=== PATIENT | male | born 1930 | race Asian ===

== ENCOUNTER 2020-08-02 21:22 | Inpatient (IN) | payer MEDICARE, OTHER ==
[~2020-08-02] VITALS: Ht 162.6 cm; Wt 66.7 kg
--- NOTE | 2020-08-02 00:56 | NUR ---
NURSE NOTES: received pt from Halima ARGUELLES., pt is awake and drowsy at this time. AOx1. provided new gown, new blanket. bus driver/monitor is on, pt shows SR at this time. pt is on 6L of non-breather mask O2sat is at 100%.AC 18G right wrist 20G, left AC 22G intact, clean, and patent. ABD soft, round, and non-tender. springer cath is draining well with gravity, no active bleeding noted. call light within reach. will continue to monitor pt with plan of care. bed at the lowest position, alarmed, and locked. Addendum: 08/03/20 at 0752 by SVETLANA LEAL RN wrong time
--- NOTE | 2020-08-02 21:30 | NUR ---
ED Nurse Note: Patient brought in by ambulance RA 26 from [facility] with c/o desaturation at 89%. Pt placed on NRB at 10L upon coming in satting 98% and was warm to touch. Patient has IV access left hand g22 inserted by EMS. Patient is AAOX0, with FCTUB, pt reponds to pain. Pt has no polst, no covid test done recently. Patient placed on iso/monitor bed.
--- NOTE | 2020-08-02 21:37 | Emergency Room Report ---
History of Present Illness General Chief Complaint: Dyspnea/Respdistress Source: EMS (Tai Piña MD) Present Illness HPI Disclaimer: Please note that this report is being documented using [employer] technology. This can lead to erroneous entry secondary to incorrect inter pretation by the dictating instrument. HPI: 89-year-old male presents from [facility] for evaluation of hypoxia. History of BPH, hypertension, Parkinson's, anemia, chronic urinary retention. Patient found hypoxic saturating in the 80s with increased work of breathing. Per PMD, tested negative for COVID-19 on 07/23. Cannot obtain any information from patient at this time. He was placed on nonrebreather 15 L by EMS improved saturations. Noted fever at nursing facility 101 degrees. He is warm to the touch. No vomiting reported. PMH: Parkinson's, BPH, hypertension, anemia PSH: Unable to obtain from patient Allergies: Unable to obtain from patient Social Hx: Unable to obtain from patient (Tai Piña MD) Allergies: Coded Allergies: No Known Allergies (Unverified , 08/02/20) COVID-19 Screening Contact w/high risk pt: Yes Experienced COVID-19 symptoms?: Yes COVID-19 Testing performed PRESS OPERATOR MEAT: No - unk COVID-19 Screening: PUI COVID-19 COVID-19 Testing Source: unk (Tai Piña MD) Review of Systems All Other Systems: negative except mentioned in HPI (Tai Piña MD) Physical Exam Vital Signs Date Time Temp Pulse Resp B/P (MAP) Pulse Ox O2 Delivery O2 Flow Rate FiO2 08/02/20 21:26 100.0 98 22 105/62 (76) 89 Room Air General: Awake, lethargic, nonverbal, arrives on nonrebreather HEENT: NC/AT. EOMI. Cardiovascular: Tachycardic Resp: Tachypnea mild increased work of breathing. Saturating 1% on 15 L nonrebreather. Abdomen: Abdomen is soft, nondistended. : Presents with Overton catheter Skin: Intact. No abrasions, laceration or rash over the exposed skin MSK: Frail appearing. Decreased bulk diffusely Neuro: Awake, somnolent and lethargic (Tai Piña MD) Medical Decision Making Diagnostic Impression: Primary Impression: Hypoxia Additional Impressions: Pneumonia UTI (urinary tract infection) Sepsis AMS (altered mental status) ER Course Is an 89-year-old male presenting for evaluation of hypoxia. Differential includes was not limited to pneumonia, bronchitis, pneumothorax, sepsis, COVID-1 9 infection, influenza, UTI, pyelonephritis, obstruction, among others. Broad labs, cultures ordered. IV fluids, rapid COVID-19 and influenza swabs as well as chest imaging. Patient will require admission. Called nursing facility, they have no POLST form for the patient and therefore is considered a full code. EKG on arrival is nonischemic. Chest x-ray concerning for right lower lobe pneumonia. Broad spectrum antibiotics given. Patient will be admitted to SDU by this PMD, Dr. Herman. (Tai Piña MD) ER Course Total critical care time: Approximately 45 minutes Due to a high probability of clinically significant, life threatening deterioration, the patient required the highest level of preparedness to intervene emergently and I personally spent this critical care time directly and personally managing the patient. This critical care time included obtaining a history, examining the patient, pulse oximetry, ordering and reviewing studies, ordering treatments, evaluating response to treatment and updating management plan as needed, frequent reassessment and discussion with other providers as well as arranging for ultimate disposition. This critical to care time was performed to assess and manage the high probability of life-threatening deterioration that could result in multiorgan failure. This critical care time is separate from the separately billable procedures and treating other patients. 89-year-old male here with hypoxia and low blood pressure. Patient was signed o ut to me by previous physician Dr. Piña. Patient initially had a low blood pressure with map of around 55. 30 cc/kg fluid bolus was initiated. Patient soon had resolution of his hypotension and tachycardia. He was found to have a right lower lobe pneumonia. He was also found to have urinary tract infection. Vancomycin and Zosyn were started soon after arrival to the emergency department. Blood cultures obtained and currently pending. Urine cultures pending. Patient was found of a leukocytosis. He had a normal oxygen saturation on 10 L nonrebreather. Throughout his stay in the emergency department he gradually had improvement of his mental status. Patient admitted to stepdown unit. Laboratory Tests Test 08/02/20 21:30 08/02/20 21:45 08/02/20 22:15 Arterial Blood pH 7.397 (7.350-7.450) Arterial Blood Partial Pressure CO2 43.7 mmHg (35.0-45.0) Arterial Blood Partial Pressure O2 283.3 mmHg (75.0-100.0) H Arterial Blood HCO3 26.3 mmol/L (22.0-26.0) H Arterial Blood Oxygen Saturation 99.3 % (95-100) Arterial Blood Base Excess 1.2 (-2-2) Emile Test Positive Urine Color Yellow Urine Appearance Very cloudy Urine pH 6 (4.5-8.0) Urine Specific [place] 1.015 (1.005-1.035) Urine Protein 3+ (NEGATIVE) H Urine Glucose (UA) Negative (NEGATIVE) Urine Ketones 1+ (NEGATIVE) H Urine Blood 5+ (NEGATIVE) H Urine Nitrite Negative (NEGATIVE) Urine Bilirubin 1+ (NEGATIVE) H Urine Ictotest Negative (NEGATIVE) Urine Urobilinogen 8 MG/DL (0.0-1.0) H Urine Leukocyte Esterase 3+ (NEGATIVE) H Urine RBC Tntc /HPF (0 - 0) H Urine WBC 10-15 /HPF (0 - 0) H Urine Squamous Epithelial Cells Occasional /LPF Urine Bacteria Moderate /HPF (NONE) H Sodium Level 127 MMOL/L (136-145) L Potassium Level 4.4 MMOL/L (3.5-5.1) Chloride Level 95 MMOL/L (98-107) L Carbon Dioxide Level 28 MMOL/L (21-32) Anion Gap 4 mmol/L (5-15) L Blood Urea Nitrogen 30 mg/dL (7-18) H Creatinine 1.0 MG/DL (0.55-1.30) Estimated Glomerular Filtration Rate > 60 mL/min (>60) Glucose Level 165 MG/DL (74-106) H Lactic Acid Level 1.90 mmol/L (0.4-2.0) Calcium Level 8.3 MG/DL (8.5-10.1) L Phosphorus Level 3.2 MG/DL (2.5-4.9) Magnesium Level 2.0 MG/DL (1.8-2.4) Ferritin 382 NG/ML (8-388) Total Bilirubin 0.6 MG/DL (0.2-1.0) Aspartate Amino Transferase (AST) 18 U/L (15-37) Alanine Aminotransferase (ALT) 9 U/L (12-78) L Alkaline Phosphatase 70 U/L (46-116) Lactate Dehydrogenase 195 U/L (81-234) Total Creatine Kinase 49 U/L (26-308) Creatine Kinase MB 0.5 NG/ML (0.0-3.6) Creatine Kinase MB Relative Index 1.0 Troponin I 0.049 ng/mL (0.000-0.056) C-Reactive Protein, Quantitative 6.7 mg/dL (0.00-0.90) H Pro-B-Type Natriuretic Peptide 199 pg/mL (0-125) H Total Protein 7.1 G/DL (6.4-8.2) Albumin 2.8 G/DL (3.4-5.0) L Globulin 4.3 g/dL Albumin/Globulin Ratio 0.7 (1.0-2.7) L Lipase 91 U/L (73-393) White Blood Count 16.1 K/UL (4.8-10.8) H Red Blood Count 3.90 M/UL (4.70-6.10) L Hemoglobin 12.1 G/DL (14.2-18.0) L Hematocrit 36.3 % (42.0-52.0) L Mean Corpuscular Volume 93 FL (80-99) Mean Corpuscular Hemoglobin 31.0 PG (27.0-31.0) Mean Corpuscular Hemoglobin Concent 33.3 G/DL (32.0-36.0) Red Cell Distribution Width 12.1 % (11.6-14.8) Platelet Count 278 K/UL (150-450) Mean Platelet Volume 7.6 FL (6.5-10.1) Neutrophils (%) (Auto) % (45.0-75.0) Lymphocytes (%) (Auto) % (20.0-45.0) Monocytes (%) (Auto) % (1.0-10.0) Eosinophils (%) (Auto) % (0.0-3.0) Basophils (%) (Auto) % (0.0-2.0) Neutrophils % (Manual) Pending Lymphocytes % (Manual) Pending Platelet Estimate Pending Platelet Morphology Pending Prothrombin Time 12.0 SEC (9.30-11.50) H Prothrombin Time INR 1.1 (0.9-1.1) Activated Partial Thromboplast Time 27 SEC (23-33) D-Dimer 1.89 mg/L FEU (0.00-0.49) H Microbiology Date/Time Source Procedure Growth Status 08/02/20 21:44 Nasopharynx SARS-CoV-2 RdRp Gene Assay - Final Complete (Kayden Galicia M.D.) EKG Diagnostic Results Troponin ordered: Yes When was troponin ordered?: Aug 02, 2020 EKG Time: 21:28 Rate: tachycardiac Rhythm: NSR ST Segments: no acute changes Other Impression Sinus tachycardia, normal axis, normal intervals, QTC 439 ms. Nonspecific T wave flattening. No ST elevation (Tai Piña MD) Rhythm Strip Diag. Results Rhythm Strip Time: 21:28 EP Interpretation: yes Rate: 98 Rhythm: NSR, no PVC's, no ectopy (Tai Piña MD) Chest X-Ray Diagnostic Results Chest X-Ray Diagnostic Results : Chest X-Ray Ordered: Yes # of Views/Limited/Complete: 1 View Indication: Shortness of Breath EP Interpretation: Yes Interpretation: no effusion, no pneumothorax, other - Right lower lobe infiltrate consistent with pneumonia. No effusion or pneumothorax Impression: Other - Right lower lobe pneumonia Electronically Signed by: Electronically signed by Dr. Tai Piña MD (Tai Piña MD) Last Vital Signs Date Time Temp Pulse Resp B/P (MAP) Pulse Ox O2 Delivery O2 Flow Rate FiO2 08/02/20 21:26 100.0 98 22 105/62 (76) 89 Room Air (Tai Piña MD) Disposition: ADMITTED INPATIENT Condition: Serious Tai Piña MD Aug 02, 2020 21:37 Kayden Galicia M.D. Aug 02, 2020 23:11
--- NOTE | 2020-08-02 21:43 | NUR ---
Spoke with BLANE Burton at [facility]; Josephine has no polst for pt, does not have covid resut. Per Josephine, covid and flu was collected 08/02, pending results. Josephine will fax over NOV.
[2020-08-02] MEDS ORDERED: Acetaminophen 650 MG SUPP RECTAL ONE (21:45)
[2020-08-02] MEDS ORDERED: Piperacillin/Tazobactam 3.375 GM in NS 110 ML IVPB ONE (21:45)
[2020-08-02 22:00] VITALS: BP 102/62
[2020-08-02] MEDS ORDERED: Vancomycin 1 GM in NS 275 ML IVPB ONE (22:00)
--- NOTE | 2020-08-02 22:00 | NUR ---
ED Nurse Note: Blood, culture and swab sent to lab
[2020-08-02] MEDS ORDERED: MULTIVITAMINS1 EAC2 ORAL (22:02)
[2020-08-02] MEDS ORDERED: NAMENDA10 MG ORAL (22:03)
[2020-08-02] MEDS ORDERED: PROSCAR5 MG ORAL (22:03)
[2020-08-02] MEDS ORDERED: SINGULAIR10 MG ORAL (22:04)
[2020-08-02] MEDS ORDERED: vit d2 (22:06)
[2020-08-02] MEDS ORDERED: FLOMAX0.4 MG ORAL (22:07)
[2020-08-02] MEDS ORDERED: SPIRONOLACTONE50 MG ORAL (22:07)
[2020-08-02 22:08] LABS: ANION GAP 4 mmol/L (5-15); BLOOD UREA NITROGEN 30 mg/dL (7-18); CALCIUM 8.3 MG/DL (8.5-10.1); CARBON DIOXIDE 28 MMOL/L (21-32); CHLORIDE 95 MMOL/L (98-107); POTASSIUM 4.4 MMOL/L (3.5-5.1); SODIUM 127 MMOL/L (136-145)
[2020-08-02] MEDS ORDERED: VITAMIN C250 MG ORAL (22:08)
--- NOTE | 2020-08-02 22:08 | Diagnostic Imaging Report ---
EXAM: XR Chest, 1 View CLINICAL HISTORY: SOB TECHNIQUE: Frontal view of the chest. COMPARISON: No relevant prior studies available. FINDINGS: Lungs: Right lower lobe consolidation consistent with pneumonia. Calcified granulomas at the left mid and upper lung measuring up to 5 mm. Pleural space: Unremarkable. No pneumothorax. Heart: Unremarkable. No cardiomegaly. Mediastinum: Unremarkable. Bones/joints: Degenerative changes in the thoracic spine. IMPRESSION: Right lower lobe pneumonia.
[2020-08-02] MEDS ORDERED: ACETAMINOPHEN500 M5 ORAL (22:10)
[2020-08-02] MEDS ORDERED: SENOKOT8.6 MG PO (22:12)
[2020-08-02] MEDS ORDERED: DOCUSATE SODIU100 MG ORAL (22:12)
[2020-08-02 22:13] LABS: APPEARANCE,URINE VERY CLOUDY; BILIRUBIN, URINE 1+ (NEGATIVE); GLUCOSE, URINE (UA) NEGATIVE (NEGATIVE); KETONES,URINE 1+ (NEGATIVE); LEUKOCYTE ESTERASE ,URINE 3+ (NEGATIVE); NITRITE,URINE NEGATIVE (NEGATIVE); PH,URINE 6 (4.5-8.0); PROTEIN,URINE 3+ (NEGATIVE); UROBILINOGEN,URINE 8 MG/DL (0.0-1.0)
--- NOTE | 2020-08-02 22:15 | NUR ---
ED Nurse Note: Xray done
[2020-08-02 22:19] LABS: COLOR,URINE YELLOW
[2020-08-02 22:20] LABS: ALANINE AMINOTRANSFERASE 9 U/L (12-78); ALBUMIN 2.8 G/DL (3.4-5.0); ALBUMIN/GLOBULIN RATIO 0.7 (1.0-2.7); ALKALINE PHOSPHATASE 70 U/L (46-116); ASPARTATE AMINO TRANSFERASE 18 U/L (15-37); BILIRUBIN,TOTAL 0.6 MG/DL (0.2-1.0); CKMB 0.5 NG/ML (0.0-3.6); CREATINE KINASE 49 U/L (26-308); FERRITIN 382 NG/ML (8-388); LACTATE DEHYDROGENASE 195 U/L (81-234); PHOSPHORUS 3.2 MG/DL (2.5-4.9)
[2020-08-02 22:33] LABS: HEMATOCRIT 36.3 % (42.0-52.0); HEMOGLOBIN 12.1 G/DL (14.2-18.0); MEAN CORPUSCULAR VOLUME 93 FL (80-99); PLATELET COUNT 278 K/UL (150-450); RED CELL DISTRIBUTION WIDTH 12.1 % (11.6-14.8); WHITE BLOOD COUNT 16.1 K/UL (4.8-10.8)
--- NOTE | 2020-08-02 22:45 | NUR ---
ED Nurse Note: Levophed on hold by MICHELLE. Bp at 102/62
[2020-08-02 22:54] LABS: INR 1.1 (0.9-1.1)
--- NOTE | 2020-08-02 23:07 | NUR ---
Report given to BLANE Feliciano for continuity of care.
--- NOTE | 2020-08-02 23:08 | NUR ---
ED Nurse Note: Spoke to pts grand daughter LORNEA and gave an update
--- NOTE | 2020-08-02 23:56 | NUR ---
NURSE NOTES: received pt from Halima ARGUELLES., pt is awake and drowsy at this time. AOx1. provided new gown, new blanket. planer chain offbearer is on, pt shows SR at this time. pt is on 6L of non-breather mask O2sat is at 100%.AC 18G right wrist 20G, left AC 22G intact, clean, and patent. ABD soft, round, and non-tender. springer cath is draining well with gravity, no active bleeding noted. call light within reach. will continue to monitor pt with plan of care. bed at the lowest position, alarmed, and locked.
[2020-08-03] VITALS: BP 99/48
[2020-08-03] MEDS ORDERED: ADVAIR HFA 230-12 GM INH (00:30)
[2020-08-03] MEDS ORDERED: BISACODYL5 MG RECTAL (00:30)
[2020-08-03] MEDS ORDERED: SINEMET 25-1001 EAC1 ORAL (00:30)
--- NOTE | 2020-08-03 00:30 | NUR ---
NURSE NOTES: left voice mail to Dr. Herman regarding admission order. will wait for call back.
--- NOTE | 2020-08-03 00:42 | NUR ---
NURSE NOTES: spoke with Chapin ARGUELLES., from [facility], and cleared PNA and flu shot.
[2020-08-03] MEDS: Albuterol/Ipratropium 3ml neb HHN SCH ×4 (01:15→19:52)
[2020-08-03] MEDS ORDERED: Acetaminophen 650 MG SUPP RECTAL PRN (01:15)
--- NOTE | 2020-08-03 03:00 | Consultation ---
DATE OF CONSULTATION: 08/02/2020 CARDIOLOGY CONSULTATION CONSULTING PHYSICIAN: Sarkis Herman MD REQUESTING PHYSICIAN: Chavez Gilmore MD REASON FOR CONSULTATION: Shock. HISTORY OF PRESENT ILLNESS: This 89-year-old male, who resides at a halfway facility was noted to be short of breath and transported to the emergency room for evaluation by 911. The patient was hypoxic and apparently had been well until this evening. Under routine COVID-19 testing, the patient was found negative approximately 1 week ago. In the emergency room, the patient was noted to be febrile and hypotensive. He was placed on high-flow oxygen mask, pancultured, started on antimicrobials and volume resuscitated with pressor support on standby. I have been asked to assist with further cardiovascular care. PAST MEDICAL HISTORY: Includes cerebrovascular disease, dementia, Parkinson disease, chronic anemia, hypertension, prostatic hypertrophy, history of urinary retention, osteoarthritis. ALLERGIES: None. MEDICATIONS: Reviewed and reconciled. FAMILY HISTORY: Not known. SOCIAL HISTORY: No prior record of smoking, alcohol, or substance abuse. Presently, resides at a halfway facility. No advanced directives available. REVIEW OF SYSTEMS: Cannot be reliably obtained from the patient. Pertinent data from halfway home charts are reviewed and outlined above. The case was also reviewed with staff at the halfway facility. PHYSICAL EXAMINATION: VITAL SIGNS: Temperature 100 rectally, blood pressure 105/62, heart rate 98, respiratory 22, oxygen saturation on room air was 89%. HEENT: Conjunctiva pink. Sclerae are anicteric. Oropharynx clear. Mucous membranes dry. NECK: Supple. Accessory muscle use noted. LUNGS: With bilateral rhonchi. No wheezing. Scattered rales at the right. CARDIAC: Regular rhythm. Rapid rate. Normal S1, S2. There is no appreciable murmur, but exam is limited due to respiratory sounds. ABDOMEN: Soft, nontender. EXTREMITIES: No clubbing, cyanosis. No edema. Overton catheter intact. SKIN: Without rash or decubitus. NEUROLOGIC: Reveals him to be alert, withdrawn, lethargic with increased tone and rigidity. LABORATORY DATA: ABG 7.40, 44, 283 on a high-flow mask. Urinalysis with too numerous to count red cells, 10 to 15 white cells, and 3+ leukocyte esterase. Sodium 127, potassium 4.4, chloride 95, bicarb 28, BUN 30, creatinine 1, glucose 165. Lactic acid normal at 1.9. Magnesium 2.0. Troponin 0.049. White count is 16.1 and hemoglobin 12.1 with platelet count of 278,000. Chest x-ray, right lower lobe infiltrate and EKG with sinus tachycardia, nonspecific T-wave changes. COVID-19 swab is negative. IMPRESSION: 1. Acute respiratory failure with hypoxia. 2. Healthcare-associated pneumonia. 3. Complicated urinary tract infection with chronic indwelling Overton catheter. 4. Sepsis with shock. 5. Hyponatremia. 6. Hypovolemia. 7. Underlying cerebrovascular disease with aspiration risk. 8. Acute myocardial ischemia. 9. Sinus tachycardia. 10. Hypoxia. 11. History of Parkinson disease. 12. Prostatic hypertrophy with chronic urinary retention. Condition, critical. Prognosis is guarded. PLAN: 1. Additional volume resuscitation with isotonic saline. If blood pressure parameters failed to respond adequately, pressors can be considered. 2. Panculture. 3. Respiratory hygiene. 4. Broad-spectrum antimicrobials. 5. DVT prophylaxis. 6. Oxygenation with high-flow mask and taper as able. 7. Hold diuretics. 8. We will follow serial troponin levels have been ordered as well. Sarkis Herman M.D. DR: KENZIE JOB#: [id number] CC:
[2020-08-03 04:00] VITALS: BP 148/88
[2020-08-03] MEDS: Piperacillin/Tazobactam 3.375 GM in NS 110 ML IVPB SCH ×3 (05:35→21:15)
[2020-08-03 05:55] LABS: HEMATOCRIT 37.4 % (42.0-52.0); MEAN CORPUSCULAR VOLUME 99 FL (80-99); PLATELET COUNT 257 K/UL (150-450); RED CELL DISTRIBUTION WIDTH 12.4 % (11.6-14.8); WHITE BLOOD COUNT 20.3 K/UL (4.8-10.8)
--- NOTE | 2020-08-03 06:12 | NUR ---
NURSE NOTES: left voice mail to DR. Herman regarding bilateral soft wrist restrain order. pt is pulling out all the IVs, and venturi mask at this time. call light within reach. will continue to monitor pt.
[2020-08-03 06:47] LABS: ALANINE AMINOTRANSFERASE 16 U/L (12-78); ALBUMIN 2.4 G/DL (3.4-5.0); ALBUMIN/GLOBULIN RATIO 0.6 (1.0-2.7); ALKALINE PHOSPHATASE 64 U/L (46-116); ANION GAP 7 mmol/L (5-15); ASPARTATE AMINO TRANSFERASE 23 U/L (15-37); BILIRUBIN,TOTAL 0.5 MG/DL (0.2-1.0); BLOOD UREA NITROGEN 24 mg/dL (7-18); CARBON DIOXIDE 26 MMOL/L (21-32); CHLORIDE 101 MMOL/L (98-107); SODIUM 134 MMOL/L (136-145)
--- NOTE | 2020-08-03 07:00 | NUR ---
NURSE NOTES: left voice mail to Dr. Barton regarding elevated WBC 10.3 sodium 134 calcium 8.0 and pt output was only 200ml per shift superintendent caustic cresylate. made Dr. Barton aware bladder scan done and shows 170ml. also will wait for restrain order. call light within reach.,
--- NOTE | 2020-08-03 07:32 | NUR ---
NURSE HAND-OFF REPORT: Important Events on Shift:[elevated WBC, pt's disruptive action, low urine output, ST eval today] Patient Status: [stable] Diet: [per doc order] Pending Orders: [stable] Pending Results/Labs:[n/a] Pending MD notification:[n/a] Latest Vital Signs: Temperature 97.8 , Pulse 101 , B/P 148 /88 , Respiratory Rate 18 , O2 SAT 100 , Non-Rebreather, O2 Flow Rate 8.0 . Vital Sign Comment: [stable] EKG Rhythm: Sinus Tachycardia Rhythm change?: N MD Notified?: -Dr.Kattan KURTZ Response: Latest José Fall Score: 75 Fall Risk: High Risk Safety Measures: Call light Within Reach, Bed Alarm Zone 3, Side Rails Side Rails x3, Bed position Low and Locked. Fall Precautions: Yellow Socks Yellow Gown Door Sign Patient Fall Education Report given to [Mitchell ARGUELLES].
--- NOTE | 2020-08-03 07:33 | NUR ---
NURSE NOTES: Received report from Germaine Gutierres RN. Patient in bed resting, no active s/s cardiac, respiratory distress noticed at this time. Patient AOx0, restlessness, confused. Patient SR with HR 86. Patient on venturi mask 8L fio2 40%. Pending ST evaluation at this time. Patient on Overton Catheter, patient is pulling Overton Cath. IV on right AC 18G, asymptomatic, patent, intact. Endorsed need of sputum collection. Bed in lowest position, side rails upx3, call light within reach, bed alarm on, Will continue to monitor.
--- NOTE | 2020-08-03 07:41 | NUR ---
NURSE NOTES: Patient pulled out IVs, oxygen, pulling Overton. Per Dr. Gilmore, bilateral soft wrist restraints on. Order noted, entered, carried out. Cap refill <3 sec, able to move, patient restlessness, unable to follow command.
--- NOTE | 2020-08-03 07:56 | NUR ---
NURSE NOTES: Dr. Gilmore made aware of elevation of troponin today 0.049 to 0.057. No new order received at this time. Will continue to monitor.
[2020-08-03 08:00] VITALS: BP 118/68
[2020-08-03] MEDS: Levodopa/Carbidopa 25/100 tab ORAL SCH ×3 (08:21→17:01)
[2020-08-03] MEDS: Heparin 5000 units/ml inj SUBQ SCH ×2 (08:21→20:16)
--- NOTE | 2020-08-03 08:49 | NUR ---
RD ASSESSMENT & RECOMMENDATIONS SEE CARE ACTIVITY FOR COMPLETE ASSESSMENT DAILY ESTIMATED NEEDS: Needs based on Underweight, pulmonary/ 45kg 30-35 kcals/kg 1447-4957 total kcals 1-1.5 g protein/kg 45-68 g total protein 25-30 mL/kg 0092-0765 total fluid mLs NUTRITION DIAGNOSIS: Increased kcal/prot needs R/T underweight status, pulmonary status as evidenced by pt @ 73% IBW, w/ BMI of 16.5, low BMI per guidelines, h/o COPD, on venturi mask. CURRENT DIET:KATIE, pureed moist PO DIET RECOMMENDATIONS: Liberalized regular w/ poor PO (texture per TAX MAP TECHNICIAN) ADDITIONAL RECOMMENDATIONS: * Wt @ SNF on 07/2948=[id number], vs current EMR wt of 99lbs suspected recent wt loss? -> rec daily calibrated bedscale wt, monitor wt trend * Ensure Enlive TID w/ meals * MVI x 1 * Monitor PO intake and tolerance, consider appetite stimulant
--- NOTE | 2020-08-03 10:50 | NUR ---
NURSE NOTES: COVID 2nd swab done, sent to lab per Dr. Gilmore.
[2020-08-03 12:00] VITALS: BP 131/59
--- NOTE | 2020-08-03 13:15 | NUR ---
NURSE NOTES: Patient restlessness, unable to follow command, high risk of aspiration, PO med not given.
--- NOTE | 2020-08-03 15:04 | NUR ---
NURSE NOTES: Paged Dr. Herman regarding 23 beats of NSVT, awaiting for callback. BP 109/52 HR 96, no s/s cardiac, respiratory distress noticed at this time, Will continue to monitor.
--- NOTE | 2020-08-03 15:10 | NUR ---
NURSE NOTES: Patient c/o full bladder, Overton Catheter removed and replaced per Dr. Gilmore.
[2020-08-03 16:00] VITALS: BP 109/52
--- NOTE | 2020-08-03 16:38 | NUR ---
Speech Pathology Note (Bedside Dysphagia Evaluation) Recent History: 07/23/2020~07/28/2020: (Hospitalization at [facility]) 1. Progressive decline in function with aspiration signs with thin liquid and failure to thrive Video swallow and Video esophagram: " premature spillage to pyriform sinuses and penetration to the level of true vocal folds noted 2. 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 3. UTI 07/28/2020~08/02/2020: ([facility]): PO diet mechanical soft chopped and thin liquid diet Brief Note: Mr. Zarate is an 89 year old male presents with dyspnea at [facility] and subsequently taken to ED [facility] on 08/02/2020. He was found to be concerning for aspiration pneumonia with hypoxemia 89% ORA, leukocytosis 16k, CXR RLL infiltrate with dysphagia as described in videoesophagram report from [facility]. This hospital course, the leukocytosis elevated to 20k, with higher O2 support required. Findings: Mr. Zarate is alert and presents with disorientation. He follows simple commands. Given him PO with pureed, nectar thick, he had delay cough. On thin liquid, he coughed immediately. He is high risk of aspiration. 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 This could be one of source of progressive dysphagia with aspiration as well as PD. Addendum: 08/03/20 at 1658 by MJ OLIVA MILL TENDER WARM UP 1. moderate to severe oropharyngeal dysphagia - High aspiration risk Plan: NPO for now until he recovers from aspiration pneumonia with concerning septic shock Mj Oliva
--- NOTE | 2020-08-03 17:01 | NUR ---
NURSE NOTES: Per ST Gabriel, unsafe to administer PO med, PO med on hold.
--- NOTE | 2020-08-03 18:00 | History and Physical Report ---
DATE OF ADMISSION: 08/02/2020 CHIEF COMPLAINT: Shortness of breath. HISTORY OF PRESENT ILLNESS: The patient is an 89-year-old male with a history of hypertension, dementia, recurrent urinary tract infections, and falls. The [facility] with complaints of shortness of breath. The patient is currently confused and is unable to provide any history. He was apparently hospitalized at an outside hospital a week ago after a fall and urinary tract infection. He had been [facility]cing at a [facility] for several days, but developed worsening shortness of breath and was transferred to the emergency room. On evaluation there, he required a Venturi mask for hypoxemia. His x-ray showed right lower lobe pneumonia. His rapid COVID test was negative. He is now admitted for further evaluation and care. PAST MEDICAL HISTORY: As above. PAST SURGICAL HISTORY: Unknown. CURRENT MEDICATIONS: Reconciled and reviewed. ALLERGIES: None. FAMILY HISTORY: Unknown. SOCIAL HISTORY: There is no known history of tobacco, ethanol, or drugs. REVIEW OF SYSTEMS: From the patient is unobtainable as he is confused. PHYSICAL EXAMINATION: VITAL SIGNS: Temperature 98, pulse 73, respirations 20, and blood pressure 118/68. The patient is saturating 100% on 8 liters of Venturi mask. GENERAL: The patient is thin, elderly, in no apparent distress. HEENT: Head is normocephalic and atraumatic. Sclerae are anicteric. Oropharynx is clear. Mucous membranes are dry. NECK: Supple. HEART: Regular rate and rhythm. LUNGS: Significant for scattered rhonchi. ABDOMEN: Soft, nontender, nondistended. EXTREMITIES: Without clubbing, cyanosis, or edema. NEUROLOGIC: The patient is unable to comply with neurologic exam. LABORATORY DATA: UA showed 10 to 15 wbc's. White count was 16,000. Sodium was 127, potassium 4.4. Troponin was 0.057. UA showed 15 wbc's. ASSESSMENT: This is an 89-year-old male with a history of dementia, hypertension, recurrent falls, and urinary tract infection, admitted with complaints of hypoxemia, suspect secondary to aspiration. PLAN: 1. Supplemental oxygen. 2. Broad spectrum IV antibiotics. 3. Monitor chest x-ray. 4. Repeat COVID PCR. 5. Cardiology, Pulmonary, and Infectious Disease consultations to be obtained. 6. Continue outpatient cardiac regimen. 7. Continue DVT and stress prophylaxes. 8. Plan of care was discussed with the patient's family. Chavez Gilmore M.D. DR: RAZIA JOB#: [id number] CC:
--- NOTE | 2020-08-03 19:11 | NUR ---
NURSE HAND-OFF REPORT: Important Events on Shift: Overton inserted, Patient pulled out IV x3, Soft wrist restraints, 23 beats of NSVT, Made aware Patient Status: stable Diet: Low Sodium diet, per ST NPO recommended Pending Orders: na Pending Results/Labs:na Pending notification:na Latest Vital Signs: Temperature 98.6 , Pulse 99 , B/P 109 /52 , Respiratory Rate 17 , O2 SAT 100 , Venturi Mask, O2 Flow Rate 8.0 . Vital Sign Comment: stable EKG Rhythm: Sinus Rhythm Rhythm change?: N MD Notified?: -Dr.Kattan KURTZ Response: Latest José Fall Score: 75 Fall Risk: High Risk Safety Measures: Call light Within Reach, Bed Alarm Zone 2, Side Rails Side Rails x3, Bed position Low and Locked. Fall Precautions: Yellow Socks Yellow Gown Door Sign Patient Fall Education Report given to BLANE Caban.
--- NOTE | 2020-08-03 19:52 | NUR ---
NURSE NOTES: unable to swallow medication- Flomax not administered- per endorsement- speech therapist recommends pt. to be NPO.
[2020-08-03 20:00] VITALS: BP 116/59
[2020-08-03] MEDS: Tamsulosin 0.4mg cap ORAL SCH (20:15)
[2020-08-03] MEDS: Vancomycin 1gm/D5W 275ml IVPB SCH ×2 (21:15)
--- NOTE | 2020-08-03 21:34 | NUR ---
NURSE NOTES: Received report from Milagros Elias, pt. in bed awake, with eyes open- appears to be confused, no signs or symptoms of acute cardiac or respiratory distress noted, bed alarm on, side rails up x's3 and safety brakes engaged, call light within easy reach, pt. appears to be sating well on current Venturi mask settings 8L fio2 at 40%- no distress noted, Overton intact and draining to gravity, pt. appears clean and dry, bilateral soft restraints removed- pulses palpable and skin intact- restraints reapplied, Rt. hand 22G IV intact and patent, safety measures continued, will continue with plan of care. Addendum: 08/04/20 at 1935 by CYNTHIA SERNA RN RN received report at 1917.
--- NOTE | 2020-08-03 23:30 | NUR ---
NURSE NOTES: bed bath given and linen changed, oral care provided, pt. appears to be sating well on current venturi mask settings-no distress noted, repositioned and turned pt., will continue to monitor pt. and with plan of care.
--- NOTE | 2020-08-03 23:56 | Cardiology Progress Note ---
Subjective DATE OF SERVICE: Aug 03, 2020 Still congested with SOB. Very confused. Labs noted. Monitor: sinus with non-sustained atrial ectopy. Objective Last 24 Hour Vital Signs Date Time Temp Pulse Resp B/P (MAP) Pulse Ox O2 Delivery O2 Flow Rate FiO2 08/03/20 20:34 101 08/03/20 20:00 98.1 88 18 116/59 (78) 100 08/03/20 20:00 8.0 40 08/03/20 20:00 Venturi Mask 8.0 08/03/20 19:52 98 Venturi Mask 8.0 40 08/03/20 19:52 101 18 100 Venturi Mask 8.0 40 99 18 98 08/03/20 16:00 98.6 63 17 109/52 (71) 100 08/03/20 16:00 99 08/03/20 16:00 8.0 40 08/03/20 16:00 Venturi Mask 8.0 08/03/20 13:10 104 20 100 Venturi Mask 8.0 40 102 20 99 08/03/20 12:00 Venturi Mask 8.0 08/03/20 12:00 97.1 103 19 131/59 (83) 99 08/03/20 12:00 97 08/03/20 12:00 8.0 40 08/03/20 09:09 87 20 100 Venturi Mask 8.0 40 84 20 99 08/03/20 08:00 100 08/03/20 08:00 8.0 40 08/03/20 08:00 98.0 73 20 118/68 (85) 100 08/03/20 08:00 Venturi Mask 8.0 08/03/20 07:02 99 Venturi Mask 8.0 40 08/03/20 04:00 8.0 40 08/03/20 04:00 Venturi Mask 8.0 08/03/20 04:00 97.8 101 18 148/88 (108) 100 08/03/20 01:31 98 Venturi Mask 8.0 40 08/03/20 00:32 77 08/03/20 00:00 Non-Rebreather 6.0 08/03/20 00:00 97.7 78 18 99/48 (65) 100 ROS: unchanged from my evaluation of 08/02/20 HEENT: normal ENT inspection RHYTHM: NSR, PACs LUNGS: bilateral rhonchi CARDIAC: normal rate, regular rhythm, normal S1 and S2, systolic murmur - 1/6 s ystolic murmurat apex ABDOMEN: normal bowel sounds, non tender, soft, no organomegaly EXTREMITIES: normal range of motion, trace edema Laboratory Tests Test 08/03/20 03:39 White Blood Count 20.3 K/UL (4.8-10.8) H Red Blood Count 3.80 M/UL (4.70-6.10) L Hemoglobin 12.0 G/DL (14.2-18.0) L Hematocrit 37.4 % (42.0-52.0) L Mean Corpuscular Volume 99 FL (80-99) Mean Corpuscular Hemoglobin 31.7 PG (27.0-31.0) H Mean Corpuscular Hemoglobin Concent 32.2 G/DL (32.0-36.0) Red Cell Distribution Width 12.4 % (11.6-14.8) Platelet Count 257 K/UL (150-450) Mean Platelet Volume 7.1 FL (6.5-10.1) Neutrophils (%) (Auto) % (45.0-75.0) Lymphocytes (%) (Auto) % (20.0-45.0) Monocytes (%) (Auto) % (1.0-10.0) Eosinophils (%) (Auto) % (0.0-3.0) Basophils (%) (Auto) % (0.0-2.0) Differential Total Cells Counted 100 Neutrophils % (Manual) 79 % (45-75) H Lymphocytes % (Manual) 2 % (20-45) L Monocytes % (Manual) 2 % (1-10) Eosinophils % (Manual) 0 % (0-3) Basophils % (Manual) 0 % (0-2) Band Neutrophils 17 % (0-8) H Platelet Estimate Adequate Platelet Morphology Normal Red Blood Cell Morphology Normal Sodium Level 134 MMOL/L (136-145) L Potassium Level 5.0 MMOL/L (3.5-5.1) Chloride Level 101 MMOL/L (98-107) Carbon Dioxide Level 26 MMOL/L (21-32) Anion Gap 7 mmol/L (5-15) Blood Urea Nitrogen 24 mg/dL (7-18) H Creatinine 1.0 MG/DL (0.55-1.30) Estimat Glomerular Filtration Rate > 60 mL/min (>60) Glucose Level 117 MG/DL (74-106) H Calcium Level 8.0 MG/DL (8.5-10.1) L Total Bilirubin 0.5 MG/DL (0.2-1.0) Aspartate Amino Transf (AST/SGOT) 23 U/L (15-37) Alanine Aminotransferase (ALT/SGPT) 16 U/L (12-78) Alkaline Phosphatase 64 U/L (46-116) Troponin I 0.057 ng/mL (0.000-0.056) Total Protein 6.5 G/DL (6.4-8.2) Albumin 2.4 G/DL (3.4-5.0) L Globulin 4.1 g/dL Albumin/Globulin Ratio 0.6 (1.0-2.7) L Thyroid Stimulating Hormone (TSH) 1.016 uiU/mL (0.358-3.740) Microbiology Date/Time Source Procedure Growth Status 08/02/20 23:15 Rectum Received 08/02/20 22:45 Nasal Nares - Final Complete 08/02/20 22:45 Nasal Nares - Final Complete 08/02/20 21:44 Nasopharynx SARS-CoV-2 RdRp Gene Assay - Final Complete Assessment/Plan Assessment/Plan Sepsis Healthcare acquired PNA Complicated UTI with indwelling catheter Hyponatremia Severe protein calorie malnutrition Acute myocardial ischemia Respiratory failure with hypoxia Hypovolemia Leukocytosis Sinus tachycardia CRITICAL & GUARDED Empiric antibiotics Serial troponins IVF DVT prophylaxis Saline hydration Titrate anti-anginal regimen; beta katya to be titrated once rehydrated. Sarkis Herman MD Aug 03, 2020 23:56
[2020-08-04] VITALS (8 sets, daily range): BP systolic 100–148; BP diastolic 54–75
[2020-08-04] MEDS: Albuterol/Ipratropium 3ml neb HHN SCH ×4 (01:15→19:32)
--- NOTE | 2020-08-04 02:00 | NUR ---
NURSE NOTES: oral care provided, pt. appears to be sating well on current BIPAP settings-sating at 100%, will continue to monitor pt. and with plan of care.
--- NOTE | 2020-08-04 03:45 | NUR ---
NURSE NOTES: per ophthalmic tech Araiza- rhythm strip showing SVT- heart rate 168- assessed pt.- monitor in room shows patients heart rate at 89- will do EKG- pt. is asymptomatic- no signs or symptoms of distress noted- EKG showing Sinus Tachycardia w/ short ND w/ premature supraventricular complexes- will notify MD in am- pt. remains stable- will continue to monitor pt. and with plan of care.
[2020-08-04] MEDS: Piperacillin/Tazobactam 3.375 GM in NS 110 ML IVPB SCH ×3 (05:01→21:17)
[2020-08-04 06:28] LABS: HEMOGLOBIN 11.1 G/DL (14.2-18.0); MEAN CORPUSCULAR VOLUME 96 FL (80-99); PLATELET COUNT 251 K/UL (150-450); RED BLOOD COUNT 3.53 M/UL (4.70-6.10)
[2020-08-04 07:22] LABS: ALANINE AMINOTRANSFERASE 20 U/L (12-78); ALBUMIN 2.2 G/DL (3.4-5.0); ALBUMIN/GLOBULIN RATIO 0.6 (1.0-2.7); ALKALINE PHOSPHATASE 61 U/L (46-116); ANION GAP 8 mmol/L (5-15); ASPARTATE AMINO TRANSFERASE 52 U/L (15-37); BILIRUBIN,TOTAL 0.5 MG/DL (0.2-1.0); BLOOD UREA NITROGEN 18 mg/dL (7-18); CALCIUM 7.8 MG/DL (8.5-10.1); CARBON DIOXIDE 23 MMOL/L (21-32); CHLORIDE 102 MMOL/L (98-107); CREATININE 0.7 MG/DL (0.55-1.30); POTASSIUM 3.3 MMOL/L (3.5-5.1); SODIUM 133 MMOL/L (136-145)
--- NOTE | 2020-08-04 07:26 | NUR ---
NURSE NOTES: Received report from Arsh ARGUELLES.
--- NOTE | 2020-08-04 07:31 | NUR ---
NURSE HAND-OFF REPORT: Important Events on Shift:pos SVT- EKG done - see chart ST Patient Status: fair Diet: NPO Pending Orders: Pending Results/Labs: Pending MD notification: Latest Vital Signs: Temperature 97.9 , Pulse 65 , B/P 115 /65 , Respiratory Rate 20 , O2 SAT 96 , Venturi Mask, O2 Flow Rate 8.0 . Vital Sign Comment: EKG Rhythm: Sinus Rhythm Rhythm change?: Y MD Notified?: N - MD Response: Latest José Fall Score: 75 Fall Risk: High Risk Safety Measures: Call light Within Reach, Bed Alarm Zone 2, Side Rails Side Rails x3, Bed position Low and Locked. Fall Precautions: Yellow Socks Yellow Gown Door Sign Patient Fall Education Report given to Rachael ARGUELLES, aware to f/u on any abnormal am labs- and regarding poss SVT- and EKG done but showing Sinus Tachycardia - pt. remains stable.
[2020-08-04] MEDS: Levodopa/Carbidopa 25/100 tab ORAL SCH ×3 (09:00→17:48)
[2020-08-04] MEDS: Heparin 5000 units/ml inj SUBQ SCH ×2 (09:31→20:47)
--- NOTE | 2020-08-04 09:33 | General Progress Note ---
Subjective ROS Limited/Unobtainable: Yes Constitutional: Reports: malaise, weakness HEENT: Reports: no symptoms Cardiovascular: Reports: no symptoms Respiratory: Reports: cough, shortness of breath Gastrointestinal/Abdominal: Reports: no symptoms Genitourinary: Reports: no symptoms Neurologic/Psychiatric: Reports: no symptoms Endocrine: Reports: no symptoms Hematologic/Lymphatic: Reports: no symptoms Allergies: Coded Allergies: No Known Allergies (Unverified , 08/02/20) All Systems: reviewed and negative except above Subjective no events. stable on venti mask. 2nd covid pending. labs noted. on iv abx. withdrawn/weak. Objective Last 24 Hour Vital Signs Date Time Temp Pulse Resp B/P (MAP) Pulse Ox O2 Delivery O2 Flow Rate FiO2 08/04/20 04:22 65 20 115/65 (82) 96 08/04/20 04:00 Venturi Mask 8.0 08/04/20 04:00 8.0 40 08/04/20 04:00 97.9 108 18 111/54 (73) 99 08/04/20 03:45 168 08/04/20 03:41 105 08/04/20 01:17 95 18 100 Venturi Mask 8.0 40 93 18 100 08/04/20 00:00 98.0 97 18 108/54 (72) 100 08/04/20 00:00 8.0 40 08/04/20 00:00 Venturi Mask 8.0 08/03/20 23:32 99 08/03/20 20:34 101 08/03/20 20:00 98.1 88 18 116/59 (78) 100 08/03/20 20:00 8.0 40 08/03/20 20:00 Venturi Mask 8.0 08/03/20 19:52 98 Venturi Mask 8.0 40 08/03/20 19:52 101 18 100 Venturi Mask 8.0 40 99 18 98 08/03/20 16:00 98.6 63 17 109/52 (71) 100 08/03/20 16:00 99 08/03/20 16:00 8.0 40 08/03/20 16:00 Venturi Mask 8.0 08/03/20 13:10 104 20 100 Venturi Mask 8.0 40 102 20 99 08/03/20 12:00 Venturi Mask 8.0 08/03/20 12:00 97.1 103 19 131/59 (83) 99 08/03/20 12:00 97 08/03/20 12:00 8.0 40 Intake and Output 08/03/20 08/04/20 19:00 07:00 Intake Total 1237.5 ml 1678.916 ml Output Total 800 ml 345 ml Balance 437.5 ml 1333.916 ml Intake IV Total 1237.5 ml 1678.916 ml Output Urine Total 800 ml 345 ml # Bowel Movements 2 1 Laboratory Tests 08/04/20 05:40: White Blood Count 20.0H, Red Blood Count 3.53L, Hemoglobin 11.1L, Hematocrit 34.0L, Mean Corpuscular Volume 96, Mean Corpuscular Hemoglobin 31.6H, Mean Corpuscular Hemoglobin Concent 32.7, Red Cell Distribution Width 12.0, Platelet Count 251, Mean Platelet Volume 7.6, Neutrophils (%) (Auto) , Lymphocytes (%) (Auto) , Monocytes (%) (Auto) , Eosinophils (%) (Auto) , Basophils (%) (Auto) , Differential Total Cells Counted 100, Neutrophils % (Manual) 96H, Lymphocytes % (Manual) 2L, Monocytes % (Manual) 2, Eosinophils % (Manual) 0, Basophils % (Manual) 0, Band Neutrophils 0, Platelet Estimate Adequate, Platelet Morphology Normal, Macrocytosis 1+, Sodium Level 133L, Potassium Level 3.3L, Chloride Level 102, Carbon Dioxide Level 23, Anion Gap 8, Blood Urea Nitrogen 18, Creatinine 0.7, Estimat Glomerular Filtration Rate > 60, Glucose Level 111H, Lactic Acid Level 1.30, Calcium Level 7.8L, Total Bilirubin 0.5, Aspartate Amino Transf (AST/SGOT) 52H, Alanine Aminotransferase (ALT/SGPT) 20, Alkaline Phosphatase 61, Troponin I 0.076H, Total Protein 6.1L, Albumin 2.2L, Globulin 3.9, Albumin/Globulin Ratio 0.6L Height (Feet): 5 Height (Inches): 5.00 Weight (Pounds): 99 General Appearance: WD/WN, confused, thin EENT: normal ENT inspection Neck: non-tender, normal alignment, supple Cardiovascular: normal rate, regular rhythm Respiratory/Chest: chest wall non-tender, lungs clear, normal breath sounds, no respiratory distress, no accessory muscle use Abdomen: normal bowel sounds, non tender, soft, no organomegaly Edema: no edema noted Arm (L), no edema noted Arm (R) Assessment/Plan Problem List: (1) Pneumonia ICD Codes: J18.9 - Pneumonia, unspecified organism SNOMED: 608091068 (2) Hypoxia ICD Codes: R09.02 - Hypoxemia SNOMED: 851318913 (3) AMS (altered mental status) ICD Codes: R41.82 - Altered mental status, unspecified SNOMED: 954303870 (4) UTI (urinary tract infection) ICD Codes: N39.0 - Urinary tract infection, site not specified SNOMED: 22512613 (5) Sepsis ICD Codes: A41.9 - Sepsis, unspecified organism SNOMED: 33288082 Status: stable, not improved Assessment/Plan: cont supplemental o2 titrate as needed iv abx per monitor cxr await repeat covid dvt/stress ulcer prophylaxis d/w family poc replace Chavez Mora MD Aug 04, 2020 09:33
[2020-08-04] MEDS ORDERED: NS 275ml ONE (14:26)
[2020-08-04] MEDS ORDERED: Tubing IV Secondary IV ONE (14:26)
--- NOTE | 2020-08-04 14:38 | NUR ---
NURSE NOTES: Called and spoke with Dr. Herman regarding A.fib with RVR x 1 episode non sustained with new orders to give Cardizem 20mg. IVP X 1 and bmp, mg today. Orders noted and carried out.
[2020-08-04] MEDS ORDERED: dilTIAZem HCl 25mg/5ml Inj IVP SCH ×2 (14:45→20:30)
[2020-08-04 15:55] LABS: ANION GAP 13 mmol/L (5-15); BLOOD UREA NITROGEN 18 mg/dL (7-18); CALCIUM 8.2 MG/DL (8.5-10.1); CARBON DIOXIDE 21 MMOL/L (21-32); CHLORIDE 102 MMOL/L (98-107); CREATININE 0.7 MG/DL (0.55-1.30); POTASSIUM 3.7 MMOL/L (3.5-5.1); SODIUM 136 MMOL/L (136-145)
--- NOTE | 2020-08-04 16:43 | NUR ---
NURSE NOTES: Called Dr. Gilmore and left message regarding x2 negative Covid19 result. Awaiting for response.
--- NOTE | 2020-08-04 16:46 | NUR ---
NURSE NOTES: Received a call back and ordered d/c isolation. Addendum: 08/04/20 at 1647 by LUTHER ANGUIANO RN, RN Droplet isolation.
--- NOTE | 2020-08-04 19:08 | NUR ---
NURSE HAND-OFF REPORT: Important Events on Shift: Episode of A.fib with RVR. Patient Status: remain stable. Diet: Pureed scot. Pending Orders: Pending Results/Labs: Pending MD notification: Latest Vital Signs: Temperature 98.1 , Pulse 77 , B/P 141 /72 , Respiratory Rate 19 , O2 SAT 97 , Venturi Mask, O2 Flow Rate 8.0 . Vital Sign Comment: EKG Rhythm: Sinus Rhythm Rhythm change?: N MD Notified?: Aly -Dr. Virgil KURTZ Response: Order Received& Read Back Latest José Fall Score: 75 Fall Risk: High Risk Safety Measures: Call light Within Reach, Bed Alarm Zone 2, Side Rails Side Rails x3, Bed position Low and Locked. Fall Precautions: Yellow Socks Yellow Gown Door Sign Patient Fall Education Report given to Arsh ARGUELLES.
--- NOTE | 2020-08-04 19:15 | NUR ---
NURSE NOTES: Received report from Milagros Cano, pt. in bed awake, with eyes open- appears to be confused, no signs or symptoms of acute cardiac or respiratory distress noted, bed alarm on, side rails up x's3 and safety brakes engaged, call light within easy reach, pt. appears to be sating well on current Venturi mask settings 8L fio2 at 40%- no distress noted, Overton intact and draining to gravity, pt. appears clean and dry, bilateral soft restraints removed- pulses palpable and skin intact- restraints reapplied, HOB elevated- aspiration precautions observed, Rt. hand 22G IV intact and patent running NS at 100cc/hr, safety measures continued, will continue with plan of care.
--- NOTE | 2020-08-04 19:50 | NUR ---
NURSE NOTES: unable to swallow medication- Flomax not administered- per endorsement- speech therapist recommends pt. to be NPO. Pt. at risk for aspiration.
--- NOTE | 2020-08-04 19:57 | NUR ---
NURSE NOTES: noted patients heart rate on monitor in 170's- assessed pt. - pt. appears to be asymptomatic- VS taken entered in chart. will do EKG/ f/u with
--- NOTE | 2020-08-04 19:58 | NUR ---
NURSE NOTES: EKG done- showing A fib w/RVR- will leave message for MD- will continue to monitor pt.
--- NOTE | 2020-08-04 19:59 | NUR ---
NURSE NOTES: Left detailed message for Dr. kay- also another message left by charge nurse BLANE Mendoza. Awaiting for call back from doctor.
[2020-08-04] MEDS: Tamsulosin 0.4mg cap ORAL SCH (20:00)
--- NOTE | 2020-08-04 20:21 | NUR ---
NURSE NOTES: orders received by charge nurse Kelly from doctor to do one time order of Cardizem IVP- will carry out orders.
--- NOTE | 2020-08-04 20:40 | NUR ---
NURSE NOTES: two IVs inserted for pt. as rt. hand 22G appears to be puffy-D/C IV- and inserted RT. AC 20G and RFA 20G- will continue to monitor pt. and with plan of care.
--- NOTE | 2020-08-04 20:45 | NUR ---
NURSE NOTES: Reassessed patients heart rate now 106- pt. appears to be resting comfortably- no signs or symptoms of acute distress noted. Will continue to monitor pt. and with plan of care.
[2020-08-04] MEDS: Vancomycin 1gm/D5W 275ml IVPB SCH ×2 (21:17)
--- NOTE | 2020-08-04 22:50 | NUR ---
NURSE NOTES: DR. kay calling to check pt. status- made him aware after Cardizem IVP - rhythm strip was done and pt. is A fib- asymptomatic- heart rate 122- but now on monitor is 88- per To notify him if occurs again but for now no new orders and he may put in some orders.
--- NOTE | 2020-08-04 23:30 | NUR ---
NURSE NOTES: bed bath given, linens changed, oral care provided, pt. appears to be sating well on current Venturi mask settings- sating at 96%- VS taken- pt. remains SR on monitor. Will continue to monitor pt. and with plan of care.
[2020-08-05] VITALS (7 sets, daily range): BP systolic 95–144; BP diastolic 53–85
--- NOTE | 2020-08-05 00:11 | Cardiology Progress Note ---
Subjective DATE OF SERVICE: Aug 04, 2020 Still congested with SOB. Very confused, but less agitated NPO due to aspiration risk Monitor: sinus with paroxysmal AFib with RVR Objective Last 24 Hour Vital Signs Date Time Temp Pulse Resp B/P (MAP) Pulse Ox O2 Delivery O2 Flow Rate FiO2 08/04/20 21:00 93 20 100/61 (74) 97 08/04/20 20:34 147 112/65 08/04/20 20:21 146 08/04/20 20:00 8.0 40 08/04/20 20:00 Venturi Mask 8.0 08/04/20 20:00 97.9 88 20 107/55 (72) 98 08/04/20 19:32 95 Venturi Mask 8.0 40 08/04/20 19:32 74 18 99 Venturi Mask 8.0 40 77 18 95 08/04/20 19:02 98.1 08/04/20 16:00 98.1 77 19 141/72 (95) 97 08/04/20 16:00 Venturi Mask 8.0 08/04/20 16:00 8.0 40 08/04/20 15:27 94 08/04/20 14:51 96 148/75 08/04/20 14:18 181 08/04/20 13:20 96 18 100 Venturi Mask 8.0 40 98 16 98 08/04/20 12:00 97.1 94 24 148/75 (99) 97 08/04/20 12:00 8.0 40 08/04/20 12:00 Venturi Mask 8.0 08/04/20 11:39 95 08/04/20 08:00 Venturi Mask 8.0 08/04/20 08:00 8.0 40 08/04/20 08:00 98.0 85 16 116/70 (85) 98 08/04/20 07:40 85 08/04/20 07:00 97 Venturi Mask 8.0 40 08/04/20 04:22 65 20 115/65 (82) 96 08/04/20 04:00 Venturi Mask 8.0 08/04/20 04:00 8.0 40 08/04/20 04:00 97.9 108 18 111/54 (73) 99 08/04/20 03:45 168 08/04/20 03:41 105 08/04/20 01:17 95 18 100 Venturi Mask 8.0 40 93 18 100 ROS: unchanged from my evaluation of 08/02/20 HEENT: normal ENT inspection RHYTHM: NSR, PACs LUNGS: bilateral rhonchi CARDIAC: normal S1 and S2, irregularly irregular, systolic murmur - 1/6 systolic murmurat apex, rapid rate ABDOMEN: normal bowel sounds, non tender, soft, no organomegaly EXTREMITIES: normal range of motion, trace edema Laboratory Tests Test 08/04/20 05:40 08/04/20 15:30 White Blood Count 20.0 K/UL (4.8-10.8) H Red Blood Count 3.53 M/UL (4.70-6.10) L Hemoglobin 11.1 G/DL (14.2-18.0) L Hematocrit 34.0 % (42.0-52.0) L Mean Corpuscular Volume 96 FL (80-99) Mean Corpuscular Hemoglobin 31.6 PG (27.0-31.0) H Mean Corpuscular Hemoglobin Concent 32.7 G/DL (32.0-36.0) Red Cell Distribution Width 12.0 % (11.6-14.8) Platelet Count 251 K/UL (150-450) Mean Platelet Volume 7.6 FL (6.5-10.1) Neutrophils (%) (Auto) % (45.0-75.0) Lymphocytes (%) (Auto) % (20.0-45.0) Monocytes (%) (Auto) % (1.0-10.0) Eosinophils (%) (Auto) % (0.0-3.0) Basophils (%) (Auto) % (0.0-2.0) Differential Total Cells Counted 100 Neutrophils % (Manual) 96 % (45-75) H Lymphocytes % (Manual) 2 % (20-45) L Monocytes % (Manual) 2 % (1-10) Eosinophils % (Manual) 0 % (0-3) Basophils % (Manual) 0 % (0-2) Band Neutrophils 0 % (0-8) Platelet Estimate Adequate Platelet Morphology Normal Macrocytosis 1+ Sodium Level 133 MMOL/L (136-145) L 136 MMOL/L (136-145) Potassium Level 3.3 MMOL/L (3.5-5.1) L 3.7 MMOL/L (3.5-5.1) Chloride Level 102 MMOL/L (98-107) 102 MMOL/L (98-107) Carbon Dioxide Level 23 MMOL/L (21-32) 21 MMOL/L (21-32) Anion Gap 8 mmol/L (5-15) 13 mmol/L (5-15) Blood Urea Nitrogen 18 mg/dL (7-18) 18 mg/dL (7-18) Creatinine 0.7 MG/DL (0.55-1.30) 0.7 MG/DL (0.55-1.30) Estimat Glomerular Filtration Rate > 60 mL/min (>60) > 60 mL/min (>60) Glucose Level 111 MG/DL (74-106) H 91 MG/DL (74-106) Lactic Acid Level 1.30 mmol/L (0.4-2.0) Calcium Level 7.8 MG/DL (8.5-10.1) L 8.2 MG/DL (8.5-10.1) L Total Bilirubin 0.5 MG/DL (0.2-1.0) Aspartate Amino Transf (AST/SGOT) 52 U/L (15-37) H Alanine Aminotransferase (ALT/SGPT) 20 U/L (12-78) Alkaline Phosphatase 61 U/L (46-116) Troponin I 0.076 ng/mL (0.000-0.056) Total Protein 6.1 G/DL (6.4-8.2) L Albumin 2.2 G/DL (3.4-5.0) L Globulin 3.9 g/dL Albumin/Globulin Ratio 0.6 (1.0-2.7) L Magnesium Level 2.1 MG/DL (1.8-2.4) Microbiology Date/Time Source Procedure Growth Status 08/02/20 23:15 Rectum Received 08/02/20 22:45 Nasal Nares - Final Complete 08/02/20 22:45 Nasal Nares - Final Complete 08/02/20 21:44 Nasopharynx SARS-CoV-2 RdRp Gene Assay - Final Complete Assessment/Plan Assessment/Plan Paroxysmal atrial fibrillation with RVR Aspiration risk Hypokalemia Sepsis Healthcare acquired PNA Complicated UTI with indwelling catheter Hyponatremia Severe protein calorie malnutrition Acute myocardial ischemia Respiratory failure with hypoxia Hypovolemia Leukocytosis Sinus tachycardia CRITICAL & GUARDED Empiric antibiotics Serial troponins IVF DVT prophylaxis Saline hydration Potassium replacement IV beta katya while NPO Sarkis Herman MD Aug 05, 2020 00:11
--- NOTE | 2020-08-05 01:20 | NUR ---
NURSE NOTES: Vitals taken and verified with charge nurse Milagros- Kelly- before starting Metoprolol IVPB.
[2020-08-05] MEDS: Metoprolol Tartrate 10 MG in D5W 55 ML IVPB SCH ×3 (01:27→15:31)
[2020-08-05] MEDS: Albuterol/Ipratropium 3ml neb HHN SCH ×4 (01:46→19:33)
[2020-08-05 03:38] LABS: BILIRUBIN, URINE 1+ (NEGATIVE); GLUCOSE, URINE (UA) NEGATIVE (NEGATIVE); KETONES,URINE 4+ (NEGATIVE); LEUKOCYTE ESTERASE ,URINE 2+ (NEGATIVE); NITRITE,URINE POSITIVE (NEGATIVE); PH,URINE 5 (4.5-8.0); PROTEIN,URINE 3+ (NEGATIVE); UROBILINOGEN,URINE 4 MG/DL (0.0-1.0)
[2020-08-05 03:59] LABS: APPEARANCE,URINE CLOUDY; COLOR,URINE AMBER
[2020-08-05] MEDS: Piperacillin/Tazobactam 3.375 GM in NS 110 ML IVPB SCH ×3 (05:01→21:40)
[2020-08-05 05:52] LABS: HEMATOCRIT 33.9 % (42.0-52.0); HEMOGLOBIN 10.9 G/DL (14.2-18.0); MEAN CORPUSCULAR VOLUME 97 FL (80-99); PLATELET COUNT 262 K/UL (150-450); RED BLOOD COUNT 3.49 M/UL (4.70-6.10); RED CELL DISTRIBUTION WIDTH 12.2 % (11.6-14.8); WHITE BLOOD COUNT 20.4 K/UL (4.8-10.8)
[2020-08-05 06:15] LABS: ALANINE AMINOTRANSFERASE 36 U/L (12-78); ALBUMIN/GLOBULIN RATIO 0.5 (1.0-2.7); ALKALINE PHOSPHATASE 60 U/L (46-116); ANION GAP 10 mmol/L (5-15); ASPARTATE AMINO TRANSFERASE 67 U/L (15-37); BILIRUBIN,TOTAL 0.5 MG/DL (0.2-1.0); BLOOD UREA NITROGEN 25 mg/dL (7-18); CALCIUM 7.7 MG/DL (8.5-10.1); CARBON DIOXIDE 22 MMOL/L (21-32); CHLORIDE 104 MMOL/L (98-107); CREATININE 0.8 MG/DL (0.55-1.30); POTASSIUM 3.4 MMOL/L (3.5-5.1); SODIUM 135 MMOL/L (136-145)
--- NOTE | 2020-08-05 06:45 | NUR ---
NURSE NOTES: EKG done to Troponin trending up - shows SR w/ short CO w/ Premature supraventricular complexes- will endorse to am nurse to f/u with MD regarding troponin trending up. Addendum: 08/05/20 at 0655 by CYNTHIA SERNA RN RN pt. remains stable- will continue to monitor pt.
--- NOTE | 2020-08-05 07:30 | NUR ---
NURSE HAND-OFF REPORT: Important Events on Shift:A fib w/ RVR Patient Status: stable Diet: NPO Pending Orders: Pending Results/Labs: Pending MD notification: Latest Vital Signs: Temperature 97.8 , Pulse 94 , B/P 118 /75 , Respiratory Rate 18 , O2 SAT 98 , Venturi Mask, O2 Flow Rate 8.0 . Vital Sign Comment: EKG Rhythm: A fib- SR now Rhythm change?: y Notified?: Dr. Virgil KURTZ Response: Order Received & Read Back by Charge nurse Kelly Latest José Fall Score: 75 Fall Risk: High Risk Safety Measures: Call light Within Reach, Bed Alarm Zone 2, Side Rails Side Rails x3, Bed position Low and Locked. Fall Precautions: Yellow Socks Yellow Gown Door Sign Patient Fall Education Report given to BLANE Godinez, aware to f/u on any abnormal am labs and f/u with MD regarding Troponin trending up and MRSA nares (+).
--- NOTE | 2020-08-05 07:30 | NUR ---
NURSE NOTES: Received report from BLANE Caban. Patient is lying on bed sleeping. Rhythm is SR. Patient is on Venturi mask 40% 8L tolerating well. Patient is NPO until evaluated by ST. IV site is R AC 20 g and R FA 20 g running NS at 100 mL/hr. Bed is on the lowest position, locked, and side rails are up. Patient will continue to be monitored.
--- NOTE | 2020-08-05 07:33 | General Progress Note ---
Subjective ROS Limited/Unobtainable: No Constitutional: Reports: malaise, weakness HEENT: Reports: no symptoms Cardiovascular: Reports: no symptoms Respiratory: Reports: cough, shortness of breath Gastrointestinal/Abdominal: Reports: difficulty swallowing Genitourinary: Reports: no symptoms Neurologic/Psychiatric: Reports: no symptoms, pre-existing deficit Endocrine: Reports: no symptoms Hematologic/Lymphatic: Reports: no symptoms Allergies: Coded Allergies: No Known Allergies (Unverified , 08/02/20) All Systems: reviewed and negative except above Subjective no events. stable on venti mask. 2nd covid negative. labs noted. on iv abx. withdrawn/weak. failed swallow eval Objective Last 24 Hour Vital Signs Date Time Temp Pulse Resp B/P (MAP) Pulse Ox O2 Delivery O2 Flow Rate FiO2 08/05/20 06:33 94 118/75 08/05/20 04:00 97.8 100 18 117/72 (87) 98 08/05/20 04:00 Venturi Mask 8.0 08/05/20 04:00 8.0 40 08/05/20 03:49 77 08/05/20 03:00 75 20 106/62 (77) 99 08/05/20 01:46 80 18 99 Venturi Mask 8.0 40 77 18 95 08/05/20 01:27 95 127/61 08/05/20 00:00 98.1 98 20 95/53 (67) 98 08/05/20 00:00 8.0 40 08/05/20 00:00 Venturi Mask 8.0 08/04/20 23:37 91 08/04/20 21:00 93 20 100/61 (74) 97 08/04/20 20:45 122 08/04/20 20:34 147 112/65 08/04/20 20:21 146 08/04/20 20:00 8.0 40 08/04/20 20:00 Venturi Mask 8.0 08/04/20 20:00 97.9 88 20 107/55 (72) 98 08/04/20 19:32 95 Venturi Mask 8.0 40 08/04/20 19:32 74 18 99 Venturi Mask 8.0 40 77 18 95 08/04/20 19:02 98.1 08/04/20 16:00 98.1 77 19 141/72 (95) 97 08/04/20 16:00 Venturi Mask 8.0 08/04/20 16:00 8.0 40 08/04/20 15:27 94 08/04/20 14:51 96 148/75 08/04/20 14:18 181 08/04/20 13:20 96 18 100 Venturi Mask 8.0 40 98 16 98 08/04/20 12:00 97.1 94 24 148/75 (99) 97 08/04/20 12:00 8.0 40 08/04/20 12:00 Venturi Mask 8.0 08/04/20 11:39 95 08/04/20 08:00 Venturi Mask 8.0 08/04/20 08:00 8.0 40 08/04/20 08:00 98.0 85 16 116/70 (85) 98 08/04/20 07:40 85 Intake and Output 08/04/20 08/05/20 19:00 07:00 Intake Total 907.5 ml 1780.916 ml Output Total 1200 ml 475 ml Balance -292.5 ml 1305.916 ml Intake IV Total 907.5 ml 1780.916 ml Output Urine Total 1200 ml 475 ml # Bowel Movements 1 Laboratory Tests 08/04/20 15:30: Sodium Level 136, Potassium Level 3.7, Chloride Level 102, Carbon Dioxide Level 21, Anion Gap 13, Blood Urea Nitrogen 18, Creatinine 0.7, Estimat Glomerular Filtration Rate > 60, Glucose Level 91, Calcium Level 8.2L, Magnesium Level 2.1 08/05/20 01:30: Urine Color Kassidy, Urine Appearance Cloudy, Urine pH 5, Urine Specific [place] 1.020, Urine Protein 3+H, Urine Glucose (UA) Negative, Urine Ketones 4+H, Urine Blood 5+H, Urine Nitrite PositiveH, Urine Bilirubin 1+H, Urine Ictotest Neg ative, Urine Urobilinogen 4H, Urine Leukocyte Esterase 2+H, Urine RBC TntcH, Urine WBC 20-30H, Urine Squamous Epithelial Cells None, Urine Bacteria ManyH 08/05/20 04:50: Sodium Level 135L, Potassium Level 3.4L, Chloride Level 104, Carbon Dioxide Level 22, Anion Gap 10, Blood Urea Nitrogen 25H, Creatinine 0.8, Estimat Glomerular Filtration Rate > 60, Glucose Level 120H, Calcium Level 7.7L, Magnesium Level 1.8, White Blood Count 20.4H, Red Blood Count 3.49L, Hemoglobin 10.9L, Hematocrit 33.9L, Mean Corpuscular Volume 97, Mean Corpuscular Hemoglobin 31.3H, Mean Corpuscular Hemoglobin Concent 32.2, Red Cell Distribution Width 12.2, Platelet Count 262, Mean Platelet Volume 8.1, Neutrophils (%) (Auto) , Lymphocytes (%) (Auto) , Monocytes (%) (Auto) , Eosinophils (%) (Auto) , Basophils (%) (Auto) , Neutrophils % (Manual) [Pending], Lymphocytes % (Manual) [Pending], Platelet Estimate [Pending], Platelet Morphology [Pending], Total Bilirubin 0.5, Aspartate Amino Transf (AST/SGOT) 67H, Alanine Aminotransferase (ALT/SGPT) 36, Alkaline Phosphatase 60, Troponin I 0.220H, Pro-B-Type Natriuretic Peptide 2087H, Total Protein 5.7L, Albumin 2.0L, Globulin 3.7, Albumin/Globulin Ratio 0.5L Height (Feet): 5 Height (Inches): 5.00 Weight (Pounds): 99 Objective General Appearance: WD/WN, confused, thin EENT: normal ENT inspection Neck: non-tender, normal alignment, supple Cardiovascular: normal rate, regular rhythm Respiratory/Chest: chest wall non-tender, lungs clear, normal breath sounds, no respiratory distress, no accessory muscle use Abdomen: normal bowel sounds, non tender, soft, no organomegaly Edema: no edema noted Arm (L), no edema noted Arm (R) Assessment/Plan Problem List: (1) Pneumonia ICD Codes: J18.9 - Pneumonia, unspecified organism SNOMED: 804747805 (2) Hypoxia ICD Codes: R09.02 - Hypoxemia SNOMED: 916711014 (3) AMS (altered mental status) ICD Codes: R41.82 - Altered mental status, unspecified SNOMED: 063107354 (4) UTI (urinary tract infection) ICD Codes: N39.0 - Urinary tract infection, site not specified SNOMED: 48427276 (5) Sepsis ICD Codes: A41.9 - Sepsis, unspecified organism SNOMED: 78356469 Status: stable, not improved Assessment/Plan: cont supplemental o2 titrate as needed iv abx per follow up cxr speech rx/follow up dvt/stress ulcer prophylaxis d/w family poc replace Chavez Mora MD Aug 05, 2020 07:33
--- NOTE | 2020-08-05 07:38 | NUR ---
NURSE NOTES: per DR. Gilmore to put in order for speech eval and video swallow today- orders carried out- made doctor aware of troponin trending up and pt. (+) MRSA nares.
--- NOTE | 2020-08-05 07:40 | NUR ---
NURSE NOTES: Report received from Didi ARGUELLES.Pt resting in bed asleep noted no resp distress on Venturi Mask 40% at 8l,no signs of pain or discomfort ,SR on the monitor, Overton cath draining yellow urine,SR up x2 HOB elevated bed lock in lowest position,will continue with plans of care.
[2020-08-05] MEDS ORDERED: Varibar Honey 250ml MC PRN (08:00)
[2020-08-05] MEDS ORDERED: Varibar Pudding 230ml MC PRN (08:00)
[2020-08-05] MEDS ORDERED: Varibar Thin Liquid powder 148gm MC PRN (08:00)
[2020-08-05] MEDS ORDERED: Varibar Nectar 240ml MC PRN (08:00)
[2020-08-05] MEDS: Levodopa/Carbidopa 25/100 tab ORAL SCH ×3 (08:46→18:00)
[2020-08-05] MEDS: Heparin 5000 units/ml inj SUBQ SCH ×2 (08:56→21:41)
--- NOTE | 2020-08-05 09:00 | NUR ---
NURSE NOTES: Speech therapist at bedside,Swallow eval done,pt appears to follow command tolerating the apple sauce, due PO medic given with the speech therapist .
--- NOTE | 2020-08-05 09:31 | NUR ---
Speech Pathology Note (Dysphagia RX) WBC 20.k stable I discussed with attending physician Dr. Gilmore at nursing station for specific plans of care about dysphagia, aspiration and aspiration pneumonia. I discussed with RN and RT at patient's bedside. decreased O2 support t0 2 .5liter via NC. I provided oral care with ice chip and suction. The tanned concretion was suctioned with PO ice chips. Pt was able to bring up some dried secretion from pharynx. Penetration and aspiration signs were noted with ice chips. After I finish this, I gave him apple sauce with crushed meds. He tolerated without s.s of aspiration. Interpretation: 1. Oropharyngeal Dysphagia with recurrent aspiration pneumonia, probable weight loss 2. Improved pulmonary status, leukocytosis Plan: 1. Video swallow today between 13:00~15:00 1. NPO except meds. elizabeth Oliva
--- NOTE | 2020-08-05 09:48 | NUR ---
RADIOLOGY: PCXR COMPLETED 0930HRS. NF
--- NOTE | 2020-08-05 12:50 | NUR ---
NURSE NOTES: Patient is brought down to the radiology for swallow test.
--- NOTE | 2020-08-05 13:15 | NUR ---
NURSE NOTES: Patient came back from radiology department after ST. patient is on bed, sleeping. On NC 2L. O2 saturation is 99%.
--- NOTE | 2020-08-05 13:20 | NUR ---
Speech Pathology Note (Videofluoroscopic Swallow Study) Fluoroscopic Time: 23sec View: Lateral Contrast: ~10cc [place] thick barium Position: upright in bed Aggravate factors: Confusion Packaging Designer View: It revealed that there are multi-level of cervical vertebrae osteophytes anteriorly from C3-C4, C4-C5, C5-C6 and C6-C7. The C5-C6 appeared to be bulky and bulge against hypo-pharyngeal wall adjacent to upper esophageal inlet. Findings: The P.O. contrast was poorly control in oropharynx resulted in premature spillage all the way down to pyriform sinus. The micro amount of contrast reached the level of true vocal folds posteriorly. The delay pharyngeal swallow was triggered immediately after the contrast penetrated to the level of true vocal folds. Majority of contrast did not pass the pharynx into esophagus. It was pooling in both pyriform sinuses and valleculae. He voluntarily swallowed the pooled contrast however he was unable to clear. Subsequently he aspirated the small amount of contrast. I conclude the video fluoroscopic swallow evaluation at this time with adequate information to provide further recommendation to patient, patient's family members, staff and MD'S. Interpretation/Impression: 1. Oropharyngeal Dysphagia with aspiration due to multifactorial 2. Recurrent aspiration pneumonia with high risk of respiratory failure with PO Plan: 1. NPO for now and GI consult for PEG 2. If Pt and Pt's family wish to not have alternative fpc feeding tube -Pureed and Honey thick liquid -Crush medication with apple sauce -Will likely need comfort approach Based on reports review from [facility] 07/27/2020 radiologist's report of video esophagram and video swallow study, findings appeared to be the same. There was no actual video imaging available at this time for comparison. Mj Oliva
--- NOTE | 2020-08-05 13:30 | NUR ---
NURSE NOTES: Dr. Gilmore ordered insertion of NGT and CXR. Addendum: 08/05/20 at 1607 by Chelsea Banks RN NURSE NOTES: Correction on the time. Dr. Gilmore came by around 1530.
--- NOTE | 2020-08-05 13:40 | NUR ---
NURSE NOTES: Pt back from radiology,video swallow failed,pt did not passed.
[2020-08-05] MEDS: Amiodarone 200mg tab ORAL SCH ×2 (15:35→21:41)
--- NOTE | 2020-08-05 17:00 | NUR ---
NURSE NOTES: Dr Gilmore called with orders to insert NGT and do chest Xray for today.
[2020-08-05] MEDS ORDERED: AIRDUO DIGIHAL1 EAC2 IH (17:22)
[2020-08-05] MEDS ORDERED: BISACODYL10 M1 RC (17:22)
[2020-08-05] MEDS ORDERED: VITAMIN D250 MCG PO (17:22)
[2020-08-05] MEDS ORDERED: ACETAMINOPHEN325 M1 ORAL (17:22)
[2020-08-05] MEDS ORDERED: NS 275ml ONE (18:33)
[2020-08-05] MEDS ORDERED: Tubing IV Secondary IV ONE (18:33)
--- NOTE | 2020-08-05 19:20 | NUR ---
NURSE HAND-OFF REPORT: Important Events on Shift:video swallow done,pt failed,NGT ordered Patient Status: Stable Diet: Pureed cardiac Pending Orders: N/A Pending Results/Labs:N/A Pending MD notification:N/A Latest Vital Signs: Temperature 97.7 , Pulse 112 , B/P 144 /85 , Respiratory Rate 19 , O2 SAT 95 , Nasal Cannula, O2 Flow Rate 31.0 . Vital Sign Comment: stable EKG Rhythm: Sinus Tachycardia Rhythm change?: N MD Notified?: N -Dr. Virgil KURTZ Response: Order Received& Read Back Latest José Fall Score: 75 Fall Risk: High Risk Safety Measures: Call light Within Reach, Bed Alarm Zone 2, Side Rails Side Rails x3, Bed position Low and Locked. Fall Precautions: Yellow Socks Yellow Gown Door Sign Patient Fall Education Report given to Wilton ARGUELLES.
--- NOTE | 2020-08-05 19:26 | NUR ---
NURSE NOTES: Received report from Gretchen Rn, pt. in bed awake, with eyes open- appears to be confused, no signs or symptoms of acute cardiac or respiratory distress noted, bed alarm on, side rails up x's3 and safety brakes engaged, call light within easy reach, pt. appears to be sating well on current Simple mask settings at 4L- no distress noted, Overton intact and draining to gravity, pt. appears clean and dry, bilateral soft restraints removed- bilateral pulses palpable and skin intact- restraints reapplied, HOB elevated- aspiration precautions observed, Right AC 20G IV intact and patent running NS at 100cc/hr, safety measures continued, will continue with plan of care.
--- NOTE | 2020-08-05 20:10 | NUR ---
NURSE NOTES: NGT entered to left Nare at 75cm by previous am nurse- GRECIA ordered stat for placement- Chin aware in radiology. pt. remains stable.- Another IV inserted to Left hand 22G- Intact and patent.
--- NOTE | 2020-08-05 20:30 | NUR ---
NURSE NOTES: restraints removed- bilateral pulses palpable and skin intact- pt. not observed removing devices- pt. appears to be in bed asleep- will continue to monitor pt. and with plan of care.
--- NOTE | 2020-08-05 21:11 | NUR ---
NURSE NOTES: Awaiting for KUB results- prior to administering medications- Chin at radiology aware to notify me when results are ready.
--- NOTE | 2020-08-05 21:13 | Diagnostic Imaging Report ---
EXAM: XR Abdomen, frontal view CLINICAL HISTORY: NGT TECHNIQUE: Frontal view of the abdomen COMPARISON: Chest radiograph from 08/02/20 FINDINGS: Lower thorax: Moderate amount of diffuse airspace opacities in the visualized lungs. Suspect small bilateral pleural effusions. Gastrointestinal tract: Large amount of inspissated stool in the colon. Bones/joints: No acute findings. Tubes, lines and devices: Tip of an enteric tube is in the body the stomach or third/fourth portion of duodenum. IMPRESSION: 1. Tip of an enteric tube is in the body the stomach or third/fourth portion of duodenum. 2. Large amount of inspissated stool in the colon. 3. Moderate amount of diffuse airspace opacities in the visualized lungs. 4. Suspect small bilateral pleural effusions.
--- NOTE | 2020-08-05 21:15 | NUR ---
NURSE NOTES: per Chin at radiology NGT in correct place- will await for report before administering medications.
[2020-08-05] MEDS: Tamsulosin 0.4mg cap ORAL SCH (21:40)
--- NOTE | 2020-08-05 22:08 | Cardiology Progress Note ---
Subjective DATE OF SERVICE: Aug 05, 2020 Less congested with SOB. Very confused, but less agitated NPO due to aspiration risk Monitor: sinus with paroxysmal AFib mostly rate controlled. Objective Last 24 Hour Vital Signs Date Time Temp Pulse Resp B/P (MAP) Pulse Ox O2 Delivery O2 Flow Rate FiO2 08/05/20 20:00 97.2 99 18 132/61 (84) 98 08/05/20 20:00 Venturi Mask 8.0 08/05/20 20:00 4.0 08/05/20 19:36 95 Venturi Mask 31.0 28 08/05/20 19:30 89 18 98 Venturi Mask 6.0 31 88 20 95 08/05/20 19:14 85 08/05/20 16:00 97.7 98 19 144/85 (104) 100 08/05/20 16:00 112 08/05/20 16:00 2.0 08/05/20 16:00 Nasal Cannula 2.0 08/05/20 15:31 89 117/76 08/05/20 14:06 89 18 100 Nasal Cannula 2.0 28 88 18 98 08/05/20 12:00 2.0 08/05/20 12:00 97.5 84 20 117/76 (90) 99 08/05/20 12:00 Nasal Cannula 2.0 08/05/20 11:53 94 08/05/20 09:25 97 Nasal Cannula 2.0 28 08/05/20 08:02 60 18 99 Venturi Mask 8.0 40 55 18 97 08/05/20 08:02 97 Venturi Mask 8.0 40 08/05/20 08:00 Venturi Mask 8.0 08/05/20 08:00 75 08/05/20 08:00 8.0 40 08/05/20 08:00 97.5 112 20 126/76 (93) 95 08/05/20 06:33 94 118/75 08/05/20 04:00 97.8 100 18 117/72 (87) 98 08/05/20 04:00 Venturi Mask 8.0 08/05/20 04:00 8.0 40 08/05/20 03:49 77 08/05/20 03:00 75 20 106/62 (77) 99 08/05/20 01:46 80 18 99 Venturi Mask 8.0 40 77 18 95 08/05/20 01:27 95 127/61 08/05/20 00:00 98.1 98 20 95/53 (67) 98 08/05/20 00:00 8.0 40 08/05/20 00:00 Venturi Mask 8.0 08/04/20 23:37 91 ROS: unchanged from my evaluation of 08/02/20 HEENT: normal ENT inspection RHYTHM: NSR, PACs LUNGS: bilateral rhonchi CARDIAC: normal S1 and S2, irregularly irregular, systolic murmur - 1/6 systolic murmurat apex, rapid rate ABDOMEN: normal bowel sounds, non tender, soft, no organomegaly EXTREMITIES: normal range of motion, trace edema Laboratory Tests Test 08/05/20 01:30 08/05/20 04:50 08/05/20 21:10 Urine Color Kassidy Urine Appearance Cloudy Urine pH 5 (4.5-8.0) Urine Specific [place] 1.020 (1.005-1.035) Urine Protein 3+ (NEGATIVE) H Urine Glucose (UA) Negative (NEGATIVE) Urine Ketones 4+ (NEGATIVE) H Urine Blood 5+ (NEGATIVE) H Urine Nitrite Positive (NEGATIVE) H Urine Bilirubin 1+ (NEGATIVE) H Urine Ictotest Negative (NEGATIVE) Urine Urobilinogen 4 MG/DL (0.0-1.0) H Urine Leukocyte Esterase 2+ (NEGATIVE) H Urine RBC Tntc /HPF (0 - 0) H Urine WBC 20-30 /HPF (0 - 0) H Urine Squamous Epithelial Cells None /LPF (NONE/OCC) Urine Bacteria Many /HPF (NONE) H White Blood Count 20.4 K/UL (4.8-10.8) H Red Blood Count 3.49 M/UL (4.70-6.10) L Hemoglobin 10.9 G/DL (14.2-18.0) L Hematocrit 33.9 % (42.0-52.0) L Mean Corpuscular Volume 97 FL (80-99) Mean Corpuscular Hemoglobin 31.3 PG (27.0-31.0) H Mean Corpuscular Hemoglobin Concent 32.2 G/DL (32.0-36.0) Red Cell Distribution Width 12.2 % (11.6-14.8) Platelet Count 262 K/UL (150-450) Mean Platelet Volume 8.1 FL (6.5-10.1) Neutrophils (%) (Auto) % (45.0-75.0) Lymphocytes (%) (Auto) % (20.0-45.0) Monocytes (%) (Auto) % (1.0-10.0) Eosinophils (%) (Auto) % (0.0-3.0) Basophils (%) (Auto) % (0.0-2.0) Differential Total Cells Counted 100 Neutrophils % (Manual) 95 % (45-75) H Lymphocytes % (Manual) 3 % (20-45) L Monocytes % (Manual) 2 % (1-10) Eosinophils % (Manual) 0 % (0-3) Basophils % (Manual) 0 % (0-2) Band Neutrophils 0 % (0-8) Platelet Estimate Adequate Platelet Morphology Normal Red Blood Cell Morphology Hypochromasia 1+ Sodium Level 135 MMOL/L (136-145) L Potassium Level 3.4 MMOL/L (3.5-5.1) L Chloride Level 104 MMOL/L (98-107) Carbon Dioxide Level 22 MMOL/L (21-32) Anion Gap 10 mmol/L (5-15) Blood Urea Nitrogen 25 mg/dL (7-18) H Creatinine 0.8 MG/DL (0.55-1.30) Estimat Glomerular Filtration Rate > 60 mL/min (>60) Glucose Level 120 MG/DL (74-106) H Calcium Level 7.7 MG/DL (8.5-10.1) L Magnesium Level 1.8 MG/DL (1.8-2.4) Total Bilirubin 0.5 MG/DL (0.2-1.0) Aspartate Amino Transf (AST/SGOT) 67 U/L (15-37) H Alanine Aminotransferase (ALT/SGPT) 36 U/L (12-78) Alkaline Phosphatase 60 U/L (46-116) Troponin I 0.220 ng/mL (0.000-0.056) Pro-B-Type Natriuretic Peptide 2087 pg/mL (0-125) H Total Protein 5.7 G/DL (6.4-8.2) L Albumin 2.0 G/DL (3.4-5.0) L Globulin 3.7 g/dL Albumin/Globulin Ratio 0.5 (1.0-2.7) L Vancomycin Level Trough Pending Microbiology Date/Time Source Procedure Growth Status 08/03/20 10:43 Nasopharynx Coronavirus COVID-19 PCR (JULIO) - Final Complete 08/02/20 23:15 Rectum - Final NO CARBAPENEM-RESISTANT ENTEROBACTERI... Complete 08/02/20 23:15 Rectum VRE Culture - Final NO VANCOMYCIN RESISTANT ENTEROCOCCUS ... Complete 08/02/20 23:15 Nasal Nares MRSA Culture - Final Staphylococcus Aureus - Mrsa Complete 08/02/20 22:45 Nasal Nares - Final Complete 08/02/20 22:45 Nasal Nares - Final Complete 08/02/20 22:30 Blood Blood Culture - Preliminary NO GROWTH AFTER 24 HOURS Resulted Assessment/Plan Assessment/Plan Paroxysmal atrial fibrillation with RVR Aspiration risk Hypokalemia Sepsis Healthcare acquired PNA Complicated UTI with indwelling catheter Hyponatremia Severe protein calorie malnutrition Acute myocardial ischemia Respiratory failure with hypoxia Hypovolemia Leukocytosis persisting Sinus tachycardia CRITICAL & GUARDED Empiric antibiotics Serial troponins IVF DVT prophylaxis DC IVF Potassium replacement Start amiodarone Titrate beta katya. ID Sarkis Ambrose MD Aug 05, 2020 22:07
[2020-08-05] MEDS: Vancomycin 750mg/D5W 275ml IVPB SCH ×2 (22:33)
--- NOTE | 2020-08-05 23:00 | NUR ---
NURSE NOTES: pt. desaturating to mid 80's- mask changed to Venturi 50% at 10L- pt. now sating at 97%- will continue to monitor pt. and with plan of care.
--- NOTE | 2020-08-05 23:20 | NUR ---
NURSE NOTES: bed bath given - linens changed, repositioned and turned pt., Aspiration precautions observed- HOB elevated- pt. remains stable- will continue to monitor pt. and with plan of care.
[2020-08-06] VITALS: BP 136/83
[2020-08-06] MEDS: Albuterol/Ipratropium 3ml neb HHN SCH ×4 (01:13→19:44)
--- NOTE | 2020-08-06 01:17 | NUR ---
NURSE NOTES: per RT. pt. sating at 98%- venturi mask settings changed 8L and 40%- pt. remains stable- will continue to monitor pt. and with plan of care.
--- NOTE | 2020-08-06 01:57 | NUR ---
NURSE NOTES: during rounds noted- pt. trying to pull on NGT- and IV line- bilateral soft restraints applied- skin intact and bilateral pulses palpable- restraints applied- will continue to monitor pt. and with plan of care.
[2020-08-06 04:00] VITALS: BP 137/69
--- NOTE | 2020-08-06 04:30 | NUR ---
NURSE NOTES: pt. appears to be sating well- on venturi mask settings- no distress noted- oral care provided- will continue to monitor pt. and with plan of care.
[2020-08-06] MEDS: Piperacillin/Tazobactam 3.375 GM in NS 110 ML IVPB SCH ×3 (05:07→22:18)
[2020-08-06 06:03] LABS: HEMATOCRIT 36.5 % (42.0-52.0); HEMOGLOBIN 11.6 G/DL (14.2-18.0); MEAN CORPUSCULAR VOLUME 98 FL (80-99); PLATELET COUNT 266 K/UL (150-450); RED BLOOD COUNT 3.72 M/UL (4.70-6.10); RED CELL DISTRIBUTION WIDTH 12.5 % (11.6-14.8); WHITE BLOOD COUNT 17.7 K/UL (4.8-10.8)
[2020-08-06 06:34] LABS: ALANINE AMINOTRANSFERASE 16 U/L (12-78); ALBUMIN 1.8 G/DL (3.4-5.0); ALBUMIN/GLOBULIN RATIO 0.5 (1.0-2.7); ALKALINE PHOSPHATASE 57 U/L (46-116); ANION GAP 8 mmol/L (5-15); ASPARTATE AMINO TRANSFERASE 46 U/L (15-37); BILIRUBIN,TOTAL 0.4 MG/DL (0.2-1.0); BLOOD UREA NITROGEN 21 mg/dL (7-18); CALCIUM 7.3 MG/DL (8.5-10.1); CARBON DIOXIDE 23 MMOL/L (21-32); CHLORIDE 107 MMOL/L (98-107); CREATININE 0.6 MG/DL (0.55-1.30); POTASSIUM 3.1 MMOL/L (3.5-5.1); SODIUM 138 MMOL/L (136-145)
--- NOTE | 2020-08-06 07:20 | NUR ---
NURSE HAND-OFF REPORT: Important Events on Shift:none Patient Status: none Diet: NPO Pending Orders: Pending Results/Labs: Pending MD notification: Latest Vital Signs: Temperature 97.6 , Pulse 94 , B/P 137 /69 , Respiratory Rate 18 , O2 SAT 98 , Venturi Mask, O2 Flow Rate 8.0 . Vital Sign Comment: EKG Rhythm: Sinus Rhythm Rhythm change?: N MD Notified?: MD Response: Latest José Fall Score: 75 Fall Risk: High Risk Safety Measures: Call light Within Reach, Bed Alarm Zone 2, Side Rails Side Rails x3, Bed position Low and Locked. Fall Precautions: Yellow Socks Yellow Gown Door Sign Patient Fall Education Report given to Godinez RN- aware to f/u on any abnormal am labs.
--- NOTE | 2020-08-06 07:40 | NUR ---
NURSE NOTES: Received report from BLANE Caban. Pt is awake. Wolof speaking only, speaking is garbled. A+Ox4 currently. No signs of distrss. environmental monitoring technician shows A-fib, will give scheduled amiodarone. Pt is on venturi mask, 8L/40% FiO2, oxygen saturation at 95%. BW on, skin underneath intact and pulses present bilaterally. Overton is present, asymptomatic, and draining well to gravity. NGT has 5ml of residual and flushes well. HOB elevated, side rails upx3, call light within reach, bed locked and in lowest position. Will continuy Addendum: 08/06/20 at 0750 by Josephine Ngo RN Will continue to monitor.
[2020-08-06 08:00] VITALS: BP 161/90
--- NOTE | 2020-08-06 08:01 | NUR ---
RD ASSESSMENT & RECOMMENDATIONS SEE CARE ACTIVITY FOR COMPLETE ASSESSMENT DAILY ESTIMATED NEEDS: Needs based on Underweight, pulmonary/ 45kg 30-35 kcals/kg 1877-4283 total kcals 1-1.5 g protein/kg 45-68 g total protein 25-30 mL/kg 2042-1109 total fluid mLs NUTRITION DIAGNOSIS: * Increased kcal/prot needs R/T underweight status, pulmonary status as evidenced by pt @ 73% IBW, w/ BMI of 16.5, low BMI per guidelines, h/o COPD, on venturi mask. * Swallowing difficulty R/T dysphagia as evidenced by s/p failed video swallow study, w/ rec for NPO, s/p NGT insertion. CURRENT DIET:KATIE, pureed moist ordered but maintained NPO ENTERAL NUTRITION RECOMMENDATIONS: Jevity 1.2 @ 50ml/hr x 24 hrs to provide 1200ml, 1440kcal, 67g prot, 968ml free water * Initiate Jevity 1.2 @ 10ml/hr x 6hrs * Advance 10ml q 4-6 hrs as tolerated to goal * HOB over 30 degrees * Without IVF, h20 flush of 100ml q 6hrs ADDITIONAL RECOMMENDATIONS: * Wt@ SNF on [id number] vs EMR wt of 49.8kg (109.5lbs) vs initial EMR wt of 99lbs -> Rec daily calibrated bedscale wt * Monitor lytes daily w/ TF, replete as needed- high risk for refeeding * Monitor BGs w/ TF, need for carb controlled TF and/or NISS . .
[2020-08-06] MEDS: Amiodarone 200mg tab ORAL SCH ×2 (08:09→20:07)
[2020-08-06] MEDS: Levodopa/Carbidopa 25/100 tab ORAL SCH ×3 (08:10→18:03)
[2020-08-06] MEDS: Heparin 5000 units/ml inj SUBQ SCH ×2 (08:16→20:06)
--- NOTE | 2020-08-06 09:08 | General Progress Note ---
Subjective ROS Limited/Unobtainable: No Constitutional: Reports: malaise, weakness HEENT: Reports: no symptoms Cardiovascular: Reports: no symptoms Respiratory: Reports: shortness of breath Gastrointestinal/Abdominal: Reports: difficulty swallowing Genitourinary: Reports: no symptoms Neurologic/Psychiatric: Reports: pre-existing deficit Endocrine: Reports: no symptoms Hematologic/Lymphatic: Reports: no symptoms Allergies: Coded Allergies: No Known Allergies (Unverified , 08/02/20) All Systems: reviewed and negative except above Subjective no events. ngt in place. remains on venti mask. no fevers or chills. wbc remains elevated. Objective Last 24 Hour Vital Signs Date Time Temp Pulse Resp B/P (MAP) Pulse Ox O2 Delivery O2 Flow Rate FiO2 08/06/20 08:00 96.3 90 18 161/90 (113) 95 08/06/20 07:19 98 Venturi Mask 8.0 40 08/06/20 07:18 88 18 98 Venturi Mask 8.0 40 85 18 96 08/06/20 04:00 8.0 40 08/06/20 04:00 Venturi Mask 8.0 08/06/20 04:00 97.6 94 18 137/69 (91) 97 08/06/20 03:31 100 08/06/20 01:15 8.0 40 08/06/20 01:13 84 20 98 Venturi Mask 8.0 40 89 22 97 08/06/20 00:00 Venturi Mask 8.0 08/06/20 00:00 10.0 50 08/06/20 00:00 97.0 89 18 136/83 (100) 98 08/05/20 23:02 96 08/05/20 23:00 10.0 50 08/05/20 20:00 97.2 99 18 132/61 (84) 98 08/05/20 20:00 Venturi Mask 8.0 08/05/20 20:00 4.0 08/05/20 19:36 95 Venturi Mask 31.0 28 08/05/20 19:30 89 18 98 Venturi Mask 6.0 31 88 20 95 08/05/20 19:14 85 08/05/20 16:00 97.7 98 19 144/85 (104) 100 08/05/20 16:00 112 08/05/20 16:00 2.0 08/05/20 16:00 Nasal Cannula 2.0 08/05/20 15:31 89 117/76 08/05/20 14:06 89 18 100 Nasal Cannula 2.0 28 88 18 98 08/05/20 12:00 2.0 08/05/20 12:00 97.5 84 20 117/76 (90) 99 08/05/20 12:00 Nasal Cannula 2.0 08/05/20 11:53 94 08/05/20 09:25 97 Nasal Cannula 2.0 28 Intake and Output 08/05/20 08/06/20 19:00 07:00 Intake Total 1437.5 ml 1452.0 ml Output Total 250 ml 425 ml Balance 1187.5 ml 1027.0 ml Intake Oral 180 ml IV Total 1257.5 ml 1452.0 ml Output Urine Total 250 ml 425 ml Laboratory Tests 08/05/20 21:10: Vancomycin Level Trough 5.9 08/06/20 05:15: White Blood Count 17.7H, Red Blood Count 3.72L, Hemoglobin 11.6L, Hematocrit 36.5L, Mean Corpuscular Volume 98, Mean Corpuscular Hemoglobin 31.2H, Mean Corpuscular Hemoglobin Concent 31.8L, Red Cell Distribution Width 12.5, Platelet Count 266, Mean Platelet Volume 7.8, Neutrophils (%) (Auto) , Lymphocytes (%) (Auto) , Monocytes (%) (Auto) , Eosinophils (%) (Auto) , Basophils (%) (Auto) , Neutrophils % (Manual) [Pending], Lymphocytes % (Manual) [Pending], Platelet Estimate [Pending], Platelet Morphology [Pending], Sodium Level 138, Potassium Level 3.1L, Chloride Level 107, Carbon Dioxide Level 23, Anion Gap 8, Blood Urea Nitrogen 21H, Creatinine 0.6, Estimat Glomerular Filtration Rate > 60, Glucose Level 113H, Calcium Level 7.3L, Magnesium Level 1.8, Total Bilirubin 0.4, Aspartate Amino Transf (AST/SGOT) 46H, Alanine Aminotransferase (ALT/SGPT) 16, Alkaline Phosphatase 57, Pro-B-Type Natriuretic Peptide 2252H, Total Protein 5.6L, Albumin 1.8L, Globulin 3.8, Albumin/Globulin Ratio 0.5L Height (Feet): 5 Height (Inches): 5.00 Weight (Pounds): 99 Objective General Appearance: WD/WN, confused, thin EENT: normal ENT inspection Neck: non-tender, normal alignment, supple Cardiovascular: normal rate, regular rhythm Respiratory/Chest: chest wall non-tender, lungs clear, normal breath sounds, no respiratory distress, no accessory muscle use Abdomen: normal bowel sounds, non tender, soft, no organomegaly Edema: no edema noted Arm (L), no edema noted Arm (R) Assessment/Plan Problem List: (1) Pneumonia ICD Codes: J18.9 - Pneumonia, unspecified organism SNOMED: 694911031 (2) Hypoxia ICD Codes: R09.02 - Hypoxemia SNOMED: 965270384 (3) AMS (altered mental status) ICD Codes: R41.82 - Altered mental status, unspecified SNOMED: 374826065 (4) UTI (urinary tract infection) ICD Codes: N39.0 - Urinary tract infection, site not specified SNOMED: 81756375 (5) Sepsis ICD Codes: A41.9 - Sepsis, unspecified organism SNOMED: 36796356 Status: stable, not improved Assessment/Plan: cont supplemental o2 titrate as needed iv abx per follow up cxr speech rx/follow up dvt/stress ulcer prophylaxis d/w family poc ngt feeds ID eval pending d/w family x 10 mins Chavez Gilmore MD Aug 06, 2020 09:08
--- NOTE | 2020-08-06 10:00 | NUR ---
NURSE NOTES: Family member at bedside ,pt's daughter updated re pt's status.
--- NOTE | 2020-08-06 10:26 | NUR ---
NURSE NOTES: Osmolite 1.5 started at 10cc/hr. Will check residuals and increase rate to 20cc/hr per MD orders.
--- NOTE | 2020-08-06 10:45 | NUR ---
NURSE NOTES: Dr Herman at bedside,updated re pt's status.
--- NOTE | 2020-08-06 10:45 | NUR ---
NURSE NOTES: Daughter, Tania, at bedside. Updated her on the pt's status, including WBCs trending downwards, pt's orientation, and possible transfer to telemetry.
[2020-08-06] MEDS: Vancomycin 750mg/D5W 275ml IVPB SCH ×4 (11:00→21:26)
[2020-08-06 12:00] VITALS: BP 147/82
--- NOTE | 2020-08-06 12:30 | NUR ---
NURSE NOTES: Residuals checked for tube feeding at 10cc/hr. None noted. Rate increased to 20cc/hr. Will continue to monitor.
--- NOTE | 2020-08-06 14:00 | NUR ---
NURSE NOTES: No residuals noted for Osmolite 1.5 at 20cc/hr through NGT. Will continue to monitor.
[2020-08-06] MEDS ORDERED: NS 275ml ONE (14:52)
[2020-08-06] MEDS ORDERED: Tubing IV Secondary IV ONE (14:52)
--- NOTE | 2020-08-06 15:21 | General Progress Note ---
Subjective ROS Limited/Unobtainable: No Constitutional: Reports: malaise, weakness HEENT: Reports: no symptoms Cardiovascular: Reports: no symptoms Respiratory: Reports: shortness of breath Gastrointestinal/Abdominal: Reports: difficulty swallowing Genitourinary: Reports: no symptoms Neurologic/Psychiatric: Reports: no symptoms Endocrine: Reports: no symptoms Hematologic/Lymphatic: Reports: no symptoms Allergies: Coded Allergies: No Known Allergies (Unverified , 08/02/20) All Systems: reviewed and negative except above Subjective no events. ngt in place. remains on venti mask. no fevers or chills. wbc remains elevated. Objective Last 24 Hour Vital Signs Date Time Temp Pulse Resp B/P (MAP) Pulse Ox O2 Delivery O2 Flow Rate FiO2 08/06/20 14:00 4.0 40 08/06/20 13:53 95 Nasal Cannula 4.0 36 08/06/20 13:34 80 18 97 Venturi Mask 8.0 40 73 18 94 08/06/20 12:00 15.0 40 08/06/20 12:00 109 08/06/20 12:00 97.7 92 18 147/82 (103) 93 08/06/20 12:00 Simple Mask 4.0 08/06/20 08:00 96.3 90 18 161/90 (113) 95 08/06/20 08:00 8.0 40 08/06/20 08:00 Venturi Mask 8.0 08/06/20 07:35 118 08/06/20 07:19 98 Venturi Mask 8.0 40 08/06/20 07:18 88 18 98 Venturi Mask 8.0 40 85 18 96 08/06/20 04:00 8.0 40 08/06/20 04:00 Venturi Mask 8.0 08/06/20 04:00 97.6 94 18 137/69 (91) 97 08/06/20 03:31 100 08/06/20 01:15 8.0 40 08/06/20 01:13 84 20 98 Venturi Mask 8.0 40 89 22 97 08/06/20 00:00 Venturi Mask 8.0 08/06/20 00:00 10.0 50 08/06/20 00:00 97.0 89 18 136/83 (100) 98 08/05/20 23:02 96 11/18/20 23:00 10.0 50 08/05/20 20:00 97.2 99 18 132/61 (84) 98 08/05/20 20:00 Venturi Mask 8.0 08/05/20 20:00 4.0 08/05/20 19:36 95 Venturi Mask 31.0 28 08/05/20 19:30 89 18 98 Venturi Mask 6.0 31 88 20 95 08/05/20 19:14 85 08/05/20 16:00 97.7 98 19 144/85 (104) 100 08/05/20 16:00 112 08/05/20 16:00 2.0 08/05/20 16:00 Nasal Cannula 2.0 08/05/20 15:31 89 117/76 Intake and Output 08/05/20 08/06/20 19:00 07:00 Intake Total 1437.5 ml 1452.0 ml Output Total 250 ml 425 ml Balance 1187.5 ml 1027.0 ml Intake Oral 180 ml IV Total 1257.5 ml 1452.0 ml Output Urine Total 250 ml 425 ml Laboratory Tests 08/05/20 21:10: Vancomycin Level Trough 5.9 08/06/20 05:15: White Blood Count 17.7H, Red Blood Count 3.72L, Hemoglobin 11.6L, Hematocrit 36.5L, Mean Corpuscular Volume 98, Mean Corpuscular Hemoglobin 31.2H, Mean Corpuscular Hemoglobin Concent 31.8L, Red Cell Distribution Width 12.5, Platelet Count 266, Mean Platelet Volume 7.8, Neutrophils (%) (Auto) , Lymphocytes (%) (Auto) , Monocytes (%) (Auto) , Eosinophils (%) (Auto) , Basophils (%) (Auto) , Differential Total Cells Counted 100, Neutrophils % (Manual) 92H, Lymphocytes % (Manual) 4L, Monocytes % (Manual) 4, Eosinophils % (Manual) 0, Basophils % (Ma nual) 0, Band Neutrophils 0, Platelet Estimate Adequate, Platelet Morphology Normal, Macrocytosis 1+, Sodium Level 138, Potassium Level 3.1L, Chloride Level 107, Carbon Dioxide Level 23, Anion Gap 8, Blood Urea Nitrogen 21H, Creatinine 0.6, Estimat Glomerular Filtration Rate > 60, Glucose Level 113H, Calcium Level 7.3L, Magnesium Level 1.8, Total Bilirubin 0.4, Aspartate Amino Transf (AST/SGOT) 46H, Alanine Aminotransferase (ALT/SGPT) 16, Alkaline Phosphatase 57, Pro-B-Type Natriuretic Peptide 2252H, Total Protein 5.6L, Albumin 1.8L, Globulin 3.8, Albumin/Globulin Ratio 0.5L Height (Feet): 5 Height (Inches): 5.00 Weight (Pounds): 99 Objective General Appearance: WD/WN, confused, thin EENT: normal ENT inspection Neck: non-tender, normal alignment, supple Cardiovascular: normal rate, regular rhythm Respiratory/Chest: chest wall non-tender, lungs clear, normal breath sounds, no respiratory distress, no accessory muscle use Abdomen: normal bowel sounds, non tender, soft, no organomegaly Edema: no edema noted Arm (L), no edema noted Arm (R) Assessment/Plan Problem List: (1) Pneumonia ICD Codes: J18.9 - Pneumonia, unspecified organism SNOMED: 708750097 (2) Hypoxia ICD Codes: R09.02 - Hypoxemia SNOMED: 655908976 (3) AMS (altered mental status) ICD Codes: R41.82 - Altered mental status, unspecified SNOMED: 712743907 (4) UTI (urinary tract infection) ICD Codes: N39.0 - Urinary tract infection, site not specified SNOMED: 94065184 (5) Sepsis ICD Codes: A41.9 - Sepsis, unspecified organism SNOMED: 99022980 Status: stable, not improved Assessment/Plan: cont supplemental o2 titrate as needed iv abx per follow up cxr speech rx/follow up dvt/stress ulcer prophylaxis d/w family poc ngt feeds d/w family x 10 mins Chavez Gilmore MD Aug 06, 2020 15:21
--- NOTE | 2020-08-06 15:51 | NUR ---
NURSE NOTES: Daughter, Tania, called to get updates on her father's status. Informed her that he is improving and he is tolerating his tube feeding well.
--- NOTE | 2020-08-06 15:58 | NUR ---
RESPIRATORY NOTE: Called by RNJosephine @[id number] due to desaturation HR 75 SpO2 88%. Pt placed on venti mask 50% HR 77 SpO2 90%. Placed on 100% NRB and HR 77 SpO2 97. Patient stable at this time.
[2020-08-06 16:00] VITALS: BP 166/70
--- NOTE | 2020-08-06 16:34 | NUR ---
SPEECH PATHOLOGY NOTE/DISCHARGE SUMMARY: PATIENT SEEN FOR FOLLOW UP DYSPHAGIA TX. FINDINGS OF VIDEO SWALLOW STUDY DONE ON 08/05/2020 INDICATED ANATOMICAL WELL PHYSIOLOGICAL DEFICITS WHICH CONTRIBUTE TO PATIENTS INABILITY TO TOLERATE P.O. SAFELY. PER THOSE RESULTS, AN NG TUBE WAS PLACED YESTERDAY. PATIENT UNFORTUNATELY HIGH RISK FOR RECURRING PNEUMONIA GOAL OF SAFE/SUFFICIENT P.O. INTAKE TO SUPPORT NUTRITION/HYDRATION NEEDS WAS NOT MET. NURSING STAFF MET GOAL RE: ORAL CARE RECOMMENDATIONS: 1. NO FURTHER SKILLED ST INTERVENTION IS INDICATED 2. CONTINUE STRICT NPO STATUS 3. CONSIDER PEG FOR REGIONAL OPERATIONS DIRECTOR NUTRITION/HYDRATION SUPPORT 4. ORAL CARE TID TO PREVENT POTENTIAL DEVELOPMENT OF NOSOCOMIAL PNEUMONIA
--- NOTE | 2020-08-06 19:28 | NUR ---
NURSE HAND-OFF REPORT: Important Events on Shift:[Titrating O2] Patient Status: [Stable] Diet: [Osmolite 1.5 20cc/hr] Pending Orders: [NA] Pending Results/Labs:[NA] Pending MD notification:[NA] Latest Vital Signs: Temperature 96.8 , Pulse 78 , B/P 166 /70 , Respiratory Rate 18 , O2 SAT 95 , Simple Mask, O2 Flow Rate 4.0 . Vital Sign Comment: [Stable] EKG Rhythm: SR with PACs Rhythm change?: N MD Notified?: N -Dr. Virgil KURTZ Response: Order Received& Read Back Latest José Fall Score: 75 Fall Risk: High Risk Safety Measures: Call light Within Reach, Bed Alarm Zone 2, Side Rails Side Rails x3, Bed position Low and Locked. Fall Precautions: Yellow Socks Yellow Gown Door Sign Patient Fall Education Report given to [BLANE Ramirez].
--- NOTE | 2020-08-06 19:43 | NUR ---
NURSE NOTES: Report received from BLANE Burton. Observed pt lying in the bed, confused. ST with PACs, HR of 110 noted. Noted pt saturating at 88% on venturi 10L, changed to Non-rebreather 15L, saturating now at 93%. NGT intact, running Osmolite 20cc/hr. F/C intact. IV on R AC 20G, intact. L H 22G, intact, running NS at 100cc/hr. No distress on pino wrists noted. Bed in the lowest position. Side rails up x3. will continue to monitor.
[2020-08-06 20:00] VITALS: BP 150/100
[2020-08-06] MEDS: Tamsulosin 0.4mg cap ORAL SCH (20:06)
[2020-08-07] VITALS (7 sets, daily range): BP systolic 132–170; BP diastolic 62–101
--- NOTE | 2020-08-07 00:12 | Cardiology Progress Note ---
Subjective DATE OF SERVICE: Aug 06, 2020 Still congested and SOB. Very confused, but less agitated NPO due to aspiration risk; NGTube placed. Labile BP readings Monitor: sinus with paroxysmal AFib mostly rate controlled. Objective Last 24 Hour Vital Signs Date Time Temp Pulse Resp B/P (MAP) Pulse Ox O2 Delivery O2 Flow Rate FiO2 08/07/20 00:00 Non-Rebreather 15.0 08/06/20 20:00 Non-Rebreather 4.0 08/06/20 20:00 113 08/06/20 20:00 15.0 08/06/20 20:00 97.7 71 22 150/100 (117) 94 08/06/20 19:54 112 20 96 Non-Rebreather 15.0 100 08/06/20 19:44 94 Non-Rebreather 15.0 100 08/06/20 19:44 110 20 94 Non-Rebreather 15.0 100 08/06/20 16:00 Simple Mask 4.0 08/06/20 16:00 96.8 78 18 166/70 (102) 95 08/06/20 15:27 100 08/06/20 14:00 4.0 40 08/06/20 13:53 95 Nasal Cannula 4.0 36 08/06/20 13:34 80 18 97 Venturi Mask 8.0 40 73 18 94 08/06/20 12:00 15.0 40 08/06/20 12:00 109 08/06/20 12:00 97.7 92 18 147/82 (103) 93 08/06/20 12:00 Simple Mask 4.0 08/06/20 08:00 96.3 90 18 161/90 (113) 95 08/06/20 08:00 8.0 40 08/06/20 08:00 Venturi Mask 8.0 08/06/20 07:35 118 08/06/20 07:19 98 Venturi Mask 8.0 40 08/06/20 07:18 88 18 98 Venturi Mask 8.0 40 85 18 96 08/06/20 04:00 8.0 40 08/06/20 04:00 Venturi Mask 8.0 08/06/20 04:00 97.6 94 18 137/69 (91) 97 08/06/20 03:31 100 08/06/20 01:15 8.0 40 08/06/20 01:13 84 20 98 Venturi Mask 8.0 40 89 22 97 ROS: unchanged from my evaluation of 08/02/20 HEENT: normal ENT inspection RHYTHM: NSR, PACs, Afib LUNGS: bilateral rhonchi CARDIAC: normal S1 and S2, irregularly irregular, systolic murmur - 1/6 systolic murmurat apex, rapid rate ABDOMEN: normal bowel sounds, non tender, soft, no organomegaly EXTREMITIES: normal range of motion, trace edema Laboratory Tests Test 08/06/20 05:15 White Blood Count 17.7 K/UL (4.8-10.8) H Red Blood Count 3.72 M/UL (4.70-6.10) L Hemoglobin 11.6 G/DL (14.2-18.0) L Hematocrit 36.5 % (42.0-52.0) L Mean Corpuscular Volume 98 FL (80-99) Mean Corpuscular Hemoglobin 31.2 PG (27.0-31.0) H Mean Corpuscular Hemoglobin Concent 31.8 G/DL (32.0-36.0) L Red Cell Distribution Width 12.5 % (11.6-14.8) Platelet Count 266 K/UL (150-450) Mean Platelet Volume 7.8 FL (6.5-10.1) Neutrophils (%) (Auto) % (45.0-75.0) Lymphocytes (%) (Auto) % (20.0-45.0) Monocytes (%) (Auto) % (1.0-10.0) Eosinophils (%) (Auto) % (0.0-3.0) Basophils (%) (Auto) % (0.0-2.0) Differential Total Cells Counted 100 Neutrophils % (Manual) 92 % (45-75) H Lymphocytes % (Manual) 4 % (20-45) L Monocytes % (Manual) 4 % (1-10) Eosinophils % (Manual) 0 % (0-3) Basophils % (Manual) 0 % (0-2) Band Neutrophils 0 % (0-8) Platelet Estimate Adequate Platelet Morphology Normal Macrocytosis 1+ Sodium Level 138 MMOL/L (136-145) Potassium Level 3.1 MMOL/L (3.5-5.1) L Chloride Level 107 MMOL/L (98-107) Carbon Dioxide Level 23 MMOL/L (21-32) Anion Gap 8 mmol/L (5-15) Blood Urea Nitrogen 21 mg/dL (7-18) H Creatinine 0.6 MG/DL (0.55-1.30) Estimat Glomerular Filtration Rate > 60 mL/min (>60) Glucose Level 113 MG/DL (74-106) H Calcium Level 7.3 MG/DL (8.5-10.1) L Magnesium Level 1.8 MG/DL (1.8-2.4) Total Bilirubin 0.4 MG/DL (0.2-1.0) Aspartate Amino Transf (AST/SGOT) 46 U/L (15-37) H Alanine Aminotransferase (ALT/SGPT) 16 U/L (12-78) Alkaline Phosphatase 57 U/L (46-116) Pro-B-Type Natriuretic Peptide 2252 pg/mL (0-125) H Total Protein 5.6 G/DL (6.4-8.2) L Albumin 1.8 G/DL (3.4-5.0) L Globulin 3.8 g/dL Albumin/Globulin Ratio 0.5 (1.0-2.7) L Microbiology Date/Time Source Procedure Growth Status 08/05/20 21:00 Sputum Induced Gram Stain - Final Resulted 08/05/20 21:00 Sputum Induced Sputum Culture Pending Resulted Assessment/Plan Assessment/Plan Paroxysmal atrial fibrillation with RVR Aspiration risk Hypokalemia Sepsis Healthcare acquired PNA Complicated UTI with indwelling catheter Hyponatremia Severe protein calorie malnutrition Acute myocardial ischemia Respiratory failure with hypoxia Hypovolemia Hypokalemia Leukocytosis persisting Sinus tachycardia CRITICAL & GUARDED Empiric antibiotics Serial troponins NGTube feedings DVT prophylaxis DC IVF Potassium replacement Continue amiodarone Titrate beta katya and anti-HTN regimen. Sarkis Herman MD Aug 07, 2020 00:12
[2020-08-07] MEDS ORDERED: HydrALAZINE 25mg tab ORAL PRN (00:30)
--- NOTE | 2020-08-07 00:48 | NUR ---
RESPIRATORY NOTE: Pt placed on BiPAP per MD order post ABG draw(see lab for results). Pt placed on BiPAP 15/4, backup rate 10, 100%. Pt is on a Facial mask, skin intact, no redness/breakdowns noted. Foam tape applied on pt's nosebridge/cheeks/chin to prevent mask irritations. Pt alert/awake, agitated at this time. B/S pino. diminished, nonproductive cough. BiPAP plugged into red outlet, alarms on & audible. RN at bedside. Will continue to monitor pt.
[2020-08-07] MEDS: Levalbuterol Inh UD 1.25mg/0.5ml HHN SCH ×4 (00:52→19:00)
[2020-08-07] MEDS ORDERED: Sodium Chloride for KCL Premix x 2hrs IV SCH (01:00)
--- NOTE | 2020-08-07 01:00 | NUR ---
NURSE NOTES: Noted pt BP of 180/100, HR of 170, and desaturating at 86% on Non-rebreather mask. notified and new order received, and carried out. Pt now on bipap 15/, 100%, saturating at 96% at this time. BP noted to be 136/86, HR 180 noted. Lasix and 20meq KCL given per order. Will continue to monitor. Addendum: 08/07/20 at 0138 by Sofi Watts RN ABG done and non-rebreather mask changed to bipap per order.
--- NOTE | 2020-08-07 01:20 | NUR ---
NURSE NOTES: Noted pt HR still on 180s. EKG done, noted SVT with HR of 182. Will continue to monitor.
[2020-08-07] MEDS ORDERED: dilTIAZem HCl 25mg/5ml Inj IVP SCH (02:30)
--- NOTE | 2020-08-07 02:35 | NUR ---
NURSE NOTES: Notified regarding sustained HR of 180s, new order received; cardizem 15mg IVP, and carried out. Noted HR of 100-120 noted. Will continue to monitor.
--- NOTE | 2020-08-07 04:00 | NUR ---
NURSE NOTES: Noted pt HR of 120s, ST and PAC, PVC, and Afib noted. BP 135/80 noted. Tolerating bipap, saturating at 99% at this time. Pt arousable, mildly agitated. Will continue to monitor.
[2020-08-07] MEDS: Piperacillin/Tazobactam 3.375 GM in NS 110 ML IVPB SCH ×3 (05:55→22:18)
--- NOTE | 2020-08-07 06:20 | NUR ---
NURSE NOTES: Dr. Gilmore at the bedside, pt condition updated. Will continue to monitor.
--- NOTE | 2020-08-07 06:34 | General Progress Note ---
Subjective ROS Limited/Unobtainable: No Constitutional: Reports: malaise, weakness HEENT: Reports: no symptoms Cardiovascular: Reports: no symptoms Respiratory: Reports: shortness of breath Gastrointestinal/Abdominal: Reports: difficulty swallowing Genitourinary: Reports: no symptoms Neurologic/Psychiatric: Reports: pre-existing deficit Endocrine: Reports: no symptoms Hematologic/Lymphatic: Reports: no symptoms Allergies: Coded Allergies: No Known Allergies (Unverified , 08/02/20) All Systems: reviewed and negative except above Subjective worsening hypoxemia and sob. now on bipap. poorly responsive. d/w night RN Objective Last 24 Hour Vital Signs Date Time Temp Pulse Resp B/P (MAP) Pulse Ox O2 Delivery O2 Flow Rate FiO2 08/07/20 05:06 128 36 99 100 08/07/20 04:00 99.1 120 24 141/62 (88) 100 08/07/20 04:00 114 08/07/20 04:00 Bi-pap 15.0 08/07/20 04:00 100 08/07/20 03:10 153 37 96 100 08/07/20 02:28 180 140/96 08/07/20 02:00 180 08/07/20 01:00 98.5 170 30 136/86 (103) 96 08/07/20 00:44 183 38 94 100 08/07/20 00:00 133 08/07/20 00:00 98.5 170 30 170/101 (124) 96 08/07/20 00:00 Bi-pap 15.0 08/06/20 20:00 Non-Rebreather 4.0 08/06/20 20:00 113 08/06/20 20:00 15.0 08/06/20 20:00 97.7 71 22 150/100 (117) 94 08/06/20 19:54 112 20 96 Non-Rebreather 15.0 100 08/06/20 19:44 94 Non-Rebreather 15.0 100 08/06/20 19:44 110 20 94 Non-Rebreather 15.0 100 08/06/20 16:00 Simple Mask 4.0 08/06/20 16:00 96.8 78 18 166/70 (102) 95 08/06/20 15:27 100 08/06/20 14:00 4.0 40 08/06/20 13:53 95 Nasal Cannula 4.0 36 08/06/20 13:34 80 18 97 Venturi Mask 8.0 40 73 18 94 08/06/20 12:00 15.0 40 08/06/20 12:00 109 08/06/20 12:00 97.7 92 18 147/82 (103) 93 08/06/20 12:00 Simple Mask 4.0 08/06/20 08:00 96.3 90 18 161/90 (113) 95 08/06/20 08:00 8.0 40 08/06/20 08:00 Venturi Mask 8.0 08/06/20 07:35 118 08/06/20 07:19 98 Venturi Mask 8.0 40 08/06/20 07:18 88 18 98 Venturi Mask 8.0 40 85 18 96 Intake and Output0 08/06/20 08/07/20 19:00 07:00 Intake Total 1550 ml 340 ml Output Total 750 ml Balance 800 ml 340 ml Free Water 240 ml 60 ml IV Total 1050 ml 200 ml Tube Feeding 170 ml 80 ml Other 90 ml Output Urine Total 750 ml Laboratory Tests 08/07/20 00:13: Arterial Blood pH 7.394, Arterial Blood Partial Pressure CO2 38.0, Arterial Blood Partial Pressure O2 49.3*L, Arterial Blood HCO3 22.7, Arterial Blood Oxygen Saturation 86.1*L, Arterial Blood Base Excess -1.8, Emile Test Positive Height (Feet): 5 Height (Inches): 5.00 Weight (Pounds): 99 Objective General Appearance: WD/WN, confused, thin. on bipap EENT: normal ENT inspection Neck: non-tender, normal alignment, supple Cardiovascular: normal rate, regular rhythm Respiratory/Chest: chest wall non-tender, lungs clear, normal breath sounds, no respiratory distress, no accessory muscle use Abdomen: normal bowel sounds, non tender, soft, no organomegaly Edema: no edema noted Arm (L), no edema noted Arm (R) Assessment/Plan Problem List: (1) Pneumonia ICD Codes: J18.9 - Pneumonia, unspecified organism SNOMED: 154381960 (2) Hypoxia ICD Codes: R09.02 - Hypoxemia SNOMED: 836303134 (3) AMS (altered mental status) ICD Codes: R41.82 - Altered mental status, unspecified SNOMED: 953087627 (4) UTI (urinary tract infection) ICD Codes: N39.0 - Urinary tract infection, site not specified SNOMED: 92865215 (5) Sepsis ICD Codes: A41.9 - Sepsis, unspecified organism SNOMED: 89489979 Status: stable, not improved Assessment/Plan: bipap as needed check abg iv abx per follow up cxr speech rx/follow up dvt/stress ulcer prophylaxis d/w family poc ngt feeds d/w family x 10 mins Chavez Gilmore MD Aug 07, 2020 06:34
--- NOTE | 2020-08-07 07:24 | NUR ---
NURSE HAND-OFF REPORT: Important Events on Shift: SVT, AFIB. Cardizem 15mg IVP given, HR at 120s now. BP stable. Desat on NBM, changed to BIPAP. Patient Status: On bipap 15/, 100%. Diet: NGT feeding on hold per BIPAP use. Pending Orders: [] Pending Results/Labs:[] Pending MD notification:[] Latest Vital Signs: Temperature 99.1 , Pulse 128 , B/P 141 /62 , Respiratory Rate 36 , O2 SAT 99 , Bi-pap, O2 Flow Rate 15.0 . Vital Sign Comment: [] EKG Rhythm: ST and Afib Rhythm change?: N MD Notified?: N -Dr.Kattan KURTZ Response: Order Received& Read Back Latest José Fall Score: 75 Fall Risk: High Risk Safety Measures: Call light Within Reach, Bed Alarm Zone 2, Side Rails Side Rails x3, Bed position Low and Locked. Fall Precautions: Yellow Socks Yellow Gown Door Sign Patient Fall Education Report given to BLANE Harrison.
--- NOTE | 2020-08-07 08:00 | NUR ---
nurse notes: pt in bed on bipap. pt on monitor technician no signs of cardiac distress, tachy. Bed in lowest position and locked, call light within reach. pt on [place] is stopped pt on bipap. pt has restrains and has springer that is patent. L IV patent . will continue to monitor pt.
[2020-08-07 10:03] LABS: HEMATOCRIT 37.8 % (42.0-52.0); HEMOGLOBIN 12.7 G/DL (14.2-18.0); MEAN CORPUSCULAR VOLUME 96 FL (80-99); PLATELET COUNT 267 K/UL (150-450); RED BLOOD COUNT 3.95 M/UL (4.70-6.10); RED CELL DISTRIBUTION WIDTH 12.1 % (11.6-14.8); WHITE BLOOD COUNT 21.9 K/UL (4.8-10.8)
[2020-08-07] MEDS: Levodopa/Carbidopa 25/100 tab ORAL SCH ×3 (10:18→19:10)
[2020-08-07] MEDS: Amiodarone 200mg tab ORAL SCH ×2 (10:18→20:17)
[2020-08-07] MEDS: Vancomycin 750mg/D5W 275ml IVPB SCH ×2 (10:20)
[2020-08-07] MEDS: Heparin 5000 units/ml inj SUBQ SCH ×2 (10:22→20:19)
--- NOTE | 2020-08-07 10:25 | NUR ---
RADIOLOGY DEPT., CHEST X-RAY DONE.-P.DYE
[2020-08-07 10:36] LABS: ALANINE AMINOTRANSFERASE 19 U/L (12-78); ALBUMIN 1.7 G/DL (3.4-5.0); ALBUMIN/GLOBULIN RATIO 0.4 (1.0-2.7); ALKALINE PHOSPHATASE 64 U/L (46-116); ANION GAP 4 mmol/L (5-15); ASPARTATE AMINO TRANSFERASE 31 U/L (15-37); BILIRUBIN,TOTAL 0.6 MG/DL (0.2-1.0); BLOOD UREA NITROGEN 19 mg/dL (7-18); CALCIUM 7.9 MG/DL (8.5-10.1); CARBON DIOXIDE 29 MMOL/L (21-32); CHLORIDE 102 MMOL/L (98-107); CREATININE 0.8 MG/DL (0.55-1.30); POTASSIUM 3.3 MMOL/L (3.5-5.1); SODIUM 135 MMOL/L (136-145)
[2020-08-07 11:48] LABS: HEMATOCRIT 40.5 % (42.0-52.0); HEMOGLOBIN 13.2 G/DL (14.2-18.0); MEAN CORPUSCULAR VOLUME 97 FL (80-99); PLATELET COUNT 263 K/UL (150-450); RED BLOOD COUNT 4.17 M/UL (4.70-6.10); RED CELL DISTRIBUTION WIDTH 12.6 % (11.6-14.8); WHITE BLOOD COUNT 19.9 K/UL (4.8-10.8)
[2020-08-07 12:07] LABS: ALBUMIN 1.7 G/DL (3.4-5.0); ALBUMIN/GLOBULIN RATIO 0.4 (1.0-2.7); ALKALINE PHOSPHATASE 58 U/L (46-116); ANION GAP 4 mmol/L (5-15); ASPARTATE AMINO TRANSFERASE 26 U/L (15-37); BILIRUBIN,TOTAL 0.7 MG/DL (0.2-1.0); BLOOD UREA NITROGEN 19 mg/dL (7-18); CALCIUM 7.6 MG/DL (8.5-10.1); CARBON DIOXIDE 32 MMOL/L (21-32); CHLORIDE 101 MMOL/L (98-107); CREATININE 0.8 MG/DL (0.55-1.30); POTASSIUM 3.2 MMOL/L (3.5-5.1); SODIUM 137 MMOL/L (136-145)
--- NOTE | 2020-08-07 12:43 | Pulmonology Progress Note ---
Subjective ROS Limited/Unobtainable: No Allergies: Coded Allergies: No Known Allergies (Unverified , 08/02/20) All Systems: reviewed and negative except above Objective Last 24 Hour Vital Signs Date Time Temp Pulse Resp B/P (MAP) Pulse Ox O2 Delivery O2 Flow Rate FiO2 08/07/20 10:56 68 30 100 100 08/07/20 09:08 97 40 100 100 08/07/20 08:00 Bi-pap 15.0 08/07/20 08:00 118 08/07/20 08:00 100 08/07/20 07:05 86 36 100 100 08/07/20 05:06 128 36 99 100 08/07/20 04:00 99.1 120 24 141/62 (88) 100 08/07/20 04:00 114 08/07/20 04:00 Bi-pap 15.0 08/07/20 04:00 100 08/07/20 03:10 153 37 96 100 08/07/20 02:28 180 140/96 08/07/20 02:00 180 08/07/20 01:00 98.5 170 30 136/86 (103) 96 08/07/20 00:44 183 38 94 100 08/07/20 00:00 133 08/07/20 00:00 98.5 170 30 170/101 (124) 96 08/07/20 00:00 Bi-pap 15.0 08/06/20 20:00 Non-Rebreather 4.0 08/06/20 20:00 113 08/06/20 20:00 15.0 08/06/20 20:00 97.7 71 22 150/100 (117) 94 08/06/20 19:54 112 20 96 Non-Rebreather 15.0 100 08/06/20 19:44 94 Non-Rebreather 15.0 100 08/06/20 19:44 110 20 94 Non-Rebreather 15.0 100 08/06/20 16:00 Simple Mask 4.0 08/06/20 16:00 96.8 78 18 166/70 (102) 95 08/06/20 15:27 100 08/06/20 14:00 4.0 40 08/06/20 13:53 95 Nasal Cannula 4.0 36 08/06/20 13:34 80 18 97 Venturi Mask 8.0 40 73 18 94 Intake and Output 08/06/20 08/07/20 19:00 07:00 Intake Total 1550 ml 340 ml Output Total 750 ml 1500 ml Balance 800 ml -1160 ml Free Water 240 ml 60 ml IV Total 1050 ml 200 ml Tube Feeding 170 ml 80 ml Other 90 ml Output Urine Total 750 ml 1500 ml Microbiology Date/Time Source Procedure Growth Status 08/05/20 21:00 Sputum Induced Gram Stain - Final Resulted 08/05/20 21:00 Sputum Induced Sputum Culture Pending Resulted Laboratory Tests 08/07/20 00:13: Arterial Blood pH 7.394, Arterial Blood Partial Pressure CO2 38.0, Arterial Blood Partial Pressure O2 49.3*L, Arterial Blood HCO3 22.7, Arterial Blood Oxygen Saturation 86.1*L, Arterial Blood Base Excess -1.8, Emile Test Positive 08/07/20 07:24: Arterial Blood pH 7.468H, Arterial Blood Partial Pressure CO2 37.9, Arterial Blood Partial Pressure O2 65.3L, Arterial Blood HCO3 26.8H, Arterial Blood Oxygen Saturation 94.0L, Arterial Blood Base Excess 3.1H, Emile Test Positive 08/07/20 09:15: White Blood Count 21.9H, Red Blood Count 3.95L, Hemoglobin 12.7L, Hematocrit 37.8L, Mean Corpuscular Volume 96, Mean Corpuscular Hemoglobin 32.2H, Mean Corpuscular Hemoglobin Concent 33.7, Red Cell Distribution Width 12.1, Platelet Count 267, Mean Platelet Volume 7.9, Neutrophils (%) (Auto) , Lymphocytes (%) (Auto) , Monocytes (%) (Auto) , Eosinophils (%) (Auto) , Basophils (%) (Auto) , Differential Total Cells Counted 100, Neutrophils % (Manual) 96H, Lymphocytes % (Manual) 2L, Monocytes % (Manual) 2, Eosinophils % (Manual) 0, Basophils % (Manual) 0, Band Neutrophils 0, Platelet Estimate Adequate, Platelet Morphology Normal, Anisocytosis 1+, Sodium Level 135L, Potassium Level 3.3L, Chloride Level 102, Carbon Dioxide Level 29, Anion Gap 4L, Blood Urea Nitrogen 19H, Creatinine 0.8, Estimat Glomerular Filtration Rate > 60, Glucose Level 145H, Calcium Level 7.9L, Magnesium Level 1.6L, Total Bilirubin 0.6, Aspartate Amino Transf (AST/SGOT) 31, Alanine Aminotransferase (ALT/SGPT) 19, Alkaline Phosphatase 64, Pro-B-Type Natriuretic Peptide 3242H, Total Protein 5.8L, Albumin 1.7L, Globulin 4.1, Albumin/Globulin Ratio 0.4L, Vancomycin Level Trough 12.5H 08/07/20 11:40: White Blood Count 19.9H, Red Blood Count 4.17L, Hemoglobin 13.2L, Hematocrit 40.5L, Mean Corpuscular Volume 97, Mean Corpuscular Hemoglobin 31.6H, Mean Corpuscular Hemoglobin Concent 32.5, Red Cell Distribution Width 12.6, Platelet Count 263, Mean Platelet Volume 8.7, Neutrophils (%) (Auto) , Lymphocytes (%) (Auto) , Monocytes (%) (Auto) , Eosinophils (%) (Auto) , Basophils (%) (Auto) , Differential Total Cells Counted 100, Neutrophils % (Manual) 92H, Lymphocytes % (Manual) 1L, Monocytes % (Manual) 4, Eosinophils % (Manual) 0, Basophils % (Manual) 0, Band Neutrophils 3, Platelet Estimate Adequate, Platelet Morphology Normal, Anisocytosis 1+, Sodium Level 137, Potassium Level 3.2L, Chloride Level 101, Carbon Dioxide Level 32, Anion Gap 4L, Blood Urea Nitrogen 19H, Creatinine 0.8, Estimat Glomerular Filtration Rate > 60, Glucose Level 163H, Calcium Level 7.6L, Total Bilirubin 0.7, Aspartate Amino Transf (AST/SGOT) 26, Alanine Aminotransferase (ALT/SGPT) [Pending], Alkaline Phosphatase 58, Total Protein 5.7L, Albumin 1.7L, Globulin 4.0, Albumin/Globulin Ratio 0.4L, Troponin I 0.160H Current Medications Medications (Trade) Dose Ordered Sig/Javon Route PRN Reason Start Time Stop Time Status Last Admin Dose Admin Acetaminophen (Tylenol) 650 mg Q4H PRN ORAL Mild Pain (Pain Scale 1-3) 08/03/20 01:15 09/02/20 01:14 08/07/20 10:28 Acetaminophen (Tylenol) 650 mg Q4H PRN RECTAL Mild Pain (Pain Scale 1-3) 08/03/20 01:15 09/02/20 01:14 08/04/20 18:32 Amiodarone HCl (Cordarone) 200 mg EVERY 12 HOURS ORAL 08/05/20 13:15 11/03/20 13:14 08/07/20 10:18 Barium Sulfate (Varibar Honey) 250 ml NOW PRN Radiology Procedure 08/05/20 08:00 08/08/20 07:59 Barium Sulfate (Varibar [place]) 230 ml NOW PRN Radiology Procedure 08/05/20 08:00 08/08/20 07:59 Barium Sulfate (Varibar Pudding) 230 ml NOW PRN Radiology Procedure 08/05/20 08:00 08/08/20 07:59 Barium Sulfate (Varibar Thin Liquid powder) 148 gm NOW PRN Radiology Procedure 08/05/20 08:00 08/08/20 07:59 Carbidopa/Levodopa (Sinemet 25/100) 1 tab THREE TIMES A DAY ORAL 08/03/20 09:00 09/02/20 08:59 08/07/20 10:18 Heparin Sodium (Porcine) (Heparin 5000 units/ml) 5,000 units EVERY 12 HOURS SUBQ 08/03/20 09:00 09/17/20 08:59 08/07/20 10:22 Hydralazine HCl (Apresoline) 25 mg Q6H PRN ORAL SBP above 160 08/07/20 00:30 11/05/20 00:29 Levalbuterol HCl (Xopenex) 1.25 mg Q6HRT HHN 08/07/20 01:00 08/12/20 00:59 08/07/20 07:32 Piperacillin Sod/ Tazobactam Sod 3.375 gm/Sodium Chloride 110 ml @ 27.5 mls/hr EVERY 8 HOURS IVPB 08/03/20 06:00 08/08/20 05:59 08/07/20 05:55 Tamsulosin HCl (Flomax) 0.4 mg BEDTIME ORAL 08/03/20 21:00 09/02/20 20:59 08/06/20 20:06 Vancomycin HCl (Vanco pharmacy to dose) 1 ea DAILY PRN MISC Per rx protocol 08/03/20 01:00 09/02/20 00:59 Vancomycin HCl 1 gm/Dextrose 275 ml @ 183.708 mls/hr Q12H IVPB 08/07/20 22:00 08/12/20 21:59 Eriberto Valencia MD Aug 07, 2020 12:43
--- NOTE | 2020-08-07 12:43 | Consultation ---
Consult Note Consult Note 89-year-old male transferred from a longterm facility with complaints of shortness of breath. The patient is currently confused and is unable to provide any history. Patient with recent urinary tract infection. + worsening shortness of breath and was transferred to the emergency room with noted hypoxemia and pneumonia. On evaluation there, he required a Venturi mask for hypoxemia. COVID test was negative. Patient admitted and I was asked to assist with his pulmonary status PAST MEDICAL HISTORY: hypertension, dementia, recurrent urinary tract infections, falls PAST SURGICAL HISTORY: Unknown. CURRENT MEDICATIONS: reviewed. ALLERGIES: None. FAMILY HISTORY: Unknown. SOCIAL HISTORY: There is no known history of tobacco, ethanol, or drugs. SNF patient REVIEW OF SYSTEMS: unobtainable PHYSICAL EXAMINATION: NAD GENERAL: The patient is thin, elderly, in no apparent distress. HEENT: Head is normocephalic and atraumatic. Sclerae are anicteric. Oropharynx is clear. Mucous membranes are dry. NECK: Supple. HEART: Regular rate and rhythm. LUNGS: scattered rhonchi. reduced air entry ABDOMEN: Soft, nontender, nondistended. no HSM EXTREMITIES: Without clubbing, cyanosis, or edema. NEUROLOGIC: confused; nonfocal LABORATORY DATA: Labs Test 08/04/20 15:30 08/05/20 01:30 08/05/20 04:50 08/05/20 21:10 Sodium Level 136 MMOL/L (136-145) 135 MMOL/L (136-145) Potassium Level 3.7 MMOL/L (3.5-5.1) 3.4 MMOL/L (3.5-5.1) Chloride Level 102 MMOL/L (98-107) 104 MMOL/L (98-107) Carbon Dioxide Level 21 MMOL/L (21-32) 22 MMOL/L (21-32) Anion Gap 13 mmol/L (5-15) 10 mmol/L (5-15) Blood Urea Nitrogen 18 mg/dL (7-18) 25 mg/dL (7-18) Creatinine 0.7 MG/DL (0.55-1.30) 0.8 MG/DL (0.55-1.30) Estimat Glomerular Filtration Rate > 60 mL/min (>60) > 60 mL/min (>60) Glucose Level 91 MG/DL (74-106) 120 MG/DL (74-106) Calcium Level 8.2 MG/DL (8.5-10.1) 7.7 MG/DL (8.5-10.1) Magnesium Level 2.1 MG/DL (1.8-2.4) 1.8 MG/DL (1.8-2.4) Urine Color [place] Urine Appearance Cloudy Urine pH 5 (4.5-8.0) Urine Specific [place] 1.020 (1.005-1.035) Urine Protein 3+ (NEGATIVE) Urine Glucose (UA) Negative (NEGATIVE) Urine Ketones 4+ (NEGATIVE) Urine Blood 5+ (NEGATIVE) Urine Nitrite Positive (NEGATIVE) Urine Bilirubin 1+ (NEGATIVE) Urine Ictotest Negative (NEGATIVE) Urine Urobilinogen 4 MG/DL (0.0-1.0) Urine Leukocyte Esterase 2+ (NEGATIVE) Urine RBC Tntc /HPF (0 - 0) Urine WBC 20-30 /HPF (0 - 0) Urine Squamous Epithelial Cells None /LPF (NONE/OCC) Urine Bacteria Many /HPF (NONE) White Blood Count 20.4 K/UL (4.8-10.8) Red Blood Count 3.49 M/UL (4.70-6.10) Hemoglobin 10.9 G/DL (14.2-18.0) Hematocrit 33.9 % (42.0-52.0) Mean Corpuscular Volume 97 FL (80-99) Mean Corpuscular Hemoglobin 31.3 PG (27.0-31.0) Mean Corpuscular Hemoglobin Concent 32.2 G/DL (32.0-36.0) Red Cell Distribution Width 12.2 % (11.6-14.8) Platelet Count 262 K/UL (150-450) Mean Platelet Volume 8.1 FL (6.5-10.1) Neutrophils (%) (Auto) % (45.0-75.0) Lymphocytes (%) (Auto) % (20.0-45.0) Monocytes (%) (Auto) % (1.0-10.0) Eosinophils (%) (Auto) % (0.0-3.0) Basophils (%) (Auto) % (0.0-2.0) Differential Total Cells Counted 100 Neutrophils % (Manual) 95 % (45-75) Lymphocytes % (Manual) 3 % (20-45) Monocytes % (Manual) 2 % (1-10) Eosinophils % (Manual) 0 % (0-3) Basophils % (Manual) 0 % (0-2) Band Neutrophils 0 % (0-8) Platelet Estimate Adequate Platelet Morphology Normal Red Blood Cell Morphology Hypochromasia 1+ Total Bilirubin 0.5 MG/DL (0.2-1.0) Aspartate Amino Transf (AST/SGOT) 67 U/L (15-37) Alanine Aminotransferase (ALT/SGPT) 36 U/L (12-78) Alkaline Phosphatase 60 U/L (46-116) Troponin I 0.220 ng/mL (0.000-0.056) Pro-B-Type Natriuretic Peptide 2087 pg/mL (0-125) Total Protein 5.7 G/DL (6.4-8.2) Albumin 2.0 G/DL (3.4-5.0) Globulin 3.7 g/dL Albumin/Globulin Ratio 0.5 (1.0-2.7) Vancomycin Level Trough 5.9 ug/mL (5.0-12.0) Test 08/06/20 05:15 08/07/20 00:13 08/07/20 07:24 08/07/20 09:15 White Blood Count 17.7 K/UL (4.8-10.8) 21.9 K/UL (4.8-10.8) Red Blood Count 3.72 M/UL (4.70-6.10) 3.95 M/UL (4.70-6.10) Hemoglobin 11.6 G/DL (14.2-18.0) 12.7 G/DL (14.2-18.0) Hematocrit 36.5 % (42.0-52.0) 37.8 % (42.0-52.0) Mean Corpuscular Volume 98 FL (80-99) 96 FL (80-99) Mean Corpuscular Hemoglobin 31.2 PG (27.0-31.0) 32.2 PG (27.0-31.0) Mean Corpuscular Hemoglobin Concent 31.8 G/DL (32.0-36.0) 33.7 G/DL (32.0-36.0) Red Cell Distribution Width 12.5 % (11.6-14.8) 12.1 % (11.6-14.8) Platelet Count 266 K/UL (150-450) 267 K/UL (150-450) Mean Platelet Volume 7.8 FL (6.5-10.1) 7.9 FL (6.5-10.1) Neutrophils (%) (Auto) % (45.0-75.0) % (45.0-75.0) Lymphocytes (%) (Auto) % (20.0-45.0) % (20.0-45.0) Monocytes (%) (Auto) % (1.0-10.0) % (1.0-10.0) Eosinophils (%) (Auto) % (0.0-3.0) % (0.0-3.0) Basophils (%) (Auto) % (0.0-2.0) % (0.0-2.0) Differential Total Cells Counted 100 100 Neutrophils % (Manual) 92 % (45-75) 96 % (45-75) Lymphocytes % (Manual) 4 % (20-45) 2 % (20-45) Monocytes % (Manual) 4 % (1-10) 2 % (1-10) Eosinophils % (Manual) 0 % (0-3) 0 % (0-3) Basophils % (Manual) 0 % (0-2) 0 % (0-2) Band Neutrophils 0 % (0-8) 0 % (0-8) Platelet Estimate Adequate Adequate Platelet Morphology Normal Normal Macrocytosis 1+ Sodium Level 138 MMOL/L (136-145) 135 MMOL/L (136-145) Potassium Level 3.1 MMOL/L (3.5-5.1) 3.3 MMOL/L (3.5-5.1) Chloride Level 107 MMOL/L (98-107) 102 MMOL/L (98-107) Carbon Dioxide Level 23 MMOL/L (21-32) 29 MMOL/L (21-32) Anion Gap 8 mmol/L (5-15) 4 mmol/L (5-15) Blood Urea Nitrogen 21 mg/dL (7-18) 19 mg/dL (7-18) Creatinine 0.6 MG/DL (0.55-1.30) 0.8 MG/DL (0.55-1.30) Estimat Glomerular Filtration Rate > 60 mL/min (>60) > 60 mL/min (>60) Glucose Level 113 MG/DL (74-106) 145 MG/DL (74-106) Calcium Level 7.3 MG/DL (8.5-10.1) 7.9 MG/DL (8.5-10.1) Magnesium Level 1.8 MG/DL (1.8-2.4) 1.6 MG/DL (1.8-2.4) Total Bilirubin 0.4 MG/DL (0.2-1.0) 0.6 MG/DL (0.2-1.0) Aspartate Amino Transf (AST/SGOT) 46 U/L (15-37) 31 U/L (15-37) Alanine Aminotransferase (ALT/SGPT) 16 U/L (12-78) 19 U/L (12-78) Alkaline Phosphatase 57 U/L (46-116) 64 U/L (46-116) Pro-B-Type Natriuretic Peptide 2252 pg/mL (0-125) 3242 pg/mL (0-125) Total Protein 5.6 G/DL (6.4-8.2) 5.8 G/DL (6.4-8.2) Albumin 1.8 G/DL (3.4-5.0) 1.7 G/DL (3.4-5.0) Globulin 3.8 g/dL 4.1 g/dL Albumin/Globulin Ratio 0.5 (1.0-2.7) 0.4 (1.0-2.7) Arterial Blood pH 7.394 (7.350-7.450) 7.468 (7.350-7.450) Arterial Blood Partial Pressure CO2 38.0 mmHg (35.0-45.0) 37.9 mmHg (35.0-45.0) Arterial Blood Partial Pressure O2 49.3 mmHg (75.0-100.0) 65.3 mmHg (75.0-100.0) Arterial Blood HCO3 22.7 mmol/L (22.0-26.0) 26.8 mmol/L (22.0-26.0) Arterial Blood Oxygen Saturation 86.1 % (95-100) 94.0 % (95-100) Arterial Blood Base Excess -1.8 (-2-2) 3.1 (-2-2) Emile Test Positive Positive Anisocytosis 1+ Vancomycin Level Trough 12.5 ug/mL (5.0-12.0) Test 08/07/20 11:40 White Blood Count 19.9 K/UL (4.8-10.8) Red Blood Count 4.17 M/UL (4.70-6.10) Hemoglobin 13.2 G/DL (14.2-18.0) Hematocrit 40.5 % (42.0-52.0) Mean Corpuscular Volume 97 FL (80-99) Mean Corpuscular Hemoglobin 31.6 PG (27.0-31.0) Mean Corpuscular Hemoglobin Concent 32.5 G/DL (32.0-36.0) Red Cell Distribution Width 12.6 % (11.6-14.8) Platelet Count 263 K/UL (150-450) Mean Platelet Volume 8.7 FL (6.5-10.1) Neutrophils (%) (Auto) % (45.0-75.0) Lymphocytes (%) (Auto) % (20.0-45.0) Monocytes (%) (Auto) % (1.0-10.0) Eosinophils (%) (Auto) % (0.0-3.0) Basophils (%) (Auto) % (0.0-2.0) Differential Total Cells Counted 100 Neutrophils % (Manual) 92 % (45-75) Lymphocytes % (Manual) 1 % (20-45) Monocytes % (Manual) 4 % (1-10) Eosinophils % (Manual) 0 % (0-3) Basophils % (Manual) 0 % (0-2) Band Neutrophils 3 % (0-8) Platelet Estimate Adequate Platelet Morphology Normal Anisocytosis 1+ Sodium Level 137 MMOL/L (136-145) Potassium Level 3.2 MMOL/L (3.5-5.1) Chloride Level 101 MMOL/L (98-107) Carbon Dioxide Level 32 MMOL/L (21-32) Anion Gap 4 mmol/L (5-15) Blood Urea Nitrogen 19 mg/dL (7-18) Creatinine 0.8 MG/DL (0.55-1.30) Estimat Glomerular Filtration Rate > 60 mL/min (>60) Glucose Level 163 MG/DL (74-106) Calcium Level 7.6 MG/DL (8.5-10.1) Total Bilirubin 0.7 MG/DL (0.2-1.0) Aspartate Amino Transf (AST/SGOT) 26 U/L (15-37) Alkaline Phosphatase 58 U/L (46-116) Troponin I 0.160 ng/mL (0.000-0.056) Total Protein 5.7 G/DL (6.4-8.2) Albumin 1.7 G/DL (3.4-5.0) Globulin 4.0 g/dL Albumin/Globulin Ratio 0.4 (1.0-2.7) ASSESSMENT: chronic encephalopathy, dementia, hypertension, recurrent falls, and urinary tract infection, hypoxemia, probable aspiration pneumonia. PLAN care noted respiratory care oxygen follow up cultures monitor imaging DVT prophylaxis monitor oxygen needs impression, plan, and exam edited and reviewed in detail care discussed with Eriberto Gilliland MD Aug 07, 2020 12:43
[2020-08-07 12:52] LABS: ALANINE AMINOTRANSFERASE 7 U/L (12-78)
--- NOTE | 2020-08-07 13:15 | Consultation ---
DATE OF CONSULTATION: 08/07/2020 INFECTIOUS DISEASES CONSULTATION CONSULTING PHYSICIAN: Wagner Christensen MD REFERRING PHYSICIAN: Chavez Gilmore MD REASON FOR CONSULTATION: Pneumonia. HISTORY OF PRESENTING ILLNESS: This is an 89-year-old gentleman with history of hypertension, dementia, urinary tract infection, who comes in with shortness of breath. He was found to have urinary tract infection recently. Now he has been placed on BiPAP. He was found to have pneumonia and an Infectious Diseases consultation has been obtained for antibiotics. PAST MEDICAL HISTORY: 1. History of hypertension. 2. Dementia. 3. Urinary tract infection. SOCIAL HISTORY: No history of smoking, alcohol, or drug use. FAMILY HISTORY: Unknown. REVIEW OF SYSTEMS: Unable to obtain currently. MEDICATIONS: As an inpatient, he is on levalbuterol, hydralazine, IV vancomycin, amiodarone, Flomax, carbidopa/levodopa, subcu heparin, Zosyn, and Tylenol. ALLERGIES: No known drug allergies. PHYSICAL EXAMINATION: VITAL SIGNS: Temperature of 99.1, T-max of 99.1, pulse of 118, respiratory rate 36, blood pressure 141/62, O2 saturation of 99%. HEENT: Pupils equally reactive to light and accommodation. Mouth appears clean without thrush. NECK: Supple. No adenopathy. No JVD. CARDIOVASCULAR: Regular rate and rhythm. No murmurs. LUNGS: Clear to auscultation bilaterally. No crackles. No wheezes. ABDOMEN: Soft, nontender. No organomegaly. EXTREMITIES: No cyanosis. No clubbing. No edema. LABORATORY DATA: White count 21.9, hemoglobin 12.7, hematocrit 37.8, MCV 96, platelet count of 267,000. Sodium 138, potassium 3.1, chloride 107, bicarb 23, BUN 21, creatinine 0.6, glucose 113, calcium 7.3, magnesium 1.8. Total bilirubin 0.4, AST 46, ALT 16, and alkaline phosphatase 57. Beta-natriuretic peptide 2252. Total protein 5.6, albumin 1.8. UA is showing 20-30 white cells. Sputum cultures are pending. COVID-19 test is negative. Rectal swab was negative for VRE. Nasal swab was positive for MRSA. Urine culture is growing coagulase-negative Staph. 08/02/2020 blood cultures are negative. 08/02/2020 COVID-19 test is negative. Chest x-ray is showing right lower lobe pneumonia. Abdominal x-ray is showing opacities in the lungs, large amount of stool in the colon, and small pleural effusion. ASSESSMENT: This an 89-year-old gentleman with history of hypertension, dementia, who comes in and is found to have: 1. Right-sided pneumonia. 2. COVID-19 test is negative. 3. Urinary tract infection. 4. Hypertension. 5. Dementia. 6. Respiratory failure. PLAN: 1. Continue IV vancomycin and Zosyn. 2. We will follow up cultures and adjust antibiotics accordingly. I would like to thank Dr. Gilmore for this consultation. Wagner Christensen M.D. DR: Yessenia JOB#: [id number] CC: Chavez Gilmore M.D.
--- NOTE | 2020-08-07 15:21 | Diagnostic Imaging Report ---
Indication: Shortness of breath Technique: XRAY Chest 1v Comparison: 08/05/2020 Findings: The symptoms of interstitial and confluent alveolar opacities are again seen bilaterally. Not significantly changed compared to prior exam. There is no pneumothorax or significant layering pleural effusion. There is an NG tube which courses below the level of the diaphragms. Heart size grossly stable but heart borders are obscured. Osseous structures stable. Impression: No significant interval change in extensive interstitial and bilateral alveolar infiltrates. NG tube courses below the level of diaphragms, tip beyond the inferior margin of the study.
--- NOTE | 2020-08-07 15:23 | Diagnostic Imaging Report ---
Indication: Cough Technique: XRAY Chest 1v Comparison: 08/05/2020 Findings: Extensive interstitial and bilateral alveolar infiltrates are again seen, slightly worsened in the left lung compared to one day prior. Small left pleural effusion not excluded. No evidence of pneumothorax. There is a new NG tube which courses below the level of the diaphragms, tip beyond the inferior margin of the study. Osseous structures are stable. IMPRESSION: Interval placement of NG/enteric tube which courses below the level of the diaphragms, tip beyond the inferior margin of the film. Slight interval worsening of extensive bilateral interstitial and alveolar infiltrates.
--- NOTE | 2020-08-07 15:25 | Diagnostic Imaging Report ---
Indication: Shortness of breath Technique: XRAY Chest 1v Comparison: 08/02/2020 Findings: Compared to the prior exam there is significant interval worsening of aeration with development of interstitial opacification/edema and bilateral alveolar infiltrates, right greater than left. Small left pleural effusion is suggested. No evidence of pneumothorax. Heart size is stable. No acute osseous abnormality. Impression: Significant interval worsening aeration compared to exam of 08/02/2020. I may be related to significant interval worsening of pneumonia or potentially related to CHF/fluid overload. Clinical correlation and follow-up recommended.
--- NOTE | 2020-08-07 16:07 | Diagnostic Imaging Report ---
Indication: Dysphasia Procedure and findings: Real-time fluoroscopic imaging performed in a lateral projection in conjunction with the speech pathologist evaluation. Variable consistencies of barium given per mouth. Total fluoroscopy time 23.2 seconds. Total fluoroscopy dose 0.49 mGy/. Total number of fluoroscopic images/runs obtained: 2. Findings: Significant abnormalities of both oral and pharyngeal phases of swallowing are demonstrated. Aspiration was noted. IMPRESSION: Abnormal video swallow. Please refer to speech pathology evaluation for more information.
--- NOTE | 2020-08-07 16:58 | Cardiology Report ---
APPROVED REPORT EKG Measurement Heart [id number] <Conclusion> Sinus rhythm with premature atrial complexes Nonspecific T wave abnormality Abnormal ECG
--- NOTE | 2020-08-07 20:00 | NUR ---
NURSE NOTES: Report received from BLANE Harrison. Observed pt lying in the bed. Pt sleeping in the bed, arousable. SR noted on threat monitoring analyst with HR of 82. On continuous bipap 31/12, 100%. NGT intact L Nares, NPO at this time. IV on L H 22G, asymptomatic. No distress on pino wrists. Bed in the lowest position. Side rails up x3. Will continue to monitor.
[2020-08-07] MEDS: Tamsulosin 0.4mg cap ORAL SCH (20:17)
--- NOTE | 2020-08-07 20:40 | NUR ---
NURSE HAND-OFF REPORT: Important Events on Shift: pt on bipap, and complains of chest pain EKG was done. reported to doctor Melia latest labs and that pt is reporting chest pain that goes away after taking tylenol. pt on restrains Patient Status: full Diet: NPO hold [place] tube feed. Pending Orders: Pending Results/Labs: Pending MD notification: Latest Vital Signs: Temperature 98.2 , Pulse 88 , B/P 140 /76 , Respiratory Rate 31 , O2 SAT 100 , Bi-pap, O2 Flow Rate 15.0 . Vital Sign Comment: EKG Rhythm: ST and Afib Rhythm change?: N Notified?: N -Dr.Kattan KURTZ Response: Order Received& Read Back Latest José Fall Score: 75 Fall Risk: High Risk Safety Measures: Call light Within Reach, Bed Alarm Zone 2, Side Rails Side Rails x3, Bed position Low and Locked. Fall Precautions: y Yellow Socks Yellow Gown Door Sign Patient Fall Education Report given to . Addendum: 08/07/20 at 2042 by Christy Wilson RN NURSE HAND-OFF REPORT: Important Events on Shift: pt on bipap, and complains of chest pain EKG was done. reported to doctor Melia latest labs and that pt is reporting chest pain that goes away after taking tylenol. pt on restrains Patient Status: full Diet: NPO hold [place] tube feed. Pending Orders: Pending Results/Labs: Pending notification: Latest Vital Signs: Temperature 98.2 , Pulse 88 , B/P 140 /76 , Respiratory Rate 31 , O2 SAT 100 , Bi-pap, O2 Flow Rate 15.0 . Vital Sign Comment: EKG Rhythm: ST and Afib Rhythm change?: N Notified?: N -Dr.Kattan KURTZ Response: Order Received& Read Back Latest José Fall Score: 75 Fall Risk: High Risk Safety Measures: Call light Within Reach, Bed Alarm Zone 2, Side Rails Side Rails x3, Bed position Low and Locked. Fall Precautions: y Yellow Socks y Yellow Gown y Door Sign Patient Fall Education Report given to Shamika/RN
[2020-08-07] MEDS: Vancomycin 1gm/D5W 275ml IVPB SCH ×2 (22:19)
--- NOTE | 2020-08-07 23:11 | Cardiology Progress Note ---
Subjective DATE OF SERVICE: Aug 07, 2020 Still congested and SOB; on bipap support. Very confused, but less agitated. C /o chest pain that responded to Tylenol. NPO due to aspiration risk; NGTube placed. Labile BP readings Monitor: sinus with paroxysmal AFib. Episode of RVR controlled with IV Cardizem. Objective Last 24 Hour Vital Signs Date Time Temp Pulse Resp B/P (MAP) Pulse Ox O2 Delivery O2 Flow Rate FiO2 08/07/20 19:06 88 31 100 Bi-Pap 100 88 31 100 100 08/07/20 17:12 97 31 98 100 08/07/20 16:00 102 08/07/20 16:00 Bi-pap 15.0 08/07/20 16:00 100 08/07/20 16:00 98.2 91 26 140/76 (97) 100 08/07/20 15:28 89 44 98 100 08/07/20 12:53 58 27 100 100 08/07/20 12:00 Bi-pap 15.0 08/07/20 12:00 100 08/07/20 12:00 97.9 113 26 140/85 (103) 100 08/07/20 12:00 113 08/07/20 10:56 68 30 100 100 08/07/20 09:08 97 40 100 100 08/07/20 08:00 Bi-pap 15.0 08/07/20 08:00 118 08/07/20 08:00 100 08/07/20 08:00 98.9 105 24 132/88 (103) 100 08/07/20 07:05 86 36 100 100 08/07/20 05:06 128 36 99 100 08/07/20 04:00 99.1 120 24 141/62 (88) 100 08/07/20 04:00 114 08/07/20 04:00 Bi-pap 15.0 08/07/20 04:00 100 08/07/20 03:10 153 37 96 100 08/07/20 02:28 180 140/96 08/07/20 02:00 180 08/07/20 01:00 98.5 170 30 136/86 (103) 96 08/07/20 00:44 183 38 94 100 08/07/20 00:00 133 08/07/20 00:00 98.5 170 30 170/101 (124) 96 08/07/20 00:00 Bi-pap 15.0 ROS: unchanged from my evaluation of 08/02/20 HEENT: normal ENT inspection RHYTHM: NSR, PACs, Afib LUNGS: bilateral rhonchi CARDIAC: normal S1 and S2, irregularly irregular, systolic murmur - 1/6 systolic murmurat apex, rapid rate ABDOMEN: normal bowel sounds, non tender, soft, no organomegaly EXTREMITIES: normal range of motion, trace edema Laboratory Tests Test 08/07/20 00:13 08/07/20 07:24 08/07/20 09:15 08/07/20 11:40 Arterial Blood pH 7.394 (7.350-7.450) 7.468 (7.350-7.450) Arterial Blood Partial Pressure CO2 38.0 mmHg (35.0-45.0) 37.9 mmHg (35.0-45.0) Arterial Blood Partial Pressure O2 49.3 mmHg (75.0-100.0) 65.3 mmHg (75.0-100.0) L Arterial Blood HCO3 22.7 mmol/L (22.0-26.0) 26.8 mmol/L (22.0-26.0) H Arterial Blood Oxygen Saturation 86.1 % (95-100) *L 94.0 % (95-100) L Arterial Blood Base Excess -1.8 (-2-2) 3.1 (-2-2) H Emile Test Positive Positive White Blood Count 21.9 K/UL (4.8-10.8) H 19.9 K/UL (4.8-10.8) H Red Blood Count 3.95 M/UL (4.70-6.10) L 4.17 M/UL (4.70-6.10) L Hemoglobin 12.7 G/DL (14.2-18.0) L 13.2 G/DL (14.2-18.0) L Hematocrit 37.8 % (42.0-52.0) L 40.5 % (42.0-52.0) L Mean Corpuscular Volume 96 FL (80-99) 97 FL (80-99) Mean Corpuscular Hemoglobin 32.2 PG (27.0-31.0) H 31.6 PG (27.0-31.0) H Mean Corpuscular Hemoglobin Concent 33.7 G/DL (32.0-36.0) 32.5 G/DL (32.0-36.0) Red Cell Distribution Width 12.1 % (11.6-14.8) 12.6 % (11.6-14.8) Platelet Count 267 K/UL (150-450) 263 K/UL (150-450) Mean Platelet Volume 7.9 FL (6.5-10.1) 8.7 FL (6.5-10.1) Neutrophils (%) (Auto) % (45.0-75.0) % (45.0-75.0) Lymphocytes (%) (Auto) % (20.0-45.0) % (20.0-45.0) Monocytes (%) (Auto) % (1.0-10.0) % (1.0-10.0) Eosinophils (%) (Auto) % (0.0-3.0) % (0.0-3.0) Basophils (%) (Auto) % (0.0-2.0) % (0.0-2.0) Differential Total Cells Counted 100 100 Neutrophils % (Manual) 96 % (45-75) H 92 % (45-75) H Lymphocytes % (Manual) 2 % (20-45) L 1 % (20-45) L Monocytes % (Manual) 2 % (1-10) 4 % (1-10) Eosinophils % (Manual) 0 % (0-3) 0 % (0-3) Basophils % (Manual) 0 % (0-2) 0 % (0-2) Band Neutrophils 0 % (0-8) 3 % (0-8) Platelet Estimate Adequate Adequate Platelet Morphology Normal Normal Anisocytosis 1+ 1+ Sodium Level 135 MMOL/L (136-145) L 137 MMOL/L (136-145) Potassium Level 3.3 MMOL/L (3.5-5.1) L 3.2 MMOL/L (3.5-5.1) L Chloride Level 102 MMOL/L (98-107) 101 MMOL/L (98-107) Carbon Dioxide Level 29 MMOL/L (21-32) 32 MMOL/L (21-32) Anion Gap 4 mmol/L (5-15) L 4 mmol/L (5-15) L Blood Urea Nitrogen 19 mg/dL (7-18) H 19 mg/dL (7-18) H Creatinine 0.8 MG/DL (0.55-1.30) 0.8 MG/DL (0.55-1.30) Estimat Glomerular Filtration Rate > 60 mL/min (>60) > 60 mL/min (>60) Glucose Level 145 MG/DL (74-106) H 163 MG/DL (74-106) H Calcium Level 7.9 MG/DL (8.5-10.1) L 7.6 MG/DL (8.5-10.1) L Magnesium Level 1.6 MG/DL (1.8-2.4) L Total Bilirubin 0.6 MG/DL (0.2-1.0) 0.7 MG/DL (0.2-1.0) Aspartate Amino Transf (AST/SGOT) 31 U/L (15-37) 26 U/L (15-37) Alanine Aminotransferase (ALT/SGPT) 19 U/L (12-78) 7 U/L (12-78) L Alkaline Phosphatase 64 U/L (46-116) 58 U/L (46-116) Pro-B-Type Natriuretic Peptide 3242 pg/mL (0-125) H Total Protein 5.8 G/DL (6.4-8.2) L 5.7 G/DL (6.4-8.2) L Albumin 1.7 G/DL (3.4-5.0) L 1.7 G/DL (3.4-5.0) L Globulin 4.1 g/dL 4.0 g/dL Albumin/Globulin Ratio 0.4 (1.0-2.7) L 0.4 (1.0-2.7) L Vancomycin Level Trough 12.5 ug/mL (5.0-12.0) H Troponin I 0.160 ng/mL (0.000-0.056) Microbiology Date/Time Source Procedure Growth Status 08/05/20 21:00 Sputum Induced Gram Stain - Final Resulted 08/05/20 21:00 Sputum Induced Sputum Culture Pending Resulted Assessment/Plan Assessment/Plan Paroxysmal atrial fibrillation with RVR Acute myocardial ischemia with elevated troponin Aspiration risk Hypokalemia Sepsis Healthcare acquired PNA Complicated UTI with indwelling catheter Hyponatremia Severe protein calorie malnutrition Acute myocardial ischemia Respiratory failure with hypoxia Hypovolemia Hypokalemia Leukocytosis persisting Sinus tachycardia CRITICAL & GUARDED Empiric antibiotics Bipap support NGTube feedings DVT prophylaxis Periodic diuresis based on clinical parameters. Potassium replacement as needed. Continue amiodarone Titrate beta katya and anti-HTN regimen. Sarkis Herman MD Aug 07, 2020 23:11
[2020-08-08] VITALS: BP 147/83
--- NOTE | 2020-08-08 00:19 | NUR ---
NURSE NOTES: Pt sleeping in the bed. No acute change noted at this time. ST on bus monitor. On bipap, 31/12, 100%. Reposition done. Will continue to monitor.
[2020-08-08] MEDS: Levalbuterol Inh UD 1.25mg/0.5ml HHN SCH ×4 (01:30→19:35)
[2020-08-08 04:00] VITALS: BP 141/79
--- NOTE | 2020-08-08 04:32 | NUR ---
NURSE NOTES: Pt sleeping, calmly, arousable. No acute distress noted at this time. SR on shelter monitor. On bipap, tolerating, saturating at 99%. Bed bath given. Reposition done. Oral care given. will continue to monitor.
[2020-08-08 04:56] LABS: HEMATOCRIT 38.4 % (42.0-52.0); HEMOGLOBIN 12.3 G/DL (14.2-18.0); MEAN CORPUSCULAR VOLUME 97 FL (80-99); PLATELET COUNT 262 K/UL (150-450); RED BLOOD COUNT 3.98 M/UL (4.70-6.10); RED CELL DISTRIBUTION WIDTH 11.9 % (11.6-14.8); WHITE BLOOD COUNT 16.4 K/UL (4.8-10.8)
[2020-08-08 05:35] LABS: ALANINE AMINOTRANSFERASE 13 U/L (12-78); ALBUMIN 1.7 G/DL (3.4-5.0); ALBUMIN/GLOBULIN RATIO 0.4 (1.0-2.7); ALKALINE PHOSPHATASE 58 U/L (46-116); ANION GAP 4 mmol/L (5-15); ASPARTATE AMINO TRANSFERASE 28 U/L (15-37); BILIRUBIN,TOTAL 0.6 MG/DL (0.2-1.0); BLOOD UREA NITROGEN 22 mg/dL (7-18); CALCIUM 7.9 MG/DL (8.5-10.1); CARBON DIOXIDE 30 MMOL/L (21-32); CHLORIDE 101 MMOL/L (98-107); POTASSIUM 3.3 MMOL/L (3.5-5.1); SODIUM 135 MMOL/L (136-145)
[2020-08-08 05:41] LABS: CREATININE 0.7 MG/DL (0.55-1.30)
[2020-08-08] MEDS ORDERED: dilTIAZem HCl 25mg/5ml Inj IVP SCH ×2 (07:03→19:00)
--- NOTE | 2020-08-08 07:03 | NUR ---
NURSE NOTES: noted pt having Afib rvr with HR of 160. Notified , new order received and will be carried out. Pt awake, arousable. Will continue to monitor.
--- NOTE | 2020-08-08 07:57 | NUR ---
NURSE HAND-OFF REPORT: Important Events on Shift: Afib RVR around 0700, cardizem 10mg IVP given, converted to Sinus at this time. Patient Status: On bipap 15/4, 100% Diet: on hold for bipap use Pending Orders: [] Pending Results/Labs:[] Pending MD notification:[] Latest Vital Signs: Temperature 98.5 , Pulse 102 , B/P 125 /76 , Respiratory Rate 35 , O2 SAT 94 , Bi-pap, O2 Flow Rate 15.0 . Vital Sign Comment: [] EKG Rhythm: Sinus Rhythm Rhythm change?: N MD Notified?: N -Dr.Kattan KURTZ Response: Order Received& Read Back Latest José Fall Score: 75 Fall Risk: High Risk Safety Measures: Call light Within Reach, Bed Alarm Zone 2, Side Rails Side Rails x3, Bed position Low and Locked. Fall Precautions: Yellow Socks Yellow Gown Door Sign Patient Fall Education Report given to BLANE Jasmine.
[2020-08-08 08:00] VITALS: BP 130/64
--- NOTE | 2020-08-08 08:01 | NUR ---
NURSE NOTES: Received report from BLANE Faarh. Pt opens eyes to name and returns back to sleep. Appears to be in no respiratory distress, O2 saturation at 98% on BiPAP 100%. forestry aid shows conversion to SR from Afib with RVR. L AC 22g flushing well and asymptomatic. Overton draining well to gravity. Pt currently NPO, NGT shows no residual and flushes well. Discontinued BW restraints. Pulses present bilaterally and skin intact. HOB elevated, side rails up x3, call light within reach, bed locked and in lowest position. WIll continue plan of care.
[2020-08-08] MEDS: Levodopa/Carbidopa 25/100 tab ORAL SCH ×3 (08:45→17:52)
[2020-08-08] MEDS: Amiodarone 200mg tab ORAL SCH ×2 (08:45→20:55)
[2020-08-08] MEDS: Heparin 5000 units/ml inj SUBQ SCH ×2 (08:55→20:58)
[2020-08-08] MEDS: Vancomycin 1gm/D5W 275ml IVPB SCH ×2 (09:04)
--- NOTE | 2020-08-08 09:19 | Pulmonology Progress Note ---
Subjective ROS Limited/Unobtainable: No Allergies: Coded Allergies: No Known Allergies (Unverified , 08/02/20) All Systems: reviewed and negative except above Subjective care noted on oxygen Objective Last 24 Hour Vital Signs Date Time Temp Pulse Resp B/P (MAP) Pulse Ox O2 Delivery O2 Flow Rate FiO2 08/08/20 08:00 Bi-pap 15.0 08/08/20 08:00 100 08/08/20 08:00 97.2 95 38 130/64 (86) 95 08/08/20 07:21 102 35 94 100 08/08/20 07:09 160 125/76 08/08/20 04:00 91 08/08/20 04:00 100 08/08/20 04:00 98.5 95 26 141/79 (99) 100 08/08/20 04:00 Bi-pap 15.0 08/08/20 02:40 86 33 100 100 08/08/20 01:31 94 28 100 Bi-Pap 100 93 30 100 100 08/08/20 00:00 97.8 95 26 147/83 (104) 100 08/08/20 00:00 92 08/08/20 00:00 Bi-pap 15.0 08/07/20 22:45 90 32 100 100 08/07/20 20:00 100 08/07/20 20:00 82 08/07/20 20:00 97.2 110 26 134/74 (94) 100 08/07/20 20:00 Bi-pap 15.0 08/07/20 19:06 88 31 100 Bi-Pap 100 88 31 100 100 08/07/20 17:12 97 31 98 100 08/07/20 16:00 102 08/07/20 16:00 Bi-pap 15.0 08/07/20 16:00 100 08/07/20 16:00 98.2 91 26 140/76 (97) 100 08/07/20 15:28 89 44 98 Bi-Pap 100 90 40 100 08/07/20 12:53 58 27 100 100 08/07/20 12:00 Bi-pap 15.0 08/07/20 12:00 100 08/07/20 12:00 97.9 113 26 140/85 (103) 100 08/07/20 12:00 113 08/07/20 10:56 68 30 100 100 Intake and Output 08/07/20 08/08/20 19:00 07:00 Intake Total 0 ml 0 ml Output Total 700 ml 300 ml Balance -700 ml -300 ml Tube Feeding 0 ml 0 ml Output Urine Total 700 ml 300 ml Objective WDWN NAD reduced breath sounds bilaterally with noted [id number] NABS nontender no CCE nonfocal Microbiology Date/Time Source Procedure Growth Status 08/05/20 21:00 Sputum Induced Gram Stain - Final Complete 08/05/20 21:00 Sputum Culture - Final Michelle Albicans Usual Respiratory Penny Complete Laboratory Tests 08/07/20 11:40: White Blood Count 19.9H, Red Blood Count 4.17L, Hemoglobin 13.2L, Hematocrit 40.5L, Mean Corpuscular Volume 97, Mean Corpuscular Hemoglobin 31.6H, Mean Corpuscular Hemoglobin Concent 32.5, Red Cell Distribution Width 12.6, Platelet Count 263, Mean Platelet Volume 8.7, Neutrophils (%) (Auto) , Lymphocytes (%) (Auto) , Monocytes (%) (Auto) , Eosinophils (%) (Auto) , Basophils (%) (Auto) , Differential Total Cells Counted 100, Neutrophils % (Manual) 92H, Lymphocytes % (Manual) 1L, Monocytes % (Manual) 4, Eosinophils % (Manual) 0, Basophils % (Manual) 0, Band Neutrophils 3, Platelet Estimate Adequate, Platelet Morphology Normal, Anisocytosis 1+, Sodium Level 137, Potassium Level 3.2L, Chloride Level 101, Carbon Dioxide Level 32, Anion Gap 4L, Blood Urea Nitrogen 19H, Creatinine 0.8, Estimat Glomerular Filtration Rate > 60, Glucose Level 163H, Calcium Level 7.6L, Total Bilirubin 0.7, Aspartate Amino Transf (AST/SGOT) 26, Alanine Aminotransferase (ALT/SGPT) 7L, Alkaline Phosphatase 58, Troponin I 0.160H, Total Protein 5.7L, Albumin 1.7L, Globulin 4.0, Albumin/Globulin Ratio 0.4L 08/08/20 03:40: White Blood Count 16.4H, Red Blood Count 3.98L, Hemoglobin 12.3L, Hematocrit 38.4L, Mean Corpuscular Volume 97, Mean Corpuscular Hemoglobin 31.0, Mean Corpuscular Hemoglobin Concent 32.1, Red Cell Distribution Width 11.9, Platelet Count 262, Mean Platelet Volume 7.3, Neutrophils (%) (Auto) , Lymphocytes (%) (Auto) , Monocytes (%) (Auto) , Eosinophils (%) (Auto) , Basophils (%) (Auto) , Neutrophils % (Manual) [Pending], Lymphocytes % (Manual) [Pending], Platelet Estimate [Pending], Platelet Morphology [Pending], Sodium Level 135L, Potassium Level 3.3L, Chloride Level 101, Carbon Dioxide Level 30, Anion Gap 4L, Blood Urea Nitrogen 22H, Creatinine 0.7, Estimat Glomerular Filtration Rate > 60, Glucose Level 132H, Calcium Level 7.9L, Total Bilirubin 0.6, Aspartate Amino Transf (AST/SGOT) 28, Alanine Aminotransferase (ALT/SGPT) 13, Alkaline Phosphatase 58, Total Protein 5.8L, Albumin 1.7L, Globulin 4.1, Albumin/Globulin Ratio 0.4L, Magnesium Level 2.4, Pro-B-Type Natriuretic Peptide 1174H Current Medications Medications (Trade) Dose Ordered Sig/Javon Route PRN Reason Start Time Stop Time Status Last Admin Dose Admin Acetaminophen (Tylenol) 650 mg Q4H PRN ORAL Mild Pain (Pain Scale 1-3) 08/03/20 01:15 09/02/20 01:14 08/07/20 17:41 Acetaminophen (Tylenol) 650 mg Q4H PRN RECTAL Mild Pain (Pain Scale 1-3) 08/03/20 01:15 09/02/20 01:14 08/04/20 18:32 Amiodarone HCl (Cordarone) 200 mg EVERY 12 HOURS ORAL 08/05/20 13:15 11/03/20 13:14 08/08/20 08:45 Carbidopa/Levodopa (Sinemet 25/100) 1 tab THREE TIMES A DAY ORAL 08/03/20 09:00 09/02/20 08:59 08/08/20 08:45 Heparin Sodium (Porcine) (Heparin 5000 units/ml) 5,000 units EVERY 12 HOURS SUBQ 08/03/20 09:00 09/17/20 08:59 08/08/20 08:55 Hydralazine HCl (Apresoline) 25 mg Q6H PRN ORAL SBP above 160 08/07/20 00:30 11/05/20 00:29 Levalbuterol HCl (Xopenex) 1.25 mg Q6HRT HHN 08/07/20 01:00 08/12/20 00:59 08/08/20 01:30 Tamsulosin HCl (Flomax) 0.4 mg BEDTIME ORAL 08/03/20 21:00 09/02/20 20:59 08/07/20 20:17 Vancomycin HCl (Vanco pharmacy to dose) 1 ea DAILY PRN MISC Per rx protocol 08/03/20 01:00 09/02/20 00:59 Vancomycin HCl 1 gm/Dextrose 275 ml @ 183.708 mls/hr Q12H IVPB 08/07/20 22:00 08/12/20 21:59 08/08/20 09:04 Assessment/Plan Assessment/Plan ASSESSMENT: chronic encephalopathy, dementia, hypertension, recurrent falls, and urinary tract infection, hypoxemia, probable aspiration pneumonia. PLAN care noted respiratory care oxygen follow up cultures monitor imaging DVT prophylaxis monitor oxygen needs impression, plan, and exam edited and reviewed in detail care discussed with Eriberto Gilliland MD Aug 08, 2020 09:19
--- NOTE | 2020-08-08 09:22 | General Progress Note ---
Subjective ROS Limited/Unobtainable: Yes Constitutional: Reports: malaise, weakness HEENT: Reports: no symptoms Cardiovascular: Reports: no symptoms Respiratory: Reports: shortness of breath Gastrointestinal/Abdominal: Reports: difficulty swallowing Genitourinary: Reports: no symptoms Neurologic/Psychiatric: Reports: pre-existing deficit Endocrine: Reports: no symptoms Hematologic/Lymphatic: Reports: anemia Allergies: Coded Allergies: No Known Allergies (Unverified , 08/02/20) All Systems: reviewed and negative except above Subjective Doing poorly. Remains on BiPAP. No congestion noted. On NG tube feeds. Having intermittent episodes of A. fib with RVR. Chest x-ray from yesterday unchanged. Remains on IV antibiotics. Objective Last 24 Hour Vital Signs Date Time Temp Pulse Resp B/P (MAP) Pulse Ox O2 Delivery O2 Flow Rate FiO2 08/08/20 08:00 Bi-pap 15.0 08/08/20 08:00 100 08/08/20 08:00 97.2 95 38 130/64 (86) 95 08/08/20 07:21 102 35 94 100 08/08/20 07:09 160 125/76 08/08/20 04:00 91 08/08/20 04:00 100 08/08/20 04:00 98.5 95 26 141/79 (99) 100 08/08/20 04:00 Bi-pap 15.0 08/08/20 02:40 86 33 100 100 08/08/20 01:31 94 28 100 Bi-Pap 100 93 30 100 100 08/08/20 00:00 97.8 95 26 147/83 (104) 100 08/08/20 00:00 92 08/08/20 00:00 Bi-pap 15.0 08/07/20 22:45 90 32 100 100 08/07/20 20:00 100 08/07/20 20:00 82 08/07/20 20:00 97.2 110 26 134/74 (94) 100 08/07/20 20:00 Bi-pap 15.0 08/07/20 19:06 88 31 100 Bi-Pap 100 88 31 100 100 08/07/20 17:12 97 31 98 100 08/07/20 16:00 102 08/07/20 16:00 Bi-pap 15.0 08/07/20 16:00 100 08/07/20 16:00 98.2 91 26 140/76 (97) 100 08/07/20 15:28 89 44 98 Bi-Pap 100 90 40 100 08/07/20 12:53 58 27 100 100 08/07/20 12:00 Bi-pap 15.0 08/07/20 12:00 100 08/07/20 12:00 97.9 113 26 140/85 (103) 100 08/07/20 12:00 113 08/07/20 10:56 68 30 100 100 Intake and Output 08/07/20 08/08/20 19:00 07:00 Intake Total 0 ml 0 ml Output Total 700 ml 300 ml Balance -700 ml -300 ml Tube Feeding 0 ml 0 ml Output Urine Total 700 ml 300 ml Laboratory Tests 08/07/20 11:40: White Blood Count 19.9H, Red Blood Count 4.17L, Hemoglobin 13.2L, Hematocrit 40.5L, Mean Corpuscular Volume 97, Mean Corpuscular Hemoglobin 31.6H, Mean Corpuscular Hemoglobin Concent 32.5, Red Cell Distribution Width 12.6, Platelet Count 263, Mean Platelet Volume 8.7, Neutrophils (%) (Auto) , Lymphocytes (%) (Auto) , Monocytes (%) (Auto) , Eosinophils (%) (Auto) , Basophils (%) (Auto) , Differential Total Cells Counted 100, Neutrophils % (Manual) 92H, Lymphocytes % (Manual) 1L, Monocytes % (Manual) 4, Eosinophils % (Manual) 0, Basophils % (Manual) 0, Band Neutrophils 3, Platelet Estimate Adequate, Platelet Morphology Normal, Anisocytosis 1+, Sodium Level 137, Potassium Level 3.2L, Chloride Level 101, Carbon Dioxide Level 32, Anion Gap 4L, Blood Urea Nitrogen 19H, Creatinine 0.8, Estimat Glomerular Filtration Rate > 60, Glucose Level 163H, Calcium Level 7.6L, Total Bilirubin 0.7, Aspartate Amino Transf (AST/SGOT) 26, Alanine Aminotransferase (ALT/SGPT) 7L, Alkaline Phosphatase 58, Troponin I 0.160H, Total Protein 5.7L, Albumin 1.7L, Globulin 4.0, Albumin/Globulin Ratio 0.4L 08/08/20 03:40: White Blood Count 16.4H, Red Blood Count 3.98L, Hemoglobin 12.3L, Hematocrit 38.4L, Mean Corpuscular Volume 97, Mean Corpuscular Hemoglobin 31.0, Mean Corpuscular Hemoglobin Concent 32.1, Red Cell Distribution Width 11.9, Platelet Count 262, Mean Platelet Volume 7.3, Neutrophils (%) (Auto) , Lymphocytes (%) (Auto) , Monocytes (%) (Auto) , Eosinophils (%) (Auto) , Basophils (%) (Auto) , Neutrophils % (Manual) [Pending], Lymphocytes % (Manual) [Pending], Platelet Estimate [Pending], Platelet Morphology [Pending], Sodium Level 135L, Potassium Level 3.3L, Chloride Level 101, Carbon Dioxide Level 30, Anion Gap 4L, Blood Urea Nitrogen 22H, Creatinine 0.7, Estimat Glomerular Filtration Rate > 60, Glucose Level 132H, Calcium Level 7.9L, Total Bilirubin 0.6, Aspartate Amino Transf (AST/SGOT) 28, Alanine Aminotransferase (ALT/SGPT) 13, Alkaline Phosphatase 58, Total Protein 5.8L, Albumin 1.7L, Globulin 4.1, Albumin/Globulin Ratio 0.4L, Magnesium Level 2.4, Pro-B-Type Natriuretic Peptide 1174H Height (Feet): 5 Height (Inches): 5.00 Weight (Pounds): 99 Objective General Appearance: WD/WN, confused, thin. on bipap EENT: normal ENT inspection Neck: non-tender, normal alignment, supple Cardiovascular: normal rate, regular rhythm Respiratory/Chest: chest wall non-tender, lungs clear, normal breath sounds, no respiratory distress, no accessory muscle use Abdomen: normal bowel sounds, non tender, soft, no organomegaly Edema: no edema noted Arm (L), no edema noted Arm (R) Assessment/Plan Problem List: (1) Pneumonia ICD Codes: J18.9 - Pneumonia, unspecified organism SNOMED: 844317687 (2) Hypoxia ICD Codes: R09.02 - Hypoxemia SNOMED: 693385942 (3) AMS (altered mental status) ICD Codes: R41.82 - Altered mental status, unspecified SNOMED: 961948243 (4) UTI (urinary tract infection) ICD Codes: N39.0 - Urinary tract infection, site not specified SNOMED: 74262699 (5) Sepsis ICD Codes: A41.9 - Sepsis, unspecified organism SNOMED: 42312389 Status: stable, not improved Assessment/Plan: bipap as needed iv cardizem x 1 monitor abg and cxr iv abx per speech rx/follow up dvt/stress ulcer prophylaxis monitor lytes replace k ngt feeds d/w family x 10 mins still deciding on code status remains full code for now Chavez Gilmore MD Aug 08, 2020 09:22
--- NOTE | 2020-08-08 10:35 | NUR ---
NURSE NOTES: Daughter, Tania, brought POLST for DNR/DNI. Called Dr. Gilmore and got orders to change from full code to DNR/DNI.
--- NOTE | 2020-08-08 11:10 | NUR ---
RESPIRATORY NOTE: PT RECEIVED STABLE ON BIPAP WITH CURRENT SETTINGS: 15/4, RR 10. 100%. ALARMS ARE ON AND AUDIBLE. NO S/S OF RESPIRATORY DISTRESS NOTED AT THIS TIME. WILL CONTINUE TO MONITOR.
--- NOTE | 2020-08-08 11:53 | Infectious Diseases Prog Note ---
Assessment/Plan Assessment/Plan A: 1. Right-sided pneumonia. 2. COVID-19 test is negative. 3. Urinary tract infection. 4. Hypertension. 5. Dementia. 6. Respiratory failure on BIPAP PLAN: 1. Discontinue IV vancomycin 2. Continue Zosyn. 3. We will follow up cultures and adjust antibiotics accordingly. Subjective ROS Limited/Unobtainable: Yes Constitutional: Denies: fever Allergies: Coded Allergies: No Known Allergies (Unverified , 08/02/20) Objective Last 24 Hour Vital Signs Date Time Temp Pulse Resp B/P (MAP) Pulse Ox O2 Delivery O2 Flow Rate FiO2 08/08/20 08:00 Bi-pap 15.0 08/08/20 08:00 100 08/08/20 08:00 97.2 95 38 130/64 (86) 95 08/08/20 07:56 91 08/08/20 07:21 102 35 94 100 08/08/20 07:09 160 125/76 08/08/20 04:00 91 08/08/20 04:00 100 08/08/20 04:00 98.5 95 26 141/79 (99) 100 08/08/20 04:00 Bi-pap 15.0 08/08/20 02:40 86 33 100 100 08/08/20 01:31 94 28 100 Bi-Pap 100 93 30 100 100 08/08/20 00:00 97.8 95 26 147/83 (104) 100 08/08/20 00:00 92 08/08/20 00:00 Bi-pap 15.0 08/07/20 22:45 90 32 100 100 08/07/20 20:00 100 08/07/20 20:00 82 08/07/20 20:00 97.2 110 26 134/74 (94) 100 08/07/20 20:00 Bi-pap 15.0 08/07/20 19:06 88 31 100 Bi-Pap 100 88 31 100 100 08/07/20 17:12 97 31 98 100 08/07/20 16:00 102 08/07/20 16:00 Bi-pap 15.0 08/07/20 16:00 100 08/07/20 16:00 98.2 91 26 140/76 (97) 100 08/07/20 15:28 89 44 98 Bi-Pap 100 90 40 100 08/07/20 12:53 58 27 100 100 08/07/20 12:00 Bi-pap 15.0 08/07/20 12:00 100 08/07/20 12:00 97.9 113 26 140/85 (103) 100 08/07/20 12:00 113 Height (Feet): 5 Height (Inches): 5.00 Weight (Pounds): 99 HEENT: mucous membranes moist Respiratory/Chest: decreased breath sounds, other - on BIPAP Cardiovascular: normal rate Abdomen: soft, non tender, other - NG tube Extremities: no edema Neurologic/Psychiatric: alert, other - open eyes Microbiology Date/Time Source Procedure Growth Status 08/05/20 21:00 Sputum Induced Gram Stain - Final Complete 08/05/20 21:00 Sputum Culture - Final Michelle Albicans Usual Respiratory Penny Complete Laboratory Tests Test 08/08/20 03:40 White Blood Count 16.4 K/UL (4.8-10.8) H Red Blood Count 3.98 M/UL (4.70-6.10) L Hemoglobin 12.3 G/DL (14.2-18.0) L Hematocrit 38.4 % (42.0-52.0) L Mean Corpuscular Volume 97 FL (80-99) Mean Corpuscular Hemoglobin 31.0 PG (27.0-31.0) Mean Corpuscular Hemoglobin Concent 32.1 G/DL (32.0-36.0) Red Cell Distribution Width 11.9 % (11.6-14.8) Platelet Count 262 K/UL (150-450) Mean Platelet Volume 7.3 FL (6.5-10.1) Neutrophils (%) (Auto) % (45.0-75.0) Lymphocytes (%) (Auto) % (20.0-45.0) Monocytes (%) (Auto) % (1.0-10.0) Eosinophils (%) (Auto) % (0.0-3.0) Basophils (%) (Auto) % (0.0-2.0) Differential Total Cells Counted 100 Neutrophils % (Manual) 89 % (45-75) H Lymphocytes % (Manual) 5 % (20-45) L Monocytes % (Manual) 6 % (1-10) Eosinophils % (Manual) 0 % (0-3) Basophils % (Manual) 0 % (0-2) Band Neutrophils 0 % (0-8) Platelet Estimate Adequate Platelet Morphology Normal Red Blood Cell Morphology Normal Sodium Level 135 MMOL/L (136-145) L Potassium Level 3.3 MMOL/L (3.5-5.1) L Chloride Level 101 MMOL/L (98-107) Carbon Dioxide Level 30 MMOL/L (21-32) Anion Gap 4 mmol/L (5-15) L Blood Urea Nitrogen 22 mg/dL (7-18) H Creatinine 0.7 MG/DL (0.55-1.30) Estimat Glomerular Filtration Rate > 60 mL/min (>60) Glucose Level 132 MG/DL (74-106) H Calcium Level 7.9 MG/DL (8.5-10.1) L Magnesium Level 2.4 MG/DL (1.8-2.4) Total Bilirubin 0.6 MG/DL (0.2-1.0) Aspartate Amino Transf (AST/SGOT) 28 U/L (15-37) Alanine Aminotransferase (ALT/SGPT) 13 U/L (12-78) Alkaline Phosphatase 58 U/L (46-116) Pro-B-Type Natriuretic Peptide 1174 pg/mL (0-125) H Total Protein 5.8 G/DL (6.4-8.2) L Albumin 1.7 G/DL (3.4-5.0) L Globulin 4.1 g/dL Albumin/Globulin Ratio 0.4 (1.0-2.7) L Current Medications Medications (Trade) Dose Ordered Sig/Javon Route PRN Reason Start Time Stop Time Status Last Admin Dose Admin Acetaminophen (Tylenol) 650 mg Q4H PRN ORAL Mild Pain (Pain Scale 1-3) 08/03/20 01:15 09/02/20 01:14 08/07/20 17:41 Acetaminophen (Tylenol) 650 mg Q4H PRN RECTAL Mild Pain (Pain Scale 1-3) 08/03/20 01:15 09/02/20 01:14 08/04/20 18:32 Amiodarone HCl (Cordarone) 200 mg EVERY 12 HOURS ORAL 08/05/20 13:15 11/03/20 13:14 08/08/20 08:45 Carbidopa/Levodopa (Sinemet 25/100) 1 tab THREE TIMES A DAY ORAL 08/03/20 09:00 09/02/20 08:59 08/08/20 08:45 Heparin Sodium (Porcine) (Heparin 5000 units/ml) 5,000 units EVERY 12 HOURS SUBQ 08/03/20 09:00 09/17/20 08:59 08/08/20 08:55 Hydralazine HCl (Apresoline) 25 mg Q6H PRN ORAL SBP above 160 08/07/20 00:30 11/05/20 00:29 Levalbuterol HCl (Xopenex) 1.25 mg Q6HRT HHN 08/07/20 01:00 08/12/20 00:59 08/08/20 01:30 Piperacillin Sod/ Tazobactam Sod 3.375 gm/Sodium Chloride 110 ml @ 27.5 mls/hr EVERY 8 HOURS IVPB 08/08/20 14:00 08/13/20 13:59 Potassium Chloride 100 ml @ 100 mls/hr Q1H IVPB 08/08/20 10:00 08/08/20 11:59 08/08/20 11:37 Tamsulosin HCl (Flomax) 0.4 mg BEDTIME ORAL 08/03/20 21:00 09/02/20 20:59 08/07/20 20:17 Vancomycin HCl (Vanco pharmacy to dose) 1 ea DAILY PRN MISC Per rx protocol 08/03/20 01:00 09/02/20 00:59 Vancomycin HCl 1 gm/Dextrose 275 ml @ 183.708 mls/hr Q12H IVPB 08/07/20 22:00 08/12/20 21:59 08/08/20 09:04 Baldev Luo MD Aug 08, 2020 11:53
[2020-08-08 12:00] VITALS: BP 130/64
[2020-08-08] MEDS: Piperacillin/Tazobactam 3.375 GM in NS 110 ML IVPB SCH ×2 (14:42→22:16)
[2020-08-08 16:00] VITALS: BP 135/73
--- NOTE | 2020-08-08 18:38 | Cardiology Progress Note ---
Subjective DATE OF SERVICE: Aug 08, 2020 Increasingly congested and SOB; on bipap support. Very confused, but less agitated. NPO due to aspiration risk; NGTube placed. Labile BP readings Monitor: sinus with paroxysmal AFib. Episodes of RVR controlled with IV Cardizem. Objective Last 24 Hour Vital Signs Date Time Temp Pulse Resp B/P (MAP) Pulse Ox O2 Delivery O2 Flow Rate FiO2 08/08/20 17:33 98.1 08/08/20 16:00 98.1 100 30 135/73 (93) 100 08/08/20 16:00 Bi-pap 15.0 08/08/20 16:00 100 08/08/20 15:24 114 08/08/20 15:10 97 33 97 100 08/08/20 13:08 91 32 96 Bi-Pap 100 99 33 98 08/08/20 12:00 98.1 95 38 130/64 (86) 95 08/08/20 12:00 100 08/08/20 12:00 Bi-pap 15.0 08/08/20 11:46 103 08/08/20 11:10 101 30 96 100 08/08/20 08:00 Bi-pap 15.0 08/08/20 08:00 100 08/08/20 08:00 97.2 95 38 130/64 (86) 95 08/08/20 07:56 91 08/08/20 07:21 102 35 94 100 08/08/20 07:09 160 125/76 08/08/20 04:00 91 08/08/20 04:00 100 08/08/20 04:00 98.5 95 26 141/79 (99) 100 08/08/20 04:00 Bi-pap 15.0 08/08/20 02:40 86 33 100 100 08/08/20 01:31 94 28 100 Bi-Pap 100 93 30 100 100 08/08/20 00:00 97.8 95 26 147/83 (104) 100 08/08/20 00:00 92 08/08/20 00:00 Bi-pap 15.0 08/07/20 22:45 90 32 100 100 08/07/20 20:00 100 08/07/20 20:00 82 08/07/20 20:00 97.2 110 26 134/74 (94) 100 08/07/20 20:00 Bi-pap 15.0 08/07/20 19:06 88 31 100 Bi-Pap 100 88 31 100 100 ROS: unchanged from my evaluation of 08/02/20 HEENT: normal ENT inspection RHYTHM: NSR, PACs, Afib LUNGS: bilateral rhonchi CARDIAC: normal S1 and S2, irregularly irregular, systolic murmur - 1/6 systolic murmurat apex, rapid rate ABDOMEN: normal bowel sounds, non tender, soft, no organomegaly EXTREMITIES: normal range of motion, trace edema Laboratory Tests Test 08/08/20 03:40 White Blood Count 16.4 K/UL (4.8-10.8) H Red Blood Count 3.98 M/UL (4.70-6.10) L Hemoglobin 12.3 G/DL (14.2-18.0) L Hematocrit 38.4 % (42.0-52.0) L Mean Corpuscular Volume 97 FL (80-99) Mean Corpuscular Hemoglobin 31.0 PG (27.0-31.0) Mean Corpuscular Hemoglobin Concent 32.1 G/DL (32.0-36.0) Red Cell Distribution Width 11.9 % (11.6-14.8) Platelet Count 262 K/UL (150-450) Mean Platelet Volume 7.3 FL (6.5-10.1) Neutrophils (%) (Auto) % (45.0-75.0) Lymphocytes (%) (Auto) % (20.0-45.0) Monocytes (%) (Auto) % (1.0-10.0) Eosinophils (%) (Auto) % (0.0-3.0) Basophils (%) (Auto) % (0.0-2.0) Differential Total Cells Counted 100 Neutrophils % (Manual) 89 % (45-75) H Lymphocytes % (Manual) 5 % (20-45) L Monocytes % (Manual) 6 % (1-10) Eosinophils % (Manual) 0 % (0-3) Basophils % (Manual) 0 % (0-2) Band Neutrophils 0 % (0-8) Platelet Estimate Adequate Platelet Morphology Normal Red Blood Cell Morphology Normal Sodium Level 135 MMOL/L (136-145) L Potassium Level 3.3 MMOL/L (3.5-5.1) L Chloride Level 101 MMOL/L (98-107) Carbon Dioxide Level 30 MMOL/L (21-32) Anion Gap 4 mmol/L (5-15) L Blood Urea Nitrogen 22 mg/dL (7-18) H Creatinine 0.7 MG/DL (0.55-1.30) Estimat Glomerular Filtration Rate > 60 mL/min (>60) Glucose Level 132 MG/DL (74-106) H Calcium Level 7.9 MG/DL (8.5-10.1) L Magnesium Level 2.4 MG/DL (1.8-2.4) Total Bilirubin 0.6 MG/DL (0.2-1.0) Aspartate Amino Transf (AST/SGOT) 28 U/L (15-37) Alanine Aminotransferase (ALT/SGPT) 13 U/L (12-78) Alkaline Phosphatase 58 U/L (46-116) Pro-B-Type Natriuretic Peptide 1174 pg/mL (0-125) H Total Protein 5.8 G/DL (6.4-8.2) L Albumin 1.7 G/DL (3.4-5.0) L Globulin 4.1 g/dL Albumin/Globulin Ratio 0.4 (1.0-2.7) L Microbiology Date/Time Source Procedure Growth Status 08/05/20 21:00 Sputum Induced Gram Stain - Final Complete 08/05/20 21:00 Sputum Culture - Final Michelle Albicans Usual Respiratory Penny Complete Assessment/Plan Assessment/Plan Paroxysmal atrial fibrillation with RVR Aspiration risk Hypokalemia Sepsis Healthcare acquired PNA Complicated UTI with indwelling catheter Hyponatremia Severe protein calorie malnutrition Acute myocardial ischemia Respiratory failure with hypoxia Hypovolemia Hypokalemia Leukocytosis persisting Sinus tachycardia Acute diastolic CHF improved post diuresis CRITICAL & GUARDED Empiric antibiotics Bipap support NGTube feedings DVT prophylaxis Periodic diuresis based on clinical parameters, will continue. Potassium replacement as needed. Continue amiodarone Titrate beta katya and anti-HTN regimen. Sarkis Herman MD Aug 08, 2020 18:38
--- NOTE | 2020-08-08 18:42 | NUR ---
NURSE NOTES: Pt A-fib with RVR. Spoke with Dr. Herman. Orders given for IV potassium, NGT potassium, and restart Osmolite 1.5 at 10cc/hr.
--- NOTE | 2020-08-08 19:19 | NUR ---
NURSE HAND-OFF REPORT: Important Events on Shift:afib rvr @1800 HR 187 Patient Status: dnr/dni Diet: npo Pending Orders: [] Pending Results/Labs:[] Pending MD notification:[] Latest Vital Signs: Temperature 98.1 , Pulse 187 , B/P 135 /73 , Respiratory Rate 30 , O2 SAT 100 , Bi-pap, O2 Flow Rate 15.0 . Vital Sign Comment: stable EKG Rhythm: Sinus Rhythm Rhythm change?: N Notified?: N -Dr.Kattan KURTZ Response: Order Received& Read Back Latest José Fall Score: 75 Fall Risk: High Risk Safety Measures: Call light Within Reach, Bed Alarm Zone 2, Side Rails Side Rails x3, Bed position Low and Locked. Fall Precautions: Yellow Socks Yellow Gown Door Sign Patient Fall Education Report given to richard faust.
--- NOTE | 2020-08-08 19:29 | NUR ---
NURSE HAND-OFF REPORT: Important Events on Shift:[Pt admitted to SDU, BIBA from [facility] for chest pain, hypoxia, troponin negative 0.007] Patient Status: [Stable] Diet: [Glucerna 1.2 55cc/hr] Pending Orders: [NA] Pending Results/Labs:[Urine] Pending MD notification:[NA] Latest Vital Signs: Temperature 98.1 , Pulse 187 , B/P 135 /73 , Respiratory Rate 30 , O2 SAT 100 , Bi-pap, O2 Flow Rate 15.0 . Vital Sign Comment: [Stable] EKG Rhythm: Sinus Rhythm Rhythm change?: N Notified?: N -Dr.Kattan KURTZ Response: Order Received& Read Back Latest José Fall Score: 75 Fall Risk: High Risk Safety Measures: Call light Within Reach, Bed Alarm Zone 2, Side Rails Side Rails x3, Bed position Low and Locked. Fall Precautions: Yellow Socks Yellow Gown Door Sign Patient Fall Education Report given to [Julio, RN].
--- NOTE | 2020-08-08 19:47 | NUR ---
NURSE NOTES: Received pt from BLANE Jasmine. Pt asleep and on Bipap. Bed in lowest position. Call light within reach. Will continue to monitor.
[2020-08-08 20:00] VITALS: BP 127/67
[2020-08-08] MEDS: Tamsulosin 0.4mg cap ORAL SCH (20:55)
[2020-08-09] VITALS (7 sets, daily range): BP systolic 105–141; BP diastolic 57–85
[2020-08-09] MEDS: Levalbuterol Inh UD 1.25mg/0.5ml HHN SCH ×4 (01:34→19:00)
--- NOTE | 2020-08-09 03:05 | NUR ---
NURSE NOTES: Called and left a message with Dr. Herman regarding pts heart rate, currently sustaining in the 160's with no PRN meds. Awaiting call back.
--- NOTE | 2020-08-09 03:29 | NUR ---
NURSE NOTES: Called and left a second message with Dr. Herman regarding pts heart rate. EKG showed A. flutter with incomplete right bundle branch block. Awaiting call back.
[2020-08-09] MEDS ORDERED: dilTIAZem HCl 25mg/5ml Inj IVP SCH ×3 (03:45→07:00)
--- NOTE | 2020-08-09 04:48 | NUR ---
NURSE NOTES: cALLED AND LEFT A MESSAGE WITH dR. Linn INFORMING HIM ABOUT PTS ELEVATED hr AFTER CARDIZEM GIVEN. aWAITING CALL BACK.
[2020-08-09 05:14] LABS: HEMATOCRIT 41.2 % (42.0-52.0); HEMOGLOBIN 13.3 G/DL (14.2-18.0); MEAN CORPUSCULAR VOLUME 98 FL (80-99); PLATELET COUNT 290 K/UL (150-450); RED BLOOD COUNT 4.22 M/UL (4.70-6.10); RED CELL DISTRIBUTION WIDTH 12.5 % (11.6-14.8)
[2020-08-09] MEDS: Piperacillin/Tazobactam 3.375 GM in NS 110 ML IVPB SCH ×3 (05:15→21:24)
--- NOTE | 2020-08-09 05:34 | NUR ---
NURSE NOTES: Called and left a message with Dr. Herman regarding pts elevated heart rate after the second dose of cardizem 20 mg iv push. Awaiting call back.
[2020-08-09 05:37] LABS: ALANINE AMINOTRANSFERASE 10 U/L (12-78); ALBUMIN 1.9 G/DL (3.4-5.0); ALBUMIN/GLOBULIN RATIO 0.4 (1.0-2.7); ALKALINE PHOSPHATASE 70 U/L (46-116); ANION GAP 9 mmol/L (5-15); ASPARTATE AMINO TRANSFERASE 27 U/L (15-37); BILIRUBIN,TOTAL 0.7 MG/DL (0.2-1.0); BLOOD UREA NITROGEN 29 mg/dL (7-18); CALCIUM 8.5 MG/DL (8.5-10.1); CARBON DIOXIDE 29 MMOL/L (21-32); CHLORIDE 99 MMOL/L (98-107); CREATININE 1.1 MG/DL (0.55-1.30); POTASSIUM 3.8 MMOL/L (3.5-5.1); SODIUM 137 MMOL/L (136-145)
--- NOTE | 2020-08-09 07:29 | NUR ---
NURSE HAND-OFF REPORT: Important Events on Shift:elevated heart rate and change in rhythm Patient Status: unstable Diet: tube feeding Pending Orders: abg Pending Results/Labs:n Pending notification:n Latest Vital Signs: Temperature 98.3 , Pulse 166 , B/P 129 /85 , Respiratory Rate 35 , O2 SAT 100 , Bi-pap, O2 Flow Rate 15.0 . Vital Sign Comment: [] EKG Rhythm: A.fib/A.Flutter with RVR Rhythm change?: Aly KURTZ Notified?: Aly Montoya MD Response: Message left await call Latest José Fall Score: 75 Fall Risk: High Risk Safety Measures: Call light Within Reach, Bed Alarm Zone 2, Side Rails Side Rails x3, Bed position Low and Locked. Fall Precautions: Yellow Socks Yellow Gown Door Sign Patient Fall Education Report given to BLANE Jasmine
[2020-08-09] MEDS: Amiodarone 200mg tab ORAL SCH (08:16)
[2020-08-09] MEDS: Levodopa/Carbidopa 25/100 tab ORAL SCH ×2 (08:16→13:19)
[2020-08-09] MEDS: Heparin 5000 units/ml inj SUBQ SCH ×2 (08:16→20:41)
--- NOTE | 2020-08-09 08:51 | NUR ---
RD ASSESSMENT & RECOMMENDATIONS SEE CARE ACTIVITY FOR COMPLETE ASSESSMENT DAILY ESTIMATED NEEDS: Needs based on Underweight, pulmonary/ 45kg 30-35 kcals/kg 6124-6025 total kcals 1-1.5 g protein/kg 45-68 g total protein 25-30 mL/kg 6799-5474 total fluid mLs NUTRITION DIAGNOSIS: * Increased kcal/prot needs R/T underweight status, pulmonary status as evidenced by pt @ 73% IBW, w/ BMI of 16.5, low BMI per guidelines, h/o COPD, on venturi mask. * Swallowing difficulty R/T dysphagia as evidenced by s/p failed video swallow study, w/ rec for NPO, s/p NGT insertion. CURRENT TF: Osmolite 1.5 @20-> NOW HELD FOR BIPAP ENTERAL NUTRITION RECOMMENDATIONS: Jevity 1.2 @ 50ml/hr x 24 hrs to provide 1200ml, 1440kcal, 67g prot, 968ml free water * Initiate Jevity 1.2 @ 10ml/hr x 6hrs * Advance 10ml q 4-6 hrs as tolerated to goal * HOB over 30 degrees * Without IVF, h20 flush of 100ml q 6hrs ADDITIONAL RECOMMENDATIONS: * Wt@ SNF on [id number] vs EMR wt of 49.8kg (109.5lbs) vs initial EMR wt of 99lbs -> Rec daily calibrated bedscale wt * Monitor lytes daily w/ TF, replete as needed- high risk for refeeding * Monitor BGs w/ TF, need for carb controlled TF and/or NISS * NOW ON BIPAP, TF HELD FROm 08/06 Consider D5; Monitor ability to feeds.
[2020-08-09] MEDS ORDERED: NS 500ML ONE (09:03)
[2020-08-09] MEDS ORDERED: NS 275ml ONE (09:03)
[2020-08-09] MEDS ORDERED: Tubing IV Secondary IV ONE (09:03)
--- NOTE | 2020-08-09 09:27 | General Progress Note ---
Subjective ROS Limited/Unobtainable: Yes Constitutional: Reports: weakness HEENT: Reports: no symptoms Cardiovascular: Reports: no symptoms Respiratory: Reports: shortness of breath Gastrointestinal/Abdominal: Reports: difficulty swallowing Genitourinary: Reports: no symptoms Neurologic/Psychiatric: Reports: pre-existing deficit Endocrine: Reports: no symptoms Hematologic/Lymphatic: Reports: anemia Allergies: Coded Allergies: No Known Allergies (Unverified , 08/02/20) All Systems: reviewed and negative except above Subjective Doing poorly. Remains on BiPAP. No congestion noted. HR remains uncontrolled. abg slightly better. d/w staff Objective Last 24 Hour Vital Signs Date Time Temp Pulse Resp B/P (MAP) Pulse Ox O2 Delivery O2 Flow Rate FiO2 08/09/20 08:52 163 08/09/20 08:00 100 08/09/20 08:00 98.2 105 33 136/57 (83) 98 08/09/20 07:45 166 129/85 08/09/20 07:11 110 28 98 100 08/09/20 05:15 166 129/85 08/09/20 04:00 163 08/09/20 04:00 100 08/09/20 04:00 Bi-pap 15.0 08/09/20 03:41 166 129/85 08/09/20 03:20 93 35 100 100 08/09/20 03:13 98.3 166 35 129/85 (100) 95 08/09/20 00:00 Bi-pap 15.0 08/09/20 00:00 100 08/09/20 00:00 98.2 105 24 141/78 (99) 97 08/08/20 23:20 94 20 100 100 08/08/20 20:00 100 08/08/20 20:00 109 08/08/20 20:00 Bi-pap 15.0 08/08/20 20:00 98.4 113 26 127/67 (87) 98 08/08/20 19:20 82 32 97 Bi-Pap 100 85 33 98 100 08/08/20 19:10 187 135/73 08/08/20 17:33 98.1 08/08/20 16:00 98.1 100 30 135/73 (93) 100 08/08/20 16:00 Bi-pap 15.0 08/08/20 16:00 100 08/08/20 15:24 114 08/08/20 15:10 97 33 97 100 08/08/20 13:08 91 32 96 Bi-Pap 100 99 33 98 08/08/20 12:00 98.1 95 38 130/64 (86) 95 08/08/20 12:00 100 08/08/20 12:00 Bi-pap 15.0 08/08/20 11:46 103 08/08/20 11:10 101 30 96 100 Intake and Output 08/08/20 08/09/20 19:00 07:00 Intake Total 27.5 ml Output Total 300 ml 1200 ml Balance -272.5 ml -1200 ml IV Total 27.5 ml Tube Feeding 0 ml Output Urine Total 300 ml 1200 ml Laboratory Tests 08/09/20 03:47: White Blood Count 15.0H, Red Blood Count 4.22L, Hemoglobin 13.3L, Hematocrit 41.2L, Mean Corpuscular Volume 98, Mean Corpuscular Hemoglobin 31.5H, Mean Corpuscular Hemoglobin Concent 32.2, Red Cell Distribution Width 12.5, Platelet Count 290, Mean Platelet Volume 7.6, Neutrophils (%) (Auto) , Lymphocytes (%) (Auto) , Monocytes (%) (Auto) , Eosinophils (%) (Auto) , Basophils (%) (Auto) , Differential Total Cells Counted 100, Neutrophils % (Manual) 97H, Lymphocytes % (Manual) 2L, Monocytes % (Manual) 1, Eosinophils % (Manual) 0, Basophils % (Manual) 0, Band Neutrophils 0, Platelet Estimate Adequate, Platelet Morphology Normal, Red Blood Cell Morphology Normal, Sodium Level 137, Potassium Level 3.8, Chloride Level 99, Carbon Dioxide Level 29, Anion Gap 9, Blood Urea Nitrogen 29H , Creatinine 1.1#, Estimat Glomerular Filtration Rate > 60, Glucose Level 142H, Calcium Level 8.5, Total Bilirubin 0.7, Aspartate Amino Transf (AST/SGOT) 27, Alanine Aminotransferase (ALT/SGPT) 10L, Alkaline Phosphatase 70, Total Protein 6.4, Albumin 1.9L, Globulin 4.5, Albumin/Globulin Ratio 0.4L 08/09/20 07:04: Arterial Blood pH 7.429, Arterial Blood Partial Pressure CO2 41.0, Arterial Blood Partial Pressure O2 85.5, Arterial Blood HCO3 26.5H, Arterial Blood Oxygen Saturation 96.1, Arterial Blood Base Excess 2.0, Emile Test Positive Height (Feet): 5 Height (Inches): 5.00 Weight (Pounds): 99 Objective General Appearance: WD/WN, confused, thin. on bipap EENT: normal ENT inspection Neck: non-tender, normal alignment, supple Cardiovascular: normal rate, regular rhythm Respiratory/Chest: chest wall non-tender, lungs clear, normal breath sounds, no respiratory distress, no accessory muscle use Abdomen: normal bowel sounds, non tender, soft, no organomegaly Edema: no edema noted Arm (L), no edema noted Arm (R) Assessment/Plan Problem List: (1) Pneumonia ICD Codes: J18.9 - Pneumonia, unspecified organism SNOMED: 931908399 (2) Hypoxia ICD Codes: R09.02 - Hypoxemia SNOMED: 107183075 (3) AMS (altered mental status) ICD Codes: R41.82 - Altered mental status, unspecified SNOMED: 703767535 (4) UTI (urinary tract infection) ICD Codes: N39.0 - Urinary tract infection, site not specified SNOMED: 08354148 (5) Sepsis ICD Codes: A41.9 - Sepsis, unspecified organism SNOMED: 93965525 Status: stable, not improved Assessment/Plan: bipap as needed added ivpb metoprolol monitor abg and cxr iv abx per speech rx/follow up dvt/stress ulcer prophylaxis monitor lytes replace k ngt feeds has advanced directive for dnr Chavez Gilmore MD Aug 09, 2020 09:27
[2020-08-09] MEDS: Metoprolol Tartrate 10 MG in D5W 55 ML IVPB SCH ×3 (09:30→17:50)
--- NOTE | 2020-08-09 10:09 | Pulmonology Progress Note ---
Subjective ROS Limited/Unobtainable: Yes Constitutional: Denies: fever Allergies: Coded Allergies: No Known Allergies (Unverified , 08/02/20) All Systems: reviewed and negative except above Subjective care noted on oxygen and BIPAP diffuse infiltrates Objective Last 24 Hour Vital Signs Date Time Temp Pulse Resp B/P (MAP) Pulse Ox O2 Delivery O2 Flow Rate FiO2 08/09/20 09:30 93 136/57 08/09/20 08:52 163 08/09/20 08:00 Bi-pap 15.0 08/09/20 08:00 100 08/09/20 08:00 98.2 105 33 136/57 (83) 98 08/09/20 07:45 166 129/85 08/09/20 07:11 110 28 98 100 08/09/20 05:15 166 129/85 08/09/20 04:00 163 08/09/20 04:00 100 08/09/20 04:00 Bi-pap 15.0 08/09/20 03:41 166 129/85 08/09/20 03:20 93 35 100 100 08/09/20 03:13 98.3 166 35 129/85 (100) 95 08/09/20 00:00 Bi-pap 15.0 08/09/20 00:00 100 08/09/20 00:00 98.2 105 24 141/78 (99) 97 08/08/20 23:20 94 20 100 100 08/08/20 20:00 100 08/08/20 20:00 109 08/08/20 20:00 Bi-pap 15.0 08/08/20 20:00 98.4 113 26 127/67 (87) 98 08/08/20 19:20 82 32 97 Bi-Pap 100 85 33 98 100 08/08/20 19:10 187 135/73 08/08/20 17:33 98.1 08/08/20 16:00 98.1 100 30 135/73 (93) 100 08/08/20 16:00 Bi-pap 15.0 08/08/20 16:00 100 08/08/20 15:24 114 08/08/20 15:10 97 33 97 100 08/08/20 13:08 91 32 96 Bi-Pap 100 99 33 98 08/08/20 12:00 98.1 95 38 130/64 (86) 95 08/08/20 12:00 100 08/08/20 12:00 Bi-pap 15.0 08/08/20 11:46 103 08/08/20 11:10 101 30 96 100 Intake and Output 08/08/20 08/09/20 19:00 07:00 Intake Total 27.5 ml Output Total 300 ml 1200 ml Balance -272.5 ml -1200 ml IV Total 27.5 ml Tube Feeding 0 ml Output Urine Total 300 ml 1200 ml Objective WDWN NAD reduced breath sounds bilaterally with noted rhonchi [id number] NABS nontender no CCE nonfocal on BIPAP Laboratory Tests 08/09/20 03:47: White Blood Count 15.0H, Red Blood Count 4.22L, Hemoglobin 13.3L, Hematocrit 41.2L, Mean Corpuscular Volume 98, Mean Corpuscular Hemoglobin 31.5H, Mean Corpuscular Hemoglobin Concent 32.2, Red Cell Distribution Width 12.5, Platelet Count 290, Mean Platelet Volume 7.6, Neutrophils (%) (Auto) , Lymphocytes (%) (Auto) , Monocytes (%) (Auto) , Eosinophils (%) (Auto) , Basophils (%) (Auto) , Differential Total Cells Counted 100, Neutrophils % (Manual) 97H, Lymphocytes % (Manual) 2L, Monocytes % (Manual) 1, Eosinophils % (Manual) 0, Basophils % (Manual) 0, Band Neutrophils 0, Platelet Estimate Adequate, Platelet Morphology Normal, Red Blood Cell Morphology Normal, Sodium Level 137, Potassium Level 3.8, Chloride Level 99, Carbon Dioxide Level 29, Anion Gap 9, Blood Urea Nitrogen 29H , Creatinine 1.1#, Estimat Glomerular Filtration Rate > 60, Glucose Level 142H, Calcium Level 8.5, Total Bilirubin 0.7, Aspartate Amino Transf (AST/SGOT) 27, Alanine Aminotransferase (ALT/SGPT) 10L, Alkaline Phosphatase 70, Total Protein 6.4, Albumin 1.9L, Globulin 4.5, Albumin/Globulin Ratio 0.4L 08/09/20 07:04: Arterial Blood pH 7.429, Arterial Blood Partial Pressure CO2 41.0, Arterial Blood Partial Pressure O2 85.5, Arterial Blood HCO3 26.5H, Arterial Blood Oxygen Saturation 96.1, Arterial Blood Base Excess 2.0, Emile Test Positive Current Medications Medications (Trade) Dose Ordered Sig/Javon Route PRN Reason Start Time Stop Time Status Last Admin Dose Admin Acetaminophen (Tylenol) 650 mg Q4H PRN ORAL Mild Pain (Pain Scale 1-3) 08/03/20 01:15 09/02/20 01:14 08/09/20 08:36 Acetaminophen (Tylenol) 650 mg Q4H PRN RECTAL Mild Pain (Pain Scale 1-3) 08/03/20 01:15 09/02/20 01:14 08/04/20 18:32 Amiodarone HCl (Cordarone) 200 mg EVERY 12 HOURS ORAL 08/05/20 13:15 11/03/20 13:14 08/09/20 08:16 Carbidopa/Levodopa (Sinemet 25/100) 1 tab THREE TIMES A DAY ORAL 08/03/20 09:00 09/02/20 08:59 08/09/20 08:16 Heparin Sodium (Porcine) (Heparin 5000 units/ml) 5,000 units EVERY 12 HOURS SUBQ 08/03/20 09:00 09/17/20 08:59 08/09/20 08:16 Hydralazine HCl (Apresoline) 25 mg Q6H PRN ORAL SBP above 160 08/07/20 00:30 11/05/20 00:29 Levalbuterol HCl (Xopenex) 1.25 mg Q6HRT HHN 08/07/20 01:00 08/12/20 00:59 08/09/20 01:34 Metoprolol Tartrate 10 mg/ Dextrose 65 ml @ 130 mls/hr Q6HR IVPB 08/09/20 09:30 09/08/20 09:29 Piperacillin Sod/ Tazobactam Sod 3.375 gm/Sodium Chloride 110 ml @ 27.5 mls/hr EVERY 8 HOURS IVPB 08/08/20 14:00 08/13/20 13:59 08/09/20 05:15 Tamsulosin HCl (Flomax) 0.4 mg BEDTIME ORAL 08/03/20 21:00 09/02/20 20:59 08/08/20 20:55 Assessment/Plan Assessment/Plan ASSESSMENT: chronic encephalopathy, dementia, diffuse infiltrates, elevated BNP hypertension, recurrent falls, and urinary tract infection, hypoxemia, probable aspiration pneumonia. PLAN care noted respiratory care oxygen lasix x1 BIPAP/oxygen repeat CXR and ABG follow up cultures monitor imaging DVT prophylaxis monitor oxygen needs impression, plan, and exam edited and reviewed in detail care discussed with Eriberto Gilliland MD Aug 09, 2020 10:09
--- NOTE | 2020-08-09 11:30 | Infectious Diseases Prog Note ---
Assessment/Plan Assessment/Plan antibiotics : zosyn A 1. Right-sided pneumonia. 2. COVID-19 test is negative. 3. Urinary tract infection. 4. Hypertension. 5. Dementia. 6. Respiratory failure. P 1. continue zosyn 2. will follow up cultures Subjective ROS Limited/Unobtainable: Yes Allergies: Coded Allergies: No Known Allergies (Unverified , 08/02/20) Objective Last 24 Hour Vital Signs Date Time Temp Pulse Resp B/P (MAP) Pulse Ox O2 Delivery O2 Flow Rate FiO2 08/09/20 11:21 93 136/57 08/09/20 09:30 93 136/57 08/09/20 08:52 163 08/09/20 08:00 Bi-pap 15.0 08/09/20 08:00 100 08/09/20 08:00 98.2 105 33 136/57 (83) 98 08/09/20 07:45 166 129/85 08/09/20 07:11 110 28 98 100 08/09/20 05:15 166 129/85 08/09/20 04:00 163 08/09/20 04:00 100 08/09/20 04:00 Bi-pap 15.0 08/09/20 03:41 166 129/85 08/09/20 03:20 93 35 100 100 08/09/20 03:13 98.3 166 35 129/85 (100) 95 08/09/20 00:00 Bi-pap 15.0 08/09/20 00:00 100 08/09/20 00:00 98.2 105 24 141/78 (99) 97 08/08/20 23:20 94 20 100 100 08/08/20 20:00 100 08/08/20 20:00 109 08/08/20 20:00 Bi-pap 15.0 08/08/20 20:00 98.4 113 26 127/67 (87) 98 08/08/20 19:20 82 32 97 Bi-Pap 100 85 33 98 100 08/08/20 19:10 187 135/73 08/08/20 17:33 98.1 08/08/20 16:00 98.1 100 30 135/73 (93) 100 08/08/20 16:00 Bi-pap 15.0 08/08/20 16:00 100 11/21/20 15:24 114 08/08/20 15:10 97 33 97 100 08/08/20 13:08 91 32 96 Bi-Pap 100 99 33 98 08/08/20 12:00 98.1 95 38 130/64 (86) 95 08/08/20 12:00 100 08/08/20 12:00 Bi-pap 15.0 08/08/20 11:46 103 Height (Feet): 5 Height (Inches): 5.00 Weight (Pounds): 99 HEENT: other - on bipap Respiratory/Chest: lungs clear Cardiovascular: normal rate, regular rhythm, no gallop/murmur Abdomen: soft, non tender Extremities: no edema Laboratory Tests Test 08/09/20 03:47 08/09/20 07:04 White Blood Count 15.0 K/UL (4.8-10.8) H Red Blood Count 4.22 M/UL (4.70-6.10) L Hemoglobin 13.3 G/DL (14.2-18.0) L Hematocrit 41.2 % (42.0-52.0) L Mean Corpuscular Volume 98 FL (80-99) Mean Corpuscular Hemoglobin 31.5 PG (27.0-31.0) H Mean Corpuscular Hemoglobin Concent 32.2 G/DL (32.0-36.0) Red Cell Distribution Width 12.5 % (11.6-14.8) Platelet Count 290 K/UL (150-450) Mean Platelet Volume 7.6 FL (6.5-10.1) Neutrophils (%) (Auto) % (45.0-75.0) Lymphocytes (%) (Auto) % (20.0-45.0) Monocytes (%) (Auto) % (1.0-10.0) Eosinophils (%) (Auto) % (0.0-3.0) Basophils (%) (Auto) % (0.0-2.0) Differential Total Cells Counted 100 Neutrophils % (Manual) 97 % (45-75) H Lymphocytes % (Manual) 2 % (20-45) L Monocytes % (Manual) 1 % (1-10) Eosinophils % (Manual) 0 % (0-3) Basophils % (Manual) 0 % (0-2) Band Neutrophils 0 % (0-8) Platelet Estimate Adequate Platelet Morphology Normal Red Blood Cell Morphology Normal Sodium Level 137 MMOL/L (136-145) Potassium Level 3.8 MMOL/L (3.5-5.1) Chloride Level 99 MMOL/L (98-107) Carbon Dioxide Level 29 MMOL/L (21-32) Anion Gap 9 mmol/L (5-15) Blood Urea Nitrogen 29 mg/dL (7-18) H Creatinine 1.1 MG/DL (0.55-1.30) # Estimat Glomerular Filtration Rate > 60 mL/min (>60) Glucose Level 142 MG/DL (74-106) H Calcium Level 8.5 MG/DL (8.5-10.1) Total Bilirubin 0.7 MG/DL (0.2-1.0) Aspartate Amino Transf (AST/SGOT) 27 U/L (15-37) Alanine Aminotransferase (ALT/SGPT) 10 U/L (12-78) L Alkaline Phosphatase 70 U/L (46-116) Total Protein 6.4 G/DL (6.4-8.2) Albumin 1.9 G/DL (3.4-5.0) L Globulin 4.5 g/dL Albumin/Globulin Ratio 0.4 (1.0-2.7) L Arterial Blood pH 7.429 (7.350-7.450) Arterial Blood Partial Pressure CO2 41.0 mmHg (35.0-45.0) Arterial Blood Partial Pressure O2 85.5 mmHg (75.0-100.0) Arterial Blood HCO3 26.5 mmol/L (22.0-26.0) H Arterial Blood Oxygen Saturation 96.1 % (95-100) Arterial Blood Base Excess 2.0 (-2-2) Emile Test Positive Current Medications Medications (Trade) Dose Ordered Sig/Javon Route PRN Reason Start Time Stop Time Status Last Admin Dose Admin Acetaminophen (Tylenol) 650 mg Q4H PRN ORAL Mild Pain (Pain Scale 1-3) 08/03/20 01:15 09/02/20 01:14 08/09/20 08:36 Acetaminophen (Tylenol) 650 mg Q4H PRN RECTAL Mild Pain (Pain Scale 1-3) 08/03/20 01:15 09/02/20 01:14 08/04/20 18:32 Amiodarone HCl (Cordarone) 200 mg EVERY 12 HOURS ORAL 08/05/20 13:15 11/03/20 13:14 08/09/20 08:16 Carbidopa/Levodopa (Sinemet 25/100) 1 tab THREE TIMES A DAY ORAL 08/03/20 09:00 09/02/20 08:59 08/09/20 08:16 Heparin Sodium (Porcine) (Heparin 5000 units/ml) 5,000 units EVERY 12 HOURS SUBQ 08/03/20 09:00 09/17/20 08:59 08/09/20 08:16 Hydralazine HCl (Apresoline) 25 mg Q6H PRN ORAL SBP above 160 08/07/20 00:30 11/05/20 00:29 Levalbuterol HCl (Xopenex) 1.25 mg Q6HRT HHN 08/07/20 01:00 08/12/20 00:59 08/09/20 01:34 Metoprolol Tartrate 10 mg/ Dextrose 65 ml @ 130 mls/hr Q6HR IVPB 08/09/20 09:30 09/08/20 09:29 Piperacillin Sod/ Tazobactam Sod 3.375 gm/Sodium Chloride 110 ml @ 27.5 mls/hr EVERY 8 HOURS IVPB 08/08/20 14:00 08/13/20 13:59 08/09/20 05:15 Tamsulosin HCl (Flomax) 0.4 mg BEDTIME ORAL 08/03/20 21:00 09/02/20 20:59 08/08/20 20:55 Wagner Christensen MD Aug 09, 2020 11:30
[2020-08-09] MEDS: Levodopa/Carbidopa 25/100 tab NG SCH (17:57)
--- NOTE | 2020-08-09 17:58 | Diagnostic Imaging Report ---
EXAM: XR Abdomen, 2 Views CLINICAL HISTORY: NGT TECHNIQUE: Frontal view of the abdomen/pelvis with upright view of the abdomen. COMPARISON: Chest radiograph one view 08/02/2020 FINDINGS: Lower thorax: Diffuse multifocal opacities throughout both lungs which have worsened compared to the previous exam on 08/02/2020. Intraperitoneal space: No free air. Gastrointestinal tract: Oral contrast is visualized throughout the colon. No dilation. Bones/joints: Unremarkable. Tubes, lines and devices: An enteric tube courses below the level of the diaphragm and terminates in the expected region of the stomach. The side port is distal to the esophageal junction. IMPRESSION: An enteric tube terminates in the expected region of the stomach with the side port distal to the gastroesophageal junction. Diffuse multifocal opacities throughout both lungs, which have worsened since the previous exam.
[2020-08-09] MEDS ORDERED: Morphine Sulfate 2mg/ml Inj(IV/IM USE ONLY) IVP PRN (18:30)
--- NOTE | 2020-08-09 19:08 | NUR ---
NURSE HAND-OFF REPORT: Important Events on Shift:stabe Patient Status: dnr/dni Diet: tube feeds Pending Orders: [] Pending Results/Labs:[] Pending MD notification:[] Latest Vital Signs: Temperature 97.7 , Pulse 87 , B/P 128 /71 , Respiratory Rate 15 , O2 SAT 100 , Bi-pap, O2 Flow Rate 15.0 . Vital Sign Comment: stable EKG Rhythm: Sinus Rhythm Rhythm change?: N Notified?: William Montoya MD Response: Message left await call Latest José Fall Score: 75 Fall Risk: High Risk Safety Measures: Call light Within Reach, Bed Alarm Zone 2, Side Rails Side Rails x3, Bed position Low and Locked. Fall Precautions: Yellow Socks Yellow Gown Door Sign Patient Fall Education Report given to preston faust.
--- NOTE | 2020-08-09 19:09 | NUR ---
NURSE NOTES: Received report from BLANE Jasmine. Pt observed to be asleep in bed, responsive to tactile stimuli. Non responsive to verbal stimuli. On BiPAP per Dr. Gilmore request saturating 100% on settings of 15/4 and 100% fiO2. 5-lead EKG showed A-fib/A-flutter. Dr Herman at nursing station and made aware. Left NGT running osmolite 1.5 at 20 mL. Auscultated for placement and confirmed during prior shift via xray. Overton draining well to gravity. Bed kept in lowest and locked position. Bed alarm on. Will monitor.
[2020-08-09] MEDS: Tamsulosin 0.4mg cap ORAL SCH (20:41)
[2020-08-09] MEDS: Amiodarone 200mg tab NG SCH (20:42)
--- NOTE | 2020-08-10 00:10 | NUR ---
NURSE NOTES: Held metoprolol for BP of 105/53 and 93/51 15 minutes later. Pt observed with low grade temp of 99.0 axil. Cooling measures initiated. Daughter called for updates. Will monitor.
--- NOTE | 2020-08-10 00:12 | Cardiology Progress Note ---
Subjective DATE OF SERVICE: Aug 09, 2020 Still increasingly congested and SOB; on bipap support. NPO due to aspiration risk; NGTube placed. Labile BP readings ABG (08/09): 7.42/41/85 Monitor: sinus with paroxysmal AFib. Episodes of RVR still requiring IV Cardizem boluses. Objective Last 24 Hour Vital Signs Date Time Temp Pulse Resp B/P (MAP) Pulse Ox O2 Delivery O2 Flow Rate FiO2 08/09/20 23:44 98.9 68 15 105/63 (77) 100 08/09/20 23:15 77 17 100 100 08/09/20 20:00 97.5 73 20 114/60 (78) 100 08/09/20 20:00 88 08/09/20 20:00 Bi-pap 15.0 08/09/20 20:00 Bi-pap 15.0 08/09/20 20:00 100 08/09/20 19:30 75 23 100 Bi-Pap 100 75 25 100 100 08/09/20 17:50 87 128/71 08/09/20 16:00 87 08/09/20 16:00 Bi-pap 15.0 08/09/20 16:00 100 08/09/20 16:00 97.7 74 15 128/71 (90) 100 08/09/20 15:37 98 18 100 100 08/09/20 12:33 100 08/09/20 12:00 100 08/09/20 12:00 Bi-pap 15.0 08/09/20 12:00 97.7 95 28 116/69 (85) 96 08/09/20 11:52 92 29 100 Bi-Pap 100 78 16 98 100 08/09/20 11:21 93 136/57 08/09/20 09:30 93 136/57 08/09/20 08:52 163 08/09/20 08:00 Bi-pap 15.0 08/09/20 08:00 100 08/09/20 08:00 98.2 105 33 136/57 (83) 98 08/09/20 07:45 166 129/85 08/09/20 07:11 110 28 98 100 08/09/20 05:15 166 129/85 08/09/20 04:00 163 08/09/20 04:00 100 08/09/20 04:00 Bi-pap 15.0 08/09/20 03:41 166 129/85 08/09/20 03:20 93 35 100 100 08/09/20 03:13 98.3 166 35 129/85 (100) 95 ROS: unchanged from my evaluation of 08/02/20 HEENT: normal ENT inspection RHYTHM: NSR, PACs, Afib LUNGS: bilateral rhonchi CARDIAC: normal S1 and S2, irregularly irregular, systolic murmur - 1/6 systolic murmurat apex, rapid rate ABDOMEN: normal bowel sounds, non tender, soft, no organomegaly EXTREMITIES: normal range of motion, trace edema Laboratory Tests Test 08/09/20 03:47 08/09/20 07:04 White Blood Count 15.0 K/UL (4.8-10.8) H Red Blood Count 4.22 M/UL (4.70-6.10) L Hemoglobin 13.3 G/DL (14.2-18.0) L Hematocrit 41.2 % (42.0-52.0) L Mean Corpuscular Volume 98 FL (80-99) Mean Corpuscular Hemoglobin 31.5 PG (27.0-31.0) H Mean Corpuscular Hemoglobin Concent 32.2 G/DL (32.0-36.0) Red Cell Distribution Width 12.5 % (11.6-14.8) Platelet Count 290 K/UL (150-450) Mean Platelet Volume 7.6 FL (6.5-10.1) Neutrophils (%) (Auto) % (45.0-75.0) Lymphocytes (%) (Auto) % (20.0-45.0) Monocytes (%) (Auto) % (1.0-10.0) Eosinophils (%) (Auto) % (0.0-3.0) Basophils (%) (Auto) % (0.0-2.0) Differential Total Cells Counted 100 Neutrophils % (Manual) 97 % (45-75) H Lymphocytes % (Manual) 2 % (20-45) L Monocytes % (Manual) 1 % (1-10) Eosinophils % (Manual) 0 % (0-3) Basophils % (Manual) 0 % (0-2) Band Neutrophils 0 % (0-8) Platelet Estimate Adequate Platelet Morphology Normal Red Blood Cell Morphology Normal Sodium Level 137 MMOL/L (136-145) Potassium Level 3.8 MMOL/L (3.5-5.1) Chloride Level 99 MMOL/L (98-107) Carbon Dioxide Level 29 MMOL/L (21-32) Anion Gap 9 mmol/L (5-15) Blood Urea Nitrogen 29 mg/dL (7-18) H Creatinine 1.1 MG/DL (0.55-1.30) # Estimat Glomerular Filtration Rate > 60 mL/min (>60) Glucose Level 142 MG/DL (74-106) H Calcium Level 8.5 MG/DL (8.5-10.1) Total Bilirubin 0.7 MG/DL (0.2-1.0) Aspartate Amino Transf (AST/SGOT) 27 U/L (15-37) Alanine Aminotransferase (ALT/SGPT) 10 U/L (12-78) L Alkaline Phosphatase 70 U/L (46-116) Total Protein 6.4 G/DL (6.4-8.2) Albumin 1.9 G/DL (3.4-5.0) L Globulin 4.5 g/dL Albumin/Globulin Ratio 0.4 (1.0-2.7) L Arterial Blood pH 7.429 (7.350-7.450) Arterial Blood Partial Pressure CO2 41.0 mmHg (35.0-45.0) Arterial Blood Partial Pressure O2 85.5 mmHg (75.0-100.0) Arterial Blood HCO3 26.5 mmol/L (22.0-26.0) H Arterial Blood Oxygen Saturation 96.1 % (95-100) Arterial Blood Base Excess 2.0 (-2-2) Emile Test Positive Assessment/Plan Assessment/Plan Paroxysmal atrial fibrillation with RVR Aspiration risk Hypokalemia Sepsis Healthcare acquired PNA Complicated UTI with indwelling catheter Hyponatremia Severe protein calorie malnutrition Acute myocardial ischemia Respiratory failure with hypoxia Hypovolemia Hypokalemia Leukocytosis persisting Sinus tachycardia Acute diastolic CHF improved post diuresis Acute myocardial ischemia CRITICAL & GUARDED Empiric antibiotics Bipap support NGTube feedings DVT prophylaxis Periodic diuresis based on clinical parameters. Potassium replacement as needed. Continue amiodarone Titrate beta katya and anti-HTN regimen. Sarkis Herman MD Aug 10, 2020 00:12
[2020-08-10] MEDS: Levalbuterol Inh UD 1.25mg/0.5ml HHN SCH ×4 (01:12→19:31)
--- NOTE | 2020-08-10 02:15 | NUR ---
NURSE NOTES: Pt BP and temperature improved: 114/55, 98.2 axil. Provided complete bed bath; No BM or distress noted. Will continue to monitor.
[2020-08-10 04:00] VITALS: BP 120/62
[2020-08-10] MEDS: Piperacillin/Tazobactam 3.375 GM in NS 110 ML IVPB SCH ×3 (05:18→22:00)
[2020-08-10] MEDS: Metoprolol Tartrate 10 MG in D5W 55 ML IVPB SCH ×5 (05:20→17:58)
[2020-08-10 06:21] LABS: HEMOGLOBIN 13.1 G/DL (14.2-18.0); MEAN CORPUSCULAR VOLUME 98 FL (80-99); PLATELET COUNT 231 K/UL (150-450); RED BLOOD COUNT 4.27 M/UL (4.70-6.10); RED CELL DISTRIBUTION WIDTH 12.7 % (11.6-14.8); WHITE BLOOD COUNT 14.5 K/UL (4.8-10.8)
[2020-08-10 06:39] LABS: ANION GAP 5 mmol/L (5-15); BLOOD UREA NITROGEN 33 mg/dL (7-18); CALCIUM 8.2 MG/DL (8.5-10.1); CARBON DIOXIDE 33 MMOL/L (21-32); CHLORIDE 101 MMOL/L (98-107); SODIUM 139 MMOL/L (136-145)
--- NOTE | 2020-08-10 06:45 | NUR ---
NURSE HAND-OFF REPORT: Important Events on Shift: No changes Patient Status: Stable Diet: Osmo 1.5 Pending Orders: Pending Results/Labs: Pending MD notification: Latest Vital Signs: Temperature 97.5 , Pulse 68 , B/P 110 /56 , Respiratory Rate 16 , O2 SAT 100 , Bi-pap, O2 Flow Rate 15.0 . Vital Sign Comment: WNL EKG Rhythm: Sinus Rhythm Rhythm change?: N MD Notified?: Aly Montoya MD Response: Message left await call Latest José Fall Score: 75 Fall Risk: High Risk Safety Measures: Call light Within Reach, Bed Alarm Zone 2, Side Rails Side Rails x3, Bed position Low and Locked. Fall Precautions: Yellow Socks Yellow Gown Door Sign Patient Fall Education Report given to BLANE Lundberg.
--- NOTE | 2020-08-10 07:10 | NUR ---
NURSE NOTES: Patient received in bed. Sleeping, no signs of distress. On continuous BiPap. Bed in lowest position, bed alarm on. On continuous NGTF on L nare. Contact isolation observed. Will continue plan of care.
--- NOTE | 2020-08-10 07:37 | NUR ---
NURSE NOTES: Dr. Nazario at nurses station. Signed POLST. Made aware of lackthereof BM and will order PRN.
[2020-08-10 08:00] VITALS: BP 148/55
[2020-08-10] MEDS: Levodopa/Carbidopa 25/100 tab NG SCH ×3 (09:13→17:56)
[2020-08-10] MEDS: Amiodarone 200mg tab NG SCH ×2 (09:13→20:06)
[2020-08-10] MEDS: Heparin 5000 units/ml inj SUBQ SCH ×2 (09:15→20:08)
--- NOTE | 2020-08-10 10:10 | NUR ---
NURSE NOTES: Patient's daughter and grand daughter at bedside. Updated plan of care.
--- NOTE | 2020-08-10 10:52 | Cardiology Report ---
APPROVED REPORT EXAM: Two-dimensional and M-mode echocardiogram with Doppler and color Doppler. INDICATION Congestive Heart Failure M-Mode DIMENSIONS IVSd0.7 (0.7-1.1cm)Left Atrium (MM)2.7 (1.6-4.0cm) LVDd3.8 (3.5-5.6cm)Aortic Root2.3 (2.0-3.7cm) PWd1.1 (0.7-1.1cm)Aortic Cusp Exc.1.5 (1.5-2.0cm) IVSs1.2 cmEPSS0.4 (>1.0cm) LVDs2.6 (2.5-4.0cm) PWs1.3 cm <Conclusion> Normal left ventricular chamber size, systolic function and wall motion. Left ventricular ejection fraction estimated to be 60-65 %. No left ventricular hypertrophy. No evidence of pericardial effusion. All other cardiac chamber sizes are within normal limits. Focal aortic valve sclerosis with adequate cusp excursion. Thickened mitral valve leaflets with normal excursion. Mitral annulus and aortic root calcification. Pulmonic valve not well visualized. Normal tricuspid valve structure. IVC at normal size with physiologic collapse. A color flow and spectral Doppler study was performed and revealed: No aortic regurgitation. Trace mitral regurgitation. Mitral diastolic velocities suggest reduced left ventricular relaxation c/w mild LV diastolic dysfunction (Grade I ). Moderate tricuspid regurgitation. Tricuspid systolic velocities suggests peak right ventricular systolic pressure of 50 mmHg, consistent with moderate pulmonary hypertension. No pulmonic regurgitation present.
[2020-08-10 12:00] VITALS: BP 98/55
--- NOTE | 2020-08-10 12:03 | NUR ---
RADIOLOGY DEPT., CHEST X-RAY DONE.-P.DYE
--- NOTE | 2020-08-10 12:03 | Pulmonology Progress Note ---
Subjective ROS Limited/Unobtainable: Yes Constitutional: Denies: fever Allergies: Coded Allergies: No Known Allergies (Unverified , 08/02/20) All Systems: reviewed and negative except above Subjective care noted on oxygen and BIPAP diffuse infiltrates Objective Last 24 Hour Vital Signs Date Time Temp Pulse Resp B/P (MAP) Pulse Ox O2 Delivery O2 Flow Rate FiO2 08/10/20 11:00 56 18 100 80 08/10/20 09:01 67 25 100 80 08/10/20 08:55 80 08/10/20 08:00 96.7 66 16 148/55 (86) 100 08/10/20 08:00 100 08/10/20 08:00 Bi-pap 08/10/20 07:39 80 08/10/20 07:10 64 15 100 Bi-Pap 100 68 20 100 100 08/10/20 05:20 68 110/56 08/10/20 04:00 Bi-pap 15.0 08/10/20 04:00 97.5 85 16 120/62 (81) 100 08/10/20 03:56 100 08/10/20 03:28 83 08/10/20 03:19 64 26 100 100 08/10/20 01:12 74 26 100 Bi-Pap 100 76 24 100 100 08/10/20 00:10 83 08/10/20 00:00 100 08/10/20 00:00 80 105/53 08/10/20 00:00 Bi-pap 15.0 08/09/20 23:44 98.9 68 15 105/63 (77) 100 08/09/20 23:15 77 17 100 100 08/09/20 20:00 97.5 73 20 114/60 (78) 100 08/09/20 20:00 88 08/09/20 20:00 Bi-pap 15.0 08/09/20 20:00 88 08/09/20 20:00 Bi-pap 15.0 08/09/20 20:00 100 08/09/20 19:30 75 23 100 Bi-Pap 100 75 25 100 100 08/09/20 17:50 87 128/71 08/09/20 16:00 87 08/09/20 16:00 Bi-pap 15.0 08/09/20 16:00 100 08/09/20 16:00 97.7 74 15 128/71 (90) 100 08/09/20 15:37 98 18 100 100 08/09/20 12:33 100 Intake and Output 08/09/20 08/10/20 19:00 07:00 Intake Total 417.5 ml 405.75 ml Output Total 1050 ml Balance -632.5 ml 405.75 ml Free Water 100 ml 40 ml IV Total 137.5 ml 145.75 ml Tube Feeding 180 ml 220 ml Output Urine Total 1050 ml Objective WDWN NAD reduced breath sounds bilaterally with noted rhonchi [id number] NABS nontender no CCE nonfocal on BIPAP Laboratory Tests 08/10/20 06:04: White Blood Count 14.5H, Red Blood Count 4.27L, Hemoglobin 13.1L, Hematocrit 42.0, Mean Corpuscular Volume 98, Mean Corpuscular Hemoglobin 30.7, Mean Corpuscular Hemoglobin Concent 31.3L, Red Cell Distribution Width 12.7, Platelet Count 231, Mean Platelet Volume 7.9, Neutrophils (%) (Auto) , Lymphocytes (%) (Auto) , Monocytes (%) (Auto) , Eosinophils (%) (Auto) , Basophils (%) (Auto) , Differential Total Cells Counted 100, Neutrophils % (Manual) 92H, Lymphocytes % (Manual) 6L, Monocytes % (Manual) 1, Eosinophils % (Manual) 1, Basophils % (Man ual) 0, Band Neutrophils 0, Platelet Estimate Adequate, Platelet Morphology Normal, Red Blood Cell Morphology Normal, Sodium Level 139, Potassium Level 3.0L , Chloride Level 101, Carbon Dioxide Level 33H, Anion Gap 5, Blood Urea Nitrogen 33H, Creatinine 1.0, Estimat Glomerular Filtration Rate > 60, Glucose Level 170H , Calcium Level 8.2L, Magnesium Level 2.1, Pro-B-Type Natriuretic Peptide 1055H 08/10/20 08:42: Arterial Blood pH 7.401, Arterial Blood Partial Pressure CO2 56.4*H, Arterial Blood Partial Pressure O2 158.2H, Arterial Blood HCO3 34.2H, Arterial Blood Oxygen Saturation 98.8, Arterial Blood Base Excess 7.9H, Emile Test Positive Current Medications Medications (Trade) Dose Ordered Sig/Javon Route PRN Reason Start Time Stop Time Status Last Admin Dose Admin Acetaminophen (Tylenol) 650 mg Q4H PRN ORAL Mild Pain (Pain Scale 1-3) 08/03/20 01:15 09/02/20 01:14 08/09/20 08:36 Acetaminophen (Tylenol) 650 mg Q4H PRN RECTAL Mild Pain (Pain Scale 1-3) 08/03/20 01:15 09/02/20 01:14 08/04/20 18:32 Amiodarone HCl (Cordarone) 200 mg EVERY 12 HOURS NG 08/09/20 21:00 11/03/20 13:14 08/10/20 09:13 Carbidopa/Levodopa (Sinemet 25/100) 1 tab THREE TIMES A DAY NG 08/09/20 18:00 09/02/20 08:59 08/10/20 09:13 Heparin Sodium (Porcine) (Heparin 5000 units/ml) 5,000 units EVERY 12 HOURS SUBQ 08/03/20 09:00 09/17/20 08:59 08/10/20 09:15 Hydralazine HCl (Apresoline) 25 mg Q6H PRN ORAL SBP above 160 08/07/20 00:30 11/05/20 00:29 Levalbuterol HCl (Xopenex) 1.25 mg Q6HRT HHN 08/07/20 01:00 08/12/20 00:59 08/10/20 07:40 Metoprolol Tartrate 10 mg/ Dextrose 65 ml @ 130 mls/hr Q6HR IVPB 08/09/20 09:30 09/08/20 09:29 Morphine Sulfate (Morphine Sulfate) 1 mg Q4H PRN IVP Moderate Pain (Pain Scale 4-6) 08/09/20 18:30 08/16/20 18:29 Piperacillin Sod/ Tazobactam Sod 3.375 gm/Sodium Chloride 110 ml @ 27.5 mls/hr EVERY 8 HOURS IVPB 08/08/20 14:00 08/13/20 13:59 08/10/20 05:18 Tamsulosin HCl (Flomax) 0.4 mg BEDTIME ORAL 08/03/20 21:00 09/02/20 20:59 08/09/20 20:41 Assessment/Plan Assessment/Plan ASSESSMENT: chronic encephalopathy, dementia, diffuse infiltrates, elevated BNP hypertension, recurrent falls, and urinary tract infection, hypoxemia, probable aspiration pneumonia. PLAN care noted respiratory care as is oxygen d/w family as to poor prognosis and consider terminal care BIPAP/oxygen repeat CXR and ABG for change follow up cultures monitor imaging DVT prophylaxis monitor oxygen needs impression, plan, and exam edited and reviewed in detail care discussed with Eriberto Gilliland MD Aug 10, 2020 12:03
--- NOTE | 2020-08-10 12:19 | Infectious Diseases Prog Note ---
Assessment/Plan Assessment/Plan antibiotics : zosyn A 1. Right-sided pneumonia. 2. COVID-19 test is negative. 3. Urinary tract infection. 4. Hypertension. 5. Dementia. 6. Respiratory failure. P 1. continue zosyn 2. will follow up cultures Subjective ROS Limited/Unobtainable: Yes Allergies: Coded Allergies: No Known Allergies (Unverified , 08/02/20) Objective Last 24 Hour Vital Signs Date Time Temp Pulse Resp B/P (MAP) Pulse Ox O2 Delivery O2 Flow Rate FiO2 08/10/20 12:00 Bi-pap 08/10/20 11:00 56 18 100 80 08/10/20 09:01 67 25 100 80 08/10/20 08:55 80 08/10/20 08:00 96.7 66 16 148/55 (86) 100 08/10/20 08:00 100 08/10/20 08:00 Bi-pap 08/10/20 07:39 80 08/10/20 07:10 64 15 100 Bi-Pap 100 68 20 100 100 08/10/20 05:20 68 110/56 08/10/20 04:00 Bi-pap 15.0 08/10/20 04:00 97.5 85 16 120/62 (81) 100 08/10/20 03:56 100 08/10/20 03:28 83 08/10/20 03:19 64 26 100 100 08/10/20 01:12 74 26 100 Bi-Pap 100 76 24 100 100 08/10/20 00:10 83 08/10/20 00:00 100 08/10/20 00:00 80 105/53 08/10/20 00:00 Bi-pap 15.0 08/09/20 23:44 98.9 68 15 105/63 (77) 100 08/09/20 23:15 77 17 100 100 08/09/20 20:00 97.5 73 20 114/60 (78) 100 08/09/20 20:00 88 08/09/20 20:00 Bi-pap 15.0 08/09/20 20:00 88 08/09/20 20:00 Bi-pap 15.0 08/09/20 20:00 100 08/09/20 19:30 75 23 100 Bi-Pap 100 75 25 100 100 08/09/20 17:50 87 128/71 08/09/20 16:00 87 08/09/20 16:00 Bi-pap 15.0 08/09/20 16:00 100 08/09/20 16:00 97.7 74 15 128/71 (90) 100 08/09/20 15:37 98 18 100 100 08/09/20 12:33 100 Height (Feet): 5 Height (Inches): 5.00 Weight (Pounds): 99 HEENT: other - on bipap Respiratory/Chest: lungs clear Cardiovascular: normal rate, regular rhythm, no gallop/murmur Abdomen: soft, non tender Extremities: no edema Laboratory Tests Test 08/10/20 06:04 08/10/20 08:42 White Blood Count 14.5 K/UL (4.8-10.8) H Red Blood Count 4.27 M/UL (4.70-6.10) L Hemoglobin 13.1 G/DL (14.2-18.0) L Hematocrit 42.0 % (42.0-52.0) Mean Corpuscular Volume 98 FL (80-99) Mean Corpuscular Hemoglobin 30.7 PG (27.0-31.0) Mean Corpuscular Hemoglobin Concent 31.3 G/DL (32.0-36.0) L Red Cell Distribution Width 12.7 % (11.6-14.8) Platelet Count 231 K/UL (150-450) Mean Platelet Volume 7.9 FL (6.5-10.1) Neutrophils (%) (Auto) % (45.0-75.0) Lymphocytes (%) (Auto) % (20.0-45.0) Monocytes (%) (Auto) % (1.0-10.0) Eosinophils (%) (Auto) % (0.0-3.0) Basophils (%) (Auto) % (0.0-2.0) Differential Total Cells Counted 100 Neutrophils % (Manual) 92 % (45-75) H Lymphocytes % (Manual) 6 % (20-45) L Monocytes % (Manual) 1 % (1-10) Eosinophils % (Manual) 1 % (0-3) Basophils % (Manual) 0 % (0-2) Band Neutrophils 0 % (0-8) Platelet Estimate Adequate Platelet Morphology Normal Red Blood Cell Morphology Normal Sodium Level 139 MMOL/L (136-145) Potassium Level 3.0 MMOL/L (3.5-5.1) L Chloride Level 101 MMOL/L (98-107) Carbon Dioxide Level 33 MMOL/L (21-32) H Anion Gap 5 mmol/L (5-15) Blood Urea Nitrogen 33 mg/dL (7-18) H Creatinine 1.0 MG/DL (0.55-1.30) Estimat Glomerular Filtration Rate > 60 mL/min (>60) Glucose Level 170 MG/DL (74-106) H Calcium Level 8.2 MG/DL (8.5-10.1) L Magnesium Level 2.1 MG/DL (1.8-2.4) Pro-B-Type Natriuretic Peptide 1055 pg/mL (0-125) H Arterial Blood pH 7.401 (7.350-7.450) Arterial Blood Partial Pressure CO2 56.4 mmHg (35.0-45.0) *H Arterial Blood Partial Pressure O2 158.2 mmHg (75.0-100.0) H Arterial Blood HCO3 34.2 mmol/L (22.0-26.0) H Arterial Blood Oxygen Saturation 98.8 % (95-100) Arterial Blood Base Excess 7.9 (-2-2) H Emile Test Positive Current Medications Medications (Trade) Dose Ordered Sig/Javon Route PRN Reason Start Time Stop Time Status Last Admin Dose Admin Acetaminophen (Tylenol) 650 mg Q4H PRN ORAL Mild Pain (Pain Scale 1-3) 08/03/20 01:15 09/02/20 01:14 08/09/20 08:36 Acetaminophen (Tylenol) 650 mg Q4H PRN RECTAL Mild Pain (Pain Scale 1-3) 08/03/20 01:15 09/02/20 01:14 08/04/20 18:32 Amiodarone HCl (Cordarone) 200 mg EVERY 12 HOURS NG 08/09/20 21:00 11/03/20 13:14 08/10/20 09:13 Carbidopa/Levodopa (Sinemet 25/100) 1 tab THREE TIMES A DAY NG 08/09/20 18:00 09/02/20 08:59 08/10/20 09:13 Heparin Sodium (Porcine) (Heparin 5000 units/ml) 5,000 units EVERY 12 HOURS SUBQ 08/03/20 09:00 09/17/20 08:59 08/10/20 09:15 Hydralazine HCl (Apresoline) 25 mg Q6H PRN ORAL SBP above 160 08/07/20 00:30 11/05/20 00:29 Levalbuterol HCl (Xopenex) 1.25 mg Q6HRT HHN 08/07/20 01:00 08/12/20 00:59 08/10/20 07:40 Metoprolol Tartrate 10 mg/ Dextrose 65 ml @ 130 mls/hr Q6HR IVPB 08/09/20 09:30 09/08/20 09:29 Morphine Sulfate (Morphine Sulfate) 1 mg Q4H PRN IVP Moderate Pain (Pain Scale 4-6) 08/09/20 18:30 08/16/20 18:29 Piperacillin Sod/ Tazobactam Sod 3.375 gm/Sodium Chloride 110 ml @ 27.5 mls/hr EVERY 8 HOURS IVPB 08/08/20 14:00 08/13/20 13:59 08/10/20 05:18 Tamsulosin HCl (Flomax) 0.4 mg BEDTIME ORAL 08/03/20 21:00 09/02/20 20:59 08/09/20 20:41 Wagner Christensen MD Aug 10, 2020 12:19
--- NOTE | 2020-08-10 13:12 | Diagnostic Imaging Report ---
Indication: Shortness of breath Technique: One view of the chest Comparison: 08/07/2020 Findings: Bilateral diffuse and extensive consolidation appears slightly improved, particularly on the right. Left pleural effusion is unchanged. The heart size is normal. Stable satisfactory position of orogastric tube Impression: Extensive and diffuse interstitial and airspace consolidation persists, may be slightly improved on the right over 3 days
[2020-08-10 16:00] VITALS: BP 108/61
--- NOTE | 2020-08-10 16:06 | NUR ---
CASE MANAGEMENT:REVIEW 08/10/20 SI: PNA. UTI. AFIB RVR 98.8 60 19 98/55 100% ON BIPAP W/80% FIO2 WBC+14.5 K-3.0 PCO2+56.4 IS: IV ZOSYN Q8HRS IV METOPROLOL Q6HRS HHN Q6HRS RTC HEPARIN SQ Q12 : SDU DCP: FROM [facility]: HAS NG TUBE
--- NOTE | 2020-08-10 16:19 | General Progress Note ---
Subjective ROS Limited/Unobtainable: No Constitutional: Reports: malaise, weakness HEENT: Reports: no symptoms Cardiovascular: Reports: no symptoms Respiratory: Reports: cough, shortness of breath Gastrointestinal/Abdominal: Reports: difficulty swallowing Genitourinary: Reports: no symptoms Neurologic/Psychiatric: Reports: pre-existing deficit Endocrine: Reports: no symptoms Hematologic/Lymphatic: Reports: anemia Allergies: Coded Allergies: No Known Allergies (Unverified , 08/02/20) All Systems: reviewed and negative except above Subjective Doing poorly. Remains on BiPAP. No congestion noted. HR better controlled. slightly decreased o2 requirements. cxr with slightl improvement Objective Last 24 Hour Vital Signs Date Time Temp Pulse Resp B/P (MAP) Pulse Ox O2 Delivery O2 Flow Rate FiO2 08/10/20 12:55 63 14 100 Bi-Pap 80 65 14 100 80 08/10/20 12:00 80 08/10/20 12:00 60 98/55 08/10/20 12:00 98.8 60 19 98/55 (69) 100 08/10/20 12:00 Bi-pap 08/10/20 11:53 68 08/10/20 11:00 56 18 100 80 08/10/20 09:01 67 25 100 80 08/10/20 08:55 80 08/10/20 08:00 96.7 66 16 148/55 (86) 100 08/10/20 08:00 100 08/10/20 08:00 Bi-pap 08/10/20 07:39 80 08/10/20 07:10 64 15 100 Bi-Pap 100 68 20 100 100 08/10/20 05:20 68 110/56 08/10/20 04:00 Bi-pap 15.0 08/10/20 04:00 97.5 85 16 120/62 (81) 100 08/10/20 03:56 100 08/10/20 03:28 83 08/10/20 03:19 64 26 100 100 08/10/20 01:12 74 26 100 Bi-Pap 100 76 24 100 100 08/10/20 00:10 83 08/10/20 00:00 100 08/10/20 00:00 80 105/53 08/10/20 00:00 Bi-pap 15.0 08/09/20 23:44 98.9 68 15 105/63 (77) 100 08/09/20 23:15 77 17 100 100 08/09/20 20:00 97.5 73 20 114/60 (78) 100 08/09/20 20:00 88 08/09/20 20:00 Bi-pap 15.0 08/09/20 20:00 88 08/09/20 20:00 Bi-pap 15.0 08/09/20 20:00 100 08/09/20 19:30 75 23 100 Bi-Pap 100 75 25 100 100 08/09/20 17:50 87 128/71 Intake and Output 08/09/20 08/10/20 19:00 07:00 Intake Total 417.5 ml 405.75 ml Output Total 1050 ml Balance -632.5 ml 405.75 ml Free Water 100 ml 40 ml IV Total 137.5 ml 145.75 ml Tube Feeding 180 ml 220 ml Output Urine Total 1050 ml Laboratory Tests 08/10/20 06:04: White Blood Count 14.5H, Red Blood Count 4.27L, Hemoglobin 13.1L, Hematocrit 4 2.0, Mean Corpuscular Volume 98, Mean Corpuscular Hemoglobin 30.7, Mean Corpuscular Hemoglobin Concent 31.3L, Red Cell Distribution Width 12.7, Platelet Count 231, Mean Platelet Volume 7.9, Neutrophils (%) (Auto) , Lymphocytes (%) (Auto) , Monocytes (%) (Auto) , Eosinophils (%) (Auto) , Basophils (%) (Auto) , Differential Total Cells Counted 100, Neutrophils % (Manual) 92H, Lymphocytes % (Manual) 6L, Monocytes % (Manual) 1, Eosinophils % (Manual) 1, Basophils % (Manual) 0, Band Neutrophils 0, Platelet Estimate Adequate, Platelet Morphology Normal, Red Blood Cell Morphology Normal, Sodium Level 139, Potassium Level 3.0L , Chloride Level 101, Carbon Dioxide Level 33H, Anion Gap 5, Blood Urea Nitrogen 33H, Creatinine 1.0, Estimat Glomerular Filtration Rate > 60, Glucose Level 170H , Calcium Level 8.2L, Magnesium Level 2.1, Pro-B-Type Natriuretic Peptide 1055H 08/10/20 08:42: Arterial Blood pH 7.401, Arterial Blood Partial Pressure CO2 56.4*H, Arterial Blood Partial Pressure O2 158.2H, Arterial Blood HCO3 34.2H, Arterial Blood Oxygen Saturation 98.8, Arterial Blood Base Excess 7.9H, Emile Test Positive Height (Feet): 5 Height (Inches): 5.00 Weight (Pounds): 99 Objective General Appearance: WD/WN, confused, thin. on bipap EENT: normal ENT inspection Neck: non-tender, normal alignment, supple Cardiovascular: normal rate, regular rhythm Respiratory/Chest: chest wall non-tender, lungs clear, normal breath sounds, no respiratory distress, no accessory muscle use Abdomen: normal bowel sounds, non tender, soft, no organomegaly Edema: no edema noted Arm (L), no edema noted Arm (R) Assessment/Plan Problem List: (1) Pneumonia ICD Codes: J18.9 - Pneumonia, unspecified organism SNOMED: 792866574 (2) Hypoxia ICD Codes: R09.02 - Hypoxemia SNOMED: 124932047 (3) AMS (altered mental status) ICD Codes: R41.82 - Altered mental status, unspecified SNOMED: 999280463 (4) UTI (urinary tract infection) ICD Codes: N39.0 - Urinary tract infection, site not specified SNOMED: 66485922 (5) Sepsis ICD Codes: A41.9 - Sepsis, unspecified organism SNOMED: 51481071 Status: stable, not improved Assessment/Plan: bipap as needed rate control monitor abg and cxr iv abx per speech rx tube feeds dvt/stress ulcer prophylaxis monitor lytes replace k ngt feeds has advanced directive for dnr Chavez Gilmore MD Aug 10, 2020 16:19
[2020-08-10] MEDS ORDERED: Sodium Chloride for KCL Premix X 3hrs IV SCH (18:00)
--- NOTE | 2020-08-10 18:30 | NUR ---
NURSE NOTES: Dr. Herman in the unit. Informed him that metoprolol drip order was never been administered due to low blood pressure and patient is been Sinus Rhythm. Dr. Herman said that he will change the order.
--- NOTE | 2020-08-10 19:35 | NUR ---
NURSE HAND-OFF REPORT: Important Events on Shift: Patient Status: DNR/DNI Diet: NGT FEEDING Pending Orders: Pending Results/Labs: Pending MD notification: Latest Vital Signs: Temperature 96.6 , Pulse 66 , B/P 99 /55 , Respiratory Rate 27 , O2 SAT 95 , Bi-pap, O2 Flow Rate 15.0 . Vital Sign Comment: REMAINS ON BIPAP, FIO2 OF 80% EKG Rhythm: Sinus Rhythm Rhythm change?: N Latest José Fall Score: 75 Fall Risk: High Risk Safety Measures: Call light Within Reach, Bed Alarm Zone 2, Side Rails Side Rails x3, Bed position Low and Locked. Fall Precautions: Yellow Socks Yellow Gown Door Sign Patient Fall Education Report given to Mishel BAR RN.
--- NOTE | 2020-08-10 19:36 | NUR ---
NURSE NOTES: Received report from Tamika with update. Pt observed to be awake, confused, non-responsive to verbal stimuli. Attempting to remove BiPAP. On BiPAP saturating 100% on settings of 15/4 and 80% fiO2. 5-lead EKG shows SR at 74 bpm. Left NGT running Osmolite 1.5 at 20 mL. Auscultated for placement. Left peripheral IV running 10 meq KCl Overton draining well to gravity. Bed kept in lowest and locked position. Bed alarm on. Will continue monitoring.
[2020-08-10 20:00] VITALS: BP 105/56
[2020-08-10] MEDS: Tamsulosin 0.4mg cap ORAL SCH (20:06)
[2020-08-10] MEDS: Metoprolol Tartrate 12.5mg TAB ORAL SCH (20:06)
[2020-08-11] VITALS: BP 106/53
--- NOTE | 2020-08-11 01:00 | Cardiology Progress Note ---
Subjective DATE OF SERVICE: Aug 10, 2020 Less congested and SOB; still on bipap support. NPO due to aspiration risk; NGTube placed. Labile BP readings ABG (08/09): 7.42/41/85 Monitor: sinus with rare paroxysmal AFib today. Objective Last 24 Hour Vital Signs Date Time Temp Pulse Resp B/P (MAP) Pulse Ox O2 Delivery O2 Flow Rate FiO2 08/10/20 23:25 77 17 100 Bi-Pap 80 70 22 100 80 08/10/20 20:06 66 99/55 08/10/20 20:00 97.0 71 22 105/56 (72) 100 08/10/20 20:00 80 08/10/20 20:00 82 08/10/20 20:00 Bi-pap 08/10/20 20:00 Bi-pap 08/10/20 19:41 69 27 95 Bi-Pap 80 70 22 100 80 08/10/20 17:58 76 108/61 08/10/20 16:00 96.6 76 20 108/61 (77) 100 08/10/20 16:00 80 08/10/20 16:00 Bi-pap 08/10/20 15:20 71 16 100 80 08/10/20 15:13 77 08/10/20 12:55 63 14 100 Bi-Pap 80 65 14 100 80 08/10/20 12:00 80 08/10/20 12:00 60 98/55 08/10/20 12:00 98.8 60 19 98/55 (69) 100 08/10/20 12:00 Bi-pap 08/10/20 11:53 68 08/10/20 11:00 56 18 100 80 08/10/20 09:01 67 25 100 80 08/10/20 08:55 80 08/10/20 08:00 96.7 66 16 148/55 (86) 100 08/10/20 08:00 100 08/10/20 08:00 Bi-pap 08/10/20 07:39 80 08/10/20 07:10 64 15 100 Bi-Pap 100 68 20 100 100 08/10/20 05:20 68 110/56 08/10/20 04:00 Bi-pap 15.0 08/10/20 04:00 97.5 85 16 120/62 (81) 100 08/10/20 03:56 100 08/10/20 03:28 83 08/10/20 03:19 64 26 100 100 08/10/20 01:12 74 26 100 Bi-Pap 100 76 24 100 100 ROS: unchanged from my evaluation of 08/02/20 HEENT: normal ENT inspection RHYTHM: NSR, PACs LUNGS: bilateral rhonchi CARDIAC: normal S1 and S2, irregularly irregular, systolic murmur - 1/6 systolic murmurat apex, rapid rate ABDOMEN: normal bowel sounds, non tender, soft, no organomegaly EXTREMITIES: normal range of motion, trace edema Laboratory Tests Test 08/10/20 06:04 08/10/20 08:42 White Blood Count 14.5 K/UL (4.8-10.8) H Red Blood Count 4.27 M/UL (4.70-6.10) L Hemoglobin 13.1 G/DL (14.2-18.0) L Hematocrit 42.0 % (42.0-52.0) Mean Corpuscular Volume 98 FL (80-99) Mean Corpuscular Hemoglobin 30.7 PG (27.0-31.0) Mean Corpuscular Hemoglobin Concent 31.3 G/DL (32.0-36.0) L Red Cell Distribution Width 12.7 % (11.6-14.8) Platelet Count 231 K/UL (150-450) Mean Platelet Volume 7.9 FL (6.5-10.1) Neutrophils (%) (Auto) % (45.0-75.0) Lymphocytes (%) (Auto) % (20.0-45.0) Monocytes (%) (Auto) % (1.0-10.0) Eosinophils (%) (Auto) % (0.0-3.0) Basophils (%) (Auto) % (0.0-2.0) Differential Total Cells Counted 100 Neutrophils % (Manual) 92 % (45-75) H Lymphocytes % (Manual) 6 % (20-45) L Monocytes % (Manual) 1 % (1-10) Eosinophils % (Manual) 1 % (0-3) Basophils % (Manual) 0 % (0-2) Band Neutrophils 0 % (0-8) Platelet Estimate Adequate Platelet Morphology Normal Red Blood Cell Morphology Normal Sodium Level 139 MMOL/L (136-145) Potassium Level 3.0 MMOL/L (3.5-5.1) L Chloride Level 101 MMOL/L (98-107) Carbon Dioxide Level 33 MMOL/L (21-32) H Anion Gap 5 mmol/L (5-15) Blood Urea Nitrogen 33 mg/dL (7-18) H Creatinine 1.0 MG/DL (0.55-1.30) Estimat Glomerular Filtration Rate > 60 mL/min (>60) Glucose Level 170 MG/DL (74-106) H Calcium Level 8.2 MG/DL (8.5-10.1) L Magnesium Level 2.1 MG/DL (1.8-2.4) Pro-B-Type Natriuretic Peptide 1055 pg/mL (0-125) H Arterial Blood pH 7.401 (7.350-7.450) Arterial Blood Partial Pressure CO2 56.4 mmHg (35.0-45.0) *H Arterial Blood Partial Pressure O2 158.2 mmHg (75.0-100.0) H Arterial Blood HCO3 34.2 mmol/L (22.0-26.0) H Arterial Blood Oxygen Saturation 98.8 % (95-100) Arterial Blood Base Excess 7.9 (-2-2) H Emile Test Positive Assessment/Plan Assessment/Plan Paroxysmal atrial fibrillation with RVR Acute myocardial ischemia with elevated troponin Aspiration risk Hypokalemia Sepsis Healthcare acquired PNA Complicated UTI with indwelling catheter Hyponatremia Severe protein calorie malnutrition Acute myocardial ischemia Respiratory failure with hypoxia Hypovolemia Hypokalemia Leukocytosis persisting Sinus tachycardia CRITICAL & GUARDED Empiric antibiotics Bipap support NGTube feedings DVT prophylaxis Periodic diuresis based on clinical parameters. Potassium replacement as needed. Continue amiodarone Titrate beta katya (oral dose now) and anti-HTN regimen. Sarkis Herman MD Aug 11, 2020 01:00
--- NOTE | 2020-08-11 01:25 | NUR ---
NURSE NOTES: Pt attempting to pull medical devices and remove BiPAP despite all needs met. In stable condition.
--- NOTE | 2020-08-11 01:52 | NUR ---
RESPIRATORY NOTE: PT RECEIVED STABLE ON BIPAP WITH CURRENT SETTINGS. 15/2, RR:12 @ 80% FIO2. ALARMS ARE ON AND AUDIBLE. NO S/S OF RESPIRATORY DISTRESS NOTED AT THIS TIME. WILL CONTINUE TO MONITOR.
[2020-08-11] MEDS: Levalbuterol Inh UD 1.25mg/0.5ml HHN SCH ×4 (01:54→19:37)
[2020-08-11 04:00] VITALS: BP 126/58
--- NOTE | 2020-08-11 05:04 | NUR ---
RESPIRATORY NOTE: PT STABLE ON BIPAP WITH CURRENT SETTINGS. NO S/S OF RESPIRATORY DISTRESS NOTED AT THIS TIME.
[2020-08-11] MEDS: Piperacillin/Tazobactam 3.375 GM in NS 110 ML IVPB SCH ×3 (05:42→22:01)
[2020-08-11 05:49] LABS: HEMATOCRIT 35.5 % (42.0-52.0); HEMOGLOBIN 11.1 G/DL (14.2-18.0); MEAN CORPUSCULAR VOLUME 100 FL (80-99); PLATELET COUNT 222 K/UL (150-450); RED BLOOD COUNT 3.56 M/UL (4.70-6.10); WHITE BLOOD COUNT 15.3 K/UL (4.8-10.8)
--- NOTE | 2020-08-11 06:00 | NUR ---
RESPIRATORY NOTE: Received pt stable on BIPAP 15/4, backup rate 12, 80% Fio2. Spo2 100% on current settings. Pt is awake and disoriented. Pt is in no apparent distress at this time. BIPAP tape is in place. Alarms are on and audible. BIPAP is plugged into the red outlet. Ambu bag is at bedside. Will continue to monitor and follow plan of care.
[2020-08-11 06:23] LABS: ALANINE AMINOTRANSFERASE 14 U/L (12-78); ALBUMIN 1.3 G/DL (3.4-5.0); ALBUMIN/GLOBULIN RATIO 0.3 (1.0-2.7); ALKALINE PHOSPHATASE 70 U/L (46-116); ANION GAP -2 mmol/L (5-15); ASPARTATE AMINO TRANSFERASE 30 U/L (15-37); BILIRUBIN,TOTAL 0.3 MG/DL (0.2-1.0); BLOOD UREA NITROGEN 40 mg/dL (7-18); CALCIUM 8.4 MG/DL (8.5-10.1); CARBON DIOXIDE 38 MMOL/L (21-32); CHLORIDE 105 MMOL/L (98-107); CREATININE 0.8 MG/DL (0.55-1.30); POTASSIUM 3.7 MMOL/L (3.5-5.1); SODIUM 141 MMOL/L (136-145)
--- NOTE | 2020-08-11 07:30 | NUR ---
NURSE NOTES: Received pt from RN Sharee, pt is awake and confused, pt in on non rebreath mask 15lit now, no stress noted. pt has intact iv access LH 22g SL. Pt has Overton cath in place is working well. pt has ng tube in place is working well. all needs attended, bed is locked and is in the lowest position, call light within easy reach. will continue to monitor.
--- NOTE | 2020-08-11 07:30 | NUR ---
NURSE HAND-OFF REPORT: Important Events on Shift: no changes ; pt continues to pull off BiPAP Patient Status: Stable Diet: Nepro Pending Orders: Pending Results/Labs: Pending MD notification: Latest Vital Signs: Temperature 98.6 , Pulse 76 , B/P 126 /58 , Respiratory Rate 27 , O2 SAT 98 , Bi-pap, O2 Flow Rate 15.0 . Vital Sign Comment: EKG Rhythm: Sinus Rhythm Rhythm change?: N Notified?: Aly Montoya MD Response: Message left await call Latest José Fall Score: 75 Fall Risk: High Risk Safety Measures: Call light Within Reach, Bed Alarm Zone 1, Side Rails Side Rails x3, Bed position Low and Locked. Fall Precautions: Yellow Socks Yellow Gown Door Sign Patient Fall Education Report given to BLANE Hahn.
--- NOTE | 2020-08-11 07:38 | NUR ---
RESPIRATORY NOTE: Placed pt on 100% non rebreather mask per MD order for comfort measures only. Spo2 98% on NRB. Halima RN and Jovani RN bedside. ABG to be drawn at 1200. Pt is in no apparent distress at this time. Will continue to monitor and follow plan of care.
[2020-08-11 08:00] VITALS: BP 114/57
--- NOTE | 2020-08-11 08:32 | General Progress Note ---
Subjective ROS Limited/Unobtainable: No Constitutional: Reports: malaise, weakness HEENT: Reports: no symptoms Cardiovascular: Reports: no symptoms Respiratory: Reports: cough, shortness of breath, SOB at rest Gastrointestinal/Abdominal: Reports: difficulty swallowing Genitourinary: Reports: no symptoms Neurologic/Psychiatric: Reports: pre-existing deficit Endocrine: Reports: no symptoms Hematologic/Lymphatic: Reports: anemia Allergies: Coded Allergies: No Known Allergies (Unverified , 08/02/20) All Systems: reviewed and negative except above Subjective on bipap. per staff labile sats/resp status. no fevers or chills. alert. follows simple commands. cxr with minimal improvement. Objective Last 24 Hour Vital Signs Date Time Temp Pulse Resp B/P (MAP) Pulse Ox O2 Delivery O2 Flow Rate FiO2 08/11/20 07:38 98 Non-Rebreather 15.0 100 08/11/20 07:33 76 27 100 Bi-Pap 80 80 29 10 80 08/11/20 04:07 75 08/11/20 04:00 Bi-pap 08/11/20 04:00 80 08/11/20 04:00 98.6 70 25 126/58 (80) 100 08/11/20 03:20 77 21 100 80 08/11/20 01:52 77 28 100 Bi-Pap 80 70 13 100 08/11/20 00:00 72 08/11/20 00:00 Bi-pap 08/11/20 00:00 98.1 75 18 106/53 (70) 100 08/10/20 23:25 77 17 100 Bi-Pap 80 70 22 100 80 08/10/20 20:06 66 99/55 08/10/20 20:00 97.0 71 22 105/56 (72) 100 08/10/20 20:00 80 08/10/20 20:00 82 08/10/20 20:00 Bi-pap 08/10/20 20:00 Bi-pap 08/10/20 19:41 69 27 95 Bi-Pap 80 70 22 100 80 08/10/20 17:58 76 108/61 08/10/20 16:00 96.6 76 20 108/61 (77) 100 08/10/20 16:00 80 08/10/20 16:00 Bi-pap 08/10/20 15:20 71 16 100 80 08/10/20 15:13 77 08/10/20 12:55 63 14 100 Bi-Pap 80 65 14 100 80 08/10/20 12:00 80 08/10/20 12:00 60 98/55 08/10/20 12:00 98.8 60 19 98/55 (69) 100 08/10/20 12:00 Bi-pap 08/10/20 11:53 68 08/10/20 11:00 56 18 100 80 08/10/20 09:01 67 25 100 80 08/10/20 08:55 80 Intake and Output 08/10/20 08/11/20 19:00 07:00 Intake Total 690.0 ml 438.25 ml Output Total 100 ml 450 ml Balance 590.0 ml -11.75 ml IV Total 310.0 ml 218.25 ml Tube Feeding 260 ml 220 ml Other 120 ml Output Urine Total 100 ml 450 ml Laboratory Tests 08/10/20 08:42: Arterial Blood pH 7.401, Arterial Blood Partial Pressure CO2 56.4*H, Arterial Blood Partial Pressure O2 158.2H, Arterial Blood HCO3 34.2H, Arterial Blood Oxygen Saturation 98.8, Arterial Blood Base Excess 7.9H, Emile Test Positive 08/11/20 04:05: White Blood Count 15.3H, Red Blood Count 3.56L, Hemoglobin 11.1L, Hematocrit 35.5L, Mean Corpuscular Volume 100H, Mean Corpuscular Hemoglobin 31.1H, Mean Corpuscular Hemoglobin Concent 31.2L, Red Cell Distribution Width 13.0, Platelet Count 222, Mean Platelet Volume 7.6, Neutrophils (%) (Auto) , Lymphocytes (%) (Auto) , Monocytes (%) (Auto) , Eosinophils (%) (Auto) , Basophils (%) (Auto) , Neutrophils % (Manual) [Pending], Lymphocytes % (Manual) [Pending], Platelet Estimate [Pending], Platelet Morphology [Pending], Sodium Level 141, Potassium Level 3.7, Chloride Level 105, Carbon Dioxide Level 38H, Anion Gap -2L, Blood Urea Nitrogen 40H, Creatinine 0.8, Estimat Glomerular Filtration Rate > 60, Glucose Level 139H, Calcium Level 8.4L, Total Bilirubin 0.3, Aspartate Amino Transf (AST/SGOT) 30, Alanine Aminotransferase (ALT/SGPT) 14, Alkaline Phosphatase 70, Pro-B-Type Natriuretic Peptide 628H, Total Protein 5.4L, Albumin 1.3L, Globulin 4.1, Albumin/Globulin Ratio 0.3L Height (Feet): 5 Height (Inches): 5.00 Weight (Pounds): 99 Objective General Appearance: WD/WN, confused, thin. on bipap EENT: normal ENT inspection Neck: non-tender, normal alignment, supple Cardiovascular: normal rate, regular rhythm Respiratory/Chest: chest wall non-tender, lungs clear, normal breath sounds, no respiratory distress, no accessory muscle use Abdomen: normal bowel sounds, non tender, soft, no organomegaly Edema: no edema noted Arm (L), no edema noted Arm (R) Assessment/Plan Problem List: (1) Pneumonia ICD Codes: J18.9 - Pneumonia, unspecified organism SNOMED: 156718856 (2) Hypoxia ICD Codes: R09.02 - Hypoxemia SNOMED: 405138877 (3) AMS (altered mental status) ICD Codes: R41.82 - Altered mental status, unspecified SNOMED: 732873810 (4) UTI (urinary tract infection) ICD Codes: N39.0 - Urinary tract infection, site not specified SNOMED: 82141527 (5) Sepsis ICD Codes: A41.9 - Sepsis, unspecified organism SNOMED: 73063820 Status: stable, not improved Assessment/Plan: bipap as needed try to wean to NRB rate control monitor abg and cxr iv abx per speech rx tube feeds dvt/stress ulcer prophylaxis monitor lytes ngt feeds has advanced directive for dnr Chavez Gilmore MD Aug 11, 2020 08:32
[2020-08-11] MEDS: Amiodarone 200mg tab NG SCH ×2 (09:08→20:23)
[2020-08-11] MEDS: Metoprolol Tartrate 12.5mg TAB ORAL SCH ×2 (09:09→20:23)
[2020-08-11] MEDS: Levodopa/Carbidopa 25/100 tab NG SCH ×3 (09:09→18:05)
[2020-08-11] MEDS: Heparin 5000 units/ml inj SUBQ SCH ×2 (09:10→20:24)
--- NOTE | 2020-08-11 09:11 | Pulmonology Progress Note ---
Subjective ROS Limited/Unobtainable: No Constitutional: Denies: fever Allergies: Coded Allergies: No Known Allergies (Unverified , 08/02/20) All Systems: reviewed and negative except above Subjective care noted on oxygen NRB diffuse infiltrates Objective Last 24 Hour Vital Signs Date Time Temp Pulse Resp B/P (MAP) Pulse Ox O2 Delivery O2 Flow Rate FiO2 08/11/20 08:00 15.0 95 08/11/20 08:00 Bi-pap 08/11/20 08:00 98.1 86 25 114/57 (76) 95 08/11/20 07:38 98 Non-Rebreather 15.0 100 08/11/20 07:33 76 27 100 Bi-Pap 80 80 29 10 80 08/11/20 04:07 75 08/11/20 04:00 Bi-pap 08/11/20 04:00 80 08/11/20 04:00 98.6 70 25 126/58 (80) 100 08/11/20 03:20 77 21 100 80 08/11/20 01:52 77 28 100 Bi-Pap 80 70 13 100 08/11/20 00:00 72 08/11/20 00:00 Bi-pap 08/11/20 00:00 98.1 75 18 106/53 (70) 100 08/10/20 23:25 77 17 100 Bi-Pap 80 70 22 100 80 08/10/20 20:06 66 99/55 08/10/20 20:00 97.0 71 22 105/56 (72) 100 08/10/20 20:00 80 08/10/20 20:00 82 08/10/20 20:00 Bi-pap 08/10/20 20:00 Bi-pap 08/10/20 19:41 69 27 95 Bi-Pap 80 70 22 100 80 08/10/20 17:58 76 108/61 08/10/20 16:00 96.6 76 20 108/61 (77) 100 08/10/20 16:00 80 08/10/20 16:00 Bi-pap 08/10/20 15:20 71 16 100 80 08/10/20 15:13 77 08/10/20 12:55 63 14 100 Bi-Pap 80 65 14 100 80 08/10/20 12:00 80 08/10/20 12:00 60 98/55 08/10/20 12:00 98.8 60 19 98/55 (69) 100 08/10/20 12:00 Bi-pap 08/10/20 11:53 68 08/10/20 11:00 56 18 100 80 Intake and Output 08/10/20 08/11/20 19:00 07:00 Intake Total 690.0 ml 438.25 ml Output Total 100 ml 450 ml Balance 590.0 ml -11.75 ml IV Total 310.0 ml 218.25 ml Tube Feeding 260 ml 220 ml Other 120 ml Output Urine Total 100 ml 450 ml Objective WDWN NAD reduced breath sounds bilaterally with noted rhonchi [id number] NABS nontender no CCE nonfocal on BIPAP Laboratory Tests 08/11/20 04:05: White Blood Count 15.3H, Red Blood Count 3.56L, Hemoglobin 11.1L, Hematocrit 35.5L, Mean Corpuscular Volume 100H, Mean Corpuscular Hemoglobin 31.1H, Mean Corpuscular Hemoglobin Concent 31.2L, Red Cell Distribution Width 13.0, Platelet Count 222, Mean Platelet Volume 7.6, Neutrophils (%) (Auto) , Lymphocytes (%) (Auto) , Monocytes (%) (Auto) , Eosinophils (%) (Auto) , Basophils (%) (Auto) , Neutrophils % (Manual) [Pending], Lymphocytes % (Manual) [Pending], Platelet Estimate [Pending], Platelet Morphology [Pending], Sodium Level 141, Potassium Level 3.7, Chloride Level 105, Carbon Dioxide Level 38H, Anion Gap -2L, Blood Urea Nitrogen 40H, Creatinine 0.8, Estimat Glomerular Filtration Rate > 60, Glucose Level 139H, Calcium Level 8.4L, Total Bilirubin 0.3, Aspartate Amino Transf (AST/SGOT) 30, Alanine Aminotransferase (ALT/SGPT) 14, Alkaline Phosphatase 70, Pro-B-Type Natriuretic Peptide 628H, Total Protein 5.4L, Albumin 1.3L, Globulin 4.1, Albumin/Globulin Ratio 0.3L Current Medications Medications (Trade) Dose Ordered Sig/Javon Route PRN Reason Start Time Stop Time Status Last Admin Dose Admin Acetaminophen (Tylenol) 650 mg Q4H PRN ORAL Mild Pain (Pain Scale 1-3) 08/03/20 01:15 09/02/20 01:14 08/09/20 08:36 Acetaminophen (Tylenol) 650 mg Q4H PRN RECTAL Mild Pain (Pain Scale 1-3) 08/03/20 01:15 09/02/20 01:14 08/04/20 18:32 Amiodarone HCl (Cordarone) 200 mg EVERY 12 HOURS NG 08/09/20 21:00 11/03/20 13:14 08/10/20 20:06 Carbidopa/Levodopa (Sinemet 25/100) 1 tab THREE TIMES A DAY NG 08/09/20 18:00 09/02/20 08:59 08/10/20 17:56 Heparin Sodium (Porcine) (Heparin 5000 units/ml) 5,000 units EVERY 12 HOURS SUBQ 08/03/20 09:00 09/17/20 08:59 08/10/20 20:08 Hydralazine HCl (Apresoline) 25 mg Q6H PRN ORAL SBP above 160 08/07/20 00:30 11/05/20 00:29 Levalbuterol HCl (Xopenex) 1.25 mg Q6HRT HHN 08/07/20 01:00 08/12/20 00:59 08/11/20 07:23 Metoprolol Tartrate (Lopressor) 12.5 mg Q12HR ORAL 08/10/20 21:00 11/08/20 20:59 Morphine Sulfate (Morphine Sulfate) 1 mg Q4H PRN IVP Moderate Pain (Pain Scale 4-6) 08/09/20 18:30 08/16/20 18:29 Piperacillin Sod/ Tazobactam Sod 3.375 gm/Sodium Chloride 110 ml @ 27.5 mls/hr EVERY 8 HOURS IVPB 08/08/20 14:00 08/13/20 13:59 08/11/20 05:42 Tamsulosin HCl (Flomax) 0.4 mg BEDTIME ORAL 08/03/20 21:00 09/02/20 20:59 08/10/20 20:06 Assessment/Plan Assessment/Plan ASSESSMENT: chronic encephalopathy, dementia, diffuse infiltrates, elevated BNP hypertension, recurrent falls, and urinary tract infection, hypoxemia, probable aspiration pneumonia. PLAN care noted respiratory care as is oxygen d/w family as to poor prognosis and consider terminal care ON NRB oxygen repeat CXR and ABG noted palliative care recommended impression, plan, and exam edited and reviewed in detail care discussed with Eriberto Gilliland MD Aug 11, 2020 09:11
--- NOTE | 2020-08-11 11:27 | Infectious Diseases Prog Note ---
Assessment/Plan Assessment/Plan antibiotics : zosyn A 1. Right-sided pneumonia. 2. COVID-19 test is negative. 3. Urinary tract infection. 4. Hypertension. 5. Dementia. 6. Respiratory failure. P 1. continue zosyn 2. will follow up cultures 3. poor prognosis Subjective ROS Limited/Unobtainable: Yes Allergies: Coded Allergies: No Known Allergies (Unverified , 08/02/20) Objective Last 24 Hour Vital Signs Date Time Temp Pulse Resp B/P (MAP) Pulse Ox O2 Delivery O2 Flow Rate FiO2 08/11/20 09:09 86 114/57 08/11/20 08:00 15.0 95 08/11/20 08:00 Bi-pap 08/11/20 08:00 98.1 86 25 114/57 (76) 95 08/11/20 07:38 98 Non-Rebreather 15.0 100 08/11/20 07:33 76 27 100 Bi-Pap 80 80 29 10 80 08/11/20 04:07 75 08/11/20 04:00 Bi-pap 08/11/20 04:00 80 08/11/20 04:00 98.6 70 25 126/58 (80) 100 08/11/20 03:20 77 21 100 80 08/11/20 01:52 77 28 100 Bi-Pap 80 70 13 100 08/11/20 00:00 72 08/11/20 00:00 Bi-pap 08/11/20 00:00 98.1 75 18 106/53 (70) 100 08/10/20 23:25 77 17 100 Bi-Pap 80 70 22 100 80 08/10/20 20:06 66 99/55 08/10/20 20:00 97.0 71 22 105/56 (72) 100 08/10/20 20:00 80 08/10/20 20:00 82 08/10/20 20:00 Bi-pap 08/10/20 20:00 Bi-pap 08/10/20 19:41 69 27 95 Bi-Pap 80 70 22 100 80 08/10/20 17:58 76 108/61 08/10/20 16:00 96.6 76 20 108/61 (77) 100 08/10/20 16:00 80 08/10/20 16:00 Bi-pap 08/10/20 15:20 71 16 100 80 08/10/20 15:13 77 08/10/20 12:55 63 14 100 Bi-Pap 80 65 14 100 80 08/10/20 12:00 80 08/10/20 12:00 60 98/55 08/10/20 12:00 98.8 60 19 98/55 (69) 100 08/10/20 12:00 Bi-pap 08/10/20 11:53 68 Height (Feet): 5 Height (Inches): 5.00 Weight (Pounds): 99 Respiratory/Chest: lungs clear Cardiovascular: normal rate, regular rhythm, no gallop/murmur Abdomen: soft, non tender Extremities: no edema Laboratory Tests Test 08/11/20 04:05 White Blood Count 15.3 K/UL (4.8-10.8) H Red Blood Count 3.56 M/UL (4.70-6.10) L Hemoglobin 11.1 G/DL (14.2-18.0) L Hematocrit 35.5 % (42.0-52.0) L Mean Corpuscular Volume 100 FL (80-99) H Mean Corpuscular Hemoglobin 31.1 PG (27.0-31.0) H Mean Corpuscular Hemoglobin Concent 31.2 G/DL (32.0-36.0) L Red Cell Distribution Width 13.0 % (11.6-14.8) Platelet Count 222 K/UL (150-450) Mean Platelet Volume 7.6 FL (6.5-10.1) Neutrophils (%) (Auto) % (45.0-75.0) Lymphocytes (%) (Auto) % (20.0-45.0) Monocytes (%) (Auto) % (1.0-10.0) Eosinophils (%) (Auto) % (0.0-3.0) Basophils (%) (Auto) % (0.0-2.0) Differential Total Cells Counted 100 Neutrophils % (Manual) 95 % (45-75) H Lymphocytes % (Manual) 3 % (20-45) L Monocytes % (Manual) 2 % (1-10) Eosinophils % (Manual) 0 % (0-3) Basophils % (Manual) 0 % (0-2) Band Neutrophils 0 % (0-8) Platelet Estimate Adequate Platelet Morphology Normal Hypochromasia 1+ Sodium Level 141 MMOL/L (136-145) Potassium Level 3.7 MMOL/L (3.5-5.1) Chloride Level 105 MMOL/L (98-107) Carbon Dioxide Level 38 MMOL/L (21-32) H Anion Gap -2 mmol/L (5-15) L Blood Urea Nitrogen 40 mg/dL (7-18) H Creatinine 0.8 MG/DL (0.55-1.30) Estimat Glomerular Filtration Rate > 60 mL/min (>60) Glucose Level 139 MG/DL (74-106) H Calcium Level 8.4 MG/DL (8.5-10.1) L Total Bilirubin 0.3 MG/DL (0.2-1.0) Aspartate Amino Transf (AST/SGOT) 30 U/L (15-37) Alanine Aminotransferase (ALT/SGPT) 14 U/L (12-78) Alkaline Phosphatase 70 U/L (46-116) Pro-B-Type Natriuretic Peptide 628 pg/mL (0-125) H Total Protein 5.4 G/DL (6.4-8.2) L Albumin 1.3 G/DL (3.4-5.0) L Globulin 4.1 g/dL Albumin/Globulin Ratio 0.3 (1.0-2.7) L Current Medications Medications (Trade) Dose Ordered Sig/Javon Route PRN Reason Start Time Stop Time Status Last Admin Dose Admin Acetaminophen (Tylenol) 650 mg Q4H PRN ORAL Mild Pain (Pain Scale 1-3) 08/03/20 01:15 09/02/20 01:14 08/09/20 08:36 Acetaminophen (Tylenol) 650 mg Q4H PRN RECTAL Mild Pain (Pain Scale 1-3) 08/03/20 01:15 09/02/20 01:14 08/04/20 18:32 Amiodarone HCl (Cordarone) 200 mg EVERY 12 HOURS NG 08/09/20 21:00 11/03/20 13:14 08/11/20 09:08 Carbidopa/Levodopa (Sinemet 25/100) 1 tab THREE TIMES A DAY NG 08/09/20 18:00 09/02/20 08:59 08/11/20 09:09 Heparin Sodium (Porcine) (Heparin 5000 units/ml) 5,000 units EVERY 12 HOURS SUBQ 08/03/20 09:00 09/17/20 08:59 08/11/20 09:10 Hydralazine HCl (Apresoline) 25 mg Q6H PRN ORAL SBP above 160 08/07/20 00:30 11/05/20 00:29 Levalbuterol HCl (Xopenex) 1.25 mg Q6HRT HHN 08/07/20 01:00 08/12/20 00:59 08/11/20 07:23 Metoprolol Tartrate (Lopressor) 12.5 mg Q12HR ORAL 08/10/20 21:00 11/08/20 20:59 08/11/20 09:09 Morphine Sulfate (Morphine Sulfate) 1 mg Q4H PRN IVP Moderate Pain (Pain Scale 4-6) 08/09/20 18:30 08/16/20 18:29 Piperacillin Sod/ Tazobactam Sod 3.375 gm/Sodium Chloride 110 ml @ 27.5 mls/hr EVERY 8 HOURS IVPB 08/08/20 14:00 08/13/20 13:59 08/11/20 05:42 Tamsulosin HCl (Flomax) 0.4 mg BEDTIME ORAL 08/03/20 21:00 09/02/20 20:59 08/10/20 20:06 Wagner Christensen MD Aug 11, 2020 11:27
[2020-08-11 12:00] VITALS: BP 138/67
--- NOTE | 2020-08-11 15:25 | NUR ---
NURSE NOTES: Dr Valencia notified PCO2 61.4 with non rebreathe mask, waiting to call back. will continue to monitor.
[2020-08-11 16:00] VITALS: BP 134/72
--- NOTE | 2020-08-11 16:41 | NUR ---
NURSE NOTES: Dr Valencia called back and stated continue with non rebreathe mask due to comfort care, noted and carried out. will continue to close monitoring.
--- NOTE | 2020-08-11 17:06 | NUR ---
NURSE NOTES: Dr Gilmore called and is aware about pco2 61.4 ordered to keep pt on non rebreathe mask till pt isn't tachycardia or tachepnea and do ABG on 2100, noted and carried out. RT Fitzpatrick is aware. will continue close monitoring.
--- NOTE | 2020-08-11 17:31 | NUR ---
RESPIRATORY NOTE: Received pt stable on BIPAP 15/4, backup rate 12, 80% Fio2. Spo2 100% on current settings. Pt is awake and disoriented. Pt is in no apparent distress at this time. BIPAP tape is in place. Alarms are on and audible. BIPAP is plugged into the red outlet. Ambu bag is at bedside. Will continue to monitor and follow plan of care. Addendum: 08/11/20 at 1739 by Nanette Bauer RT Time stamp correction received pt at 0600.
--- NOTE | 2020-08-11 19:05 | NUR ---
NURSE NOTES: Per morning nurse, Dr. Brandt pt has no bowel movement since 08/04. Will inform MD again.
--- NOTE | 2020-08-11 19:15 | NUR ---
NURSE NOTES: Received report from BLANE Burgos. Pt is seen lying in bed in semi- carlos's position. pt is on Non rebreather mask o2 sat- 100%. Pt has no signs of respiratory distress. No signs of pain noted. Pt is alert x 1-2. Pt open spontaneously and garbled when ask. Pt on restraints. Pt has no skin breakdowns under the restraints, per morning shift pt is removing the non rebreather. Pt has RFA g22 patent and intact. Pt has Gtube intact and patent, no residual noted. Pt has SR in surveillance monitor. Bed in lowest position. Call light within reach. Continue to plan of care.
--- NOTE | 2020-08-11 19:31 | NUR ---
NURSE HAND-OFF REPORT: Important Events on Shift: Patient Status: Diet: Pending Orders: Pending Results/Labs: Pending notification: Latest Vital Signs: Temperature 96.3 , Pulse 94 , B/P 134 /72 , Respiratory Rate 25 , O2 SAT 99 , Bi-pap, O2 Flow Rate 15.0 . Vital Sign Comment: EKG Rhythm: Sinus Rhythm Rhythm change?: N Notified?: Aly Montoya MD Response: Message left await call Latest Ojsé Fall Score: 75 Fall Risk: High Risk Safety Measures: Call light Within Reach, Bed Alarm Zone 1, Side Rails Side Rails x3, Bed position Low and Locked. Fall Precautions: Yellow Socks Yellow Gown Door Sign Patient Fall Education Report given to . pt is stable, no stress noted. Endorsed plan of care, endorsed to change non rebreathe mask to bipap if pt has tachypnea or tachycardia as Dr Gilmore order and F/U for ABG at 2100. SPO2 98% HR 95.
[2020-08-11 20:00] VITALS: BP 133/83
[2020-08-11] MEDS: Tamsulosin 0.4mg cap ORAL SCH (20:23)
--- NOTE | 2020-08-11 21:08 | NUR ---
NURSE NOTES: ABG resulted from pco2- 61.4 at 2100- pco2- 56.6. Dr kay radiation control technician of Dr. lei made aware awaiting for response.
--- NOTE | 2020-08-11 21:09 | NUR ---
NURSE NOTES: Pt on Non rebreather at 15L- o2 sat- 97%. Continue to plan of care.
[2020-08-11] MEDS ORDERED: HydrALAZINE 25mg tab NG PRN (22:30)
--- NOTE | 2020-08-11 22:51 | Cardiology Progress Note ---
Subjective DATE OF SERVICE: Aug 11, 2020 Less congested and SOB; still on bipap support. NPO due to aspiration risk; NGTube placed. Labile BP readings ABG (08/11): 7.42/56/57 on VM Monitor: sinus with rare paroxysmal AFib today. Objective Last 24 Hour Vital Signs Date Time Temp Pulse Resp B/P (MAP) Pulse Ox O2 Delivery O2 Flow Rate FiO2 08/11/20 20:23 91 133/83 08/11/20 20:00 96 08/11/20 20:00 15.0 08/11/20 20:00 Bi-pap 08/11/20 20:00 97.3 91 22 133/83 (100) 98 08/11/20 19:37 99 24 98 Non-Rebreather 15.0 100 96 20 97 08/11/20 17:08 94 08/11/20 16:00 Bi-pap 08/11/20 16:00 15.0 95 08/11/20 16:00 96.3 94 25 134/72 (92) 99 08/11/20 14:03 98 26 88 Non-Rebreather 15.0 100 94 26 96 08/11/20 12:00 Bi-pap 08/11/20 12:00 15.0 95 08/11/20 12:00 98.0 78 26 138/67 (90) 95 08/11/20 11:42 89 08/11/20 09:09 86 114/57 08/11/20 08:00 15.0 95 08/11/20 08:00 Bi-pap 08/11/20 08:00 98.1 86 25 114/57 (76) 95 08/11/20 07:45 71 08/11/20 07:38 98 Non-Rebreather 15.0 100 08/11/20 07:33 76 27 100 Bi-Pap 80 80 29 10 80 08/11/20 04:07 75 08/11/20 04:00 Bi-pap 08/11/20 04:00 80 08/11/20 04:00 98.6 70 25 126/58 (80) 100 08/11/20 03:20 77 21 100 80 08/11/20 01:52 77 28 100 Bi-Pap 80 70 13 100 08/11/20 00:00 72 08/11/20 00:00 Bi-pap 08/11/20 00:00 98.1 75 18 106/53 (70) 100 08/10/20 23:25 77 17 100 Bi-Pap 80 70 22 100 80 ROS: unchanged from my evaluation of 08/02/20 HEENT: normal ENT inspection RHYTHM: NSR, PACs LUNGS: bilateral rhonchi CARDIAC: normal S1 and S2, irregularly irregular, systolic murmur - 1/6 systolic murmurat apex, rapid rate ABDOMEN: normal bowel sounds, non tender, soft, no organomegaly EXTREMITIES: normal range of motion, trace edema Laboratory Tests Test 08/11/20 04:05 08/11/20 12:15 08/11/20 21:00 White Blood Count 15.3 K/UL (4.8-10.8) H Red Blood Count 3.56 M/UL (4.70-6.10) L Hemoglobin 11.1 G/DL (14.2-18.0) L Hematocrit 35.5 % (42.0-52.0) L Mean Corpuscular Volume 100 FL (80-99) H Mean Corpuscular Hemoglobin 31.1 PG (27.0-31.0) H Mean Corpuscular Hemoglobin Concent 31.2 G/DL (32.0-36.0) L Red Cell Distribution Width 13.0 % (11.6-14.8) Platelet Count 222 K/UL (150-450) Mean Platelet Volume 7.6 FL (6.5-10.1) Neutrophils (%) (Auto) % (45.0-75.0) Lymphocytes (%) (Auto) % (20.0-45.0) Monocytes (%) (Auto) % (1.0-10.0) Eosinophils (%) (Auto) % (0.0-3.0) Basophils (%) (Auto) % (0.0-2.0) Differential Total Cells Counted 100 Neutrophils % (Manual) 95 % (45-75) H Lymphocytes % (Manual) 3 % (20-45) L Monocytes % (Manual) 2 % (1-10) Eosinophils % (Manual) 0 % (0-3) Basophils % (Manual) 0 % (0-2) Band Neutrophils 0 % (0-8) Platelet Estimate Adequate Platelet Morphology Normal Hypochromasia 1+ Sodium Level 141 MMOL/L (136-145) Potassium Level 3.7 MMOL/L (3.5-5.1) Chloride Level 105 MMOL/L (98-107) Carbon Dioxide Level 38 MMOL/L (21-32) H Anion Gap -2 mmol/L (5-15) L Blood Urea Nitrogen 40 mg/dL (7-18) H Creatinine 0.8 MG/DL (0.55-1.30) Estimat Glomerular Filtration Rate > 60 mL/min (>60) Glucose Level 139 MG/DL (74-106) H Calcium Level 8.4 MG/DL (8.5-10.1) L Total Bilirubin 0.3 MG/DL (0.2-1.0) Aspartate Amino Transf (AST/SGOT) 30 U/L (15-37) Alanine Aminotransferase (ALT/SGPT) 14 U/L (12-78) Alkaline Phosphatase 70 U/L (46-116) Pro-B-Type Natriuretic Peptide 628 pg/mL (0-125) H Total Protein 5.4 G/DL (6.4-8.2) L Albumin 1.3 G/DL (3.4-5.0) L Globulin 4.1 g/dL Albumin/Globulin Ratio 0.3 (1.0-2.7) L Arterial Blood pH 7.421 (7.350-7.450) 7.442 (7.350-7.450) Arterial Blood Partial Pressure CO2 61.4 mmHg (35.0-45.0) *H 56.6 mmHg (35.0-45.0) *H Arterial Blood Partial Pressure O2 60.1 mmHg (75.0-100.0) L 57.0 mmHg (75.0-100.0) L Arterial Blood HCO3 39.0 mmol/L (22.0-26.0) H 37.8 mmol/L (22.0-26.0) H Arterial Blood Oxygen Saturation 91.6 % (95-100) L 90.2 % (95-100) L Arterial Blood Base Excess 12.2 (-2-2) *H 11.6 (-2-2) *H Emile Test Positive Positive Assessment/Plan Assessment/Plan Paroxysmal atrial fibrillation with RVR Acute myocardial ischemia with elevated troponin Aspiration risk Sepsis Healthcare acquired PNA Complicated UTI with indwelling catheter Hyponatremia Severe protein calorie malnutrition Acute myocardial ischemia Respiratory failure with hypoxia persisting Hypokalemia Leukocytosis improving Ac/chronic diastolic CHF CRITICAL & GUARDED Empiric antibiotics Bipap support resumed NGTube feedings DVT prophylaxis Periodic diuresis based on clinical parameters. Potassium replacement as needed. Continue amiodarone Titrate beta katya (oral dose now) and anti-HTN regimen. Sarkis Herman MD Aug 11, 2020 22:51
[2020-08-12] VITALS: BP 141/76
--- NOTE | 2020-08-12 00:10 | NUR ---
NURSE NOTES: Seen pt in semi- carlos's position. Not in respiratory distress, no signs of pain noted. Pt is still anxious and wants to pull medical devices. Sponge bath given, still no bowel movement noted, will notify MD. No abdominal distention noted. Continue to plan of care.
--- NOTE | 2020-08-12 03:42 | NUR ---
NURSE NOTES: Seen pt in bed in semi-carlos's position. Pt on non rebreather mask, tolerating well o2 sat-98%. Pt is sleeping comfortably in bed with no signs of apparent distress. Bed in lowest position.Call light within reach. Continue to plan of care.
[2020-08-12 04:00] VITALS: BP 146/77
[2020-08-12 04:45] LABS: HEMATOCRIT 40.3 % (42.0-52.0); HEMOGLOBIN 12.6 G/DL (14.2-18.0); MEAN CORPUSCULAR VOLUME 100 FL (80-99); PLATELET COUNT 211 K/UL (150-450); RED BLOOD COUNT 4.04 M/UL (4.70-6.10); RED CELL DISTRIBUTION WIDTH 12.7 % (11.6-14.8); WHITE BLOOD COUNT 17.3 K/UL (4.8-10.8)
[2020-08-12] MEDS: Piperacillin/Tazobactam 3.375 GM in NS 110 ML IVPB SCH ×3 (05:05→21:37)
[2020-08-12 05:23] LABS: ALANINE AMINOTRANSFERASE 9 U/L (12-78); ALBUMIN 1.5 G/DL (3.4-5.0); ALBUMIN/GLOBULIN RATIO 0.3 (1.0-2.7); ALKALINE PHOSPHATASE 89 U/L (46-116); ANION GAP -2 mmol/L (5-15); ASPARTATE AMINO TRANSFERASE 25 U/L (15-37); BILIRUBIN,TOTAL 0.4 MG/DL (0.2-1.0); BLOOD UREA NITROGEN 41 mg/dL (7-18); CALCIUM 8.6 MG/DL (8.5-10.1); CARBON DIOXIDE 40 MMOL/L (21-32); CHLORIDE 105 MMOL/L (98-107); CREATININE 0.9 MG/DL (0.55-1.30); POTASSIUM 3.5 MMOL/L (3.5-5.1); SODIUM 144 MMOL/L (136-145)
--- NOTE | 2020-08-12 07:33 | NUR ---
NURSE HAND-OFF REPORT: Important Events on Shift: ABG done- Pc02- 56.5- Dr. Herman aware and Dr. Gilmore aware Patient Status: Stable Diet: GTF Pending Orders: None Pending Results/Labs:NONe Pending MD notification: None Latest Vital Signs: Temperature 98.0 , Pulse 73 , B/P 146 /77 , Respiratory Rate 22 , O2 SAT 99 , Bi-pap, O2 Flow Rate 15.0 . Vital Sign Comment: WNL EKG Rhythm: Sinus Rhythm Rhythm change?: Aly KURTZ Notified?: William Montoya MD Response: Message left await call Latest José Fall Score: 95 Fall Risk: High Risk Safety Measures: Call light Within Reach, Bed Alarm Zone 1, Side Rails Side Rails x3, Bed position Low and Locked. Fall Precautions: Yellow Socks Yellow Gown Door Sign Patient Fall Education Report given to [BLANE Elias].
--- NOTE | 2020-08-12 07:35 | NUR ---
NURSE NOTES: Seen by Dr. Gilmore aware of the Pc02 56.6 and no bowel movement, per . He will check the labs and will order for stool softener. No downgrade for tele for now, per Dr. Gilmore.
--- NOTE | 2020-08-12 07:51 | NUR ---
NURSE NOTES: Received report from BLANE Vega. Patient in bed resting, no active s/s cardiac, respiratory distress noticed at this time. Patient SR with HR 73, on Non-rebreather 15L, O2 sat 98%. Overton Catheter draining well to gravity, Patient open eyes spontaneously, confused. IV on left hand 24G, right FA 22G, asymptomatic, patent, intact. Patient on NGT left nares, Osmolite 1.5 @ 20ml/h, asymptomatic, patent. Patient on bilateral soft wrist restraints, able to move, cap refill <3 sec. Bed in lowest position, side rails upx3, call light within reach, bed alarm on, Will continue to monitor.
[2020-08-12 08:00] VITALS: BP 164/78
[2020-08-12] MEDS: Amiodarone 200mg tab NG SCH ×2 (08:19→20:20)
[2020-08-12] MEDS: Levodopa/Carbidopa 25/100 tab NG SCH ×3 (08:19→17:47)
[2020-08-12] MEDS: Metoprolol Tartrate 12.5mg TAB NG SCH ×2 (08:20→20:20)
[2020-08-12] MEDS: Heparin 5000 units/ml inj SUBQ SCH ×2 (08:21→20:21)
--- NOTE | 2020-08-12 08:58 | General Progress Note ---
Subjective ROS Limited/Unobtainable: Yes Constitutional: Reports: malaise, weakness HEENT: Reports: no symptoms Cardiovascular: Reports: no symptoms Respiratory: Reports: cough, shortness of breath, sputum Gastrointestinal/Abdominal: Reports: difficulty swallowing Genitourinary: Reports: no symptoms Neurologic/Psychiatric: Reports: no symptoms Endocrine: Reports: no symptoms Hematologic/Lymphatic: Reports: no symptoms Allergies: Coded Allergies: No Known Allergies (Unverified , 08/02/20) All Systems: reviewed and negative except above Subjective on nrbm. stats ok/stable. no fevers or chills. alert. follows simple commands. cxr with minimal improvement. +constipation Objective Last 24 Hour Vital Signs Date Time Temp Pulse Resp B/P (MAP) Pulse Ox O2 Delivery O2 Flow Rate FiO2 08/12/20 08:20 98 164/78 08/12/20 08:00 97.6 98 24 164/78 (106) 98 08/12/20 04:00 98.0 98 22 146/77 (100) 99 08/12/20 04:00 73 08/12/20 04:00 Bi-pap 08/12/20 04:00 15.0 08/12/20 03:20 15.0 100 08/12/20 00:00 90 08/12/20 00:00 Bi-pap 08/12/20 00:00 97.7 89 21 141/76 (97) 97 08/11/20 20:23 91 133/83 08/11/20 20:00 96 08/11/20 20:00 15.0 08/11/20 20:00 Bi-pap 08/11/20 20:00 97.3 91 22 133/83 (100) 98 08/11/20 20:00 99 Non-Rebreather 15.0 100 08/11/20 19:37 99 24 98 Non-Rebreather 15.0 100 96 20 97 08/11/20 17:08 94 08/11/20 16:00 Bi-pap 08/11/20 16:00 15.0 95 08/11/20 16:00 96.3 94 25 134/72 (92) 99 08/11/20 14:03 98 26 88 Non-Rebreather 15.0 100 94 26 96 08/11/20 12:00 Bi-pap 08/11/20 12:00 15.0 95 08/11/20 12:00 98.0 78 26 138/67 (90) 95 08/11/20 11:42 89 08/11/20 09:09 86 114/57 Intake and Output 08/11/20 08/12/20 19:00 07:00 Intake Total 470.0 ml 430.0 ml Output Total 500 ml 350 ml Balance -30.0 ml 80.0 ml Free Water 120 ml 50 ml IV Total 110.0 ml 110.0 ml Tube Feeding 240 ml 220 ml Blood Product 50 ml Output Urine Total 500 ml 350 ml # Bowel Movements 1 Laboratory Tests 08/11/20 12:15: Arterial Blood pH 7.421, Arterial Blood Partial Pressure CO2 61.4*H, Arterial Blood Partial Pressure O2 60.1L, Arterial Blood HCO3 39.0H, Arterial Blood Oxygen Saturation 91.6L, Arterial Blood Base Excess 12.2*H, Emile Test Positive 08/11/20 21:00: Arterial Blood pH 7.442, Arterial Blood Partial Pressure CO2 56.6*H, Arterial Blood Partial Pressure O2 57.0L, Arterial Blood HCO3 37.8H, Arterial Blood Oxygen Saturation 90.2L, Arterial Blood Base Excess 11.6*H, Emile Test Positive 08/12/20 03:20: White Blood Count 17.3H, Red Blood Count 4.04L, Hemoglobin 12.6L, Hematocrit 40.3L, Mean Corpuscular Volume 100H, Mean Corpuscular Hemoglobin 31.3H, Mean Corpuscular Hemoglobin Concent 31.4L, Red Cell Distribution Width 12.7, Platelet Count 211, Mean Platelet Volume 7.9, Neutrophils (%) (Auto) , Lymphocytes (%) (Auto) , Monocytes (%) (Auto) , Eosinophils (%) (Auto) , Basophils (%) (Auto) , Neutrophils % (Manual) [Pending], Lymphocytes % (Manual) [Pending], Platelet Estimate [Pending], Platelet Morphology [Pending], Sodium Level 144, Potassium Level 3.5, Chloride Level 105, Carbon Dioxide Level 40H, Anion Gap -2L, Blood Urea Nitrogen 41H, Creatinine 0.9, Estimat Glomerular Filtration Rate > 60, Glucose Level 153H, Calcium Level 8.6, Total Bilirubin 0.4, Aspartate Amino T ransf (AST/SGOT) 25, Alanine Aminotransferase (ALT/SGPT) 9L, Alkaline Phosphatase 89, Total Protein 6.0L, Albumin 1.5L, Globulin 4.5, Albumin/Globulin Ratio 0.3L Height (Feet): 5 Height (Inches): 5.00 Weight (Pounds): 99 Objective General Appearance: WD/WN, confused, thin. on bipap EENT: normal ENT inspection Neck: non-tender, normal alignment, supple Cardiovascular: normal rate, regular rhythm Respiratory/Chest: chest wall non-tender, lungs clear, normal breath sounds, no respiratory distress, no accessory muscle use Abdomen: normal bowel sounds, non tender, soft, no organomegaly Edema: no edema noted Arm (L), no edema noted Arm (R) Assessment/Plan Problem List: (1) Pneumonia ICD Codes: J18.9 - Pneumonia, unspecified organism SNOMED: 525530284 (2) Hypoxia ICD Codes: R09.02 - Hypoxemia SNOMED: 641172482 (3) AMS (altered mental status) ICD Codes: R41.82 - Altered mental status, unspecified SNOMED: 587304851 (4) UTI (urinary tract infection) ICD Codes: N39.0 - Urinary tract infection, site not specified SNOMED: 82586538 (5) Sepsis ICD Codes: A41.9 - Sepsis, unspecified organism SNOMED: 12668729 Status: stable, not improved Assessment/Plan: wena fio2 rate control monitor abg and cxr iv abx per speech rx tube feeds dvt/stress ulcer prophylaxis monitor lytes ngt feeds bowel regime has advanced directive for dnr Chavez Gilmore MD Aug 12, 2020 08:58
[2020-08-12] MEDS ORDERED: Milk of Magnesia 30ml Ud GT PRN (09:00)
[2020-08-12] MEDS: Docusate 100mg/10ml Liq GT SCH ×2 (09:52→17:47)
--- NOTE | 2020-08-12 11:30 | Infectious Diseases Prog Note ---
Assessment/Plan Assessment/Plan antibiotics : zosyn A 1. Right-sided pneumonia. 2. COVID-19 test is negative. 3. Urinary tract infection. 4. Hypertension. 5. Dementia. 6. Respiratory failure. 7. leucocytosis increased P 1. continue zosyn 2. start iv vancomycin 3. will follow up cultures 4. poor prognosis Subjective ROS Limited/Unobtainable: Yes Allergies: Coded Allergies: No Known Allergies (Unverified , 08/02/20) Objective Last 24 Hour Vital Signs Date Time Temp Pulse Resp B/P (MAP) Pulse Ox O2 Delivery O2 Flow Rate FiO2 08/12/20 08:20 98 164/78 08/12/20 08:00 97.6 98 24 164/78 (106) 98 08/12/20 08:00 Non-Rebreather 15.0 08/12/20 08:00 15.0 08/12/20 08:00 100 08/12/20 04:00 98.0 98 22 146/77 (100) 99 08/12/20 04:00 73 08/12/20 04:00 Bi-pap 08/12/20 04:00 15.0 08/12/20 03:20 15.0 100 08/12/20 00:00 90 08/12/20 00:00 Bi-pap 08/12/20 00:00 97.7 89 21 141/76 (97) 97 08/11/20 20:23 91 133/83 08/11/20 20:00 96 08/11/20 20:00 15.0 08/11/20 20:00 Bi-pap 08/11/20 20:00 97.3 91 22 133/83 (100) 98 08/11/20 20:00 99 Non-Rebreather 15.0 100 08/11/20 19:37 99 24 98 Non-Rebreather 15.0 100 96 20 97 08/11/20 17:08 94 08/11/20 16:00 Bi-pap 08/11/20 16:00 15.0 95 08/11/20 16:00 96.3 94 25 134/72 (92) 99 08/11/20 14:03 98 26 88 Non-Rebreather 15.0 100 94 26 96 08/11/20 12:00 Bi-pap 08/11/20 12:00 15.0 95 08/11/20 12:00 98.0 78 26 138/67 (90) 95 08/11/20 11:42 89 Height (Feet): 5 Height (Inches): 5.00 Weight (Pounds): 99 Respiratory/Chest: lungs clear Cardiovascular: normal rate, regular rhythm, no gallop/murmur Abdomen: soft, non tender Extremities: no edema Laboratory Tests Test 08/11/20 12:15 08/11/20 21:00 08/12/20 03:20 Arterial Blood pH 7.421 (7.350-7.450) 7.442 (7.350-7.450) Arterial Blood Partial Pressure CO2 61.4 mmHg (35.0-45.0) *H 56.6 mmHg (35.0-45.0) *H Arterial Blood Partial Pressure O2 60.1 mmHg (75.0-100.0) L 57.0 mmHg (75.0-100.0) L Arterial Blood HCO3 39.0 mmol/L (22.0-26.0) H 37.8 mmol/L (22.0-26.0) H Arterial Blood Oxygen Saturation 91.6 % (95-100) L 90.2 % (95-100) L Arterial Blood Base Excess 12.2 (-2-2) *H 11.6 (-2-2) *H Emile Test Positive Positive White Blood Count 17.3 K/UL (4.8-10.8) H Red Blood Count 4.04 M/UL (4.70-6.10) L Hemoglobin 12.6 G/DL (14.2-18.0) L Hematocrit 40.3 % (42.0-52.0) L Mean Corpuscular Volume 100 FL (80-99) H Mean Corpuscular Hemoglobin 31.3 PG (27.0-31.0) H Mean Corpuscular Hemoglobin Concent 31.4 G/DL (32.0-36.0) L Red Cell Distribution Width 12.7 % (11.6-14.8) Platelet Count 211 K/UL (150-450) Mean Platelet Volume 7.9 FL (6.5-10.1) Neutrophils (%) (Auto) % (45.0-75.0) Lymphocytes (%) (Auto) % (20.0-45.0) Monocytes (%) (Auto) % (1.0-10.0) Eosinophils (%) (Auto) % (0.0-3.0) Basophils (%) (Auto) % (0.0-2.0) Differential Total Cells Counted 100 Neutrophils % (Manual) 96 % (45-75) H Lymphocytes % (Manual) 1 % (20-45) L Monocytes % (Manual) 3 % (1-10) Eosinophils % (Manual) 0 % (0-3) Basophils % (Manual) 0 % (0-2) Band Neutrophils 0 % (0-8) Platelet Estimate Adequate Platelet Morphology Normal Sodium Level 144 MMOL/L (136-145) Potassium Level 3.5 MMOL/L (3.5-5.1) Chloride Level 105 MMOL/L (98-107) Carbon Dioxide Level 40 MMOL/L (21-32) H Anion Gap -2 mmol/L (5-15) L Blood Urea Nitrogen 41 mg/dL (7-18) H Creatinine 0.9 MG/DL (0.55-1.30) Estimat Glomerular Filtration Rate > 60 mL/min (>60) Glucose Level 153 MG/DL (74-106) H Calcium Level 8.6 MG/DL (8.5-10.1) Total Bilirubin 0.4 MG/DL (0.2-1.0) Aspartate Amino Transf (AST/SGOT) 25 U/L (15-37) Alanine Aminotransferase (ALT/SGPT) 9 U/L (12-78) L Alkaline Phosphatase 89 U/L (46-116) Total Protein 6.0 G/DL (6.4-8.2) L Albumin 1.5 G/DL (3.4-5.0) L Globulin 4.5 g/dL Albumin/Globulin Ratio 0.3 (1.0-2.7) L Current Medications Medications (Trade) Dose Ordered Sig/Javon Route PRN Reason Start Time Stop Time Status Last Admin Dose Admin Acetaminophen (Tylenol) 650 mg Q4H PRN ORAL Mild Pain (Pain Scale 1-3) 08/03/20 01:15 09/02/20 01:14 08/09/20 08:36 Acetaminophen (Tylenol) 650 mg Q4H PRN RECTAL Mild Pain (Pain Scale 1-3) 08/03/20 01:15 09/02/20 01:14 08/04/20 18:32 Amiodarone HCl (Cordarone) 200 mg EVERY 12 HOURS NG 08/09/20 21:00 11/03/20 13:14 08/12/20 08:19 Carbidopa/Levodopa (Sinemet 25/100) 1 tab THREE TIMES A DAY NG 08/09/20 18:00 09/02/20 08:59 08/12/20 08:19 Docusate Sodium (Colace) 100 mg TWICE A DAY GT 08/12/20 09:00 09/11/20 08:59 08/12/20 09:52 Heparin Sodium (Porcine) (Heparin 5000 units/ml) 5,000 units EVERY 12 HOURS SUBQ 08/03/20 09:00 09/17/20 08:59 08/12/20 08:21 Hydralazine HCl (Apresoline) 25 mg Q6H PRN NG SBP above 160 08/11/20 22:30 11/05/20 00:29 Magnesium Hydroxide (Mom) 30 ml DAILYPRN PRN GT Constipation 08/12/20 09:00 09/11/20 08:59 Metoprolol Tartrate (Lopressor) 12.5 mg Q12HR NG 08/12/20 09:00 11/08/20 20:59 08/12/20 08:20 Morphine Sulfate (Morphine Sulfate) 1 mg Q4H PRN IVP Moderate Pain (Pain Scale 4-6) 08/09/20 18:30 08/16/20 18:29 Piperacillin Sod/ Tazobactam Sod 3.375 gm/Sodium Chloride 110 ml @ 27.5 mls/hr EVERY 8 HOURS IVPB 08/08/20 14:00 08/17/20 13:59 08/12/20 05:05 Tamsulosin HCl (Flomax) 0.4 mg BEDTIME ORAL 08/03/20 21:00 09/02/20 20:59 08/11/20 20:23 Wagner Christensen MD Aug 12, 2020 11:30
[2020-08-12 12:00] VITALS: BP 164/72
--- NOTE | 2020-08-12 12:10 | NUR ---
RD ASSESSMENT & RECOMMENDATIONS SEE CARE ACTIVITY FOR COMPLETE ASSESSMENT DAILY ESTIMATED NEEDS: Needs based on Underweight, pulmonary/ 45kg 30-35 kcals/kg 8692-7729 total kcals 1-1.5 g protein/kg 45-68 g total protein 25-30 mL/kg 4351-3619 total fluid mLs NUTRITION DIAGNOSIS: * Increased kcal/prot needs R/T underweight status, pulmonary status as evidenced by pt @ 73% IBW, w/ BMI of 16.5, low BMI per guidelines, h/o COPD, on venturi mask. * Swallowing difficulty R/T dysphagia as evidenced by s/p failed video swallow study, w/ rec for NPO, s/p NGT insertion. (CURRENT TF: Osmolite 1.5 @20) ENTERAL NUTRITION RECOMMENDATIONS: Glucerna 1.2 @ 50ml/hr x 24 hrs to provide 1200ml, 1440kcal, 72g prot, 933ml free water * Initiate Glucerna 1.2 (carb control) @ 10ml/hr x 6hrs * Advance 10ml q 4-6 hrs as tolerated to goal * HOB over 30 degrees * Without IVF, h20 flush of 100ml q 6hrs ADDITIONAL RECOMMENDATIONS: * Wt@ SNF on 07/2904=526kha vs EMR wt of 49.8kg (109.5lbs) vs initial EMR wt of 99lbs -> Rec daily calibrated bedscale wt * Monitor lytes daily w/ TF, replete as needed- high risk for refeeding * Monitor BGs w/ TF, need for carb controlled TF and/or NISS * NOW ON BIPAP, TF HELD FROm 08/06 -> TF restarted on NRB mask, rec TF change for carb control formula
[2020-08-12] MEDS: Vancomycin 1gm/D5W 275ml IVPB SCH ×2 (13:40)
--- NOTE | 2020-08-12 14:06 | Pulmonology Progress Note ---
Subjective ROS Limited/Unobtainable: Yes Constitutional: Denies: fever Allergies: Coded Allergies: No Known Allergies (Unverified , 08/02/20) All Systems: reviewed and negative except above Subjective care noted on oxygen NRB diffuse infiltrates Objective Last 24 Hour Vital Signs Date Time Temp Pulse Resp B/P (MAP) Pulse Ox O2 Delivery O2 Flow Rate FiO2 08/12/20 12:00 Non-Rebreather 15.0 08/12/20 12:00 97 08/12/20 12:00 15.0 08/12/20 12:00 97.7 93 23 164/72 (102) 97 08/12/20 08:20 98 164/78 08/12/20 08:00 97.6 98 24 164/78 (106) 98 08/12/20 08:00 Non-Rebreather 15.0 08/12/20 08:00 15.0 08/12/20 08:00 100 08/12/20 04:00 98.0 98 22 146/77 (100) 99 08/12/20 04:00 73 08/12/20 04:00 Bi-pap 08/12/20 04:00 15.0 08/12/20 03:20 15.0 100 08/12/20 00:00 90 08/12/20 00:00 Bi-pap 08/12/20 00:00 97.7 89 21 141/76 (97) 97 08/11/20 20:23 91 133/83 08/11/20 20:00 96 08/11/20 20:00 15.0 08/11/20 20:00 Bi-pap 08/11/20 20:00 97.3 91 22 133/83 (100) 98 08/11/20 20:00 99 Non-Rebreather 15.0 100 08/11/20 19:37 99 24 98 Non-Rebreather 15.0 100 96 20 97 08/11/20 17:08 94 08/11/20 16:00 Bi-pap 08/11/20 16:00 15.0 95 08/11/20 16:00 96.3 94 25 134/72 (92) 99 Intake and Output 08/11/20 08/12/20 19:00 07:00 Intake Total 470.0 ml 430.0 ml Output Total 500 ml 350 ml Balance -30.0 ml 80.0 ml Free Water 120 ml 50 ml IV Total 110.0 ml 110.0 ml Tube Feeding 240 ml 220 ml Blood Product 50 ml Output Urine Total 500 ml 350 ml # Bowel Movements 1 Objective WDWN NAD reduced breath sounds bilaterally with noted rhonchi [id number] NABS nontender no CCE nonfocal on BIPAP Laboratory Tests 08/11/20 21:00: Arterial Blood pH 7.442, Arterial Blood Partial Pressure CO2 56.6*H, Arterial Blood Partial Pressure O2 57.0L, Arterial Blood HCO3 37.8H, Arterial Blood Oxygen Saturation 90.2L, Arterial Blood Base Excess 11.6*H, Emile Test Positive 08/12/20 03:20: White Blood Count 17.3H, Red Blood Count 4.04L, Hemoglobin 12.6L, Hematocrit 40.3L, Mean Corpuscular Volume 100H, Mean Corpuscular Hemoglobin 31.3H, Mean Corpuscular Hemoglobin Concent 31.4L, Red Cell Distribution Width 12.7, Platelet Count 211, Mean Platelet Volume 7.9, Neutrophils (%) (Auto) , Lymphocytes (%) (Auto) , Monocytes (%) (Auto) , Eosinophils (%) (Auto) , Basophils (%) (Auto) , Differential Total Cells Counted 100, Neutrophils % (Manual) 96H, Lymphocytes % (Manual) 1L, Monocytes % (Manual) 3, Eosinophils % (Manual) 0, Basophils % (Manual) 0, Band Neutrophils 0, Platelet Estimate Adequate, Platelet Morphology Normal, Sodium Level 144, Potassium Level 3.5, Chloride Level 105, Carbon Dioxide Level 40H, Anion Gap -2L, Blood Urea Nitrogen 41H, Creatinine 0.9, Estimat Glomerular Filtration Rate > 60, Glucose Level 153H, Calcium Level 8.6, Total Bilirubin 0.4, Aspartate Amino Transf (AST/SGOT) 25, Alanine Aminotransferase (ALT/SGPT) 9L, Alkaline Phosphatase 89, Total Protein 6.0L, Albumin 1.5L, Globulin 4.5, Albumin/Globulin Ratio 0.3L Current Medications Medications (Trade) Dose Ordered Sig/Javon Route PRN Reason Start Time Stop Time Status Last Admin Dose Admin Acetaminophen (Tylenol) 650 mg Q4H PRN ORAL Mild Pain (Pain Scale 1-3) 08/03/20 01:15 09/02/20 01:14 08/09/20 08:36 Acetaminophen (Tylenol) 650 mg Q4H PRN RECTAL Mild Pain (Pain Scale 1-3) 08/03/20 01:15 09/02/20 01:14 08/04/20 18:32 Amiodarone HCl (Cordarone) 200 mg EVERY 12 HOURS NG 08/09/20 21:00 11/03/20 13:14 08/12/20 08:19 Carbidopa/Levodopa (Sinemet 25/100) 1 tab THREE TIMES A DAY NG 08/09/20 18:00 09/02/20 08:59 08/12/20 13:40 Docusate Sodium (Colace) 100 mg TWICE A DAY GT 08/12/20 09:00 09/11/20 08:59 08/12/20 09:52 Heparin Sodium (Porcine) (Heparin 5000 units/ml) 5,000 units EVERY 12 HOURS SUBQ 08/03/20 09:00 09/17/20 08:59 08/12/20 08:21 Hydralazine HCl (Apresoline) 25 mg Q6H PRN NG SBP above 160 08/11/20 22:30 11/05/20 00:29 Magnesium Hydroxide (Mom) 30 ml DAILYPRN PRN GT Constipation 08/12/20 09:00 09/11/20 08:59 Metoprolol Tartrate (Lopressor) 12.5 mg Q12HR NG 08/12/20 09:00 11/08/20 20:59 08/12/20 08:20 Morphine Sulfate (Morphine Sulfate) 1 mg Q4H PRN IVP Moderate Pain (Pain Scale 4-6) 08/09/20 18:30 08/16/20 18:29 Piperacillin Sod/ Tazobactam Sod 3.375 gm/Sodium Chloride 110 ml @ 27.5 mls/hr EVERY 8 HOURS IVPB 08/08/20 14:00 08/17/20 13:59 08/12/20 05:05 Tamsulosin HCl (Flomax) 0.4 mg BEDTIME ORAL 08/03/20 21:00 09/02/20 20:59 08/11/20 20:23 Vancomycin HCl (Vanco pharmacy to dose) 1 ea DAILY PRN MISC Per rx protocol 08/12/20 11:30 09/11/20 11:29 Vancomycin HCl 1 gm/Dextrose 275 ml @ 183.708 mls/hr Q24H IVPB 08/12/20 13:00 08/17/20 12:59 08/12/20 13:40 Assessment/Plan Assessment/Plan ASSESSMENT: chronic encephalopathy, dementia, diffuse infiltrates, elevated BNP hypertension, recurrent falls, and urinary tract infection, hypoxemia, probable aspiration pneumonia. PLAN care noted respiratory care as is oxygen d/w family as to poor prognosis and consider terminal care ON NRB oxygen repeat CXR and ABG noted palliative care recommended impression, plan, and exam edited and reviewed in detail care discussed with Eriberto Gilliland MD Aug 12, 2020 14:06
--- NOTE | 2020-08-12 15:53 | NUR ---
CASE MANAGEMENT:REVIEW 08/12/20 SI: PNA. UTI. AFIB RVR 97.7 93 23 164/72 97% ON NON REBREATHER 15L 100% FIO2 WBC+17.3 BUN+40 IS: IV VANCOMYCIN Q24 IV ZOSYN Q8HRS METOPROLOL NG Q6HRS HHN Q6HRS RTC HEPARIN SQ Q12 : SDU DCP: FROM [facility]: HAS NG TUBE
[2020-08-12 16:00] VITALS: BP 116/68
--- NOTE | 2020-08-12 18:53 | NUR ---
NURSE NOTES: Received report from Curt RN/ TaniaRN. Pt is sleeping in bed comfortably in semi-carlos's position. Pt responds when call by name. Pt open eyes spontaneously. On Non rebreather mask at 15L o2 sat - 95%, No signs of apparent distress. No facial grimacing noted. Pt has episode of AFIB RVR Dr. Herman is aware highest 170bpm. With Gtube intact, flushing and patent running osmolite 1.5 @20ml/hr, Pt is still on restaints for pulling of medical devices no skin breakdown noted, paplpable pulse noted. . Bed in lowest position. Call light within reach. Continue to plan of care.
--- NOTE | 2020-08-12 19:05 | NUR ---
NURSE HAND-OFF REPORT: Important Events on Shift: Sundeep KURTZ aware Patient Status: stable/guarded Diet: NGT Osmolite 1.5 @20ml/h Pending Orders: na Pending Results/Labs:na Pending MD notification:na Latest Vital Signs: Temperature 98.1 , Pulse 95 , B/P 116 /68 , Respiratory Rate 23 , O2 SAT 96 , Non-Rebreather, O2 Flow Rate 15.0 . Vital Sign Comment: stable EKG Rhythm: Sinus Rhythm Rhythm change?: William KURTZ Notified?: William Montoya MD Response: Message left await call Latest José Fall Score: 95 Fall Risk: High Risk Safety Measures: Call light Within Reach, Bed Alarm Zone 1, Side Rails Side Rails x3, Bed position Low and Locked. Fall Precautions: Yellow Socks Yellow Gown Door Sign Patient Fall Education Report given to BLANE Vega.
[2020-08-12 20:00] VITALS: BP 151/79
[2020-08-12] MEDS: Tamsulosin 0.4mg cap ORAL SCH (20:20)
--- NOTE | 2020-08-12 22:18 | NUR ---
NURSE NOTES: Spoke to Ruth- grand daughter regarding morphine not to give it. Will inform MD about family concerns.
--- NOTE | 2020-08-12 23:17 | Cardiology Progress Note ---
Subjective DATE OF SERVICE: Aug 12, 2020 Remains congested and SOB; still on bipap support. NPO due to aspiration risk; NGTube placed. Labile BP readings. ABG (08/11): 7.42/56/57 on VM Monitor: sinus/sinus tachy with rare paroxysmal AFib Granddtr wants to discuss possible palliative care; will try to reach her back. Objective Last 24 Hour Vital Signs Date Time Temp Pulse Resp B/P (MAP) Pulse Ox O2 Delivery O2 Flow Rate FiO2 08/12/20 20:20 101 151/79 08/12/20 20:00 100 08/12/20 20:00 Non-Rebreather 15.0 08/12/20 20:00 15.0 08/12/20 20:00 97.5 100 23 151/79 (103) 95 08/12/20 19:00 96 Non-Rebreather 15.0 100 08/12/20 16:00 98.1 92 23 116/68 (84) 96 08/12/20 16:00 Non-Rebreather 15.0 08/12/20 16:00 15.0 08/12/20 16:00 95 08/12/20 15:09 164/72 08/12/20 12:00 Non-Rebreather 15.0 08/12/20 12:00 97 08/12/20 12:00 15.0 08/12/20 12:00 97.7 93 23 164/72 (102) 97 08/12/20 08:41 98 Non-Rebreather 15.0 100 08/12/20 08:20 98 164/78 08/12/20 08:00 97.6 98 24 164/78 (106) 98 08/12/20 08:00 Non-Rebreather 15.0 08/12/20 08:00 15.0 08/12/20 08:00 100 08/12/20 04:00 98.0 98 22 146/77 (100) 99 08/12/20 04:00 73 08/12/20 04:00 Bi-pap 08/12/20 04:00 15.0 08/12/20 03:20 15.0 100 08/12/20 00:00 90 08/12/20 00:00 Bi-pap 08/12/20 00:00 97.7 89 21 141/76 (97) 97 ROS: unchanged from my evaluation of 08/02/20 HEENT: normal ENT inspection RHYTHM: NSR, PACs LUNGS: bilateral rhonchi CARDIAC: normal S1 and S2, irregularly irregular, systolic murmur - 1/6 systolic murmurat apex, rapid rate ABDOMEN: normal bowel sounds, non tender, soft, no organomegaly EXTREMITIES: normal range of motion, trace edema Laboratory Tests Test 08/12/20 03:20 White Blood Count 17.3 K/UL (4.8-10.8) H Red Blood Count 4.04 M/UL (4.70-6.10) L Hemoglobin 12.6 G/DL (14.2-18.0) L Hematocrit 40.3 % (42.0-52.0) L Mean Corpuscular Volume 100 FL (80-99) H Mean Corpuscular Hemoglobin 31.3 PG (27.0-31.0) H Mean Corpuscular Hemoglobin Concent 31.4 G/DL (32.0-36.0) L Red Cell Distribution Width 12.7 % (11.6-14.8) Platelet Count 211 K/UL (150-450) Mean Platelet Volume 7.9 FL (6.5-10.1) Neutrophils (%) (Auto) % (45.0-75.0) Lymphocytes (%) (Auto) % (20.0-45.0) Monocytes (%) (Auto) % (1.0-10.0) Eosinophils (%) (Auto) % (0.0-3.0) Basophils (%) (Auto) % (0.0-2.0) Differential Total Cells Counted 100 Neutrophils % (Manual) 96 % (45-75) H Lymphocytes % (Manual) 1 % (20-45) L Monocytes % (Manual) 3 % (1-10) Eosinophils % (Manual) 0 % (0-3) Basophils % (Manual) 0 % (0-2) Band Neutrophils 0 % (0-8) Platelet Estimate Adequate Platelet Morphology Normal Sodium Level 144 MMOL/L (136-145) Potassium Level 3.5 MMOL/L (3.5-5.1) Chloride Level 105 MMOL/L (98-107) Carbon Dioxide Level 40 MMOL/L (21-32) H Anion Gap -2 mmol/L (5-15) L Blood Urea Nitrogen 41 mg/dL (7-18) H Creatinine 0.9 MG/DL (0.55-1.30) Estimat Glomerular Filtration Rate > 60 mL/min (>60) Glucose Level 153 MG/DL (74-106) H Calcium Level 8.6 MG/DL (8.5-10.1) Total Bilirubin 0.4 MG/DL (0.2-1.0) Aspartate Amino Transf (AST/SGOT) 25 U/L (15-37) Alanine Aminotransferase (ALT/SGPT) 9 U/L (12-78) L Alkaline Phosphatase 89 U/L (46-116) Total Protein 6.0 G/DL (6.4-8.2) L Albumin 1.5 G/DL (3.4-5.0) L Globulin 4.5 g/dL Albumin/Globulin Ratio 0.3 (1.0-2.7) L Assessment/Plan Assessment/Plan Paroxysmal atrial fibrillation with RVR Acute myocardial ischemia with elevated troponin Aspiration risk Sepsis Healthcare acquired PNA Complicated UTI with indwelling catheter Hyponatremia Severe protein calorie malnutrition Acute myocardial ischemia Respiratory failure with hypoxia persisting Hypokalemia Leukocytosis improving Ac/chronic diastolic CHF CRITICAL & GUARDED Empiric antibiotics Bipap support resumed NGTube feedings DVT prophylaxis Periodic diuresis based on clinical parameters. Potassium replacement as needed. Continue amiodarone Advance beta katya (oral dose now) and titrate anti-HTN regimen. Sarkis Herman MD Aug 12, 2020 23:17
[2020-08-13] VITALS: BP 117/68
--- NOTE | 2020-08-13 | NUR ---
NURSE NOTES: Pt is seen in bed, no signs of respiratory distress noted.Sponge bath given, Noted 1x BM in moderate amount. Continue to plan of care.
--- NOTE | 2020-08-13 02:49 | NUR ---
NURSE NOTES: Noted pt upon rounds to be tachypneic and tachycardic,o2 sat- 88-89%. Accesory muscles used for breathing. Called RT to put pt on BIPAP 31/12 as ordered. O2 sat now at 97% after BIPAP application. Will continue to monitor pt closely.
[2020-08-13 04:00] VITALS: BP 119/59
--- NOTE | 2020-08-13 04:24 | NUR ---
NURSE NOTES: Seen pt in high carlos's position. Pt is on BIPAP o2 sat-97%. Continue to plan of care.
[2020-08-13] MEDS: Piperacillin/Tazobactam 3.375 GM in NS 110 ML IVPB SCH ×3 (05:09→21:52)
--- NOTE | 2020-08-13 07:02 | NUR ---
NURSE HAND-OFF REPORT: Important Events on Shift: Pt put in BIPAP desat 88-89%. Now o2 sat- 97%. Pt has PRN Bipap Patient Status: Guarding Diet: HELD GTF Pending Orders: NOne Pending Results/Labs: none Pending notification: None Latest Vital Signs: Temperature 96.8 , Pulse 91 , B/P 119 /59 , Respiratory Rate 20 , O2 SAT 100 , Non-Rebreather, O2 Flow Rate 15.0 . Vital Sign Comment: STAC highest 108 EKG Rhythm: Sinus Tachycardia Rhythm change?: N Notified?: William Montoya MD Response: Message left await call Latest José Fall Score: 95 Fall Risk: High Risk Safety Measures: Call light Within Reach, Bed Alarm Zone 1, Side Rails Side Rails x3, Bed position Low and Locked. Fall Precautions: Yellow Socks Yellow Gown Door Sign Patient Fall Education Report given to [BLANE Medrano].
--- NOTE | 2020-08-13 07:11 | NUR ---
NURSE NOTES: Received report from BLANE Vega. Patient in bed resting, no active s/s cardiac distress noticed at this time. Patient SOB, on BIPAP Fio2 100%, fatigued. Soft wrist restraints are released, Endorsed around 0300 desat. back to BIPAP. NPO at this time due to BIPAP, NGT on left nares, Osmolite 1.5 @ 20 on hold. Bed in lowest position, side rails upx3, call light within reach, bed alarm on, Will continue to monitor.
--- NOTE | 2020-08-13 07:23 | NUR ---
NURSE NOTES: Paged Dr. Gilmore regarding patient lethargic, low BP 101/55 HR 85 on BIPAP, no new order received at this time, Will continue to monitor. BS checked 99.
--- NOTE | 2020-08-13 07:25 | NUR ---
NURSE NOTES: Per Dr. Gilmore, G lab, order noted, entered.
[2020-08-13 08:00] VITALS: BP 101/51
[2020-08-13] MEDS: Levodopa/Carbidopa 25/100 tab NG SCH ×3 (08:07→17:13)
[2020-08-13] MEDS: Docusate 100mg/10ml Liq GT SCH ×2 (08:07→17:13)
[2020-08-13] MEDS: Amiodarone 200mg tab NG SCH ×2 (08:07→20:08)
[2020-08-13] MEDS: Heparin 5000 units/ml inj SUBQ SCH ×2 (08:08→20:11)
--- NOTE | 2020-08-13 08:16 | General Progress Note ---
Subjective ROS Limited/Unobtainable: No Constitutional: Reports: malaise, weakness HEENT: Reports: no symptoms Cardiovascular: Reports: no symptoms Respiratory: Reports: shortness of breath Gastrointestinal/Abdominal: Reports: no symptoms Genitourinary: Reports: no symptoms Neurologic/Psychiatric: Reports: pre-existing deficit Endocrine: Reports: no symptoms Hematologic/Lymphatic: Reports: no symptoms Allergies: Coded Allergies: No Known Allergies (Unverified , 08/02/20) All Systems: reviewed and negative except above Subjective was noted to be more lethargic and sleepy. placed back on bipap. tolerating feeds. no fevers. opens eyes Objective Last 24 Hour Vital Signs Date Time Temp Pulse Resp B/P (MAP) Pulse Ox O2 Delivery O2 Flow Rate FiO2 08/13/20 08:07 96 100/51 08/13/20 08:00 98.6 96 24 101/51 (68) 100 08/13/20 07:49 95 44 99 100 08/13/20 07:49 99 Bi-Pap 100 08/13/20 04:00 Non-Rebreather 15.0 08/13/20 04:00 106 08/13/20 04:00 100 08/13/20 04:00 96.8 91 20 119/59 (79) 100 08/13/20 02:31 106 45 98 100 08/13/20 00:00 Non-Rebreather 15.0 08/13/20 00:00 97.0 104 22 117/68 (84) 94 08/13/20 00:00 107 08/12/20 20:20 101 151/79 08/12/20 20:00 100 08/12/20 20:00 Non-Rebreather 15.0 08/12/20 20:00 15.0 08/12/20 20:00 97.5 100 23 151/79 (103) 95 08/12/20 19:00 96 Non-Rebreather 15.0 100 08/12/20 16:00 98.1 92 23 116/68 (84) 96 08/12/20 16:00 Non-Rebreather 15.0 08/12/20 16:00 15.0 08/12/20 16:00 95 08/12/20 15:09 164/72 08/12/20 12:00 Non-Rebreather 15.0 08/12/20 12:00 97 08/12/20 12:00 15.0 08/12/20 12:00 97.7 93 23 164/72 (102) 97 08/12/20 08:41 98 Non-Rebreather 15.0 100 08/12/20 08:20 98 164/78 Intake and Output 08/12/20 08/13/20 19:00 07:00 Intake Total 715.562 ml 377.5 ml Output Total 300 ml 360 ml Balance 415.562 ml 17.5 ml Free Water 90 ml 100 ml IV Total 385.562 ml 137.5 ml Tube Feeding 240 ml 140 ml Output Urine Total 300 ml 360 ml # Bowel Movements 3 Laboratory Tests 08/13/20 07:19: POC Whole Blood Glucose 99 08/13/20 07:33: Arterial Blood pH 7.444, Arterial Blood Partial Pressure CO2 55.2*H, Arterial Blood Partial Pressure O2 105.7H, Arterial Blood HCO3 37.0H, Arterial Blood Oxygen Saturation 97.6, Arterial Blood Base Excess 11.1*H, Emile Test Positive Height (Feet): 5 Height (Inches): 5.00 Weight (Pounds): 99 Objective General Appearance: WD/WN, confused, thin. on bipap EENT: normal ENT inspection Neck: non-tender, normal alignment, supple Cardiovascular: normal rate, regular rhythm Respiratory/Chest: chest wall non-tender, lungs clear, normal breath sounds, no respiratory distress, no accessory muscle use Abdomen: normal bowel sounds, non tender, soft, no organomegaly Edema: no edema noted Arm (L), no edema noted Arm (R) Assessment/Plan Problem List: (1) Pneumonia ICD Codes: J18.9 - Pneumonia, unspecified organism SNOMED: 444821301 (2) Hypoxia ICD Codes: R09.02 - Hypoxemia SNOMED: 973709091 (3) AMS (altered mental status) ICD Codes: R41.82 - Altered mental status, unspecified SNOMED: 883659422 (4) UTI (urinary tract infection) ICD Codes: N39.0 - Urinary tract infection, site not specified SNOMED: 95756134 (5) Sepsis ICD Codes: A41.9 - Sepsis, unspecified organism SNOMED: 98806263 Status: stable, not improved Assessment/Plan: bipap as needed rate control per cards monitor abg and cxr iv abx per speech rx tube feeds dvt/stress ulcer prophylaxis monitor lytes ngt feeds bowel regime has advanced directive for dnr Chavez Gilmore MD Aug 13, 2020 08:16
--- NOTE | 2020-08-13 08:54 | Pulmonology Progress Note ---
Subjective ROS Limited/Unobtainable: Yes Constitutional: Denies: fever Allergies: Coded Allergies: No Known Allergies (Unverified , 08/02/20) All Systems: reviewed and negative except above Subjective care noted on oxygen NRB--> back on BIPAP diffuse infiltrates Objective Last 24 Hour Vital Signs Date Time Temp Pulse Resp B/P (MAP) Pulse Ox O2 Delivery O2 Flow Rate FiO2 08/13/20 08:07 96 100/51 08/13/20 08:00 80 08/13/20 08:00 Bi-pap 08/13/20 08:00 98.6 96 24 101/51 (68) 100 08/13/20 07:49 95 44 99 100 08/13/20 07:49 99 Bi-Pap 100 08/13/20 04:00 Non-Rebreather 15.0 08/13/20 04:00 106 08/13/20 04:00 100 08/13/20 04:00 96.8 91 20 119/59 (79) 100 08/13/20 02:31 106 45 98 100 08/13/20 00:00 Non-Rebreather 15.0 08/13/20 00:00 97.0 104 22 117/68 (84) 94 08/13/20 00:00 107 08/12/20 20:20 101 151/79 08/12/20 20:00 100 08/12/20 20:00 Non-Rebreather 15.0 08/12/20 20:00 15.0 08/12/20 20:00 97.5 100 23 151/79 (103) 95 08/12/20 19:00 96 Non-Rebreather 15.0 100 08/12/20 16:00 98.1 92 23 116/68 (84) 96 08/12/20 16:00 Non-Rebreather 15.0 08/12/20 16:00 15.0 08/12/20 16:00 95 08/12/20 15:09 164/72 08/12/20 12:00 Non-Rebreather 15.0 08/12/20 12:00 97 08/12/20 12:00 15.0 08/12/20 12:00 97.7 93 23 164/72 (102) 97 Intake and Output 08/12/20 08/13/20 19:00 07:00 Intake Total 715.562 ml 377.5 ml Output Total 300 ml 360 ml Balance 415.562 ml 17.5 ml Free Water 90 ml 100 ml IV Total 385.562 ml 137.5 ml Tube Feeding 240 ml 140 ml Output Urine Total 300 ml 360 ml # Bowel Movements 3 Objective WDWN NAD reduced breath sounds bilaterally with scattered rhonchi [id number] NABS nontender no CCE nonfocal on BIPAP poorly responsive Laboratory Tests 08/13/20 07:19: POC Whole Blood Glucose 99 08/13/20 07:33: Arterial Blood pH 7.444, Arterial Blood Partial Pressure CO2 55.2*H, Arterial Blood Partial Pressure O2 105.7H, Arterial Blood HCO3 37.0H, Arterial Blood Oxygen Saturation 97.6, Arterial Blood Base Excess 11.1*H, Emile Test Positive Current Medications Medications (Trade) Dose Ordered Sig/Javon Route PRN Reason Start Time Stop Time Status Last Admin Dose Admin Acetaminophen (Tylenol) 650 mg Q4H PRN ORAL Mild Pain (Pain Scale 1-3) 08/03/20 01:15 09/02/20 01:14 08/12/20 21:42 Acetaminophen (Tylenol) 650 mg Q4H PRN RECTAL Mild Pain (Pain Scale 1-3) 08/03/20 01:15 09/02/20 01:14 08/04/20 18:32 Amiodarone HCl (Cordarone) 200 mg EVERY 12 HOURS NG 08/09/20 21:00 11/03/20 13:14 08/13/20 08:07 Carbidopa/Levodopa (Sinemet 25/100) 1 tab THREE TIMES A DAY NG 08/09/20 18:00 09/02/20 08:59 08/13/20 08:07 Docusate Sodium (Colace) 100 mg TWICE A DAY GT 08/12/20 09:00 09/11/20 08:59 08/12/20 17:47 Heparin Sodium (Porcine) (Heparin 5000 units/ml) 5,000 units EVERY 12 HOURS SUBQ 08/03/20 09:00 09/17/20 08:59 08/13/20 08:08 Hydralazine HCl (Apresoline) 25 mg Q6H PRN NG SBP above 160 08/11/20 22:30 11/05/20 00:29 08/12/20 15:09 Magnesium Hydroxide (Mom) 30 ml DAILYPRN PRN GT Constipation 08/12/20 09:00 09/11/20 08:59 Metoprolol Tartrate (Lopressor) 25 mg Q12HR NG 08/13/20 09:00 11/11/20 08:59 Morphine Sulfate (Morphine Sulfate) 1 mg Q4H PRN IVP Moderate Pain (Pain Scale 4-6) 08/09/20 18:30 08/16/20 18:29 Piperacillin Sod/ Tazobactam Sod 3.375 gm/Sodium Chloride 110 ml @ 27.5 mls/hr EVERY 8 HOURS IVPB 08/08/20 14:00 08/17/20 13:59 08/13/20 05:09 Tamsulosin HCl (Flomax) 0.4 mg BEDTIME ORAL 08/03/20 21:00 09/02/20 20:59 08/12/20 20:20 Vancomycin HCl (Vanco pharmacy to dose) 1 ea DAILY PRN MISC Per rx protocol 08/12/20 11:30 09/11/20 11:29 Vancomycin HCl 1 gm/Dextrose 275 ml @ 183.708 mls/hr Q24H IVPB 08/12/20 13:00 08/17/20 12:59 08/12/20 13:40 Assessment/Plan Assessment/Plan ASSESSMENT: chronic encephalopathy, dementia, diffuse infiltrates, elevated BNP hypertension, recurrent falls, and urinary tract infection, hypoxemia, probable aspiration pneumonia. PLAN care noted respiratory care as is oxygen and BIPAP d/w family as to poor prognosis and consider terminal care on high oxygen needs repeat CXR and ABG noted palliative care recommended doubt any chance of recovery impression, plan, and exam edited and reviewed in detail care discussed with Eriberto Gilliland MD Aug 13, 2020 08:54
[2020-08-13 09:13] LABS: HEMATOCRIT 35.3 % (42.0-52.0); HEMOGLOBIN 11.5 G/DL (14.2-18.0); MEAN CORPUSCULAR VOLUME 95 FL (80-99); PLATELET COUNT 188 K/UL (150-450); RED CELL DISTRIBUTION WIDTH 12.8 % (11.6-14.8); WHITE BLOOD COUNT 20.7 K/UL (4.8-10.8)
[2020-08-13 09:28] LABS: ANION GAP -1 mmol/L (5-15); BLOOD UREA NITROGEN 41 mg/dL (7-18); CALCIUM 8.1 MG/DL (8.5-10.1); CARBON DIOXIDE 38 MMOL/L (21-32); CHLORIDE 106 MMOL/L (98-107); POTASSIUM 3.8 MMOL/L (3.5-5.1); SODIUM 143 MMOL/L (136-145)
[2020-08-13 12:00] VITALS: BP 146/76
--- NOTE | 2020-08-13 12:49 | Infectious Diseases Prog Note ---
Assessment/Plan Assessment/Plan A: 1. Right-sided pneumonia. 2. COVID-19 test is negative. 3. Urinary tract infection. 4. Hypertension. 5. Dementia. 6. Respiratory failure on BIPAP PLAN: 1. continue IV vancomycin & Zosyn. 2. Repeat CXR 3. DNR status Subjective ROS Limited/Unobtainable: Yes Neurologic: Reports: confusion, other - on restraint Allergies: Coded Allergies: No Known Allergies (Unverified , 08/02/20) Objective Last 24 Hour Vital Signs Date Time Temp Pulse Resp B/P (MAP) Pulse Ox O2 Delivery O2 Flow Rate FiO2 08/13/20 12:00 Bi-pap 08/13/20 12:00 98.2 108 22 146/76 (99) 96 08/13/20 12:00 80 08/13/20 08:07 96 100/51 08/13/20 08:00 80 08/13/20 08:00 94 08/13/20 08:00 Bi-pap 08/13/20 08:00 98.6 96 24 101/51 (68) 100 08/13/20 07:49 95 44 99 100 08/13/20 07:49 99 Bi-Pap 100 08/13/20 04:00 Non-Rebreather 15.0 08/13/20 04:00 106 08/13/20 04:00 100 08/13/20 04:00 96.8 91 20 119/59 (79) 100 08/13/20 02:31 106 45 98 100 08/13/20 00:00 Non-Rebreather 15.0 08/13/20 00:00 97.0 104 22 117/68 (84) 94 08/13/20 00:00 107 08/12/20 20:20 101 151/79 08/12/20 20:00 100 08/12/20 20:00 Non-Rebreather 15.0 08/12/20 20:00 15.0 08/12/20 20:00 97.5 100 23 151/79 (103) 95 08/12/20 19:00 96 Non-Rebreather 15.0 100 08/12/20 16:00 98.1 92 23 116/68 (84) 96 08/12/20 16:00 Non-Rebreather 15.0 08/12/20 16:00 15.0 08/12/20 16:00 95 08/12/20 15:09 164/72 Height (Feet): 5 Height (Inches): 5.00 Weight (Pounds): 99 General Appearance: cachetic HEENT: mucous membranes moist, other Respiratory/Chest: decreased breath sounds, other - on BIPAP Cardiovascular: tachycardia Abdomen: soft, non tender, other - NG tube Extremities: no edema Neurologic/Psychiatric: unresponsiveness, other - lethargic Musculoskeletal: atrophy Laboratory Tests Test 08/13/20 07:19 08/13/20 07:33 08/13/20 09:00 POC Whole Blood Glucose 99 MG/DL (74-106) Arterial Blood pH 7.444 (7.350-7.450) Arterial Blood Partial Pressure CO2 55.2 mmHg (35.0-45.0) *H Arterial Blood Partial Pressure O2 105.7 mmHg (75.0-100.0) H Arterial Blood HCO3 37.0 mmol/L (22.0-26.0) H Arterial Blood Oxygen Saturation 97.6 % (95-100) Arterial Blood Base Excess 11.1 (-2-2) *H Emile Test Positive White Blood Count 20.7 K/UL (4.8-10.8) H Red Blood Count 3.70 M/UL (4.70-6.10) L Hemoglobin 11.5 G/DL (14.2-18.0) L Hematocrit 35.3 % (42.0-52.0) L Mean Corpuscular Volume 95 FL (80-99) Mean Corpuscular Hemoglobin 31.0 PG (27.0-31.0) Mean Corpuscular Hemoglobin Concent 32.5 G/DL (32.0-36.0) Red Cell Distribution Width 12.8 % (11.6-14.8) Platelet Count 188 K/UL (150-450) Mean Platelet Volume 8.4 FL (6.5-10.1) Neutrophils (%) (Auto) % (45.0-75.0) Lymphocytes (%) (Auto) % (20.0-45.0) Monocytes (%) (Auto) % (1.0-10.0) Eosinophils (%) (Auto) % (0.0-3.0) Basophils (%) (Auto) % (0.0-2.0) Differential Total Cells Counted 100 Neutrophils % (Manual) 95 % (45-75) H Lymphocytes % (Manual) 2 % (20-45) L Monocytes % (Manual) 2 % (1-10) Eosinophils % (Manual) 1 % (0-3) Basophils % (Manual) 0 % (0-2) Band Neutrophils 0 % (0-8) Platelet Estimate Adequate Platelet Morphology Normal Hypochromasia 1+ Sodium Level 143 MMOL/L (136-145) Potassium Level 3.8 MMOL/L (3.5-5.1) Chloride Level 106 MMOL/L (98-107) Carbon Dioxide Level 38 MMOL/L (21-32) H Anion Gap -1 mmol/L (5-15) L Blood Urea Nitrogen 41 mg/dL (7-18) H Creatinine 1.0 MG/DL (0.55-1.30) Estimat Glomerular Filtration Rate > 60 mL/min (>60) Glucose Level 133 MG/DL (74-106) H Calcium Level 8.1 MG/DL (8.5-10.1) L Current Medications Medications (Trade) Dose Ordered Sig/Javon Route PRN Reason Start Time Stop Time Status Last Admin Dose Admin Acetaminophen (Tylenol) 650 mg Q4H PRN ORAL Mild Pain (Pain Scale 1-3) 08/03/20 01:15 09/02/20 01:14 08/12/20 21:42 Acetaminophen (Tylenol) 650 mg Q4H PRN RECTAL Mild Pain (Pain Scale 1-3) 08/03/20 01:15 09/02/20 01:14 08/04/20 18:32 Amiodarone HCl (Cordarone) 200 mg EVERY 12 HOURS NG 08/09/20 21:00 11/03/20 13:14 08/13/20 08:07 Carbidopa/Levodopa (Sinemet 25/100) 1 tab THREE TIMES A DAY NG 08/09/20 18:00 09/02/20 08:59 08/13/20 08:07 Docusate Sodium (Colace) 100 mg TWICE A DAY GT 08/12/20 09:00 09/11/20 08:59 08/12/20 17:47 Heparin Sodium (Porcine) (Heparin 5000 units/ml) 5,000 units EVERY 12 HOURS SUBQ 08/03/20 09:00 09/17/20 08:59 08/13/20 08:08 Hydralazine HCl (Apresoline) 25 mg Q6H PRN NG SBP above 160 08/11/20 22:30 11/05/20 00:29 08/12/20 15:09 Magnesium Hydroxide (Mom) 30 ml DAILYPRN PRN GT Constipation 08/12/20 09:00 09/11/20 08:59 Metoprolol Tartrate (Lopressor) 25 mg Q12HR NG 08/13/20 09:00 11/11/20 08:59 Morphine Sulfate (Morphine Sulfate) 1 mg Q4H PRN IVP Moderate Pain (Pain Scale 4-6) 08/09/20 18:30 08/16/20 18:29 Piperacillin Sod/ Tazobactam Sod 3.375 gm/Sodium Chloride 110 ml @ 27.5 mls/hr EVERY 8 HOURS IVPB 08/08/20 14:00 08/17/20 13:59 08/13/20 05:09 Tamsulosin HCl (Flomax) 0.4 mg BEDTIME ORAL 08/03/20 21:00 09/02/20 20:59 08/12/20 20:20 Vancomycin HCl (Vanco pharmacy to dose) 1 ea DAILY PRN MISC Per rx protocol 08/12/20 11:30 09/11/20 11:29 Vancomycin HCl 1 gm/Dextrose 275 ml @ 183.708 mls/hr Q24H IVPB 08/12/20 13:00 08/17/20 12:59 08/12/20 13:40 Baldev Luo MD Aug 13, 2020 12:49
--- NOTE | 2020-08-13 13:19 | Diagnostic Imaging Report ---
EXAM: XR Chest, 1 View CLINICAL HISTORY: SOB TECHNIQUE: Frontal view of the chest. COMPARISON: 08/10/2020. FINDINGS: Lungs: Redemonstrated are bilateral diffuse airspace opacity consistent with pneumonia. Pleural space: Mild bilateral pleural effusions, larger on the left compared to right. No pneumothorax. Heart: Unremarkable. No cardiomegaly. Mediastinum: Unremarkable. Bones/joints: Osteopenia along with degenerative disease of the shoulders. Tubes, lines and devices: Nasogastric tube has the tip at the level of the gastric body. IMPRESSION: 1. Nasogastric tube as described. 2. Bilateral diffuse pneumonia along with pleural effusions.
[2020-08-13] MEDS: Vancomycin 1gm/D5W 275ml IVPB SCH ×2 (13:33)
[2020-08-13 16:00] VITALS: BP 126/67
--- NOTE | 2020-08-13 16:29 | NUR ---
NURSE NOTES: Per Dr. Gilmore, IVF D5NS @ 60ml/h. Order noted, entered, carried out.
--- NOTE | 2020-08-13 16:30 | NUR ---
NURSE NOTES: Dr. Gilmore made aware patient desat on Fio2 80%, back on BIPAP Fio2 100%, per MD, another chest x-ray. Order noted, entered, carried out. Patient now o2 sat 100%.
--- NOTE | 2020-08-13 17:09 | Diagnostic Imaging Report ---
EXAM: XR Chest, 1 View CLINICAL HISTORY: SOB TECHNIQUE: Frontal view of the chest. COMPARISON: 08/13/2020. FINDINGS: Lungs: Bilateral diffuse pneumonia, stable. Pleural space: Left-sided pleural effusion. No pneumothorax. Heart: Unremarkable. No cardiomegaly. Mediastinum: Unremarkable. Bones/joints: Diffuse osteopenia with degenerative disease of the shoulders and spine. Tubes, lines and devices: Nasogastric tube with the tip below the diaphragm but not included in the [id number]. IMPRESSION: 1. Nasogastric tube as described. 2. Bilateral diffuse pneumonia, stable study in the interval.
[2020-08-13] MEDS: D5NS 1,000 ML IV SCH (17:13)
--- NOTE | 2020-08-13 17:28 | NUR ---
NURSE NOTES: Dr. Gilmore made aware of result of chest x-ray, no new order received at this time. Will continue to monitor.
--- NOTE | 2020-08-13 19:20 | NUR ---
NURSE NOTES Received report from BLANE Elias. Pt asleep in bed, responds to deep tactile stimulation, noticeable use of accessory muscles of respiration, tachypneic at 25 bpm, afebrile. On Bipap 15/4 fiO2 100% saturating at 100%. With left NGT intact, flushed without any sediments. Feeding on hold because pt's on bipap. MD aware. With left hand 24g and right FA 22g IV lines intact, patent and asymptomatic on D51/2 NS at 60cc/hr. With FC to urine bag patent, draining well with ana lilia yellow urine. Needs were attended. Call light within reach. Bed rails are up and wheels are locked. Continue plan of care
--- NOTE | 2020-08-13 19:33 | NUR ---
NURSE HAND-OFF REPORT: Important Events on Shift: Desat. on Fio2 80%, now on Fio2 100%. Patient Status: guarded Diet: on hold due to BIPAP Pending Orders: na Pending Results/Labs:na Pending notification:na Latest Vital Signs: Temperature 97.9 , Pulse 95 , B/P 126 /67 , Respiratory Rate 20 , O2 SAT 97 , Bi-pap, O2 Flow Rate 15.0 . Vital Sign Comment: stable EKG Rhythm: Sinus Rhythm Rhythm change?: N Notified?: William Montoya MD Response: Message left await call Latest José Fall Score: 95 Fall Risk: High Risk Safety Measures: Call light Within Reach, Bed Alarm Zone 1, Side Rails Side Rails x3, Bed position Low and Locked. Fall Precautions: Yellow Socks Yellow Gown Door Sign Patient Fall Education Report given to BLANE BERTRAND.
[2020-08-13 20:00] VITALS: BP 111/59
[2020-08-13] MEDS: Tamsulosin 0.4mg cap ORAL SCH (20:08)
[2020-08-13] MEDS ORDERED: NS 275ml ONE (21:09)
[2020-08-13] MEDS ORDERED: NS 500ML ONE (21:25)
[2020-08-13] MEDS ORDERED: Tubing IV Secondary IV ONE (21:25)
--- NOTE | 2020-08-13 22:41 | Cardiology Progress Note ---
Subjective DATE OF SERVICE: Aug 13, 2020 Remains congested and SOB. Was lethargic until placed back on bipap support. NPO due to aspiration risk; NGTube in place. BP readings now stable. ABG (08/13): 7.44/55/105 on Monitor: sinus/sinus tachy with rare paroxysmal AFib dtr wants to discuss possible palliative care; will try to reach her back. Objective Last 24 Hour Vital Signs Date Time Temp Pulse Resp B/P (MAP) Pulse Ox O2 Delivery O2 Flow Rate FiO2 08/13/20 20:08 84 111/59 08/13/20 20:00 Bi-pap 08/13/20 20:00 100 08/13/20 20:00 98.1 90 25 111/59 (76) 97 08/13/20 20:00 91 08/13/20 19:34 88 30 100 100 08/13/20 19:33 100 Bi-Pap 100 08/13/20 16:00 97.9 84 20 126/67 (86) 97 08/13/20 16:00 100 08/13/20 16:00 95 08/13/20 16:00 Bi-pap 08/13/20 15:11 101 19 98 100 08/13/20 12:00 Bi-pap 08/13/20 12:00 98.2 108 22 146/76 (99) 96 08/13/20 12:00 116 08/13/20 12:00 80 08/13/20 11:17 115 33 97 100 08/13/20 08:07 96 100/51 08/13/20 08:00 80 08/13/20 08:00 94 08/13/20 08:00 Bi-pap 08/13/20 08:00 98.6 96 24 101/51 (68) 100 08/13/20 07:49 95 44 99 100 08/13/20 07:49 99 Bi-Pap 100 08/13/20 04:00 Non-Rebreather 15.0 08/13/20 04:00 106 08/13/20 04:00 100 08/13/20 04:00 96.8 91 20 119/59 (79) 100 08/13/20 02:31 106 45 98 100 08/13/20 00:00 Non-Rebreather 15.0 08/13/20 00:00 97.0 104 22 117/68 (84) 94 08/13/20 00:00 107 ROS: unchanged from my evaluation of 08/02/20 HEENT: normal ENT inspection RHYTHM: NSR, PACs LUNGS: bilateral rhonchi CARDIAC: normal S1 and S2, irregularly irregular, systolic murmur - 1/6 systolic murmurat apex, rapid rate ABDOMEN: normal bowel sounds, non tender, soft, no organomegaly EXTREMITIES: normal range of motion, trace edema Laboratory Tests Test 08/13/20 07:19 08/13/20 07:33 08/13/20 09:00 POC Whole Blood Glucose 99 MG/DL (74-106) Arterial Blood pH 7.444 (7.350-7.450) Arterial Blood Partial Pressure CO2 55.2 mmHg (35.0-45.0) *H Arterial Blood Partial Pressure O2 105.7 mmHg (75.0-100.0) H Arterial Blood HCO3 37.0 mmol/L (22.0-26.0) H Arterial Blood Oxygen Saturation 97.6 % (95-100) Arterial Blood Base Excess 11.1 (-2-2) *H Emile Test Positive White Blood Count 20.7 K/UL (4.8-10.8) H Red Blood Count 3.70 M/UL (4.70-6.10) L Hemoglobin 11.5 G/DL (14.2-18.0) L Hematocrit 35.3 % (42.0-52.0) L Mean Corpuscular Volume 95 FL (80-99) Mean Corpuscular Hemoglobin 31.0 PG (27.0-31.0) Mean Corpuscular Hemoglobin Concent 32.5 G/DL (32.0-36.0) Red Cell Distribution Width 12.8 % (11.6-14.8) Platelet Count 188 K/UL (150-450) Mean Platelet Volume 8.4 FL (6.5-10.1) Neutrophils (%) (Auto) % (45.0-75.0) Lymphocytes (%) (Auto) % (20.0-45.0) Monocytes (%) (Auto) % (1.0-10.0) Eosinophils (%) (Auto) % (0.0-3.0) Basophils (%) (Auto) % (0.0-2.0) Differential Total Cells Counted 100 Neutrophils % (Manual) 95 % (45-75) H Lymphocytes % (Manual) 2 % (20-45) L Monocytes % (Manual) 2 % (1-10) Eosinophils % (Manual) 1 % (0-3) Basophils % (Manual) 0 % (0-2) Band Neutrophils 0 % (0-8) Platelet Estimate Adequate Platelet Morphology Normal Hypochromasia 1+ Sodium Level 143 MMOL/L (136-145) Potassium Level 3.8 MMOL/L (3.5-5.1) Chloride Level 106 MMOL/L (98-107) Carbon Dioxide Level 38 MMOL/L (21-32) H Anion Gap -1 mmol/L (5-15) L Blood Urea Nitrogen 41 mg/dL (7-18) H Creatinine 1.0 MG/DL (0.55-1.30) Estimat Glomerular Filtration Rate > 60 mL/min (>60) Glucose Level 133 MG/DL (74-106) H Calcium Level 8.1 MG/DL (8.5-10.1) L Assessment/Plan Assessment/Plan Paroxysmal atrial fibrillation with RVR Acute myocardial ischemia with elevated troponin Aspiration risk Sepsis Healthcare acquired PNA Complicated UTI with indwelling catheter Hyponatremia Severe protein calorie malnutrition Acute myocardial ischemia Respiratory failure with hypoxia Hypokalemia Leukocytosis improving Ac/chronic diastolic CHF CRITICAL & GUARDED Empiric antibiotics Bipap support resumed NGTube feedings DVT prophylaxis Periodic diuresis based on clinical parameters. Potassium replacement as needed. Continue amiodarone Titrate anti-HTN regimen, including beta katya. Sarkis Herman MD Aug 13, 2020 22:41
[2020-08-14] VITALS (11 sets, daily range): BP systolic 92–135; BP diastolic 44–75
[2020-08-14 05:08] LABS: HEMATOCRIT 36.1 % (42.0-52.0); HEMOGLOBIN 11.8 G/DL (14.2-18.0); MEAN CORPUSCULAR VOLUME 96 FL (80-99); PLATELET COUNT 173 K/UL (150-450); RED BLOOD COUNT 3.77 M/UL (4.70-6.10); RED CELL DISTRIBUTION WIDTH 13.7 % (11.6-14.8); WHITE BLOOD COUNT 18.2 K/UL (4.8-10.8)
[2020-08-14 05:36] LABS: ALANINE AMINOTRANSFERASE < 6 U/L (12-78); ALBUMIN 1.1 G/DL (3.4-5.0); ALBUMIN/GLOBULIN RATIO 0.3 (1.0-2.7); ALKALINE PHOSPHATASE 60 U/L (46-116); ANION GAP -1 mmol/L (5-15); ASPARTATE AMINO TRANSFERASE 17 U/L (15-37); BILIRUBIN,TOTAL 0.3 MG/DL (0.2-1.0); BLOOD UREA NITROGEN 41 mg/dL (7-18); CARBON DIOXIDE 39 MMOL/L (21-32); CHLORIDE 106 MMOL/L (98-107); CREATININE 0.9 MG/DL (0.55-1.30); POTASSIUM 3.8 MMOL/L (3.5-5.1); SODIUM 144 MMOL/L (136-145)
[2020-08-14] MEDS: Piperacillin/Tazobactam 3.375 GM in NS 110 ML IVPB SCH ×3 (06:40→21:19)
--- NOTE | 2020-08-14 06:42 | NUR ---
NURSE NOTES: Pt was able to remove bipap, remove IV line and NGT. Pt's o2 saturation went back up to 95% after applying bipap and stabilize it. iv site was covered with dry dressing. scant bleeding noted but stopped. No nasal or oral bleeding noted after ngt was removed. Initiate both soft wrist restraints. Skin is intact. pulses are palpable. No paresthesia noted. Will endorse to AM shift gift pt time to rest before applying new NGT. Md will be made aware. Continue to monitor the patient
--- NOTE | 2020-08-14 07:05 | NUR ---
NURSE HAND-OFF REPORT: Important Events on Shift: pulled out ngt, iv line at 630a Patient Status: stable saturating 100% Diet: osmolite Pending Orders: n Pending Results/Labs:n Pending notification:n Latest Vital Signs: Temperature 97.2 , Pulse 100 , B/P 100 /53 , Respiratory Rate 25 , O2 SAT 97 , Bi-pap, O2 Flow Rate 15.0 . Vital Sign Comment: n EKG Rhythm: Atrial Fibrillation Rhythm change?: N Notified?: William Montoya MD Response: Message left await call Latest José Fall Score: 95 Fall Risk: High Risk Safety Measures: Call light Within Reach, Bed Alarm Zone 1, Side Rails Side Rails x3, Bed position Low and Locked. Fall Precautions: Yellow Socks Yellow Gown Door Sign Patient Fall Education Report given to Josephine RN/ Jose Rafael RN. Endrosed to ff up with Dr Herman or Deirdre regardibng NGT reinsertion and feeding
--- NOTE | 2020-08-14 07:20 | NUR ---
NURSE NOTES: Received report from BLANE BERTRAND. Pt is awake, grunts in acknowledgement upon introduction. Indonesian speaking. No signs of cardiac/respiratory distress. Showing SR on patient monitor. Pt on BiPAP 15/4, 100%, SpO2 100%. NGT of L nares removed during fitness coordinator, no feedings running. Skin issues noted. BW on, pulses and skin intact bilaterally. Overton draining well to gravity. L hand 20g patent, intact, and flushing well, running D5NS 60cc/hr. Vital signs are within normal range. HOB elevated, Side rails up x3, call light within reach, bed locked and in lowest position. Will continue plan of care. Will continue to monitor.
[2020-08-14] MEDS: Docusate 100mg/10ml Liq GT SCH ×2 (08:10→18:00)
[2020-08-14] MEDS: Amiodarone 200mg tab NG SCH ×2 (08:10→20:01)
[2020-08-14] MEDS: Heparin 5000 units/ml inj SUBQ SCH ×2 (08:10→21:20)
[2020-08-14] MEDS: Levodopa/Carbidopa 25/100 tab NG SCH ×3 (08:10→18:00)
--- NOTE | 2020-08-14 08:45 | NUR ---
NURSE NOTES: Called Dr. Gilmore and left message regarding pt's status, awaiting further instructions about re-insertion of NGT. Will continue plan of care.
[2020-08-14] MEDS: D5NS 1,000 ML IV SCH (08:50)
--- NOTE | 2020-08-14 09:14 | Pulmonology Progress Note ---
Subjective ROS Limited/Unobtainable: Yes Constitutional: Denies: fever Allergies: Coded Allergies: No Known Allergies (Unverified , 08/02/20) All Systems: reviewed and negative except above Subjective care noted on oxygen NRB--> still on BIPAP diffuse infiltrates Objective Last 24 Hour Vital Signs Date Time Temp Pulse Resp B/P (MAP) Pulse Ox O2 Delivery O2 Flow Rate FiO2 08/14/20 08:00 100 08/14/20 08:00 97.0 95 25 135/62 (86) 100 08/14/20 08:00 Bi-pap 08/14/20 07:38 102 08/14/20 04:00 Bi-pap 08/14/20 04:00 100 08/14/20 04:00 97.2 100 25 100/53 (69) 97 08/14/20 03:37 114 08/14/20 03:25 86 29 100 90 08/14/20 00:00 Bi-pap 08/14/20 00:00 100 08/14/20 00:00 98.1 88 25 116/59 (78) 97 08/13/20 23:30 91 08/13/20 23:13 88 32 100 100 08/13/20 20:08 84 111/59 08/13/20 20:00 Bi-pap 08/13/20 20:00 100 08/13/20 20:00 98.1 90 25 111/59 (76) 97 08/13/20 20:00 91 08/13/20 19:34 88 30 100 100 08/13/20 19:33 100 Bi-Pap 100 08/13/20 16:00 97.9 84 20 126/67 (86) 97 08/13/20 16:00 100 08/13/20 16:00 95 08/13/20 16:00 Bi-pap 08/13/20 15:11 101 19 98 100 08/13/20 12:00 Bi-pap 08/13/20 12:00 98.2 108 22 146/76 (99) 96 08/13/20 12:00 116 08/13/20 12:00 80 08/13/20 11:17 115 33 97 100 Intake and Output 08/13/20 08/14/20 19:00 07:00 Intake Total 533.062 ml 839.0 ml Output Total 300 ml 450 ml Balance 233.062 ml 389.0 ml IV Total 533.062 ml 839.0 ml Output Urine Total 300 ml 450 ml # Bowel Movements 2 Objective WDWN NAD reduced breath sounds bilaterally with scattered rhonchi [id number] NABS nontender no CCE nonfocal on BIPAP poorly responsive Laboratory Tests 08/14/20 04:03: White Blood Count 18.2H, Red Blood Count 3.77L, Hemoglobin 11.8L, Hematocrit 36.1L, Mean Corpuscular Volume 96, Mean Corpuscular Hemoglobin 31.2H, Mean Corpuscular Hemoglobin Concent 32.6, Red Cell Distribution Width 13.7, Platelet Count 173, Mean Platelet Volume 9.4, Neutrophils (%) (Auto) , Lymphocytes (%) (Auto) , Monocytes (%) (Auto) , Eosinophils (%) (Auto) , Basophils (%) (Auto) , Neutrophils % (Manual) [Pending], Lymphocytes % (Manual) [Pending], Platelet Estimate [Pending], Platelet Morphology [Pending], Sodium Level 144, Potassium Level 3.8, Chloride Level 106, Carbon Dioxide Level 39H, Anion Gap -1L, Blood Urea Nitrogen 41H, Creatinine 0.9, Estimat Glomerular Filtration Rate > 60, Glucose Level 144H, Calcium Level 8.0L, Total Bilirubin 0.3, Aspartate Amino Transf (AST/SGOT) 17, Alanine Aminotransferase (ALT/SGPT) < 6L, Alkaline Phosphatase 60, Total Protein 5.3L, Albumin 1.1L, Globulin 4.2, Albumin/Globulin Ratio 0.3L Current Medications Medications (Trade) Dose Ordered Sig/Javon Route PRN Reason Start Time Stop Time Status Last Admin Dose Admin Acetaminophen (Tylenol) 650 mg Q4H PRN ORAL Mild Pain (Pain Scale 1-3) 08/03/20 01:15 09/02/20 01:14 08/12/20 21:42 Acetaminophen (Tylenol) 650 mg Q4H PRN RECTAL Mild Pain (Pain Scale 1-3) 08/03/20 01:15 09/02/20 01:14 08/04/20 18:32 Amiodarone HCl (Cordarone) 200 mg EVERY 12 HOURS NG 08/09/20 21:00 11/03/20 13:14 08/13/20 20:08 Carbidopa/Levodopa (Sinemet 25/100) 1 tab THREE TIMES A DAY NG 08/09/20 18:00 09/02/20 08:59 08/13/20 17:13 Dextrose/Sodium Chloride 1,000 ml @ 60 mls/hr [id number] IV 08/13/20 17:00 09/12/20 16:59 08/14/20 08:50 Docusate Sodium (Colace) 100 mg TWICE A DAY GT 08/12/20 09:00 09/11/20 08:59 08/12/20 17:47 Heparin Sodium (Porcine) (Heparin 5000 units/ml) 5,000 units EVERY 12 HOURS SUBQ 08/03/20 09:00 09/17/20 08:59 08/13/20 20:11 Hydralazine HCl (Apresoline) 25 mg Q6H PRN NG SBP above 160 08/11/20 22:30 11/05/20 00:29 08/12/20 15:09 Magnesium Hydroxide (Mom) 30 ml DAILYPRN PRN GT Constipation 08/12/20 09:00 09/11/20 08:59 Metoprolol Tartrate (Lopressor) 25 mg Q12HR NG 08/13/20 09:00 11/11/20 08:59 08/13/20 20:08 Morphine Sulfate (Morphine Sulfate) 1 mg Q4H PRN IVP Moderate Pain (Pain Scale 4-6) 08/09/20 18:30 08/16/20 18:29 Piperacillin Sod/ Tazobactam Sod 3.375 gm/Sodium Chloride 110 ml @ 27.5 mls/hr EVERY 8 HOURS IVPB 08/08/20 14:00 08/17/20 13:59 08/14/20 06:40 Tamsulosin HCl (Flomax) 0.4 mg BEDTIME ORAL 08/03/20 21:00 09/02/20 20:59 08/13/20 20:08 Vancomycin HCl (Vanco pharmacy to dose) 1 ea DAILY PRN MISC Per rx protocol 08/12/20 11:30 09/11/20 11:29 Vancomycin HCl 1 gm/Dextrose 275 ml @ 183.708 mls/hr Q24H IVPB 08/12/20 13:00 08/17/20 12:59 08/13/20 13:33 Assessment/Plan Assessment/Plan ASSESSMENT: chronic encephalopathy, dementia, diffuse infiltrates, elevated BNP hypertension, recurrent falls, and urinary tract infection, hypoxemia, probable aspiration pneumonia. PLAN care noted respiratory care as is oxygen and BIPAP followup CXR and ABG for change palliative care recommended doubt any chance of recovery DNAR impression, plan, and exam edited and reviewed in detail care discussed with Eriberto Gilliland MD Aug 14, 2020 09:13
--- NOTE | 2020-08-14 09:36 | NUR ---
NURSE NOTES: Called Dr. Gilmore and Dr. Herman's office and left message regarding F/U for NGT. Awaiting orders.
--- NOTE | 2020-08-14 10:00 | NUR ---
NURSE NOTES: Patient pulled out NGT this morning, and continues to pull off bipap. Patient noted desaturating to 50 % off bipap. Placed patient on bilateral soft wrist restraints for safety. Contacted and informed Dr. Gilmore of situation. Dr. Gilmore acknowledged and ordered to reinsert NGT, Dr. Gilmore agreed with placing patient on bilateral soft wrist restraints. Orders entered, noted, and carried out. Will continue to monitor patient.
--- NOTE | 2020-08-14 11:00 | NUR ---
NURSE NOTES: Prior to inserting NGT as ordered by Dr. Gilmore, this nurse assessed patient off BIPAP with settings of 15/4 FiO2 90%, patient noted desaturating to 75% in less than 15 seconds. Contacted and informed Dr. Gilmore of assessments. Per Dr. Gilmore acknowledged and stated to try later. Noted. Will continue to monitor patient.
--- NOTE | 2020-08-14 11:35 | Infectious Diseases Prog Note ---
Assessment/Plan Assessment/Plan antibiotics : vancomycin iv zosyn A 1. Right-sided pneumonia. 2. COVID-19 test is negative. 3. Urinary tract infection. 4. Hypertension. 5. Dementia. 6. Respiratory failure. 7. leucocytosis increased P 1. continue iv vancomycin, zosyn 2. will follow up cultures 3. poor prognosis Subjective ROS Limited/Unobtainable: Yes Allergies: Coded Allergies: No Known Allergies (Unverified , 08/02/20) Objective Last 24 Hour Vital Signs Date Time Temp Pulse Resp B/P (MAP) Pulse Ox O2 Delivery O2 Flow Rate FiO2 08/14/20 08:00 100 08/14/20 08:00 97.0 95 25 135/62 (86) 100 08/14/20 08:00 Bi-pap 08/14/20 07:38 102 08/14/20 07:31 100 Bi-Pap 90 08/14/20 07:30 89 30 100 90 08/14/20 04:00 Bi-pap 08/14/20 04:00 100 08/14/20 04:00 97.2 100 25 100/53 (69) 97 08/14/20 03:37 114 08/14/20 03:25 86 29 100 90 08/14/20 00:00 Bi-pap 08/14/20 00:00 100 08/14/20 00:00 98.1 88 25 116/59 (78) 97 08/13/20 23:30 91 08/13/20 23:13 88 32 100 100 08/13/20 20:08 84 111/59 08/13/20 20:00 Bi-pap 08/13/20 20:00 100 08/13/20 20:00 98.1 90 25 111/59 (76) 97 08/13/20 20:00 91 08/13/20 19:34 88 30 100 100 08/13/20 19:33 100 Bi-Pap 100 08/13/20 16:00 97.9 84 20 126/67 (86) 97 08/13/20 16:00 100 08/13/20 16:00 95 08/13/20 16:00 Bi-pap 08/13/20 15:11 101 19 98 100 08/13/20 12:00 Bi-pap 08/13/20 12:00 98.2 108 22 146/76 (99) 96 08/13/20 12:00 116 08/13/20 12:00 80 Height (Feet): 5 Height (Inches): 5.00 Weight (Pounds): 99 HEENT: other - on bipap Respiratory/Chest: lungs clear Cardiovascular: normal rate, regular rhythm, no gallop/murmur Abdomen: soft, non tender Extremities: no edema Laboratory Tests Test 08/14/20 04:03 White Blood Count 18.2 K/UL (4.8-10.8) H Red Blood Count 3.77 M/UL (4.70-6.10) L Hemoglobin 11.8 G/DL (14.2-18.0) L Hematocrit 36.1 % (42.0-52.0) L Mean Corpuscular Volume 96 FL (80-99) Mean Corpuscular Hemoglobin 31.2 PG (27.0-31.0) H Mean Corpuscular Hemoglobin Concent 32.6 G/DL (32.0-36.0) Red Cell Distribution Width 13.7 % (11.6-14.8) Platelet Count 173 K/UL (150-450) Mean Platelet Volume 9.4 FL (6.5-10.1) Neutrophils (%) (Auto) % (45.0-75.0) Lymphocytes (%) (Auto) % (20.0-45.0) Monocytes (%) (Auto) % (1.0-10.0) Eosinophils (%) (Auto) % (0.0-3.0) Basophils (%) (Auto) % (0.0-2.0) Differential Total Cells Counted 100 Neutrophils % (Manual) 94 % (45-75) H Lymphocytes % (Manual) 3 % (20-45) L Monocytes % (Manual) 2 % (1-10) Eosinophils % (Manual) 1 % (0-3) Basophils % (Manual) 0 % (0-2) Band Neutrophils 0 % (0-8) Platelet Estimate Adequate Platelet Morphology Normal Hypochromasia 1+ Sodium Level 144 MMOL/L (136-145) Potassium Level 3.8 MMOL/L (3.5-5.1) Chloride Level 106 MMOL/L (98-107) Carbon Dioxide Level 39 MMOL/L (21-32) H Anion Gap -1 mmol/L (5-15) L Blood Urea Nitrogen 41 mg/dL (7-18) H Creatinine 0.9 MG/DL (0.55-1.30) Estimat Glomerular Filtration Rate > 60 mL/min (>60) Glucose Level 144 MG/DL (74-106) H Calcium Level 8.0 MG/DL (8.5-10.1) L Total Bilirubin 0.3 MG/DL (0.2-1.0) Aspartate Amino Transf (AST/SGOT) 17 U/L (15-37) Alanine Aminotransferase (ALT/SGPT) < 6 U/L (12-78) L Alkaline Phosphatase 60 U/L (46-116) Total Protein 5.3 G/DL (6.4-8.2) L Albumin 1.1 G/DL (3.4-5.0) L Globulin 4.2 g/dL Albumin/Globulin Ratio 0.3 (1.0-2.7) L Current Medications Medications (Trade) Dose Ordered Sig/Javon Route PRN Reason Start Time Stop Time Status Last Admin Dose Admin Acetaminophen (Tylenol) 650 mg Q4H PRN ORAL Mild Pain (Pain Scale 1-3) 08/03/20 01:15 09/02/20 01:14 08/12/20 21:42 Acetaminophen (Tylenol) 650 mg Q4H PRN RECTAL Mild Pain (Pain Scale 1-3) 08/03/20 01:15 09/02/20 01:14 08/04/20 18:32 Amiodarone HCl (Cordarone) 200 mg EVERY 12 HOURS NG 08/09/20 21:00 11/03/20 13:14 08/13/20 20:08 Carbidopa/Levodopa (Sinemet 25/100) 1 tab THREE TIMES A DAY NG 08/09/20 18:00 09/02/20 08:59 08/13/20 17:13 Dextrose/Sodium Chloride 1,000 ml @ 60 mls/hr [id number] IV 08/13/20 17:00 09/12/20 16:59 08/14/20 08:50 Docusate Sodium (Colace) 100 mg TWICE A DAY GT 08/12/20 09:00 09/11/20 08:59 08/12/20 17:47 Heparin Sodium (Porcine) (Heparin 5000 units/ml) 5,000 units EVERY 12 HOURS SUBQ 08/03/20 09:00 09/17/20 08:59 08/13/20 20:11 Hydralazine HCl (Apresoline) 25 mg Q6H PRN NG SBP above 160 08/11/20 22:30 11/05/20 00:29 08/12/20 15:09 Magnesium Hydroxide (Mom) 30 ml DAILYPRN PRN GT Constipation 08/12/20 09:00 09/11/20 08:59 Metoprolol Tartrate (Lopressor) 25 mg Q12HR NG 08/13/20 09:00 11/11/20 08:59 08/13/20 20:08 Morphine Sulfate (Morphine Sulfate) 1 mg Q4H PRN IVP Moderate Pain (Pain Scale 4-6) 08/09/20 18:30 08/16/20 18:29 Piperacillin Sod/ Tazobactam Sod 3.375 gm/Sodium Chloride 110 ml @ 27.5 mls/hr EVERY 8 HOURS IVPB 08/08/20 14:00 08/17/20 13:59 08/14/20 06:40 Tamsulosin HCl (Flomax) 0.4 mg BEDTIME ORAL 08/03/20 21:00 09/02/20 20:59 08/13/20 20:08 Vancomycin HCl (Vanco pharmacy to dose) 1 ea DAILY PRN MISC Per rx protocol 08/12/20 11:30 09/11/20 11:29 Vancomycin HCl 1 gm/Dextrose 275 ml @ 183.708 mls/hr Q24H IVPB 08/12/20 13:00 08/17/20 12:59 08/13/20 13:33 Wagner Christensen MD Aug 14, 2020 11:35
--- NOTE | 2020-08-14 11:50 | NUR ---
CASE MANAGEMENT:REVIEW 08/14/20 SI: PNA. UTI. AFIB RVR 97.0 107 25 135/62 100% BIPAP W/100% FIO2 WBC+17.3 BUN+40 IS: IV VANCOMYCIN Q24 IV ZOSYN Q8HRS IVF@60/HR HEPARIN SQ Q12 : SDU DCP: FROM [facility] REHAB PLAN: NG TUBE REMAINS IN PLACE ~ NPO
--- NOTE | 2020-08-14 11:53 | NUR ---
NURSE NOTES: Pt showed ST on radiation monitor at 145-150 BPM. Assessed vitals, BP 89/55, 145 HR, 97%, 96.8F. Pt is DNR/DNI per code status order. Called Dr. Gilmore, left urgent message. Rechecked vital signs, BP 69/54, SpO2 70% on BiPAP 15/4, 100% FiO2. Dr. Gilmore called back and gave orders for 250 NS bolus and STAT ABG. Will continue plan of care. Will continue to monitor.
--- NOTE | 2020-08-14 12:55 | NUR ---
NURSE NOTES: Patient's blood pressure noted at 98/54 HR 94, Temp 97.4 after 250 NS IV x 1 bolus. ABG results while on bipap 15/4 FiO2 100 %: pH 7.199, pC)2 94.7, pO2 111.6, HCO3 36.1. Dr. Gilmore acknowledged and ordered to change Bipap to 16/6 and wean oxygen as tolerated. Order entered, noted, and carried out. RT made aware. Will continue to monitor patient. Addendum: 08/14/20 at 1931 by DEEPIKA ROWLAND RN NURSE NOTES: Addendum, inquired if Dr. Gilmore would like ABG after, no new order given at this time. Noted.
[2020-08-14] MEDS: Vancomycin 1gm/D5W 275ml IVPB SCH ×2 (13:02)
--- NOTE | 2020-08-14 13:15 | NUR ---
RESPIRATORY NOTE: Increased BIPAP settings to 16/6 per MD order post ABG. Jose Rafael RN aware. Titrated Fio2 to to 80%. Spo2 100% on current settings. Pt in no apparent distress at this time. BIPAP plugged into red outlet. Alarms are on and audible. Ambu bag at bedside. Will continue to monitor and follow plan of care.
--- NOTE | 2020-08-14 13:34 | NUR ---
NURSE NOTES: Administered afternoon medications, tolerated well. Pt appears to be in no respiratory/cardiac distress. Vitals are as follows: BP 102/51, HR 97, SpO2 100% on BiPAP 16/6, 80% FiO2. Will continue plan of care. Will continue to monitor.
--- NOTE | 2020-08-14 14:42 | Cardiology Progress Note ---
Subjective DATE OF SERVICE: Aug 14, 2020 Remains congested and SOB. Was lethargic until placed back on bipap support. NPO due to aspiration risk; NGTube in place. BP readings now stable. ABG (08/14): 7.20/95/111 on VM Monitor: sinus/sinus tachy with rare paroxysmal AFib Spoke to Ruth frank ([phone]) Granddtr states patient wanted to live a long life, but not on machines. For now, they want to continue current level of care, but will reassess if condition deteriorates further. Objective Last 24 Hour Vital Signs Date Time Temp Pulse Resp B/P (MAP) Pulse Ox O2 Delivery O2 Flow Rate FiO2 08/14/20 13:33 97.3 97 20 102/51 (68) 100 08/14/20 13:15 95 18 100 80 08/14/20 12:45 97.3 94 20 98/54 (69) 100 08/14/20 12:15 100 08/14/20 12:10 96.8 96 25 92/48 (63) 8 08/14/20 12:00 Bi-pap 08/14/20 11:55 96.9 99 28 100/44 (62) 97 08/14/20 11:33 107 25 98 100 08/14/20 11:22 144 08/14/20 08:00 100 08/14/20 08:00 97.0 95 25 135/62 (86) 100 08/14/20 08:00 Bi-pap 08/14/20 07:38 102 08/14/20 07:31 100 Bi-Pap 90 08/14/20 07:30 89 30 100 90 08/14/20 04:00 Bi-pap 08/14/20 04:00 100 08/14/20 04:00 97.2 100 25 100/53 (69) 97 08/14/20 03:37 114 08/14/20 03:25 86 29 100 90 08/14/20 00:00 Bi-pap 08/14/20 00:00 100 08/14/20 00:00 98.1 88 25 116/59 (78) 97 08/13/20 23:30 91 08/13/20 23:13 88 32 100 100 08/13/20 20:08 84 111/59 08/13/20 20:00 Bi-pap 08/13/20 20:00 100 08/13/20 20:00 98.1 90 25 111/59 (76) 97 08/13/20 20:00 91 08/13/20 19:34 88 30 100 100 08/13/20 19:33 100 Bi-Pap 100 08/13/20 16:00 97.9 84 20 126/67 (86) 97 08/13/20 16:00 100 08/13/20 16:00 95 08/13/20 16:00 Bi-pap 08/13/20 15:11 101 19 98 100 ROS: unchanged from my evaluation of 08/02/20 HEENT: normal ENT inspection RHYTHM: NSR, PACs LUNGS: bilateral rhonchi CARDIAC: normal S1 and S2, irregularly irregular, systolic murmur - 1/6 systolic murmurat apex, rapid rate ABDOMEN: normal bowel sounds, non tender, soft, no organomegaly EXTREMITIES: normal range of motion, trace edema Laboratory Tests Test 08/14/20 04:03 08/14/20 11:55 08/14/20 11:59 White Blood Count 18.2 K/UL (4.8-10.8) H Red Blood Count 3.77 M/UL (4.70-6.10) L Hemoglobin 11.8 G/DL (14.2-18.0) L Hematocrit 36.1 % (42.0-52.0) L Mean Corpuscular Volume 96 FL (80-99) Mean Corpuscular Hemoglobin 31.2 PG (27.0-31.0) H Mean Corpuscular Hemoglobin Concent 32.6 G/DL (32.0-36.0) Red Cell Distribution Width 13.7 % (11.6-14.8) Platelet Count 173 K/UL (150-450) Mean Platelet Volume 9.4 FL (6.5-10.1) Neutrophils (%) (Auto) % (45.0-75.0) Lymphocytes (%) (Auto) % (20.0-45.0) Monocytes (%) (Auto) % (1.0-10.0) Eosinophils (%) (Auto) % (0.0-3.0) Basophils (%) (Auto) % (0.0-2.0) Differential Total Cells Counted 100 Neutrophils % (Manual) 94 % (45-75) H Lymphocytes % (Manual) 3 % (20-45) L Monocytes % (Manual) 2 % (1-10) Eosinophils % (Manual) 1 % (0-3) Basophils % (Manual) 0 % (0-2) Band Neutrophils 0 % (0-8) Platelet Estimate Adequate Platelet Morphology Normal Hypochromasia 1+ Sodium Level 144 MMOL/L (136-145) Potassium Level 3.8 MMOL/L (3.5-5.1) Chloride Level 106 MMOL/L (98-107) Carbon Dioxide Level 39 MMOL/L (21-32) H Anion Gap -1 mmol/L (5-15) L Blood Urea Nitrogen 41 mg/dL (7-18) H Creatinine 0.9 MG/DL (0.55-1.30) Estimat Glomerular Filtration Rate > 60 mL/min (>60) Glucose Level 144 MG/DL (74-106) H Calcium Level 8.0 MG/DL (8.5-10.1) L Total Bilirubin 0.3 MG/DL (0.2-1.0) Aspartate Amino Transf (AST/SGOT) 17 U/L (15-37) Alanine Aminotransferase (ALT/SGPT) < 6 U/L (12-78) L Alkaline Phosphatase 60 U/L (46-116) Total Protein 5.3 G/DL (6.4-8.2) L Albumin 1.1 G/DL (3.4-5.0) L Globulin 4.2 g/dL Albumin/Globulin Ratio 0.3 (1.0-2.7) L Vancomycin Level Trough 8.2 ug/mL (5.0-12.0) Arterial Blood pH 7.199 (7.350-7.450) Arterial Blood Partial Pressure CO2 94.7 mmHg (35.0-45.0) *H Arterial Blood Partial Pressure O2 111.6 mmHg (75.0-100.0) H Arterial Blood HCO3 36.1 mmol/L (22.0-26.0) H Arterial Blood Oxygen Saturation 97.3 % (95-100) Arterial Blood Base Excess 5.2 (-2-2) H Emile Test Positive Assessment/Plan Assessment/Plan Paroxysmal atrial fibrillation with RVR Acute myocardial ischemia with elevated troponin Aspiration risk Sepsis Healthcare acquired PNA Complicated UTI with indwelling catheter Hyponatremia Severe protein calorie malnutrition Acute myocardial ischemia Respiratory failure with hypoxia and hypercarbia Hypokalemia Leukocytosis improving Ac/chronic diastolic CHF CRITICAL & GUARDED Empiric antibiotics Bipap support resumed NGTube feedings DVT prophylaxis Periodic diuresis based on clinical parameters. Potassium replacement as needed. Continue amiodarone Titrate anti-HTN regimen, including beta katya. Sarkis Herman MD Aug 14, 2020 14:42
--- NOTE | 2020-08-14 15:00 | NUR ---
RESPIRATORY NOTE: Placed pt on non rebreather 100% fio2. Jose Rafael ARGUELLES bedside. Pt in no apparent distress and tolerating well at this time. Spo2 100%. Will continue to monitor and follow plan of care.
--- NOTE | 2020-08-14 15:39 | General Progress Note ---
Subjective ROS Limited/Unobtainable: Yes Constitutional: Reports: malaise, weakness HEENT: Reports: no symptoms Cardiovascular: Reports: no symptoms Respiratory: Reports: cough, shortness of breath, sputum Gastrointestinal/Abdominal: Reports: difficulty swallowing Genitourinary: Reports: no symptoms Neurologic/Psychiatric: Reports: pre-existing deficit Endocrine: Reports: no symptoms Hematologic/Lymphatic: Reports: anemia Allergies: Coded Allergies: No Known Allergies (Unverified , 08/02/20) All Systems: reviewed and negative except above Subjective remains in bipap. NGT dislodged. Rn unable to replace due to hypoxemia and resp distress of bipap. lethargic and difficult to arouse. on iv abx. Objective Last 24 Hour Vital Signs Date Time Temp Pulse Resp B/P (MAP) Pulse Ox O2 Delivery O2 Flow Rate FiO2 08/14/20 13:33 97.3 97 20 102/51 (68) 100 08/14/20 13:15 95 18 100 80 08/14/20 12:45 97.3 94 20 98/54 (69) 100 08/14/20 12:15 100 08/14/20 12:10 96.8 96 25 92/48 (63) 8 08/14/20 12:00 Bi-pap 08/14/20 11:55 96.9 99 28 100/44 (62) 97 08/14/20 11:33 107 25 98 100 08/14/20 11:22 144 08/14/20 08:00 100 08/14/20 08:00 97.0 95 25 135/62 (86) 100 08/14/20 08:00 Bi-pap 08/14/20 07:38 102 08/14/20 07:31 100 Bi-Pap 90 08/14/20 07:30 89 30 100 90 08/14/20 04:00 Bi-pap 08/14/20 04:00 100 08/14/20 04:00 97.2 100 25 100/53 (69) 97 08/14/20 03:37 114 08/14/20 03:25 86 29 100 90 08/14/20 00:00 Bi-pap 08/14/20 00:00 100 08/14/20 00:00 98.1 88 25 116/59 (78) 97 08/13/20 23:30 91 08/13/20 23:13 88 32 100 100 08/13/20 20:08 84 111/59 08/13/20 20:00 Bi-pap 08/13/20 20:00 100 08/13/20 20:00 98.1 90 25 111/59 (76) 97 08/13/20 20:00 91 08/13/20 19:34 88 30 100 100 08/13/20 19:33 100 Bi-Pap 100 08/13/20 16:00 97.9 84 20 126/67 (86) 97 08/13/20 16:00 100 08/13/20 16:00 95 08/13/20 16:00 Bi-pap Intake and Output 08/13/20 08/14/20 19:00 07:00 Intake Total 533.062 ml 839.0 ml Output Total 300 ml 450 ml Balance 233.062 ml 389.0 ml IV Total 533.062 ml 839.0 ml Output Urine Total 300 ml 450 ml # Bowel Movements 2 Laboratory Tests 08/14/20 04:03: White Blood Count 18.2H, Red Blood Count 3.77L, Hemoglobin 11.8L, Hematocrit 36.1L, Mean Corpuscular Volume 96, Mean Corpuscular Hemoglobin 31.2H, Mean Corpuscular Hemoglobin Concent 32.6, Red Cell Distribution Width 13.7, Platelet Count 173, Mean Platelet Volume 9.4, Neutrophils (%) (Auto) , Lymphocytes (%) (Auto) , Monocytes (%) (Auto) , Eosinophils (%) (Auto) , Basophils (%) (Auto) , Differential Total Cells Counted 100, Neutrophils % (Manual) 94H, Lymphocytes % (Manual) 3L, Monocytes % (Manual) 2, Eosinophils % (Manual) 1, Basophils % (Manual) 0, Band Neutrophils 0, Platelet Estimate Adequate, Platelet Morphology Normal, Hypochromasia 1+, Sodium Level 144, Potassium Level 3.8, Chloride Level 106, Carbon Dioxide Level 39H, Anion Gap -1L, Blood Urea Nitrogen 41H, Creatinine 0.9, Estimat Glomerular Filtration Rate > 60, Glucose Level 144H, Calcium Level 8.0L, Total Bilirubin 0.3, Aspartate Amino Transf (AST/SGOT) 17, Alanine Aminotransferase (ALT/SGPT) < 6L, Alkaline Phosphatase 60, Total Protein 5.3L, Albumin 1.1L, Globulin 4.2, Albumin/Globulin Ratio 0.3L 08/14/20 11:55: Vancomycin Level Trough 8.2 08/14/20 11:59: Arterial Blood pH 7.199*L, Arterial Blood Partial Pressure CO2 94.7*H, Arterial Blood Partial Pressure O2 111.6H, Arterial Blood HCO3 36.1H, Arterial Blood Oxygen Saturation 97.3, Arterial Blood Base Excess 5.2H, Emile Test Positive Height (Feet): 5 Height (Inches): 5.00 Weight (Pounds): 99 Objective General Appearance: WD/WN, confused, thin. on bipap EENT: normal ENT inspection Neck: non-tender, normal alignment, supple Cardiovascular: normal rate, regular rhythm Respiratory/Chest: chest wall non-tender, lungs clear, normal breath sounds, no respiratory distress, no accessory muscle use Abdomen: normal bowel sounds, non tender, soft, no organomegaly Edema: no edema noted Arm (L), no edema noted Arm (R) Assessment/Plan Problem List: (1) Pneumonia ICD Codes: J18.9 - Pneumonia, unspecified organism SNOMED: 486021767 (2) Hypoxia ICD Codes: R09.02 - Hypoxemia SNOMED: 861565657 (3) AMS (altered mental status) ICD Codes: R41.82 - Altered mental status, unspecified SNOMED: 465920178 (4) UTI (urinary tract infection) ICD Codes: N39.0 - Urinary tract infection, site not specified SNOMED: 68819110 (5) Sepsis ICD Codes: A41.9 - Sepsis, unspecified organism SNOMED: 24919968 Status: stable, not improved Assessment/Plan: bipap as needed rate control per cards monitor abg and cxr iv abx per speech rx tube feeds dvt/stress ulcer prophylaxis monitor lytes ngt feeds bowel regime has advanced directive for dnr grand dtr updated. aware of poor prognosis Chavez Gilmore MD Aug 14, 2020 15:39
--- NOTE | 2020-08-14 16:20 | NUR ---
RESPIRATORY NOTE: Placed pt back on Bipap 16/6 due to desaturation to 80% spo2. Increased BIPAP Fio2 to 100%. Spo2 94% on current settings. Will continue to monitor and follow plan of care to titrate fio2.
--- NOTE | 2020-08-14 17:45 | NUR ---
NURSE NOTES: Dr. Herman at nurse station, made aware that patient was unable to tolerate being off BIPAP to go for ordered Head CT with no contrast. Dr. Herman acknowledged and informed this nurse okay to postpone Head CT with no contrast until patient can tolerate off BIPAP. Will endorse accordingly. Noted.
--- NOTE | 2020-08-14 17:54 | Diagnostic Imaging Report ---
EXAM: XR Abdomen, 2 Views CLINICAL HISTORY: NGT TECHNIQUE: Frontal view of the abdomen/pelvis with upright view of the abdomen. COMPARISON: Prior 08/09/2020 FINDINGS: Lower thorax: Incompletely imaged lung bases demonstrate extensive bibasilar consolidations. Retrocardiac atelectasis with or without consolidation. Intraperitoneal space: No free air. Gastrointestinal tract: Colonic contrast from prior oral contrast demonstration not significantly changed since prior study, representing extremely slow distal transit. No dilation. Bones/joints: Osteopenia and degenerative spine findings. Tubes, lines and devices: Enteric tube with tip and proximal sideport below the gastroesophageal junction. Paucity of small bowel gas could be due to NG tube suction versus fluid-filled bowel loops. IMPRESSION: 1. Enteric tube with tip and proximal sideport below the gastroesophageal junction. 2. Colonic contrast from prior oral contrast demonstration not significantly changed since prior study, representing extremely slow distal transit. 3. Incompletely imaged lung bases demonstrate extensive bibasilar consolidations. 4. Retrocardiac atelectasis with or without consolidation. 5. Paucity of small bowel gas could be due to NG tube suction versus fluid-filled bowel loops.
--- NOTE | 2020-08-14 19:14 | NUR ---
NURSE HAND-OFF REPORT: Important Events on Shift:[Hypotensive episode of SBP 69, desaturation of 70%, and HR of 150s. Unable to tolerate non-rebreather for CT head] Patient Status: [Stable] Diet: [Osmolite 1.5 20cc/hr on hold due to BiPAP] Pending Orders: [CT head W/O contrast] Pending Results/Labs:[NA] Pending MD notification:[NA] Latest Vital Signs: Temperature 97.2 , Pulse 92 , B/P 110 /54 , Respiratory Rate 25 , O2 SAT 97 , Bi-pap, O2 Flow Rate 15.0 . Vital Sign Comment: [NA] EKG Rhythm: Sinus Rhythm Rhythm change?: N Notified?: William Montoya MD Response: Message left await call Latest José Fall Score: 75 Fall Risk: High Risk Safety Measures: Call light Within Reach, Bed Alarm Zone 1, Side Rails Side Rails x3, Bed position Low and Locked. Fall Precautions: Yellow Socks Yellow Gown Door Sign Patient Fall Education Report given to [BLANE Mendes].
--- NOTE | 2020-08-14 19:15 | NUR ---
NURSE NOTES: Per STAT KUB to assess NGT placement, impressions read "Enteric tube with tip and proximal sideport below the gastroesophageal junction." Contacted and informed Dr. Gilmore of KUB results and if okay to use NGT to administer medications while patient is on BIPAP. Dr. Gilmore acknowledged and okay to use NGT for medication administration. Noted. Will continue to monitor patient.
--- NOTE | 2020-08-14 19:30 | NUR ---
NURSE NOTES: SBAR from Josephine Ngo RN. Patient assessed and is noted to be lethargic and unresponsive to stimulus. Patient is on BIPAP 16/6 with FiO2 of 80%. There is an NGT in place, and peripheral IV lines noted that are patent and intact. Patients current Vitals are HR 83 NSR, RR 16, SpO2 98%, BP 102/54 and temp of 97.8F (ax). Safety measures in place, will continue to monitor.
--- NOTE | 2020-08-14 20:00 | NUR ---
NURSE NOTES: Patient not very responsive to stimulation and to verbal command. Patient is currently on 16/6 and 80% Fio2. Last ABG done at noon.
[2020-08-14] MEDS: Tamsulosin 0.4mg cap ORAL SCH (20:02)
--- NOTE | 2020-08-14 20:05 | NUR ---
NURSE NOTES: Patients CO2 earlier at noon noted to be elevated. BIPAP settings changed to 20/5. Will monitor for any changes.
--- NOTE | 2020-08-14 21:58 | NUR ---
NURSE NOTES: Patient seems to be slightly responsive during when oral care was given. Patient was able to lift up left arm but not keep it up for very long. It is noted during oral care that patient tends to desaturates quickly when BIPAP is removed. Respirations noted to be shallow and tachypneic around the 30s. Blood pressure taken noted to be 103/55.
--- NOTE | 2020-08-14 23:12 | NUR ---
NURSE NOTES: Patient assessment performed; patient was given oral care. Patient noted to have hypoactive gag reflexes. Patient slightly opens eyes to oral stimulations. Does not respond actively to sternal rubs. Blood pressure is noted to be 98/51 and HR is 94 NSR. Patient saturating at 100% at 70% FiO2. Respirations are shallow and tachypneic in the 30s, BIPAP shows tidal volumes > 350.
[2020-08-15] VITALS: BP 128/67
[2020-08-15] MEDS: D5NS 1,000 ML IV SCH ×2 (03:00→17:12)
[2020-08-15 04:00] VITALS: BP 113/66
--- NOTE | 2020-08-15 04:00 | NUR ---
NURSE NOTES: Patient given sponge bath. Patient is more responsive to stimulation compared to start of shift however patient still lethargic and requires painful stimulation to get any activity response. Patient does clench down when trying to perform oral care. BP has remains stable. FiO2 now at 60% with Saturations at 98%. Patient does remains slightly tachypneic with shallow breathing, Tidal volumes on BIPAP shows > 350
[2020-08-15] MEDS: Piperacillin/Tazobactam 3.375 GM in NS 110 ML IVPB SCH ×3 (05:58→20:59)
--- NOTE | 2020-08-15 07:04 | NUR ---
HAND-OFF: Report given to Emiliano ARGUELLES.
--- NOTE | 2020-08-15 07:30 | NUR ---
NURSE NOTES: Report received from BLANE Mendes. Pt is lethargic but arousable to voice, Telugu speaking. Pt is not in respiratory/cardiac distress. radiation monitor is showing SR. Pt is on BiPAP 20/5, 60% FiO2, SpO2 96%. NGT feeding is on hold due to BiPAP. No residuals noted. Skin is intact. R FA 22g and L hand 24g is patent, flushes well, and asymptomatic, running D5NS at 60cc/hr. HOB is elevated, call light within reach, bed locked and in lowest position. Fall and aspiration precaution noted and reinforced. DNR/DNI status noted. Vitals currently stable. Will continue plan of care. Will continue to monitor.
[2020-08-15 08:00] VITALS: BP 131/64
[2020-08-15 08:06] LABS: ANION GAP 1 mmol/L (5-15); BLOOD UREA NITROGEN 42 mg/dL (7-18); CALCIUM 8.3 MG/DL (8.5-10.1); CARBON DIOXIDE 37 MMOL/L (21-32); CHLORIDE 110 MMOL/L (98-107); POTASSIUM 4.1 MMOL/L (3.5-5.1); SODIUM 148 MMOL/L (136-145)
[2020-08-15] MEDS: Docusate 100mg/10ml Liq GT SCH ×2 (08:13→17:09)
[2020-08-15] MEDS: Amiodarone 200mg tab NG SCH ×2 (08:13→20:14)
[2020-08-15] MEDS: Levodopa/Carbidopa 25/100 tab NG SCH ×3 (08:13→17:09)
--- NOTE | 2020-08-15 08:15 | NUR ---
NURSE NOTES: Dr. Gilmore at bedside doing assessment. Inquired about family's decision about palliative care. Dr. Gilmore stated that he has talked with family has been awaiting response. No new orders noted.
[2020-08-15] MEDS: Heparin 5000 units/ml inj SUBQ SCH ×2 (08:19→20:16)
--- NOTE | 2020-08-15 09:30 | NUR ---
NURSE NOTES: Received call from zora Miranda. Updated her on pt's status, including his ABGs, BiPAP settings, neuro status, and general appearance. Asked granddaughter about plans for palliative care. She said that she will make the decision in about 2 days and call us after deliberation with her family members and further updates from Dr. Herman.
[2020-08-15 09:54] LABS: HEMOGLOBIN 11.5 G/DL (14.2-18.0); MEAN CORPUSCULAR VOLUME 97 FL (80-99); PLATELET COUNT 172 K/UL (150-450); RED CELL DISTRIBUTION WIDTH 13.3 % (11.6-14.8); WHITE BLOOD COUNT 18.2 K/UL (4.8-10.8)
[2020-08-15 12:00] VITALS: BP 102/41
--- NOTE | 2020-08-15 12:14 | Pulmonology Progress Note ---
Subjective ROS Limited/Unobtainable: Yes Constitutional: Denies: fever Allergies: Coded Allergies: No Known Allergies (Unverified , 08/02/20) All Systems: reviewed and negative except above Objective Last 24 Hour Vital Signs Date Time Temp Pulse Resp B/P (MAP) Pulse Ox O2 Delivery O2 Flow Rate FiO2 08/15/20 11:30 67 32 95 60 08/15/20 08:13 84 131/64 08/15/20 08:00 96.8 84 18 131/64 (86) 97 08/15/20 08:00 60 08/15/20 07:30 99 Bi-Pap 60 08/15/20 07:30 83 16 99 60 08/15/20 07:22 77 08/15/20 04:00 91 08/15/20 04:00 Bi-pap 08/15/20 04:00 60 08/15/20 04:00 97.2 82 22 113/66 (82) 100 08/15/20 02:55 96 34 99 60 08/15/20 00:18 70 08/15/20 00:00 92 08/15/20 00:00 97.4 89 30 128/67 (87) 96 08/15/20 00:00 Bi-pap 08/14/20 22:51 91 31 99 70 08/14/20 20:02 88 102/54 08/14/20 20:00 94 08/14/20 20:00 Bi-pap 08/14/20 20:00 80 08/14/20 20:00 97.8 89 20 102/54 (70) 100 08/14/20 19:05 92 25 97 80 08/14/20 19:04 97 Bi-Pap 80 08/14/20 17:51 80 08/14/20 16:20 142 30 100 100 08/14/20 16:00 80 08/14/20 16:00 Bi-pap 08/14/20 16:00 97.2 97 23 110/54 (72) 100 08/14/20 15:37 99 08/14/20 15:00 100 Non-Rebreather 100 08/14/20 14:55 93 17 100 80 08/14/20 13:33 97.3 97 20 102/51 (68) 100 08/14/20 13:15 95 18 100 80 08/14/20 12:45 97.3 94 20 98/54 (69) 100 08/14/20 12:15 100 Intake and Output 08/14/20 08/15/20 19:00 07:00 Intake Total 660 ml 590.0 ml Output Total 300 ml Balance 360 ml 590.0 ml IV Total 660 ml 590.0 ml Output Urine Total 300 ml Laboratory Tests 08/15/20 06:00: Sodium Level 148H, Potassium Level 4.1, Chloride Level 110H, Carbon Dioxide Level 37H, Anion Gap 1L, Blood Urea Nitrogen 42H, Creatinine 1.0, Estimat Glomerular Filtration Rate > 60, Glucose Level 137H, Calcium Level 8.3L 08/15/20 09:40: White Blood Count 18.2H, Red Blood Count 3.80L, Hemoglobin 11.5L, Hematocrit 37.0L, Mean Corpuscular Volume 97, Mean Corpuscular Hemoglobin 30.3, Mean Co rpuscular Hemoglobin Concent 31.2L, Red Cell Distribution Width 13.3, Platelet Count 172, Mean Platelet Volume 10.0, Neutrophils (%) (Auto) , Lymphocytes (%) (Auto) , Monocytes (%) (Auto) , Eosinophils (%) (Auto) , Basophils (%) (Auto) , Differential Total Cells Counted 100, Neutrophils % (Manual) 97H, Lymphocytes % (Manual) 3L, Monocytes % (Manual) 0L, Eosinophils % (Manual) 0, Basophils % (Manual) 0, Band Neutrophils 0, Platelet Estimate Adequate, Platelet Morphology Normal, Red Blood Cell Morphology Normal Current Medications Medications (Trade) Dose Ordered Sig/Javon Route PRN Reason Start Time Stop Time Status Last Admin Dose Admin Acetaminophen (Tylenol) 650 mg Q4H PRN ORAL Mild Pain (Pain Scale 1-3) 08/03/20 01:15 09/02/20 01:14 08/12/20 21:42 Acetaminophen (Tylenol) 650 mg Q4H PRN RECTAL Mild Pain (Pain Scale 1-3) 08/03/20 01:15 09/02/20 01:14 08/04/20 18:32 Amiodarone HCl (Cordarone) 200 mg EVERY 12 HOURS NG 08/09/20 21:00 11/03/20 13:14 08/15/20 08:13 Carbidopa/Levodopa (Sinemet 25/100) 1 tab THREE TIMES A DAY NG 08/09/20 18:00 09/02/20 08:59 08/15/20 08:13 Dextrose/Sodium Chloride 1,000 ml @ 60 mls/hr [id number] IV 08/13/20 17:00 09/12/20 16:59 08/15/20 03:00 Docusate Sodium (Colace) 100 mg TWICE A DAY GT 08/12/20 09:00 09/11/20 08:59 08/15/20 08:13 Heparin Sodium (Porcine) (Heparin 5000 units/ml) 5,000 units EVERY 12 HOURS SUBQ 08/03/20 09:00 09/17/20 08:59 08/15/20 08:19 Hydralazine HCl (Apresoline) 25 mg Q6H PRN NG SBP above 160 08/11/20 22:30 11/05/20 00:29 08/12/20 15:09 Magnesium Hydroxide (Mom) 30 ml DAILYPRN PRN GT Constipation 08/12/20 09:00 09/11/20 08:59 Metoprolol Tartrate (Lopressor) 25 mg Q12HR NG 08/13/20 09:00 11/11/20 08:59 08/15/20 08:13 Morphine Sulfate (Morphine Sulfate) 1 mg Q4H PRN IVP Moderate Pain (Pain Scale 4-6) 08/09/20 18:30 08/16/20 18:29 Piperacillin Sod/ Tazobactam Sod 3.375 gm/Sodium Chloride 110 ml @ 27.5 mls/hr EVERY 8 HOURS IVPB 08/08/20 14:00 08/17/20 13:59 08/15/20 05:58 Tamsulosin HCl (Flomax) 0.4 mg BEDTIME ORAL 08/03/20 21:00 09/02/20 20:59 08/13/20 20:08 Vancomycin HCl (Vanco pharmacy to dose) 1 ea DAILY PRN MISC Per rx protocol 08/12/20 11:30 09/11/20 11:29 Vancomycin HCl 1 gm/Dextrose 275 ml @ 183.708 mls/hr Q24H IVPB 08/12/20 13:00 08/17/20 12:59 08/14/20 13:02 Assessment/Plan Assessment/Plan Pulmonary Progress Note Subjective ROS Limited/Unobtainable: Yes Constitutional: Denies: fever Allergies: Coded Allergies: No Known Allergies (Unverified , 08/02/20) All Systems: reviewed and negative except above Subjective care noted on BIPAP, elevatedCO2 diffuse infiltrates Objective Vital Signs noted Objective WDWN NAD reduced breath sounds bilaterally with scattered rhonchi [id number] NABS nontender no CCE nonfocal on BIPAP poorly responsive Laboratory Tests noted 08/13/20 07:19: POC Whole Blood Glucose 99 08/13/20 07:33: Arterial Blood pH 7.444, Arterial Blood Partial Pressure CO2 55.2*H, Arterial Blood Partial Pressure O2 105.7H, Arterial Blood HCO3 37.0H, Arterial Blood Oxygen Saturation 97.6, Arterial Blood Base Excess 11.1*H, Emile Test Positive Current Medications Medications (Trade) Dose Ordered Sig/Javon Route PRN Reason Start Time Stop Time Status Last Admin Dose Admin Acetaminophen (Tylenol) 650 mg Q4H PRN ORAL Mild Pain (Pain Scale 1-3) 08/03/20 01:15 09/02/20 01:14 08/12/20 21:42 Acetaminophen (Tylenol) 650 mg Q4H PRN RECTAL Mild Pain (Pain Scale 1-3) 08/03/20 01:15 09/02/20 01:14 08/04/20 18:32 Amiodarone HCl (Cordarone) 200 mg EVERY 12 HOURS NG 08/09/20 21:00 11/03/20 13:14 08/13/20 08:07 Carbidopa/Levodopa (Sinemet 25/100) 1 tab THREE TIMES A DAY NG 08/09/20 18:00 09/02/20 08:59 08/13/20 08:07 Docusate Sodium (Colace) 100 mg TWICE A DAY GT 08/12/20 09:00 09/11/20 08:59 08/12/20 17:47 Heparin Sodium (Porcine) (Heparin 5000 units/ml) 5,000 units EVERY 12 HOURS SUBQ 08/03/20 09:00 09/17/20 08:59 08/13/20 08:08 Hydralazine HCl (Apresoline) 25 mg Q6H PRN NG SBP above 160 08/11/20 22:30 11/05/20 00:29 08/12/20 15:09 Magnesium Hydroxide (Mom) 30 ml DAILYPRN PRN GT Constipation 08/12/20 09:00 09/11/20 08:59 Metoprolol Tartrate (Lopressor) 25 mg Q12HR NG 08/13/20 09:00 11/11/20 08:59 Morphine Sulfate (Morphine Sulfate) 1 mg Q4H PRN IVP Moderate Pain (Pain Scale 4-6) 08/09/20 18:30 08/16/20 18:29 Piperacillin Sod/ Tazobactam Sod 3.375 gm/Sodium Chloride 110 ml @ 27.5 mls/hr EVERY 8 HOURS IVPB 08/08/20 14:00 08/17/20 13:59 08/13/20 05:09 Tamsulosin HCl (Flomax) 0.4 mg BEDTIME ORAL 08/03/20 21:00 09/02/20 20:59 08/12/20 20:20 Vancomycin HCl (Vanco pharmacy to dose) 1 ea DAILY PRN MISC Per rx protocol 08/12/20 11:30 09/11/20 11:29 Vancomycin HCl 1 gm/Dextrose 275 ml @ 183.708 mls/hr Q24H IVPB 08/12/20 13:00 08/17/20 12:59 08/12/20 13:40 Assessment/Plan Assessment/Plan ASSESSMENT: chronic encephalopathy, dementia, diffuse infiltrates, elevated BNP hypertension, recurrent falls, and urinary tract infection, hypoxemia, probable aspiration pneumonia. PLAN care noted respiratory care as is oxygen and BIPAP d/w family as to poor prognosis and consider terminal care on high oxygen needs repeat CXR and ABG noted palliative care recommended doubt any chance of recovery impression, plan, and exam edited and reviewed in detail care discussed with Sarkis Samano MD Aug 15, 2020 12:14
--- NOTE | 2020-08-15 12:15 | NUR ---
NURSE NOTES: Pt took off BiPAP. O2 saturation decreased from 90s to 70s. BiPAP was reapplied and SpO2 currently at 96%. Will continue to monitor.
[2020-08-15] MEDS: Vancomycin 1gm/D5W 275ml IVPB SCH ×2 (12:47)
--- NOTE | 2020-08-15 12:50 | General Progress Note ---
Subjective ROS Limited/Unobtainable: No Constitutional: Reports: malaise, weakness HEENT: Reports: no symptoms Cardiovascular: Reports: no symptoms Respiratory: Reports: SOB at rest Gastrointestinal/Abdominal: Reports: difficulty swallowing Genitourinary: Reports: no symptoms Neurologic/Psychiatric: Reports: pre-existing deficit Endocrine: Reports: no symptoms Hematologic/Lymphatic: Reports: no symptoms Allergies: Coded Allergies: No Known Allergies (Unverified , 08/02/20) All Systems: reviewed and negative except above Subjective stable on bipap. no fevers. KUB noted- ?gastroparesis. poorly responsive. Objective Last 24 Hour Vital Signs Date Time Temp Pulse Resp B/P (MAP) Pulse Ox O2 Delivery O2 Flow Rate FiO2 08/15/20 11:30 67 32 95 60 08/15/20 08:13 84 131/64 08/15/20 08:00 Bi-pap 08/15/20 08:00 96.8 84 18 131/64 (86) 97 08/15/20 08:00 60 08/15/20 07:30 99 Bi-Pap 60 08/15/20 07:30 83 16 99 60 08/15/20 07:22 77 08/15/20 04:00 91 08/15/20 04:00 Bi-pap 08/15/20 04:00 60 08/15/20 04:00 97.2 82 22 113/66 (82) 100 08/15/20 02:55 96 34 99 60 08/15/20 00:18 70 08/15/20 00:00 92 08/15/20 00:00 97.4 89 30 128/67 (87) 96 08/15/20 00:00 Bi-pap 08/14/20 22:51 91 31 99 70 08/14/20 20:02 88 102/54 08/14/20 20:00 94 08/14/20 20:00 Bi-pap 08/14/20 20:00 80 08/14/20 20:00 97.8 89 20 102/54 (70) 100 08/14/20 19:05 92 25 97 80 08/14/20 19:04 97 Bi-Pap 80 08/14/20 17:51 80 08/14/20 16:20 142 30 100 100 08/14/20 16:00 80 08/14/20 16:00 Bi-pap 08/14/20 16:00 97.2 97 23 110/54 (72) 100 08/14/20 15:37 99 08/14/20 15:00 100 Non-Rebreather 100 08/14/20 14:55 93 17 100 80 08/14/20 13:33 97.3 97 20 102/51 (68) 100 08/14/20 13:15 95 18 100 80 Intake and Output 08/14/20 08/15/20 19:00 07:00 Intake Total 660 ml 590.0 ml Output Total 300 ml Balance 360 ml 590.0 ml IV Total 660 ml 590.0 ml Output Urine Total 300 ml Laboratory Tests 08/15/20 06:00: Sodium Level 148H, Potassium Level 4.1, Chloride Level 110H, Carbon Dioxide Level 37H, Anion Gap 1L, Blood Urea Nitrogen 42H, Creatinine 1.0, Estimat Glomerular Filtration Rate > 60, Glucose Level 137H, Calcium Level 8.3L 08/15/20 09:40: White Blood Count 18.2H, Red Blood Count 3.80L, Hemoglobin 11.5L, Hematocrit 37.0L, Mean Corpuscular Volume 97, Mean Corpuscular Hemoglobin 30.3, Mean Corpuscular Hemoglobin Concent 31.2L, Red Cell Distribution Width 13.3, Platelet Count 172, Mean Platelet Volume 10.0, Neutrophils (%) (Auto) , Lymphocytes (%) (Auto) , Monocytes (%) (Auto) , Eosinophils (%) (Auto) , Basophils (%) (Auto) , Differential Total Cells Counted 100, Neutrophils % (Manual) 97H, Lymphocytes % (Manual) 3L, Monocytes % (Manual) 0L, Eosinophils % (Manual) 0, Basophils % (Manual) 0, Band Neutrophils 0, Platelet Estimate Adequate, Platelet Morphology Normal, Red Blood Cell Morphology Normal Height (Feet): 5 Height (Inches): 5.00 Weight (Pounds): 99 Objective General Appearance: WD/WN, confused, thin. on bipap EENT: normal ENT inspection Neck: non-tender, normal alignment, supple Cardiovascular: normal rate, regular rhythm Respiratory/Chest: chest wall non-tender, lungs clear, normal breath sounds, no respiratory distress, no accessory muscle use Abdomen: normal bowel sounds, non tender, soft, no organomegaly Edema: no edema noted Arm (L), no edema noted Arm (R) Assessment/Plan Problem List: (1) Pneumonia ICD Codes: J18.9 - Pneumonia, unspecified organism SNOMED: 490389588 (2) Hypoxia ICD Codes: R09.02 - Hypoxemia SNOMED: 566162063 (3) AMS (altered mental status) ICD Codes: R41.82 - Altered mental status, unspecified SNOMED: 015518324 (4) UTI (urinary tract infection) ICD Codes: N39.0 - Urinary tract infection, site not specified SNOMED: 33859385 (5) Sepsis ICD Codes: A41.9 - Sepsis, unspecified organism SNOMED: 05700079 Status: stable, not improved Assessment/Plan: bipap as needed rate control per cards monitor abg and cxr iv abx per speech rx tube feeds add reglan dvt/stress ulcer prophylaxis monitor lytes ngt feeds bowel regime has advanced directive for dnr grand dtr updated. aware of poor prognosis Chavez Gilmore MD Aug 15, 2020 12:50
[2020-08-15] MEDS ORDERED: Metoclopramide 10mg/2ml Inj IVP PRN (13:00)
[2020-08-15] MEDS ORDERED: D5NS 1000ml IV ONE (13:23)
[2020-08-15] MEDS ORDERED: NS 275ml ONE ×3 (13:23→21:25)
[2020-08-15] MEDS ORDERED: NS 500ML ONE (13:30)
[2020-08-15] MEDS ORDERED: Tubing IV Secondary IV ONE ×2 (13:30→21:25)
[2020-08-15 16:00] VITALS: BP 126/83
--- NOTE | 2020-08-15 16:43 | Infectious Diseases Prog Note ---
Assessment/Plan Assessment/Plan A: 1. Bilateral pneumonia. 2. COVID-19 test is negative. 3. Urinary tract infection. 4. Hypertension. 5. Dementia. 6. Respiratory failure on BIPAP PLAN: 1. continue IV vancomycin & Zosyn. 2. DNR status Subjective ROS Limited/Unobtainable: Yes Constitutional: Denies: fever Neurologic: Reports: confusion, other - on restraint Allergies: Coded Allergies: No Known Allergies (Unverified , 08/02/20) Objective Last 24 Hour Vital Signs Date Time Temp Pulse Resp B/P (MAP) Pulse Ox O2 Delivery O2 Flow Rate FiO2 08/15/20 16:00 Bi-pap 08/15/20 16:00 60 08/15/20 16:00 97.5 78 20 126/83 (97) 94 08/15/20 15:28 74 08/15/20 12:28 73 08/15/20 12:00 Bi-pap 08/15/20 12:00 60 08/15/20 12:00 97.5 84 22 102/41 (61) 97 08/15/20 11:30 67 32 95 60 08/15/20 08:13 84 131/64 08/15/20 08:00 Bi-pap 08/15/20 08:00 96.8 84 18 131/64 (86) 97 08/15/20 08:00 60 08/15/20 07:30 99 Bi-Pap 60 08/15/20 07:30 83 16 99 60 08/15/20 07:22 77 08/15/20 04:00 91 08/15/20 04:00 Bi-pap 08/15/20 04:00 60 08/15/20 04:00 97.2 82 22 113/66 (82) 100 08/15/20 02:55 96 34 99 60 08/15/20 00:18 70 08/15/20 00:00 92 08/15/20 00:00 97.4 89 30 128/67 (87) 96 08/15/20 00:00 Bi-pap 08/14/20 22:51 91 31 99 70 08/14/20 20:02 88 102/54 08/14/20 20:00 94 08/14/20 20:00 Bi-pap 08/14/20 20:00 80 08/14/20 20:00 97.8 89 20 102/54 (70) 100 08/14/20 19:05 92 25 97 80 08/14/20 19:04 97 Bi-Pap 80 08/14/20 17:51 80 Height (Feet): 5 Height (Inches): 5.00 Weight (Pounds): 99 HEENT: mucous membranes moist Respiratory/Chest: decreased breath sounds, other - on BIPAP Cardiovascular: normal rate Abdomen: soft, non tender, other - NG tube Extremities: no edema Neurologic/Psychiatric: other - opens eyes Laboratory Tests Test 08/15/20 06:00 08/15/20 09:40 08/15/20 13:39 Sodium Level 148 MMOL/L (136-145) H Potassium Level 4.1 MMOL/L (3.5-5.1) Chloride Level 110 MMOL/L (98-107) H Carbon Dioxide Level 37 MMOL/L (21-32) H Anion Gap 1 mmol/L (5-15) L Blood Urea Nitrogen 42 mg/dL (7-18) H Creatinine 1.0 MG/DL (0.55-1.30) Estimat Glomerular Filtration Rate > 60 mL/min (>60) Glucose Level 137 MG/DL (74-106) H Calcium Level 8.3 MG/DL (8.5-10.1) L White Blood Count 18.2 K/UL (4.8-10.8) H Red Blood Count 3.80 M/UL (4.70-6.10) L Hemoglobin 11.5 G/DL (14.2-18.0) L Hematocrit 37.0 % (42.0-52.0) L Mean Corpuscular Volume 97 FL (80-99) Mean Corpuscular Hemoglobin 30.3 PG (27.0-31.0) Mean Corpuscular Hemoglobin Concent 31.2 G/DL (32.0-36.0) L Red Cell Distribution Width 13.3 % (11.6-14.8) Platelet Count 172 K/UL (150-450) Mean Platelet Volume 10.0 FL (6.5-10.1) Neutrophils (%) (Auto) % (45.0-75.0) Lymphocytes (%) (Auto) % (20.0-45.0) Monocytes (%) (Auto) % (1.0-10.0) Eosinophils (%) (Auto) % (0.0-3.0) Basophils (%) (Auto) % (0.0-2.0) Differential Total Cells Counted 100 Neutrophils % (Manual) 97 % (45-75) H Lymphocytes % (Manual) 3 % (20-45) L Monocytes % (Manual) 0 % (1-10) L Eosinophils % (Manual) 0 % (0-3) Basophils % (Manual) 0 % (0-2) Band Neutrophils 0 % (0-8) Platelet Estimate Adequate Platelet Morphology Normal Red Blood Cell Morphology Normal Arterial Blood pH 7.389 (7.350-7.450) Arterial Blood Partial Pressure CO2 64.5 mmHg (35.0-45.0) *H Arterial Blood Partial Pressure O2 61.5 mmHg (75.0-100.0) L Arterial Blood HCO3 38.1 mmol/L (22.0-26.0) H Arterial Blood Oxygen Saturation 92.2 % (95-100) L Arterial Blood Base Excess 10.9 (-2-2) *H Emile Test Positive Current Medications Medications (Trade) Dose Ordered Sig/Javon Route PRN Reason Start Time Stop Time Status Last Admin Dose Admin Acetaminophen (Tylenol) 650 mg Q4H PRN ORAL Mild Pain (Pain Scale 1-3) 08/03/20 01:15 09/02/20 01:14 08/12/20 21:42 Acetaminophen (Tylenol) 650 mg Q4H PRN RECTAL Mild Pain (Pain Scale 1-3) 08/03/20 01:15 09/02/20 01:14 08/04/20 18:32 Amiodarone HCl (Cordarone) 200 mg EVERY 12 HOURS NG 08/09/20 21:00 11/03/20 13:14 08/15/20 08:13 Carbidopa/Levodopa (Sinemet 25/100) 1 tab THREE TIMES A DAY NG 08/09/20 18:00 09/02/20 08:59 08/15/20 12:45 Dextrose/Sodium Chloride 1,000 ml @ 60 mls/hr [id number] IV 08/13/20 17:00 09/12/20 16:59 08/15/20 03:00 Docusate Sodium (Colace) 100 mg TWICE A DAY GT 08/12/20 09:00 09/11/20 08:59 08/15/20 08:13 Heparin Sodium (Porcine) (Heparin 5000 units/ml) 5,000 units EVERY 12 HOURS SUBQ 08/03/20 09:00 09/17/20 08:59 08/15/20 08:19 Hydralazine HCl (Apresoline) 25 mg Q6H PRN NG SBP above 160 08/11/20 22:30 11/05/20 00:29 08/12/20 15:09 Magnesium Hydroxide (Mom) 30 ml DAILYPRN PRN GT Constipation 08/12/20 09:00 09/11/20 08:59 Metoclopramide HCl (Reglan) 5 mg Q8H PRN IVP Nausea & Vomiting 08/15/20 13:00 09/14/20 12:59 Metoprolol Tartrate (Lopressor) 25 mg Q12HR NG 08/13/20 09:00 11/11/20 08:59 08/15/20 08:13 Morphine Sulfate (Morphine Sulfate) 1 mg Q4H PRN IVP Moderate Pain (Pain Scale 4-6) 08/09/20 18:30 08/16/20 18:29 Piperacillin Sod/ Tazobactam Sod 3.375 gm/Sodium Chloride 110 ml @ 27.5 mls/hr EVERY 8 HOURS IVPB 08/08/20 14:00 08/17/20 13:59 08/15/20 14:11 Tamsulosin HCl (Flomax) 0.4 mg BEDTIME ORAL 08/03/20 21:00 09/02/20 20:59 08/13/20 20:08 Vancomycin HCl (Vanco pharmacy to dose) 1 ea DAILY PRN MISC Per rx protocol 08/12/20 11:30 09/11/20 11:29 Vancomycin HCl 1 gm/Dextrose 275 ml @ 183.708 mls/hr Q24H IVPB 08/12/20 13:00 08/17/20 12:59 08/15/20 12:47 Baldev Luo MD Aug 15, 2020 16:43
--- NOTE | 2020-08-15 17:10 | NUR ---
NURSE NOTES: Administered meds. Tolerated well. No signs of distress. SpO2 at 96% on BiPAP 20/5 FiO2 60%. threat monitoring analyst showing SR. Will continue plan of care.
[2020-08-15] MEDS ORDERED: Morphine Sulfate 2mg/ml Inj(IV/IM USE ONLY) IVP PRN (18:30)
--- NOTE | 2020-08-15 19:03 | NUR ---
NURSE HAND-OFF REPORT: Important Events on Shift:restarted tube feeds, tolerating, afebrile Patient Status: dnr/dni Diet: osmolite 1.5 @10 Pending Orders: Pending Results/Labs:[] Pending MD notification:[] Latest Vital Signs: Temperature 97.5 , Pulse 78 , B/P 126 /83 , Respiratory Rate 20 , O2 SAT 94 , Bi-pap, O2 Flow Rate 15.0 . Vital Sign Comment: stable EKG Rhythm: Sinus Rhythm Rhythm change?: N Notified?: William Montoya MD Response: Message left await call Latest José Fall Score: 75 Fall Risk: High Risk Safety Measures: Call light Within Reach, Bed Alarm Zone 1, Side Rails Side Rails x3, Bed position Low and Locked. Fall Precautions: Yellow Socks Yellow Gown Door Sign Patient Fall Education Report given to sadiq faust.
--- NOTE | 2020-08-15 19:06 | NUR ---
NURSE NOTES: Received report from Josephine RN and Mitali Rn, pt. in bed awake, with eyes open- appears to be confused, no signs or symptoms of acute cardiac or respiratory distress noted, bed alarm on, side rails up x's3 and safety brakes engaged, call light within easy reach, pt. appears to be sating well on current BIPAP settings 20/5 fio2 at 60%- no distress noted, Overton intact and draining to gravity, pt. appears clean and dry, HOB elevated- aspiration precautions observed, Skin precautions observed, pt. has Rt. Nare NGT running Osmolite 1.5 at 10cc/hr- no residual noted- per endorsement okay for MD Gilmore- to run feeding with BIPAP, left hand 24G IV intact and patent running D5NS at 60cc/hr, Left hand 24G IV intact and patent, safety measures continued, will continue with plan of care.
[2020-08-15 20:00] VITALS: BP 139/70
[2020-08-15] MEDS: Tamsulosin 0.4mg cap ORAL SCH (20:14)
[2020-08-16] VITALS: BP 137/73
--- NOTE | 2020-08-16 01:00 | NUR ---
NURSE NOTES: bed bath given, linens changed, oral care provided, repositioned and turned pt.- pt. appears to be sating well on 2L NC at 97%- no distress noted, aspiration and skin precautions observed, will continue to monitor pt. and with plan of care. Addendum: 08/16/20 at 0201 by CYNTHIA SERNA RN RN correction to message above pt. appears to be sating well on current BIPAP settings- sating at 95%- no distress noted.
--- NOTE | 2020-08-16 01:55 | Cardiology Progress Note ---
Subjective DATE OF SERVICE: Aug 15, 2020 Remains congested and SOB. Was lethargic until placed back on bipap support. NPO due to aspiration risk; NGTube in place. BP readings now stable. ABG (08/15): 7.38/64/61 on VM Monitor: sinus/sinus tachy with rare paroxysmal AFib Spoke to Ruth frank ([phone]) on 08/14/20. Granddtr states patient wanted to live a long life, but not on machines. For now, they want to continue current level of care, but will reassess if condition deteriorates further. Objective Last 24 Hour Vital Signs Date Time Temp Pulse Resp B/P (MAP) Pulse Ox O2 Delivery O2 Flow Rate FiO2 08/16/20 00:00 83 08/16/20 00:00 60 08/16/20 00:00 97.5 83 18 137/73 (94) 95 08/16/20 00:00 Bi-pap 08/15/20 23:30 83 34 93 60 08/15/20 20:56 88 140/80 08/15/20 20:29 89 36 95 60 08/15/20 20:00 98 Bi-Pap 60 08/15/20 20:00 60 08/15/20 20:00 97.8 88 20 139/70 (93) 95 08/15/20 20:00 Bi-pap 08/15/20 20:00 80 08/15/20 16:00 Bi-pap 08/15/20 16:00 60 08/15/20 16:00 97.5 78 20 126/83 (97) 94 08/15/20 15:45 74 40 97 60 08/15/20 15:28 74 08/15/20 12:28 73 08/15/20 12:00 Bi-pap 08/15/20 12:00 60 08/15/20 12:00 97.5 84 22 102/41 (61) 97 08/15/20 11:30 67 32 95 60 08/15/20 08:13 84 131/64 08/15/20 08:00 Bi-pap 08/15/20 08:00 96.8 84 18 131/64 (86) 97 08/15/20 08:00 60 08/15/20 07:30 99 Bi-Pap 60 08/15/20 07:30 83 16 99 60 08/15/20 07:22 77 08/15/20 04:00 91 08/15/20 04:00 Bi-pap 08/15/20 04:00 60 08/15/20 04:00 97.2 82 22 113/66 (82) 100 08/15/20 02:55 96 34 99 60 ROS: unchanged from my evaluation of 08/02/20 HEENT: normal ENT inspection RHYTHM: NSR, PACs LUNGS: bilateral rhonchi CARDIAC: normal S1 and S2, irregularly irregular, systolic murmur - 1/6 systolic murmurat apex, rapid rate ABDOMEN: normal bowel sounds, non tender, soft, no organomegaly EXTREMITIES: normal range of motion, trace edema Laboratory Tests Test 08/15/20 06:00 08/15/20 09:40 08/15/20 13:39 Sodium Level 148 MMOL/L (136-145) H Potassium Level 4.1 MMOL/L (3.5-5.1) Chloride Level 110 MMOL/L (98-107) H Carbon Dioxide Level 37 MMOL/L (21-32) H Anion Gap 1 mmol/L (5-15) L Blood Urea Nitrogen 42 mg/dL (7-18) H Creatinine 1.0 MG/DL (0.55-1.30) Estimat Glomerular Filtration Rate > 60 mL/min (>60) Glucose Level 137 MG/DL (74-106) H Calcium Level 8.3 MG/DL (8.5-10.1) L White Blood Count 18.2 K/UL (4.8-10.8) H Red Blood Count 3.80 M/UL (4.70-6.10) L Hemoglobin 11.5 G/DL (14.2-18.0) L Hematocrit 37.0 % (42.0-52.0) L Mean Corpuscular Volume 97 FL (80-99) Mean Corpuscular Hemoglobin 30.3 PG (27.0-31.0) Mean Corpuscular Hemoglobin Concent 31.2 G/DL (32.0-36.0) L Red Cell Distribution Width 13.3 % (11.6-14.8) Platelet Count 172 K/UL (150-450) Mean Platelet Volume 10.0 FL (6.5-10.1) Neutrophils (%) (Auto) % (45.0-75.0) Lymphocytes (%) (Auto) % (20.0-45.0) Monocytes (%) (Auto) % (1.0-10.0) Eosinophils (%) (Auto) % (0.0-3.0) Basophils (%) (Auto) % (0.0-2.0) Differential Total Cells Counted 100 Neutrophils % (Manual) 97 % (45-75) H Lymphocytes % (Manual) 3 % (20-45) L Monocytes % (Manual) 0 % (1-10) L Eosinophils % (Manual) 0 % (0-3) Basophils % (Manual) 0 % (0-2) Band Neutrophils 0 % (0-8) Platelet Estimate Adequate Platelet Morphology Normal Red Blood Cell Morphology Normal Arterial Blood pH 7.389 (7.350-7.450) Arterial Blood Partial Pressure CO2 64.5 mmHg (35.0-45.0) *H Arterial Blood Partial Pressure O2 61.5 mmHg (75.0-100.0) L Arterial Blood HCO3 38.1 mmol/L (22.0-26.0) H Arterial Blood Oxygen Saturation 92.2 % (95-100) L Arterial Blood Base Excess 10.9 (-2-2) *H Emile Test Positive Assessment/Plan Assessment/Plan Paroxysmal atrial fibrillation with RVR Acute myocardial ischemia with elevated troponin Aspiration risk Sepsis Healthcare acquired PNA Complicated UTI with indwelling catheter Hyponatremia Severe protein calorie malnutrition Acute myocardial ischemia Respiratory failure with hypoxia and hypercarbia - improved today with bipap. Hypokalemia Leukocytosis improving Ac/chronic diastolic CHF Dehydration/hypernatremia CRITICAL & GUARDED Empiric antibiotics Bipap support resumed NGTube feedings DVT prophylaxis Free water replacement; no diuresis at this time. Potassium replacement as needed. Continue amiodarone Titrate anti-HTN regimen, including beta katya. Sarkis Herman MD Aug 16, 2020 01:55
[2020-08-16] MEDS: D5 1/2NS w/KCL 10meq 1,000 ML IV SCH ×2 (02:40→17:11)
[2020-08-16 03:55] VITALS: BP 140/72
[2020-08-16] MEDS: Piperacillin/Tazobactam 3.375 GM in NS 110 ML IVPB SCH ×3 (05:05→21:41)
--- NOTE | 2020-08-16 06:54 | NUR ---
NURSE NOTES: pt. remains stable - repositioned and turned pt. - pt. tolerating current BIPAP settings- sating at 98%- will continue to monitor pt. and plan of care.
[2020-08-16 07:50] LABS: HEMATOCRIT 34.3 % (42.0-52.0); HEMOGLOBIN 11.3 G/DL (14.2-18.0); MEAN CORPUSCULAR VOLUME 94 FL (80-99); PLATELET COUNT 168 K/UL (150-450); RED BLOOD COUNT 3.67 M/UL (4.70-6.10); RED CELL DISTRIBUTION WIDTH 13.9 % (11.6-14.8)
[2020-08-16 08:00] VITALS: BP 140/77
[2020-08-16 08:05] LABS: ALANINE AMINOTRANSFERASE 11 U/L (12-78); ALBUMIN 1.2 G/DL (3.4-5.0); ALBUMIN/GLOBULIN RATIO 0.3 (1.0-2.7); ALKALINE PHOSPHATASE 74 U/L (46-116); ASPARTATE AMINO TRANSFERASE 30 U/L (15-37); BILIRUBIN,TOTAL 0.5 MG/DL (0.2-1.0); BLOOD UREA NITROGEN 41 mg/dL (7-18); CALCIUM 8.1 MG/DL (8.5-10.1); CARBON DIOXIDE 39 MMOL/L (21-32); CHLORIDE 113 MMOL/L (98-107); CREATININE 1.1 MG/DL (0.55-1.30); POTASSIUM 3.2 MMOL/L (3.5-5.1); SODIUM 150 MMOL/L (136-145)
[2020-08-16 08:06] LABS: ANION GAP 0 mmol/L (5-15)
--- NOTE | 2020-08-16 08:21 | NUR ---
NURSE NOTES: DR. Gilmore aware potassium trending down- he will put in orders.
[2020-08-16] MEDS: Amiodarone 200mg tab NG SCH ×2 (08:38→21:38)
[2020-08-16] MEDS: Docusate 100mg/10ml Liq GT SCH ×2 (08:38→17:46)
[2020-08-16] MEDS: Levodopa/Carbidopa 25/100 tab NG SCH ×3 (08:38→17:46)
[2020-08-16] MEDS: Heparin 5000 units/ml inj SUBQ SCH ×2 (08:39→21:40)
--- NOTE | 2020-08-16 08:50 | NUR ---
RD ASSESSMENT & RECOMMENDATIONS SEE CARE ACTIVITY FOR COMPLETE ASSESSMENT DAILY ESTIMATED NEEDS: Needs based on Underweight, pulmonary/ 45kg 30-35 kcals/kg 3977-4462 total kcals 1-1.5 g protein/kg 45-68 g total protein 25-30 mL/kg 5987-3882 total fluid mLs NUTRITION DIAGNOSIS: * Increased kcal/prot needs R/T underweight status, pulmonary status as evidenced by pt @ 73% IBW, w/ BMI of 16.5, low BMI per guidelines, h/o COPD, on venturi mask. * Swallowing difficulty R/T dysphagia as evidenced by s/p failed video swallow study, w/ rec for NPO, s/p NGT insertion. CURRENT TF: Osmolite 1.5 @10 ENTERAL NUTRITION RECOMMENDATIONS: Glucerna 1.2 @ 50ml/hr x 24 hrs to provide 1200ml, 1440kcal, 72g prot, 933ml free water * Initiate Glucerna 1.2 (carb control) @ 10ml/hr x 6hrs * Advance 10ml q 4-6 hrs as tolerated to goal * HOB over 30 degrees * Without IVF, h20 flush of 100ml q 6hrs ADDITIONAL RECOMMENDATIONS: * Wt@ SNF on 07/2900=422chg vs EMR wt of 49.8kg (109.5lbs) vs initial EMR wt of 99lbs -> Rec daily calibrated bedscale wt * Monitor lytes daily w/ TF, replete as needed- high risk for refeeding * Monitor BGs w/ TF, need for carb controlled TF and/or NISS * NOW ON BIPAP, TF AT LOW RATE -Monitor ability to feed at goal.
--- NOTE | 2020-08-16 09:48 | NUR ---
RADIOLOGY NOTE: PORTABLE CHEST X-RAY COMPLTEDT AT 0826 HRS. FA
--- NOTE | 2020-08-16 10:22 | Diagnostic Imaging Report ---
EXAM: XR Chest, 1 View CLINICAL HISTORY: SOB TECHNIQUE: Frontal view of the chest. COMPARISON: Chest x-ray 08/13/20 FINDINGS: Lungs: Diffuse bilateral airspace opacities, slightly more consolidated in the right midlung and left lower lobe. Pleural space: Small left pleural effusion. No pneumothorax. Heart: Unremarkable. No cardiomegaly. Mediastinum: Unremarkable. Bones/joints: Unremarkable. Tubes, lines and devices: Nasogastric tube traverses diaphragm into the stomach. IMPRESSION: 1. Diffuse bilateral airspace opacities, slightly more consolidated in the right midlung and left lower lobe. 2. Small left pleural effusion.
--- NOTE | 2020-08-16 10:36 | NUR ---
NURSE HAND-OFF REPORT: Important Events on Shift:NONE Patient Status: fair Diet: Osmolite 1.5 Pending Orders: Pending Results/Labs: Pending MD notification: Latest Vital Signs: Temperature 97.5 , Pulse 109 , B/P 148 /79 , Respiratory Rate 20 , O2 SAT 100 , Bi-pap, O2 Flow Rate 15.0 . Vital Sign Comment: EKG Rhythm: Sinus Rhythm Rhythm change?: N MD Notified?: MD Response: Latest José Fall Score: 75 Fall Risk: High Risk Safety Measures: Call light Within Reach, Bed Alarm Zone 1, Side Rails Side Rails x3, Bed position Low and Locked. Fall Precautions: Yellow Socks Yellow Gown Door Sign Patient Fall Education Report given to BLANE Sorto, Nurse aware to f/u on any abnormal am labs. pt. remains stable- bedside rounding done.
--- NOTE | 2020-08-16 10:36 | NUR ---
NURSE NOTES: Received report from BLANE Caban. Pt is lying in bed, asleep, on bipap tolerating setting of 20/5, 60& FiO2 with O2 sat of 94%. Vital signs are stable. NG tube on R Nares is intact and patent. Overton catheter is intact and patent. Peripheral line in L hand and R forearm is intact and patent. Bed is locked and in lowest position, bed alarm on, call light is within reached. Will continue to monitor pt. Will continue with the plan of care.
--- NOTE | 2020-08-16 11:07 | NUR ---
NURSE NOTES: Informed Dr. Gilmore of latest labs: Potassium 3.2, Sodium 150. Awaiting reply. will continue to monitor pt.
--- NOTE | 2020-08-16 11:43 | General Progress Note ---
Subjective ROS Limited/Unobtainable: No Constitutional: Reports: malaise, weakness HEENT: Reports: no symptoms Cardiovascular: Reports: no symptoms Respiratory: Reports: cough, shortness of breath Gastrointestinal/Abdominal: Reports: no symptoms Genitourinary: Reports: no symptoms Neurologic/Psychiatric: Reports: pre-existing deficit Endocrine: Reports: no symptoms Hematologic/Lymphatic: Reports: no symptoms Allergies: Coded Allergies: No Known Allergies (Unverified , 08/02/20) All Systems: reviewed and negative except above Subjective stable on bipap. no fevers.tolerating feeds. no fever or chills. no sob. decreased fio2 requirements. sodium trending up Objective Last 24 Hour Vital Signs Date Time Temp Pulse Resp B/P (MAP) Pulse Ox O2 Delivery O2 Flow Rate FiO2 08/16/20 09:27 109 148/79 08/16/20 08:00 60 08/16/20 08:00 97.5 98 20 140/77 (98) 100 08/16/20 08:00 Bi-pap 08/16/20 07:38 96 08/16/20 07:12 97 Bi-Pap 60 08/16/20 07:12 95 33 97 60 08/16/20 04:00 93 08/16/20 04:00 60 08/16/20 04:00 Bi-pap 08/16/20 03:55 97.9 86 22 140/72 (94) 100 08/16/20 03:26 88 36 99 60 08/16/20 00:00 83 08/16/20 00:00 60 08/16/20 00:00 97.5 83 18 137/73 (94) 95 08/16/20 00:00 Bi-pap 08/15/20 23:30 83 34 93 60 08/15/20 20:56 88 140/80 08/15/20 20:29 89 36 95 60 08/15/20 20:00 98 Bi-Pap 60 08/15/20 20:00 60 08/15/20 20:00 97.8 88 20 139/70 (93) 95 08/15/20 20:00 Bi-pap 08/15/20 20:00 80 08/15/20 16:00 Bi-pap 08/15/20 16:00 60 08/15/20 16:00 97.5 78 20 126/83 (97) 94 08/15/20 15:45 74 40 97 60 08/15/20 15:28 74 08/15/20 12:28 73 08/15/20 12:00 Bi-pap 08/15/20 12:00 60 08/15/20 12:00 97.5 84 22 102/41 (61) 97 Intake and Output 08/15/20 08/16/20 19:00 07:00 Intake Total 1172.416 ml 1027.5 ml Output Total 625 ml 375 ml Balance 547.416 ml 652.5 ml Free Water 20 ml 25 ml IV Total 1082.416 ml 882.5 ml Tube Feeding 70 ml 120 ml Output Urine Total 625 ml 375 ml Laboratory Tests 08/15/20 13:39: Arterial Blood pH 7.389, Arterial Blood Partial Pressure CO2 64.5*H, Arterial Blood Partial Pressure O2 61.5L, Arterial Blood HCO3 38.1H, Arterial Blood Oxygen Saturation 92.2L, Arterial Blood Base Excess 10.9*H, Emile Test Positive 08/16/20 07:00: White Blood Count 15.0H, Red Blood Count 3.67L, Hemoglobin 11.3L, Hematocrit 34.3L, Mean Corpuscular Volume 94, Mean Corpuscular Hemoglobin 30.8, Mean Corpuscular Hemoglobin Concent 32.9, Red Cell Distribution Width 13.9, Platelet Count 168, Mean Platelet Volume 8.5, Neutrophils (%) (Auto) , Lymphocytes (%) (Auto) , Monocytes (%) (Auto) , Eosinophils (%) (Auto) , Basophils (%) (Auto) , Differential Total Cells Counted 100, Neutrophils % (Manual) 95H, Lymphocytes % (Manual) 4L, Monocytes % (Manual) 1, Eosinophils % (Manual) 0, Basophils % (Manual) 0, Band Neutrophils 0, Platelet Estimate Adequate, Platelet Morphology Normal, Red Blood Cell Morphology Normal, Sodium Level 150H, Potassium Level 3 .2L, Chloride Level 113H, Carbon Dioxide Level 39H, Anion Gap 0L, Blood Urea Nitrogen 41H, Creatinine 1.1, Estimat Glomerular Filtration Rate > 60, Glucose Level 157H, Calcium Level 8.1L, Total Bilirubin 0.5, Aspartate Amino Transf (AST/SGOT) 30, Alanine Aminotransferase (ALT/SGPT) 11L, Alkaline Phosphatase 74, Total Protein 5.3L, Albumin 1.2L, Globulin 4.1, Albumin/Globulin Ratio 0.3L Height (Feet): 5 Height (Inches): 5.00 Weight (Pounds): 99 Objective General Appearance: WD/WN, confused, thin. on bipap EENT: normal ENT inspection Neck: non-tender, normal alignment, supple Cardiovascular: normal rate, regular rhythm Respiratory/Chest: chest wall non-tender, lungs clear, normal breath sounds, no respiratory distress, no accessory muscle use Abdomen: normal bowel sounds, non tender, soft, no organomegaly Edema: no edema noted Arm (L), no edema noted Arm (R) Assessment/Plan Problem List: (1) Pneumonia ICD Codes: J18.9 - Pneumonia, unspecified organism SNOMED: 983803912 (2) Hypoxia ICD Codes: R09.02 - Hypoxemia SNOMED: 011155003 (3) AMS (altered mental status) ICD Codes: R41.82 - Altered mental status, unspecified SNOMED: 462011259 (4) UTI (urinary tract infection) ICD Codes: N39.0 - Urinary tract infection, site not specified SNOMED: 11352043 (5) Sepsis ICD Codes: A41.9 - Sepsis, unspecified organism SNOMED: 96023797 Status: stable, not improved Assessment/Plan: bipap as needed wean as able rate control monitor abg and cxr iv abx per speech rx tube feeds reglan dvt/stress ulcer prophylaxis monitor lytes ngt feeds bowel regime hypotonic ivf added Chavez Gilmore MD Aug 16, 2020 11:43
[2020-08-16 12:00] VITALS: BP 139/78
[2020-08-16] MEDS: Vancomycin 1gm/D5W 275ml IVPB SCH ×2 (13:11)
--- NOTE | 2020-08-16 14:42 | NUR ---
NURSE NOTES: Called and left a message with Dr. Herman because the pt's O2 saturation decrease to 72% a second after Bipap is remove. Awaiting Dr. Herman's call back. Medication Sinemet was not given. NGT feeding is stopped because placement cannot be confirmed. Will continue to monitor pt.
--- NOTE | 2020-08-16 15:39 | Pulmonology Progress Note ---
Subjective ROS Limited/Unobtainable: No Constitutional: Denies: fever Allergies: Coded Allergies: No Known Allergies (Unverified , 08/02/20) All Systems: reviewed and negative except above Objective Last 24 Hour Vital Signs Date Time Temp Pulse Resp B/P (MAP) Pulse Ox O2 Delivery O2 Flow Rate FiO2 08/16/20 12:00 Bi-pap 08/16/20 12:00 95 08/16/20 12:00 60 08/16/20 12:00 98.0 94 20 139/78 (98) 96 08/16/20 11:02 91 25 96 60 08/16/20 09:27 109 148/79 08/16/20 08:00 60 08/16/20 08:00 97.5 98 20 140/77 (98) 100 08/16/20 08:00 Bi-pap 08/16/20 07:38 96 08/16/20 07:12 97 Bi-Pap 60 08/16/20 07:12 95 33 97 60 08/16/20 04:00 93 08/16/20 04:00 60 08/16/20 04:00 Bi-pap 08/16/20 03:55 97.9 86 22 140/72 (94) 100 08/16/20 03:26 88 36 99 60 08/16/20 00:00 83 08/16/20 00:00 60 08/16/20 00:00 97.5 83 18 137/73 (94) 95 08/16/20 00:00 Bi-pap 08/15/20 23:30 83 34 93 60 08/15/20 20:56 88 140/80 08/15/20 20:29 89 36 95 60 08/15/20 20:00 98 Bi-Pap 60 08/15/20 20:00 60 08/15/20 20:00 97.8 88 20 139/70 (93) 95 08/15/20 20:00 Bi-pap 08/15/20 20:00 80 08/15/20 16:00 Bi-pap 08/15/20 16:00 60 08/15/20 16:00 97.5 78 20 126/83 (97) 94 08/15/20 15:45 74 40 97 60 Intake and Output 08/15/20 08/16/20 19:00 07:00 Intake Total 1172.416 ml 1027.5 ml Output Total 625 ml 375 ml Balance 547.416 ml 652.5 ml Free Water 20 ml 25 ml IV Total 1082.416 ml 882.5 ml Tube Feeding 70 ml 120 ml Output Urine Total 625 ml 375 ml Laboratory Tests 08/16/20 07:00: White Blood Count 15.0H, Red Blood Count 3.67L, Hemoglobin 11.3L, Hematocrit 34.3L, Mean Corpuscular Volume 94, Mean Corpuscular Hemoglobin 30.8, Mean Corpuscular Hemoglobin Concent 32.9, Red Cell Distribution Width 13.9, Platelet Count 168, Mean Platelet Volume 8.5, Neutrophils (%) (Auto) , Lymphocytes (%) (Auto) , Monocytes (%) (Auto) , Eosinophils (%) (Auto) , Basophils (%) (Auto) , Differential Total Cells Counted 100, Neutrophils % (Manual) 95H, Lymphocytes % (Manual) 4L, Monocytes % (Manual) 1, Eosinophils % (Manual) 0, Basophils % (Manual) 0, Band Neutrophils 0, Platelet Estimate Adequate, Platelet Morphology Normal, Red Blood Cell Morphology Normal, Sodium Level 150H, Potassium Level 3.2L, Chloride Level 113H, Carbon Dioxide Level 39H, Anion Gap 0L, Blood Urea Nitrogen 41H, Creatinine 1.1, Estimat Glomerular Filtration Rate > 60, Glucose Level 157H, Calcium Level 8.1L, Total Bilirubin 0.5, Aspartate Amino Transf (AST/SGOT) 30, Alanine Aminotransferase (ALT/SGPT) 11L, Alkaline Phosphatase 74, Total Protein 5.3L, Albumin 1.2L, Globulin 4.1, Albumin/Globulin Ratio 0.3L Current Medications Medications (Trade) Dose Ordered Sig/Javon Route PRN Reason Start Time Stop Time Status Last Admin Dose Admin Acetaminophen (Tylenol) 650 mg Q4H PRN ORAL Mild Pain (Pain Scale 1-3) 08/03/20 01:15 09/02/20 01:14 08/12/20 21:42 Acetaminophen (Tylenol) 650 mg Q4H PRN RECTAL Mild Pain (Pain Scale 1-3) 08/03/20 01:15 09/02/20 01:14 08/04/20 18:32 Amiodarone HCl (Cordarone) 200 mg EVERY 12 HOURS NG 08/09/20 21:00 11/03/20 13:14 08/16/20 08:38 Carbidopa/Levodopa (Sinemet 25/100) 1 tab THREE TIMES A DAY NG 08/09/20 18:00 09/02/20 08:59 08/16/20 13:12 Dextrose 1,000 ml @ 75 mls/hr [id number] IV 08/16/20 12:00 09/15/20 11:59 08/16/20 13:10 Dextrose/ Electrolytes 1,000 ml @ 75 mls/hr [id number] IV 08/16/20 02:30 09/15/20 02:29 08/16/20 02:40 Docusate Sodium (Colace) 100 mg TWICE A DAY GT 08/12/20 09:00 09/11/20 08:59 08/16/20 08:38 Heparin Sodium (Porcine) (Heparin 5000 units/ml) 5,000 units EVERY 12 HOURS SUBQ 08/03/20 09:00 09/17/20 08:59 08/16/20 08:39 Hydralazine HCl (Apresoline) 25 mg Q6H PRN NG SBP above 160 08/11/20 22:30 11/05/20 00:29 08/12/20 15:09 Magnesium Hydroxide (Mom) 30 ml DAILYPRN PRN GT Constipation 08/12/20 09:00 09/11/20 08:59 Metoclopramide HCl (Reglan) 5 mg Q8H PRN IVP Nausea & Vomiting 08/15/20 13:00 09/14/20 12:59 Metoprolol Tartrate (Lopressor) 25 mg Q12HR NG 08/13/20 09:00 11/11/20 08:59 08/16/20 09:27 Morphine Sulfate (Morphine Sulfate) 1 mg Q4H PRN IVP Moderate Pain (Pain Scale 4-6) 08/15/20 18:30 08/22/20 18:29 Piperacillin Sod/ Tazobactam Sod 3.375 gm/Sodium Chloride 110 ml @ 27.5 mls/hr EVERY 8 HOURS IVPB 08/08/20 14:00 08/17/20 13:59 08/16/20 14:27 Tamsulosin HCl (Flomax) 0.4 mg BEDTIME ORAL 08/03/20 21:00 09/02/20 20:59 08/15/20 20:14 Vancomycin HCl (Vanco pharmacy to dose) 1 ea DAILY PRN MISC Per rx protocol 08/12/20 11:30 09/11/20 11:29 Vancomycin HCl 1 gm/Dextrose 275 ml @ 183.708 mls/hr Q24H IVPB 08/12/20 13:00 08/17/20 12:59 08/16/20 13:11 Assessment/Plan Assessment/Plan Pulmonary Progress Note Subjective ROS Limited/Unobtainable: Yes Constitutional: Denies: fever Allergies: Coded Allergies: No Known Allergies (Unverified , 08/02/20) All Systems: reviewed and negative except above Subjective care noted on BIPAP PRN, elevatedCO2 diffuse infiltrates on CXR Objective Vital Signs noted Objective WDWN NAD reduced breath sounds bilaterally [id number] NABS nontender no CCE nonfocal on BIPAP poorly responsive Laboratory Tests noted Medications noted Assessment/Plan Assessment/Plan ASSESSMENT: chronic encephalopathy, dementia, diffuse infiltrates, elevated BNP hypertension, recurrent falls, and urinary tract infection, hypoxemia, probable aspiration pneumonia. PLAN care noted respiratory care as is oxygen and BIPAP on high oxygen needs repeat CXR and ABG noted palliative care recommended doubt any chance of recovery impression, plan, and exam edited and reviewed in detail care discussed with Sarkis Samano MD Aug 16, 2020 15:39
[2020-08-16 16:00] VITALS: BP 153/81
--- NOTE | 2020-08-16 19:48 | NUR ---
NURSE HAND-OFF REPORT: Important Events on Shift: None Patient Status: DNR, DNI Diet: Osmolite 1.5 @ 10cc/hr Pending Orders: N Pending Results/Labs:N Pending MD notification:N Latest Vital Signs: Temperature 99.3 , Pulse 87 , B/P 153 /81 , Respiratory Rate 27 , O2 SAT 94 , Bi-pap, O2 Flow Rate 15.0 . Vital Sign Comment: stable, O2 dec to 88% EKG Rhythm: Sinus Rhythm Rhythm change?: N Notified?: William Montoya MD Response: Message left await call Latest José Fall Score: 75 Fall Risk: High Risk Safety Measures: Call light Within Reach, Bed Alarm Zone 1, Side Rails Side Rails x3, Bed position Low and Locked. Fall Precautions: Yellow Socks Yellow Gown Door Sign Patient Fall Education Report given to BLANE Mendoza.
--- NOTE | 2020-08-16 19:50 | NUR ---
NURSE NOTES: Received patient from AVELINO ARGUELLES. Patient assessed and is noted to be lethargic and unresponsive to stimulus. Patient is on BIPAP 20/5 with FiO2 of 100%. There is an NGT in place,running with Osmolite 1.5 at 10cc/hr without residual .Keep HOB elevated. peripheral IV lines noted that are patent and intact. Patients current Vitals are HR 105 ST, RR 16, SpO2 98%, BP 137/67 and temp of 97.9F. Safety measures in place, will continue to monitor.
[2020-08-16 20:00] VITALS: BP 137/67
[2020-08-16] MEDS: Tamsulosin 0.4mg cap ORAL SCH (21:39)
[2020-08-17] VITALS: BP 123/59
--- NOTE | 2020-08-17 00:22 | Cardiology Progress Note ---
Subjective DATE OF SERVICE: Aug 16, 2020 Remains congested and SOB. Was lethargic until placed back on bipap support; desats immediately off bipap. NPO due to aspiration risk; NGTube in place. BP readings now stable. ABG (08/15): 7.38/64/61 on VM Monitor: sinus/sinus tachy with rare paroxysmal AFib CXR: (08/16) bilateral consolidation slightly worse. Spoke to Ruth frank ([phone]) on 08/14/20. Granddtr states patient wanted to live a long life, but not on machines. For now, they want to continue current level of care, but will reassess if condition deteriorates further. Objective Last 24 Hour Vital Signs Date Time Temp Pulse Resp B/P (MAP) Pulse Ox O2 Delivery O2 Flow Rate FiO2 08/17/20 00:00 100 08/17/20 00:00 97.9 85 16 123/59 (80) 100 08/17/20 00:00 Bi-pap 08/16/20 22:51 88 17 99 100 08/16/20 21:39 91 137/67 08/16/20 20:00 100 08/16/20 20:00 99.0 105 20 137/67 (90) 97 08/16/20 20:00 Bi-pap 08/16/20 20:00 104 08/16/20 18:41 87 27 94 60 08/16/20 18:41 94 Bi-Pap 60 08/16/20 16:00 96 08/16/20 16:00 Bi-pap 08/16/20 16:00 60 08/16/20 16:00 99.3 94 20 153/81 (105) 92 08/16/20 15:28 109 20 93 60 08/16/20 12:00 Bi-pap 08/16/20 12:00 95 08/16/20 12:00 60 08/16/20 12:00 98.0 94 20 139/78 (98) 96 08/16/20 11:02 91 25 96 60 08/16/20 09:27 109 148/79 08/16/20 08:00 60 08/16/20 08:00 97.5 98 20 140/77 (98) 100 08/16/20 08:00 Bi-pap 08/16/20 07:38 96 08/16/20 07:12 97 Bi-Pap 60 08/16/20 07:12 95 33 97 60 08/16/20 04:00 93 08/16/20 04:00 60 08/16/20 04:00 Bi-pap 08/16/20 03:55 97.9 86 22 140/72 (94) 100 08/16/20 03:26 88 36 99 60 ROS: unchanged from my evaluation of 08/02/20 HEENT: normal ENT inspection RHYTHM: NSR, PACs LUNGS: bilateral rhonchi CARDIAC: normal S1 and S2, irregularly irregular, systolic murmur - 1/6 systolic murmurat apex, rapid rate ABDOMEN: normal bowel sounds, non tender, soft, no organomegaly EXTREMITIES: normal range of motion, trace edema Laboratory Tests Test 08/16/20 07:00 White Blood Count 15.0 K/UL (4.8-10.8) H Red Blood Count 3.67 M/UL (4.70-6.10) L Hemoglobin 11.3 G/DL (14.2-18.0) L Hematocrit 34.3 % (42.0-52.0) L Mean Corpuscular Volume 94 FL (80-99) Mean Corpuscular Hemoglobin 30.8 PG (27.0-31.0) Mean Corpuscular Hemoglobin Concent 32.9 G/DL (32.0-36.0) Red Cell Distribution Width 13.9 % (11.6-14.8) Platelet Count 168 K/UL (150-450) Mean Platelet Volume 8.5 FL (6.5-10.1) Neutrophils (%) (Auto) % (45.0-75.0) Lymphocytes (%) (Auto) % (20.0-45.0) Monocytes (%) (Auto) % (1.0-10.0) Eosinophils (%) (Auto) % (0.0-3.0) Basophils (%) (Auto) % (0.0-2.0) Differential Total Cells Counted 100 Neutrophils % (Manual) 95 % (45-75) H Lymphocytes % (Manual) 4 % (20-45) L Monocytes % (Manual) 1 % (1-10) Eosinophils % (Manual) 0 % (0-3) Basophils % (Manual) 0 % (0-2) Band Neutrophils 0 % (0-8) Platelet Estimate Adequate Platelet Morphology Normal Red Blood Cell Morphology Normal Sodium Level 150 MMOL/L (136-145) H Potassium Level 3.2 MMOL/L (3.5-5.1) L Chloride Level 113 MMOL/L (98-107) H Carbon Dioxide Level 39 MMOL/L (21-32) H Anion Gap 0 mmol/L (5-15) L Blood Urea Nitrogen 41 mg/dL (7-18) H Creatinine 1.1 MG/DL (0.55-1.30) Estimat Glomerular Filtration Rate > 60 mL/min (>60) Glucose Level 157 MG/DL (74-106) H Calcium Level 8.1 MG/DL (8.5-10.1) L Total Bilirubin 0.5 MG/DL (0.2-1.0) Aspartate Amino Transf (AST/SGOT) 30 U/L (15-37) Alanine Aminotransferase (ALT/SGPT) 11 U/L (12-78) L Alkaline Phosphatase 74 U/L (46-116) Total Protein 5.3 G/DL (6.4-8.2) L Albumin 1.2 G/DL (3.4-5.0) L Globulin 4.1 g/dL Albumin/Globulin Ratio 0.3 (1.0-2.7) L Assessment/Plan Assessment/Plan Paroxysmal atrial fibrillation with RVR Acute myocardial ischemia with elevated troponin Aspiration risk Sepsis Healthcare acquired PNA Complicated UTI with indwelling catheter Hyponatremia Severe protein calorie malnutrition Acute myocardial ischemia Respiratory failure with hypoxia and hypercarbia - improved today with bipap. Hypokalemia Leukocytosis improving Ac/chronic diastolic CHF Dehydration/hypernatremia CRITICAL & GUARDED Empiric antibiotics Bipap support resumed NGTube feedings DVT prophylaxis Free water replacement; no diuresis at this time. Potassium replacement as needed. Continue amiodarone - dose adjusted Titrate anti-HTN regimen as needed. Will discuss with family again re: supportive care option Sarkis Herman MD Aug 17, 2020 00:22
--- NOTE | 2020-08-17 00:30 | NUR ---
NURSE NOTES: on BIPAP 20/5 100% with no acute distress noted. o2 sat 97-100%. noted slightly chest congestion. Keep HOB elevated. NSR on the athletic monitor with HR of 80s-90s. Afebrile. vss.
--- NOTE | 2020-08-17 03:30 | NUR ---
NURSE NOTES: Performed sponge bath . Patient had small BM. no acute distress noted.
[2020-08-17 04:00] VITALS: BP 151/74
[2020-08-17] MEDS: Piperacillin/Tazobactam 3.375 GM in NS 110 ML IVPB SCH ×3 (05:43→22:44)
[2020-08-17] MEDS: D5 1/2NS w/KCL 10meq 1,000 ML IV SCH (05:43)
[2020-08-17 06:01] LABS: ANION GAP -2 mmol/L (5-15); BLOOD UREA NITROGEN 33 mg/dL (7-18); CALCIUM 7.9 MG/DL (8.5-10.1); CARBON DIOXIDE 39 MMOL/L (21-32); CHLORIDE 112 MMOL/L (98-107); POTASSIUM 3.3 MMOL/L (3.5-5.1); SODIUM 149 MMOL/L (136-145)
--- NOTE | 2020-08-17 07:20 | NUR ---
NURSE NOTES: Received report from BLANE Mendoza. Pt is asleep, arousable to light pain. Appears to be in no cardiac/respiratory distress. radiation monitor shows NSR. Pt is on BiPAP 20/5 FiO2 100%, SpO2 100%, RR 19. NGT is patent and flushes well. No residuals noted. Pt is receiving Osmolite 1.5 10cc/hr through R nares. Overton is draining well to gravity. Low urine output noted. R FA 22g and L hand 24g is asymptomatic and flushes well, running D5W at 75cc/hr. Skin is intact and pulses are present on B UE and B LE. Fall and aspiration risk noted and reinforced. Code status noted and reinforced. HOB is elevated, Side rails x3, call light within reach, bed alarm on, bed locked and in lowest position. Will continue plan of care. Will continue to monitor.
--- NOTE | 2020-08-17 07:40 | NUR ---
NURSE NOTES: Dr. Gilmore at bedside. said he will talk to family about pt's plan for palliative care. Requested potassium for potassium level of 3.3. Will await the order.
--- NOTE | 2020-08-17 07:40 | NUR ---
NURSE HAND-OFF REPORT: Important Events on Shift:N Patient Status: Lethargic on BIPAP Diet:NGT feeding with Osmolite 1.5 at 10cc/hr without residual Pending Orders: n Pending Results/Labs:n Pending MD notification:n Latest Vital Signs: Temperature 97.7 , Pulse 96 , B/P 151 /74 , Respiratory Rate 24 , O2 SAT 98 , Bi-pap, O2 Flow Rate 15.0 . Vital Sign Comment: stable EKG Rhythm: Sinus Rhythm Rhythm change?: N Notified?: William Montoya MD Response: Message left await call Latest José Fall Score: 75 Fall Risk: High Risk Safety Measures: Call light Within Reach, Bed Alarm Zone 1, Side Rails Side Rails x3, Bed position Low and Locked. Fall Precautions: Yellow Socks Yellow Gown Door Sign Patient Fall Education Report given to WALLY GRUBER RN.
[2020-08-17 08:00] VITALS: BP 125/62
[2020-08-17] MEDS: Levodopa/Carbidopa 25/100 tab NG SCH ×3 (08:33→18:17)
[2020-08-17] MEDS: Amiodarone 200mg tab NG SCH (08:33)
[2020-08-17] MEDS: Heparin 5000 units/ml inj SUBQ SCH ×2 (08:36→22:46)
--- NOTE | 2020-08-17 08:45 | NUR ---
NURSE NOTES: Morning meds given. Tolerated well. Pt is asleep and appears to be in no distress. Vital signs are within normal range. Will continue to monitor.
--- NOTE | 2020-08-17 08:59 | Pulmonology Progress Note ---
Subjective ROS Limited/Unobtainable: Yes Constitutional: Reports: fever Allergies: Coded Allergies: No Known Allergies (Unverified , 08/02/20) All Systems: reviewed and negative except above Subjective care noted on BIPAP diffuse infiltrates on CXR poor LOC Objective Last 24 Hour Vital Signs Date Time Temp Pulse Resp B/P (MAP) Pulse Ox O2 Delivery O2 Flow Rate FiO2 08/17/20 08:33 86 125/62 08/17/20 08:00 100 08/17/20 08:00 Bi-pap 08/17/20 08:00 97.7 86 19 125/62 (83) 98 08/17/20 04:00 100 08/17/20 04:00 Bi-pap 08/17/20 04:00 97.7 89 24 151/74 (99) 98 08/17/20 04:00 96 08/17/20 03:30 100 30 93 100 08/17/20 00:00 91 08/17/20 00:00 100 08/17/20 00:00 97.9 85 16 123/59 (80) 100 08/17/20 00:00 Bi-pap 08/16/20 22:51 88 17 99 100 08/16/20 21:39 91 137/67 08/16/20 20:00 100 08/16/20 20:00 99.0 105 20 137/67 (90) 97 08/16/20 20:00 Bi-pap 08/16/20 20:00 104 08/16/20 18:41 87 27 94 60 08/16/20 18:41 94 Bi-Pap 60 08/16/20 16:00 96 08/16/20 16:00 Bi-pap 08/16/20 16:00 60 08/16/20 16:00 99.3 94 20 153/81 (105) 92 08/16/20 15:28 109 20 93 60 08/16/20 12:00 Bi-pap 08/16/20 12:00 95 08/16/20 12:00 60 08/16/20 12:00 98.0 94 20 139/78 (98) 96 08/16/20 11:02 91 25 96 60 08/16/20 09:27 109 148/79 Intake and Output 08/16/20 08/17/20 19:00 07:00 Intake Total 1276.368 ml 1001.0 ml Output Total 550 ml 300 ml Balance 726.368 ml 701.0 ml Free Water 100 ml IV Total 1176.368 ml 821.0 ml Tube Feeding 100 ml 80 ml Output Urine Total 550 ml 300 ml # Bowel Movements 2 Objective WDWN NAD reduced breath sounds bilaterally with scattered rhonchi (not improved) [id number] NABS nontender no CCE nonfocal on BIPAP poorly responsive Laboratory Tests 08/17/20 04:50: Sodium Level 149H, Potassium Level 3.3L, Chloride Level 112H, Carbon Dioxide Level 39H, Anion Gap -2L, Blood Urea Nitrogen 33H, Creatinine 1.0, Estimat Glomerular Filtration Rate > 60, Glucose Level 145H, Calcium Level 7.9L Current Medications Medications (Trade) Dose Ordered Sig/Javon Route PRN Reason Start Time Stop Time Status Last Admin Dose Admin Acetaminophen (Tylenol) 650 mg Q4H PRN ORAL Mild Pain (Pain Scale 1-3) 08/03/20 01:15 09/02/20 01:14 08/12/20 21:42 Acetaminophen (Tylenol) 650 mg Q4H PRN RECTAL Mild Pain (Pain Scale 1-3) 08/03/20 01:15 09/02/20 01:14 08/04/20 18:32 Amiodarone HCl (Cordarone) 200 mg DAILY NG 08/17/20 09:00 11/15/20 08:59 08/17/20 08:33 Carbidopa/Levodopa (Sinemet 25/100) 1 tab THREE TIMES A DAY NG 08/09/20 18:00 09/02/20 08:59 08/17/20 08:33 Dextrose 1,000 ml @ 100 mls/hr Q10H IV 08/16/20 12:00 09/15/20 11:59 08/16/20 13:10 Dextrose/ Electrolytes 1,000 ml @ 75 mls/hr [id number] IV 08/16/20 02:30 09/15/20 02:29 08/17/20 05:43 Heparin Sodium (Porcine) (Heparin 5000 units/ml) 5,000 units EVERY 12 HOURS SUBQ 08/03/20 09:00 09/17/20 08:59 08/17/20 08:36 Hydralazine HCl (Apresoline) 25 mg Q6H PRN NG SBP above 160 08/11/20 22:30 11/05/20 00:29 08/12/20 15:09 Magnesium Hydroxide (Mom) 30 ml DAILYPRN PRN GT Constipation 08/12/20 09:00 09/11/20 08:59 Metoclopramide HCl (Reglan) 5 mg Q8H PRN IVP Nausea & Vomiting 08/15/20 13:00 09/14/20 12:59 Metoprolol Tartrate (Lopressor) 25 mg Q12HR NG 08/13/20 09:00 11/11/20 08:59 08/17/20 08:33 Morphine Sulfate (Morphine Sulfate) 1 mg Q4H PRN IVP Moderate Pain (Pain Scale 4-6) 08/15/20 18:30 08/22/20 18:29 Piperacillin Sod/ Tazobactam Sod 3.375 gm/Sodium Chloride 110 ml @ 27.5 mls/hr EVERY 8 HOURS IVPB 08/08/20 14:00 08/17/20 13:59 08/17/20 05:43 Vancomycin HCl (Vanco pharmacy to dose) 1 ea DAILY PRN MISC Per rx protocol 08/12/20 11:30 09/11/20 11:29 Vancomycin HCl 1 gm/Dextrose 275 ml @ 183.708 mls/hr Q24H IVPB 08/12/20 13:00 08/17/20 12:59 08/16/20 13:11 Assessment/Plan Assessment/Plan ASSESSMENT: chronic encephalopathy, dementia, diffuse infiltrates, elevated BNP hypertension, recurrent falls, and urinary tract infection, hypoxemia, probable aspiration pneumonia. PLAN care noted respiratory care as is oxygen and BIPAP followup CXR and ABG for change palliative care recommended doubt any chance of recovery DNAR impression, plan, and exam edited and reviewed in detail care discussed with Eriberto Gilliland MD Aug 17, 2020 08:59
--- NOTE | 2020-08-17 10:55 | NUR ---
NURSE NOTES: Spoke with granddaughter, Ruth, with updates. Told her of pt's neuro, WBC, ABG, and respiratory status. Family wants to continue current level of care.
--- NOTE | 2020-08-17 11:27 | Infectious Diseases Prog Note ---
Assessment/Plan Assessment/Plan antibiotics : vancomycin iv zosyn A 1. Right-sided pneumonia. 2. COVID-19 test is negative. 3. Urinary tract infection. 4. Hypertension. 5. Dementia. 6. Respiratory failure. 7. leucocytosis increased P 1. continue iv vancomycin, zosyn 2. will follow up cultures 3. poor prognosis Subjective ROS Limited/Unobtainable: Yes Allergies: Coded Allergies: No Known Allergies (Unverified , 08/02/20) Objective Last 24 Hour Vital Signs Date Time Temp Pulse Resp B/P (MAP) Pulse Ox O2 Delivery O2 Flow Rate FiO2 08/17/20 08:33 86 125/62 08/17/20 08:00 100 08/17/20 08:00 Bi-pap 08/17/20 08:00 97.7 86 19 125/62 (83) 98 08/17/20 07:52 85 08/17/20 06:58 87 23 98 100 08/17/20 06:58 98 Bi-Pap 100 08/17/20 04:00 100 08/17/20 04:00 Bi-pap 08/17/20 04:00 97.7 89 24 151/74 (99) 98 08/17/20 04:00 96 08/17/20 03:30 100 30 93 100 08/17/20 00:00 91 08/17/20 00:00 100 08/17/20 00:00 97.9 85 16 123/59 (80) 100 08/17/20 00:00 Bi-pap 08/16/20 22:51 88 17 99 100 08/16/20 21:39 91 137/67 08/16/20 20:00 100 08/16/20 20:00 99.0 105 20 137/67 (90) 97 08/16/20 20:00 Bi-pap 08/16/20 20:00 104 08/16/20 18:41 87 27 94 60 08/16/20 18:41 94 Bi-Pap 60 08/16/20 16:00 96 08/16/20 16:00 Bi-pap 08/16/20 16:00 60 08/16/20 16:00 99.3 94 20 153/81 (105) 92 08/16/20 15:28 109 20 93 60 08/16/20 12:00 Bi-pap 11/29/20 12:00 95 08/16/20 12:00 60 08/16/20 12:00 98.0 94 20 139/78 (98) 96 Height (Feet): 5 Height (Inches): 5.00 Weight (Pounds): 99 HEENT: other - on bipap Respiratory/Chest: lungs clear Cardiovascular: normal rate, regular rhythm, no gallop/murmur Abdomen: soft, non tender Extremities: no edema Laboratory Tests Test 08/17/20 04:50 Sodium Level 149 MMOL/L (136-145) H Potassium Level 3.3 MMOL/L (3.5-5.1) L Chloride Level 112 MMOL/L (98-107) H Carbon Dioxide Level 39 MMOL/L (21-32) H Anion Gap -2 mmol/L (5-15) L Blood Urea Nitrogen 33 mg/dL (7-18) H Creatinine 1.0 MG/DL (0.55-1.30) Estimat Glomerular Filtration Rate > 60 mL/min (>60) Glucose Level 145 MG/DL (74-106) H Calcium Level 7.9 MG/DL (8.5-10.1) L Current Medications Medications (Trade) Dose Ordered Sig/Javon Route PRN Reason Start Time Stop Time Status Last Admin Dose Admin Acetaminophen (Tylenol) 650 mg Q4H PRN ORAL Mild Pain (Pain Scale 1-3) 08/03/20 01:15 09/02/20 01:14 08/12/20 21:42 Acetaminophen (Tylenol) 650 mg Q4H PRN RECTAL Mild Pain (Pain Scale 1-3) 08/03/20 01:15 09/02/20 01:14 08/04/20 18:32 Amiodarone HCl (Cordarone) 200 mg DAILY NG 08/17/20 09:00 11/15/20 08:59 08/17/20 08:33 Carbidopa/Levodopa (Sinemet 25/100) 1 tab THREE TIMES A DAY NG 08/09/20 18:00 09/02/20 08:59 08/17/20 08:33 Dextrose 1,000 ml @ 100 mls/hr Q10H IV 08/16/20 12:00 09/15/20 11:59 08/17/20 10:50 Dextrose/ Electrolytes 1,000 ml @ 75 mls/hr [id number] IV 08/16/20 02:30 09/15/20 02:29 08/17/20 05:43 Heparin Sodium (Porcine) (Heparin 5000 units/ml) 5,000 units EVERY 12 HOURS SUBQ 08/03/20 09:00 09/17/20 08:59 08/17/20 08:36 Hydralazine HCl (Apresoline) 25 mg Q6H PRN NG SBP above 160 08/11/20 22:30 11/05/20 00:29 08/12/20 15:09 Magnesium Hydroxide (Mom) 30 ml DAILYPRN PRN GT Constipation 08/12/20 09:00 09/11/20 08:59 Metoclopramide HCl (Reglan) 5 mg Q8H PRN IVP Nausea & Vomiting 08/15/20 13:00 09/14/20 12:59 Metoprolol Tartrate (Lopressor) 25 mg Q12HR NG 08/13/20 09:00 11/11/20 08:59 08/17/20 08:33 Morphine Sulfate (Morphine Sulfate) 1 mg Q4H PRN IVP Moderate Pain (Pain Scale 4-6) 08/15/20 18:30 08/22/20 18:29 Piperacillin Sod/ Tazobactam Sod 3.375 gm/Sodium Chloride 110 ml @ 27.5 mls/hr EVERY 8 HOURS IVPB 08/08/20 14:00 08/22/20 13:59 08/17/20 05:43 Potassium Chloride 100 ml @ 100 mls/hr Q1HR ONCE IVPB 08/17/20 12:00 08/17/20 12:59 08/17/20 11:05 Vancomycin HCl (Vanco pharmacy to dose) 1 ea DAILY PRN MISC Per rx protocol 08/12/20 11:30 09/11/20 11:29 Vancomycin HCl 1 gm/Dextrose 275 ml @ 183.708 mls/hr Q24H IVPB 08/12/20 13:00 08/22/20 12:59 08/16/20 13:11 Wagner Christensen MD Aug 17, 2020 11:27
--- NOTE | 2020-08-17 11:30 | NUR ---
NURSE NOTES: Pt noted to have removed his BiPAP for 30 seconds. SpO2 went down to 70%. Reapplied BiPAP and SpO2 remains at 98%. Pt is close to the nursing station. Will continue to monitor.
[2020-08-17 11:43] VITALS: BP 149/65
[2020-08-17] MEDS: Vancomycin 1gm/D5W 275ml IVPB SCH ×2 (12:03)
--- NOTE | 2020-08-17 12:19 | NUR ---
NURSE NOTES: KCl 10mEq/100ml x4 IVPB not populating in eMar after hanging 1st dose. Spoke with Stephan in pharmacy, instructed to put in order for KCl 10mEq x3 for the remaining doses.
--- NOTE | 2020-08-17 14:15 | NUR ---
Social Work This SW followed up with granddaughter, Ruth ([phone]) regarding prognosis being poor, per Dr. Herman. Patient has been showing some improvements since last Monday, according to nursing and family reports and Ruth declined Hospice at this time, while requesting to visit here, just in case (patient almost didn't survive last Monday). Nursing informed. Granddaughter explains patient was very active at home, still exercising and stating "I want to live to be 89," prior to going to SNF (was there for five days). Family stating they would like to make all efforts to treat patient, stating they had discussed this with Dr. Herman last Monday.
--- NOTE | 2020-08-17 14:33 | NUR ---
NURSE NOTES: Spoke with Riana, social work coordinator, regarding pt's family visiting due to poor prognosis per Dr. Herman. Spoke with battery charger on duty, confirmed that family can visit to say goodbye in case the pt passes. Awaiting phone call from family to determine the time of visit.
--- NOTE | 2020-08-17 14:56 | NUR ---
NURSE NOTES: Spoke with daughter, Tania. Updated her on her father's status and touched base with visiting time. Family will visit between 1600 and 1730 for 5 minutes to say nenita. Addendum: 08/17/20 at 1507 by Josephine Ngo RN Tania states that she wants her father in BW restraints for his own safety due to history of pulling out medical devices. Also requesting not to administer morphine. Noted and will endorse.
--- NOTE | 2020-08-17 15:00 | NUR ---
RESPIRATORY NOTE: PT RECEIVED STABLE ON BIPAP WITH CURRENT SETTINGS: 20/5, RR: 16, 100%. ALARMS ARE ON AND AUDIBLE. MASK WAS RE-ADJUSTED AND FACE INSPECTED,SKIN BREAKDOWN FOUND ON RIGHT SIDE OF FACE. RN PLACED DRESSING ON WOUND. FACE RE-TAPED. TRIED TO TITRATE FIO2 BUT PT DID NOT TOLERATE. PT STABLE ON 100% NO S/S OF RESPIRATORY DISTRESS NOTED. WILL CONTINUE TO MONITOR.
--- NOTE | 2020-08-17 15:50 | NUR ---
NURSE NOTES: Called RT and attempted to wean FiO2 from 100% to 80%. Pt desaturated from 99% to 89% in less than 20 seconds. BiPAP settings remains at 20/5 100% FiO2. Right cheeks noted to be red with signs of slight skin breakdown. Foam tape changed and reinforced with Optifoam. Will continue to monitor.
[2020-08-17 16:00] VITALS: BP 127/87
--- NOTE | 2020-08-17 16:36 | General Progress Note ---
Subjective ROS Limited/Unobtainable: Yes Constitutional: Reports: malaise, weakness HEENT: Reports: no symptoms Cardiovascular: Reports: no symptoms Respiratory: Reports: cough, shortness of breath, sputum Gastrointestinal/Abdominal: Reports: difficulty swallowing Genitourinary: Reports: no symptoms Neurologic/Psychiatric: Reports: pre-existing deficit Endocrine: Reports: no symptoms Hematologic/Lymphatic: Reports: anemia Allergies: Coded Allergies: No Known Allergies (Unverified , 08/02/20) All Systems: reviewed and negative except above Subjective no change. remains bipap dependent. on iv abx. on hypotonic ivf. Na trending down. poorly responsive. no distress. Objective Last 24 Hour Vital Signs Date Time Temp Pulse Resp B/P (MAP) Pulse Ox O2 Delivery O2 Flow Rate FiO2 08/17/20 16:00 96.7 87 19 127/87 (100) 98 08/17/20 16:00 Bi-pap 08/17/20 16:00 100 08/17/20 12:00 100 08/17/20 12:00 Bi-pap 08/17/20 11:43 75 08/17/20 11:43 97.3 74 20 149/65 (93) 98 08/17/20 08:33 86 125/62 08/17/20 08:00 100 08/17/20 08:00 Bi-pap 08/17/20 08:00 97.7 86 19 125/62 (83) 98 08/17/20 07:52 85 08/17/20 06:58 87 23 98 100 08/17/20 06:58 98 Bi-Pap 100 08/17/20 04:00 100 08/17/20 04:00 Bi-pap 08/17/20 04:00 97.7 89 24 151/74 (99) 98 08/17/20 04:00 96 08/17/20 03:30 100 30 93 100 08/17/20 00:00 91 08/17/20 00:00 100 08/17/20 00:00 97.9 85 16 123/59 (80) 100 08/17/20 00:00 Bi-pap 08/16/20 22:51 88 17 99 100 08/16/20 21:39 91 137/67 08/16/20 20:00 100 08/16/20 20:00 99.0 105 20 137/67 (90) 97 08/16/20 20:00 Bi-pap 08/16/20 20:00 104 08/16/20 18:41 87 27 94 60 08/16/20 18:41 94 Bi-Pap 60 Intake and Output 08/16/20 08/17/20 18:59 06:59 Intake Total 1361.368 ml 813.5 ml Output Total 550 ml Balance 811.368 ml 813.5 ml Free Water 100 ml IV Total 1251.368 ml 643.5 ml Tube Feeding 110 ml 70 ml Output Urine Total 550 ml # Bowel Movements 1 Laboratory Tests 08/17/20 04:50: Sodium Level 149H, Potassium Level 3.3L, Chloride Level 112H, Carbon Dioxide Level 39H, Anion Gap -2L, Blood Urea Nitrogen 33H, Creatinine 1.0, Estimat Glomerular Filtration Rate > 60, Glucose Level 145H, Calcium Level 7.9L 08/17/20 12:10: Vancomycin Level Trough 9.2 Height (Feet): 5 Height (Inches): 5.00 Weight (Pounds): 99 Objective General Appearance: WD/WN, confused, thin. on bipap EENT: normal ENT inspection Neck: non-tender, normal alignment, supple Cardiovascular: normal rate, regular rhythm Respiratory/Chest: chest wall non-tender, lungs clear, normal breath sounds, no respiratory distress, no accessory muscle use Abdomen: normal bowel sounds, non tender, soft, no organomegaly Edema: no edema noted Arm (L), no edema noted Arm (R) Assessment/Plan Problem List: (1) Pneumonia ICD Codes: J18.9 - Pneumonia, unspecified organism SNOMED: 402786632 (2) Hypoxia ICD Codes: R09.02 - Hypoxemia SNOMED: 655809648 (3) AMS (altered mental status) ICD Codes: R41.82 - Altered mental status, unspecified SNOMED: 331506760 (4) UTI (urinary tract infection) ICD Codes: N39.0 - Urinary tract infection, site not specified SNOMED: 11819112 (5) Sepsis ICD Codes: A41.9 - Sepsis, unspecified organism SNOMED: 81000473 Status: stable, not improved Assessment/Plan: bipap as needed wean as able monitor abg and cxr iv abx per ID tube feeds reglan monitor residuals skin care turn q2 repeat sputum cultures very poor prognosis d/w grand dtr multiple times conservative rx Chavez Gilmore MD Aug 17, 2020 16:36
--- NOTE | 2020-08-17 17:30 | NUR ---
NURSE NOTES: Daughter, Tania, and granddaughter, Ruth, at bedside to say goodbye to pt in case of passing. Gave them updates and explained disease process. They said they wish to keep his care at this current level.
--- NOTE | 2020-08-17 19:21 | NUR ---
NURSE HAND-OFF REPORT: Important Events on Shift:[Unable to tolerate BiPAP FiO2 80%] Patient Status: [Stable] Diet: [Osmolite 1.5 10cc/hr] Pending Orders: [CT w/o contrast, head] Pending Results/Labs:[NA] Pending MD notification:[Wound consult needed] Latest Vital Signs: Temperature 96.7 , Pulse 87 , B/P 127 /87 , Respiratory Rate 19 , O2 SAT 98 , Bi-pap, O2 Flow Rate 15.0 . Vital Sign Comment: [Stable] EKG Rhythm: Sinus Rhythm Rhythm change?: N Notified?: William Montoya MD Response: Message left await call Latest José Fall Score: 75 Fall Risk: High Risk Safety Measures: Call light Within Reach, Bed Alarm Zone 1, Side Rails Side Rails x3, Bed position Low and Locked. Fall Precautions: Yellow Socks Yellow Gown Door Sign Patient Fall Education Report given to [Jose Rafael RN].
--- NOTE | 2020-08-17 19:30 | NUR ---
NURSE NOTES: Received report from Josephine Comer RN. Pt asleep in bed, Non responsive to verbal stimuli. On Bipap saturating 100% on settings of 15/5 and 100% fiO2. SR on alarm security or surveillance monitor. Left NGT running osmolite 1.5 at 10 mL. Overton draining well to gravity. Bed kept in lowest and locked position. Bed alarm on. Will continue POC
--- NOTE | 2020-08-17 19:30 | NUR ---
NURSE NOTES: Received report from Josephine Comer RN. Pt asleep in bed. Obtunded. Non responsive to verbal stimuli. On BiPAP saturating 100% with settings of 15/5 with 100% fiO2. SR on nuclear monitoring technician. Left NGT running osmolite 1.5 at 10 mL. Auscultated for placement and confirmed. Overton draining well to gravity. Bed kept in lowest and locked position. Bed alarm on. Will continue POC.
[2020-08-17 20:00] VITALS: BP 129/59
--- NOTE | 2020-08-17 22:57 | Cardiology Progress Note ---
Subjective DATE OF SERVICE: Aug 17, 2020 Remains congested and SOB. Was lethargic until placed back on bipap support; desats immediately off bipap. NPO due to aspiration risk; NGTube in place. BP readings now stable. ABG (08/15): 7.38/64/61 on VM Monitor: sinus/sinus tachy with rare paroxysmal AFib CXR: (08/16) bilateral consolidation slightly worse. Spoke to Ruth frank ([phone]) on 08/14/20. Granddtr states patient wanted to live a long life, but not on machines. For now, they want to continue current level of care, but not ready to transition to palliative care. Objective Last 24 Hour Vital Signs Date Time Temp Pulse Resp B/P (MAP) Pulse Ox O2 Delivery O2 Flow Rate FiO2 08/17/20 21:02 80 08/17/20 20:02 Bi-pap 08/17/20 20:00 100 08/17/20 20:00 96.4 80 16 129/59 (82) 98 08/17/20 19:39 98 Bi-Pap 100 08/17/20 19:38 78 18 98 100 08/17/20 16:00 96.7 87 19 127/87 (100) 98 08/17/20 16:00 Bi-pap 08/17/20 16:00 100 08/17/20 15:23 78 08/17/20 15:00 79 28 94 100 08/17/20 12:00 100 08/17/20 12:00 Bi-pap 08/17/20 11:43 75 08/17/20 11:43 97.3 74 20 149/65 (93) 98 08/17/20 10:32 82 27 94 100 08/17/20 08:33 86 125/62 08/17/20 08:00 100 08/17/20 08:00 Bi-pap 08/17/20 08:00 97.7 86 19 125/62 (83) 98 08/17/20 07:52 85 08/17/20 06:58 87 23 98 100 08/17/20 06:58 98 Bi-Pap 100 08/17/20 04:00 100 08/17/20 04:00 Bi-pap 08/17/20 04:00 97.7 89 24 151/74 (99) 98 08/17/20 04:00 96 08/17/20 03:30 100 30 93 100 08/17/20 00:00 91 08/17/20 00:00 100 08/17/20 00:00 97.9 85 16 123/59 (80) 100 08/17/20 00:00 Bi-pap ROS: unchanged from my evaluation of 08/02/20 HEENT: normal ENT inspection RHYTHM: NSR, PACs LUNGS: bilateral rhonchi CARDIAC: normal S1 and S2, irregularly irregular, systolic murmur - 1/6 systolic murmurat apex, rapid rate ABDOMEN: normal bowel sounds, non tender, soft, no organomegaly EXTREMITIES: normal range of motion, trace edema Laboratory Tests Test 08/17/20 04:50 08/17/20 12:10 Sodium Level 149 MMOL/L (136-145) H Potassium Level 3.3 MMOL/L (3.5-5.1) L Chloride Level 112 MMOL/L (98-107) H Carbon Dioxide Level 39 MMOL/L (21-32) H Anion Gap -2 mmol/L (5-15) L Blood Urea Nitrogen 33 mg/dL (7-18) H Creatinine 1.0 MG/DL (0.55-1.30) Estimat Glomerular Filtration Rate > 60 mL/min (>60) Glucose Level 145 MG/DL (74-106) H Calcium Level 7.9 MG/DL (8.5-10.1) L Vancomycin Level Trough 9.2 ug/mL (5.0-12.0) Assessment/Plan Assessment/Plan Paroxysmal atrial fibrillation with RVR Acute myocardial ischemia with elevated troponin Aspiration risk Sepsis Healthcare acquired PNA Complicated UTI with indwelling catheter Hyponatremia Severe protein calorie malnutrition Acute myocardial ischemia Respiratory failure with hypoxia and hypercarbia - improved today with bipap. Hypokalemia Leukocytosis improving Ac/chronic diastolic CHF Dehydration/hypernatremia CRITICAL & GUARDED Empiric antibiotics Bipap support resumed NGTube feedings DVT prophylaxis Free water replacement; no diuresis at this time. Potassium replacement as needed. Continue amiodarone - dose adjusted Titrate anti-HTN regimen as needed. Will discuss with family again re: supportive care option Sarkis Herman MD Aug 17, 2020 22:57
[2020-08-18] VITALS (7 sets, daily range): BP systolic 101–146; BP diastolic 53–74
--- NOTE | 2020-08-18 | NUR ---
NURSE NOTES: Condition unchanged, VSS afebrile. Remain at 100% saturation 0n 100% bipap. SR on monitoring engineer. In no apparent distress. Will continue POC
[2020-08-18] MEDS: Vancomycin 750 MG in NS 275 ML IVPB SCH ×3 (01:24→23:00)
--- NOTE | 2020-08-18 04:00 | NUR ---
NURSE NOTES: Condition unchanged, VSS afebrile. Remain at 100% saturation 0n Fi02 0f 100% bipap. SR on population health manager. In no apparent distress. Will continue POC
[2020-08-18 05:05] LABS: ANION GAP -1 mmol/L (5-15); BLOOD UREA NITROGEN 32 mg/dL (7-18); CALCIUM 8.1 MG/DL (8.5-10.1); CARBON DIOXIDE 37 MMOL/L (21-32); CHLORIDE 108 MMOL/L (98-107); CREATININE 0.9 MG/DL (0.55-1.30); SODIUM 144 MMOL/L (136-145)
[2020-08-18] MEDS: Piperacillin/Tazobactam 3.375 GM in NS 110 ML IVPB SCH ×3 (05:24→21:00)
--- NOTE | 2020-08-18 06:00 | NUR ---
NURSE NOTES: IV pulled out by pt. PICC ordered per Dr. Gilmore
--- NOTE | 2020-08-18 07:15 | NUR ---
NURSE NOTES: Received patient from BLANE Mantilla. patient is asleep in bed without any respiratory distress. Patient is on BiPap 19/5 satting 100%, tolerating well. NGT is in the right nare, patent and flushing, and tube feeding running at prescribed rate, tolerating well. springer is in place draining well to gravity. Will continue plan of care.
--- NOTE | 2020-08-18 07:15 | NUR ---
HAND-OFF: Report given to Mitali Cummings RN
--- NOTE | 2020-08-18 07:30 | Pulmonology Progress Note ---
Subjective ROS Limited/Unobtainable: Yes Constitutional: Reports: fever Allergies: Coded Allergies: No Known Allergies (Unverified , 08/02/20) All Systems: reviewed and negative except above Subjective care noted on BIPAP diffuse infiltrates on CXR poor LOC Objective Last 24 Hour Vital Signs Date Time Temp Pulse Resp B/P (MAP) Pulse Ox O2 Delivery O2 Flow Rate FiO2 08/18/20 02:56 77 18 100 100 08/18/20 00:00 96.8 75 21 106/57 (73) 96 08/18/20 00:00 Bi-pap 08/18/20 00:00 75 08/17/20 23:39 100 08/17/20 23:10 77 27 94 100 08/17/20 22:44 80 129/59 08/17/20 21:02 80 08/17/20 20:02 Bi-pap 08/17/20 20:00 100 08/17/20 20:00 96.4 80 16 129/59 (82) 98 08/17/20 19:39 98 Bi-Pap 100 08/17/20 19:38 78 18 98 100 08/17/20 16:00 96.7 87 19 127/87 (100) 98 08/17/20 16:00 Bi-pap 08/17/20 16:00 100 08/17/20 15:23 78 08/17/20 15:00 79 28 94 100 08/17/20 12:00 100 08/17/20 12:00 Bi-pap 08/17/20 11:43 75 08/17/20 11:43 97.3 74 20 149/65 (93) 98 08/17/20 10:32 82 27 94 100 08/17/20 08:33 86 125/62 08/17/20 08:00 100 08/17/20 08:00 Bi-pap 08/17/20 08:00 97.7 86 19 125/62 (83) 98 08/17/20 07:52 85 Intake and Output 08/17/20 08/18/20 19:00 07:00 Intake Total 1165 ml 930.0 ml Output Total 400 ml Balance 765 ml 930.0 ml Free Water 20 ml 50 ml IV Total 1025 ml 810.0 ml Tube Feeding 120 ml 70 ml Output Urine Total 400 ml # Bowel Movements 3 2 Objective WDWN NAD reduced breath sounds bilaterally with scattered rhonchi (not improved) [id number] NABS nontender no CCE nonfocal on BIPAP poorly responsive Laboratory Tests 08/17/20 12:10: Vancomycin Level Trough 9.2 08/18/20 02:45: Sodium Level 144, Potassium Level 4.0, Chloride Level 108H, Carbon Dioxide Level 37H, Anion Gap -1L, Blood Urea Nitrogen 32H, Creatinine 0.9, Estimat Glomerular Filtration Rate > 60, Glucose Level 169H, Calcium Level 8.1L Current Medications Medications (Trade) Dose Ordered Sig/Javon Route PRN Reason Start Time Stop Time Status Last Admin Dose Admin Acetaminophen (Tylenol) 650 mg Q4H PRN ORAL Mild Pain (Pain Scale 1-3) 08/03/20 01:15 09/02/20 01:14 08/17/20 15:55 Acetaminophen (Tylenol) 650 mg Q4H PRN RECTAL Mild Pain (Pain Scale 1-3) 08/03/20 01:15 09/02/20 01:14 08/04/20 18:32 Amiodarone HCl (Cordarone) 200 mg DAILY NG 08/17/20 09:00 11/15/20 08:59 08/17/20 08:33 Carbidopa/Levodopa (Sinemet 25/100) 1 tab THREE TIMES A DAY NG 08/09/20 18:00 09/02/20 08:59 08/17/20 18:17 Dextrose 1,000 ml @ 100 mls/hr Q10H IV 08/16/20 12:00 09/15/20 11:59 08/18/20 05:23 Heparin Sodium (Porcine) (Heparin 5000 units/ml) 5,000 units EVERY 12 HOURS SUBQ 08/03/20 09:00 09/17/20 08:59 08/17/20 22:46 Hydralazine HCl (Apresoline) 25 mg Q6H PRN NG SBP above 160 08/11/20 22:30 11/05/20 00:29 08/12/20 15:09 Magnesium Hydroxide (Mom) 30 ml DAILYPRN PRN GT Constipation 08/12/20 09:00 09/11/20 08:59 Metoclopramide HCl (Reglan) 5 mg Q8H PRN IVP Nausea & Vomiting 08/15/20 13:00 09/14/20 12:59 Metoprolol Tartrate (Lopressor) 25 mg Q12HR NG 08/13/20 09:00 11/11/20 08:59 08/17/20 22:44 Morphine Sulfate (Morphine Sulfate) 1 mg Q4H PRN IVP Moderate Pain (Pain Scale 4-6) 08/15/20 18:30 08/22/20 18:29 Piperacillin Sod/ Tazobactam Sod 3.375 gm/Sodium Chloride 110 ml @ 27.5 mls/hr EVERY 8 HOURS IVPB 08/08/20 14:00 08/22/20 13:59 08/18/20 05:24 Vancomycin HCl (Vanco pharmacy to dose) 1 ea DAILY PRN MISC Per rx protocol 08/12/20 11:30 09/11/20 11:29 Vancomycin HCl 750 mg/Sodium Chloride 275 ml @ 183.333 mls/hr Q12HR@0000,1200 IVPB 08/18/20 00:00 08/23/20 00:00 08/18/20 01:24 Assessment/Plan Assessment/Plan ASSESSMENT: chronic encephalopathy, dementia, diffuse infiltrates, elevated BNP hypertension, recurrent falls, and urinary tract infection, hypoxemia, probable aspiration pneumonia. PLAN care noted respiratory care as is oxygen and BIPAP followup CXR and ABG for change palliative care recommended doubt any chance of recovery DNAR impression, plan, and exam edited and reviewed in detail care discussed with Eriberto Gilliland MD Aug 18, 2020 07:30
[2020-08-18] MEDS: Levodopa/Carbidopa 25/100 tab NG SCH ×3 (08:12→16:57)
[2020-08-18] MEDS: Amiodarone 200mg tab NG SCH (08:13)
[2020-08-18] MEDS: Heparin 5000 units/ml inj SUBQ SCH ×2 (08:13→20:24)
--- NOTE | 2020-08-18 08:34 | NUR ---
CASE MANAGEMENT:REVIEW 08/19/20 SI: SEPSIS. PNA. UTI. AMS 97.7 78 21 137/61 100% BIPAP W/100% FIO2 BUN+32 IS: IV VANCOMYCIN Q12 IV ZOSYN Q8HR AMIODARONE NG QD LOPRESSOR NG Q12 IVF@100/HR HEPARIN SQ Q12 : SDU DCP: FROM [facility] REHAB PLAN: FAMILY NOT IN AGREEMENT WITH HOSPICE OR PALLIATIVE CARE
--- NOTE | 2020-08-18 09:15 | General Progress Note ---
Subjective ROS Limited/Unobtainable: Yes Constitutional: Reports: malaise, weakness HEENT: Reports: no symptoms Cardiovascular: Reports: no symptoms Respiratory: Reports: cough, shortness of breath, sputum Gastrointestinal/Abdominal: Reports: difficulty swallowing Genitourinary: Reports: no symptoms Neurologic/Psychiatric: Reports: pre-existing deficit Endocrine: Reports: no symptoms Hematologic/Lymphatic: Reports: anemia Allergies: Coded Allergies: No Known Allergies (Unverified , 08/02/20) All Systems: reviewed and negative except above Subjective no change. remains bipap dependent. on iv abx. on hypotonic ivf. Na improved. poorly responsive. no distress. Objective Last 24 Hour Vital Signs Date Time Temp Pulse Resp B/P (MAP) Pulse Ox O2 Delivery O2 Flow Rate FiO2 08/18/20 08:54 71 08/18/20 08:12 78 137/61 08/18/20 08:00 97.7 78 21 137/61 (86) 100 08/18/20 08:00 100 08/18/20 08:00 Bi-pap 08/18/20 04:00 Bi-pap 08/18/20 04:00 100 08/18/20 04:00 96.8 80 25 119/68 (85) 99 08/18/20 04:00 78 08/18/20 02:56 77 18 100 100 08/18/20 00:00 96.8 75 21 106/57 (73) 96 08/18/20 00:00 Bi-pap 08/18/20 00:00 75 08/17/20 23:39 100 08/17/20 23:10 77 27 94 100 08/17/20 22:44 80 129/59 08/17/20 21:02 80 08/17/20 20:02 Bi-pap 08/17/20 20:00 100 08/17/20 20:00 96.4 80 16 129/59 (82) 98 08/17/20 19:39 98 Bi-Pap 100 08/17/20 19:38 78 18 98 100 08/17/20 16:00 96.7 87 19 127/87 (100) 98 08/17/20 16:00 Bi-pap 08/17/20 16:00 100 08/17/20 15:23 78 08/17/20 15:00 79 28 94 100 08/17/20 12:00 100 08/17/20 12:00 Bi-pap 08/17/20 11:43 75 08/17/20 11:43 97.3 74 20 149/65 (93) 98 08/17/20 10:32 82 27 94 100 Intake and Output 08/17/20 08/18/20 19:00 07:00 Intake Total 1165 ml 1197.5 ml Output Total 400 ml 250 ml Balance 765 ml 947.5 ml Free Water 20 ml 50 ml IV Total 1025 ml 1037.5 ml Tube Feeding 120 ml 110 ml Output Urine Total 400 ml 250 ml # Bowel Movements 3 3 Laboratory Tests 08/17/20 12:10: Vancomycin Level Trough 9.2 08/18/20 02:45: Sodium Level 144, Potassium Level 4.0, Chloride Level 108H, Carbon Dioxide Level 37H, Anion Gap -1L, Blood Urea Nitrogen 32H, Creatinine 0.9, Estimat Glomerular Filtration Rate > 60, Glucose Level 169H, Calcium Level 8.1L Height (Feet): 5 Height (Inches): 5.00 Weight (Pounds): 99 Objective General Appearance: WD/WN, confused, thin. on bipap EENT: normal ENT inspection Neck: non-tender, normal alignment, supple Cardiovascular: normal rate, regular rhythm Respiratory/Chest: chest wall non-tender, lungs clear, normal breath sounds, no respiratory distress, no accessory muscle use Abdomen: normal bowel sounds, non tender, soft, no organomegaly Edema: no edema noted Arm (L), no edema noted Arm (R) Assessment/Plan Problem List: (1) Pneumonia ICD Codes: J18.9 - Pneumonia, unspecified organism SNOMED: 374736883 (2) Hypoxia ICD Codes: R09.02 - Hypoxemia SNOMED: 250485805 (3) AMS (altered mental status) ICD Codes: R41.82 - Altered mental status, unspecified SNOMED: 975572724 (4) UTI (urinary tract infection) ICD Codes: N39.0 - Urinary tract infection, site not specified SNOMED: 84249521 (5) Sepsis ICD Codes: A41.9 - Sepsis, unspecified organism SNOMED: 11100117 Status: stable, not improved Assessment/Plan: bipap as needed wean as able monitor abg and cxr iv abx per ID tube feeds reglan monitor residuals ivf fluids as needed monitor Na skin care turn q2 repeat sputum cultures very poor prognosis d/w grand dtr multiple times conservative rx Chavez Gilmoer MD Aug 18, 2020 09:15
--- NOTE | 2020-08-18 09:40 | NUR ---
RD ASSESSMENT & RECOMMENDATIONS SEE CARE ACTIVITY FOR COMPLETE ASSESSMENT DAILY ESTIMATED NEEDS: Needs based on Underweight, pulmonary/ 45kg 30-35 kcals/kg 1310-0316 total kcals 1-1.5 g protein/kg 45-68 g total protein 25-30 mL/kg 6902-2158 total fluid mLs NUTRITION DIAGNOSIS: * Increased kcal/prot needs R/T underweight status, pulmonary status as evidenced by pt @ 73% IBW, w/ BMI of 16.5, low BMI per guidelines, h/o COPD, on venturi mask. * Swallowing difficulty R/T dysphagia as evidenced by s/p failed video swallow study, w/ rec for NPO, s/p NGT insertion, on NGT feed. CURRENT TF: Osmolite 1.5 @10 ENTERAL NUTRITION RECOMMENDATIONS: Glucerna 1.5 @ 40ml/hr x 24 hrs to provide 960ml, 1440kcal, 79g prot, 729ml free water * Rec TF change to carb controlled TF of Glucerna 1.5 for BG control and for less CO2 output * While on BIPAP- TF rate per MD * Once off BIPAP, rec to increase TF to goal rate ot 40ml/hr x 24 hrs * HOB over 30 degrees/ water flush per MD ADDITIONAL RECOMMENDATIONS: * Wt@ SNF on 07/[id number]=[id number] fluctuating daily wts, rec recalibrated bedscale wt * Monitor lytes daily, replete as needed * PT ON BIPAP, TF AT LOW RATE -Monitor ability to feed at goal. .
--- NOTE | 2020-08-18 11:36 | Infectious Diseases Prog Note ---
Assessment/Plan Assessment/Plan antibiotics : vancomycin iv zosyn A 1. Right-sided pneumonia. 2. COVID-19 test is negative. 3. Urinary tract infection. 4. Hypertension. 5. Dementia. 6. Respiratory failure. 7. leucocytosis improving P 1. continue iv vancomycin, zosyn 2. will follow up cultures 3. poor prognosis Subjective ROS Limited/Unobtainable: Yes Allergies: Coded Allergies: No Known Allergies (Unverified , 08/02/20) Objective Last 24 Hour Vital Signs Date Time Temp Pulse Resp B/P (MAP) Pulse Ox O2 Delivery O2 Flow Rate FiO2 08/18/20 08:54 71 08/18/20 08:12 78 137/61 08/18/20 08:00 97.7 78 21 137/61 (86) 100 08/18/20 08:00 100 08/18/20 08:00 Bi-pap 08/18/20 07:20 75 20 99 100 08/18/20 07:20 99 Bi-Pap 100 08/18/20 04:00 Bi-pap 08/18/20 04:00 100 08/18/20 04:00 96.8 80 25 119/68 (85) 99 08/18/20 04:00 78 08/18/20 02:56 77 18 100 100 08/18/20 00:00 96.8 75 21 106/57 (73) 96 08/18/20 00:00 Bi-pap 08/18/20 00:00 75 08/17/20 23:39 100 08/17/20 23:10 77 27 94 100 08/17/20 22:44 80 129/59 08/17/20 21:02 80 08/17/20 20:02 Bi-pap 08/17/20 20:00 100 08/17/20 20:00 96.4 80 16 129/59 (82) 98 08/17/20 19:39 98 Bi-Pap 100 08/17/20 19:38 78 18 98 100 08/17/20 16:00 96.7 87 19 127/87 (100) 98 08/17/20 16:00 Bi-pap 08/17/20 16:00 100 08/17/20 15:23 78 08/17/20 15:00 79 28 94 100 08/17/20 12:00 100 08/17/20 12:00 Bi-pap 08/17/20 11:43 75 08/17/20 11:43 97.3 74 20 149/65 (93) 98 Height (Feet): 5 Height (Inches): 5.00 Weight (Pounds): 99 HEENT: other - on bipap Respiratory/Chest: lungs clear Cardiovascular: normal rate, regular rhythm, no gallop/murmur Abdomen: soft, non tender Extremities: no edema Laboratory Tests Test 08/17/20 12:10 08/18/20 02:45 Vancomycin Level Trough 9.2 ug/mL (5.0-12.0) Sodium Level 144 MMOL/L (136-145) Potassium Level 4.0 MMOL/L (3.5-5.1) Chloride Level 108 MMOL/L (98-107) H Carbon Dioxide Level 37 MMOL/L (21-32) H Anion Gap -1 mmol/L (5-15) L Blood Urea Nitrogen 32 mg/dL (7-18) H Creatinine 0.9 MG/DL (0.55-1.30) Estimat Glomerular Filtration Rate > 60 mL/min (>60) Glucose Level 169 MG/DL (74-106) H Calcium Level 8.1 MG/DL (8.5-10.1) L Current Medications Medications (Trade) Dose Ordered Sig/Javon Route PRN Reason Start Time Stop Time Status Last Admin Dose Admin Acetaminophen (Tylenol) 650 mg Q4H PRN ORAL Mild Pain (Pain Scale 1-3) 08/03/20 01:15 09/02/20 01:14 08/17/20 15:55 Acetaminophen (Tylenol) 650 mg Q4H PRN RECTAL Mild Pain (Pain Scale 1-3) 08/03/20 01:15 09/02/20 01:14 08/04/20 18:32 Amiodarone HCl (Cordarone) 200 mg DAILY NG 08/17/20 09:00 11/15/20 08:59 08/18/20 08:13 Carbidopa/Levodopa (Sinemet 25/100) 1 tab THREE TIMES A DAY NG 08/09/20 18:00 09/02/20 08:59 08/18/20 08:12 Dextrose 1,000 ml @ 100 mls/hr Q10H IV 08/16/20 12:00 09/15/20 11:59 08/18/20 05:23 Heparin Sodium (Porcine) (Heparin 5000 units/ml) 5,000 units EVERY 12 HOURS SUBQ 08/03/20 09:00 09/17/20 08:59 08/18/20 08:13 Hydralazine HCl (Apresoline) 25 mg Q6H PRN NG SBP above 160 08/11/20 22:30 11/05/20 00:29 08/12/20 15:09 Magnesium Hydroxide (Mom) 30 ml DAILYPRN PRN GT Constipation 08/12/20 09:00 09/11/20 08:59 Metoclopramide HCl (Reglan) 5 mg Q8H PRN IVP Nausea & Vomiting 08/15/20 13:00 09/14/20 12:59 Metoprolol Tartrate (Lopressor) 25 mg Q12HR NG 08/13/20 09:00 11/11/20 08:59 08/18/20 08:12 Morphine Sulfate (Morphine Sulfate) 1 mg Q4H PRN IVP Moderate Pain (Pain Scale 4-6) 08/15/20 18:30 08/22/20 18:29 Piperacillin Sod/ Tazobactam Sod 3.375 gm/Sodium Chloride 110 ml @ 27.5 mls/hr EVERY 8 HOURS IVPB 08/08/20 14:00 08/22/20 13:59 08/18/20 05:24 Vancomycin HCl (Vanco pharmacy to dose) 1 ea DAILY PRN MISC Per rx protocol 08/12/20 11:30 09/11/20 11:29 Vancomycin HCl 750 mg/Sodium Chloride 275 ml @ 183.333 mls/hr Q12HR@0000,1200 IVPB 08/18/20 00:00 08/23/20 00:00 08/18/20 01:24 Wagner Christensen MD Aug 18, 2020 11:36
--- NOTE | 2020-08-18 19:07 | NUR ---
NURSE HAND-OFF REPORT: Important Events on Shift:stable Patient Status:dnr/dni Diet: osmolite 1.5 @10 ml/hr Pending Orders: [] Pending Results/Labs:[] Pending MD notification:[] Latest Vital Signs: Temperature 97.3 , Pulse 90 , B/P 139 /73 , Respiratory Rate 24 , O2 SAT 100 , Bi-pap, O2 Flow Rate 15.0 . Vital Sign Comment: stable EKG Rhythm: Sinus Rhythm Rhythm change?: N Notified?: William Montoya MD Response: Message left await call Latest José Fall Score: 95 Fall Risk: High Risk Safety Measures: Call light Within Reach, Bed Alarm Zone 1, Side Rails Side Rails x3, Bed position Low and Locked. Fall Precautions: Yellow Socks Yellow Gown Door Sign Patient Fall Education Report given to sadiq faust
--- NOTE | 2020-08-18 19:29 | NUR ---
NURSE NOTES: Received report from Lawrence RN and Mitali Rn, pt. in bed awake, with eyes open- appears to be confused, no signs or symptoms of acute cardiac or respiratory distress noted, bed alarm on, side rails up x's3 and safety brakes engaged, call light within easy reach, pt. appears to be sating well on current BIPAP settings 19/5 fio2 at 100%- no distress noted, [place] intact and draining to gravity, pt. appears clean and dry, HOB elevated- aspiration precautions observed, Skin precautions observed, pt. has Rt. Nare NGT running Osmolite 1.5 at 10cc/hr- no residual noted- per endorsement okay for MD Gilmore- to run feeding with BIPAP, pt. appears to be resting comfortably, INÉS 20G IV intact and patent running D5W at 100cc/hr, safety measures continued, will continue with plan of care.
[2020-08-19] VITALS (14 sets, daily range): BP systolic 90–141; BP diastolic 37–95
--- NOTE | 2020-08-19 | NUR ---
NURSE NOTES: bed bath given, linens changed, oral care provided, repositioned and turned pt.- pt. appears to be sating well on current BIPAP settings at 99%- no distress noted, aspiration and skin precautions observed, will continue to monitor pt. and with plan of care.
--- NOTE | 2020-08-19 00:03 | NUR ---
NURSE NOTES: during rounds pt. noted pulling on devices- on trach and IV line- restraints reapplied- bilateral pulses palpable and skin intact- will continue to monitor pt. and with plan of care. Addendum: 08/19/20 at 0007 by CYNTHIA SERNA RN RN correction to message above- entered restraints documentation in wrong pts. chart- pt. is not on restraints- meant for pt. in room 245-2.
--- NOTE | 2020-08-19 00:31 | Cardiology Progress Note ---
Subjective DATE OF SERVICE: Aug 18, 2020 Remains congested and SOB. Still dependent on bipap NPO due to aspiration risk; NGTube in place. BP readings now stable. ABG (08/15): 7.38/64/61 on VM Monitor: sinus/sinus tachy with rare paroxysmal AFib CXR: (08/16) bilateral consolidation slightly worse. No change in care plan noted from family Objective Last 24 Hour Vital Signs Date Time Temp Pulse Resp B/P (MAP) Pulse Ox O2 Delivery O2 Flow Rate FiO2 08/19/20 00:00 100 08/19/20 00:00 Bi-pap 08/18/20 23:52 96.8 87 22 125/72 (89) 100 08/18/20 22:34 89 28 98 80 08/18/20 20:24 79 101/53 08/18/20 20:00 97.9 79 20 101/53 (69) 100 08/18/20 20:00 100 08/18/20 20:00 Bi-pap 08/18/20 19:50 80 08/18/20 19:25 82 21 100 90 08/18/20 19:24 100 Bi-Pap 90 08/18/20 16:00 97.3 90 24 139/73 (95) 100 08/18/20 16:00 90 08/18/20 16:00 100 08/18/20 16:00 Bi-pap 08/18/20 15:20 71 20 99 100 08/18/20 12:00 96.3 87 23 146/74 (98) 100 08/18/20 12:00 Bi-pap 08/18/20 12:00 100 08/18/20 12:00 85 08/18/20 11:20 77 18 99 100 08/18/20 08:54 71 08/18/20 08:12 78 137/61 08/18/20 08:00 97.7 78 21 137/61 (86) 100 08/18/20 08:00 100 08/18/20 08:00 Bi-pap 08/18/20 07:20 75 20 99 100 08/18/20 07:20 99 Bi-Pap 100 08/18/20 04:00 Bi-pap 08/18/20 04:00 100 08/18/20 04:00 96.8 80 25 119/68 (85) 99 08/18/20 04:00 78 12/1/20 02:56 77 18 100 100 ROS: unchanged from my evaluation of 08/02/20 HEENT: normal ENT inspection RHYTHM: NSR, PACs LUNGS: bilateral rhonchi CARDIAC: normal S1 and S2, irregularly irregular, systolic murmur - 1/6 systolic murmurat apex, rapid rate ABDOMEN: normal bowel sounds, non tender, soft, no organomegaly EXTREMITIES: normal range of motion, trace edema Laboratory Tests Test 08/18/20 02:45 Sodium Level 144 MMOL/L (136-145) Potassium Level 4.0 MMOL/L (3.5-5.1) Chloride Level 108 MMOL/L (98-107) H Carbon Dioxide Level 37 MMOL/L (21-32) H Anion Gap -1 mmol/L (5-15) L Blood Urea Nitrogen 32 mg/dL (7-18) H Creatinine 0.9 MG/DL (0.55-1.30) Estimat Glomerular Filtration Rate > 60 mL/min (>60) Glucose Level 169 MG/DL (74-106) H Calcium Level 8.1 MG/DL (8.5-10.1) L Assessment/Plan Assessment/Plan Paroxysmal atrial fibrillation with RVR now controlled on amiodarone Acute myocardial ischemia with elevated troponin Aspiration risk Sepsis Healthcare acquired PNA Complicated UTI with indwelling catheter Hyponatremia Severe protein calorie malnutrition Acute myocardial ischemia Respiratory failure with hypoxia and hypercarbia - improved today with bipap. Hypokalemia Leukocytosis improving Ac/chronic diastolic CHF Dehydration/hypernatremia corrected SERIOUS & GUARDED Empiric antibiotics Bipap support NGTube feedings DVT prophylaxis Free water replacement; no diuresis at this time. Potassium replacement as needed. Continue amiodarone - dose adjusted Titrate anti-HTN regimen as needed. Will continue contact with family re: supportive care option Sarkis Herman MD Aug 19, 2020 00:31
[2020-08-19] MEDS: Piperacillin/Tazobactam 3.375 GM in NS 110 ML IVPB SCH ×3 (05:28→22:11)
--- NOTE | 2020-08-19 06:58 | NUR ---
NURSE HAND-OFF REPORT: Important Events on Shift:none Patient Status: fair Diet: Osmolite 1.5 Pending Orders: Pending Results/Labs: Pending MD notification: Latest Vital Signs: Temperature 96.6 , Pulse 74 , B/P 129 /87 , Respiratory Rate 22 , O2 SAT 98 , Bi-pap, O2 Flow Rate 15.0 . Vital Sign Comment: EKG Rhythm: Sinus Rhythm Rhythm change?: N MD Notified?: MD Response: Latest José Fall Score: 95 Fall Risk: High Risk Safety Measures: Call light Within Reach, Bed Alarm Zone 1, Side Rails Side Rails x3, Bed position Low and Locked. Fall Precautions: Yellow Socks Yellow Gown Door Sign Patient Fall Education Report given to BLANE Mejia- aware to f/u on any abnormal am labs. Addendum: 08/19/20 at 0703 by CYNTHIA SERNA RN RN correction to message above-report given to BLANE Ramírez - assignment changed.
--- NOTE | 2020-08-19 08:45 | General Progress Note ---
Subjective ROS Limited/Unobtainable: No Constitutional: Reports: malaise, weakness HEENT: Reports: no symptoms Cardiovascular: Reports: no symptoms Respiratory: Reports: cough, shortness of breath, sputum Gastrointestinal/Abdominal: Reports: difficulty swallowing Genitourinary: Reports: no symptoms Neurologic/Psychiatric: Reports: pre-existing deficit Endocrine: Reports: no symptoms Hematologic/Lymphatic: Reports: anemia Allergies: Coded Allergies: No Known Allergies (Unverified , 08/02/20) All Systems: reviewed and negative except above Subjective no real change. no fever or chills. no sob. tolerating feeds via ngt. on iv abx. most recent cxr worse. Objective Last 24 Hour Vital Signs Date Time Temp Pulse Resp B/P (MAP) Pulse Ox O2 Delivery O2 Flow Rate FiO2 08/19/20 07:38 96.5 69 25 135/95 (108) 95 08/19/20 04:02 74 08/19/20 04:00 96.6 69 22 129/87 (101) 98 08/19/20 04:00 100 08/19/20 04:00 Bi-pap 08/19/20 03:39 81 33 98 80 08/19/20 00:07 82 08/19/20 00:00 100 08/19/20 00:00 Bi-pap 08/18/20 23:52 96.8 87 22 125/72 (89) 100 08/18/20 22:34 89 28 98 80 08/18/20 20:24 79 101/53 08/18/20 20:00 97.9 79 20 101/53 (69) 100 08/18/20 20:00 100 08/18/20 20:00 Bi-pap 08/18/20 19:50 80 08/18/20 19:25 82 21 100 90 08/18/20 19:24 100 Bi-Pap 90 08/18/20 16:00 97.3 90 24 139/73 (95) 100 08/18/20 16:00 90 08/18/20 16:00 100 08/18/20 16:00 Bi-pap 08/18/20 15:20 71 20 99 100 08/18/20 12:00 96.3 87 23 146/74 (98) 100 08/18/20 12:00 Bi-pap 08/18/20 12:00 100 08/18/20 12:00 85 12/1/20 11:20 77 18 99 100 08/18/20 08:54 71 Intake and Output 08/18/20 08/19/20 19:00 07:00 Intake Total 280 ml 1832.166 ml Output Total 600 ml 300 ml Balance -320 ml 1532.166 ml Free Water 60 ml 30 ml IV Total 100 ml 1682.166 ml Tube Feeding 120 ml 120 ml Output Urine Total 600 ml 300 ml # Bowel Movements 4 3 Height (Feet): 5 Height (Inches): 5.00 Weight (Pounds): 99 Objective General Appearance: WD/WN, confused, thin. on bipap EENT: normal ENT inspection Neck: non-tender, normal alignment, supple Cardiovascular: normal rate, regular rhythm Respiratory/Chest: chest wall non-tender, lungs clear, normal breath sounds, no respiratory distress, no accessory muscle use Abdomen: normal bowel sounds, non tender, soft, no organomegaly Edema: no edema noted Arm (L), no edema noted Arm (R) Assessment/Plan Problem List: (1) Pneumonia ICD Codes: J18.9 - Pneumonia, unspecified organism SNOMED: 677618212 (2) Hypoxia ICD Codes: R09.02 - Hypoxemia SNOMED: 891580837 (3) AMS (altered mental status) ICD Codes: R41.82 - Altered mental status, unspecified SNOMED: 134019518 (4) UTI (urinary tract infection) ICD Codes: N39.0 - Urinary tract infection, site not specified SNOMED: 66894020 (5) Sepsis ICD Codes: A41.9 - Sepsis, unspecified organism SNOMED: 64799275 Status: stable, not improved Assessment/Plan: long d/w family family now reconsidering goals of care states they spoke with pt and he possibly wants everything done including intubation they will meet and discuss again continued current rx ngt feeds monitor cxr abx resp care as needed Chavez Gilmore MD Aug 19, 2020 08:45
[2020-08-19] MEDS: Levodopa/Carbidopa 25/100 tab NG SCH ×3 (08:51→18:21)
[2020-08-19] MEDS: Amiodarone 200mg tab NG SCH (08:52)
[2020-08-19] MEDS: Heparin 5000 units/ml inj SUBQ SCH ×2 (08:53→21:01)
--- NOTE | 2020-08-19 09:40 | Pulmonology Progress Note ---
Subjective ROS Limited/Unobtainable: Yes Constitutional: Reports: fever Allergies: Coded Allergies: No Known Allergies (Unverified , 08/02/20) All Systems: reviewed and negative except above Subjective care noted on BIPAP diffuse infiltrates on CXR poor LOC remains congested Objective Last 24 Hour Vital Signs Date Time Temp Pulse Resp B/P (MAP) Pulse Ox O2 Delivery O2 Flow Rate FiO2 08/19/20 08:52 85 135/95 08/19/20 08:00 Bi-pap 08/19/20 08:00 100 08/19/20 07:38 96.5 69 25 135/95 (108) 95 08/19/20 07:28 93 08/19/20 07:05 96 Bi-Pap 80 08/19/20 07:05 83 35 96 80 08/19/20 04:02 74 08/19/20 04:00 96.6 69 22 129/87 (101) 98 08/19/20 04:00 100 08/19/20 04:00 Bi-pap 08/19/20 03:39 81 33 98 80 08/19/20 00:07 82 08/19/20 00:00 100 08/19/20 00:00 Bi-pap 08/18/20 23:52 96.8 87 22 125/72 (89) 100 08/18/20 22:34 89 28 98 80 08/18/20 20:24 79 101/53 08/18/20 20:00 97.9 79 20 101/53 (69) 100 08/18/20 20:00 100 08/18/20 20:00 Bi-pap 08/18/20 19:50 80 08/18/20 19:25 82 21 100 90 08/18/20 19:24 100 Bi-Pap 90 08/18/20 16:00 97.3 90 24 139/73 (95) 100 08/18/20 16:00 90 08/18/20 16:00 100 08/18/20 16:00 Bi-pap 08/18/20 15:20 71 20 99 100 08/18/20 12:00 96.3 87 23 146/74 (98) 100 08/18/20 12:00 Bi-pap 08/18/20 12:00 100 08/18/20 12:00 85 08/18/20 11:20 77 18 99 100 Intake and Output 08/18/20 08/19/20 19:00 07:00 Intake Total 280 ml 1832.166 ml Output Total 600 ml 300 ml Balance -320 ml 1532.166 ml Free Water 60 ml 30 ml IV Total 100 ml 1682.166 ml Tube Feeding 120 ml 120 ml Output Urine Total 600 ml 300 ml # Bowel Movements 4 3 Objective WDWN NAD reduced breath sounds bilaterally with scattered rhonchi (not improved) [id number] NABS nontender no CCE nonfocal on BIPAP poorly responsive Microbiology Date/Time Source Procedure Growth Status 08/18/20 16:30 Sputum Gram Stain - Final Resulted 08/18/20 16:30 Sputum Sputum Culture Pending Resulted Current Medications Medications (Trade) Dose Ordered Sig/Javon Route PRN Reason Start Time Stop Time Status Last Admin Dose Admin Acetaminophen (Tylenol) 650 mg Q4H PRN ORAL Mild Pain (Pain Scale 1-3) 08/03/20 01:15 09/02/20 01:14 08/17/20 15:55 Acetaminophen (Tylenol) 650 mg Q4H PRN RECTAL Mild Pain (Pain Scale 1-3) 08/03/20 01:15 09/02/20 01:14 08/04/20 18:32 Amiodarone HCl (Cordarone) 200 mg DAILY NG 08/17/20 09:00 11/15/20 08:59 08/19/20 08:52 Carbidopa/Levodopa (Sinemet 25/100) 1 tab THREE TIMES A DAY NG 08/09/20 18:00 09/02/20 08:59 08/19/20 08:51 Dextrose 1,000 ml @ 100 mls/hr Q10H IV 08/16/20 12:00 09/15/20 11:59 08/19/20 01:22 Heparin Sodium (Porcine) (Heparin 5000 units/ml) 5,000 units EVERY 12 HOURS SUBQ 08/03/20 09:00 09/17/20 08:59 08/19/20 08:53 Hydralazine HCl (Apresoline) 25 mg Q6H PRN NG SBP above 160 08/11/20 22:30 11/05/20 00:29 08/12/20 15:09 Magnesium Hydroxide (Mom) 30 ml DAILYPRN PRN GT Constipation 08/12/20 09:00 09/11/20 08:59 Metoclopramide HCl (Reglan) 5 mg Q8H PRN IVP Nausea & Vomiting 08/15/20 13:00 09/14/20 12:59 Metoprolol Tartrate (Lopressor) 25 mg Q12HR NG 08/13/20 09:00 11/11/20 08:59 08/19/20 08:52 Morphine Sulfate (Morphine Sulfate) 1 mg Q4H PRN IVP Moderate Pain (Pain Scale 4-6) 08/15/20 18:30 08/22/20 18:29 08/18/20 16:54 Piperacillin Sod/ Tazobactam Sod 3.375 gm/Sodium Chloride 110 ml @ 27.5 mls/hr EVERY 8 HOURS IVPB 08/08/20 14:00 08/22/20 13:59 08/19/20 05:28 Vancomycin HCl (Vanco pharmacy to dose) 1 ea DAILY PRN MISC Per rx protocol 08/12/20 11:30 09/11/20 11:29 Vancomycin HCl 750 mg/Sodium Chloride 275 ml @ 183.333 mls/hr Q12HR@0000,1200 IVPB 08/18/20 00:00 08/23/20 00:00 08/18/20 23:00 Assessment/Plan Assessment/Plan ASSESSMENT: chronic encephalopathy, dementia, diffuse infiltrates, elevated BNP hypertension, recurrent falls, and urinary tract infection, hypoxemia, probable aspiration pneumonia. PLAN care noted and d/w Dr. Gilmore respiratory care as is oxygen and BIPAP followup CXR and ABG for change palliative care recommended if aggressive therapy wanted, would need trach DNAR impression, plan, and exam edited and reviewed in detail care discussed with Eriberto Gilliland MD Aug 19, 2020 09:40
--- NOTE | 2020-08-19 11:08 | NUR ---
NURSE NOTES: Contacted Dr. Gilmore regarding clarification of code status for the patient. Notified Dr. Gilmore regarding increase in FiO2 to 100%, patient is saturating 91-93%. Awaiting call back.
--- NOTE | 2020-08-19 11:47 | NUR ---
NURSE NOTES: Notified Dr. Gilmore regarding critical ABG results, awaiting call back.
--- NOTE | 2020-08-19 12:03 | Infectious Diseases Prog Note ---
Assessment/Plan Assessment/Plan antibiotics : vancomycin iv zosyn A 1. Right-sided pneumonia. 2. COVID-19 test is negative. 3. Urinary tract infection. 4. Hypertension. 5. Dementia. 6. Respiratory failure. 7. leucocytosis improving P 1. continue iv vancomycin, zosyn 2. will follow up cultures 3. poor prognosis Subjective ROS Limited/Unobtainable: Yes Allergies: Coded Allergies: No Known Allergies (Unverified , 08/02/20) Objective Last 24 Hour Vital Signs Date Time Temp Pulse Resp B/P (MAP) Pulse Ox O2 Delivery O2 Flow Rate FiO2 08/19/20 08:52 85 135/95 08/19/20 08:00 Bi-pap 08/19/20 08:00 100 08/19/20 07:38 96.5 69 25 135/95 (108) 95 08/19/20 07:28 93 08/19/20 07:05 96 Bi-Pap 80 08/19/20 07:05 83 35 96 80 08/19/20 04:02 74 08/19/20 04:00 96.6 69 22 129/87 (101) 98 08/19/20 04:00 100 08/19/20 04:00 Bi-pap 08/19/20 03:39 81 33 98 80 08/19/20 00:07 82 08/19/20 00:00 100 08/19/20 00:00 Bi-pap 08/18/20 23:52 96.8 87 22 125/72 (89) 100 08/18/20 22:34 89 28 98 80 08/18/20 20:24 79 101/53 08/18/20 20:00 97.9 79 20 101/53 (69) 100 08/18/20 20:00 100 08/18/20 20:00 Bi-pap 08/18/20 19:50 80 08/18/20 19:25 82 21 100 90 08/18/20 19:24 100 Bi-Pap 90 08/18/20 16:00 97.3 90 24 139/73 (95) 100 08/18/20 16:00 90 08/18/20 16:00 100 08/18/20 16:00 Bi-pap 08/18/20 15:20 71 20 99 100 Height (Feet): 5 Height (Inches): 5.00 Weight (Pounds): 99 HEENT: other - on bipap Microbiology Date/Time Source Procedure Growth Status 08/18/20 16:30 Sputum Gram Stain - Final Resulted 08/18/20 16:30 Sputum Sputum Culture Pending Resulted Laboratory Tests Test 08/19/20 11:20 08/19/20 11:28 Vancomycin Level Trough Pending Arterial Blood pH 7.259 (7.350-7.450) Arterial Blood Partial Pressure CO2 84.0 mmHg (35.0-45.0) *H Arterial Blood Partial Pressure O2 57.7 mmHg (75.0-100.0) L Arterial Blood HCO3 36.8 mmol/L (22.0-26.0) H Arterial Blood Oxygen Saturation 87.9 % (95-100) *L Arterial Blood Base Excess 6.9 (-2-2) H Emile Test Positive Current Medications Medications (Trade) Dose Ordered Sig/Javon Route PRN Reason Start Time Stop Time Status Last Admin Dose Admin Acetaminophen (Tylenol) 650 mg Q4H PRN ORAL Mild Pain (Pain Scale 1-3) 08/03/20 01:15 09/02/20 01:14 08/17/20 15:55 Acetaminophen (Tylenol) 650 mg Q4H PRN RECTAL Mild Pain (Pain Scale 1-3) 08/03/20 01:15 09/02/20 01:14 08/04/20 18:32 Amiodarone HCl (Cordarone) 200 mg DAILY NG 08/17/20 09:00 11/15/20 08:59 08/19/20 08:52 Carbidopa/Levodopa (Sinemet 25/100) 1 tab THREE TIMES A DAY NG 08/09/20 18:00 09/02/20 08:59 08/19/20 08:51 Dextrose 1,000 ml @ 100 mls/hr Q10H IV 08/16/20 12:00 09/15/20 11:59 08/19/20 01:22 Heparin Sodium (Porcine) (Heparin 5000 units/ml) 5,000 units EVERY 12 HOURS SUBQ 08/03/20 09:00 09/17/20 08:59 08/19/20 08:53 Hydralazine HCl (Apresoline) 25 mg Q6H PRN NG SBP above 160 08/11/20 22:30 11/05/20 00:29 08/12/20 15:09 Magnesium Hydroxide (Mom) 30 ml DAILYPRN PRN GT Constipation 08/12/20 09:00 09/11/20 08:59 Metoclopramide HCl (Reglan) 5 mg Q8H PRN IVP Nausea & Vomiting 08/15/20 13:00 09/14/20 12:59 Metoprolol Tartrate (Lopressor) 25 mg Q12HR NG 08/13/20 09:00 11/11/20 08:59 08/19/20 08:52 Morphine Sulfate (Morphine Sulfate) 1 mg Q4H PRN IVP Moderate Pain (Pain Scale 4-6) 08/15/20 18:30 08/22/20 18:29 08/18/20 16:54 Piperacillin Sod/ Tazobactam Sod 3.375 gm/Sodium Chloride 110 ml @ 27.5 mls/hr EVERY 8 HOURS IVPB 08/08/20 14:00 08/22/20 13:59 08/19/20 05:28 Vancomycin HCl (Vanco pharmacy to dose) 1 ea DAILY PRN MISC Per rx protocol 08/12/20 11:30 09/11/20 11:29 Vancomycin HCl 750 mg/Sodium Chloride 275 ml @ 183.333 mls/hr Q12HR@0000,1200 IVPB 08/18/20 00:00 08/23/20 00:00 08/18/20 23:00 Wagner Christensen MD Aug 19, 2020 12:02
[2020-08-19] MEDS: Vancomycin 750 MG in NS 275 ML IVPB SCH ×2 (12:09→23:51)
--- NOTE | 2020-08-19 12:26 | NUR ---
NURSE NOTES: Spoke with Dr. Gilmore regarding code status for the patient, per MD, the family is still deciding for possible intubation. MD will come back when family have decided. Will continue to monitor.
--- NOTE | 2020-08-19 12:29 | NUR ---
NURSE NOTES: Notified Dr. Valencia regarding possible intubation for patient, awaiting for family's decision.
--- NOTE | 2020-08-19 12:37 | NUR ---
NURSE NOTES: Spoke with patient's granddaughter Ruth Green, regarding code status, per granddaughter "I spoke with my family members and we decided to go ahead with the intubation and do everything we can for my grandfather." Patient's granddaughter also wishes resuscitation for the patient. Notified Dr. Gilmore regarding change of code status. Will carry out order.
--- NOTE | 2020-08-19 13:40 | NUR ---
TRANSFER TO FLOOR: Patient transferred to ICU 246-I. Report given to Suzanne WATKINS. Patient is accompanied by RN and RT. Vital signs are as follows: BP: 136/85, HR: 80, O2: 85% on bipap. Patient will be intubated at ICU bed. Endorsed plan of care.
--- NOTE | 2020-08-19 14:10 | Emergency Room Report ---
Physical Exam Vital Signs Date Time Temp Pulse Resp B/P (MAP) Pulse Ox O2 Delivery O2 Flow Rate FiO2 08/15/20 07:22 77 08/15/20 07:30 16 99 60 08/15/20 07:30 Bi-Pap 08/15/20 08:00 96.8 131/64 (86) Medical Decision Making Diagnostic Impression: Primary Impression: Hypoxia Additional Impressions: AMS (altered mental status) Sepsis UTI (urinary tract infection) Pneumonia ER Course Called to ICU for emergency intubation. Patient recently changed to full CODE STATUS. Had been on BiPAP. Hypoxic 85% with labored breathing on my arrival. Intubated on first attempt under glide scope visualization without complications. Positive misting in the tube, positive color change, equal breath sounds bilaterally. Chest X-Ray Diagnostic Results Chest X-Ray Diagnostic Results : Chest X-Ray Ordered: Yes Indication: Other - Intubation EP Interpretation: Yes Interpretation: no pneumothorax, other - Bilateral infiltrates, endotracheal tube above the juany and below clavicles in satisfactory position Impression: Other - Satisfactory intubation, bilateral pneumonia Last Vital Signs Date Time Temp Pulse Resp B/P (MAP) Pulse Ox O2 Delivery O2 Flow Rate FiO2 08/19/20 12:02 100 08/19/20 12:01 Bi-pap 08/19/20 12:00 97.9 79 25 131/64 (86) 90 Disposition: ADMITTED INPATIENT Condition: Serious Referrals: NON PHYSICIAN (PCP) Procedures Intubation Intubation : Consent: Emergent Intubation Method: orotracheal Tube Size (cm): 7.5 Medications: Etomidate, Rocuronium Breath Sounds after Intubation: equal Intubation Complications: no complications Post Intubation Xray: Yes Progress/Xray Impression: Satisfactory intubation. Bilateral pneumonia. Attempts: One Patient Tolerated: Well Complications: None Tai Piña MD Aug 19, 2020 14:10
--- NOTE | 2020-08-19 14:28 | NUR ---
received pt, fr,sdu on bipap sat 60% on 100% @1415 [address]ub[address] by [address] M[address] STAT PCXR DONE ABG.S WILL FOLLOW UNRESPONSIVE TO VERVAL/
--- NOTE | 2020-08-19 14:46 | NUR ---
CASE MANAGEMENT:REVIEW 08/19/20 SI; RESPIRATORY FAILURE 97.9 79 25 131/64 90% ON BIPAP W/100% FIO2 PCO2+84.0 IS: INTUBATED IV VANCOMYCIN Q12 IV ZOSYN Q8HRS : TRANSFERRED FROM SDU TO ICU
--- NOTE | 2020-08-19 15:50 | NUR ---
SANITATION SUPERINTENDENT NOTE PT is transferred to ICU. SW spoke w/ pt's granddaughter, Ruth Green [phone] confirmed that she is the primary tooth cutter contact wheel as she is bilingual [place]ian and [place]. Pt is from [facility]. Prior to admission at [facility], pt was using a cane to ambulate. Both and daughter have been the decision makers for pt. PT does not have AD/POA. Per Ruth, pt does have mental illness/substance abuse issue. Ruth shared w/ this SW that she spoke w/ Dr. Herman and Dr. Gilmore and discussed prognosis. The family met w/ pt at his bedside on 08/17/20. The family wants to respect pt's wish and continues to express full code for pt. Emergency contact: Ruth Green (granddaughter-primary contact) [phone] Roselyn Last ( - monolingual Estonian) [phone] Dominga Green (daughter -primarily Estonian) [phone]
--- NOTE | 2020-08-19 17:26 | NUR ---
1700 abg result notifeid con,same vent settings
--- NOTE | 2020-08-19 18:10 | Diagnostic Imaging Report ---
Indication: Post intubation Technique: One view of the chest Comparison: 08/16/2020 Findings: Interim endotracheal intubation, endotracheal tube tip projecting approximately 3 cm above the juany in good position. Again demonstrated are bilateral extensive diffuse infiltrates, probably unchanged allowing for differences in technique. Stable satisfactory position of nasogastric tube Impression: Satisfactory endotracheal intubation Probably unchanged bilateral diffuse and extensive infiltrates
--- NOTE | 2020-08-19 19:30 | NUR ---
NURSE NOTES: Received pt in bed, obtunded, on vent via ETT not in any kind of distress at present settings. INÉS G20 intact and patent with D5W infusing at 100cc/hr. FC in place draining yellow turbid urine. NGT on right nostril intact. VSS and pt is SR on the monitor.
--- NOTE | 2020-08-19 22:00 | NUR ---
NURSE NOTES: Pt remains stable with stable VS. Bilateral soft wrist restraints applied after obtaining order from Dr. Herman as pt is trying to pull on his ETT. Will continnue to monitor pt.
[2020-08-20] VITALS (25 sets, daily range): BP systolic 85–154; BP diastolic 36–105
--- NOTE | 2020-08-20 | NUR ---
NURSE NOTES: PT remains stable. VSS. Pt turned from side to side
--- NOTE | 2020-08-20 02:00 | Cardiology Progress Note ---
Subjective DATE OF SERVICE: Aug 19, 2020 Increasing respiratory distress with worsening respiratory acidosis despite bipap - req'd intubation and now mechanical ventilation. BP readings now stable. ABG (08/19): 7.44/45/78 on ventilator Monitor: sinus/sinus tachy with rare paroxysmal AFib CXR: (08/19) bilateral consolidation No change in care plan noted from family - they now reaffirm FULL code status Objective Last 24 Hour Vital Signs Date Time Temp Pulse Resp B/P (MAP) Pulse Ox O2 Delivery O2 Flow Rate FiO2 08/20/20 00:24 96 32 100 08/20/20 00:00 91 29 138/44 (75) 98 08/20/20 00:00 Mechanical Ventilator Mechanical Ventilator 08/20/20 00:00 100 08/19/20 23:00 90 32 141/51 (81) 97 08/19/20 22:00 78 23 111/45 (67) 99 08/19/20 21:00 71 95/35 08/19/20 21:00 71 22 106/37 (60) 99 08/19/20 20:00 100 08/19/20 20:00 98.5 81 23 104/39 (60) 97 08/19/20 20:00 Mechanical Ventilator Mechanical Ventilator 08/19/20 19:58 81 23 100 08/19/20 19:00 80 23 134/47 (76) 96 08/19/20 18:00 68 20 107/38 (61) 96 08/19/20 17:30 77 19 104/46 (65) 95 08/19/20 17:00 67 16 90/39 (56) 100 08/19/20 16:00 Bi-pap 08/19/20 16:00 71 08/19/20 16:00 97.4 71 24 97/82 (87) 100 08/19/20 15:00 73 25 98/51 (67) 100 08/19/20 14:00 97.0 77 20 93/43 (60) 100 08/19/20 14:00 100 08/19/20 14:00 82 20 100 08/19/20 12:02 100 08/19/20 12:01 Bi-pap 08/19/20 12:00 97.9 79 25 131/64 (86) 90 08/19/20 11:43 77 08/19/20 08:52 85 135/95 08/19/20 08:00 Bi-pap 08/19/20 08:00 100 08/19/20 07:38 96.5 69 25 135/95 (108) 95 08/19/20 07:28 93 08/19/20 07:05 96 Bi-Pap 80 08/19/20 07:05 83 35 96 80 08/19/20 04:02 74 08/19/20 04:00 96.6 69 22 129/87 (101) 98 08/19/20 04:00 100 08/19/20 04:00 Bi-pap 08/19/20 03:39 81 33 98 80 ROS: unchanged from my evaluation of 08/02/20 HEENT: Orally intubated, Mechanically Ventilated, Thick Secretions ET Tube RHYTHM: NSR, PACs LUNGS: bilateral rhonchi CARDIAC: normal S1 and S2, irregularly irregular, systolic murmur - 1/6 systolic murmurat apex, rapid rate ABDOMEN: normal bowel sounds, non tender, soft, no organomegaly, other - NGTube EXTREMITIES: normal range of motion, trace edema Laboratory Tests Test 08/19/20 11:20 08/19/20 11:28 08/19/20 15:25 Vancomycin Level Trough 18.1 ug/mL (5.0-12.0) H Arterial Blood pH 7.259 (7.350-7.450) 7.445 (7.350-7.450) Arterial Blood Partial Pressure CO2 84.0 mmHg (35.0-45.0) *H 45.5 mmHg (35.0-45.0) H Arterial Blood Partial Pressure O2 57.7 mmHg (75.0-100.0) L 77.7 mmHg (75.0-100.0) Arterial Blood HCO3 36.8 mmol/L (22.0-26.0) H 30.6 mmol/L (22.0-26.0) H Arterial Blood Oxygen Saturation 87.9 % (95-100) *L 96.5 % (95-100) Arterial Blood Base Excess 6.9 (-2-2) H 5.8 (-2-2) H Emile Test Positive Positive Microbiology Date/Time Source Procedure Growth Status 08/18/20 16:30 Sputum Gram Stain - Final Resulted 08/18/20 16:30 Sputum Sputum Culture Pending Resulted Assessment/Plan Assessment/Plan Paroxysmal atrial fibrillation with RVR now controlled on amiodarone Acute myocardial ischemia with elevated troponin Aspiration risk Sepsis Healthcare acquired PNA Complicated UTI with indwelling catheter Hyponatremia Severe protein calorie malnutrition Acute myocardial ischemia Respiratory failure with hypoxia and hypercarbia - now on mech ventilation Hypokalemia Leukocytosis improving Ac/chronic diastolic CHF Dehydration/hypernatremia corrected CRITICAL & GUARDED Empiric antibiotics Vent support NGTube feedings DVT prophylaxis Free water replacement; no diuresis at this time. Potassium replacement as needed. Continue amiodarone - dose adjusted Titrate anti-HTN regimen as needed. Sarkis Herman MD Aug 20, 2020 02:00
--- NOTE | 2020-08-20 04:41 | NUR ---
NURSE NOTES: Received pt in bed, obtunded, on vent via ETT not in any kind of distress at present settings. INÉS G20 intact and patent with D5W infusing at 100cc/hr. FC in place draining yellow turbid urine. NGT on right nostril intact. VSS and pt is SR on the monitor. Addendum: 08/20/20 at 0448 by KATHERIN KATZ RN RN Pt remains stable. VSS remain stable. Pt remains NSR on the monitor. Addendum: 08/20/20 at 0450 by KATHERIN KATZ RN RN previous note was put in error.
[2020-08-20 05:44] LABS: ALANINE AMINOTRANSFERASE 16 U/L (12-78); ALBUMIN 0.8 G/DL (3.4-5.0); ALBUMIN/GLOBULIN RATIO 0.2 (1.0-2.7); ALKALINE PHOSPHATASE 59 U/L (46-116); ANION GAP 1 mmol/L (5-15); ASPARTATE AMINO TRANSFERASE 28 U/L (15-37); BILIRUBIN,TOTAL 0.5 MG/DL (0.2-1.0); BLOOD UREA NITROGEN 32 mg/dL (7-18); CALCIUM 7.4 MG/DL (8.5-10.1); CARBON DIOXIDE 32 MMOL/L (21-32); CHLORIDE 100 MMOL/L (98-107); POTASSIUM 3.8 MMOL/L (3.5-5.1); SODIUM 133 MMOL/L (136-145)
--- NOTE | 2020-08-20 06:00 | NUR ---
NURSE NOTES: Pt remains stable with stable VS. Pt repositioned after bed bath was give, Tube feeding started as ordered via NGT.
[2020-08-20 06:03] LABS: HEMOGLOBIN 9.1 G/DL (14.2-18.0); MEAN CORPUSCULAR VOLUME 89 FL (80-99); PLATELET COUNT 156 K/UL (150-450); RED BLOOD COUNT 3.02 M/UL (4.70-6.10); RED CELL DISTRIBUTION WIDTH 13.2 % (11.6-14.8); WHITE BLOOD COUNT 14.2 K/UL (4.8-10.8)
[2020-08-20] MEDS: Piperacillin/Tazobactam 3.375 GM in NS 110 ML IVPB SCH ×3 (06:12→20:07)
--- NOTE | 2020-08-20 07:15 | NUR ---
NURSE NOTES:RECEIVED REPORT FROM SHON ARGUELLES FROM REGISTRY . RECEIVED PT WITH HOB ELEVATED 45 DEGREE ,OBTUNDED ORALLY INTUBATED ,ET SIZE 7.5 ON MID LIP 25CM WELL SECURED AND CONNECTED TO VENTILATOR.PT TOLERATED WELL CURRENTS VENT SETTINGS TV 500, AC 20,PEEP 5, FIO2 100%. RENDERED ORAL CARE AND SUCTIONED MOD AMT OF YELLOWISH SECRETIONS NOTED.NGT INSERTED ON RT NARES PATENT , NO RESIDUAL NOTED AT THIS TIME. PT RECEIVING OSMOLITE @ 10CC/HRS TOLERATING WELL. F/C DRAINING WELL YELLOW URINE COLOR. H.L ON LT UA G#20 PATENT RECEIVING D5 WATER @ 100CC/HRS. PT WITH BILAT SOFT WRIST RESTRAINTS IN PLACE TO PREVENT THE PT TO PULL MEDICAL DEVICES. PT WITH LOW GRADE FEVER 99.[address] OGLESBY AT BED SIDE MADE AWARE AND NOTIFIED. PT REPOSITIONED IN BED AND PROVIDE ROM TO ALL EXT,S. FULL BODY ASSESSMENT DONE. WILL CONT TO MONITOR.
--- NOTE | 2020-08-20 07:39 | NUR ---
HAND-OFF: Report given to BLANE Purvis.
--- NOTE | 2020-08-20 08:48 | Infectious Diseases Prog Note ---
Assessment/Plan Assessment/Plan A: 1. Bilateral pneumonia. 2. COVID-19 test is negative. 3. Urinary tract infection. 4. Hypertension. 5. Dementia. 6. Respiratory failure intubated 7. Parkinson's disease PLAN: 1. continue IV vancomycin & Zosyn. 2. Poor prognosis Subjective ROS Limited/Unobtainable: Yes Constitutional: Denies: fever Allergies: Coded Allergies: No Known Allergies (Unverified , 08/02/20) Objective Last 24 Hour Vital Signs Date Time Temp Pulse Resp B/P (MAP) Pulse Ox O2 Delivery O2 Flow Rate FiO2 08/20/20 07:05 94 26 100 08/20/20 06:51 80 27 126/42 (70) 99 08/20/20 06:00 79 22 86/38 (54) 100 08/20/20 05:00 78 25 108/42 (64) 97 08/20/20 04:00 Mechanical Ventilator Mechanical Ventilator 08/20/20 04:00 99.5 102/38 (59) 08/20/20 04:00 80 08/20/20 04:00 100 08/20/20 03:06 78 25 100 08/20/20 03:00 80 22 103/40 (61) 100 08/20/20 02:00 81 26 120/39 (66) 96 08/20/20 01:00 78 24 95/38 (57) 100 08/20/20 00:24 96 32 100 08/20/20 00:00 98.7 91 29 138/44 (75) 98 08/20/20 00:00 Mechanical Ventilator Mechanical Ventilator 08/20/20 00:00 100 08/20/20 00:00 89 08/19/20 23:00 90 32 141/51 (81) 97 08/19/20 22:00 78 23 111/45 (67) 99 08/19/20 21:00 71 95/35 08/19/20 21:00 71 22 106/37 (60) 99 08/19/20 20:00 100 08/19/20 20:00 80 08/19/20 20:00 98.5 81 23 104/39 (60) 97 08/19/20 20:00 Mechanical Ventilator Mechanical Ventilator 08/19/20 19:58 81 23 100 08/19/20 19:00 80 23 134/47 (76) 96 08/19/20 18:00 68 20 107/38 (61) 96 08/19/20 17:30 77 19 104/46 (65) 95 08/19/20 17:00 67 16 90/39 (56) 100 08/19/20 16:00 Bi-pap 08/19/20 16:00 71 08/19/20 16:00 97.4 71 24 97/82 (87) 100 08/19/20 15:00 73 25 98/51 (67) 100 08/19/20 14:00 97.0 77 20 93/43 (60) 100 08/19/20 14:00 100 08/19/20 14:00 82 20 100 08/19/20 12:02 100 08/19/20 12:01 Bi-pap 08/19/20 12:00 97.9 79 25 131/64 (86) 90 08/19/20 11:43 77 08/19/20 08:52 85 135/95 Height (Feet): 5 Height (Inches): 5.00 Weight (Pounds): 99 HEENT: other - orally intubated Respiratory/Chest: lungs clear, other - on ventilator, CPB=707% Cardiovascular: normal rate, other - Left arm PICC line Abdomen: soft, non tender Extremities: other - hands edema Neurologic/Psychiatric: unresponsiveness Microbiology Date/Time Source Procedure Growth Status 08/18/20 16:30 Sputum Gram Stain - Final Resulted 08/18/20 16:30 Sputum Sputum Culture Pending Resulted Laboratory Tests Test 08/19/20 11:20 08/19/20 11:28 08/19/20 15:25 08/20/20 04:25 Vancomycin Level Trough 18.1 ug/mL (5.0-12.0) H Arterial Blood pH 7.259 (7.350-7.450) 7.445 (7.350-7.450) Arterial Blood Partial Pressure CO2 84.0 mmHg (35.0-45.0) *H 45.5 mmHg (35.0-45.0) H Arterial Blood Partial Pressure O2 57.7 mmHg (75.0-100.0) L 77.7 mmHg (75.0-100.0) Arterial Blood HCO3 36.8 mmol/L (22.0-26.0) H 30.6 mmol/L (22.0-26.0) H Arterial Blood Oxygen Saturation 87.9 % (95-100) *L 96.5 % (95-100) Arterial Blood Base Excess 6.9 (-2-2) H 5.8 (-2-2) H Emile Test Positive Positive White Blood Count 14.2 K/UL (4.8-10.8) H Red Blood Count 3.02 M/UL (4.70-6.10) L Hemoglobin 9.1 G/DL (14.2-18.0) L Hematocrit 27.0 % (42.0-52.0) L Mean Corpuscular Volume 89 FL (80-99) Mean Corpuscular Hemoglobin 30.2 PG (27.0-31.0) Mean Corpuscular Hemoglobin Concent 33.8 G/DL (32.0-36.0) Red Cell Distribution Width 13.2 % (11.6-14.8) Platelet Count 156 K/UL (150-450) Mean Platelet Volume 10.5 FL (6.5-10.1) H Neutrophils (%) (Auto) % (45.0-75.0) Lymphocytes (%) (Auto) % (20.0-45.0) Monocytes (%) (Auto) % (1.0-10.0) Eosinophils (%) (Auto) % (0.0-3.0) Basophils (%) (Auto) % (0.0-2.0) Neutrophils % (Manual) Pending Lymphocytes % (Manual) Pending Platelet Estimate Pending Platelet Morphology Pending Sodium Level 133 MMOL/L (136-145) L Potassium Level 3.8 MMOL/L (3.5-5.1) Chloride Level 100 MMOL/L (98-107) Carbon Dioxide Level 32 MMOL/L (21-32) Anion Gap 1 mmol/L (5-15) L Blood Urea Nitrogen 32 mg/dL (7-18) H Creatinine 1.0 MG/DL (0.55-1.30) Estimat Glomerular Filtration Rate > 60 mL/min (>60) Glucose Level 91 MG/DL (74-106) Calcium Level 7.4 MG/DL (8.5-10.1) L Total Bilirubin 0.5 MG/DL (0.2-1.0) Aspartate Amino Transf (AST/SGOT) 28 U/L (15-37) Alanine Aminotransferase (ALT/SGPT) 16 U/L (12-78) Alkaline Phosphatase 59 U/L (46-116) Total Protein 4.3 G/DL (6.4-8.2) L Albumin 0.8 G/DL (3.4-5.0) L Globulin 3.5 g/dL Albumin/Globulin Ratio 0.2 (1.0-2.7) L Current Medications Medications (Trade) Dose Ordered Sig/Javon Route PRN Reason Start Time Stop Time Status Last Admin Dose Admin Acetaminophen (Tylenol) 650 mg Q4H PRN ORAL Mild Pain (Pain Scale 1-3) 08/03/20 01:15 09/02/20 01:14 08/17/20 15:55 Acetaminophen (Tylenol) 650 mg Q4H PRN RECTAL Mild Pain (Pain Scale 1-3) 08/03/20 01:15 09/02/20 01:14 08/04/20 18:32 Amiodarone HCl (Cordarone) 200 mg DAILY NG 08/17/20 09:00 11/15/20 08:59 08/19/20 08:52 Carbidopa/Levodopa (Sinemet 25/100) 1 tab THREE TIMES A DAY NG 08/09/20 18:00 09/02/20 08:59 08/19/20 18:21 Dextrose 1,000 ml @ 100 mls/hr Q10H IV 08/16/20 12:00 09/15/20 11:59 08/19/20 22:11 Heparin Sodium (Porcine) (Heparin 5000 units/ml) 5,000 units EVERY 12 HOURS SUBQ 08/03/20 09:00 09/17/20 08:59 08/19/20 21:01 Hydralazine HCl (Apresoline) 25 mg Q6H PRN NG SBP above 160 08/11/20 22:30 11/05/20 00:29 08/12/20 15:09 Magnesium Hydroxide (Mom) 30 ml DAILYPRN PRN GT Constipation 08/12/20 09:00 09/11/20 08:59 Metoclopramide HCl (Reglan) 5 mg Q8H PRN IVP Nausea & Vomiting 08/15/20 13:00 09/14/20 12:59 Metoprolol Tartrate (Lopressor) 25 mg Q12HR NG 08/13/20 09:00 11/11/20 08:59 08/19/20 08:52 Morphine Sulfate (Morphine Sulfate) 1 mg Q4H PRN IVP Moderate Pain (Pain Scale 4-6) 08/15/20 18:30 08/22/20 18:29 08/18/20 16:54 Piperacillin Sod/ Tazobactam Sod 3.375 gm/Sodium Chloride 110 ml @ 27.5 mls/hr EVERY 8 HOURS IVPB 08/08/20 14:00 08/22/20 13:59 08/20/20 06:12 Vancomycin HCl (Vanco pharmacy to dose) 1 ea DAILY PRN MISC Per rx protocol 08/12/20 11:30 09/11/20 11:29 Vancomycin HCl 750 mg/Sodium Chloride 275 ml @ 183.333 mls/hr Q12HR@0000,1200 IVPB 08/18/20 00:00 08/23/20 00:00 08/19/20 23:51 Baldev Luo MD Aug 20, 2020 08:48
[2020-08-20] MEDS: Heparin 5000 units/ml inj SUBQ SCH ×2 (09:35→20:09)
[2020-08-20] MEDS: Levodopa/Carbidopa 25/100 tab NG SCH ×3 (09:36→17:58)
[2020-08-20] MEDS: Amiodarone 200mg tab NG SCH (09:36)
[2020-08-20] MEDS: Vancomycin 750 MG in NS 275 ML IVPB SCH ×2 (12:22→23:34)
--- NOTE | 2020-08-20 12:43 | Pulmonology Progress Note ---
Subjective ROS Limited/Unobtainable: Yes Constitutional: Denies: fever Allergies: Coded Allergies: No Known Allergies (Unverified , 08/02/20) All Systems: reviewed and negative except above Subjective care noted now intubated diffuse infiltrates on CXR poor LOC sedated Objective Last 24 Hour Vital Signs Date Time Temp Pulse Resp B/P (MAP) Pulse Ox O2 Delivery O2 Flow Rate FiO2 08/20/20 11:52 78 08/20/20 11:10 89 28 100 08/20/20 11:00 98 28 110/65 (80) 98 08/20/20 10:00 97 25 109/47 (67) 100 08/20/20 09:00 91 27 124/49 (74) 100 08/20/20 09:00 73 98/41 08/20/20 08:00 79 08/20/20 08:00 Mechanical Ventilator Mechanical Ventilator 08/20/20 08:00 101.8 73 22 98/41 (60) 100 08/20/20 08:00 100 08/20/20 07:05 94 26 100 08/20/20 07:00 75 22 85/36 (52) 100 08/20/20 06:51 80 27 126/42 (70) 99 08/20/20 06:00 79 22 86/38 (54) 100 08/20/20 05:00 78 25 108/42 (64) 97 08/20/20 04:00 Mechanical Ventilator Mechanical Ventilator 08/20/20 04:00 99.5 102/38 (59) 08/20/20 04:00 80 08/20/20 04:00 100 08/20/20 03:06 78 25 100 08/20/20 03:00 80 22 103/40 (61) 100 08/20/20 02:00 81 26 120/39 (66) 96 08/20/20 01:00 78 24 95/38 (57) 100 08/20/20 00:24 96 32 100 08/20/20 00:00 98.7 91 29 138/44 (75) 98 08/20/20 00:00 Mechanical Ventilator Mechanical Ventilator 08/20/20 00:00 100 08/20/20 00:00 89 08/19/20 23:00 90 32 141/51 (81) 97 08/19/20 22:00 78 23 111/45 (67) 99 08/19/20 21:00 71 95/35 08/19/20 21:00 71 22 106/37 (60) 99 08/19/20 20:00 100 08/19/20 20:00 80 08/19/20 20:00 98.5 81 23 104/39 (60) 97 08/19/20 20:00 Mechanical Ventilator Mechanical Ventilator 08/19/20 19:58 81 23 100 08/19/20 19:00 80 23 134/47 (76) 96 08/19/20 18:00 68 20 107/38 (61) 96 08/19/20 17:30 77 19 104/46 (65) 95 08/19/20 17:00 67 16 90/39 (56) 100 08/19/20 16:00 Bi-pap 08/19/20 16:00 71 08/19/20 16:00 97.4 71 24 97/82 (87) 100 08/19/20 15:00 73 25 98/51 (67) 100 08/19/20 14:00 97.0 77 20 93/43 (60) 100 08/19/20 14:00 100 08/19/20 14:00 82 20 100 Intake and Output 08/19/20 08/20/20 19:00 07:00 Intake Total 1513.333 ml 1247.5 ml Output Total 480 ml 1160 ml Balance 1033.333 ml 87.5 ml Free Water 20 ml IV Total 1493.333 ml 1227.5 ml Tube Feeding 0 ml 20 ml Output Urine Total 480 ml 360 ml Stool Total 800 ml # Bowel Movements 3 4 Objective WDWN NAD reduced breath sounds bilaterally with scattered rhonchi (not improved) [id number] NABS nontender no CCE nonfocal on BIPAP poorly responsive Microbiology Date/Time Source Procedure Growth Status 08/18/20 16:30 Sputum Gram Stain - Final Complete 08/18/20 16:30 Sputum Culture - Final Michelle Albicans Usual Respiratory Penny Complete Laboratory Tests 08/19/20 15:25: Arterial Blood pH 7.445, Arterial Blood Partial Pressure CO2 45.5H, Arterial Blood Partial Pressure O2 77.7, Arterial Blood HCO3 30.6H, Arterial Blood Oxygen Saturation 96.5, Arterial Blood Base Excess 5.8H, Emile Test Positive 08/20/20 04:25: White Blood Count 14.2H, Red Blood Count 3.02L, Hemoglobin 9.1L, Hematocrit 27.0L, Mean Corpuscular Volume 89, Mean Corpuscular Hemoglobin 30.2, Mean Corpuscular Hemoglobin Concent 33.8, Red Cell Distribution Width 13.2, Platelet Count 156, Mean Platelet Volume 10.5H, Neutrophils (%) (Auto) , Lymphocytes (%) (Auto) , Monocytes (%) (Auto) , Eosinophils (%) (Auto) , Basophils (%) (Auto) , Differential Total Cells Counted 100, Neutrophils % (Manual) 95H, Lymphocytes % (Manual) 3L, Monocytes % (Manual) 1, Eosinophils % (Manual) 1, Basophils % (Manual) 0, Band Neutrophils 0, Platelet Estimate Adequate, Platelet Morphology Normal, Hypochromasia 1+, Sodium Level 133L, Potassium Level 3.8, Chloride Level 100, Carbon Dioxide Level 32, Anion Gap 1L, Blood Urea Nitrogen 32H, Creatinine 1.0, Estimat Glomerular Filtration Rate > 60, Glucose Level 91, Calcium Level 7.4L, Total Bilirubin 0.5, Aspartate Amino Transf (AST/SGOT) 28, Alanine Aminotransferase (ALT/SGPT) 16, Alkaline Phosphatase 59, Total Protein 4.3L, Albumin 0.8L, Globulin 3.5, Albumin/Globulin Ratio 0.2L 08/20/20 09:16: Arterial Blood pH 7.503H, Arterial Blood Partial Pressure CO2 39.4, Arterial Blood Partial Pressure O2 72.8L, Arterial Blood HCO3 30.2H, Arterial Blood Oxygen Saturation 95.6, Arterial Blood Base Excess 6.6H, Emile Test Positive Current Medications Medications (Trade) Dose Ordered Sig/Javon Route PRN Reason Start Time Stop Time Status Last Admin Dose Admin Acetaminophen (Tylenol) 650 mg Q4H PRN ORAL Mild Pain (Pain Scale 1-3) 08/03/20 01:15 09/02/20 01:14 08/20/20 09:37 Acetaminophen (Tylenol) 650 mg Q4H PRN RECTAL Mild Pain (Pain Scale 1-3) 08/03/20 01:15 09/02/20 01:14 08/04/20 18:32 Amiodarone HCl (Cordarone) 200 mg DAILY NG 08/17/20 09:00 11/15/20 08:59 08/20/20 09:36 Carbidopa/Levodopa (Sinemet 25/100) 1 tab THREE TIMES A DAY NG 08/09/20 18:00 09/02/20 08:59 08/20/20 12:22 Dextrose 1,000 ml @ 100 mls/hr Q10H IV 08/16/20 12:00 09/15/20 11:59 08/20/20 09:41 Heparin Sodium (Porcine) (Heparin 5000 units/ml) 5,000 units EVERY 12 HOURS SUBQ 08/03/20 09:00 09/17/20 08:59 08/20/20 09:35 Hydralazine HCl (Apresoline) 25 mg Q6H PRN NG SBP above 160 08/11/20 22:30 11/05/20 00:29 08/12/20 15:09 Magnesium Hydroxide (Mom) 30 ml DAILYPRN PRN GT Constipation 08/12/20 09:00 09/11/20 08:59 Metoclopramide HCl (Reglan) 5 mg Q8H PRN IVP Nausea & Vomiting 08/15/20 13:00 09/14/20 12:59 Metoprolol Tartrate (Lopressor) 25 mg Q12HR NG 08/13/20 09:00 11/11/20 08:59 08/19/20 08:52 Morphine Sulfate (Morphine Sulfate) 1 mg Q4H PRN IVP Moderate Pain (Pain Scale 4-6) 08/15/20 18:30 08/22/20 18:29 08/18/20 16:54 Piperacillin Sod/ Tazobactam Sod 3.375 gm/Sodium Chloride 110 ml @ 27.5 mls/hr EVERY 8 HOURS IVPB 08/08/20 14:00 08/22/20 13:59 08/20/20 06:12 Vancomycin HCl (Vanco pharmacy to dose) 1 ea DAILY PRN MISC Per rx protocol 08/12/20 11:30 09/11/20 11:29 Vancomycin HCl 750 mg/Sodium Chloride 275 ml @ 183.333 mls/hr Q12HR@0000,1200 IVPB 08/18/20 00:00 08/23/20 00:00 08/20/20 12:22 Assessment/Plan Assessment/Plan ASSESSMENT: chronic encephalopathy, dementia, diffuse infiltrates, elevated BNP hypertension, recurrent falls, and urinary tract infection, hypoxemia, probable aspiration pneumonia. acute respiratory failure hypoxemic PLAN care noted and d/w Dr. Gilmore respiratory care as is vent support followup CXR and ABG palliative care recommended if aggressive therapy wanted, would need trach Full code medications/laboratory data/nursing notes/ICU care reviewed in detail note reviewed and edited care discussed with RN and RT ICU time spent >40 minutes Eriberto Valencia MD Aug 20, 2020 12:43
--- NOTE | 2020-08-20 14:41 | Diagnostic Imaging Report ---
Indication: Shortness of breath Technique: One view of the chest Comparison: 08/19/2020 Findings: Stable satisfactory positions of endotracheal and orogastric tubes. Extensive bilateral infiltrates are unchanged. Impression: Unchanged, over one day, findings as above.
[2020-08-20] MEDS ORDERED: Tubing IV Secondary IV ONE ×2 (15:01→15:03)
[2020-08-20] MEDS ORDERED: NS 275ml ONE (15:01)
[2020-08-20] MEDS ORDERED: D5W 275ml ONE (15:03)
--- NOTE | 2020-08-20 16:00 | NUR ---
NURSE NOTES:PLACED A TELEPHONE CALL TO Gilmer GALVAN AND MADE AWARE AND NOTIFIED REGARDING PT HAD FEVER TODAY AND 101.8 AX AND MEDICATED WITH TYLENOL 650MG VIA NGT AND PROVIDE COOLING MEASURES . TEMP AT THIS TIME 99.A AX. NO NEW ORDERS FROM Michelle NOTED AT THIS TIME. WILL CONT TO MONITOR.
--- NOTE | 2020-08-20 17:24 | General Progress Note ---
Subjective Allergies: Coded Allergies: No Known Allergies (Unverified , 08/02/20) Subjective oral intubated. resting. still on 100% fio2. no fevers or chills. on ngt feeds. extensive infiltrates on cxr Objective Last 24 Hour Vital Signs Date Time Temp Pulse Resp B/P (MAP) Pulse Ox O2 Delivery O2 Flow Rate FiO2 08/20/20 16:00 100 08/20/20 16:00 92 08/20/20 16:00 98 26 124/105 (111) 99 08/20/20 16:00 Mechanical Ventilator Mechanical Ventilator 08/20/20 15:10 88 28 100 08/20/20 15:00 88 26 127/59 (81) 100 08/20/20 14:00 95 28 129/52 (77) 99 08/20/20 13:00 100.0 78 22 110/46 (67) 100 08/20/20 12:00 Mechanical Ventilator Mechanical Ventilator 08/20/20 12:00 97 26 110/65 (80) 99 08/20/20 12:00 85 08/20/20 12:00 100 08/20/20 11:52 78 08/20/20 11:10 89 28 100 08/20/20 11:00 98 28 110/65 (80) 98 08/20/20 10:00 97 25 109/47 (67) 100 08/20/20 09:00 91 27 124/49 (74) 100 08/20/20 09:00 73 98/41 08/20/20 08:00 79 08/20/20 08:00 Mechanical Ventilator Mechanical Ventilator 08/20/20 08:00 101.8 73 22 98/41 (60) 100 08/20/20 08:00 100 08/20/20 07:05 94 26 100 08/20/20 07:00 75 22 85/36 (52) 100 08/20/20 06:51 80 27 126/42 (70) 99 08/20/20 06:00 79 22 86/38 (54) 100 08/20/20 05:00 78 25 108/42 (64) 97 08/20/20 04:00 Mechanical Ventilator Mechanical Ventilator 08/20/20 04:00 99.5 102/38 (59) 08/20/20 04:00 80 08/20/20 04:00 100 12/3/20 03:06 78 25 100 08/20/20 03:00 80 22 103/40 (61) 100 08/20/20 02:00 81 26 120/39 (66) 96 08/20/20 01:00 78 24 95/38 (57) 100 08/20/20 00:24 96 32 100 08/20/20 00:00 98.7 91 29 138/44 (75) 98 08/20/20 00:00 Mechanical Ventilator Mechanical Ventilator 08/20/20 00:00 100 08/20/20 00:00 89 08/19/20 23:00 90 32 141/51 (81) 97 08/19/20 22:00 78 23 111/45 (67) 99 08/19/20 21:00 71 95/35 08/19/20 21:00 71 22 106/37 (60) 99 08/19/20 20:00 100 08/19/20 20:00 80 08/19/20 20:00 98.5 81 23 104/39 (60) 97 08/19/20 20:00 Mechanical Ventilator Mechanical Ventilator 08/19/20 19:58 81 23 100 08/19/20 19:00 80 23 134/47 (76) 96 08/19/20 18:00 68 20 107/38 (61) 96 08/19/20 17:30 77 19 104/46 (65) 95 Intake and Output 0 08/19/20 08/20/20 19:00 07:00 Intake Total 1513.333 ml 1247.5 ml Output Total 480 ml 1160 ml Balance 1033.333 ml 87.5 ml Free Water 20 ml IV Total 1493.333 ml 1227.5 ml Tube Feeding 0 ml 20 ml Output Urine Total 480 ml 360 ml Stool Total 800 ml # Bowel Movements 3 4 Laboratory Tests 08/20/20 04:25: White Blood Count 14.2H, Red Blood Count 3.02L, Hemoglobin 9.1L, Hematocrit 27.0L, Mean Corpuscular Volume 89, Mean Corpuscular Hemoglobin 30.2, Mean Corpuscular Hemoglobin Concent 33.8, Red Cell Distribution Width 13.2, Platelet Count 156, Mean Platelet Volume 10.5H, Neutrophils (%) (Auto) , Lymphocytes (%) (Auto) , Monocytes (%) (Auto) , Eosinophils (%) (Auto) , Basophils (%) (Auto) , Differential Total Cells Counted 100, Neutrophils % (Manual) 95H, Lymphocytes % (Manual) 3L, Monocytes % (Manual) 1, Eosinophils % (Manual) 1, Basophils % (Manual) 0, Band Neutrophils 0, Platelet Estimate Adequate, Platelet Morphology Normal, Hypochromasia 1+, Sodium Level 133L, Potassium Level 3.8, Chloride Level 100, Carbon Dioxide Level 32, Anion Gap 1L, Blood Urea Nitrogen 32H, Creatinine 1.0, Estimat Glomerular Filtration Rate > 60, Glucose Level 91, Calcium Level 7.4L, Total Bilirubin 0.5, Aspartate Amino Transf (AST/SGOT) 28, Alanine Aminotransferase (ALT/SGPT) 16, Alkaline Phosphatase 59, Total Protein 4.3L, Albumin 0.8L, Globulin 3.5, Albumin/Globulin Ratio 0.2L 08/20/20 09:16: Arterial Blood pH 7.503H, Arterial Blood Partial Pressure CO2 39.4, Arterial Blood Partial Pressure O2 72.8L, Arterial Blood HCO3 30.2H, Arterial Blood Oxy gen Saturation 95.6, Arterial Blood Base Excess 6.6H, Emile Test Positive Height (Feet): 5 Height (Inches): 5.00 Weight (Pounds): 99 Objective General Appearance: WD/WN, confused, thin. on bipap EENT: normal ENT inspection Neck: non-tender, normal alignment, supple Cardiovascular: normal rate, regular rhythm Respiratory/Chest: chest wall non-tender, lungs clear, normal breath sounds, no respiratory distress, no accessory muscle use Abdomen: normal bowel sounds, non tender, soft, no organomegaly Edema: no edema noted Arm (L), no edema noted Arm (R) Assessment/Plan Problem List: (1) Pneumonia ICD Codes: J18.9 - Pneumonia, unspecified organism SNOMED: 731827945 (2) Hypoxia ICD Codes: R09.02 - Hypoxemia SNOMED: 701894608 (3) AMS (altered mental status) ICD Codes: R41.82 - Altered mental status, unspecified SNOMED: 315365885 (4) UTI (urinary tract infection) ICD Codes: N39.0 - Urinary tract infection, site not specified SNOMED: 56424916 (5) Sepsis ICD Codes: A41.9 - Sepsis, unspecified organism SNOMED: 72001891 Status: stable, not improved Assessment/Plan: vent support wean as able sputum cultures repeat covid pcr ngt feeds suctioning monitor labs/lytes replace as needed dvt/stress ulcer prophylaxis very poor prognosis Chavez Gilmore MD Aug 20, 2020 17:24
--- NOTE | 2020-08-20 19:00 | NUR ---
HAND-OFF: Report given to .KAI ARGUELLES.
--- NOTE | 2020-08-20 19:19 | NUR ---
NURSE NOTES: Received patient from BLANE Purvis. Will continue plan of care.
--- NOTE | 2020-08-20 19:34 | NUR ---
HAND-OFF: Report given to BLANE Payne.
--- NOTE | 2020-08-20 19:40 | NUR ---
NURSE NOTES: Received report audrey Kuhn RN. Covid negative. Pt is obtunded and orally intubated. ETT 7.5/25cm from lipline. Vent setting: TV 500, AC 20, FIO2 100%, PEEP 5. Suctioned moderate amount of yellowish secretions noted. NGT on RT nares OSMOLITE @10mL/hr tolerating well. [place] yellow urine noted and draining well. IV MARY 20G D5W @100mL/hr is running. Bilaterally soft wrist restrains in place to prevent from pulling lines. Low grade fever noted by AMRN. Notified to Dr. Gilmore. Safety measures observed and no acute distress noted. Will continue to monitor.
--- NOTE | 2020-08-20 19:45 | NUR ---
NURSE NOTES: Covid negative/PUI PCR test in the morning per report.
--- NOTE | 2020-08-20 21:00 | NUR ---
NURSE NOTES: PM meds given. Oral care provided. Turned and repositioned.
--- NOTE | 2020-08-20 21:57 | Cardiology Progress Note ---
Subjective DATE OF SERVICE: Aug 20, 2020 Increasing respiratory distress with worsening respiratory acidosis despite bipap - req'd intubation yesterday with mechanical ventilation. BP readings now stable. ABG (08/19): 7.44/45/78 on ventilator Monitor: sinus/sinus tachy with rare paroxysmal AFib CXR: (08/19) bilateral consolidation No change in care plan noted from family - they now reaffirm FULL code status I spoke to gr dtr today; she states that family want to honor his wishes, which were to live as long as possible. I explained to her that if no evidence of successful wean off vent over next few days. At that point we would consider a trach. Objective Last 24 Hour Vital Signs Date Time Temp Pulse Resp B/P (MAP) Pulse Ox O2 Delivery O2 Flow Rate FiO2 08/20/20 21:00 69 29 124/56 (78) 95 08/20/20 20:07 83 126/68 08/20/20 20:00 92 08/20/20 20:00 83 30 126/68 (87) 99 08/20/20 20:00 Mechanical Ventilator Mechanical Ventilator 08/20/20 20:00 100 08/20/20 19:36 69 20 100 08/20/20 19:00 85 28 132/60 (84) 99 08/20/20 18:01 93 28 101/53 (69) 99 08/20/20 17:00 93 20 122/63 (82) 99 08/20/20 16:00 100 08/20/20 16:00 92 08/20/20 16:00 98 26 124/105 (111) 99 08/20/20 16:00 Mechanical Ventilator Mechanical Ventilator 08/20/20 15:10 88 28 100 08/20/20 15:00 88 26 127/59 (81) 100 08/20/20 14:00 95 28 129/52 (77) 99 08/20/20 13:00 100.0 78 22 110/46 (67) 100 08/20/20 12:00 Mechanical Ventilator Mechanical Ventilator 08/20/20 12:00 97 26 110/65 (80) 99 08/20/20 12:00 85 08/20/20 12:00 100 08/20/20 11:52 78 08/20/20 11:10 89 28 100 08/20/20 11:00 98 28 110/65 (80) 98 08/20/20 10:00 97 25 109/47 (67) 100 08/20/20 09:00 91 27 124/49 (74) 100 08/20/20 09:00 73 98/41 08/20/20 08:00 79 08/20/20 08:00 Mechanical Ventilator Mechanical Ventilator 08/20/20 08:00 101.8 73 22 98/41 (60) 100 08/20/20 08:00 100 08/20/20 07:05 94 26 100 08/20/20 07:00 75 22 85/36 (52) 100 08/20/20 06:51 80 27 126/42 (70) 99 08/20/20 06:00 79 22 86/38 (54) 100 08/20/20 05:00 78 25 108/42 (64) 97 08/20/20 04:00 Mechanical Ventilator Mechanical Ventilator 08/20/20 04:00 99.5 102/38 (59) 08/20/20 04:00 80 08/20/20 04:00 100 08/20/20 03:06 78 25 100 08/20/20 03:00 80 22 103/40 (61) 100 08/20/20 02:00 81 26 120/39 (66) 96 08/20/20 01:00 78 24 95/38 (57) 100 08/20/20 00:24 96 32 100 08/20/20 00:00 98.7 91 29 138/44 (75) 98 08/20/20 00:00 Mechanical Ventilator Mechanical Ventilator 08/20/20 00:00 100 08/20/20 00:00 89 08/19/20 23:00 90 32 141/51 (81) 97 08/19/20 22:00 78 23 111/45 (67) 99 ROS: unchanged from my evaluation of 08/02/20 HEENT: Orally intubated, Mechanically Ventilated, Thick Secretions ET Tube RHYTHM: NSR, PACs LUNGS: bilateral rhonchi CARDIAC: normal S1 and S2, irregularly irregular, systolic murmur - 1/6 systolic murmurat apex, rapid rate ABDOMEN: normal bowel sounds, non tender, soft, no organomegaly, other - NGTube EXTREMITIES: normal range of motion, trace edema Laboratory Tests Test 08/20/20 04:25 08/20/20 09:16 White Blood Count 14.2 K/UL (4.8-10.8) H Red Blood Count 3.02 M/UL (4.70-6.10) L Hemoglobin 9.1 G/DL (14.2-18.0) L Hematocrit 27.0 % (42.0-52.0) L Mean Corpuscular Volume 89 FL (80-99) Mean Corpuscular Hemoglobin 30.2 PG (27.0-31.0) Mean Corpuscular Hemoglobin Concent 33.8 G/DL (32.0-36.0) Red Cell Distribution Width 13.2 % (11.6-14.8) Platelet Count 156 K/UL (150-450) Mean Platelet Volume 10.5 FL (6.5-10.1) H Neutrophils (%) (Auto) % (45.0-75.0) Lymphocytes (%) (Auto) % (20.0-45.0) Monocytes (%) (Auto) % (1.0-10.0) Eosinophils (%) (Auto) % (0.0-3.0) Basophils (%) (Auto) % (0.0-2.0) Differential Total Cells Counted 100 Neutrophils % (Manual) 95 % (45-75) H Lymphocytes % (Manual) 3 % (20-45) L Monocytes % (Manual) 1 % (1-10) Eosinophils % (Manual) 1 % (0-3) Basophils % (Manual) 0 % (0-2) Band Neutrophils 0 % (0-8) Platelet Estimate Adequate Platelet Morphology Normal Hypochromasia 1+ Sodium Level 133 MMOL/L (136-145) L Potassium Level 3.8 MMOL/L (3.5-5.1) Chloride Level 100 MMOL/L (98-107) Carbon Dioxide Level 32 MMOL/L (21-32) Anion Gap 1 mmol/L (5-15) L Blood Urea Nitrogen 32 mg/dL (7-18) H Creatinine 1.0 MG/DL (0.55-1.30) Estimat Glomerular Filtration Rate > 60 mL/min (>60) Glucose Level 91 MG/DL (74-106) Calcium Level 7.4 MG/DL (8.5-10.1) L Total Bilirubin 0.5 MG/DL (0.2-1.0) Aspartate Amino Transf (AST/SGOT) 28 U/L (15-37) Alanine Aminotransferase (ALT/SGPT) 16 U/L (12-78) Alkaline Phosphatase 59 U/L (46-116) Total Protein 4.3 G/DL (6.4-8.2) L Albumin 0.8 G/DL (3.4-5.0) L Globulin 3.5 g/dL Albumin/Globulin Ratio 0.2 (1.0-2.7) L Arterial Blood pH 7.503 (7.350-7.450) Arterial Blood Partial Pressure CO2 39.4 mmHg (35.0-45.0) Arterial Blood Partial Pressure O2 72.8 mmHg (75.0-100.0) L Arterial Blood HCO3 30.2 mmol/L (22.0-26.0) H Arterial Blood Oxygen Saturation 95.6 % (95-100) Arterial Blood Base Excess 6.6 (-2-2) H Emile Test Positive Microbiology Date/Time Source Procedure Growth Status 08/18/20 16:30 Sputum Gram Stain - Final Complete 08/18/20 16:30 Sputum Culture - Final Michelle Albicans Usual Respiratory Penny Complete Assessment/Plan Assessment/Plan Paroxysmal atrial fibrillation with RVR now controlled on amiodarone Acute myocardial ischemia with elevated troponin Aspiration risk Sepsis Healthcare acquired PNA Complicated UTI with indwelling catheter Hyponatremia Severe protein calorie malnutrition Acute myocardial ischemia Respiratory failure with hypoxia and hypercarbia - now on mech ventilation Hypokalemia Leukocytosis improving Ac/chronic diastolic CHF Dehydration/hypernatremia corrected CRITICAL & GUARDED Empiric antibiotics Vent support NGTube feedings DVT prophylaxis Free water replacement; no diuresis at this time. Potassium replacement as needed. Continue amiodarone - dose adjusted Titrate anti-HTN regimen as needed. Sarkis Herman MD Aug 20, 2020 21:57
--- NOTE | 2020-08-20 23:00 | NUR ---
NURSE NOTES: Oral care provided. Turned and repositioned.
[2020-08-21] VITALS (24 sets, daily range): BP systolic 92–155; BP diastolic 43–84
--- NOTE | 2020-08-21 03:00 | NUR ---
NURSE NOTES: Am care provided. Pt is Covid negative/PUI and PCR test done and sent to the lab. Pt remains obtunded and orally intubated. ETT 7.5/25cm from lipline. Vent setting: TV 500, AC 20, FIO2 100%, PEEP 5. NGT on RT nares OSMOLITE @10mL/hr tolerating well. [place] yellow urine noted and draining well. IV MARY 20G D5W @100mL/hr is kept running. Bilaterally soft wrist restrains remains to prevent from pulling lines. Safety measures observed and no acute distress noted. Will continue to monitor.
[2020-08-21 05:22] LABS: HEMATOCRIT 25.5 % (42.0-52.0); HEMOGLOBIN 8.7 G/DL (14.2-18.0); MEAN CORPUSCULAR VOLUME 89 FL (80-99); PLATELET COUNT 165 K/UL (150-450); RED BLOOD COUNT 2.88 M/UL (4.70-6.10); RED CELL DISTRIBUTION WIDTH 13.4 % (11.6-14.8); WHITE BLOOD COUNT 15.7 K/UL (4.8-10.8)
[2020-08-21 05:50] LABS: ALANINE AMINOTRANSFERASE 8 U/L (12-78); ALBUMIN 0.8 G/DL (3.4-5.0); ALBUMIN/GLOBULIN RATIO 0.2 (1.0-2.7); ALKALINE PHOSPHATASE 64 U/L (46-116); ANION GAP 3 mmol/L (5-15); ASPARTATE AMINO TRANSFERASE 32 U/L (15-37); BILIRUBIN,TOTAL 0.4 MG/DL (0.2-1.0); BLOOD UREA NITROGEN 26 mg/dL (7-18); CALCIUM 7.3 MG/DL (8.5-10.1); CARBON DIOXIDE 31 MMOL/L (21-32); CHLORIDE 96 MMOL/L (98-107); CREATININE 1.1 MG/DL (0.55-1.30); POTASSIUM 3.6 MMOL/L (3.5-5.1); SODIUM 130 MMOL/L (136-145)
[2020-08-21] MEDS: Piperacillin/Tazobactam 3.375 GM in NS 110 ML IVPB SCH ×3 (06:00→22:12)
--- NOTE | 2020-08-21 07:18 | General Progress Note ---
Subjective ROS Limited/Unobtainable: Yes Constitutional: Reports: malaise, weakness HEENT: Reports: no symptoms Cardiovascular: Reports: no symptoms Respiratory: Reports: shortness of breath Gastrointestinal/Abdominal: Reports: difficulty swallowing Genitourinary: Reports: no symptoms Neurologic/Psychiatric: Reports: pre-existing deficit Endocrine: Reports: no symptoms Hematologic/Lymphatic: Reports: anemia Allergies: Coded Allergies: No Known Allergies (Unverified , 08/02/20) All Systems: reviewed and negative except above Subjective no change, on the vent. still on 100% fio2. awake. no distress. no secretion. tolerating ngt feeds Objective Last 24 Hour Vital Signs Date Time Temp Pulse Resp B/P (MAP) Pulse Ox O2 Delivery O2 Flow Rate FiO2 08/21/20 05:00 80 28 141/55 (83) 98 08/21/20 04:00 100 08/21/20 04:00 67 08/21/20 04:00 67 21 112/47 (68) 99 08/21/20 04:00 Mechanical Ventilator Mechanical Ventilator 08/21/20 03:23 86 28 100 08/21/20 03:00 82 27 127/64 (85) 100 08/21/20 02:00 83 28 124/43 (70) 99 08/21/20 01:00 82 28 136/59 (84) 99 08/21/20 00:00 99.1 79 31 130/58 (82) 98 08/21/20 00:00 79 08/21/20 00:00 100 08/21/20 00:00 Mechanical Ventilator Mechanical Ventilator 08/20/20 23:18 83 30 100 08/20/20 23:00 85 28 154/64 (94) 99 08/20/20 22:00 74 30 133/57 (82) 98 08/20/20 21:00 69 29 124/56 (78) 95 08/20/20 20:07 83 126/68 08/20/20 20:00 83 08/20/20 20:00 99.0 83 30 126/68 (87) 99 08/20/20 20:00 Mechanical Ventilator Mechanical Ventilator 08/20/20 20:00 100 08/20/20 19:36 69 20 100 08/20/20 19:00 85 28 132/60 (84) 99 08/20/20 18:01 93 28 101/53 (69) 99 08/20/20 17:00 93 20 122/63 (82) 99 08/20/20 16:00 100 08/20/20 16:00 92 08/20/20 16:00 98 26 124/105 (111) 99 08/20/20 16:00 Mechanical Ventilator Mechanical Ventilator 08/20/20 15:10 88 28 100 08/20/20 15:00 88 26 127/59 (81) 100 08/20/20 14:00 95 28 129/52 (77) 99 08/20/20 13:00 100.0 78 22 110/46 (67) 100 08/20/20 12:00 Mechanical Ventilator Mechanical Ventilator 08/20/20 12:00 97 26 110/65 (80) 99 08/20/20 12:00 85 08/20/20 12:00 100 08/20/20 11:52 78 08/20/20 11:10 89 28 100 08/20/20 11:00 98 28 110/65 (80) 98 08/20/20 10:00 97 25 109/47 (67) 100 08/20/20 09:00 91 27 124/49 (74) 100 08/20/20 09:00 73 98/41 08/20/20 08:00 79 08/20/20 08:00 Mechanical Ventilator Mechanical Ventilator 08/20/20 08:00 101.8 73 22 98/41 (60) 100 08/20/20 08:00 100 Intake and Output 08/20/20 08/21/20 19:00 07:00 Intake Total 1646.666 ml 700 ml Output Total 320 ml 300 ml Balance 1326.666 ml 400 ml Free Water 250 ml IV Total 1276.666 ml 600 ml Tube Feeding 120 ml 100 ml Output Urine Total 320 ml 300 ml # Bowel Movements 5 3 Laboratory Tests 08/20/20 09:16: Arterial Blood pH 7.503H, Arterial Blood Partial Pressure CO2 39.4, Arterial Blood Partial Pressure O2 72.8L, Arterial Blood HCO3 30.2H, Arterial Blood Oxygen Saturation 95.6, Arterial Blood Base Excess 6.6H, Emile Test Positive 08/21/20 04:35: White Blood Count 15.7H, Red Blood Count 2.88L, Hemoglobin 8.7L, Hematocrit 25.5L, Mean Corpuscular Volume 89, Mean Corpuscular Hemoglobin 30.4, Mean Corpuscular Hemoglobin Concent 34.3, Red Cell Distribution Width 13.4, Platelet Count 165, Mean Platelet Volume 10.5H, Neutrophils (%) (Auto) , Lymphocytes (%) (Auto) , Monocytes (%) (Auto) , Eosinophils (%) (Auto) , Basophils (%) (Auto) , Neutrophils % (Manual) [Pending], Lymphocytes % (Manual) [Pending], Platelet Estimate [Pending], Platelet Morphology [Pending], Sodium Level 130L, Potassium Level 3.6, Chloride Level 96L, Carbon Dioxide Level 31, Anion Gap 3L, Blood Urea Nitrogen 26H, Creatinine 1.1, Estimat Glomerular Filtration Rate > 60, Glucose Level 131H, Calcium Level 7.3L, Total Bilirubin 0.4, Aspartate Amino Transf (AST/SGOT) 32, Alanine Aminotransferase (ALT/SGPT) 8L, Alkaline Phosphatase 64, Total Protein 4.3L, Albumin 0.8L, Globulin 3.5, Albumin/Globulin Ratio 0.2L Height (Feet): 5 Height (Inches): 5.00 Weight (Pounds): 99 Objective General Appearance: WD/WN, confused, thin. on bipap EENT: normal ENT inspection Neck: non-tender, normal alignment, supple Cardiovascular: normal rate, regular rhythm Respiratory/Chest: chest wall non-tender, lungs clear, normal breath sounds, no respiratory distress, no accessory muscle use Abdomen: normal bowel sounds, non tender, soft, no organomegaly Edema: no edema noted Arm (L), no edema noted Arm (R) Assessment/Plan Problem List: (1) Pneumonia ICD Codes: J18.9 - Pneumonia, unspecified organism SNOMED: 973566383 (2) Hypoxia ICD Codes: R09.02 - Hypoxemia SNOMED: 769562561 (3) AMS (altered mental status) ICD Codes: R41.82 - Altered mental status, unspecified SNOMED: 699455238 (4) UTI (urinary tract infection) ICD Codes: N39.0 - Urinary tract infection, site not specified SNOMED: 80237614 (5) Sepsis ICD Codes: A41.9 - Sepsis, unspecified organism SNOMED: 27620893 Status: stable, not improved Assessment/Plan: vent support wean as able sputum cultures repeat covid pcr ngt feeds suctioning monitor labs/lytes replace as needed dvt/stress ulcer prophylaxis very poor prognosis dw/ family- if needed they want to proceed with trach and peg Chavez Gilmore MD Aug 21, 2020 07:18
--- NOTE | 2020-08-21 07:51 | NUR ---
HAND-OFF: Report given to BLANE Foy. Endorsed POC.
[2020-08-21] MEDS: Heparin 5000 units/ml inj SUBQ SCH ×2 (09:00→21:00)
[2020-08-21] MEDS: Amiodarone 200mg tab NG SCH (09:00)
[2020-08-21] MEDS: Levodopa/Carbidopa 25/100 tab NG SCH ×3 (09:00→18:00)
--- NOTE | 2020-08-21 11:40 | Infectious Diseases Prog Note ---
Assessment/Plan Assessment/Plan antibiotics : vancomycin iv zosyn A 1. Right-sided pneumonia. 2. COVID-19 test is negative. 3. Urinary tract infection. 4. Hypertension. 5. Dementia. 6. Respiratory failure. 7. leucocytosis P 1. continue iv zosyn 2. d/c iv vancomycin 3. will follow up cultures 4. poor prognosis Subjective ROS Limited/Unobtainable: Yes Allergies: Coded Allergies: No Known Allergies (Unverified , 08/02/20) Objective Last 24 Hour Vital Signs Date Time Temp Pulse Resp B/P (MAP) Pulse Ox O2 Delivery O2 Flow Rate FiO2 08/21/20 09:00 82 28 142/76 (98) 100 08/21/20 08:00 83 08/21/20 08:00 Mechanical Ventilator Mechanical Ventilator 08/21/20 08:00 99.0 91 30 143/60 (87) 100 08/21/20 08:00 100 08/21/20 07:10 94 31 100 08/21/20 07:00 90 29 139/74 (95) 100 08/21/20 06:00 85 30 155/82 (106) 97 08/21/20 05:00 80 28 141/55 (83) 98 08/21/20 04:00 100 08/21/20 04:00 67 08/21/20 04:00 67 21 112/47 (68) 99 08/21/20 04:00 Mechanical Ventilator Mechanical Ventilator 08/21/20 03:23 86 28 100 08/21/20 03:00 82 27 127/64 (85) 100 08/21/20 02:00 83 28 124/43 (70) 99 08/21/20 01:00 82 28 136/59 (84) 99 08/21/20 00:00 99.1 79 31 130/58 (82) 98 08/21/20 00:00 79 08/21/20 00:00 100 08/21/20 00:00 Mechanical Ventilator Mechanical Ventilator 08/20/20 23:18 83 30 100 08/20/20 23:00 85 28 154/64 (94) 99 08/20/20 22:00 74 30 133/57 (82) 98 08/20/20 21:00 69 29 124/56 (78) 95 08/20/20 20:07 83 126/68 12/3/20 20:00 83 08/20/20 20:00 99.0 83 30 126/68 (87) 99 08/20/20 20:00 Mechanical Ventilator Mechanical Ventilator 08/20/20 20:00 100 08/20/20 19:36 69 20 100 08/20/20 19:00 85 28 132/60 (84) 99 08/20/20 18:01 93 28 101/53 (69) 99 08/20/20 17:00 93 20 122/63 (82) 99 08/20/20 16:00 100 08/20/20 16:00 92 08/20/20 16:00 98 26 124/105 (111) 99 08/20/20 16:00 Mechanical Ventilator Mechanical Ventilator 08/20/20 15:10 88 28 100 08/20/20 15:00 88 26 127/59 (81) 100 08/20/20 14:00 95 28 129/52 (77) 99 08/20/20 13:00 100.0 78 22 110/46 (67) 100 08/20/20 12:00 Mechanical Ventilator Mechanical Ventilator 08/20/20 12:00 97 26 110/65 (80) 99 08/20/20 12:00 85 08/20/20 12:00 100 08/20/20 11:52 78 Height (Feet): 5 Height (Inches): 5.00 Weight (Pounds): 99 HEENT: other - intubated Respiratory/Chest: lungs clear Cardiovascular: normal rate, regular rhythm, no gallop/murmur Abdomen: soft, non tender Extremities: other - + edema Microbiology Date/Time Source Procedure Growth Status 08/18/20 16:30 Sputum Gram Stain - Final Complete 08/18/20 16:30 Sputum Culture - Final Michelle Albicans Usual Respiratory Penny Complete Laboratory Tests Test 08/21/20 04:35 White Blood Count 15.7 K/UL (4.8-10.8) H Red Blood Count 2.88 M/UL (4.70-6.10) L Hemoglobin 8.7 G/DL (14.2-18.0) L Hematocrit 25.5 % (42.0-52.0) L Mean Corpuscular Volume 89 FL (80-99) Mean Corpuscular Hemoglobin 30.4 PG (27.0-31.0) Mean Corpuscular Hemoglobin Concent 34.3 G/DL (32.0-36.0) Red Cell Distribution Width 13.4 % (11.6-14.8) Platelet Count 165 K/UL (150-450) Mean Platelet Volume 10.5 FL (6.5-10.1) H Neutrophils (%) (Auto) % (45.0-75.0) Lymphocytes (%) (Auto) % (20.0-45.0) Monocytes (%) (Auto) % (1.0-10.0) Eosinophils (%) (Auto) % (0.0-3.0) Basophils (%) (Auto) % (0.0-2.0) Differential Total Cells Counted 100 Neutrophils % (Manual) 95 % (45-75) H Lymphocytes % (Manual) 3 % (20-45) L Monocytes % (Manual) 2 % (1-10) Eosinophils % (Manual) 0 % (0-3) Basophils % (Manual) 0 % (0-2) Band Neutrophils 0 % (0-8) Platelet Estimate Adequate Platelet Morphology Normal Hypochromasia 1+ Sodium Level 130 MMOL/L (136-145) L Potassium Level 3.6 MMOL/L (3.5-5.1) Chloride Level 96 MMOL/L (98-107) L Carbon Dioxide Level 31 MMOL/L (21-32) Anion Gap 3 mmol/L (5-15) L Blood Urea Nitrogen 26 mg/dL (7-18) H Creatinine 1.1 MG/DL (0.55-1.30) Estimat Glomerular Filtration Rate > 60 mL/min (>60) Glucose Level 131 MG/DL (74-106) H Calcium Level 7.3 MG/DL (8.5-10.1) L Total Bilirubin 0.4 MG/DL (0.2-1.0) Aspartate Amino Transf (AST/SGOT) 32 U/L (15-37) Alanine Aminotransferase (ALT/SGPT) 8 U/L (12-78) L Alkaline Phosphatase 64 U/L (46-116) Total Protein 4.3 G/DL (6.4-8.2) L Albumin 0.8 G/DL (3.4-5.0) L Globulin 3.5 g/dL Albumin/Globulin Ratio 0.2 (1.0-2.7) L Current Medications Medications (Trade) Dose Ordered Sig/Javon Route PRN Reason Start Time Stop Time Status Last Admin Dose Admin Acetaminophen (Tylenol) 650 mg Q4H PRN ORAL Mild Pain (Pain Scale 1-3) 08/03/20 01:15 09/02/20 01:14 08/20/20 09:37 Acetaminophen (Tylenol) 650 mg Q4H PRN RECTAL Mild Pain (Pain Scale 1-3) 08/03/20 01:15 09/02/20 01:14 08/04/20 18:32 Amiodarone HCl (Cordarone) 200 mg DAILY NG 08/17/20 09:00 11/15/20 08:59 08/20/20 09:36 Carbidopa/Levodopa (Sinemet 25/100) 1 tab THREE TIMES A DAY NG 08/09/20 18:00 09/02/20 08:59 08/20/20 17:58 Heparin Sodium (Porcine) (Heparin 5000 units/ml) 5,000 units EVERY 12 HOURS SUBQ 08/03/20 09:00 09/17/20 08:59 08/20/20 20:09 Hydralazine HCl (Apresoline) 25 mg Q6H PRN NG SBP above 160 08/11/20 22:30 11/05/20 00:29 08/12/20 15:09 Magnesium Hydroxide (Mom) 30 ml DAILYPRN PRN GT Constipation 08/12/20 09:00 09/11/20 08:59 Metoclopramide HCl (Reglan) 5 mg Q8H PRN IVP Nausea & Vomiting 08/15/20 13:00 09/14/20 12:59 Metoprolol Tartrate (Lopressor) 25 mg Q12HR NG 08/13/20 09:00 11/11/20 08:59 08/20/20 20:07 Morphine Sulfate (Morphine Sulfate) 1 mg Q4H PRN IVP Moderate Pain (Pain Scale 4-6) 08/15/20 18:30 08/22/20 18:29 08/18/20 16:54 Piperacillin Sod/ Tazobactam Sod 3.375 gm/Sodium Chloride 110 ml @ 27.5 mls/hr EVERY 8 HOURS IVPB 08/08/20 14:00 08/22/20 13:59 08/21/20 06:00 Sodium Chloride 1,000 ml @ 50 mls/hr Q20H IV 08/21/20 07:30 09/20/20 07:29 08/21/20 07:30 Vancomycin HCl (Vanco pharmacy to dose) 1 ea DAILY PRN MISC Per rx protocol 08/12/20 11:30 09/11/20 11:29 Vancomycin HCl 750 mg/Sodium Chloride 275 ml @ 183.333 mls/hr Q12HR@0000,1200 IVPB 08/18/20 00:00 08/23/20 00:00 08/20/20 23:34 Wagner Christensen MD Aug 21, 2020 11:40
--- NOTE | 2020-08-21 11:50 | Cardiology Progress Note ---
Subjective DATE OF SERVICE: Aug 21, 2020 Remains orally intubated with mechanical ventilation. BP readings less tenuous. ABG (08/19): 7.44/45/78 on ventilator Monitor: sinus/sinus tachy with rare paroxysmal AFib CXR: (08/20) bilateral consolidations unchanged No change in care plan noted from family - they now reaffirm FULL code status I spoke to gr dtr today; she states that family want to honor his wishes, which were to live as long as possible. I explained to her that if no evidence of successful wean off vent over next few days. At that point we would consider a trach. Objective Last 24 Hour Vital Signs Date Time Temp Pulse Resp B/P (MAP) Pulse Ox O2 Delivery O2 Flow Rate FiO2 08/21/20 09:00 82 28 142/76 (98) 100 08/21/20 08:00 83 08/21/20 08:00 Mechanical Ventilator Mechanical Ventilator 08/21/20 08:00 99.0 91 30 143/60 (87) 100 08/21/20 08:00 100 08/21/20 07:10 94 31 100 08/21/20 07:00 90 29 139/74 (95) 100 08/21/20 06:00 85 30 155/82 (106) 97 08/21/20 05:00 80 28 141/55 (83) 98 08/21/20 04:00 100 08/21/20 04:00 67 08/21/20 04:00 67 21 112/47 (68) 99 08/21/20 04:00 Mechanical Ventilator Mechanical Ventilator 08/21/20 03:23 86 28 100 08/21/20 03:00 82 27 127/64 (85) 100 08/21/20 02:00 83 28 124/43 (70) 99 08/21/20 01:00 82 28 136/59 (84) 99 08/21/20 00:00 99.1 79 31 130/58 (82) 98 08/21/20 00:00 79 08/21/20 00:00 100 08/21/20 00:00 Mechanical Ventilator Mechanical Ventilator 08/20/20 23:18 83 30 100 08/20/20 23:00 85 28 154/64 (94) 99 08/20/20 22:00 74 30 133/57 (82) 98 08/20/20 21:00 69 29 124/56 (78) 95 08/20/20 20:07 83 126/68 08/20/20 20:00 83 08/20/20 20:00 99.0 83 30 126/68 (87) 99 08/20/20 20:00 Mechanical Ventilator Mechanical Ventilator 08/20/20 20:00 100 08/20/20 19:36 69 20 100 08/20/20 19:00 85 28 132/60 (84) 99 08/20/20 18:01 93 28 101/53 (69) 99 08/20/20 17:00 93 20 122/63 (82) 99 08/20/20 16:00 100 08/20/20 16:00 92 08/20/20 16:00 98 26 124/105 (111) 99 08/20/20 16:00 Mechanical Ventilator Mechanical Ventilator 08/20/20 15:10 88 28 100 08/20/20 15:00 88 26 127/59 (81) 100 08/20/20 14:00 95 28 129/52 (77) 99 08/20/20 13:00 100.0 78 22 110/46 (67) 100 08/20/20 12:00 Mechanical Ventilator Mechanical Ventilator 08/20/20 12:00 97 26 110/65 (80) 99 08/20/20 12:00 85 08/20/20 12:00 100 08/20/20 11:52 78 ROS: unchanged from my evaluation of 08/02/20 HEENT: Orally intubated, Mechanically Ventilated, Thick Secretions ET Tube RHYTHM: NSR, PACs LUNGS: bilateral rhonchi CARDIAC: normal S1 and S2, irregularly irregular, systolic murmur - 1/6 systolic murmurat apex, rapid rate ABDOMEN: normal bowel sounds, non tender, soft, no organomegaly, other - NGTube EXTREMITIES: normal range of motion, trace edema Laboratory Tests Test 08/21/20 04:35 White Blood Count 15.7 K/UL (4.8-10.8) H Red Blood Count 2.88 M/UL (4.70-6.10) L Hemoglobin 8.7 G/DL (14.2-18.0) L Hematocrit 25.5 % (42.0-52.0) L Mean Corpuscular Volume 89 FL (80-99) Mean Corpuscular Hemoglobin 30.4 PG (27.0-31.0) Mean Corpuscular Hemoglobin Concent 34.3 G/DL (32.0-36.0) Red Cell Distribution Width 13.4 % (11.6-14.8) Platelet Count 165 K/UL (150-450) Mean Platelet Volume 10.5 FL (6.5-10.1) H Neutrophils (%) (Auto) % (45.0-75.0) Lymphocytes (%) (Auto) % (20.0-45.0) Monocytes (%) (Auto) % (1.0-10.0) Eosinophils (%) (Auto) % (0.0-3.0) Basophils (%) (Auto) % (0.0-2.0) Differential Total Cells Counted 100 Neutrophils % (Manual) 95 % (45-75) H Lymphocytes % (Manual) 3 % (20-45) L Monocytes % (Manual) 2 % (1-10) Eosinophils % (Manual) 0 % (0-3) Basophils % (Manual) 0 % (0-2) Band Neutrophils 0 % (0-8) Platelet Estimate Adequate Platelet Morphology Normal Hypochromasia 1+ Sodium Level 130 MMOL/L (136-145) L Potassium Level 3.6 MMOL/L (3.5-5.1) Chloride Level 96 MMOL/L (98-107) L Carbon Dioxide Level 31 MMOL/L (21-32) Anion Gap 3 mmol/L (5-15) L Blood Urea Nitrogen 26 mg/dL (7-18) H Creatinine 1.1 MG/DL (0.55-1.30) Estimat Glomerular Filtration Rate > 60 mL/min (>60) Glucose Level 131 MG/DL (74-106) H Calcium Level 7.3 MG/DL (8.5-10.1) L Total Bilirubin 0.4 MG/DL (0.2-1.0) Aspartate Amino Transf (AST/SGOT) 32 U/L (15-37) Alanine Aminotransferase (ALT/SGPT) 8 U/L (12-78) L Alkaline Phosphatase 64 U/L (46-116) Total Protein 4.3 G/DL (6.4-8.2) L Albumin 0.8 G/DL (3.4-5.0) L Globulin 3.5 g/dL Albumin/Globulin Ratio 0.2 (1.0-2.7) L Microbiology Date/Time Source Procedure Growth Status 08/18/20 16:30 Sputum Gram Stain - Final Complete 08/18/20 16:30 Sputum Culture - Final Michelle Albicans Usual Respiratory Penny Complete Assessment/Plan Assessment/Plan Paroxysmal atrial fibrillation with RVR now controlled on amiodarone Acute myocardial ischemia with elevated troponin Aspiration risk Sepsis Healthcare acquired PNA Complicated UTI with indwelling catheter Hyponatremia Severe protein calorie malnutrition Acute myocardial ischemia Respiratory failure with hypoxia and hypercarbia - now on mech ventilation Hypokalemia Leukocytosis improving Ac/chronic diastolic CHF Dehydration/hypernatremia corrected CRITICAL & GUARDED Empiric antibiotics Vent support NGTube feedings DVT prophylaxis Maint IVF as needed Potassium replacement as needed. Continue amiodarone - dose adjusted Titrate anti-HTN regimen as needed. Sarkis Herman MD Aug 21, 2020 11:50
--- NOTE | 2020-08-21 12:33 | Pulmonology Progress Note ---
Subjective ROS Limited/Unobtainable: Yes Constitutional: Denies: fever Allergies: Coded Allergies: No Known Allergies (Unverified , 08/02/20) All Systems: reviewed and negative except above Subjective care noted intubated diffuse infiltrates on CXR poor LOC sedated Objective Last 24 Hour Vital Signs Date Time Temp Pulse Resp B/P (MAP) Pulse Ox O2 Delivery O2 Flow Rate FiO2 08/21/20 09:00 82 28 142/76 (98) 100 08/21/20 08:00 83 08/21/20 08:00 Mechanical Ventilator Mechanical Ventilator 08/21/20 08:00 99.0 91 30 143/60 (87) 100 08/21/20 08:00 100 08/21/20 07:10 94 31 100 08/21/20 07:00 90 29 139/74 (95) 100 08/21/20 06:00 85 30 155/82 (106) 97 08/21/20 05:00 80 28 141/55 (83) 98 08/21/20 04:00 100 08/21/20 04:00 67 08/21/20 04:00 67 21 112/47 (68) 99 08/21/20 04:00 Mechanical Ventilator Mechanical Ventilator 08/21/20 03:23 86 28 100 08/21/20 03:00 82 27 127/64 (85) 100 08/21/20 02:00 83 28 124/43 (70) 99 08/21/20 01:00 82 28 136/59 (84) 99 08/21/20 00:00 99.1 79 31 130/58 (82) 98 08/21/20 00:00 79 08/21/20 00:00 100 08/21/20 00:00 Mechanical Ventilator Mechanical Ventilator 08/20/20 23:18 83 30 100 08/20/20 23:00 85 28 154/64 (94) 99 08/20/20 22:00 74 30 133/57 (82) 98 08/20/20 21:00 69 29 124/56 (78) 95 08/20/20 20:07 83 126/68 08/20/20 20:00 83 08/20/20 20:00 99.0 83 30 126/68 (87) 99 08/20/20 20:00 Mechanical Ventilator Mechanical Ventilator 08/20/20 20:00 100 08/20/20 19:36 69 20 100 08/20/20 19:00 85 28 132/60 (84) 99 08/20/20 18:01 93 28 101/53 (69) 99 08/20/20 17:00 93 20 122/63 (82) 99 08/20/20 16:00 100 08/20/20 16:00 92 08/20/20 16:00 98 26 124/105 (111) 99 08/20/20 16:00 Mechanical Ventilator Mechanical Ventilator 08/20/20 15:10 88 28 100 08/20/20 15:00 88 26 127/59 (81) 100 08/20/20 14:00 95 28 129/52 (77) 99 08/20/20 13:00 100.0 78 22 110/46 (67) 100 Intake and Output 08/20/20 08/21/20 19:00 07:00 Intake Total 1646.666 ml 747.5 ml Output Total 320 ml 360 ml Balance 1326.666 ml 387.5 ml Free Water 250 ml IV Total 1276.666 ml 627.5 ml Tube Feeding 120 ml 120 ml Output Urine Total 320 ml 360 ml # Bowel Movements 5 3 Objective WDWN NAD reduced breath sounds bilaterally with scattered rhonchi (not improved) [id number] NABS nontender no CCE nonfocal on BIPAP poorly responsive Microbiology Date/Time Source Procedure Growth Status 08/18/20 16:30 Sputum Gram Stain - Final Complete 08/18/20 16:30 Sputum Culture - Final Michelle Albicans Usual Respiratory Penny Complete Laboratory Tests 08/21/20 04:35: White Blood Count 15.7H, Red Blood Count 2.88L, Hemoglobin 8.7L, Hematocrit 25.5L, Mean Corpuscular Volume 89, Mean Corpuscular Hemoglobin 30.4, Mean Corpuscular Hemoglobin Concent 34.3, Red Cell Distribution Width 13.4, Platelet Count 165, Mean Platelet Volume 10.5H, Neutrophils (%) (Auto) , Lymphocytes (%) (Auto) , Monocytes (%) (Auto) , Eosinophils (%) (Auto) , Basophils (%) (Auto) , Differential Total Cells Counted 100, Neutrophils % (Manual) 95H, Lymphocytes % (Manual) 3L, Monocytes % (Manual) 2, Eosinophils % (Manual) 0, Basophils % (Manual) 0, Band Neutrophils 0, Platelet Estimate Adequate, Platelet Morphology Normal, Hypochromasia 1+, Sodium Level 130L, Potassium Level 3.6, Chloride Level 96L, Carbon Dioxide Level 31, Anion Gap 3L, Blood Urea Nitrogen 26H, Creatinine 1.1, Estimat Glomerular Filtration Rate > 60, Glucose Level 131H, Calcium Level 7.3L, Total Bilirubin 0.4, Aspartate Amino Transf (AST/SGOT) 32, Alanine Aminotransferase (ALT/SGPT) 8L, Alkaline Phosphatase 64, Total Protein 4.3L, Albumin 0.8L, Globulin 3.5, Albumin/Globulin Ratio 0.2L Current Medications Medications (Trade) Dose Ordered Sig/Javon Route PRN Reason Start Time Stop Time Status Last Admin Dose Admin Acetaminophen (Tylenol) 650 mg Q4H PRN ORAL Mild Pain (Pain Scale 1-3) 08/03/20 01:15 09/02/20 01:14 08/20/20 09:37 Acetaminophen (Tylenol) 650 mg Q4H PRN RECTAL Mild Pain (Pain Scale 1-3) 08/03/20 01:15 09/02/20 01:14 08/04/20 18:32 Amiodarone HCl (Cordarone) 200 mg DAILY NG 08/17/20 09:00 11/15/20 08:59 08/20/20 09:36 Carbidopa/Levodopa (Sinemet 25/100) 1 tab THREE TIMES A DAY NG 08/09/20 18:00 09/02/20 08:59 08/20/20 17:58 Heparin Sodium (Porcine) (Heparin 5000 units/ml) 5,000 units EVERY 12 HOURS SUBQ 08/03/20 09:00 09/17/20 08:59 08/20/20 20:09 Hydralazine HCl (Apresoline) 25 mg Q6H PRN NG SBP above 160 08/11/20 22:30 11/05/20 00:29 08/12/20 15:09 Magnesium Hydroxide (Mom) 30 ml DAILYPRN PRN GT Constipation 08/12/20 09:00 09/11/20 08:59 Metoclopramide HCl (Reglan) 5 mg Q8H PRN IVP Nausea & Vomiting 08/15/20 13:00 09/14/20 12:59 Metoprolol Tartrate (Lopressor) 25 mg Q12HR NG 08/13/20 09:00 11/11/20 08:59 08/20/20 20:07 Morphine Sulfate (Morphine Sulfate) 1 mg Q4H PRN IVP Moderate Pain (Pain Scale 4-6) 08/15/20 18:30 08/22/20 18:29 08/18/20 16:54 Piperacillin Sod/ Tazobactam Sod 3.375 gm/Sodium Chloride 110 ml @ 27.5 mls/hr EVERY 8 HOURS IVPB 08/21/20 14:00 08/28/20 13:59 Sodium Chloride 1,000 ml @ 50 mls/hr Q20H IV 08/21/20 07:30 09/20/20 07:29 08/21/20 07:30 Assessment/Plan Assessment/Plan ASSESSMENT: chronic encephalopathy, dementia, diffuse infiltrates, elevated BNP hypertension, recurrent falls, and urinary tract infection, hypoxemia, probable aspiration pneumonia. acute respiratory failure hypoxemic PLAN care noted and d/w Dr. Gilmore respiratory care as is vent support followup CXR and ABG proceed with trach Full code medications/laboratory data/nursing notes/ICU care reviewed in detail note reviewed and edited care discussed with RN and RT ICU time spent >40 minutes Eriberto Valencia MD Aug 21, 2020 12:33
--- NOTE | 2020-08-21 14:55 | NUR ---
CASE MANAGEMENT:REVIEW 08/21/20 SI: ACUTE RESPIRATORY FAILURE INTUBATED ON VENT SUPPORT 99.0 83 30 143/60 100% VENT SUPPORT WBC+15.7 H/H-8.7/25.5 NA-130 BUN+26 VENT: FIO2 100% AC 20 TV 500 PEEP 5.0 IS: IV ZOSYN Q8HRS IVF@50/HR AMIODARONE NG QD LOPRESSOR NG Q12 HEPARIN SQ Q12 : ICU STATUS
--- NOTE | 2020-08-21 18:22 | NUR ---
NURSE NOTES: LEVODOPA held at this time pending CXR for NGT placement confirmation.
--- NOTE | 2020-08-21 18:23 | NUR ---
HAND-OFF: Report given to BLANE Hartman.
--- NOTE | 2020-08-21 18:24 | NUR ---
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 Pt is obtunded, opens eyes spontaneously, unable to follow commands, pupils equal and round 3mm w/ sluggish rxn to light ; gag reflex intact. 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 3+ pitting edema noted to hands and 1+ pitting edema to feet. Pt is afebrile w/ ice packs noted axilla. cap refill less than 2 sec. Pt is orally intubated with a 7.5 ETT noted 25cm at the lip with the following: AC 20 TV 500 FiO2 70% Peep 5 - All lung castanon noted diminished upon auscultation. NGT currently inserted in right naris at approximately 70 cm (STAT KUB ordered for placement confirmation). Abdomen is round, soft, and non-tender. 1 BM noted and pt cleaned. F/C noted draining yellow/pink urine. Skin alterations noted. Pt has a INÉS 20g IV running NS at 50 cc/hr. 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 Skin to both wrists intact without redness. radial pulses palpable. Bed in lowest position, alarm on, side rails up x 2, call light within reach. Will continue to monitor.
--- NOTE | 2020-08-21 19:05 | NUR ---
NURSE HAND-OFF REPORT: Latest Vital Signs: Temperature 98.7 , Pulse 107 , B/P 121 /59 , Respiratory Rate 28 , O2 SAT 99 , Mechanical Ventilator, FiO2 down to 70%. Vital Sign Comment: stable EKG Rhythm: Sinus Tachycardia Rhythm change?: N MD Notified?: n/a MD Response: n/a Latest José Fall Score: 75 Fall Risk: High Risk Safety Measures: Call light Within Reach, Bed Alarm Zone 1, Side Rails Side Rails x3, Bed position Low and Locked. Fall Precautions: Yellow Socks Yellow Gown Door Sign Patient Fall Education Endorsed to continue titrating down FiO2 and f/u w/ KUB results to resume tube feeding. Report given to Kerry Burton RN. Addendum: 08/21/20 at 1909 by Minnie Jackson RN Amendment: FiO2 down to 60% at this time.
--- NOTE | 2020-08-21 19:05 | Diagnostic Imaging Report ---
EXAM: XR Abdomen, 1 View CLINICAL HISTORY: TUBE PLCMT TECHNIQUE: Frontal supine view of the abdomen/pelvis. COMPARISON: No relevant prior studies available. FINDINGS: Lower thorax: Bilateral pulmonary opacities. Gastrointestinal tract: Paucity of bowel gas. Residual contrast in the colon. Bones/joints: No acute fracture. Tubes, lines and devices: Enteric tube in the stomach. Other findings: 08/21/20 at 1843. IMPRESSION: Enteric tube in the stomach.
--- NOTE | 2020-08-21 19:10 | NUR ---
NURSE NOTES: Tube feeding resumed at 10 cc/hr (KUB results confirmed satisfactory NGT placement in stomach).
--- NOTE | 2020-08-21 19:20 | NUR ---
NURSE NOTES: Received report from BLANE Hartman. Covid negative/PUI. Pt is obtunded and orally intubated. ETT 7.5/25cm from lipline. Vent setting: TV 500, AC 20, FIO2 60%%, PEEP 5. Suctioned moderate amount of yellowish secretions noted. Re-inserted NGT on RT nares, KUB done. Re-started OSMOLITE @10mL/hr. Overton yellow urine noted and draining well. IV MARY 20G NS @50mL/hr is running. Bilaterally soft wrist restrains in place to prevent from pulling lines. Temp 98.9 Afebrile and VSS. Safety measures observed and no acute distress noted. Will continue to monitor.
--- NOTE | 2020-08-21 21:00 | NUR ---
NURSE NOTES: PM meds given. Turned and repositioned. Oral cafe provided.
[2020-08-22] VITALS (24 sets, daily range): BP systolic 87–156; BP diastolic 39–70
--- NOTE | 2020-08-22 | NUR ---
NURSE NOTES: Pt remains obtunded and orally intubated. ETT 7.5/25cm from lipline. Vent setting: TV 500, AC 20, FIO2 60%%, PEEP 5. Suctioned moderate amount of yellowish secretions noted. NGT on RT nares, CDI. OSMOLITE @10mL/hr is running. Overton yellow urine noted and draining well. IV MARY 20G NS @50mL/hr is running. Bilaterally soft wrist restrains in place to prevent from pulling lines. Safety measures observed and no acute distress noted. Will continue to monitor.
--- NOTE | 2020-08-22 03:00 | NUR ---
NURSE NOTES: AM care provided. Changed soiled gowns, linens, and sliders. Turned and repositioned. Oral care provided. Optiform changed.
[2020-08-22 05:57] LABS: HEMATOCRIT 26.3 % (42.0-52.0); HEMOGLOBIN 9.1 G/DL (14.2-18.0); MEAN CORPUSCULAR VOLUME 87 FL (80-99); PLATELET COUNT 200 K/UL (150-450); RED CELL DISTRIBUTION WIDTH 13.9 % (11.6-14.8); WHITE BLOOD COUNT 16.6 K/UL (4.8-10.8)
[2020-08-22] MEDS: Piperacillin/Tazobactam 3.375 GM in NS 110 ML IVPB SCH ×3 (05:58→21:00)
[2020-08-22 06:28] LABS: ALANINE AMINOTRANSFERASE 23 U/L (12-78); ALBUMIN 0.7 G/DL (3.4-5.0); ALBUMIN/GLOBULIN RATIO 0.2 (1.0-2.7); ALKALINE PHOSPHATASE 86 U/L (46-116); ANION GAP 5 mmol/L (5-15); ASPARTATE AMINO TRANSFERASE 36 U/L (15-37); BILIRUBIN,TOTAL 0.5 MG/DL (0.2-1.0); BLOOD UREA NITROGEN 30 mg/dL (7-18); CALCIUM 7.4 MG/DL (8.5-10.1); CARBON DIOXIDE 30 MMOL/L (21-32); CHLORIDE 101 MMOL/L (98-107); CREATININE 1.1 MG/DL (0.55-1.30); POTASSIUM 3.1 MMOL/L (3.5-5.1); SODIUM 136 MMOL/L (136-145)
--- NOTE | 2020-08-22 07:30 | NUR ---
HAND-OFF: Report given to BLANE Cano. Endorsed POC.
--- NOTE | 2020-08-22 07:30 | NUR ---
NURSE NOTES: Received report from Kerry ARGUELLES.
[2020-08-22] MEDS: Levodopa/Carbidopa 25/100 tab NG SCH ×3 (08:04→18:21)
[2020-08-22] MEDS: Amiodarone 200mg tab NG SCH (08:04)
[2020-08-22] MEDS: Heparin 5000 units/ml inj SUBQ SCH ×2 (08:05→21:02)
--- NOTE | 2020-08-22 09:05 | NUR ---
NURSE NOTES: Pt. in bed, open eyes when call his name. No sign of distress. EET in placed with vent setting AC20/VT500/Fi O2 at 60%/P5. No grimacing noted. NGT in placed patent/intact running Osmolite at 10cc/hr. IV site at right upper arm #20g. in placed patent/intact running NS at 50cc/hr. F/C in placed patent/intact draining yellow colored urine. Bed in low position, locked. Call light within reach. Will cont. to monitor.
--- NOTE | 2020-08-22 09:34 | Pulmonology Progress Note ---
Subjective ROS Limited/Unobtainable: Yes Constitutional: Denies: fever Allergies: Coded Allergies: No Known Allergies (Unverified , 08/02/20) All Systems: reviewed and negative except above Subjective care noted remains intubated diffuse infiltrates on CXR/ oxygenation better poor LOC sedated Objective Last 24 Hour Vital Signs Date Time Temp Pulse Resp B/P (MAP) Pulse Ox O2 Delivery O2 Flow Rate FiO2 08/22/20 09:00 72 22 115/51 (72) 98 08/22/20 08:04 95 125/65 08/22/20 08:00 70 08/22/20 08:00 Mechanical Ventilator 08/22/20 08:00 60 08/22/20 08:00 89 23 125/65 (85) 99 08/22/20 07:00 88 26 141/61 (87) 99 08/22/20 06:00 98.9 90 28 156/68 (97) 98 08/22/20 05:00 79 20 103/60 (74) 98 08/22/20 04:00 94 08/22/20 04:00 Mechanical Ventilator 08/22/20 04:00 97 22 146/66 (92) 95 08/22/20 04:00 70 08/22/20 03:40 104 26 80 08/22/20 03:00 88 23 138/67 (90) 94 08/22/20 02:00 81 27 136/59 (84) 96 08/22/20 01:00 65 20 97/44 (61) 99 08/22/20 00:00 Mechanical Ventilator 08/22/20 00:00 70 08/22/20 00:00 98.7 67 20 97/43 (61) 100 08/21/20 23:00 78 20 80 08/21/20 23:00 90 25 120/53 (75) 98 08/21/20 22:00 77 20 101/51 (68) 99 08/21/20 21:00 92 27 140/58 (85) 98 08/21/20 21:00 91 101/51 08/21/20 20:00 90 08/21/20 20:00 Mechanical Ventilator 08/21/20 20:00 98.9 99 27 140/84 (102) 96 08/21/20 19:11 87 20 80 08/21/20 19:09 70 08/21/20 19:00 85 18 103/44 (63) 100 08/21/20 19:00 60 08/21/20 18:00 98.7 107 28 121/59 (79) 99 08/21/20 18:00 70 08/21/20 17:00 89 28 92/51 (65) 98 08/21/20 17:00 80 08/21/20 16:00 Mechanical Ventilator 08/21/20 16:00 90 08/21/20 16:00 99.0 96 30 127/50 (75) 98 08/21/20 16:00 88 08/21/20 15:00 99 25 117/50 (72) 100 08/21/20 14:50 101 27 80 08/21/20 14:00 95 26 130/56 (80) 100 08/21/20 13:00 96 25 150/70 (96) 100 08/21/20 12:00 Mechanical Ventilator Mechanical Ventilator 08/21/20 12:00 97.6 92 25 96/61 (73) 100 08/21/20 12:00 66 08/21/20 12:00 100 08/21/20 11:47 88 22 100 08/21/20 11:00 92 24 120/54 (76) 100 08/21/20 10:00 84 27 121/54 (76) 100 Intake and Output 08/21/20 08/22/20 19:00 07:00 Intake Total 907.5 ml 700 ml Output Total 1275 ml 300 ml Balance -367.5 ml 400 ml Free Water 80 ml 30 ml IV Total 767.5 ml 550 ml Tube Feeding 60 ml 120 ml Output Urine Total 1275 ml 300 ml # Bowel Movements 3 Objective WDWN NAD reduced breath sounds bilaterally with scattered rhonchi (not improved) [id number] NABS nontender no CCE nonfocal on BIPAP poorly responsive Laboratory Tests 08/22/20 04:45: White Blood Count 16.6H, Red Blood Count 3.00L, Hemoglobin 9.1L, Hematocrit 26.3L, Mean Corpuscular Volume 87, Mean Corpuscular Hemoglobin 30.4, Mean Corpuscular Hemoglobin Concent 34.8, Red Cell Distribution Width 13.9, Platelet Count 200, Mean Platelet Volume 10.4H, Neutrophils (%) (Auto) , Lymphocytes (%) (Auto) , Monocytes (%) (Auto) , Eosinophils (%) (Auto) , Basophils (%) (Auto) , Neutrophils % (Manual) [Pending], Lymphocytes % (Manual) [Pending], Platelet Estimate [Pending], Platelet Morphology [Pending], Sodium Level 136, Potassium Level 3.1L, Chloride Level 101, Carbon Dioxide Level 30, Anion Gap 5, Blood Urea Nitrogen 30H, Creatinine 1.1, Estimat Glomerular Filtration Rate > 60, Glucose Level 87, Calcium Level 7.4L, Total Bilirubin 0.5, Aspartate Amino Transf (AST/S GOT) 36, Alanine Aminotransferase (ALT/SGPT) 23, Alkaline Phosphatase 86, Total Protein 4.6L, Albumin 0.7L, Globulin 3.9, Albumin/Globulin Ratio 0.2L Current Medications Medications (Trade) Dose Ordered Sig/Javon Route PRN Reason Start Time Stop Time Status Last Admin Dose Admin Acetaminophen (Tylenol) 650 mg Q4H PRN ORAL Mild Pain (Pain Scale 1-3) 08/03/20 01:15 09/02/20 01:14 08/20/20 09:37 Acetaminophen (Tylenol) 650 mg Q4H PRN RECTAL Mild Pain (Pain Scale 1-3) 08/03/20 01:15 09/02/20 01:14 08/04/20 18:32 Amiodarone HCl (Cordarone) 200 mg DAILY NG 08/17/20 09:00 11/15/20 08:59 08/22/20 08:04 Carbidopa/Levodopa (Sinemet 25/100) 1 tab THREE TIMES A DAY NG 08/09/20 18:00 09/02/20 08:59 08/22/20 08:04 Heparin Sodium (Porcine) (Heparin 5000 units/ml) 5,000 units EVERY 12 HOURS SUBQ 08/03/20 09:00 09/17/20 08:59 08/22/20 08:05 Hydralazine HCl (Apresoline) 25 mg Q6H PRN NG SBP above 160 08/11/20 22:30 11/05/20 00:29 08/12/20 15:09 Magnesium Hydroxide (Mom) 30 ml DAILYPRN PRN GT Constipation 08/12/20 09:00 09/11/20 08:59 Metoclopramide HCl (Reglan) 5 mg Q8H PRN IVP Nausea & Vomiting 08/15/20 13:00 09/14/20 12:59 Metoprolol Tartrate (Lopressor) 25 mg Q12HR NG 08/13/20 09:00 11/11/20 08:59 08/22/20 08:04 Morphine Sulfate (Morphine Sulfate) 1 mg Q4H PRN IVP Moderate Pain (Pain Scale 4-6) 08/15/20 18:30 08/22/20 18:29 08/18/20 16:54 Piperacillin Sod/ Tazobactam Sod 3.375 gm/Sodium Chloride 110 ml @ 27.5 mls/hr EVERY 8 HOURS IVPB 08/21/20 14:00 08/28/20 13:59 08/22/20 05:58 Sodium Chloride 1,000 ml @ 50 mls/hr Q20H IV 08/21/20 07:30 09/20/20 07:29 08/22/20 03:00 Assessment/Plan Assessment/Plan ASSESSMENT: chronic encephalopathy, dementia, diffuse infiltrates, elevated BNP hypertension, recurrent falls, and urinary tract infection, hypoxemia, probable aspiration pneumonia. acute respiratory failure hypoxemic PLAN care noted and d/w Dr. Gilmore taper fio2 respiratory care as is vent support followup CXR and ABG for change; ordered suction off load proceed with trach and GT Full code for now per family medications/laboratory data/nursing notes/ICU care reviewed in detail note reviewed and edited care discussed with RN and RT ICU time spent >40 minutes Eriberto Valencia MD Aug 22, 2020 09:34
--- NOTE | 2020-08-22 11:30 | NUR ---
NURSE NOTES: Updated family (grand dtr) regarding pt. labs. She appreciated the update.
--- NOTE | 2020-08-22 11:34 | Infectious Diseases Prog Note ---
Assessment/Plan Assessment/Plan antibiotics : zosyn A 1. Right-sided pneumonia. 2. COVID-19 test is negative. 3. Urinary tract infection. 4. Hypertension. 5. Dementia. 6. Respiratory failure. 7. leucocytosis P 1. continue iv zosyn 2. will follow up cultures 3. poor prognosis Subjective ROS Limited/Unobtainable: Yes Allergies: Coded Allergies: No Known Allergies (Unverified , 08/02/20) Objective Last 24 Hour Vital Signs Date Time Temp Pulse Resp B/P (MAP) Pulse Ox O2 Delivery O2 Flow Rate FiO2 08/22/20 11:00 98.1 74 22 120/59 (79) 98 08/22/20 10:00 71 25 110/47 (68) 99 08/22/20 09:00 72 22 115/51 (72) 98 08/22/20 08:04 95 125/65 08/22/20 08:00 70 08/22/20 08:00 Mechanical Ventilator 08/22/20 08:00 60 08/22/20 08:00 89 23 125/65 (85) 99 08/22/20 07:11 63 20 80 08/22/20 07:00 88 26 141/61 (87) 99 08/22/20 06:00 98.9 90 28 156/68 (97) 98 08/22/20 05:00 79 20 103/60 (74) 98 08/22/20 04:00 94 08/22/20 04:00 Mechanical Ventilator 08/22/20 04:00 97 22 146/66 (92) 95 08/22/20 04:00 70 08/22/20 03:40 104 26 80 08/22/20 03:00 88 23 138/67 (90) 94 08/22/20 02:00 81 27 136/59 (84) 96 08/22/20 01:00 65 20 97/44 (61) 99 08/22/20 00:00 Mechanical Ventilator 08/22/20 00:00 70 08/22/20 00:00 98.7 67 20 97/43 (61) 100 08/21/20 23:00 78 20 80 08/21/20 23:00 90 25 120/53 (75) 98 08/21/20 22:00 77 20 101/51 (68) 99 08/21/20 21:00 92 27 140/58 (85) 98 08/21/20 21:00 91 101/51 08/21/20 20:00 90 08/21/20 20:00 Mechanical Ventilator 08/21/20 20:00 98.9 99 27 140/84 (102) 96 08/21/20 19:11 87 20 80 08/21/20 19:09 70 08/21/20 19:00 85 18 103/44 (63) 100 08/21/20 19:00 60 08/21/20 18:00 98.7 107 28 121/59 (79) 99 08/21/20 18:00 70 08/21/20 17:00 89 28 92/51 (65) 98 08/21/20 17:00 80 08/21/20 16:00 Mechanical Ventilator 08/21/20 16:00 90 08/21/20 16:00 99.0 96 30 127/50 (75) 98 08/21/20 16:00 88 08/21/20 15:00 99 25 117/50 (72) 100 08/21/20 14:50 101 27 80 08/21/20 14:00 95 26 130/56 (80) 100 08/21/20 13:00 96 25 150/70 (96) 100 08/21/20 12:00 Mechanical Ventilator Mechanical Ventilator 08/21/20 12:00 97.6 92 25 96/61 (73) 100 08/21/20 12:00 66 08/21/20 12:00 100 08/21/20 11:47 88 22 100 Height (Feet): 5 Height (Inches): 5.00 Weight (Pounds): 99 Respiratory/Chest: lungs clear Cardiovascular: normal rate, regular rhythm, no gallop/murmur Abdomen: soft, non tender Extremities: no edema Laboratory Tests Test 08/22/20 04:45 White Blood Count 16.6 K/UL (4.8-10.8) H Red Blood Count 3.00 M/UL (4.70-6.10) L Hemoglobin 9.1 G/DL (14.2-18.0) L Hematocrit 26.3 % (42.0-52.0) L Mean Corpuscular Volume 87 FL (80-99) Mean Corpuscular Hemoglobin 30.4 PG (27.0-31.0) Mean Corpuscular Hemoglobin Concent 34.8 G/DL (32.0-36.0) Red Cell Distribution Width 13.9 % (11.6-14.8) Platelet Count 200 K/UL (150-450) Mean Platelet Volume 10.4 FL (6.5-10.1) H Neutrophils (%) (Auto) % (45.0-75.0) Lymphocytes (%) (Auto) % (20.0-45.0) Monocytes (%) (Auto) % (1.0-10.0) Eosinophils (%) (Auto) % (0.0-3.0) Basophils (%) (Auto) % (0.0-2.0) Differential Total Cells Counted 100 Neutrophils % (Manual) 97 % (45-75) H Lymphocytes % (Manual) 1 % (20-45) L Monocytes % (Manual) 1 % (1-10) Eosinophils % (Manual) 1 % (0-3) Basophils % (Manual) 0 % (0-2) Band Neutrophils 0 % (0-8) Platelet Estimate Adequate Platelet Morphology Normal Hypochromasia 1+ Sodium Level 136 MMOL/L (136-145) Potassium Level 3.1 MMOL/L (3.5-5.1) L Chloride Level 101 MMOL/L (98-107) Carbon Dioxide Level 30 MMOL/L (21-32) Anion Gap 5 mmol/L (5-15) Blood Urea Nitrogen 30 mg/dL (7-18) H Creatinine 1.1 MG/DL (0.55-1.30) Estimat Glomerular Filtration Rate > 60 mL/min (>60) Glucose Level 87 MG/DL (74-106) Calcium Level 7.4 MG/DL (8.5-10.1) L Total Bilirubin 0.5 MG/DL (0.2-1.0) Aspartate Amino Transf (AST/SGOT) 36 U/L (15-37) Alanine Aminotransferase (ALT/SGPT) 23 U/L (12-78) Alkaline Phosphatase 86 U/L (46-116) Total Protein 4.6 G/DL (6.4-8.2) L Albumin 0.7 G/DL (3.4-5.0) L Globulin 3.9 g/dL Albumin/Globulin Ratio 0.2 (1.0-2.7) L Current Medications Medications (Trade) Dose Ordered Sig/Javon Route PRN Reason Start Time Stop Time Status Last Admin Dose Admin Acetaminophen (Tylenol) 650 mg Q4H PRN ORAL Mild Pain (Pain Scale 1-3) 08/03/20 01:15 09/02/20 01:14 08/20/20 09:37 Acetaminophen (Tylenol) 650 mg Q4H PRN RECTAL Mild Pain (Pain Scale 1-3) 08/03/20 01:15 09/02/20 01:14 08/04/20 18:32 Amiodarone HCl (Cordarone) 200 mg DAILY NG 08/17/20 09:00 11/15/20 08:59 08/22/20 08:04 Carbidopa/Levodopa (Sinemet 25/100) 1 tab THREE TIMES A DAY NG 08/09/20 18:00 09/02/20 08:59 08/22/20 08:04 Heparin Sodium (Porcine) (Heparin 5000 units/ml) 5,000 units EVERY 12 HOURS SUBQ 08/03/20 09:00 09/17/20 08:59 08/22/20 08:05 Hydralazine HCl (Apresoline) 25 mg Q6H PRN NG SBP above 160 08/11/20 22:30 11/05/20 00:29 08/12/20 15:09 Magnesium Hydroxide (Mom) 30 ml DAILYPRN PRN GT Constipation 08/12/20 09:00 09/11/20 08:59 Metoclopramide HCl (Reglan) 5 mg Q8H PRN IVP Nausea & Vomiting 08/15/20 13:00 09/14/20 12:59 Metoprolol Tartrate (Lopressor) 25 mg Q12HR NG 08/13/20 09:00 11/11/20 08:59 08/22/20 08:04 Morphine Sulfate (Morphine Sulfate) 1 mg Q4H PRN IVP Moderate Pain (Pain Scale 4-6) 08/15/20 18:30 08/22/20 18:29 08/18/20 16:54 Piperacillin Sod/ Tazobactam Sod 3.375 gm/Sodium Chloride 110 ml @ 27.5 mls/hr EVERY 8 HOURS IVPB 08/21/20 14:00 08/28/20 13:59 08/22/20 05:58 Sodium Chloride 1,000 ml @ 50 mls/hr Q20H IV 08/21/20 07:30 09/20/20 07:29 08/22/20 03:00 Wagner Christensen MD Aug 22, 2020 11:34
[2020-08-22] MEDS ORDERED: Tubing IV Secondary IV ONE (11:55)
[2020-08-22] MEDS ORDERED: NS 275ml ONE (11:55)
[2020-08-22] MEDS ORDERED: NS 500ML ONE (11:55)
--- NOTE | 2020-08-22 12:30 | NUR ---
NURSE NOTES: Turned and reposition Q2. No s/sx of distress. Pt. remain stable.
--- NOTE | 2020-08-22 12:40 | General Progress Note ---
Subjective Constitutional: Reports: malaise, weakness HEENT: Reports: no symptoms Cardiovascular: Reports: no symptoms Respiratory: Reports: shortness of breath, SOB at rest Gastrointestinal/Abdominal: Reports: difficulty swallowing Genitourinary: Reports: no symptoms Neurologic/Psychiatric: Reports: pre-existing deficit Endocrine: Reports: no symptoms Hematologic/Lymphatic: Reports: anemia Allergies: Coded Allergies: No Known Allergies (Unverified , 08/02/20) All Systems: reviewed and negative except above Subjective No significant overnight events. Remained stable on the ventilator. Decreased O2 requirements. Now on 60 to 80%. Minimal secretions. Labs reviewed. Poorly responsive. Tolerating feedings. Objective Last 24 Hour Vital Signs Date Time Temp Pulse Resp B/P (MAP) Pulse Ox O2 Delivery O2 Flow Rate FiO2 08/22/20 11:16 78 27 80 08/22/20 11:00 98.1 74 22 120/59 (79) 98 08/22/20 10:00 71 25 110/47 (68) 99 08/22/20 09:00 72 22 115/51 (72) 98 08/22/20 08:04 95 125/65 08/22/20 08:00 70 08/22/20 08:00 Mechanical Ventilator 08/22/20 08:00 60 08/22/20 08:00 89 23 125/65 (85) 99 08/22/20 07:55 90 08/22/20 07:11 63 20 80 08/22/20 07:00 88 26 141/61 (87) 99 08/22/20 06:00 98.9 90 28 156/68 (97) 98 08/22/20 05:00 79 20 103/60 (74) 98 08/22/20 04:00 94 08/22/20 04:00 Mechanical Ventilator 08/22/20 04:00 97 22 146/66 (92) 95 08/22/20 04:00 70 08/22/20 03:40 104 26 80 08/22/20 03:00 88 23 138/67 (90) 94 08/22/20 02:00 81 27 136/59 (84) 96 08/22/20 01:00 65 20 97/44 (61) 99 08/22/20 00:00 Mechanical Ventilator 08/22/20 00:00 70 08/22/20 00:00 98.7 67 20 97/43 (61) 100 08/21/20 23:00 78 20 80 08/21/20 23:00 90 25 120/53 (75) 98 08/21/20 22:00 77 20 101/51 (68) 99 08/21/20 21:00 92 27 140/58 (85) 98 08/21/20 21:00 91 101/51 08/21/20 20:00 90 08/21/20 20:00 Mechanical Ventilator 08/21/20 20:00 98.9 99 27 140/84 (102) 96 08/21/20 19:11 87 20 80 08/21/20 19:09 70 08/21/20 19:00 85 18 103/44 (63) 100 08/21/20 19:00 60 08/21/20 18:00 98.7 107 28 121/59 (79) 99 08/21/20 18:00 70 08/21/20 17:00 89 28 92/51 (65) 98 08/21/20 17:00 80 08/21/20 16:00 Mechanical Ventilator 08/21/20 16:00 90 08/21/20 16:00 99.0 96 30 127/50 (75) 98 08/21/20 16:00 88 08/21/20 15:00 99 25 117/50 (72) 100 08/21/20 14:50 101 27 80 08/21/20 14:00 95 26 130/56 (80) 100 08/21/20 13:00 96 25 150/70 (96) 100 Intake and Output 08/21/20 08/22/20 19:00 07:00 Intake Total 907.5 ml 700 ml Output Total 1275 ml 300 ml Balance -367.5 ml 400 ml Free Water 80 ml 30 ml IV Total 767.5 ml 550 ml Tube Feeding 60 ml 120 ml Output Urine Total 1275 ml 300 ml # Bowel Movements 3 Laboratory Tests 08/22/20 04:45: White Blood Count 16.6H, Red Blood Count 3.00L, Hemoglobin 9.1L, Hematocrit 26.3L, Mean Corpuscular Volume 87, Mean Corpuscular Hemoglobin 30.4, Mean Corpuscular Hemoglobin Concent 34.8, Red Cell Distribution Width 13.9, Platelet Count 200, Mean Platelet Volume 10.4H, Neutrophils (%) (Auto) , Lymphocytes (%) (Auto) , Monocytes (%) (Auto) , Eosinophils (%) (Auto) , Basophils (%) (Auto) , Differential Total Cells Counted 100, Neutrophils % (Manual) 97H, Lymphocytes % (Manual) 1L, Monocytes % (Manual) 1, Eosinophils % (Manual) 1, Basophils % (Manual) 0, Band Neutrophils 0, Platelet Estimate Adequate, Platelet Morphology Normal, Hypochromasia 1+, Sodium Level 136, Potassium Level 3.1L, Chloride Level 101, Carbon Dioxide Level 30, Anion Gap 5, Blood Urea Nitrogen 30H, Creatinine 1.1, Estimat Glomerular Filtration Rate > 60, Glucose Level 87, Calcium Level 7.4L, Total Bilirubin 0.5, Aspartate Amino Transf (AST/SGOT) 36, Alanine Aminotransferase (ALT/SGPT) 23, Alkaline Phosphatase 86, Total Protein 4.6L, Albumin 0.7L, Globulin 3.9, Albumin/Globulin Ratio 0.2L Height (Feet): 5 Height (Inches): 5.00 Weight (Pounds): 99 Objective General Appearance: WD/WN, confused, thin. on bipap EENT: normal ENT inspection Neck: non-tender, normal alignment, supple Cardiovascular: normal rate, regular rhythm Respiratory/Chest: chest wall non-tender, lungs clear, normal breath sounds, no respiratory distress, no accessory muscle use Abdomen: normal bowel sounds, non tender, soft, no organomegaly Edema: no edema noted Arm (L), no edema noted Arm (R) Assessment/Plan Problem List: (1) Pneumonia ICD Codes: J18.9 - Pneumonia, unspecified organism SNOMED: 415748077 (2) Hypoxia ICD Codes: R09.02 - Hypoxemia SNOMED: 947017973 (3) AMS (altered mental status) ICD Codes: R41.82 - Altered mental status, unspecified SNOMED: 605456800 (4) UTI (urinary tract infection) ICD Codes: N39.0 - Urinary tract infection, site not specified SNOMED: 08428677 (5) Sepsis ICD Codes: A41.9 - Sepsis, unspecified organism SNOMED: 48428512 Status: stable, not improved Assessment/Plan: vent support wean as able- doubt sputum cultures repeat covid pcr ngt feeds suctioning monitor labs/lytes- replace k replace as needed dvt/stress ulcer prophylaxis very poor prognosis dw/ family- if needed they want to proceed with trach and peg Chavez Gilmore MD Aug 22, 2020 12:40
--- NOTE | 2020-08-22 13:35 | NUR ---
NURSE NOTES: Pt. opens eyes at times. Bilateral soft wrist restrains in placed. + CMS. Pt. remain stable.
--- NOTE | 2020-08-22 14:30 | NUR ---
NURSE NOTES: Pt. off the unit for CT of the head. Accompanied by RN, RT and medical delivery technician. Pt. in stable condition.
--- NOTE | 2020-08-22 15:10 | NUR ---
NURSE NOTES: Pt. back on the unit on stable condition.
--- NOTE | 2020-08-22 16:39 | Diagnostic Imaging Report ---
EXAM: CT Head Without Intravenous Contrast CLINICAL HISTORY: AMS TECHNIQUE: Axial computed tomography images of the head/brain without intravenous contrast. CTDI is 53.4 mGy and DLP is 1072.5 mGy-cm. One or more of the following dose reduction techniques were used: automated exposure control, adjustment of the mA and/or kV according to patient size, use of iterative reconstruction technique. COMPARISON: No relevant prior studies available. FINDINGS: Brain: Generalized parenchymal volume loss, likely age-related. Periventricular white matter hypodensities. No evidence of acute intracranial hemorrhage. No mass effect or midline shift. Ventricles: Mild distention of the lateral and third ventricles, likely compensatory to the cerebral atrophy. Bones/joints: Unremarkable. No acute fracture. Soft tissues: Unremarkable. Sinuses: Partial opacification of the ethmoid air cells. The frontal and maxillary sinuses are excluded from view and cannot be evaluated. Mastoid air cells: Opacification of bilateral mastoid air cells. Vascular: Atherosclerotic calcifications within the cavernous portions of bilateral ICAs. IMPRESSION: 1. No acute intracranial hemorrhage. No mass effect or midline shift. 2. Bilateral mastoid effusions. 3. Mucosal thickening throughout the ethmoid air cells, which may suggest sinus disease. Remaining paranasal sinuses are excluded from view and cannot be evaluated. 4. Periventricular white matter hypodensities, likely related to chronic small vessel disease changes. 5. Generalized cerebral parenchymal volume loss, likely age-related.
--- NOTE | 2020-08-22 18:50 | NUR ---
NURSE NOTES: Pt. kept clean and dry. Turned and repositioned. Remain stable.
--- NOTE | 2020-08-22 19:15 | NUR ---
NURSE HAND-OFF REPORT: Latest Vital Signs: Temperature 98.1 , Pulse 65 , B/P 87 /44 , Respiratory Rate 20 , O2 SAT 100 , Mechanical Ventilator, O2 Flow Rate 15.0 . Vital Sign Comment: [] EKG Rhythm: Sinus Rhythm Rhythm change?: William KURTZ Notified?: William Montoya MD Response: Message left await call Latest José Fall Score: 75 Fall Risk: High Risk Safety Measures: Call light Within Reach, Bed Alarm Zone 1, Side Rails Side Rails x3, Bed position Low and Locked. Fall Precautions: Yellow Socks Yellow Gown Door Sign Patient Fall Education Report given to Kerry Alarcon RN.
--- NOTE | 2020-08-22 19:20 | NUR ---
NURSE NOTES: Received report from BLANE Cano. Covid negative/PUI. Per AMRN, head CT done and K was replete. Pt is obtunded and orally intubated. ETT 7.5/25cm from lipline. Vent setting: TV 500, AC 20, FIO2 60%%, PEEP 5. Suctioned moderate amount of yellowish secretions noted. NGT on RT nares; however, feedig tube was clogged. using cranberry juice and sodas with lost and found clerk, successfully clog was fixed. Re-started OSMOLITE @10mL/hr. Overton yellow urine noted and draining well. IV MARY 20G NS @50mL/hr is running. Bilaterally soft wrist restrains in place to prevent from pulling lines. Afebrile and VSS. Safety measures observed and no acute distress noted. Will continue to monitor.
--- NOTE | 2020-08-22 21:00 | NUR ---
NURSE NOTES: Turned and repositioned. Oral care provided.
[2020-08-23] VITALS (24 sets, daily range): BP systolic 92–172; BP diastolic 41–100
--- NOTE | 2020-08-23 | NUR ---
NURSE NOTES: Pt is obtunded and orally intubated. ETT remains 7.5/25cm from lipline. Vent setting: TV 500, AC 20, FIO2 down to 50%, PEEP 5. Suctioned moderate amount of yellowish secretions noted. NGT on RT nares; OSMOLITE @10mL/hr, CDI. Overton yellow urine noted and draining well. IV LFA 20G NS @50mL/hr is running. Bilaterally soft wrist restrains in place to prevent from pulling lines. Afebrile and VSS. Safety measures observed and no acute distress noted. Will continue to monitor.
--- NOTE | 2020-08-23 03:00 | NUR ---
NURSE NOTES: Turned and repositioned. Oral care provided.
--- NOTE | 2020-08-23 05:00 | NUR ---
NURSE NOTES: Turned and repositioned. Oral care provided. IV LFA dislodged, sp inserted 2 new IVs. IV LFA 20G NS @50mL/hr is running. and RFA TKO/Zosyn are running and CDI.
[2020-08-23 05:58] LABS: HEMOGLOBIN 9.9 G/DL (14.2-18.0); MEAN CORPUSCULAR VOLUME 92 FL (80-99); PLATELET COUNT 219 K/UL (150-450); RED BLOOD COUNT 3.26 M/UL (4.70-6.10); RED CELL DISTRIBUTION WIDTH 13.3 % (11.6-14.8); WHITE BLOOD COUNT 15.6 K/UL (4.8-10.8)
[2020-08-23] MEDS: Piperacillin/Tazobactam 3.375 GM in NS 110 ML IVPB SCH ×3 (06:02→22:06)
[2020-08-23 06:47] LABS: ALBUMIN 0.9 G/DL (3.4-5.0); ALBUMIN/GLOBULIN RATIO 0.2 (1.0-2.7); BILIRUBIN,TOTAL 0.4 MG/DL (0.2-1.0); CALCIUM 8.2 MG/DL (8.5-10.1); CREATININE 1.2 MG/DL (0.55-1.30); POTASSIUM 3.7 MMOL/L (3.5-5.1)
--- NOTE | 2020-08-23 07:16 | NUR ---
NURSE NOTES: Received updated hand over report from Kerry ARGUELLES.
--- NOTE | 2020-08-23 07:21 | NUR ---
HAND-OFF: Report given to BLANE Cano. Endorsed POC.
--- NOTE | 2020-08-23 07:29 | General Progress Note ---
Subjective ROS Limited/Unobtainable: Yes Constitutional: Reports: malaise, weakness HEENT: Reports: no symptoms Respiratory: Reports: cough, shortness of breath Gastrointestinal/Abdominal: Reports: no symptoms Genitourinary: Reports: no symptoms Neurologic/Psychiatric: Reports: pre-existing deficit Endocrine: Reports: no symptoms Hematologic/Lymphatic: Reports: anemia Allergies: Coded Allergies: No Known Allergies (Unverified , 08/02/20) All Systems: reviewed and negative except above Subjective no events. tachy recently. elevated BP. remains orally intubated. fio2 80%. no fevers. labs reviewed. head CT negative. no improvement Objective Last 24 Hour Vital Signs Date Time Temp Pulse Resp B/P (MAP) Pulse Ox O2 Delivery O2 Flow Rate FiO2 08/23/20 07:00 114 33 172/85 (114) 100 08/23/20 06:00 98.0 117 31 133/70 (91) 100 08/23/20 05:00 90 31 143/69 (93) 98 08/23/20 04:00 75 23 150/65 (93) 100 08/23/20 04:00 Mechanical Ventilator 08/23/20 04:00 73 08/23/20 04:00 50 08/23/20 03:15 86 28 100 08/23/20 03:00 79 25 118/54 (75) 100 08/23/20 02:00 83 24 131/60 (83) 100 08/23/20 01:00 81 28 125/63 (83) 100 08/23/20 00:00 73 08/23/20 00:00 97.9 73 22 104/61 (75) 100 08/23/20 00:00 50 08/23/20 00:00 Mechanical Ventilator 08/22/20 23:00 75 22 119/49 (72) 100 08/22/20 23:00 78 25 100 08/22/20 22:00 62 20 88/39 (55) 100 08/22/20 21:00 98.0 90 29 145/65 (91) 100 08/22/20 20:35 65 87/44 08/22/20 20:00 Mechanical Ventilator 08/22/20 20:00 66 08/22/20 20:00 78 23 117/57 (77) 100 08/22/20 20:00 50 08/22/20 19:43 78 20 100 08/22/20 19:00 65 20 87/44 (58) 100 08/22/20 18:00 71 20 103/55 (71) 100 08/22/20 17:00 98.1 81 23 128/57 (80) 100 08/22/20 16:36 84 23 139/63 (88) 100 08/22/20 16:00 60 08/22/20 16:00 Mechanical Ventilator 08/22/20 15:56 83 08/22/20 15:07 94 25 128/63 (84) 100 08/22/20 14:51 78 25 80 08/22/20 14:00 86 26 115/54 (74) 95 08/22/20 13:00 93 29 152/70 (97) 96 08/22/20 12:38 95 08/22/20 12:00 77 23 126/57 (80) 94 08/22/20 12:00 60 08/22/20 12:00 Mechanical Ventilator 08/22/20 11:16 78 27 80 08/22/20 11:00 98.1 74 22 120/59 (79) 98 08/22/20 10:00 71 25 110/47 (68) 99 08/22/20 09:00 72 22 115/51 (72) 98 08/22/20 08:04 95 125/65 08/22/20 08:00 70 08/22/20 08:00 Mechanical Ventilator 08/22/20 08:00 60 08/22/20 08:00 89 23 125/65 (85) 99 08/22/20 07:55 90 Intake and Output 08/22/20 08/23/20 19:00 07:00 Intake Total 770 ml 670 ml Output Total 355 ml 130 ml Balance 415 ml 540 ml Free Water 100 ml IV Total 550 ml 550 ml Tube Feeding 120 ml 120 ml Output Urine Total 355 ml 130 ml # Bowel Movements 2 3 Laboratory Tests 08/23/20 05:19: White Blood Count 15.6H, Red Blood Count 3.26L, Hemoglobin 9.9L, Hematocrit 30.0L, Mean Corpuscular Volume 92, Mean Corpuscular Hemoglobin 30.5, Mean Corpuscular Hemoglobin Concent 33.1, Red Cell Distribution Width 13.3, Platelet Count 219, Mean Platelet Volume 10.0, Neutrophils (%) (Auto) , Lymphocytes (%) (Auto) , Monocytes (%) (Auto) , Eosinophils (%) (Auto) , Basophils (%) (Auto) , Neutrophils % (Manual) [Pending], Lymphocytes % (Manual) [Pending], Platelet Estimate [Pending], Platelet Morphology [Pending], Sodium Level 140, Potassium Level 3.7, Chloride Level 105, Carbon Dioxide Level 30, Anion Gap 5, Blood Urea Nitrogen 28H, Creatinine 1.2, Estimat Glomerular Filtration Rate 57.1, Glucose Level 117H, Calcium Level 8.2L, Magnesium Level 1.8, Total Bilirubin 0.4, Aspartate Amino Transf (AST/SGOT) 43H, Alanine Aminotransferase (ALT/SGPT) 26, Alkaline Phosphatase 125H, Pro-B-Type Natriuretic Peptide 1954H, Total Protein 5.3L, Albumin 0.9L, Globulin 4.4, Albumin/Globulin Ratio 0.2L Height (Feet): 5 Height (Inches): 5.00 Weight (Pounds): 99 Objective General Appearance: WD/WN, confused, thin. orally intubated EENT: normal ENT inspection Neck: non-tender, normal alignment, supple Cardiovascular: normal rate, regular rhythm Respiratory/Chest: chest wall non-tender, lungs clear, normal breath sounds, no respiratory distress, no accessory muscle use Abdomen: normal bowel sounds, non tender, soft, no organomegaly Edema: no edema noted Arm (L), no edema noted Arm (R) Assessment/Plan Problem List: (1) Pneumonia ICD Codes: J18.9 - Pneumonia, unspecified organism SNOMED: 247452679 (2) Hypoxia ICD Codes: R09.02 - Hypoxemia SNOMED: 334405333 (3) AMS (altered mental status) ICD Codes: R41.82 - Altered mental status, unspecified SNOMED: 404966553 (4) UTI (urinary tract infection) ICD Codes: N39.0 - Urinary tract infection, site not specified SNOMED: 41299558 (5) Sepsis ICD Codes: A41.9 - Sepsis, unspecified organism SNOMED: 26866716 Status: stable, not improved Assessment/Plan: vent support wean as able repeat covid negative ngt feeds suctioning monitor labs/lytes replace as needed iv metoprolol x 1 tele dvt/stress ulcer prophylaxis very poor prognosis dw/ family- if needed they want to proceed with trach and peg Chavez Gilmore MD Aug 23, 2020 07:29
--- NOTE | 2020-08-23 07:45 | NUR ---
NURSE NOTES: Pt. in bed, eyes opens. No sign of distress. Pt. with EET in placed with setting of AC20/VT500/Fi O2 at 60%/P5. No grimacing noted. HOB elevated at all times. NGT in placed at right nares patent/intact running Osmolite at 10cc/hr. Tolerating well. No n/v noted. F/C in placed patent/intact draining light ana lilia urine. IV at right FA#20g. and left FA#20g. in placed patent/intact. Bed in low position, locked. Call light within reach. Will cont. to monitor.
--- NOTE | 2020-08-23 08:10 | NUR ---
NURSE NOTES: Seen by Dr. Gilmore with [facility] at present.
[2020-08-23] MEDS: Amiodarone 200mg tab NG SCH (08:19)
[2020-08-23] MEDS: Heparin 5000 units/ml inj SUBQ SCH ×2 (08:19→21:11)
[2020-08-23] MEDS: Levodopa/Carbidopa 25/100 tab NG SCH ×3 (08:20→18:11)
[2020-08-23] MEDS ORDERED: Metoprolol Tartrate 10 MG in D5W 55 ML IVPB SCH (09:00)
--- NOTE | 2020-08-23 09:30 | NUR ---
NURSE NOTES: Seen by Dr. Valencia with [facility] at present.
--- NOTE | 2020-08-23 11:36 | NUR ---
NURSE NOTES: Pt. remain stable. No s/sx of distress. Turn and repositioned.
--- NOTE | 2020-08-23 11:59 | Pulmonology Progress Note ---
Subjective ROS Limited/Unobtainable: Yes Constitutional: Denies: fever Allergies: Coded Allergies: No Known Allergies (Unverified , 08/02/20) All Systems: reviewed and negative except above Subjective care noted remains intubated diffuse infiltrates on CXR/ oxygenation better poor LOC sedated Objective Last 24 Hour Vital Signs Date Time Temp Pulse Resp B/P (MAP) Pulse Ox O2 Delivery O2 Flow Rate FiO2 08/23/20 11:16 79 32 70 08/23/20 11:00 83 27 117/64 (81) 96 08/23/20 10:00 82 31 110/48 (68) 100 08/23/20 09:00 99.4 86 26 92/41 (58) 100 08/23/20 08:51 99.4 08/23/20 08:20 122 145/99 08/23/20 08:00 50 08/23/20 08:00 Mechanical Ventilator 08/23/20 08:00 100.6 122 33 145/99 (114) 99 08/23/20 07:36 124 34 70 08/23/20 07:31 130 08/23/20 07:00 114 33 172/85 (114) 100 08/23/20 06:00 98.0 117 31 133/70 (91) 100 08/23/20 05:00 90 31 143/69 (93) 98 08/23/20 04:00 75 23 150/65 (93) 100 08/23/20 04:00 Mechanical Ventilator 08/23/20 04:00 73 08/23/20 04:00 50 08/23/20 03:15 86 28 100 08/23/20 03:00 79 25 118/54 (75) 100 08/23/20 02:00 83 24 131/60 (83) 100 08/23/20 01:00 81 28 125/63 (83) 100 08/23/20 00:00 73 08/23/20 00:00 97.9 73 22 104/61 (75) 100 08/23/20 00:00 50 08/23/20 00:00 Mechanical Ventilator 08/22/20 23:00 75 22 119/49 (72) 100 08/22/20 23:00 78 25 100 08/22/20 22:00 62 20 88/39 (55) 100 08/22/20 21:00 98.0 90 29 145/65 (91) 100 08/22/20 20:35 65 87/44 08/22/20 20:00 Mechanical Ventilator 08/22/20 20:00 66 08/22/20 20:00 78 23 117/57 (77) 100 08/22/20 20:00 50 08/22/20 19:43 78 20 100 08/22/20 19:00 65 20 87/44 (58) 100 08/22/20 18:00 71 20 103/55 (71) 100 08/22/20 17:00 98.1 81 23 128/57 (80) 100 08/22/20 16:36 84 23 139/63 (88) 100 08/22/20 16:00 60 08/22/20 16:00 Mechanical Ventilator 08/22/20 15:56 83 08/22/20 15:07 94 25 128/63 (84) 100 08/22/20 14:51 78 25 80 08/22/20 14:00 86 26 115/54 (74) 95 08/22/20 13:00 93 29 152/70 (97) 96 08/22/20 12:38 95 08/22/20 12:00 77 23 126/57 (80) 94 08/22/20 12:00 60 08/22/20 12:00 Mechanical Ventilator Intake and Output 08/22/20 08/23/20 19:00 07:00 Intake Total 770 ml 670 ml Output Total 355 ml 130 ml Balance 415 ml 540 ml Free Water 100 ml IV Total 550 ml 550 ml Tube Feeding 120 ml 120 ml Output Urine Total 355 ml 130 ml # Bowel Movements 2 3 Objective WDWN NAD reduced breath sounds bilaterally with scattered rhonchi (not improved) [id number] NABS nontender no CCE nonfocal on BIPAP poorly responsive Microbiology Date/Time Source Procedure Growth Status 08/21/20 02:45 Nasopharynx Coronavirus COVID-19 PCR ([facility]UL[facility]) - Final Complete Laboratory Tests 08/23/20 05:19: White Blood Count 15.6H, Red Blood Count 3.26L, Hemoglobin 9.9L, Hematocrit 30.0L, Mean Corpuscular Volume 92, Mean Corpuscular Hemoglobin 30.5, Mean Corpuscular Hemoglobin Concent 33.1, Red Cell Distribution Width 13.3, Platelet Count 219, Mean Platelet Volume 10.0, Neutrophils (%) (Auto) , Lymphocytes (%) (Auto) , Monocytes (%) (Auto) , Eosinophils (%) (Auto) , Basophils (%) (Auto) , Differential Total Cells Counted 100, Neutrophils % (Manual) 93H, Lymphocytes % (Manual) 3L, Monocytes % (Manual) 2, Eosinophils % (Manual) 2, Basophils % (Manual) 0, Band Neutrophils 0, Platelet Estimate Adequate, Platelet Morphology Normal, Hypochromasia 1+, Sodium Level 140, Potassium Level 3.7, Chloride Level 105, Carbon Dioxide Level 30, Anion Gap 5, Blood Urea Nitrogen 28H, Creatinine 1.2, Estimat Glomerular Filtration Rate 57.1, Glucose Level 117H, Calcium Level 8.2L, Magnesium Level 1.8, Total Bilirubin 0.4, Aspartate Amino Transf (AST/SGOT) 43H, Alanine Aminotransferase (ALT/SGPT) 26, Alkaline Phosphatase 125H, Pro-B-Type Natriuretic Peptide 1954H, Total Protein 5.3L, Albumin 0.9L, Globulin 4.4, Albumin/Globulin Ratio 0.2L 08/23/20 07:34: Arterial Blood pH 7.399, Arterial Blood Partial Pressure CO2 45.4H, Arterial Blood Partial Pressure O2 71.9L, Arterial Blood HCO3 27.4H, Arterial Blood Oxygen Saturation 93.3L, Arterial Blood Base Excess 2.2H, Emile Test Positive Current Medications Medications (Trade) Dose Ordered Sig/Javon Route PRN Reason Start Time Stop Time Status Last Admin Dose Admin Acetaminophen (Tylenol) 650 mg Q4H PRN ORAL Mild Pain (Pain Scale 1-3) 08/03/20 01:15 09/02/20 01:14 08/23/20 08:21 Acetaminophen (Tylenol) 650 mg Q4H PRN RECTAL Mild Pain (Pain Scale 1-3) 08/03/20 01:15 09/02/20 01:14 08/04/20 18:32 Amiodarone HCl (Cordarone) 200 mg DAILY NG 08/17/20 09:00 11/15/20 08:59 08/23/20 08:19 Carbidopa/Levodopa (Sinemet 25/100) 1 tab THREE TIMES A DAY NG 08/09/20 18:00 09/02/20 08:59 08/23/20 08:20 Heparin Sodium (Porcine) (Heparin 5000 units/ml) 5,000 units EVERY 12 HOURS SUBQ 08/03/20 09:00 09/17/20 08:59 08/23/20 08:19 Hydralazine HCl (Apresoline) 25 mg Q6H PRN NG SBP above 160 08/11/20 22:30 11/05/20 00:29 08/12/20 15:09 Magnesium Hydroxide (Mom) 30 ml DAILYPRN PRN GT Constipation 08/12/20 09:00 09/11/20 08:59 Metoclopramide HCl (Reglan) 5 mg Q8H PRN IVP Nausea & Vomiting 08/15/20 13:00 09/14/20 12:59 Metoprolol Tartrate (Lopressor) 25 mg Q12HR NG 08/13/20 09:00 11/11/20 08:59 08/23/20 08:20 Pantoprazole (Protonix) 40 mg DAILY ORAL 08/23/20 09:00 09/22/20 08:59 08/23/20 09:21 Piperacillin Sod/ Tazobactam Sod 3.375 gm/Sodium Chloride 110 ml @ 27.5 mls/hr EVERY 8 HOURS IVPB 08/21/20 14:00 08/28/20 13:59 08/23/20 06:02 Potassium Chloride (K-Dur) 60 meq ONCE ORAL 08/22/20 12:45 11/20/20 14:00 08/22/20 12:56 Sodium Chloride 1,000 ml @ 50 mls/hr Q20H IV 08/21/20 07:30 09/20/20 07:29 08/23/20 02:00 Assessment/Plan Assessment/Plan ASSESSMENT: chronic encephalopathy, dementia, diffuse infiltrates, elevated BNP hypertension, recurrent falls, and urinary tract infection, hypoxemia, probable aspiration pneumonia. acute respiratory failure hypoxemic PLAN care noted and d/w Dr. Gilmore taper fio2- currently still high respiratory care as is- monitor acid base vent support followup CXR and ABG for change; reviewed suction off load proceed with trach and GT Full code for now per family nutrition DVT prophylaxis skin care position change medications/laboratory data/nursing notes/ICU care reviewed in detail note reviewed and edited care discussed with RN and RT ICU time spent >40 minutes Eriberto Valencia MD Aug 23, 2020 11:59
--- NOTE | 2020-08-23 12:15 | Diagnostic Imaging Report ---
EXAM: XR Chest, 1 View CLINICAL HISTORY: SOB TECHNIQUE: Frontal view of the chest. COMPARISON: 08/20/20. FINDINGS: Redemonstrated endotracheal tube , appropriately positioned, projecting between the clavicular heads. Enteric tube is no longer identified. Extensive bilateral airspace consolidation appears similar to prior exam. No pneumothorax. Mild thoracic dextrocurvature. IMPRESSION: Extensive bilateral airspace consolidation appears similar to prior exam.
--- NOTE | 2020-08-23 12:27 | Infectious Diseases Prog Note ---
Assessment/Plan Assessment/Plan A: 1. Bilateral pneumonia. 2. COVID-19 test is negative. 3. Urinary tract infection. 4. Hypertension. 5. Dementia. 6. Respiratory failure intubated 7. Parkinson's disease PLAN: 1. continue IV Zosyn. 2. Poor prognosis Subjective ROS Limited/Unobtainable: Yes Constitutional: Reports: fever, other - Me=920.6 Allergies: Coded Allergies: No Known Allergies (Unverified , 08/02/20) Objective Last 24 Hour Vital Signs Date Time Temp Pulse Resp B/P (MAP) Pulse Ox O2 Delivery O2 Flow Rate FiO2 08/23/20 12:00 50 08/23/20 12:00 82 28 96/65 (75) 98 08/23/20 12:00 Mechanical Ventilator 08/23/20 11:16 79 32 70 08/23/20 11:00 83 27 117/64 (81) 96 08/23/20 10:00 82 31 110/48 (68) 100 08/23/20 09:00 99.4 86 26 92/41 (58) 100 08/23/20 08:51 99.4 08/23/20 08:20 122 145/99 08/23/20 08:00 50 08/23/20 08:00 Mechanical Ventilator 08/23/20 08:00 100.6 122 33 145/99 (114) 99 08/23/20 07:36 124 34 70 08/23/20 07:31 130 08/23/20 07:00 114 33 172/85 (114) 100 08/23/20 06:00 98.0 117 31 133/70 (91) 100 08/23/20 05:00 90 31 143/69 (93) 98 08/23/20 04:00 75 23 150/65 (93) 100 08/23/20 04:00 Mechanical Ventilator 08/23/20 04:00 73 08/23/20 04:00 50 08/23/20 03:15 86 28 100 08/23/20 03:00 79 25 118/54 (75) 100 08/23/20 02:00 83 24 131/60 (83) 100 08/23/20 01:00 81 28 125/63 (83) 100 08/23/20 00:00 73 08/23/20 00:00 97.9 73 22 104/61 (75) 100 08/23/20 00:00 50 08/23/20 00:00 Mechanical Ventilator 08/22/20 23:00 75 22 119/49 (72) 100 08/22/20 23:00 78 25 100 08/22/20 22:00 62 20 88/39 (55) 100 08/22/20 21:00 98.0 90 29 145/65 (91) 100 08/22/20 20:35 65 87/44 08/22/20 20:00 Mechanical Ventilator 08/22/20 20:00 66 08/22/20 20:00 78 23 117/57 (77) 100 08/22/20 20:00 50 08/22/20 19:43 78 20 100 08/22/20 19:00 65 20 87/44 (58) 100 08/22/20 18:00 71 20 103/55 (71) 100 08/22/20 17:00 98.1 81 23 128/57 (80) 100 08/22/20 16:36 84 23 139/63 (88) 100 08/22/20 16:00 60 08/22/20 16:00 Mechanical Ventilator 08/22/20 15:56 83 08/22/20 15:07 94 25 128/63 (84) 100 08/22/20 14:51 78 25 80 08/22/20 14:00 86 26 115/54 (74) 95 08/22/20 13:00 93 29 152/70 (97) 96 08/22/20 12:38 95 Height (Feet): 5 Height (Inches): 5.00 Weight (Pounds): 99 HEENT: other - orally intubated Respiratory/Chest: other - on ventilator Abdomen: soft, non tender Genitourinary: other - scrotal edema Neurologic/Psychiatric: unresponsiveness Microbiology Date/Time Source Procedure Growth Status 08/21/20 02:45 Nasopharynx Coronavirus COVID-19 PCR ([facility]ULIO) - Final Complete Laboratory Tests Test 08/23/20 05:19 08/23/20 07:34 White Blood Count 15.6 K/UL (4.8-10.8) H Red Blood Count 3.26 M/UL (4.70-6.10) L Hemoglobin 9.9 G/DL (14.2-18.0) L Hematocrit 30.0 % (42.0-52.0) L Mean Corpuscular Volume 92 FL (80-99) Mean Corpuscular Hemoglobin 30.5 PG (27.0-31.0) Mean Corpuscular Hemoglobin Concent 33.1 G/DL (32.0-36.0) Red Cell Distribution Width 13.3 % (11.6-14.8) Platelet Count 219 K/UL (150-450) Mean Platelet Volume 10.0 FL (6.5-10.1) Neutrophils (%) (Auto) % (45.0-75.0) Lymphocytes (%) (Auto) % (20.0-45.0) Monocytes (%) (Auto) % (1.0-10.0) Eosinophils (%) (Auto) % (0.0-3.0) Basophils (%) (Auto) % (0.0-2.0) Differential Total Cells Counted 100 Neutrophils % (Manual) 93 % (45-75) H Lymphocytes % (Manual) 3 % (20-45) L Monocytes % (Manual) 2 % (1-10) Eosinophils % (Manual) 2 % (0-3) Basophils % (Manual) 0 % (0-2) Band Neutrophils 0 % (0-8) Platelet Estimate Adequate Platelet Morphology Normal Hypochromasia 1+ Sodium Level 140 MMOL/L (136-145) Potassium Level 3.7 MMOL/L (3.5-5.1) Chloride Level 105 MMOL/L (98-107) Carbon Dioxide Level 30 MMOL/L (21-32) Anion Gap 5 mmol/L (5-15) Blood Urea Nitrogen 28 mg/dL (7-18) H Creatinine 1.2 MG/DL (0.55-1.30) Estimat Glomerular Filtration Rate 57.1 mL/min (>60) Glucose Level 117 MG/DL (74-106) H Calcium Level 8.2 MG/DL (8.5-10.1) L Magnesium Level 1.8 MG/DL (1.8-2.4) Total Bilirubin 0.4 MG/DL (0.2-1.0) Aspartate Amino Transf (AST/SGOT) 43 U/L (15-37) H Alanine Aminotransferase (ALT/SGPT) 26 U/L (12-78) Alkaline Phosphatase 125 U/L (46-116) H Pro-B-Type Natriuretic Peptide 1953 pg/mL (0-125) H Total Protein 5.3 G/DL (6.4-8.2) L Albumin 0.9 G/DL (3.4-5.0) L Globulin 4.4 g/dL Albumin/Globulin Ratio 0.2 (1.0-2.7) L Arterial Blood pH 7.399 (7.350-7.450) Arterial Blood Partial Pressure CO2 45.4 mmHg (35.0-45.0) H Arterial Blood Partial Pressure O2 71.9 mmHg (75.0-100.0) L Arterial Blood HCO3 27.4 mmol/L (22.0-26.0) H Arterial Blood Oxygen Saturation 93.3 % (95-100) L Arterial Blood Base Excess 2.2 (-2-2) H Emile Test Positive Current Medications Medications (Trade) Dose Ordered Sig/Javon Route PRN Reason Start Time Stop Time Status Last Admin Dose Admin Acetaminophen (Tylenol) 650 mg Q4H PRN ORAL Mild Pain (Pain Scale 1-3) 08/03/20 01:15 09/02/20 01:14 08/23/20 08:21 Acetaminophen (Tylenol) 650 mg Q4H PRN RECTAL Mild Pain (Pain Scale 1-3) 08/03/20 01:15 09/02/20 01:14 08/04/20 18:32 Amiodarone HCl (Cordarone) 200 mg DAILY NG 08/17/20 09:00 11/15/20 08:59 08/23/20 08:19 Carbidopa/Levodopa (Sinemet 25/100) 1 tab THREE TIMES A DAY NG 08/09/20 18:00 09/02/20 08:59 08/23/20 08:20 Heparin Sodium (Porcine) (Heparin 5000 units/ml) 5,000 units EVERY 12 HOURS SUBQ 08/03/20 09:00 09/17/20 08:59 08/23/20 08:19 Hydralazine HCl (Apresoline) 25 mg Q6H PRN NG SBP above 160 08/11/20 22:30 11/05/20 00:29 08/12/20 15:09 Magnesium Hydroxide (Mom) 30 ml DAILYPRN PRN GT Constipation 08/12/20 09:00 09/11/20 08:59 Metoclopramide HCl (Reglan) 5 mg Q8H PRN IVP Nausea & Vomiting 08/15/20 13:00 09/14/20 12:59 Metoprolol Tartrate (Lopressor) 25 mg Q12HR NG 08/13/20 09:00 11/11/20 08:59 08/23/20 08:20 Pantoprazole (Protonix) 40 mg DAILY ORAL 08/23/20 09:00 09/22/20 08:59 08/23/20 09:21 Piperacillin Sod/ Tazobactam Sod 3.375 gm/Sodium Chloride 110 ml @ 27.5 mls/hr EVERY 8 HOURS IVPB 08/21/20 14:00 08/28/20 13:59 08/23/20 06:02 Potassium Chloride (K-Dur) 60 meq ONCE ORAL 08/22/20 12:45 11/20/20 14:00 08/22/20 12:56 Sodium Chloride 1,000 ml @ 50 mls/hr Q20H IV 08/21/20 07:30 09/20/20 07:29 08/23/20 02:00 Baldev Luo MD Aug 23, 2020 12:27
--- NOTE | 2020-08-23 15:00 | NUR ---
NURSE NOTES: Called grand dtr Ruth via Face time. Family appreciated the update.
--- NOTE | 2020-08-23 16:30 | NUR ---
NURSE NOTES: Kept clean and dry. Turned and repositioned. HOB elevated at all times. No s/sx of distress. No grimacing noted.
[2020-08-23] MEDS ORDERED: NS 275ml ONE (18:02)
--- NOTE | 2020-08-23 19:22 | NUR ---
NURSE HAND-OFF REPORT: Latest Vital Signs: Temperature 99.4 , Pulse 89 , B/P 148 /55 , Respiratory Rate 30 , O2 SAT 99 , Mechanical Ventilator, O2 Flow Rate 15.0 . Vital Sign Comment: stable EKG Rhythm: Sinus Rhythm Rhythm change?: William KURTZ Notified?: William Montoya MD Response: Message left await call Latest José Fall Score: 75 Fall Risk: High Risk Safety Measures: Call light Within Reach, Bed Alarm Zone 1, Side Rails Side Rails x3, Bed position Low and Locked. Fall Precautions: Yellow Socks Yellow Gown Door Sign Patient Fall Education Report given to Jodie ARGUELLES.
--- NOTE | 2020-08-23 20:00 | NUR ---
NURSE NOTES: received in no acute distress, lunchroom monitor shows nsr, bp 152/59, remainr on the vent with ac 2o tv 500 fio2 60% with peep 5, maintaining o2 sat 99-100%, suctioned via ett with thick fuentes colored secretion, ngt intact and patent with tube feeding osmolite at 10ml/hr, no residual, soft restraints on to both wrists, with good pulses to right and left radial, both arms swollen not related to soft restraints, attempted to reached for ett when restraints released for turning, springer cath intact and patent with scanty urine output
--- NOTE | 2020-08-23 22:00 | NUR ---
NURSE NOTES: repositioned, oral care done, o2 sat remains on 100%
--- NOTE | 2020-08-23 23:00 | NUR ---
HAND-OFF: Report given to hannah durbin rn.
--- NOTE | 2020-08-23 23:01 | NUR ---
NURSE NOTES: received pt from Rolanda ARGUELLES., pt is awake and AOx 1 at this time. pt has ET tube, size 7.6 lip 25cm, AC 20 TV 500 Fio2 60% p5. O2sat is at 100% no SOB noted at this time. general edema noted. skin alternation noted as well. dressing sites are intact, clean, and patent. left and right FA 20G 0.9 NS is running at 50ml/hr. no active bleeding noted. NGT right nares, Osmolite 1.5 is running 10cc/hr. no residual noted from NGT. ABD round and soft. call light within reach. bed at the lowest position, alarmed, and locked. will continue to monitor pt with plan of care.
[2020-08-24] VITALS (24 sets, daily range): BP systolic 93–159; BP diastolic 40–80
--- NOTE | 2020-08-24 01:00 | NUR ---
NURSE NOTES: cleaned pt. provided new gown, new blankets. changed the bed. large BM noted, no bleeding noted. no respiratory distress noted at this time. call light within reach. will continue to monitor pt.
--- NOTE | 2020-08-24 01:50 | Cardiology Progress Note ---
Subjective DATE OF SERVICE: Aug 22, 2020 Remains orally intubated with mechanical ventilation. BP readings less tenuous. Monitor: sinus rhythm with occ atrial ectopy No change in care plan noted from family - they now reaffirm FULL code status I spoke to gr dtr 08/21; she states that family want to honor his wishes, which were to live as long as possible. I explained to her that if no evidence of successful wean off vent over next few days. At that point we would consider a trach. Objective Afebrile 110/47 71 reg 22-27 on vent ROS: unchanged from my evaluation of 08/02/20 HEENT: Orally intubated, Mechanically Ventilated, Thick Secretions ET Tube RHYTHM: NSR, PACs LUNGS: bilateral rhonchi CARDIAC: normal S1 and S2, irregularly irregular, systolic murmur - 1/6 systolic murmurat apex, rapid rate ABDOMEN: normal bowel sounds, non tender, soft, no organomegaly, other - NGTube EXTREMITIES: normal range of motion, trace edema Laboratory Tests reviewed Microbiology Date/Time Source Procedure Growth Status 08/21/20 02:45 Nasopharynx Coronavirus COVID-19 PCR ([facility]) - Final Complete EKG INTERPRETATION: reviewed CHEST XRAY: reviewed Assessment/Plan Assessment/Plan Paroxysmal atrial fibrillation with RVR, now controlled on amiodarone Acute myocardial ischemia with elevated troponin Aspiration risk Sepsis Healthcare acquired PNA Complicated UTI with indwelling catheter Hyponatremia Severe protein calorie malnutrition Acute myocardial ischemia Respiratory failure with hypoxia and hypercarbia - now on mech ventilation Hypokalemia Leukocytosis improving Ac/chronic diastolic CHF Dehydration/hypernatremia corrected CRITICAL & GUARDED Empiric antibiotics Vent support NGTube feedings DVT prophylaxis Maint IVF as needed Potassium replacement as needed. Continue amiodarone - dose adjustments prn Titrate anti-HTN regimen as needed. Sarkis Herman MD Aug 24, 2020 01:50
--- NOTE | 2020-08-24 01:51 | Cardiology Progress Note ---
Subjective DATE OF SERVICE: Aug 23, 2020 Remains orally intubated with mechanical ventilation. O2 requirements have decreased slightly. BP readings improved Monitor: sinus rhythm with occ atrial ectopy No change in care plan noted from family - they now reaffirm FULL code status I spoke to gr dtr 08/21; she states that family want to honor his wishes, which were to live as long as possible. I explained to her that if no evidence of successful wean off vent over next few days. At that point we would consider a trach. Objective Last 24 Hour Vital Signs Date Time Temp Pulse Resp B/P (MAP) Pulse Ox O2 Delivery O2 Flow Rate FiO2 08/24/20 00:15 86 33 98 08/24/20 00:00 Mechanical Ventilator 60.0 08/24/20 00:00 60 08/24/20 00:00 98.2 82 29 134/57 (82) 99 08/23/20 23:51 66 08/23/20 23:15 71 26 60 08/23/20 23:00 73 25 139/54 (82) 100 08/23/20 22:00 76 28 139/54 (82) 99 08/23/20 21:08 87 152/59 08/23/20 21:00 80 30 118/47 (70) 99 08/23/20 20:00 Mechanical Ventilator 60.0 08/23/20 20:00 60 08/23/20 20:00 85 08/23/20 20:00 98.1 85 25 152/59 (90) 99 08/23/20 19:00 89 30 148/55 (86) 99 08/23/20 19:00 90 30 60 08/23/20 18:15 91 98 08/23/20 18:00 83 30 141/60 (87) 98 08/23/20 17:00 88 33 137/100 (112) 99 08/23/20 16:00 88 30 131/53 (79) 98 08/23/20 16:00 Mechanical Ventilator 08/23/20 16:00 60 08/23/20 15:20 78 08/23/20 15:14 83 27 60 08/23/20 15:00 93 32 125/65 (85) 97 08/23/20 14:00 96 32 147/56 (86) 96 08/23/20 13:00 84 28 113/50 (71) 97 08/23/20 12:00 50 08/23/20 12:00 82 28 96/65 (75) 98 08/23/20 12:00 Mechanical Ventilator 08/23/20 11:18 90 08/23/20 11:16 79 32 60 08/23/20 11:00 83 27 117/64 (81) 96 08/23/20 10:35 60 08/23/20 10:00 82 31 110/48 (68) 100 08/23/20 09:00 99.4 86 26 92/41 (58) 100 08/23/20 08:51 99.4 08/23/20 08:20 122 145/99 08/23/20 08:00 50 08/23/20 08:00 Mechanical Ventilator 08/23/20 08:00 100.6 122 33 145/99 (114) 99 08/23/20 07:36 124 34 70 08/23/20 07:31 130 08/23/20 07:00 114 33 172/85 (114) 100 08/23/20 06:00 98.0 117 31 133/70 (91) 100 08/23/20 05:00 90 31 143/69 (93) 98 08/23/20 04:00 75 23 150/65 (93) 100 08/23/20 04:00 Mechanical Ventilator 08/23/20 04:00 73 08/23/20 04:00 50 08/23/20 03:15 86 28 100 08/23/20 03:00 79 25 118/54 (75) 100 08/23/20 02:00 83 24 131/60 (83) 100 ROS: unchanged from my evaluation of 08/02/20 HEENT: Orally intubated, Mechanically Ventilated, Thick Secretions ET Tube RHYTHM: NSR, PACs LUNGS: bilateral rhonchi CARDIAC: normal S1 and S2, irregularly irregular, systolic murmur - 1/6 systolic murmurat apex, rapid rate ABDOMEN: normal bowel sounds, non tender, soft, no organomegaly, other - NGTube EXTREMITIES: normal range of motion, trace edema Laboratory Tests Test 08/23/20 05:19 08/23/20 07:34 White Blood Count 15.6 K/UL (4.8-10.8) H Red Blood Count 3.26 M/UL (4.70-6.10) L Hemoglobin 9.9 G/DL (14.2-18.0) L Hematocrit 30.0 % (42.0-52.0) L Mean Corpuscular Volume 92 FL (80-99) Mean Corpuscular Hemoglobin 30.5 PG (27.0-31.0) Mean Corpuscular Hemoglobin Concent 33.1 G/DL (32.0-36.0) Red Cell Distribution Width 13.3 % (11.6-14.8) Platelet Count 219 K/UL (150-450) Mean Platelet Volume 10.0 FL (6.5-10.1) Neutrophils (%) (Auto) % (45.0-75.0) Lymphocytes (%) (Auto) % (20.0-45.0) Monocytes (%) (Auto) % (1.0-10.0) Eosinophils (%) (Auto) % (0.0-3.0) Basophils (%) (Auto) % (0.0-2.0) Differential Total Cells Counted 100 Neutrophils % (Manual) 93 % (45-75) H Lymphocytes % (Manual) 3 % (20-45) L Monocytes % (Manual) 2 % (1-10) Eosinophils % (Manual) 2 % (0-3) Basophils % (Manual) 0 % (0-2) Band Neutrophils 0 % (0-8) Platelet Estimate Adequate Platelet Morphology Normal Hypochromasia 1+ Sodium Level 140 MMOL/L (136-145) Potassium Level 3.7 MMOL/L (3.5-5.1) Chloride Level 105 MMOL/L (98-107) Carbon Dioxide Level 30 MMOL/L (21-32) Anion Gap 5 mmol/L (5-15) Blood Urea Nitrogen 28 mg/dL (7-18) H Creatinine 1.2 MG/DL (0.55-1.30) Estimat Glomerular Filtration Rate 57.1 mL/min (>60) Glucose Level 117 MG/DL (74-106) H Calcium Level 8.2 MG/DL (8.5-10.1) L Magnesium Level 1.8 MG/DL (1.8-2.4) Total Bilirubin 0.4 MG/DL (0.2-1.0) Aspartate Amino Transf (AST/SGOT) 43 U/L (15-37) H Alanine Aminotransferase (ALT/SGPT) 26 U/L (12-78) Alkaline Phosphatase 125 U/L (46-116) H Pro-B-Type Natriuretic Peptide 1954 pg/mL (0-125) H Total Protein 5.3 G/DL (6.4-8.2) L Albumin 0.9 G/DL (3.4-5.0) L Globulin 4.4 g/dL Albumin/Globulin Ratio 0.2 (1.0-2.7) L Arterial Blood pH 7.399 (7.350-7.450) Arterial Blood Partial Pressure CO2 45.4 mmHg (35.0-45.0) H Arterial Blood Partial Pressure O2 71.9 mmHg (75.0-100.0) L Arterial Blood HCO3 27.4 mmol/L (22.0-26.0) H Arterial Blood Oxygen Saturation 93.3 % (95-100) L Arterial Blood Base Excess 2.2 (-2-2) H Emile Test Positive Microbiology Date/Time Source Procedure Growth Status 08/21/20 02:45 Nasopharynx Coronavirus COVID-19 PCR ([facility]) - Final Complete CHEST XRAY: reviewed Assessment/Plan Assessment/Plan Paroxysmal atrial fibrillation with RVR, now controlled on amiodarone Acute myocardial ischemia with elevated troponin Aspiration risk Sepsis Healthcare acquired PNA Complicated UTI with indwelling catheter Hyponatremia Severe protein calorie malnutrition Acute myocardial ischemia Respiratory failure with hypoxia and hypercarbia - now on mech ventilation Hypokalemia Leukocytosis improving Ac/chronic diastolic CHF Dehydration/hypernatremia corrected CRITICAL & GUARDED Empiric antibiotics Vent support with wean as able NGTube feedings DVT prophylaxis Maint IVF as needed Potassium replacement as needed. Continue amiodarone - dose adjustments prn Titrate anti-HTN regimen as needed. Sarkis Herman MD Aug 24, 2020 01:51
--- NOTE | 2020-08-24 02:22 | NUR ---
NURSE NOTES: repositioned pt Q 2hrs. pt is resting comfortably at this time. call light within reach.
--- NOTE | 2020-08-24 04:00 | NUR ---
NURSE NOTES: oral suctioned, RT at the bedside. O2sat 100%. call light within reach. will continue to monitor pt.
[2020-08-24] MEDS: Piperacillin/Tazobactam 3.375 GM in NS 110 ML IVPB SCH ×3 (05:44→22:16)
--- NOTE | 2020-08-24 06:00 | NUR ---
NURSE NOTES: repositioned pt Q 2hrs. bilateral soft wrist restrain adjusted. springer draining well. will continue to monitor
--- NOTE | 2020-08-24 06:47 | NUR ---
NURSE NOTES: Dr. Gilmore is at the bedside.
--- NOTE | 2020-08-24 07:07 | General Progress Note ---
Subjective ROS Limited/Unobtainable: Yes Constitutional: Reports: malaise, weakness HEENT: Reports: no symptoms Cardiovascular: Reports: no symptoms Respiratory: Reports: shortness of breath, sputum Gastrointestinal/Abdominal: Reports: difficulty swallowing Genitourinary: Reports: no symptoms Neurologic/Psychiatric: Reports: pre-existing deficit Endocrine: Reports: no symptoms Hematologic/Lymphatic: Reports: no symptoms Allergies: Coded Allergies: No Known Allergies (Unverified , 08/02/20) All Systems: reviewed and negative except above Subjective no change. slightly better o2 satrs. now on 60%. no fevers. tolerating ngt feeds. cxr without improvement. AM labs still pending. on iv abx. Objective Last 24 Hour Vital Signs Date Time Temp Pulse Resp B/P (MAP) Pulse Ox O2 Delivery O2 Flow Rate FiO2 08/24/20 06:00 143/52 (82) 08/24/20 05:00 93 33 159/53 (88) 99 08/24/20 04:00 60 08/24/20 04:00 Mechanical Ventilator 60.0 08/24/20 04:00 98.6 78 25 93/69 (77) 100 08/24/20 03:30 87 25 60 08/24/20 03:16 90 08/24/20 03:00 88 29 129/63 (85) 98 08/24/20 02:00 70 25 118/56 (76) 100 08/24/20 01:00 84 29 139/46 (77) 98 08/24/20 00:15 86 33 98 08/24/20 00:00 Mechanical Ventilator 60.0 08/24/20 00:00 60 08/24/20 00:00 98.2 82 29 134/57 (82) 99 08/23/20 23:51 66 08/23/20 23:15 71 26 60 08/23/20 23:00 73 25 139/54 (82) 100 08/23/20 22:00 76 28 139/54 (82) 99 08/23/20 21:08 87 152/59 08/23/20 21:00 80 30 118/47 (70) 99 08/23/20 20:00 Mechanical Ventilator 60.0 08/23/20 20:00 60 08/23/20 20:00 85 08/23/20 20:00 98.1 85 25 152/59 (90) 99 08/23/20 19:00 89 30 148/55 (86) 99 08/23/20 19:00 90 30 60 08/23/20 18:15 91 98 08/23/20 18:00 83 30 141/60 (87) 98 08/23/20 17:00 88 33 137/100 (112) 99 08/23/20 16:00 88 30 131/53 (79) 98 08/23/20 16:00 Mechanical Ventilator 08/23/20 16:00 60 08/23/20 15:20 78 08/23/20 15:14 83 27 60 08/23/20 15:00 93 32 125/65 (85) 97 08/23/20 14:00 96 32 147/56 (86) 96 08/23/20 13:00 84 28 113/50 (71) 97 08/23/20 12:00 50 08/23/20 12:00 82 28 96/65 (75) 98 08/23/20 12:00 Mechanical Ventilator 08/23/20 11:18 90 08/23/20 11:16 79 32 60 08/23/20 11:00 83 27 117/64 (81) 96 08/23/20 10:35 60 08/23/20 10:00 82 31 110/48 (68) 100 08/23/20 09:00 99.4 86 26 92/41 (58) 100 08/23/20 08:51 99.4 08/23/20 08:20 122 145/99 08/23/20 08:00 50 08/23/20 08:00 Mechanical Ventilator 08/23/20 08:00 100.6 122 33 145/99 (114) 99 08/23/20 07:36 124 34 70 08/23/20 07:31 130 Intake and Output 08/23/20 08/24/20 19:00 07:00 Intake Total 370 ml 866.77543 ml Output Total 220 ml 107 ml Balance 150 ml 759.29371 ml Free Water 200 ml 90 ml IV Total 50 ml 666.01261 ml Tube Feeding 120 ml 110 ml Output Urine Total 220 ml 107 ml # Bowel Movements 2 Laboratory Tests 08/23/20 07:34: Arterial Blood pH 7.399, Arterial Blood Partial Pressure CO2 45.4H, Arterial Blood Partial Pressure O2 71.9L, Arterial Blood HCO3 27.4H, Arterial Blood Oxygen Saturation 93.3L, Arterial Blood Base Excess 2.2H, Emile Test Positive 08/24/20 05:29: Sodium Level [Pending], Potassium Level [Pending], Chloride Level [Pending], Carbon Dioxide Level [Pending], Blood Urea Nitrogen [Pending], Creatinine [Pending], Estimat Glomerular Filtration Rate [Pending], Glucose Level [Pending], Calcium Level [Pending], Total Bilirubin [Pending], Aspartate Amino Transf (AST/SGOT) [Pending], Alanine Aminotransferase (ALT/SGPT) [Pending], Alkaline Phosphatase [Pending], Total Protein [Pending], Albumin [Pending], Globulin [Pending] Height (Feet): 5 Height (Inches): 5.00 Weight (Pounds): 99 Objective General Appearance: WD/WN, confused, thin. orally intubated EENT: normal ENT inspection Neck: non-tender, normal alignment, supple Cardiovascular: normal rate, regular rhythm Respiratory/Chest: chest wall non-tender, lungs clear, normal breath sounds, no respiratory distress, no accessory muscle use Abdomen: normal bowel sounds, non tender, soft, no organomegaly Edema: no edema noted Arm (L), no edema noted Arm (R) Assessment/Plan Problem List: (1) Pneumonia ICD Codes: J18.9 - Pneumonia, unspecified organism SNOMED: 591069323 (2) Hypoxia ICD Codes: R09.02 - Hypoxemia SNOMED: 970870649 (3) AMS (altered mental status) ICD Codes: R41.82 - Altered mental status, unspecified SNOMED: 600409255 (4) UTI (urinary tract infection) ICD Codes: N39.0 - Urinary tract infection, site not specified SNOMED: 18555192 (5) Sepsis ICD Codes: A41.9 - Sepsis, unspecified organism SNOMED: 22531913 Status: stable, not improved Assessment/Plan: vent support wean as able repeat covid negative ngt feeds suctioning monitor labs/lytes replace as needed tele dvt/stress ulcer prophylaxis very poor prognosis family updated. try to wean will call surgery in anticipation of trach Chavez Gilmore MD Aug 24, 2020 07:07
--- NOTE | 2020-08-24 07:08 | NUR ---
NURSE NOTES: made Dr. Gilmore aware regarding low urine output (10cc/hr) and whipping on left upper body. new order received. will continue to monitor pt.
--- NOTE | 2020-08-24 07:17 | NUR ---
NURSE HAND-OFF REPORT: Need to follow up:today's AM lab Latest Vital Signs: Temperature 98.2 , Pulse 74 , B/P 116 /42 , Respiratory Rate 15 , O2 SAT 96 , Mechanical Ventilator, O2 Flow Rate . Vital Sign Comment: [stable] EKG Rhythm: Sinus Rhythm Rhythm change?: N MD Notified?: - MD Response: Latest José Fall Score: 50 Fall Risk: High Risk Safety Measures: Call light Within Reach, Bed Alarm Zone 2, Side Rails Side Rails x3, Bed position Low and Locked. Fall Precautions: Door Sign Report given to [Ines ARGUELLES].
[2020-08-24 07:31] LABS: ALBUMIN 0.9 G/DL (3.4-5.0); ALBUMIN/GLOBULIN RATIO 0.2 (1.0-2.7); BILIRUBIN,TOTAL 0.4 MG/DL (0.2-1.0); CALCIUM 8.1 MG/DL (8.5-10.1); CREATININE 1.2 MG/DL (0.55-1.30); POTASSIUM 3.2 MMOL/L (3.5-5.1)
--- NOTE | 2020-08-24 08:00 | NUR ---
NURSE NOTES: Pt was assessed after receiving change of shift report from So Ri RN. Opens eyes to voice/touch, however does not follow commands. Orally intubated, ETT 7.5 at 25cm/lipline with vent settings AC20, VT500, Peep 5, FIO2 60% with O2Sat at 98%. Bilateral rhonchi with diminished lung sounds on auscultation. Temp 98.2F axillary. NSR on vehicle monitor technician. HR70. Right nare NGT with Osmolyte 1.5 infusing at 10ml/hour, with zero residual. Overton catheter present, pt is olyguric, draining small amount of dark yellow/mildly cloudy urine. Bilateral upper extremity edema noted, with left upper extremity weeping. Skin alteration noted on nasal bridge. Peripheral IV access present on bilateral FA, both #20G. NS is infusing at 50ml/hour. Bilateral soft wrist restraints are present, to prevent self-extubation, since pt is impulsive and noted to reach for ET tube. Skin and vascular integrity at restraint site remains within normal limits. HOB at 30degrees, bed locked, three side rails up. Will continue with plan of care.
--- NOTE | 2020-08-24 08:13 | Pulmonology Progress Note ---
Subjective ROS Limited/Unobtainable: Yes Constitutional: Reports: fever, other - Bc=118.6 Allergies: Coded Allergies: No Known Allergies (Unverified , 08/02/20) All Systems: reviewed and negative except above Subjective care noted remains intubated diffuse infiltrates on CXR/ oxygenation better poor LOC sedated Objective Last 24 Hour Vital Signs Date Time Temp Pulse Resp B/P (MAP) Pulse Ox O2 Delivery O2 Flow Rate FiO2 08/24/20 07:00 95 31 153/40 (77) 95 08/24/20 06:00 143/52 (82) 08/24/20 05:00 93 33 159/53 (88) 99 08/24/20 04:00 60 08/24/20 04:00 Mechanical Ventilator 60.0 08/24/20 04:00 98.6 78 25 93/69 (77) 100 08/24/20 03:30 87 25 60 08/24/20 03:16 90 08/24/20 03:00 88 29 129/63 (85) 98 08/24/20 02:00 70 25 118/56 (76) 100 08/24/20 01:00 84 29 139/46 (77) 98 08/24/20 00:15 86 33 98 08/24/20 00:00 Mechanical Ventilator 60.0 08/24/20 00:00 60 08/24/20 00:00 98.2 82 29 134/57 (82) 99 08/23/20 23:51 66 08/23/20 23:15 71 26 60 08/23/20 23:00 73 25 139/54 (82) 100 08/23/20 22:00 76 28 139/54 (82) 99 08/23/20 21:08 87 152/59 08/23/20 21:00 80 30 118/47 (70) 99 08/23/20 20:00 Mechanical Ventilator 60.0 08/23/20 20:00 60 08/23/20 20:00 85 08/23/20 20:00 98.1 85 25 152/59 (90) 99 08/23/20 19:00 89 30 148/55 (86) 99 08/23/20 19:00 90 30 60 08/23/20 18:15 91 98 08/23/20 18:00 83 30 141/60 (87) 98 08/23/20 17:00 88 33 137/100 (112) 99 08/23/20 16:00 88 30 131/53 (79) 98 08/23/20 16:00 Mechanical Ventilator 08/23/20 16:00 60 08/23/20 15:20 78 08/23/20 15:14 83 27 60 08/23/20 15:00 93 32 125/65 (85) 97 08/23/20 14:00 96 32 147/56 (86) 96 08/23/20 13:00 84 28 113/50 (71) 97 08/23/20 12:00 50 08/23/20 12:00 82 28 96/65 (75) 98 08/23/20 12:00 Mechanical Ventilator 08/23/20 11:18 90 08/23/20 11:16 79 32 60 08/23/20 11:00 83 27 117/64 (81) 96 08/23/20 10:35 60 08/23/20 10:00 82 31 110/48 (68) 100 08/23/20 09:00 99.4 86 26 92/41 (58) 100 08/23/20 08:51 99.4 08/23/20 08:20 122 145/99 Intake and Output 08/23/20 08/24/20 18:59 06:59 Intake Total 370 ml 926.63939 ml Output Total 220 ml 117 ml Balance 150 ml 809.23849 ml Free Water 200 ml 90 ml IV Total 50 ml 716.38859 ml Tube Feeding 120 ml 120 ml Output Urine Total 220 ml 117 ml # Bowel Movements 2 Objective WDWN NAD reduced breath sounds bilaterally with scattered rhonchi (not improved) [id number] NABS nontender no CCE nonfocal on BIPAP poorly responsive Laboratory Tests 08/24/20 05:29: Sodium Level 141, Potassium Level 3.2L, Chloride Level 106, Carbon Dioxide Level 28, Anion Gap 7, Blood Urea Nitrogen 32H, Creatinine 1.2, Estimat Glomerular Filtration Rate 57.1, Glucose Level 102, Calcium Level 8.1L, Total Bilirubin 0.4, Aspartate Amino Transf (AST/SGOT) 35, Alanine Aminotransferase (ALT/SGPT) 27, Alkaline Phosphatase 117H, Total Protein 5.0L, Albumin 0.9L, Globulin 4.1, Albumin/Globulin Ratio 0.2L Current Medications Medications (Trade) Dose Ordered Sig/Javon Route PRN Reason Start Time Stop Time Status Last Admin Dose Admin Acetaminophen (Tylenol) 650 mg Q4H PRN ORAL Mild Pain (Pain Scale 1-3) 08/03/20 01:15 09/02/20 01:14 08/23/20 08:21 Acetaminophen (Tylenol) 650 mg Q4H PRN RECTAL Mild Pain (Pain Scale 1-3) 08/03/20 01:15 09/02/20 01:14 08/04/20 18:32 Amiodarone HCl (Cordarone) 200 mg DAILY NG 08/17/20 09:00 11/15/20 08:59 08/23/20 08:19 Carbidopa/Levodopa (Sinemet 25/100) 1 tab THREE TIMES A DAY NG 08/09/20 18:00 09/02/20 08:59 08/23/20 18:11 Heparin Sodium (Porcine) (Heparin 5000 units/ml) 5,000 units EVERY 12 HOURS SUBQ 08/03/20 09:00 09/17/20 08:59 08/23/20 21:11 Hydralazine HCl (Apresoline) 25 mg Q6H PRN NG SBP above 160 08/11/20 22:30 11/05/20 00:29 08/12/20 15:09 Magnesium Hydroxide (Mom) 30 ml DAILYPRN PRN GT Constipation 08/12/20 09:00 09/11/20 08:59 Metoclopramide HCl (Reglan) 5 mg Q8H PRN IVP Nausea & Vomiting 08/15/20 13:00 09/14/20 12:59 Metoprolol Tartrate (Lopressor) 25 mg Q12HR NG 08/13/20 09:00 11/11/20 08:59 08/23/20 21:08 Pantoprazole (Protonix) 40 mg DAILY ORAL 08/23/20 09:00 09/22/20 08:59 08/23/20 09:21 Piperacillin Sod/ Tazobactam Sod 3.375 gm/Sodium Chloride 110 ml @ 27.5 mls/hr EVERY 8 HOURS IVPB 08/21/20 14:00 08/28/20 13:59 08/24/20 05:44 Sodium Chloride 1,000 ml @ 50 mls/hr Q20H IV 08/21/20 07:30 09/20/20 07:29 08/23/20 02:00 Assessment/Plan Assessment/Plan ASSESSMENT: chronic encephalopathy, dementia, diffuse infiltrates, elevated BNP hypertension, recurrent falls, and urinary tract infection, hypoxemia, probable aspiration pneumonia. acute respiratory failure hypoxemic PLAN care noted taper fio2- as able respiratory care as is- monitor acid base vent support as is full for now monitor imaging suction off load proceed with trach and GT- too ill to wean at present Full code for now per family nutrition DVT prophylaxis skin care position change remains critical with poor prognosis medications/laboratory data/nursing notes/ICU care reviewed in detail note reviewed and edited care discussed with RN and RT ICU time spent >40 minutes Eriberto Valencia MD Aug 24, 2020 08:13
[2020-08-24] MEDS: Amiodarone 200mg tab NG SCH (08:49)
[2020-08-24] MEDS: Levodopa/Carbidopa 25/100 tab NG SCH ×3 (08:49→17:17)
[2020-08-24] MEDS: Heparin 5000 units/ml inj SUBQ SCH ×2 (08:52→21:10)
[2020-08-24] MEDS ORDERED: Rocuronium Bromide 50mg/5ml Inj IV ONE (09:14)
[2020-08-24] MEDS ORDERED: Etomidate 40mg/20ml Inj IV ONE (09:14)
--- NOTE | 2020-08-24 10:00 | NUR ---
NURSE NOTES: AM meds were administered. VS remain stable. Oral care was done. Pt was repositioned for comfort. No signs/symptoms of distress noted at this time.
--- NOTE | 2020-08-24 10:15 | NUR ---
RD ASSESSMENT & RECOMMENDATIONS SEE CARE ACTIVITY FOR COMPLETE ASSESSMENT DAILY ESTIMATED NEEDS: Needs based on Underweight, crirtical care/ 45kg 30-35 kcals/kg 6842-2279 total kcals 1.2-2 g protein/kg 54-90 g total protein 25-30 mL/kg 5462-0620 total fluid mLs NUTRITION DIAGNOSIS: * Increased kcal/prot needs R/T underweight status, pulmonary status as evidenced by pt @ 73% IBW, w/ BMI of 16.5, low BMI per guidelines, h/o COPD. * Swallowing difficulty R/T dysphagia, respiratory status as evidenced by s/p failed video swallow study, w/ rec for NPO, s/p NGT insertion for NGT feeds, now s/p oral intubation (08/19), remains on NGT feeds. CURRENT TF: Osmolite 1.5 @10ml/hr x 24 hrs -> INADEQUATE ENTERAL NUTRITION RECOMMENDATIONS: Osmolite 1.5 @ 40ml/hr x 24 hrs to provide 960ml, 1440kcal, 60g prot, 732ml free water * Increase goal rate to 40ml/hr x 24 hrs- meets 100% est kcal/prot needs * HOB over 30 degrees/ water flush per MD ------ W/ consistently elev BGs, rec carb controlled TF of Glucerna 1.5 @ 40ml/hr x 24 hrs -> 960ml, 1440kcal, 79g prot, 728ml free water ADDITIONAL RECOMMENDATIONS: * Wt@ SNF on 07/2932=834ybi fluctuating daily wts, rec recalibrated bedscale wt (wts now 59kg) * Monitor lytes daily, replete as needed * PT ON BIPAP, TF AT LOW RATE-> Now intubated -> increase TF goal rate as above * Monitor BGs, need for NISS and carb controlled TF
--- NOTE | 2020-08-24 10:54 | NUR ---
CASE MANAGEMENT:REVIEW 08/24/20 SI: ACUTE RESPIRATORY FAILURE INTUBATED ON VENT SUPPORT 98.6 78 25 93/69 100% on vent support WBC+15.6 H/H-8.7/25.5 VENT: FIO2 60% AC 20 TV 500 PEEP 5.0 IS: IV ZOSYN Q8HRS IVF@50/HR AMIODARONE NG QD LOPRESSOR NG Q12 HEPARIN SQ Q12 : ICU STATUS
--- NOTE | 2020-08-24 11:22 | Infectious Diseases Prog Note ---
Assessment/Plan Assessment/Plan antibiotics : zosyn A 1. Right-sided pneumonia. 2. COVID-19 test is negative. 3. Urinary tract infection. 4. Hypertension. 5. Dementia. 6. Respiratory failure. 7. leucocytosis P 1. continue iv zosyn 2. will follow up cultures 3. poor prognosis Subjective ROS Limited/Unobtainable: Yes Allergies: Coded Allergies: No Known Allergies (Unverified , 08/02/20) Objective Last 24 Hour Vital Signs Date Time Temp Pulse Resp B/P (MAP) Pulse Ox O2 Delivery O2 Flow Rate FiO2 08/24/20 09:00 67 98/70 08/24/20 07:25 91 32 60 08/24/20 07:00 95 31 153/40 (77) 95 08/24/20 06:00 143/52 (82) 08/24/20 05:00 93 33 159/53 (88) 99 08/24/20 04:00 60 08/24/20 04:00 Mechanical Ventilator 60.0 08/24/20 04:00 98.6 78 25 93/69 (77) 100 08/24/20 03:30 87 25 60 08/24/20 03:16 90 08/24/20 03:00 88 29 129/63 (85) 98 08/24/20 02:00 70 25 118/56 (76) 100 08/24/20 01:00 84 29 139/46 (77) 98 08/24/20 00:15 86 33 98 08/24/20 00:00 Mechanical Ventilator 60.0 08/24/20 00:00 60 08/24/20 00:00 98.2 82 29 134/57 (82) 99 08/23/20 23:51 66 08/23/20 23:15 71 26 60 08/23/20 23:00 73 25 139/54 (82) 100 08/23/20 22:00 76 28 139/54 (82) 99 08/23/20 21:08 87 152/59 08/23/20 21:00 80 30 118/47 (70) 99 08/23/20 20:00 Mechanical Ventilator 60.0 08/23/20 20:00 60 08/23/20 20:00 85 08/23/20 20:00 98.1 85 25 152/59 (90) 99 12/6/20 19:00 89 30 148/55 (86) 99 08/23/20 19:00 90 30 60 08/23/20 18:15 91 98 08/23/20 18:00 83 30 141/60 (87) 98 08/23/20 17:00 88 33 137/100 (112) 99 08/23/20 16:00 88 30 131/53 (79) 98 08/23/20 16:00 Mechanical Ventilator 08/23/20 16:00 60 08/23/20 15:20 78 08/23/20 15:14 83 27 60 08/23/20 15:00 93 32 125/65 (85) 97 08/23/20 14:00 96 32 147/56 (86) 96 08/23/20 13:00 84 28 113/50 (71) 97 08/23/20 12:00 50 08/23/20 12:00 82 28 96/65 (75) 98 08/23/20 12:00 Mechanical Ventilator Height (Feet): 5 Height (Inches): 5.00 Weight (Pounds): 99 HEENT: other - intubated Respiratory/Chest: lungs clear Cardiovascular: normal rate, regular rhythm, no gallop/murmur Abdomen: soft, non tender Extremities: other - + edema Laboratory Tests Test 08/24/20 05:29 Sodium Level 141 MMOL/L (136-145) Potassium Level 3.2 MMOL/L (3.5-5.1) L Chloride Level 106 MMOL/L (98-107) Carbon Dioxide Level 28 MMOL/L (21-32) Anion Gap 7 mmol/L (5-15) Blood Urea Nitrogen 32 mg/dL (7-18) H Creatinine 1.2 MG/DL (0.55-1.30) Estimat Glomerular Filtration Rate 57.1 mL/min (>60) Glucose Level 102 MG/DL (74-106) Calcium Level 8.1 MG/DL (8.5-10.1) L Total Bilirubin 0.4 MG/DL (0.2-1.0) Aspartate Amino Transf (AST/SGOT) 35 U/L (15-37) Alanine Aminotransferase (ALT/SGPT) 27 U/L (12-78) Alkaline Phosphatase 117 U/L (46-116) H Total Protein 5.0 G/DL (6.4-8.2) L Albumin 0.9 G/DL (3.4-5.0) L Globulin 4.1 g/dL Albumin/Globulin Ratio 0.2 (1.0-2.7) L Current Medications Medications (Trade) Dose Ordered Sig/Javon Route PRN Reason Start Time Stop Time Status Last Admin Dose Admin Acetaminophen (Tylenol) 650 mg Q4H PRN ORAL Mild Pain (Pain Scale 1-3) 08/03/20 01:15 09/02/20 01:14 08/23/20 08:21 Acetaminophen (Tylenol) 650 mg Q4H PRN RECTAL Mild Pain (Pain Scale 1-3) 08/03/20 01:15 09/02/20 01:14 08/04/20 18:32 Amiodarone HCl (Cordarone) 200 mg DAILY NG 08/17/20 09:00 11/15/20 08:59 08/24/20 08:49 Carbidopa/Levodopa (Sinemet 25/100) 1 tab THREE TIMES A DAY NG 08/09/20 18:00 09/02/20 08:59 08/24/20 08:49 Heparin Sodium (Porcine) (Heparin 5000 units/ml) 5,000 units EVERY 12 HOURS SUBQ 08/03/20 09:00 09/17/20 08:59 08/24/20 08:52 Hydralazine HCl (Apresoline) 25 mg Q6H PRN NG SBP above 160 08/11/20 22:30 11/05/20 00:29 08/12/20 15:09 Magnesium Hydroxide (Mom) 30 ml DAILYPRN PRN GT Constipation 08/12/20 09:00 09/11/20 08:59 Metoclopramide HCl (Reglan) 5 mg Q8H PRN IVP Nausea & Vomiting 08/15/20 13:00 09/14/20 12:59 Metoprolol Tartrate (Lopressor) 25 mg Q12HR NG 08/13/20 09:00 11/11/20 08:59 08/23/20 21:08 Pantoprazole (Protonix) 40 mg DAILY ORAL 08/23/20 09:00 09/22/20 08:59 08/24/20 08:49 Piperacillin Sod/ Tazobactam Sod 3.375 gm/Sodium Chloride 110 ml @ 27.5 mls/hr EVERY 8 HOURS IVPB 08/21/20 14:00 08/28/20 13:59 08/24/20 05:44 Sodium Chloride 1,000 ml @ 50 mls/hr Q20H IV 08/21/20 07:30 09/20/20 07:29 08/23/20 02:00 Wagner Christensen MD Aug 24, 2020 11:22
--- NOTE | 2020-08-24 12:00 | NUR ---
NURSE NOTES: VS remain stable. Pt is afebrile. Oral care was done. Pt had BM x1, large/brown/very soft/lava consistency. Bed bath was given. Gown/bed linens were changed. Pt was repositioned for comfort.
--- NOTE | 2020-08-24 14:00 | NUR ---
NURSE NOTES: Dr Loaiza at nurse's station and mentioned plan for possible trach placement later this week, poss on . Pt's daughter contacted the nurse's station, was updated on pt's status and per daughter, aware regarding plan of trach placement.
--- NOTE | 2020-08-24 15:00 | NUR ---
NURSE NOTES: Dr Gilmore was notified regarding lab result, K level=3.2. No new orders at this time. Awaiting for response.
--- NOTE | 2020-08-24 17:17 | Consultation ---
History of Present Illness General Date patient seen: Aug 24, 2020 Chief Complaint: Dyspnea/Respdistress Present Illness HPI 89 year old male currently in icu at [facility] [place] failed weaning on multiple attempts. surgery called to evaluate for trach. patient seen, chart reviewed, patient examined. unable to obtain history given condition. Allergies: Coded Allergies: No Known Allergies (Unverified , 08/02/20) Medication History Scheduled Ascorbic Acid* (Vitamin C*), 250 MG ORAL TWICE A DAY, (Reported) Bisacodyl (Bisacodyl), 10 MG RC DAILY, (Reported) Carbidopa/Levodopa 25-100 Mg* (Sinemet 25-100 Mg Tablet*), 1 TAB ORAL THREE TIMES A DAY, (Reported) Ergocalciferol (Vitamin D2) (Vitamin D2), 1.25 MG PO EVERY MONDAY, (Reported) Finasteride* (Proscar*), 5 MG ORAL QHS, (Reported) Fluticasone Propion/Salmeterol (Airduo Digihaler 232-14 Mcg), 1 EACH IH BID, (Reported) Memantine Hcl* (Namenda*), 10 MG ORAL QHS, (Reported) Montelukast Sodium* (Singulair*), 10 MG ORAL QHS, (Reported) Multivitamins* (Multivitamins*), 1 TAB ORAL DAILY, (Reported) Spironolactone* (Aldactone*), 50 MG ORAL BID, (Reported) Tamsulosin HCl (Flomax), 0.4 MG ORAL BID, (Reported) Scheduled PRN Acetaminophen* (Acetaminophen 325MG Tablet*), 325 MG ORAL Q4H PRN for TEMP>100 F AND MILD PAIN, (Reported) Patient History Limited by: medical condition History Provided By: Medical Record, PMD Healthcare decision maker Resuscitation status Advanced Directive on File Past Medical/Surgical History Past Medical/Surgical History: (1) Pneumonia (2) Hypoxia (3) Sepsis (4) UTI (urinary tract infection) (5) Pneumonia (6) AMS (altered mental status) Review of Systems All Other Systems: negative except mentioned in HPI ROS Narrative limited given patients medical condition Physical Exam General Appearance: confused, mild distress Lines, tubes and drains: PICC HEENT: normocephalic, atraumatic, anicteric, mucous membranes moist Neck: non-tender, normal alignment, supple, other Respiratory/Chest: decreased breath sounds, on vent Cardiovascular/Chest: normal rate Abdomen: soft, no organomegaly, no mass, other Genitourinary/Rectal: normal rectal exam Extremities: non-tender, normal inspection Skin Exam: warm/dry Neurologic: other Last 24 Hour Vital Signs Date Time Temp Pulse Resp B/P (MAP) Pulse Ox O2 Delivery O2 Flow Rate FiO2 08/24/20 17:00 94 25 134/58 (83) 98 08/24/20 16:00 81 08/24/20 16:00 93 28 104/56 (72) 98 08/24/20 15:00 97 26 128/70 (89) 96 08/24/20 14:00 96 26 113/75 (88) 96 08/24/20 13:00 79 20 110/58 (75) 99 08/24/20 12:00 78 20 150/72 (98) 100 08/24/20 12:00 79 08/24/20 11:00 80 29 150/72 (98) 99 08/24/20 10:50 75 27 60 08/24/20 10:00 84 28 129/78 (95) 99 08/24/20 09:00 67 98/70 08/24/20 09:00 64 20 98/77 (84) 99 08/24/20 08:00 60 08/24/20 08:00 Mechanical Ventilator 60.0 08/24/20 08:00 90 08/24/20 08:00 98.0 92 32 138/61 (86) 98 08/24/20 07:25 91 32 60 08/24/20 07:00 95 31 153/40 (77) 95 08/24/20 06:00 143/52 (82) 08/24/20 05:00 93 33 159/53 (88) 99 08/24/20 04:00 60 08/24/20 04:00 Mechanical Ventilator 60.0 08/24/20 04:00 98.6 78 25 93/69 (77) 100 08/24/20 03:30 87 25 60 08/24/20 03:16 90 08/24/20 03:00 88 29 129/63 (85) 98 08/24/20 02:00 70 25 118/56 (76) 100 08/24/20 01:00 84 29 139/46 (77) 98 08/24/20 00:15 86 33 98 08/24/20 00:00 Mechanical Ventilator 60.0 08/24/20 00:00 60 08/24/20 00:00 98.2 82 29 134/57 (82) 99 08/23/20 23:51 66 08/23/20 23:15 71 26 60 08/23/20 23:00 73 25 139/54 (82) 100 08/23/20 22:00 76 28 139/54 (82) 99 08/23/20 21:08 87 152/59 08/23/20 21:00 80 30 118/47 (70) 99 08/23/20 20:00 Mechanical Ventilator 60.0 08/23/20 20:00 60 08/23/20 20:00 85 08/23/20 20:00 98.1 85 25 152/59 (90) 99 08/23/20 19:00 89 30 148/55 (86) 99 08/23/20 19:00 90 30 60 08/23/20 18:15 91 98 08/23/20 18:00 83 30 141/60 (87) 98 Intake and Output 08/23/20 08/24/20 19:00 07:00 Intake Total 370 ml 954.14602 ml Output Total 220 ml 117 ml Balance 150 ml 837.00571 ml Free Water 200 ml 90 ml IV Total 50 ml 744.31786 ml Tube Feeding 120 ml 120 ml Output Urine Total 220 ml 117 ml # Bowel Movements 2 Laboratory Tests Test 08/24/20 05:29 Sodium Level 141 MMOL/L (136-145) Potassium Level 3.2 MMOL/L (3.5-5.1) L Chloride Level 106 MMOL/L (98-107) Carbon Dioxide Level 28 MMOL/L (21-32) Anion Gap 7 mmol/L (5-15) Blood Urea Nitrogen 32 mg/dL (7-18) H Creatinine 1.2 MG/DL (0.55-1.30) Estimat Glomerular Filtration Rate 57.1 mL/min (>60) Glucose Level 102 MG/DL (74-106) Calcium Level 8.1 MG/DL (8.5-10.1) L Total Bilirubin 0.4 MG/DL (0.2-1.0) Aspartate Amino Transf (AST/SGOT) 35 U/L (15-37) Alanine Aminotransferase (ALT/SGPT) 27 U/L (12-78) Alkaline Phosphatase 117 U/L (46-116) H Total Protein 5.0 G/DL (6.4-8.2) L Albumin 0.9 G/DL (3.4-5.0) L Globulin 4.1 g/dL Albumin/Globulin Ratio 0.2 (1.0-2.7) L Height (Feet): 5 Height (Inches): 5.00 Weight (Pounds): 99 Medications Current Medications Medications (Trade) Dose Ordered Sig/Javon Route PRN Reason Start Time Stop Time Status Last Admin Dose Admin Acetaminophen (Tylenol) 650 mg Q4H PRN ORAL Mild Pain (Pain Scale 1-3) 08/03/20 01:15 09/02/20 01:14 08/23/20 08:21 Acetaminophen (Tylenol) 650 mg Q4H PRN RECTAL Mild Pain (Pain Scale 1-3) 08/03/20 01:15 09/02/20 01:14 08/04/20 18:32 Amiodarone HCl (Cordarone) 200 mg DAILY NG 08/17/20 09:00 11/15/20 08:59 08/24/20 08:49 Carbidopa/Levodopa (Sinemet 25/100) 1 tab THREE TIMES A DAY NG 08/09/20 18:00 09/02/20 08:59 08/24/20 14:02 Heparin Sodium (Porcine) (Heparin 5000 units/ml) 5,000 units EVERY 12 HOURS SUBQ 08/03/20 09:00 09/17/20 08:59 08/24/20 08:52 Hydralazine HCl (Apresoline) 25 mg Q6H PRN NG SBP above 160 08/11/20 22:30 11/05/20 00:29 08/12/20 15:09 Magnesium Hydroxide (Mom) 30 ml DAILYPRN PRN GT Constipation 08/12/20 09:00 09/11/20 08:59 Metoclopramide HCl (Reglan) 5 mg Q8H PRN IVP Nausea & Vomiting 08/15/20 13:00 09/14/20 12:59 Metoprolol Tartrate (Lopressor) 25 mg Q12HR NG 08/13/20 09:00 11/11/20 08:59 08/23/20 21:08 Pantoprazole (Protonix) 40 mg DAILY ORAL 08/23/20 09:00 09/22/20 08:59 08/24/20 08:49 Piperacillin Sod/ Tazobactam Sod 3.375 gm/Sodium Chloride 110 ml @ 27.5 mls/hr EVERY 8 HOURS IVPB 08/21/20 14:00 08/28/20 13:59 08/24/20 09:05 Sodium Chloride 1,000 ml @ 50 mls/hr Q20H IV 08/21/20 07:30 09/20/20 07:29 08/24/20 14:56 Assessment/Plan Problem List: (1) Pneumonia ICD Codes: J18.9 - Pneumonia, unspecified organism SNOMED: 305555469 (2) Hypoxia ICD Codes: R09.02 - Hypoxemia SNOMED: 936082055 (3) Sepsis Assessment & Plan: respiratory insufficiency prolonged ventilatory support failed weaning trials weaning vent as much as possible anticipate prolong vent support trach indicated and recommended will obtain consent plan for trach as able to wean thank you cont weaning will follow with recs ICD Codes: A41.9 - Sepsis, unspecified organism SNOMED: 73936071 (4) UTI (urinary tract infection) ICD Codes: N39.0 - Urinary tract infection, site not specified SNOMED: 14972256 (5) Pneumonia ICD Codes: J18.9 - Pneumonia, unspecified organism SNOMED: 932035649 (6) AMS (altered mental status) ICD Codes: R41.82 - Altered mental status, unspecified SNOMED: 141909304 Isaias Loaiza Aug 24, 2020 17:17
--- NOTE | 2020-08-24 17:30 | NUR ---
NURSE NOTES: Pt had BM, large/brown/very soft/lava consistency. Pt was cleaned, bed/bath given. Pt was repositioned for comfort. VS remain stable.
--- NOTE | 2020-08-24 19:10 | NUR ---
NURSE HAND-OFF REPORT: Latest Vital Signs: Temperature 98.2 , Pulse 95 , B/P 140 /80 , Respiratory Rate 26 , O2 SAT 98 , Mechanical Ventilator, AC20, VT500, Peep 5, FIO2 60^. Vital Sign Comment: Remains with stable VS and afebrile. EKG Rhythm: Sinus Rhythm Rhythm change?: William KURTZ Notified?: William Montoya MD Response: Message left await call Latest José Fall Score: 75 Fall Risk: High Risk Safety Measures: Call light Within Reach, Bed Alarm Zone 1, Side Rails Side Rails x3, Bed position Low and Locked. Fall Precautions: Yellow Socks Yellow Gown Door Sign Patient Fall Education Report given to Rolanda ARGUELLES. Endorsed plan of care.
--- NOTE | 2020-08-24 19:19 | NUR ---
RESPIRATORY NOTE: Received pt on AC VC+ 20, 500VT, 60%, PEEP +5. Pt intubated w/ an ETT 7.5 @ 25cm lipline, secured by anchorfast. Pt awake/disoriented. B/S pino. rales/rhonchi, sxn moderate to large amounts of thick, fuentes-yellow to bloody secretions. Bite block in place as pt tends to bite down ETT. Vent plugged into red outlet, ambubag at bedside. Pt in no apparent distress at this time. Will continue to monitor pt.
--- NOTE | 2020-08-24 20:00 | NUR ---
NURSE NOTES: awake, open eyes on verbal and tactile stimulation but does not follow simple commands, keeps eyes closed thou when tried to check pupils, in no acute distress, aircraft instrument mechanic shows nsr bp 112/53, orally vented with ac 20 tv 500, fio2 60% peep 5, o2 sat 98-100% ngt to right nares intact and patent with osmolite 1.5 feeding at 10ml going, no residual, iv sites good to left and right forearm, both arms swollen more to left arm and weeping serous fluid, soft restraints on to both wrists inplace to prevent self extubation, noted that he tries to grab for ett when restraints are released, springer cath intact and draining scanty urine output,repositioned, withblack scab at the bridge of the nose, optifoam dressing dry and intact to sacral area
--- NOTE | 2020-08-24 22:00 | NUR ---
NURSE NOTES: tolerating present vent settings, in no distress , incontinent of small amount of loose, dark brown stool, cleanse and skin care done
[2020-08-25] VITALS (24 sets, daily range): BP systolic 92–157; BP diastolic 44–75
--- NOTE | 2020-08-25 | NUR ---
NURSE NOTES: urine output 0-10ml/hr, continue to tolerate ngt feeding, no residual, remains afebrile
--- NOTE | 2020-08-25 02:00 | NUR ---
NURSE NOTES: oral care done, bite block on, put by rt, bites on the ett, a7d oint applied to scabs at the bridge of the nose and also on right and left nares
--- NOTE | 2020-08-25 03:00 | Cardiology Progress Note ---
Subjective DATE OF SERVICE: Aug 24, 2020 Remains orally intubated with mechanical ventilation. O2 requirements have decreased to 60%. BP readings improved Monitor: sinus rhythm with occ atrial ectopy No change in care plan noted from family - they now reaffirm FULL code status I spoke to gr dtr 08/21; she states that family want to honor his wishes, which were to live as long as possible. I explained to her that if no evidence of successful wean off vent over next few days. At that point we would consider a trach. Objective Last 24 Hour Vital Signs Date Time Temp Pulse Resp B/P (MAP) Pulse Ox O2 Delivery O2 Flow Rate FiO2 08/25/20 02:00 65 25 92/51 (65) 99 08/25/20 01:00 73 23 129/68 (88) 99 08/25/20 00:00 Mechanical Ventilator 60.0 08/25/20 00:00 70 08/25/20 00:00 98.3 70 24 115/65 (82) 99 08/24/20 23:16 63 20 60 08/24/20 23:00 65 20 110/54 (72) 100 08/24/20 22:00 66 20 99/59 (72) 100 08/24/20 21:08 85 128/69 08/24/20 21:00 85 25 128/69 (88) 98 08/24/20 20:00 60 08/24/20 20:00 98.1 96 28 112/53 (72) 100 08/24/20 20:00 96 08/24/20 20:00 Mechanical Ventilator 60.0 08/24/20 19:15 95 26 60 08/24/20 19:00 96 29 140/80 (100) 98 08/24/20 18:00 98.2 77 21 123/80 (94) 100 08/24/20 17:00 94 25 134/58 (83) 98 08/24/20 16:00 Mechanical Ventilator 60.0 08/24/20 16:00 60 08/24/20 16:00 81 08/24/20 16:00 93 28 104/56 (72) 98 08/24/20 15:20 90 27 60 08/24/20 15:00 97 26 128/70 (89) 96 08/24/20 14:00 96 26 113/75 (88) 96 08/24/20 13:00 79 20 110/58 (75) 99 08/24/20 12:00 Mechanical Ventilator 60.0 08/24/20 12:00 78 20 150/72 (98) 100 08/24/20 12:00 79 08/24/20 12:00 60 08/24/20 11:00 80 29 150/72 (98) 99 08/24/20 10:50 75 27 60 08/24/20 10:00 84 28 129/78 (95) 99 08/24/20 09:00 67 98/70 08/24/20 09:00 64 20 98/77 (84) 99 08/24/20 08:00 60 08/24/20 08:00 Mechanical Ventilator 60.0 08/24/20 08:00 90 08/24/20 08:00 98.0 92 32 138/61 (86) 98 08/24/20 07:25 91 32 60 08/24/20 07:00 95 31 153/40 (77) 95 08/24/20 06:00 143/52 (82) 08/24/20 05:00 93 33 159/53 (88) 99 08/24/20 04:00 60 08/24/20 04:00 Mechanical Ventilator 60.0 08/24/20 04:00 98.6 78 25 93/69 (77) 100 08/24/20 03:30 87 25 60 08/24/20 03:16 90 08/24/20 03:00 88 29 129/63 (85) 98 ROS: unchanged from my evaluation of 08/02/20 HEENT: Orally intubated, Mechanically Ventilated, Thick Secretions ET Tube RHYTHM: NSR, PACs LUNGS: bilateral rhonchi CARDIAC: normal S1 and S2, irregularly irregular, systolic murmur - 1/6 systolic murmurat apex, rapid rate ABDOMEN: normal bowel sounds, non tender, soft, no organomegaly, other - NGTube EXTREMITIES: normal range of motion, trace edema Laboratory Tests Test 08/24/20 05:29 Sodium Level 141 MMOL/L (136-145) Potassium Level 3.2 MMOL/L (3.5-5.1) L Chloride Level 106 MMOL/L (98-107) Carbon Dioxide Level 28 MMOL/L (21-32) Anion Gap 7 mmol/L (5-15) Blood Urea Nitrogen 32 mg/dL (7-18) H Creatinine 1.2 MG/DL (0.55-1.30) Estimat Glomerular Filtration Rate 57.1 mL/min (>60) Glucose Level 102 MG/DL (74-106) Calcium Level 8.1 MG/DL (8.5-10.1) L Total Bilirubin 0.4 MG/DL (0.2-1.0) Aspartate Amino Transf (AST/SGOT) 35 U/L (15-37) Alanine Aminotransferase (ALT/SGPT) 27 U/L (12-78) Alkaline Phosphatase 117 U/L (46-116) H Total Protein 5.0 G/DL (6.4-8.2) L Albumin 0.9 G/DL (3.4-5.0) L Globulin 4.1 g/dL Albumin/Globulin Ratio 0.2 (1.0-2.7) L Assessment/Plan Assessment/Plan Paroxysmal atrial fibrillation with RVR, now controlled on amiodarone Acute myocardial ischemia with elevated troponin Aspiration risk Sepsis Healthcare acquired PNA Complicated UTI with indwelling catheter Hyponatremia Severe protein calorie malnutrition Acute myocardial ischemia Respiratory failure with hypoxia and hypercarbia - now on mech ventilation Hypokalemia Leukocytosis improving Ac/chronic diastolic CHF Dehydration/hypernatremia corrected CRITICAL & GUARDED Empiric antibiotics Vent support with wean as able NGTube feedings DVT prophylaxis Potassium replacement as needed. Continue amiodarone - dose adjustments prn Titrate anti-HTN regimen as needed. Diuresis ordered based on clinical parameters. Sarkis Herman MD Aug 25, 2020 03:00
--- NOTE | 2020-08-25 03:15 | NUR ---
NURSE NOTES: dr kay ordered to dc ivf of ns and also to give kdur 4omeq via ngt,done
--- NOTE | 2020-08-25 04:00 | NUR ---
NURSE NOTES: did not titrate fio2, o2 sat goes down to low 90's at times lisa when care provided
[2020-08-25] MEDS: Piperacillin/Tazobactam 3.375 GM in NS 110 ML IVPB SCH (05:23)
--- NOTE | 2020-08-25 05:59 | General Progress Note ---
Subjective ROS Limited/Unobtainable: Yes Constitutional: Reports: malaise, weakness HEENT: Reports: no symptoms Cardiovascular: Reports: no symptoms Respiratory: Reports: shortness of breath, sputum Gastrointestinal/Abdominal: Reports: difficulty swallowing Genitourinary: Reports: no symptoms Neurologic/Psychiatric: Reports: pre-existing deficit Endocrine: Reports: no symptoms Hematologic/Lymphatic: Reports: anemia Allergies: Coded Allergies: No Known Allergies (Unverified , 08/02/20) All Systems: reviewed and negative except above Subjective no real change. remains on 60% fio2. intermittent desaturation due to bitting ETT. no fevers. Am labs pending. tolerating feeds. Objective Last 24 Hour Vital Signs Date Time Temp Pulse Resp B/P (MAP) Pulse Ox O2 Delivery O2 Flow Rate FiO2 08/25/20 05:08 90 30 136/59 (84) 98 08/25/20 04:16 Mechanical Ventilator 60.0 08/25/20 04:15 75 08/25/20 04:00 98.0 75 30 104/56 (72) 92 08/25/20 04:00 60 08/25/20 03:13 81 28 60 08/25/20 03:00 65 25 118/67 (84) 99 08/25/20 02:00 65 25 92/51 (65) 99 08/25/20 01:00 73 23 129/68 (88) 99 08/25/20 00:00 Mechanical Ventilator 60.0 08/25/20 00:00 70 08/25/20 00:00 98.3 70 24 115/65 (82) 99 08/25/20 00:00 60 08/24/20 23:16 63 20 60 08/24/20 23:00 65 20 110/54 (72) 100 08/24/20 22:00 66 20 99/59 (72) 100 08/24/20 21:08 85 128/69 08/24/20 21:00 85 25 128/69 (88) 98 08/24/20 20:00 60 08/24/20 20:00 98.1 96 28 112/53 (72) 100 08/24/20 20:00 96 08/24/20 20:00 Mechanical Ventilator 60.0 08/24/20 19:15 95 26 60 08/24/20 19:00 96 29 140/80 (100) 98 08/24/20 18:00 98.2 77 21 123/80 (94) 100 08/24/20 17:00 94 25 134/58 (83) 98 08/24/20 16:00 Mechanical Ventilator 60.0 08/24/20 16:00 60 08/24/20 16:00 81 08/24/20 16:00 93 28 104/56 (72) 98 08/24/20 15:20 90 27 60 08/24/20 15:00 97 26 128/70 (89) 96 08/24/20 14:00 96 26 113/75 (88) 96 08/24/20 13:00 79 20 110/58 (75) 99 08/24/20 12:00 Mechanical Ventilator 60.0 08/24/20 12:00 78 20 150/72 (98) 100 08/24/20 12:00 79 08/24/20 12:00 60 08/24/20 11:00 80 29 150/72 (98) 99 08/24/20 10:50 75 27 60 08/24/20 10:00 84 28 129/78 (95) 99 08/24/20 09:00 67 98/70 08/24/20 09:00 64 20 98/77 (84) 99 08/24/20 08:00 60 08/24/20 08:00 Mechanical Ventilator 60.0 08/24/20 08:00 90 08/24/20 08:00 98.0 92 32 138/61 (86) 98 08/24/20 07:25 91 32 60 08/24/20 07:00 95 31 153/40 (77) 95 08/24/20 06:00 143/52 (82) Intake and Output 08/24/20 08/25/20 19:00 07:00 Intake Total 755.0 ml 590 ml Output Total 48 ml 65 ml Balance 707.0 ml 525 ml Free Water 30 ml 90 ml IV Total 605.0 ml 400 ml Tube Feeding 120 ml 100 ml Output Urine Total 48 ml 65 ml # Bowel Movements 3 1 Height (Feet): 5 Height (Inches): 5.00 Weight (Pounds): 99 Objective General Appearance: WD/WN, confused, thin. orally intubated EENT: normal ENT inspection Neck: non-tender, normal alignment, supple Cardiovascular: normal rate, regular rhythm Respiratory/Chest: chest wall non-tender, lungs clear, normal breath sounds, no respiratory distress, no accessory muscle use Abdomen: normal bowel sounds, non tender, soft, no organomegaly Edema: no edema noted Arm (L), no edema noted Arm (R) Assessment/Plan Problem List: (1) Pneumonia ICD Codes: J18.9 - Pneumonia, unspecified organism SNOMED: 467345546 (2) Hypoxia ICD Codes: R09.02 - Hypoxemia SNOMED: 642602015 (3) AMS (altered mental status) ICD Codes: R41.82 - Altered mental status, unspecified SNOMED: 118530930 (4) UTI (urinary tract infection) ICD Codes: N39.0 - Urinary tract infection, site not specified SNOMED: 19763953 (5) Sepsis ICD Codes: A41.9 - Sepsis, unspecified organism SNOMED: 59837054 Status: stable, not improved Assessment/Plan: vent support wean as able ngt feeds suctioning monitor labs/lytes replace as needed amiodarone per cards dvt/stress ulcer prophylaxis turn q2 ativan for agitation very poor prognosis family updated. Chavez Gilmore MD Aug 25, 2020 05:59
--- NOTE | 2020-08-25 06:00 | NUR ---
NURSE NOTES: am care done, no bowel mocement at this time, property assessment monitor shows nsr, bp 134/75, slightly tachypneic but in no acute distress
--- NOTE | 2020-08-25 06:10 | NUR ---
NURSE NOTES: dr lei here, updated with patient's condition
--- NOTE | 2020-08-25 07:08 | NUR ---
RESPIRATORY NOTE: Received pt on AC VC+ 20, 500, 60% fio2, PEEP +5. Pt intubated w/ an ETT 7.5 @ 25cm lipline, secured by anchorfast. Pt awake/disoriented. B/S pino. rales/rhonchi, sxn moderate to large amounts of thick, fuentes-yellow to bloody secretions. Bite block in place as pt tends to bite down ETT. Vent plugged into red outlet, ambubag at bedside. Pt in no apparent distress at this time. Will continue to monitor pt.
--- NOTE | 2020-08-25 07:12 | NUR ---
NURSE HAND-OFF REPORT: Latest Vital Signs: Temperature 98.0 , Pulse 88 , B/P 127 /61 , Respiratory Rate 27 , O2 SAT 100 , Mechanical Ventilator, O2 Flow Rate 60.0 . Vital Sign Comment: stable EKG Rhythm: Sinus Rhythm Rhythm change?: N Notified?: N Response: Latest José Fall Score: 75 Fall Risk: High Risk Safety Measures: Call light Within Reach, Bed Alarm Zone 1, Side Rails Side Rails x3, Bed position Low and Locked. Fall Precautions: yellow socks Yellow Gown Door Sign Patient Fall Education Report given to .ethel harden rn
--- NOTE | 2020-08-25 07:13 | NUR ---
NURSE NOTES: Received patient in bed. Opens eyes to voice/touch, however does not follow commands. Orally intubated, ETT 7.5 at 25cm/lipline with vent settings AC20, VT500, Peep 5, FIO2 60% with O2Sat at 99%. Bilateral rhonchi with diminished lung sounds on auscultation. 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 HR 87. Right nare NGT with Osmolyte 1.5 running at 10ml/hour, with zero residual. Overton catheter present, pt is olyguric, draining small amount of dark yellow/mildly cloudy urine. Bilateral upper extremity edema noted, with left upper extremity weeping. Skin alteration noted on nasal bridge. Peripheral IV access present on bilateral FA, both #20G. Bilateral soft wrist restraints are present, to prevent self-extubation, since pt is impulsive and noted to reach for ET tube. Skin and vascular integrity at restraint site remains within normal limits. HOB at 30degrees, bed locked, three side rails up. Contact isolation observed. Will continue with plan of care
[2020-08-25 07:15] LABS: CALCIUM 7.9 MG/DL (8.5-10.1); CREATININE 2.1 MG/DL (0.55-1.30); POTASSIUM 3.4 MMOL/L (3.5-5.1)
[2020-08-25 07:20] LABS: HEMATOCRIT 27.2 % (42.0-52.0); HEMOGLOBIN 9.3 G/DL (14.2-18.0); MEAN CORPUSCULAR VOLUME 89 FL (80-99); PLATELET COUNT 183 K/UL (150-450); RED BLOOD COUNT 3.06 M/UL (4.70-6.10); RED CELL DISTRIBUTION WIDTH 13.1 % (11.6-14.8)
--- NOTE | 2020-08-25 08:18 | Pulmonology Progress Note ---
Subjective ROS Limited/Unobtainable: Yes Constitutional: Reports: fever, other - Bz=611.6 Allergies: Coded Allergies: No Known Allergies (Unverified , 08/02/20) All Systems: reviewed and negative except above Subjective care noted remains intubated diffuse infiltrates on CXR/ oxygenation better poor LOC sedated Objective Last 24 Hour Vital Signs Date Time Temp Pulse Resp B/P (MAP) Pulse Ox O2 Delivery O2 Flow Rate FiO2 08/25/20 08:00 60 08/25/20 08:00 98.1 92 30 145/63 (90) 98 08/25/20 08:00 Mechanical Ventilator 60.0 08/25/20 07:33 95 08/25/20 07:24 82 21 60 08/25/20 07:11 88 27 127/61 (83) 100 08/25/20 06:07 95 28 134/75 (94) 96 08/25/20 05:08 90 30 136/59 (84) 98 08/25/20 04:16 Mechanical Ventilator 60.0 08/25/20 04:15 75 08/25/20 04:00 98.0 75 30 104/56 (72) 92 08/25/20 04:00 60 08/25/20 03:13 81 28 60 08/25/20 03:00 65 25 118/67 (84) 99 08/25/20 02:00 65 25 92/51 (65) 99 08/25/20 01:00 73 23 129/68 (88) 99 08/25/20 00:00 Mechanical Ventilator 60.0 08/25/20 00:00 70 08/25/20 00:00 98.3 70 24 115/65 (82) 99 08/25/20 00:00 60 08/24/20 23:16 63 20 60 08/24/20 23:00 65 20 110/54 (72) 100 08/24/20 22:00 66 20 99/59 (72) 100 08/24/20 21:08 85 128/69 08/24/20 21:00 85 25 128/69 (88) 98 08/24/20 20:00 60 08/24/20 20:00 98.1 96 28 112/53 (72) 100 08/24/20 20:00 96 08/24/20 20:00 Mechanical Ventilator 60.0 08/24/20 19:15 95 26 60 12/7/20 19:00 96 29 140/80 (100) 98 08/24/20 18:00 98.2 77 21 123/80 (94) 100 08/24/20 17:00 94 25 134/58 (83) 98 08/24/20 16:00 Mechanical Ventilator 60.0 08/24/20 16:00 60 08/24/20 16:00 81 08/24/20 16:00 93 28 104/56 (72) 98 08/24/20 15:20 90 27 60 08/24/20 15:00 97 26 128/70 (89) 96 08/24/20 14:00 96 26 113/75 (88) 96 08/24/20 13:00 79 20 110/58 (75) 99 08/24/20 12:00 Mechanical Ventilator 60.0 08/24/20 12:00 78 20 150/72 (98) 100 08/24/20 12:00 79 08/24/20 12:00 60 08/24/20 11:00 80 29 150/72 (98) 99 08/24/20 10:50 75 27 60 08/24/20 10:00 84 28 129/78 (95) 99 08/24/20 09:00 67 98/70 08/24/20 09:00 64 20 98/77 (84) 99 Intake and Output 08/24/20 08/25/20 19:00 07:00 Intake Total 755.0 ml 600 ml Output Total 48 ml 65 ml Balance 707.0 ml 535 ml Free Water 30 ml 90 ml IV Total 605.0 ml 400 ml Tube Feeding 120 ml 110 ml Output Urine Total 48 ml 65 ml # Bowel Movements 3 1 Objective WDWN NAD reduced breath sounds bilaterally with scattered rhonchi (not improved) [id number] NABS nontender no CCE nonfocal on BIPAP poorly responsive Laboratory Tests 08/25/20 06:35: White Blood Count 12.0H, Red Blood Count 3.06L, Hemoglobin 9.3L, Hematocrit 27.2L, Mean Corpuscular Volume 89, Mean Corpuscular Hemoglobin 30.4, Mean Corpuscular Hemoglobin Concent 34.3, Red Cell Distribution Width 13.1, Platelet Count 183, Mean Platelet Volume 9.2, Neutrophils (%) (Auto) , Lymphocytes (%) (Auto) , Monocytes (%) (Auto) , Eosinophils (%) (Auto) , Basophils (%) (Auto) , Neutrophils % (Manual) [Pending], Lymphocytes % (Manual) [Pending], Platelet Estimate [Pending], Platelet Morphology [Pending], Sodium Level 142, Potassium Level 3.4L, Chloride Level 108H, Carbon Dioxide Level 28, Anion Gap 6, Blood Urea Nitrogen 42H, Creatinine 2.1#H, Estimat Glomerular Filtration Rate 30.0, Glucose Level 138H, Calcium Level 7.9L, Magnesium Level 2.0, Pro-B-Type Natriuretic Peptide 3559H Current Medications Medications (Trade) Dose Ordered Sig/Javon Route PRN Reason Start Time Stop Time Status Last Admin Dose Admin Acetaminophen (Tylenol) 650 mg Q4H PRN ORAL Mild Pain (Pain Scale 1-3) 08/03/20 01:15 09/02/20 01:14 08/23/20 08:21 Acetaminophen (Tylenol) 650 mg Q4H PRN RECTAL Mild Pain (Pain Scale 1-3) 08/03/20 01:15 09/02/20 01:14 08/04/20 18:32 Amiodarone HCl (Cordarone) 200 mg DAILY NG 08/17/20 09:00 11/15/20 08:59 08/24/20 08:49 Carbidopa/Levodopa (Sinemet 25/100) 1 tab THREE TIMES A DAY NG 08/09/20 18:00 09/02/20 08:59 08/24/20 17:17 Heparin Sodium (Porcine) (Heparin 5000 units/ml) 5,000 units EVERY 12 HOURS SUBQ 08/03/20 09:00 09/17/20 08:59 08/24/20 21:10 Hydralazine HCl (Apresoline) 25 mg Q6H PRN NG SBP above 160 08/11/20 22:30 11/05/20 00:29 08/12/20 15:09 Lorazepam (Ativan 2mg/ml 1ml) 1 mg Q4H PRN IV For Anxiety 08/25/20 06:00 09/01/20 05:59 Magnesium Hydroxide (Mom) 30 ml DAILYPRN PRN GT Constipation 08/12/20 09:00 09/11/20 08:59 Metoclopramide HCl (Reglan) 5 mg Q8H PRN IVP Nausea & Vomiting 08/15/20 13:00 09/14/20 12:59 Metoprolol Tartrate (Lopressor) 25 mg Q12HR NG 08/13/20 09:00 11/11/20 08:59 08/24/20 21:08 Pantoprazole (Protonix) 40 mg DAILY IVP 08/25/20 09:00 09/24/20 08:59 UNV Piperacillin Sod/ Tazobactam Sod 3.375 gm/Sodium Chloride 110 ml @ 27.5 mls/hr EVERY 8 HOURS IVPB 08/21/20 14:00 08/28/20 13:59 08/25/20 05:23 Assessment/Plan Assessment/Plan ASSESSMENT: chronic encephalopathy, dementia, diffuse infiltrates, elevated BNP hypertension, recurrent falls, and urinary tract infection, hypoxemia, probable aspiration pneumonia. acute respiratory failure hypoxemic PLAN care noted taper fio2- as able respiratory care as is- monitor acid base vent support as is full for now monitor imaging suction off load proceed with trach and GT- too ill to wean at present Full code for now per family nutrition DVT prophylaxis skin care position change remains critical with poor prognosis medications/laboratory data/nursing notes/ICU care reviewed in detail note reviewed and edited care discussed with RN and RT ICU time spent >40 minutes Eriberto Valencia MD Aug 25, 2020 08:18
[2020-08-25] MEDS: Levodopa/Carbidopa 25/100 tab NG SCH ×3 (08:19→17:06)
[2020-08-25] MEDS: Amiodarone 200mg tab NG SCH (08:19)
[2020-08-25] MEDS: Pantoprazole Inj IVP SCH (08:29)
[2020-08-25] MEDS: Heparin 5000 units/ml inj SUBQ SCH ×2 (08:30→20:29)
--- NOTE | 2020-08-25 10:30 | NUR ---
NURSE NOTES: Dr. oLaiza spoke with patient's granddaughter via telephone. Discussed the plan for tracheostomy, no consent obtained at this time. Will wait for family's decision.
--- NOTE | 2020-08-25 11:08 | Infectious Diseases Prog Note ---
Assessment/Plan Assessment/Plan antibiotics : zosyn A 1. Right-sided pneumonia. 2. COVID-19 test is negative. 3. Urinary tract infection. 4. Hypertension. 5. Dementia. 6. Respiratory failure. 7. leucocytosis 8. renal failure P 1. continue iv zosyn 2. will follow up cultures 3. poor prognosis Subjective ROS Limited/Unobtainable: Yes Allergies: Coded Allergies: No Known Allergies (Unverified , 08/02/20) Objective Last 24 Hour Vital Signs Date Time Temp Pulse Resp B/P (MAP) Pulse Ox O2 Delivery O2 Flow Rate FiO2 08/25/20 10:00 81 20 100/44 (62) 100 08/25/20 09:00 81 26 112/60 (77) 99 08/25/20 08:19 92 145/63 08/25/20 08:00 60 08/25/20 08:00 98.1 92 30 145/63 (90) 98 08/25/20 08:00 Mechanical Ventilator 60.0 08/25/20 07:33 95 08/25/20 07:24 82 21 60 08/25/20 07:11 88 27 127/61 (83) 100 08/25/20 06:07 95 28 134/75 (94) 96 08/25/20 05:08 90 30 136/59 (84) 98 08/25/20 04:16 Mechanical Ventilator 60.0 08/25/20 04:15 75 08/25/20 04:00 98.0 75 30 104/56 (72) 92 08/25/20 04:00 60 08/25/20 03:13 81 28 60 08/25/20 03:00 65 25 118/67 (84) 99 08/25/20 02:00 65 25 92/51 (65) 99 08/25/20 01:00 73 23 129/68 (88) 99 08/25/20 00:00 Mechanical Ventilator 60.0 08/25/20 00:00 70 08/25/20 00:00 98.3 70 24 115/65 (82) 99 08/25/20 00:00 60 08/24/20 23:16 63 20 60 08/24/20 23:00 65 20 110/54 (72) 100 08/24/20 22:00 66 20 99/59 (72) 100 08/24/20 21:08 85 128/69 12/7/20 21:00 85 25 128/69 (88) 98 08/24/20 20:00 60 08/24/20 20:00 98.1 96 28 112/53 (72) 100 08/24/20 20:00 96 08/24/20 20:00 Mechanical Ventilator 60.0 08/24/20 19:15 95 26 60 08/24/20 19:00 96 29 140/80 (100) 98 08/24/20 18:00 98.2 77 21 123/80 (94) 100 08/24/20 17:00 94 25 134/58 (83) 98 08/24/20 16:00 Mechanical Ventilator 60.0 08/24/20 16:00 60 08/24/20 16:00 81 08/24/20 16:00 93 28 104/56 (72) 98 08/24/20 15:20 90 27 60 08/24/20 15:00 97 26 128/70 (89) 96 08/24/20 14:00 96 26 113/75 (88) 96 08/24/20 13:00 79 20 110/58 (75) 99 08/24/20 12:00 Mechanical Ventilator 60.0 08/24/20 12:00 78 20 150/72 (98) 100 08/24/20 12:00 79 08/24/20 12:00 60 Height (Feet): 5 Height (Inches): 5.00 Weight (Pounds): 99 HEENT: other - intubated Respiratory/Chest: lungs clear Cardiovascular: normal rate, regular rhythm, no gallop/murmur Abdomen: soft, non tender Extremities: other - + edema Laboratory Tests Test 08/25/20 06:35 White Blood Count 12.0 K/UL (4.8-10.8) H Red Blood Count 3.06 M/UL (4.70-6.10) L Hemoglobin 9.3 G/DL (14.2-18.0) L Hematocrit 27.2 % (42.0-52.0) L Mean Corpuscular Volume 89 FL (80-99) Mean Corpuscular Hemoglobin 30.4 PG (27.0-31.0) Mean Corpuscular Hemoglobin Concent 34.3 G/DL (32.0-36.0) Red Cell Distribution Width 13.1 % (11.6-14.8) Platelet Count 183 K/UL (150-450) Mean Platelet Volume 9.2 FL (6.5-10.1) Neutrophils (%) (Auto) % (45.0-75.0) Lymphocytes (%) (Auto) % (20.0-45.0) Monocytes (%) (Auto) % (1.0-10.0) Eosinophils (%) (Auto) % (0.0-3.0) Basophils (%) (Auto) % (0.0-2.0) Differential Total Cells Counted 100 Neutrophils % (Manual) 95 % (45-75) H Lymphocytes % (Manual) 2 % (20-45) L Monocytes % (Manual) 3 % (1-10) Eosinophils % (Manual) 0 % (0-3) Basophils % (Manual) 0 % (0-2) Band Neutrophils 0 % (0-8) Platelet Estimate Adequate Platelet Morphology Normal Anisocytosis 1+ Sodium Level 142 MMOL/L (136-145) Potassium Level 3.4 MMOL/L (3.5-5.1) L Chloride Level 108 MMOL/L (98-107) H Carbon Dioxide Level 28 MMOL/L (21-32) Anion Gap 6 mmol/L (5-15) Blood Urea Nitrogen 42 mg/dL (7-18) H Creatinine 2.1 MG/DL (0.55-1.30) #H Estimat Glomerular Filtration Rate 30.0 mL/min (>60) Glucose Level 138 MG/DL (74-106) H Calcium Level 7.9 MG/DL (8.5-10.1) L Magnesium Level 2.0 MG/DL (1.8-2.4) Pro-B-Type Natriuretic Peptide 3559 pg/mL (0-125) H Current Medications Medications (Trade) Dose Ordered Sig/Javon Route PRN Reason Start Time Stop Time Status Last Admin Dose Admin Acetaminophen (Tylenol) 650 mg Q4H PRN ORAL Mild Pain (Pain Scale 1-3) 08/03/20 01:15 09/02/20 01:14 08/23/20 08:21 Acetaminophen (Tylenol) 650 mg Q4H PRN RECTAL Mild Pain (Pain Scale 1-3) 08/03/20 01:15 09/02/20 01:14 08/04/20 18:32 Amiodarone HCl (Cordarone) 200 mg DAILY NG 08/17/20 09:00 11/15/20 08:59 08/25/20 08:19 Carbidopa/Levodopa (Sinemet 25/100) 1 tab THREE TIMES A DAY NG 08/09/20 18:00 09/02/20 08:59 08/25/20 08:19 Heparin Sodium (Porcine) (Heparin 5000 units/ml) 5,000 units EVERY 12 HOURS SUBQ 08/03/20 09:00 09/17/20 08:59 08/25/20 08:30 Hydralazine HCl (Apresoline) 25 mg Q6H PRN NG SBP above 160 08/11/20 22:30 11/05/20 00:29 08/12/20 15:09 Lorazepam (Ativan 2mg/ml 1ml) 1 mg Q4H PRN IV For Anxiety 08/25/20 06:00 09/01/20 05:59 Magnesium Hydroxide (Mom) 30 ml DAILYPRN PRN GT Constipation 08/12/20 09:00 09/11/20 08:59 Metoclopramide HCl (Reglan) 5 mg Q8H PRN IVP Nausea & Vomiting 08/15/20 13:00 09/14/20 12:59 Metoprolol Tartrate (Lopressor) 25 mg Q12HR NG 08/13/20 09:00 11/11/20 08:59 08/25/20 08:19 Pantoprazole (Protonix) 40 mg DAILY IVP 08/25/20 09:00 09/24/20 08:59 08/25/20 08:29 Piperacillin Sod/ Tazobactam Sod 3.375 gm/Sodium Chloride 110 ml @ 27.5 mls/hr EVERY 8 HOURS IVPB 08/21/20 14:00 08/28/20 13:59 08/25/20 05:23 Wagner Christensen MD Aug 25, 2020 11:08
[2020-08-25] MEDS: LORazepam Inj 2mg/ml 1ml IV PRN (11:32)
--- NOTE | 2020-08-25 11:47 | NUR ---
NURSE NOTES: Informed Dr. Gilmore via telephone that the latest potassium level is 3.4, 40 meq Kdur via NGT x1 was given before the blood draw this morning. No additional order obtained at this time, will continue to monitor.
--- NOTE | 2020-08-25 15:04 | Surgery Progress Note ---
Surgery Progress Note Subjective Additional Comments weaning vent spoke with granddaughter on phone discussed care plan all questions answered. will consider trach as she discussed with family Objective Last 24 Hour Vital Signs Date Time Temp Pulse Resp B/P (MAP) Pulse Ox O2 Delivery O2 Flow Rate FiO2 08/25/20 14:00 67 22 124/54 (77) 99 08/25/20 13:00 66 20 100/52 (68) 100 08/25/20 12:02 69 20 109/53 98 08/25/20 12:00 97.7 70 20 109/53 (71) 98 08/25/20 12:00 60 08/25/20 12:00 Mechanical Ventilator 08/25/20 11:43 91 08/25/20 11:32 93 33 156/60 99 08/25/20 11:15 90 31 60 08/25/20 11:00 94 34 156/60 (92) 98 08/25/20 10:00 81 20 100/44 (62) 100 08/25/20 09:00 81 26 112/60 (77) 99 08/25/20 08:19 92 145/63 08/25/20 08:00 60 08/25/20 08:00 98.1 92 30 145/63 (90) 98 08/25/20 08:00 Mechanical Ventilator 60.0 08/25/20 07:33 95 08/25/20 07:24 82 21 60 08/25/20 07:11 88 27 127/61 (83) 100 08/25/20 06:07 95 28 134/75 (94) 96 08/25/20 05:08 90 30 136/59 (84) 98 08/25/20 04:16 Mechanical Ventilator 60.0 08/25/20 04:15 75 08/25/20 04:00 98.0 75 30 104/56 (72) 92 08/25/20 04:00 60 08/25/20 03:13 81 28 60 08/25/20 03:00 65 25 118/67 (84) 99 08/25/20 02:00 65 25 92/51 (65) 99 08/25/20 01:00 73 23 129/68 (88) 99 08/25/20 00:00 Mechanical Ventilator 60.0 08/25/20 00:00 70 08/25/20 00:00 98.3 70 24 115/65 (82) 99 08/25/20 00:00 60 08/24/20 23:16 63 20 60 08/24/20 23:00 65 20 110/54 (72) 100 08/24/20 22:00 66 20 99/59 (72) 100 08/24/20 21:08 85 128/69 08/24/20 21:00 85 25 128/69 (88) 98 08/24/20 20:00 60 08/24/20 20:00 98.1 96 28 112/53 (72) 100 08/24/20 20:00 96 08/24/20 20:00 Mechanical Ventilator 60.0 08/24/20 19:15 95 26 60 08/24/20 19:00 96 29 140/80 (100) 98 08/24/20 18:00 98.2 77 21 123/80 (94) 100 08/24/20 17:00 94 25 134/58 (83) 98 08/24/20 16:00 Mechanical Ventilator 60.0 08/24/20 16:00 60 08/24/20 16:00 81 08/24/20 16:00 93 28 104/56 (72) 98 08/24/20 15:20 90 27 60 I&O Intake and Output 08/24/20 08/25/20 19:00 07:00 Intake Total 755.0 ml 627.5 ml Output Total 48 ml 65 ml Balance 707.0 ml 562.5 ml Free Water 30 ml 90 ml IV Total 605.0 ml 427.5 ml Tube Feeding 120 ml 110 ml Output Urine Total 48 ml 65 ml # Bowel Movements 3 1 Dressing: saturated Cardiovascular: RSR Respiratory: decreased breath sounds Abdomen: non-tender, present bowel sounds Extremities: no tenderness, no cyanosis, other Laboratory Tests Test 08/25/20 06:35 White Blood Count 12.0 K/UL (4.8-10.8) H Red Blood Count 3.06 M/UL (4.70-6.10) L Hemoglobin 9.3 G/DL (14.2-18.0) L Hematocrit 27.2 % (42.0-52.0) L Mean Corpuscular Volume 89 FL (80-99) Mean Corpuscular Hemoglobin 30.4 PG (27.0-31.0) Mean Corpuscular Hemoglobin Concent 34.3 G/DL (32.0-36.0) Red Cell Distribution Width 13.1 % (11.6-14.8) Platelet Count 183 K/UL (150-450) Mean Platelet Volume 9.2 FL (6.5-10.1) Neutrophils (%) (Auto) % (45.0-75.0) Lymphocytes (%) (Auto) % (20.0-45.0) Monocytes (%) (Auto) % (1.0-10.0) Eosinophils (%) (Auto) % (0.0-3.0) Basophils (%) (Auto) % (0.0-2.0) Differential Total Cells Counted 100 Neutrophils % (Manual) 95 % (45-75) H Lymphocytes % (Manual) 2 % (20-45) L Monocytes % (Manual) 3 % (1-10) Eosinophils % (Manual) 0 % (0-3) Basophils % (Manual) 0 % (0-2) Band Neutrophils 0 % (0-8) Platelet Estimate Adequate Platelet Morphology Normal Anisocytosis 1+ Sodium Level 142 MMOL/L (136-145) Potassium Level 3.4 MMOL/L (3.5-5.1) L Chloride Level 108 MMOL/L (98-107) H Carbon Dioxide Level 28 MMOL/L (21-32) Anion Gap 6 mmol/L (5-15) Blood Urea Nitrogen 42 mg/dL (7-18) H Creatinine 2.1 MG/DL (0.55-1.30) #H Estimat Glomerular Filtration Rate 30.0 mL/min (>60) Glucose Level 138 MG/DL (74-106) H Calcium Level 7.9 MG/DL (8.5-10.1) L Magnesium Level 2.0 MG/DL (1.8-2.4) Pro-B-Type Natriuretic Peptide 3559 pg/mL (0-125) H Plan Problems: (1) Pneumonia (2) Hypoxia (3) Sepsis Assessment & Plan: respiratory insufficiency prolonged ventilatory support failed weaning trials weaning vent as much as possible anticipate prolong vent support trach indicated and recommended will obtain consent plan for trach as able to wean thank you cont weaning will follow with recs (4) UTI (urinary tract infection) (5) Pneumonia (6) AMS (altered mental status) Isaias Loaiza Aug 25, 2020 15:04
--- NOTE | 2020-08-25 15:05 | Pre-Procedure Note/Attestation ---
Pre-Procedure Note/Attestation Complete Prior to Procedure Procedure Narrative: tracheostomy Indications for Procedure Pre-Operative Diagnosis: ventilatory insufficiency requiring prolonged ventilatory support Attestation I attest that I discussed the nature of the procedure; its benefits; risks and complications; and alternatives (and the risks and benefits of such alternatives), prior to the procedure, with the patient (or the patient's legal inbound call center representative). I attest that, if there was a reasonable possibility of needing a blood tr ansfusion, the patient (or the patient's legal inbound call center representative) was given the [facility] standardized written summary, pursuant to the James Kidder Blood Safety Act ([place] Health and Safety Code # 1645, as amended). I attest that I re-evaluated the patient just prior to the surgery and that there has been no change in the patient's H&P, except as documented below: Isaias Loaiza Aug 25, 2020 15:05
--- NOTE | 2020-08-25 17:00 | NUR ---
NURSE NOTES: Bed bath provided by 2 staff. 1 medium soft bowel movement noted. Kept patient clean and dry.
[2020-08-25] MEDS: Zosyn 3.375gm q12h **Extended infusion IVPB SCH ×2 (17:06)
--- NOTE | 2020-08-25 18:35 | NUR ---
NURSE NOTES: Dr. Herman at bedside. No new order at this time.
--- NOTE | 2020-08-25 19:00 | NUR ---
NURSE NOTES: Received patient from BLANE Lundberg. Patient open eyes no tracking. Sinus rhythm on the monitor. intubated ET 7.5, 25cm at the lip, vent AC 20 TV 500 Fio2 60% PEEP 5, tolerating well. R nare NGT and tube feeding running osmolite 1.5 @10ml/hr. Overton catheter is in place, no output at this time. Bilateral soft restraints on wrists. Bilateral upper and lowest extremities edematous and noted left arm is weeping. Bed to lowest position and locked, call light within easy reach. Will continue plan of care.
--- NOTE | 2020-08-25 19:15 | NUR ---
NURSE HAND-OFF REPORT: Latest Vital Signs: Temperature 97.7 , Pulse 69 , B/P 125 /52 , Respiratory Rate 23 , O2 SAT 97 , Mechanical Ventilator, O2 Flow Rate 60.0 . Vital Sign Comment: EKG Rhythm: Sinus Rhythm Rhythm change?: N Latest José Fall Score: 75 Fall Risk: High Risk Safety Measures: Call light Within Reach, Bed Alarm Zone 1, Side Rails Side Rails x3, Bed position Low and Locked. Fall Precautions: Yellow Socks Yellow Gown Door Sign Patient Fall Education Report given to Sofi Zepeda RN.
--- NOTE | 2020-08-25 22:15 | NUR ---
NURSE NOTES: Patient is in bed without any acute distress. HR 88. no bowel movement, no urine output. started NS 1L @ 75ml/hr
[2020-08-26] VITALS (24 sets, daily range): BP systolic 109–176; BP diastolic 45–83
--- NOTE | 2020-08-26 00:36 | NUR ---
NURSE NOTES: patient is comfortable in bed without any distress. no bowel movement.
--- NOTE | 2020-08-26 01:26 | Cardiology Progress Note ---
Subjective DATE OF SERVICE: Aug 25, 2020 Remains orally intubated with mechanical ventilation. O2 requirements remain at 60%. BP readings stabilizing. Monitor: sinus rhythm with occ atrial ectopy Family aware of need for trach, in anticipation of prolonged vent support and wean. Objective Last 24 Hour Vital Signs Date Time Temp Pulse Resp B/P (MAP) Pulse Ox O2 Delivery O2 Flow Rate FiO2 08/26/20 01:00 66 20 120/52 (74) 99 08/26/20 00:00 Mechanical Ventilator 08/26/20 00:00 98.1 08/26/20 00:00 98.1 78 26 140/53 (82) 97 08/25/20 23:00 75 27 131/58 (82) 90 08/25/20 22:39 74 22 60 08/25/20 22:00 72 22 124/53 (76) 99 08/25/20 21:00 60 08/25/20 21:00 61 20 109/52 (71) 99 08/25/20 20:00 97.9 63 21 113/51 (71) 99 08/25/20 20:00 60 08/25/20 20:00 68 08/25/20 20:00 Mechanical Ventilator 08/25/20 19:00 69 23 125/52 (76) 97 08/25/20 18:55 70 21 60 08/25/20 18:00 67 24 117/54 (75) 98 08/25/20 17:00 82 24 106/54 (71) 93 08/25/20 16:14 63 08/25/20 16:00 Mechanical Ventilator 08/25/20 16:00 60 08/25/20 16:00 97.7 76 26 146/62 (90) 95 08/25/20 16:00 Mechanical Ventilator 08/25/20 15:10 67 27 60 08/25/20 15:00 75 30 157/64 (95) 99 08/25/20 14:00 67 22 124/54 (77) 99 08/25/20 13:00 66 20 100/52 (68) 100 08/25/20 12:02 69 20 109/53 98 08/25/20 12:00 97.7 70 20 109/53 (71) 98 08/25/20 12:00 60 08/25/20 12:00 Mechanical Ventilator 08/25/20 11:43 91 08/25/20 11:32 93 33 156/60 99 08/25/20 11:15 90 31 60 08/25/20 11:00 94 34 156/60 (92) 98 08/25/20 10:00 81 20 100/44 (62) 100 08/25/20 09:00 81 26 112/60 (77) 99 08/25/20 08:19 92 145/63 08/25/20 08:00 60 08/25/20 08:00 98.1 92 30 145/63 (90) 98 08/25/20 08:00 Mechanical Ventilator 60.0 08/25/20 07:33 95 08/25/20 07:24 82 21 60 08/25/20 07:11 88 27 127/61 (83) 100 08/25/20 06:07 95 28 134/75 (94) 96 08/25/20 05:08 90 30 136/59 (84) 98 08/25/20 04:16 Mechanical Ventilator 60.0 08/25/20 04:15 75 08/25/20 04:00 98.0 75 30 104/56 (72) 92 08/25/20 04:00 60 08/25/20 03:13 81 28 60 08/25/20 03:00 65 25 118/67 (84) 99 08/25/20 02:00 65 25 92/51 (65) 99 ROS: unchanged from my evaluation of 08/02/20 HEENT: Orally intubated, Mechanically Ventilated, Thick Secretions ET Tube RHYTHM: NSR, PACs LUNGS: bilateral rhonchi CARDIAC: normal S1 and S2, irregularly irregular, systolic murmur - 1/6 systolic murmurat apex, rapid rate ABDOMEN: normal bowel sounds, non tender, soft, no organomegaly, other - NGTube EXTREMITIES: normal range of motion, trace edema Laboratory Tests Test 08/25/20 06:35 White Blood Count 12.0 K/UL (4.8-10.8) H Red Blood Count 3.06 M/UL (4.70-6.10) L Hemoglobin 9.3 G/DL (14.2-18.0) L Hematocrit 27.2 % (42.0-52.0) L Mean Corpuscular Volume 89 FL (80-99) Mean Corpuscular Hemoglobin 30.4 PG (27.0-31.0) Mean Corpuscular Hemoglobin Concent 34.3 G/DL (32.0-36.0) Red Cell Distribution Width 13.1 % (11.6-14.8) Platelet Count 183 K/UL (150-450) Mean Platelet Volume 9.2 FL (6.5-10.1) Neutrophils (%) (Auto) % (45.0-75.0) Lymphocytes (%) (Auto) % (20.0-45.0) Monocytes (%) (Auto) % (1.0-10.0) Eosinophils (%) (Auto) % (0.0-3.0) Basophils (%) (Auto) % (0.0-2.0) Differential Total Cells Counted 100 Neutrophils % (Manual) 95 % (45-75) H Lymphocytes % (Manual) 2 % (20-45) L Monocytes % (Manual) 3 % (1-10) Eosinophils % (Manual) 0 % (0-3) Basophils % (Manual) 0 % (0-2) Band Neutrophils 0 % (0-8) Platelet Estimate Adequate Platelet Morphology Normal Anisocytosis 1+ Sodium Level 142 MMOL/L (136-145) Potassium Level 3.4 MMOL/L (3.5-5.1) L Chloride Level 108 MMOL/L (98-107) H Carbon Dioxide Level 28 MMOL/L (21-32) Anion Gap 6 mmol/L (5-15) Blood Urea Nitrogen 42 mg/dL (7-18) H Creatinine 2.1 MG/DL (0.55-1.30) #H Estimat Glomerular Filtration Rate 30.0 mL/min (>60) Glucose Level 138 MG/DL (74-106) H Calcium Level 7.9 MG/DL (8.5-10.1) L Magnesium Level 2.0 MG/DL (1.8-2.4) Pro-B-Type Natriuretic Peptide 3559 pg/mL (0-125) H Assessment/Plan Assessment/Plan Paroxysmal atrial fibrillation with RVR, now controlled on amiodarone Acute myocardial ischemia with elevated troponin Aspiration risk Sepsis Healthcare acquired PNA Complicated UTI with indwelling catheter Hyponatremia Severe protein calorie malnutrition Acute myocardial ischemia Respiratory failure with hypoxia and hypercarbia - now on mech ventilation Hypokalemia Leukocytosis improving Ac/chronic diastolic CHF Dehydration/hypernatremia corrected Acute renal failure CRITICAL & GUARDED Empiric antibiotics Vent support with wean as able NGTube feedings DVT prophylaxis Continue amiodarone - dose adjustments prn Titrate anti-HTN regimen as needed. IVF hydration; follow up renal fxn Trach planned. Sarkis Herman MD Aug 26, 2020 01:26
--- NOTE | 2020-08-26 03:30 | NUR ---
NURSE NOTES: provided bed bath, tolerated well.
[2020-08-26] MEDS: Zosyn 3.375gm q12h **Extended infusion IVPB SCH ×4 (05:01→17:08)
[2020-08-26 06:00] LABS: HEMATOCRIT 27.8 % (42.0-52.0); HEMOGLOBIN 9.3 G/DL (14.2-18.0); MEAN CORPUSCULAR VOLUME 90 FL (80-99); PLATELET COUNT 162 K/UL (150-450); RED BLOOD COUNT 3.09 M/UL (4.70-6.10); RED CELL DISTRIBUTION WIDTH 13.2 % (11.6-14.8); WHITE BLOOD COUNT 11.3 K/UL (4.8-10.8)
--- NOTE | 2020-08-26 06:19 | NUR ---
NURSE NOTES: patient is resting in bed without any acute distress. HR 70s-80s. racheal 1.3L total output this shift Addendum: 08/26/20 at 0621 by Lawrence Han Acha, RN Wrong patient
--- NOTE | 2020-08-26 06:20 | NUR ---
NURSE NOTES: patient is resting in bed without any acute distress. suction performed.
[2020-08-26 06:27] LABS: ALBUMIN 0.8 G/DL (3.4-5.0); ALBUMIN/GLOBULIN RATIO 0.2 (1.0-2.7); BILIRUBIN,TOTAL 0.3 MG/DL (0.2-1.0); CALCIUM 7.8 MG/DL (8.5-10.1); CREATININE 2.3 MG/DL (0.55-1.30); POTASSIUM 3.4 MMOL/L (3.5-5.1)
--- NOTE | 2020-08-26 06:55 | NUR ---
NURSE NOTES: at the bedside, making round, updated pt status, and no new order at this time. Will continue to monitor.
--- NOTE | 2020-08-26 07:00 | NUR ---
NURSE HAND-OFF REPORT: Latest Vital Signs: Temperature 98.2 , Pulse 94 , B/P 156 /59 , Respiratory Rate 30 , O2 SAT 97 , Mechanical Ventilator, O2 Flow Rate 60.0 . Vital Sign Comment: stable EKG Rhythm: Sinus Rhythm Rhythm change?: William KURTZ Notified?: William Montoya MD Response: Message left await call Latest José Fall Score: 75 Fall Risk: High Risk Safety Measures: Call light Within Reach, Bed Alarm Zone 1, Side Rails Side Rails x3, Bed position Low and Locked. Fall Precautions: Yellow Socks Yellow Gown Door Sign Patient Fall Education Report given to BLANE Lundberg.
--- NOTE | 2020-08-26 07:01 | NUR ---
NURSE NOTES: Received patient in bed. Opens eyes to voice/touch, however does not follow commands. Orally intubated, ETT 7.5 at 25cm/lipline with vent settings AC20, VT500, Peep 5, FIO2 60% with O2Sat at 99%. Bilateral rhonchi with diminished lung sounds on auscultation. 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 HR 87. Right nare NGT with Osmolyte 1.5 running at 10ml/hour, with zero residual. Overton catheter present, pt is olyguric, draining small amount of dark yellow/mildly cloudy urine. Bilateral upper extremity edema noted, with left upper extremity weeping. Skin alteration noted on nasal bridge. Peripheral IV access present on bilateral FA, both #20G. IVF of NS running at 75ml/hour. Bilateral soft wrist restraints are present, to prevent self-extubation, since pt is impulsive and noted to reach for ET tube. Skin and vascular integrity at restraint site remains within normal limits. HOB at 30degrees, bed locked, three side rails up. Contact isolation observed. Will continue with plan of care
[2020-08-26] MEDS: Heparin 5000 units/ml inj SUBQ SCH ×2 (09:00→20:26)
--- NOTE | 2020-08-26 09:00 | NUR ---
NURSE NOTES: Oral care provided
[2020-08-26] MEDS: Pantoprazole Inj IVP SCH (09:10)
[2020-08-26] MEDS: Levodopa/Carbidopa 25/100 tab NG SCH ×3 (09:10→17:08)
[2020-08-26] MEDS: Amiodarone 200mg tab NG SCH (09:10)
--- NOTE | 2020-08-26 10:48 | NUR ---
NURSE NOTES: New springer cath inserted F 18. Informed Dr. Gilmore that renal ultrasound shows that springer is not inplace. Old springer cath removed and replaced with a new one. 700 ml of urine noted in drainage bag after insertion of new springer cath.
--- NOTE | 2020-08-26 11:00 | NUR ---
NURSE NOTES: Dr. Christensen at bedside.
[2020-08-26 11:03] LABS: INR 1.1 (0.9-1.1)
--- NOTE | 2020-08-26 11:35 | Anethesia Preoperative Eval ---
Anesthesia Pre-op PMH/ROS General Date of Evaluation: Aug 26, 2020 Time of Evaluation: 11:34 Anesthesiologist: Will ASA Score: ASA 4 Mallampati Score Class I : Soft palate, uvula, fauces, pillars visible Class II: Soft palate, uvula, fauces visible Class III: Soft palate, base of uvula visible Class IV: Only hard plate visible Mallampati Classification: Class II Surgeon: Josse Diagnosis: Resp Failure Surgical Procedure: Tracheostomy Anesthesia History: none Allergies: Coded Allergies: No Known Allergies (Unverified , 08/02/20) Medications: see eMAR Patient NPO?: Yes NPO Date: Aug 26, 2020 NPO Time: 00:01 Past Medical History Cardiovascular: Reports: HTN, CAD, CO, arrhythmia - AFIB RVR on Amiodarone; Stable now Pulmonary: Reports: other - Resp Failure, Mech ventilated, failure to wean; Pneumonia; Denies: asthma, COPD, DENZEL Gastrointestinal/Genitourinary: Reports: other - Malnutrition; Denies: GERD, CRI, ESRD Neurologic/Psychiatric: Reports: dementia; Denies: CVA, depression/anxiety, TIA, other Endocrine: Denies: DM, hypothyroidism, steroids, other HEENT: Denies: cataract (L), cataract (R), glaucoma, [place] (L), [place] (R), other Hematology/Immune: Reports: anemia Musculoskeletal/Integumentary: Reports: other - Sepsis, UTI, ; Denies: OA, RA, DJD, DDD, edema PMH Narrative: Paroxysmal atrial fibrillation with RVR, now controlled on amiodarone Acute myocardial ischemia with elevated troponin Aspiration risk Sepsis Healthcare acquired PNA Complicated UTI with indwelling catheter Hyponatremia Severe protein calorie malnutrition Acute myocardial ischemia Respiratory failure with hypoxia and hypercarbia - now on mech ventilation Hypokalemia Leukocytosis improving Ac/chronic diastolic CHF Dehydration/hypernatremia corrected Acute renal failure Anesthesia Pre-op Phys. Exam Physician Exam Last Vital Signs Date Time Temp Pulse Resp B/P (MAP) Pulse Ox O2 Delivery O2 Flow Rate FiO2 08/26/20 11:00 70 25 125/57 (79) 100 08/26/20 10:47 Mechanical Ventilator 08/26/20 08:00 98.0 08/26/20 08:00 60 08/25/20 08:00 60.0 Constitutional: other - weakness, Neurologic: other Cardiovascular: RRR, other - hx AFIB Respiratory: CTA, other Gastrointestinal: other Airway Exam Mallampati Classification 2 Mallampati Score: Class III MO: limited ROM: limited Dentures: no upper, no lower Anesthesia Pre-op A/P Labs Hematology Test 08/26/20 04:40 White Blood Count 11.3 K/UL (4.8-10.8) H Red Blood Count 3.09 M/UL (4.70-6.10) L Hemoglobin 9.3 G/DL (14.2-18.0) L Hematocrit 27.8 % (42.0-52.0) L Mean Corpuscular Volume 90 FL (80-99) Mean Corpuscular Hemoglobin 30.1 PG (27.0-31.0) Mean Corpuscular Hemoglobin Concent 33.5 G/DL (32.0-36.0) Red Cell Distribution Width 13.2 % (11.6-14.8) Platelet Count 162 K/UL (150-450) Mean Platelet Volume 9.5 FL (6.5-10.1) Neutrophils (%) (Auto) % (45.0-75.0) Lymphocytes (%) (Auto) % (20.0-45.0) Monocytes (%) (Auto) % (1.0-10.0) Eosinophils (%) (Auto) % (0.0-3.0) Basophils (%) (Auto) % (0.0-2.0) Differential Total Cells Counted 100 Neutrophils % (Manual) 92 % (45-75) H Lymphocytes % (Manual) 4 % (20-45) L Monocytes % (Manual) 4 % (1-10) Eosinophils % (Manual) 0 % (0-3) Basophils % (Manual) 0 % (0-2) Band Neutrophils 0 % (0-8) Platelet Estimate Adequate Platelet Morphology Normal Hypochromasia 1+ Coagulation Test 08/26/20 10:35 Prothrombin Time 11.7 SEC (9.30-11.50) H Prothromb Time International Ratio 1.1 (0.9-1.1) Activated Partial Thromboplast Time 27 SEC (23-33) Chemistry Test 08/26/20 04:40 Sodium Level 145 MMOL/L (136-145) Potassium Level 3.4 MMOL/L (3.5-5.1) L Chloride Level 111 MMOL/L (98-107) H Carbon Dioxide Level 25 MMOL/L (21-32) Anion Gap 9 mmol/L (5-15) Blood Urea Nitrogen 46 mg/dL (7-18) H Creatinine 2.3 MG/DL (0.55-1.30) H Estimat Glomerular Filtration Rate 27.0 mL/min (>60) Glucose Level 134 MG/DL (74-106) H Calcium Level 7.8 MG/DL (8.5-10.1) L Magnesium Level 2.0 MG/DL (1.8-2.4) Total Bilirubin 0.3 MG/DL (0.2-1.0) Aspartate Amino Transf (AST/SGOT) 28 U/L (15-37) Alanine Aminotransferase (ALT/SGPT) 13 U/L (12-78) Alkaline Phosphatase 115 U/L (46-116) Total Protein 4.5 G/DL (6.4-8.2) L Albumin 0.8 G/DL (3.4-5.0) L Globulin 3.7 g/dL Albumin/Globulin Ratio 0.2 (1.0-2.7) L Studies Pre-op Studies: EKG - hx afib; SR Risk Assessment & Plan Assessment: Covid neg; Orally intubated, Mechanically vent; reassess in am Plan: Kimmie Weldon CRNA Aug 26, 2020 11:35
--- NOTE | 2020-08-26 11:56 | Infectious Diseases Prog Note ---
Assessment/Plan Assessment/Plan antibiotics : zosyn A 1. Right-sided pneumonia. 2. COVID-19 test is negative. 3. Urinary tract infection. 4. Hypertension. 5. Dementia. 6. Respiratory failure. 7. leucocytosis 8. renal failure P 1. continue iv zosyn 2. will follow up cultures 3. tracheostomy planned Subjective ROS Limited/Unobtainable: Yes Allergies: Coded Allergies: No Known Allergies (Unverified , 08/02/20) Objective Last 24 Hour Vital Signs Date Time Temp Pulse Resp B/P (MAP) Pulse Ox O2 Delivery O2 Flow Rate FiO2 08/26/20 11:00 70 25 125/57 (79) 100 08/26/20 10:47 Mechanical Ventilator 08/26/20 10:00 75 29 149/54 (85) 98 08/26/20 09:10 102 176/83 08/26/20 09:00 102 35 176/83 (114) 98 08/26/20 08:00 98.0 96 31 168/69 (102) 93 08/26/20 08:00 60 08/26/20 08:00 Mechanical Ventilator 08/26/20 07:57 89 08/26/20 07:13 89 29 60 08/26/20 07:00 94 30 156/59 (91) 97 08/26/20 06:00 69 20 122/55 (77) 99 08/26/20 05:00 88 29 147/67 (93) 99 08/26/20 04:00 Mechanical Ventilator 08/26/20 04:00 98.2 79 26 123/54 (77) 98 08/26/20 04:00 72 08/26/20 04:00 60 08/26/20 03:00 76 24 122/62 (82) 98 08/26/20 02:52 74 22 60 08/26/20 02:00 76 25 131/53 (79) 99 08/26/20 01:00 66 20 120/52 (74) 99 08/26/20 00:00 Mechanical Ventilator 08/26/20 00:00 82 08/26/20 00:00 98.1 78 26 140/53 (82) 97 08/25/20 23:00 75 27 131/58 (82) 90 08/25/20 22:39 74 22 60 08/25/20 22:00 72 22 124/53 (76) 99 08/25/20 21:00 60 08/25/20 21:00 61 20 109/52 (71) 99 08/25/20 20:00 97.9 63 21 113/51 (71) 99 08/25/20 20:00 60 08/25/20 20:00 68 08/25/20 20:00 Mechanical Ventilator 08/25/20 19:00 69 23 125/52 (76) 97 08/25/20 18:55 70 21 60 08/25/20 18:00 67 24 117/54 (75) 98 08/25/20 17:00 82 24 106/54 (71) 93 08/25/20 16:14 63 08/25/20 16:00 Mechanical Ventilator 08/25/20 16:00 60 08/25/20 16:00 97.7 76 26 146/62 (90) 95 08/25/20 16:00 Mechanical Ventilator 08/25/20 15:10 67 27 60 08/25/20 15:00 75 30 157/64 (95) 99 08/25/20 14:00 67 22 124/54 (77) 99 08/25/20 13:00 66 20 100/52 (68) 100 08/25/20 12:02 69 20 109/53 98 08/25/20 12:00 97.7 70 20 109/53 (71) 98 08/25/20 12:00 60 08/25/20 12:00 Mechanical Ventilator Height (Feet): 5 Height (Inches): 5.00 Weight (Pounds): 99 HEENT: other - intubated Respiratory/Chest: lungs clear Cardiovascular: normal rate, regular rhythm, no gallop/murmur Abdomen: soft, non tender Extremities: other - + edema Laboratory Tests Test 08/26/20 04:40 08/26/20 08:17 08/26/20 10:35 White Blood Count 11.3 K/UL (4.8-10.8) H Red Blood Count 3.09 M/UL (4.70-6.10) L Hemoglobin 9.3 G/DL (14.2-18.0) L Hematocrit 27.8 % (42.0-52.0) L Mean Corpuscular Volume 90 FL (80-99) Mean Corpuscular Hemoglobin 30.1 PG (27.0-31.0) Mean Corpuscular Hemoglobin Concent 33.5 G/DL (32.0-36.0) Red Cell Distribution Width 13.2 % (11.6-14.8) Platelet Count 162 K/UL (150-450) Mean Platelet Volume 9.5 FL (6.5-10.1) Neutrophils (%) (Auto) % (45.0-75.0) Lymphocytes (%) (Auto) % (20.0-45.0) Monocytes (%) (Auto) % (1.0-10.0) Eosinophils (%) (Auto) % (0.0-3.0) Basophils (%) (Auto) % (0.0-2.0) Differential Total Cells Counted 100 Neutrophils % (Manual) 92 % (45-75) H Lymphocytes % (Manual) 4 % (20-45) L Monocytes % (Manual) 4 % (1-10) Eosinophils % (Manual) 0 % (0-3) Basophils % (Manual) 0 % (0-2) Band Neutrophils 0 % (0-8) Platelet Estimate Adequate Platelet Morphology Normal Hypochromasia 1+ Sodium Level 145 MMOL/L (136-145) Potassium Level 3.4 MMOL/L (3.5-5.1) L Chloride Level 111 MMOL/L (98-107) H Carbon Dioxide Level 25 MMOL/L (21-32) Anion Gap 9 mmol/L (5-15) Blood Urea Nitrogen 46 mg/dL (7-18) H Creatinine 2.3 MG/DL (0.55-1.30) H Estimat Glomerular Filtration Rate 27.0 mL/min (>60) Glucose Level 134 MG/DL (74-106) H Calcium Level 7.8 MG/DL (8.5-10.1) L Magnesium Level 2.0 MG/DL (1.8-2.4) Total Bilirubin 0.3 MG/DL (0.2-1.0) Aspartate Amino Transf (AST/SGOT) 28 U/L (15-37) Alanine Aminotransferase (ALT/SGPT) 13 U/L (12-78) Alkaline Phosphatase 115 U/L (46-116) Total Protein 4.5 G/DL (6.4-8.2) L Albumin 0.8 G/DL (3.4-5.0) L Globulin 3.7 g/dL Albumin/Globulin Ratio 0.2 (1.0-2.7) L Arterial Blood pH 7.365 (7.350-7.450) Arterial Blood Partial Pressure CO2 44.1 mmHg (35.0-45.0) Arterial Blood Partial Pressure O2 67.1 mmHg (75.0-100.0) L Arterial Blood HCO3 24.6 mmol/L (22.0-26.0) Arterial Blood Oxygen Saturation 92.5 % (95-100) L Arterial Blood Base Excess -0.8 (-2-2) Emile Test Positive Prothrombin Time 11.7 SEC (9.30-11.50) H Prothromb Time International Ratio 1.1 (0.9-1.1) Activated Partial Thromboplast Time 27 SEC (23-33) Current Medications Medications (Trade) Dose Ordered Sig/Javon Route PRN Reason Start Time Stop Time Status Last Admin Dose Admin Acetaminophen (Tylenol) 650 mg Q4H PRN ORAL Mild Pain (Pain Scale 1-3) 08/03/20 01:15 09/02/20 01:14 08/23/20 08:21 Acetaminophen (Tylenol) 650 mg Q4H PRN RECTAL Mild Pain (Pain Scale 1-3) 08/03/20 01:15 09/02/20 01:14 08/04/20 18:32 Amiodarone HCl (Cordarone) 200 mg DAILY NG 08/17/20 09:00 11/15/20 08:59 08/26/20 09:10 Carbidopa/Levodopa (Sinemet 25/100) 1 tab THREE TIMES A DAY NG 08/09/20 18:00 09/02/20 08:59 08/26/20 09:10 Heparin Sodium (Porcine) (Heparin 5000 units/ml) 5,000 units EVERY 12 HOURS SUBQ 08/03/20 09:00 09/17/20 08:59 08/25/20 20:29 Hydralazine HCl (Apresoline) 25 mg Q6H PRN NG SBP above 160 08/11/20 22:30 11/05/20 00:29 08/12/20 15:09 Lorazepam (Ativan 2mg/ml 1ml) 1 mg Q4H PRN IV For Anxiety 08/25/20 06:00 09/01/20 05:59 08/25/20 11:32 Magnesium Hydroxide (Mom) 30 ml DAILYPRN PRN GT Constipation 08/12/20 09:00 09/11/20 08:59 Metoclopramide HCl (Reglan) 5 mg Q8H PRN IVP Nausea & Vomiting 08/15/20 13:00 09/14/20 12:59 Metoprolol Tartrate (Lopressor) 25 mg Q12HR NG 08/13/20 09:00 11/11/20 08:59 08/26/20 09:10 Pantoprazole (Protonix) 40 mg DAILY IVP 08/25/20 09:00 09/24/20 08:59 08/26/20 09:10 Piperacillin Sod/ Tazobactam Sod 3.375 gm/Sodium Chloride 110 ml @ 27.5 mls/hr Q12HR@0600,1800 IVPB 08/25/20 18:00 09/01/20 17:59 08/26/20 05:01 Sodium Chloride 1,000 ml @ 75 mls/hr [id number] IV 08/25/20 21:15 09/24/20 21:14 08/26/20 09:11 Wagner Christensen MD Aug 26, 2020 11:56
--- NOTE | 2020-08-26 12:54 | Pulmonology Progress Note ---
Subjective ROS Limited/Unobtainable: Yes Constitutional: Reports: fever, other - Tw=307.6 Allergies: Coded Allergies: No Known Allergies (Unverified , 08/02/20) All Systems: reviewed and negative except above Subjective care noted remains intubated diffuse infiltrates on CXR/ oxygenation noted poor LOC sedated Objective Last 24 Hour Vital Signs Date Time Temp Pulse Resp B/P (MAP) Pulse Ox O2 Delivery O2 Flow Rate FiO2 08/26/20 11:00 70 25 125/57 (79) 100 08/26/20 10:47 Mechanical Ventilator 08/26/20 10:00 75 29 149/54 (85) 98 08/26/20 09:10 102 176/83 08/26/20 09:00 102 35 176/83 (114) 98 08/26/20 08:00 98.0 96 31 168/69 (102) 93 08/26/20 08:00 60 08/26/20 08:00 Mechanical Ventilator 08/26/20 07:57 89 08/26/20 07:13 89 29 60 08/26/20 07:00 94 30 156/59 (91) 97 08/26/20 06:00 69 20 122/55 (77) 99 08/26/20 05:00 88 29 147/67 (93) 99 08/26/20 04:00 Mechanical Ventilator 08/26/20 04:00 98.2 79 26 123/54 (77) 98 08/26/20 04:00 72 08/26/20 04:00 60 08/26/20 03:00 76 24 122/62 (82) 98 08/26/20 02:52 74 22 60 08/26/20 02:00 76 25 131/53 (79) 99 08/26/20 01:00 66 20 120/52 (74) 99 08/26/20 00:00 Mechanical Ventilator 08/26/20 00:00 82 08/26/20 00:00 98.1 78 26 140/53 (82) 97 08/25/20 23:00 75 27 131/58 (82) 90 08/25/20 22:39 74 22 60 08/25/20 22:00 72 22 124/53 (76) 99 08/25/20 21:00 60 08/25/20 21:00 61 20 109/52 (71) 99 08/25/20 20:00 97.9 63 21 113/51 (71) 99 08/25/20 20:00 60 08/25/20 20:00 68 08/25/20 20:00 Mechanical Ventilator 08/25/20 19:00 69 23 125/52 (76) 97 08/25/20 18:55 70 21 60 08/25/20 18:00 67 24 117/54 (75) 98 08/25/20 17:00 82 24 106/54 (71) 93 08/25/20 16:14 63 08/25/20 16:00 Mechanical Ventilator 08/25/20 16:00 60 08/25/20 16:00 97.7 76 26 146/62 (90) 95 08/25/20 16:00 Mechanical Ventilator 08/25/20 15:10 67 27 60 08/25/20 15:00 75 30 157/64 (95) 99 08/25/20 14:00 67 22 124/54 (77) 99 08/25/20 13:00 66 20 100/52 (68) 100 Intake and Output 08/25/20 08/26/20 19:00 07:00 Intake Total 240.0 ml 952.5 ml Output Total 75 ml 360 ml Balance 165.0 ml 592.5 ml IV Total 110.0 ml 832.5 ml Tube Feeding 130 ml 120 ml Output Urine Total 75 ml 360 ml # Bowel Movements 1 1 Objective WDWN NAD reduced breath sounds bilaterally with scattered rhonchi (not improved) [id number] NABS nontender no CCE nonfocal on BIPAP poorly responsive Laboratory Tests 08/26/20 04:40: White Blood Count 11.3H, Red Blood Count 3.09L, Hemoglobin 9.3L, Hematocrit 27.8L, Mean Corpuscular Volume 90, Mean Corpuscular Hemoglobin 30.1, Mean Corpuscular Hemoglobin Concent 33.5, Red Cell Distribution Width 13.2, Platelet Count 162, Mean Platelet Volume 9.5, Neutrophils (%) (Auto) , Lymphocytes (%) (Auto) , Monocytes (%) (Auto) , Eosinophils (%) (Auto) , Basophils (%) (Auto) , Differential Total Cells Counted 100, Neutrophils % (Manual) 92H, Lymphocytes % (Manual) 4L, Monocytes % (Manual) 4, Eosinophils % (Manual) 0, Basophils % (Manual) 0, Band Neutrophils 0, Platelet Estimate Adequate, Platelet Morphology Normal, Hypochromasia 1+, Sodium Level 145, Potassium Level 3.4L, Chloride Level 111H, Carbon Dioxide Level 25, Anion Gap 9, Blood Urea Nitrogen 46H, Creatinine 2.3H, Estimat Glomerular Filtration Rate 27.0, Glucose Level 134H, Calcium Level 7.8L, Magnesium Level 2.0, Total Bilirubin 0.3, Aspartate Amino Transf (AST/SGOT) 28, Alanine Aminotransferase (ALT/SGPT) 13, Alkaline Phosphatase 115, Total Protein 4.5L, Albumin 0.8L, Globulin 3.7, Albumin/Globulin Ratio 0.2L 08/26/20 08:17: Arterial Blood pH 7.365, Arterial Blood Partial Pressure CO2 44.1, Arterial Blood Partial Pressure O2 67.1L, Arterial Blood HCO3 24.6, Arterial Blood Oxygen Saturation 92.5L, Arterial Blood Base Excess -0.8, Emile Test Positive 08/26/20 10:35: Prothrombin Time 11.7H, Prothromb Time International Ratio 1.1, Activated Partial Thromboplast Time 27 Current Medications Medications (Trade) Dose Ordered Sig/Javon Route PRN Reason Start Time Stop Time Status Last Admin Dose Admin Acetaminophen (Tylenol) 650 mg Q4H PRN ORAL Mild Pain (Pain Scale 1-3) 08/03/20 01:15 09/02/20 01:14 08/23/20 08:21 Acetaminophen (Tylenol) 650 mg Q4H PRN RECTAL Mild Pain (Pain Scale 1-3) 08/03/20 01:15 09/02/20 01:14 08/04/20 18:32 Amiodarone HCl (Cordarone) 200 mg DAILY NG 08/17/20 09:00 11/15/20 08:59 08/26/20 09:10 Carbidopa/Levodopa (Sinemet 25/100) 1 tab THREE TIMES A DAY NG 08/09/20 18:00 09/02/20 08:59 08/26/20 09:10 Heparin Sodium (Porcine) (Heparin 5000 units/ml) 5,000 units EVERY 12 HOURS SUBQ 08/03/20 09:00 09/17/20 08:59 08/25/20 20:29 Hydralazine HCl (Apresoline) 25 mg Q6H PRN NG SBP above 160 08/11/20 22:30 11/05/20 00:29 08/12/20 15:09 Lorazepam (Ativan 2mg/ml 1ml) 1 mg Q4H PRN IV For Anxiety 08/25/20 06:00 09/01/20 05:59 08/25/20 11:32 Magnesium Hydroxide (Mom) 30 ml DAILYPRN PRN GT Constipation 08/12/20 09:00 09/11/20 08:59 Metoclopramide HCl (Reglan) 5 mg Q8H PRN IVP Nausea & Vomiting 08/15/20 13:00 09/14/20 12:59 Metoprolol Tartrate (Lopressor) 25 mg Q12HR NG 08/13/20 09:00 11/11/20 08:59 08/26/20 09:10 Pantoprazole (Protonix) 40 mg DAILY IVP 08/25/20 09:00 09/24/20 08:59 08/26/20 09:10 Piperacillin Sod/ Tazobactam Sod 3.375 gm/Sodium Chloride 110 ml @ 27.5 mls/hr Q12HR@0600,1800 IVPB 08/25/20 18:00 09/01/20 17:59 08/26/20 05:01 Sodium Chloride 1,000 ml @ 75 mls/hr [id number] IV 08/25/20 21:15 09/24/20 21:14 08/26/20 09:11 Assessment/Plan Assessment/Plan ASSESSMENT: chronic encephalopathy, dementia, diffuse infiltrates, elevated BNP hypertension, recurrent falls, and urinary tract infection, hypoxemia, probable aspiration pneumonia. acute respiratory failure hypoxemic PLAN care noted taper fio2- as able respiratory care as is- monitor acid base vent support as is full for now monitor imaging for change suction off load proceed with trach and GT- planned Full code for now per family nutrition DVT prophylaxis skin care position change remains critical with poor prognosis medications/laboratory data/nursing notes/ICU care reviewed in detail note reviewed and edited care discussed with RN and RT ICU time spent >40 minutes Eriberto Valencia MD Aug 26, 2020 12:54
--- NOTE | 2020-08-26 13:57 | NUR ---
NURSE NOTES: Patient's grand daughter gave the telephone consent for tracheostomy via telephone. Dr. Loaiza notified.
--- NOTE | 2020-08-26 16:00 | NUR ---
CASE MANAGEMENT:REVIEW 08/26/20 SI: ACUTE RESPIRATORY FAILURE INTUBATED ~ SCHEDULED FOR TRACH 08/27/20 98.1 71 25 134/58 97% ON VENT SUPPORT W/80% FIO2 IS: IV ZOSYN Q8HRS IVF@75/HR AMIODARONE NG QD LOPRESSOR NG Q12 HEPARIN SQ Q12 : ICU STATUS PLAN: SCHEDULED FOR TRACH PEG???
--- NOTE | 2020-08-26 16:27 | Diagnostic Imaging Report ---
RENAL ULTRASOUND - COMPLETE INDICATION: Renal failure. TECHNIQUE: Multiplanar ultrasound examination of the abdomen with greyscale and doppler imaging. COMPARISON: None FINDINGS: Right kidney: Right kidney is normal in size and echogenicity. There is mild to moderate hydroureteronephrosis. Left kidney: Left kidney is normal in size and echogenicity. There is mild to moderate hydroureteronephrosis. Bladder: Urinary bladder is markedly distended with internal echoes and layering echogenic material. Overton catheter is not visualized. Prostate: Prostate is markedly enlarged, measuring 5.8 x 5.1 x 5.1 cm. Incidental note is made of bilateral pleural effusion and small volume ascites. Hepatic echotexture is coarsened. IMPRESSION: 1. Mild to moderate bilateral hydroureteronephrosis. 2. Markedly distended urinary bladder containing layering echogenic material which could represent debris or blood products. 3. Severe prostatomegaly, likely leading to chronic lateral obstruction. 4. Overton catheter is not visualized and may have been displaced. 5. Bilateral pleural effusions and small volume ascites. Treating nurse Iris informed of displaced Overton catheter at 948 on 08/26/2020
--- NOTE | 2020-08-26 16:59 | General Progress Note ---
Subjective ROS Limited/Unobtainable: Yes Constitutional: Reports: malaise, weakness HEENT: Reports: no symptoms Cardiovascular: Reports: no symptoms Respiratory: Reports: shortness of breath, sputum Gastrointestinal/Abdominal: Reports: difficulty swallowing Genitourinary: Reports: no symptoms Neurologic/Psychiatric: Reports: no symptoms Endocrine: Reports: no symptoms Hematologic/Lymphatic: Reports: no symptoms Allergies: Coded Allergies: No Known Allergies (Unverified , 08/02/20) All Systems: reviewed and negative except above Subjective no real change. remains on 60-80% fio2. intermittent desaturation due to bitting ETT. no fevers. Am labs pending. tolerating feeds. d/w grand dtr. family ok with proceeding with gt Objective Last 24 Hour Vital Signs Date Time Temp Pulse Resp B/P (MAP) Pulse Ox O2 Delivery O2 Flow Rate FiO2 08/26/20 16:00 98.0 82 26 131/49 (76) 100 08/26/20 16:00 Mechanical Ventilator 08/26/20 15:50 80 08/26/20 15:00 82 25 134/58 (83) 97 08/26/20 14:50 80 08/26/20 14:00 86 30 138/65 (89) 95 08/26/20 13:00 74 25 132/63 (86) 100 08/26/20 12:00 98.1 71 25 128/63 (84) 95 08/26/20 12:00 Mechanical Ventilator 08/26/20 12:00 60 08/26/20 11:49 75 08/26/20 11:00 70 25 125/57 (79) 100 08/26/20 10:47 Mechanical Ventilator 08/26/20 10:00 75 29 149/54 (85) 98 08/26/20 09:10 102 176/83 08/26/20 09:00 102 35 176/83 (114) 98 08/26/20 08:00 98.0 96 31 168/69 (102) 93 08/26/20 08:00 60 08/26/20 08:00 Mechanical Ventilator 08/26/20 07:57 89 08/26/20 07:13 89 29 60 08/26/20 07:00 94 30 156/59 (91) 97 08/26/20 06:00 69 20 122/55 (77) 99 08/26/20 05:00 88 29 147/67 (93) 99 08/26/20 04:00 Mechanical Ventilator 08/26/20 04:00 98.2 79 26 123/54 (77) 98 08/26/20 04:00 72 08/26/20 04:00 60 08/26/20 03:00 76 24 122/62 (82) 98 08/26/20 02:52 74 22 60 08/26/20 02:00 76 25 131/53 (79) 99 08/26/20 01:00 66 20 120/52 (74) 99 08/26/20 00:00 Mechanical Ventilator 08/26/20 00:00 82 08/26/20 00:00 98.1 78 26 140/53 (82) 97 08/25/20 23:00 75 27 131/58 (82) 90 08/25/20 22:39 74 22 60 08/25/20 22:00 72 22 124/53 (76) 99 08/25/20 21:00 60 08/25/20 21:00 61 20 109/52 (71) 99 08/25/20 20:00 97.9 63 21 113/51 (71) 99 08/25/20 20:00 60 08/25/20 20:00 68 08/25/20 20:00 Mechanical Ventilator 08/25/20 19:00 69 23 125/52 (76) 97 08/25/20 18:55 70 21 60 08/25/20 18:00 67 24 117/54 (75) 98 08/25/20 17:00 82 24 106/54 (71) 93 Intake and Output 08/25/20 08/26/20 18:59 06:59 Intake Total 257.5 ml 850.0 ml Output Total 75 ml 360 ml Balance 182.5 ml 490.0 ml IV Total 137.5 ml 730.0 ml Tube Feeding 120 ml 120 ml Output Urine Total 75 ml 360 ml # Bowel Movements 1 1 Laboratory Tests 08/26/20 04:40: White Blood Count 11.3H, Red Blood Count 3.09L, Hemoglobin 9.3L, Hematocrit 27.8L, Mean Corpuscular Volume 90, Mean Corpuscular Hemoglobin 30.1, Mean Corpuscular Hemoglobin Concent 33.5, Red Cell Distribution Width 13.2, Platelet Count 162, Mean Platelet Volume 9.5, Neutrophils (%) (Auto) , Lymphocytes (%) (Auto) , Monocytes (%) (Auto) , Eosinophils (%) (Auto) , Basophils (%) (Auto) , Differential Total Cells Counted 100, Neutrophils % (Manual) 92H, Lymphocytes % (Manual) 4L, Monocytes % (Manual) 4, Eosinophils % (Manual) 0, Basophils % (Manual) 0, Band Neutrophils 0, Platelet Estimate Adequate, Platelet Morphology Normal, Hypochromasia 1+, Sodium Level 145, Potassium Level 3.4L, Chloride Level 111H, Carbon Dioxide Level 25, Anion Gap 9, Blood Urea Nitrogen 46H, Creatinine 2.3H, Estimat Glomerular Filtration Rate 27.0, Glucose Level 134H, Calcium Level 7.8L, Magnesium Level 2.0, Total Bilirubin 0.3, Aspartate Amino Transf (AST/SGOT) 28, Alanine Aminotransferase (ALT/SGPT) 13, Alkaline Phosphatase 115, Total Protein 4.5L, Albumin 0.8L, Globulin 3.7, Albumin/Globulin Ratio 0.2L 08/26/20 08:17: Arterial Blood pH 7.365, Arterial Blood Partial Pressure CO2 44.1, Arterial Blood Partial Pressure O2 67.1L, Arterial Blood HCO3 24.6, Arterial Blood Oxygen Saturation 92.5L, Arterial Blood Base Excess -0.8, Emile Test Positive 08/26/20 10:35: Prothrombin Time 11.7H, Prothromb Time International Ratio 1.1, Activated Partial Thromboplast Time 27 Height (Feet): 5 Height (Inches): 5.00 Weight (Pounds): 99 Objective General Appearance: WD/WN, confused, thin. orally intubated EENT: normal ENT inspection Neck: non-tender, normal alignment, supple Cardiovascular: normal rate, regular rhythm Respiratory/Chest: chest wall non-tender, lungs clear, normal breath sounds, no respiratory distress, no accessory muscle use Abdomen: normal bowel sounds, non tender, soft, no organomegaly Edema: no edema noted Arm (L), no edema noted Arm (R) Assessment/Plan Problem List: (1) Pneumonia ICD Codes: J18.9 - Pneumonia, unspecified organism SNOMED: 744150444 (2) Hypoxia ICD Codes: R09.02 - Hypoxemia SNOMED: 273054548 (3) AMS (altered mental status) ICD Codes: R41.82 - Altered mental status, unspecified SNOMED: 445630432 (4) UTI (urinary tract infection) ICD Codes: N39.0 - Urinary tract infection, site not specified SNOMED: 45526497 (5) Sepsis ICD Codes: A41.9 - Sepsis, unspecified organism SNOMED: 02138132 Status: stable, not improved Assessment/Plan: vent support wean as able ngt feeds suctioning monitor labs/lytes replace as needed amiodarone per cards dvt/stress ulcer prophylaxis turn q2 ativan for agitation very poor prognosis family updated. proceed with trach and gt Chavez Gilmore MD Aug 26, 2020 16:59
--- NOTE | 2020-08-26 18:07 | Surgery Progress Note ---
Surgery Progress Note Subjective Additional Comments spoke with granddaughter who spoke with rest of the family consent obtained for trach plan tomorrow Objective Last 24 Hour Vital Signs Date Time Temp Pulse Resp B/P (MAP) Pulse Ox O2 Delivery O2 Flow Rate FiO2 08/26/20 17:00 77 25 119/69 (86) 100 08/26/20 16:00 98.0 82 26 131/49 (76) 100 08/26/20 16:00 Mechanical Ventilator 08/26/20 15:50 80 08/26/20 15:17 77 30 60 08/26/20 15:00 82 25 134/58 (83) 97 08/26/20 14:50 80 08/26/20 14:00 86 30 138/65 (89) 95 08/26/20 13:00 74 25 132/63 (86) 100 08/26/20 12:00 98.1 71 25 128/63 (84) 95 08/26/20 12:00 Mechanical Ventilator 08/26/20 12:00 60 08/26/20 11:49 75 08/26/20 11:28 73 26 60 08/26/20 11:00 70 25 125/57 (79) 100 08/26/20 10:47 Mechanical Ventilator 08/26/20 10:00 75 29 149/54 (85) 98 08/26/20 09:10 102 176/83 08/26/20 09:00 102 35 176/83 (114) 98 08/26/20 08:00 98.0 96 31 168/69 (102) 93 08/26/20 08:00 60 08/26/20 08:00 Mechanical Ventilator 08/26/20 07:57 89 08/26/20 07:13 89 29 60 08/26/20 07:00 94 30 156/59 (91) 97 08/26/20 06:00 69 20 122/55 (77) 99 08/26/20 05:00 88 29 147/67 (93) 99 08/26/20 04:00 Mechanical Ventilator 08/26/20 04:00 98.2 79 26 123/54 (77) 98 08/26/20 04:00 72 08/26/20 04:00 60 08/26/20 03:00 76 24 122/62 (82) 98 08/26/20 02:52 74 22 60 08/26/20 02:00 76 25 131/53 (79) 99 08/26/20 01:00 66 20 120/52 (74) 99 08/26/20 00:00 Mechanical Ventilator 08/26/20 00:00 82 08/26/20 00:00 98.1 78 26 140/53 (82) 97 08/25/20 23:00 75 27 131/58 (82) 90 08/25/20 22:39 74 22 60 08/25/20 22:00 72 22 124/53 (76) 99 08/25/20 21:00 60 08/25/20 21:00 61 20 109/52 (71) 99 08/25/20 20:00 97.9 63 21 113/51 (71) 99 08/25/20 20:00 60 08/25/20 20:00 68 08/25/20 20:00 Mechanical Ventilator 08/25/20 19:00 69 23 125/52 (76) 97 08/25/20 18:55 70 21 60 I&O Intake and Output 08/25/20 08/26/20 19:00 07:00 Intake Total 240.0 ml 952.5 ml Output Total 75 ml 360 ml Balance 165.0 ml 592.5 ml IV Total 110.0 ml 832.5 ml Tube Feeding 130 ml 120 ml Output Urine Total 75 ml 360 ml # Bowel Movements 1 1 Cardiovascular: RSR Respiratory: decreased breath sounds Abdomen: non-tender, present bowel sounds Extremities: no edema, no tenderness, no cyanosis Laboratory Tests Test 08/26/20 04:40 08/26/20 08:17 08/26/20 10:35 White Blood Count 11.3 K/UL (4.8-10.8) H Red Blood Count 3.09 M/UL (4.70-6.10) L Hemoglobin 9.3 G/DL (14.2-18.0) L Hematocrit 27.8 % (42.0-52.0) L Mean Corpuscular Volume 90 FL (80-99) Mean Corpuscular Hemoglobin 30.1 PG (27.0-31.0) Mean Corpuscular Hemoglobin Concent 33.5 G/DL (32.0-36.0) Red Cell Distribution Width 13.2 % (11.6-14.8) Platelet Count 162 K/UL (150-450) Mean Platelet Volume 9.5 FL (6.5-10.1) Neutrophils (%) (Auto) % (45.0-75.0) Lymphocytes (%) (Auto) % (20.0-45.0) Monocytes (%) (Auto) % (1.0-10.0) Eosinophils (%) (Auto) % (0.0-3.0) Basophils (%) (Auto) % (0.0-2.0) Differential Total Cells Counted 100 Neutrophils % (Manual) 92 % (45-75) H Lymphocytes % (Manual) 4 % (20-45) L Monocytes % (Manual) 4 % (1-10) Eosinophils % (Manual) 0 % (0-3) Basophils % (Manual) 0 % (0-2) Band Neutrophils 0 % (0-8) Platelet Estimate Adequate Platelet Morphology Normal Hypochromasia 1+ Sodium Level 145 MMOL/L (136-145) Potassium Level 3.4 MMOL/L (3.5-5.1) L Chloride Level 111 MMOL/L (98-107) H Carbon Dioxide Level 25 MMOL/L (21-32) Anion Gap 9 mmol/L (5-15) Blood Urea Nitrogen 46 mg/dL (7-18) H Creatinine 2.3 MG/DL (0.55-1.30) H Estimat Glomerular Filtration Rate 27.0 mL/min (>60) Glucose Level 134 MG/DL (74-106) H Calcium Level 7.8 MG/DL (8.5-10.1) L Magnesium Level 2.0 MG/DL (1.8-2.4) Total Bilirubin 0.3 MG/DL (0.2-1.0) Aspartate Amino Transf (AST/SGOT) 28 U/L (15-37) Alanine Aminotransferase (ALT/SGPT) 13 U/L (12-78) Alkaline Phosphatase 115 U/L (46-116) Total Protein 4.5 G/DL (6.4-8.2) L Albumin 0.8 G/DL (3.4-5.0) L Globulin 3.7 g/dL Albumin/Globulin Ratio 0.2 (1.0-2.7) L Arterial Blood pH 7.365 (7.350-7.450) Arterial Blood Partial Pressure CO2 44.1 mmHg (35.0-45.0) Arterial Blood Partial Pressure O2 67.1 mmHg (75.0-100.0) L Arterial Blood HCO3 24.6 mmol/L (22.0-26.0) Arterial Blood Oxygen Saturation 92.5 % (95-100) L Arterial Blood Base Excess -0.8 (-2-2) Emile Test Positive Prothrombin Time 11.7 SEC (9.30-11.50) H Prothromb Time International Ratio 1.1 (0.9-1.1) Activated Partial Thromboplast Time 27 SEC (23-33) Plan Problems: (1) Pneumonia (2) Hypoxia (3) Sepsis Assessment & Plan: respiratory insufficiency prolonged ventilatory support failed weaning trials weaning vent as much as possible anticipate prolong vent support trach indicated and recommended will obtain consent plan for trach as able to wean thank you cont weaning will follow with recs (4) UTI (urinary tract infection) (5) Pneumonia (6) AMS (altered mental status) Isaias Loaiza Aug 26, 2020 18:07
--- NOTE | 2020-08-26 19:00 | NUR ---
NURSE NOTES: Received patient from BLANE Lundberg. patient opens eyes but no tracking. Sinus rhythm on the monitor. intubated ET 7.5, 25cm at the lip. Vent AC 20 TV 500 FiO2 60% PEEP 5, tolerating well saturation 100%. R nare NGT and tube feeding running osmolite 1.5 @ 10ml/hr, tolerating well. bilateratal soft restraints on wrists. bed to lowest position and locked, call light within easy reach. Will continue plan of care.
--- NOTE | 2020-08-26 19:10 | NUR ---
NURSE HAND-OFF REPORT: Latest Vital Signs: Temperature 98.0 , Pulse 75 , B/P 121 /50 , Respiratory Rate 25 , O2 SAT 99 , Mechanical Ventilator, O2 Flow Rate 60.0 . Vital Sign Comment: EKG Rhythm: Sinus Rhythm Rhythm change?: N Latest José Fall Score: 75 Fall Risk: High Risk Safety Measures: Call light Within Reach, Bed Alarm Zone 1, Side Rails Side Rails x3, Bed position Low and Locked. Fall Precautions: Yellow Socks Yellow Gown Door Sign Patient Fall Education Report given to Sofi Zepeda RN.
--- NOTE | 2020-08-26 21:11 | Cardiology Progress Note ---
Subjective DATE OF SERVICE: Aug 26, 2020 Remains orally intubated with mechanical ventilation. O2 requirements remain at 60%. BP readings stabilizing. Monitor: sinus rhythm with occ atrial ectopy Family aware of need for trach and PEG, in anticipation of prolonged vent support for wean. Objective Last 24 Hour Vital Signs Date Time Temp Pulse Resp B/P (MAP) Pulse Ox O2 Delivery O2 Flow Rate FiO2 08/26/20 20:00 97.5 70 24 115/45 (68) 99 08/26/20 20:00 65 08/26/20 20:00 Mechanical Ventilator 08/26/20 20:00 80 08/26/20 19:00 75 25 121/50 (73) 99 08/26/20 18:40 80 27 80 08/26/20 18:00 78 25 121/55 (77) 100 08/26/20 17:00 77 25 119/69 (86) 100 08/26/20 16:00 98.0 82 26 131/49 (76) 100 08/26/20 16:00 Mechanical Ventilator 08/26/20 15:50 80 08/26/20 15:17 77 30 60 08/26/20 15:00 82 25 134/58 (83) 97 08/26/20 14:50 80 08/26/20 14:00 86 30 138/65 (89) 95 08/26/20 13:00 74 25 132/63 (86) 100 08/26/20 12:00 98.1 71 25 128/63 (84) 95 08/26/20 12:00 Mechanical Ventilator 08/26/20 12:00 60 08/26/20 11:49 75 08/26/20 11:28 73 26 60 08/26/20 11:00 70 25 125/57 (79) 100 08/26/20 10:47 Mechanical Ventilator 08/26/20 10:00 75 29 149/54 (85) 98 08/26/20 09:10 102 176/83 08/26/20 09:00 102 35 176/83 (114) 98 08/26/20 08:00 98.0 96 31 168/69 (102) 93 08/26/20 08:00 60 08/26/20 08:00 Mechanical Ventilator 08/26/20 07:57 89 08/26/20 07:13 89 29 60 08/26/20 07:00 94 30 156/59 (91) 97 08/26/20 06:00 69 20 122/55 (77) 99 08/26/20 05:00 88 29 147/67 (93) 99 08/26/20 04:00 Mechanical Ventilator 08/26/20 04:00 98.2 79 26 123/54 (77) 98 08/26/20 04:00 72 08/26/20 04:00 60 08/26/20 03:00 76 24 122/62 (82) 98 08/26/20 02:52 74 22 60 08/26/20 02:00 76 25 131/53 (79) 99 08/26/20 01:00 66 20 120/52 (74) 99 08/26/20 00:00 Mechanical Ventilator 08/26/20 00:00 82 08/26/20 00:00 98.1 78 26 140/53 (82) 97 08/25/20 23:00 75 27 131/58 (82) 90 08/25/20 22:39 74 22 60 08/25/20 22:00 72 22 124/53 (76) 99 08/25/20 21:00 60 08/25/20 21:00 61 20 109/52 (71) 99 ROS: unchanged from my evaluation of 08/02/20 HEENT: Orally intubated, Mechanically Ventilated, Thick Secretions ET Tube RHYTHM: NSR, PACs LUNGS: bilateral rhonchi CARDIAC: normal S1 and S2, irregularly irregular, systolic murmur - 1/6 systolic murmurat apex, rapid rate ABDOMEN: normal bowel sounds, non tender, soft, no organomegaly, other - NGTube EXTREMITIES: normal range of motion, trace edema Laboratory Tests Test 08/26/20 04:40 08/26/20 08:17 08/26/20 10:35 White Blood Count 11.3 K/UL (4.8-10.8) H Red Blood Count 3.09 M/UL (4.70-6.10) L Hemoglobin 9.3 G/DL (14.2-18.0) L Hematocrit 27.8 % (42.0-52.0) L Mean Corpuscular Volume 90 FL (80-99) Mean Corpuscular Hemoglobin 30.1 PG (27.0-31.0) Mean Corpuscular Hemoglobin Concent 33.5 G/DL (32.0-36.0) Red Cell Distribution Width 13.2 % (11.6-14.8) Platelet Count 162 K/UL (150-450) Mean Platelet Volume 9.5 FL (6.5-10.1) Neutrophils (%) (Auto) % (45.0-75.0) Lymphocytes (%) (Auto) % (20.0-45.0) Monocytes (%) (Auto) % (1.0-10.0) Eosinophils (%) (Auto) % (0.0-3.0) Basophils (%) (Auto) % (0.0-2.0) Differential Total Cells Counted 100 Neutrophils % (Manual) 92 % (45-75) H Lymphocytes % (Manual) 4 % (20-45) L Monocytes % (Manual) 4 % (1-10) Eosinophils % (Manual) 0 % (0-3) Basophils % (Manual) 0 % (0-2) Band Neutrophils 0 % (0-8) Platelet Estimate Adequate Platelet Morphology Normal Hypochromasia 1+ Sodium Level 145 MMOL/L (136-145) Potassium Level 3.4 MMOL/L (3.5-5.1) L Chloride Level 111 MMOL/L (98-107) H Carbon Dioxide Level 25 MMOL/L (21-32) Anion Gap 9 mmol/L (5-15) Blood Urea Nitrogen 46 mg/dL (7-18) H Creatinine 2.3 MG/DL (0.55-1.30) H Estimat Glomerular Filtration Rate 27.0 mL/min (>60) Glucose Level 134 MG/DL (74-106) H Calcium Level 7.8 MG/DL (8.5-10.1) L Magnesium Level 2.0 MG/DL (1.8-2.4) Total Bilirubin 0.3 MG/DL (0.2-1.0) Aspartate Amino Transf (AST/SGOT) 28 U/L (15-37) Alanine Aminotransferase (ALT/SGPT) 13 U/L (12-78) Alkaline Phosphatase 115 U/L (46-116) Total Protein 4.5 G/DL (6.4-8.2) L Albumin 0.8 G/DL (3.4-5.0) L Globulin 3.7 g/dL Albumin/Globulin Ratio 0.2 (1.0-2.7) L Arterial Blood pH 7.365 (7.350-7.450) Arterial Blood Partial Pressure CO2 44.1 mmHg (35.0-45.0) Arterial Blood Partial Pressure O2 67.1 mmHg (75.0-100.0) L Arterial Blood HCO3 24.6 mmol/L (22.0-26.0) Arterial Blood Oxygen Saturation 92.5 % (95-100) L Arterial Blood Base Excess -0.8 (-2-2) Emile Test Positive Prothrombin Time 11.7 SEC (9.30-11.50) H Prothromb Time International Ratio 1.1 (0.9-1.1) Activated Partial Thromboplast Time 27 SEC (23-33) Assessment/Plan Assessment/Plan Stable for trach and PEG from cardiovascular standpoint. Paroxysmal atrial fibrillation with RVR, now controlled on amiodarone Acute myocardial ischemia with elevated troponin Aspiration risk Sepsis Healthcare acquired PNA Complicated UTI with indwelling catheter Hyponatremia Severe protein calorie malnutrition Acute myocardial ischemia Respiratory failure with hypoxia and hypercarbia - now on mech ventilation Hypokalemia Leukocytosis improving Ac/chronic diastolic CHF Dehydration/hypernatremia corrected Acute renal failure CRITICAL & GUARDED Trach planned Empiric antibiotics Vent support NGTube feedings - with PEG planned DVT prophylaxis Continue amiodarone at current dose - dose adjustments prn Titrate anti-HTN regimen as needed. IVF hydration; monitor renal fxn Sarkis Herman MD Aug 26, 2020 21:11
--- NOTE | 2020-08-26 22:03 | NUR ---
NURSE NOTES: repositioned patient. vital signs stable. no acute distress noted
[2020-08-27] VITALS (24 sets, daily range): BP systolic 98–150; BP diastolic 35–74
--- NOTE | 2020-08-27 00:02 | NUR ---
NURSE NOTES: repositioned patient. vital signs stable. tube feeding off. patient is now NPO for procedure tomorrow
--- NOTE | 2020-08-27 02:37 | NUR ---
NURSE NOTES: suctioned patient. vital signs stable
--- NOTE | 2020-08-27 04:07 | NUR ---
NURSE NOTES: bed bath and oral care performed. vital signs stable
[2020-08-27] MEDS: Zosyn 3.375gm q12h **Extended infusion IVPB SCH ×4 (05:01→18:17)
[2020-08-27 05:51] LABS: HEMATOCRIT 27.3 % (42.0-52.0); HEMOGLOBIN 8.9 G/DL (14.2-18.0); MEAN CORPUSCULAR VOLUME 91 FL (80-99); PLATELET COUNT 130 K/UL (150-450); RED BLOOD COUNT 2.99 M/UL (4.70-6.10); RED CELL DISTRIBUTION WIDTH 13.5 % (11.6-14.8); WHITE BLOOD COUNT 10.7 K/UL (4.8-10.8)
--- NOTE | 2020-08-27 06:05 | NUR ---
NURSE NOTES: repositioned patient. vital signs stable.
--- NOTE | 2020-08-27 07:06 | NUR ---
NURSE HAND-OFF REPORT: Latest Vital Signs: Temperature 98.1 , Pulse 83 , B/P 143 /74 , Respiratory Rate 28 , O2 SAT 100 , Mechanical Ventilator, O2 Flow Rate 60.0 . Vital Sign Comment: stable EKG Rhythm: Sinus Rhythm Rhythm change?: William KURTZ Notified?: William Montoya MD Response: Message left await call Latest José Fall Score: 75 Fall Risk: High Risk Safety Measures: Call light Within Reach, Bed Alarm Zone 1, Side Rails Side Rails x3, Bed position Low and Locked. Fall Precautions: Yellow Socks Yellow Gown Door Sign Patient Fall Education Report given to Lyn Collado RN.
--- NOTE | 2020-08-27 07:07 | NUR ---
NURSE NOTES: Report received from BLANE Dorman. Patient is awake in bed. Afebrile. Opens eyes spontaneously. Unable to make eye contats. Oriented to name. Malay speaking. Mostly confused in bed. Continued bilateral soft wrist restraints. SR on potline monitor. ETT 7.5/25cm at lip line. AC 20, TV 500, FiO2 80%, P 5. O2 sat 95-97%. Right NGT in place and kept NPO due to tracheostomy scheduled later today. Overton in place draining light ana lilia urine to gravity. Bilateral upper and lower extremities pitting edema +2. IV to right FA G20 and left FA G20 patent and asymptomatic. NS is running at 75cc/hr. Bed in lowest position. Side rails up x3. Will resume of care.
[2020-08-27 07:20] LABS: ALBUMIN 0.8 G/DL (3.4-5.0); ALBUMIN/GLOBULIN RATIO 0.2 (1.0-2.7); BILIRUBIN,TOTAL 0.4 MG/DL (0.2-1.0); CALCIUM 7.6 MG/DL (8.5-10.1); POTASSIUM 3.1 MMOL/L (3.5-5.1)
[2020-08-27] MEDS ORDERED: Lidocaine 1%/ 10mg/ml/EPI 0.01mg/ml 20ml INJ ONE (07:34)
[2020-08-27] MEDS: Pantoprazole Inj IVP SCH (08:28)
[2020-08-27] MEDS: Levodopa/Carbidopa 25/100 tab NG SCH ×3 (08:30→18:17)
[2020-08-27] MEDS: Heparin 5000 units/ml inj SUBQ SCH ×2 (08:31→21:00)
[2020-08-27] MEDS: Amiodarone 200mg tab NG SCH (08:32)
--- NOTE | 2020-08-27 08:32 | Pulmonology Progress Note ---
Subjective ROS Limited/Unobtainable: Yes Constitutional: Reports: fever, other - Ic=960.6 Allergies: Coded Allergies: No Known Allergies (Unverified , 08/02/20) All Systems: reviewed and negative except above Subjective care noted remains intubated diffuse infiltrates on CXR/ oxygenation noted and higher needs reviewed poor LOC sedated Objective Last 24 Hour Vital Signs Date Time Temp Pulse Resp B/P (MAP) Pulse Ox O2 Delivery O2 Flow Rate FiO2 08/27/20 07:00 78 26 137/60 (85) 100 08/27/20 06:00 83 28 143/74 (97) 100 08/27/20 05:00 82 26 138/48 (78) 100 08/27/20 04:00 Mechanical Ventilator 08/27/20 04:00 98.1 85 29 150/59 (89) 99 08/27/20 04:00 80 08/27/20 04:00 78 08/27/20 03:00 86 25 80 08/27/20 03:00 87 28 146/50 (82) 99 08/27/20 02:00 82 24 124/47 (72) 99 08/27/20 01:00 76 26 139/59 (85) 100 08/27/20 00:00 80 08/27/20 00:00 98.0 78 27 139/52 (81) 99 08/27/20 00:00 74 08/27/20 00:00 Mechanical Ventilator 08/26/20 23:00 73 27 124/51 (75) 99 08/26/20 22:52 74 24 80 08/26/20 22:00 73 27 131/57 (81) 99 08/26/20 21:00 61 100/58 08/26/20 21:00 68 23 109/51 (70) 100 08/26/20 20:00 97.5 70 24 115/45 (68) 99 08/26/20 20:00 65 08/26/20 20:00 Mechanical Ventilator 08/26/20 20:00 80 08/26/20 19:00 75 25 121/50 (73) 99 08/26/20 18:40 80 27 80 08/26/20 18:00 78 25 121/55 (77) 100 08/26/20 17:00 77 25 119/69 (86) 100 08/26/20 16:00 98.0 82 26 131/49 (76) 100 08/26/20 16:00 Mechanical Ventilator 08/26/20 15:50 80 08/26/20 15:17 77 30 60 08/26/20 15:00 82 25 134/58 (83) 97 08/26/20 14:50 80 08/26/20 14:00 86 30 138/65 (89) 95 08/26/20 13:00 74 25 132/63 (86) 100 08/26/20 12:00 98.1 71 25 128/63 (84) 95 08/26/20 12:00 Mechanical Ventilator 08/26/20 12:00 60 08/26/20 11:49 75 08/26/20 11:28 73 26 60 08/26/20 11:00 70 25 125/57 (79) 100 08/26/20 10:47 Mechanical Ventilator 08/26/20 10:00 75 29 149/54 (85) 98 08/26/20 09:10 102 176/83 08/26/20 09:00 102 35 176/83 (114) 98 Intake and Output 08/26/20 08/27/20 19:00 07:00 Intake Total 1088.75 ml 1022.5 ml Output Total 920 ml 435 ml Balance 168.75 ml 587.5 ml IV Total 968.75 ml 982.5 ml Tube Feeding 120 ml 40 ml Output Urine Total 920 ml 435 ml Objective WDWN NAD reduced breath sounds bilaterally with scattered rhonchi (not improved) [id number] NABS nontender no CCE nonfocal on BIPAP poorly responsive Laboratory Tests 08/26/20 10:35: Prothrombin Time 11.7H, Prothromb Time International Ratio 1.1, Activated Partial Thromboplast Time 27 08/27/20 04:15: Prothrombin Time 11.5, Prothromb Time International Ratio 1.0, Activated Partial Thromboplast Time 27, White Blood Count 10.7, Red Blood Count 2.99L, Hemoglobin 8.9L, Hematocrit 27.3L, Mean Corpuscular Volume 91, Mean Corpuscular Hemoglobin 29.7, Mean Corpuscular Hemoglobin Concent 32.5, Red Cell Distribution Width 13.5, Platelet Count 130L, Mean Platelet Volume 10.3H, Neutrophils (%) (Auto) , Lymphocytes (%) (Auto) , Monocytes (%) (Auto) , Eosinophils (%) (Auto) , Basophils (%) (Auto) , Neutrophils % (Manual) [Pending], Lymphocytes % (Manual) [Pending], Platelet Estimate [Pending], Platelet Morphology [Pending], Sodium Level 146H, Potassium Level 3.1L, Chloride Level 113H, Carbon Dioxide Level 25, Anion Gap 8, Blood Urea Nitrogen 46H, Creatinine 2.0H, Estimat Glomerular Filtration Rate 31.7, Glucose Level 96, Calcium Level 7.6L, Magnesium Level 2.0, Total Bilirubin 0.4, Aspartate Amino Transf (AST/SGOT) 30, Alanine Am inotransferase (ALT/SGPT) 12, Alkaline Phosphatase 100, Total Protein 4.5L, Albumin 0.8L, Globulin 3.7, Albumin/Globulin Ratio 0.2L Current Medications Medications (Trade) Dose Ordered Sig/Javon Route PRN Reason Start Time Stop Time Status Last Admin Dose Admin Acetaminophen (Tylenol) 650 mg Q4H PRN ORAL Mild Pain (Pain Scale 1-3) 08/03/20 01:15 09/02/20 01:14 08/23/20 08:21 Acetaminophen (Tylenol) 650 mg Q4H PRN RECTAL Mild Pain (Pain Scale 1-3) 08/03/20 01:15 09/02/20 01:14 08/04/20 18:32 Amiodarone HCl (Cordarone) 200 mg DAILY NG 08/17/20 09:00 11/15/20 08:59 08/26/20 09:10 Carbidopa/Levodopa (Sinemet 25/100) 1 tab THREE TIMES A DAY NG 08/09/20 18:00 09/02/20 08:59 08/26/20 17:08 Heparin Sodium (Porcine) (Heparin 5000 units/ml) 5,000 units EVERY 12 HOURS SUBQ 08/03/20 09:00 09/17/20 08:59 08/25/20 20:29 Hydralazine HCl (Apresoline) 25 mg Q6H PRN NG SBP above 160 08/11/20 22:30 11/05/20 00:29 08/12/20 15:09 Lorazepam (Ativan 2mg/ml 1ml) 1 mg Q4H PRN IV For Anxiety 08/25/20 06:00 09/01/20 05:59 08/25/20 11:32 Magnesium Hydroxide (Mom) 30 ml DAILYPRN PRN GT Constipation 08/12/20 09:00 09/11/20 08:59 Metoclopramide HCl (Reglan) 5 mg Q8H PRN IVP Nausea & Vomiting 08/15/20 13:00 09/14/20 12:59 Metoprolol Tartrate (Lopressor) 25 mg Q12HR NG 08/13/20 09:00 11/11/20 08:59 08/26/20 09:10 Pantoprazole (Protonix) 40 mg DAILY IVP 08/25/20 09:00 09/24/20 08:59 08/26/20 09:10 Piperacillin Sod/ Tazobactam Sod 3.375 gm/Sodium Chloride 110 ml @ 27.5 mls/hr Q12HR@0600,1800 IVPB 08/25/20 18:00 09/01/20 17:59 08/27/20 05:01 Sodium Chloride 1,000 ml @ 75 mls/hr [id number] IV 08/25/20 21:15 09/24/20 21:14 08/26/20 22:58 Assessment/Plan Assessment/Plan ASSESSMENT: chronic encephalopathy, dementia, diffuse infiltrates, elevated BNP hypertension, recurrent falls, and urinary tract infection, hypoxemia, probable aspiration pneumonia. acute respiratory failure hypoxemic PLAN care noted taper fio2- as able respiratory care as is- monitor acid base vent support as is full for now monitor imaging for change suction off load proceed with trach and GT- planned for today Full code for now per family nutrition DVT prophylaxis skin care position change remains critical with poor prognosis medications/laboratory data/nursing notes/ICU care reviewed in detail note reviewed and edited care discussed with RN and RT ICU time spent >40 minutes Eriberto Valencia MD Aug 27, 2020 08:32
--- NOTE | 2020-08-27 08:44 | Infectious Diseases Prog Note ---
Assessment/Plan Assessment/Plan A: 1. Bilateral pneumonia. 2. COVID-19 test is negative. 3. Urinary tract infection. 4. Hypertension. 5. Dementia. 6. Respiratory failure intubated 7. Parkinson's disease PLAN: 1. continue IV Zosyn. Subjective ROS Limited/Unobtainable: Yes Respiratory: Reports: other - will have tracheostomy today Neurologic: Reports: confusion, other - on restraint Allergies: Coded Allergies: No Known Allergies (Unverified , 08/02/20) Objective Last 24 Hour Vital Signs Date Time Temp Pulse Resp B/P (MAP) Pulse Ox O2 Delivery O2 Flow Rate FiO2 08/27/20 08:30 87 126/44 08/27/20 07:00 78 26 137/60 (85) 100 08/27/20 06:00 83 28 143/74 (97) 100 08/27/20 05:00 82 26 138/48 (78) 100 08/27/20 04:00 Mechanical Ventilator 08/27/20 04:00 98.1 85 29 150/59 (89) 99 08/27/20 04:00 80 08/27/20 04:00 78 08/27/20 03:00 86 25 80 08/27/20 03:00 87 28 146/50 (82) 99 08/27/20 02:00 82 24 124/47 (72) 99 08/27/20 01:00 76 26 139/59 (85) 100 08/27/20 00:00 80 08/27/20 00:00 98.0 78 27 139/52 (81) 99 08/27/20 00:00 74 08/27/20 00:00 Mechanical Ventilator 08/26/20 23:00 73 27 124/51 (75) 99 08/26/20 22:52 74 24 80 08/26/20 22:00 73 27 131/57 (81) 99 08/26/20 21:00 61 100/58 08/26/20 21:00 68 23 109/51 (70) 100 08/26/20 20:00 97.5 70 24 115/45 (68) 99 08/26/20 20:00 65 08/26/20 20:00 Mechanical Ventilator 08/26/20 20:00 80 08/26/20 19:00 75 25 121/50 (73) 99 12/9/20 18:40 80 27 80 08/26/20 18:00 78 25 121/55 (77) 100 08/26/20 17:00 77 25 119/69 (86) 100 08/26/20 16:00 98.0 82 26 131/49 (76) 100 08/26/20 16:00 Mechanical Ventilator 08/26/20 15:50 80 08/26/20 15:17 77 30 60 08/26/20 15:00 82 25 134/58 (83) 97 08/26/20 14:50 80 08/26/20 14:00 86 30 138/65 (89) 95 08/26/20 13:00 74 25 132/63 (86) 100 08/26/20 12:00 98.1 71 25 128/63 (84) 95 08/26/20 12:00 Mechanical Ventilator 08/26/20 12:00 60 08/26/20 11:49 75 08/26/20 11:28 73 26 60 08/26/20 11:00 70 25 125/57 (79) 100 08/26/20 10:47 Mechanical Ventilator 08/26/20 10:00 75 29 149/54 (85) 98 08/26/20 09:10 102 176/83 08/26/20 09:00 102 35 176/83 (114) 98 Height (Feet): 5 Height (Inches): 5.00 Weight (Pounds): 136 HEENT: other - orally intubated Respiratory/Chest: decreased breath sounds, other - on ventilator Cardiovascular: normal rate Abdomen: soft, non tender, other - NG tube Extremities: other - edema Neurologic/Psychiatric: aphasia Laboratory Tests Test 08/26/20 10:35 08/27/20 04:15 Prothrombin Time 11.7 SEC (9.30-11.50) H 11.5 SEC (9.30-11.50) Prothromb Time International Ratio 1.1 (0.9-1.1) 1.0 (0.9-1.1) Activated Partial Thromboplast Time 27 SEC (23-33) 27 SEC (23-33) White Blood Count 10.7 K/UL (4.8-10.8) Red Blood Count 2.99 M/UL (4.70-6.10) L Hemoglobin 8.9 G/DL (14.2-18.0) L Hematocrit 27.3 % (42.0-52.0) L Mean Corpuscular Volume 91 FL (80-99) Mean Corpuscular Hemoglobin 29.7 PG (27.0-31.0) Mean Corpuscular Hemoglobin Concent 32.5 G/DL (32.0-36.0) Red Cell Distribution Width 13.5 % (11.6-14.8) Platelet Count 130 K/UL (150-450) L Mean Platelet Volume 10.3 FL (6.5-10.1) H Neutrophils (%) (Auto) % (45.0-75.0) Lymphocytes (%) (Auto) % (20.0-45.0) Monocytes (%) (Auto) % (1.0-10.0) Eosinophils (%) (Auto) % (0.0-3.0) Basophils (%) (Auto) % (0.0-2.0) Neutrophils % (Manual) Pending Lymphocytes % (Manual) Pending Platelet Estimate Pending Platelet Morphology Pending Sodium Level 146 MMOL/L (136-145) H Potassium Level 3.1 MMOL/L (3.5-5.1) L Chloride Level 113 MMOL/L (98-107) H Carbon Dioxide Level 25 MMOL/L (21-32) Anion Gap 8 mmol/L (5-15) Blood Urea Nitrogen 46 mg/dL (7-18) H Creatinine 2.0 MG/DL (0.55-1.30) H Estimat Glomerular Filtration Rate 31.7 mL/min (>60) Glucose Level 96 MG/DL (74-106) Calcium Level 7.6 MG/DL (8.5-10.1) L Magnesium Level 2.0 MG/DL (1.8-2.4) Total Bilirubin 0.4 MG/DL (0.2-1.0) Aspartate Amino Transf (AST/SGOT) 30 U/L (15-37) Alanine Aminotransferase (ALT/SGPT) 12 U/L (12-78) Alkaline Phosphatase 100 U/L (46-116) Total Protein 4.5 G/DL (6.4-8.2) L Albumin 0.8 G/DL (3.4-5.0) L Globulin 3.7 g/dL Albumin/Globulin Ratio 0.2 (1.0-2.7) L Current Medications Medications (Trade) Dose Ordered Sig/Javon Route PRN Reason Start Time Stop Time Status Last Admin Dose Admin Acetaminophen (Tylenol) 650 mg Q4H PRN ORAL Mild Pain (Pain Scale 1-3) 08/03/20 01:15 09/02/20 01:14 08/23/20 08:21 Acetaminophen (Tylenol) 650 mg Q4H PRN RECTAL Mild Pain (Pain Scale 1-3) 08/03/20 01:15 09/02/20 01:14 08/04/20 18:32 Amiodarone HCl (Cordarone) 200 mg DAILY NG 08/17/20 09:00 11/15/20 08:59 08/27/20 08:32 Carbidopa/Levodopa (Sinemet 25/100) 1 tab THREE TIMES A DAY NG 08/09/20 18:00 09/02/20 08:59 08/27/20 08:30 Heparin Sodium (Porcine) (Heparin 5000 units/ml) 5,000 units EVERY 12 HOURS SUBQ 08/03/20 09:00 09/17/20 08:59 08/25/20 20:29 Hydralazine HCl (Apresoline) 25 mg Q6H PRN NG SBP above 160 08/11/20 22:30 11/05/20 00:29 08/12/20 15:09 Lorazepam (Ativan 2mg/ml 1ml) 1 mg Q4H PRN IV For Anxiety 08/25/20 06:00 09/01/20 05:59 08/25/20 11:32 Magnesium Hydroxide (Mom) 30 ml DAILYPRN PRN GT Constipation 08/12/20 09:00 09/11/20 08:59 Metoclopramide HCl (Reglan) 5 mg Q8H PRN IVP Nausea & Vomiting 08/15/20 13:00 09/14/20 12:59 Metoprolol Tartrate (Lopressor) 25 mg Q12HR NG 08/13/20 09:00 11/11/20 08:59 08/27/20 08:30 Pantoprazole (Protonix) 40 mg DAILY IVP 08/25/20 09:00 09/24/20 08:59 08/27/20 08:28 Piperacillin Sod/ Tazobactam Sod 3.375 gm/Sodium Chloride 110 ml @ 27.5 mls/hr Q12HR@0600,1800 IVPB 08/25/20 18:00 09/01/20 17:59 08/27/20 05:01 Sodium Chloride 1,000 ml @ 75 mls/hr [id number] IV 08/25/20 21:15 09/24/20 21:14 08/26/20 22:58 Baldev Luo MD Aug 27, 2020 08:44
--- NOTE | 2020-08-27 08:54 | NUR ---
NURSE NOTES: Dr Jane here to see the patient. Updated him with patient's current condition. Order for K placement received, noted, and carried out.
--- NOTE | 2020-08-27 11:17 | NUR ---
RD ASSESSMENT & RECOMMENDATIONS SEE CARE ACTIVITY FOR COMPLETE ASSESSMENT DAILY ESTIMATED NEEDS: Needs based on Underweight, crirtical care/ 45kg 30-35 kcals/kg 1193-8807 total kcals 1.2-2 g protein/kg 54-90 g total protein 25-30 mL/kg 8397-5673 total fluid mLs NUTRITION DIAGNOSIS: * Increased kcal/prot needs R/T underweight status, pulmonary status as evidenced by pt @ 73% IBW, w/ BMI of 16.5, low BMI per guidelines, h/o COPD. * Swallowing difficulty R/T dysphagia, respiratory status as evidenced by s/p failed video swallow study, w/ rec for NPO, s/p NGT insertion for NGT feeds, s/p oral intubation (08/19), now NPO, pending trach placement. CURRENT TF:NPO for trach placement ENTERAL NUTRITION RECOMMENDATIONS: Jevity 1.2 @ 50ml/hr x 24 hrs to provide 1200ml, 1440kcal, 67g prot, 968ml free water * As medically appropriate (NPO for trach placement at this time) initiate Jevity 1.2 @ 20ml/hr x 6hrs * Advance 10ml q 4-6 hrs as tolerated to goal rate. * HOB over 30 degrees/ water flush per MD ADDITIONAL RECOMMENDATIONS: * Wt@ SNF on [id number] (48kg) fluctuating daily wts, rec recalibrated bedscale wt (wts now 60's kg) * Monitor lytes daily, replete as needed * PT ON BIPAP, TF AT LOW RATE-> Now intubated-> pending Trach * Monitor BGs, need for NISS and carb controlled TF .
[2020-08-27] MEDS ORDERED: Rocuronium Bromide 50mg/5ml Inj IV ONE (11:56)
--- NOTE | 2020-08-27 11:58 | NUR ---
NURSE NOTES: Transferred patient to OR for tracheostomy placement.
[2020-08-27] MEDS ORDERED: NS Irrig 1000ml ONE (12:00)
[2020-08-27] MEDS ORDERED: Sterile Water Irrig 1000ml IRRIG ONE (12:00)
--- NOTE | 2020-08-27 12:17 | Immediate Post-Op Evaluation ---
Immediate Post-Op Evalulation Immediate Post-Op Evalulation Procedure: Trachostomy Date of Evaluation: Aug 27, 2020 Time of Evaluation: 12:46 IV Fluids: 10 NS Blood Products: 0 Estimated Blood Loss: 10 Urinary Output: 0 Blood Pressure Systolic: 154 Blood Pressure Diastolic: 54 Pulse Rate: 74 Respiratory Rate: 20 - Mech Vent O2 Sat by Pulse Oximetry: 98 Temperature (Fahrenheit): 98.3 Pain Score (1-10): 0 Nausea: No Vomiting: No Complications 0 Patient Status: no response, patent, ventilated, none Hydration Status: adequate Drug: on Alex Goldstein MD Aug 27, 2020 12:17
--- NOTE | 2020-08-27 12:18 | 48 Hour Post Anesthesia Eval ---
Post Anesthesia Evaluation Procedure: Trachostomy Date of Evaluation: Aug 27, 2020 Time of Evaluation: 14:52 Blood Pressure Systolic: 165 0: 56 Pulse Rate: 78 Respiratory Rate: 20 - MechVent Temperature (Fahrenheit): 98.4 O2 Sat by Pulse Oximetry: 100 Airway: patent Nausea: No Vomiting: No Pain Intensity: 0 Hydration Status: adequate Cardiopulmonary Status: Stable Mental Status/LOC: patient returned to baseline Follow-up Care/Observations: 0 Post-Anesthesia Complications: 0 Follow-up care needed: N/A Alex Goldstein MD Aug 27, 2020 12:18
--- NOTE | 2020-08-27 12:40 | NUR ---
NURSE NOTES: Patient came back from OR. Trach size Citlaly 8.0 with same vent setting. No bleeding noted from trach site. Patient is still sedated from the procedure. VSS.
--- NOTE | 2020-08-27 13:36 | Surgery Progress Note ---
Surgery Progress Note Subjective Additional Comments trach today Objective Last 24 Hour Vital Signs Date Time Temp Pulse Resp B/P (MAP) Pulse Ox O2 Delivery O2 Flow Rate FiO2 08/27/20 12:40 60 08/27/20 12:40 Mechanical Ventilator 08/27/20 12:30 78 20 100 08/27/20 12:29 74 20 98 08/27/20 12:28 97.7 77 16 110/35 (60) 95 08/27/20 12:00 Mechanical Ventilator 08/27/20 11:00 73 26 123/48 (73) 94 08/27/20 10:00 60 08/27/20 10:00 68 26 117/63 (81) 100 08/27/20 09:00 66 20 117/46 (69) 100 08/27/20 08:30 87 126/44 08/27/20 08:00 80 08/27/20 08:00 97.9 78 25 126/44 (71) 99 08/27/20 08:00 Mechanical Ventilator 08/27/20 07:00 78 26 137/60 (85) 100 08/27/20 06:00 83 28 143/74 (97) 100 08/27/20 05:00 82 26 138/48 (78) 100 08/27/20 04:00 Mechanical Ventilator 08/27/20 04:00 98.1 85 29 150/59 (89) 99 08/27/20 04:00 80 08/27/20 04:00 78 08/27/20 03:00 86 25 80 08/27/20 03:00 87 28 146/50 (82) 99 08/27/20 02:00 82 24 124/47 (72) 99 08/27/20 01:00 76 26 139/59 (85) 100 08/27/20 00:00 80 08/27/20 00:00 98.0 78 27 139/52 (81) 99 08/27/20 00:00 74 08/27/20 00:00 Mechanical Ventilator 08/26/20 23:00 73 27 124/51 (75) 99 08/26/20 22:52 74 24 80 08/26/20 22:00 73 27 131/57 (81) 99 08/26/20 21:00 61 100/58 08/26/20 21:00 68 23 109/51 (70) 100 08/26/20 20:00 97.5 70 24 115/45 (68) 99 08/26/20 20:00 65 08/26/20 20:00 Mechanical Ventilator 08/26/20 20:00 80 08/26/20 19:00 75 25 121/50 (73) 99 08/26/20 18:40 80 27 80 08/26/20 18:00 78 25 121/55 (77) 100 08/26/20 17:00 77 25 119/69 (86) 100 08/26/20 16:00 98.0 82 26 131/49 (76) 100 08/26/20 16:00 Mechanical Ventilator 08/26/20 15:50 80 08/26/20 15:17 77 30 60 08/26/20 15:00 82 25 134/58 (83) 97 08/26/20 14:50 80 08/26/20 14:00 86 30 138/65 (89) 95 I&O Intake and Output 08/26/20 08/27/20 19:00 07:00 Intake Total 1088.75 ml 1022.5 ml Output Total 920 ml 435 ml Balance 168.75 ml 587.5 ml IV Total 968.75 ml 982.5 ml Tube Feeding 120 ml 40 ml Output Urine Total 920 ml 435 ml Dressing: other Wound: other Cardiovascular: RSR Respiratory: decreased breath sounds Abdomen: soft, non-tender, present bowel sounds Extremities: no tenderness, no cyanosis Laboratory Tests Test 08/27/20 04:15 08/27/20 07:21 White Blood Count 10.7 K/UL (4.8-10.8) Red Blood Count 2.99 M/UL (4.70-6.10) L Hemoglobin 8.9 G/DL (14.2-18.0) L Hematocrit 27.3 % (42.0-52.0) L Mean Corpuscular Volume 91 FL (80-99) Mean Corpuscular Hemoglobin 29.7 PG (27.0-31.0) Mean Corpuscular Hemoglobin Concent 32.5 G/DL (32.0-36.0) Red Cell Distribution Width 13.5 % (11.6-14.8) Platelet Count 130 K/UL (150-450) L Mean Platelet Volume 10.3 FL (6.5-10.1) H Neutrophils (%) (Auto) % (45.0-75.0) Lymphocytes (%) (Auto) % (20.0-45.0) Monocytes (%) (Auto) % (1.0-10.0) Eosinophils (%) (Auto) % (0.0-3.0) Basophils (%) (Auto) % (0.0-2.0) Differential Total Cells Counted 100 Neutrophils % (Manual) 94 % (45-75) H Lymphocytes % (Manual) 3 % (20-45) L Monocytes % (Manual) 3 % (1-10) Eosinophils % (Manual) 0 % (0-3) Basophils % (Manual) 0 % (0-2) Band Neutrophils 0 % (0-8) Platelet Estimate Decreased L Platelet Morphology Normal Hypochromasia 1+ Anisocytosis 1+ Prothrombin Time 11.5 SEC (9.30-11.50) Prothromb Time International Ratio 1.0 (0.9-1.1) Activated Partial Thromboplast Time 27 SEC (23-33) Sodium Level 146 MMOL/L (136-145) H Potassium Level 3.1 MMOL/L (3.5-5.1) L Chloride Level 113 MMOL/L (98-107) H Carbon Dioxide Level 25 MMOL/L (21-32) Anion Gap 8 mmol/L (5-15) Blood Urea Nitrogen 46 mg/dL (7-18) H Creatinine 2.0 MG/DL (0.55-1.30) H Estimat Glomerular Filtration Rate 31.7 mL/min (>60) Glucose Level 96 MG/DL (74-106) Calcium Level 7.6 MG/DL (8.5-10.1) L Magnesium Level 2.0 MG/DL (1.8-2.4) Total Bilirubin 0.4 MG/DL (0.2-1.0) Aspartate Amino Transf (AST/SGOT) 30 U/L (15-37) Alanine Aminotransferase (ALT/SGPT) 12 U/L (12-78) Alkaline Phosphatase 100 U/L (46-116) Total Protein 4.5 G/DL (6.4-8.2) L Albumin 0.8 G/DL (3.4-5.0) L Globulin 3.7 g/dL Albumin/Globulin Ratio 0.2 (1.0-2.7) L Arterial Blood pH 7.308 (7.350-7.450) Arterial Blood Partial Pressure CO2 49.9 mmHg (35.0-45.0) H Arterial Blood Partial Pressure O2 98.3 mmHg (75.0-100.0) Arterial Blood HCO3 24.4 mmol/L (22.0-26.0) Arterial Blood Oxygen Saturation 98.3 % (95-100) Arterial Blood Base Excess -2.0 (-2-2) Emile Test Positive Plan Problems: (1) Pneumonia (2) Hypoxia (3) Sepsis Assessment & Plan: respiratory insufficiency prolonged ventilatory support failed weaning trials weaning vent as much as possible anticipate prolong vent support trach indicated and recommended will obtain consent plan for trach as able to wean thank you cont weaning will follow with recs s/p trach (4) UTI (urinary tract infection) (5) Pneumonia (6) AMS (altered mental status) Isaias Loaiza Aug 27, 2020 13:36
--- NOTE | 2020-08-27 13:36 | Brief Operative Note ---
Immediate Post Operative Note Operative Note Pre-op Diagnosis: ventilatory insufficiency requiring prolonged ventilatory support Procedure: trach Post-op Diagnosis: same as pre-op Surgeon: pravin Anesthesiologist: ismael Anesthesia: general, local Specimen: none Complications: none Condition: stable Fluids: see Estimated Blood Loss: minimal Drains: none Implant(s) used?: No Isaias Loaiza Aug 27, 2020 13:36
--- NOTE | 2020-08-27 14:30 | NUR ---
NURSE NOTES: Small amount of thick bloody secretion from mouth noted. Oral care done and suctioned as needed. No blood from trach site. Patient is sleeping in bed. Will continue to monitor.
--- NOTE | 2020-08-27 15:30 | Operative Note - Dictated ---
DATE OF OPERATION: 08/27/2020 PREOPERATIVE DIAGNOSIS: Respiratory insufficiency requiring prolonged ventilatory support. POSTOPERATIVE DIAGNOSIS: Respiratory insufficiency requiring prolonged ventilatory support. OPERATION PERFORMED: Tracheostomy. ATTENDING SURGEON: Isaias Loaiza MD. AERODYNAMICIST: None. ANESTHESIOLOGIST: Alex Goldstein MD. ANESTHESIA: General VACCINE MANAGER plus local. ESTIMATED BLOOD LOSS: Minimal. IV FLUIDS: Please see anesthesia records. COMPLICATIONS: None. DRAINS: None. COUNTS: Sponge and needle count correct x2. WOUND CLASSIFICATION: Class 3. IMPLANTS: An 8-Slovenian Shiley tracheostomy. INDICATIONS FOR PROCEDURE: This is an 89-year-old male currently intensive care unit of the [facility], intubated for a prolonged period time, requiring ventilatory support, difficult weaning and is unsafe for extubation. I had a long discussion with the patient's family and guided through the patient's granddaughter who expressed only recently a few weeks ago he was out at the park walking with them and feeling well. He has since become sick, now he is intubated, hypoxic with possibility of potential for recovery. Given this, consent was given for tracheostomy placement, which was indicated and recommended and medically necessary. Risks, benefits, and alternatives were discussed, consent obtained. The patient is scheduled for 08/27/2020. OPERATIVE NOTE: The patient was taken to the operating room and placed on the operating room table in supine position with bilateral arms down. All bony prominences were well padded. SCDs placed. Shoulder roll placed. General anesthesia induced and the patient intubated. Preoperative time-out was taken identifying the patient, procedure, operative site, and surgical staff. Neck was prepped and draped in standard surgical fashion. Anatomical landmarks identified. Small incision was made 2 cm above the sternal notch. Incision carried down to the subcutaneous tissue, platysma down the median raphe. Median raphe was divided and mobilized laterally. First, second, and third tracheal rings identified and clearly dissected out. A window was made between first and second tracheal rings and ET tube identified. ET tube was slowly withdrawn by the anesthesiologist and an 8-Slovenian Shiley tracheostomy inserted without complication. Balloon inflated and the patient ventilated with good end-tidal CO2. Trach sutured in place. Dressings applied. Trach tie applied. The patient tolerated the procedure well and was taken directly to the intensive care unit in stable condition. Isaias Loaiza M.D. DR: ALDO JOB#: [id number] CC:
--- NOTE | 2020-08-27 15:43 | General Progress Note ---
Subjective ROS Limited/Unobtainable: No Constitutional: Reports: malaise, weakness HEENT: Reports: no symptoms Cardiovascular: Reports: no symptoms Respiratory: Reports: no symptoms Gastrointestinal/Abdominal: Reports: no symptoms Genitourinary: Reports: no symptoms Neurologic/Psychiatric: Reports: pre-existing deficit Endocrine: Reports: no symptoms Hematologic/Lymphatic: Reports: no symptoms Allergies: Coded Allergies: No Known Allergies (Unverified , 08/02/20) All Systems: reviewed and negative except above Subjective no real change. remains on 80% fio2. opens eyes. no fevers. Am labs pending. tolerating feeds. d/w grand dtr. family ok with proceeding with gt Objective Last 24 Hour Vital Signs Date Time Temp Pulse Resp B/P (MAP) Pulse Ox O2 Delivery O2 Flow Rate FiO2 08/27/20 15:00 81 20 127/52 (77) 95 08/27/20 14:00 80 20 131/52 (78) 93 08/27/20 13:00 71 20 114/41 (65) 93 08/27/20 12:40 60 08/27/20 12:40 Mechanical Ventilator 08/27/20 12:30 78 20 100 08/27/20 12:29 74 20 98 08/27/20 12:28 97.7 77 16 110/35 (60) 95 08/27/20 12:00 Mechanical Ventilator 08/27/20 11:14 74 08/27/20 11:00 73 26 123/48 (73) 94 08/27/20 10:00 60 08/27/20 10:00 68 26 117/63 (81) 100 08/27/20 09:00 66 20 117/46 (69) 100 08/27/20 08:30 87 126/44 08/27/20 08:00 80 08/27/20 08:00 97.9 78 25 126/44 (71) 99 08/27/20 08:00 Mechanical Ventilator 08/27/20 07:35 84 08/27/20 07:00 78 26 137/60 (85) 100 08/27/20 06:00 83 28 143/74 (97) 100 08/27/20 05:00 82 26 138/48 (78) 100 08/27/20 04:00 Mechanical Ventilator 08/27/20 04:00 98.1 85 29 150/59 (89) 99 08/27/20 04:00 80 08/27/20 04:00 78 08/27/20 03:00 86 25 80 08/27/20 03:00 87 28 146/50 (82) 99 08/27/20 02:00 82 24 124/47 (72) 99 08/27/20 01:00 76 26 139/59 (85) 100 08/27/20 00:00 80 08/27/20 00:00 98.0 78 27 139/52 (81) 99 08/27/20 00:00 74 08/27/20 00:00 Mechanical Ventilator 08/26/20 23:00 73 27 124/51 (75) 99 08/26/20 22:52 74 24 80 08/26/20 22:00 73 27 131/57 (81) 99 08/26/20 21:00 61 100/58 08/26/20 21:00 68 23 109/51 (70) 100 08/26/20 20:00 97.5 70 24 115/45 (68) 99 08/26/20 20:00 65 08/26/20 20:00 Mechanical Ventilator 08/26/20 20:00 80 08/26/20 19:00 75 25 121/50 (73) 99 08/26/20 18:40 80 27 80 08/26/20 18:00 78 25 121/55 (77) 100 08/26/20 17:00 77 25 119/69 (86) 100 08/26/20 16:00 98.0 82 26 131/49 (76) 100 08/26/20 16:00 Mechanical Ventilator 08/26/20 15:50 80 Intake and Output 08/26/20 08/27/20 19:00 07:00 Intake Total 1088.75 ml 1022.5 ml Output Total 920 ml 435 ml Balance 168.75 ml 587.5 ml IV Total 968.75 ml 982.5 ml Tube Feeding 120 ml 40 ml Output Urine Total 920 ml 435 ml Laboratory Tests 08/27/20 04:15: White Blood Count 10.7, Red Blood Count 2.99L, Hemoglobin 8.9L, Hematocrit 27.3L , Mean Corpuscular Volume 91, Mean Corpuscular Hemoglobin 29.7, Mean Corpuscular Hemoglobin Concent 32.5, Red Cell Distribution Width 13.5, Platelet Count 130L, Mean Platelet Volume 10.3H, Neutrophils (%) (Auto) , Lymphocytes (%) (Auto) , Monocytes (%) (Auto) , Eosinophils (%) (Auto) , Basophils (%) (Auto) , Differential Total Cells Counted 100, Neutrophils % (Manual) 94H, Lymphocytes % (Manual) 3L, Monocytes % (Manual) 3, Eosinophils % (Manual) 0, Basophils % (Manual) 0, Band Neutrophils 0, Platelet Estimate DecreasedL, Platelet Morphology Normal, Hypochromasia 1+, Anisocytosis 1+, Prothrombin Time 11.5, Prothromb Time International Ratio 1.0, Activated Partial Thromboplast Time 27, Sodium Level 146H, Potassium Level 3.1L, Chloride Level 113H, Carbon Dioxide Level 25, Anion Gap 8, Blood Urea Nitrogen 46H, Creatinine 2.0H, Estimat Glomerular Filtration Rate 31.7, Glucose Level 96, Calcium Level 7.6L, Magnesium Level 2.0, Total Bilirubin 0.4, Aspartate Amino Transf (AST/SGOT) 30, Alanine Aminotransferase (ALT/SGPT) 12, Alkaline Phosphatase 100, Total Protein 4.5L, Albumin 0.8L, Globulin 3.7, Albumin/Globulin Ratio 0.2L 08/27/20 07:21: Arterial Blood pH 7.308L, Arterial Blood Partial Pressure CO2 49.9H, Arterial Blood Partial Pressure O2 98.3, Arterial Blood HCO3 24.4, Arterial Blood Oxygen Saturation 98.3, Arterial Blood Base Excess -2.0, Emile Test Positive Height (Feet): 5 Height (Inches): 5.00 Weight (Pounds): 136 Objective General Appearance: WD/WN, confused, thin. orally intubated EENT: normal ENT inspection Neck: non-tender, normal alignment, supple Cardiovascular: normal rate, regular rhythm Respiratory/Chest: chest wall non-tender, lungs clear, normal breath sounds, no respiratory distress, no accessory muscle use Abdomen: normal bowel sounds, non tender, soft, no organomegaly Edema: no edema noted Arm (L), no edema noted Arm (R) Assessment/Plan Problem List: (1) Pneumonia ICD Codes: J18.9 - Pneumonia, unspecified organism SNOMED: 406385866 (2) Hypoxia ICD Codes: R09.02 - Hypoxemia SNOMED: 074025768 (3) AMS (altered mental status) ICD Codes: R41.82 - Altered mental status, unspecified SNOMED: 515324392 (4) UTI (urinary tract infection) ICD Codes: N39.0 - Urinary tract infection, site not specified SNOMED: 74059509 (5) Sepsis ICD Codes: A41.9 - Sepsis, unspecified organism SNOMED: 80519433 Status: stable, not improved Assessment/Plan: vent support trach later today ngt feeds suctioning monitor labs/lytes replace as needed amiodarone per cards dvt/stress ulcer prophylaxis turn q2 ativan for agitation very poor prognosis- d/w family. they are aware proceed with rissa and gt Chavez Gilmore MD Aug 27, 2020 15:43
--- NOTE | 2020-08-27 17:00 | NUR ---
NURSE NOTES: Cleaned patient for 1 small amount of greenish brown soft BM. Turned and repositioned patient. VSS. Will continue to monitor.
--- NOTE | 2020-08-27 19:18 | NUR ---
NURSE HAND-OFF REPORT: Latest Vital Signs: Temperature 97.8 , Pulse 84 , B/P 139 /60 , Respiratory Rate 21 , O2 SAT 98 , Mechanical Ventilator, O2 Flow Rate 60.0 . Vital Sign Comment: EKG Rhythm: Sinus Rhythm Rhythm change?: N MD Notified?: MD Response: Latest José Fall Score: 85 Fall Risk: High Risk Safety Measures: Call light Within Reach, Bed Alarm Zone 1, Side Rails Side Rails x3, Bed position Low and Locked. Fall Precautions: Yellow Socks Yellow Gown Door Sign Patient Fall Education Report given to Neel Feliciano RN.
--- NOTE | 2020-08-27 19:19 | NUR ---
NURSE NOTES: received pt from Lyn Collado RN., pt is sleeping and resting on the bed, abusable, and opens eyes without tracking. library monitor shows SR at this time. pt has trach S8, AC20 TV 500 TV 60% P5 and O2 sat is at 97% without SOB. NGT right nares osmolite 1.5 is running at 10cc/hr. foely cath is noted draining well with gravity, straw color noted. skin alternatio noted. general edema noted. dressing sites are intact, clean, and patent. no active bleeding noted at this time. call light within reach. bed at the lowest position, alarmed, and locked. will continue to monitor pt with plan of care.
--- NOTE | 2020-08-27 19:20 | NUR ---
NURSE NOTES: Bilateral Soft wrist restrain noted, bilateral pulse noted, skin intact, and no ecchymosis.
--- NOTE | 2020-08-27 19:43 | NUR ---
NURSE NOTES: inserted new left FA 20G and right FA 20G IV. pt tolerated well without difficulties. IV sites are intact, clean, and patent.
--- NOTE | 2020-08-27 21:43 | NUR ---
NURSE NOTES: pt is resting on the bed, oral care given. no SOB noted. call light within reach.
--- NOTE | 2020-08-27 22:38 | Cardiology Progress Note ---
Subjective DATE OF SERVICE: Aug 27, 2020 Remains with mechanical ventilation; now s/p trach. O2 requirements remain high. BP readings stabilizing. Monitor: sinus rhythm with occ atrial ectopy Objective Last 24 Hour Vital Signs Date Time Temp Pulse Resp B/P (MAP) Pulse Ox O2 Delivery O2 Flow Rate FiO2 08/27/20 22:00 68 20 124/65 (84) 98 08/27/20 21:00 65 20 131/61 (84) 97 08/27/20 20:28 85 142/70 08/27/20 20:00 Mechanical Ventilator 08/27/20 20:00 60 08/27/20 20:00 97.9 85 20 142/70 (94) 97 08/27/20 19:58 87 20 60 08/27/20 19:23 83 08/27/20 19:00 84 21 139/60 (86) 98 08/27/20 18:00 75 20 134/54 (80) 99 08/27/20 17:00 97.8 67 20 98/47 (64) 95 08/27/20 16:00 70 20 120/52 (74) 94 08/27/20 16:00 Mechanical Ventilator 08/27/20 16:00 60 08/27/20 15:08 79 26 80 08/27/20 15:06 81 08/27/20 15:00 81 20 127/52 (77) 95 08/27/20 14:00 80 20 131/52 (78) 93 08/27/20 13:00 71 20 114/41 (65) 93 08/27/20 12:40 60 08/27/20 12:40 Mechanical Ventilator 08/27/20 12:30 78 20 100 08/27/20 12:29 74 20 98 08/27/20 12:28 97.7 77 16 110/35 (60) 95 08/27/20 12:00 Mechanical Ventilator 08/27/20 11:14 74 08/27/20 11:06 72 27 80 08/27/20 11:00 73 26 123/48 (73) 94 08/27/20 10:00 60 08/27/20 10:00 68 26 117/63 (81) 100 08/27/20 09:00 66 20 117/46 (69) 100 08/27/20 08:30 87 126/44 08/27/20 08:00 80 08/27/20 08:00 97.9 78 25 126/44 (71) 99 08/27/20 08:00 Mechanical Ventilator 08/27/20 07:35 84 08/27/20 07:00 78 26 137/60 (85) 100 08/27/20 06:55 76 20 80 08/27/20 06:00 83 28 143/74 (97) 100 08/27/20 05:00 82 26 138/48 (78) 100 08/27/20 04:00 Mechanical Ventilator 08/27/20 04:00 98.1 85 29 150/59 (89) 99 08/27/20 04:00 80 08/27/20 04:00 78 08/27/20 03:00 86 25 80 08/27/20 03:00 87 28 146/50 (82) 99 08/27/20 02:00 82 24 124/47 (72) 99 08/27/20 01:00 76 26 139/59 (85) 100 08/27/20 00:00 80 08/27/20 00:00 98.0 78 27 139/52 (81) 99 08/27/20 00:00 74 08/27/20 00:00 Mechanical Ventilator 08/26/20 23:00 73 27 124/51 (75) 99 08/26/20 22:52 74 24 80 ROS: unchanged from my evaluation of 08/02/20 HEENT: Mechanically Ventilated, Thin Trach secretions RHYTHM: NSR, PACs LUNGS: bilateral rhonchi CARDIAC: normal S1 and S2, irregularly irregular, systolic murmur - 1/6 systolic murmurat apex, rapid rate ABDOMEN: normal bowel sounds, non tender, soft, no organomegaly, other - NGTube EXTREMITIES: normal range of motion, trace edema Laboratory Tests Test 08/27/20 04:15 08/27/20 07:21 White Blood Count 10.7 K/UL (4.8-10.8) Red Blood Count 2.99 M/UL (4.70-6.10) L Hemoglobin 8.9 G/DL (14.2-18.0) L Hematocrit 27.3 % (42.0-52.0) L Mean Corpuscular Volume 91 FL (80-99) Mean Corpuscular Hemoglobin 29.7 PG (27.0-31.0) Mean Corpuscular Hemoglobin Concent 32.5 G/DL (32.0-36.0) Red Cell Distribution Width 13.5 % (11.6-14.8) Platelet Count 130 K/UL (150-450) L Mean Platelet Volume 10.3 FL (6.5-10.1) H Neutrophils (%) (Auto) % (45.0-75.0) Lymphocytes (%) (Auto) % (20.0-45.0) Monocytes (%) (Auto) % (1.0-10.0) Eosinophils (%) (Auto) % (0.0-3.0) Basophils (%) (Auto) % (0.0-2.0) Differential Total Cells Counted 100 Neutrophils % (Manual) 94 % (45-75) H Lymphocytes % (Manual) 3 % (20-45) L Monocytes % (Manual) 3 % (1-10) Eosinophils % (Manual) 0 % (0-3) Basophils % (Manual) 0 % (0-2) Band Neutrophils 0 % (0-8) Platelet Estimate Decreased L Platelet Morphology Normal Hypochromasia 1+ Anisocytosis 1+ Prothrombin Time 11.5 SEC (9.30-11.50) Prothromb Time International Ratio 1.0 (0.9-1.1) Activated Partial Thromboplast Time 27 SEC (23-33) Sodium Level 146 MMOL/L (136-145) H Potassium Level 3.1 MMOL/L (3.5-5.1) L Chloride Level 113 MMOL/L (98-107) H Carbon Dioxide Level 25 MMOL/L (21-32) Anion Gap 8 mmol/L (5-15) Blood Urea Nitrogen 46 mg/dL (7-18) H Creatinine 2.0 MG/DL (0.55-1.30) H Estimat Glomerular Filtration Rate 31.7 mL/min (>60) Glucose Level 96 MG/DL (74-106) Calcium Level 7.6 MG/DL (8.5-10.1) L Magnesium Level 2.0 MG/DL (1.8-2.4) Total Bilirubin 0.4 MG/DL (0.2-1.0) Aspartate Amino Transf (AST/SGOT) 30 U/L (15-37) Alanine Aminotransferase (ALT/SGPT) 12 U/L (12-78) Alkaline Phosphatase 100 U/L (46-116) Total Protein 4.5 G/DL (6.4-8.2) L Albumin 0.8 G/DL (3.4-5.0) L Globulin 3.7 g/dL Albumin/Globulin Ratio 0.2 (1.0-2.7) L Arterial Blood pH 7.308 (7.350-7.450) Arterial Blood Partial Pressure CO2 49.9 mmHg (35.0-45.0) H Arterial Blood Partial Pressure O2 98.3 mmHg (75.0-100.0) Arterial Blood HCO3 24.4 mmol/L (22.0-26.0) Arterial Blood Oxygen Saturation 98.3 % (95-100) Arterial Blood Base Excess -2.0 (-2-2) Emile Test Positive Assessment/Plan Assessment/Plan Status post uncomplicated trach. Paroxysmal atrial fibrillation with RVR, now controlled on amiodarone Acute myocardial ischemia with elevated troponin Aspiration risk Sepsis Healthcare acquired PNA Complicated UTI with indwelling catheter Hyponatremia Severe protein calorie malnutrition Acute myocardial ischemia Respiratory failure with hypoxia and hypercarbia - now on mech ventilation Hypokalemia Leukocytosis improving Ac/chronic diastolic CHF Dehydration/hypernatremia Hypokalemia Acute renal failure CRITICAL & GUARDED Trach care Antimicrobials per ID Vent support NGTube feedings - with PEG planned DVT prophylaxis Continue amiodarone at current dose - dose adjustments prn Titrate anti-HTN regimen as needed. Hypotonic IVF hydration; replace potassium and check magnesium Sarkis Herman MD Aug 27, 2020 22:38
--- NOTE | 2020-08-27 22:47 | NUR ---
NURSE NOTES: no residual feeding noted. pt is sleeping and resting on the bed at this time. removed restrain because pt is calm at this time. call light within reach. no SOB noted. will continue to monitor pt.
[2020-08-28] VITALS (24 sets, daily range): BP systolic 94–152; BP diastolic 44–76
--- NOTE | 2020-08-28 00:30 | NUR ---
NURSE NOTES: repositioned pt Q 2hrs. no residual on NGT noted. oral suctioned. Cleaned pt, changed pillow, cover sheet, gown, chucks. call light within reach. brown BM noted. will continue to monitor pt.
--- NOTE | 2020-08-28 02:30 | NUR ---
NURSE NOTES: pt is awake, opens eyes, resting on the bed. repositioned Q 2hrs. call light within reach.
--- NOTE | 2020-08-28 02:48 | NUR ---
NURSE NOTES: pt is agitated, cannot be assure by talk and touch. call light within reach.
--- NOTE | 2020-08-28 04:40 | NUR ---
NURSE NOTES: repositioned pt Q 2hrs. no SOB noted. call light within reach. will continue to monitor pt.
--- NOTE | 2020-08-28 05:56 | NUR ---
NURSE NOTES: no residual noted from G-Tbube site. bilateral soft wrist restrain intact, pulse noted. repositioned Q 2hr.s
[2020-08-28] MEDS: Zosyn 3.375gm q12h **Extended infusion IVPB SCH ×2 (06:05)
--- NOTE | 2020-08-28 06:40 | NUR ---
NURSE NOTES: Dr. Gilmore at the bedside. And made aware of pt left arm is whipping. lab is still pending.
--- NOTE | 2020-08-28 06:47 | General Progress Note ---
Subjective ROS Limited/Unobtainable: No Constitutional: Reports: malaise, weakness HEENT: Reports: no symptoms Cardiovascular: Reports: no symptoms Respiratory: Reports: cough, shortness of breath, sputum Gastrointestinal/Abdominal: Reports: difficulty swallowing Genitourinary: Reports: no symptoms Neurologic/Psychiatric: Reports: no symptoms Endocrine: Reports: no symptoms Hematologic/Lymphatic: Reports: anemia Allergies: Coded Allergies: VANCOMYCIN (Verified Allergy, Severe, hive, 08/27/20) All Systems: reviewed and negative except above Subjective s/p uncomplicated trach. awake. does not tack or follow commands. weeping from left arm. am labs pending. Objective Last 24 Hour Vital Signs Date Time Temp Pulse Resp B/P (MAP) Pulse Ox O2 Delivery O2 Flow Rate FiO2 08/28/20 06:00 84 22 133/67 (89) 99 08/28/20 05:00 87 22 149/57 (87) 98 08/28/20 04:00 60 08/28/20 04:00 98.0 86 21 145/62 (89) 97 08/28/20 04:00 Mechanical Ventilator 08/28/20 03:33 83 21 60 08/28/20 03:01 87 08/28/20 03:00 90 24 147/65 (92) 97 08/28/20 02:00 82 20 144/59 (87) 98 08/28/20 01:00 74 20 119/44 (69) 96 08/28/20 00:00 98.2 83 22 152/60 (90) 97 08/28/20 00:00 Mechanical Ventilator 08/27/20 23:11 73 20 60 08/27/20 23:00 76 20 134/60 (84) 98 08/27/20 22:59 76 08/27/20 22:00 68 20 124/65 (84) 98 08/27/20 21:00 65 20 131/61 (84) 97 08/27/20 20:28 85 142/70 08/27/20 20:00 Mechanical Ventilator 08/27/20 20:00 60 08/27/20 20:00 97.9 85 20 142/70 (94) 97 08/27/20 19:58 87 20 60 08/27/20 19:23 83 08/27/20 19:00 84 21 139/60 (86) 98 08/27/20 18:00 75 20 134/54 (80) 99 08/27/20 17:00 97.8 67 20 98/47 (64) 95 08/27/20 16:00 70 20 120/52 (74) 94 08/27/20 16:00 Mechanical Ventilator 08/27/20 16:00 60 08/27/20 15:08 79 26 80 08/27/20 15:06 81 08/27/20 15:00 81 20 127/52 (77) 95 08/27/20 14:00 80 20 131/52 (78) 93 08/27/20 13:00 71 20 114/41 (65) 93 08/27/20 12:40 60 08/27/20 12:40 Mechanical Ventilator 08/27/20 12:30 78 20 100 08/27/20 12:29 74 20 98 08/27/20 12:28 97.7 77 16 110/35 (60) 95 08/27/20 12:00 Mechanical Ventilator 08/27/20 11:14 74 08/27/20 11:06 72 27 80 08/27/20 11:00 73 26 123/48 (73) 94 08/27/20 10:00 60 08/27/20 10:00 68 26 117/63 (81) 100 08/27/20 09:00 66 20 117/46 (69) 100 08/27/20 08:30 87 126/44 08/27/20 08:00 80 08/27/20 08:00 97.9 78 25 126/44 (71) 99 08/27/20 08:00 Mechanical Ventilator 08/27/20 07:35 84 08/27/20 07:00 78 26 137/60 (85) 100 08/27/20 06:55 76 20 80 Intake and Output 08/27/20 08/28/20 19:00 07:00 Intake Total 840.0 ml 270.0 ml Output Total 330 ml 330 ml Balance 510.0 ml -60.0 ml Free Water 50 ml IV Total 730.0 ml 110.0 ml Tube Feeding 10 ml 110 ml Other 100 ml Output Urine Total 330 ml 330 ml # Bowel Movements 2 1 Laboratory Tests 08/27/20 07:21: Arterial Blood pH 7.308L, Arterial Blood Partial Pressure CO2 49.9H, Arterial Blood Partial Pressure O2 98.3, Arterial Blood HCO3 24.4, Arterial Blood Oxygen Saturation 98.3, Arterial Blood Base Excess -2.0, Emile Test Positive 08/28/20 05:30: White Blood Count [Pending], Red Blood Count [Pending], Hemoglobin [Pending], Hematocrit [Pending], Mean Corpuscular Volume [Pending], Mean Corpuscular Hemoglobin [Pending], Mean Corpuscular Hemoglobin Concent [Pending], Red Cell D istribution Width [Pending], Platelet Count [Pending], Mean Platelet Volume [Pending], Neutrophils (%) (Auto) [Pending], Lymphocytes (%) (Auto) [Pending], Monocytes (%) (Auto) [Pending], Eosinophils (%) (Auto) [Pending], Basophils (%) (Auto) [Pending], Sodium Level [Pending], Potassium Level [Pending], Chloride Level [Pending], Carbon Dioxide Level [Pending], Blood Urea Nitrogen [Pending], Creatinine [Pending], Estimat Glomerular Filtration Rate [Pending], Glucose Level [Pending], Calcium Level [Pending], Magnesium Level [Pending], Pro-B-Type Natriuretic Peptide [Pending] Height (Feet): 5 Height (Inches): 5.00 Weight (Pounds): 136 Objective General Appearance: WD/WN, confused, thin. orally intubated EENT: normal ENT inspection Neck: non-tender, normal alignment, supple Cardiovascular: normal rate, regular rhythm Respiratory/Chest: chest wall non-tender, lungs clear, normal breath sounds, no respiratory distress, no accessory muscle use Abdomen: normal bowel sounds, non tender, soft, no organomegaly Edema: no edema noted Arm (L), no edema noted Arm (R) Assessment/Plan Problem List: (1) Pneumonia ICD Codes: J18.9 - Pneumonia, unspecified organism SNOMED: 621437723 (2) Hypoxia ICD Codes: R09.02 - Hypoxemia SNOMED: 455594668 (3) AMS (altered mental status) ICD Codes: R41.82 - Altered mental status, unspecified SNOMED: 192130806 (4) UTI (urinary tract infection) ICD Codes: N39.0 - Urinary tract infection, site not specified SNOMED: 15138841 (5) Sepsis ICD Codes: A41.9 - Sepsis, unspecified organism SNOMED: 23157368 Status: stable, not improved Assessment/Plan: vent support trach care US left UE ngt feeds suctioning monitor labs/lytes replace as needed amiodarone per cards dvt/stress ulcer prophylaxis turn q2 ativan for agitation very poor prognosis- d/w family. they are aware Chavez Gilmore MD Aug 28, 2020 06:47
[2020-08-28 06:50] LABS: HEMATOCRIT 27.5 % (42.0-52.0); HEMOGLOBIN 9.5 G/DL (14.2-18.0); MEAN CORPUSCULAR VOLUME 87 FL (80-99); PLATELET COUNT 137 K/UL (150-450); RED BLOOD COUNT 3.17 M/UL (4.70-6.10); RED CELL DISTRIBUTION WIDTH 14.6 % (11.6-14.8); WHITE BLOOD COUNT 13.4 K/UL (4.8-10.8)
--- NOTE | 2020-08-28 07:06 | NUR ---
NURSE HAND-OFF REPORT: Latest Vital Signs: Temperature 98.0 , Pulse 84 , B/P 133 /67 , Respiratory Rate 22 , O2 SAT 99 , Mechanical Ventilator, O2 Flow Rate 60.0 . Vital Sign Comment: [stable] EKG Rhythm: Sinus Rhythm Rhythm change?: N Notified?: N Response: Latest José Fall Score: 85 Fall Risk: High Risk Safety Measures: Call light Within Reach, Bed Alarm Zone 1, Side Rails Side Rails x3, Bed position Low and Locked. Fall Precautions: Yellow Socks Yellow Gown Door Sign Patient Fall Education Report given to [Lyn Collado RN].
--- NOTE | 2020-08-28 07:07 | NUR ---
NURSE NOTES: Report received from Jodie Shaikh RN. Patient is sleeping in bed. Afebrile. Opens eyes spontaneously. Unable to make eye contact. Tam[place]ight speaking. Confused in bed, trying to reach tracheostomy. Continued bilateral soft wrist restraints. SR on radiation monitor. Trach to vent. No bleeding from trach site. S 8.0. AC 20, TV 500, FiO2 80%, P 5. O2 sat 100%. Right NGT in place, receiving Osmolite 1.5 at 10cc/hr. Overton in place draining to gravity. Bilateral upper and lower extremities pitting edema +2. IV to right FA G20 and left FA G20 patent and asymptomatic. Bed in lowest position. Side rails up x3. Will resume of care.
[2020-08-28 07:12] LABS: CALCIUM 7.9 MG/DL (8.5-10.1); POTASSIUM 3.5 MMOL/L (3.5-5.1)
--- NOTE | 2020-08-28 08:36 | NUR ---
NURSE NOTES: Order to transfer patient to [facility] from Dr Gilmore received, noted, and notified charge nurse.
[2020-08-28] MEDS: Heparin 5000 units/ml inj SUBQ SCH ×2 (09:00→20:41)
[2020-08-28] MEDS: Amiodarone 200mg tab NG SCH (09:00)
[2020-08-28] MEDS: Pantoprazole Inj IVP SCH (09:00)
[2020-08-28] MEDS: Levodopa/Carbidopa 25/100 tab NG SCH ×3 (09:00→17:43)
--- NOTE | 2020-08-28 09:13 | NUR ---
RD ASSESSMENT & RECOMMENDATIONS SEE CARE ACTIVITY FOR COMPLETE ASSESSMENT DAILY ESTIMATED NEEDS: Needs based on Underweight, crirtical care/ 45kg 30-35 kcals/kg 9145-6449 total kcals 1.2-2 g protein/kg 54-90 g total protein 25-30 mL/kg 4776-2880 total fluid mLs NUTRITION DIAGNOSIS: * Increased kcal/prot needs R/T underweight status, pulmonary status as evidenced by pt @ 73% IBW, w/ BMI of 16.5, low BMI per guidelines, h/o COPD. * Swallowing difficulty R/T dysphagia, respiratory status as evidenced by s/p failed video swallow study, w/ rec for NPO, s/p NGT insertion for NGT feeds, s/p oral intubation (08/19), now s/p trach placement (08/27), remains on NGT feeds. CURRENT TF:Osmolite 1.5 @ 10ml/hr x 24 hrs ENTERAL NUTRITION RECOMMENDATIONS: Osmolite 1.5 @ 40ml/hr x 24 hrs to provide 960ml, 1440kcal, 60g prot, 732ml free water * Increase goal rate to 40ml/hr x 24 hrs to meet 100% est kcal/prot needs * Advance 10ml q 4-6 hrs as tolerated to goal rate. * HOB over 30 degrees/ water flush 100ml q 6hrs ADDITIONAL RECOMMENDATIONS: * Wt@ SN[facility] on 07/2972=411nsh (48kg) fluctuating daily wts, rec recalibrated bedscale wt (wts now 60's kg) * Monitor lytes daily, replete as needed * Monitor BGs, need for NISS and carb controlled TF . .
--- NOTE | 2020-08-28 10:30 | NUR ---
NURSE NOTES: Turned and repositioned patient. Afebrile. Elevated bilateral arms due to swelling and weeping from left arm. Will continue to monitor.
--- NOTE | 2020-08-28 10:40 | NUR ---
CASE MANAGEMENT:REVIEW 08/28/20 SI: RESPIRATORY FAILURE POD #1 S/P TRACHEOSTOMY PLACEMENT 98.0 86 21 145/62 97% ON VENT SUPPORT W/60% FIO2 WBC+13.4 H/H-9.5/27.5 PLT-137 BUN+49 CR+20 IS: IV ZOSYN Q12 IV PROTONIX QD AMIODARONE NG QD LOPRESSOR NG Q12 : ICU STATUS DCP: WILL NEED [facility]
--- NOTE | 2020-08-28 10:43 | NUR ---
DISCHARGE PLANNING CLINICALS HAVE BEEN FAXED TO [facility]
--- NOTE | 2020-08-28 11:46 | Infectious Diseases Prog Note ---
Assessment/Plan Assessment/Plan antibiotics : zosyn A 1. Right-sided pneumonia. 2. COVID-19 test is negative. 3. Urinary tract infection. 4. Hypertension. 5. Dementia. 6. Respiratory failure s/p tracheostomy 7. leucocytosis 8. renal failure P 1. d/c iv zosyn 2. observe off antibiotics Subjective ROS Limited/Unobtainable: Yes Allergies: Coded Allergies: VANCOMYCIN (Verified Allergy, Severe, hive, 08/27/20) Objective Last 24 Hour Vital Signs Date Time Temp Pulse Resp B/P (MAP) Pulse Ox O2 Delivery O2 Flow Rate FiO2 08/28/20 11:00 76 22 134/57 (82) 98 08/28/20 10:00 68 20 110/45 (66) 98 08/28/20 09:00 96 24 131/67 (88) 98 08/28/20 09:00 96 123/100 08/28/20 08:00 60 08/28/20 08:00 Mechanical Ventilator 08/28/20 08:00 98.0 92 24 149/61 (90) 98 08/28/20 07:38 91 24 60 08/28/20 07:00 92 25 135/64 (87) 98 08/28/20 06:00 84 22 133/67 (89) 99 08/28/20 05:00 87 22 149/57 (87) 98 08/28/20 04:00 60 08/28/20 04:00 98.0 86 21 145/62 (89) 97 08/28/20 04:00 Mechanical Ventilator 08/28/20 03:33 83 21 60 08/28/20 03:01 87 08/28/20 03:00 90 24 147/65 (92) 97 08/28/20 02:00 82 20 144/59 (87) 98 08/28/20 01:00 74 20 119/44 (69) 96 08/28/20 00:00 98.2 83 22 152/60 (90) 97 08/28/20 00:00 Mechanical Ventilator 08/27/20 23:11 73 20 60 08/27/20 23:00 76 20 134/60 (84) 98 08/27/20 22:59 76 08/27/20 22:00 68 20 124/65 (84) 98 08/27/20 21:00 65 20 131/61 (84) 97 08/27/20 20:28 85 142/70 08/27/20 20:00 Mechanical Ventilator 08/27/20 20:00 60 08/27/20 20:00 97.9 85 20 142/70 (94) 97 08/27/20 19:58 87 20 60 08/27/20 19:23 83 08/27/20 19:00 84 21 139/60 (86) 98 08/27/20 18:00 75 20 134/54 (80) 99 08/27/20 17:00 97.8 67 20 98/47 (64) 95 08/27/20 16:00 70 20 120/52 (74) 94 08/27/20 16:00 Mechanical Ventilator 08/27/20 16:00 60 08/27/20 15:08 79 26 80 08/27/20 15:06 81 08/27/20 15:00 81 20 127/52 (77) 95 08/27/20 14:00 80 20 131/52 (78) 93 08/27/20 13:00 71 20 114/41 (65) 93 08/27/20 12:40 60 08/27/20 12:40 Mechanical Ventilator 08/27/20 12:30 78 20 100 08/27/20 12:29 74 20 98 08/27/20 12:28 97.7 77 16 110/35 (60) 95 08/27/20 12:00 Mechanical Ventilator Height (Feet): 5 Height (Inches): 5.00 Weight (Pounds): 136 HEENT: status post trach Respiratory/Chest: lungs clear Cardiovascular: normal rate, regular rhythm, no gallop/murmur Abdomen: soft, non tender Extremities: other - + edema Laboratory Tests Test 08/28/20 05:30 White Blood Count 13.4 K/UL (4.8-10.8) H Red Blood Count 3.17 M/UL (4.70-6.10) L Hemoglobin 9.5 G/DL (14.2-18.0) L Hematocrit 27.5 % (42.0-52.0) L Mean Corpuscular Volume 87 FL (80-99) Mean Corpuscular Hemoglobin 30.1 PG (27.0-31.0) Mean Corpuscular Hemoglobin Concent 34.7 G/DL (32.0-36.0) Red Cell Distribution Width 14.6 % (11.6-14.8) Platelet Count 137 K/UL (150-450) L Mean Platelet Volume 10.2 FL (6.5-10.1) H Neutrophils (%) (Auto) % (45.0-75.0) Lymphocytes (%) (Auto) % (20.0-45.0) Monocytes (%) (Auto) % (1.0-10.0) Eosinophils (%) (Auto) % (0.0-3.0) Basophils (%) (Auto) % (0.0-2.0) Differential Total Cells Counted 100 Neutrophils % (Manual) 94 % (45-75) H Lymphocytes % (Manual) 2 % (20-45) L Monocytes % (Manual) 3 % (1-10) Eosinophils % (Manual) 1 % (0-3) Basophils % (Manual) 0 % (0-2) Band Neutrophils 0 % (0-8) Platelet Estimate Decreased L Platelet Morphology Normal Hypochromasia 1+ Anisocytosis 1+ Sodium Level 146 MMOL/L (136-145) H Potassium Level 3.5 MMOL/L (3.5-5.1) Chloride Level 114 MMOL/L (98-107) H Carbon Dioxide Level 23 MMOL/L (21-32) Anion Gap 9 mmol/L (5-15) Blood Urea Nitrogen 49 mg/dL (7-18) H Creatinine 2.0 MG/DL (0.55-1.30) H Estimat Glomerular Filtration Rate 31.7 mL/min (>60) Glucose Level 120 MG/DL (74-106) H Calcium Level 7.9 MG/DL (8.5-10.1) L Magnesium Level 2.1 MG/DL (1.8-2.4) Pro-B-Type Natriuretic Peptide 2767 pg/mL (0-125) H Current Medications Medications (Trade) Dose Ordered Sig/Javon Route PRN Reason Start Time Stop Time Status Last Admin Dose Admin Acetaminophen (Tylenol) 650 mg Q4H PRN ORAL Mild Pain (Pain Scale 1-3) 08/03/20 01:15 09/02/20 01:14 08/23/20 08:21 Acetaminophen (Tylenol) 650 mg Q4H PRN RECTAL Mild Pain (Pain Scale 1-3) 08/03/20 01:15 09/02/20 01:14 08/04/20 18:32 Amiodarone HCl (Cordarone) 200 mg DAILY NG 08/17/20 09:00 11/15/20 08:59 08/28/20 09:00 Carbidopa/Levodopa (Sinemet 25/100) 1 tab THREE TIMES A DAY NG 08/09/20 18:00 09/02/20 08:59 08/28/20 09:00 Heparin Sodium (Porcine) (Heparin 5000 units/ml) 5,000 units EVERY 12 HOURS SUBQ 08/03/20 09:00 09/17/20 08:59 08/25/20 20:29 Hydralazine HCl (Apresoline) 25 mg Q6H PRN NG SBP above 160 08/11/20 22:30 11/05/20 00:29 08/12/20 15:09 Lorazepam (Ativan 2mg/ml 1ml) 1 mg Q4H PRN IV For Anxiety 08/25/20 06:00 09/01/20 05:59 08/25/20 11:32 Magnesium Hydroxide (Mom) 30 ml DAILYPRN PRN GT Constipation 08/12/20 09:00 09/11/20 08:59 Metoclopramide HCl (Reglan) 5 mg Q8H PRN IVP Nausea & Vomiting 08/15/20 13:00 09/14/20 12:59 Metoprolol Tartrate (Lopressor) 25 mg Q12HR NG 08/13/20 09:00 11/11/20 08:59 08/28/20 09:00 Pantoprazole (Protonix) 40 mg DAILY IVP 08/25/20 09:00 09/24/20 08:59 08/28/20 09:00 Piperacillin Sod/ Tazobactam Sod 3.375 gm/Sodium Chloride 110 ml @ 27.5 mls/hr Q12HR@0600,1800 IVPB 08/25/20 18:00 09/01/20 17:59 08/28/20 06:05 Wagner Christensen MD Aug 28, 2020 11:46
--- NOTE | 2020-08-28 12:18 | Pulmonology Progress Note ---
Subjective ROS Limited/Unobtainable: Yes Constitutional: Reports: fever, other - Uw=052.6 Allergies: Coded Allergies: VANCOMYCIN (Verified Allergy, Severe, hive, 08/27/20) All Systems: reviewed and negative except above Subjective care noted remains intubated diffuse infiltrates on CXR/ oxygenation noted trach placed poor LOC sedated Objective Last 24 Hour Vital Signs Date Time Temp Pulse Resp B/P (MAP) Pulse Ox O2 Delivery O2 Flow Rate FiO2 08/28/20 12:00 98.0 86 25 129/52 (77) 97 08/28/20 11:47 83 08/28/20 11:17 80 28 60 08/28/20 11:00 76 22 134/57 (82) 98 08/28/20 10:00 68 20 110/45 (66) 98 08/28/20 09:00 96 24 131/67 (88) 98 08/28/20 09:00 96 123/100 08/28/20 08:00 60 08/28/20 08:00 Mechanical Ventilator 08/28/20 08:00 98.0 92 24 149/61 (90) 98 08/28/20 07:38 91 24 60 08/28/20 07:27 88 08/28/20 07:00 92 25 135/64 (87) 98 08/28/20 06:00 84 22 133/67 (89) 99 08/28/20 05:00 87 22 149/57 (87) 98 08/28/20 04:00 60 08/28/20 04:00 98.0 86 21 145/62 (89) 97 08/28/20 04:00 Mechanical Ventilator 08/28/20 03:33 83 21 60 08/28/20 03:01 87 08/28/20 03:00 90 24 147/65 (92) 97 08/28/20 02:00 82 20 144/59 (87) 98 08/28/20 01:00 74 20 119/44 (69) 96 08/28/20 00:00 98.2 83 22 152/60 (90) 97 08/28/20 00:00 Mechanical Ventilator 08/27/20 23:11 73 20 60 08/27/20 23:00 76 20 134/60 (84) 98 08/27/20 22:59 76 08/27/20 22:00 68 20 124/65 (84) 98 08/27/20 21:00 65 20 131/61 (84) 97 08/27/20 20:28 85 142/70 08/27/20 20:00 Mechanical Ventilator 08/27/20 20:00 60 08/27/20 20:00 97.9 85 20 142/70 (94) 97 08/27/20 19:58 87 20 60 08/27/20 19:23 83 08/27/20 19:00 84 21 139/60 (86) 98 08/27/20 18:00 75 20 134/54 (80) 99 08/27/20 17:00 97.8 67 20 98/47 (64) 95 08/27/20 16:00 70 20 120/52 (74) 94 08/27/20 16:00 Mechanical Ventilator 08/27/20 16:00 60 08/27/20 15:08 79 26 80 08/27/20 15:06 81 08/27/20 15:00 81 20 127/52 (77) 95 08/27/20 14:00 80 20 131/52 (78) 93 08/27/20 13:00 71 20 114/41 (65) 93 08/27/20 12:40 60 08/27/20 12:40 Mechanical Ventilator 08/27/20 12:30 78 20 100 08/27/20 12:29 74 20 98 08/27/20 12:28 97.7 77 16 110/35 (60) 95 Intake and Output 08/27/20 08/28/20 19:00 07:00 Intake Total 840.0 ml 280.0 ml Output Total 330 ml 355 ml Balance 510.0 ml -75.0 ml Free Water 50 ml IV Total 730.0 ml 110.0 ml Tube Feeding 10 ml 120 ml Other 100 ml Output Urine Total 330 ml 355 ml # Bowel Movements 2 2 Objective WDWN NAD reduced breath sounds bilaterally with scattered rhonchi [id number] NABS nontender no CCE nonfocal trach in place poorly responsive Laboratory Tests 08/28/20 05:30: White Blood Count 13.4H, Red Blood Count 3.17L, Hemoglobin 9.5L, Hematocrit 27.5L, Mean Corpuscular Volume 87, Mean Corpuscular Hemoglobin 30.1, Mean Corpuscular Hemoglobin Concent 34.7, Red Cell Distribution Width 14.6, Platelet Count 137L, Mean Platelet Volume 10.2H, Neutrophils (%) (Auto) , Lymphocytes (%) (Auto) , Monocytes (%) (Auto) , Eosinophils (%) (Auto) , Basophils (%) (Auto) , Differential Total Cells Counted 100, Neutrophils % (Manual) 94H, Lymphocytes % (Manual) 2L, Monocytes % (Manual) 3, Eosinophils % (Manual) 1, Basophils % (Manual) 0, Band Neutrophils 0, Platelet Estimate DecreasedL, Platelet Morphology Normal, Hypochromasia 1+, Anisocytosis 1+, Sodium Level 146H, Potassium Level 3.5, Chloride Level 114H, Carbon Dioxide Level 23, Anion Gap 9, Blood Urea Nitrogen 49H, Creatinine 2.0H, Estimat Glomerular Filtration Rate 31.7, Glucose Level 120H, Calcium Level 7.9L, Magnesium Level 2.1, Pro-B-Type Natriuretic Peptide 2767H Current Medications Medications (Trade) Dose Ordered Sig/Javon Route PRN Reason Start Time Stop Time Status Last Admin Dose Admin Acetaminophen (Tylenol) 650 mg Q4H PRN ORAL Mild Pain (Pain Scale 1-3) 08/03/20 01:15 09/02/20 01:14 08/23/20 08:21 Acetaminophen (Tylenol) 650 mg Q4H PRN RECTAL Mild Pain (Pain Scale 1-3) 08/03/20 01:15 09/02/20 01:14 08/04/20 18:32 Amiodarone HCl (Cordarone) 200 mg DAILY NG 08/17/20 09:00 11/15/20 08:59 08/28/20 09:00 Carbidopa/Levodopa (Sinemet 25/100) 1 tab THREE TIMES A DAY NG 08/09/20 18:00 09/02/20 08:59 08/28/20 09:00 Heparin Sodium (Porcine) (Heparin 5000 units/ml) 5,000 units EVERY 12 HOURS SUBQ 08/03/20 09:00 09/17/20 08:59 08/25/20 20:29 Hydralazine HCl (Apresoline) 25 mg Q6H PRN NG SBP above 160 08/11/20 22:30 11/05/20 00:29 08/12/20 15:09 Lorazepam (Ativan 2mg/ml 1ml) 1 mg Q4H PRN IV For Anxiety 08/25/20 06:00 09/01/20 05:59 08/25/20 11:32 Magnesium Hydroxide (Mom) 30 ml DAILYPRN PRN GT Constipation 08/12/20 09:00 09/11/20 08:59 Metoclopramide HCl (Reglan) 5 mg Q8H PRN IVP Nausea & Vomiting 08/15/20 13:00 09/14/20 12:59 Metoprolol Tartrate (Lopressor) 25 mg Q12HR NG 08/13/20 09:00 11/11/20 08:59 08/28/20 09:00 Pantoprazole (Protonix) 40 mg DAILY IVP 08/25/20 09:00 09/24/20 08:59 08/28/20 09:00 Assessment/Plan Assessment/Plan ASSESSMENT: chronic encephalopathy, dementia, diffuse infiltrates, elevated BNP hypertension, recurrent falls, and urinary tract infection, hypoxemia, probable aspiration pneumonia. acute respiratory failure hypoxemic s/p trach PLAN care noted taper fio2- as able respiratory care as is- monitor acid base vent support as is full for now monitor imaging for change suction off load trach care GT next week Full code for now per family nutrition DVT prophylaxis skin care position change remains critical with poor prognosis will need placement medications/laboratory data/nursing notes/ICU care reviewed in detail note reviewed and edited care discussed with RN and RT ICU time spent >40 minutes Eriberto Valencia MD Aug 28, 2020 12:18
--- NOTE | 2020-08-28 12:55 | NUR ---
NURSE NOTES: No residual from G-tube. Will increase the rate to 20cc/hr as ordered. Will continue to monitor.
--- NOTE | 2020-08-28 14:09 | NUR ---
NURSE NOTES: Received report from Kevon Alvarez RN
--- NOTE | 2020-08-28 14:10 | NUR ---
HAND-OFF: Report given to BLANE Mathis.
--- NOTE | 2020-08-28 14:53 | NUR ---
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 98.0 HR 86 RR 28 B/P 129/52 AC 20 TV 500 FIO2 605 PEEP 5 WBC 13.4 BUN 49 CR 2.0 IS: ZOSYN IV PROTONIX IV ICU STATUS
--- NOTE | 2020-08-28 15:00 | NUR ---
NURSE NOTES: Received patient awake - eyes open but does not follow commands. cardiac cath technician shows SR no ectopy note. Patient with tracheostomy- connected to ventilator - AC 20 Vt500 Fio@60% PEEP+ 5cm- no respiratory distress noted. Both IV sites patent - with NS TKO .NGT patent @ Right nares with Osmolite 1.5 at 20 cc/hr. F/C patent with moderate amt.of UO.
--- NOTE | 2020-08-28 15:16 | Diagnostic Imaging Report ---
Indication: Right upper extremity Technique: Grayscale and Doppler imaging of the veins of the bilateral upper extremities performed real time utilizing compression. Comparison: None Findings: Right upper extremity: Right internal jugular vein is patent and normally compressible. It demonstrates normal color flow with a normal spectral waveform. Imaged portions of the right subclavian vein are patent with demonstrable color flow. Right axillary vein, brachial vein, cephalic vein and basilic vein are patent with normal color flow. Imaged forearm veins are patent. Left upper extremity: Left internal jugular vein is patent and normally compressible, with normal color flow. Left subclavian vein is patent with normal color flow. Left axillary vein, brachial vein and basilic vein are patent and compressible with normal color flow. Present portions of the left cephalic vein in the arm patent. There is occlusion of the cephalic vein in the forearm. IMPRESSION: Occlusion of the left cephalic vein in the forearm. Otherwise visualized veins of the bilateral extremities patent.
--- NOTE | 2020-08-28 15:50 | NUR ---
NURSE NOTES: Patient had large soft /mucoid stool- complete bed bath rendered.
--- NOTE | 2020-08-28 16:00 | NUR ---
NURSE NOTES: V/S stable - No gastric residual - NGT feeding increased to 30 cc/hr
--- NOTE | 2020-08-28 17:10 | Surgery Progress Note ---
Surgery Progress Note Subjective Procedure Performed trach Additional Comments more comfortable with trach seemingly ng in place no n/v cxr noted oxygenation wean sedation and vent Objective Last 24 Hour Vital Signs Date Time Temp Pulse Resp B/P (MAP) Pulse Ox O2 Delivery O2 Flow Rate FiO2 08/28/20 16:00 60 08/28/20 16:00 Mechanical Ventilator 08/28/20 16:00 98.0 88 21 146/53 (84) 99 08/28/20 16:00 81 08/28/20 15:38 89 24 60 08/28/20 15:00 88 24 134/76 (95) 96 08/28/20 14:00 91 28 128/71 (90) 94 08/28/20 13:00 80 25 132/61 (84) 98 08/28/20 12:00 Mechanical Ventilator 08/28/20 12:00 60 08/28/20 12:00 98.0 86 25 129/52 (77) 97 08/28/20 11:47 83 08/28/20 11:17 80 28 60 08/28/20 11:00 76 22 134/57 (82) 98 08/28/20 10:00 68 20 110/45 (66) 98 08/28/20 09:00 96 24 131/67 (88) 98 08/28/20 09:00 96 123/100 08/28/20 08:00 60 08/28/20 08:00 Mechanical Ventilator 08/28/20 08:00 98.0 92 24 149/61 (90) 98 08/28/20 07:38 91 24 60 08/28/20 07:27 88 08/28/20 07:00 92 25 135/64 (87) 98 08/28/20 06:00 84 22 133/67 (89) 99 08/28/20 05:00 87 22 149/57 (87) 98 08/28/20 04:00 60 08/28/20 04:00 98.0 86 21 145/62 (89) 97 08/28/20 04:00 Mechanical Ventilator 08/28/20 03:33 83 21 60 08/28/20 03:01 87 08/28/20 03:00 90 24 147/65 (92) 97 08/28/20 02:00 82 20 144/59 (87) 98 08/28/20 01:00 74 20 119/44 (69) 96 08/28/20 00:00 98.2 83 22 152/60 (90) 97 08/28/20 00:00 Mechanical Ventilator 08/27/20 23:11 73 20 60 08/27/20 23:00 76 20 134/60 (84) 98 08/27/20 22:59 76 08/27/20 22:00 68 20 124/65 (84) 98 08/27/20 21:00 65 20 131/61 (84) 97 08/27/20 20:28 85 142/70 08/27/20 20:00 Mechanical Ventilator 08/27/20 20:00 60 08/27/20 20:00 97.9 85 20 142/70 (94) 97 08/27/20 19:58 87 20 60 08/27/20 19:23 83 08/27/20 19:00 84 21 139/60 (86) 98 08/27/20 18:00 75 20 134/54 (80) 99 I&O Intake and Output 08/27/20 08/28/20 19:00 07:00 Intake Total 840.0 ml 280.0 ml Output Total 330 ml 355 ml Balance 510.0 ml -75.0 ml Free Water 50 ml IV Total 730.0 ml 110.0 ml Tube Feeding 10 ml 120 ml Other 100 ml Output Urine Total 330 ml 355 ml # Bowel Movements 2 2 Dressing: dry Wound: clean Cardiovascular: RSR Respiratory: decreased breath sounds Abdomen: non-tender, present bowel sounds Extremities: no tenderness, no cyanosis Laboratory Tests Test 08/28/20 05:30 White Blood Count 13.4 K/UL (4.8-10.8) H Red Blood Count 3.17 M/UL (4.70-6.10) L Hemoglobin 9.5 G/DL (14.2-18.0) L Hematocrit 27.5 % (42.0-52.0) L Mean Corpuscular Volume 87 FL (80-99) Mean Corpuscular Hemoglobin 30.1 PG (27.0-31.0) Mean Corpuscular Hemoglobin Concent 34.7 G/DL (32.0-36.0) Red Cell Distribution Width 14.6 % (11.6-14.8) Platelet Count 137 K/UL (150-450) L Mean Platelet Volume 10.2 FL (6.5-10.1) H Neutrophils (%) (Auto) % (45.0-75.0) Lymphocytes (%) (Auto) % (20.0-45.0) Monocytes (%) (Auto) % (1.0-10.0) Eosinophils (%) (Auto) % (0.0-3.0) Basophils (%) (Auto) % (0.0-2.0) Differential Total Cells Counted 100 Neutrophils % (Manual) 94 % (45-75) H Lymphocytes % (Manual) 2 % (20-45) L Monocytes % (Manual) 3 % (1-10) Eosinophils % (Manual) 1 % (0-3) Basophils % (Manual) 0 % (0-2) Band Neutrophils 0 % (0-8) Platelet Estimate Decreased L Platelet Morphology Normal Hypochromasia 1+ Anisocytosis 1+ Sodium Level 146 MMOL/L (136-145) H Potassium Level 3.5 MMOL/L (3.5-5.1) Chloride Level 114 MMOL/L (98-107) H Carbon Dioxide Level 23 MMOL/L (21-32) Anion Gap 9 mmol/L (5-15) Blood Urea Nitrogen 49 mg/dL (7-18) H Creatinine 2.0 MG/DL (0.55-1.30) H Estimat Glomerular Filtration Rate 31.7 mL/min (>60) Glucose Level 120 MG/DL (74-106) H Calcium Level 7.9 MG/DL (8.5-10.1) L Magnesium Level 2.1 MG/DL (1.8-2.4) Pro-B-Type Natriuretic Peptide 2767 pg/mL (0-125) H Plan Problems: (1) Pneumonia (2) Hypoxia (3) Sepsis Assessment & Plan: respiratory insufficiency prolonged ventilatory support failed weaning trials weaning vent as much as possible anticipate prolong vent support trach indicated and recommended will obtain consent plan for trach as able to wean thank you cont weaning will follow with recs s/p trach wean sedation wean vent (4) UTI (urinary tract infection) (5) Pneumonia (6) AMS (altered mental status) Isaias Loaiza Aug 28, 2020 17:10
--- NOTE | 2020-08-28 19:06 | NUR ---
HAND-OFF: Report given to Germaine Gutierres,Phu- Endorsed.
--- NOTE | 2020-08-28 19:07 | NUR ---
NURSE NOTES: received pt from Delfina ARGUELLES., pt is opens eyes without tracking. help desk support shows SR at this time. trach vent, Shiley 9 Ac20 TV 500 FIO2 60% P5. O2sat is at 98% without SOB at this time. pt has NGT right nares, Osmolite 1.5 is running at 30cc /hr without residual. Overton cath is draining well with gravity no bleeding noted in the urine. optiform for sacral noted, dry, clean, and intact. general edema noted. right FA 20G left FA 20G IV sites are intact, clean, and patent. pt unable to follow commend with persian directions. call light within reach. will continue to monitor pt with plan of care. bed at the lowest position.
--- NOTE | 2020-08-28 21:24 | NUR ---
NURSE NOTES: EKG done due to pt alternating A.Fib, SR, and A.fib RVR. VS are normal at this time. call light within reach. will continue to monitor pt.
--- NOTE | 2020-08-28 22:56 | NUR ---
NURSE NOTES: notified Dr. Gilmore regarding pt alternated from Afib RVR and SR (EKG done)., no new order received. call light within reach. will continue to monitor pt.
--- NOTE | 2020-08-28 23:29 | Cardiology Progress Note ---
Subjective DATE OF SERVICE: Aug 28, 2020 Remains on vent via trach; O2 requirements remain high. BP readings stabilizing. Monitor: sinus rhythm with paroxysms of atrial fibrillation. Venous Duplex: occluded cephalic vein associated with PICC access Objective Last 24 Hour Vital Signs Date Time Temp Pulse Resp B/P (MAP) Pulse Ox O2 Delivery O2 Flow Rate FiO2 08/28/20 23:12 66 21 60 08/28/20 23:00 68 20 100/48 (65) 98 08/28/20 22:00 80 21 103/49 (67) 98 08/28/20 21:00 66 20 115/48 (70) 97 08/28/20 20:16 74 120/54 08/28/20 20:00 107 08/28/20 20:00 98.5 74 20 103/48 (66) 99 08/28/20 20:00 60 08/28/20 20:00 Mechanical Ventilator 08/28/20 19:00 22 98/61 (73) 84 08/28/20 18:58 70 21 60 08/28/20 18:00 116 26 94/60 (71) 94 08/28/20 17:00 85 24 144/59 (87) 98 08/28/20 16:00 60 08/28/20 16:00 Mechanical Ventilator 08/28/20 16:00 98.0 88 21 146/53 (84) 99 08/28/20 16:00 81 08/28/20 15:38 89 24 60 08/28/20 15:00 88 24 134/76 (95) 96 08/28/20 14:00 91 28 128/71 (90) 94 08/28/20 13:00 80 25 132/61 (84) 98 08/28/20 12:00 Mechanical Ventilator 08/28/20 12:00 60 08/28/20 12:00 98.0 86 25 129/52 (77) 97 08/28/20 11:47 83 08/28/20 11:17 80 28 60 08/28/20 11:00 76 22 134/57 (82) 98 08/28/20 10:00 68 20 110/45 (66) 98 08/28/20 09:00 96 24 131/67 (88) 98 08/28/20 09:00 96 123/100 08/28/20 08:00 60 08/28/20 08:00 Mechanical Ventilator 08/28/20 08:00 98.0 92 24 149/61 (90) 98 08/28/20 07:38 91 24 60 08/28/20 07:27 88 08/28/20 07:00 92 25 135/64 (87) 98 08/28/20 06:00 84 22 133/67 (89) 99 08/28/20 05:00 87 22 149/57 (87) 98 08/28/20 04:00 60 08/28/20 04:00 98.0 86 21 145/62 (89) 97 08/28/20 04:00 Mechanical Ventilator 08/28/20 03:33 83 21 60 08/28/20 03:01 87 08/28/20 03:00 90 24 147/65 (92) 97 08/28/20 02:00 82 20 144/59 (87) 98 08/28/20 01:00 74 20 119/44 (69) 96 08/28/20 00:00 98.2 83 22 152/60 (90) 97 08/28/20 00:00 Mechanical Ventilator ROS: unchanged from my evaluation of 08/02/20 HEENT: Mechanically Ventilated, Thin Trach secretions RHYTHM: NSR, PACs, Afib LUNGS: bilateral rhonchi CARDIAC: normal S1 and S2, irregularly irregular, systolic murmur - 1/6 systolic murmurat apex, rapid rate ABDOMEN: normal bowel sounds, non tender, soft, no organomegaly, other - NGTube EXTREMITIES: normal range of motion, trace edema Laboratory Tests Test 08/28/20 05:30 White Blood Count 13.4 K/UL (4.8-10.8) H Red Blood Count 3.17 M/UL (4.70-6.10) L Hemoglobin 9.5 G/DL (14.2-18.0) L Hematocrit 27.5 % (42.0-52.0) L Mean Corpuscular Volume 87 FL (80-99) Mean Corpuscular Hemoglobin 30.1 PG (27.0-31.0) Mean Corpuscular Hemoglobin Concent 34.7 G/DL (32.0-36.0) Red Cell Distribution Width 14.6 % (11.6-14.8) Platelet Count 137 K/UL (150-450) L Mean Platelet Volume 10.2 FL (6.5-10.1) H Neutrophils (%) (Auto) % (45.0-75.0) Lymphocytes (%) (Auto) % (20.0-45.0) Monocytes (%) (Auto) % (1.0-10.0) Eosinophils (%) (Auto) % (0.0-3.0) Basophils (%) (Auto) % (0.0-2.0) Differential Total Cells Counted 100 Neutrophils % (Manual) 94 % (45-75) H Lymphocytes % (Manual) 2 % (20-45) L Monocytes % (Manual) 3 % (1-10) Eosinophils % (Manual) 1 % (0-3) Basophils % (Manual) 0 % (0-2) Band Neutrophils 0 % (0-8) Platelet Estimate Decreased L Platelet Morphology Normal Hypochromasia 1+ Anisocytosis 1+ Sodium Level 146 MMOL/L (136-145) H Potassium Level 3.5 MMOL/L (3.5-5.1) Chloride Level 114 MMOL/L (98-107) H Carbon Dioxide Level 23 MMOL/L (21-32) Anion Gap 9 mmol/L (5-15) Blood Urea Nitrogen 49 mg/dL (7-18) H Creatinine 2.0 MG/DL (0.55-1.30) H Estimat Glomerular Filtration Rate 31.7 mL/min (>60) Glucose Level 120 MG/DL (74-106) H Calcium Level 7.9 MG/DL (8.5-10.1) L Magnesium Level 2.1 MG/DL (1.8-2.4) Pro-B-Type Natriuretic Peptide 2767 pg/mL (0-125) H Assessment/Plan Assessment/Plan Status post uncomplicated trach. Paroxysmal atrial fibrillation with RVR Acute myocardial ischemia with elevated troponin Aspiration risk Sepsis Healthcare acquired PNA Complicated UTI with indwelling catheter Hyponatremia Severe protein calorie malnutrition Acute myocardial ischemia Respiratory failure with hypoxia and hypercarbia - now on mech ventilation Hypokalemia Leukocytosis improving Ac/chronic diastolic CHF Dehydration/hypernatremia Hypokalemia Acute renal failure Occluded left cephalic vein CRITICAL & GUARDED Trach care Antimicrobials per ID Vent support NGTube feedings advanced, with PEG planned DVT prophylaxis Continue amiodarone; advance dose for additional loading. Titrate anti-HTN regimen as needed. Hypotonic IVF hydration; replace potassium and magnesium as needed. Virgil,Sarkis MD Aug 28, 2020 23:29
[2020-08-29] VITALS (20 sets, daily range): BP systolic 107–180; BP diastolic 47–84
--- NOTE | 2020-08-29 00:20 | NUR ---
NURSE NOTES: oral care provided, repositioned Q 2hrs. pt is resting on the bed comfortably. call light within reach. will continue to monitor pt with plan of care.
--- NOTE | 2020-08-29 02:20 | NUR ---
NURSE NOTES: cleaned pt, provided new gown and new sheets. large BM noted (Brown). springer cath is draining well with gravity. call light within reach.
--- NOTE | 2020-08-29 04:10 | NUR ---
NURSE NOTES: repositioned pt Q 2hrs. oral care provided. oral suctioned, trach suctioned. no SOB noted. springer cath is draining well with gravity.call light within reach.
--- NOTE | 2020-08-29 06:10 | NUR ---
NURSE NOTES: emptied urine from springer, pt is resting on the bed. repositioned pt. call ligjt within reach,
--- NOTE | 2020-08-29 07:08 | NUR ---
NURSE HAND-OFF REPORT: need to follow up on : AM lab Latest Vital Signs: Temperature 98.5 , Pulse 89 , B/P 137 /47 , Respiratory Rate 28 , O2 SAT 98 , Mechanical Ventilator, O2 Flow Rate 60.0 . Vital Sign Comment: [stable, ] EKG Rhythm: Sinus Rhythm, AFiv with RVR, A. Fib Rhythm change?: N Notified?: Aly Breaux MD Response: no new order Latest Jsoé Fall Score: 85 Fall Risk: High Risk Safety Measures: Call light Within Reach, Bed Alarm Zone 1, Side Rails Side Rails x3, Bed position Low and Locked. Fall Precautions: Yellow Socks Yellow Gown Door Sign Patient Fall Education Report given to [Kandice ARGUELLES ].
--- NOTE | 2020-08-29 07:09 | NUR ---
NURSE NOTES: Received bedside report from BLANE Feliciano. Pt's VSS, no signs of distress noted. Pt sleeping but easily arousable, opens eyes but does not track. ST on the residential monitor, HR 110-115. Pt trache to vent, no bleeding noted from trache site, on the following vent settings: A/C rate 20, T/V 500, 60% FiO2, Peep of 5, O2 sat 95-98%, respirations even and unlabored. No active mouth bleeding noted from pt. Pt has NGT through right nare with Osmolite running at 45 mL/hr, no residual noted. Overton catheter noted on pt, draining well, clear yellow urine noted. Skin alterations noted in chart and covered with optifoam. Pt has right FA 20g and left FA 20g, saline locked, no signs of infection or bleeding noted from site. HOB at 30 degrees. Bed locked and in lowest position. Bed rails up. Safety precautions maintained. Will continue to monitor. Addendum: 08/29/20 at 1548 by Kandice Hoover RN NURSE NOTES: Received bedside report from BLANE Feliciano. Pt's VSS, no signs of distress noted. Pt sleeping but easily arousable, opens eyes but does not track. ST on the residential monitor, HR 110-115. Pt trache to vent, no bleeding noted from trache site, on the following vent settings: A/C rate 20, T/V 500, 60% FiO2, Peep of 5, O2 sat 95-98%, respirations even and unlabored. No active mouth bleeding noted from pt. Pt has NGT through right nare with Osmolite running at 45 mL/hr, no residual noted. Overton catheter noted on pt, draining well, clear yellow urine noted. Skin alterations noted in chart and covered with optifoam. Pt has right FA 20g and left FA 20g, saline locked, no signs of infection or bleeding noted from site. Pt has bilateral soft wrist restraints, CMS checked, no signs of injury noted from extremities. HOB at 30 degrees. Bed locked and in lowest position. Bed rails up. Safety precautions maintained. Will continue to monitor.
[2020-08-29 07:13] LABS: HEMATOCRIT 30.6 % (42.0-52.0); HEMOGLOBIN 10.3 G/DL (14.2-18.0); MEAN CORPUSCULAR VOLUME 89 FL (80-99); PLATELET COUNT 134 K/UL (150-450); RED BLOOD COUNT 3.43 M/UL (4.70-6.10); RED CELL DISTRIBUTION WIDTH 13.4 % (11.6-14.8); WHITE BLOOD COUNT 15.7 K/UL (4.8-10.8)
[2020-08-29 08:20] LABS: ALBUMIN 0.9 G/DL (3.4-5.0); ALBUMIN/GLOBULIN RATIO 0.2 (1.0-2.7); BILIRUBIN,TOTAL 0.3 MG/DL (0.2-1.0); CALCIUM 7.8 MG/DL (8.5-10.1); CREATININE 2.1 MG/DL (0.55-1.30); POTASSIUM 3.4 MMOL/L (3.5-5.1)
[2020-08-29] MEDS: Pantoprazole Inj IVP SCH (09:48)
[2020-08-29] MEDS: Levodopa/Carbidopa 25/100 tab NG SCH ×3 (09:49→17:01)
[2020-08-29] MEDS: Heparin 5000 units/ml inj SUBQ SCH ×2 (09:49→21:00)
[2020-08-29] MEDS: Amiodarone 200mg tab NG SCH ×2 (09:49→17:00)
--- NOTE | 2020-08-29 09:50 | NUR ---
NURSE NOTES: Scheduled heparin held due to prior episode of mouth bleeding per warehouse supervisor 3rd shift RN, other scheduled medications given per MD order, pt tolerated well. No active mouth bleeding noted. NGT placement checked, tip of tube in stomach, no residual noted. Pt's VS remain stable, no signs of distress noted. Will continue to monitor.
--- NOTE | 2020-08-29 10:39 | Infectious Diseases Prog Note ---
Assessment/Plan Assessment/Plan A: 1. Bilateral pneumonia treated 2. COVID-19 test is negative. 3. Urinary tract infection. 4. Hypertension. 5. Dementia. 6. Respiratory failure intubated 7. Parkinson's disease PLAN: 1Observe off of antibiotic Subjective ROS Limited/Unobtainable: Yes Constitutional: Denies: fever Neurologic: Reports: confusion, other - on restraint Allergies: Coded Allergies: VANCOMYCIN (Verified Allergy, Severe, hive, 08/27/20) Objective Last 24 Hour Vital Signs Date Time Temp Pulse Resp B/P (MAP) Pulse Ox O2 Delivery O2 Flow Rate FiO2 08/29/20 10:00 98 30 138/57 (84) 99 08/29/20 09:48 112 161/71 08/29/20 09:00 110 35 180/74 (109) 97 08/29/20 08:00 98.7 112 36 161/84 (109) 96 08/29/20 07:30 111 33 60 08/29/20 07:00 95 31 141/73 (95) 98 08/29/20 06:00 89 28 137/47 (77) 98 08/29/20 05:00 84 23 115/49 (71) 98 08/29/20 04:00 Mechanical Ventilator 08/29/20 04:00 98.5 72 22 121/48 (72) 99 08/29/20 04:00 60 08/29/20 03:08 89 32 60 08/29/20 03:00 95 32 139/70 (93) 96 08/29/20 02:59 91 08/29/20 02:00 83 31 139/59 (85) 95 08/29/20 01:00 78 31 135/58 (83) 95 08/29/20 00:00 98.2 67 21 117/53 (74) 98 08/29/20 00:00 Mechanical Ventilator 08/29/20 00:00 60 08/28/20 23:19 68 08/28/20 23:12 66 21 60 08/28/20 23:00 68 20 100/48 (65) 98 08/28/20 22:00 80 21 103/49 (67) 98 08/28/20 21:00 66 20 115/48 (70) 97 08/28/20 20:16 74 120/54 08/28/20 20:00 107 08/28/20 20:00 98.5 74 20 103/48 (66) 99 08/28/20 20:00 60 08/28/20 20:00 Mechanical Ventilator 08/28/20 19:00 22 98/61 (73) 84 08/28/20 18:58 70 21 60 08/28/20 18:00 116 26 94/60 (71) 94 08/28/20 17:00 85 24 144/59 (87) 98 08/28/20 16:00 60 08/28/20 16:00 Mechanical Ventilator 08/28/20 16:00 98.0 88 21 146/53 (84) 99 08/28/20 16:00 81 08/28/20 15:38 89 24 60 08/28/20 15:00 88 24 134/76 (95) 96 08/28/20 14:00 91 28 128/71 (90) 94 08/28/20 13:00 80 25 132/61 (84) 98 08/28/20 12:00 Mechanical Ventilator 08/28/20 12:00 60 08/28/20 12:00 98.0 86 25 129/52 (77) 97 08/28/20 11:47 83 08/28/20 11:17 80 28 60 08/28/20 11:00 76 22 134/57 (82) 98 Height (Feet): 5 Height (Inches): 5.00 Weight (Pounds): 136 HEENT: status post trach Respiratory/Chest: decreased breath sounds, other - on ventilator Cardiovascular: tachycardia Abdomen: soft, non tender, other - NG tubw Extremities: other - Generalized edema Neurologic/Psychiatric: other - opens eyes only Laboratory Tests Test 08/29/20 05:40 White Blood Count 15.7 K/UL (4.8-10.8) H Red Blood Count 3.43 M/UL (4.70-6.10) L Hemoglobin 10.3 G/DL (14.2-18.0) L Hematocrit 30.6 % (42.0-52.0) L Mean Corpuscular Volume 89 FL (80-99) Mean Corpuscular Hemoglobin 30.1 PG (27.0-31.0) Mean Corpuscular Hemoglobin Concent 33.7 G/DL (32.0-36.0) Red Cell Distribution Width 13.4 % (11.6-14.8) Platelet Count 134 K/UL (150-450) L Mean Platelet Volume 12.0 FL (6.5-10.1) H Neutrophils (%) (Auto) % (45.0-75.0) Lymphocytes (%) (Auto) % (20.0-45.0) Monocytes (%) (Auto) % (1.0-10.0) Eosinophils (%) (Auto) % (0.0-3.0) Basophils (%) (Auto) % (0.0-2.0) Neutrophils % (Manual) Pending Lymphocytes % (Manual) Pending Platelet Estimate Pending Platelet Morphology Pending Sodium Level 148 MMOL/L (136-145) H Potassium Level 3.4 MMOL/L (3.5-5.1) L Chloride Level 116 MMOL/L (98-107) H Carbon Dioxide Level 28 MMOL/L (21-32) Anion Gap 4 mmol/L (5-15) L Blood Urea Nitrogen 51 mg/dL (7-18) H Creatinine 2.1 MG/DL (0.55-1.30) H Estimat Glomerular Filtration Rate 30.0 mL/min (>60) Glucose Level 203 MG/DL (74-106) H Calcium Level 7.8 MG/DL (8.5-10.1) L Total Bilirubin 0.3 MG/DL (0.2-1.0) Aspartate Amino Transf (AST/SGOT) 29 U/L (15-37) Alanine Aminotransferase (ALT/SGPT) 14 U/L (12-78) Alkaline Phosphatase 151 U/L (46-116) H Total Protein 5.2 G/DL (6.4-8.2) L Albumin 0.9 G/DL (3.4-5.0) L Globulin 4.3 g/dL Albumin/Globulin Ratio 0.2 (1.0-2.7) L Current Medications Medications (Trade) Dose Ordered Sig/Javon Route PRN Reason Start Time Stop Time Status Last Admin Dose Admin Acetaminophen (Tylenol) 650 mg Q4H PRN ORAL Mild Pain (Pain Scale 1-3) 08/03/20 01:15 09/02/20 01:14 08/23/20 08:21 Acetaminophen (Tylenol) 650 mg Q4H PRN RECTAL Mild Pain (Pain Scale 1-3) 08/03/20 01:15 09/02/20 01:14 08/04/20 18:32 Amiodarone HCl (Cordarone) 200 mg BID NG 08/29/20 09:00 11/15/20 08:59 08/29/20 09:49 Carbidopa/Levodopa (Sinemet 25/100) 1 tab THREE TIMES A DAY NG 08/09/20 18:00 09/02/20 08:59 08/29/20 09:49 Heparin Sodium (Porcine) (Heparin 5000 units/ml) 5,000 units EVERY 12 HOURS SUBQ 08/03/20 09:00 09/17/20 08:59 08/25/20 20:29 Hydralazine HCl (Apresoline) 25 mg Q6H PRN NG SBP above 160 08/11/20 22:30 11/05/20 00:29 08/12/20 15:09 Lorazepam (Ativan 2mg/ml 1ml) 1 mg Q4H PRN IV For Anxiety 08/25/20 06:00 09/01/20 05:59 08/25/20 11:32 Magnesium Hydroxide (Mom) 30 ml DAILYPRN PRN GT Constipation 08/12/20 09:00 09/11/20 08:59 Metoclopramide HCl (Reglan) 5 mg Q8H PRN IVP Nausea & Vomiting 08/15/20 13:00 09/14/20 12:59 Metoprolol Tartrate (Lopressor) 25 mg Q12HR NG 08/13/20 09:00 11/11/20 08:59 08/29/20 09:48 Pantoprazole (Protonix) 40 mg DAILY IVP 08/25/20 09:00 09/24/20 08:59 08/29/20 09:48 Baldev Luo MD Aug 29, 2020 10:39
--- NOTE | 2020-08-29 11:00 | NUR ---
NURSE NOTES: Pt's VSS, no signs of distress noted. Pt's grand-daughter updated regarding pt's status. Safety precautions maintained. Will continue to monitor.
--- NOTE | 2020-08-29 12:00 | NUR ---
NURSE NOTES: Skin assessment performed. Pt noted to have redness on sacral area, skin intact, skin covered and protected with optifoam. Unable to take picture of sacral area due to pt started bucking the vent. Pt noted to have cyst like formation on bilateral, lateral knees, skin intact, blanchable redness noted, both areas covered and protected with optifoam. Right arm ecchymosis noted on pt, skin remains intact. Minimal weeping noted on left arm, skin remains intact. Pt's bilateral heels covered and protected with optifoam, heels remain off the bed. Skin assessment witnessed by BLANE Edmonds. 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
--- NOTE | 2020-08-29 13:45 | NUR ---
NURSE NOTES: Tube feeding residual checked, no residual noted. Scheduled medication given per MD order, pt tolerated well. Pt's VSS, afebrile, no signs of distress noted. Pt had bowel movement, bed bath provided, linens changed. Safety precautions maintained. Will continue to monitor.
--- NOTE | 2020-08-29 15:35 | Pulmonolgy Critical Care Note ---
Critical Care - Asmt/Plan Assessment/Plan: Pulmonary CCM Progress Note Subjective ROS Limited/Unobtainable: Yes Constitutional: Reports: fever, other - In=840.6 Allergies: Coded Allergies: VANCOMYCIN (Verified Allergy, Severe, hive, 08/27/20) All Systems: reviewed and negative except above Subjective care noted remains intubated diffuse infiltrates on CXR/ oxygenation noted trach placed poor LOC sedated Objective Vital Signs noted Objective WDWN NAD reduced breath sounds bilaterally with scattered rhonchi [id number] NABS nontender no CCE nonfocal trach in place poorly responsive Laboratory Tests noted Medications noted Assessment/Plan Assessment/Plan ASSESSMENT: chronic encephalopathy, dementia, diffuse infiltrates, elevated BNP hypertension, recurrent falls, and urinary tract infection, hypoxemia, probable aspiration pneumonia. acute respiratory failure hypoxemic s/p trach PLAN care noted taper fio2- as able respiratory care as is- monitor acid base vent support as is full for now monitor imaging for change suction off load trach care GT next week Full code for now per family nutrition DVT prophylaxis skin care position change remains critical with poor prognosis will need placement medications/laboratory data/nursing notes/ICU care reviewed in detail note reviewed and edited care discussed with RN and RT ICU time spent >40 minutes Critical Care - Objective Last 24 Hour Vital Signs Date Time Temp Pulse Resp B/P (MAP) Pulse Ox O2 Delivery O2 Flow Rate FiO2 08/29/20 14:00 87 29 109/58 (75) 97 08/29/20 13:00 99 33 143/65 (91) 97 08/29/20 12:00 Mechanical Ventilator 08/29/20 12:00 Mechanical Ventilator 08/29/20 12:00 99.7 80 31 134/59 (84) 99 08/29/20 12:00 60 08/29/20 11:31 79 08/29/20 11:00 70 23 60 08/29/20 11:00 78 30 122/55 (77) 99 08/29/20 10:00 98 30 138/57 (84) 99 08/29/20 09:48 112 161/71 08/29/20 09:00 110 35 180/74 (109) 97 08/29/20 08:00 Mechanical Ventilator 08/29/20 08:00 98.7 112 36 161/84 (109) 96 08/29/20 08:00 60 08/29/20 07:30 111 33 60 08/29/20 07:24 112 08/29/20 07:00 95 31 141/73 (95) 98 08/29/20 06:00 89 28 137/47 (77) 98 08/29/20 05:00 84 23 115/49 (71) 98 08/29/20 04:00 Mechanical Ventilator 08/29/20 04:00 98.5 72 22 121/48 (72) 99 08/29/20 04:00 60 08/29/20 03:08 89 32 60 08/29/20 03:00 95 32 139/70 (93) 96 08/29/20 02:59 91 08/29/20 02:00 83 31 139/59 (85) 95 08/29/20 01:00 78 31 135/58 (83) 95 08/29/20 00:00 98.2 67 21 117/53 (74) 98 08/29/20 00:00 Mechanical Ventilator 08/29/20 00:00 60 08/28/20 23:19 68 08/28/20 23:12 66 21 60 08/28/20 23:00 68 20 100/48 (65) 98 08/28/20 22:00 80 21 103/49 (67) 98 08/28/20 21:00 66 20 115/48 (70) 97 08/28/20 20:16 74 120/54 08/28/20 20:00 107 08/28/20 20:00 98.5 74 20 103/48 (66) 99 08/28/20 20:00 60 08/28/20 20:00 Mechanical Ventilator 08/28/20 19:00 22 98/61 (73) 84 08/28/20 18:58 70 21 60 08/28/20 18:00 116 26 94/60 (71) 94 08/28/20 17:00 85 24 144/59 (87) 98 08/28/20 16:00 60 08/28/20 16:00 Mechanical Ventilator 08/28/20 16:00 98.0 88 21 146/53 (84) 99 08/28/20 16:00 81 08/28/20 15:38 89 24 60 Critical Care - Subjective ROS Limited/Unobtainable: Yes Condition: critical FI02: 60 Vent Support Breath Rate: 20 Vent Support Mode: AC Vent Tidal Volume: 500 Sputum Amount: Small PEEP: 5.0 PIP: 27 Tube Feeding Amount: 45 I&O: Intake and Output 08/28/20 08/29/20 18:59 06:59 Intake Total 430.0 ml 530 ml Output Total 450 ml 360 ml Balance -20.0 ml 170 ml Free Water 50 ml 100 ml IV Total 110.0 ml Tube Feeding 220 ml 430 ml Other 50 ml Output Urine Total 450 ml 360 ml # Bowel Movements 3 1 ET-Tube: 7.5 ET Position: 25 Sarkis Bangura MD Aug 29, 2020 15:35
[2020-08-29] MEDS ORDERED: NS 275ml ONE (15:36)
[2020-08-29] MEDS ORDERED: Tubing IV Secondary IV ONE (15:36)
--- NOTE | 2020-08-29 15:43 | NUR ---
NURSE NOTES: Pt's VS remain stable, afebrile, no signs of distress noted. No signs of active bleeding noted from pt. Minimal weeping noted from pt's bilateral arms, skin remains intact. Safety precautions maintained. Will continue to monitor.
--- NOTE | 2020-08-29 17:00 | NUR ---
NURSE NOTES: No residual noted from NGT, scheduled medications given per MD order, pt tolerated well. Bilateral Heels and other bony prominences covered and protected with optifoam. Bilateral heels off-loaded. VS remain stable, no signs of distress noted. Will continue to monitor.
--- NOTE | 2020-08-29 18:00 | Surgery Progress Note ---
Surgery Progress Note Subjective Procedure Performed trach Additional Comments labs noted micro reviewed exam stable no n/v/f/c Objective Last 24 Hour Vital Signs Date Time Temp Pulse Resp B/P (MAP) Pulse Ox O2 Delivery O2 Flow Rate FiO2 08/29/20 17:00 102 34 123/69 (87) 97 08/29/20 16:20 80 08/29/20 16:00 60 08/29/20 16:00 99.8 85 28 114/60 (78) 97 08/29/20 16:00 Mechanical Ventilator 08/29/20 15:30 96 42 60 08/29/20 15:00 80 27 111/53 (72) 95 08/29/20 14:00 87 29 109/58 (75) 97 08/29/20 13:00 99 33 143/65 (91) 97 08/29/20 12:00 Mechanical Ventilator 08/29/20 12:00 Mechanical Ventilator 08/29/20 12:00 99.7 80 31 134/59 (84) 99 08/29/20 12:00 60 08/29/20 11:31 79 08/29/20 11:00 70 23 60 08/29/20 11:00 78 30 122/55 (77) 99 08/29/20 10:00 98 30 138/57 (84) 99 08/29/20 09:48 112 161/71 08/29/20 09:00 110 35 180/74 (109) 97 08/29/20 08:00 Mechanical Ventilator 08/29/20 08:00 98.7 112 36 161/84 (109) 96 08/29/20 08:00 60 08/29/20 07:30 111 33 60 08/29/20 07:24 112 08/29/20 07:00 95 31 141/73 (95) 98 08/29/20 06:00 89 28 137/47 (77) 98 08/29/20 05:00 84 23 115/49 (71) 98 08/29/20 04:00 Mechanical Ventilator 08/29/20 04:00 98.5 72 22 121/48 (72) 99 08/29/20 04:00 60 08/29/20 03:08 89 32 60 08/29/20 03:00 95 32 139/70 (93) 96 08/29/20 02:59 91 08/29/20 02:00 83 31 139/59 (85) 95 08/29/20 01:00 78 31 135/58 (83) 95 08/29/20 00:00 98.2 67 21 117/53 (74) 98 08/29/20 00:00 Mechanical Ventilator 08/29/20 00:00 60 08/28/20 23:19 68 08/28/20 23:12 66 21 60 08/28/20 23:00 68 20 100/48 (65) 98 08/28/20 22:00 80 21 103/49 (67) 98 08/28/20 21:00 66 20 115/48 (70) 97 08/28/20 20:16 74 120/54 08/28/20 20:00 107 08/28/20 20:00 98.5 74 20 103/48 (66) 99 08/28/20 20:00 60 08/28/20 20:00 Mechanical Ventilator 08/28/20 19:00 22 98/61 (73) 84 08/28/20 18:58 70 21 60 I&O Intake and Output 08/28/20 08/29/20 19:00 07:00 Intake Total 450.0 ml 575 ml Output Total 445 ml 370 ml Balance 5.0 ml 205 ml Free Water 50 ml 130 ml IV Total 110.0 ml Tube Feeding 240 ml 445 ml Other 50 ml Output Urine Total 445 ml 370 ml # Bowel Movements 2 2 Dressing: dry Cardiovascular: RSR Respiratory: decreased breath sounds Abdomen: non-tender, present bowel sounds Extremities: no edema, no tenderness Laboratory Tests Test 08/29/20 05:40 White Blood Count 15.7 K/UL (4.8-10.8) H Red Blood Count 3.43 M/UL (4.70-6.10) L Hemoglobin 10.3 G/DL (14.2-18.0) L Hematocrit 30.6 % (42.0-52.0) L Mean Corpuscular Volume 89 FL (80-99) Mean Corpuscular Hemoglobin 30.1 PG (27.0-31.0) Mean Corpuscular Hemoglobin Concent 33.7 G/DL (32.0-36.0) Red Cell Distribution Width 13.4 % (11.6-14.8) Platelet Count 134 K/UL (150-450) L Mean Platelet Volume 12.0 FL (6.5-10.1) H Neutrophils (%) (Auto) % (45.0-75.0) Lymphocytes (%) (Auto) % (20.0-45.0) Monocytes (%) (Auto) % (1.0-10.0) Eosinophils (%) (Auto) % (0.0-3.0) Basophils (%) (Auto) % (0.0-2.0) Differential Total Cells Counted 100 Neutrophils % (Manual) 95 % (45-75) H Lymphocytes % (Manual) 3 % (20-45) L Monocytes % (Manual) 1 % (1-10) Eosinophils % (Manual) 1 % (0-3) Basophils % (Manual) 0 % (0-2) Band Neutrophils 0 % (0-8) Platelet Estimate Decreased L Platelet Morphology Normal Anisocytosis 1+ Sodium Level 148 MMOL/L (136-145) H Potassium Level 3.4 MMOL/L (3.5-5.1) L Chloride Level 116 MMOL/L (98-107) H Carbon Dioxide Level 28 MMOL/L (21-32) Anion Gap 4 mmol/L (5-15) L Blood Urea Nitrogen 51 mg/dL (7-18) H Creatinine 2.1 MG/DL (0.55-1.30) H Estimat Glomerular Filtration Rate 30.0 mL/min (>60) Glucose Level 203 MG/DL (74-106) H Calcium Level 7.8 MG/DL (8.5-10.1) L Total Bilirubin 0.3 MG/DL (0.2-1.0) Aspartate Amino Transf (AST/SGOT) 29 U/L (15-37) Alanine Aminotransferase (ALT/SGPT) 14 U/L (12-78) Alkaline Phosphatase 151 U/L (46-116) H Total Protein 5.2 G/DL (6.4-8.2) L Albumin 0.9 G/DL (3.4-5.0) L Globulin 4.3 g/dL Albumin/Globulin Ratio 0.2 (1.0-2.7) L Plan Problems: (1) Pneumonia (2) Hypoxia (3) Sepsis Assessment & Plan: respiratory insufficiency prolonged ventilatory support failed weaning trials weaning vent as much as possible anticipate prolong vent support trach indicated and recommended will obtain consent plan for trach as able to wean thank you cont weaning will follow with recs s/p trach wean sedation wean vent (4) UTI (urinary tract infection) (5) Pneumonia (6) AMS (altered mental status) Isaias Loaiza Aug 29, 2020 18:00
--- NOTE | 2020-08-29 18:50 | NUR ---
NURSE NOTES: Pt's VSS, no signs of distress noted. Will transfer pt to [facility] per MD order.
--- NOTE | 2020-08-29 19:30 | NUR ---
NURSE HAND-OFF REPORT: Latest Vital Signs: Temperature 99.8 , Pulse 81 , B/P 107 /53 , Respiratory Rate 21 , O2 SAT 99 , Mechanical Ventilator, O2 Flow Rate 60.0 . Vital Sign Comment: EKG Rhythm: Sinus Rhythm Rhythm change?: William KURTZ Notified?: William Montoya MD Response: Message left await call Latest José Fall Score: 85 Fall Risk: High Risk Safety Measures: Call light Within Reach, Bed Alarm Zone 1, Side Rails Side Rails x3, Bed position Low and Locked. Fall Precautions: Yellow Socks Yellow Gown Door Sign Patient Fall Education Report given to BLANE Lao in [facility] for continuity of care. Pt stable. .
--- NOTE | 2020-08-29 19:30 | NUR ---
NURSE NOTES: Received pt in bed, asleep, on vent via trach, not showing any signs of distress at present settings. Tube feeding running @ 45cc/hr via NGT with no residuals noted. Overton cath in place draining yeelow urine. LFA and RFA # 20 intact. VSS and pt is SR on the monitor.
[2020-08-29] MEDS: LORazepam Inj 2mg/ml 1ml IV PRN (22:06)
[2020-08-30] VITALS: BP 132/75
--- NOTE | 2020-08-30 | NUR ---
NURSE NOTES: Pt remains stable with stable VS. Pt is noted to go back in forth from SR to A. Fib which pt has done inn the past. Pt remains asymptomatic and VS remain WNL. Photo of sacral area taken and dressing applied.
--- NOTE | 2020-08-30 01:46 | Cardiology Progress Note ---
Subjective DATE OF SERVICE: Aug 29, 2020 Remains on vent via trach; O2 requirements remain high. BP readings stabilizing. Monitor: sinus rhythm with paroxysms of atrial fibrillation. Rising Na levels and renal parameters Venous Duplex: occluded cephalic vein associated with PICC access Objective Last 24 Hour Vital Signs Date Time Temp Pulse Resp B/P (MAP) Pulse Ox O2 Delivery O2 Flow Rate FiO2 08/30/20 00:00 98.1 75 28 132/75 (94) 97 08/30/20 00:00 75 08/30/20 00:00 60 08/30/20 00:00 Mechanical Ventilator 08/29/20 23:58 68 20 60 08/29/20 22:06 74 26 132/74 96 08/29/20 21:06 73 137/72 08/29/20 20:00 75 08/29/20 20:00 Mechanical Ventilator 08/29/20 20:00 60 08/29/20 20:00 98.1 88 26 137/72 (93) 96 08/29/20 19:02 81 21 60 08/29/20 18:00 78 23 107/53 (71) 99 08/29/20 17:00 102 34 123/69 (87) 97 08/29/20 16:20 80 08/29/20 16:00 60 08/29/20 16:00 99.8 85 28 114/60 (78) 97 08/29/20 16:00 Mechanical Ventilator 08/29/20 15:30 96 42 60 08/29/20 15:00 80 27 111/53 (72) 95 08/29/20 14:00 87 29 109/58 (75) 97 08/29/20 13:00 99 33 143/65 (91) 97 08/29/20 12:00 Mechanical Ventilator 08/29/20 12:00 Mechanical Ventilator 08/29/20 12:00 99.7 80 31 134/59 (84) 99 08/29/20 12:00 60 08/29/20 11:31 79 08/29/20 11:00 70 23 60 08/29/20 11:00 78 30 122/55 (77) 99 08/29/20 10:00 98 30 138/57 (84) 99 08/29/20 09:48 112 161/71 08/29/20 09:00 110 35 180/74 (109) 97 08/29/20 08:00 Mechanical Ventilator 08/29/20 08:00 98.7 112 36 161/84 (109) 96 08/29/20 08:00 60 08/29/20 07:30 111 33 60 08/29/20 07:24 112 08/29/20 07:00 95 31 141/73 (95) 98 08/29/20 06:00 89 28 137/47 (77) 98 08/29/20 05:00 84 23 115/49 (71) 98 08/29/20 04:00 Mechanical Ventilator 08/29/20 04:00 98.5 72 22 121/48 (72) 99 08/29/20 04:00 60 08/29/20 03:08 89 32 60 08/29/20 03:00 95 32 139/70 (93) 96 08/29/20 02:59 91 08/29/20 02:00 83 31 139/59 (85) 95 ROS: unchanged from my evaluation of 08/02/20 HEENT: Mechanically Ventilated, Thin Trach secretions RHYTHM: NSR, PACs, Afib LUNGS: bilateral rhonchi CARDIAC: normal S1 and S2, irregularly irregular, systolic murmur - 1/6 systolic murmurat apex, rapid rate ABDOMEN: normal bowel sounds, non tender, soft, no organomegaly, other - NGTube EXTREMITIES: normal range of motion, trace edema Laboratory Tests Test 08/29/20 05:40 White Blood Count 15.7 K/UL (4.8-10.8) H Red Blood Count 3.43 M/UL (4.70-6.10) L Hemoglobin 10.3 G/DL (14.2-18.0) L Hematocrit 30.6 % (42.0-52.0) L Mean Corpuscular Volume 89 FL (80-99) Mean Corpuscular Hemoglobin 30.1 PG (27.0-31.0) Mean Corpuscular Hemoglobin Concent 33.7 G/DL (32.0-36.0) Red Cell Distribution Width 13.4 % (11.6-14.8) Platelet Count 134 K/UL (150-450) L Mean Platelet Volume 12.0 FL (6.5-10.1) H Neutrophils (%) (Auto) % (45.0-75.0) Lymphocytes (%) (Auto) % (20.0-45.0) Monocytes (%) (Auto) % (1.0-10.0) Eosinophils (%) (Auto) % (0.0-3.0) Basophils (%) (Auto) % (0.0-2.0) Differential Total Cells Counted 100 Neutrophils % (Manual) 95 % (45-75) H Lymphocytes % (Manual) 3 % (20-45) L Monocytes % (Manual) 1 % (1-10) Eosinophils % (Manual) 1 % (0-3) Basophils % (Manual) 0 % (0-2) Band Neutrophils 0 % (0-8) Platelet Estimate Decreased L Platelet Morphology Normal Anisocytosis 1+ Sodium Level 148 MMOL/L (136-145) H Potassium Level 3.4 MMOL/L (3.5-5.1) L Chloride Level 116 MMOL/L (98-107) H Carbon Dioxide Level 28 MMOL/L (21-32) Anion Gap 4 mmol/L (5-15) L Blood Urea Nitrogen 51 mg/dL (7-18) H Creatinine 2.1 MG/DL (0.55-1.30) H Estimat Glomerular Filtration Rate 30.0 mL/min (>60) Glucose Level 203 MG/DL (74-106) H Calcium Level 7.8 MG/DL (8.5-10.1) L Total Bilirubin 0.3 MG/DL (0.2-1.0) Aspartate Amino Transf (AST/SGOT) 29 U/L (15-37) Alanine Aminotransferase (ALT/SGPT) 14 U/L (12-78) Alkaline Phosphatase 151 U/L (46-116) H Total Protein 5.2 G/DL (6.4-8.2) L Albumin 0.9 G/DL (3.4-5.0) L Globulin 4.3 g/dL Albumin/Globulin Ratio 0.2 (1.0-2.7) L Assessment/Plan Assessment/Plan Status post uncomplicated trach. Paroxysmal atrial fibrillation with RVR Acute myocardial ischemia with elevated troponin Aspiration risk Sepsis Healthcare acquired PNA Complicated UTI with indwelling catheter Hyponatremia Severe protein calorie malnutrition Acute myocardial ischemia Respiratory failure with hypoxia and hypercarbia - now on mech ventilation Hypokalemia Leukocytosis improving Ac/chronic diastolic CHF Dehydration/hypernatremia Hypokalemia Acute renal failure Occluded left cephalic vein CRITICAL & GUARDED Trach care Antimicrobials per ID Vent support NGTube feedings advanced, with PEG planned DVT prophylaxis Continue amiodarone; advance dose for additional loading. Titrate anti-HTN regimen as needed. Hypotonic IVF hydration; replace potassium and magnesium as needed. Sarkis Herman MD Aug 30, 2020 01:46
[2020-08-30 04:00] VITALS: BP 116/53
--- NOTE | 2020-08-30 04:00 | NUR ---
NURSE NOTES: Pt remains stable with stable VS. AM care given and pt repositioned for comfort.
--- NOTE | 2020-08-30 07:05 | NUR ---
RESPIRATORY NOTE: PT RECEIVED STABLE ON CMV WITH CURRENT SETTINGS: AC/VC 20, 500, 60%, +5. AIRWAY IS MIDLINE SECURE AND PATENT. ALARMS ARE ON AND AUDIBLE. VENT CIRCUIT IS SECURE AND OUT OF THE WAY. NO S/S OF RESPIRATORY DISTRESS NOTED AT THIS TIME. WILL CONTINUE TO MONITOR.
--- NOTE | 2020-08-30 07:23 | NUR ---
HAND-OFF: Report given to BLANE Ramirez.
--- NOTE | 2020-08-30 07:30 | NUR ---
NURSE NOTES: Received report from BLANE Lao. The patient is resting on the bed without acute distress or shortness of breath. The patient is obtunded, opening eyes with tactile stimuli but eyes are not tracking nor following the command. SR w/ HR of 80s on the cardiac surgeon. The patient is trach'ed on the ventilator on following setting and oxygen saturation is 95%: Shiley 8 AC 20 TV 500 FiO2 60% and PEEP 5. The patient has R NGT @ 60cm and running Osmolite 1.5 @ 45mL/hr and no residual noted. The patient's Overton intact and draining by gravity. The patient has R FA 20G and L FA 20G PIVs those are intact and patent and running D5W @ 75mL/hr per order. Skin issue noted and dressing intact. The patient's bed in the lowest position, call light in reach, and fall and aspiration precaution reinforced. IV site intact and patent. Will follow up the lab and order. Will closely monitor the patient. Will continue plan of care.
[2020-08-30 08:00] VITALS: BP 116/58
--- NOTE | 2020-08-30 08:00 | NUR ---
NURSE NOTES: Morning vital signs taken. Morning nursing assessment done. The patient is stable at this time. Will continue plan of care.
[2020-08-30] MEDS: Heparin 5000 units/ml inj SUBQ SCH ×2 (09:00→21:00)
[2020-08-30] MEDS: Amiodarone 200mg tab NG SCH ×2 (09:52→17:19)
[2020-08-30] MEDS: Levodopa/Carbidopa 25/100 tab NG SCH ×3 (09:53→17:19)
--- NOTE | 2020-08-30 10:00 | NUR ---
NURSE NOTES: Morning medications administered per order. The patient tolerated well. Heparin on hold due to bleeding upon oral suction. Will closely monitor the patient. Will continue plan of care.
--- NOTE | 2020-08-30 10:18 | General Progress Note ---
Subjective ROS Limited/Unobtainable: No Constitutional: Reports: fever, malaise HEENT: Reports: no symptoms Cardiovascular: Reports: no symptoms Respiratory: Reports: cough, shortness of breath, sputum Gastrointestinal/Abdominal: Reports: difficulty swallowing Genitourinary: Reports: no symptoms Neurologic/Psychiatric: Reports: no symptoms Endocrine: Reports: no symptoms Hematologic/Lymphatic: Reports: anemia Allergies: Coded Allergies: VANCOMYCIN (Verified Allergy, Severe, hive, 08/27/20) All Systems: reviewed and negative except above Subjective transferred out of the icu. awake. on ngt feeds. no fevers. on the vent. fio2 60% Objective Last 24 Hour Vital Signs Date Time Temp Pulse Resp B/P (MAP) Pulse Ox O2 Delivery O2 Flow Rate FiO2 08/30/20 09:53 74 115/68 08/30/20 04:00 Mechanical Ventilator 08/30/20 04:00 97.9 64 21 116/53 (74) 100 08/30/20 04:00 60 08/30/20 03:46 65 23 60 08/30/20 03:41 66 08/30/20 00:00 98.1 75 28 132/75 (94) 97 08/30/20 00:00 75 08/30/20 00:00 60 08/30/20 00:00 Mechanical Ventilator 08/29/20 23:58 68 20 60 08/29/20 22:06 74 26 132/74 96 08/29/20 21:06 73 137/72 08/29/20 20:00 75 08/29/20 20:00 Mechanical Ventilator 08/29/20 20:00 60 08/29/20 20:00 98.1 88 26 137/72 (93) 96 08/29/20 19:02 81 21 60 08/29/20 18:00 78 23 107/53 (71) 99 08/29/20 17:00 102 34 123/69 (87) 97 08/29/20 16:20 80 08/29/20 16:00 60 08/29/20 16:00 99.8 85 28 114/60 (78) 97 08/29/20 16:00 Mechanical Ventilator 08/29/20 15:30 96 42 60 08/29/20 15:00 80 27 111/53 (72) 95 08/29/20 14:00 87 29 109/58 (75) 97 08/29/20 13:00 99 33 143/65 (91) 97 08/29/20 12:00 Mechanical Ventilator 08/29/20 12:00 Mechanical Ventilator 08/29/20 12:00 99.7 80 31 134/59 (84) 99 08/29/20 12:00 60 08/29/20 11:31 79 08/29/20 11:00 70 23 60 08/29/20 11:00 78 30 122/55 (77) 99 Intake and Output 08/29/20 08/30/20 19:00 07:00 Intake Total 655 ml 795 ml Output Total 365 ml 400 ml Balance 290 ml 395 ml Free Water 115 ml IV Total 300 ml Tube Feeding 540 ml 495 ml Output Urine Total 365 ml 400 ml # Bowel Movements 7 4 Height (Feet): 5 Height (Inches): 5.00 Weight (Pounds): 136 Objective General Appearance: WD/WN, confused, thin. on the vent EENT: normal ENT inspection Neck: non-tender, normal alignment, supple. trach midline Cardiovascular: normal rate, regular rhythm Respiratory/Chest: chest wall non-tender, lungs clear, normal breath sounds, no respiratory distress, no accessory muscle use Abdomen: normal bowel sounds, non tender, soft, no organomegaly Edema: no edema noted Arm (L), no edema noted Arm (R) Assessment/Plan Problem List: (1) Pneumonia ICD Codes: J18.9 - Pneumonia, unspecified organism SNOMED: 078746647 (2) Hypoxia ICD Codes: R09.02 - Hypoxemia SNOMED: 289363610 (3) AMS (altered mental status) ICD Codes: R41.82 - Altered mental status, unspecified SNOMED: 483665506 (4) UTI (urinary tract infection) ICD Codes: N39.0 - Urinary tract infection, site not specified SNOMED: 06030926 (5) Sepsis ICD Codes: A41.9 - Sepsis, unspecified organism SNOMED: 01822244 Status: stable, not improved Assessment/Plan: vent support trach care ngt feeds suctioning monitor labs/lytes replace as needed gt per GI dvt/stress ulcer prophylaxis turn q2 ativan for agitation very poor prognosis- d/w family. they are aware Chavez Gilmore MD Aug 30, 2020 10:18
--- NOTE | 2020-08-30 11:06 | Surgery Progress Note ---
Surgery Progress Note Subjective Procedure Performed trach Additional Comments min responsive Objective Last 24 Hour Vital Signs Date Time Temp Pulse Resp B/P (MAP) Pulse Ox O2 Delivery O2 Flow Rate FiO2 08/30/20 09:53 74 115/68 08/30/20 04:00 Mechanical Ventilator 08/30/20 04:00 97.9 64 21 116/53 (74) 100 08/30/20 04:00 60 08/30/20 03:46 65 23 60 08/30/20 03:41 66 08/30/20 00:00 98.1 75 28 132/75 (94) 97 08/30/20 00:00 75 08/30/20 00:00 60 08/30/20 00:00 Mechanical Ventilator 08/29/20 23:58 68 20 60 08/29/20 22:06 74 26 132/74 96 08/29/20 21:06 73 137/72 08/29/20 20:00 75 08/29/20 20:00 Mechanical Ventilator 08/29/20 20:00 60 08/29/20 20:00 98.1 88 26 137/72 (93) 96 08/29/20 19:02 81 21 60 08/29/20 18:00 78 23 107/53 (71) 99 08/29/20 17:00 102 34 123/69 (87) 97 08/29/20 16:20 80 08/29/20 16:00 60 08/29/20 16:00 99.8 85 28 114/60 (78) 97 08/29/20 16:00 Mechanical Ventilator 08/29/20 15:30 96 42 60 08/29/20 15:00 80 27 111/53 (72) 95 08/29/20 14:00 87 29 109/58 (75) 97 08/29/20 13:00 99 33 143/65 (91) 97 08/29/20 12:00 Mechanical Ventilator 08/29/20 12:00 Mechanical Ventilator 08/29/20 12:00 99.7 80 31 134/59 (84) 99 08/29/20 12:00 60 08/29/20 11:31 79 I&O Intake and Output 08/29/20 08/30/20 19:00 07:00 Intake Total 655 ml 795 ml Output Total 365 ml 400 ml Balance 290 ml 395 ml Free Water 115 ml IV Total 300 ml Tube Feeding 540 ml 495 ml Output Urine Total 365 ml 400 ml # Bowel Movements 7 4 Dressing: dry Cardiovascular: RSR Respiratory: decreased breath sounds Abdomen: non-tender, present bowel sounds Extremities: no tenderness, no cyanosis Plan Problems: (1) Pneumonia (2) Hypoxia (3) Sepsis Assessment & Plan: respiratory insufficiency prolonged ventilatory support failed weaning trials weaning vent as much as possible anticipate prolong vent support trach indicated and recommended will obtain consent plan for trach as able to wean thank you cont weaning will follow with recs s/p trach wean sedation wean vent (4) UTI (urinary tract infection) (5) Pneumonia (6) AMS (altered mental status) Isaias Loaiza Aug 30, 2020 11:06
--- NOTE | 2020-08-30 11:30 | NUR ---
NURSE NOTES: Dr. Gilmore was notified regarding abnormal lab including Hgb drop from 10.3 to 8.1, Plt from 134 to 88, and Na from 148 to 151 w/ bloody oral secretion. Per Dr. Gilmore, no new order at this time. Will closely monitor the patient. Will continue plan of care.
[2020-08-30 12:00] VITALS: BP 109/52
--- NOTE | 2020-08-30 12:00 | NUR ---
NURSE NOTES: The patient is resting on the bed without acute distress or shortness of breath. Will closely monitor the patient. Will continue plan of care.
[2020-08-30 12:05] LABS: HEMATOCRIT 24.4 % (42.0-52.0); HEMOGLOBIN 8.1 G/DL (14.2-18.0); MEAN CORPUSCULAR VOLUME 89 FL (80-99); PLATELET COUNT 88 K/UL (150-450); RED BLOOD COUNT 2.74 M/UL (4.70-6.10); RED CELL DISTRIBUTION WIDTH 14.2 % (11.6-14.8); WHITE BLOOD COUNT 13.5 K/UL (4.8-10.8)
[2020-08-30 12:17] LABS: CREATININE 1.7 MG/DL (0.55-1.30); POTASSIUM 3.8 MMOL/L (3.5-5.1)
[2020-08-30 12:29] LABS: CALCIUM 7.7 MG/DL (8.5-10.1)
--- NOTE | 2020-08-30 14:00 | NUR ---
NURSE NOTES: Oral care and repositioning done Q2H. The patient is tolerating vent setting and tube feeding well. Will closely monitor the patient. Will continue plan of care.
--- NOTE | 2020-08-30 15:51 | Pulmonolgy Critical Care Note ---
Critical Care - Asmt/Plan Assessment/Plan: Pulmonary CCM Progress Note Subjective ROS Limited/Unobtainable: Yes Constitutional: Reports: fever, other - Kc=820.6 Allergies: Coded Allergies: VANCOMYCIN (Verified Allergy, Severe, hive, 08/27/20) All Systems: reviewed and negative except above Subjective care noted remains intubated diffuse infiltrates on CXR/ oxygenation noted s/p trach,in SDU poor LOC sedated Objective Vital Signs noted Objective WDWN NAD reduced breath sounds bilaterally with scattered rhonchi [id number] NABS nontender no CCE nonfocal trach in place poorly responsive Laboratory Tests noted Medications noted Assessment/Plan Assessment/Plan ASSESSMENT: chronic encephalopathy, dementia, diffuse infiltrates, elevated BNP hypertension, recurrent falls, and urinary tract infection, hypoxemia, probable aspiration pneumonia. acute respiratory failure hypoxemic s/p trach PLAN care noted taper fio2- as able respiratory care as is- monitor acid base vent support as is full for now monitor imaging for change suction off load trach care GT next week Full code for now per family nutrition DVT prophylaxis skin care position change remains critical with poor prognosis will need placement medications/laboratory data/nursing notes/ICU care reviewed in detail note reviewed and edited care discussed with RN and RT time spent >40 minutes Critical Care - Objective Last 24 Hour Vital Signs Date Time Temp Pulse Resp B/P (MAP) Pulse Ox O2 Delivery O2 Flow Rate FiO2 08/30/20 12:00 60 08/30/20 12:00 80 08/30/20 12:00 97.5 68 20 109/52 (71) 100 08/30/20 10:30 83 33 60 08/30/20 09:53 74 115/68 08/30/20 08:00 97.5 70 20 116/58 (77) 100 08/30/20 08:00 65 08/30/20 08:00 60 08/30/20 07:15 66 23 60 08/30/20 04:00 Mechanical Ventilator 08/30/20 04:00 97.9 64 21 116/53 (74) 100 08/30/20 04:00 60 08/30/20 03:46 65 23 60 08/30/20 03:41 66 08/30/20 00:00 98.1 75 28 132/75 (94) 97 08/30/20 00:00 75 08/30/20 00:00 60 08/30/20 00:00 Mechanical Ventilator 08/29/20 23:58 68 20 60 08/29/20 22:06 74 26 132/74 96 08/29/20 21:06 73 137/72 08/29/20 20:00 75 08/29/20 20:00 Mechanical Ventilator 08/29/20 20:00 60 08/29/20 20:00 98.1 88 26 137/72 (93) 96 08/29/20 19:02 81 21 60 08/29/20 18:00 78 23 107/53 (71) 99 08/29/20 17:00 102 34 123/69 (87) 97 08/29/20 16:20 80 08/29/20 16:00 60 08/29/20 16:00 99.8 85 28 114/60 (78) 97 08/29/20 16:00 Mechanical Ventilator Critical Care - Subjective ROS Limited/Unobtainable: Yes Condition: stable FI02: 60 Vent Support Breath Rate: 20 Vent Support Mode: AC Vent Tidal Volume: 500 Sputum Amount: Small PEEP: 5.0 PIP: 50 Tube Feeding Amount: 45 I&O: Intake and Output 08/29/20 08/30/20 19:00 07:00 Intake Total 655 ml 795 ml Output Total 365 ml 400 ml Balance 290 ml 395 ml Free Water 115 ml IV Total 300 ml Tube Feeding 540 ml 495 ml Output Urine Total 365 ml 400 ml # Bowel Movements 7 4 ET-Tube: 7.5 ET Position: 25 Sarkis Bangura MD Aug 30, 2020 15:51
[2020-08-30 16:00] VITALS: BP 119/67
--- NOTE | 2020-08-30 16:00 | NUR ---
NURSE NOTES: Bed bath given to the patient. Tolerated well. Tolerating vent setting and tube feeding well. Will closely monitor the patient. Will continue plan of care.
--- NOTE | 2020-08-30 18:00 | NUR ---
NURSE NOTES: Medications administered per order. The patient tolerated well. Will closely monitor the patient. Will continue plan of care.
--- NOTE | 2020-08-30 19:20 | NUR ---
NURSE HAND-OFF REPORT: Important Events on Shift: Stable throughout the shift, D/C'ed restraints per order, Dr. Gilmore was notified regarding Hgb drop from 10.3 to 8.1 but no new order Patient Status: Stable, Full code Diet: NGT Osmolite 1.5 @ 45mL/hr Pending Orders: N Pending Results/Labs: N Pending MD notification: N Latest Vital Signs: Temperature 97.3 , Pulse 90 , B/P 119 /67 , Respiratory Rate 20 , O2 SAT 100 , Mechanical Ventilator, O2 Flow Rate 60.0 . Vital Sign Comment: Stable EKG Rhythm: Sinus Rhythm Rhythm change?: N Notified?: William Montoya MD Response: Message left await call Latest José Fall Score: 75 Fall Risk: High Risk Safety Measures: Call light Within Reach, Bed Alarm Zone 1, Side Rails Side Rails x3, Bed position Low and Locked. Fall Precautions: Yellow Socks Yellow Gown Door Sign Patient Fall Education Report given to BLANE Stockton. The patient is stable at this time. Endorsed plan of care. Addendum: 08/30/20 at 2006 by Robles Green RN BLANE Lao.
--- NOTE | 2020-08-30 19:30 | NUR ---
NURSE NOTES: Received pt in bed, asleep, on vent via trach not showing any signs of distress @ present settings. Tube feeding running @ 45cc/hr via NG tube on right with no residuals noted. D5W nsfusing at 100cc/hr via LFA # 20. FC [address] draining yellow urine. VSS and pt is SR on the monitor.
--- NOTE | 2020-08-30 19:34 | Cardiology Progress Note ---
Subjective DATE OF SERVICE: Aug 30, 2020 Remains on vent via trach; O2 requirements remain high. BP readings stabilizing. Monitor: sinus rhythm with paroxysms of atrial fibrillation. Rising Na levels and renal parameters persist even on hypotonic IVF. Venous Duplex: occluded cephalic vein associated with PICC access Objective Last 24 Hour Vital Signs Date Time Temp Pulse Resp B/P (MAP) Pulse Ox O2 Delivery O2 Flow Rate FiO2 08/30/20 16:00 97.3 90 20 119/67 (84) 100 08/30/20 16:00 60 08/30/20 16:00 90 08/30/20 15:00 84 27 60 08/30/20 12:00 60 08/30/20 12:00 80 08/30/20 12:00 97.5 68 20 109/52 (71) 100 08/30/20 12:00 Mechanical Ventilator 08/30/20 10:30 83 33 60 08/30/20 09:53 74 115/68 08/30/20 08:00 Mechanical Ventilator 08/30/20 08:00 97.5 70 20 116/58 (77) 100 08/30/20 08:00 65 08/30/20 08:00 60 08/30/20 07:15 66 23 60 08/30/20 04:00 Mechanical Ventilator 08/30/20 04:00 97.9 64 21 116/53 (74) 100 08/30/20 04:00 60 08/30/20 03:46 65 23 60 08/30/20 03:41 66 08/30/20 00:00 98.1 75 28 132/75 (94) 97 08/30/20 00:00 75 08/30/20 00:00 60 08/30/20 00:00 Mechanical Ventilator 08/29/20 23:58 68 20 60 08/29/20 22:06 74 26 132/74 96 08/29/20 21:06 73 137/72 08/29/20 20:00 75 08/29/20 20:00 Mechanical Ventilator 08/29/20 20:00 60 08/29/20 20:00 98.1 88 26 137/72 (93) 96 ROS: unchanged from my evaluation of 08/02/20 HEENT: Mechanically Ventilated, Thin Trach secretions RHYTHM: NSR, PACs, Afib LUNGS: bilateral rhonchi CARDIAC: normal S1 and S2, irregularly irregular, systolic murmur - 1/6 systolic murmurat apex, rapid rate ABDOMEN: normal bowel sounds, non tender, soft, no organomegaly, other - NGTube EXTREMITIES: normal range of motion, trace edema Laboratory Tests Test 08/30/20 11:00 08/30/20 11:40 White Blood Count 13.5 K/UL (4.8-10.8) H Red Blood Count 2.74 M/UL (4.70-6.10) L Hemoglobin 8.1 G/DL (14.2-18.0) L Hematocrit 24.4 % (42.0-52.0) L Mean Corpuscular Volume 89 FL (80-99) Mean Corpuscular Hemoglobin 29.7 PG (27.0-31.0) Mean Corpuscular Hemoglobin Concent 33.4 G/DL (32.0-36.0) Red Cell Distribution Width 14.2 % (11.6-14.8) Platelet Count 88 K/UL (150-450) L Mean Platelet Volume 10.8 FL (6.5-10.1) H Neutrophils (%) (Auto) % (45.0-75.0) Lymphocytes (%) (Auto) % (20.0-45.0) Monocytes (%) (Auto) % (1.0-10.0) Eosinophils (%) (Auto) % (0.0-3.0) Basophils (%) (Auto) % (0.0-2.0) Differential Total Cells Counted 100 Neutrophils % (Manual) 93 % (45-75) H Lymphocytes % (Manual) 3 % (20-45) L Monocytes % (Manual) 2 % (1-10) Eosinophils % (Manual) 2 % (0-3) Basophils % (Manual) 0 % (0-2) Band Neutrophils 0 % (0-8) Platelet Estimate Decreased L Platelet Morphology Normal Anisocytosis 1+ Sodium Level 151 MMOL/L (136-145) H Potassium Level 3.8 MMOL/L (3.5-5.1) Chloride Level 118 MMOL/L (98-107) H Carbon Dioxide Level 27 MMOL/L (21-32) Anion Gap 6 mmol/L (5-15) Blood Urea Nitrogen 52 mg/dL (7-18) H Creatinine 1.7 MG/DL (0.55-1.30) H Estimat Glomerular Filtration Rate 38.2 mL/min (>60) Glucose Level 188 MG/DL (74-106) H Calcium Level 7.7 MG/DL (8.5-10.1) L Assessment/Plan Assessment/Plan Status post uncomplicated trach. Paroxysmal atrial fibrillation with RVR Acute myocardial ischemia with elevated troponin Aspiration risk Sepsis Healthcare acquired PNA Complicated UTI with indwelling catheter Hyponatremia Severe protein calorie malnutrition Acute myocardial ischemia Respiratory failure with hypoxia and hypercarbia - now on mech ventilation Hypokalemia Leukocytosis improving Ac/chronic diastolic CHF Dehydration/hypernatremia Hypokalemia Acute renal failure Occluded left cephalic vein CRITICAL & GUARDED Trach care Antimicrobials per ID Vent support NGTube feedings advanced, with PEG planned - GI called. DVT prophylaxis Continue amiodarone; advance dose for additional loading. Titrate anti-HTN regimen as needed. Increase hypotonic IVF hydration; replace potassium and magnesium as needed. Sarkis Herman MD Aug 30, 2020 19:34
[2020-08-30 20:00] VITALS: BP 119/67
[2020-08-31] VITALS: BP 100/55
--- NOTE | 2020-08-31 | NUR ---
NURSE NOTES: Pt remains stable with stable VS. Pt repositioned for comfort. Pt remains SR on the monitor.
[2020-08-31] MEDS: LORazepam Inj 2mg/ml 1ml IV PRN (03:58)
[2020-08-31 04:00] VITALS: BP 115/70
--- NOTE | 2020-08-31 04:30 | NUR ---
NURSE NOTES: Pt remains stable with stable VS. AM care given and pt repositioned for comfort. Pt remains SR on the monitor.
--- NOTE | 2020-08-31 07:30 | NUR ---
NURSE NOTES: Received patient from LBANE Dang. Patient is asleep in bed, opens eyes no tracking. Sinus rhythm on the monitor. trach to vent on prescribed settings, tolerating well. NGT on the right nare and tube feeding running at prescribed rate, tolerating well. LFA 20G running D5W 100ml/hr. bed to lowest position and locked, call light within easy reach. Will continue plan of care.
--- NOTE | 2020-08-31 07:33 | NUR ---
NURSE NOTES: HAND-OFF: Report given to BLANE Bravo.
[2020-08-31 07:56] LABS: ALBUMIN 0.8 G/DL (3.4-5.0); ALBUMIN/GLOBULIN RATIO 0.2 (1.0-2.7); BILIRUBIN,TOTAL 0.3 MG/DL (0.2-1.0); CALCIUM 8.1 MG/DL (8.5-10.1); CREATININE 1.5 MG/DL (0.55-1.30); POTASSIUM 4.1 MMOL/L (3.5-5.1)
[2020-08-31 08:00] VITALS: BP 118/63
[2020-08-31] MEDS: Levodopa/Carbidopa 25/100 tab NG SCH ×3 (08:33→17:35)
[2020-08-31] MEDS: Amiodarone 200mg tab NG SCH ×2 (08:33→17:35)
--- NOTE | 2020-08-31 08:58 | Pulmonology Progress Note ---
Subjective ROS Limited/Unobtainable: Yes Constitutional: Denies: fever Allergies: Coded Allergies: VANCOMYCIN (Verified Allergy, Severe, hive, 08/27/20) All Systems: reviewed and negative except above Subjective care noted on vent trach placed poor LOC weekend events reviewed Objective Last 24 Hour Vital Signs Date Time Temp Pulse Resp B/P (MAP) Pulse Ox O2 Delivery O2 Flow Rate FiO2 08/31/20 08:33 71 118/63 08/31/20 04:28 73 26 111/56 99 08/31/20 04:00 Mechanical Ventilator 08/31/20 04:00 60 08/31/20 04:00 98.2 75 30 115/70 (85) 97 08/31/20 04:00 78 08/31/20 03:58 78 35 121/60 95 08/31/20 03:24 75 26 60 08/31/20 00:00 71 08/31/20 00:00 97.9 68 28 100/55 (70) 95 08/31/20 00:00 Mechanical Ventilator 08/30/20 23:17 69 32 60 08/30/20 20:35 78 119/67 08/30/20 20:00 60 08/30/20 20:00 75 08/30/20 20:00 Mechanical Ventilator 08/30/20 20:00 97.7 78 24 119/67 (84) 100 08/30/20 19:30 85 25 60 08/30/20 16:00 97.3 90 20 119/67 (84) 100 08/30/20 16:00 Mechanical Ventilator 08/30/20 16:00 60 08/30/20 16:00 90 08/30/20 15:00 84 27 60 08/30/20 12:00 60 08/30/20 12:00 80 08/30/20 12:00 97.5 68 20 109/52 (71) 100 08/30/20 12:00 Mechanical Ventilator 08/30/20 10:30 83 33 60 08/30/20 09:53 74 115/68 Intake and Output 08/30/20 08/31/20 19:02 07:02 Intake Total 740 ml 1495 ml Output Total 600 ml 300 ml Balance 140 ml 1195 ml Free Water 100 ml IV Total 100 ml 1000 ml Tube Feeding 540 ml 495 ml Output Urine Total 600 ml 300 ml # Bowel Movements 1 1 Objective WDWN NAD reduced breath sounds bilaterally with scattered rhonchi [id number] NABS nontender no CCE nonfocal trach in place poorly responsive Laboratory Tests 08/30/20 11:00: White Blood Count 13.5H, Red Blood Count 2.74L, Hemoglobin 8.1L, Hematocrit 24.4L, Mean Corpuscular Volume 89, Mean Corpuscular Hemoglobin 29.7, Mean Corpuscular Hemoglobin Concent 33.4, Red Cell Distribution Width 14.2, Platelet Count 88L, Mean Platelet Volume 10.8H, Neutrophils (%) (Auto) , Lymphocytes (%) (Auto) , Monocytes (%) (Auto) , Eosinophils (%) (Auto) , Basophils (%) (Auto) , Differential Total Cells Counted 100, Neutrophils % (Manual) 93H, Lymphocytes % (Manual) 3L, Monocytes % (Manual) 2, Eosinophils % (Manual) 2, Basophils % (Manual) 0, Band Neutrophils 0, Platelet Estimate DecreasedL, Platelet Morphology Normal, Anisocytosis 1+ 08/30/20 11:40: Sodium Level 151H, Potassium Level 3.8, Chloride Level 118H, Carbon Dioxide Level 27, Anion Gap 6, Blood Urea Nitrogen 52H, Creatinine 1.7H, Estimat Glomerular Filtration Rate 38.2, Glucose Level 188H, Calcium Level 7.7L 08/31/20 04:05: Sodium Level 146H, Potassium Level 4.1, Chloride Level 115H, Carbon Dioxide Level 28, Anion Gap 3L, Blood Urea Nitrogen 47H, Creatinine 1.5H, Estimat Glomerular Filtration Rate 44.2, Glucose Level 168H, Calcium Level 8.1L, Total Bilirubin 0.3, Aspartate Amino Transf (AST/SGOT) 24, Alanine Aminotransferase (ALT/SGPT) 11L, Alkaline Phosphatase 132H, Total Protein 4.8L, Albumin 0.8L, Globulin 4.0, Albumin/Globulin Ratio 0.2L Current Medications Medications (Trade) Dose Ordered Sig/Javon Route PRN Reason Start Time Stop Time Status Last Admin Dose Admin Acetaminophen (Tylenol) 650 mg Q4H PRN ORAL Mild Pain (Pain Scale 1-3) 08/03/20 01:15 09/02/20 01:14 08/23/20 08:21 Acetaminophen (Tylenol) 650 mg Q4H PRN RECTAL Mild Pain (Pain Scale 1-3) 08/03/20 01:15 09/02/20 01:14 08/04/20 18:32 Amiodarone HCl (Cordarone) 200 mg BID NG 08/29/20 09:00 11/15/20 08:59 08/31/20 08:33 Carbidopa/Levodopa (Sinemet 25/100) 1 tab THREE TIMES A DAY NG 08/09/20 18:00 09/02/20 08:59 08/31/20 08:33 Dextrose 1,000 ml @ 100 mls/hr Q10H IV 08/30/20 02:00 09/29/20 01:59 08/31/20 00:58 Heparin Sodium (Porcine) (Heparin 5000 units/ml) 5,000 units EVERY 12 HOURS SUBQ 08/03/20 09:00 09/17/20 08:59 08/25/20 20:29 Hydralazine HCl (Apresoline) 25 mg Q6H PRN NG SBP above 160 08/11/20 22:30 11/05/20 00:29 08/12/20 15:09 Lansoprazole (Prevacid) 30 mg DAILY NG 08/30/20 09:00 09/29/20 08:59 08/31/20 08:32 Lorazepam (Ativan 2mg/ml 1ml) 1 mg Q4H PRN IV For Anxiety 08/25/20 06:00 09/01/20 05:59 08/31/20 03:58 Magnesium Hydroxide (Mom) 30 ml DAILYPRN PRN GT Constipation 08/12/20 09:00 09/11/20 08:59 Metoclopramide HCl (Reglan) 5 mg Q8H PRN IVP Nausea & Vomiting 08/15/20 13:00 09/14/20 12:59 Metoprolol Tartrate (Lopressor) 25 mg Q12HR NG 08/13/20 09:00 11/11/20 08:59 08/31/20 08:33 Assessment/Plan Assessment/Plan ASSESSMENT: chronic encephalopathy, dementia, diffuse infiltrates, elevated BNP hypertension, recurrent falls, and urinary tract infection, hypoxemia, probable aspiration pneumonia. acute respiratory failure hypoxemic s/p trach PLAN care noted taper fio2- as able respiratory care as is- monitor acid base vent support as is full for now monitor imaging for change suction off load trach care GT Full code for now per family nutrition DVT prophylaxis skin care position change impression, plan, and exam edited and reviewed in detail care discussed with Eriberto Gilliland MD Aug 31, 2020 08:58
[2020-08-31] MEDS: Heparin 5000 units/ml inj SUBQ SCH ×2 (09:00→20:29)
[2020-08-31 12:00] VITALS: BP 120/65
--- NOTE | 2020-08-31 12:01 | Infectious Diseases Prog Note ---
Assessment/Plan Assessment/Plan antibiotics : none A 1. Right-sided pneumonia s/p rx 2. COVID-19 test is negative. 3. Urinary tract infection s/p rx 4. Hypertension. 5. Dementia. 6. Respiratory failure s/p tracheostomy 7. leucocytosis improving 8. renal failure P 1. observe off antibiotics Subjective ROS Limited/Unobtainable: Yes Allergies: Coded Allergies: VANCOMYCIN (Verified Allergy, Severe, hive, 08/27/20) Objective Last 24 Hour Vital Signs Date Time Temp Pulse Resp B/P (MAP) Pulse Ox O2 Delivery O2 Flow Rate FiO2 08/31/20 09:00 60 08/31/20 08:33 71 118/63 08/31/20 08:00 Mechanical Ventilator 08/31/20 08:00 98.6 71 27 118/63 (81) 99 08/31/20 08:00 72 08/31/20 07:15 68 31 60 08/31/20 04:28 73 26 111/56 99 08/31/20 04:00 Mechanical Ventilator 08/31/20 04:00 60 08/31/20 04:00 98.2 75 30 115/70 (85) 97 08/31/20 04:00 78 08/31/20 03:58 78 35 121/60 95 08/31/20 03:24 75 26 60 08/31/20 00:00 71 08/31/20 00:00 97.9 68 28 100/55 (70) 95 08/31/20 00:00 Mechanical Ventilator 08/30/20 23:17 69 32 60 08/30/20 20:35 78 119/67 08/30/20 20:00 60 08/30/20 20:00 75 08/30/20 20:00 Mechanical Ventilator 08/30/20 20:00 97.7 78 24 119/67 (84) 100 08/30/20 19:30 85 25 60 08/30/20 16:00 97.3 90 20 119/67 (84) 100 08/30/20 16:00 Mechanical Ventilator 08/30/20 16:00 60 08/30/20 16:00 90 08/30/20 15:00 84 27 60 Height (Feet): 5 Height (Inches): 5.00 Weight (Pounds): 136 HEENT: status post trach Respiratory/Chest: lungs clear Cardiovascular: normal rate, regular rhythm, no gallop/murmur Abdomen: soft, non tender Extremities: no edema Laboratory Tests Test 08/31/20 04:05 Sodium Level 146 MMOL/L (136-145) H Potassium Level 4.1 MMOL/L (3.5-5.1) Chloride Level 115 MMOL/L (98-107) H Carbon Dioxide Level 28 MMOL/L (21-32) Anion Gap 3 mmol/L (5-15) L Blood Urea Nitrogen 47 mg/dL (7-18) H Creatinine 1.5 MG/DL (0.55-1.30) H Estimat Glomerular Filtration Rate 44.2 mL/min (>60) Glucose Level 168 MG/DL (74-106) H Calcium Level 8.1 MG/DL (8.5-10.1) L Total Bilirubin 0.3 MG/DL (0.2-1.0) Aspartate Amino Transf (AST/SGOT) 24 U/L (15-37) Alanine Aminotransferase (ALT/SGPT) 11 U/L (12-78) L Alkaline Phosphatase 132 U/L (46-116) H Total Protein 4.8 G/DL (6.4-8.2) L Albumin 0.8 G/DL (3.4-5.0) L Globulin 4.0 g/dL Albumin/Globulin Ratio 0.2 (1.0-2.7) L Current Medications Medications (Trade) Dose Ordered Sig/Javon Route PRN Reason Start Time Stop Time Status Last Admin Dose Admin Acetaminophen (Tylenol) 650 mg Q4H PRN ORAL Mild Pain (Pain Scale 1-3) 08/03/20 01:15 09/02/20 01:14 08/23/20 08:21 Acetaminophen (Tylenol) 650 mg Q4H PRN RECTAL Mild Pain (Pain Scale 1-3) 08/03/20 01:15 09/02/20 01:14 08/04/20 18:32 Amiodarone HCl (Cordarone) 200 mg BID NG 08/29/20 09:00 11/15/20 08:59 08/31/20 08:33 Carbidopa/Levodopa (Sinemet 25/100) 1 tab THREE TIMES A DAY NG 08/09/20 18:00 09/02/20 08:59 08/31/20 08:33 Dextrose 1,000 ml @ 100 mls/hr Q10H IV 08/30/20 02:00 09/29/20 01:59 08/31/20 11:53 Heparin Sodium (Porcine) (Heparin 5000 units/ml) 5,000 units EVERY 12 HOURS SUBQ 08/03/20 09:00 09/17/20 08:59 08/25/20 20:29 Hydralazine HCl (Apresoline) 25 mg Q6H PRN NG SBP above 160 08/11/20 22:30 11/05/20 00:29 08/12/20 15:09 Lansoprazole (Prevacid) 30 mg DAILY NG 08/30/20 09:00 09/29/20 08:59 08/31/20 08:32 Lorazepam (Ativan 2mg/ml 1ml) 1 mg Q4H PRN IV For Anxiety 08/25/20 06:00 09/01/20 05:59 08/31/20 03:58 Magnesium Hydroxide (Mom) 30 ml DAILYPRN PRN GT Constipation 08/12/20 09:00 09/11/20 08:59 Metoclopramide HCl (Reglan) 5 mg Q8H PRN IVP Nausea & Vomiting 08/15/20 13:00 09/14/20 12:59 Metoprolol Tartrate (Lopressor) 25 mg Q12HR NG 08/13/20 09:00 11/11/20 08:59 08/31/20 08:33 Wagner Christensen MD Aug 31, 2020 12:01
[2020-08-31 16:00] VITALS: BP 126/60
--- NOTE | 2020-08-31 16:09 | Surgery Progress Note ---
Surgery Progress Note Subjective Procedure Performed trach Additional Comments labs noted h/h noted repeat in AM not responsive Objective Last 24 Hour Vital Signs Date Time Temp Pulse Resp B/P (MAP) Pulse Ox O2 Delivery O2 Flow Rate FiO2 08/31/20 16:00 98.2 66 38 126/60 (82) 97 08/31/20 12:00 Mechanical Ventilator 08/31/20 12:00 60 08/31/20 09:00 60 08/31/20 08:33 71 118/63 08/31/20 08:00 Mechanical Ventilator 08/31/20 08:00 98.6 71 27 118/63 (81) 99 08/31/20 08:00 72 08/31/20 07:15 68 31 60 08/31/20 04:28 73 26 111/56 99 08/31/20 04:00 Mechanical Ventilator 08/31/20 04:00 60 08/31/20 04:00 98.2 75 30 115/70 (85) 97 08/31/20 04:00 78 08/31/20 03:58 78 35 121/60 95 08/31/20 03:24 75 26 60 08/31/20 00:00 71 08/31/20 00:00 97.9 68 28 100/55 (70) 95 08/31/20 00:00 Mechanical Ventilator 08/30/20 23:17 69 32 60 08/30/20 20:35 78 119/67 08/30/20 20:00 60 08/30/20 20:00 75 08/30/20 20:00 Mechanical Ventilator 08/30/20 20:00 97.7 78 24 119/67 (84) 100 08/30/20 19:30 85 25 60 I&O Intake and Output 08/30/20 08/31/20 19:00 07:00 Intake Total 740 ml 1595 ml Output Total 600 ml 300 ml Balance 140 ml 1295 ml Free Water 100 ml IV Total 100 ml 1100 ml Tube Feeding 540 ml 495 ml Output Urine Total 600 ml 300 ml # Bowel Movements 1 1 Dressing: saturated Cardiovascular: RSR Respiratory: decreased breath sounds Abdomen: non-tender, present bowel sounds Extremities: no tenderness, no cyanosis Laboratory Tests Test 08/31/20 04:05 Sodium Level 146 MMOL/L (136-145) H Potassium Level 4.1 MMOL/L (3.5-5.1) Chloride Level 115 MMOL/L (98-107) H Carbon Dioxide Level 28 MMOL/L (21-32) Anion Gap 3 mmol/L (5-15) L Blood Urea Nitrogen 47 mg/dL (7-18) H Creatinine 1.5 MG/DL (0.55-1.30) H Estimat Glomerular Filtration Rate 44.2 mL/min (>60) Glucose Level 168 MG/DL (74-106) H Calcium Level 8.1 MG/DL (8.5-10.1) L Total Bilirubin 0.3 MG/DL (0.2-1.0) Aspartate Amino Transf (AST/SGOT) 24 U/L (15-37) Alanine Aminotransferase (ALT/SGPT) 11 U/L (12-78) L Alkaline Phosphatase 132 U/L (46-116) H Total Protein 4.8 G/DL (6.4-8.2) L Albumin 0.8 G/DL (3.4-5.0) L Globulin 4.0 g/dL Albumin/Globulin Ratio 0.2 (1.0-2.7) L Plan Problems: (1) Pneumonia (2) Hypoxia (3) Sepsis Assessment & Plan: respiratory insufficiency prolonged ventilatory support failed weaning trials weaning vent as much as possible anticipate prolong vent support trach indicated and recommended will obtain consent plan for trach as able to wean thank you cont weaning will follow with recs s/p trach wean sedation wean vent no active bleeding noted h/h noted trend labs (4) UTI (urinary tract infection) (5) Pneumonia (6) AMS (altered mental status) Isaias Loaiza Aug 31, 2020 16:09
--- NOTE | 2020-08-31 16:34 | NUR ---
LOG HAUL CHAIN FEEDERJOCKEY'S AGENT SI: RESP FAILURE TRACH/VENT DEPENDENT,SEPSIS T. 98.2 HR 66 RR 38 B/P 126/60 AC 20 TV 500 FIO2 60% PEEP 5 IS: IVF D5 @ 100ML/HR REGLAN IV STEP DOWN STATUS
--- NOTE | 2020-08-31 19:20 | NUR ---
NURSE HAND-OFF REPORT: Important Events on Shift: n/a Patient Status: FULL CODE Diet: osmolite 1.5 Pending Orders: [] Pending Results/Labs:[] Pending MD notification:[] Latest Vital Signs: Temperature 98.2 , Pulse 69 , B/P 126 /60 , Respiratory Rate 33 , O2 SAT 97 , Mechanical Ventilator, O2 Flow Rate 60.0 . Vital Sign Comment: stable EKG Rhythm: Sinus Rhythm Rhythm change?: N Notified?: William Montoya MD Response: Message left await call Latest José Fall Score: 75 Fall Risk: High Risk Safety Measures: Call light Within Reach, Bed Alarm Zone 1, Side Rails Side Rails x3, Bed position Low and Locked. Fall Precautions: Yellow Socks Yellow Gown Door Sign Patient Fall Education Report given to BLANE Caban.
--- NOTE | 2020-08-31 19:25 | NUR ---
NURSE NOTES: Received report from Lawrence RN, pt. in bed awake, with eyes open- non-verbal, no signs or symptoms of acute cardiac or respiratory distress noted, bed alarm on, side rails up x's 3 and safety brakes engaged, call light within easy reach, pt. appears to be sating well on current vent settings at 99%- AC 20, TV 500, fio2 at80% and peep of 7- no distress noted, pt. has right NGT feeding Osmolite 1.5 running at 45cc/hr- no residual noted, Overton intact and draining to gravity, pt. remains clean and dry, RFA 20G IV intact and patent, LFA 20G D5W running at 100cc/hr- IV intact and patent, HOB elevated- aspiration precautions observed, aspiration precautions observed, safety measures continued, will continue with plan of care.
--- NOTE | 2020-08-31 19:39 | General Progress Note ---
Subjective Allergies: Coded Allergies: VANCOMYCIN (Verified Allergy, Severe, hive, 08/27/20) Objective Last 24 Hour Vital Signs Date Time Temp Pulse Resp B/P (MAP) Pulse Ox O2 Delivery O2 Flow Rate FiO2 08/31/20 18:58 69 33 80 08/31/20 16:22 80 08/31/20 16:00 82 08/31/20 16:00 98.2 66 38 126/60 (82) 97 08/31/20 16:00 Mechanical Ventilator 08/31/20 16:00 60 08/31/20 15:15 73 28 60 08/31/20 12:00 98.0 70 25 120/65 (83) 99 08/31/20 12:00 64 08/31/20 12:00 Mechanical Ventilator 08/31/20 12:00 60 08/31/20 11:15 65 28 60 08/31/20 09:00 60 08/31/20 08:33 71 118/63 08/31/20 08:00 Mechanical Ventilator 08/31/20 08:00 98.6 71 27 118/63 (81) 99 08/31/20 08:00 72 08/31/20 07:15 68 31 60 08/31/20 04:28 73 26 111/56 99 08/31/20 04:00 Mechanical Ventilator 08/31/20 04:00 60 08/31/20 04:00 98.2 75 30 115/70 (85) 97 08/31/20 04:00 78 08/31/20 03:58 78 35 121/60 95 08/31/20 03:24 75 26 60 08/31/20 00:00 71 08/31/20 00:00 97.9 68 28 100/55 (70) 95 08/31/20 00:00 Mechanical Ventilator 08/30/20 23:17 69 32 60 08/30/20 20:35 78 119/67 08/30/20 20:00 60 08/30/20 20:00 75 08/30/20 20:00 Mechanical Ventilator 08/30/20 20:00 97.7 78 24 119/67 (84) 100 Intake and Output 08/30/20 08/31/20 19:00 07:00 Intake Total 740 ml 1640 ml Output Total 600 ml 300 ml Balance 140 ml 1340 ml Free Water 100 ml IV Total 100 ml 1100 ml Tube Feeding 540 ml 540 ml Output Urine Total 600 ml 300 ml # Bowel Movements 1 1 Laboratory Tests 08/31/20 04:05: Sodium Level 146H, Potassium Level 4.1, Chloride Level 115H, Carbon Dioxide Level 28, Anion Gap 3L, Blood Urea Nitrogen 47H, Creatinine 1.5H, Estimat Glomerular Filtration Rate 44.2, Glucose Level 168H, Calcium Level 8.1L, Total Bilirubin 0.3, Aspartate Amino Transf (AST/SGOT) 24, Alanine Aminotransferase (ALT/SGPT) 11L, Alkaline Phosphatase 132H, Total Protein 4.8L, Albumin 0.8L, Globulin 4.0, Albumin/Globulin Ratio 0.2L Height (Feet): 5 Height (Inches): 5.00 Weight (Pounds): 136 Assessment/Plan Status: stable, not improved Assessment/Plan: GI CONSULT Dictated Will place PEG in am H&H and platelets drifting down - will recheck tonight Thank you Arely Verde MD Aug 31, 2020 19:39
--- NOTE | 2020-08-31 19:45 | NUR ---
NURSE NOTES: called Granddaughter Ruth and got consent over the phone for EGD procedure in am- okay for procedure- Made DR. Parks aware.
[2020-08-31 20:00] VITALS: BP 122/65
--- NOTE | 2020-08-31 20:31 | Consultation ---
DATE OF CONSULTATION: 08/31/2020 GASTROENTEROLOGY CONSULTATION CONSULTING PHYSICIAN: Arely Parks M.D. CHIEF COMPLAINT: I was asked to see this patient by Dr. Chavez Gilmore and Dr. Sarkis Herman for placement of the gastrostomy tube. HISTORY OF PRESENT ILLNESS: The patient is an 89-year-old man with multiple medical problems, who has been admitted to the hospital and has had a prolonged hospital course. During his hospital course, he was found to have respiratory failure, which eventually required a tracheostomy catheter. He is also confused and being fed by nasogastric tube and therefore this consultation was generated. The patient himself is unable to provide any history and most of the information is available from the chart and discussion with the patient's granddaughter. PAST MEDICAL HISTORY: History of hypertension, dementia, recurrent urinary tract infections, falls, respiratory failure, status post gastrostomy tube placement, anemia, dysphagia. FAMILY HISTORY: Noncontributory and unobtainable. SOCIAL HISTORY: The patient is from a long-term and does not have any history of smoking or drinking. ALLERGIES: Vancomycin. REVIEW OF SYSTEMS: Otherwise negative. PHYSICAL EXAMINATION: GENERAL: Debilitated elderly man, seen in his room. HEENT: Normocephalic and atraumatic. Tracheostomy cath was in place. CHEST: Revealed coarse breath sounds. CARDIOVASCULAR: Revealed a regular rate. ABDOMEN: Soft. Good bowel sounds. There is some degree of truncal edema. EXTREMITIES: Revealed no edema. LABORATORY DATA: Noted. ASSESSMENT: This patient presents with respiratory failure requiring tracheostomy. The patient is being fed by nasogastric tube, was obvious and needs a gastrostomy tube for long-term management. In addition, I have noticed hemoglobin and platelet counts were both declining. The hemoglobin may be diluted by the hydration, which is being given appropriately. However, the platelet count may have other causes and may require investigation if it drops further. I would check the levels tonight before the procedure, which is planned for tomorrow. The indications, risks, alternatives, and possible complications of the planned procedure were explained to the patient's granddaughter and informed consent was obtained. RECOMMENDATIONS: 1. Continue tube feeding. 2. Check CBC and platelet count tonight. 3. Endoscopy with gastrostomy tube placement tomorrow. Thank you for asking me to participate in the care of this patient. Aerly Parks M.D. DR: CHERRY JOB#: [id number] CC:
--- NOTE | 2020-08-31 21:30 | Cardiology Progress Note ---
Subjective DATE OF SERVICE: Aug 31, 2020 Remains on vent via trach; O2 requirements remain high. BP readings stable Monitor: sinus rhythm with paroxysms of atrial fibrillation. Na levels and renal parameters slowly normalizing on hypotonic IVF. Venous Duplex: occluded cephalic vein associated with PICC access Objective Last 24 Hour Vital Signs Date Time Temp Pulse Resp B/P (MAP) Pulse Ox O2 Delivery O2 Flow Rate FiO2 08/31/20 20:32 76 122/65 08/31/20 18:58 69 33 80 08/31/20 16:22 80 08/31/20 16:00 82 08/31/20 16:00 98.2 66 38 126/60 (82) 97 08/31/20 16:00 Mechanical Ventilator 08/31/20 16:00 60 08/31/20 15:15 73 28 60 08/31/20 12:00 98.0 70 25 120/65 (83) 99 08/31/20 12:00 64 08/31/20 12:00 Mechanical Ventilator 08/31/20 12:00 60 08/31/20 11:15 65 28 60 08/31/20 09:00 60 08/31/20 08:33 71 118/63 08/31/20 08:00 Mechanical Ventilator 08/31/20 08:00 98.6 71 27 118/63 (81) 99 08/31/20 08:00 72 08/31/20 07:15 68 31 60 08/31/20 04:28 73 26 111/56 99 08/31/20 04:00 Mechanical Ventilator 08/31/20 04:00 60 08/31/20 04:00 98.2 75 30 115/70 (85) 97 08/31/20 04:00 78 08/31/20 03:58 78 35 121/60 95 08/31/20 03:24 75 26 60 08/31/20 00:00 71 08/31/20 00:00 97.9 68 28 100/55 (70) 95 08/31/20 00:00 Mechanical Ventilator 08/30/20 23:17 69 32 60 ROS: unchanged from my evaluation of 08/02/20 HEENT: Mechanically Ventilated, Thin Trach secretions RHYTHM: NSR, PACs, Afib LUNGS: bilateral rhonchi CARDIAC: normal S1 and S2, irregularly irregular, systolic murmur - 1/6 systolic murmurat apex, rapid rate ABDOMEN: normal bowel sounds, non tender, soft, no organomegaly, other - NGTube EXTREMITIES: normal range of motion, trace edema Laboratory Tests Test 08/31/20 04:05 Sodium Level 146 MMOL/L (136-145) H Potassium Level 4.1 MMOL/L (3.5-5.1) Chloride Level 115 MMOL/L (98-107) H Carbon Dioxide Level 28 MMOL/L (21-32) Anion Gap 3 mmol/L (5-15) L Blood Urea Nitrogen 47 mg/dL (7-18) H Creatinine 1.5 MG/DL (0.55-1.30) H Estimat Glomerular Filtration Rate 44.2 mL/min (>60) Glucose Level 168 MG/DL (74-106) H Calcium Level 8.1 MG/DL (8.5-10.1) L Total Bilirubin 0.3 MG/DL (0.2-1.0) Aspartate Amino Transf (AST/SGOT) 24 U/L (15-37) Alanine Aminotransferase (ALT/SGPT) 11 U/L (12-78) L Alkaline Phosphatase 132 U/L (46-116) H Total Protein 4.8 G/DL (6.4-8.2) L Albumin 0.8 G/DL (3.4-5.0) L Globulin 4.0 g/dL Albumin/Globulin Ratio 0.2 (1.0-2.7) L Assessment/Plan Assessment/Plan Status post uncomplicated trach. Paroxysmal atrial fibrillation with RVR Acute myocardial ischemia with elevated troponin Aspiration risk Sepsis Healthcare acquired PNA Complicated UTI with indwelling catheter Hyponatremia Severe protein calorie malnutrition Acute myocardial ischemia Respiratory failure with hypoxia and hypercarbia - now on mech ventilation Hypokalemia Leukocytosis improving Ac/chronic diastolic CHF Dehydration/hypernatremia improving Hypokalemia Acute renal failure Occluded left cephalic vein Stable for PEG from cardiovasc standpoint Trach care Antimicrobials per ID Vent support NGTube feedings advanced, with PEG planned tomorrow. DVT prophylaxis Continue amiodarone; advance dose for additional loading. Titrate anti-HTN regimen as needed. Continue hypotonic IVF hydration; replace potassium and magnesium as needed. Sarkis Herman MD Aug 31, 2020 21:30
[2020-08-31 21:37] LABS: HEMATOCRIT 24.6 % (42.0-52.0); HEMOGLOBIN 8.3 G/DL (14.2-18.0); MEAN CORPUSCULAR VOLUME 90 FL (80-99); PLATELET COUNT 94 K/UL (150-450); RED BLOOD COUNT 2.75 M/UL (4.70-6.10); RED CELL DISTRIBUTION WIDTH 14.3 % (11.6-14.8); WHITE BLOOD COUNT 17.7 K/UL (4.8-10.8)
--- NOTE | 2020-08-31 21:49 | NUR ---
NURSE NOTES: DR. Hernandez ordered CBC- called him and made him aware of Platelets and H/H lab results- okay to keep NPO at midnight for EGD in am.
[2020-08-31] MEDS ORDERED: Sterile Water Irrig 1000ml IRRIG ONE (21:55)
[2020-08-31] MEDS ORDERED: NS 275ml ONE (21:55)
[2020-08-31] MEDS ORDERED: Tubing IV Secondary IV ONE (21:55)
[2020-09-01] VITALS: BP 115/63
--- NOTE | 2020-09-01 01:13 | NUR ---
NURSE NOTES: bed bath given and linens changed- oral care provided, pt. appears to be sating well on current vent settings at 100%- no distress noted- aspiration precautions continued- HOB elevated, will continue to monitor pt. and with plan of care.
[2020-09-01 04:00] VITALS: BP 139/63
[2020-09-01 04:58] LABS: HEMATOCRIT 27.6 % (42.0-52.0); HEMOGLOBIN 9.2 G/DL (14.2-18.0); MEAN CORPUSCULAR VOLUME 91 FL (80-99); PLATELET COUNT 106 K/UL (150-450); RED BLOOD COUNT 3.02 M/UL (4.70-6.10); RED CELL DISTRIBUTION WIDTH 13.7 % (11.6-14.8); WHITE BLOOD COUNT 20.7 K/UL (4.8-10.8)
[2020-09-01] MEDS ORDERED: ceFAZolin sod 1 GM in D5W 55 ML IVPB ONE (05:30)
[2020-09-01 05:46] LABS: CALCIUM 7.5 MG/DL (8.5-10.1); CREATININE 1.4 MG/DL (0.55-1.30); POTASSIUM 4.3 MMOL/L (3.5-5.1)
--- NOTE | 2020-09-01 06:55 | NUR ---
NURSE HAND-OFF REPORT: Important Events on Shift:none Patient Status: fair Diet: NPO for EGD Pending Orders: Pending Results/Labs: Pending MD notification: Latest Vital Signs: Temperature 97.5 , Pulse 72 , B/P 139 /63 , Respiratory Rate 25 , O2 SAT 100 , Mechanical Ventilator, O2 Flow Rate 60.0 . Vital Sign Comment: EKG Rhythm: Sinus Rhythm Rhythm change?: N MD Notified?: MD Response: Latest Jsoé Fall Score: 75 Fall Risk: High Risk Safety Measures: Call light Within Reach, Bed Alarm Zone 1, Side Rails Side Rails x3, Bed position Low and Locked. Fall Precautions: Yellow Socks Yellow Gown Door Sign Patient Fall Education Report given to BLANE Patel, aware to f/u on any abnormal am labs- and G tube placement today.
--- NOTE | 2020-09-01 07:15 | NUR ---
NURSE NOTES:Handoff received from BLANE Caban. Patient received in resting in bed, eyes are open but patient does not follow commands and is non-verbal due to trach to vent with following settings: Shiley 8, AC 20, TV 500. FI02 70% and PEEP 5, tolerating well with 02 saturation of 98%, radiation monitor is on. Patient is placed on contact isolation, fall and aspiration precautions in place, with call light at bedside and bed in the low and locked position, HOB is elevated to 30% patient is currently NPO for placement of PEG which was cancelled due to elevated WBC count. Right nare NG tube is in place at 65CM taped to nose. Overton is patent and draining to gravity, scrotal edema noted. IV sites are clean dry and intact with LFA running prescribed fluids at 100ML/HR. Will follow plan of care.
[2020-09-01 08:00] VITALS: BP 125/61
[2020-09-01] MEDS: Levodopa/Carbidopa 25/100 tab NG SCH ×3 (08:53→17:01)
[2020-09-01] MEDS: Heparin 5000 units/ml inj SUBQ SCH ×2 (08:53→21:00)
[2020-09-01] MEDS: Amiodarone 200mg tab NG SCH ×2 (08:53→17:01)
--- NOTE | 2020-09-01 09:35 | Infectious Diseases Prog Note ---
Assessment/Plan Assessment/Plan A: 1. Bilateral pneumonia treated 2. COVID-19 test is negative. 3. Urinary tract infection. 4. Hypertension. 5. Dementia. 6. Respiratory failure intubated 7. Parkinson's disease PLAN: 1Observe off of antibiotic Subjective ROS Limited/Unobtainable: Yes Allergies: Coded Allergies: VANCOMYCIN (Verified Allergy, Severe, hive, 08/27/20) Objective Last 24 Hour Vital Signs Date Time Temp Pulse Resp B/P (MAP) Pulse Ox O2 Delivery O2 Flow Rate FiO2 09/01/20 08:53 67 125/61 09/01/20 08:01 72 09/01/20 08:00 97.5 67 28 125/61 (82) 99 09/01/20 08:00 70 09/01/20 08:00 Mechanical Ventilator 09/01/20 07:10 68 33 70 09/01/20 04:00 97.5 72 25 139/63 (88) 100 09/01/20 04:00 60 09/01/20 04:00 Mechanical Ventilator 09/01/20 03:37 70 09/01/20 02:26 62 22 70 09/01/20 00:00 97.7 66 24 115/63 (80) 98 09/01/20 00:00 Mechanical Ventilator 09/01/20 00:00 60 08/31/20 23:29 68 08/31/20 23:08 60 24 70 08/31/20 20:32 76 122/65 08/31/20 20:00 60 08/31/20 20:00 98.1 76 24 122/65 (84) 99 08/31/20 20:00 Mechanical Ventilator 08/31/20 19:02 77 08/31/20 18:58 69 33 80 08/31/20 16:22 80 08/31/20 16:00 82 08/31/20 16:00 98.2 66 38 126/60 (82) 97 08/31/20 16:00 Mechanical Ventilator 08/31/20 16:00 60 08/31/20 15:15 73 28 60 08/31/20 12:00 98.0 70 25 120/65 (83) 99 08/31/20 12:00 64 08/31/20 12:00 Mechanical Ventilator 08/31/20 12:00 60 08/31/20 11:15 65 28 60 Height (Feet): 5 Height (Inches): 4.00 Weight (Pounds): 154 HEENT: status post trach Respiratory/Chest: crackles/rales, other - on ventilator Cardiovascular: normal rate Abdomen: soft, non tender, other - NG tube Extremities: other - generalized edema Neurologic/Psychiatric: aphasia, other - opens eyes Laboratory Tests Test 08/31/20 21:20 09/01/20 03:51 White Blood Count 17.7 K/UL (4.8-10.8) H 20.7 K/UL (4.8-10.8) H Red Blood Count 2.75 M/UL (4.70-6.10) L 3.02 M/UL (4.70-6.10) L Hemoglobin 8.3 G/DL (14.2-18.0) L 9.2 G/DL (14.2-18.0) L Hematocrit 24.6 % (42.0-52.0) L 27.6 % (42.0-52.0) L Mean Corpuscular Volume 90 FL (80-99) 91 FL (80-99) Mean Corpuscular Hemoglobin 30.1 PG (27.0-31.0) 30.3 PG (27.0-31.0) Mean Corpuscular Hemoglobin Concent 33.6 G/DL (32.0-36.0) 33.2 G/DL (32.0-36.0) Red Cell Distribution Width 14.3 % (11.6-14.8) 13.7 % (11.6-14.8) Platelet Count 94 K/UL (150-450) L 106 K/UL (150-450) L Mean Platelet Volume 12.6 FL (6.5-10.1) H 13.3 FL (6.5-10.1) H Neutrophils (%) (Auto) % (45.0-75.0) % (45.0-75.0) Lymphocytes (%) (Auto) % (20.0-45.0) % (20.0-45.0) Monocytes (%) (Auto) % (1.0-10.0) % (1.0-10.0) Eosinophils (%) (Auto) % (0.0-3.0) % (0.0-3.0) Basophils (%) (Auto) % (0.0-2.0) % (0.0-2.0) Differential Total Cells Counted 100 100 Neutrophils % (Manual) 85 % (45-75) H 95 % (45-75) H Lymphocytes % (Manual) 4 % (20-45) L 1 % (20-45) L Monocytes % (Manual) 3 % (1-10) 4 % (1-10) Eosinophils % (Manual) 1 % (0-3) 0 % (0-3) Basophils % (Manual) 0 % (0-2) 0 % (0-2) Band Neutrophils 7 % (0-8) 0 % (0-8) Platelet Estimate Decreased L Decreased L Platelet Morphology Normal Red Blood Cell Morphology Normal Giant Platelets Occasional Hypochromasia 1+ Sodium Level 137 MMOL/L (136-145) Potassium Level 4.3 MMOL/L (3.5-5.1) Chloride Level 107 MMOL/L (98-107) Carbon Dioxide Level 28 MMOL/L (21-32) Anion Gap 2 mmol/L (5-15) L Blood Urea Nitrogen 45 mg/dL (7-18) H Creatinine 1.4 MG/DL (0.55-1.30) H Estimat Glomerular Filtration Rate 47.8 mL/min (>60) Glucose Level 127 MG/DL (74-106) H Calcium Level 7.5 MG/DL (8.5-10.1) L Current Medications Medications (Trade) Dose Ordered Sig/Javon Route PRN Reason Start Time Stop Time Status Last Admin Dose Admin Acetaminophen (Tylenol) 650 mg Q4H PRN ORAL Mild Pain (Pain Scale 1-3) 08/03/20 01:15 09/02/20 01:14 08/31/20 18:23 Acetaminophen (Tylenol) 650 mg Q4H PRN RECTAL Mild Pain (Pain Scale 1-3) 08/03/20 01:15 09/02/20 01:14 08/04/20 18:32 Amiodarone HCl (Cordarone) 200 mg BID NG 08/29/20 09:00 11/15/20 08:59 09/01/20 08:53 Carbidopa/Levodopa (Sinemet 25/100) 1 tab THREE TIMES A DAY NG 08/09/20 18:00 09/02/20 08:59 09/01/20 08:53 Dextrose 1,000 ml @ 100 mls/hr Q10H IV 08/30/20 02:00 09/29/20 01:59 09/01/20 04:32 Heparin Sodium (Porcine) (Heparin 5000 units/ml) 5,000 units EVERY 12 HOURS SUBQ 08/03/20 09:00 09/17/20 08:59 08/25/20 20:29 Hydralazine HCl (Apresoline) 25 mg Q6H PRN NG SBP above 160 08/11/20 22:30 11/05/20 00:29 08/12/20 15:09 Lansoprazole (Prevacid) 30 mg DAILY NG 08/30/20 09:00 09/29/20 08:59 09/01/20 08:53 Magnesium Hydroxide (Mom) 30 ml DAILYPRN PRN GT Constipation 08/12/20 09:00 09/11/20 08:59 Metoclopramide HCl (Reglan) 5 mg Q8H PRN IVP Nausea & Vomiting 08/15/20 13:00 09/14/20 12:59 Metoprolol Tartrate (Lopressor) 25 mg Q12HR NG 08/13/20 09:00 11/11/20 08:59 09/01/20 08:53 Baldev Luo MD Sep 01, 2020 09:35
--- NOTE | 2020-09-01 11:46 | Pulmonology Progress Note ---
Subjective ROS Limited/Unobtainable: Yes Constitutional: Denies: fever Allergies: Coded Allergies: VANCOMYCIN (Verified Allergy, Severe, hive, 08/27/20) All Systems: reviewed and negative except above Subjective care noted on vent trach in place poor LOC noted changes Objective Last 24 Hour Vital Signs Date Time Temp Pulse Resp B/P (MAP) Pulse Ox O2 Delivery O2 Flow Rate FiO2 09/01/20 11:13 65 33 70 09/01/20 08:53 67 125/61 09/01/20 08:01 72 09/01/20 08:00 97.5 67 28 125/61 (82) 99 09/01/20 08:00 70 09/01/20 08:00 Mechanical Ventilator 09/01/20 07:10 68 33 70 09/01/20 04:00 97.5 72 25 139/63 (88) 100 09/01/20 04:00 60 09/01/20 04:00 Mechanical Ventilator 09/01/20 03:37 70 09/01/20 02:26 62 22 70 09/01/20 00:00 97.7 66 24 115/63 (80) 98 09/01/20 00:00 Mechanical Ventilator 09/01/20 00:00 60 08/31/20 23:29 68 08/31/20 23:08 60 24 70 08/31/20 20:32 76 122/65 08/31/20 20:00 60 08/31/20 20:00 98.1 76 24 122/65 (84) 99 08/31/20 20:00 Mechanical Ventilator 08/31/20 19:02 77 08/31/20 18:58 69 33 80 08/31/20 16:22 80 08/31/20 16:00 82 08/31/20 16:00 98.2 66 38 126/60 (82) 97 08/31/20 16:00 Mechanical Ventilator 08/31/20 16:00 60 08/31/20 15:15 73 28 60 08/31/20 12:00 98.0 70 25 120/65 (83) 99 08/31/20 12:00 64 08/31/20 12:00 Mechanical Ventilator 08/31/20 12:00 60 Intake and Output 08/31/20 09/01/20 19:00 07:00 Intake Total 1700 ml 1324 ml Output Total 350 ml 200 ml Balance 1350 ml 1124 ml Free Water 60 ml 50 ml IV Total 1100 ml 1049 ml Tube Feeding 540 ml 225 ml Output Urine Total 350 ml 200 ml # Bowel Movements 1 Objective WDWN NAD reduced breath sounds bilaterally with scattered rhonchi [id number] NABS nontender no CCE nonfocal trach in place poorly responsive Laboratory Tests 08/31/20 21:20: White Blood Count 17.7H, Red Blood Count 2.75L, Hemoglobin 8.3L, Hematocrit 24.6L, Mean Corpuscular Volume 90, Mean Corpuscular Hemoglobin 30.1, Mean Corpuscular Hemoglobin Concent 33.6, Red Cell Distribution Width 14.3, Platelet Count 94L, Mean Platelet Volume 12.6H, Neutrophils (%) (Auto) , Lymphocytes (%) (Auto) , Monocytes (%) (Auto) , Eosinophils (%) (Auto) , Basophils (%) (Auto) , Differential Total Cells Counted 100, Neutrophils % (Manual) 85H, Lymphocytes % (Manual) 4L, Monocytes % (Manual) 3, Eosinophils % (Manual) 1, Basophils % (Manual) 0, Band Neutrophils 7, Platelet Estimate DecreasedL, Platelet Morphology Normal, Red Blood Cell Morphology Normal 09/01/20 03:51: White Blood Count 20.7H, Red Blood Count 3.02L, Hemoglobin 9.2L, Hematocrit 27.6L, Mean Corpuscular Volume 91, Mean Corpuscular Hemoglobin 30.3, Mean Corpuscular Hemoglobin Concent 33.2, Red Cell Distribution Width 13.7, Platelet Count 106L, Mean Platelet Volume 13.3H, Neutrophils (%) (Auto) , Lymphocytes (%) (Auto) , Monocytes (%) (Auto) , Eosinophils (%) (Auto) , Basophils (%) (Auto) , Differential Total Cells Counted 100, Neutrophils % (Manual) 95H, Lymphocytes % (Manual) 1L, Monocytes % (Manual) 4, Eosinophils % (Manual) 0, Basophils % (Manual) 0, Band Neutrophils 0, Platelet Estimate DecreasedL, Platelet Morphology , Giant Platelets Occasional, Hypochromasia 1+, Sodium Level 137, Potassium Level 4.3, Chloride Level 107, Carbon Dioxide Level 28, Anion Gap 2L, Blood Urea Nitrogen 45H, Creatinine 1.4H, Estimat Glomerular Filtration Rate 47.8, Glucose Level 127H, Calcium Level 7.5L Current Medications Medications (Trade) Dose Ordered Sig/Javon Route PRN Reason Start Time Stop Time Status Last Admin Dose Admin Acetaminophen (Tylenol) 650 mg Q4H PRN ORAL Mild Pain (Pain Scale 1-3) 08/03/20 01:15 09/02/20 01:14 08/31/20 18:23 Acetaminophen (Tylenol) 650 mg Q4H PRN RECTAL Mild Pain (Pain Scale 1-3) 08/03/20 01:15 09/02/20 01:14 08/04/20 18:32 Amiodarone HCl (Cordarone) 200 mg BID NG 08/29/20 09:00 11/15/20 08:59 09/01/20 08:53 Carbidopa/Levodopa (Sinemet 25/100) 1 tab THREE TIMES A DAY NG 08/09/20 18:00 09/02/20 08:59 09/01/20 08:53 Dextrose 1,000 ml @ 100 mls/hr Q10H IV 08/30/20 02:00 09/29/20 01:59 09/01/20 04:32 Heparin Sodium (Porcine) (Heparin 5000 units/ml) 5,000 units EVERY 12 HOURS SUBQ 08/03/20 09:00 09/17/20 08:59 08/25/20 20:29 Hydralazine HCl (Apresoline) 25 mg Q6H PRN NG SBP above 160 08/11/20 22:30 11/05/20 00:29 08/12/20 15:09 Lansoprazole (Prevacid) 30 mg DAILY NG 08/30/20 09:00 09/29/20 08:59 09/01/20 08:53 Magnesium Hydroxide (Mom) 30 ml DAILYPRN PRN GT Constipation 08/12/20 09:00 09/11/20 08:59 Metoclopramide HCl (Reglan) 5 mg Q8H PRN IVP Nausea & Vomiting 08/15/20 13:00 09/14/20 12:59 Metoprolol Tartrate (Lopressor) 25 mg Q12HR NG 08/13/20 09:00 11/11/20 08:59 09/01/20 08:53 Assessment/Plan Assessment/Plan ASSESSMENT: chronic encephalopathy, dementia, diffuse infiltrates, elevated BNP hypertension, recurrent falls, and urinary tract infection, hypoxemia, probable aspiration pneumonia. acute respiratory failure hypoxemic s/p trach PLAN care noted taper fio2- as able respiratory care as is- monitor acid base vent support as is full for now monitor imaging for change suction off load trach care GT Full code for now per family nutrition DVT prophylaxis skin care position change impression, plan, and exam edited and reviewed in detail care discussed with Eriberto Gilliland MD Sep 01, 2020 11:46
[2020-09-01 12:00] VITALS: BP 110/64
--- NOTE | 2020-09-01 13:29 | NUR ---
RD ASSESSMENT & RECOMMENDATIONS SEE CARE ACTIVITY FOR COMPLETE ASSESSMENT DAILY ESTIMATED NEEDS: Needs based on Underweight, crirtical care/ 45kg 30-35 kcals/kg 9407-7663 total kcals 1.2-2 g protein/kg 54-90 g total protein 25-30 mL/kg 4505-5292 total fluid mLs NUTRITION DIAGNOSIS: * Increased kcal/prot needs R/T underweight status, pulmonary status as evidenced by pt @ 73% IBW, w/ BMI of 16.5, low BMI per guidelines, h/o COPD. * Swallowing difficulty R/T dysphagia, respiratory status as evidenced by s/p failed video swallow study, w/ rec for NPO, s/p NGT insertion for NGT feeds, s/p oral intubation (08/19), now s/p trach placement (08/27),pending PEG placement. CURRENT TF:NPO for procedure ENTERAL NUTRITION RECOMMENDATIONS: Glucerna 1.5 @ 40ml/hr x 24 hrs to provide 960ml, 1440kcal, 79g prot, 729ml free water * S/p PEG placement, initiate Glucerna 1.5 @ 20ml/hr x 6hrs * Advance 10ml q 4-6 hrs as tolerated to goal rate * HOB over 30 degrees/ water flush 100ml q 6hrs ADDITIONAL RECOMMENDATIONS: * Wt@ SNF on 07/2950=175ytl (48kg) fluctuating daily wts, rec recalibrated bedscale wt (wts now 60's kg) * Monitor lytes daily, replete as needed * Rec NISS w/ TF: elev BGs (127-203) . .
--- NOTE | 2020-09-01 13:35 | Surgery Progress Note ---
Surgery Progress Note Subjective Procedure Performed trach Additional Comments worsening leukocytosis unfortunately not improving prognosis guarded Objective Last 24 Hour Vital Signs Date Time Temp Pulse Resp B/P (MAP) Pulse Ox O2 Delivery O2 Flow Rate FiO2 09/01/20 12:00 97.2 65 30 110/64 (79) 97 09/01/20 12:00 68 09/01/20 12:00 Mechanical Ventilator 09/01/20 12:00 70 09/01/20 11:13 65 33 70 09/01/20 08:53 67 125/61 09/01/20 08:01 72 09/01/20 08:00 97.5 67 28 125/61 (82) 99 09/01/20 08:00 70 09/01/20 08:00 Mechanical Ventilator 09/01/20 07:10 68 33 70 09/01/20 04:00 97.5 72 25 139/63 (88) 100 09/01/20 04:00 60 09/01/20 04:00 Mechanical Ventilator 09/01/20 03:37 70 09/01/20 02:26 62 22 70 09/01/20 00:00 97.7 66 24 115/63 (80) 98 09/01/20 00:00 Mechanical Ventilator 09/01/20 00:00 60 08/31/20 23:29 68 08/31/20 23:08 60 24 70 08/31/20 20:32 76 122/65 08/31/20 20:00 60 08/31/20 20:00 98.1 76 24 122/65 (84) 99 08/31/20 20:00 Mechanical Ventilator 08/31/20 19:02 77 08/31/20 18:58 69 33 80 08/31/20 16:22 80 08/31/20 16:00 82 08/31/20 16:00 98.2 66 38 126/60 (82) 97 08/31/20 16:00 Mechanical Ventilator 08/31/20 16:00 60 08/31/20 15:15 73 28 60 I&O Intake and Output 08/31/20 09/01/20 19:00 07:00 Intake Total 1700 ml 1324 ml Output Total 350 ml 200 ml Balance 1350 ml 1124 ml Free Water 60 ml 50 ml IV Total 1100 ml 1049 ml Tube Feeding 540 ml 225 ml Output Urine Total 350 ml 200 ml # Bowel Movements 1 Dressing: saturated Cardiovascular: RSR Respiratory: decreased breath sounds Abdomen: non-tender, present bowel sounds Extremities: no tenderness, no cyanosis Laboratory Tests Test 08/31/20 21:20 09/01/20 03:51 White Blood Count 17.7 K/UL (4.8-10.8) H 20.7 K/UL (4.8-10.8) H Red Blood Count 2.75 M/UL (4.70-6.10) L 3.02 M/UL (4.70-6.10) L Hemoglobin 8.3 G/DL (14.2-18.0) L 9.2 G/DL (14.2-18.0) L Hematocrit 24.6 % (42.0-52.0) L 27.6 % (42.0-52.0) L Mean Corpuscular Volume 90 FL (80-99) 91 FL (80-99) Mean Corpuscular Hemoglobin 30.1 PG (27.0-31.0) 30.3 PG (27.0-31.0) Mean Corpuscular Hemoglobin Concent 33.6 G/DL (32.0-36.0) 33.2 G/DL (32.0-36.0) Red Cell Distribution Width 14.3 % (11.6-14.8) 13.7 % (11.6-14.8) Platelet Count 94 K/UL (150-450) L 106 K/UL (150-450) L Mean Platelet Volume 12.6 FL (6.5-10.1) H 13.3 FL (6.5-10.1) H Neutrophils (%) (Auto) % (45.0-75.0) % (45.0-75.0) Lymphocytes (%) (Auto) % (20.0-45.0) % (20.0-45.0) Monocytes (%) (Auto) % (1.0-10.0) % (1.0-10.0) Eosinophils (%) (Auto) % (0.0-3.0) % (0.0-3.0) Basophils (%) (Auto) % (0.0-2.0) % (0.0-2.0) Differential Total Cells Counted 100 100 Neutrophils % (Manual) 85 % (45-75) H 95 % (45-75) H Lymphocytes % (Manual) 4 % (20-45) L 1 % (20-45) L Monocytes % (Manual) 3 % (1-10) 4 % (1-10) Eosinophils % (Manual) 1 % (0-3) 0 % (0-3) Basophils % (Manual) 0 % (0-2) 0 % (0-2) Band Neutrophils 7 % (0-8) 0 % (0-8) Platelet Estimate Decreased L Decreased L Platelet Morphology Normal Red Blood Cell Morphology Normal Giant Platelets Occasional Hypochromasia 1+ Sodium Level 137 MMOL/L (136-145) Potassium Level 4.3 MMOL/L (3.5-5.1) Chloride Level 107 MMOL/L (98-107) Carbon Dioxide Level 28 MMOL/L (21-32) Anion Gap 2 mmol/L (5-15) L Blood Urea Nitrogen 45 mg/dL (7-18) H Creatinine 1.4 MG/DL (0.55-1.30) H Estimat Glomerular Filtration Rate 47.8 mL/min (>60) Glucose Level 127 MG/DL (74-106) H Calcium Level 7.5 MG/DL (8.5-10.1) L Plan Problems: (1) Pneumonia (2) Hypoxia (3) Sepsis Assessment & Plan: respiratory insufficiency prolonged ventilatory support failed weaning trials weaning vent as much as possible anticipate prolong vent support trach indicated and recommended will obtain consent plan for trach as able to wean thank you cont weaning will follow with recs s/p trach wean sedation wean vent no active bleeding noted h/h noted trend labs (4) UTI (urinary tract infection) (5) Pneumonia (6) AMS (altered mental status) Isaias Loaiza Sep 01, 2020 13:35
--- NOTE | 2020-09-01 14:20 | NUR ---
NURSE NOTES:Called grand-daughter as she had called earlier but I was too busy to speak to her. Grand-daughter Ruth Green wanted to know how the patient was doing, I informed her that the PEG placement did not take place today as Dr Parks cancelled the procedure due to elevated WBC count. Ruth asked about the vent settings and mentioned that she wanted to know why the FI02 of the patient increased from 60% to 70% I explained that RT titrate FI02 depending on patient condition, she also requested that she would like the MD to order another chest X-ray as he has not had one recently. I told her that I would mention her concern to Dr Herman when he rounds on patient.
--- NOTE | 2020-09-01 14:55 | NUR ---
NURSE NOTES:Contacted Dr Parks to see if he wants to start NG tube feeding as patient is currently NPO. awaiting response.
--- NOTE | 2020-09-01 15:58 | NUR ---
NURSE NOTES:Dr Parks gave order to resumed old diet of Osmolyte 1.5 @40ML/HR.
[2020-09-01 16:00] VITALS: BP 112/62
--- NOTE | 2020-09-01 16:09 | General Progress Note ---
Subjective Constitutional: Reports: malaise, weakness HEENT: Reports: no symptoms Cardiovascular: Reports: no symptoms Respiratory: Reports: shortness of breath, sputum Gastrointestinal/Abdominal: Reports: difficulty swallowing Genitourinary: Reports: no symptoms Neurologic/Psychiatric: Reports: pre-existing deficit Endocrine: Reports: no symptoms Hematologic/Lymphatic: Reports: no symptoms Allergies: Coded Allergies: VANCOMYCIN (Verified Allergy, Severe, hive, 08/27/20) All Systems: reviewed and negative except above Subjective No overnight events. Elevated white blood cell count noted. Discussed with GI. PEG placement canceled. Remains poorly responsive. No distress noted no reports of bleeding. Currently off antibiotics. Objective Last 24 Hour Vital Signs Date Time Temp Pulse Resp B/P (MAP) Pulse Ox O2 Delivery O2 Flow Rate FiO2 09/01/20 15:16 67 33 70 09/01/20 12:00 97.2 65 30 110/64 (79) 97 09/01/20 12:00 68 09/01/20 12:00 Mechanical Ventilator 09/01/20 12:00 70 09/01/20 11:13 65 33 70 09/01/20 08:53 67 125/61 09/01/20 08:01 72 09/01/20 08:00 97.5 67 28 125/61 (82) 99 09/01/20 08:00 70 09/01/20 08:00 Mechanical Ventilator 09/01/20 07:10 68 33 70 09/01/20 04:00 97.5 72 25 139/63 (88) 100 09/01/20 04:00 60 09/01/20 04:00 Mechanical Ventilator 09/01/20 03:37 70 09/01/20 02:26 62 22 70 09/01/20 00:00 97.7 66 24 115/63 (80) 98 09/01/20 00:00 Mechanical Ventilator 09/01/20 00:00 60 08/31/20 23:29 68 08/31/20 23:08 60 24 70 08/31/20 20:32 76 122/65 08/31/20 20:00 60 08/31/20 20:00 98.1 76 24 122/65 (84) 99 08/31/20 20:00 Mechanical Ventilator 08/31/20 19:02 77 08/31/20 18:58 69 33 80 08/31/20 16:22 80 Intake and Output 08/31/20 09/01/20 19:00 07:00 Intake Total 1700 ml 1324 ml Output Total 350 ml 200 ml Balance 1350 ml 1124 ml Free Water 60 ml 50 ml IV Total 1100 ml 1049 ml Tube Feeding 540 ml 225 ml Output Urine Total 350 ml 200 ml # Bowel Movements 1 Laboratory Tests 08/31/20 21:20: White Blood Count 17.7H, Red Blood Count 2.75L, Hemoglobin 8.3L, Hematocrit 24.6L, Mean Corpuscular Volume 90, Mean Corpuscular Hemoglobin 30.1, Mean Corpuscular Hemoglobin Concent 33.6, Red Cell Distribution Width 14.3, Platelet Count 94L, Mean Platelet Volume 12.6H, Neutrophils (%) (Auto) , Lymphocytes (%) (Auto) , Monocytes (%) (Auto) , Eosinophils (%) (Auto) , Basophils (%) (Auto) , Differential Total Cells Counted 100, Neutrophils % (Manual) 85H, Lymphocytes % (Manual) 4L, Monocytes % (Manual) 3, Eosinophils % (Manual) 1, Basophils % (Manual) 0, Band Neutrophils 7, Platelet Estimate DecreasedL, Platelet Morphology Normal, Red Blood Cell Morphology Normal 09/01/20 03:51: White Blood Count 20.7H, Red Blood Count 3.02L, Hemoglobin 9.2L, Hematocrit 27.6L, Mean Corpuscular Volume 91, Mean Corpuscular Hemoglobin 30.3, Mean Corpuscular Hemoglobin Concent 33.2, Red Cell Distribution Width 13.7, Platelet Count 106L, Mean Platelet Volume 13.3H, Neutrophils (%) (Auto) , Lymphocytes (%) (Auto) , Monocytes (%) (Auto) , Eosinophils (%) (Auto) , Basophils (%) (Auto) , Differential Total Cells Counted 100, Neutrophils % (Manual) 95H, Lymphocytes % (Manual) 1L, Monocytes % (Manual) 4, Eosinophils % (Manual) 0, Basophils % (Manual) 0, Band Neutrophils 0, Platelet Estimate DecreasedL, Platelet Morphology , Giant Platelets Occasional, Hypochromasia 1+, Sodium Level 137, Potassium Level 4.3, Chloride Level 107, Carbon Dioxide Level 28, Anion Gap 2L, Blood Urea Nitrogen 45H, Creatinine 1.4H, Estimat Glomerular Filtration Rate 47.8, Glucose Level 127H, Calcium Level 7.5L Height (Feet): 5 Height (Inches): 4.00 Weight (Pounds): 154 Objective General Appearance: WD/WN, confused, thin. on the vent EENT: normal ENT inspection Neck: non-tender, normal alignment, supple. trach midline Cardiovascular: normal rate, regular rhythm Respiratory/Chest: chest wall non-tender, lungs clear, normal breath sounds, no respiratory distress, no accessory muscle use Abdomen: normal bowel sounds, non tender, soft, no organomegaly Edema: no edema noted Arm (L), no edema noted Arm (R) Assessment/Plan Problem List: (1) Pneumonia ICD Codes: J18.9 - Pneumonia, unspecified organism SNOMED: 430463799 (2) Hypoxia ICD Codes: R09.02 - Hypoxemia SNOMED: 615625445 (3) AMS (altered mental status) ICD Codes: R41.82 - Altered mental status, unspecified SNOMED: 205792912 (4) UTI (urinary tract infection) ICD Codes: N39.0 - Urinary tract infection, site not specified SNOMED: 95293643 (5) Sepsis ICD Codes: A41.9 - Sepsis, unspecified organism SNOMED: 56551614 Status: stable, not improved Assessment/Plan: vent support trach care gt when stable ID follow up regarding high wbc check urine and blood cultures suctioning monitor labs/lytes replace as needed gt per GI dvt/stress ulcer prophylaxis turn q2 ativan for agitation very poor prognosis- d/w family. they are aware Chavez Gilmore MD Sep 01, 2020 16:09
--- NOTE | 2020-09-01 16:13 | NUR ---
NURSE NOTES: Contacted Dr Parks as patient had PEG placed yesterday but is till currently NPO. MD gave order to continue previous diet of Jevity 1.2 Continuous at 60ML/HR goal rate.
--- NOTE | 2020-09-01 16:48 | NUR ---
NURSE NOTES:Contacted Dr Chhaya Luo as patient WBC count went up from last lab draw of 17.7 to 20.7 patient is not receiving any antibiotics at this time. MD aware, no new orders.
--- NOTE | 2020-09-01 17:44 | General Progress Note ---
Subjective Allergies: Coded Allergies: VANCOMYCIN (Verified Allergy, Severe, hive, 08/27/20) Subjective above noted d/w PMD and ID WBC rising 13 --> 20 PEG scheduled for today cancelled patient tachypneic Objective Last 24 Hour Vital Signs Date Time Temp Pulse Resp B/P (MAP) Pulse Ox O2 Delivery O2 Flow Rate FiO2 09/01/20 16:00 Mechanical Ventilator 09/01/20 16:00 70 09/01/20 16:00 67 09/01/20 16:00 97.7 64 37 112/62 (79) 98 09/01/20 15:16 67 33 70 09/01/20 12:00 97.2 65 30 110/64 (79) 97 09/01/20 12:00 68 09/01/20 12:00 Mechanical Ventilator 09/01/20 12:00 70 09/01/20 11:13 65 33 70 09/01/20 08:53 67 125/61 09/01/20 08:01 72 09/01/20 08:00 97.5 67 28 125/61 (82) 99 09/01/20 08:00 70 09/01/20 08:00 Mechanical Ventilator 09/01/20 07:10 68 33 70 09/01/20 04:00 97.5 72 25 139/63 (88) 100 09/01/20 04:00 60 09/01/20 04:00 Mechanical Ventilator 09/01/20 03:37 70 09/01/20 02:26 62 22 70 09/01/20 00:00 97.7 66 24 115/63 (80) 98 09/01/20 00:00 Mechanical Ventilator 09/01/20 00:00 60 08/31/20 23:29 68 08/31/20 23:08 60 24 70 08/31/20 20:32 76 122/65 08/31/20 20:00 60 08/31/20 20:00 98.1 76 24 122/65 (84) 99 08/31/20 20:00 Mechanical Ventilator 08/31/20 19:02 77 08/31/20 18:58 69 33 80 Intake and Output 08/31/20 09/01/20 19:00 07:00 Intake Total 1700 ml 1424 ml Output Total 350 ml 200 ml Balance 1350 ml 1224 ml Free Water 60 ml 50 ml IV Total 1100 ml 1149 ml Tube Feeding 540 ml 225 ml Output Urine Total 350 ml 200 ml # Bowel Movements 1 Laboratory Tests 08/31/20 21:20: White Blood Count 17.7H, Red Blood Count 2.75L, Hemoglobin 8.3L, Hematocrit 24.6L, Mean Corpuscular Volume 90, Mean Corpuscular Hemoglobin 30.1, Mean Corpuscular Hemoglobin Concent 33.6, Red Cell Distribution Width 14.3, Platelet Count 94L, Mean Platelet Volume 12.6H, Neutrophils (%) (Auto) , Lymphocytes (%) (Auto) , Monocytes (%) (Auto) , Eosinophils (%) (Auto) , Basophils (%) (Auto) , Differential Total Cells Counted 100, Neutrophils % (Manual) 85H, Lymphocytes % (Manual) 4L, Monocytes % (Manual) 3, Eosinophils % (Manual) 1, Basophils % (Manual) 0, Band Neutrophils 7, Platelet Estimate DecreasedL, Platelet Morphology Normal, Red Blood Cell Morphology Normal 09/01/20 03:51: White Blood Count 20.7H, Red Blood Count 3.02L, Hemoglobin 9.2L, Hematocrit 27.6L, Mean Corpuscular Volume 91, Mean Corpuscular Hemoglobin 30.3, Mean Corpuscular Hemoglobin Concent 33.2, Red Cell Distribution Width 13.7, Platelet Count 106L, Mean Platelet Volume 13.3H, Neutrophils (%) (Auto) , Lymphocytes (%) (Auto) , Monocytes (%) (Auto) , Eosinophils (%) (Auto) , Basophils (%) (Auto) , Differential Total Cells Counted 100, Neutrophils % (Manual) 95H, Lymphocytes % (Manual) 1L, Monocytes % (Manual) 4, Eosinophils % (Manual) 0, Basophils % (Manual) 0, Band Neutrophils 0, Platelet Estimate DecreasedL, Platelet Morphology , Giant Platelets Occasional, Hypochromasia 1+, Sodium Level 137, Potassium Level 4.3, Chloride Level 107, Carbon Dioxide Level 28, Anion Gap 2L, Blood Urea Nitrogen 45H, Creatinine 1.4H, Estimat Glomerular Filtration Rate 47.8, Glucose Level 127H, Calcium Level 7.5L Height (Feet): 5 Height (Inches): 4.00 Weight (Pounds): 154 Objective Elderly man unresponsive NCAT supple scattered ronchi RR abd soft trace edema Assessment/Plan Status: stable, not improved Assessment/Plan: Assessment - Lekocytosis - respiratory failure - s/p Trach - Parox a fib - acute myocardial ischemia - PNA/sepsis - dysphagia - poor prognosis Recommendations - PEG postponed, will resume TF - ID follow up - Pulmonary toilet - elevate HOB Arely Parks MD Sep 01, 2020 17:44
--- NOTE | 2020-09-01 19:49 | NUR ---
NURSE HAND-OFF REPORT: Important Events on Shift:PEG placement cancelled due to elevated WBC's Patient Status: guarded Diet: Osmolyte 1.5@goal of 40ML/HR continuous Pending Orders: Pending Results/Labs: Pending MD notification: Latest Vital Signs: Temperature 97.7 , Pulse 72 , B/P 112 /62 , Respiratory Rate 31 , O2 SAT 98 , Mechanical Ventilator, O2 Flow Rate 60.0 . Vital Sign Comment: EKG Rhythm: Sinus Rhythm Rhythm change?: N Notified?: William Montoya MD Response: Message left await call Latest José Fall Score: 75 Fall Risk: High Risk Safety Measures: Call light Within Reach, Bed Alarm Zone 1, Side Rails Side Rails x3, Bed position Low and Locked. Fall Precautions: Yellow Socks Yellow Gown Door Sign Patient Fall Education Report given to BLANE Keller.
--- NOTE | 2020-09-01 19:50 | NUR ---
NURSE NOTES: received pt from Chato ARGUELLES., pt is awake and AOx0 at this time. Croatian speaker. pt opens eyes and without tracking.pt has trach vent Shiely 8 AC 20 TV 500 Fio2 70% P5. O2s at is at 100% without SOB. pt has NGT right side 65cm, intact, clean, and secured. Osmolite is running at 25ml/hr at this time. springer cath is intact, clean, and patent, draining well with gravity. general edema noted. right FA 20g and Left FA 20 G Iv sites are clean, patent, and patent. D5 W is running at 100ml/hr. call light within reach. will continue to monitor pt with plan of care. bed at the lowest position, alarmed, and locked.
[2020-09-01 20:00] VITALS: BP 120/61
--- NOTE | 2020-09-01 20:05 | NUR ---
NURSE NOTES: notified Dr. Valencia regarding increased peep pressure of the pt, VS are normal. no SOB noted. will wait fro call back.
--- NOTE | 2020-09-01 20:11 | NUR ---
NURSE NOTES: per Dr. Valencia, change TV to 450 and ABG in 20 mins. noted.
[2020-09-01 20:46] LABS: APPEARANCE,URINE CLOUDY; BILIRUBIN, URINE NEGATIVE (NEGATIVE); COLOR,URINE PALE YELLOW; GLUCOSE, URINE (UA) NEGATIVE (NEGATIVE); KETONES,URINE NEGATIVE (NEGATIVE); LEUKOCYTE ESTERASE ,URINE 3+ (NEGATIVE); NITRITE,URINE NEGATIVE (NEGATIVE); PH,URINE 5 (4.5-8.0); PROTEIN,URINE 2+ (NEGATIVE); UROBILINOGEN,URINE NORMAL MG/DL (0.0-1.0)
--- NOTE | 2020-09-01 21:39 | NUR ---
NURSE NOTES: notified to Dr. Valencia regarding new ABG result. and Per Dr. Valencia, abg in AM. noted and will carry on.
--- NOTE | 2020-09-01 21:40 | NUR ---
NURSE NOTES: changed to TV 500. O2sat is at 100%. no SOB noted. pt is stable condition. call light within reach. will continue to monitor
--- NOTE | 2020-09-01 23:21 | Cardiology Progress Note ---
Subjective DATE OF SERVICE: Sep 01, 2020 Remains on vent via trach; O2 requirements remain high. Increasingly tachypneic with worsening leukocytosis today. BP readings stable Monitor: sinus rhythm with paroxysms of atrial fibrillation. Na levels and renal parameters slowly normalizing on hypotonic IVF. Venous Duplex: occluded cephalic vein associated with PICC access Objective Last 24 Hour Vital Signs Date Time Temp Pulse Resp B/P (MAP) Pulse Ox O2 Delivery O2 Flow Rate FiO2 09/01/20 21:29 70 120/61 09/01/20 20:00 97.0 70 31 120/61 (80) 98 09/01/20 20:00 Mechanical Ventilator 09/01/20 20:00 70 09/01/20 19:21 69 09/01/20 18:41 72 31 70 09/01/20 16:00 Mechanical Ventilator 09/01/20 16:00 70 09/01/20 16:00 67 09/01/20 16:00 97.7 64 37 112/62 (79) 98 09/01/20 15:16 67 33 70 09/01/20 12:00 97.2 65 30 110/64 (79) 97 09/01/20 12:00 68 09/01/20 12:00 Mechanical Ventilator 09/01/20 12:00 70 09/01/20 11:13 65 33 70 09/01/20 08:53 67 125/61 09/01/20 08:01 72 09/01/20 08:00 97.5 67 28 125/61 (82) 99 09/01/20 08:00 70 09/01/20 08:00 Mechanical Ventilator 09/01/20 07:10 68 33 70 09/01/20 04:00 97.5 72 25 139/63 (88) 100 09/01/20 04:00 60 09/01/20 04:00 Mechanical Ventilator 09/01/20 03:37 70 09/01/20 02:26 62 22 70 09/01/20 00:00 97.7 66 24 115/63 (80) 98 09/01/20 00:00 Mechanical Ventilator 09/01/20 00:00 60 08/31/20 23:29 68 ROS: unchanged from my evaluation of 08/02/20 HEENT: Mechanically Ventilated, Thin Trach secretions RHYTHM: NSR, PACs, Afib LUNGS: bilateral rhonchi, respiratory distress, trach site clean CARDIAC: normal S1 and S2, irregularly irregular, systolic murmur - 1/6 systol ic murmurat apex, rapid rate ABDOMEN: normal bowel sounds, non tender, soft, no organomegaly, other - NGTube EXTREMITIES: normal range of motion, trace edema Laboratory Tests Test 09/01/20 03:51 09/01/20 18:40 09/01/20 20:50 White Blood Count 20.7 K/UL (4.8-10.8) H Red Blood Count 3.02 M/UL (4.70-6.10) L Hemoglobin 9.2 G/DL (14.2-18.0) L Hematocrit 27.6 % (42.0-52.0) L Mean Corpuscular Volume 91 FL (80-99) Mean Corpuscular Hemoglobin 30.3 PG (27.0-31.0) Mean Corpuscular Hemoglobin Concent 33.2 G/DL (32.0-36.0) Red Cell Distribution Width 13.7 % (11.6-14.8) Platelet Count 106 K/UL (150-450) L Mean Platelet Volume 13.3 FL (6.5-10.1) H Neutrophils (%) (Auto) % (45.0-75.0) Lymphocytes (%) (Auto) % (20.0-45.0) Monocytes (%) (Auto) % (1.0-10.0) Eosinophils (%) (Auto) % (0.0-3.0) Basophils (%) (Auto) % (0.0-2.0) Differential Total Cells Counted 100 Neutrophils % (Manual) 95 % (45-75) H Lymphocytes % (Manual) 1 % (20-45) L Monocytes % (Manual) 4 % (1-10) Eosinophils % (Manual) 0 % (0-3) Basophils % (Manual) 0 % (0-2) Band Neutrophils 0 % (0-8) Platelet Estimate Decreased L Platelet Morphology Giant Platelets Occasional Hypochromasia 1+ Sodium Level 137 MMOL/L (136-145) Potassium Level 4.3 MMOL/L (3.5-5.1) Chloride Level 107 MMOL/L (98-107) Carbon Dioxide Level 28 MMOL/L (21-32) Anion Gap 2 mmol/L (5-15) L Blood Urea Nitrogen 45 mg/dL (7-18) H Creatinine 1.4 MG/DL (0.55-1.30) H Estimat Glomerular Filtration Rate 47.8 mL/min (>60) Glucose Level 127 MG/DL (74-106) H Calcium Level 7.5 MG/DL (8.5-10.1) L Urine Color Pale yellow Urine Appearance Cloudy Urine pH 5 (4.5-8.0) Urine Specific [place] 1.015 (1.005-1.035) Urine Protein 2+ (NEGATIVE) H Urine Glucose (UA) Negative (NEGATIVE) Urine Ketones Negative (NEGATIVE) Urine Blood 5+ (NEGATIVE) H Urine Nitrite Negative (NEGATIVE) Urine Bilirubin Negative (NEGATIVE) Urine Urobilinogen Normal MG/DL (0.0-1.0) Urine Leukocyte Esterase 3+ (NEGATIVE) H Urine RBC 15-20 /HPF (0 - 0) H Urine WBC 10-15 /HPF (0 - 0) H Urine Squamous Epithelial Cells Occasional /LPF Urine Bacteria Moderate /HPF (NONE) H Urine Yeast Many /HPF (NONE) H Arterial Blood pH 7.280 (7.350-7.450) Arterial Blood Partial Pressure CO2 60.8 mmHg (35.0-45.0) *H Arterial Blood Partial Pressure O2 75.5 mmHg (75.0-100.0) Arterial Blood HCO3 27.9 mmol/L (22.0-26.0) H Arterial Blood Oxygen Saturation 93.6 % (95-100) L Arterial Blood Base Excess 0.4 (-2-2) Emile Test Positive Assessment/Plan Assessment/Plan Status post uncomplicated trach. Paroxysmal atrial fibrillation with RVR Acute myocardial ischemia with elevated troponin Aspiration risk Sepsis Healthcare acquired PNA Complicated UTI with indwelling catheter Hyponatremia Severe protein calorie malnutrition Acute myocardial ischemia Respiratory failure with hypoxia and hypercarbia - now on mech ventilation Hypokalemia Leukocytosis improving Ac/chronic diastolic CHF Dehydration/hypernatremia improving Hypokalemia Acute renal failure Occluded left cephalic vein Stable for PEG from cardiovasc standpoint Trach care Antimicrobials per ID Vent support NGTube feedings on hold for asp'n; PEG postponed DVT prophylaxis Continue amiodarone; advanced dose for additional loading. Titrate anti-HTN regimen as needed. Continue hypotonic IVF hydration; replace potassium and magnesium as needed. Sarkis Herman MD Sep 01, 2020 23:21
[2020-09-02] VITALS: BP 121/77
--- NOTE | 2020-09-02 | NUR ---
NURSE NOTES: oral care given, repositioned pt Q 2hrs. call light within reach. no SOB noted. no bleeding noted. oral suctioned. O2 sat is 99%.
--- NOTE | 2020-09-02 03:31 | NUR ---
NURSE NOTES: cleaned pt, oral care given. brown BM smear noted. no active bleeding. call light within reach. will continue to monitor pt.
[2020-09-02 04:00] VITALS: BP 129/69
--- NOTE | 2020-09-02 04:00 | NUR ---
NURSE NOTES: repositioned pt Q 2hrs. oral suctioned. VS stable. O2sat 100%. call light within reach.
--- NOTE | 2020-09-02 07:18 | NUR ---
NURSE NOTES: Received report from BLANE Feliciano. patient is on bed, sleeping, no signs of grimacing and distress noted. Patient has a trache-vent S8 AC 20, Vt 500, FiO2 70%, PEEP 5. Patient tolerates well. Patient has an NGT on R nares, 65 cm, running Osmolite 1.5 @ 40 cc/hr, patient tolerates well. Patient has springer, patent, intact, and draining yellow urine. Patient has a R FA 20 g, patent , intact, saline locked, and a L FA 20 g, patent intact, and running D5W 100 cc/hr. HOB is elevated, bed is on lowest position, side rails up, locked, call light within reach. patient will continue to be monitored.
--- NOTE | 2020-09-02 07:18 | NUR ---
NURSE HAND-OFF REPORT: Important Events on Shift:[ABG in AM, ped pending due to high WBC, family request to do CXR] Patient Status: [stable] Diet: [oslolite 1.5 @ 40ml/hr] Pending Orders: [n/a] Pending Results/Labs:[no labs today Pending MD notification:[n/a] Latest Vital Signs: Temperature 96.8 , Pulse 84 , B/P 129 /69 , Respiratory Rate 26 , O2 SAT 100 , Mechanical Ventilator, O2 Flow Rate 60.0 . Vital Sign Comment: [stable] EKG Rhythm: Sinus Rhythm Rhythm change?: William KURTZ Notified?: William Montoya MD Response: Message left await call Latest José Fall Score: 75 Fall Risk: High Risk Safety Measures: Call light Within Reach, Bed Alarm Zone 1, Side Rails Side Rails x3, Bed position Low and Locked. Fall Precautions: Yellow Socks Yellow Gown Door Sign Patient Fall Education Report given to Jem GARCIA,.
[2020-09-02 08:00] VITALS: BP 142/68
[2020-09-02] MEDS: Heparin 5000 units/ml inj SUBQ SCH ×2 (09:00→21:00)
[2020-09-02] MEDS: Amiodarone 200mg tab NG SCH ×2 (09:31→17:35)
--- NOTE | 2020-09-02 11:16 | Infectious Diseases Prog Note ---
Assessment/Plan Assessment/Plan antibiotics : none A 1. Right-sided pneumonia s/p rx 2. COVID-19 test is negative. 3. Urinary tract infection s/p rx 4. Hypertension. 5. Dementia. 6. Respiratory failure s/p tracheostomy 7. leucocytosis increased 8. renal failure P 1. start zosyn 2. sputum culture 3. UA and culture 4. will follow up cultures Subjective ROS Limited/Unobtainable: Yes Allergies: Coded Allergies: VANCOMYCIN (Verified Allergy, Severe, hive, 08/27/20) Objective Last 24 Hour Vital Signs Date Time Temp Pulse Resp B/P (MAP) Pulse Ox O2 Delivery O2 Flow Rate FiO2 09/02/20 09:32 94 142/68 09/02/20 08:00 70 09/02/20 08:00 89 09/02/20 08:00 97.9 93 30 142/68 (92) 94 09/02/20 08:00 Mechanical Ventilator 09/02/20 07:12 88 29 70 09/02/20 04:00 Mechanical Ventilator 09/02/20 04:00 96.8 84 26 129/69 (89) 100 09/02/20 04:00 70 09/02/20 02:58 89 09/02/20 02:53 90 28 70 09/02/20 00:00 Mechanical Ventilator 09/02/20 00:00 70 09/02/20 00:00 97.0 88 26 121/77 (92) 97 09/01/20 23:17 86 09/01/20 23:15 89 31 70 09/01/20 21:29 70 120/61 09/01/20 20:00 97.0 70 31 120/61 (80) 98 09/01/20 20:00 Mechanical Ventilator 09/01/20 20:00 70 09/01/20 19:21 69 09/01/20 18:41 72 31 70 09/01/20 16:00 Mechanical Ventilator 09/01/20 16:00 70 09/01/20 16:00 67 09/01/20 16:00 97.7 64 37 112/62 (79) 98 09/01/20 15:16 67 33 70 09/01/20 12:00 97.2 65 30 110/64 (79) 97 09/01/20 12:00 68 09/01/20 12:00 Mechanical Ventilator 09/01/20 12:00 70 Height (Feet): 5 Height (Inches): 4.00 Weight (Pounds): 154 HEENT: status post trach Respiratory/Chest: lungs clear Cardiovascular: normal rate, regular rhythm, no gallop/murmur Abdomen: soft, non tender Extremities: other - + edema Laboratory Tests Test 09/01/20 18:40 09/01/20 20:50 09/02/20 09:10 Urine Color Pale yellow Urine Appearance Cloudy Urine pH 5 (4.5-8.0) Urine Specific [place] 1.015 (1.005-1.035) Urine Protein 2+ (NEGATIVE) H Urine Glucose (UA) Negative (NEGATIVE) Urine Ketones Negative (NEGATIVE) Urine Blood 5+ (NEGATIVE) H Urine Nitrite Negative (NEGATIVE) Urine Bilirubin Negative (NEGATIVE) Urine Urobilinogen Normal MG/DL (0.0-1.0) Urine Leukocyte Esterase 3+ (NEGATIVE) H Urine RBC 15-20 /HPF (0 - 0) H Urine WBC 10-15 /HPF (0 - 0) H Urine Squamous Epithelial Cells Occasional /LPF Urine Bacteria Moderate /HPF (NONE) H Urine Yeast Many /HPF (NONE) H Arterial Blood pH 7.280 (7.350-7.450) 7.231 (7.350-7.450) Arterial Blood Partial Pressure CO2 60.8 mmHg (35.0-45.0) *H 68.8 mmHg (35.0-45.0) *H Arterial Blood Partial Pressure O2 75.5 mmHg (75.0-100.0) 75.9 mmHg (75.0-100.0) Arterial Blood HCO3 27.9 mmol/L (22.0-26.0) H 28.2 mmol/L (22.0-26.0) H Arterial Blood Oxygen Saturation 93.6 % (95-100) L 93.5 % (95-100) L Arterial Blood Base Excess 0.4 (-2-2) -0.3 (-2-2) Emile Test Positive Positive Current Medications Medications (Trade) Dose Ordered Sig/Javon Route PRN Reason Start Time Stop Time Status Last Admin Dose Admin Amiodarone HCl (Cordarone) 200 mg BID NG 08/29/20 09:00 11/15/20 08:59 09/02/20 09:31 Dextrose 1,000 ml @ 100 mls/hr Q10H IV 08/30/20 02:00 09/29/20 01:59 09/02/20 04:50 Heparin Sodium (Porcine) (Heparin 5000 units/ml) 5,000 units EVERY 12 HOURS SUBQ 08/03/20 09:00 09/17/20 08:59 08/25/20 20:29 Hydralazine HCl (Apresoline) 25 mg Q6H PRN NG SBP above 160 08/11/20 22:30 11/05/20 00:29 08/12/20 15:09 Lansoprazole (Prevacid) 30 mg DAILY NG 08/30/20 09:00 09/29/20 08:59 09/02/20 09:31 Magnesium Hydroxide (Mom) 30 ml DAILYPRN PRN GT Constipation 08/12/20 09:00 09/11/20 08:59 Metoclopramide HCl (Reglan) 5 mg Q8H PRN IVP Nausea & Vomiting 08/15/20 13:00 09/14/20 12:59 Metoprolol Tartrate (Lopressor) 25 mg Q12HR NG 08/13/20 09:00 11/11/20 08:59 09/02/20 09:32 Wagner Christensen MD Sep 02, 2020 11:16
[2020-09-02 12:00] VITALS: BP 133/75
--- NOTE | 2020-09-02 12:31 | NUR ---
NURSE NOTES: Informed Dr. Valencia about patient's ABG result. Dr. Valencia ordered to change Vt tfrom 450 to 500. On the interventions and hand off report from previous shift, Vt is 500, but on the actual ventilator, the Vt is 450. I double checked with RT about the Vt, and he said that the Vt that was endorsed to him by previous shift RT was 450 because that's what the nurse of the previous shift had said that was ordered by the Doctor. no order change was done on the previous shift about Vt 450. I was trying to order a new ventilator settings, but it would not allow me because the settings that I was trying to order was never been changed.
--- NOTE | 2020-09-02 13:32 | Pulmonology Progress Note ---
Subjective ROS Limited/Unobtainable: Yes Constitutional: Denies: fever Allergies: Coded Allergies: VANCOMYCIN (Verified Allergy, Severe, hive, 08/27/20) All Systems: reviewed and negative except above Subjective care noted on vent trach in place worsening acidosis and hypoxemia poor LOC noted changes Objective Last 24 Hour Vital Signs Date Time Temp Pulse Resp B/P (MAP) Pulse Ox O2 Delivery O2 Flow Rate FiO2 09/02/20 11:01 74 28 70 09/02/20 09:32 94 142/68 09/02/20 08:00 70 09/02/20 08:00 89 09/02/20 08:00 97.9 93 30 142/68 (92) 94 09/02/20 08:00 Mechanical Ventilator 09/02/20 07:12 88 29 70 09/02/20 04:00 Mechanical Ventilator 09/02/20 04:00 96.8 84 26 129/69 (89) 100 09/02/20 04:00 70 09/02/20 02:58 89 09/02/20 02:53 90 28 70 09/02/20 00:00 Mechanical Ventilator 09/02/20 00:00 70 09/02/20 00:00 97.0 88 26 121/77 (92) 97 09/01/20 23:17 86 09/01/20 23:15 89 31 70 09/01/20 21:29 70 120/61 09/01/20 20:00 97.0 70 31 120/61 (80) 98 09/01/20 20:00 Mechanical Ventilator 09/01/20 20:00 70 09/01/20 19:21 69 09/01/20 18:41 72 31 70 09/01/20 16:00 Mechanical Ventilator 09/01/20 16:00 70 09/01/20 16:00 67 09/01/20 16:00 97.7 64 37 112/62 (79) 98 09/01/20 15:16 67 33 70 Intake and Output 09/01/20 09/02/20 18:59 06:59 Intake Total 1495 ml 1096.80971 ml Output Total 350 ml 450 ml Balance 1145 ml 646.65100 ml Free Water 220 ml 60 ml IV Total 1200 ml 716.25133 ml Tube Feeding 75 ml 320 ml Output Urine Total 350 ml 450 ml # Bowel Movements 2 Objective WDWN NAD reduced breath sounds bilaterally with scattered rhonchi [id number] NABS nontender no CCE nonfocal trach in place poorly responsive Laboratory Tests 09/01/20 18:40: Urine Color Pale yellow, Urine Appearance Cloudy, Urine pH 5, Urine Specific [place] 1.015, Urine Protein 2+H, Urine Glucose (UA) Negative, Urine Ketones Negative, Urine Blood 5+H, Urine Nitrite Negative, Urine Bilirubin Negative, Urine Urobilinogen Normal, Urine Leukocyte Esterase 3+H, Urine RBC 15-20H, Urine WBC 10-15H, Urine Squamous Epithelial Cells Occasional, Urine Bacteria ModerateH , Urine Yeast ManyH 09/01/20 20:50: Arterial Blood pH 7.280L, Arterial Blood Partial Pressure CO2 60.8*H, Arterial B lood Partial Pressure O2 75.5, Arterial Blood HCO3 27.9H, Arterial Blood Oxygen Saturation 93.6L, Arterial Blood Base Excess 0.4, Emile Test Positive 09/02/20 09:10: Arterial Blood pH 7.231*L, Arterial Blood Partial Pressure CO2 68.8*H, Arterial Blood Partial Pressure O2 75.9, Arterial Blood HCO3 28.2H, Arterial Blood Oxygen Saturation 93.5L, Arterial Blood Base Excess -0.3, Emile Test Positive Current Medications Medications (Trade) Dose Ordered Sig/Javon Route PRN Reason Start Time Stop Time Status Last Admin Dose Admin Amiodarone HCl (Cordarone) 200 mg BID NG 08/29/20 09:00 11/15/20 08:59 09/02/20 09:31 Dextrose 1,000 ml @ 100 mls/hr Q10H IV 08/30/20 02:00 09/29/20 01:59 09/02/20 04:50 Heparin Sodium (Porcine) (Heparin 5000 units/ml) 5,000 units EVERY 12 HOURS SUBQ 08/03/20 09:00 09/17/20 08:59 08/25/20 20:29 Hydralazine HCl (Apresoline) 25 mg Q6H PRN NG SBP above 160 08/11/20 22:30 11/05/20 00:29 08/12/20 15:09 Lansoprazole (Prevacid) 30 mg DAILY NG 08/30/20 09:00 09/29/20 08:59 09/02/20 09:31 Magnesium Hydroxide (Mom) 30 ml DAILYPRN PRN GT Constipation 08/12/20 09:00 09/11/20 08:59 Metoclopramide HCl (Reglan) 5 mg Q8H PRN IVP Nausea & Vomiting 08/15/20 13:00 09/14/20 12:59 Metoprolol Tartrate (Lopressor) 25 mg Q12HR NG 08/13/20 09:00 11/11/20 08:59 09/02/20 09:32 Piperacillin Sod/ Tazobactam Sod 3.375 gm/Sodium Chloride 110 ml @ 27.5 mls/hr EVERY 8 HOURS IVPB 09/02/20 14:00 09/07/20 13:59 Assessment/Plan Assessment/Plan ASSESSMENT: chronic encephalopathy, dementia, diffuse infiltrates, elevated BNP hypertension, recurrent falls, and urinary tract infection, hypoxemia, probable aspiration pneumonia. acute respiratory failure hypoxemic s/p trach; worsening CO2 retention PLAN care noted taper fio2- as able hyperventilate for now respiratory care as is- monitor acid base vent support as is full support for now monitor imaging for change suction off load trach care GT Full code for now per family nutrition DVT prophylaxis skin care position change appears worse and will follow up on acid base changes impression, plan, and exam edited and reviewed in detail care discussed with Eriberto Gilliland MD Sep 02, 2020 13:32
--- NOTE | 2020-09-02 13:40 | NUR ---
CASE MANAGEMENT:REVIEW 09/02/20 SI: RESP FAILURE~ S/P NEW TRACH PNA. UTI 97.9 93 30 142/68 94% ON VENT SUPPORT W/70% FIO2 WBC+20.7 PLT-106 IS: IV ZOSYN Q8HRS IVF@100/HR AMIODARONE NG BID LOPRESSOR NG Q12 HEPARIN SQ Q12 : STEP DOWN UNIT DCP: FROM [facility] PLAN: WILL NEED SUBACUTE UPON DISCHARGE PEG PLACEMENT ONCE STABLE
[2020-09-02] MEDS: Piperacillin/Tazobactam 3.375 GM in NS 110 ML IVPB SCH ×2 (14:19→22:35)
--- NOTE | 2020-09-02 15:00 | NUR ---
NURSE NOTES: Doctor Christensen ordered to collect sputum for the patient. I tried to collect sputum on sputum but the patient does not have enough sputum. Will try again later.
--- NOTE | 2020-09-02 15:15 | Surgery Progress Note ---
Surgery Progress Note Subjective Procedure Performed trach Additional Comments ill appearing non responsive eyes open but no tracking Objective Last 24 Hour Vital Signs Date Time Temp Pulse Resp B/P (MAP) Pulse Ox O2 Delivery O2 Flow Rate FiO2 09/02/20 12:00 70 09/02/20 12:00 97.9 80 33 133/75 (94) 94 09/02/20 12:00 Mechanical Ventilator 09/02/20 11:43 74 09/02/20 11:01 74 28 70 09/02/20 09:32 94 142/68 09/02/20 08:00 70 09/02/20 08:00 89 09/02/20 08:00 97.9 93 30 142/68 (92) 94 09/02/20 08:00 Mechanical Ventilator 09/02/20 07:12 88 29 70 09/02/20 04:00 Mechanical Ventilator 09/02/20 04:00 96.8 84 26 129/69 (89) 100 09/02/20 04:00 70 09/02/20 02:58 89 09/02/20 02:53 90 28 70 09/02/20 00:00 Mechanical Ventilator 09/02/20 00:00 70 09/02/20 00:00 97.0 88 26 121/77 (92) 97 09/01/20 23:17 86 09/01/20 23:15 89 31 70 09/01/20 21:29 70 120/61 09/01/20 20:00 97.0 70 31 120/61 (80) 98 09/01/20 20:00 Mechanical Ventilator 09/01/20 20:00 70 09/01/20 19:21 69 09/01/20 18:41 72 31 70 09/01/20 16:00 Mechanical Ventilator 09/01/20 16:00 70 09/01/20 16:00 67 09/01/20 16:00 97.7 64 37 112/62 (79) 98 09/01/20 15:16 67 33 70 I&O Intake and Output 09/01/20 09/02/20 19:00 07:00 Intake Total 1520 ml 1071.67248 ml Output Total 350 ml 450 ml Balance 1170 ml 621.31735 ml Free Water 220 ml 60 ml IV Total 1200 ml 716.18226 ml Tube Feeding 100 ml 295 ml Output Urine Total 350 ml 450 ml # Bowel Movements 2 Dressing: saturated Cardiovascular: RSR Respiratory: decreased breath sounds Abdomen: non-tender, present bowel sounds Extremities: no edema, no tenderness, no cyanosis Laboratory Tests Test 09/01/20 18:40 09/01/20 20:50 09/02/20 09:10 Urine Color Pale yellow Urine Appearance Cloudy Urine pH 5 (4.5-8.0) Urine Specific [place] 1.015 (1.005-1.035) Urine Protein 2+ (NEGATIVE) H Urine Glucose (UA) Negative (NEGATIVE) Urine Ketones Negative (NEGATIVE) Urine Blood 5+ (NEGATIVE) H Urine Nitrite Negative (NEGATIVE) Urine Bilirubin Negative (NEGATIVE) Urine Urobilinogen Normal MG/DL (0.0-1.0) Urine Leukocyte Esterase 3+ (NEGATIVE) H Urine RBC 15-20 /HPF (0 - 0) H Urine WBC 10-15 /HPF (0 - 0) H Urine Squamous Epithelial Cells Occasional /LPF Urine Bacteria Moderate /HPF (NONE) H Urine Yeast Many /HPF (NONE) H Arterial Blood pH 7.280 (7.350-7.450) 7.231 (7.350-7.450) Arterial Blood Partial Pressure CO2 60.8 mmHg (35.0-45.0) *H 68.8 mmHg (35.0-45.0) *H Arterial Blood Partial Pressure O2 75.5 mmHg (75.0-100.0) 75.9 mmHg (75.0-100.0) Arterial Blood HCO3 27.9 mmol/L (22.0-26.0) H 28.2 mmol/L (22.0-26.0) H Arterial Blood Oxygen Saturation 93.6 % (95-100) L 93.5 % (95-100) L Arterial Blood Base Excess 0.4 (-2-2) -0.3 (-2-2) Emile Test Positive Positive Plan Problems: (1) Pneumonia (2) Hypoxia (3) Sepsis Assessment & Plan: respiratory insufficiency prolonged ventilatory support failed weaning trials weaning vent as much as possible anticipate prolong vent support trach indicated and recommended will obtain consent plan for trach as able to wean thank you cont weaning will follow with recs s/p trach wean sedation wean vent no active bleeding noted h/h noted trend labs (4) UTI (urinary tract infection) (5) Pneumonia (6) AMS (altered mental status) Isaias Loaiza Sep 02, 2020 15:15
[2020-09-02 16:00] VITALS: BP 132/60
--- NOTE | 2020-09-02 17:10 | General Progress Note ---
Subjective ROS Limited/Unobtainable: No Constitutional: Reports: malaise, weakness HEENT: Reports: no symptoms Cardiovascular: Reports: no symptoms Respiratory: Reports: cough, shortness of breath Gastrointestinal/Abdominal: Reports: difficulty swallowing Genitourinary: Reports: no symptoms Neurologic/Psychiatric: Reports: pre-existing deficit Endocrine: Reports: no symptoms Hematologic/Lymphatic: Reports: anemia Allergies: Coded Allergies: VANCOMYCIN (Verified Allergy, Severe, hive, 08/27/20) All Systems: reviewed and negative except above Subjective No overnight events. Remains on the ventilator. Tachypneic. No fevers. Labs reviewed. White blood cell count trending higher. Poorly responsive. Objective Last 24 Hour Vital Signs Date Time Temp Pulse Resp B/P (MAP) Pulse Ox O2 Delivery O2 Flow Rate FiO2 09/02/20 14:52 76 29 70 09/02/20 12:00 70 09/02/20 12:00 97.9 80 33 133/75 (94) 94 09/02/20 12:00 Mechanical Ventilator 09/02/20 11:43 74 09/02/20 11:01 74 28 70 09/02/20 09:32 94 142/68 09/02/20 08:00 70 09/02/20 08:00 89 09/02/20 08:00 97.9 93 30 142/68 (92) 94 09/02/20 08:00 Mechanical Ventilator 09/02/20 07:12 88 29 70 09/02/20 04:00 Mechanical Ventilator 09/02/20 04:00 96.8 84 26 129/69 (89) 100 09/02/20 04:00 70 09/02/20 02:58 89 09/02/20 02:53 90 28 70 09/02/20 00:00 Mechanical Ventilator 09/02/20 00:00 70 09/02/20 00:00 97.0 88 26 121/77 (92) 97 09/01/20 23:17 86 09/01/20 23:15 89 31 70 09/01/20 21:29 70 120/61 09/01/20 20:00 97.0 70 31 120/61 (80) 98 09/01/20 20:00 Mechanical Ventilator 09/01/20 20:00 70 09/01/20 19:21 69 09/01/20 18:41 72 31 70 Intake and Output 09/01/20 09/02/20 19:00 07:00 Intake Total 1520 ml 1071.07611 ml Output Total 350 ml 450 ml Balance 1170 ml 621.24465 ml Free Water 220 ml 60 ml IV Total 1200 ml 716.90290 ml Tube Feeding 100 ml 295 ml Output Urine Total 350 ml 450 ml # Bowel Movements 2 Laboratory Tests 09/01/20 18:40: Urine Color Pale yellow, Urine Appearance Cloudy, Urine pH 5, Urine Specific [place] 1.015, Urine Protein 2+H, Urine Glucose (UA) Negative, Urine Ketones Negative, Urine Blood 5+H, Urine Nitrite Negative, Urine Bilirubin Negative, Urine Urobilinogen Normal, Urine Leukocyte Esterase 3+H, Urine RBC 15-20H, Urine WBC 10-15H, Urine Squamous Epithelial Cells Occasional, Urine Bacteria ModerateH , Urine Yeast ManyH 09/01/20 20:50: Arterial Blood pH 7.280L, Arterial Blood Partial Pressure CO2 60.8*H, Arterial Blood Partial Pressure O2 75.5, Arterial Blood HCO3 27.9H, Arterial Blood Oxygen Saturation 93.6L, Arterial Blood Base Excess 0.4, Emile Test Positive 09/02/20 09:10: Arterial Blood pH 7.231*L, Arterial Blood Partial Pressure CO2 68.8*H, Arterial Blood Partial Pressure O2 75.9, Arterial Blood HCO3 28.2H, Arterial Blood Oxygen Saturation 93.5L, Arterial Blood Base Excess -0.3, Emile Test Positive Height (Feet): 5 Height (Inches): 4.00 Weight (Pounds): 154 Objective General Appearance: WD/WN, confused, thin. on the vent EENT: normal ENT inspection Neck: non-tender, normal alignment, supple. trach midline Cardiovascular: normal rate, regular rhythm Respiratory/Chest: chest wall non-tender, lungs clear, normal breath sounds, no respiratory distress, no accessory muscle use Abdomen: normal bowel sounds, non tender, soft, no organomegaly Edema: no edema noted Arm (L), no edema noted Arm (R) Assessment/Plan Problem List: (1) Pneumonia ICD Codes: J18.9 - Pneumonia, unspecified organism SNOMED: 144158538 (2) Hypoxia ICD Codes: R09.02 - Hypoxemia SNOMED: 640012645 (3) AMS (altered mental status) ICD Codes: R41.82 - Altered mental status, unspecified SNOMED: 308216669 (4) UTI (urinary tract infection) ICD Codes: N39.0 - Urinary tract infection, site not specified SNOMED: 55872050 (5) Sepsis ICD Codes: A41.9 - Sepsis, unspecified organism SNOMED: 61719609 Status: stable, not improved Assessment/Plan: vent support trach care gt when stable ID follow up regarding high wbc check urine and blood cultures suctioning monitor labs/lytes replace as needed gt per GI dvt/stress ulcer prophylaxis turn q2 ativan for agitation very poor prognosis- d/w family. they are aware Chavez Gilmore MD Sep 02, 2020 17:10
--- NOTE | 2020-09-02 19:00 | NUR ---
NURSE NOTES: Oncoming nurse was updated about the Vt, she was the previous nurse as well, and she said that the Vt was supposed to be back to 500 (from 450) per Dr. Valencia. The RT from previous shift did not change the Vt back to 500. Addendum: 09/02/20 at 1956 by Chelsea Banks RN Vt = Tidal Volume Patient had good O2 sat even with the Tidal Volume change.
[2020-09-02] MEDS ORDERED: Tubing IV Secondary IV ONE ×2 (19:31→19:35)
--- NOTE | 2020-09-02 19:32 | NUR ---
NURSE HAND-OFF REPORT: Important Events on Shift: stable Patient Status: Diet: Pending Orders: Pending Results/Labs: Pending MD notification: Latest Vital Signs: Temperature 97.9 , Pulse 78 , B/P 132 /60 , Respiratory Rate 36 , O2 SAT 97 , Mechanical Ventilator, O2 Flow Rate 60.0 . Vital Sign Comment: EKG Rhythm: Sinus Rhythm Rhythm change?: N Notified?: William Montoya MD Response: Message left await call Latest José Fall Score: 75 Fall Risk: High Risk Safety Measures: Call light Within Reach, Bed Alarm Zone 1, Side Rails Side Rails x3, Bed position Low and Locked. Fall Precautions: Yellow Socks Yellow Gown Door Sign Patient Fall Education Report given to BLANE Feliciano.
--- NOTE | 2020-09-02 19:32 | NUR ---
NURSE NOTES: left voice mail to Dr. Herman regarding episode of bradycardia lowest 45 HR. at 19:18 and did EKG on the pt. EKG showed Normal sinus rhythm 74 HR. BP 125/77 O2sat is at 100%. pt is arousal and open eyes by stimulation. call light within reach. will continue to monitor pt.
--- NOTE | 2020-09-02 19:33 | NUR ---
NURSE NOTES: received pt from Jem ARGUELLES., pt is awake, AOx0, and Ukrainian speaker. pt opens eyes and without tracking. pt has trach vent S 8 AC 20 TV 500 Fio2 70% P5. O2s at is at 100% without SOB. pt has NGT right side 65cm, intact, clean, and secured. no residual noted on feeding, Osmolite is running at 40 ml/hr at this time. springer cath is intact, clean, and patent, draining well with gravity. no active bleeding noted. general edema noted. right FA 20g and Left FA 20 G Iv sites are clean, patent, and patent. D5 W is running at 100ml/hr. call light within reach. will continue to monitor pt with plan of care. bed at the lowest position, alarmed, and locked.
[2020-09-02] MEDS ORDERED: NS 275ml ONE (19:35)
[2020-09-02 20:00] VITALS: BP 127/68
--- NOTE | 2020-09-02 20:25 | NUR ---
NURSE NOTES: Dr. Parks at the bedside.
--- NOTE | 2020-09-02 23:15 | General Progress Note ---
Subjective Allergies: Coded Allergies: VANCOMYCIN (Verified Allergy, Severe, hive, 08/27/20) Subjective above noted Non responsive tolerating TF d/w RN labs pending for am on abx Objective Last 24 Hour Vital Signs Date Time Temp Pulse Resp B/P (MAP) Pulse Ox O2 Delivery O2 Flow Rate FiO2 09/02/20 23:01 70 23 70 09/02/20 21:00 59 125/75 09/02/20 21:00 70 09/02/20 20:00 Mechanical Ventilator 09/02/20 20:00 97.7 73 29 127/68 (87) 99 09/02/20 18:57 78 36 70 09/02/20 16:00 76 09/02/20 16:00 97.9 76 31 132/60 (84) 97 09/02/20 16:00 70 09/02/20 16:00 Mechanical Ventilator 09/02/20 14:52 76 29 70 09/02/20 12:00 70 09/02/20 12:00 97.9 80 33 133/75 (94) 94 09/02/20 12:00 Mechanical Ventilator 09/02/20 11:43 74 09/02/20 11:01 74 28 70 09/02/20 09:32 94 142/68 09/02/20 08:00 70 09/02/20 08:00 89 09/02/20 08:00 97.9 93 30 142/68 (92) 94 09/02/20 08:00 Mechanical Ventilator 09/02/20 07:12 88 29 70 09/02/20 04:00 Mechanical Ventilator 09/02/20 04:00 96.8 84 26 129/69 (89) 100 09/02/20 04:00 70 09/02/20 02:58 89 09/02/20 02:53 90 28 70 09/02/20 00:00 Mechanical Ventilator 09/02/20 00:00 70 09/02/20 00:00 97.0 88 26 121/77 (92) 97 09/01/20 23:17 86 09/01/20 23:15 89 31 70 Intake and Output 09/01/20 09/02/20 19:00 07:00 Intake Total 1520 ml 1071.22934 ml Output Total 350 ml 450 ml Balance 1170 ml 621.84849 ml Free Water 220 ml 60 ml IV Total 1200 ml 716.09878 ml Tube Feeding 100 ml 295 ml Output Urine Total 350 ml 450 ml # Bowel Movements 2 Laboratory Tests 09/02/20 09:10: Arterial Blood pH 7.231*L, Arterial Blood Partial Pressure CO2 68.8*H, Arterial Blood Partial Pressure O2 75.9, Arterial Blood HCO3 28.2H, Arterial Blood Oxygen Saturation 93.5L, Arterial Blood Base Excess -0.3, Emile Test Positive Height (Feet): 5 Height (Inches): 4.00 Weight (Pounds): 154 Objective Elderly man unresponsive NCAT supple scattered ronchi RR abd soft trace edema Assessment/Plan Status: stable, not improved Assessment/Plan: Assessment - Leukocytosis - respiratory failure - s/p Trach - Parox a fib - acute myocardial ischemia - PNA/sepsis - dysphagia - poor prognosis Recommendations - PEG postponed - ID follow up - Pulmonary toilet - elevate HOB - check labs in am Arely Parks MD Sep 02, 2020 23:15
--- NOTE | 2020-09-02 23:26 | NUR ---
NURSE NOTES: pt is resting at this time, without sob or s/s of pain. will continue to monitor pt.
[2020-09-03] VITALS: BP 124/66
--- NOTE | 2020-09-03 01:11 | NUR ---
NURSE NOTES: cleaned pt, oral care given, oral suctioned. Repositioned Q 2hrs. call light within reach. will continue to monitor pt.
[2020-09-03 04:00] VITALS: BP 118/93
--- NOTE | 2020-09-03 04:20 | NUR ---
NURSE NOTES: oral care given and oral suctioned. cleaned pt, provided new gown and new blankets. 2 BM noted brown, no active bleeding noted. call light within reach. will continue to monitor pt.
[2020-09-03 05:30] LABS: HEMATOCRIT 26.2 % (42.0-52.0); HEMOGLOBIN 8.7 G/DL (14.2-18.0); MEAN CORPUSCULAR VOLUME 91 FL (80-99); PLATELET COUNT 104 K/UL (150-450); RED BLOOD COUNT 2.87 M/UL (4.70-6.10); RED CELL DISTRIBUTION WIDTH 13.4 % (11.6-14.8); WHITE BLOOD COUNT 20.9 K/UL (4.8-10.8)
[2020-09-03 05:41] LABS: ALBUMIN 0.7 G/DL (3.4-5.0); ALBUMIN/GLOBULIN RATIO 0.2 (1.0-2.7); BILIRUBIN,TOTAL 0.3 MG/DL (0.2-1.0); CALCIUM 7.1 MG/DL (8.5-10.1); CREATININE 1.3 MG/DL (0.55-1.30); POTASSIUM 4.8 MMOL/L (3.5-5.1)
[2020-09-03] MEDS: Piperacillin/Tazobactam 3.375 GM in NS 110 ML IVPB SCH ×3 (06:37→21:20)
--- NOTE | 2020-09-03 07:01 | NUR ---
NURSE NOTES: left message to Dr. Gilmore regaring low sodium 127 calcium 7.1 and albumin 0.7. will wait for call back.
--- NOTE | 2020-09-03 07:20 | NUR ---
NURSE HAND-OFF REPORT: Important Events on Shift:[azul cardia 40s] Patient Status: [stable] Diet: [osmolite 1.5 @ 40ml/hr] Pending Orders: [n/a] Pending Results/Labs:[sodium 127, albumin 0.7, calcium 7.1] Pending MD notification:[sodium 127, albumin 0.7, calcium 7. need to follow up] Latest Vital Signs: Temperature 98.2 , Pulse 75 , B/P 118 /93 , Respiratory Rate 30 , O2 SAT 97 , Mechanical Ventilator, O2 Flow Rate 60.0 . Vital Sign Comment: [stable] EKG Rhythm: Sinus Rhythm Rhythm change?: N MD Notified?: Aly Herman MD Response: Message left await call Latest José Fall Score: 75 Fall Risk: High Risk Safety Measures: Call light Within Reach, Bed Alarm Zone 1, Side Rails Side Rails x3, Bed position Low and Locked. Fall Precautions: Yellow Socks Yellow Gown Door Sign Patient Fall Education Report given to [Tereza Leal RN].
--- NOTE | 2020-09-03 07:25 | NUR ---
NURSE NOTES: Report received from Neel Feliciano RN.Pt resting in bed asleep noted no resp distress ,with trach tube to vent settings,AC20,TV 500,Fio2 70.Peep5,noted no resp distress ,no signs of pain or discomfort,S-R onthe monitor,NGTF Osmolite 1.5 at 40 ml/hr in placed per auscultation,no residual noted,[place]ton cath draining yellow urine,skin warm,dry and edematous,IV site to RFA intact with IVF D5 W at 100 ml/hr,SR up x2 HOB elevated bed lock in lowest position,will continue with plans of care.
--- NOTE | 2020-09-03 07:28 | NUR ---
RESPIRATORY NOTE: PT RECEIVED STABLE ON CMV WITH CURRENT SETTINGS: 20, 500, 70%, +5. ALARMS ARE ON AND AUDIBLE. VENT CIRCUIT IS SECURE AND OUT OF THE WAY. NO S/S OF RESPIRATORY DISTRESS NOTED AT THIS TIME WILL CONTINUE TO CLOSELY MONITOR.
[2020-09-03 08:00] VITALS: BP 121/86
--- NOTE | 2020-09-03 08:46 | Infectious Diseases Prog Note ---
Assessment/Plan Assessment/Plan A: 1. Bilateral pneumonia treated 2. COVID-19 test is negative. 3. Urinary tract infection. 4. Hypertension. 5. Dementia. 6. Respiratory failure intubated 7. Parkinson's disease 8. Fungal UTI PLAN: Continue Zosyn Add Fluconazole Repeat CXR Subjective ROS Limited/Unobtainable: Yes Constitutional: Denies: fever Allergies: Coded Allergies: VANCOMYCIN (Verified Allergy, Severe, hive, 08/27/20) Objective Last 24 Hour Vital Signs Date Time Temp Pulse Resp B/P (MAP) Pulse Ox O2 Delivery O2 Flow Rate FiO2 09/03/20 04:00 70 09/03/20 04:00 98.2 75 30 118/93 (101) 97 09/03/20 04:00 Mechanical Ventilator 09/03/20 03:16 61 09/03/20 02:47 76 29 70 09/03/20 00:00 98.2 74 29 124/66 (85) 99 09/03/20 00:00 Mechanical Ventilator 09/02/20 23:02 67 09/02/20 23:01 70 23 70 09/02/20 21:00 59 125/75 09/02/20 21:00 70 09/02/20 20:00 Mechanical Ventilator 09/02/20 20:00 97.7 73 29 127/68 (87) 99 09/02/20 19:42 70 09/02/20 19:10 41 09/02/20 18:57 78 36 70 09/02/20 16:00 76 09/02/20 16:00 97.9 76 31 132/60 (84) 97 09/02/20 16:00 70 09/02/20 16:00 Mechanical Ventilator 09/02/20 14:52 76 29 70 09/02/20 12:00 70 09/02/20 12:00 97.9 80 33 133/75 (94) 94 09/02/20 12:00 Mechanical Ventilator 09/02/20 11:43 74 09/02/20 11:01 74 28 70 09/02/20 09:32 94 142/68 Height (Feet): 5 Height (Inches): 4.00 Weight (Pounds): 154 HEENT: status post trach Respiratory/Chest: rhonchi - bilaterally, other - on ventilator Cardiovascular: normal rate Abdomen: soft, non tender, other - NG tube Extremities: other - generalized edema Neurologic/Psychiatric: aphasia, other - opens eyes Microbiology Date/Time Source Procedure Growth Status 09/01/20 18:40 Straight Cath Urine Culture - Preliminary YEAST Resulted Laboratory Tests Test 09/02/20 09:10 09/03/20 03:15 Arterial Blood pH 7.231 (7.350-7.450) Arterial Blood Partial Pressure CO2 68.8 mmHg (35.0-45.0) *H Arterial Blood Partial Pressure O2 75.9 mmHg (75.0-100.0) Arterial Blood HCO3 28.2 mmol/L (22.0-26.0) H Arterial Blood Oxygen Saturation 93.5 % (95-100) L Arterial Blood Base Excess -0.3 (-2-2) Emile Test Positive White Blood Count 20.9 K/UL (4.8-10.8) H Red Blood Count 2.87 M/UL (4.70-6.10) L Hemoglobin 8.7 G/DL (14.2-18.0) L Hematocrit 26.2 % (42.0-52.0) L Mean Corpuscular Volume 91 FL (80-99) Mean Corpuscular Hemoglobin 30.3 PG (27.0-31.0) Mean Corpuscular Hemoglobin Concent 33.2 G/DL (32.0-36.0) Red Cell Distribution Width 13.4 % (11.6-14.8) Platelet Count 104 K/UL (150-450) L Mean Platelet Volume 13.9 FL (6.5-10.1) H Neutrophils (%) (Auto) % (45.0-75.0) Lymphocytes (%) (Auto) % (20.0-45.0) Monocytes (%) (Auto) % (1.0-10.0) Eosinophils (%) (Auto) % (0.0-3.0) Basophils (%) (Auto) % (0.0-2.0) Neutrophils % (Manual) Pending Lymphocytes % (Manual) Pending Platelet Estimate Pending Platelet Morphology Pending Sodium Level 127 MMOL/L (136-145) L Potassium Level 4.8 MMOL/L (3.5-5.1) Chloride Level 99 MMOL/L (98-107) Carbon Dioxide Level 28 MMOL/L (21-32) Anion Gap 0 mmol/L (5-15) L Blood Urea Nitrogen 42 mg/dL (7-18) H Creatinine 1.3 MG/DL (0.55-1.30) Estimat Glomerular Filtration Rate 52.1 mL/min (>60) Glucose Level 155 MG/DL (74-106) H Calcium Level 7.1 MG/DL (8.5-10.1) L Total Bilirubin 0.3 MG/DL (0.2-1.0) Aspartate Amino Transf (AST/SGOT) 23 U/L (15-37) Alanine Aminotransferase (ALT/SGPT) 12 U/L (12-78) Alkaline Phosphatase 128 U/L (46-116) H Total Protein 4.6 G/DL (6.4-8.2) L Albumin 0.7 G/DL (3.4-5.0) L Globulin 3.9 g/dL Albumin/Globulin Ratio 0.2 (1.0-2.7) L Current Medications Medications (Trade) Dose Ordered Sig/Javon Route PRN Reason Start Time Stop Time Status Last Admin Dose Admin Amiodarone HCl (Cordarone) 200 mg BID NG 08/29/20 09:00 11/15/20 08:59 09/02/20 17:35 Dextrose 1,000 ml @ 100 mls/hr Q10H IV 08/30/20 02:00 09/29/20 01:59 09/03/20 00:45 Heparin Sodium (Porcine) (Heparin 5000 units/ml) 5,000 units EVERY 12 HOURS SUBQ 08/03/20 09:00 09/17/20 08:59 08/25/20 20:29 Hydralazine HCl (Apresoline) 25 mg Q6H PRN NG SBP above 160 08/11/20 22:30 11/05/20 00:29 08/12/20 15:09 Lansoprazole (Prevacid) 30 mg DAILY NG 08/30/20 09:00 09/29/20 08:59 09/02/20 09:31 Magnesium Hydroxide (Mom) 30 ml DAILYPRN PRN GT Constipation 08/12/20 09:00 09/11/20 08:59 Metoclopramide HCl (Reglan) 5 mg Q8H PRN IVP Nausea & Vomiting 08/15/20 13:00 09/14/20 12:59 Metoprolol Tartrate (Lopressor) 25 mg Q12HR NG 08/13/20 09:00 11/11/20 08:59 09/02/20 09:32 Piperacillin Sod/ Tazobactam Sod 3.375 gm/Sodium Chloride 110 ml @ 27.5 mls/hr EVERY 8 HOURS IVPB 09/02/20 14:00 09/07/20 13:59 09/03/20 06:37 Baldev Luo MD Sep 03, 2020 08:46
[2020-09-03] MEDS: Amiodarone 200mg tab NG SCH ×2 (08:54→18:39)
[2020-09-03] MEDS: Heparin 5000 units/ml inj SUBQ SCH ×2 (08:58→20:39)
[2020-09-03] MEDS: Fluconazole 100mg tab NG SCH (09:01)
--- NOTE | 2020-09-03 09:18 | General Progress Note ---
Subjective ROS Limited/Unobtainable: Yes Constitutional: Reports: malaise, weakness HEENT: Reports: no symptoms Allergies: Coded Allergies: VANCOMYCIN (Verified Allergy, Severe, hive, 08/27/20) Subjective No overnight events. Remains on the ventilator. Tachypneic. No fevers. Labs reviewed. White blood cell count trending higher. Poorly responsive. +ngt. + feeds. Objective Last 24 Hour Vital Signs Date Time Temp Pulse Resp B/P (MAP) Pulse Ox O2 Delivery O2 Flow Rate FiO2 09/03/20 08:57 74 121/76 09/03/20 08:00 98.6 74 19 121/86 (98) 98 09/03/20 04:00 70 09/03/20 04:00 98.2 75 30 118/93 (101) 97 09/03/20 04:00 Mechanical Ventilator 09/03/20 03:16 61 09/03/20 02:47 76 29 70 09/03/20 00:00 98.2 74 29 124/66 (85) 99 09/03/20 00:00 Mechanical Ventilator 09/02/20 23:02 67 09/02/20 23:01 70 23 70 09/02/20 21:00 59 125/75 09/02/20 21:00 70 09/02/20 20:00 Mechanical Ventilator 09/02/20 20:00 97.7 73 29 127/68 (87) 99 09/02/20 19:42 70 09/02/20 19:10 41 09/02/20 18:57 78 36 70 09/02/20 16:00 76 09/02/20 16:00 97.9 76 31 132/60 (84) 97 09/02/20 16:00 70 09/02/20 16:00 Mechanical Ventilator 09/02/20 14:52 76 29 70 09/02/20 12:00 70 09/02/20 12:00 97.9 80 33 133/75 (94) 94 09/02/20 12:00 Mechanical Ventilator 09/02/20 11:43 74 09/02/20 11:01 74 28 70 09/02/20 09:32 94 142/68 Intake and Output 09/02/20 09/03/20 19:00 07:00 Intake Total 850 ml 1765.0 ml Output Total 1325 ml 450 ml Balance -475 ml 1315.0 ml Free Water 270 ml 90 ml IV Total 100 ml 1235.0 ml Tube Feeding 480 ml 440 ml Output Urine Total 1325 ml 450 ml # Bowel Movements 4 Laboratory Tests 09/03/20 03:15: White Blood Count 20.9H, Red Blood Count 2.87L, Hemoglobin 8.7L, Hematocrit 26.2L, Mean Corpuscular Volume 91, Mean Corpuscular Hemoglobin 30.3, Mean Corpuscular Hemoglobin Concent 33.2, Red Cell Distribution Width 13.4, Platelet Count 104L, Mean Platelet Volume 13.9H, Neutrophils (%) (Auto) , Lymphocytes (%) (Auto) , Monocytes (%) (Auto) , Eosinophils (%) (Auto) , Basophils (%) (Auto) , Differential Total Cells Counted 100, Neutrophils % (Manual) 95H, Lymphocytes % (Manual) 3L, Monocytes % (Manual) 1, Eosinophils % (Manual) 1, Basophils % (Manual) 0, Band Neutrophils 0, Platelet Estimate DecreasedL, Platelet Morphology Normal, Hypochromasia 1+, Anisocytosis Occasional, Sodium Level 127L, Potassium Level 4.8, Chloride Level 99, Carbon Dioxide Level 28, Anion Gap 0L, Blood Urea Nitrogen 42H, Creatinine 1.3, Estimat Glomerular Filtration Rate 52.1, Glucose Level 155H, Calcium Level 7.1L, Total Bilirubin 0.3, Aspartate Amino Transf (AST/SGOT) 23, Alanine Aminotransferase (ALT/SGPT) 12, Alkaline Phosphatase 128H, Total Protein 4.6L, Albumin 0.7L, Globulin 3.9, Albumin/Globulin Ratio 0.2L Height (Feet): 5 Height (Inches): 4.00 Weight (Pounds): 154 Objective General Appearance: WD/WN, confused, thin. on the vent EENT: normal ENT inspection Neck: non-tender, normal alignment, supple. trach midline Cardiovascular: normal rate, regular rhythm Respiratory/Chest: chest wall non-tender, lungs clear, normal breath sounds, no respiratory distress, no accessory muscle use Abdomen: normal bowel sounds, non tender, soft, no organomegaly Edema: no edema noted Arm (L), no edema noted Arm (R) Assessment/Plan Problem List: (1) Pneumonia ICD Codes: J18.9 - Pneumonia, unspecified organism SNOMED: 656004753 (2) Hypoxia ICD Codes: R09.02 - Hypoxemia SNOMED: 742496441 (3) AMS (altered mental status) ICD Codes: R41.82 - Altered mental status, unspecified SNOMED: 712462440 (4) UTI (urinary tract infection) ICD Codes: N39.0 - Urinary tract infection, site not specified SNOMED: 12172357 (5) Sepsis ICD Codes: A41.9 - Sepsis, unspecified organism SNOMED: 73859890 Status: stable, not improved Assessment/Plan: vent support trach care gt when stable ID follow up regarding high wbc check urine and blood cultures abx per ID suctioning monitor labs/lytes replace as needed gt per GI dvt/stress ulcer prophylaxis turn q2 ativan for agitation melany gates dtr Chavez Valdovinos MD Sep 03, 2020 09:18
--- NOTE | 2020-09-03 09:34 | NUR ---
RESPIRATORY NOTE: ABG DRAWN AT THIS TIME. SEVERINO CASTANEDA RN. NOTIFIED. WAITING ON MD ORDER.
--- NOTE | 2020-09-03 10:24 | Diagnostic Imaging Report ---
Indication: Shortness of breath Technique: One view of the chest Comparison: 08/23/2020 Findings: Again demonstrated are extensive bilateral infiltrates, slightly worsened in the right midlung, stable elsewhere. Interim replacement of endotracheal tube with a tracheostomy. Previously demonstrated malpositioned gastric tube has been advanced, tip now projected beyond the edge of the image, presumably well within the stomach. There is suggestion of slight increased pleural fluid on the left. Impression: Extensive bilateral diffuse infiltrates versus edema, slightly worsened on the right, otherwise stable. Interval exchange of endotracheal tube for a tracheostomy Improved and now satisfactory position of enteric tube
--- NOTE | 2020-09-03 11:00 | NUR ---
NURSE NOTES: ABG results relayed to ,call returned with orders ,to change AC to 26 and increase Peep to 10,orders clarified by Cherry Saleh with Dr. Valencia,Peep order changed back to 5.
--- NOTE | 2020-09-03 11:28 | NUR ---
RADIOLOGY DEPT., CHEST X-RAY DONE.-P.DYE
[2020-09-03 12:00] VITALS: BP 119/45
--- NOTE | 2020-09-03 13:00 | NUR ---
NURSE NOTES: Pt stable,resting quietly in bed ,vent settings tolerated,no resp distress presented.
--- NOTE | 2020-09-03 13:43 | Pulmonology Progress Note ---
Subjective ROS Limited/Unobtainable: Yes Constitutional: Denies: fever Allergies: Coded Allergies: VANCOMYCIN (Verified Allergy, Severe, hive, 08/27/20) All Systems: reviewed and negative except above Subjective care noted on vent trach in place worsening acidosis and hypoxemia poor LOC noted changes Objective Last 24 Hour Vital Signs Date Time Temp Pulse Resp B/P (MAP) Pulse Ox O2 Delivery O2 Flow Rate FiO2 09/03/20 12:00 97.1 75 18 119/45 (69) 97 09/03/20 12:00 70 09/03/20 12:00 Mechanical Ventilator 15.0 09/03/20 11:19 65 29 70 09/03/20 09:15 74 32 70 09/03/20 08:57 74 121/76 09/03/20 08:00 70 09/03/20 08:00 98.6 74 19 121/86 (98) 98 09/03/20 08:00 79 09/03/20 08:00 Mechanical Ventilator 15.0 09/03/20 07:28 77 31 70 09/03/20 04:00 70 09/03/20 04:00 98.2 75 30 118/93 (101) 97 09/03/20 04:00 Mechanical Ventilator 09/03/20 03:16 61 09/03/20 02:47 76 29 70 09/03/20 00:00 98.2 74 29 124/66 (85) 99 09/03/20 00:00 Mechanical Ventilator 09/02/20 23:02 67 09/02/20 23:01 70 23 70 09/02/20 21:00 59 125/75 09/02/20 21:00 70 09/02/20 20:00 Mechanical Ventilator 09/02/20 20:00 97.7 73 29 127/68 (87) 99 09/02/20 19:42 70 09/02/20 19:10 41 09/02/20 18:57 78 36 70 09/02/20 16:00 76 09/02/20 16:00 97.9 76 31 132/60 (84) 97 09/02/20 16:00 70 09/02/20 16:00 Mechanical Ventilator 09/02/20 14:52 76 29 70 Intake and Output 09/02/20 09/03/20 19:00 07:00 Intake Total 850 ml 1805.0 ml Output Total 1325 ml 450 ml Balance -475 ml 1355.0 ml Free Water 270 ml 90 ml IV Total 100 ml 1235.0 ml Tube Feeding 480 ml 480 ml Output Urine Total 1325 ml 450 ml # Bowel Movements 4 Objective WDWN NAD reduced breath sounds bilaterally with scattered rhonchi [id number] NABS nontender no CCE nonfocal trach in place poorly responsive Microbiology Date/Time Source Procedure Growth Status 09/01/20 18:40 Straight Cath Urine Culture - Preliminary YEAST Resulted Laboratory Tests 09/03/20 03:15: White Blood Count 20.9H, Red Blood Count 2.87L, Hemoglobin 8.7L, Hematocrit 26.2L, Mean Corpuscular Volume 91, Mean Corpuscular Hemoglobin 30.3, Mean Corpuscular Hemoglobin Concent 33.2, Red Cell Distribution Width 13.4, Platelet Count 104L, Mean Platelet Volume 13.9H, Neutrophils (%) (Auto) , Lymphocytes (%) (Auto) , Monocytes (%) (Auto) , Eosinophils (%) (Auto) , Basophils (%) (Auto) , Differential Total Cells Counted 100, Neutrophils % (Manual) 95H, Lymphocytes % (Manual) 3L, Monocytes % (Manual) 1, Eosinophils % (Manual) 1, Basophils % (Manual) 0, Band Neutrophils 0, Platelet Estimate DecreasedL, Platelet Morphology Normal, Hypochromasia 1+, Anisocytosis Occasional, Sodium Level 127L, Potassium Level 4.8, Chloride Level 99, Carbon Dioxide Level 28, Anion Gap 0L, Blood Urea Nitrogen 42H, Creatinine 1.3, Estimat Glomerular Filtration Rate 52.1, Glucose Level 155H, Calcium Level 7.1L, Total Bilirubin 0.3, Aspartate Amino Transf (AST/SGOT) 23, Alanine Aminotransferase (ALT/SGPT) 12, Alkaline Phosphatase 128H, Total Protein 4.6L, Albumin 0.7L, Globulin 3.9, Albumin/Globulin Ratio 0.2L 09/03/20 09:29: Arterial Blood pH 7.269L, Arterial Blood Partial Pressure CO2 56.3*H, Arterial Blood Partial Pressure O2 79.9, Arterial Blood HCO3 25.2, Arterial Blood Oxygen Saturation 95.3, Arterial Blood Base Excess -2.0, Emile Test Positive Current Medications Medications (Trade) Dose Ordered Sig/Javon Route PRN Reason Start Time Stop Time Status Last Admin Dose Admin Amiodarone HCl (Cordarone) 200 mg BID NG 08/29/20 09:00 11/15/20 08:59 09/03/20 08:54 Dextrose 1,000 ml @ 100 mls/hr Q10H IV 08/30/20 02:00 09/29/20 01:59 09/03/20 09:05 Fluconazole (Diflucan) 100 mg DAILY NG 09/03/20 09:00 09/10/20 08:59 09/03/20 09:01 Heparin Sodium (Porcine) (Heparin 5000 units/ml) 5,000 units EVERY 12 HOURS SUBQ 08/03/20 09:00 09/17/20 08:59 08/25/20 20:29 Hydralazine HCl (Apresoline) 25 mg Q6H PRN NG SBP above 160 08/11/20 22:30 11/05/20 00:29 08/12/20 15:09 Lansoprazole (Prevacid) 30 mg DAILY NG 08/30/20 09:00 09/29/20 08:59 09/03/20 08:54 Magnesium Hydroxide (Mom) 30 ml DAILYPRN PRN GT Constipation 08/12/20 09:00 09/11/20 08:59 Metoclopramide HCl (Reglan) 5 mg Q8H PRN IVP Nausea & Vomiting 08/15/20 13:00 09/14/20 12:59 Metoprolol Tartrate (Lopressor) 25 mg Q12HR NG 08/13/20 09:00 11/11/20 08:59 09/03/20 08:57 Piperacillin Sod/ Tazobactam Sod 3.375 gm/Sodium Chloride 110 ml @ 27.5 mls/hr EVERY 8 HOURS IVPB 09/02/20 14:00 09/07/20 13:59 09/03/20 06:37 Assessment/Plan Assessment/Plan ASSESSMENT: chronic encephalopathy, dementia, diffuse infiltrates, elevated BNP hypertension, recurrent falls, and urinary tract infection, hypoxemia, probable aspiration pneumonia. acute respiratory failure hypoxemic s/p trach; worsening CO2 retention PLAN care noted taper fio2- as able cannot add PEEP with high PIP hyperventilate and increase AC rate further with noted acidemia respiratory care as is- monitor acid base vent support as is full support for now monitor imaging for change suction off load trach care GT Full code for now per family nutrition DVT prophylaxis skin care position change prognosis very poor appears worse and will follow up on acid base changes impression, plan, and exam edited and reviewed in detail care discussed with Eriberto Gilliland MD Sep 03, 2020 13:43
--- NOTE | 2020-09-03 14:57 | Surgery Progress Note ---
Surgery Progress Note Subjective Procedure Performed trach Additional Comments no significant improvement no n/v tube in place tolerating tf labs noted Objective Last 24 Hour Vital Signs Date Time Temp Pulse Resp B/P (MAP) Pulse Ox O2 Delivery O2 Flow Rate FiO2 09/03/20 13:20 69 29 70 09/03/20 12:53 68 31 70 09/03/20 12:00 97.1 75 18 119/45 (69) 97 09/03/20 12:00 70 09/03/20 12:00 Mechanical Ventilator 15.0 09/03/20 12:00 78 09/03/20 11:19 65 29 70 09/03/20 09:15 74 32 70 09/03/20 08:57 74 121/76 09/03/20 08:00 70 09/03/20 08:00 98.6 74 19 121/86 (98) 98 09/03/20 08:00 79 09/03/20 08:00 Mechanical Ventilator 15.0 09/03/20 07:28 77 31 70 09/03/20 04:00 70 09/03/20 04:00 98.2 75 30 118/93 (101) 97 09/03/20 04:00 Mechanical Ventilator 09/03/20 03:16 61 09/03/20 02:47 76 29 70 09/03/20 00:00 98.2 74 29 124/66 (85) 99 09/03/20 00:00 Mechanical Ventilator 09/02/20 23:02 67 09/02/20 23:01 70 23 70 09/02/20 21:00 59 125/75 09/02/20 21:00 70 09/02/20 20:00 Mechanical Ventilator 09/02/20 20:00 97.7 73 29 127/68 (87) 99 09/02/20 19:42 70 09/02/20 19:10 41 09/02/20 18:57 78 36 70 09/02/20 16:00 76 09/02/20 16:00 97.9 76 31 132/60 (84) 97 09/02/20 16:00 70 09/02/20 16:00 Mechanical Ventilator I&O Intake and Output 09/02/20 09/03/20 19:00 07:00 Intake Total 850 ml 1805.0 ml Output Total 1325 ml 450 ml Balance -475 ml 1355.0 ml Free Water 270 ml 90 ml IV Total 100 ml 1235.0 ml Tube Feeding 480 ml 480 ml Output Urine Total 1325 ml 450 ml # Bowel Movements 4 Dressing: saturated Cardiovascular: RSR Respiratory: decreased breath sounds Abdomen: non-tender, present bowel sounds, decreased bowel sounds Extremities: no tenderness, no cyanosis Laboratory Tests Test 09/03/20 03:15 09/03/20 09:29 White Blood Count 20.9 K/UL (4.8-10.8) H Red Blood Count 2.87 M/UL (4.70-6.10) L Hemoglobin 8.7 G/DL (14.2-18.0) L Hematocrit 26.2 % (42.0-52.0) L Mean Corpuscular Volume 91 FL (80-99) Mean Corpuscular Hemoglobin 30.3 PG (27.0-31.0) Mean Corpuscular Hemoglobin Concent 33.2 G/DL (32.0-36.0) Red Cell Distribution Width 13.4 % (11.6-14.8) Platelet Count 104 K/UL (150-450) L Mean Platelet Volume 13.9 FL (6.5-10.1) H Neutrophils (%) (Auto) % (45.0-75.0) Lymphocytes (%) (Auto) % (20.0-45.0) Monocytes (%) (Auto) % (1.0-10.0) Eosinophils (%) (Auto) % (0.0-3.0) Basophils (%) (Auto) % (0.0-2.0) Differential Total Cells Counted 100 Neutrophils % (Manual) 95 % (45-75) H Lymphocytes % (Manual) 3 % (20-45) L Monocytes % (Manual) 1 % (1-10) Eosinophils % (Manual) 1 % (0-3) Basophils % (Manual) 0 % (0-2) Band Neutrophils 0 % (0-8) Platelet Estimate Decreased L Platelet Morphology Normal Hypochromasia 1+ Anisocytosis Occasional Sodium Level 127 MMOL/L (136-145) L Potassium Level 4.8 MMOL/L (3.5-5.1) Chloride Level 99 MMOL/L (98-107) Carbon Dioxide Level 28 MMOL/L (21-32) Anion Gap 0 mmol/L (5-15) L Blood Urea Nitrogen 42 mg/dL (7-18) H Creatinine 1.3 MG/DL (0.55-1.30) Estimat Glomerular Filtration Rate 52.1 mL/min (>60) Glucose Level 155 MG/DL (74-106) H Calcium Level 7.1 MG/DL (8.5-10.1) L Total Bilirubin 0.3 MG/DL (0.2-1.0) Aspartate Amino Transf (AST/SGOT) 23 U/L (15-37) Alanine Aminotransferase (ALT/SGPT) 12 U/L (12-78) Alkaline Phosphatase 128 U/L (46-116) H Total Protein 4.6 G/DL (6.4-8.2) L Albumin 0.7 G/DL (3.4-5.0) L Globulin 3.9 g/dL Albumin/Globulin Ratio 0.2 (1.0-2.7) L Arterial Blood pH 7.269 (7.350-7.450) Arterial Blood Partial Pressure CO2 56.3 mmHg (35.0-45.0) *H Arterial Blood Partial Pressure O2 79.9 mmHg (75.0-100.0) Arterial Blood HCO3 25.2 mmol/L (22.0-26.0) Arterial Blood Oxygen Saturation 95.3 % (95-100) Arterial Blood Base Excess -2.0 (-2-2) Emile Test Positive Plan Problems: (1) Pneumonia (2) Hypoxia (3) Sepsis Assessment & Plan: respiratory insufficiency prolonged ventilatory support failed weaning trials weaning vent as much as possible anticipate prolong vent support trach indicated and recommended will obtain consent plan for trach as able to wean thank you cont weaning will follow with recs s/p trach wean sedation wean vent no active bleeding noted h/h noted trend labs (4) UTI (urinary tract infection) (5) Pneumonia (6) AMS (altered mental status) Isaias Loaiza Sep 03, 2020 14:57
[2020-09-03 16:00] VITALS: BP 130/69
--- NOTE | 2020-09-03 18:00 | NUR ---
NURSE NOTES: Bed bath given,pt with large BM to liquid brown stools .Pulled up and repositioned.
--- NOTE | 2020-09-03 19:00 | NUR ---
NURSE NOTES: received pt from Tereza Luciano RN., pt is awake, AOx0, and Divehi speaker. pt opens eyes and without tracking, no SOB or no Respiratory distress noted. pt has trach vent S 8 AC 26 TV 500 Fio2 70% P5. O2s at is at 100%. pt has NGT right side 65cm, intact, clean, and secured. no residual noted on feeding, Osmolite is running at 40 ml/hr at this time. springer cath is intact, clean, and patent, draining well with gravity. no active bleeding noted no hematuria noted. general edema noted through out the body. right FA 20g and Left FA 20 G Iv sites are clean, patent, and patent. D5 W is running at 100ml/hr. call light within reach. will continue to monitor pt with plan of care. bed at the lowest position, alarmed, and locked.
--- NOTE | 2020-09-03 19:05 | NUR ---
NURSE NOTES: notified Dr. Gilmore regarding low albumin 0.7, low sodium 127. changed fluid to D5 0.9 NS @ 75ml/hr and prostat 1 bag x 3 times a day. noted and will continue to monitor.
--- NOTE | 2020-09-03 19:10 | NUR ---
NURSE HAND-OFF REPORT: Important Events on Shift:change in vent settings per ABG results Patient Status: stable Diet: Osmolite 1.5 at 40 ml/hr GT Pending Orders: Pending Results/Labs: Pending MD notification: Latest Vital Signs: Temperature 98.9 , Pulse 77 , B/P 130 /69 , Respiratory Rate 19 , O2 SAT 96 , Mechanical Ventilator, O2 Flow Rate 15.0 . Vital Sign Comment: stable EKG Rhythm: Sinus Rhythm Rhythm change?: N Notified?: Aly Herman MD Response: Message left await call Latest José Fall Score: 75 Fall Risk: High Risk Safety Measures: Call light Within Reach, Bed Alarm Zone 1, Side Rails Side Rails x3, Bed position Low and Locked. Fall Precautions: Yellow Socks Yellow Gown Door Sign Patient Fall Education Report given to Neel Feliciano RN.
[2020-09-03 20:00] VITALS: BP 139/63
[2020-09-03] MEDS ORDERED: D5NS 1,000 ML IV SCH (21:00)
--- NOTE | 2020-09-03 21:57 | General Progress Note ---
Subjective Allergies: Coded Allergies: VANCOMYCIN (Verified Allergy, Severe, hive, 08/27/20) Subjective above noted Non responsive tolerating TF d/w RN Objective Last 24 Hour Vital Signs Date Time Temp Pulse Resp B/P (MAP) Pulse Ox O2 Delivery O2 Flow Rate FiO2 09/03/20 20:54 69 139/63 09/03/20 20:00 97.5 69 25 139/63 (88) 100 09/03/20 20:00 Mechanical Ventilator 15.0 09/03/20 19:33 76 30 70 09/03/20 16:00 Mechanical Ventilator 15.0 09/03/20 16:00 70 09/03/20 16:00 73 09/03/20 16:00 98.9 77 19 130/69 (89) 96 09/03/20 15:20 75 29 70 09/03/20 13:20 69 29 70 09/03/20 12:53 68 31 70 09/03/20 12:00 97.1 75 18 119/45 (69) 97 09/03/20 12:00 70 09/03/20 12:00 Mechanical Ventilator 15.0 09/03/20 12:00 78 09/03/20 11:19 65 29 70 09/03/20 09:15 74 32 70 09/03/20 08:57 74 121/76 09/03/20 08:00 70 09/03/20 08:00 98.6 74 19 121/86 (98) 98 09/03/20 08:00 79 09/03/20 08:00 Mechanical Ventilator 15.0 09/03/20 07:28 77 31 70 09/03/20 04:00 70 09/03/20 04:00 98.2 75 30 118/93 (101) 97 09/03/20 04:00 Mechanical Ventilator 09/03/20 03:16 61 09/03/20 02:47 76 29 70 09/03/20 00:00 98.2 74 29 124/66 (85) 99 09/03/20 00:00 Mechanical Ventilator 09/02/20 23:02 67 09/02/20 23:01 70 23 70 Intake and Output 09/02/20 09/03/20 19:00 07:00 Intake Total 850 ml 1805.0 ml Output Total 1325 ml 450 ml Balance -475 ml 1355.0 ml Free Water 270 ml 90 ml IV Total 100 ml 1235.0 ml Tube Feeding 480 ml 480 ml Output Urine Total 1325 ml 450 ml # Bowel Movements 4 Laboratory Tests 09/03/20 03:15: White Blood Count 20.9H, Red Blood Count 2.87L, Hemoglobin 8.7L, Hematocrit 26.2 L, Mean Corpuscular Volume 91, Mean Corpuscular Hemoglobin 30.3, Mean Corpuscular Hemoglobin Concent 33.2, Red Cell Distribution Width 13.4, Platelet Count 104L, Mean Platelet Volume 13.9H, Neutrophils (%) (Auto) , Lymphocytes (%) (Auto) , Monocytes (%) (Auto) , Eosinophils (%) (Auto) , Basophils (%) (Auto) , Differential Total Cells Counted 100, Neutrophils % (Manual) 95H, Lymphocytes % (Manual) 3L, Monocytes % (Manual) 1, Eosinophils % (Manual) 1, Basophils % (Manual) 0, Band Neutrophils 0, Platelet Estimate DecreasedL, Platelet Morphology Normal, Hypochromasia 1+, Anisocytosis Occasional, Sodium Level 127L, Potassium Level 4.8, Chloride Level 99, Carbon Dioxide Level 28, Anion Gap 0L, Blood Urea Nitrogen 42H, Creatinine 1.3, Estimat Glomerular Filtration Rate 52.1, Glucose Level 155H, Calcium Level 7.1L, Total Bilirubin 0.3, Aspartate Amino Transf (AST/SGOT) 23, Alanine Aminotransferase (ALT/SGPT) 12, Alkaline Phosphatase 128H, Total Protein 4.6L, Albumin 0.7L, Globulin 3.9, Albumin/Globulin Ratio 0.2L 09/03/20 09:29: Arterial Blood pH 7.269L, Arterial Blood Partial Pressure CO2 56.3*H, Arterial Blood Partial Pressure O2 79.9, Arterial Blood HCO3 25.2, Arterial Blood Oxygen Saturation 95.3, Arterial Blood Base Excess -2.0, Emile Test Positive Height (Feet): 5 Height (Inches): 4.00 Weight (Pounds): 154 Objective Elderly man unresponsive NCAT supple scattered ronchi RR abd soft trace edema Assessment/Plan Status: stable, not improved Assessment/Plan: Assessment - Leukocytosis - respiratory failure - s/p Trach - Parox a fib - acute myocardial ischemia - PNA/sepsis - dysphagia - poor prognosis Recommendations - PEG once stablized - ID follow up - Pulmonary toilet - elevate HOB - check labs in am SaleemerskineArely lemus MD Sep 03, 2020 21:57
--- NOTE | 2020-09-03 22:00 | NUR ---
NURSE NOTES: oral care given, oral suction provided. call light within reach. no active bleeding noted.
--- NOTE | 2020-09-03 22:01 | General Progress Note ---
Subjective Allergies: Coded Allergies: VANCOMYCIN (Verified Allergy, Severe, hive, 08/27/20) Subjective above noted Non responsive tolerating TF d/w RN WBC still 20K Objective Last 24 Hour Vital Signs Date Time Temp Pulse Resp B/P (MAP) Pulse Ox O2 Delivery O2 Flow Rate FiO2 09/03/20 20:54 69 139/63 09/03/20 20:00 97.5 69 25 139/63 (88) 100 09/03/20 20:00 Mechanical Ventilator 15.0 09/03/20 19:33 76 30 70 09/03/20 16:00 Mechanical Ventilator 15.0 09/03/20 16:00 70 09/03/20 16:00 73 09/03/20 16:00 98.9 77 19 130/69 (89) 96 09/03/20 15:20 75 29 70 09/03/20 13:20 69 29 70 09/03/20 12:53 68 31 70 09/03/20 12:00 97.1 75 18 119/45 (69) 97 09/03/20 12:00 70 09/03/20 12:00 Mechanical Ventilator 15.0 09/03/20 12:00 78 09/03/20 11:19 65 29 70 09/03/20 09:15 74 32 70 09/03/20 08:57 74 121/76 09/03/20 08:00 70 09/03/20 08:00 98.6 74 19 121/86 (98) 98 09/03/20 08:00 79 09/03/20 08:00 Mechanical Ventilator 15.0 09/03/20 07:28 77 31 70 09/03/20 04:00 70 09/03/20 04:00 98.2 75 30 118/93 (101) 97 09/03/20 04:00 Mechanical Ventilator 09/03/20 03:16 61 09/03/20 02:47 76 29 70 09/03/20 00:00 98.2 74 29 124/66 (85) 99 09/03/20 00:00 Mechanical Ventilator 09/02/20 23:02 67 09/02/20 23:01 70 23 70 Intake and Output 09/02/20 09/03/20 19:00 07:00 Intake Total 850 ml 1805.0 ml Output Total 1325 ml 450 ml Balance -475 ml 1355.0 ml Free Water 270 ml 90 ml IV Total 100 ml 1235.0 ml Tube Feeding 480 ml 480 ml Output Urine Total 1325 ml 450 ml # Bowel Movements 4 Laboratory Tests 09/03/20 03:15: White Blood Count 20.9H, Red Blood Count 2.87L, Hemoglobin 8.7L, Hematocrit 26.2L, Mean Corpuscular Volume 91, Mean Corpuscular Hemoglobin 30.3, Mean Corpuscular Hemoglobin Concent 33.2, Red Cell Distribution Width 13.4, Platelet Count 104L, Mean Platelet Volume 13.9H, Neutrophils (%) (Auto) , Lymphocytes (%) (Auto) , Monocytes (%) (Auto) , Eosinophils (%) (Auto) , Basophils (%) (Auto) , Differential Total Cells Counted 100, Neutrophils % (Manual) 95H, Lymphocytes % (Manual) 3L, Monocytes % (Manual) 1, Eosinophils % (Manual) 1, Basophils % (Manual) 0, Band Neutrophils 0, Platelet Estimate DecreasedL, Platelet Morphology Normal, Hypochromasia 1+, Anisocytosis Occasional, Sodium Level 127L, Potassium Level 4.8, Chloride Level 99, Carbon Dioxide Level 28, Anion Gap 0L, Blood Urea Nitrogen 42H, Creatinine 1.3, Estimat Glomerular Filtration Rate 52.1, Glucose Level 155H, Calcium Level 7.1L, Total Bilirubin 0.3, Aspartate Amino Transf (AST/SGOT) 23, Alanine Aminotransferase (ALT/SGPT) 12, Alkaline Phosphatase 128H, Total Protein 4.6L, Albumin 0.7L, Globulin 3.9, Albumin/Globulin Ratio 0.2L 09/03/20 09:29: Arterial Blood pH 7.269L, Arterial Blood Partial Pressure CO2 56.3*H, Arterial Blood Partial Pressure O2 79.9, Arterial Blood HCO3 25.2, Arterial Blood Oxygen Saturation 95.3, Arterial Blood Base Excess -2.0, Emile Test Positive Height (Feet): 5 Height (Inches): 4.00 Weight (Pounds): 154 Objective Elderly man unresponsive NCAT supple scattered ronchi RR abd soft trace edema Assessment/Plan Status: stable, not improved Assessment/Plan: Assessment - Leukocytosis - respiratory failure - s/p Trach - Parox a fib - acute myocardial ischemia - PNA/sepsis - dysphagia - poor prognosis Recommendations - PEG once stablized - ID follow up - Pulmonary toilet Omkar Parksman MD Sep 03, 2020 22:01
--- NOTE | 2020-09-03 22:58 | Cardiology Progress Note ---
Subjective DATE OF SERVICE: Sep 03, 2020 Remains on vent via trach; O2 requirements remain high. Remains tachypneic with WBC of 20K BP readings stable Monitor: sinus rhythm with paroxysms of atrial fibrillation. Na levels and renal parameters slowly normalizing on hypotonic IVF. ABG (09/03) 7.27/56/80 Venous Duplex: occluded cephalic vein associated with PICC access Objective Last 24 Hour Vital Signs Date Time Temp Pulse Resp B/P (MAP) Pulse Ox O2 Delivery O2 Flow Rate FiO2 09/03/20 20:54 69 139/63 09/03/20 20:00 97.5 69 25 139/63 (88) 100 09/03/20 20:00 Mechanical Ventilator 15.0 09/03/20 19:33 76 30 70 09/03/20 16:00 Mechanical Ventilator 15.0 09/03/20 16:00 70 09/03/20 16:00 73 09/03/20 16:00 98.9 77 19 130/69 (89) 96 09/03/20 15:20 75 29 70 09/03/20 13:20 69 29 70 09/03/20 12:53 68 31 70 09/03/20 12:00 97.1 75 18 119/45 (69) 97 09/03/20 12:00 70 09/03/20 12:00 Mechanical Ventilator 15.0 09/03/20 12:00 78 09/03/20 11:19 65 29 70 09/03/20 09:15 74 32 70 09/03/20 08:57 74 121/76 09/03/20 08:00 70 09/03/20 08:00 98.6 74 19 121/86 (98) 98 09/03/20 08:00 79 09/03/20 08:00 Mechanical Ventilator 15.0 09/03/20 07:28 77 31 70 09/03/20 04:00 70 09/03/20 04:00 98.2 75 30 118/93 (101) 97 09/03/20 04:00 Mechanical Ventilator 09/03/20 03:16 61 09/03/20 02:47 76 29 70 09/03/20 00:00 98.2 74 29 124/66 (85) 99 09/03/20 00:00 Mechanical Ventilator 09/02/20 23:02 67 09/02/20 23:01 70 23 70 ROS: unchanged from my evaluation of 08/02/20 HEENT: Mechanically Ventilated, Thin Trach secretions RHYTHM: NSR, PACs, Afib LUNGS: bilateral rhonchi, respiratory distress, trach site clean CARDIAC: normal S1 and S2, irregularly irregular, systolic murmur - 1/6 systolic murmurat apex, rapid rate ABDOMEN: normal bowel sounds, non tender, soft, no organomegaly, other - NGTube EXTREMITIES: normal range of motion, trace edema Laboratory Tests Test 09/03/20 03:15 09/03/20 09:29 White Blood Count 20.9 K/UL (4.8-10.8) H Red Blood Count 2.87 M/UL (4.70-6.10) L Hemoglobin 8.7 G/DL (14.2-18.0) L Hematocrit 26.2 % (42.0-52.0) L Mean Corpuscular Volume 91 FL (80-99) Mean Corpuscular Hemoglobin 30.3 PG (27.0-31.0) Mean Corpuscular Hemoglobin Concent 33.2 G/DL (32.0-36.0) Red Cell Distribution Width 13.4 % (11.6-14.8) Platelet Count 104 K/UL (150-450) L Mean Platelet Volume 13.9 FL (6.5-10.1) H Neutrophils (%) (Auto) % (45.0-75.0) Lymphocytes (%) (Auto) % (20.0-45.0) Monocytes (%) (Auto) % (1.0-10.0) Eosinophils (%) (Auto) % (0.0-3.0) Basophils (%) (Auto) % (0.0-2.0) Differential Total Cells Counted 100 Neutrophils % (Manual) 95 % (45-75) H Lymphocytes % (Manual) 3 % (20-45) L Monocytes % (Manual) 1 % (1-10) Eosinophils % (Manual) 1 % (0-3) Basophils % (Manual) 0 % (0-2) Band Neutrophils 0 % (0-8) Platelet Estimate Decreased L Platelet Morphology Normal Hypochromasia 1+ Anisocytosis Occasional Sodium Level 127 MMOL/L (136-145) L Potassium Level 4.8 MMOL/L (3.5-5.1) Chloride Level 99 MMOL/L (98-107) Carbon Dioxide Level 28 MMOL/L (21-32) Anion Gap 0 mmol/L (5-15) L Blood Urea Nitrogen 42 mg/dL (7-18) H Creatinine 1.3 MG/DL (0.55-1.30) Estimat Glomerular Filtration Rate 52.1 mL/min (>60) Glucose Level 155 MG/DL (74-106) H Calcium Level 7.1 MG/DL (8.5-10.1) L Total Bilirubin 0.3 MG/DL (0.2-1.0) Aspartate Amino Transf (AST/SGOT) 23 U/L (15-37) Alanine Aminotransferase (ALT/SGPT) 12 U/L (12-78) Alkaline Phosphatase 128 U/L (46-116) H Total Protein 4.6 G/DL (6.4-8.2) L Albumin 0.7 G/DL (3.4-5.0) L Globulin 3.9 g/dL Albumin/Globulin Ratio 0.2 (1.0-2.7) L Arterial Blood pH 7.269 (7.350-7.450) Arterial Blood Partial Pressure CO2 56.3 mmHg (35.0-45.0) *H Arterial Blood Partial Pressure O2 79.9 mmHg (75.0-100.0) Arterial Blood HCO3 25.2 mmol/L (22.0-26.0) Arterial Blood Oxygen Saturation 95.3 % (95-100) Arterial Blood Base Excess -2.0 (-2-2) Emile Test Positive Microbiology Date/Time Source Procedure Growth Status 09/01/20 18:40 Straight Cath Urine Culture - Final Michelle Albicans Complete Assessment/Plan Assessment/Plan Status post uncomplicated trach. Paroxysmal atrial fibrillation with RVR Acute myocardial ischemia with elevated troponin Aspiration risk Sepsis Healthcare acquired PNA Complicated UTI with indwelling catheter Hyponatremia Severe protein calorie malnutrition Acute myocardial ischemia Respiratory failure with hypoxia and hypercarbia - now on mech ventilation Hypokalemia Leukocytosis improving Ac/chronic diastolic CHF Dehydration/hypernatremia resolved into hyponatremia Hypokalemia Acute renal failure Occluded left cephalic vein Trach care Antimicrobials per ID Vent support NGTube feedings on hold for asp'n; PEG postponed DVT prophylaxis Continue amiodarone; advanced dose for additional loading. Titrate anti-HTN regimen as needed. Sarkis Herman MD Sep 03, 2020 22:58
[2020-09-04] VITALS: BP 120/65
--- NOTE | 2020-09-04 00:30 | NUR ---
NURSE NOTES: no SOB noted. pt is sleeping at this time comfortably. call light within reach. will continue to monitor pt.
--- NOTE | 2020-09-04 01:00 | NUR ---
NURSE NOTES: oral care given. oral suction provided. no SOB
[2020-09-04 04:00] VITALS: BP 147/90
--- NOTE | 2020-09-04 04:00 | NUR ---
NURSE NOTES: repositioned pt Q 2hrs, Oral care given, pt cleaned, large BM noted. no active bleeding noted. will continue to monitor pt. call light within reach. no SOB noted.
[2020-09-04] MEDS: Piperacillin/Tazobactam 3.375 GM in NS 110 ML IVPB SCH ×3 (05:26→21:03)
--- NOTE | 2020-09-04 07:10 | NUR ---
NURSE NOTES:Handoff received from BLANE Keller. Patient received in resting in bed, eyes are open but patient does not follow commands and is non-verbal due to trach to vent with following settings: Shiley 8, AC 26, TV 500. FI02 70% and PEEP 5, tolerating well with 02 saturation of 98%, tea bag packer is on. Patient is placed on contact isolation, fall and aspiration precautions in place, with call light at bedside and bed in the low and locked position, HOB is elevated to 30% patient has feeding running in right NG tube placed at 65CM taped to nose. Overton is patent and draining to gravity, scrotal edema noted. IV sites are clean dry and intact saline locked. Potassium lab slightly low, Arianna endorsed that patient received 40MEQ's KCL. Will follow plan of care.
--- NOTE | 2020-09-04 07:20 | NUR ---
b,NURSE HAND-OFF REPORT: Important Events on Shift:[BM1, changed vent setting, need to follow up on sodium level] Patient Status: [stable] Diet: [osmolite 1.5 @ 40ml/hr] Pending Orders: [n/a] Pending Results/Labs:[sputum, abg] Pending MD notification:[n/a] Latest Vital Signs: Temperature 97.9 , Pulse 72 , B/P 147 /90 , Respiratory Rate 22 , O2 SAT 98 , Mechanical Ventilator, O2 Flow Rate 70.0 . Vital Sign Comment: [stable] EKG Rhythm: Sinus Rhythm Rhythm change?: N Notified?: Y Josue Herman MD Response: Message left await call Latest José Fall Score: 75 Fall Risk: High Risk Safety Measures: Call light Within Reach, Bed Alarm Zone 1, Side Rails Side Rails x3, Bed position Low and Locked. Fall Precautions: Yellow Socks Yellow Gown Door Sign Patient Fall Education Report given to [jaime ARGUELLES.,].
--- NOTE | 2020-09-04 07:30 | NUR ---
RESPIRATORY NOTE: PT RECEIVED STABLE ON CMV WITH CURRENT SETTINGS: 26, 500, 70%, +5. ALARMS ARE ON AND AUDIBLE. VENT CIRCUIT IS SECURE AND OUT OF THE WAY. NO S/S OF RESPIRATORY DISTRESS NOTED AT THIS TIME WILL CONTINUE TO CLOSELY MONITOR.
[2020-09-04 08:00] VITALS: BP 133/87
[2020-09-04] MEDS ORDERED: NS 275ml ONE (08:27)
[2020-09-04] MEDS ORDERED: Tubing IV Secondary IV ONE (08:27)
--- NOTE | 2020-09-04 08:45 | NUR ---
RD ASSESSMENT & RECOMMENDATIONS SEE CARE ACTIVITY FOR COMPLETE ASSESSMENT DAILY ESTIMATED NEEDS: Needs based on Underweight, crirtical care/ 45kg 30-35 kcals/kg 1510-1035 total kcals 1.2-2 g protein/kg 54-90 g total protein 25-30 mL/kg 5583-0022 total fluid mLs NUTRITION DIAGNOSIS: * Increased kcal/prot needs R/T underweight status, pulmonary status as evidenced by pt @ 73% IBW, w/ BMI of 16.5, low BMI per guidelines, h/o COPD. * Swallowing difficulty R/T dysphagia, respiratory status as evidenced by s/p failed video swallow study, w/ rec for NPO, s/p NGT insertion for NGT feeds, s/p oral intubation (08/19), now s/p trach placement (08/27),pending PEG placement. (CURRENT TF: Osmolite 1.5 @40) ENTERAL NUTRITION RECOMMENDATIONS: Glucerna 1.5 @ 40ml/hr x 24 hrs to provide 960ml, 1440kcal, 79g prot, 729ml free water * rec Glucerna 1.5 for carb control and to better meets est pro needs * initiate Glucerna 1.5 @ 30ml/hr x 6hrs * Advance 10ml q 4-6 hrs as tolerated to goal rate * HOB over 30 degrees/ water flush 100ml q 6hrs ADDITIONAL RECOMMENDATIONS: * Wt@ [facility] on [id number] (48kg) fluctuating daily wts, rec recalibrated bedscale wt (wts now 60's kg) * Monitor lytes daily, replete as needed * Rec NISS w/ TF: elev BGs (127-168) . .
[2020-09-04] MEDS: Amiodarone 200mg tab NG SCH (08:54)
[2020-09-04] MEDS: Heparin 5000 units/ml inj SUBQ SCH ×2 (08:54→20:20)
[2020-09-04] MEDS: Fluconazole 100mg tab NG SCH (08:54)
[2020-09-04 09:24] LABS: HEMATOCRIT 25.6 % (42.0-52.0); HEMOGLOBIN 8.7 G/DL (14.2-18.0); MEAN CORPUSCULAR VOLUME 87 FL (80-99); PLATELET COUNT 88 K/UL (150-450); RED BLOOD COUNT 2.95 M/UL (4.70-6.10); RED CELL DISTRIBUTION WIDTH 14.7 % (11.6-14.8); WHITE BLOOD COUNT 21.9 K/UL (4.8-10.8)
[2020-09-04 10:01] LABS: ALANINE AMINOTRANSFERASE 15 U/L (12-78); ALBUMIN < 0.6 G/DL (3.4-5.0); ALKALINE PHOSPHATASE 119 U/L (46-116); ANION GAP 3 mmol/L (5-15); ASPARTATE AMINO TRANSFERASE 27 U/L (15-37); BILIRUBIN,TOTAL 0.2 MG/DL (0.2-1.0); BLOOD UREA NITROGEN 48 mg/dL (7-18); CALCIUM 7.1 MG/DL (8.5-10.1); CARBON DIOXIDE 26 MMOL/L (21-32); CHLORIDE 99 MMOL/L (98-107); CREATININE 1.4 MG/DL (0.55-1.30); POTASSIUM 5.4 MMOL/L (3.5-5.1); SODIUM 128 MMOL/L (136-145)
--- NOTE | 2020-09-04 10:38 | Pulmonology Progress Note ---
Subjective ROS Limited/Unobtainable: Yes Constitutional: Denies: fever Allergies: Coded Allergies: VANCOMYCIN (Verified Allergy, Severe, hive, 08/27/20) All Systems: reviewed and negative except above Subjective care noted on vent/ repeat ABG noted trach in place worsening acidosis and hypoxemia noted poor LOC noted changes Objective Last 24 Hour Vital Signs Date Time Temp Pulse Resp B/P (MAP) Pulse Ox O2 Delivery O2 Flow Rate FiO2 09/04/20 08:53 76 133/87 09/04/20 08:00 Mechanical Ventilator 09/04/20 08:00 70 09/04/20 08:00 70 09/04/20 08:00 97.8 76 26 133/87 (102) 99 09/04/20 04:00 Mechanical Ventilator 70.0 09/04/20 04:00 97.9 72 22 147/90 (109) 98 09/04/20 04:00 70 09/04/20 03:42 75 34 70 09/04/20 03:20 77 09/04/20 00:00 70 09/04/20 00:00 97.6 74 22 120/65 (83) 100 09/04/20 00:00 Mechanical Ventilator 70.0 09/04/20 00:00 70 09/03/20 23:08 74 32 70 09/03/20 20:54 69 139/63 09/03/20 20:00 97.5 69 25 139/63 (88) 100 09/03/20 20:00 Mechanical Ventilator 15.0 09/03/20 19:43 69 09/03/20 19:33 76 30 70 09/03/20 16:00 Mechanical Ventilator 15.0 09/03/20 16:00 70 09/03/20 16:00 73 09/03/20 16:00 98.9 77 19 130/69 (89) 96 09/03/20 15:20 75 29 70 09/03/20 13:20 69 29 70 09/03/20 12:53 68 31 70 09/03/20 12:00 97.1 75 18 119/45 (69) 97 09/03/20 12:00 70 09/03/20 12:00 Mechanical Ventilator 15.0 09/03/20 12:00 78 09/03/20 11:19 65 29 70 Intake and Output 09/03/20 09/04/20 19:00 07:00 Intake Total 2020 ml 826.25 ml Output Total 800 ml 400 ml Balance 1220 ml 426.25 ml Free Water 200 ml 90 ml IV Total 1100 ml 256.25 ml Tube Feeding 480 ml 480 ml Other 240 ml Output Urine Total 800 ml 400 ml # Bowel Movements 2 3 Objective WDWN NAD reduced breath sounds bilaterally with scattered rhonchi [id number] NABS nontender no CCE nonfocal trach in place poorly responsive Microbiology Date/Time Source Procedure Growth Status 09/01/20 18:40 Straight Cath Urine Culture - Final Michelle Albicans Complete Laboratory Tests 09/04/20 08:30: White Blood Count 21.9H, Red Blood Count 2.95L, Hemoglobin 8.7L, Hematocrit 25.6L, Mean Corpuscular Volume 87, Mean Corpuscular Hemoglobin 29.6, Mean Corpuscular Hemoglobin Concent 34.1, Red Cell Distribution Width 14.7, Platelet Count 88L, Mean Platelet Volume 11.2H, Neutrophils (%) (Auto) , Lymphocytes (%) (Auto) , Monocytes (%) (Auto) , Eosinophils (%) (Auto) , Basophils (%) (Auto) , Neutrophils % (Manual) [Pending], Lymphocytes % (Manual) [Pending], Platelet Estimate [Pending], Platelet Morphology [Pending], Sodium Level 128L, Potassium Level 5.4H, Chloride Level 99, Carbon Dioxide Level 26, Anion Gap 3L, Blood Urea Nitrogen 48H, Creatinine 1.4H, Estimat Glomerular Filtration Rate 47.8, Glucose Level 135H, Calcium Level 7.1L, Total Bilirubin 0.2, Aspartate Amino Transf (AST/SGOT) 27, Alanine Aminotransferase (ALT/SGPT) 15, Alkaline Phosphatase 119H , Total Protein 3.6L, Albumin < 0.6L, Globulin Current Medications Medications (Trade) Dose Ordered Sig/Javon Route PRN Reason Start Time Stop Time Status Last Admin Dose Admin Amiodarone HCl (Cordarone) 200 mg DAILY NG 09/04/20 09:00 11/15/20 08:59 09/04/20 08:54 Fluconazole (Diflucan) 100 mg DAILY NG 09/03/20 09:00 09/10/20 08:59 09/04/20 08:54 Heparin Sodium (Porcine) (Heparin 5000 units/ml) 5,000 units EVERY 12 HOURS SUBQ 08/03/20 09:00 09/17/20 08:59 08/25/20 20:29 Hydralazine HCl (Apresoline) 25 mg Q6H PRN NG SBP above 160 08/11/20 22:30 11/05/20 00:29 08/12/20 15:09 Lansoprazole (Prevacid) 30 mg DAILY NG 08/30/20 09:00 09/29/20 08:59 09/04/20 08:54 Magnesium Hydroxide (Mom) 30 ml DAILYPRN PRN GT Constipation 08/12/20 09:00 09/11/20 08:59 Metoclopramide HCl (Reglan) 5 mg Q8H PRN IVP Nausea & Vomiting 08/15/20 13:00 09/14/20 12:59 Metoprolol Tartrate (Lopressor) 25 mg Q12HR NG 08/13/20 09:00 11/11/20 08:59 09/04/20 08:53 Piperacillin Sod/ Tazobactam Sod 3.375 gm/Sodium Chloride 110 ml @ 27.5 mls/hr EVERY 8 HOURS IVPB 09/02/20 14:00 09/07/20 13:59 09/04/20 05:26 Assessment/Plan Assessment/Plan ASSESSMENT: chronic encephalopathy, dementia, diffuse infiltrates, elevated BNP hypertension, recurrent falls, and urinary tract infection, hypoxemia, probable aspiration pneumonia. acute respiratory failure hypoxemic s/p trach; worsening CO2 retention PLAN care noted taper fio2- as able monitor PIP hyperventilate and increase AC rate further with noted acidemia respiratory care as is- monitor acid base vent support as is full support for now monitor imaging for change suction off load trach care GT Full code for now per family nutrition DVT prophylaxis skin care position change prognosis very poor appears worse and will follow up on acid base changes impression, plan, and exam edited and reviewed in detail care discussed with Eriberto Gilliland MD Sep 04, 2020 10:38
--- NOTE | 2020-09-04 10:56 | Infectious Diseases Prog Note ---
Assessment/Plan Assessment/Plan antibiotics : zosyn, fluconazole A 1. Right-sided pneumonia 2. COVID-19 test is negative. 3. fungal Urinary tract infection 4. Hypertension. 5. Dementia. 6. Respiratory failure s/p tracheostomy 7. leucocytosis increased 8. renal failure P 1. continue zosyn 2. continue fluconazole 5 more days 3. will follow up cultures Subjective ROS Limited/Unobtainable: Yes Allergies: Coded Allergies: VANCOMYCIN (Verified Allergy, Severe, hive, 08/27/20) Objective Last 24 Hour Vital Signs Date Time Temp Pulse Resp B/P (MAP) Pulse Ox O2 Delivery O2 Flow Rate FiO2 09/04/20 08:53 76 133/87 09/04/20 08:00 Mechanical Ventilator 09/04/20 08:00 70 09/04/20 08:00 70 09/04/20 08:00 97.8 76 26 133/87 (102) 99 09/04/20 04:00 Mechanical Ventilator 70.0 09/04/20 04:00 97.9 72 22 147/90 (109) 98 09/04/20 04:00 70 09/04/20 03:42 75 34 70 09/04/20 03:20 77 09/04/20 00:00 70 09/04/20 00:00 97.6 74 22 120/65 (83) 100 09/04/20 00:00 Mechanical Ventilator 70.0 09/04/20 00:00 70 09/03/20 23:08 74 32 70 09/03/20 20:54 69 139/63 09/03/20 20:00 97.5 69 25 139/63 (88) 100 09/03/20 20:00 Mechanical Ventilator 15.0 09/03/20 19:43 69 09/03/20 19:33 76 30 70 09/03/20 16:00 Mechanical Ventilator 15.0 09/03/20 16:00 70 09/03/20 16:00 73 09/03/20 16:00 98.9 77 19 130/69 (89) 96 09/03/20 15:20 75 29 70 09/03/20 13:20 69 29 70 09/03/20 12:53 68 31 70 09/03/20 12:00 97.1 75 18 119/45 (69) 97 09/03/20 12:00 70 09/03/20 12:00 Mechanical Ventilator 15.0 09/03/20 12:00 78 09/03/20 11:19 65 29 70 Height (Feet): 5 Height (Inches): 4.00 Weight (Pounds): 154 HEENT: status post trach Respiratory/Chest: crackles/rales Cardiovascular: normal rate, regular rhythm, no gallop/murmur Abdomen: soft, non tender Extremities: other - + edema Microbiology Date/Time Source Procedure Growth Status 09/01/20 18:40 Straight Cath Urine Culture - Final Michelle Albicans Complete Laboratory Tests Test 09/04/20 08:30 White Blood Count 21.9 K/UL (4.8-10.8) H Red Blood Count 2.95 M/UL (4.70-6.10) L Hemoglobin 8.7 G/DL (14.2-18.0) L Hematocrit 25.6 % (42.0-52.0) L Mean Corpuscular Volume 87 FL (80-99) Mean Corpuscular Hemoglobin 29.6 PG (27.0-31.0) Mean Corpuscular Hemoglobin Concent 34.1 G/DL (32.0-36.0) Red Cell Distribution Width 14.7 % (11.6-14.8) Platelet Count 88 K/UL (150-450) L Mean Platelet Volume 11.2 FL (6.5-10.1) H Neutrophils (%) (Auto) % (45.0-75.0) Lymphocytes (%) (Auto) % (20.0-45.0) Monocytes (%) (Auto) % (1.0-10.0) Eosinophils (%) (Auto) % (0.0-3.0) Basophils (%) (Auto) % (0.0-2.0) Neutrophils % (Manual) Pending Lymphocytes % (Manual) Pending Platelet Estimate Pending Platelet Morphology Pending Sodium Level 128 MMOL/L (136-145) L Potassium Level 5.4 MMOL/L (3.5-5.1) H Chloride Level 99 MMOL/L (98-107) Carbon Dioxide Level 26 MMOL/L (21-32) Anion Gap 3 mmol/L (5-15) L Blood Urea Nitrogen 48 mg/dL (7-18) H Creatinine 1.4 MG/DL (0.55-1.30) H Estimat Glomerular Filtration Rate 47.8 mL/min (>60) Glucose Level 135 MG/DL (74-106) H Calcium Level 7.1 MG/DL (8.5-10.1) L Total Bilirubin 0.2 MG/DL (0.2-1.0) Aspartate Amino Transf (AST/SGOT) 27 U/L (15-37) Alanine Aminotransferase (ALT/SGPT) 15 U/L (12-78) Alkaline Phosphatase 119 U/L (46-116) H Total Protein 3.6 G/DL (6.4-8.2) L Albumin < 0.6 G/DL (3.4-5.0) L Globulin g/dL Current Medications Medications (Trade) Dose Ordered Sig/Javon Route PRN Reason Start Time Stop Time Status Last Admin Dose Admin Amiodarone HCl (Cordarone) 200 mg DAILY NG 09/04/20 09:00 11/15/20 08:59 09/04/20 08:54 Fluconazole (Diflucan) 100 mg DAILY NG 09/03/20 09:00 09/10/20 08:59 09/04/20 08:54 Heparin Sodium (Porcine) (Heparin 5000 units/ml) 5,000 units EVERY 12 HOURS SUBQ 08/03/20 09:00 09/17/20 08:59 08/25/20 20:29 Hydralazine HCl (Apresoline) 25 mg Q6H PRN NG SBP above 160 08/11/20 22:30 11/05/20 00:29 08/12/20 15:09 Lansoprazole (Prevacid) 30 mg DAILY NG 08/30/20 09:00 09/29/20 08:59 09/04/20 08:54 Magnesium Hydroxide (Mom) 30 ml DAILYPRN PRN GT Constipation 08/12/20 09:00 09/11/20 08:59 Metoclopramide HCl (Reglan) 5 mg Q8H PRN IVP Nausea & Vomiting 08/15/20 13:00 09/14/20 12:59 Metoprolol Tartrate (Lopressor) 25 mg Q12HR NG 08/13/20 09:00 11/11/20 08:59 09/04/20 08:53 Piperacillin Sod/ Tazobactam Sod 3.375 gm/Sodium Chloride 110 ml @ 27.5 mls/hr EVERY 8 HOURS IVPB 09/02/20 14:00 09/07/20 13:59 09/04/20 05:26 Wagner Christensen MD Sep 04, 2020 10:56
[2020-09-04 12:00] VITALS: BP 112/63
--- NOTE | 2020-09-04 12:20 | NUR ---
NURSE NOTES:Patient's grand-daughter (Ruth) called to check up on patient. Informed her that patient condition has not changed and that he is still receiving antibiotics.
--- NOTE | 2020-09-04 12:46 | Surgery Progress Note ---
Surgery Progress Note Subjective Procedure Performed trach Symptoms: improved, tolerating diet, passing flatus Objective Last 24 Hour Vital Signs Date Time Temp Pulse Resp B/P (MAP) Pulse Ox O2 Delivery O2 Flow Rate FiO2 09/04/20 12:00 Mechanical Ventilator 09/04/20 12:00 70 09/04/20 12:00 70 09/04/20 12:00 98.2 93 31 112/63 (79) 99 09/04/20 08:53 76 133/87 09/04/20 08:00 Mechanical Ventilator 09/04/20 08:00 70 09/04/20 08:00 70 09/04/20 08:00 97.8 76 26 133/87 (102) 99 09/04/20 04:00 Mechanical Ventilator 70.0 09/04/20 04:00 97.9 72 22 147/90 (109) 98 09/04/20 04:00 70 09/04/20 03:42 75 34 70 09/04/20 03:20 77 09/04/20 00:00 70 09/04/20 00:00 97.6 74 22 120/65 (83) 100 09/04/20 00:00 Mechanical Ventilator 70.0 09/04/20 00:00 70 09/03/20 23:08 74 32 70 09/03/20 20:54 69 139/63 09/03/20 20:00 97.5 69 25 139/63 (88) 100 09/03/20 20:00 Mechanical Ventilator 15.0 09/03/20 19:43 69 09/03/20 19:33 76 30 70 09/03/20 16:00 Mechanical Ventilator 15.0 09/03/20 16:00 70 09/03/20 16:00 73 09/03/20 16:00 98.9 77 19 130/69 (89) 96 09/03/20 15:20 75 29 70 09/03/20 13:20 69 29 70 09/03/20 12:53 68 31 70 I&O Intake and Output 09/03/20 09/04/20 19:00 07:00 Intake Total 2020 ml 826.25 ml Output Total 800 ml 400 ml Balance 1220 ml 426.25 ml Free Water 200 ml 90 ml IV Total 1100 ml 256.25 ml Tube Feeding 480 ml 480 ml Other 240 ml Output Urine Total 800 ml 400 ml # Bowel Movements 2 3 Dressing: saturated Cardiovascular: RSR Respiratory: decreased breath sounds Abdomen: non-tender, present bowel sounds Extremities: edema, no tenderness, no cyanosis Laboratory Tests Test 09/04/20 08:30 White Blood Count 21.9 K/UL (4.8-10.8) H Red Blood Count 2.95 M/UL (4.70-6.10) L Hemoglobin 8.7 G/DL (14.2-18.0) L Hematocrit 25.6 % (42.0-52.0) L Mean Corpuscular Volume 87 FL (80-99) Mean Corpuscular Hemoglobin 29.6 PG (27.0-31.0) Mean Corpuscular Hemoglobin Concent 34.1 G/DL (32.0-36.0) Red Cell Distribution Width 14.7 % (11.6-14.8) Platelet Count 88 K/UL (150-450) L Mean Platelet Volume 11.2 FL (6.5-10.1) H Neutrophils (%) (Auto) % (45.0-75.0) Lymphocytes (%) (Auto) % (20.0-45.0) Monocytes (%) (Auto) % (1.0-10.0) Eosinophils (%) (Auto) % (0.0-3.0) Basophils (%) (Auto) % (0.0-2.0) Differential Total Cells Counted 100 Neutrophils % (Manual) 91 % (45-75) H Lymphocytes % (Manual) 1 % (20-45) L Monocytes % (Manual) 5 % (1-10) Eosinophils % (Manual) 0 % (0-3) Basophils % (Manual) 0 % (0-2) Band Neutrophils 3 % (0-8) Platelet Estimate Decreased L Platelet Morphology Normal Anisocytosis 1+ Sodium Level 128 MMOL/L (136-145) L Potassium Level 5.4 MMOL/L (3.5-5.1) H Chloride Level 99 MMOL/L (98-107) Carbon Dioxide Level 26 MMOL/L (21-32) Anion Gap 3 mmol/L (5-15) L Blood Urea Nitrogen 48 mg/dL (7-18) H Creatinine 1.4 MG/DL (0.55-1.30) H Estimat Glomerular Filtration Rate 47.8 mL/min (>60) Glucose Level 135 MG/DL (74-106) H Calcium Level 7.1 MG/DL (8.5-10.1) L Total Bilirubin 0.2 MG/DL (0.2-1.0) Aspartate Amino Transf (AST/SGOT) 27 U/L (15-37) Alanine Aminotransferase (ALT/SGPT) 15 U/L (12-78) Alkaline Phosphatase 119 U/L (46-116) H Total Protein 3.6 G/DL (6.4-8.2) L Albumin < 0.6 G/DL (3.4-5.0) L Globulin g/dL Plan Problems: (1) Pneumonia (2) Hypoxia (3) Sepsis Assessment & Plan: respiratory insufficiency prolonged ventilatory support failed weaning trials weaning vent as much as possible anticipate prolong vent support trach indicated and recommended will obtain consent plan for trach as able to wean thank you cont weaning will follow with recs s/p trach wean sedation wean vent no active bleeding noted h/h noted trend labs (4) UTI (urinary tract infection) (5) Pneumonia (6) AMS (altered mental status) Isaias Loaiza Sep 04, 2020 12:46
--- NOTE | 2020-09-04 13:18 | NUR ---
NURSE NOTES:Dr Herman rounded on patient, informed him that patient potassium is elevated at 5.4 and sodium level is low, MD stated that the feeding will correct the sodium. No new orders at this time.
[2020-09-04] MEDS ORDERED: Sodium Polystyrene Sulfonate 15gm Powder ORAL SCH (14:15)
--- NOTE | 2020-09-04 14:16 | General Progress Note ---
Subjective ROS Limited/Unobtainable: No Constitutional: Reports: malaise, weakness HEENT: Reports: no symptoms Cardiovascular: Reports: no symptoms Respiratory: Reports: shortness of breath, sputum Gastrointestinal/Abdominal: Reports: difficulty swallowing Genitourinary: Reports: no symptoms Neurologic/Psychiatric: Reports: pre-existing deficit Endocrine: Reports: no symptoms Hematologic/Lymphatic: Reports: anemia Allergies: Coded Allergies: VANCOMYCIN (Verified Allergy, Severe, hive, 08/27/20) All Systems: reviewed and negative except above Subjective No overnight events. Remains on the ventilator. Tachypneic. No fevers. Labs reviewed. White blood cell count trending higher. Poorly responsive. +ngt. + feeds. low Na. elevated k noted Objective Last 24 Hour Vital Signs Date Time Temp Pulse Resp B/P (MAP) Pulse Ox O2 Delivery O2 Flow Rate FiO2 09/04/20 12:00 Mechanical Ventilator 09/04/20 12:00 70 09/04/20 12:00 70 09/04/20 12:00 98.2 93 31 112/63 (79) 99 09/04/20 08:53 76 133/87 09/04/20 08:00 Mechanical Ventilator 09/04/20 08:00 70 09/04/20 08:00 70 09/04/20 08:00 97.8 76 26 133/87 (102) 99 09/04/20 04:00 Mechanical Ventilator 70.0 09/04/20 04:00 97.9 72 22 147/90 (109) 98 09/04/20 04:00 70 09/04/20 03:42 75 34 70 09/04/20 03:20 77 09/04/20 00:00 70 09/04/20 00:00 97.6 74 22 120/65 (83) 100 09/04/20 00:00 Mechanical Ventilator 70.0 09/04/20 00:00 70 09/03/20 23:08 74 32 70 09/03/20 20:54 69 139/63 09/03/20 20:00 97.5 69 25 139/63 (88) 100 09/03/20 20:00 Mechanical Ventilator 15.0 09/03/20 19:43 69 09/03/20 19:33 76 30 70 09/03/20 16:00 Mechanical Ventilator 15.0 09/03/20 16:00 70 09/03/20 16:00 73 09/03/20 16:00 98.9 77 19 130/69 (89) 96 09/03/20 15:20 75 29 70 Intake and Output 09/03/20 09/04/20 19:00 07:00 Intake Total 2020 ml 826.25 ml Output Total 800 ml 400 ml Balance 1220 ml 426.25 ml Free Water 200 ml 90 ml IV Total 1100 ml 256.25 ml Tube Feeding 480 ml 480 ml Other 240 ml Output Urine Total 800 ml 400 ml # Bowel Movements 2 3 Laboratory Tests 09/04/20 08:30: White Blood Count 21.9H, Red Blood Count 2.95L, Hemoglobin 8.7L, Hematocrit 25.6L, Mean Corpuscular Volume 87, Mean Corpuscular Hemoglobin 29.6, Mean Corpuscular Hemoglobin Concent 34.1, Red Cell Distribution Width 14.7, Platelet Count 88L, Mean Platelet Volume 11.2H, Neutrophils (%) (Auto) , Lymphocytes (%) (Auto) , Monocytes (%) (Auto) , Eosinophils (%) (Auto) , Basophils (%) (Auto) , Differential Total Cells Counted 100, Neutrophils % (Manual) 91H, Lymphocytes % (Manual) 1L, Monocytes % (Manual) 5, Eosinophils % (Manual) 0, Basophils % (Manual) 0, Band Neutrophils 3, Platelet Estimate DecreasedL, Platelet Morphology Normal, Anisocytosis 1+, Sodium Level 128L, Potassium Level 5.4H, Chloride Level 99, Carbon Dioxide Level 26, Anion Gap 3L, Blood Urea Nitrogen 48H, Creatinine 1.4H, Estimat Glomerular Filtration Rate 47.8, Glucose Level 135H, Calcium Level 7.1L, Total Bilirubin 0.2, Aspartate Amino Transf (AST/SGOT) 27, Alanine Aminotransferase (ALT/SGPT) 15, Alkaline Phosphatase 119H, Total Protein 3.6L, Albumin < 0.6L, Globulin Height (Feet): 5 Height (Inches): 4.00 Weight (Pounds): 154 Objective General Appearance: WD/WN, confused, thin. on the vent EENT: normal ENT inspection Neck: non-tender, normal alignment, supple. trach midline Cardiovascular: normal rate, regular rhythm Respiratory/Chest: chest wall non-tender, lungs clear, normal breath sounds, no respiratory distress, no accessory muscle use Abdomen: normal bowel sounds, non tender, soft, no organomegaly Edema: no edema noted Arm (L), no edema noted Arm (R) Assessment/Plan Problem List: (1) Pneumonia ICD Codes: J18.9 - Pneumonia, unspecified organism SNOMED: 360464294 (2) Hypoxia ICD Codes: R09.02 - Hypoxemia SNOMED: 866267806 (3) AMS (altered mental status) ICD Codes: R41.82 - Altered mental status, unspecified SNOMED: 137049019 (4) UTI (urinary tract infection) ICD Codes: N39.0 - Urinary tract infection, site not specified SNOMED: 50678619 (5) Sepsis ICD Codes: A41.9 - Sepsis, unspecified organism SNOMED: 45645784 Status: stable, not improved Assessment/Plan: vent support trach care gt when stable ID follow up regarding high wbc check urine and blood cultures abx per ID suctioning monitor labs/lytes replace as needed gt per GI dvt/stress ulcer prophylaxis turn q2 ativan for agitation melany gates dtr Chavez Valdovinos MD Sep 04, 2020 14:16
--- NOTE | 2020-09-04 14:46 | NUR ---
CASE MANAGEMENT:REVIEW 09/04/20 SI: RESP FAILURE~ S/P NEW TRACH PNA. UTI 98.2 93 31 112/63 99% ON VENT SUPPORT W/70% FIO2 WBC+21.9 H/H-8.7/25.6 PLT-88 NA-128 K+5.4 BUN+48 CR+1.4 IS: KAYEXALATE PO X1 IV ZOSYN Q8HRS DIFLUCAN NG QD IVF@100/HR AMIODARONE NG BID LOPRESSOR NG Q12 HEPARIN SQ Q12 : STEP DOWN UNIT DCP: FROM [facility] PLAN: WILL NEED SUBACUTE UPON DISCHARGE PEG PLACEMENT ONCE STABLE TITRATE OXYGEN
--- NOTE | 2020-09-04 14:55 | NUR ---
RESPIRATORY NOTE: ABG DRAWN AT THIS TIME. RAY ARGUELLES. NOTIFIED. WAITING ON MD ORDER.
[2020-09-04 16:00] VITALS: BP 138/65
--- NOTE | 2020-09-04 16:05 | NUR ---
NURSE NOTES:contacted Dr Valencia to update him on patient ABG results and vent settings. awaiting call back.
--- NOTE | 2020-09-04 17:14 | NUR ---
NURSE NOTES:Dr Valencia replied and gave order for ABG 09/05/20 [id number].
--- NOTE | 2020-09-04 19:20 | NUR ---
NURSE HAND-OFF REPORT: Important Events on Shift:Patient potassium 5.2 patietn given Kayaxelate. Patient Status:Guarded Diet: Osmolyte 1.5@40ML/HR Pending Orders: Pending Results/Labs: Pending MD notification: Latest Vital Signs: Temperature 98.6 , Pulse 64 , B/P 138 /65 , Respiratory Rate 29 , O2 SAT 98 , Mechanical Ventilator, O2 Flow Rate 70.0 . Vital Sign Comment: EKG Rhythm: Sinus Rhythm Rhythm change?: N Notified?: Aly Herman MD Response: Message left await call Latest José Fall Score: 75 Fall Risk: High Risk Safety Measures: Call light Within Reach, Bed Alarm Zone 1, Side Rails Side Rails x3, Bed position Low and Locked. Fall Precautions: Yellow Socks Yellow Gown Door Sign Patient Fall Education Report given to BLANE Caban.
--- NOTE | 2020-09-04 19:21 | NUR ---
NURSE NOTES: Received report from BLANE eRis, pt. in bed awake, with eyes open- non-verbal, no signs or symptoms of acute cardiac or respiratory distress noted, bed alarm on, side rails up x's 3 and safety brakes engaged, call light within easy reach, pt. appears to be sating well on current vent settings at 98%- AC 26, TV 500, fio2 at 70% and peep of 7- no distress noted, pt. has right NGT feeding Osmolite 1.5 running at 40cc/hr- no residual noted, [place] intact and draining to gravity, pt. remains clean and dry, RFA 20G IV intact and patent, HOB elevated- aspiration precautions observed, safety measures continued, will continue with plan of care. Addendum: 09/05/20 at 0237 by CYNTHIA SERNA RN RN correction to message above initial peep start of shift was 5 not 7.
[2020-09-04 20:00] VITALS: BP 129/88
--- NOTE | 2020-09-04 21:46 | General Progress Note ---
Subjective Allergies: Coded Allergies: VANCOMYCIN (Verified Allergy, Severe, hive, 08/27/20) Subjective above noted Non responsive RD noted Objective Last 24 Hour Vital Signs Date Time Temp Pulse Resp B/P (MAP) Pulse Ox O2 Delivery O2 Flow Rate FiO2 09/04/20 20:23 74 129/78 09/04/20 20:00 97.7 74 28 129/88 (102) 97 09/04/20 20:00 Mechanical Ventilator 09/04/20 20:00 70 09/04/20 19:36 67 27 70 09/04/20 19:34 68 09/04/20 16:00 98.6 65 29 138/65 (89) 98 09/04/20 16:00 Mechanical Ventilator 09/04/20 16:00 70 09/04/20 16:00 64 09/04/20 14:57 65 27 70 09/04/20 12:00 Mechanical Ventilator 09/04/20 12:00 70 09/04/20 12:00 70 09/04/20 12:00 98.2 93 31 112/63 (79) 99 09/04/20 11:03 62 38 70 09/04/20 08:53 76 133/87 09/04/20 08:00 Mechanical Ventilator 09/04/20 08:00 70 09/04/20 08:00 70 09/04/20 08:00 97.8 76 26 133/87 (102) 99 09/04/20 07:30 66 26 70 09/04/20 04:00 Mechanical Ventilator 70.0 09/04/20 04:00 97.9 72 22 147/90 (109) 98 09/04/20 04:00 70 09/04/20 03:42 75 34 70 09/04/20 03:20 77 09/04/20 00:00 70 09/04/20 00:00 97.6 74 22 120/65 (83) 100 09/04/20 00:00 Mechanical Ventilator 70.0 09/04/20 00:00 70 09/03/20 23:08 74 32 70 Intake and Output 09/03/20 09/04/20 19:00 07:00 Intake Total 2020 ml 826.25 ml Output Total 800 ml 400 ml Balance 1220 ml 426.25 ml Free Water 200 ml 90 ml IV Total 1100 ml 256.25 ml Tube Feeding 480 ml 480 ml Other 240 ml Output Urine Total 800 ml 400 ml # Bowel Movements 2 3 Laboratory Tests 09/04/20 08:30: White Blood Count 21.9H, Red Blood Count 2.95L, Hemoglobin 8.7L, Hematocrit 25.6L, Mean Corpuscular Volume 87, Mean Corpuscular Hemoglobin 29.6, Mean Corpuscular Hemoglobin Concent 34.1, Red Cell Distribution Width 14.7, Platelet Count 88L, Mean Platelet Volume 11.2H, Neutrophils (%) (Auto) , Lymphocytes (%) (Auto) , Monocytes (%) (Auto) , Eosinophils (%) (Auto) , Basophils (%) (Auto) , Differential Total Cells Counted 100, Neutrophils % (Manual) 91H, Lymphocytes % (Manual) 1L, Monocytes % (Manual) 5, Eosinophils % (Manual) 0, Basophils % (Manual) 0, Band Neutrophils 3, Platelet Estimate DecreasedL, Platelet Mo rphology Normal, Anisocytosis 1+, Sodium Level 128L, Potassium Level 5.4H, Chloride Level 99, Carbon Dioxide Level 26, Anion Gap 3L, Blood Urea Nitrogen 48H, Creatinine 1.4H, Estimat Glomerular Filtration Rate 47.8, Glucose Level 135H, Calcium Level 7.1L, Total Bilirubin 0.2, Aspartate Amino Transf (AST/SGOT) 27, Alanine Aminotransferase (ALT/SGPT) 15, Alkaline Phosphatase 119H, Total Protein 3.6L, Albumin < 0.6L, Globulin 09/04/20 14:55: Arterial Blood pH 7.244*L, Arterial Blood Partial Pressure CO2 66.0*H, Arterial Blood Partial Pressure O2 73.8L, Arterial Blood HCO3 27.9H, Arterial Blood Oxygen Saturation 94.0L, Arterial Blood Base Excess -0.1, Emile Test Positive Height (Feet): 5 Height (Inches): 4.00 Weight (Pounds): 154 Objective Elderly man unresponsive NCAT supple scattered ronchi RR abd soft trace edema Assessment/Plan Status: stable, not improved Assessment/Plan: Assessment - Leukocytosis - respiratory failure - s/p Trach - Parox a fib - acute myocardial ischemia - PNA/sepsis - dysphagia - elevated glucose - poor prognosis Recommendations - Change TF to glucerna - Increase rate to meet demands - PEG once stablized - ID follow up - Pulmonary toilet Arely Parks MD Sep 04, 2020 21:46
[2020-09-05] VITALS: BP 122/69
--- NOTE | 2020-09-05 00:19 | Cardiology Progress Note ---
Subjective DATE OF SERVICE: Sep 02, 2020 Remains on vent via trach; O2 requirements remain high. Remains tachypneic with WBC of 20K BP readings stable Monitor: sinus rhythm with episodes of bradycardia now. Na levels and renal parameters slowly normalizing on hypotonic IVF. ABG (09/02) 7.23/69/76 Venous Duplex: occluded cephalic vein associated with PICC access Objective Last 24 Hour Vital Signs 132/60 42-72 18-26 afebrile ROS: unchanged from my evaluation of 08/02/20 HEENT: Mechanically Ventilated, Thin Trach secretions RHYTHM: NSR, PACs, Afib LUNGS: bilateral rhonchi, respiratory distress, trach site clean CARDIAC: normal S1 and S2, irregularly irregular, systolic murmur - 1/6 systolic murmurat apex, rapid rate ABDOMEN: normal bowel sounds, non tender, soft, no organomegaly, other - NGTube EXTREMITIES: normal range of motion, trace edema Laboratory Tests reviewed Assessment/Plan Assessment/Plan Status post uncomplicated trach. Paroxysmal atrial fibrillation with RVR Acute myocardial ischemia with elevated troponin Aspiration risk Sepsis Healthcare acquired PNA Complicated UTI with indwelling catheter Hyponatremia Severe protein calorie malnutrition Acute myocardial ischemia Respiratory failure with hypoxia and hypercarbia - now on mech ventilation Hypokalemia Leukocytosis improving Ac/chronic diastolic CHF Dehydration/hypernatremia resolved into hyponatremia Hypokalemia Acute renal failure Occluded left cephalic vein Ac/chr respiratory acidosis Trach care Antimicrobials per ID Vent support - adjust settings. NGTube feedings on hold for asp'n; PEG postponed DVT prophylaxis Continue amiodarone; advanced dose for additional loading. Titrate anti-HTN regimen as needed. Sarkis Herman MD Sep 05, 2020 00:19
--- NOTE | 2020-09-05 00:22 | Cardiology Progress Note ---
Subjective DATE OF SERVICE: Sep 04, 2020 Remains on vent via trach; O2 requirements remain high. Remains tachypneic with WBC of 20K BP readings stable Monitor: sinus rhythm with paroxysms of atrial fibrillation. Na levels and renal parameters slowly normalizing on hypotonic IVF. ABG (09/04) 7.24/66/74 Venous Duplex: occluded cephalic vein associated with PICC access Objective Last 24 Hour Vital Signs Date Time Temp Pulse Resp B/P (MAP) Pulse Ox O2 Delivery O2 Flow Rate FiO2 09/05/20 00:00 97.8 66 28 122/69 (86) 99 09/04/20 23:27 61 26 70 09/04/20 20:23 74 129/78 09/04/20 20:00 97.7 74 28 129/88 (102) 97 09/04/20 20:00 Mechanical Ventilator 09/04/20 20:00 70 09/04/20 19:36 67 27 70 09/04/20 19:34 68 09/04/20 16:00 98.6 65 29 138/65 (89) 98 09/04/20 16:00 Mechanical Ventilator 09/04/20 16:00 70 09/04/20 16:00 64 09/04/20 14:57 65 27 70 09/04/20 12:00 Mechanical Ventilator 09/04/20 12:00 70 09/04/20 12:00 70 09/04/20 12:00 98.2 93 31 112/63 (79) 99 09/04/20 11:03 62 38 70 09/04/20 08:53 76 133/87 09/04/20 08:00 Mechanical Ventilator 09/04/20 08:00 70 09/04/20 08:00 70 09/04/20 08:00 97.8 76 26 133/87 (102) 99 09/04/20 07:30 66 26 70 09/04/20 04:00 Mechanical Ventilator 70.0 09/04/20 04:00 97.9 72 22 147/90 (109) 98 09/04/20 04:00 70 09/04/20 03:42 75 34 70 09/04/20 03:20 77 ROS: unchanged from my evaluation of 08/02/20 HEENT: Mechanically Ventilated, Thin Trach secretions RHYTHM: NSR, PACs, Afib LUNGS: bilateral rhonchi, respiratory distress, trach site clean CARDIAC: normal S1 and S2, irregularly irregular, systolic murmur - 1/6 systolic murmurat apex, rapid rate ABDOMEN: normal bowel sounds, non tender, soft, no organomegaly, other - NGTube EXTREMITIES: normal range of motion, trace edema Laboratory Tests Test 09/04/20 08:30 09/04/20 14:55 White Blood Count 21.9 K/UL (4.8-10.8) H Red Blood Count 2.95 M/UL (4.70-6.10) L Hemoglobin 8.7 G/DL (14.2-18.0) L Hematocrit 25.6 % (42.0-52.0) L Mean Corpuscular Volume 87 FL (80-99) Mean Corpuscular Hemoglobin 29.6 PG (27.0-31.0) Mean Corpuscular Hemoglobin Concent 34.1 G/DL (32.0-36.0) Red Cell Distribution Width 14.7 % (11.6-14.8) Platelet Count 88 K/UL (150-450) L Mean Platelet Volume 11.2 FL (6.5-10.1) H Neutrophils (%) (Auto) % (45.0-75.0) Lymphocytes (%) (Auto) % (20.0-45.0) Monocytes (%) (Auto) % (1.0-10.0) Eosinophils (%) (Auto) % (0.0-3.0) Basophils (%) (Auto) % (0.0-2.0) Differential Total Cells Counted 100 Neutrophils % (Manual) 91 % (45-75) H Lymphocytes % (Manual) 1 % (20-45) L Monocytes % (Manual) 5 % (1-10) Eosinophils % (Manual) 0 % (0-3) Basophils % (Manual) 0 % (0-2) Band Neutrophils 3 % (0-8) Platelet Estimate Decreased L Platelet Morphology Normal Anisocytosis 1+ Sodium Level 128 MMOL/L (136-145) L Potassium Level 5.4 MMOL/L (3.5-5.1) H Chloride Level 99 MMOL/L (98-107) Carbon Dioxide Level 26 MMOL/L (21-32) Anion Gap 3 mmol/L (5-15) L Blood Urea Nitrogen 48 mg/dL (7-18) H Creatinine 1.4 MG/DL (0.55-1.30) H Estimat Glomerular Filtration Rate 47.8 mL/min (>60) Glucose Level 135 MG/DL (74-106) H Calcium Level 7.1 MG/DL (8.5-10.1) L Total Bilirubin 0.2 MG/DL (0.2-1.0) Aspartate Amino Transf (AST/SGOT) 27 U/L (15-37) Alanine Aminotransferase (ALT/SGPT) 15 U/L (12-78) Alkaline Phosphatase 119 U/L (46-116) H Total Protein 3.6 G/DL (6.4-8.2) L Albumin < 0.6 G/DL (3.4-5.0) L Globulin g/dL Arterial Blood pH 7.244 (7.350-7.450) Arterial Blood Partial Pressure CO2 66.0 mmHg (35.0-45.0) *H Arterial Blood Partial Pressure O2 73.8 mmHg (75.0-100.0) L Arterial Blood HCO3 27.9 mmol/L (22.0-26.0) H Arterial Blood Oxygen Saturation 94.0 % (95-100) L Arterial Blood Base Excess -0.1 (-2-2) Emile Test Positive Assessment/Plan Assessment/Plan Status post uncomplicated trach. Paroxysmal atrial fibrillation with RVR Acute myocardial ischemia with elevated troponin Aspiration risk Sepsis Healthcare acquired PNA Complicated UTI with indwelling catheter Hyponatremia Severe protein calorie malnutrition Acute myocardial ischemia Respiratory failure with hypoxia and hypercarbia - now on mech ventilation Hypokalemia Leukocytosis improving Ac/chronic diastolic CHF Dehydration/hypernatremia resolved into hyponatremia Hypokalemia Acute renal failure Occluded left cephalic vein Trach care Antimicrobials per ID Vent support with setting sdjusted. NGTube feedings on hold for asp'n; PEG postponed DVT prophylaxis Continue amiodarone - maintenance dose; titrate beta katya. Titrate anti-HTN regimen as needed. Sarkis Herman MD Sep 05, 2020 00:22
--- NOTE | 2020-09-05 01:00 | NUR ---
NURSE NOTES: bed bath given and linens changed- oral care provided, repositioned and turned pt., pt. appears to be sating well on current vent settings at 100%- no distress noted- aspiration precautions continued, will continue to monitor pt. and with plan of care.
--- NOTE | 2020-09-05 01:32 | NUR ---
RESPIRATORY NOTE: Changed Vent settings to AC 28, Vt 550, Peep 10. Pt is current SpO2 is at 92%, Peak pressures increased to 80 and above. Will monitor closely if Patient shows signs of respiratory distress.
[2020-09-05 04:00] VITALS: BP 116/73
[2020-09-05 04:42] LABS: HEMATOCRIT 23.1 % (42.0-52.0); HEMOGLOBIN 7.8 G/DL (14.2-18.0); MEAN CORPUSCULAR VOLUME 89 FL (80-99); PLATELET COUNT 76 K/UL (150-450); RED BLOOD COUNT 2.58 M/UL (4.70-6.10); RED CELL DISTRIBUTION WIDTH 13.4 % (11.6-14.8); WHITE BLOOD COUNT 17.5 K/UL (4.8-10.8)
[2020-09-05 04:57] LABS: ALBUMIN 0.6 G/DL (3.4-5.0); ALBUMIN/GLOBULIN RATIO 0.2 (1.0-2.7); BILIRUBIN,TOTAL 0.2 MG/DL (0.2-1.0); CALCIUM 7.4 MG/DL (8.5-10.1); CREATININE 1.5 MG/DL (0.55-1.30); POTASSIUM 4.5 MMOL/L (3.5-5.1)
[2020-09-05] MEDS: Piperacillin/Tazobactam 3.375 GM in NS 110 ML IVPB SCH ×3 (05:00→22:25)
--- NOTE | 2020-09-05 05:23 | NUR ---
NURSE NOTES: left message for DR. Herman- peak pressures showing >80- per Rt may need to change peep- awaiting for call back from doctor. Addendum: 09/05/20 at 05 by CYNTHIA SERNA RN RN pt. sating at 100%- will continue to monitor pt. and with plan of care. Addendum: 09/05/20 at 05 by CYNTHIA SERNA RN RN pts. work of breathing appears to have increased- will continue to monitor pt.- awaiting for call back from doctor.
--- NOTE | 2020-09-05 07:08 | NUR ---
NURSE HAND-OFF REPORT: Important Events on Shift:vent settings changed by Virgil KURTZ Patient Status: fair Diet: Glucerna 1.5 Pending Orders: Pending Results/Labs: Pending MD notification: Latest Vital Signs: Temperature 98.0 , Pulse 68 , B/P 116 /73 , Respiratory Rate 28 , O2 SAT 100 , Mechanical Ventilator, O2 Flow Rate 70.0 . Vital Sign Comment: EKG Rhythm: Sinus Rhythem Rhythm change?:n MD Notified?: MD Response: Latest José Fall Score: 75 Fall Risk: High Risk Safety Measures: Call light Within Reach, Bed Alarm Zone 1, Side Rails Side Rails x3, Bed position Low and Locked. Fall Precautions: Yellow Socks Yellow Gown Door Sign Patient Fall Education Report given to Milagros Reis, aware to f/u on any abnormal am labs.
--- NOTE | 2020-09-05 07:10 | NUR ---
NURSE NOTES:Handoff received from BLANE Caban. Patient received in resting in bed, eyes are open but patient does not follow commands. Patient is non-verbal due to trach to vent with following settings: Shiley 8, AC 28, TV 550. FI02 80% and PEEP 10, tolerating well with 02 saturation of 100% electronic device monitor is on showing HR of 71 Patient is placed on contact isolation, fall and aspiration precautions in place, with call light at bedside and bed in the low and locked position, HOB is elevated to 30% patient has feeding running Glucerna 1.5 @ 50ML/HR in right NG tube placed at 65CM taped to nose. Overton is patent and draining to gravity, scrotal edema noted. IV sites are clean dry and intact saline locked. will follow plan of care.
[2020-09-05 08:00] VITALS: BP 131/71
[2020-09-05] MEDS: Amiodarone 200mg tab NG SCH (08:28)
[2020-09-05] MEDS: Fluconazole 100mg tab NG SCH (08:28)
[2020-09-05] MEDS: Heparin 5000 units/ml inj SUBQ SCH ×2 (08:29→20:22)
--- NOTE | 2020-09-05 10:20 | NUR ---
NURSE NOTES:Grand-daughter called asking for update on patient status. Informed her that patient status is unchanged since yesterday. Requested vent setting information, which was provided.
[2020-09-05 12:00] VITALS: BP 112/65
--- NOTE | 2020-09-05 12:26 | General Progress Note ---
Subjective ROS Limited/Unobtainable: No Constitutional: Reports: malaise, weakness HEENT: Reports: no symptoms Cardiovascular: Reports: no symptoms Respiratory: Reports: cough, shortness of breath Gastrointestinal/Abdominal: Reports: difficulty swallowing Genitourinary: Reports: no symptoms Neurologic/Psychiatric: Reports: pre-existing deficit Endocrine: Reports: no symptoms Hematologic/Lymphatic: Reports: anemia Allergies: Coded Allergies: VANCOMYCIN (Verified Allergy, Severe, hive, 08/27/20) All Systems: reviewed and negative except above Subjective no change. vent dependent. increase fio2 requirements. no fevers or chills. labs reviewed. cxr worse. Objective Last 24 Hour Vital Signs Date Time Temp Pulse Resp B/P (MAP) Pulse Ox O2 Delivery O2 Flow Rate FiO2 09/05/20 12:00 98.1 60 28 112/65 (81) 98 09/05/20 12:00 70 09/05/20 11:54 Mechanical Ventilator 09/05/20 11:53 80 09/05/20 08:28 78 131/71 09/05/20 08:00 97.9 78 32 131/71 (91) 99 09/05/20 08:00 80 09/05/20 08:00 Mechanical Ventilator 09/05/20 08:00 75 09/05/20 07:15 65 28 70 09/05/20 04:00 Mechanical Ventilator 09/05/20 04:00 98.0 68 28 116/73 (87) 100 09/05/20 04:00 70 09/05/20 03:28 57 09/05/20 03:27 60 31 70 09/05/20 00:15 70 09/05/20 00:00 Mechanical Ventilator 09/05/20 00:00 97.8 66 28 122/69 (86) 99 09/05/20 00:00 70 09/04/20 23:59 61 09/04/20 23:27 61 26 70 09/04/20 20:23 74 129/78 09/04/20 20:00 97.7 74 28 129/88 (102) 97 09/04/20 20:00 Mechanical Ventilator 09/04/20 20:00 70 09/04/20 19:36 67 27 70 09/04/20 19:34 68 09/04/20 16:00 98.6 65 29 138/65 (89) 98 09/04/20 16:00 Mechanical Ventilator 09/04/20 16:00 70 09/04/20 16:00 64 09/04/20 14:57 65 27 70 Intake and Output 09/04/20 09/05/20 19:00 07:00 Intake Total 800 ml 735.0 ml Output Total 425 ml 400 ml Balance 375 ml 335.0 ml Free Water 240 ml IV Total 165.0 ml Tube Feeding 560 ml 570 ml Output Urine Total 425 ml 400 ml Laboratory Tests 09/04/20 14:55: Arterial Blood pH 7.244*L, Arterial Blood Partial Pressure CO2 66.0*H, Arterial Blood Partial Pressure O2 73.8L, Arterial Blood HCO3 27.9H, Arterial Blood Oxygen Saturation 94.0L, Arterial Blood Base Excess -0.1, Emile Test Positive 09/05/20 03:20: White Blood Count 17.5H, Red Blood Count 2.58L, Hemoglobin 7.8L, Hematocrit 23.1L, Mean Corpuscular Volume 89, Mean Corpuscular Hemoglobin 30.3, Mean Corpuscular Hemoglobin Concent 34.0, Red Cell Distribution Width 13.4, Platelet Count 76L, Mean Platelet Volume 12.6H, Neutrophils (%) (Auto) , Lymphocytes (%) (Auto) , Monocytes (%) (Auto) , Eosinophils (%) (Auto) , Basophils (%) (Auto) , Differential Total Cells Counted 100, Neutrophils % (Manual) 92H, Lymphocytes % (Manual) 5L, Monocytes % (Manual) 2, Eosinophils % (Manual) 1, Basophils % (Manual) 0, Band Neutrophils 0, Platelet Estimate DecreasedL, Platelet Morphology Normal, Hypochromasia 1+, Anisocytosis 1+, Sodium Level 130L, Potassium Level 4.5, Chloride Level 100, Carbon Dioxide Level 29, Anion Gap 1L, Blood Urea Nitrogen 51H, Creatinine 1.5H, Estimat Glomerular Filtration Rate 44.2, Glucose Level 106, Calcium Level 7.4L, Magnesium Level 2.1, Total Bilirubin 0.2, Aspartate Amino Transf (AST/SGOT) 23, Alanine Aminotransferase (ALT/SGPT) 19, Alkaline Phosphatase 150H, Total Protein 4.4L, Albumin 0.6L, Globulin 3.8, Albumin/Globulin Ratio 0.2L 09/05/20 08:08: Arterial Blood pH 7.303L, Arterial Blood Partial Pressure CO2 56.0*H, Arterial Blood Partial Pressure O2 95.1, Arterial Blood HCO3 27.1H, Arterial Blood Oxygen Saturation 96.8, Arterial Blood Base Excess 0.4, Emile Test Positive Height (Feet): 5 Height (Inches): 4.00 Weight (Pounds): 154 Objective General Appearance: WD/WN, confused, thin. on the vent EENT: normal ENT inspection Neck: non-tender, normal alignment, supple. trach midline Cardiovascular: normal rate, regular rhythm Respiratory/Chest: chest wall non-tender, lungs clear, normal breath sounds, no respiratory distress, no accessory muscle use Abdomen: normal bowel sounds, non tender, soft, no organomegaly Edema: no edema noted Arm (L), no edema noted Arm (R) Assessment/Plan Problem List: (1) Pneumonia ICD Codes: J18.9 - Pneumonia, unspecified organism SNOMED: 389691063 (2) Hypoxia ICD Codes: R09.02 - Hypoxemia SNOMED: 585725638 (3) AMS (altered mental status) ICD Codes: R41.82 - Altered mental status, unspecified SNOMED: 083614629 (4) UTI (urinary tract infection) ICD Codes: N39.0 - Urinary tract infection, site not specified SNOMED: 99923485 (5) Sepsis ICD Codes: A41.9 - Sepsis, unspecified organism SNOMED: 71012158 Status: stable, not improved Assessment/Plan: vent support trach care gt when stable abx per ID suctioning monitor labs/lytes replace as needed gt per GI dvt/stress ulcer prophylaxis turn q2 ativan for agitation melany gates dtr Chavez Valdovinos MD Sep 05, 2020 12:26
--- NOTE | 2020-09-05 14:38 | General Progress Note ---
Subjective Allergies: Coded Allergies: VANCOMYCIN (Verified Allergy, Severe, hive, 08/27/20) Subjective above noted Non responsive d/w RN Objective Last 24 Hour Vital Signs Date Time Temp Pulse Resp B/P (MAP) Pulse Ox O2 Delivery O2 Flow Rate FiO2 09/05/20 12:00 98.1 60 28 112/65 (81) 98 09/05/20 12:00 70 09/05/20 11:54 Mechanical Ventilator 09/05/20 11:53 80 09/05/20 08:28 78 131/71 09/05/20 08:00 97.9 78 32 131/71 (91) 99 09/05/20 08:00 80 09/05/20 08:00 Mechanical Ventilator 09/05/20 08:00 75 09/05/20 07:15 65 28 70 09/05/20 04:00 Mechanical Ventilator 09/05/20 04:00 98.0 68 28 116/73 (87) 100 09/05/20 04:00 70 09/05/20 03:28 57 09/05/20 03:27 60 31 70 09/05/20 00:15 70 09/05/20 00:00 Mechanical Ventilator 09/05/20 00:00 97.8 66 28 122/69 (86) 99 09/05/20 00:00 70 09/04/20 23:59 61 09/04/20 23:27 61 26 70 09/04/20 20:23 74 129/78 09/04/20 20:00 97.7 74 28 129/88 (102) 97 09/04/20 20:00 Mechanical Ventilator 09/04/20 20:00 70 09/04/20 19:36 67 27 70 09/04/20 19:34 68 09/04/20 16:00 98.6 65 29 138/65 (89) 98 09/04/20 16:00 Mechanical Ventilator 09/04/20 16:00 70 09/04/20 16:00 64 09/04/20 14:57 65 27 70 Intake and Output 09/04/20 09/05/20 19:00 07:00 Intake Total 800 ml 735.0 ml Output Total 425 ml 400 ml Balance 375 ml 335.0 ml Free Water 240 ml IV Total 165.0 ml Tube Feeding 560 ml 570 ml Output Urine Total 425 ml 400 ml Laboratory Tests 09/04/20 14:55: Arterial Blood pH 7.244*L, Arterial Blood Partial Pressure CO2 66.0*H, Arterial Blood Partial Pressure O2 73.8L, Arterial Blood HCO3 27.9H, Arterial Blood Oxygen Saturation 94.0L, Arterial Blood Base Excess -0.1, Emile Test Positive 09/05/20 03:20: White Blood Count 17.5H, Red Blood Count 2.58L, Hemoglobin 7.8L, Hematocrit 23.1L, Mean Corpuscular Volume 89, Mean Corpuscular Hemoglobin 30.3, Mean Corpuscular Hemoglobin Concent 34.0, Red Cell Distribution Width 13.4, Platelet Count 76L, Mean Platelet Volume 12.6H, Neutrophils (%) (Auto) , Lymphocytes (%) (Auto) , Monocytes (%) (Auto) , Eosinophils (%) (Auto) , Basophils (%) (Auto) , Differential Total Cells Counted 100, Neutrophils % (Manual) 92H, Lymphocytes % (Manual) 5L, Monocytes % (Manual) 2, Eosinophils % (Manual) 1, Basophils % (Manual) 0, Band Neutrophils 0, Platelet Estimate DecreasedL, Platelet Morphology Normal, Hypochromasia 1+, Anisocytosis 1+, Sodium Level 130L, Potassium Level 4.5, Chloride Level 100, Carbon Dioxide Level 29, Anion Gap 1L, Blood Urea Nitrogen 51H, Creatinine 1.5H, Estimat Glomerular Filtration Rate 44.2, Glucose Level 106, Calcium Level 7.4L, Magnesium Level 2.1, Total Bilirubin 0.2, Aspartate Amino Transf (AST/SGOT) 23, Alanine Aminotransferase (ALT/SGPT) 19, Alkaline Phosphatase 150H, Total Protein 4.4L, Albumin 0.6L, Globulin 3.8, Albumin/Globulin Ratio 0.2L 09/05/20 08:08: Arterial Blood pH 7.303L, Arterial Blood Partial Pressure CO2 56.0*H, Arterial Blood Partial Pressure O2 95.1, Arterial Blood HCO3 27.1H, Arterial Blood Oxygen Saturation 96.8, Arterial Blood Base Excess 0.4, Emile Test Positive Height (Feet): 5 Height (Inches): 4.00 Weight (Pounds): 154 Objective Elderly man unresponsive NCAT supple scattered ronchi RR abd soft trace edema Assessment/Plan Status: stable, not improved Assessment/Plan: Assessment - Leukocytosis - respiratory failure - s/p Trach - Parox a fib - acute myocardial ischemia - PNA/sepsis - dysphagia - elevated glucose - poor prognosis Recommendations - glucerna TF - Increase rate to meet demands - PEG once stablized - ID follow up - Pulmonary toilet Arely Parks MD Sep 05, 2020 14:38
--- NOTE | 2020-09-05 15:12 | NUR ---
NURSE NOTES:Left a message for Dr Herman emergency line regarding patient hemoglobin level of 7.8, awaiting MD response.
[2020-09-05 16:00] VITALS: BP 147/64
--- NOTE | 2020-09-05 17:31 | NUR ---
NURSE NOTES:attempted to upload pictures more than 5 times, unable to upload pictures. when assigning form ID patient is not showing up in the system.
--- NOTE | 2020-09-05 17:35 | NUR ---
NURSE NOTES:Dr Herman rounded on patient and is aware of hemoglobin, no new orders at this time.
--- NOTE | 2020-09-05 18:12 | Surgery Progress Note ---
Surgery Progress Note Subjective Procedure Performed trach Symptoms: worse Additional Comments cxr worsening needs more support unfortunately not turning the corner. Objective Last 24 Hour Vital Signs Date Time Temp Pulse Resp B/P (MAP) Pulse Ox O2 Delivery O2 Flow Rate FiO2 09/05/20 16:00 86 09/05/20 16:00 Mechanical Ventilator 09/05/20 16:00 70 09/05/20 16:00 98.4 74 28 147/64 (91) 98 09/05/20 15:05 72 34 70 09/05/20 12:00 98.1 60 28 112/65 (81) 98 09/05/20 12:00 70 09/05/20 11:54 Mechanical Ventilator 09/05/20 11:53 80 09/05/20 11:00 74 45 70 09/05/20 08:28 78 131/71 09/05/20 08:00 97.9 78 32 131/71 (91) 99 09/05/20 08:00 80 09/05/20 08:00 Mechanical Ventilator 09/05/20 08:00 75 09/05/20 07:15 65 28 70 09/05/20 04:00 Mechanical Ventilator 09/05/20 04:00 98.0 68 28 116/73 (87) 100 09/05/20 04:00 70 09/05/20 03:28 57 09/05/20 03:27 60 31 70 09/05/20 00:15 70 09/05/20 00:00 Mechanical Ventilator 09/05/20 00:00 97.8 66 28 122/69 (86) 99 09/05/20 00:00 70 09/04/20 23:59 61 09/04/20 23:27 61 26 70 09/04/20 20:23 74 129/78 09/04/20 20:00 97.7 74 28 129/88 (102) 97 09/04/20 20:00 Mechanical Ventilator 09/04/20 20:00 70 09/04/20 19:36 67 27 70 09/04/20 19:34 68 I&O Intake and Output 09/04/20 09/05/20 19:00 07:00 Intake Total 800 ml 735.0 ml Output Total 425 ml 400 ml Balance 375 ml 335.0 ml Free Water 240 ml IV Total 165.0 ml Tube Feeding 560 ml 570 ml Output Urine Total 425 ml 400 ml Dressing: saturated Cardiovascular: RSR Respiratory: decreased breath sounds Abdomen: non-tender, present bowel sounds Extremities: no tenderness, no cyanosis Laboratory Tests Test 09/05/20 03:20 09/05/20 08:08 White Blood Count 17.5 K/UL (4.8-10.8) H Red Blood Count 2.58 M/UL (4.70-6.10) L Hemoglobin 7.8 G/DL (14.2-18.0) L Hematocrit 23.1 % (42.0-52.0) L Mean Corpuscular Volume 89 FL (80-99) Mean Corpuscular Hemoglobin 30.3 PG (27.0-31.0) Mean Corpuscular Hemoglobin Concent 34.0 G/DL (32.0-36.0) Red Cell Distribution Width 13.4 % (11.6-14.8) Platelet Count 76 K/UL (150-450) L Mean Platelet Volume 12.6 FL (6.5-10.1) H Neutrophils (%) (Auto) % (45.0-75.0) Lymphocytes (%) (Auto) % (20.0-45.0) Monocytes (%) (Auto) % (1.0-10.0) Eosinophils (%) (Auto) % (0.0-3.0) Basophils (%) (Auto) % (0.0-2.0) Differential Total Cells Counted 100 Neutrophils % (Manual) 92 % (45-75) H Lymphocytes % (Manual) 5 % (20-45) L Monocytes % (Manual) 2 % (1-10) Eosinophils % (Manual) 1 % (0-3) Basophils % (Manual) 0 % (0-2) Band Neutrophils 0 % (0-8) Platelet Estimate Decreased L Platelet Morphology Normal Hypochromasia 1+ Anisocytosis 1+ Sodium Level 130 MMOL/L (136-145) L Potassium Level 4.5 MMOL/L (3.5-5.1) Chloride Level 100 MMOL/L (98-107) Carbon Dioxide Level 29 MMOL/L (21-32) Anion Gap 1 mmol/L (5-15) L Blood Urea Nitrogen 51 mg/dL (7-18) H Creatinine 1.5 MG/DL (0.55-1.30) H Estimat Glomerular Filtration Rate 44.2 mL/min (>60) Glucose Level 106 MG/DL (74-106) Calcium Level 7.4 MG/DL (8.5-10.1) L Magnesium Level 2.1 MG/DL (1.8-2.4) Total Bilirubin 0.2 MG/DL (0.2-1.0) Aspartate Amino Transf (AST/SGOT) 23 U/L (15-37) Alanine Aminotransferase (ALT/SGPT) 19 U/L (12-78) Alkaline Phosphatase 150 U/L (46-116) H Total Protein 4.4 G/DL (6.4-8.2) L Albumin 0.6 G/DL (3.4-5.0) L Globulin 3.8 g/dL Albumin/Globulin Ratio 0.2 (1.0-2.7) L Arterial Blood pH 7.303 (7.350-7.450) Arterial Blood Partial Pressure CO2 56.0 mmHg (35.0-45.0) *H Arterial Blood Partial Pressure O2 95.1 mmHg (75.0-100.0) Arterial Blood HCO3 27.1 mmol/L (22.0-26.0) H Arterial Blood Oxygen Saturation 96.8 % (95-100) Arterial Blood Base Excess 0.4 (-2-2) Emile Test Positive Plan Problems: (1) Pneumonia (2) Hypoxia (3) Sepsis Assessment & Plan: respiratory insufficiency prolonged ventilatory support failed weaning trials weaning vent as much as possible anticipate prolong vent support trach indicated and recommended will obtain consent plan for trach as able to wean thank you cont weaning will follow with recs s/p trach wean sedation wean vent no active bleeding noted h/h noted trend labs (4) UTI (urinary tract infection) (5) Pneumonia (6) AMS (altered mental status) Isaias Loaiza Sep 05, 2020 18:11
--- NOTE | 2020-09-05 18:50 | Pulmonology Progress Note ---
Subjective ROS Limited/Unobtainable: Yes Constitutional: Denies: fever Allergies: Coded Allergies: VANCOMYCIN (Verified Allergy, Severe, hive, 08/27/20) All Systems: reviewed and negative except above Subjective care noted/ d/w nursing in detail on vent/ repeat ABG noted and overall worse trach in place worsening acidosis and hypoxemia noted poor LOC noted changes reviewed Objective Last 24 Hour Vital Signs Date Time Temp Pulse Resp B/P (MAP) Pulse Ox O2 Delivery O2 Flow Rate FiO2 09/05/20 16:00 86 09/05/20 16:00 Mechanical Ventilator 09/05/20 16:00 70 09/05/20 16:00 98.4 74 28 147/64 (91) 98 09/05/20 15:05 72 34 70 09/05/20 12:00 98.1 60 28 112/65 (81) 98 09/05/20 12:00 70 09/05/20 11:54 Mechanical Ventilator 09/05/20 11:53 80 09/05/20 11:00 74 45 70 09/05/20 08:28 78 131/71 09/05/20 08:00 97.9 78 32 131/71 (91) 99 09/05/20 08:00 80 09/05/20 08:00 Mechanical Ventilator 09/05/20 08:00 75 09/05/20 07:15 65 28 70 09/05/20 04:00 Mechanical Ventilator 09/05/20 04:00 98.0 68 28 116/73 (87) 100 09/05/20 04:00 70 09/05/20 03:28 57 09/05/20 03:27 60 31 70 09/05/20 00:15 70 09/05/20 00:00 Mechanical Ventilator 09/05/20 00:00 97.8 66 28 122/69 (86) 99 09/05/20 00:00 70 09/04/20 23:59 61 09/04/20 23:27 61 26 70 09/04/20 20:23 74 129/78 09/04/20 20:00 97.7 74 28 129/88 (102) 97 09/04/20 20:00 Mechanical Ventilator 09/04/20 20:00 70 09/04/20 19:36 67 27 70 09/04/20 19:34 68 Intake and Output 09/04/20 09/05/20 19:00 07:00 Intake Total 800 ml 735.0 ml Output Total 425 ml 400 ml Balance 375 ml 335.0 ml Free Water 240 ml IV Total 165.0 ml Tube Feeding 560 ml 570 ml Output Urine Total 425 ml 400 ml Objective WDWN NAD reduced breath sounds bilaterally with scattered rhonchi worse [id number] without MRG NABS nontender no distention; feeding tub no CCE nonfocal trach in place poorly responsive obtunded Laboratory Tests 09/05/20 03:20: White Blood Count 17.5H, Red Blood Count 2.58L, Hemoglobin 7.8L, Hematocrit 23.1L, Mean Corpuscular Volume 89, Mean Corpuscular Hemoglobin 30.3, Mean Corpuscular Hemoglobin Concent 34.0, Red Cell Distribution Width 13.4, Platelet Count 76L, Mean Platelet Volume 12.6H, Neutrophils (%) (Auto) , Lymphocytes (%) (Auto) , Monocytes (%) (Auto) , Eosinophils (%) (Auto) , Basophils (%) (Auto) , Differential Total Cells Counted 100, Neutrophils % (Manual) 92H, Lymphocytes % (Manual) 5L, Monocytes % (Manual) 2, Eosinophils % (Manual) 1, Basophils % (Manual) 0, Band Neutrophils 0, Platelet Estimate DecreasedL, Platelet Morphology Normal, Hypochromasia 1+, Anisocytosis 1+, Sodium Level 130L, Potassium Level 4.5, Chloride Level 100, Carbon Dioxide Level 29, Anion Gap 1L, Blood Urea Nitrogen 51H, Creatinine 1.5H, Estimat Glomerular Filtration Rate 44.2, Glucose Level 106, Calcium Level 7.4L, Magnesium Level 2.1, Total Bili chaney 0.2, Aspartate Amino Transf (AST/SGOT) 23, Alanine Aminotransferase (ALT/SGPT) 19, Alkaline Phosphatase 150H, Total Protein 4.4L, Albumin 0.6L, Globulin 3.8, Albumin/Globulin Ratio 0.2L 09/05/20 08:08: Arterial Blood pH 7.303L, Arterial Blood Partial Pressure CO2 56.0*H, Arterial Blood Partial Pressure O2 95.1, Arterial Blood HCO3 27.1H, Arterial Blood Oxygen Saturation 96.8, Arterial Blood Base Excess 0.4, Emile Test Positive Current Medications Medications (Trade) Dose Ordered Sig/Javon Route PRN Reason Start Time Stop Time Status Last Admin Dose Admin Amiodarone HCl (Cordarone) 200 mg DAILY NG 09/04/20 09:00 11/15/20 08:59 09/05/20 08:28 Fluconazole (Diflucan) 100 mg DAILY NG 09/03/20 09:00 09/10/20 08:59 09/05/20 08:28 Heparin Sodium (Porcine) (Heparin 5000 units/ml) 5,000 units EVERY 12 HOURS SUBQ 08/03/20 09:00 09/17/20 08:59 08/25/20 20:29 Hydralazine HCl (Apresoline) 25 mg Q6H PRN NG SBP above 160 08/11/20 22:30 11/05/20 00:29 08/12/20 15:09 Lansoprazole (Prevacid) 30 mg DAILY NG 08/30/20 09:00 09/29/20 08:59 09/05/20 08:29 Magnesium Hydroxide (Mom) 30 ml DAILYPRN PRN GT Constipation 08/12/20 09:00 09/11/20 08:59 Metoclopramide HCl (Reglan) 5 mg Q8H PRN IVP Nausea & Vomiting 08/15/20 13:00 09/14/20 12:59 Metoprolol Tartrate (Lopressor) 25 mg Q12HR NG 08/13/20 09:00 11/11/20 08:59 09/05/20 08:28 Piperacillin Sod/ Tazobactam Sod 3.375 gm/Sodium Chloride 110 ml @ 27.5 mls/hr EVERY 8 HOURS IVPB 09/02/20 14:00 09/07/20 13:59 09/05/20 14:24 Assessment/Plan Assessment/Plan ASSESSMENT: chronic encephalopathy, dementia, diffuse infiltrates, elevated BNP hypertension, recurrent falls, and urinary tract infection, hypoxemia, probable aspiration pneumonia. acute respiratory failure hypoxemic s/p trach; worsening CO2 retention PLAN care noted high fio2 monitor PIP- significantly elevated hyperventilate as able poor lung function respiratory care as is- monitor acid base vent support as is full support for now monitor imaging for change suction off load trach care GT Full code for now per family nutrition DVT prophylaxis skin care position change prognosis very poor worsening overall impression, plan, and exam edited and reviewed in detail care discussed with Eriberto Gilliland MD Sep 05, 2020 18:50
--- NOTE | 2020-09-05 19:20 | NUR ---
NURSE NOTES: Received report from BLANE Reis. Patient asleep in bed, afebrile, obtunded, responds to deep tactile stimulation and no respiratory distress noted.SR on 5 teletypesetter monitor. trache to vent shiley 8, AC 28, TV 550, FiO2 100% and PEEP 10 saturating at 99%.on glcuerna at 50cc/hr goal infusing well, no residual and sediment noted. With Right FA 20g IV line intact, patent and asymptomatic. with FC to urine bag draining ana lilia yellow urine Needs were attended. Bed rails are upand wheels are locked. Continue to monitor the patient.
--- NOTE | 2020-09-05 19:29 | NUR ---
NURSE HAND-OFF REPORT: Important Events on Shift: Patient Status: Guarded Diet: Glucerna 1.5@50ML/HR Pending Orders: Sputum culture Pending Results/Labs: Pending MD notification: Latest Vital Signs: Temperature 98.4 , Pulse 65 , B/P 147 /64 , Respiratory Rate 28 , O2 SAT 98 , Mechanical Ventilator, O2 Flow Rate 70.0 . Vital Sign Comment: EKG Rhythm: Sinus Rhythm Rhythm change?: N Notified?: N -Dr. Virgil KURTZ Response: Message left await call Latest José Fall Score: 75 Fall Risk: High Risk Safety Measures: Call light Within Reach, Bed Alarm Zone 1, Side Rails Side Rails x3, Bed position Low and Locked. Fall Precautions: Yellow Socks Yellow Gown Door Sign Patient Fall Education Report given to BLANE BERTRAND.
[2020-09-05 20:00] VITALS: BP 104/62
[2020-09-06] VITALS: BP 135/73
--- NOTE | 2020-09-06 01:00 | Cardiology Progress Note ---
Subjective DATE OF SERVICE: Sep 05, 2020 Remains on vent via trach; O2 requirements remain high (70-80%). Remains tachypneic with WBC of 17.5K BP readings stable Monitor: sinus rhythm with no episodes of bradycardia today. Na levels and renal parameters normalized ABG (09/05) 7.30/56/95 Objective Last 24 Hour Vital Signs Date Time Temp Pulse Resp B/P (MAP) Pulse Ox O2 Delivery O2 Flow Rate FiO2 09/06/20 00:00 Mechanical Ventilator 09/06/20 00:00 98.8 69 28 135/73 (93) 98 09/05/20 22:30 61 28 100 09/05/20 20:21 65 104/62 09/05/20 20:00 Mechanical Ventilator 09/05/20 20:00 98.2 65 28 104/62 (76) 98 09/05/20 20:00 70 09/05/20 19:36 71 09/05/20 18:36 65 28 100 09/05/20 16:00 86 09/05/20 16:00 Mechanical Ventilator 09/05/20 16:00 70 09/05/20 16:00 98.4 74 28 147/64 (91) 98 09/05/20 15:05 72 34 70 09/05/20 12:00 98.1 60 28 112/65 (81) 98 09/05/20 12:00 70 09/05/20 11:54 Mechanical Ventilator 09/05/20 11:53 80 09/05/20 11:00 74 45 70 09/05/20 08:28 78 131/71 09/05/20 08:00 97.9 78 32 131/71 (91) 99 09/05/20 08:00 80 09/05/20 08:00 Mechanical Ventilator 09/05/20 08:00 75 09/05/20 07:15 65 28 70 09/05/20 04:00 Mechanical Ventilator 09/05/20 04:00 98.0 68 28 116/73 (87) 100 09/05/20 04:00 70 09/05/20 03:28 57 09/05/20 03:27 60 31 70 ROS: unchanged from my evaluation of 08/02/20 HEENT: Mechanically Ventilated, Thin Trach secretions RHYTHM: NSR, PACs, Afib LUNGS: bilateral rhonchi, respiratory distress, trach site clean CARDIAC: normal S1 and S2, irregularly irregular, systolic murmur - 1/6 systolic murmurat apex, rapid rate ABDOMEN: normal bowel sounds, non tender, soft, no organomegaly, other - NGTube EXTREMITIES: normal range of motion, trace edema Laboratory Tests Test 09/05/20 03:20 09/05/20 08:08 White Blood Count 17.5 K/UL (4.8-10.8) H Red Blood Count 2.58 M/UL (4.70-6.10) L Hemoglobin 7.8 G/DL (14.2-18.0) L Hematocrit 23.1 % (42.0-52.0) L Mean Corpuscular Volume 89 FL (80-99) Mean Corpuscular Hemoglobin 30.3 PG (27.0-31.0) Mean Corpuscular Hemoglobin Concent 34.0 G/DL (32.0-36.0) Red Cell Distribution Width 13.4 % (11.6-14.8) Platelet Count 76 K/UL (150-450) L Mean Platelet Volume 12.6 FL (6.5-10.1) H Neutrophils (%) (Auto) % (45.0-75.0) Lymphocytes (%) (Auto) % (20.0-45.0) Monocytes (%) (Auto) % (1.0-10.0) Eosinophils (%) (Auto) % (0.0-3.0) Basophils (%) (Auto) % (0.0-2.0) Differential Total Cells Counted 100 Neutrophils % (Manual) 92 % (45-75) H Lymphocytes % (Manual) 5 % (20-45) L Monocytes % (Manual) 2 % (1-10) Eosinophils % (Manual) 1 % (0-3) Basophils % (Manual) 0 % (0-2) Band Neutrophils 0 % (0-8) Platelet Estimate Decreased L Platelet Morphology Normal Hypochromasia 1+ Anisocytosis 1+ Sodium Level 130 MMOL/L (136-145) L Potassium Level 4.5 MMOL/L (3.5-5.1) Chloride Level 100 MMOL/L (98-107) Carbon Dioxide Level 29 MMOL/L (21-32) Anion Gap 1 mmol/L (5-15) L Blood Urea Nitrogen 51 mg/dL (7-18) H Creatinine 1.5 MG/DL (0.55-1.30) H Estimat Glomerular Filtration Rate 44.2 mL/min (>60) Glucose Level 106 MG/DL (74-106) Calcium Level 7.4 MG/DL (8.5-10.1) L Magnesium Level 2.1 MG/DL (1.8-2.4) Total Bilirubin 0.2 MG/DL (0.2-1.0) Aspartate Amino Transf (AST/SGOT) 23 U/L (15-37) Alanine Aminotransferase (ALT/SGPT) 19 U/L (12-78) Alkaline Phosphatase 150 U/L (46-116) H Total Protein 4.4 G/DL (6.4-8.2) L Albumin 0.6 G/DL (3.4-5.0) L Globulin 3.8 g/dL Albumin/Globulin Ratio 0.2 (1.0-2.7) L Arterial Blood pH 7.303 (7.350-7.450) Arterial Blood Partial Pressure CO2 56.0 mmHg (35.0-45.0) *H Arterial Blood Partial Pressure O2 95.1 mmHg (75.0-100.0) Arterial Blood HCO3 27.1 mmol/L (22.0-26.0) H Arterial Blood Oxygen Saturation 96.8 % (95-100) Arterial Blood Base Excess 0.4 (-2-2) Emile Test Positive Assessment/Plan Assessment/Plan Status post uncomplicated trach. Paroxysmal atrial fibrillation with RVR Acute myocardial ischemia with elevated troponin Aspiration risk Sepsis Healthcare acquired PNA Complicated UTI with indwelling catheter Hyponatremia Severe protein calorie malnutrition Acute myocardial ischemia Respiratory failure with hypoxia and hypercarbia - now on mech ventilation Hypokalemia Leukocytosis improving Ac/chronic diastolic CHF Dehydration/hypernatremia resolved into hyponatremia Hypokalemia Acute renal failure Occluded left cephalic vein Trach care Antimicrobials per ID Vent support with setting sdjusted. Taper O2 as able. NGTube feedings on hold for asp'n; PEG postponed DVT prophylaxis Continue amiodarone - maintenance dose; titrate beta katya. Titrate anti-HTN regimen as needed. Sarkis Herman MD Sep 06, 2020 01:00
[2020-09-06 04:00] VITALS: BP 127/78
[2020-09-06] MEDS: Piperacillin/Tazobactam 3.375 GM in NS 110 ML IVPB SCH ×3 (05:26→21:04)
[2020-09-06 05:58] LABS: HEMOGLOBIN 8.1 G/DL (14.2-18.0); MEAN CORPUSCULAR VOLUME 91 FL (80-99); PLATELET COUNT 98 K/UL (150-450); RED BLOOD COUNT 2.87 M/UL (4.70-6.10); RED CELL DISTRIBUTION WIDTH 14.2 % (11.6-14.8); WHITE BLOOD COUNT 15.8 K/UL (4.8-10.8)
--- NOTE | 2020-09-06 06:15 | NUR ---
NURSE NOTES: Pt asleep in bed. no respiratory distress noted. on Fi O2 80% saturating at 99-100%. Continue plan of care
--- NOTE | 2020-09-06 06:31 | Pulmonology Progress Note ---
Subjective ROS Limited/Unobtainable: Yes Constitutional: Denies: fever Allergies: Coded Allergies: VANCOMYCIN (Verified Allergy, Severe, hive, 08/27/20) All Systems: reviewed and negative except above Subjective care noted/ d/w nursing in detail on vent/ remains hypoxemic noted acidosis poor LOC noted changes reviewed d/w nursing at bedside Objective Last 24 Hour Vital Signs Date Time Temp Pulse Resp B/P (MAP) Pulse Ox O2 Delivery O2 Flow Rate FiO2 09/06/20 04:00 70 09/06/20 04:00 Mechanical Ventilator 09/06/20 04:00 98.1 74 28 127/78 (94) 99 09/06/20 03:23 75 09/06/20 02:30 71 28 90 09/06/20 00:23 80 09/06/20 00:00 Mechanical Ventilator 09/06/20 00:00 98.8 69 28 135/73 (93) 98 09/05/20 22:30 61 28 100 09/05/20 20:21 65 104/62 09/05/20 20:00 Mechanical Ventilator 09/05/20 20:00 98.2 65 28 104/62 (76) 98 09/05/20 20:00 70 09/05/20 19:36 71 09/05/20 18:36 65 28 100 09/05/20 16:00 86 09/05/20 16:00 Mechanical Ventilator 09/05/20 16:00 70 09/05/20 16:00 98.4 74 28 147/64 (91) 98 09/05/20 15:05 72 34 70 09/05/20 12:00 98.1 60 28 112/65 (81) 98 09/05/20 12:00 70 09/05/20 11:54 Mechanical Ventilator 09/05/20 11:53 80 09/05/20 11:00 74 45 70 09/05/20 08:28 78 131/71 09/05/20 08:00 97.9 78 32 131/71 (91) 99 09/05/20 08:00 80 09/05/20 08:00 Mechanical Ventilator 09/05/20 08:00 75 09/05/20 07:15 65 28 70 Intake and Output 09/05/20 09/06/20 19:00 07:00 Intake Total 800 ml 610.0 ml Output Total 350 ml Balance 450 ml 610.0 ml Free Water 200 ml 50 ml IV Total 110.0 ml Tube Feeding 600 ml 450 ml Output Urine Total 350 ml Objective WDWN NAD reduced breath sounds bilaterally with scattered rhonchi worse [id number] without MRG NABS nontender no distention; feeding tub no CCE nonfocal trach in place poorly responsive obtunded Microbiology Date/Time Source Procedure Growth Status 09/05/20 14:00 Sputum Gram Stain - Final Resulted 09/05/20 14:00 Sputum Sputum Culture Pending Resulted Laboratory Tests 09/05/20 08:08: Arterial Blood pH 7.303L, Arterial Blood Partial Pressure CO2 56.0*H, Arterial Blood Partial Pressure O2 95.1, Arterial Blood HCO3 27.1H, Arterial Blood Oxygen Saturation 96.8, Arterial Blood Base Excess 0.4, Emile Test Positive 09/06/20 04:09: White Blood Count 15.8H, Red Blood Count 2.87L, Hemoglobin 8.1L, Hematocrit 26.0L, Mean Corpuscular Volume 91, Mean Corpuscular Hemoglobin 28.2, Mean Corpuscular Hemoglobin Concent 31.2L, Red Cell Distribution Width 14.2, Platelet Count 98L, Mean Platelet Volume 12.3H, Neutrophils (%) (Auto) , Lymphocytes (%) (Auto) , Monocytes (%) (Auto) , Eosinophils (%) (Auto) , Basophils (%) (Auto) , Neutrophils % (Manual) [Pending], Lymphocytes % (Manual) [Pending], Platelet Estimate [Pending], Platelet Morphology [Pending], Sodium Level [Pending], Potassium Level [Pending], Chloride Level [Pending], Carbon Dioxide Level [Pending], Blood Urea Nitrogen [Pending], Creatinine [Pending], Estimat Glomerular Filtration Rate [Pending], Glucose Level [Pending], Calcium Level [Pending], Total Bilirubin [Pending], Aspartate Amino Transf (AST/SGOT) [Pending], Alanine Aminotransferase (ALT/SGPT) [Pending], Alkaline Phosphatase [ Pending], Total Protein [Pending], Albumin [Pending], Globulin [Pending] Current Medications Medications (Trade) Dose Ordered Sig/Javon Route PRN Reason Start Time Stop Time Status Last Admin Dose Admin Amiodarone HCl (Cordarone) 200 mg DAILY NG 09/04/20 09:00 11/15/20 08:59 09/05/20 08:28 Fluconazole (Diflucan) 100 mg DAILY NG 09/03/20 09:00 09/10/20 08:59 09/05/20 08:28 Heparin Sodium (Porcine) (Heparin 5000 units/ml) 5,000 units EVERY 12 HOURS SUBQ 08/03/20 09:00 09/17/20 08:59 08/25/20 20:29 Hydralazine HCl (Apresoline) 25 mg Q6H PRN NG SBP above 160 08/11/20 22:30 11/05/20 00:29 08/12/20 15:09 Lansoprazole (Prevacid) 30 mg DAILY NG 08/30/20 09:00 09/29/20 08:59 09/05/20 08:29 Magnesium Hydroxide (Mom) 30 ml DAILYPRN PRN GT Constipation 08/12/20 09:00 09/11/20 08:59 Metoclopramide HCl (Reglan) 5 mg Q8H PRN IVP Nausea & Vomiting 08/15/20 13:00 09/14/20 12:59 Metoprolol Tartrate (Lopressor) 25 mg Q12HR NG 08/13/20 09:00 11/11/20 08:59 09/05/20 08:28 Piperacillin Sod/ Tazobactam Sod 3.375 gm/Sodium Chloride 110 ml @ 27.5 mls/hr EVERY 8 HOURS IVPB 09/02/20 14:00 09/07/20 13:59 09/06/20 05:26 Assessment/Plan Assessment/Plan ASSESSMENT: chronic encephalopathy, dementia, diffuse infiltrates, elevated BNP hypertension, recurrent falls, and urinary tract infection, hypoxemia, probable aspiration pneumonia. acute respiratory failure hypoxemic s/p trach; worsening CO2 retention PLAN care noted high fio2 taper monitor PIP- at 66 hyperventilate as able on AC28 poor lung function respiratory care as is- monitor acid base vent support as is full support for now monitor imaging for change suction off load trach care GT Full code nutrition DVT prophylaxis skin care position change prognosis very poor impression, plan, and exam edited and reviewed in detail care discussed with Eriberto Gilliland MD Sep 06, 2020 06:31
[2020-09-06 06:47] LABS: ALBUMIN 0.7 G/DL (3.4-5.0); ALBUMIN/GLOBULIN RATIO 0.2 (1.0-2.7); BILIRUBIN,TOTAL 0.2 MG/DL (0.2-1.0); CALCIUM 7.4 MG/DL (8.5-10.1); CREATININE 1.8 MG/DL (0.55-1.30); POTASSIUM 4.5 MMOL/L (3.5-5.1)
--- NOTE | 2020-09-06 07:20 | NUR ---
NURSE HAND-OFF REPORT: Important Events on Shift: titrate fiO2 down from 100% Patient Status:stable Diet: glcuerna at 50cc/hr Pending Orders: n Pending Results/Labs:n Pending MD notification:n Latest Vital Signs: Temperature 98.1 , Pulse 74 , B/P 127 /78 , Respiratory Rate 28 , O2 SAT 99 , Mechanical Ventilator, O2 Flow Rate 70.0 . Vital Sign Comment: n EKG Rhythm: Sinus Rhythm Rhythm change?: N MD Notified?: N -Dr. Virgil KURTZ Response: Message left await call Latest José Fall Score: 75 Fall Risk: High Risk Safety Measures: Call light Within Reach, Bed Alarm Zone 1, Side Rails Side Rails x3, Bed position Low and Locked. Fall Precautions: Yellow Socks Yellow Gown Door Sign Patient Fall Education Report given to BLANE hernandez.
--- NOTE | 2020-09-06 07:26 | NUR ---
NURSE NOTES: Received report from JERZY RN. Patient received resting in bed, eyes are open but patient does not trak or follow commands. Patient is non-verbal due to trach to vent with following settings: Shiley 8, AC 28, TV 550 FI02 80% and PEEP 10 with 02 saturation of 100% and tolerating well. Monitor shows 72 pulse. Patient is placed on fall and aspiration precautions, with call light at bedside and bed in the low and locked position with bed alarm on. Pt's HOB is elevated to 30% patient has feeding running Glucerna 1.5 @ 50ML/HR in right NG tube placed at 65CM taped to nose which is flushed and patent. Overton is patent and draining to gravity, scrotal edema noted. IV sites are clean and dry with IV ATB running at this time. Will continue to follow plan of care
[2020-09-06 07:46] VITALS: BP 112/67
--- NOTE | 2020-09-06 08:23 | NUR ---
NURSE NOTES: Sent Dr. Valencia results from [facility] and was contacted to notify RT to taper O2 to SATS >92%. Notified RT and will update Dr Valencia as needed.
[2020-09-06] MEDS: Fluconazole 100mg tab NG SCH (08:37)
[2020-09-06] MEDS: Amiodarone 200mg tab NG SCH (08:38)
[2020-09-06] MEDS: Heparin 5000 units/ml inj SUBQ SCH ×2 (08:39→20:59)
--- NOTE | 2020-09-06 08:45 | NUR ---
NURSE NOTES: Oral Care provided. Oral Suction Provided and White Sputum Removed. No SOB.
--- NOTE | 2020-09-06 10:16 | NUR ---
NURSE NOTES: Granddaughter called and asked for updates regarding her grandfather let her know that he was the same but tolerating the new settings for the vent and was still on 100% but was going to try and titrate down as much as her grandfather would tolerate. RT stated he would try again later on and I would update her if anything changed.
[2020-09-06 12:00] VITALS: BP 128/70
--- NOTE | 2020-09-06 12:07 | Surgery Progress Note ---
Surgery Progress Note Subjective Procedure Performed trach Additional Comments hypoxic ill appearing prognosis guarded on support Objective Last 24 Hour Vital Signs Date Time Temp Pulse Resp B/P (MAP) Pulse Ox O2 Delivery O2 Flow Rate FiO2 09/06/20 08:38 75 132/77 09/06/20 08:00 84 09/06/20 07:46 70 09/06/20 07:46 98.6 68 28 112/67 (82) 98 09/06/20 07:46 Mechanical Ventilator 09/06/20 04:00 70 09/06/20 04:00 Mechanical Ventilator 09/06/20 04:00 98.1 74 28 127/78 (94) 99 09/06/20 03:23 75 09/06/20 02:30 71 28 90 09/06/20 00:23 80 09/06/20 00:00 Mechanical Ventilator 09/06/20 00:00 98.8 69 28 135/73 (93) 98 09/05/20 22:30 61 28 100 09/05/20 20:21 65 104/62 09/05/20 20:00 Mechanical Ventilator 09/05/20 20:00 98.2 65 28 104/62 (76) 98 09/05/20 20:00 70 09/05/20 19:36 71 09/05/20 18:36 65 28 100 09/05/20 16:00 86 09/05/20 16:00 Mechanical Ventilator 09/05/20 16:00 70 09/05/20 16:00 98.4 74 28 147/64 (91) 98 09/05/20 15:05 72 34 70 I&O Intake and Output 09/05/20 09/06/20 19:00 07:00 Intake Total 800 ml 837.5 ml Output Total 350 ml 350 ml Balance 450 ml 487.5 ml Free Water 200 ml 100 ml IV Total 137.5 ml Tube Feeding 600 ml 600 ml Output Urine Total 350 ml 350 ml Dressing: saturated Cardiovascular: RSR Respiratory: decreased breath sounds Abdomen: non-tender, present bowel sounds Extremities: no tenderness, no cyanosis Laboratory Tests Test 09/06/20 04:09 09/06/20 07:57 White Blood Count 15.8 K/UL (4.8-10.8) H Red Blood Count 2.87 M/UL (4.70-6.10) L Hemoglobin 8.1 G/DL (14.2-18.0) L Hematocrit 26.0 % (42.0-52.0) L Mean Corpuscular Volume 91 FL (80-99) Mean Corpuscular Hemoglobin 28.2 PG (27.0-31.0) Mean Corpuscular Hemoglobin Concent 31.2 G/DL (32.0-36.0) L Red Cell Distribution Width 14.2 % (11.6-14.8) Platelet Count 98 K/UL (150-450) L Mean Platelet Volume 12.3 FL (6.5-10.1) H Neutrophils (%) (Auto) % (45.0-75.0) Lymphocytes (%) (Auto) % (20.0-45.0) Monocytes (%) (Auto) % (1.0-10.0) Eosinophils (%) (Auto) % (0.0-3.0) Basophils (%) (Auto) % (0.0-2.0) Differential Total Cells Counted 100 Neutrophils % (Manual) 91 % (45-75) H Lymphocytes % (Manual) 2 % (20-45) L Monocytes % (Manual) 6 % (1-10) Eosinophils % (Manual) 1 % (0-3) Basophils % (Manual) 0 % (0-2) Band Neutrophils 0 % (0-8) Platelet Estimate Decreased L Platelet Morphology Normal Hypochromasia 1+ Anisocytosis 1+ Sodium Level 134 MMOL/L (136-145) L Potassium Level 4.5 MMOL/L (3.5-5.1) Chloride Level 101 MMOL/L (98-107) Carbon Dioxide Level 29 MMOL/L (21-32) Anion Gap 4 mmol/L (5-15) L Blood Urea Nitrogen 64 mg/dL (7-18) H Creatinine 1.8 MG/DL (0.55-1.30) H Estimat Glomerular Filtration Rate 35.8 mL/min (>60) Glucose Level 101 MG/DL (74-106) Calcium Level 7.4 MG/DL (8.5-10.1) L Total Bilirubin 0.2 MG/DL (0.2-1.0) Aspartate Amino Transf (AST/SGOT) 26 U/L (15-37) Alanine Aminotransferase (ALT/SGPT) 26 U/L (12-78) Alkaline Phosphatase 154 U/L (46-116) H Total Protein 4.6 G/DL (6.4-8.2) L Albumin 0.7 G/DL (3.4-5.0) L Globulin 3.9 g/dL Albumin/Globulin Ratio 0.2 (1.0-2.7) L Arterial Blood pH 7.314 (7.350-7.450) Arterial Blood Partial Pressure CO2 50.7 mmHg (35.0-45.0) H Arterial Blood Partial Pressure O2 108.8 mmHg (75.0-100.0) H Arterial Blood HCO3 25.2 mmol/L (22.0-26.0) Arterial Blood Oxygen Saturation 97.3 % (95-100) Arterial Blood Base Excess -1.2 (-2-2) Emile Test Positive Plan Problems: (1) Pneumonia (2) Hypoxia (3) Sepsis Assessment & Plan: respiratory insufficiency prolonged ventilatory support failed weaning trials weaning vent as much as possible anticipate prolong vent support trach indicated and recommended will obtain consent plan for trach as able to wean thank you cont weaning will follow with recs s/p trach wean sedation wean vent no active bleeding noted h/h noted trend labs (4) UTI (urinary tract infection) (5) Pneumonia (6) AMS (altered mental status) Isaias Loaiza Sep 06, 2020 12:07
--- NOTE | 2020-09-06 12:44 | Infectious Diseases Prog Note ---
Assessment/Plan Assessment/Plan A: 1. Bilateral pneumonia treated 2. COVID-19 test is negative. 3. Urinary tract infection. 4. Hypertension. 5. Dementia. 6. Respiratory failure intubated 7. Parkinson's disease 8. Fungal UTI PLAN: Continue Zosyn Continue Fluconazole X 3 days Will f/u sputum culture Subjective ROS Limited/Unobtainable: Yes Constitutional: Denies: fever Allergies: Coded Allergies: VANCOMYCIN (Verified Allergy, Severe, hive, 08/27/20) Objective Last 24 Hour Vital Signs Date Time Temp Pulse Resp B/P (MAP) Pulse Ox O2 Delivery O2 Flow Rate FiO2 09/06/20 12:00 98.8 77 28 128/70 (89) 99 09/06/20 12:00 70 09/06/20 12:00 Mechanical Ventilator 09/06/20 08:38 75 132/77 09/06/20 08:00 84 09/06/20 07:46 70 09/06/20 07:46 98.6 68 28 112/67 (82) 98 09/06/20 07:46 Mechanical Ventilator 09/06/20 04:00 70 09/06/20 04:00 Mechanical Ventilator 09/06/20 04:00 98.1 74 28 127/78 (94) 99 09/06/20 03:23 75 09/06/20 02:30 71 28 90 09/06/20 00:23 80 09/06/20 00:00 Mechanical Ventilator 09/06/20 00:00 98.8 69 28 135/73 (93) 98 09/05/20 22:30 61 28 100 09/05/20 20:21 65 104/62 09/05/20 20:00 Mechanical Ventilator 09/05/20 20:00 98.2 65 28 104/62 (76) 98 09/05/20 20:00 70 09/05/20 19:36 71 09/05/20 18:36 65 28 100 09/05/20 16:00 86 09/05/20 16:00 Mechanical Ventilator 09/05/20 16:00 70 09/05/20 16:00 98.4 74 28 147/64 (91) 98 09/05/20 15:05 72 34 70 Height (Feet): 5 Height (Inches): 4.00 Weight (Pounds): 154 HEENT: mucous membranes moist, status post trach Respiratory/Chest: rhonchi - bilaterally, other - on ventilator Cardiovascular: normal rate Abdomen: soft, non tender, other - NG tube Extremities: other - general edema Neurologic/Psychiatric: unresponsiveness, aphasia Microbiology Date/Time Source Procedure Growth Status 09/05/20 14:00 Sputum Gram Stain - Final Resulted 09/05/20 14:00 Sputum Sputum Culture Pending Resulted Laboratory Tests Test 09/06/20 04:09 09/06/20 07:57 White Blood Count 15.8 K/UL (4.8-10.8) H Red Blood Count 2.87 M/UL (4.70-6.10) L Hemoglobin 8.1 G/DL (14.2-18.0) L Hematocrit 26.0 % (42.0-52.0) L Mean Corpuscular Volume 91 FL (80-99) Mean Corpuscular Hemoglobin 28.2 PG (27.0-31.0) Mean Corpuscular Hemoglobin Concent 31.2 G/DL (32.0-36.0) L Red Cell Distribution Width 14.2 % (11.6-14.8) Platelet Count 98 K/UL (150-450) L Mean Platelet Volume 12.3 FL (6.5-10.1) H Neutrophils (%) (Auto) % (45.0-75.0) Lymphocytes (%) (Auto) % (20.0-45.0) Monocytes (%) (Auto) % (1.0-10.0) Eosinophils (%) (Auto) % (0.0-3.0) Basophils (%) (Auto) % (0.0-2.0) Differential Total Cells Counted 100 Neutrophils % (Manual) 91 % (45-75) H Lymphocytes % (Manual) 2 % (20-45) L Monocytes % (Manual) 6 % (1-10) Eosinophils % (Manual) 1 % (0-3) Basophils % (Manual) 0 % (0-2) Band Neutrophils 0 % (0-8) Platelet Estimate Decreased L Platelet Morphology Normal Hypochromasia 1+ Anisocytosis 1+ Sodium Level 134 MMOL/L (136-145) L Potassium Level 4.5 MMOL/L (3.5-5.1) Chloride Level 101 MMOL/L (98-107) Carbon Dioxide Level 29 MMOL/L (21-32) Anion Gap 4 mmol/L (5-15) L Blood Urea Nitrogen 64 mg/dL (7-18) H Creatinine 1.8 MG/DL (0.55-1.30) H Estimat Glomerular Filtration Rate 35.8 mL/min (>60) Glucose Level 101 MG/DL (74-106) Calcium Level 7.4 MG/DL (8.5-10.1) L Total Bilirubin 0.2 MG/DL (0.2-1.0) Aspartate Amino Transf (AST/SGOT) 26 U/L (15-37) Alanine Aminotransferase (ALT/SGPT) 26 U/L (12-78) Alkaline Phosphatase 154 U/L (46-116) H Total Protein 4.6 G/DL (6.4-8.2) L Albumin 0.7 G/DL (3.4-5.0) L Globulin 3.9 g/dL Albumin/Globulin Ratio 0.2 (1.0-2.7) L Arterial Blood pH 7.314 (7.350-7.450) Arterial Blood Partial Pressure CO2 50.7 mmHg (35.0-45.0) H Arterial Blood Partial Pressure O2 108.8 mmHg (75.0-100.0) H Arterial Blood HCO3 25.2 mmol/L (22.0-26.0) Arterial Blood Oxygen Saturation 97.3 % (95-100) Arterial Blood Base Excess -1.2 (-2-2) Emile Test Positive Current Medications Medications (Trade) Dose Ordered Sig/Javon Route PRN Reason Start Time Stop Time Status Last Admin Dose Admin Amiodarone HCl (Cordarone) 200 mg DAILY NG 09/04/20 09:00 11/15/20 08:59 09/06/20 08:38 Fluconazole (Diflucan) 100 mg DAILY NG 09/03/20 09:00 09/10/20 08:59 09/06/20 08:37 Heparin Sodium (Porcine) (Heparin 5000 units/ml) 5,000 units EVERY 12 HOURS SUBQ 08/03/20 09:00 09/17/20 08:59 08/25/20 20:29 Hydralazine HCl (Apresoline) 25 mg Q6H PRN NG SBP above 160 08/11/20 22:30 11/05/20 00:29 08/12/20 15:09 Lansoprazole (Prevacid) 30 mg DAILY NG 08/30/20 09:00 09/29/20 08:59 09/06/20 08:38 Magnesium Hydroxide (Mom) 30 ml DAILYPRN PRN GT Constipation 08/12/20 09:00 09/11/20 08:59 Metoclopramide HCl (Reglan) 5 mg Q8H PRN IVP Nausea & Vomiting 08/15/20 13:00 09/14/20 12:59 Metoprolol Tartrate (Lopressor) 25 mg Q12HR NG 08/13/20 09:00 11/11/20 08:59 09/06/20 08:38 Piperacillin Sod/ Tazobactam Sod 3.375 gm/Sodium Chloride 110 ml @ 27.5 mls/hr EVERY 8 HOURS IVPB 09/02/20 14:00 09/07/20 13:59 09/06/20 05:26 Baldev Luo MD Sep 06, 2020 12:44
--- NOTE | 2020-09-06 12:52 | General Progress Note ---
Subjective ROS Limited/Unobtainable: Yes Constitutional: Reports: malaise, weakness HEENT: Reports: no symptoms Cardiovascular: Reports: edema Respiratory: Reports: cough, shortness of breath, sputum Gastrointestinal/Abdominal: Reports: difficulty swallowing Genitourinary: Reports: no symptoms Neurologic/Psychiatric: Reports: pre-existing deficit Endocrine: Reports: no symptoms Hematologic/Lymphatic: Reports: anemia Allergies: Coded Allergies: VANCOMYCIN (Verified Allergy, Severe, hive, 08/27/20) All Systems: reviewed and negative except above Subjective no change. vent dependent. increase fio2 requirements. no fevers or chills. labs reviewed. cxr worse. renal fxn trending up. awake. Objective Last 24 Hour Vital Signs Date Time Temp Pulse Resp B/P (MAP) Pulse Ox O2 Delivery O2 Flow Rate FiO2 09/06/20 12:00 98.8 77 28 128/70 (89) 99 09/06/20 12:00 70 09/06/20 12:00 Mechanical Ventilator 09/06/20 08:38 75 132/77 09/06/20 08:00 84 09/06/20 07:46 70 09/06/20 07:46 98.6 68 28 112/67 (82) 98 09/06/20 07:46 Mechanical Ventilator 09/06/20 04:00 70 09/06/20 04:00 Mechanical Ventilator 09/06/20 04:00 98.1 74 28 127/78 (94) 99 09/06/20 03:23 75 09/06/20 02:30 71 28 90 09/06/20 00:23 80 09/06/20 00:00 Mechanical Ventilator 09/06/20 00:00 98.8 69 28 135/73 (93) 98 09/05/20 22:30 61 28 100 09/05/20 20:21 65 104/62 09/05/20 20:00 Mechanical Ventilator 09/05/20 20:00 98.2 65 28 104/62 (76) 98 09/05/20 20:00 70 09/05/20 19:36 71 09/05/20 18:36 65 28 100 09/05/20 16:00 86 09/05/20 16:00 Mechanical Ventilator 09/05/20 16:00 70 09/05/20 16:00 98.4 74 28 147/64 (91) 98 09/05/20 15:05 72 34 70 Intake and Output 09/05/20 09/06/20 19:00 07:00 Intake Total 800 ml 837.5 ml Output Total 350 ml 350 ml Balance 450 ml 487.5 ml Free Water 200 ml 100 ml IV Total 137.5 ml Tube Feeding 600 ml 600 ml Output Urine Total 350 ml 350 ml Laboratory Tests 09/06/20 04:09: White Blood Count 15.8H, Red Blood Count 2.87L, Hemoglobin 8.1L, Hematocrit 26.0L, Mean Corpuscular Volume 91, Mean Corpuscular Hemoglobin 28.2, Mean Corpuscular Hemoglobin Concent 31.2L, Red Cell Distribution Width 14.2, Platelet Count 98L, Mean Platelet Volume 12.3H, Neutrophils (%) (Auto) , Lymphocytes (%) (Auto) , Monocytes (%) (Auto) , Eosinophils (%) (Auto) , Basophils (%) (Auto) , Differential Total Cells Counted 100, Neutrophils % (Manual) 91H, Lymphocytes % (Manual) 2L, Monocytes % (Manual) 6, Eosinophils % (Manual) 1, Basophils % (Manual) 0, Band Neutrophils 0, Platelet Estimate DecreasedL, Platelet Morphology Normal, Hypochromasia 1+, Anisocytosis 1+, Sodium Level 134L, Potassium Level 4.5, Chloride Level 101, Carbon Dioxide Level 29, Anion Gap 4L, Blood Urea Nitrogen 64H, Creatinine 1.8H, Estimat Glomerular Filtration Rate 35.8, Glucose Level 101, Calcium Level 7.4L, Total Bilirubin 0.2, Aspartate Amino Transf (AST/SGOT) 26, Alanine Aminotransferase (ALT/SGPT) 26, Alkaline Phosphatase 154H, Total Protein 4.6L, Albumin 0.7L, Globulin 3.9, Albumin/Globulin Ratio 0.2L 09/06/20 07:57: Arterial Blood pH 7.314L, Arterial Blood Partial Pressure CO2 50.7H, Arterial Blood Partial Pressure O2 108.8H, Arterial Blood HCO3 25.2, Arterial Blood Oxygen Saturation 97.3, Arterial Blood Base Excess -1.2, Emile Test Positive Height (Feet): 5 Height (Inches): 4.00 Weight (Pounds): 154 Objective General Appearance: WD/WN, confused, thin. on the vent EENT: normal ENT inspection Neck: non-tender, normal alignment, supple. trach midline Cardiovascular: normal rate, regular rhythm Respiratory/Chest: chest wall non-tender, lungs clear, normal breath sounds, no respiratory distress, no accessory muscle use Abdomen: normal bowel sounds, non tender, soft, no organomegaly Edema: no edema noted Arm (L), no edema noted Arm (R) Assessment/Plan Problem List: (1) Pneumonia ICD Codes: J18.9 - Pneumonia, unspecified organism SNOMED: 667110352 (2) Hypoxia ICD Codes: R09.02 - Hypoxemia SNOMED: 568450044 (3) AMS (altered mental status) ICD Codes: R41.82 - Altered mental status, unspecified SNOMED: 868360465 (4) UTI (urinary tract infection) ICD Codes: N39.0 - Urinary tract infection, site not specified SNOMED: 58468433 (5) Sepsis ICD Codes: A41.9 - Sepsis, unspecified organism SNOMED: 94085223 Status: stable, not improved Assessment/Plan: vent support trach care gt when stable abx per ID suctioning gentle hydration monitor labs/lytes replace as needes dvt/stress ulcer prophylaxis turn q2 ativan for agitation melany gates dtr Chavez Valdovinos MD Sep 06, 2020 12:52
--- NOTE | 2020-09-06 15:45 | General Progress Note ---
Subjective Allergies: Coded Allergies: VANCOMYCIN (Verified Allergy, Severe, hive, 08/27/20) Subjective above noted Non responsive d/w RN no events overnight Objective Last 24 Hour Vital Signs Date Time Temp Pulse Resp B/P (MAP) Pulse Ox O2 Delivery O2 Flow Rate FiO2 09/06/20 12:00 98.8 77 28 128/70 (89) 99 09/06/20 12:00 70 09/06/20 12:00 Mechanical Ventilator 09/06/20 12:00 77 09/06/20 08:38 75 132/77 09/06/20 08:00 84 09/06/20 07:46 70 09/06/20 07:46 98.6 68 28 112/67 (82) 98 09/06/20 07:46 Mechanical Ventilator 09/06/20 04:00 70 09/06/20 04:00 Mechanical Ventilator 09/06/20 04:00 98.1 74 28 127/78 (94) 99 09/06/20 03:23 75 09/06/20 02:30 71 28 90 09/06/20 00:23 80 09/06/20 00:00 Mechanical Ventilator 09/06/20 00:00 98.8 69 28 135/73 (93) 98 09/05/20 22:30 61 28 100 09/05/20 20:21 65 104/62 09/05/20 20:00 Mechanical Ventilator 09/05/20 20:00 98.2 65 28 104/62 (76) 98 09/05/20 20:00 70 09/05/20 19:36 71 09/05/20 18:36 65 28 100 09/05/20 16:00 86 09/05/20 16:00 Mechanical Ventilator 09/05/20 16:00 70 09/05/20 16:00 98.4 74 28 147/64 (91) 98 Intake and Output 09/05/20 09/06/20 19:00 07:00 Intake Total 800 ml 837.5 ml Output Total 350 ml 350 ml Balance 450 ml 487.5 ml Free Water 200 ml 100 ml IV Total 137.5 ml Tube Feeding 600 ml 600 ml Output Urine Total 350 ml 350 ml Laboratory Tests 09/06/20 04:09: White Blood Count 15.8H, Red Blood Count 2.87L, Hemoglobin 8.1L, Hematocrit 26.0L, Mean Corpuscular Volume 91, Mean Corpuscular Hemoglobin 28.2, Mean Corpuscular Hemoglobin Concent 31.2L, Red Cell Distribution Width 14.2, Platelet Count 98L, Mean Platelet Volume 12.3H, Neutrophils (%) (Auto) , Lymphocytes (%) (Auto) , Monocytes (%) (Auto) , Eosinophils (%) (Auto) , Basophils (%) (Auto) , Differential Total Cells Counted 100, Neutrophils % (Manual) 91H, Lymphocytes % (Manual) 2L, Monocytes % (Manual) 6, Eosinophils % (Manual) 1, Basophils % (Manual) 0, Band Neutrophils 0, Platelet Estimate DecreasedL, Platelet Morphology Normal, Hypochromasia 1+, Anisocytosis 1+, Sodium Level 134L, Potassium Level 4.5, Chloride Level 101, Carbon Dioxide Level 29, Anion Gap 4L, Blood Urea Nitrogen 64H, Creatinine 1.8H, Estimat Glomerular Filtration Rate 35.8, Glucose Level 101, Calcium Level 7.4L, Total Bilirubin 0.2, Aspartate Amino Transf (AST/SGOT) 26, Alanine Aminotransferase (ALT/SGPT) 26, Alkaline Phosphatase 154H, Total Protein 4.6L, Albumin 0.7L, Globulin 3.9, Albumin/Globulin Ratio 0.2L 09/06/20 07:57: Arterial Blood pH 7.314L, Arterial Blood Partial Pressure CO2 50.7H, Arterial Blood Partial Pressure O2 108.8H, Arterial Blood HCO3 25.2, Arterial Blood Oxygen Saturation 97.3, Arterial Blood Base Excess -1.2, Emile Test Positive Height (Feet): 5 Height (Inches): 4.00 Weight (Pounds): 154 Objective Elderly man unresponsive NCAT supple scattered ronchi RR abd soft trace edema Assessment/Plan Status: stable, not improved Assessment/Plan: Assessment - Leukocytosis - respiratory failure - s/p Trach - Parox a fib - acute myocardial ischemia - PNA/sepsis - dysphagia - elevated glucose - poor prognosis Recommendations - glucerna TF - Increase rate to meet demands - PEG once stablized - ID follow up - Pulmonary toilet Arely Parks MD Sep 06, 2020 15:45
[2020-09-06 16:00] VITALS: BP 112/69
--- NOTE | 2020-09-06 19:00 | NUR ---
NURSE NOTES: Received report from BLANE Morgan. pt is seen in semi-carlos's position, connected to vent With settings of AC 28 TV 550 Fio2-80% Peep of 10. No signs of respiratory distress. But noted secretions near trach site, informed RT. Oral care done, pt was biting when suctioned. Pt is obtunded, flat affect,eyes doesn't track. No pain noted. With NGT on right nares, unable to do peg tube yet per Dr notes pt was still unstable. On [place] patent and draining pale yellow urine. NGT flushed no residual noted. SR in environmental monitoring technician. Bed in lowest position, call light within reach. Continue to plan of care.
--- NOTE | 2020-09-06 19:40 | NUR ---
NURSE HAND-OFF REPORT: Important Events on Shift: Tach havent changed and NS started @ 100. Patient Status: Guarded Diet: Glucerna 1.2 Pending Orders: Pending Results/Labs: Pending MD notification: Latest Vital Signs: Temperature 98.5 , Pulse 81 , B/P 112 /69 , Respiratory Rate 32 , O2 SAT 99 , Mechanical Ventilator, O2 Flow Rate 70.0 . Vital Sign Comment: EKG Rhythm: Sinus Rhythm Rhythm change?: N Notified?: N -Dr. Virgil KURTZ Response: Message left await call Latest José Fall Score: 75 Fall Risk: High Risk Safety Measures: Call light Within Reach, Bed Alarm Zone 1, Side Rails Side Rails x3, Bed position Low and Locked. Fall Precautions: Yellow Socks Yellow Gown Door Sign Patient Fall Education Report given to
[2020-09-06 20:00] VITALS: BP 108/65
--- NOTE | 2020-09-06 22:04 | NUR ---
NURSE NOTES: Spoke to next of kin, relative is complaining of telephone not working in the room. Engineering notified through work order.
--- NOTE | 2020-09-06 22:48 | Cardiology Progress Note ---
Subjective DATE OF SERVICE: Sep 06, 2020 Remains on vent via trach; O2 requirements remain high (70-80%). WBC decreasing BP readings stable Monitor: sinus rhythm with no episodes of bradycardia today. Na levels and renal parameters normalized ABG (09/06) 7.31/51/108 Objective Last 24 Hour Vital Signs Date Time Temp Pulse Resp B/P (MAP) Pulse Ox O2 Delivery O2 Flow Rate FiO2 09/06/20 21:04 79 117/69 09/06/20 20:00 Mechanical Ventilator 09/06/20 20:00 70 09/06/20 20:00 73 09/06/20 20:00 98.1 83 25 108/65 (79) 94 09/06/20 19:15 81 32 80 09/06/20 16:00 68 09/06/20 16:00 70 09/06/20 16:00 Mechanical Ventilator 09/06/20 16:00 98.5 80 28 112/69 (83) 99 09/06/20 14:45 80 29 80 09/06/20 12:00 98.8 77 28 128/70 (89) 99 09/06/20 12:00 70 09/06/20 12:00 Mechanical Ventilator 09/06/20 12:00 77 09/06/20 10:45 77 29 80 09/06/20 08:38 75 132/77 09/06/20 08:00 84 09/06/20 07:46 70 09/06/20 07:46 98.6 68 28 112/67 (82) 98 09/06/20 07:46 Mechanical Ventilator 09/06/20 07:15 80 30 80 09/06/20 04:00 70 09/06/20 04:00 Mechanical Ventilator 09/06/20 04:00 98.1 74 28 127/78 (94) 99 09/06/20 03:23 75 09/06/20 02:30 71 28 90 09/06/20 00:23 80 09/06/20 00:00 Mechanical Ventilator 09/06/20 00:00 98.8 69 28 135/73 (93) 98 ROS: unchanged from my evaluation of 08/02/20 HEENT: Mechanically Ventilated, Thin Trach secretions RHYTHM: NSR, PACs, Afib LUNGS: bilateral rhonchi, respiratory distress, trach site clean CARDIAC: normal S1 and S2, irregularly irregular, systolic murmur - 1/6 systolic murmurat apex, rapid rate ABDOMEN: normal bowel sounds, non tender, soft, no organomegaly, other - NGTube EXTREMITIES: normal range of motion, trace edema Laboratory Tests Test 09/06/20 04:09 09/06/20 07:57 White Blood Count 15.8 K/UL (4.8-10.8) H Red Blood Count 2.87 M/UL (4.70-6.10) L Hemoglobin 8.1 G/DL (14.2-18.0) L Hematocrit 26.0 % (42.0-52.0) L Mean Corpuscular Volume 91 FL (80-99) Mean Corpuscular Hemoglobin 28.2 PG (27.0-31.0) Mean Corpuscular Hemoglobin Concent 31.2 G/DL (32.0-36.0) L Red Cell Distribution Width 14.2 % (11.6-14.8) Platelet Count 98 K/UL (150-450) L Mean Platelet Volume 12.3 FL (6.5-10.1) H Neutrophils (%) (Auto) % (45.0-75.0) Lymphocytes (%) (Auto) % (20.0-45.0) Monocytes (%) (Auto) % (1.0-10.0) Eosinophils (%) (Auto) % (0.0-3.0) Basophils (%) (Auto) % (0.0-2.0) Differential Total Cells Counted 100 Neutrophils % (Manual) 91 % (45-75) H Lymphocytes % (Manual) 2 % (20-45) L Monocytes % (Manual) 6 % (1-10) Eosinophils % (Manual) 1 % (0-3) Basophils % (Manual) 0 % (0-2) Band Neutrophils 0 % (0-8) Platelet Estimate Decreased L Platelet Morphology Normal Hypochromasia 1+ Anisocytosis 1+ Sodium Level 134 MMOL/L (136-145) L Potassium Level 4.5 MMOL/L (3.5-5.1) Chloride Level 101 MMOL/L (98-107) Carbon Dioxide Level 29 MMOL/L (21-32) Anion Gap 4 mmol/L (5-15) L Blood Urea Nitrogen 64 mg/dL (7-18) H Creatinine 1.8 MG/DL (0.55-1.30) H Estimat Glomerular Filtration Rate 35.8 mL/min (>60) Glucose Level 101 MG/DL (74-106) Calcium Level 7.4 MG/DL (8.5-10.1) L Total Bilirubin 0.2 MG/DL (0.2-1.0) Aspartate Amino Transf (AST/SGOT) 26 U/L (15-37) Alanine Aminotransferase (ALT/SGPT) 26 U/L (12-78) Alkaline Phosphatase 154 U/L (46-116) H Total Protein 4.6 G/DL (6.4-8.2) L Albumin 0.7 G/DL (3.4-5.0) L Globulin 3.9 g/dL Albumin/Globulin Ratio 0.2 (1.0-2.7) L Arterial Blood pH 7.314 (7.350-7.450) Arterial Blood Partial Pressure CO2 50.7 mmHg (35.0-45.0) H Arterial Blood Partial Pressure O2 108.8 mmHg (75.0-100.0) H Arterial Blood HCO3 25.2 mmol/L (22.0-26.0) Arterial Blood Oxygen Saturation 97.3 % (95-100) Arterial Blood Base Excess -1.2 (-2-2) Emile Test Positive Microbiology Date/Time Source Procedure Growth Status 09/05/20 14:00 Sputum Gram Stain - Final Resulted 09/05/20 14:00 Sputum Sputum Culture Pending Resulted Assessment/Plan Assessment/Plan Status post uncomplicated trach. Paroxysmal atrial fibrillation with RVR Acute myocardial ischemia with elevated troponin Aspiration risk Sepsis Healthcare acquired PNA Complicated UTI with indwelling catheter Hyponatremia Severe protein calorie malnutrition Acute myocardial ischemia Respiratory failure with hypoxia and hypercarbia - now on mech ventilation Hypokalemia Leukocytosis improving Ac/chronic diastolic CHF Dehydration/hypernatremia resolved into hyponatremia Hypokalemia Acute renal failure Occluded left cephalic vein Metabolic acidosis Trach care Antimicrobials per ID Vent support with setting sdjusted. Taper O2 as able. NGTube feedings on hold for asp'n; PEG to be rescheduled DVT prophylaxis Continue amiodarone - maintenance dose; titrate beta katya. Replace lytes/Mg++ as needed. Titrate anti-HTN regimen as needed. Sarkis Herman MD Sep 06, 2020 22:48
[2020-09-07] VITALS: BP 91/74
--- NOTE | 2020-09-07 00:18 | NUR ---
NURSE NOTES: pt is seen sleeping in bed comfortably, with no signs of respiratory distress. fi02-80% o2 sat- 99%. Continue current management.
--- NOTE | 2020-09-07 01:45 | NUR ---
NURSE NOTES: Noted to have swollen scrotum more on dependent edema- elevated , will refer in AM.
--- NOTE | 2020-09-07 01:57 | NUR ---
NURSE NOTES: Cleaned pt, sponge bath given. Oral care done. Noted large bowel movement brown in color. Continue to plan of care .
[2020-09-07 04:00] VITALS: BP 100/57
[2020-09-07] MEDS: Piperacillin/Tazobactam 3.375 GM in NS 110 ML IVPB SCH (05:05)
[2020-09-07 06:23] LABS: CALCIUM 7.3 MG/DL (8.5-10.1); CREATININE 1.8 MG/DL (0.55-1.30)
--- NOTE | 2020-09-07 07:10 | NUR ---
NURSE NOTES: Received patient from Princess ARGUELLES. patient is obtunded no tracking. sinus rhythm on the monitor. trach to vent at prescribed settings, tolerating well. NGT in the right nare and tube feeding running at prescribed settings, tolerating well. springer is in place and draining to gravity. bed to lowest position and locked, call light within easy reach. Will continue plan of care.
--- NOTE | 2020-09-07 07:39 | NUR ---
NURSE NOTES: Spoke to Dr. Gilmore of urine output of 250ml for 12 shift. Liquidy stool and ordered cdiff and rectal tube and hold heparin <75. Endorsed to next shift.
--- NOTE | 2020-09-07 07:40 | NUR ---
NURSE HAND-OFF REPORT: Important Events on Shift Liquid stool, inserted rectal tube, platelet-98 Patient Status: Guarded Diet: GTF Pending Orders: None Pending Results/Labs: None Pending MD notification:NOne Latest Vital Signs: Temperature 97.9 , Pulse 62 , B/P 100 /57 , Respiratory Rate 24 , O2 SAT 99 , Mechanical Ventilator, O2 Flow Rate 70.0 . Vital Sign Comment: WNL EKG Rhythm: Sinus Rhythm Rhythm change?: N MD Notified?: N -Dr. Virgil KURTZ Response: Message left await call Latest José Fall Score: 85 Fall Risk: High Risk Safety Measures: Call light Within Reach, Bed Alarm Zone 1, Side Rails Side Rails x3, Bed position Low and Locked. Fall Precautions: Yellow Socks Yellow Gown Door Sign Patient Fall Education Report given to [BLANE Bravo].
--- NOTE | 2020-09-07 07:45 | Pulmonolgy Critical Care Note ---
Critical Care - Asmt/Plan Assessment/Plan: Pulmonary CCM Progress Note Subjective ROS Limited/Unobtainable: Yes Constitutional: Reports: fever, other - Dp=977.6 Allergies: Coded Allergies: VANCOMYCIN (Verified Allergy, Severe, hive, 08/27/20) All Systems: reviewed and negative except above Subjective care noted remains intubated diffuse infiltrates on CXR/ oxygenation noted s/p trach,in SDU poor LOC sedated Objective Vital Signs noted Objective WDWN NAD reduced breath sounds bilaterally with scattered rhonchi [id number] NABS nontender no CCE nonfocal trach in place poorly responsive Laboratory Tests noted Medications noted Assessment/Plan Assessment/Plan ASSESSMENT: chronic encephalopathy, dementia, diffuse infiltrates, elevated BNP hypertension, recurrent falls, and urinary tract infection, hypoxemia, probable aspiration pneumonia. acute respiratory failure hypoxemic s/p trach PLAN care noted high fio2 taper monitor PIP- at 66 hyperventilate as able on AC28 poor lung function respiratory care as is- monitor acid base vent support as is full support for now monitor imaging for change suction off load trach care GT Full code nutrition DVT prophylaxis skin care position change prognosis very poor impression, plan, and exam edited and reviewed in detail care discussed with assembler liquid center - Objective Last 24 Hour Vital Signs Date Time Temp Pulse Resp B/P (MAP) Pulse Ox O2 Delivery O2 Flow Rate FiO2 09/07/20 04:00 97.9 84 24 100/57 (71) 99 09/07/20 04:00 Mechanical Ventilator 09/07/20 04:00 70 09/07/20 04:00 62 09/07/20 03:00 76 29 80 09/07/20 00:00 98.2 69 26 91/74 (80) 99 09/07/20 00:00 70 09/07/20 00:00 63 09/07/20 00:00 Mechanical Ventilator 09/06/20 23:00 68 28 80 09/06/20 21:04 79 117/69 09/06/20 20:00 Mechanical Ventilator 09/06/20 20:00 70 09/06/20 20:00 73 09/06/20 20:00 98.1 83 25 108/65 (79) 94 09/06/20 19:15 81 32 80 09/06/20 16:00 68 09/06/20 16:00 70 09/06/20 16:00 Mechanical Ventilator 09/06/20 16:00 98.5 80 28 112/69 (83) 99 09/06/20 14:45 80 29 80 09/06/20 12:00 98.8 77 28 128/70 (89) 99 09/06/20 12:00 70 09/06/20 12:00 Mechanical Ventilator 09/06/20 12:00 77 09/06/20 10:45 77 29 80 09/06/20 08:38 75 132/77 09/06/20 08:00 84 09/06/20 07:46 70 09/06/20 07:46 98.6 68 28 112/67 (82) 98 09/06/20 07:46 Mechanical Ventilator Micro: Microbiology Date/Time Source Procedure Growth Status 09/05/20 14:00 Sputum Gram Stain - Final Resulted 09/05/20 14:00 Sputum Sputum Culture Pending Resulted Critical Care - Subjective ROS Limited/Unobtainable: Yes FI02: 70 Vent Support Breath Rate: 28 Vent Support Mode: AC Vent Tidal Volume: 550 Sputum Amount: Moderate PEEP: 10.0 PIP: 67 Tube Feeding Amount: 50 I&O: Intake and Output 09/06/20 09/07/20 19:00 07:00 Intake Total 902.5 ml 1350 ml Output Total 1300 ml 250 ml Balance -397.5 ml 1100 ml Free Water 200 ml 100 ml IV Total 102.5 ml 750 ml Tube Feeding 600 ml 500 ml Output Urine Total 1300 ml 250 ml # Bowel Movements 2 ET-Tube: 7.5 ET Position: 25 Sarkis Bangura MD Sep 07, 2020 07:45
[2020-09-07 08:00] VITALS: BP 99/66
[2020-09-07] MEDS: Amiodarone 200mg tab NG SCH (08:51)
[2020-09-07] MEDS: Fluconazole 100mg tab NG SCH (08:51)
[2020-09-07] MEDS: Heparin 5000 units/ml inj SUBQ SCH ×2 (08:54→20:21)
--- NOTE | 2020-09-07 10:11 | NUR ---
NURSE NOTES: granddaughter called. transferred call to room so granddaughter is able to speak to patient.
[2020-09-07] MEDS: Albuterol/Ipratropium 3ml neb HHN SCH ×4 (11:00→23:10)
--- NOTE | 2020-09-07 11:56 | Infectious Diseases Prog Note ---
Assessment/Plan Assessment/Plan antibiotics : zosyn, fluconazole A 1. Right-sided pneumonia 2. COVID-19 test is negative. 3. fungal Urinary tract infection 4. Hypertension. 5. Dementia. 6. Respiratory failure s/p tracheostomy 7. leucocytosis increased 8. renal failure P 1. continue zosyn 1 more day 2. continue fluconazole 2 more days 3. will follow up cultures Subjective ROS Limited/Unobtainable: Yes Allergies: Coded Allergies: VANCOMYCIN (Verified Allergy, Severe, hive, 08/27/20) Objective Last 24 Hour Vital Signs Date Time Temp Pulse Resp B/P (MAP) Pulse Ox O2 Delivery O2 Flow Rate FiO2 09/07/20 08:52 75 143/68 09/07/20 08:00 81 09/07/20 08:00 98.4 71 29 99/66 (77) 99 09/07/20 07:00 63 28 80 09/07/20 04:00 97.9 84 24 100/57 (71) 99 09/07/20 04:00 Mechanical Ventilator 09/07/20 04:00 70 09/07/20 04:00 62 09/07/20 03:00 76 29 80 09/07/20 00:00 98.2 69 26 91/74 (80) 99 09/07/20 00:00 70 09/07/20 00:00 63 09/07/20 00:00 Mechanical Ventilator 09/06/20 23:00 68 28 80 09/06/20 21:04 79 117/69 09/06/20 20:00 Mechanical Ventilator 09/06/20 20:00 70 09/06/20 20:00 73 09/06/20 20:00 98.1 83 25 108/65 (79) 94 09/06/20 19:15 81 32 80 09/06/20 16:00 68 09/06/20 16:00 70 09/06/20 16:00 Mechanical Ventilator 09/06/20 16:00 98.5 80 28 112/69 (83) 99 09/06/20 14:45 80 29 80 09/06/20 12:00 98.8 77 28 128/70 (89) 99 09/06/20 12:00 70 09/06/20 12:00 Mechanical Ventilator 09/06/20 12:00 77 Height (Feet): 5 Height (Inches): 4.00 Weight (Pounds): 154 HEENT: status post trach Respiratory/Chest: lungs clear Cardiovascular: normal rate, regular rhythm, no gallop/murmur Abdomen: soft, non tender Extremities: other - + edema Microbiology Date/Time Source Procedure Growth Status 09/05/20 14:00 Sputum Gram Stain - Final Resulted 09/05/20 14:00 Sputum Culture - Preliminary YEAST Resulted Laboratory Tests Test 09/07/20 03:33 Sodium Level 135 MMOL/L (136-145) L Potassium Level 5.0 MMOL/L (3.5-5.1) Chloride Level 103 MMOL/L (98-107) Carbon Dioxide Level 29 MMOL/L (21-32) Anion Gap 3 mmol/L (5-15) L Blood Urea Nitrogen 71 mg/dL (7-18) H Creatinine 1.8 MG/DL (0.55-1.30) H Estimat Glomerular Filtration Rate 35.8 mL/min (>60) Glucose Level 120 MG/DL (74-106) H Calcium Level 7.3 MG/DL (8.5-10.1) L Pro-B-Type Natriuretic Peptide Pending Current Medications Medications (Trade) Dose Ordered Sig/Javon Route PRN Reason Start Time Stop Time Status Last Admin Dose Admin Albuterol/ Ipratropium (Albuterol/ Ipratropium) 3 ml Q4HRT HHN 09/07/20 11:00 09/12/20 10:59 Amiodarone HCl (Cordarone) 200 mg DAILY NG 09/04/20 09:00 11/15/20 08:59 09/07/20 08:51 Fluconazole (Diflucan) 100 mg DAILY NG 09/03/20 09:00 09/10/20 08:59 09/07/20 08:51 Heparin Sodium (Porcine) (Heparin 5000 units/ml) 5,000 units EVERY 12 HOURS SUBQ 08/03/20 09:00 09/17/20 08:59 09/07/20 08:54 Hydralazine HCl (Apresoline) 25 mg Q6H PRN NG SBP above 160 08/11/20 22:30 11/05/20 00:29 08/12/20 15:09 Lansoprazole (Prevacid) 30 mg DAILY NG 08/30/20 09:00 09/29/20 08:59 09/07/20 08:52 Magnesium Hydroxide (Mom) 30 ml DAILYPRN PRN GT Constipation 08/12/20 09:00 09/11/20 08:59 Metoclopramide HCl (Reglan) 5 mg Q8H PRN IVP Nausea & Vomiting 08/15/20 13:00 09/14/20 12:59 Metoprolol Tartrate (Lopressor) 25 mg Q12HR NG 08/13/20 09:00 11/11/20 08:59 09/07/20 08:52 Piperacillin Sod/ Tazobactam Sod 3.375 gm/Sodium Chloride 110 ml @ 27.5 mls/hr EVERY 8 HOURS IVPB 09/02/20 14:00 09/07/20 13:59 09/07/20 05:05 Sodium Chloride 1,000 ml @ 75 mls/hr [id number] IV 09/06/20 13:00 10/06/20 12:59 09/07/20 01:50 Wagner Christensen MD Sep 07, 2020 11:56
[2020-09-07 12:00] VITALS: BP 111/70
--- NOTE | 2020-09-07 12:28 | Cardiology Progress Note ---
Subjective DATE OF SERVICE: Sep 07, 2020 Remains on vent via trach; O2 requirements remain high (70-80%) No respiratory distress BP readings stable Monitor: sinus rhythm with no episodes of bradycardia today. Na levels and renal parameters normalized ABG (09/05) 7.30/56/95 Hemoglobin decreased to 7.5 gm; no signs bleeding. Objective Last 24 Hour Vital Signs Date Time Temp Pulse Resp B/P (MAP) Pulse Ox O2 Delivery O2 Flow Rate FiO2 09/07/20 12:00 99.0 60 28 111/70 (84) 99 09/07/20 12:00 Mechanical Ventilator 09/07/20 12:00 70 09/07/20 08:52 75 143/68 09/07/20 08:00 70 09/07/20 08:00 81 09/07/20 08:00 Mechanical Ventilator 09/07/20 08:00 98.4 71 29 99/66 (77) 99 09/07/20 07:00 63 28 80 09/07/20 04:00 97.9 84 24 100/57 (71) 99 09/07/20 04:00 Mechanical Ventilator 09/07/20 04:00 70 09/07/20 04:00 62 09/07/20 03:00 76 29 80 09/07/20 00:00 98.2 69 26 91/74 (80) 99 09/07/20 00:00 70 09/07/20 00:00 63 09/07/20 00:00 Mechanical Ventilator 09/06/20 23:00 68 28 80 09/06/20 21:04 79 117/69 09/06/20 20:00 Mechanical Ventilator 09/06/20 20:00 70 09/06/20 20:00 73 09/06/20 20:00 98.1 83 25 108/65 (79) 94 09/06/20 19:15 81 32 80 09/06/20 16:00 68 09/06/20 16:00 70 09/06/20 16:00 Mechanical Ventilator 09/06/20 16:00 98.5 80 28 112/69 (83) 99 09/06/20 14:45 80 29 80 ROS: unchanged from my evaluation of 08/02/20 HEENT: Mechanically Ventilated, Thin Trach secretions RHYTHM: NSR, PACs, Afib LUNGS: bilateral rhonchi, trach site clean CARDIAC: normal S1 and S2, irregularly irregular, systolic murmur - 1/6 systolic murmurat apex, rapid rate ABDOMEN: normal bowel sounds, non tender, soft, no organomegaly, other - NGTube EXTREMITIES: normal range of motion, trace edema Laboratory Tests Test 09/07/20 03:33 Sodium Level 135 MMOL/L (136-145) L Potassium Level 5.0 MMOL/L (3.5-5.1) Chloride Level 103 MMOL/L (98-107) Carbon Dioxide Level 29 MMOL/L (21-32) Anion Gap 3 mmol/L (5-15) L Blood Urea Nitrogen 71 mg/dL (7-18) H Creatinine 1.8 MG/DL (0.55-1.30) H Estimat Glomerular Filtration Rate 35.8 mL/min (>60) Glucose Level 120 MG/DL (74-106) H Calcium Level 7.3 MG/DL (8.5-10.1) L Pro-B-Type Natriuretic Peptide Pending Microbiology Date/Time Source Procedure Growth Status 09/05/20 14:00 Sputum Gram Stain - Final Resulted 09/05/20 14:00 Sputum Culture - Preliminary YEAST Resulted Assessment/Plan Assessment/Plan Status post uncomplicated trach. Paroxysmal atrial fibrillation with RVR Acute myocardial ischemia with elevated troponin Aspiration risk Sepsis Healthcare acquired PNA Complicated UTI with indwelling catheter Hyponatremia Severe protein calorie malnutrition Acute myocardial ischemia Respiratory failure with hypoxia and hypercarbia - now on mech ventilation Hypokalemia Leukocytosis improving Ac/chronic diastolic CHF Dehydration/hypernatremia resolved into hyponatremia Hypokalemia Acute renal failure Occluded left cephalic vein Metabolic acidosis Anemia, multifactorial Stable for PEG tomorrow, from cardiovascular standpoint Trach care Antimicrobials per ID Vent support with setting sdjusted. Taper O2 as able. NGTube feedings on hold for asp'n. DVT prophylaxis Continue amiodarone - maintenance dose; titrate beta katya. Replace lytes/Mg++ as needed. Titrate anti-HTN regimen as needed. PRBC tx planned. Sarkis Herman MD Sep 07, 2020 12:28
--- NOTE | 2020-09-07 13:16 | Diagnostic Imaging Report ---
Indication: Shortness of breath Technique: One view of the chest Comparison: 09/03/2020 Findings: Unchanged extensive bilateral diffuse infiltrates. Tracheostomy, nasogastric tube remain. The heart borders are obscured. There is a small left pleural effusion, unchanged Impression: Unchanged, over one day, findings as above.
--- NOTE | 2020-09-07 14:30 | NUR ---
CASE MANAGEMENT:REVIEW 09/07/20 SI: RESP FAILURE~ S/P NEW TRACH PNA. UTI 99.0 60 28 111/70 99% ON VENT SUPPORT W/70-80% FIO2 NO LABS TODAY IS: DUONEB INH Q4HRS RTC IV ZOSYN Q8HRS DIFLUCAN NG QD IVF@75/HR AMIODARONE NG BID LOPRESSOR NG Q12 HEPARIN SQ Q12 : STEP DOWN UNIT [facility] WILL NEED SUBACUTE UPON DISCHARGE PEG PLACEMENT ONCE STABLE TITRATE OXYGEN
--- NOTE | 2020-09-07 14:52 | NUR ---
RADIOLOGY DEPT., CHEST X-RAY DONE.-P.DYE
[2020-09-07 16:00] VITALS: BP 116/69
[2020-09-07] MEDS ORDERED: Piperacillin/Tazobactam 3.375 GM in NS 110 ML IVPB SCH (17:00)
--- NOTE | 2020-09-07 17:32 | Surgery Progress Note ---
Surgery Progress Note Subjective Procedure Performed trach Symptoms: worse, other Additional Comments worsening more vent requirement cxr worse peak pressures very high unfortunately prognosis very guarded Objective Last 24 Hour Vital Signs Date Time Temp Pulse Resp B/P (MAP) Pulse Ox O2 Delivery O2 Flow Rate FiO2 09/07/20 16:00 70 09/07/20 15:30 74 28 99 Mechanical Ventilator 80 80 32 09/07/20 12:00 99.0 60 28 111/70 (84) 99 09/07/20 12:00 Mechanical Ventilator 09/07/20 12:00 71 09/07/20 12:00 70 09/07/20 11:30 71 29 80 09/07/20 08:52 75 143/68 09/07/20 08:00 70 09/07/20 08:00 81 09/07/20 08:00 Mechanical Ventilator 09/07/20 08:00 98.4 71 29 99/66 (77) 99 09/07/20 07:00 63 28 80 09/07/20 04:00 97.9 84 24 100/57 (71) 99 09/07/20 04:00 Mechanical Ventilator 09/07/20 04:00 70 09/07/20 04:00 62 09/07/20 03:00 76 29 80 09/07/20 00:00 98.2 69 26 91/74 (80) 99 09/07/20 00:00 70 09/07/20 00:00 63 09/07/20 00:00 Mechanical Ventilator 09/06/20 23:00 68 28 80 09/06/20 21:04 79 117/69 09/06/20 20:00 Mechanical Ventilator 09/06/20 20:00 70 09/06/20 20:00 73 09/06/20 20:00 98.1 83 25 108/65 (79) 94 09/06/20 19:15 81 32 80 I&O Intake and Output 09/06/20 09/07/20 19:00 07:00 Intake Total 902.5 ml 1425 ml Output Total 1300 ml 250 ml Balance -397.5 ml 1175 ml Free Water 200 ml 100 ml IV Total 102.5 ml 825 ml Tube Feeding 600 ml 500 ml Output Urine Total 1300 ml 250 ml # Bowel Movements 2 Dressing: saturated Cardiovascular: RSR Respiratory: decreased breath sounds Abdomen: non-tender, present bowel sounds, non-distended Extremities: no tenderness, no cyanosis Laboratory Tests Test 09/07/20 03:33 Sodium Level 135 MMOL/L (136-145) L Potassium Level 5.0 MMOL/L (3.5-5.1) Chloride Level 103 MMOL/L (98-107) Carbon Dioxide Level 29 MMOL/L (21-32) Anion Gap 3 mmol/L (5-15) L Blood Urea Nitrogen 71 mg/dL (7-18) H Creatinine 1.8 MG/DL (0.55-1.30) H Estimat Glomerular Filtration Rate 35.8 mL/min (>60) Glucose Level 120 MG/DL (74-106) H Calcium Level 7.3 MG/DL (8.5-10.1) L Pro-B-Type Natriuretic Peptide Pending Plan Problems: (1) Pneumonia (2) Hypoxia (3) Sepsis Assessment & Plan: respiratory insufficiency prolonged ventilatory support failed weaning trials weaning vent as much as possible anticipate prolong vent support trach indicated and recommended will obtain consent plan for trach as able to wean thank you cont weaning will follow with recs s/p trach wean sedation wean vent no active bleeding noted h/h noted trend labs worsening prognosis guarded (4) UTI (urinary tract infection) (5) Pneumonia (6) AMS (altered mental status) Isaias Loaiza Sep 07, 2020 17:32
[2020-09-07] MEDS: Piperacillin/Tazobactam 2.25 GM in NS 55 ML IV SCH (17:36)
--- NOTE | 2020-09-07 17:38 | General Progress Note ---
Subjective Allergies: Coded Allergies: VANCOMYCIN (Verified Allergy, Severe, hive, 08/27/20) Subjective above noted Non responsive d/w RN no events overnight d/w family, Ruth Green, at length overall poor health and poor prognosis emphasized she wants patient to undergo PEG placement - advised will schedule in am with Dr. Dorsey Objective Last 24 Hour Vital Signs Date Time Temp Pulse Resp B/P (MAP) Pulse Ox O2 Delivery O2 Flow Rate FiO2 09/07/20 16:00 70 09/07/20 15:30 74 28 99 Mechanical Ventilator 80 80 32 09/07/20 12:00 99.0 60 28 111/70 (84) 99 09/07/20 12:00 Mechanical Ventilator 09/07/20 12:00 71 09/07/20 12:00 70 09/07/20 11:30 71 29 80 09/07/20 08:52 75 143/68 09/07/20 08:00 70 09/07/20 08:00 81 09/07/20 08:00 Mechanical Ventilator 09/07/20 08:00 98.4 71 29 99/66 (77) 99 09/07/20 07:00 63 28 80 09/07/20 04:00 97.9 84 24 100/57 (71) 99 09/07/20 04:00 Mechanical Ventilator 09/07/20 04:00 70 09/07/20 04:00 62 09/07/20 03:00 76 29 80 09/07/20 00:00 98.2 69 26 91/74 (80) 99 09/07/20 00:00 70 09/07/20 00:00 63 09/07/20 00:00 Mechanical Ventilator 09/06/20 23:00 68 28 80 09/06/20 21:04 79 117/69 09/06/20 20:00 Mechanical Ventilator 09/06/20 20:00 70 09/06/20 20:00 73 09/06/20 20:00 98.1 83 25 108/65 (79) 94 09/06/20 19:15 81 32 80 Intake and Output 09/06/20 09/07/20 19:00 07:00 Intake Total 902.5 ml 1425 ml Output Total 1300 ml 250 ml Balance -397.5 ml 1175 ml Free Water 200 ml 100 ml IV Total 102.5 ml 825 ml Tube Feeding 600 ml 500 ml Output Urine Total 1300 ml 250 ml # Bowel Movements 2 Laboratory Tests 09/07/20 03:33: Sodium Level 135L, Potassium Level 5.0, Chloride Level 103, Carbon Dioxide Level 29, Anion Gap 3L, Blood Urea Nitrogen 71H, Creatinine 1.8H, Estimat Glomerular Filtration Rate 35.8, Glucose Level 120H, Calcium Level 7.3L, Pro-B-Type Natriuretic Peptide [Pending] Height (Feet): 5 Height (Inches): 4.00 Weight (Pounds): 154 Objective Elderly man unresponsive NCAT supple, (+) trach scattered ronchi RR abd soft trace edema Assessment/Plan Status: stable, not improved Assessment/Plan: Assessment - Leukocytosis - better - respiratory failure, s/p Trach - Parox a fib - acute myocardial ischemia - PNA/sepsis - dysphagia - elevated glucose - poor prognosis Recommendations - glucerna TF - Increase rate to meet demands - PEG in am - ID follow up - Pulmonary toilet Arely Parks MD Sep 07, 2020 17:38
[2020-09-07] MEDS: D5 1/2NS 1,000 ML IV SCH (17:56)
[2020-09-07 18:52] LABS: HEMATOCRIT 21.9 % (42.0-52.0); HEMOGLOBIN 7.5 G/DL (14.2-18.0); MEAN CORPUSCULAR VOLUME 87 FL (80-99); PLATELET COUNT 91 K/UL (150-450); RED BLOOD COUNT 2.52 M/UL (4.70-6.10); RED CELL DISTRIBUTION WIDTH 14.8 % (11.6-14.8); WHITE BLOOD COUNT 17.4 K/UL (4.8-10.8)
--- NOTE | 2020-09-07 19:00 | NUR ---
NURSE NOTES: Spoke to Grand daughter Jessica Miranda and consented to have EGD with PEG, discussed with Dr. Dorsey earlier per Grand daughter.
--- NOTE | 2020-09-07 19:05 | NUR ---
NURSE NOTES: Received report from BLANE Bravo. pt is seen lying in bed in semi- carlos's position, pt is obtunded doesnt track eyes, oriented with deep pain. Pt has NGT on Right nares patent and intact, 60cm in length. Pt has weeping on both sides of the upper bilateral arms and scrotal swelling, on rectal tube draining liquid stool. No pain noted. Not in respiratory distress. trach to vent with settings AC 28 TV 550 Fio2 -80% peep of 10. o2 sat-100%. For EGD and Peg placement tomorrow spoke to Dr. Dorsey he will have it 12nn, consent signed spoke to Ruth. Low urine output of 200ml in AM, Dr. lei previously aware. Bed in lowest position, Call light within reach. Continue to plan of care.
--- NOTE | 2020-09-07 19:10 | NUR ---
NURSE HAND-OFF REPORT: Important Events on Shift: Patient Status: FULL code Diet: glucerna 1.5 @50ml/hr Pending Orders: PEG placement tomorrow Pending Results/Labs:[] Pending MD notification:[] Latest Vital Signs: Temperature 98.8 , Pulse 72 , B/P 116 /69 , Respiratory Rate 28 , O2 SAT 99 , Mechanical Ventilator, O2 Flow Rate 70.0 . Vital Sign Comment: stable EKG Rhythm: Sinus Rhythm Rhythm change?: N Notified?: N -Dr. Virgil KURTZ Response: Message left await call Latest José Fall Score: 85 Fall Risk: High Risk Safety Measures: Call light Within Reach, Bed Alarm Zone 1, Side Rails Side Rails x3, Bed position Low and Locked. Fall Precautions: Yellow Socks Yellow Gown Door Sign Patient Fall Education Report given to BLANE Vega.
[2020-09-07 20:00] VITALS: BP 144/79
--- NOTE | 2020-09-07 23:06 | NUR ---
NURSE NOTES: Received result for CBC, hgb- 7.5mg/dl ,Left message to Dr. Dorsey. Awaiting for response.
--- NOTE | 2020-09-07 23:12 | NUR ---
NURSE NOTES: Left message to Dr. kay. regarding hgb 7.5. Awaiting for response.
--- NOTE | 2020-09-07 23:17 | NUR ---
NURSE NOTES: Spoke to Dr. Herman regarding order to tranfuse PRBC x 1. ordered and carried out.
--- NOTE | 2020-09-07 23:22 | NUR ---
NURSE NOTES: Spoke to venus regarding the BT, hgb of 7.5. Will continue to update family.
[2020-09-08] VITALS: BP 102/76
[2020-09-08] MEDS: Piperacillin/Tazobactam 2.25 GM in NS 55 ML IV SCH ×2 (00:49→09:00)
--- NOTE | 2020-09-08 00:56 | NUR ---
NURSE NOTES: FF up laboratory on blood transfusion availability. Awaiting for response.
--- NOTE | 2020-09-08 01:15 | NUR ---
NURSE NOTES: Started tranfusion, No any transfusion reactions noted. NO fever, no any distress.
--- NOTE | 2020-09-08 01:30 | NUR ---
NURSE NOTES: No transfusion reaction noted, No fever noted. Not in distress. bed in lowest position, continue to plan of care.
[2020-09-08] MEDS: Albuterol/Ipratropium 3ml neb HHN SCH ×6 (02:07→23:06)
--- NOTE | 2020-09-08 03:29 | NUR ---
NURSE NOTES: Sediments noted in spring[place], flushed per protocol.
[2020-09-08 04:00] VITALS: BP 131/74
--- NOTE | 2020-09-08 04:39 | NUR ---
NURSE NOTES: Cleaned pt, sponge bath given, noted weaping of upper and lower bilateral extrimities. Rectal tube still intact. Continue to plan of care.
--- NOTE | 2020-09-08 05:15 | NUR ---
NURSE NOTES: Not in respiratory distress noted. o2 sat-100%. Tranfusion done, no transfusion reaction noted. No congestion noted. Oral care done. Continue to monitor pt closely.
--- NOTE | 2020-09-08 07:15 | NUR ---
NURSE HAND-OFF REPORT: Important Events on Shift: S/P PRBC x 1. For EGD/ Peg placement- With consent signed Patient Status: Guarded/ Poor prognosis Diet: NPO MN Pending Orders: None Pending Results/Labs: None Pending MD notification: None Latest Vital Signs: Temperature 97.9 , Pulse 80 , B/P 131 /74 , Respiratory Rate 25 , O2 SAT 97 , Mechanical Ventilator, O2 Flow Rate 70.0 . Vital Sign Comment: WNL EKG Rhythm: Sinus Rhythm Rhythm change?: Y Notified?: N -Dr. Virgil KURTZ Response: Message left await call Latest José Fall Score: 85 Fall Risk: High Risk Safety Measures: Call light Within Reach, Bed Alarm Zone 1, Side Rails Side Rails x3, Bed position Low and Locked. Fall Precautions: Yellow Socks Yellow Gown Door Sign Patient Fall Education Report given to [Ryder ,RN].
--- NOTE | 2020-09-08 07:15 | NUR ---
NURSE NOTES: Received report from Princess ARGUELLES.
[2020-09-08 08:00] VITALS: BP 110/63
[2020-09-08] MEDS ORDERED: Midazolam 2mg/2ml Inj IVP PRN (08:00)
[2020-09-08] MEDS ORDERED: Atropine Inj 1mg/10ml Syr IVP PRN (08:00)
[2020-09-08] MEDS ORDERED: DiphenhydrAMINE 50mg/ml Inj IVP PRN (08:00)
--- NOTE | 2020-09-08 08:30 | NUR ---
NURSE NOTES: Pt. in bed, obtunded. No sign of distress. Mech vent dependent with setting of AC28/VT550/Fi O2 at 80%/P10. No grimacing noted. NPO since midnight prep for EGD procedure. Consent in placed. IV right hand #20g. in placed patent/intact. Bed in low position, locked. Call light within reach. Will cont. to monitor.
[2020-09-08] MEDS: Heparin 5000 units/ml inj SUBQ SCH ×2 (09:00→20:31)
[2020-09-08] MEDS: Amiodarone 200mg tab NG SCH (09:00)
[2020-09-08] MEDS: Fluconazole 100mg tab NG SCH (09:00)
[2020-09-08 09:03] LABS: HEMATOCRIT 26.3 % (42.0-52.0); HEMOGLOBIN 9.4 G/DL (14.2-18.0); MEAN CORPUSCULAR VOLUME 86 FL (80-99); PLATELET COUNT 88 K/UL (150-450); RED BLOOD COUNT 3.06 M/UL (4.70-6.10); RED CELL DISTRIBUTION WIDTH 13.4 % (11.6-14.8); WHITE BLOOD COUNT 18.1 K/UL (4.8-10.8)
--- NOTE | 2020-09-08 09:29 | General Progress Note ---
Subjective ROS Limited/Unobtainable: No Constitutional: Reports: malaise, weakness HEENT: Reports: no symptoms Cardiovascular: Reports: no symptoms Respiratory: Reports: cough, shortness of breath, sputum Gastrointestinal/Abdominal: Reports: difficulty swallowing Genitourinary: Reports: no symptoms Neurologic/Psychiatric: Reports: pre-existing deficit Endocrine: Reports: no symptoms Hematologic/Lymphatic: Reports: anemia Allergies: Coded Allergies: VANCOMYCIN (Verified Allergy, Severe, hive, 08/27/20) All Systems: reviewed and negative except above Subjective no change. vent dependent. increase fio2 requirements. no fevers or chills. labs reviewed. cxr unchanged. renal fxn trending up. awake. Objective Last 24 Hour Vital Signs Date Time Temp Pulse Resp B/P (MAP) Pulse Ox O2 Delivery O2 Flow Rate FiO2 09/08/20 08:04 63 28 100 Mechanical Ventilator 80 70 28 80 09/08/20 04:00 Mechanical Ventilator 09/08/20 04:00 80 09/08/20 04:00 97.9 71 25 131/74 (93) 97 09/08/20 04:00 70 09/08/20 02:14 74 29 100 Mechanical Ventilator 80 77 28 80 09/08/20 00:00 97.9 64 28 102/76 (85) 97 09/08/20 00:00 70 09/08/20 00:00 Mechanical Ventilator 09/08/20 00:00 58 09/07/20 23:09 69 28 99 Mechanical Ventilator 80 80 28 09/07/20 20:42 79 144/79 09/07/20 20:00 70 09/07/20 20:00 Mechanical Ventilator 09/07/20 20:00 98.2 78 27 144/79 (100) 98 09/07/20 20:00 84 09/07/20 19:45 76 32 98 Mechanical Ventilator 80 80 29 09/07/20 16:00 Mechanical Ventilator 09/07/20 16:00 72 09/07/20 16:00 98.8 62 28 116/69 (85) 99 09/07/20 16:00 70 09/07/20 15:30 74 28 99 Mechanical Ventilator 80 80 32 09/07/20 12:00 99.0 60 28 111/70 (84) 99 09/07/20 12:00 Mechanical Ventilator 09/07/20 12:00 71 09/07/20 12:00 70 12/21/20 11:30 71 29 80 Intake and Output 09/07/20 09/08/20 19:00 07:00 Intake Total 1440 ml 1050 ml Output Total 230 ml 450 ml Balance 1210 ml 600 ml Free Water 90 ml IV Total 750 ml 600 ml Tube Feeding 600 ml 200 ml Blood Product 250 ml Output Urine Total 200 ml 450 ml Stool Total 30 ml # Bowel Movements 1 100 Laboratory Tests 09/07/20 18:19: White Blood Count 17.4H, Red Blood Count 2.52L, Hemoglobin 7.5L, Hematocrit 21.9L, Mean Corpuscular Volume 87, Mean Corpuscular Hemoglobin 29.9, Mean Corpuscular Hemoglobin Concent 34.4, Red Cell Distribution Width 14.8, Platelet Count 91L, Mean Platelet Volume 11.6H, Neutrophils (%) (Auto) , Lymphocytes (%) (Auto) , Monocytes (%) (Auto) , Eosinophils (%) (Auto) , Basophils (%) (Auto) , Differential Total Cells Counted 100, Neutrophils % (Manual) 83H, Lymphocytes % (Manual) 4L, Monocytes % (Manual) 1, Eosinophils % (Manual) 0, Basophils % (Manual) 0, Band Neutrophils 12H, Platelet Estimate DecreasedL, Platelet Morphology Normal, Red Blood Cell Morphology Normal, Prothrombin Time 10.9, Prothromb Time International Ratio 1.0 09/08/20 08:39: White Blood Count 18.1H, Red Blood Count 3.06L, Hemoglobin 9.4L, Hematocrit 26.3L, Mean Corpuscular Volume 86, Mean Corpuscular Hemoglobin 30.7, Mean Corpuscular Hemoglobin Concent 35.7, Red Cell Distribution Width 13.4, Platelet Count 88L, Mean Platelet Volume 11.2H, Neutrophils (%) (Auto) , Lymphocytes (%) (Auto) , Monocytes (%) (Auto) , Eosinophils (%) (Auto) , Basophils (%) (Auto) , Neutrophils % (Manual) [Pending], Lymphocytes % (Manual) [Pending], Platelet Estimate [Pending], Platelet Morphology [Pending] Height (Feet): 5 Height (Inches): 4.00 Weight (Pounds): 147 Objective General Appearance: WD/WN, confused, thin. on the vent EENT: normal ENT inspection Neck: non-tender, normal alignment, supple. trach midline Cardiovascular: normal rate, regular rhythm Respiratory/Chest: chest wall non-tender, lungs clear, normal breath sounds, no respiratory distress, no accessory muscle use Abdomen: normal bowel sounds, non tender, soft, no organomegaly Edema: no edema noted Arm (L), no edema noted Arm (R) Assessment/Plan Problem List: (1) Pneumonia ICD Codes: J18.9 - Pneumonia, unspecified organism SNOMED: 667710444 (2) Hypoxia ICD Codes: R09.02 - Hypoxemia SNOMED: 339461101 (3) AMS (altered mental status) ICD Codes: R41.82 - Altered mental status, unspecified SNOMED: 716134946 (4) UTI (urinary tract infection) ICD Codes: N39.0 - Urinary tract infection, site not specified SNOMED: 57559550 (5) Sepsis ICD Codes: A41.9 - Sepsis, unspecified organism SNOMED: 75116551 Status: stable, not improved Assessment/Plan: vent support trach care stable for gt abx per ID suctioning gentle hydration monitor labs/lytes replace as needes dvt/stress ulcer prophylaxis turn q2 poor prognosis Chavez Gilmore MD Sep 08, 2020 09:29
--- NOTE | 2020-09-08 09:50 | Infectious Diseases Prog Note ---
Assessment/Plan Assessment/Plan A: 1. Bilateral pneumonia treated 2. COVID-19 test is negative. 3. Urinary tract infection. 4. Hypertension. 5. Dementia. 6. Respiratory failure intubated 7. Parkinson's disease 8. Fungal UTI PLAN: Discontinue Zosyn Continue Fluconazole X 1 day Subjective ROS Limited/Unobtainable: Yes Constitutional: Denies: fever Gastrointestinal/Abdominal: Reports: other - will have NG tube placement today Allergies: Coded Allergies: VANCOMYCIN (Verified Allergy, Severe, hive, 08/27/20) Objective Last 24 Hour Vital Signs Date Time Temp Pulse Resp B/P (MAP) Pulse Ox O2 Delivery O2 Flow Rate FiO2 09/08/20 08:04 63 28 100 Mechanical Ventilator 80 70 28 80 09/08/20 04:00 Mechanical Ventilator 09/08/20 04:00 80 09/08/20 04:00 97.9 71 25 131/74 (93) 97 09/08/20 04:00 70 09/08/20 02:14 74 29 100 Mechanical Ventilator 80 77 28 80 09/08/20 00:00 97.9 64 28 102/76 (85) 97 09/08/20 00:00 70 09/08/20 00:00 Mechanical Ventilator 09/08/20 00:00 58 09/07/20 23:09 69 28 99 Mechanical Ventilator 80 80 28 09/07/20 20:42 79 144/79 09/07/20 20:00 70 09/07/20 20:00 Mechanical Ventilator 09/07/20 20:00 98.2 78 27 144/79 (100) 98 09/07/20 20:00 84 09/07/20 19:45 76 32 98 Mechanical Ventilator 80 80 29 09/07/20 16:00 Mechanical Ventilator 09/07/20 16:00 72 09/07/20 16:00 98.8 62 28 116/69 (85) 99 09/07/20 16:00 70 09/07/20 15:30 74 28 99 Mechanical Ventilator 80 80 32 09/07/20 12:00 99.0 60 28 111/70 (84) 99 09/07/20 12:00 Mechanical Ventilator 09/07/20 12:00 71 09/07/20 12:00 70 09/07/20 11:30 71 29 80 Height (Feet): 5 Height (Inches): 4.00 Weight (Pounds): 147 HEENT: status post trach, other - dry mouth Respiratory/Chest: other - coarse sounds on ventilator Cardiovascular: normal rate Abdomen: soft, non tender, other - NG tube Extremities: other - generalized edema Neurologic/Psychiatric: unresponsiveness, aphasia Microbiology Date/Time Source Procedure Growth Status 09/08/20 01:30 Nasopharynx SARS-CoV-2 RdRp Gene Assay - Final Complete 09/07/20 13:34 Stool Clostridium difficile Toxin Assay - Final Complete 09/05/20 14:00 Sputum Gram Stain - Final Resulted 09/05/20 14:00 Sputum Culture - Preliminary YEAST Resulted Laboratory Tests Test 09/07/20 18:19 09/08/20 08:39 White Blood Count 17.4 K/UL (4.8-10.8) H 18.1 K/UL (4.8-10.8) H Red Blood Count 2.52 M/UL (4.70-6.10) L 3.06 M/UL (4.70-6.10) L Hemoglobin 7.5 G/DL (14.2-18.0) L 9.4 G/DL (14.2-18.0) L Hematocrit 21.9 % (42.0-52.0) L 26.3 % (42.0-52.0) L Mean Corpuscular Volume 87 FL (80-99) 86 FL (80-99) Mean Corpuscular Hemoglobin 29.9 PG (27.0-31.0) 30.7 PG (27.0-31.0) Mean Corpuscular Hemoglobin Concent 34.4 G/DL (32.0-36.0) 35.7 G/DL (32.0-36.0) Red Cell Distribution Width 14.8 % (11.6-14.8) 13.4 % (11.6-14.8) Platelet Count 91 K/UL (150-450) L 88 K/UL (150-450) L Mean Platelet Volume 11.6 FL (6.5-10.1) H 11.2 FL (6.5-10.1) H Neutrophils (%) (Auto) % (45.0-75.0) % (45.0-75.0) Lymphocytes (%) (Auto) % (20.0-45.0) % (20.0-45.0) Monocytes (%) (Auto) % (1.0-10.0) % (1.0-10.0) Eosinophils (%) (Auto) % (0.0-3.0) % (0.0-3.0) Basophils (%) (Auto) % (0.0-2.0) % (0.0-2.0) Differential Total Cells Counted 100 Neutrophils % (Manual) 83 % (45-75) H Pending Lymphocytes % (Manual) 4 % (20-45) L Pending Monocytes % (Manual) 1 % (1-10) Eosinophils % (Manual) 0 % (0-3) Basophils % (Manual) 0 % (0-2) Band Neutrophils 12 % (0-8) H Platelet Estimate Decreased L Pending Platelet Morphology Normal Pending Red Blood Cell Morphology Normal Prothrombin Time 10.9 SEC (9.30-11.50) Prothromb Time International Ratio 1.0 (0.9-1.1) Current Medications Medications (Trade) Dose Ordered Sig/Javon Route PRN Reason Start Time Stop Time Status Last Admin Dose Admin Acetaminophen (Tylenol) 650 mg Q4H PRN ORAL Mild Pain (Pain Scale 1-3) 09/08/20 08:00 09/08/20 15:00 Al Hydroxide/Mg Hydroxide (Mylanta) 15 ml Q1H PRN ORAL gi upset 09/08/20 08:00 09/08/20 15:00 Albuterol/ Ipratropium (Albuterol/ Ipratropium) 3 ml Q4HRT HHN 09/07/20 11:00 09/12/20 10:59 09/08/20 07:54 Amiodarone HCl (Cordarone) 200 mg DAILY NG 09/04/20 09:00 11/15/20 08:59 09/07/20 08:51 Atropine Sulfate (Atropine) 0.5 mg Q5M PRN IVP bpm less than 45 09/08/20 08:00 09/08/20 15:00 Dextrose/Sodium Chloride 1,000 ml @ 75 mls/hr [id number] IV 09/07/20 23:59 10/07/20 23:58 09/07/20 17:56 Diphenhydramine HCl (Benadryl) 25 mg Q15M PRN IVP Itching 09/08/20 08:00 09/08/20 15:00 Fluconazole (Diflucan) 100 mg DAILY NG 09/03/20 09:00 09/10/20 08:59 09/07/20 08:51 Heparin Sodium (Porcine) (Heparin 5000 units/ml) 5,000 units EVERY 12 HOURS SUBQ 08/03/20 09:00 09/17/20 08:59 09/07/20 08:54 Hydralazine HCl (Apresoline) 5 mg Q30M PRN IV SBP>160 OR___/DBP>90 OR___ 09/08/20 08:00 09/08/20 15:00 Hydralazine HCl (Apresoline) 25 mg Q6H PRN NG SBP above 160 08/11/20 22:30 11/05/20 00:29 08/12/20 15:09 Lansoprazole (Prevacid) 30 mg DAILY NG 08/30/20 09:00 09/29/20 08:59 09/07/20 08:52 Magnesium Hydroxide (Mom) 30 ml DAILYPRN PRN GT Constipation 08/12/20 09:00 09/11/20 08:59 Metoclopramide HCl (Reglan) 5 mg Q8H PRN IVP Nausea & Vomiting 08/15/20 13:00 09/14/20 12:59 Metoprolol Tartrate (Lopressor) 25 mg Q12HR NG 08/13/20 09:00 11/11/20 08:59 09/07/20 20:42 Midazolam HCl (Versed 2mg/2ml vial) 1 mg Q15M PRN IVP For Anxiety 09/08/20 08:00 09/08/20 15:00 Sodium Chloride 1,000 ml @ 10 mls/hr Q24H IVLG 09/08/20 08:00 09/08/20 15:00 Baldev Luo MD Sep 08, 2020 09:50
--- NOTE | 2020-09-08 10:50 | Anethesia Preoperative Eval ---
Anesthesia Pre-op PMH/ROS General Date of Evaluation: Sep 08, 2020 Time of Evaluation: 10:45 Anesthesiologist: Arsen ASA Score: ASA 4 Mallampati Score Class I : Soft palate, uvula, fauces, pillars visible Class II: Soft palate, uvula, fauces visible Class III: Soft palate, base of uvula visible Class IV: Only hard plate visible Mallampati Classification: Class III Surgeon: Sunita Diagnosis: Dysphagia Surgical Procedure: EGD PEG Anesthesia History: none Family History: no anesthesia problems Allergies: Coded Allergies: VANCOMYCIN (Verified Allergy, Severe, hive, 08/27/20) Medications: see eMAR Patient NPO?: Yes NPO Date: Aug 26, 2020 NPO Time: 00:01 Past Medical History Cardiovascular: Reports: HTN; Denies: CAD, PA, valve dz, arrhythmia, other Pulmonary: Reports: other - respiratory failure trach in place vent dependent; Denies: asthma, COPD, DENZEL Gastrointestinal/Genitourinary: Reports: CRI; Denies: GERD, ESRD, other Neurologic/Psychiatric: Reports: dementia, other - Parkinsons; Denies: CVA, depression/anxiety, TIA Endocrine: Reports: hypothyroidism; Denies: DM, steroids, other HEENT: Denies: cataract (L), cataract (R), glaucoma, GRINDSTONE (L), GRINDSTONE (R), other Hematology/Immune: Reports: anemia - of chronic d-s; Denies: DVT, bleeding disorder, other Musculoskeletal/Integumentary: Reports: DJD, other - contructed; Denies: OA, RA, DDD, edema Other: other - malnourished PMH Narrative: as above PSxH Narrative: see H&P Anesthesia Pre-op Phys. Exam Physician Exam Last Vital Signs Date Time Temp Pulse Resp B/P (MAP) Pulse Ox O2 Delivery O2 Flow Rate FiO2 09/08/20 08:04 63 28 100 Mechanical Ventilator 80 70 28 80 09/08/20 08:00 97.7 110/63 (79) 09/04/20 04:00 70.0 Constitutional: NAD Neurologic: other - unable to obtaine Cardiovascular: RRR Respiratory: other - diminished breath sounds Airway Exam Mallampati Score: Class III MO: limited Neck: stiff trach in place ROM: limited Teeth: missing Dentures: no upper, no lower Anesthesia Pre-op A/P Labs Hematology Test 09/07/20 18:19 09/08/20 08:39 White Blood Count 17.4 K/UL (4.8-10.8) H 18.1 K/UL (4.8-10.8) H Red Blood Count 2.52 M/UL (4.70-6.10) L 3.06 M/UL (4.70-6.10) L Hemoglobin 7.5 G/DL (14.2-18.0) L 9.4 G/DL (14.2-18.0) L Hematocrit 21.9 % (42.0-52.0) L 26.3 % (42.0-52.0) L Mean Corpuscular Volume 87 FL (80-99) 86 FL (80-99) Mean Corpuscular Hemoglobin 29.9 PG (27.0-31.0) 30.7 PG (27.0-31.0) Mean Corpuscular Hemoglobin Concent 34.4 G/DL (32.0-36.0) 35.7 G/DL (32.0-36.0) Red Cell Distribution Width 14.8 % (11.6-14.8) 13.4 % (11.6-14.8) Platelet Count 91 K/UL (150-450) L 88 K/UL (150-450) L Mean Platelet Volume 11.6 FL (6.5-10.1) H 11.2 FL (6.5-10.1) H Neutrophils (%) (Auto) % (45.0-75.0) % (45.0-75.0) Lymphocytes (%) (Auto) % (20.0-45.0) % (20.0-45.0) Monocytes (%) (Auto) % (1.0-10.0) % (1.0-10.0) Eosinophils (%) (Auto) % (0.0-3.0) % (0.0-3.0) Basophils (%) (Auto) % (0.0-2.0) % (0.0-2.0) Differential Total Cells Counted 100 100 Neutrophils % (Manual) 83 % (45-75) H 92 % (45-75) H Lymphocytes % (Manual) 4 % (20-45) L 3 % (20-45) L Monocytes % (Manual) 1 % (1-10) 3 % (1-10) Eosinophils % (Manual) 0 % (0-3) 0 % (0-3) Basophils % (Manual) 0 % (0-2) 0 % (0-2) Band Neutrophils 12 % (0-8) H 2 % (0-8) Platelet Estimate Decreased L Decreased L Platelet Morphology Normal Normal Red Blood Cell Morphology Normal Hypochromasia 1+ Coagulation Test 09/07/20 18:19 Prothrombin Time 10.9 SEC (9.30-11.50) Prothromb Time International Ratio 1.0 (0.9-1.1) Risk Assessment & Plan Assessment: ASA 4 Plan: MAC Status Change Before Surgery: No Pre-Antibiotics Drug: as scheduled Ritchie Leger MD Sep 08, 2020 10:50
[2020-09-08] MEDS ORDERED: fentaNYL 100 mcg/2 mL IV ONE (10:53)
[2020-09-08] MEDS ORDERED: NS 500ML IVPB ONE (10:55)
--- NOTE | 2020-09-08 11:16 | Pre-Procedure Note/Attestation ---
Pre-Procedure Note/Attestation Complete Prior to Procedure Planned Procedure: not applicable Procedure Narrative: egd/peg Indications for Procedure Pre-Operative Diagnosis: dysphagia Attestation I attest that I discussed the nature of the procedure; its benefits; risks and complications; and alternatives (and the risks and benefits of such alternatives), prior to the procedure, with the patient (or the patient's legal event sales representative). I attest that, if there was a reasonable possibility of needing a blood transfu sarah, the patient (or the patient's legal event sales representative) was given the [facility] standardized written summary, pursuant to the James Rachael Blood Safety Act ([place] Health and Safety Code # 1645, as amended). I attest that I re-evaluated the patient just prior to the surgery and that there has been no change in the patient's H&P, except as documented below: Thomas Dorsey MD Sep 08, 2020 11:16
--- NOTE | 2020-09-08 11:17 | NUR ---
NURSE NOTES: Dr. Dorsey at bedside for EGD procedure.
--- NOTE | 2020-09-08 11:27 | Endoscopy Procedure Note ---
Endoscopy Procedure Note General Indication for Procedure: dysphagia Procedures Performed: EGD, PEG Operative Findings/Diagnosis: same Specimen: none Pt Tolerated Procedure Well: Yes Estimated Blood Loss: none Anesthesia Anesthesiologist: xavier Anesthesia: MAC Inserted Devices Implant(s) used?: No GI Core Measures 50 yrs or older w/o bx or poly: Not Applicable 10yrs. F/U recommended: Not Applicable Thomas Dorsey MD Sep 08, 2020 11:27
--- NOTE | 2020-09-08 11:33 | Immediate Post-Op Evaluation ---
Immediate Post-Op Evalulation Immediate Post-Op Evalulation Procedure: EGD PEG tube placement Date of Evaluation: Sep 08, 2020 Time of Evaluation: 11:32 IV Fluids: 100 Blood Products: NONE Estimated Blood Loss: MIN Urinary Output: NONE Blood Pressure Systolic: 102 Blood Pressure Diastolic: 56 Pulse Rate: 78 Respiratory Rate: 20 O2 Sat by Pulse Oximetry: 98 Temperature (Fahrenheit): 97.6 Pain Score (1-10): 1 Nausea: No Vomiting: No Complications none Patient Status: no response, ventilated, none Hydration Status: adequate Ritchie Leger MD Sep 08, 2020 11:33
--- NOTE | 2020-09-08 11:37 | NUR ---
NURSE NOTES: S/P PEG placement. Removed NGT.
[2020-09-08 12:00] VITALS: BP 95/90
--- NOTE | 2020-09-08 12:23 | Surgery Progress Note ---
Surgery Progress Note Subjective Procedure Performed trach Additional Comments peg today labs noted exam unchanged Objective Last 24 Hour Vital Signs Date Time Temp Pulse Resp B/P (MAP) Pulse Ox O2 Delivery O2 Flow Rate FiO2 09/08/20 11:33 78 20 98 09/08/20 08:04 63 28 100 Mechanical Ventilator 80 70 28 80 09/08/20 08:00 97.7 69 26 110/63 (79) 100 09/08/20 08:00 Mechanical Ventilator 09/08/20 08:00 70 09/08/20 07:46 58 09/08/20 04:00 Mechanical Ventilator 09/08/20 04:00 80 09/08/20 04:00 97.9 71 25 131/74 (93) 97 09/08/20 04:00 70 09/08/20 02:14 74 29 100 Mechanical Ventilator 80 77 28 80 09/08/20 00:00 97.9 64 28 102/76 (85) 97 09/08/20 00:00 70 09/08/20 00:00 Mechanical Ventilator 09/08/20 00:00 58 09/07/20 23:09 69 28 99 Mechanical Ventilator 80 80 28 09/07/20 20:42 79 144/79 09/07/20 20:00 70 09/07/20 20:00 Mechanical Ventilator 09/07/20 20:00 98.2 78 27 144/79 (100) 98 09/07/20 20:00 84 09/07/20 19:45 76 32 98 Mechanical Ventilator 80 80 29 09/07/20 16:00 Mechanical Ventilator 09/07/20 16:00 72 09/07/20 16:00 98.8 62 28 116/69 (85) 99 09/07/20 16:00 70 09/07/20 15:30 74 28 99 Mechanical Ventilator 80 80 32 I&O Intake and Output 09/07/20 09/08/20 19:00 07:00 Intake Total 1440 ml 1050 ml Output Total 230 ml 450 ml Balance 1210 ml 600 ml Free Water 90 ml IV Total 750 ml 600 ml Tube Feeding 600 ml 200 ml Blood Product 250 ml Output Urine Total 200 ml 450 ml Stool Total 30 ml # Bowel Movements 1 100 Dressing: saturated Cardiovascular: RSR Respiratory: decreased breath sounds Abdomen: soft, non-tender, present bowel sounds, non-distended Extremities: no edema, no tenderness, no cyanosis Laboratory Tests Test 09/07/20 18:19 09/08/20 08:39 White Blood Count 17.4 K/UL (4.8-10.8) H 18.1 K/UL (4.8-10.8) H Red Blood Count 2.52 M/UL (4.70-6.10) L 3.06 M/UL (4.70-6.10) L Hemoglobin 7.5 G/DL (14.2-18.0) L 9.4 G/DL (14.2-18.0) L Hematocrit 21.9 % (42.0-52.0) L 26.3 % (42.0-52.0) L Mean Corpuscular Volume 87 FL (80-99) 86 FL (80-99) Mean Corpuscular Hemoglobin 29.9 PG (27.0-31.0) 30.7 PG (27.0-31.0) Mean Corpuscular Hemoglobin Concent 34.4 G/DL (32.0-36.0) 35.7 G/DL (32.0-36.0) Red Cell Distribution Width 14.8 % (11.6-14.8) 13.4 % (11.6-14.8) Platelet Count 91 K/UL (150-450) L 88 K/UL (150-450) L Mean Platelet Volume 11.6 FL (6.5-10.1) H 11.2 FL (6.5-10.1) H Neutrophils (%) (Auto) % (45.0-75.0) % (45.0-75.0) Lymphocytes (%) (Auto) % (20.0-45.0) % (20.0-45.0) Monocytes (%) (Auto) % (1.0-10.0) % (1.0-10.0) Eosinophils (%) (Auto) % (0.0-3.0) % (0.0-3.0) Basophils (%) (Auto) % (0.0-2.0) % (0.0-2.0) Differential Total Cells Counted 100 100 Neutrophils % (Manual) 83 % (45-75) H 92 % (45-75) H Lymphocytes % (Manual) 4 % (20-45) L 3 % (20-45) L Monocytes % (Manual) 1 % (1-10) 3 % (1-10) Eosinophils % (Manual) 0 % (0-3) 0 % (0-3) Basophils % (Manual) 0 % (0-2) 0 % (0-2) Band Neutrophils 12 % (0-8) H 2 % (0-8) Platelet Estimate Decreased L Decreased L Platelet Morphology Normal Normal Red Blood Cell Morphology Normal Prothrombin Time 10.9 SEC (9.30-11.50) Prothromb Time International Ratio 1.0 (0.9-1.1) Hypochromasia 1+ Plan Problems: (1) Pneumonia (2) Hypoxia (3) Sepsis Assessment & Plan: respiratory insufficiency prolonged ventilatory support failed weaning trials weaning vent as much as possible anticipate prolong vent support trach indicated and recommended will obtain consent plan for trach as able to wean thank you cont weaning will follow with recs s/p trach wean sedation wean vent no active bleeding noted h/h noted trend labs worsening prognosis guarded peg 09/08 cont tf (4) UTI (urinary tract infection) (5) Pneumonia (6) AMS (altered mental status) Isaias Loaiza Sep 08, 2020 12:23
--- NOTE | 2020-09-08 12:42 | 48 Hour Post Anesthesia Eval ---
Post Anesthesia Evaluation Procedure: EGD PEG tube placement Date of Evaluation: Sep 08, 2020 Time of Evaluation: 12:40 Blood Pressure Systolic: 102 0: 54 Pulse Rate: 82 Respiratory Rate: 20 Temperature (Fahrenheit): 97.6 O2 Sat by Pulse Oximetry: 98 Airway: patent Nausea: No Vomiting: No Pain Intensity: 1 Hydration Status: adequate Cardiopulmonary Status: stable Mental Status/LOC: patient returned to baseline Follow-up Care/Observations: n/a Post-Anesthesia Complications: none Follow-up care needed: N/A Ritchie Leger MD Sep 08, 2020 12:42
--- NOTE | 2020-09-08 13:00 | Procedure Note ---
DATE OF PROCEDURE: 09/07/2020 SURGEON: Thomas Dorsey MD. PROCEDURE: Upper endoscopy with PEG placement. ANESTHESIA: Per Dr. Leger. INSTRUMENT: Olympus adult flexible upper endoscope. INDICATION: Dysphagia. REASON FOR PROCEDURE: The procedure, risks, benefits, and possible consequences, including hemorrhage, aspiration, perforation and infection, and alternative treatments, were explained to the patient/legal guardian by Dr. Thomas Dorsey and the patient/legal guardian understood and accepted these risks. DESCRIPTION OF PROCEDURE: After informed consent was obtained and the patient was adequately sedated, Olympus upper endoscope was advanced from mouth into the second portion of the duodenum and retroflexion was performed in the stomach. The patient had evidence of diffuse atrophic gastritis. No evidence of any active upper GI bleeding. Then under endoscopic guidance under sterile condition, a 20-Ethiopian pull type of G-tube was successfully placed in epigastric area. The distance from the tip of the tube to skin was about 2.5 cm in size. The patient tolerated the procedure very well without any complication. SUMMARY OF FINDINGS: Status post successful PEG placement. RECOMMENDATIONS: 1. Abdominal binder. 2. Elevate the head of the bed. 3. G-tube flush. 4. G-tube care. 5. Start tube feeding later today. 6. The patient currently on antibiotics. Thomas Dorsey M.D. DR: PAULY JOB#: [id number] CC:
[2020-09-08] MEDS: D5 1/2NS 1,000 ML IV SCH (14:08)
[2020-09-08] MEDS ORDERED: NS 275ml ONE ×3 (14:09→16:34)
[2020-09-08] MEDS ORDERED: Tubing Blood Filter IV ONE (14:09)
[2020-09-08] MEDS ORDERED: Tubing IV Secondary IV ONE (14:19)
[2020-09-08 16:00] VITALS: BP 122/65
--- NOTE | 2020-09-08 19:10 | NUR ---
NURSE NOTES: Received patient from Rachael ARGUELLES. patient is status post PEG placement. site is dry and intact. obtunded, opens eyes, no tracking. sinus rhythm on the monitor. trach to vent at prescribed settings, tolerating well. rectal tube and springer draining well to gravity. bed to lowest position and locked, call light within easy reach. Will continue plan of care.
--- NOTE | 2020-09-08 19:36 | NUR ---
NURSE HAND-OFF REPORT: S/P PEG placement. Remain stable. Important Events on Shift: Tolerated EGD procedure. Patient Status: stable Diet: Glucerna goal 50cc/hr. Started at 10cc/hr. Pending Orders: n Pending Results/Labs:n Pending MD notification:n Latest Vital Signs: Temperature 97.7 , Pulse 77 , B/P 122 /65 , Respiratory Rate 29 , O2 SAT 100 , Mechanical Ventilator, O2 Flow Rate 70.0 . Vital Sign Comment: wnl EKG Rhythm: Sinus Rhythm Rhythm change?: N Notified?: N -Dr. Virgil KURTZ Response: Message left await call Latest José Fall Score: 85 Fall Risk: High Risk Safety Measures: Call light Within Reach, Bed Alarm Zone 1, Side Rails Side Rails x3, Bed position Low and Locked. Fall Precautions: Yellow Socks Yellow Gown Door Sign Patient Fall Education Report given to Lawrence ARGUELLES.
--- NOTE | 2020-09-08 19:44 | Pulmonology Progress Note ---
Subjective ROS Limited/Unobtainable: Yes Constitutional: Denies: fever Gastrointestinal/Abdominal: Reports: other - will have NG tube placement today Allergies: Coded Allergies: VANCOMYCIN (Verified Allergy, Severe, hive, 08/27/20) All Systems: reviewed and negative except above Objective Last 24 Hour Vital Signs Date Time Temp Pulse Resp B/P (MAP) Pulse Ox O2 Delivery O2 Flow Rate FiO2 09/08/20 19:24 77 29 100 Mechanical Ventilator 80 84 34 80 09/08/20 16:00 70 09/08/20 16:00 97.7 91 26 122/65 (84) 100 09/08/20 16:00 Mechanical Ventilator 09/08/20 15:55 88 28 100 Mechanical Ventilator 80 78 28 80 09/08/20 15:47 78 09/08/20 12:42 82 20 98 09/08/20 12:00 97.3 64 26 95/90 (92) 100 09/08/20 12:00 70 09/08/20 12:00 Mechanical Ventilator 09/08/20 11:49 54 28 100 Mechanical Ventilator 80 55 28 80 09/08/20 11:38 55 09/08/20 11:33 78 20 98 09/08/20 08:04 63 28 100 Mechanical Ventilator 80 70 28 80 09/08/20 08:00 97.7 69 26 110/63 (79) 100 09/08/20 08:00 Mechanical Ventilator 09/08/20 08:00 70 09/08/20 07:46 58 09/08/20 04:00 Mechanical Ventilator 09/08/20 04:00 80 09/08/20 04:00 97.9 71 25 131/74 (93) 97 09/08/20 04:00 70 09/08/20 02:14 74 29 100 Mechanical Ventilator 80 77 28 80 09/08/20 00:00 97.9 64 28 102/76 (85) 97 09/08/20 00:00 70 09/08/20 00:00 Mechanical Ventilator 09/08/20 00:00 58 09/07/20 23:09 69 28 99 Mechanical Ventilator 80 80 28 09/07/20 20:42 79 144/79 09/07/20 20:00 70 09/07/20 20:00 Mechanical Ventilator 09/07/20 20:00 98.2 78 27 144/79 (100) 98 09/07/20 20:00 84 12/21/20 19:45 76 32 98 Mechanical Ventilator 80 80 29 Intake and Output 09/07/20 09/08/20 19:00 07:00 Intake Total 1440 ml 1050 ml Output Total 230 ml 450 ml Balance 1210 ml 600 ml Free Water 90 ml IV Total 750 ml 600 ml Tube Feeding 600 ml 200 ml Blood Product 250 ml Output Urine Total 200 ml 450 ml Stool Total 30 ml # Bowel Movements 1 100 Microbiology Date/Time Source Procedure Growth Status 09/08/20 01:30 Nasopharynx SARS-CoV-2 RdRp Gene Assay - Final Complete 09/07/20 13:34 Stool Clostridium difficile Toxin Assay - Final Complete Laboratory Tests 09/08/20 08:39: White Blood Count 18.1H, Red Blood Count 3.06L, Hemoglobin 9.4L, Hematocrit 26.3L, Mean Corpuscular Volume 86, Mean Corpuscular Hemoglobin 30.7, Mean Corpuscular Hemoglobin Concent 35.7, Red Cell Distribution Width 13.4, Platelet Count 88L, Mean Platelet Volume 11.2H, Neutrophils (%) (Auto) , Lymphocytes (%) (Auto) , Monocytes (%) (Auto) , Eosinophils (%) (Auto) , Basophils (%) (Auto) , Differential Total Cells Counted 100, Neutrophils % (Manual) 92H, Lymphocytes % (Manual) 3L, Monocytes % (Manual) 3, Eosinophils % (Manual) 0, Basophils % (Manual) 0, Band Neutrophils 2, Platelet Estimate DecreasedL, Platelet Morphology Normal, Hypochromasia 1+ Current Medications Medications (Trade) Dose Ordered Sig/Javon Route PRN Reason Start Time Stop Time Status Last Admin Dose Admin Albuterol/ Ipratropium (Albuterol/ Ipratropium) 3 ml Q4HRT HHN 09/07/20 11:00 09/12/20 10:59 09/08/20 19:14 Amiodarone HCl (Cordarone) 200 mg DAILY NG 09/04/20 09:00 11/15/20 08:59 09/07/20 08:51 Dextrose/Sodium Chloride 1,000 ml @ 75 mls/hr [id number] IV 09/07/20 23:59 10/07/20 23:58 09/08/20 14:08 Fluconazole (Diflucan) 100 mg DAILY NG 09/03/20 09:00 09/10/20 08:59 09/07/20 08:51 Heparin Sodium (Porcine) (Heparin 5000 units/ml) 5,000 units EVERY 12 HOURS SUBQ 08/03/20 09:00 09/17/20 08:59 09/07/20 08:54 Hydralazine HCl (Apresoline) 25 mg Q6H PRN NG SBP above 160 08/11/20 22:30 11/05/20 00:29 08/12/20 15:09 Lansoprazole (Prevacid) 30 mg DAILY NG 08/30/20 09:00 09/29/20 08:59 09/07/20 08:52 Magnesium Hydroxide (Mom) 30 ml DAILYPRN PRN GT Constipation 08/12/20 09:00 09/11/20 08:59 Metoclopramide HCl (Reglan) 5 mg Q8H PRN IVP Nausea & Vomiting 08/15/20 13:00 09/14/20 12:59 Metoprolol Tartrate (Lopressor) 25 mg Q12HR NG 08/13/20 09:00 11/11/20 08:59 09/07/20 20:42 Assessment/Plan Assessment/Plan Pulmonary Progress Note Subjective ROS Limited/Unobtainable: Yes Constitutional: Denies: fever Allergies: Coded Allergies: No Known Allergies (Unverified , 08/02/20) All Systems: reviewed and negative except above Subjective care noted on BIPAP, elevatedCO2,high FIO2 diffuse infiltrates Objective Vital Signs noted Objective WDWN NAD reduced breath sounds bilaterally with scattered rhonchi [id number] NABS nontender no CCE nonfocal on BIPAP poorly responsive Laboratory Tests noted Medications noted Assessment/Plan Assessment/Plan ASSESSMENT: chronic encephalopathy, dementia, diffuse infiltrates, elevated BNP hypertension, recurrent falls, and urinary tract infection, hypoxemia, probable aspiration pneumonia. PLAN care noted respiratory care as is oxygen and BIPAP PRN previously d/w family as to poor prognosis and consider terminal care on high oxygen needs repeat CXR and ABG noted palliative care recommended doubt any chance of recovery impression, plan, and exam edited and reviewed in detail care discussed with Sarkis Samano MD Sep 08, 2020 19:44
[2020-09-08 20:00] VITALS: BP 109/60
--- NOTE | 2020-09-08 22:05 | NUR ---
NURSE NOTES: oral care performed.
[2020-09-09] VITALS: BP 115/65
--- NOTE | 2020-09-09 01:05 | Cardiology Progress Note ---
Subjective DATE OF SERVICE: Sep 08, 2020 S/P PEG placement today. Remains on vent via trach; O2 requirements remain high. No respiratory distress BP readings stable Monitor: sinus rhythm with no episodes of bradycardia today. Na levels and renal parameters normalized ABG (09/05) 7.30/56/95 S/P 1 unit PRBC's yesterday for low hb. Objective Last 24 Hour Vital Signs Date Time Temp Pulse Resp B/P (MAP) Pulse Ox O2 Delivery O2 Flow Rate FiO2 09/09/20 00:00 98.4 68 28 115/65 (82) 100 09/09/20 00:00 Mechanical Ventilator 09/08/20 23:07 68 28 100 Mechanical Ventilator 80 76 30 80 09/08/20 20:00 Mechanical Ventilator 09/08/20 20:00 98.6 71 28 109/60 (76) 100 09/08/20 20:00 70 09/08/20 19:50 72 09/08/20 19:24 77 29 100 Mechanical Ventilator 80 84 34 80 09/08/20 16:00 70 09/08/20 16:00 97.7 91 26 122/65 (84) 100 09/08/20 16:00 Mechanical Ventilator 09/08/20 15:55 88 28 100 Mechanical Ventilator 80 78 28 80 09/08/20 15:47 78 09/08/20 12:42 82 20 98 09/08/20 12:00 97.3 64 26 95/90 (92) 100 09/08/20 12:00 70 09/08/20 12:00 Mechanical Ventilator 09/08/20 11:49 54 28 100 Mechanical Ventilator 80 55 28 80 09/08/20 11:38 55 09/08/20 11:33 78 20 98 09/08/20 08:04 63 28 100 Mechanical Ventilator 80 70 28 80 09/08/20 08:00 97.7 69 26 110/63 (79) 100 09/08/20 08:00 Mechanical Ventilator 09/08/20 08:00 70 09/08/20 07:46 58 09/08/20 04:00 Mechanical Ventilator 09/08/20 04:00 80 09/08/20 04:00 97.9 71 25 131/74 (93) 97 09/08/20 04:00 70 09/08/20 02:14 74 29 100 Mechanical Ventilator 80 77 28 80 ROS: unchanged from my evaluation of 08/02/20 HEENT: Mechanically Ventilated, Thin Trach secretions RHYTHM: NSR, PACs, Afib LUNGS: bilateral rhonchi, trach site clean CARDIAC: normal S1 and S2, irregularly irregular, systolic murmur - 1/6 systolic murmurat apex, rapid rate ABDOMEN: normal bowel sounds, non tender, soft, no organomegaly, G-Tube intact EXTREMITIES: normal range of motion, trace edema Laboratory Tests Test 09/08/20 08:39 White Blood Count 18.1 K/UL (4.8-10.8) H Red Blood Count 3.06 M/UL (4.70-6.10) L Hemoglobin 9.4 G/DL (14.2-18.0) L Hematocrit 26.3 % (42.0-52.0) L Mean Corpuscular Volume 86 FL (80-99) Mean Corpuscular Hemoglobin 30.7 PG (27.0-31.0) Mean Corpuscular Hemoglobin Concent 35.7 G/DL (32.0-36.0) Red Cell Distribution Width 13.4 % (11.6-14.8) Platelet Count 88 K/UL (150-450) L Mean Platelet Volume 11.2 FL (6.5-10.1) H Neutrophils (%) (Auto) % (45.0-75.0) Lymphocytes (%) (Auto) % (20.0-45.0) Monocytes (%) (Auto) % (1.0-10.0) Eosinophils (%) (Auto) % (0.0-3.0) Basophils (%) (Auto) % (0.0-2.0) Differential Total Cells Counted 100 Neutrophils % (Manual) 92 % (45-75) H Lymphocytes % (Manual) 3 % (20-45) L Monocytes % (Manual) 3 % (1-10) Eosinophils % (Manual) 0 % (0-3) Basophils % (Manual) 0 % (0-2) Band Neutrophils 2 % (0-8) Platelet Estimate Decreased L Platelet Morphology Normal Hypochromasia 1+ Microbiology Date/Time Source Procedure Growth Status 09/08/20 01:30 Nasopharynx SARS-CoV-2 RdRp Gene Assay - Final Complete 09/07/20 13:34 Stool Clostridium difficile Toxin Assay - Final Complete Assessment/Plan Assessment/Plan Status post uncomplicated PEG Paroxysmal atrial fibrillation with RVR Acute myocardial ischemia with elevated troponin Aspiration risk Sepsis Healthcare acquired PNA Complicated UTI with indwelling catheter Hyponatremia Severe protein calorie malnutrition Acute myocardial ischemia Respiratory failure with hypoxia and hypercarbia - now on mech ventilation Hypokalemia Leukocytosis improving Ac/chronic diastolic CHF Dehydration/hypernatremia resolved into hyponatremia Hypokalemia Acute renal failure Occluded left cephalic vein Metabolic acidosis Anemia, multifactorial Trach care Antimicrobials per ID Vent support with setting sdjusted. Taper O2 as able. GTube feedings per GI DVT prophylaxis Continue amiodarone - maintenance dose; titrate beta katya. Replace lytes/Mg++ as needed. Titrate anti-HTN regimen as needed. PRBC tx as needed. Sarkis Herman MD Sep 09, 2020 01:05
[2020-09-09] MEDS: D5 1/2NS 1,000 ML IV SCH (01:53)
[2020-09-09] MEDS: Albuterol/Ipratropium 3ml neb HHN SCH ×4 (03:27→23:33)
--- NOTE | 2020-09-09 03:30 | NUR ---
NURSE NOTES: bed bath performed. vital signs stable
[2020-09-09 04:00] VITALS: BP 120/70
--- NOTE | 2020-09-09 06:59 | General Progress Note ---
Subjective ROS Limited/Unobtainable: No Allergies: Coded Allergies: VANCOMYCIN (Verified Allergy, Severe, hive, 08/27/20) Objective Last 24 Hour Vital Signs Date Time Temp Pulse Resp B/P (MAP) Pulse Ox O2 Delivery O2 Flow Rate FiO2 09/09/20 04:00 66 09/09/20 04:00 Mechanical Ventilator 09/09/20 04:00 97.7 68 28 120/70 (87) 100 09/09/20 04:00 80 09/09/20 03:28 67 28 100 Mechanical Ventilator 80 70 28 80 09/09/20 00:00 70 09/09/20 00:00 98.4 68 28 115/65 (82) 100 09/09/20 00:00 Mechanical Ventilator 09/08/20 23:07 68 28 100 Mechanical Ventilator 80 76 30 80 09/08/20 20:00 Mechanical Ventilator 09/08/20 20:00 98.6 71 28 109/60 (76) 100 09/08/20 20:00 80 09/08/20 19:50 72 09/08/20 19:24 77 29 100 Mechanical Ventilator 80 84 34 80 09/08/20 16:00 70 09/08/20 16:00 97.7 91 26 122/65 (84) 100 09/08/20 16:00 Mechanical Ventilator 09/08/20 15:55 88 28 100 Mechanical Ventilator 80 78 28 80 09/08/20 15:47 78 09/08/20 12:42 82 20 98 09/08/20 12:00 97.3 64 26 95/90 (92) 100 09/08/20 12:00 70 09/08/20 12:00 Mechanical Ventilator 09/08/20 11:49 54 28 100 Mechanical Ventilator 80 55 28 80 09/08/20 11:38 55 09/08/20 11:33 78 20 98 09/08/20 08:04 63 28 100 Mechanical Ventilator 80 70 28 80 09/08/20 08:00 97.7 69 26 110/63 (79) 100 09/08/20 08:00 Mechanical Ventilator 09/08/20 08:00 70 09/08/20 07:46 58 Intake and Output 09/08/20 09/09/20 19:00 07:00 Intake Total 75 ml 640 ml Output Total 600 ml 380 ml Balance -525 ml 260 ml IV Total 75 ml 600 ml Tube Feeding 40 ml Output Urine Total 400 ml 350 ml Stool Total 200 ml 30 ml Laboratory Tests 09/08/20 08:39: White Blood Count 18.1H, Red Blood Count 3.06L, Hemoglobin 9.4L, Hematocrit 26.3L, Mean Corpuscular Volume 86, Mean Corpuscular Hemoglobin 30.7, Mean Corpuscular Hemoglobin Concent 35.7, Red Cell Distribution Width 13.4, Platelet Count 88L, Mean Platelet Volume 11.2H, Neutrophils (%) (Auto) , Lymphocytes (%) (Auto) , Monocytes (%) (Auto) , Eosinophils (%) (Auto) , Basophils (%) (Auto) , Differential Total Cells Counted 100, Neutrophils % (Manual) 92H, Lymphocytes % (Manual) 3L, Monocytes % (Manual) 3, Eosinophils % (Manual) 0, Basophils % (Manual) 0, Band Neutrophils 2, Platelet Estimate DecreasedL, Platelet Morp hology Normal, Hypochromasia 1+ Height (Feet): 5 Height (Inches): 4.00 Weight (Pounds): 147 General Appearance: no apparent distress EENT: normal ENT inspection Neck: supple Cardiovascular: normal rate Respiratory/Chest: decreased breath sounds Abdomen: normal bowel sounds, non tender, soft Extremities: non-tender Assessment/Plan Status: stable, not improved Assessment/Plan: Assessment/Plan Status: stable, not improved Assessment/Plan: Assessment - Leukocytosis - better - respiratory failure, s/p Trach - Parox a fib - acute myocardial ischemia - PNA/sepsis - dysphagia - elevated glucose - poor prognosis Recommendations - glucerna TF - Increase rate to meet demands - s/p PEG -monitor for residuals - ID follow up - Pulmonary toilet Thomas Dorsey MD Sep 09, 2020 06:58
--- NOTE | 2020-09-09 07:00 | NUR ---
NURSE HAND-OFF REPORT: Important Events on Shift: tube feeding started at 10ml/hr Patient Status: FULL CODE Diet: glucerna 1.5 @50ml/hr goal. currently 10ml/hr Pending Orders: [] Pending Results/Labs:[] Pending MD notification:[] Latest Vital Signs: Temperature 97.7 , Pulse 78 , B/P 120 /70 , Respiratory Rate 28 , O2 SAT 100 , Mechanical Ventilator, O2 Flow Rate 70.0 . Vital Sign Comment: stable EKG Rhythm: Sinus Rhythm Rhythm change?: N Notified?: N -Dr. Virgil KURTZ Response: Message left await call Latest José Fall Score: 85 Fall Risk: High Risk Safety Measures: Call light Within Reach, Bed Alarm Zone 1, Side Rails Side Rails x3, Bed position Low and Locked. Fall Precautions: Yellow Socks Yellow Gown Door Sign Patient Fall Education Report given to BLANE Starks.
--- NOTE | 2020-09-09 07:10 | NUR ---
NURSE NOTES: Report received from Stanislav ARUGELLES.Pt obtunded,noted no resp distress qwith trach tube to vent ,ordered vent settings tolerated,no signs of pain or discomfort,S-R on the monitor,GTF Osmolite 1.5 at 10 ml/hr,pt S/P Peg insertion yesterday,abdominal binder in placed,[place] cath draining yellow urine,,skin with gen edema,with water seeping from the skin,IV site to RH intact with IVF D5 1/2 NS at 75 ml/hr,SR up x2 HOB elevated bed lock in lowest position,will continue with plans of care.
[2020-09-09 08:00] VITALS: BP 159/79
[2020-09-09] MEDS: Amiodarone 200mg tab NG SCH (08:44)
[2020-09-09] MEDS: Fluconazole 100mg tab NG SCH (08:45)
[2020-09-09] MEDS: Heparin 5000 units/ml inj SUBQ SCH ×2 (08:49→21:50)
--- NOTE | 2020-09-09 10:15 | NUR ---
NURSE NOTES: Received pt from GretchenRN Pt. in bed w/no sign of distress. Pt is obtunded. Trach to [facility] vent w/setting of AC 28, TV 550, Fi O2 at 80%, P10. Respiration even and unlabored. IV right hand #20g. intact. SR on awake overnight monitor. Bed in low position, locked. Bed alarm engaged. Call light within reach. Will continue POC.
--- NOTE | 2020-09-09 11:49 | Infectious Diseases Prog Note ---
Assessment/Plan Assessment/Plan antibiotics : fluconazole A 1. Right-sided pneumonia 2. COVID-19 test is negative. 3. fungal Urinary tract infection s/p rx 4. Hypertension. 5. Dementia. 6. Respiratory failure s/p tracheostomy 7. leucocytosis 8. renal failure P 1. d/c fluconazole 2. observe off antibiotics Subjective ROS Limited/Unobtainable: Yes Allergies: Coded Allergies: VANCOMYCIN (Verified Allergy, Severe, hive, 08/27/20) Objective Last 24 Hour Vital Signs Date Time Temp Pulse Resp B/P (MAP) Pulse Ox O2 Delivery O2 Flow Rate FiO2 09/09/20 08:48 85 159/79 09/09/20 08:00 Mechanical Ventilator 09/09/20 08:00 70 09/09/20 08:00 97.3 85 20 159/79 (105) 100 09/09/20 08:00 80 09/09/20 07:22 78 28 100 Mechanical Ventilator 80 78 28 80 09/09/20 04:00 66 09/09/20 04:00 Mechanical Ventilator 09/09/20 04:00 97.7 68 28 120/70 (87) 100 09/09/20 04:00 80 09/09/20 03:28 67 28 100 Mechanical Ventilator 80 70 28 80 09/09/20 00:00 70 09/09/20 00:00 98.4 68 28 115/65 (82) 100 09/09/20 00:00 Mechanical Ventilator 09/08/20 23:07 68 28 100 Mechanical Ventilator 80 76 30 80 09/08/20 20:00 Mechanical Ventilator 09/08/20 20:00 98.6 71 28 109/60 (76) 100 09/08/20 20:00 80 09/08/20 19:50 72 09/08/20 19:24 77 29 100 Mechanical Ventilator 80 84 34 80 09/08/20 16:00 70 09/08/20 16:00 97.7 91 26 122/65 (84) 100 09/08/20 16:00 Mechanical Ventilator 09/08/20 15:55 88 28 100 Mechanical Ventilator 80 78 28 80 09/08/20 15:47 78 09/08/20 12:42 82 20 98 09/08/20 12:00 97.3 64 26 95/90 (92) 100 09/08/20 12:00 70 09/08/20 12:00 Mechanical Ventilator 09/08/20 11:49 54 28 100 Mechanical Ventilator 80 55 28 80 Height (Feet): 5 Height (Inches): 4.00 Weight (Pounds): 147 HEENT: status post trach Respiratory/Chest: lungs clear Cardiovascular: normal rate, regular rhythm, no gallop/murmur Abdomen: soft, non tender, other - GT Extremities: other - + edema Microbiology Date/Time Source Procedure Growth Status 09/08/20 01:30 Nasopharynx SARS-CoV-2 RdRp Gene Assay - Final Complete 09/07/20 13:34 Stool Clostridium difficile Toxin Assay - Final Complete Current Medications Medications (Trade) Dose Ordered Sig/Javon Route PRN Reason Start Time Stop Time Status Last Admin Dose Admin Albuterol/ Ipratropium (Albuterol/ Ipratropium) 3 ml Q4HRT HHN 09/07/20 11:00 09/12/20 10:59 09/09/20 07:21 Amiodarone HCl (Cordarone) 200 mg DAILY NG 09/04/20 09:00 11/15/20 08:59 09/09/20 08:44 Fluconazole (Diflucan) 100 mg DAILY NG 09/03/20 09:00 09/10/20 08:59 09/09/20 08:45 Heparin Sodium (Porcine) (Heparin 5000 units/ml) 5,000 units EVERY 12 HOURS SUBQ 08/03/20 09:00 09/17/20 08:59 09/07/20 08:54 Hydralazine HCl (Apresoline) 25 mg Q6H PRN NG SBP above 160 08/11/20 22:30 11/05/20 00:29 08/12/20 15:09 Lansoprazole (Prevacid) 30 mg DAILY NG 08/30/20 09:00 09/29/20 08:59 09/09/20 08:44 Magnesium Hydroxide (Mom) 30 ml DAILYPRN PRN GT Constipation 08/12/20 09:00 09/11/20 08:59 Metoclopramide HCl (Reglan) 5 mg Q8H PRN IVP Nausea & Vomiting 08/15/20 13:00 09/14/20 12:59 Metoprolol Tartrate (Lopressor) 25 mg Q12HR NG 08/13/20 09:00 11/11/20 08:59 09/09/20 08:48 Wagner Christensen MD Sep 09, 2020 11:49
[2020-09-09 12:00] VITALS: BP 130/86
--- NOTE | 2020-09-09 12:00 | NUR ---
NURSE NOTES: Pt stable,oral care done,no resp distress presented,tracheal secretions suctioned PRN.
--- NOTE | 2020-09-09 15:17 | NUR ---
CASE MANAGEMENT:REVIEW 09/09/20 SI:ACUTE RESPIRATORY FAILURE S/P NEW TRACH PLACEMENT AND PEG 97.3 64 20 130/86 100% ON VENT SUPPORT W/80% FIO2 IS: DUONEB HHN Q4HRS RTC AMIODARONE GT QD LOPRESSOR GT Q12 : STEP DOWN UNIT PLAN: DISCHARGE WHEN FIO2 REQUIREMENTS ARE 40% OR LESS
[2020-09-09 16:00] VITALS: BP 143/63
--- NOTE | 2020-09-09 16:00 | NUR ---
NURSE NOTES: Pt pulled up and repositioned,kept dry and clean.
--- NOTE | 2020-09-09 16:53 | General Progress Note ---
Subjective ROS Limited/Unobtainable: No Constitutional: Reports: malaise, weakness HEENT: Reports: no symptoms Cardiovascular: Reports: no symptoms Respiratory: Reports: shortness of breath, sputum Gastrointestinal/Abdominal: Reports: difficulty swallowing Genitourinary: Reports: no symptoms Neurologic/Psychiatric: Reports: pre-existing deficit Endocrine: Reports: no symptoms Hematologic/Lymphatic: Reports: anemia Allergies: Coded Allergies: VANCOMYCIN (Verified Allergy, Severe, hive, 08/27/20) All Systems: reviewed and negative except above Subjective no change. vent dependent. increase fio2 requirements- on 80%. no fevers or chills. labs reviewed. cxr unchanged. renal fxn trending up. awake. does not follow commands. off abx Objective Last 24 Hour Vital Signs Date Time Temp Pulse Resp B/P (MAP) Pulse Ox O2 Delivery O2 Flow Rate FiO2 09/09/20 16:00 Mechanical Ventilator 09/09/20 16:00 80 09/09/20 15:35 66 28 100 Mechanical Ventilator 80 70 28 80 09/09/20 12:13 59 28 80 09/09/20 12:00 65 09/09/20 12:00 Mechanical Ventilator 09/09/20 12:00 80 09/09/20 12:00 97.3 64 20 130/86 (101) 100 09/09/20 08:48 85 159/79 09/09/20 08:00 Mechanical Ventilator 09/09/20 08:00 70 09/09/20 08:00 97.3 85 20 159/79 (105) 100 09/09/20 08:00 80 09/09/20 07:22 78 28 100 Mechanical Ventilator 80 78 28 80 09/09/20 04:00 66 09/09/20 04:00 Mechanical Ventilator 09/09/20 04:00 97.7 68 28 120/70 (87) 100 09/09/20 04:00 80 09/09/20 03:28 67 28 100 Mechanical Ventilator 80 70 28 80 09/09/20 00:00 70 09/09/20 00:00 98.4 68 28 115/65 (82) 100 09/09/20 00:00 Mechanical Ventilator 09/08/20 23:07 68 28 100 Mechanical Ventilator 80 76 30 80 09/08/20 20:00 Mechanical Ventilator 09/08/20 20:00 98.6 71 28 109/60 (76) 100 09/08/20 20:00 80 09/08/20 19:50 72 09/08/20 19:24 77 29 100 Mechanical Ventilator 80 84 34 80 Intake and Output 09/08/20 09/09/20 19:00 07:00 Intake Total 75 ml 640 ml Output Total 600 ml 380 ml Balance -525 ml 260 ml IV Total 75 ml 600 ml Tube Feeding 40 ml Output Urine Total 400 ml 350 ml Stool Total 200 ml 30 ml Height (Feet): 5 Height (Inches): 4.00 Weight (Pounds): 147 Objective General Appearance: WD/WN, confused, thin. on the vent EENT: normal ENT inspection Neck: non-tender, normal alignment, supple. trach midline Cardiovascular: normal rate, regular rhythm Respiratory/Chest: chest wall non-tender, lungs clear, normal breath sounds, no respiratory distress, no accessory muscle use Abdomen: normal bowel sounds, non tender, soft, no organomegaly Edema: no edema noted Arm (L), no edema noted Arm (R) Assessment/Plan Problem List: (1) Pneumonia ICD Codes: J18.9 - Pneumonia, unspecified organism SNOMED: 378577042 (2) Hypoxia ICD Codes: R09.02 - Hypoxemia SNOMED: 645388545 (3) AMS (altered mental status) ICD Codes: R41.82 - Altered mental status, unspecified SNOMED: 250627280 (4) UTI (urinary tract infection) ICD Codes: N39.0 - Urinary tract infection, site not specified SNOMED: 74610662 (5) Sepsis ICD Codes: A41.9 - Sepsis, unspecified organism SNOMED: 67579378 Status: stable, not improved Assessment/Plan: vent support trach care stable for gt abx per ID suctioning gentle hydration monitor labs/lytes replace as needes dvt/stress ulcer prophylaxis turn q2 poor prognosis Chavez Gilmore MD Sep 09, 2020 16:53
--- NOTE | 2020-09-09 17:44 | Surgery Progress Note ---
Surgery Progress Note Subjective Procedure Performed trach Additional Comments s/p peg leukocytosis no n/v ill appearing Objective Last 24 Hour Vital Signs Date Time Temp Pulse Resp B/P (MAP) Pulse Ox O2 Delivery O2 Flow Rate FiO2 09/09/20 16:00 Mechanical Ventilator 09/09/20 16:00 80 09/09/20 15:35 66 28 100 Mechanical Ventilator 80 70 28 80 09/09/20 12:13 59 28 80 09/09/20 12:00 65 09/09/20 12:00 Mechanical Ventilator 09/09/20 12:00 80 09/09/20 12:00 97.3 64 20 130/86 (101) 100 09/09/20 08:48 85 159/79 09/09/20 08:00 Mechanical Ventilator 09/09/20 08:00 70 09/09/20 08:00 97.3 85 20 159/79 (105) 100 09/09/20 08:00 80 09/09/20 07:22 78 28 100 Mechanical Ventilator 80 78 28 80 09/09/20 04:00 66 09/09/20 04:00 Mechanical Ventilator 09/09/20 04:00 97.7 68 28 120/70 (87) 100 09/09/20 04:00 80 09/09/20 03:28 67 28 100 Mechanical Ventilator 80 70 28 80 09/09/20 00:00 70 09/09/20 00:00 98.4 68 28 115/65 (82) 100 09/09/20 00:00 Mechanical Ventilator 09/08/20 23:07 68 28 100 Mechanical Ventilator 80 76 30 80 09/08/20 20:00 Mechanical Ventilator 09/08/20 20:00 98.6 71 28 109/60 (76) 100 09/08/20 20:00 80 09/08/20 19:50 72 09/08/20 19:24 77 29 100 Mechanical Ventilator 80 84 34 80 I&O Intake and Output 09/08/20 09/09/20 19:00 07:00 Intake Total 75 ml 640 ml Output Total 600 ml 380 ml Balance -525 ml 260 ml IV Total 75 ml 600 ml Tube Feeding 40 ml Output Urine Total 400 ml 350 ml Stool Total 200 ml 30 ml Dressing: saturated Cardiovascular: RSR Respiratory: decreased breath sounds Abdomen: non-tender, present bowel sounds, other, non-distended Extremities: no edema, no tenderness, no cyanosis Plan Problems: (1) Pneumonia (2) Hypoxia (3) Sepsis Assessment & Plan: respiratory insufficiency prolonged ventilatory support failed weaning trials weaning vent as much as possible anticipate prolong vent support trach indicated and recommended will obtain consent plan for trach as able to wean thank you cont weaning will follow with recs s/p trach wean sedation wean vent no active bleeding noted h/h noted trend labs worsening prognosis guarded peg 09/08 cont tf (4) UTI (urinary tract infection) (5) Pneumonia (6) AMS (altered mental status) Isaias Loaiza Sep 09, 2020 17:44
--- NOTE | 2020-09-09 19:25 | NUR ---
HAND-OFF: Report given to Jose Rafael Madrigal RN..
--- NOTE | 2020-09-09 19:25 | NUR ---
NURSE HAND-OFF REPORT: Important Events on Shift:N/A Patient Status: stable Diet: Osmolite 1.5 at 30 ml/hr Pending Orders: N/A Pending Results/Labs:N/A Pending MD notification:N/A Latest Vital Signs: Temperature 97.5 , Pulse 66 , B/P 143 /63 , Respiratory Rate 28 , O2 SAT 100 , Mechanical Ventilator, O2 Flow Rate 70.0 . Vital Sign Comment: stable EKG Rhythm: Sinus Rhythm Rhythm change?: N MD Notified?: N -Dr. Virgil KURTZ Response: Message left await call Latest José Fall Score: 85 Fall Risk: High Risk Safety Measures: Call light Within Reach, Bed Alarm Zone 1, Side Rails Side Rails x3, Bed position Low and Locked. Fall Precautions: Yellow Socks Yellow Gown Door Sign Patient Fall Education Report given tostable.
[2020-09-09 20:00] VITALS: BP 142/70
--- NOTE | 2020-09-09 21:14 | Pulmonology Progress Note ---
Subjective ROS Limited/Unobtainable: Yes Constitutional: Denies: fever Gastrointestinal/Abdominal: Reports: other - will have NG tube placement today Allergies: Coded Allergies: VANCOMYCIN (Verified Allergy, Severe, hive, 08/27/20) All Systems: reviewed and negative except above Objective Last 24 Hour Vital Signs Date Time Temp Pulse Resp B/P (MAP) Pulse Ox O2 Delivery O2 Flow Rate FiO2 09/09/20 20:15 80 09/09/20 20:00 96.6 66 28 142/70 (94) 100 09/09/20 20:00 66 09/09/20 20:00 Mechanical Ventilator 09/09/20 19:30 69 28 100 Mechanical Ventilator 80 68 28 80 09/09/20 16:00 65 09/09/20 16:00 97.5 69 20 143/63 (89) 100 09/09/20 16:00 Mechanical Ventilator 09/09/20 16:00 80 09/09/20 15:35 66 28 100 Mechanical Ventilator 80 70 28 80 09/09/20 12:13 59 28 80 09/09/20 12:00 65 09/09/20 12:00 Mechanical Ventilator 09/09/20 12:00 80 09/09/20 12:00 97.3 64 20 130/86 (101) 100 09/09/20 08:48 85 159/79 09/09/20 08:00 Mechanical Ventilator 09/09/20 08:00 70 09/09/20 08:00 97.3 85 20 159/79 (105) 100 09/09/20 08:00 80 09/09/20 07:22 78 28 100 Mechanical Ventilator 80 78 28 80 09/09/20 04:00 66 09/09/20 04:00 Mechanical Ventilator 09/09/20 04:00 97.7 68 28 120/70 (87) 100 09/09/20 04:00 80 09/09/20 03:28 67 28 100 Mechanical Ventilator 80 70 28 80 09/09/20 00:00 70 09/09/20 00:00 98.4 68 28 115/65 (82) 100 09/09/20 00:00 Mechanical Ventilator 09/08/20 23:07 68 28 100 Mechanical Ventilator 80 76 30 80 Intake and Output 09/08/20 09/09/20 19:00 07:00 Intake Total 75 ml 650 ml Output Total 600 ml 380 ml Balance -525 ml 270 ml IV Total 75 ml 600 ml Tube Feeding 50 ml Output Urine Total 400 ml 350 ml Stool Total 200 ml 30 ml Microbiology Date/Time Source Procedure Growth Status 09/08/20 01:30 Nasopharynx SARS-CoV-2 RdRp Gene Assay - Final Complete 09/07/20 13:34 Stool Clostridium difficile Toxin Assay - Final Complete Current Medications Medications (Trade) Dose Ordered Sig/Javon Route PRN Reason Start Time Stop Time Status Last Admin Dose Admin Albuterol/ Ipratropium (Albuterol/ Ipratropium) 3 ml Q4HRT HHN 09/07/20 11:00 09/12/20 10:59 09/09/20 19:29 Amiodarone HCl (Cordarone) 200 mg DAILY NG 09/04/20 09:00 11/15/20 08:59 09/09/20 08:44 Heparin Sodium (Porcine) (Heparin 5000 units/ml) 5,000 units EVERY 12 HOURS SUBQ 08/03/20 09:00 09/17/20 08:59 09/07/20 08:54 Hydralazine HCl (Apresoline) 25 mg Q6H PRN NG SBP above 160 08/11/20 22:30 11/05/20 00:29 08/12/20 15:09 Lansoprazole (Prevacid) 30 mg DAILY NG 08/30/20 09:00 09/29/20 08:59 09/09/20 08:44 Magnesium Hydroxide (Mom) 30 ml DAILYPRN PRN GT Constipation 08/12/20 09:00 09/11/20 08:59 Metoclopramide HCl (Reglan) 5 mg Q8H PRN IVP Nausea & Vomiting 08/15/20 13:00 09/14/20 12:59 Metoprolol Tartrate (Lopressor) 25 mg Q12HR NG 08/13/20 09:00 11/11/20 08:59 09/09/20 08:48 Assessment/Plan Assessment/Plan Pulmonary Progress Note Subjective ROS Limited/Unobtainable: Yes Constitutional: Denies: fever Allergies: Coded Allergies: No Known Allergies (Unverified , 08/02/20) All Systems: reviewed and negative except above Subjective care noted on ventilator, elevatedCO2,high FIO2 diffuse infiltrates Objective Vital Signs noted Objective WDWN NAD reduced breath sounds bilaterally with scattered rhonchi [id number] NABS nontender no CCE nonfocal on BIPAP poorly responsive Laboratory Tests noted Medications noted Assessment/Plan Assessment/Plan ASSESSMENT: chronic encephalopathy, dementia, diffuse infiltrates, elevated BNP hypertension, recurrent falls, and urinary tract infection, hypoxemia, probable aspiration pneumonia. PLAN care noted respiratory care as is wean [id number] previously d/w family as to poor prognosis and consider terminal care on high oxygen needs repeat CXR and ABG noted palliative care recommended doubt any chance of recovery impression, plan, and exam edited and reviewed in detail care discussed with RN Sarkis Bangura MD Sep 09, 2020 21:14
--- NOTE | 2020-09-09 22:27 | Cardiology Progress Note ---
Subjective DATE OF SERVICE: Sep 09, 2020 S/P PEG placement 09/08/20 Remains on vent via trach; O2 requirements remain high, but decreasing. No respiratory distress BP readings stable Monitor: sinus rhythm with no episodes of bradycardia today. Na levels and renal parameters normalized ABG (09/09) 7.26/63/168 S/P 1 unit PRBC's 09/07/20, for low hb. Objective Last 24 Hour Vital Signs Date Time Temp Pulse Resp B/P (MAP) Pulse Ox O2 Delivery O2 Flow Rate FiO2 09/09/20 21:48 66 142/70 09/09/20 20:15 80 09/09/20 20:00 96.6 66 28 142/70 (94) 100 09/09/20 20:00 66 09/09/20 20:00 Mechanical Ventilator 09/09/20 19:30 69 28 100 Mechanical Ventilator 80 68 28 80 09/09/20 16:00 65 09/09/20 16:00 97.5 69 20 143/63 (89) 100 09/09/20 16:00 Mechanical Ventilator 09/09/20 16:00 80 09/09/20 15:35 66 28 100 Mechanical Ventilator 80 70 28 80 09/09/20 12:13 59 28 80 09/09/20 12:00 65 09/09/20 12:00 Mechanical Ventilator 09/09/20 12:00 80 09/09/20 12:00 97.3 64 20 130/86 (101) 100 09/09/20 08:48 85 159/79 09/09/20 08:00 Mechanical Ventilator 09/09/20 08:00 70 09/09/20 08:00 97.3 85 20 159/79 (105) 100 09/09/20 08:00 80 09/09/20 07:22 78 28 100 Mechanical Ventilator 80 78 28 80 09/09/20 04:00 66 09/09/20 04:00 Mechanical Ventilator 09/09/20 04:00 97.7 68 28 120/70 (87) 100 09/09/20 04:00 80 09/09/20 03:28 67 28 100 Mechanical Ventilator 80 70 28 80 09/09/20 00:00 70 09/09/20 00:00 98.4 68 28 115/65 (82) 100 09/09/20 00:00 Mechanical Ventilator 09/08/20 23:07 68 28 100 Mechanical Ventilator 80 76 30 80 ROS: unchanged from my evaluation of 08/02/20 HEENT: Mechanically Ventilated, Thin Trach secretions RHYTHM: NSR, PACs, Afib LUNGS: bilateral rhonchi, trach site clean CARDIAC: normal S1 and S2, irregularly irregular, systolic murmur - 1/6 systolic murmurat apex, rapid rate ABDOMEN: normal bowel sounds, non tender, soft, no organomegaly, G-Tube intact EXTREMITIES: normal range of motion, trace edema Laboratory Tests Test 09/09/20 21:28 Arterial Blood pH 7.265 (7.350-7.450) Arterial Blood Partial Pressure CO2 62.8 mmHg (35.0-45.0) *H Arterial Blood Partial Pressure O2 168.8 mmHg (75.0-100.0) H Arterial Blood HCO3 27.9 mmol/L (22.0-26.0) H Arterial Blood Oxygen Saturation 98.5 % (95-100) Arterial Blood Base Excess 0.2 (-2-2) Emile Test Positive Microbiology Date/Time Source Procedure Growth Status 09/08/20 01:30 Nasopharynx SARS-CoV-2 RdRp Gene Assay - Final Complete 09/07/20 13:34 Stool Clostridium difficile Toxin Assay - Final Complete Assessment/Plan Assessment/Plan Status post uncomplicated PEG Paroxysmal atrial fibrillation with RVR Acute myocardial ischemia with elevated troponin Aspiration risk Sepsis Healthcare acquired PNA Complicated UTI with indwelling catheter Hyponatremia Severe protein calorie malnutrition Acute myocardial ischemia Respiratory failure with hypoxia and hypercarbia - now on mech ventilation Hypokalemia Leukocytosis improving Ac/chronic diastolic CHF Dehydration/hypernatremia resolved into hyponatremia Hypokalemia Acute renal failure Occluded left cephalic vein Metabolic acidosis Anemia, multifactorial Trach care Antimicrobials per ID Vent support with setting sdjusted. Taper O2 more aggressively and monitor acid- base parameters. GTube feedings per GI DVT prophylaxis Continue amiodarone - maintenance dose; titrate beta katya. Replace lytes/Mg++ as needed. Titrate anti-HTN regimen as needed. PRBC tx as needed. Sarkis Herman MD Sep 09, 2020 22:27
[2020-09-10] VITALS: BP 127/62
--- NOTE | 2020-09-10 00:02 | NUR ---
NURSE NOTES: Condition unchanged. Respiration even and unlabored. SB at 56 on sql database developer. VSS afebrile. In no apparent distress.
--- NOTE | 2020-09-10 02:00 | NUR ---
NURSE NOTES: Eyes close. No distress noted Respirations even and unlabored. SB-SR on watch manufacturing supervisor. No significant changes noted.
[2020-09-10] MEDS: Albuterol/Ipratropium 3ml neb HHN SCH ×6 (03:02→23:06)
[2020-09-10 04:00] VITALS: BP 121/67
--- NOTE | 2020-09-10 06:00 | NUR ---
NURSE NOTES: Pt. in bed w/no sign of distress. Respiration even and unlabored. SR on teletypesetter monitor. Bed in low position, locked. VSS Afebrile Bed alarm engaged. Call light within reach. Will continue POC.
[2020-09-10 06:10] LABS: ALANINE AMINOTRANSFERASE 26 U/L (12-78); ALBUMIN 0.7 G/DL (3.4-5.0); ALKALINE PHOSPHATASE 145 U/L (46-116); ASPARTATE AMINO TRANSFERASE 33 U/L (15-37); BILIRUBIN,TOTAL 0.3 MG/DL (0.2-1.0); BLOOD UREA NITROGEN 78 mg/dL (7-18); CHLORIDE 103 MMOL/L (98-107); POTASSIUM 5.3 MMOL/L (3.5-5.1); SODIUM 134 MMOL/L (136-145)
[2020-09-10 06:43] LABS: CARBON DIOXIDE 26 MMOL/L (21-32)
[2020-09-10 06:51] LABS: CALCIUM 7.3 MG/DL (8.5-10.1)
--- NOTE | 2020-09-10 07:23 | NUR ---
HAND-OFF: Report given to Desiree TrotterRN
--- NOTE | 2020-09-10 07:39 | NUR ---
RD ASSESSMENT & RECOMMENDATIONS SEE CARE ACTIVITY FOR COMPLETE ASSESSMENT DAILY ESTIMATED NEEDS: Needs based on Underweight, critical care/ 45kg 30-35 kcals/kg 0730-9681 total kcals 1.2-2 g protein/kg 54-90 g total protein 25-30 mL/kg 5245-5028 total fluid mLs NUTRITION DIAGNOSIS: * Increased kcal/prot needs R/T underweight status, pulmonary status as evidenced by pt @ 73% IBW, w/ BMI of 16.5, low BMI per guidelines, h/o COPD. * Swallowing difficulty R/T dysphagia, respiratory status as evidenced by s/p failed video swallow study, w/ rec for NPO, s/p NGT insertion for NGT feeds, s/p oral intubation (08/19), now s/p trach placement (08/27),pending PEG placement. CURRENT TF: NPO-> now Glucerna 1.5 @50 post PEG ENTERAL NUTRITION RECOMMENDATIONS: Glucerna 1.5 @ 43ml/hr x 24 hrs to provide 1032ml, 1548kcal, 85g prot, 783ml free water * rec Glucerna 1.5 for carb control and greater protein content * initiate Glucerna 1.5 @ 33ml/hr x 6hrs * Advance 10ml q 4-6 hrs as tolerated to goal rate * HOB over 30 degrees/ water flush 100ml q 6hrs ------- WITH K TRENDING UP(K=5.3)-> consider TF change to Nepro w/ goal of 36ml/hr to provide 864ml, 1555 kcal, 70g pro, 628ml free H2O. -flush per MD, HOB over 30 degrees ADDITIONAL RECOMMENDATIONS: * Wt@ [facility] on 07/2930=200gdn (48kg) fluctuating daily wts, rec recalibrated bedscale wt (wts now 60's kg) * Monitor lytes daily, replete as needed-> K now elev(5.3) -> monitor trend, need for TF change to NEPRO * Monitor tolerance to PEG feeds (s/p PEG placement 09/08) * Rec NISS w/ TF, rec accuchecks
--- NOTE | 2020-09-10 07:55 | NUR ---
NURSE NOTES: Report received from Jose Rafael ARGUELLES. Patient is observed in bed, awake, alert, but unable to verbalized needs. Respiratory even and unlabored. No s/s of acute discomfort per FLACC scale. IV sites are asymptomatic, patent, and intact. GTF is running at a prescribed rate. HOB is elevated. Bed is in lowest position with side rails up x2 and brakes are engaged. Will continue frequent monitoring.
[2020-09-10 07:57] LABS: ALBUMIN/GLOBULIN RATIO 0.2 (1.0-2.7); HEMATOCRIT 25.3 % (42.0-52.0); HEMOGLOBIN 8.7 G/DL (14.2-18.0); MEAN CORPUSCULAR VOLUME 88 FL (80-99); PLATELET COUNT 95 K/UL (150-450); RED BLOOD COUNT 2.89 M/UL (4.70-6.10); RED CELL DISTRIBUTION WIDTH 13.6 % (11.6-14.8); WHITE BLOOD COUNT 18.7 K/UL (4.8-10.8)
[2020-09-10 08:00] VITALS: BP 111/66
[2020-09-10] MEDS: Amiodarone 200mg tab NG SCH (08:36)
[2020-09-10] MEDS: Heparin 5000 units/ml inj SUBQ SCH ×2 (08:37→20:11)
--- NOTE | 2020-09-10 10:09 | NUR ---
RADIOLOGY DEPT., CHEST X-RAY DONE.-P.DYE
--- NOTE | 2020-09-10 10:25 | NUR ---
NURSE NOTES: Notified Dr. Gilmore regarding K: 5.3, awaiting call back.
--- NOTE | 2020-09-10 10:33 | Diagnostic Imaging Report ---
Indication: Shortness of breath Technique: One view of the chest Comparison: 09/07/2020 Findings: Bilateral extensive bilateral diffuse infiltrates are again demonstrated. Tracheostomy remains. Impression: Unchanged, over one day, findings as above.
[2020-09-10 12:00] VITALS: BP 121/93
--- NOTE | 2020-09-10 13:14 | General Progress Note ---
Subjective ROS Limited/Unobtainable: Yes Constitutional: Reports: malaise, weakness HEENT: Reports: no symptoms Cardiovascular: Reports: no symptoms Respiratory: Reports: shortness of breath Gastrointestinal/Abdominal: Reports: difficulty swallowing Genitourinary: Reports: no symptoms Neurologic/Psychiatric: Reports: pre-existing deficit Endocrine: Reports: no symptoms Hematologic/Lymphatic: Reports: anemia Allergies: Coded Allergies: VANCOMYCIN (Verified Allergy, Severe, hive, 08/27/20) All Systems: reviewed and negative except above Subjective no change. vent dependent. increase fio2 requirements- on 80%. no fevers or chills. labs reviewed. cxr unchanged. renal fxn trending up. awake. does not follow commands. off abx Objective Last 24 Hour Vital Signs Date Time Temp Pulse Resp B/P (MAP) Pulse Ox O2 Delivery O2 Flow Rate FiO2 09/10/20 12:00 Mechanical Ventilator 09/10/20 12:00 80 09/10/20 08:36 66 111/66 09/10/20 08:09 63 09/10/20 08:00 80 09/10/20 08:00 Mechanical Ventilator 09/10/20 08:00 96.3 67 34 111/66 (81) 100 09/10/20 04:00 70 09/10/20 04:00 96.3 68 28 121/67 (85) 99 09/10/20 03:48 80 09/10/20 03:45 Mechanical Ventilator 09/10/20 03:02 67 28 100 Mechanical Ventilator 80 65 28 80 09/10/20 00:00 Mechanical Ventilator 09/10/20 00:00 80 09/10/20 00:00 56 09/10/20 00:00 97.0 56 28 127/62 (83) 98 09/09/20 23:33 64 28 100 Mechanical Ventilator 80 68 28 80 09/09/20 21:48 66 142/70 09/09/20 20:15 80 09/09/20 20:00 96.6 66 28 142/70 (94) 100 09/09/20 20:00 66 09/09/20 20:00 Mechanical Ventilator 09/09/20 19:30 69 28 100 Mechanical Ventilator 80 68 28 80 09/09/20 16:00 65 09/09/20 16:00 97.5 69 20 143/63 (89) 100 09/09/20 16:00 Mechanical Ventilator 09/09/20 16:00 80 09/09/20 15:35 66 28 100 Mechanical Ventilator 80 70 28 80 Intake and Output 09/09/20 09/10/20 19:00 07:00 Intake Total 540 ml 440 ml Output Total 500 ml 350 ml Balance 40 ml 90 ml Free Water 150 ml 50 ml Tube Feeding 290 ml 390 ml Other 100 ml Output Urine Total 500 ml 350 ml Laboratory Tests 09/09/20 21:28: Arterial Blood pH 7.265L, Arterial Blood Partial Pressure CO2 62.8*H, Arterial Blood Partial Pressure O2 168.8H, Arterial Blood HCO3 27.9H, Arterial Blood Oxygen Saturation 98.5, Arterial Blood Base Excess 0.2, Emile Test Positive 09/10/20 03:20: White Blood Count 18.7H, Red Blood Count 2.89L, Hemoglobin 8.7L, Hematocrit 25.3L, Mean Corpuscular Volume 88, Mean Corpuscular Hemoglobin 30.2, Mean Corpuscular Hemoglobin Concent 34.4, Red Cell Distribution Width 13.6, Platelet Count 95L, Mean Platelet Volume 10.9H, Neutrophils (%) (Auto) , Lymphocytes (%) (Auto) , Monocytes (%) (Auto) , Eosinophils (%) (Auto) , Basophils (%) (Auto) , Differential Total Cells Counted 100, Neutrophils % (Manual) 92H, Lymphocytes % (Manual) 3L, Monocytes % (Manual) 4, Eosinophils % (Manual) 1, Basophils % (Manual) 0, Band Neutrophils 0, Platelet Estimate DecreasedL, Platelet Morphology Normal, Hypochromasia 2+, Anisocytosis 1+, Sodium Level 134L, Potassium Level 5.3H, Chloride Level 103, Carbon Dioxide Level 26, Blood Urea Nitrogen 78H, Creatinine 2.0H, Estimat Glomerular Filtration Rate 31.7, Glucose Level 137H, Calcium Level 7.3L, Total Bilirubin 0.3, Aspartate Amino Transf (AST/SGOT) 33, Alanine Aminotransferase (ALT/SGPT) 26, Alkaline Phosphatase 145H , Total Protein < 2.0L, Albumin 0.7L, Globulin 4.1, Albumin/Globulin Ratio 0.2L Height (Feet): 5 Height (Inches): 4.00 Weight (Pounds): 147 Objective General Appearance: WD/WN, confused, thin. on the vent EENT: normal ENT inspection Neck: non-tender, normal alignment, supple. trach midline Cardiovascular: normal rate, regular rhythm Respiratory/Chest: chest wall non-tender, lungs clear, normal breath sounds, no respiratory distress, no accessory muscle use Abdomen: normal bowel sounds, non tender, soft, no organomegaly Edema: no edema noted Arm (L), no edema noted Arm (R) Assessment/Plan Problem List: (1) Pneumonia ICD Codes: J18.9 - Pneumonia, unspecified organism SNOMED: 821423615 (2) Hypoxia ICD Codes: R09.02 - Hypoxemia SNOMED: 771808691 (3) AMS (altered mental status) ICD Codes: R41.82 - Altered mental status, unspecified SNOMED: 702569075 (4) UTI (urinary tract infection) ICD Codes: N39.0 - Urinary tract infection, site not specified SNOMED: 72159682 (5) Sepsis ICD Codes: A41.9 - Sepsis, unspecified organism SNOMED: 55361752 Status: stable, not improved Assessment/Plan: vent support trach care stable for gt abx per ID suctioning gentle hydration monitor labs/lytes replace as needes dvt/stress ulcer prophylaxis turn q2 poor prognosis Chavez Gilmore MD Sep 10, 2020 13:14
--- NOTE | 2020-09-10 13:53 | Infectious Diseases Prog Note ---
Assessment/Plan Assessment/Plan A: 1. Bilateral pneumonia treated 2. COVID-19 test is negative. 3. Urinary tract infection. 4. Hypertension. 5. Dementia. 6. Respiratory failure intubated 7. Parkinson's disease 8. Fungal UTI treated PLAN: Observe off antibiotic Subjective ROS Limited/Unobtainable: Yes Constitutional: Denies: fever Allergies: Coded Allergies: VANCOMYCIN (Verified Allergy, Severe, hive, 08/27/20) Objective Last 24 Hour Vital Signs Date Time Temp Pulse Resp B/P (MAP) Pulse Ox O2 Delivery O2 Flow Rate FiO2 09/10/20 12:00 Mechanical Ventilator 09/10/20 12:00 80 09/10/20 08:36 66 111/66 09/10/20 08:09 63 09/10/20 08:00 80 09/10/20 08:00 Mechanical Ventilator 09/10/20 08:00 96.3 67 34 111/66 (81) 100 09/10/20 04:00 70 09/10/20 04:00 96.3 68 28 121/67 (85) 99 09/10/20 03:48 80 09/10/20 03:45 Mechanical Ventilator 09/10/20 03:02 67 28 100 Mechanical Ventilator 80 65 28 80 09/10/20 00:00 Mechanical Ventilator 09/10/20 00:00 80 09/10/20 00:00 56 09/10/20 00:00 97.0 56 28 127/62 (83) 98 09/09/20 23:33 64 28 100 Mechanical Ventilator 80 68 28 80 09/09/20 21:48 66 142/70 09/09/20 20:15 80 09/09/20 20:00 96.6 66 28 142/70 (94) 100 09/09/20 20:00 66 09/09/20 20:00 Mechanical Ventilator 09/09/20 19:30 69 28 100 Mechanical Ventilator 80 68 28 80 09/09/20 16:00 65 09/09/20 16:00 97.5 69 20 143/63 (89) 100 09/09/20 16:00 Mechanical Ventilator 09/09/20 16:00 80 09/09/20 15:35 66 28 100 Mechanical Ventilator 80 70 28 80 Height (Feet): 5 Height (Inches): 4.00 Weight (Pounds): 147 HEENT: status post trach Respiratory/Chest: lungs clear, other - on ventilator Cardiovascular: normal rate Abdomen: soft, non tender, other - GT feeding Extremities: other - generalized edema Neurologic/Psychiatric: aphasia, other - awake Microbiology Date/Time Source Procedure Growth Status 09/08/20 01:30 Nasopharynx SARS-CoV-2 RdRp Gene Assay - Final Complete Laboratory Tests Test 09/09/20 21:28 09/10/20 03:20 Arterial Blood pH 7.265 (7.350-7.450) Arterial Blood Partial Pressure CO2 62.8 mmHg (35.0-45.0) *H Arterial Blood Partial Pressure O2 168.8 mmHg (75.0-100.0) H Arterial Blood HCO3 27.9 mmol/L (22.0-26.0) H Arterial Blood Oxygen Saturation 98.5 % (95-100) Arterial Blood Base Excess 0.2 (-2-2) Emile Test Positive White Blood Count 18.7 K/UL (4.8-10.8) H Red Blood Count 2.89 M/UL (4.70-6.10) L Hemoglobin 8.7 G/DL (14.2-18.0) L Hematocrit 25.3 % (42.0-52.0) L Mean Corpuscular Volume 88 FL (80-99) Mean Corpuscular Hemoglobin 30.2 PG (27.0-31.0) Mean Corpuscular Hemoglobin Concent 34.4 G/DL (32.0-36.0) Red Cell Distribution Width 13.6 % (11.6-14.8) Platelet Count 95 K/UL (150-450) L Mean Platelet Volume 10.9 FL (6.5-10.1) H Neutrophils (%) (Auto) % (45.0-75.0) Lymphocytes (%) (Auto) % (20.0-45.0) Monocytes (%) (Auto) % (1.0-10.0) Eosinophils (%) (Auto) % (0.0-3.0) Basophils (%) (Auto) % (0.0-2.0) Differential Total Cells Counted 100 Neutrophils % (Manual) 92 % (45-75) H Lymphocytes % (Manual) 3 % (20-45) L Monocytes % (Manual) 4 % (1-10) Eosinophils % (Manual) 1 % (0-3) Basophils % (Manual) 0 % (0-2) Band Neutrophils 0 % (0-8) Platelet Estimate Decreased L Platelet Morphology Normal Hypochromasia 2+ Anisocytosis 1+ Sodium Level 134 MMOL/L (136-145) L Potassium Level 5.3 MMOL/L (3.5-5.1) H Chloride Level 103 MMOL/L (98-107) Carbon Dioxide Level 26 MMOL/L (21-32) Blood Urea Nitrogen 78 mg/dL (7-18) H Creatinine 2.0 MG/DL (0.55-1.30) H Estimat Glomerular Filtration Rate 31.7 mL/min (>60) Glucose Level 137 MG/DL (74-106) H Calcium Level 7.3 MG/DL (8.5-10.1) L Total Bilirubin 0.3 MG/DL (0.2-1.0) Aspartate Amino Transf (AST/SGOT) 33 U/L (15-37) Alanine Aminotransferase (ALT/SGPT) 26 U/L (12-78) Alkaline Phosphatase 145 U/L (46-116) H Total Protein < 2.0 G/DL (6.4-8.2) L Albumin 0.7 G/DL (3.4-5.0) L Globulin 4.1 g/dL Albumin/Globulin Ratio 0.2 (1.0-2.7) L Current Medications Medications (Trade) Dose Ordered Sig/Javon Route PRN Reason Start Time Stop Time Status Last Admin Dose Admin Albuterol/ Ipratropium (Albuterol/ Ipratropium) 3 ml Q4HRT HHN 09/07/20 11:00 09/12/20 10:59 09/10/20 11:59 Amiodarone HCl (Cordarone) 200 mg DAILY NG 09/04/20 09:00 11/15/20 08:59 09/10/20 08:36 Heparin Sodium (Porcine) (Heparin 5000 units/ml) 5,000 units EVERY 12 HOURS SUBQ 08/03/20 09:00 09/17/20 08:59 09/10/20 08:37 Hydralazine HCl (Apresoline) 25 mg Q6H PRN NG SBP above 160 08/11/20 22:30 11/05/20 00:29 08/12/20 15:09 Lansoprazole (Prevacid) 30 mg DAILY NG 08/30/20 09:00 09/29/20 08:59 09/10/20 08:35 Magnesium Hydroxide (Mom) 30 ml DAILYPRN PRN GT Constipation 08/12/20 09:00 09/11/20 08:59 Metoclopramide HCl (Reglan) 5 mg Q8H PRN IVP Nausea & Vomiting 08/15/20 13:00 09/14/20 12:59 09/09/20 21:56 Metoprolol Tartrate (Lopressor) 25 mg Q12HR NG 08/13/20 09:00 11/11/20 08:59 09/10/20 08:36 Sodium Chloride 1,000 ml @ 75 mls/hr [id number] IV 09/10/20 13:15 10/10/20 13:14 Baldev Luo MD Sep 10, 2020 13:53
--- NOTE | 2020-09-10 14:06 | Surgery Progress Note ---
Surgery Progress Note Subjective Procedure Performed trach Additional Comments no acute events Objective Last 24 Hour Vital Signs Date Time Temp Pulse Resp B/P (MAP) Pulse Ox O2 Delivery O2 Flow Rate FiO2 09/10/20 12:00 Mechanical Ventilator 09/10/20 12:00 80 09/10/20 08:36 66 111/66 09/10/20 08:09 63 09/10/20 08:00 80 09/10/20 08:00 Mechanical Ventilator 09/10/20 08:00 96.3 67 34 111/66 (81) 100 09/10/20 04:00 70 09/10/20 04:00 96.3 68 28 121/67 (85) 99 09/10/20 03:48 80 09/10/20 03:45 Mechanical Ventilator 09/10/20 03:02 67 28 100 Mechanical Ventilator 80 65 28 80 09/10/20 00:00 Mechanical Ventilator 09/10/20 00:00 80 09/10/20 00:00 56 09/10/20 00:00 97.0 56 28 127/62 (83) 98 09/09/20 23:33 64 28 100 Mechanical Ventilator 80 68 28 80 09/09/20 21:48 66 142/70 09/09/20 20:15 80 09/09/20 20:00 96.6 66 28 142/70 (94) 100 09/09/20 20:00 66 09/09/20 20:00 Mechanical Ventilator 09/09/20 19:30 69 28 100 Mechanical Ventilator 80 68 28 80 09/09/20 16:00 65 09/09/20 16:00 97.5 69 20 143/63 (89) 100 09/09/20 16:00 Mechanical Ventilator 09/09/20 16:00 80 09/09/20 15:35 66 28 100 Mechanical Ventilator 80 70 28 80 I&O Intake and Output0 09/09/20 09/10/20 19:00 07:00 Intake Total 540 ml 440 ml Output Total 500 ml 350 ml Balance 40 ml 90 ml Free Water 150 ml 50 ml Tube Feeding 290 ml 390 ml Other 100 ml Output Urine Total 500 ml 350 ml Dressing: saturated Cardiovascular: RSR Respiratory: decreased breath sounds Abdomen: soft, non-tender, present bowel sounds Extremities: no tenderness, no cyanosis Laboratory Tests Test 09/09/20 21:28 09/10/20 03:20 Arterial Blood pH 7.265 (7.350-7.450) Arterial Blood Partial Pressure CO2 62.8 mmHg (35.0-45.0) *H Arterial Blood Partial Pressure O2 168.8 mmHg (75.0-100.0) H Arterial Blood HCO3 27.9 mmol/L (22.0-26.0) H Arterial Blood Oxygen Saturation 98.5 % (95-100) Arterial Blood Base Excess 0.2 (-2-2) Emile Test Positive White Blood Count 18.7 K/UL (4.8-10.8) H Red Blood Count 2.89 M/UL (4.70-6.10) L Hemoglobin 8.7 G/DL (14.2-18.0) L Hematocrit 25.3 % (42.0-52.0) L Mean Corpuscular Volume 88 FL (80-99) Mean Corpuscular Hemoglobin 30.2 PG (27.0-31.0) Mean Corpuscular Hemoglobin Concent 34.4 G/DL (32.0-36.0) Red Cell Distribution Width 13.6 % (11.6-14.8) Platelet Count 95 K/UL (150-450) L Mean Platelet Volume 10.9 FL (6.5-10.1) H Neutrophils (%) (Auto) % (45.0-75.0) Lymphocytes (%) (Auto) % (20.0-45.0) Monocytes (%) (Auto) % (1.0-10.0) Eosinophils (%) (Auto) % (0.0-3.0) Basophils (%) (Auto) % (0.0-2.0) Differential Total Cells Counted 100 Neutrophils % (Manual) 92 % (45-75) H Lymphocytes % (Manual) 3 % (20-45) L Monocytes % (Manual) 4 % (1-10) Eosinophils % (Manual) 1 % (0-3) Basophils % (Manual) 0 % (0-2) Band Neutrophils 0 % (0-8) Platelet Estimate Decreased L Platelet Morphology Normal Hypochromasia 2+ Anisocytosis 1+ Sodium Level 134 MMOL/L (136-145) L Potassium Level 5.3 MMOL/L (3.5-5.1) H Chloride Level 103 MMOL/L (98-107) Carbon Dioxide Level 26 MMOL/L (21-32) Blood Urea Nitrogen 78 mg/dL (7-18) H Creatinine 2.0 MG/DL (0.55-1.30) H Estimat Glomerular Filtration Rate 31.7 mL/min (>60) Glucose Level 137 MG/DL (74-106) H Calcium Level 7.3 MG/DL (8.5-10.1) L Total Bilirubin 0.3 MG/DL (0.2-1.0) Aspartate Amino Transf (AST/SGOT) 33 U/L (15-37) Alanine Aminotransferase (ALT/SGPT) 26 U/L (12-78) Alkaline Phosphatase 145 U/L (46-116) H Total Protein < 2.0 G/DL (6.4-8.2) L Albumin 0.7 G/DL (3.4-5.0) L Globulin 4.1 g/dL Albumin/Globulin Ratio 0.2 (1.0-2.7) L Plan Problems: (1) Pneumonia (2) Hypoxia (3) Sepsis Assessment & Plan: respiratory insufficiency prolonged ventilatory support failed weaning trials weaning vent as much as possible anticipate prolong vent support trach indicated and recommended will obtain consent plan for trach as able to wean thank you cont weaning will follow with recs s/p trach wean sedation wean vent no active bleeding noted h/h noted trend labs worsening prognosis guarded peg 09/08 cont tf (4) UTI (urinary tract infection) (5) Pneumonia (6) AMS (altered mental status) Isaias Loaiza Sep 10, 2020 14:06
[2020-09-10 16:00] VITALS: BP 131/77
--- NOTE | 2020-09-10 16:00 | NUR ---
NURSE NOTES: Patient is asleep but arousable via tactile stimuli. Patient is in stable condition. Will continue to monitor.
--- NOTE | 2020-09-10 17:23 | Cardiology Progress Note ---
Subjective DATE OF SERVICE: Sep 10, 2020 S/P PEG placement 09/08/20 Remains on vent via trach; O2 requirements remain high, but decreasing. No respiratory distress BP readings stable Monitor: sinus rhythm with no episodes of bradycardia today. Na levels and renal parameters normalized ABG (09/09) 7.26/63/168 S/P 1 unit PRBC's 09/07/20, for low hb. CXR (09/10) unchanged bilateral infiltrates Objective Last 24 Hour Vital Signs Date Time Temp Pulse Resp B/P (MAP) Pulse Ox O2 Delivery O2 Flow Rate FiO2 09/10/20 16:00 80 09/10/20 16:00 97.9 70 30 131/77 (95) 100 09/10/20 16:00 Mechanical Ventilator 09/10/20 15:28 71 29 100 Mechanical Ventilator 80 71 29 80 09/10/20 15:27 77 09/10/20 12:09 60 28 100 Mechanical Ventilator 80 62 28 80 09/10/20 12:01 77 09/10/20 12:00 97.9 64 30 121/93 (102) 100 09/10/20 12:00 Mechanical Ventilator 09/10/20 12:00 80 09/10/20 08:36 66 111/66 09/10/20 08:09 63 09/10/20 08:03 65 29 100 Mechanical Ventilator 80 69 29 80 09/10/20 08:00 80 09/10/20 08:00 Mechanical Ventilator 09/10/20 08:00 96.3 67 34 111/66 (81) 100 09/10/20 04:00 70 09/10/20 04:00 96.3 68 28 121/67 (85) 99 09/10/20 03:48 80 09/10/20 03:45 Mechanical Ventilator 09/10/20 03:02 67 28 100 Mechanical Ventilator 80 65 28 80 09/10/20 00:00 Mechanical Ventilator 09/10/20 00:00 80 09/10/20 00:00 56 09/10/20 00:00 97.0 56 28 127/62 (83) 98 09/09/20 23:33 64 28 100 Mechanical Ventilator 80 68 28 80 09/09/20 21:48 66 142/70 09/09/20 20:15 80 09/09/20 20:00 96.6 66 28 142/70 (94) 100 09/09/20 20:00 66 09/09/20 20:00 Mechanical Ventilator 09/09/20 19:30 69 28 100 Mechanical Ventilator 80 68 28 80 ROS: unchanged from my evaluation of 08/02/20 HEENT: Mechanically Ventilated, Thin Trach secretions RHYTHM: NSR, PACs, Afib LUNGS: bilateral rhonchi, trach site clean CARDIAC: normal S1 and S2, irregularly irregular, systolic murmur - 1/6 systolic murmurat apex, rapid rate ABDOMEN: normal bowel sounds, non tender, soft, no organomegaly, G-Tube intact EXTREMITIES: normal range of motion, trace edema Laboratory Tests Test 09/09/20 21:28 09/10/20 03:20 Arterial Blood pH 7.265 (7.350-7.450) Arterial Blood Partial Pressure CO2 62.8 mmHg (35.0-45.0) *H Arterial Blood Partial Pressure O2 168.8 mmHg (75.0-100.0) H Arterial Blood HCO3 27.9 mmol/L (22.0-26.0) H Arterial Blood Oxygen Saturation 98.5 % (95-100) Arterial Blood Base Excess 0.2 (-2-2) Emile Test Positive White Blood Count 18.7 K/UL (4.8-10.8) H Red Blood Count 2.89 M/UL (4.70-6.10) L Hemoglobin 8.7 G/DL (14.2-18.0) L Hematocrit 25.3 % (42.0-52.0) L Mean Corpuscular Volume 88 FL (80-99) Mean Corpuscular Hemoglobin 30.2 PG (27.0-31.0) Mean Corpuscular Hemoglobin Concent 34.4 G/DL (32.0-36.0) Red Cell Distribution Width 13.6 % (11.6-14.8) Platelet Count 95 K/UL (150-450) L Mean Platelet Volume 10.9 FL (6.5-10.1) H Neutrophils (%) (Auto) % (45.0-75.0) Lymphocytes (%) (Auto) % (20.0-45.0) Monocytes (%) (Auto) % (1.0-10.0) Eosinophils (%) (Auto) % (0.0-3.0) Basophils (%) (Auto) % (0.0-2.0) Differential Total Cells Counted 100 Neutrophils % (Manual) 92 % (45-75) H Lymphocytes % (Manual) 3 % (20-45) L Monocytes % (Manual) 4 % (1-10) Eosinophils % (Manual) 1 % (0-3) Basophils % (Manual) 0 % (0-2) Band Neutrophils 0 % (0-8) Platelet Estimate Decreased L Platelet Morphology Normal Hypochromasia 2+ Anisocytosis 1+ Sodium Level 134 MMOL/L (136-145) L Potassium Level 5.3 MMOL/L (3.5-5.1) H Chloride Level 103 MMOL/L (98-107) Carbon Dioxide Level 26 MMOL/L (21-32) Blood Urea Nitrogen 78 mg/dL (7-18) H Creatinine 2.0 MG/DL (0.55-1.30) H Estimat Glomerular Filtration Rate 31.7 mL/min (>60) Glucose Level 137 MG/DL (74-106) H Calcium Level 7.3 MG/DL (8.5-10.1) L Total Bilirubin 0.3 MG/DL (0.2-1.0) Aspartate Amino Transf (AST/SGOT) 33 U/L (15-37) Alanine Aminotransferase (ALT/SGPT) 26 U/L (12-78) Alkaline Phosphatase 145 U/L (46-116) H Total Protein < 2.0 G/DL (6.4-8.2) L Albumin 0.7 G/DL (3.4-5.0) L Globulin 4.1 g/dL Albumin/Globulin Ratio 0.2 (1.0-2.7) L Microbiology Date/Time Source Procedure Growth Status 09/08/20 01:30 Nasopharynx SARS-CoV-2 RdRp Gene Assay - Final Complete Assessment/Plan Assessment/Plan Status post uncomplicated PEG Paroxysmal atrial fibrillation with RVR Acute myocardial ischemia with elevated troponin Aspiration risk Sepsis Healthcare acquired PNA Complicated UTI with indwelling catheter Hyponatremia Severe protein calorie malnutrition Acute myocardial ischemia Respiratory failure with hypoxia and hypercarbia - now on mech ventilation Hyperkalemia Leukocytosis improving Ac/chronic diastolic CHF Dehydration/hypernatremia resolved into hyponatremia Hypokalemia Acute renal failure Occluded left cephalic vein Metabolic acidosis Anemia, multifactorial Trach care Additional isotonic IVF ordered Antimicrobials per ID Vent support with setting sdjusted. Taper O2 more aggressively and monitor acid- base parameters. GTube feedings per GI DVT prophylaxis Continue amiodarone - maintenance dose; titrate beta katya. Replace lytes/Mg++ as needed. Titrate anti-HTN regimen as needed. PRBC tx as needed. Sarkis Herman MD Sep 10, 2020 17:23
--- NOTE | 2020-09-10 19:10 | NUR ---
NURSE NOTES: Received report from BLANE Ramírez. Patient asleep in bed, afebrile, obtunded, responds to deep tactile stimulation and no respiratory distress noted.SR on 5 compliance monitor. trache to vent shiley 8, AC 28, TV 550, FiO2 80% and PEEP 10 saturating at 99%.on osmolite at 50cc/hr via GT infusing well, no residual and sediment noted. With Right FH 20g IV line intact, patent and asymptomatic. with FC to urine bag draining ana lilia yellow urine. with rectal tube draining well. Needs were attended. Bed rails are up and wheels are locked. Continue to monitor the patient. Addendum: 09/11/20 at 0722 by JERZY Jon RN Correction:09/10/2020 at 2000 Glucerna 1.5 at 50cc/hr
--- NOTE | 2020-09-10 19:17 | General Progress Note ---
Subjective Allergies: Coded Allergies: VANCOMYCIN (Verified Allergy, Severe, hive, 08/27/20) Subjective above noted Non responsive on GT feeds Objective Last 24 Hour Vital Signs Date Time Temp Pulse Resp B/P (MAP) Pulse Ox O2 Delivery O2 Flow Rate FiO2 09/10/20 19:12 79 28 100 Mechanical Ventilator 80 75 28 80 09/10/20 16:00 80 09/10/20 16:00 97.9 70 30 131/77 (95) 100 09/10/20 16:00 Mechanical Ventilator 09/10/20 15:28 71 29 100 Mechanical Ventilator 80 71 29 80 09/10/20 15:27 77 09/10/20 12:09 60 28 100 Mechanical Ventilator 80 62 28 80 09/10/20 12:01 77 09/10/20 12:00 97.9 64 30 121/93 (102) 100 09/10/20 12:00 Mechanical Ventilator 09/10/20 12:00 80 09/10/20 08:36 66 111/66 09/10/20 08:09 63 09/10/20 08:03 65 29 100 Mechanical Ventilator 80 69 29 80 09/10/20 08:00 80 09/10/20 08:00 Mechanical Ventilator 09/10/20 08:00 96.3 67 34 111/66 (81) 100 09/10/20 04:00 70 09/10/20 04:00 96.3 68 28 121/67 (85) 99 09/10/20 03:48 80 09/10/20 03:45 Mechanical Ventilator 09/10/20 03:02 67 28 100 Mechanical Ventilator 80 65 28 80 09/10/20 00:00 Mechanical Ventilator 09/10/20 00:00 80 09/10/20 00:00 56 09/10/20 00:00 97.0 56 28 127/62 (83) 98 09/09/20 23:33 64 28 100 Mechanical Ventilator 80 68 28 80 09/09/20 21:48 66 142/70 09/09/20 20:15 80 09/09/20 20:00 96.6 66 28 142/70 (94) 100 09/09/20 20:00 66 09/09/20 20:00 Mechanical Ventilator 09/09/20 19:30 69 28 100 Mechanical Ventilator 80 68 28 80 Intake and Output 09/09/20 09/10/20 19:00 07:00 Intake Total 540 ml 480 ml Output Total 500 ml 350 ml Balance 40 ml 130 ml Free Water 150 ml 50 ml Tube Feeding 290 ml 430 ml Other 100 ml Output Urine Total 500 ml 350 ml Laboratory Tests 09/09/20 21:28: Arterial Blood pH 7.265L, Arterial Blood Partial Pressure CO2 62.8*H, Arterial Blood Partial Pressure O2 168.8H, Arterial Blood HCO3 27.9H, Arterial Blood Oxygen Saturation 98.5, Arterial Blood Base Excess 0.2, Emile Test Positive 09/10/20 03:20: White Blood Count 18.7H, Red Blood Count 2.89L, Hemoglobin 8.7L, Hematocrit 25.3L, Mean Corpuscular Volume 88, Mean Corpuscular Hemoglobin 30.2, Mean Corpuscular Hemoglobin Concent 34.4, Red Cell Distribution Width 13.6, Platelet Count 95L, Mean Platelet Volume 10.9H, Neutrophils (%) (Auto) , Lymphocytes (%) (Auto) , Monocytes (%) (Auto) , Eosinophils (%) (Auto) , Basophils (%) (Auto) , Differential Total Cells Counted 100, Neutrophils % (Manual) 92H, Lymphocytes % (Manual) 3L, Monocytes % (Manual) 4, Eosinophils % (Manual) 1, Basophils % (Manual) 0, Band Neutrophils 0, Platelet Estimate DecreasedL, Platelet Morphology Normal, Hypochromasia 2+, Anisocytosis 1+, Sodium Level 134L, Potassium Level 5.3H, Chloride Level 103, Carbon Dioxide Level 26, Blood Urea Nitrogen 78H, Creatinine 2.0H, Estimat Glomerular Filtration Rate 31.7, Glucose Level 137H, Calcium Level 7.3L, Total Bilirubin 0.3, Aspartate Amino Transf (AST/SGOT) 33, Alanine Aminotransferase (ALT/SGPT) 26, Alkaline Phosphatase 145H , Total Protein < 2.0L, Albumin 0.7L, Globulin 4.1, Albumin/Globulin Ratio 0.2L Height (Feet): 5 Height (Inches): 4.00 Weight (Pounds): 147 Objective Elderly man unresponsive NCAT supple, (+) trach scattered ronchi RR abd soft, (+) GT trace edema Assessment/Plan Status: stable, not improved Assessment/Plan: Assessment - Leukocytosis - respiratory failure, s/p Trach - Parox a fib - acute myocardial ischemia - PNA/sepsis - dysphagia - s/p PEG - elevated glucose - poor prognosis Recommendations - glucjessica TF - PEG care - ID follow up - Pulmonary toilet, vent care Arely Parks MD Sep 10, 2020 19:17
--- NOTE | 2020-09-10 19:20 | NUR ---
NURSE HAND-OFF REPORT: Important Events on Shift: Patient Status: Stable condition Diet: tube feeding. Pending Orders: [] Pending Results/Labs:[] Pending MD notification:[] Latest Vital Signs: Temperature 97.9 , Pulse 79 , B/P 131 /77 , Respiratory Rate 28 , O2 SAT 100 , Mechanical Ventilator, O2 Flow Rate 70.0 . Vital Sign Comment: [] EKG Rhythm: Sinus Rhythm Rhythm change?: N MD Notified?: N -Dr. Virgil KURTZ Response: Message left await call Latest José Fall Score: 85 Fall Risk: High Risk Safety Measures: Call light Within Reach, Bed Alarm Zone 1, Side Rails Side Rails x3, Bed position Low and Locked. Fall Precautions: Yellow Socks Yellow Gown Door Sign Patient Fall Education Report given to JERZY ARGUELLES.
[2020-09-10 20:00] VITALS: BP 134/66
--- NOTE | 2020-09-10 21:50 | Pulmonology Progress Note ---
Subjective ROS Limited/Unobtainable: Yes Constitutional: Denies: fever Gastrointestinal/Abdominal: Reports: other - will have NG tube placement today Allergies: Coded Allergies: VANCOMYCIN (Verified Allergy, Severe, hive, 08/27/20) All Systems: reviewed and negative except above Objective Last 24 Hour Vital Signs Date Time Temp Pulse Resp B/P (MAP) Pulse Ox O2 Delivery O2 Flow Rate FiO2 09/10/20 20:08 80 131/77 09/10/20 20:00 Mechanical Ventilator 09/10/20 20:00 96.8 84 28 134/66 (88) 100 09/10/20 20:00 80 09/10/20 19:12 79 28 100 Mechanical Ventilator 80 75 28 80 09/10/20 16:00 80 09/10/20 16:00 97.9 70 30 131/77 (95) 100 09/10/20 16:00 Mechanical Ventilator 09/10/20 15:28 71 29 100 Mechanical Ventilator 80 71 29 80 09/10/20 15:27 77 09/10/20 12:09 60 28 100 Mechanical Ventilator 80 62 28 80 09/10/20 12:01 77 09/10/20 12:00 97.9 64 30 121/93 (102) 100 09/10/20 12:00 Mechanical Ventilator 09/10/20 12:00 80 09/10/20 08:36 66 111/66 09/10/20 08:09 63 09/10/20 08:03 65 29 100 Mechanical Ventilator 80 69 29 80 09/10/20 08:00 80 09/10/20 08:00 Mechanical Ventilator 09/10/20 08:00 96.3 67 34 111/66 (81) 100 09/10/20 04:00 70 09/10/20 04:00 96.3 68 28 121/67 (85) 99 09/10/20 03:48 80 09/10/20 03:45 Mechanical Ventilator 09/10/20 03:02 67 28 100 Mechanical Ventilator 80 65 28 80 09/10/20 00:00 Mechanical Ventilator 09/10/20 00:00 80 09/10/20 00:00 56 09/10/20 00:00 97.0 56 28 127/62 (83) 98 09/09/20 23:33 64 28 100 Mechanical Ventilator 80 68 28 80 Intake and Output 09/09/20 09/10/20 19:00 07:00 Intake Total 540 ml 480 ml Output Total 500 ml 350 ml Balance 40 ml 130 ml Free Water 150 ml 50 ml Tube Feeding 290 ml 430 ml Other 100 ml Output Urine Total 500 ml 350 ml Microbiology Date/Time Source Procedure Growth Status 09/08/20 01:30 Nasopharynx SARS-CoV-2 RdRp Gene Assay - Final Complete Laboratory Tests 09/10/20 03:20: White Blood Count 18.7H, Red Blood Count 2.89L, Hemoglobin 8.7L, Hematocrit 2 5.3L, Mean Corpuscular Volume 88, Mean Corpuscular Hemoglobin 30.2, Mean Corpuscular Hemoglobin Concent 34.4, Red Cell Distribution Width 13.6, Platelet Count 95L, Mean Platelet Volume 10.9H, Neutrophils (%) (Auto) , Lymphocytes (%) (Auto) , Monocytes (%) (Auto) , Eosinophils (%) (Auto) , Basophils (%) (Auto) , Differential Total Cells Counted 100, Neutrophils % (Manual) 92H, Lymphocytes % (Manual) 3L, Monocytes % (Manual) 4, Eosinophils % (Manual) 1, Basophils % (Manual) 0, Band Neutrophils 0, Platelet Estimate DecreasedL, Platelet Morphology Normal, Hypochromasia 2+, Anisocytosis 1+, Sodium Level 134L, Potassium Level 5.3H, Chloride Level 103, Carbon Dioxide Level 26, Blood Urea Nitrogen 78H, Creatinine 2.0H, Estimat Glomerular Filtration Rate 31.7, Glucose Level 137H, Calcium Level 7.3L, Total Bilirubin 0.3, Aspartate Amino Transf (AST/SGOT) 33, Alanine Aminotransferase (ALT/SGPT) 26, Alkaline Phosphatase 145H , Total Protein < 2.0L, Albumin 0.7L, Globulin 4.1, Albumin/Globulin Ratio 0.2L Current Medications Medications (Trade) Dose Ordered Sig/Javon Route PRN Reason Start Time Stop Time Status Last Admin Dose Admin Albuterol/ Ipratropium (Albuterol/ Ipratropium) 3 ml Q4HRT HHN 09/07/20 11:00 09/12/20 10:59 09/10/20 19:12 Amiodarone HCl (Cordarone) 200 mg DAILY NG 09/04/20 09:00 11/15/20 08:59 09/10/20 08:36 Heparin Sodium (Porcine) (Heparin 5000 units/ml) 5,000 units EVERY 12 HOURS SUBQ 08/03/20 09:00 09/17/20 08:59 09/10/20 20:11 Hydralazine HCl (Apresoline) 25 mg Q6H PRN NG SBP above 160 08/11/20 22:30 11/05/20 00:29 08/12/20 15:09 Lansoprazole (Prevacid) 30 mg DAILY NG 08/30/20 09:00 09/29/20 08:59 09/10/20 08:35 Magnesium Hydroxide (Mom) 30 ml DAILYPRN PRN GT Constipation 08/12/20 09:00 09/11/20 08:59 Metoclopramide HCl (Reglan) 5 mg Q8H PRN IVP Nausea & Vomiting 08/15/20 13:00 09/14/20 12:59 09/09/20 21:56 Metoprolol Tartrate (Lopressor) 25 mg Q12HR NG 08/13/20 09:00 11/11/20 08:59 09/10/20 20:08 Sodium Chloride 1,000 ml @ 75 mls/hr [id number] IV 09/10/20 13:15 10/10/20 13:14 09/10/20 14:03 Assessment/Plan Assessment/Plan Pulmonary Progress Note Subjective ROS Limited/Unobtainable: Yes Constitutional: Denies: fever Allergies: Coded Allergies: No Known Allergies (Unverified , 08/02/20) All Systems: reviewed and negative except above Subjective care noted on ventilator, elevatedCO2,high FIO2 diffuse infiltrates Objective Vital Signs noted Objective WDWN NAD reduced breath sounds bilaterally with scattered rhonchi [id number] NABS nontender no CCE nonfocal on BIPAP poorly responsive Laboratory Tests noted Medications noted Assessment/Plan Assessment/Plan ASSESSMENT: chronic encephalopathy, dementia, diffuse infiltrates, elevated BNP hypertension, recurrent falls, and urinary tract infection, hypoxemia, probable aspiration pneumonia. PLAN care noted respiratory care as is wean [id number] previously d/w family as to poor prognosis and consider terminal care on high oxygen needs repeat CXR and ABG noted palliative care recommended doubt any chance of recovery impression, plan, and exam edited and reviewed in detail care discussed with Sarkis Samano MD Sep 10, 2020 21:50
[2020-09-11] VITALS: BP 112/62
--- NOTE | 2020-09-11 00:10 | NUR ---
NURSE NOTES: collected urine and dropped off at the lab. Addendum: 09/12/20 at 0359 by Raudel Owen RN correction, wrong date
--- NOTE | 2020-09-11 01:30 | NUR ---
NURSE NOTES: Pt was given bed bath and gown changed. No discomfort noted. no respiratory distress noted. Saturating at 99-100% on vent settings. Continue to monitor
[2020-09-11] MEDS: Albuterol/Ipratropium 3ml neb HHN SCH ×6 (02:58→23:00)
[2020-09-11 04:00] VITALS: BP 105/58
--- NOTE | 2020-09-11 07:10 | NUR ---
NURSE HAND-OFF REPORT: Important Events on Shift: both elbows dti Patient Status: stable Diet: osmolite 1.5 at 50cc/hr Pending Orders: n Pending Results/Labs:n Pending MD notification:n Latest Vital Signs: Temperature 97.3 , Pulse 83 , B/P 105 /58 , Respiratory Rate 30 , O2 SAT 100 , Mechanical Ventilator, O2 Flow Rate 70.0 . Vital Sign Comment: n EKG Rhythm: Sinus Rhythm Rhythm change?: N MD Notified?: N -Dr. Virgil KURTZ Response: Message left await call Latest José Fall Score: 85 Fall Risk: High Risk Safety Measures: Call light Within Reach, Bed Alarm Zone 1, Side Rails Side Rails x3, Bed position Low and Locked. Fall Precautions: Yellow Socks Yellow Gown Door Sign Patient Fall Education Report given to BLANE Reis.
[2020-09-11 07:14] LABS: CALCIUM 7.6 MG/DL (8.5-10.1); CREATININE 1.8 MG/DL (0.55-1.30); POTASSIUM 5.6 MMOL/L (3.5-5.1)
--- NOTE | 2020-09-11 07:15 | NUR ---
NURSE NOTES:Handoff received from BLANE METCALF. Patient received resting in bed, eye opening to voice but patient unable to follow commands, patient is on trach to vent with settings: S8, AC28, TV550, FI02 60% and PEEP of 10, tolerating well with saturation of 96%. patient is also on satellite project site monitor. G tube is patent and running Glucerna 1.2@ 50ML/HR, patient has springer and rectal tube both patient and draining to gravity, wound issues noted. Patient is also on p200 mattress, as well as contact isolation precautions and aspiration precautions. Will follow plan of care.
--- NOTE | 2020-09-11 07:33 | NUR ---
NURSE NOTES:Contacted Dr Gilmore as patient potassium level is elevated. Sodium is now in normal range wanted to also check that MD still wants to continue IV fluids as patient is edematous.
[2020-09-11 08:00] VITALS: BP 115/70
[2020-09-11] MEDS: Amiodarone 200mg tab NG SCH (08:29)
[2020-09-11] MEDS: Heparin 5000 units/ml inj SUBQ SCH ×2 (08:31→20:33)
--- NOTE | 2020-09-11 11:25 | Surgery Progress Note ---
Surgery Progress Note Subjective Procedure Performed trach Additional Comments no acute events Objective Last 24 Hour Vital Signs Date Time Temp Pulse Resp B/P (MAP) Pulse Ox O2 Delivery O2 Flow Rate FiO2 09/11/20 08:30 72 115/70 09/11/20 08:00 97.7 72 28 115/70 (85) 95 09/11/20 08:00 80 09/11/20 08:00 60 09/11/20 08:00 Mechanical Ventilator 09/11/20 07:08 83 30 98 Mechanical Ventilator 60 77 33 60 09/11/20 04:00 97.3 64 28 105/58 (74) 100 09/11/20 04:00 80 09/11/20 04:00 Mechanical Ventilator 09/11/20 03:50 74 09/11/20 02:58 69 28 100 Mechanical Ventilator 60 67 29 60 09/11/20 00:00 80 09/11/20 00:00 97.2 67 28 112/62 (79) 100 09/11/20 00:00 Mechanical Ventilator 09/10/20 23:45 65 09/10/20 23:06 64 31 100 Mechanical Ventilator 80 68 30 80 09/10/20 20:08 80 131/77 09/10/20 20:00 Mechanical Ventilator 09/10/20 20:00 96.8 84 28 134/66 (88) 100 09/10/20 20:00 80 09/10/20 19:33 78 09/10/20 19:12 79 28 100 Mechanical Ventilator 80 75 28 80 09/10/20 16:00 80 09/10/20 16:00 97.9 70 30 131/77 (95) 100 09/10/20 16:00 Mechanical Ventilator 09/10/20 15:28 71 29 100 Mechanical Ventilator 80 71 29 80 09/10/20 15:27 77 09/10/20 12:09 60 28 100 Mechanical Ventilator 80 62 28 80 09/10/20 12:01 77 09/10/20 12:00 97.9 64 30 121/93 (102) 100 09/10/20 12:00 Mechanical Ventilator 09/10/20 12:00 80 I&O Intake and Output 09/10/20 09/11/20 19:00 07:00 Intake Total 700 ml 1549 ml Output Total 350 ml Balance 700 ml 1199 ml Free Water 50 ml IV Total 300 ml 899 ml Tube Feeding 400 ml 600 ml Output Urine Total 350 ml Dressing: saturated Cardiovascular: RSR Respiratory: decreased breath sounds Abdomen: non-tender, present bowel sounds, non-distended Extremities: no tenderness, no cyanosis Laboratory Tests Test 09/11/20 02:45 Sodium Level 136 MMOL/L (136-145) Potassium Level 5.6 MMOL/L (3.5-5.1) H Chloride Level 105 MMOL/L (98-107) Carbon Dioxide Level 26 MMOL/L (21-32) Anion Gap 5 mmol/L (5-15) Blood Urea Nitrogen 77 mg/dL (7-18) H Creatinine 1.8 MG/DL (0.55-1.30) H Estimat Glomerular Filtration Rate 35.8 mL/min (>60) Glucose Level 150 MG/DL (74-106) H Calcium Level 7.6 MG/DL (8.5-10.1) L Plan Problems: (1) Pneumonia (2) Hypoxia (3) Sepsis Assessment & Plan: respiratory insufficiency prolonged ventilatory support failed weaning trials weaning vent as much as possible anticipate prolong vent support trach indicated and recommended will obtain consent plan for trach as able to wean thank you cont weaning will follow with recs s/p trach wean sedation wean vent no active bleeding noted h/h noted trend labs worsening prognosis guarded peg 09/08 cont tf (4) UTI (urinary tract infection) (5) Pneumonia (6) AMS (altered mental status) Isaias Loaiza Sep 11, 2020 11:25
[2020-09-11 12:00] VITALS: BP 104/60
--- NOTE | 2020-09-11 13:55 | NUR ---
NURSE NOTES:Dr Herman rounded on patient, informed him that patient has order for IV fluids due to low sodium, but that sodium is now in range and that I paused the fluids this morning while waiting to hear back from Dr Gilmore as patient has generalized edema and is weeping from the arms. Dr herman will place orders.
--- NOTE | 2020-09-11 15:13 | Infectious Diseases Prog Note ---
Assessment/Plan Assessment/Plan A: 1. Bilateral pneumonia treated 2. COVID-19 test is negative. 3. Urinary tract infection. 4. Hypertension. 5. Dementia. 6. Respiratory failure intubated 7. Parkinson's disease 8. Fungal UTI treated 9. Hyperkalemia 10. R elbow deep tissue injury PLAN: Observe off antibiotic Subjective ROS Limited/Unobtainable: Yes Constitutional: Denies: fever Allergies: Coded Allergies: VANCOMYCIN (Verified Allergy, Severe, hive, 08/27/20) Objective Last 24 Hour Vital Signs Date Time Temp Pulse Resp B/P (MAP) Pulse Ox O2 Delivery O2 Flow Rate FiO2 09/11/20 12:00 65 09/11/20 12:00 97.3 67 28 104/60 (75) 96 09/11/20 12:00 Mechanical Ventilator 09/11/20 12:00 60 09/11/20 10:41 59 28 100 Mechanical Ventilator 60 61 28 60 09/11/20 08:30 72 115/70 09/11/20 08:00 97.7 72 28 115/70 (85) 95 09/11/20 08:00 80 09/11/20 08:00 60 09/11/20 08:00 Mechanical Ventilator 09/11/20 07:08 83 30 98 Mechanical Ventilator 60 77 33 60 09/11/20 04:00 97.3 64 28 105/58 (74) 100 09/11/20 04:00 80 09/11/20 04:00 Mechanical Ventilator 09/11/20 03:50 74 09/11/20 02:58 69 28 100 Mechanical Ventilator 60 67 29 60 09/11/20 00:00 80 09/11/20 00:00 97.2 67 28 112/62 (79) 100 09/11/20 00:00 Mechanical Ventilator 09/10/20 23:45 65 09/10/20 23:06 64 31 100 Mechanical Ventilator 80 68 30 80 09/10/20 20:08 80 131/77 09/10/20 20:00 Mechanical Ventilator 09/10/20 20:00 96.8 84 28 134/66 (88) 100 09/10/20 20:00 80 09/10/20 19:33 78 09/10/20 19:12 79 28 100 Mechanical Ventilator 80 75 28 80 09/10/20 16:00 80 09/10/20 16:00 97.9 70 30 131/77 (95) 100 09/10/20 16:00 Mechanical Ventilator 09/10/20 15:28 71 29 100 Mechanical Ventilator 80 71 29 80 09/10/20 15:27 77 Height (Feet): 5 Height (Inches): 4.00 Weight (Pounds): 147 HEENT: status post trach, other - dry mouth Respiratory/Chest: decreased breath sounds, other - on ventilator Cardiovascular: normal rate Abdomen: soft, non tender, other - GT feeding Extremities: other - generalized edema Skin: other - R elbow Neurologic/Psychiatric: other - opens eyes Laboratory Tests Test 09/11/20 02:45 Sodium Level 136 MMOL/L (136-145) Potassium Level 5.6 MMOL/L (3.5-5.1) H Chloride Level 105 MMOL/L (98-107) Carbon Dioxide Level 26 MMOL/L (21-32) Anion Gap 5 mmol/L (5-15) Blood Urea Nitrogen 77 mg/dL (7-18) H Creatinine 1.8 MG/DL (0.55-1.30) H Estimat Glomerular Filtration Rate 35.8 mL/min (>60) Glucose Level 150 MG/DL (74-106) H Calcium Level 7.6 MG/DL (8.5-10.1) L Current Medications Medications (Trade) Dose Ordered Sig/Javon Route PRN Reason Start Time Stop Time Status Last Admin Dose Admin Albuterol/ Ipratropium (Albuterol/ Ipratropium) 3 ml Q4HRT HHN 09/07/20 11:00 09/12/20 10:59 09/11/20 10:31 Amiodarone HCl (Cordarone) 200 mg DAILY NG 09/04/20 09:00 11/15/20 08:59 09/11/20 08:29 Furosemide (Lasix) 40 mg ONCE IV 09/11/20 13:45 09/11/20 16:00 09/11/20 14:23 Heparin Sodium (Porcine) (Heparin 5000 units/ml) 5,000 units EVERY 12 HOURS SUBQ 08/03/20 09:00 09/17/20 08:59 09/11/20 08:31 Hydralazine HCl (Apresoline) 25 mg Q6H PRN NG SBP above 160 08/11/20 22:30 11/05/20 00:29 08/12/20 15:09 Lansoprazole (Prevacid) 30 mg DAILY NG 08/30/20 09:00 09/29/20 08:59 09/11/20 08:30 Metoclopramide HCl (Reglan) 5 mg Q8H PRN IVP Nausea & Vomiting 08/15/20 13:00 09/14/20 12:59 09/09/20 21:56 Metoprolol Tartrate (Lopressor) 25 mg Q12HR NG 08/13/20 09:00 11/11/20 08:59 09/11/20 08:30 Baldev Luo MD Sep 11, 2020 15:13
[2020-09-11 16:00] VITALS: BP 120/62
--- NOTE | 2020-09-11 16:13 | Pulmonology Progress Note ---
Subjective ROS Limited/Unobtainable: Yes Constitutional: Denies: fever Gastrointestinal/Abdominal: Reports: other - will have NG tube placement today Allergies: Coded Allergies: VANCOMYCIN (Verified Allergy, Severe, hive, 08/27/20) All Systems: reviewed and negative except above Objective Last 24 Hour Vital Signs Date Time Temp Pulse Resp B/P (MAP) Pulse Ox O2 Delivery O2 Flow Rate FiO2 09/11/20 16:00 72 09/11/20 15:53 Mechanical Ventilator 09/11/20 15:53 60 09/11/20 15:30 79 28 100 Mechanical Ventilator 60 79 28 60 09/11/20 12:00 65 09/11/20 12:00 97.3 67 28 104/60 (75) 96 09/11/20 12:00 Mechanical Ventilator 09/11/20 12:00 60 09/11/20 10:41 59 28 100 Mechanical Ventilator 60 61 28 60 09/11/20 08:30 72 115/70 09/11/20 08:00 97.7 72 28 115/70 (85) 95 09/11/20 08:00 80 09/11/20 08:00 60 09/11/20 08:00 Mechanical Ventilator 09/11/20 07:08 83 30 98 Mechanical Ventilator 60 77 33 60 09/11/20 04:00 97.3 64 28 105/58 (74) 100 09/11/20 04:00 80 09/11/20 04:00 Mechanical Ventilator 09/11/20 03:50 74 09/11/20 02:58 69 28 100 Mechanical Ventilator 60 67 29 60 09/11/20 00:00 80 09/11/20 00:00 97.2 67 28 112/62 (79) 100 09/11/20 00:00 Mechanical Ventilator 09/10/20 23:45 65 09/10/20 23:06 64 31 100 Mechanical Ventilator 80 68 30 80 09/10/20 20:08 80 131/77 09/10/20 20:00 Mechanical Ventilator 09/10/20 20:00 96.8 84 28 134/66 (88) 100 09/10/20 20:00 80 09/10/20 19:33 78 09/10/20 19:12 79 28 100 Mechanical Ventilator 80 75 28 80 Intake and Output 09/10/20 09/11/20 19:00 07:00 Intake Total 700 ml 1549 ml Output Total 350 ml Balance 700 ml 1199 ml Free Water 50 ml IV Total 300 ml 899 ml Tube Feeding 400 ml 600 ml Output Urine Total 350 ml Laboratory Tests 09/11/20 02:45: Sodium Level 136, Potassium Level 5.6H, Chloride Level 105, Carbon Dioxide Level 26, Anion Gap 5, Blood Urea Nitrogen 77H, Creatinine 1.8H, Estimat Glomerular Filtration Rate 35.8, Glucose Level 150H, Calcium Level 7.6L Current Medications Medications (Trade) Dose Ordered Sig/Javon Route PRN Reason Start Time Stop Time Status Last Admin Dose Admin Albuterol/ Ipratropium (Albuterol/ Ipratropium) 3 ml Q4HRT HHN 09/07/20 11:00 09/12/20 10:59 09/11/20 15:20 Amiodarone HCl (Cordarone) 200 mg DAILY NG 09/04/20 09:00 11/15/20 08:59 09/11/20 08:29 Heparin Sodium (Porcine) (Heparin 5000 units/ml) 5,000 units EVERY 12 HOURS SUBQ 08/03/20 09:00 09/17/20 08:59 09/11/20 08:31 Hydralazine HCl (Apresoline) 25 mg Q6H PRN NG SBP above 160 08/11/20 22:30 11/05/20 00:29 08/12/20 15:09 Lansoprazole (Prevacid) 30 mg DAILY NG 08/30/20 09:00 09/29/20 08:59 09/11/20 08:30 Metoclopramide HCl (Reglan) 5 mg Q8H PRN IVP Nausea & Vomiting 08/15/20 13:00 09/14/20 12:59 09/09/20 21:56 Metoprolol Tartrate (Lopressor) 25 mg Q12HR NG 08/13/20 09:00 11/11/20 08:59 09/11/20 08:30 Assessment/Plan Assessment/Plan Pulmonary Progress Note Subjective ROS Limited/Unobtainable: Yes Constitutional: Denies: fever Allergies: Coded Allergies: No Known Allergies (Unverified , 08/02/20) All Systems: reviewed and negative except above Subjective care noted on ventilator, elevatedCO2,high FIO2 diffuse infiltrates Objective Vital Signs noted Objective WDWN NAD reduced breath sounds bilaterally with scattered rhonchi [id number] NABS nontender no CCE nonfocal on BIPAP poorly responsive Laboratory Tests noted Medications noted Assessment/Plan Assessment/Plan ASSESSMENT: chronic encephalopathy, dementia, diffuse infiltrates, elevated BNP hypertension, recurrent falls, and urinary tract infection, hypoxemia, probable aspiration pneumonia. PLAN care noted respiratory care as is wean [id number] previously d/w family as to poor prognosis and consider terminal care on high oxygen needs repeat CXR and ABG noted palliative care recommended doubt any chance of recovery impression, plan, and exam edited and reviewed in detail care discussed with RN Sarkis Bangura MD Sep 11, 2020 16:13
--- NOTE | 2020-09-11 16:31 | General Progress Note ---
Subjective Allergies: Coded Allergies: VANCOMYCIN (Verified Allergy, Severe, hive, 08/27/20) Subjective above noted Non responsive on GT feeds Objective Last 24 Hour Vital Signs Date Time Temp Pulse Resp B/P (MAP) Pulse Ox O2 Delivery O2 Flow Rate FiO2 09/11/20 16:00 72 09/11/20 16:00 97.7 73 29 120/62 (81) 99 09/11/20 15:53 Mechanical Ventilator 09/11/20 15:53 60 09/11/20 15:30 79 28 100 Mechanical Ventilator 60 79 28 60 09/11/20 12:00 65 09/11/20 12:00 97.3 67 28 104/60 (75) 96 09/11/20 12:00 Mechanical Ventilator 09/11/20 12:00 60 09/11/20 10:41 59 28 100 Mechanical Ventilator 60 61 28 60 09/11/20 08:30 72 115/70 09/11/20 08:00 97.7 72 28 115/70 (85) 95 09/11/20 08:00 80 09/11/20 08:00 60 09/11/20 08:00 Mechanical Ventilator 09/11/20 07:08 83 30 98 Mechanical Ventilator 60 77 33 60 09/11/20 04:00 97.3 64 28 105/58 (74) 100 09/11/20 04:00 80 09/11/20 04:00 Mechanical Ventilator 09/11/20 03:50 74 09/11/20 02:58 69 28 100 Mechanical Ventilator 60 67 29 60 09/11/20 00:00 80 09/11/20 00:00 97.2 67 28 112/62 (79) 100 09/11/20 00:00 Mechanical Ventilator 09/10/20 23:45 65 09/10/20 23:06 64 31 100 Mechanical Ventilator 80 68 30 80 09/10/20 20:08 80 131/77 09/10/20 20:00 Mechanical Ventilator 09/10/20 20:00 96.8 84 28 134/66 (88) 100 09/10/20 20:00 80 09/10/20 19:33 78 09/10/20 19:12 79 28 100 Mechanical Ventilator 80 75 28 80 Intake and Output 09/10/20 09/11/20 19:00 07:00 Intake Total 700 ml 1549 ml Output Total 350 ml Balance 700 ml 1199 ml Free Water 50 ml IV Total 300 ml 899 ml Tube Feeding 400 ml 600 ml Output Urine Total 350 ml Laboratory Tests 09/11/20 02:45: Sodium Level 136, Potassium Level 5.6H, Chloride Level 105, Carbon Dioxide Level 26, Anion Gap 5, Blood Urea Nitrogen 77H, Creatinine 1.8H, Estimat Glomerular Filtration Rate 35.8, Glucose Level 150H, Calcium Level 7.6L Height (Feet): 5 Height (Inches): 4.00 Weight (Pounds): 147 Objective Elderly man unresponsive NCAT supple, (+) trach scattered ronchi RR abd soft, (+) GT trace edema Assessment/Plan Status: stable, not improved Assessment/Plan: Assessment - Leukocytosis - high K level - respiratory failure, s/p Trach - Parox a fib - acute myocardial ischemia - PNA/sepsis - dysphagia - s/p PEG - elevated glucose - poor prognosis Recommendations - change to low K TF formula - PEG care - ID follow up - Pulmonary toilet, vent care Arley Parks MD Sep 11, 2020 16:31
--- NOTE | 2020-09-11 16:40 | NUR ---
NURSE NOTES:g tube feeding changed to Nepro per MD order.
--- NOTE | 2020-09-11 19:15 | NUR ---
NURSE NOTES: Received report from BLANE Reis. Patient is awake, afebrile, obtunded, responds to deep tactile stimulation. In no apparent respiratory and cardiac distress noted. SR on ekg monitor tech with hr of 83bpm. Generalized edema on both upper and lower extremities, noted leaking of fluids on the skin. Trache to vent shiley 8, AC 28, TV 550, FiO2 60% and PEEP 10 saturating at 99%.With Gtube, intact, patent and flushed well running Nepro at 40cc/hr, no residual noted. Iv line on L forearm #22 SL, intact, patent and flushed well. With FC to urine bag draining ana lilia yellow urine and rectal tube draining well. Safety measures in place, bed in the lowest positioned and locked. Bed rails are up. Will continue to monitor the patient.
--- NOTE | 2020-09-11 19:45 | NUR ---
NURSE HAND-OFF REPORT: Important Events on Shift:patient weeping from edematous arms, MD Virgil angelo, Lasix one time given per MD order. Patient Status: Guarded Diet: Nepro@40ML/HR Pending Orders: Pending Results/Labs: Pending MD notification: Latest Vital Signs: Temperature 97.7 , Pulse 84 , B/P 120 /62 , Respiratory Rate 28 , O2 SAT 99 , Mechanical Ventilator, O2 Flow Rate 70.0 . Vital Sign Comment: EKG Rhythm: Sinus Rhythm Rhythm change?: N MD Notified?: N -Dr. Virgil KURTZ Response: Message left await call Latest José Fall Score: 75 Fall Risk: High Risk Safety Measures: Call light Within Reach, Bed Alarm Zone 1, Side Rails Side Rails x3, Bed position Low and Locked. Fall Precautions: Yellow Socks Yellow Gown Door Sign Patient Fall Education Report given to BLANE Burton. Addendum: 09/11/20 at 1948 by Chato Dawson RN handoff given to BLANE Starks.
[2020-09-11 20:00] VITALS: BP 125/71
[2020-09-12] VITALS: BP 116/84
--- NOTE | 2020-09-12 00:10 | NUR ---
NURSE NOTES: collected urine and dropped off at the lab.
[2020-09-12 00:55] LABS: APPEARANCE,URINE SLIGHTLY CLOUDY; BILIRUBIN, URINE NEGATIVE (NEGATIVE); COLOR,URINE PALE YELLOW; GLUCOSE, URINE (UA) NEGATIVE (NEGATIVE); KETONES,URINE NEGATIVE (NEGATIVE); LEUKOCYTE ESTERASE ,URINE NEGATIVE (NEGATIVE); NITRITE,URINE NEGATIVE (NEGATIVE); PH,URINE 5 (4.5-8.0); PROTEIN,URINE 1+ (NEGATIVE); UROBILINOGEN,URINE NORMAL MG/DL (0.0-1.0)
--- NOTE | 2020-09-12 01:49 | Cardiology Progress Note ---
Subjective DATE OF SERVICE: Sep 11, 2020 S/P PEG placement 09/08/20 Remains on vent via trach; O2 requirements remain high, but decreasing. No respiratory distress BP readings stable Increasing edema Monitor: sinus rhythm with no episodes of bradycardia. ABG (09/09) 7.26/63/168 CXR (09/10) unchanged bilateral infiltrates Objective Last 24 Hour Vital Signs Date Time Temp Pulse Resp B/P (MAP) Pulse Ox O2 Delivery O2 Flow Rate FiO2 09/12/20 00:00 97.9 70 28 116/84 (95) 98 09/12/20 00:00 Mechanical Ventilator 09/11/20 23:50 76 09/11/20 20:30 83 125/71 09/11/20 20:00 Mechanical Ventilator 09/11/20 20:00 97.5 83 26 125/71 (89) 97 09/11/20 20:00 60 09/11/20 19:27 89 09/11/20 18:51 84 28 100 Mechanical Ventilator 60 80 28 60 09/11/20 16:00 72 09/11/20 16:00 97.7 73 29 120/62 (81) 99 09/11/20 15:53 Mechanical Ventilator 09/11/20 15:53 60 09/11/20 15:30 79 28 100 Mechanical Ventilator 60 79 28 60 09/11/20 12:00 65 09/11/20 12:00 97.3 67 28 104/60 (75) 96 09/11/20 12:00 Mechanical Ventilator 09/11/20 12:00 60 09/11/20 10:41 59 28 100 Mechanical Ventilator 60 61 28 60 09/11/20 08:30 72 115/70 09/11/20 08:00 97.7 72 28 115/70 (85) 95 09/11/20 08:00 80 09/11/20 08:00 60 09/11/20 08:00 Mechanical Ventilator 09/11/20 07:08 83 30 98 Mechanical Ventilator 60 77 33 60 09/11/20 04:00 97.3 64 28 105/58 (74) 100 09/11/20 04:00 80 09/11/20 04:00 Mechanical Ventilator 09/11/20 03:50 74 09/11/20 02:58 69 28 100 Mechanical Ventilator 60 67 29 60 ROS: unchanged from my evaluation of 11/15/20 HEENT: Mechanically Ventilated, Thin Trach secretions RHYTHM: NSR, PACs, Afib LUNGS: bilateral rhonchi, trach site clean CARDIAC: normal S1 and S2, irregularly irregular, systolic murmur - 1/6 systolic murmurat apex, rapid rate ABDOMEN: normal bowel sounds, non tender, soft, no organomegaly, G-Tube intact EXTREMITIES: normal range of motion, +1 edema Laboratory Tests Test 09/11/20 02:45 09/11/20 23:48 Sodium Level 136 MMOL/L (136-145) Potassium Level 5.6 MMOL/L (3.5-5.1) H Chloride Level 105 MMOL/L (98-107) Carbon Dioxide Level 26 MMOL/L (21-32) Anion Gap 5 mmol/L (5-15) Blood Urea Nitrogen 77 mg/dL (7-18) H Creatinine 1.8 MG/DL (0.55-1.30) H Estimat Glomerular Filtration Rate 35.8 mL/min (>60) Glucose Level 150 MG/DL (74-106) H Calcium Level 7.6 MG/DL (8.5-10.1) L Urine Color Pale yellow Urine Appearance Slightly cloudy Urine pH 5 (4.5-8.0) Urine Specific Orgas 1.010 (1.005-1.035) Urine Protein 1+ (NEGATIVE) H Urine Glucose (UA) Negative (NEGATIVE) Urine Ketones Negative (NEGATIVE) Urine Blood 4+ (NEGATIVE) H Urine Nitrite Negative (NEGATIVE) Urine Bilirubin Negative (NEGATIVE) Urine Urobilinogen Normal MG/DL (0.0-1.0) Urine Leukocyte Esterase Negative (NEGATIVE) Urine RBC 10-15 /HPF (0 - 0) H Urine WBC 0-2 /HPF (0 - 0) Urine Squamous Epithelial Cells Occasional /LPF Urine Bacteria Occasional /HPF (NONE) Urine Yeast Few /HPF (NONE) H Assessment/Plan Assessment/Plan Status post uncomplicated PEG Paroxysmal atrial fibrillation with RVR Acute myocardial ischemia with elevated troponin Aspiration risk Sepsis Healthcare acquired PNA Complicated UTI with indwelling catheter Hyponatremia Severe protein calorie malnutrition Acute myocardial ischemia Respiratory failure with hypoxia and hypercarbia - now on mech ventilation Hyperkalemia Leukocytosis improving Ac/chronic diastolic CHF Dehydration/hypernatremia resolved into hyponatremia Hypokalemia Acute renal failure Occluded left cephalic vein Metabolic acidosis Anemia, multifactorial Trach care Diuresis; DC IVF. Antimicrobials per ID Vent support with setting sdjusted. Taper O2 more aggressively and monitor acid- base parameters. GTube feedings per GI DVT prophylaxis Continue amiodarone - maintenance dose; titrate beta katya. Replace lytes/Mg++ as needed. Titrate anti-HTN regimen as needed. PRBC tx as needed. Sarkis Herman MD Sep 12, 2020 01:49
--- NOTE | 2020-09-12 02:16 | NUR ---
NURSE NOTES: Pt in bed, in no apparent cardiac and respiratory distress noted. Bed bath given and gown changed. Oral care provided. Turned and repositioned pt. Tolerated the activity. Will continue to monitor pt.
[2020-09-12] MEDS: Albuterol/Ipratropium 3ml neb HHN SCH ×2 (03:00→07:00)
[2020-09-12 04:00] VITALS: BP 120/65
--- NOTE | 2020-09-12 04:15 | NUR ---
NURSE NOTES: Oral care provided, hard to removed the hard stain on the teeth because pt kept bitting the brush. Turned and repositioned pt. Will continue to monitor
[2020-09-12 05:29] LABS: HEMOGLOBIN 9.2 G/DL (14.2-18.0); MEAN CORPUSCULAR VOLUME 89 FL (80-99); PLATELET COUNT 108 K/UL (150-450); RED BLOOD COUNT 3.04 M/UL (4.70-6.10); RED CELL DISTRIBUTION WIDTH 13.5 % (11.6-14.8); WHITE BLOOD COUNT 21.8 K/UL (4.8-10.8)
[2020-09-12 06:24] LABS: ALBUMIN 0.7 G/DL (3.4-5.0); ALBUMIN/GLOBULIN RATIO 0.2 (1.0-2.7); BILIRUBIN,TOTAL 0.3 MG/DL (0.2-1.0); CALCIUM 7.7 MG/DL (8.5-10.1); POTASSIUM 5.2 MMOL/L (3.5-5.1)
--- NOTE | 2020-09-12 07:15 | NUR ---
NURSE NOTES: Received patient from BLANE Starks. patient is obtunded, opens eyes but no tracking. sinus rhythm on the monitor. trach to vent at prescribed settings, tolerating well. gtube and tube feeding running at prescribed rate, tolerating well. rectal tube and springer in place draining well to gravity. bed to lowest position and locked, side rails up x2, call light within easy reach. Will continue plan of care.
--- NOTE | 2020-09-12 07:43 | NUR ---
NURSE HAND-OFF REPORT: Important Events on Shift: Stable Patient Status: Stable Diet: Nepro @40 cc/hr Pending Orders: Pending Results/Labs: Pending MD notification: Latest Vital Signs: Temperature 97.7 , Pulse 71 , B/P 120 /65 , Respiratory Rate 28 , O2 SAT 98 , Mechanical Ventilator, O2 Flow Rate 70.0 . Vital Sign Comment: EKG Rhythm: Sinus Rhythm Rhythm change?: N MD Notified?: MD Response: Latest José Fall Score: 75 Fall Risk: High Risk Safety Measures: Call light Within Reach, Bed Alarm Zone 1, Side Rails Side Rails x3, Bed position Low and Locked. Fall Precautions: Yellow Socks Yellow Gown Door Sign Patient Fall Education Report given to BLANE Bravo.
[2020-09-12 08:00] VITALS: BP 115/67
[2020-09-12] MEDS: Amiodarone 200mg tab NG SCH (08:47)
[2020-09-12] MEDS: Heparin 5000 units/ml inj SUBQ SCH ×2 (08:49→23:19)
--- NOTE | 2020-09-12 09:15 | NUR ---
NURSE NOTES: noted patient WBC 21.8, trending up. Baldev Logan rounded. aware and acknowledged
--- NOTE | 2020-09-12 10:03 | Infectious Diseases Prog Note ---
Assessment/Plan Assessment/Plan A: 1. Bilateral pneumonia 2. COVID-19 test is negative. 3. Urinary tract infection. 4. Hypertension. 5. Dementia. 6. Respiratory failure intubated 7. Parkinson's disease 8. Fungal UTI treated 9. Hyperkalemia 10. R elbow deep tissue injury 11. Leukocytosis, worsening PLAN: Sputum culture, UA & urine culture Start on Cefepime Subjective ROS Limited/Unobtainable: Yes Constitutional: Denies: fever Allergies: Coded Allergies: VANCOMYCIN (Verified Allergy, Severe, hive, 08/27/20) Objective Last 24 Hour Vital Signs Date Time Temp Pulse Resp B/P (MAP) Pulse Ox O2 Delivery O2 Flow Rate FiO2 09/12/20 08:47 95 115/67 09/12/20 08:00 97.7 95 20 115/67 (83) 98 09/12/20 07:15 77 26 60 09/12/20 04:00 60 09/12/20 04:00 Mechanical Ventilator 09/12/20 04:00 97.7 71 28 120/65 (83) 98 09/12/20 03:56 69 09/12/20 01:15 76 28 60 09/12/20 00:00 97.9 70 28 116/84 (95) 98 09/12/20 00:00 Mechanical Ventilator 09/11/20 23:50 76 09/11/20 20:30 83 125/71 09/11/20 20:00 Mechanical Ventilator 09/11/20 20:00 97.5 83 26 125/71 (89) 97 09/11/20 20:00 60 09/11/20 19:27 89 09/11/20 18:51 84 28 100 Mechanical Ventilator 60 80 28 60 09/11/20 16:00 72 09/11/20 16:00 97.7 73 29 120/62 (81) 99 09/11/20 15:53 Mechanical Ventilator 09/11/20 15:53 60 09/11/20 15:30 79 28 100 Mechanical Ventilator 60 79 28 60 09/11/20 12:00 65 09/11/20 12:00 97.3 67 28 104/60 (75) 96 09/11/20 12:00 Mechanical Ventilator 09/11/20 12:00 60 09/11/20 10:41 59 28 100 Mechanical Ventilator 60 61 28 60 Height (Feet): 5 Height (Inches): 4.00 Weight (Pounds): 147 HEENT: status post trach Respiratory/Chest: lungs clear, other - on ventilator Cardiovascular: normal rate Abdomen: soft, non tender, other - GT feeding, Rectal tube Extremities: other - generalized edema Skin: ulcers, other - elbows R>L Neurologic/Psychiatric: aphasia, other - opens eyes Laboratory Tests Test 09/11/20 23:48 09/12/20 05:00 Urine Color Pale yellow Urine Appearance Slightly cloudy Urine pH 5 (4.5-8.0) Urine Specific [place] 1.010 (1.005-1.035) Urine Protein 1+ (NEGATIVE) H Urine Glucose (UA) Negative (NEGATIVE) Urine Ketones Negative (NEGATIVE) Urine Blood 4+ (NEGATIVE) H Urine Nitrite Negative (NEGATIVE) Urine Bilirubin Negative (NEGATIVE) Urine Urobilinogen Normal MG/DL (0.0-1.0) Urine Leukocyte Esterase Negative (NEGATIVE) Urine RBC 10-15 /HPF (0 - 0) H Urine WBC 0-2 /HPF (0 - 0) Urine Squamous Epithelial Cells Occasional /LPF Urine Bacteria Occasional /HPF (NONE) Urine Yeast Few /HPF (NONE) H White Blood Count 21.8 K/UL (4.8-10.8) H Red Blood Count 3.04 M/UL (4.70-6.10) L Hemoglobin 9.2 G/DL (14.2-18.0) L Hematocrit 27.0 % (42.0-52.0) L Mean Corpuscular Volume 89 FL (80-99) Mean Corpuscular Hemoglobin 30.4 PG (27.0-31.0) Mean Corpuscular Hemoglobin Concent 34.2 G/DL (32.0-36.0) Red Cell Distribution Width 13.5 % (11.6-14.8) Platelet Count 108 K/UL (150-450) L Mean Platelet Volume 10.2 FL (6.5-10.1) H Neutrophils (%) (Auto) % (45.0-75.0) Lymphocytes (%) (Auto) % (20.0-45.0) Monocytes (%) (Auto) % (1.0-10.0) Eosinophils (%) (Auto) % (0.0-3.0) Basophils (%) (Auto) % (0.0-2.0) Differential Total Cells Counted 100 Neutrophils % (Manual) 92 % (45-75) H Lymphocytes % (Manual) 5 % (20-45) L Monocytes % (Manual) 2 % (1-10) Eosinophils % (Manual) 0 % (0-3) Basophils % (Manual) 0 % (0-2) Band Neutrophils 1 % (0-8) Platelet Estimate Decreased L Platelet Morphology Normal Hypochromasia 1+ Sodium Level 137 MMOL/L (136-145) Potassium Level 5.2 MMOL/L (3.5-5.1) H Chloride Level 106 MMOL/L (98-107) Carbon Dioxide Level 27 MMOL/L (21-32) Anion Gap 4 mmol/L (5-15) L Blood Urea Nitrogen 84 mg/dL (7-18) H Creatinine 2.0 MG/DL (0.55-1.30) H Estimat Glomerular Filtration Rate 31.7 mL/min (>60) Glucose Level 140 MG/DL (74-106) H Calcium Level 7.7 MG/DL (8.5-10.1) L Magnesium Level 2.6 MG/DL (1.8-2.4) H Total Bilirubin 0.3 MG/DL (0.2-1.0) Aspartate Amino Transf (AST/SGOT) 27 U/L (15-37) Alanine Aminotransferase (ALT/SGPT) 38 U/L (12-78) Alkaline Phosphatase 172 U/L (46-116) H Pro-B-Type Natriuretic Peptide 8635 pg/mL (0-125) H Total Protein 5.0 G/DL (6.4-8.2) L Albumin 0.7 G/DL (3.4-5.0) L Globulin 4.3 g/dL Albumin/Globulin Ratio 0.2 (1.0-2.7) L Current Medications Medications (Trade) Dose Ordered Sig/Javon Route PRN Reason Start Time Stop Time Status Last Admin Dose Admin Albuterol/ Ipratropium (Albuterol/ Ipratropium) 3 ml Q4HRT HHN 09/07/20 11:00 09/12/20 10:59 09/11/20 18:50 Amiodarone HCl (Cordarone) 200 mg DAILY NG 09/04/20 09:00 11/15/20 08:59 09/12/20 08:47 Heparin Sodium (Porcine) (Heparin 5000 units/ml) 5,000 units EVERY 12 HOURS SUBQ 08/03/20 09:00 09/17/20 08:59 09/12/20 08:49 Hydralazine HCl (Apresoline) 25 mg Q6H PRN NG SBP above 160 08/11/20 22:30 11/05/20 00:29 08/12/20 15:09 Lansoprazole (Prevacid) 30 mg DAILY NG 08/30/20 09:00 09/29/20 08:59 09/12/20 08:47 Metoclopramide HCl (Reglan) 5 mg Q8H PRN IVP Nausea & Vomiting 08/15/20 13:00 09/14/20 12:59 09/09/20 21:56 Metoprolol Tartrate (Lopressor) 25 mg Q12HR NG 08/13/20 09:00 11/11/20 08:59 09/12/20 08:47 Baldev Luo MD Sep 12, 2020 10:03
--- NOTE | 2020-09-12 10:08 | General Progress Note ---
Subjective ROS Limited/Unobtainable: No Allergies: Coded Allergies: VANCOMYCIN (Verified Allergy, Severe, hive, 08/27/20) Objective Last 24 Hour Vital Signs Date Time Temp Pulse Resp B/P (MAP) Pulse Ox O2 Delivery O2 Flow Rate FiO2 09/12/20 08:47 95 115/67 09/12/20 08:00 97.7 95 20 115/67 (83) 98 09/12/20 07:15 77 26 60 09/12/20 04:00 60 09/12/20 04:00 Mechanical Ventilator 09/12/20 04:00 97.7 71 28 120/65 (83) 98 09/12/20 03:56 69 09/12/20 01:15 76 28 60 09/12/20 00:00 97.9 70 28 116/84 (95) 98 09/12/20 00:00 Mechanical Ventilator 09/11/20 23:50 76 09/11/20 20:30 83 125/71 09/11/20 20:00 Mechanical Ventilator 09/11/20 20:00 97.5 83 26 125/71 (89) 97 09/11/20 20:00 60 09/11/20 19:27 89 09/11/20 18:51 84 28 100 Mechanical Ventilator 60 80 28 60 09/11/20 16:00 72 09/11/20 16:00 97.7 73 29 120/62 (81) 99 09/11/20 15:53 Mechanical Ventilator 09/11/20 15:53 60 09/11/20 15:30 79 28 100 Mechanical Ventilator 60 79 28 60 09/11/20 12:00 65 09/11/20 12:00 97.3 67 28 104/60 (75) 96 09/11/20 12:00 Mechanical Ventilator 09/11/20 12:00 60 09/11/20 10:41 59 28 100 Mechanical Ventilator 60 61 28 60 Intake and Output 09/11/20 09/12/20 19:00 07:00 Intake Total 670 ml 540 ml Output Total 450 ml 1050 ml Balance 220 ml -510 ml Free Water 60 ml 100 ml Tube Feeding 610 ml 440 ml Output Urine Total 450 ml 750 ml Stool Total 300 ml Laboratory Tests 09/11/20 23:48: Urine Color Pale yellow, Urine Appearance Slightly cloudy, Urine pH 5, Urine Specific [place] 1.010, Urine Protein 1+H, Urine Glucose (UA) Negative, Urine Ketones Negative, Urine Blood 4+H, Urine Nitrite Negative, Urine Bilirubin Negative, Urine Urobilinogen Normal, Urine Leukocyte Esterase Negative, Urine RBC 10-15H, Urine WBC 0-2, Urine Squamous Epithelial Cells Occasional, Urine Bacteria Occasional, Urine Yeast FewH 09/12/20 05:00: White Blood Count 21.8H, Red Blood Count 3.04L, Hemoglobin 9.2L, Hematocrit 27.0L, Mean Corpuscular Volume 89, Mean Corpuscular Hemoglobin 30.4, Mean Corpuscular Hemoglobin Concent 34.2, Red Cell Distribution Width 13.5, Platelet Count 108L, Mean Platelet Volume 10.2H, Neutrophils (%) (Auto) , Lymphocytes (%) (Auto) , Monocytes (%) (Auto) , Eosinophils (%) (Auto) , Basophils (%) (Auto) , Differential Total Cells Counted 100, Neutrophils % (Manual) 92H, Lymphocytes % (Manual) 5L, Monocytes % (Manual) 2, Eosinophils % (Manual) 0, Basophils % (Manual) 0, Band Neutrophils 1, Platelet Estimate DecreasedL, Platelet Morphology Normal, Hypochromasia 1+, Sodium Level 137, Potassium Level 5.2H, Chloride Level 106, Carbon Dioxide Level 27, Anion Gap 4L, Blood Urea Nitrogen 84H, Creatinine 2.0H, Estimat Glomerular Filtration Rate 31.7, Glucose Level 140H, Calcium Level 7.7L, Magnesium Level 2.6H, Total Bilirubin 0.3, Aspartate Amino Transf (AST/SGOT) 27, Alanine Aminotransferase (ALT/SGPT) 38, Alkaline Phosphatase 172H, Pro-B-Type Natriuretic Peptide 8635H, Total Protein 5.0L, Albumin 0.7L, Globulin 4.3, Albumin/Globulin Ratio 0.2L Height (Feet): 5 Height (Inches): 4.00 Weight (Pounds): 147 General Appearance: no apparent distress EENT: PERRL/EOMI Neck: supple Cardiovascular: normal rate Respiratory/Chest: decreased breath sounds Abdomen: normal bowel sounds, non tender, soft Extremities: non-tender Assessment/Plan Status: stable, not improved Assessment/Plan: Assessment/Plan Status: stable, not improved Assessment/Plan: Assessment - Leukocytosis - better - respiratory failure, s/p Trach - Parox a fib - acute myocardial ischemia - PNA/sepsis - dysphagia - elevated glucose - poor prognosis Recommendations - glucerna TF - Increase rate to meet demands - s/p PEG -monitor for residuals - ID follow up - Pulmonary toilet Thomas Dorsey MD Sep 12, 2020 10:08
[2020-09-12 12:00] VITALS: BP 119/72
[2020-09-12] MEDS: Cefepime HCl 1 GM in D5W 55 ML IVPB SCH (12:08)
--- NOTE | 2020-09-12 13:16 | NUR ---
NURSE NOTES: Noted patient potassium is 5.2. contacted Dr. Herman. waiting for call back
--- NOTE | 2020-09-12 13:59 | Surgery Progress Note ---
Surgery Progress Note Subjective Procedure Performed trach Additional Comments no acute events Objective Last 24 Hour Vital Signs Date Time Temp Pulse Resp B/P (MAP) Pulse Ox O2 Delivery O2 Flow Rate FiO2 09/12/20 12:00 60 09/12/20 12:00 80 09/12/20 12:00 Mechanical Ventilator 09/12/20 12:00 98.5 94 30 119/72 (88) 97 09/12/20 08:47 95 115/67 09/12/20 08:00 93 09/12/20 08:00 60 09/12/20 08:00 97.7 95 20 115/67 (83) 98 09/12/20 08:00 Mechanical Ventilator 09/12/20 07:15 77 26 60 09/12/20 04:00 60 09/12/20 04:00 Mechanical Ventilator 09/12/20 04:00 97.7 71 28 120/65 (83) 98 09/12/20 03:56 69 09/12/20 01:15 76 28 60 09/12/20 00:00 97.9 70 28 116/84 (95) 98 09/12/20 00:00 Mechanical Ventilator 09/11/20 23:50 76 09/11/20 20:30 83 125/71 09/11/20 20:00 Mechanical Ventilator 09/11/20 20:00 97.5 83 26 125/71 (89) 97 09/11/20 20:00 60 09/11/20 19:27 89 09/11/20 18:51 84 28 100 Mechanical Ventilator 60 80 28 60 09/11/20 16:00 72 09/11/20 16:00 97.7 73 29 120/62 (81) 99 09/11/20 15:53 Mechanical Ventilator 09/11/20 15:53 60 09/11/20 15:30 79 28 100 Mechanical Ventilator 60 79 28 60 I&O Intake and Output 09/11/20 09/12/20 19:00 07:00 Intake Total 670 ml 540 ml Output Total 450 ml 1050 ml Balance 220 ml -510 ml Free Water 60 ml 100 ml Tube Feeding 610 ml 440 ml Output Urine Total 450 ml 750 ml Stool Total 300 ml Dressing: saturated Cardiovascular: RSR Respiratory: decreased breath sounds Abdomen: soft, non-tender, present bowel sounds Extremities: no edema, no tenderness, no cyanosis Laboratory Tests Test 09/11/20 23:48 09/12/20 05:00 Urine Color Pale yellow Urine Appearance Slightly cloudy Urine pH 5 (4.5-8.0) Urine Specific [place] 1.010 (1.005-1.035) Urine Protein 1+ (NEGATIVE) H Urine Glucose (UA) Negative (NEGATIVE) Urine Ketones Negative (NEGATIVE) Urine Blood 4+ (NEGATIVE) H Urine Nitrite Negative (NEGATIVE) Urine Bilirubin Negative (NEGATIVE) Urine Urobilinogen Normal MG/DL (0.0-1.0) Urine Leukocyte Esterase Negative (NEGATIVE) Urine RBC 10-15 /HPF (0 - 0) H Urine WBC 0-2 /HPF (0 - 0) Urine Squamous Epithelial Cells Occasional /LPF Urine Bacteria Occasional /HPF (NONE) Urine Yeast Few /HPF (NONE) H White Blood Count 21.8 K/UL (4.8-10.8) H Red Blood Count 3.04 M/UL (4.70-6.10) L Hemoglobin 9.2 G/DL (14.2-18.0) L Hematocrit 27.0 % (42.0-52.0) L Mean Corpuscular Volume 89 FL (80-99) Mean Corpuscular Hemoglobin 30.4 PG (27.0-31.0) Mean Corpuscular Hemoglobin Concent 34.2 G/DL (32.0-36.0) Red Cell Distribution Width 13.5 % (11.6-14.8) Platelet Count 108 K/UL (150-450) L Mean Platelet Volume 10.2 FL (6.5-10.1) H Neutrophils (%) (Auto) % (45.0-75.0) Lymphocytes (%) (Auto) % (20.0-45.0) Monocytes (%) (Auto) % (1.0-10.0) Eosinophils (%) (Auto) % (0.0-3.0) Basophils (%) (Auto) % (0.0-2.0) Differential Total Cells Counted 100 Neutrophils % (Manual) 92 % (45-75) H Lymphocytes % (Manual) 5 % (20-45) L Monocytes % (Manual) 2 % (1-10) Eosinophils % (Manual) 0 % (0-3) Basophils % (Manual) 0 % (0-2) Band Neutrophils 1 % (0-8) Platelet Estimate Decreased L Platelet Morphology Normal Hypochromasia 1+ Sodium Level 137 MMOL/L (136-145) Potassium Level 5.2 MMOL/L (3.5-5.1) H Chloride Level 106 MMOL/L (98-107) Carbon Dioxide Level 27 MMOL/L (21-32) Anion Gap 4 mmol/L (5-15) L Blood Urea Nitrogen 84 mg/dL (7-18) H Creatinine 2.0 MG/DL (0.55-1.30) H Estimat Glomerular Filtration Rate 31.7 mL/min (>60) Glucose Level 140 MG/DL (74-106) H Calcium Level 7.7 MG/DL (8.5-10.1) L Magnesium Level 2.6 MG/DL (1.8-2.4) H Total Bilirubin 0.3 MG/DL (0.2-1.0) Aspartate Amino Transf (AST/SGOT) 27 U/L (15-37) Alanine Aminotransferase (ALT/SGPT) 38 U/L (12-78) Alkaline Phosphatase 172 U/L (46-116) H Pro-B-Type Natriuretic Peptide 8635 pg/mL (0-125) H Total Protein 5.0 G/DL (6.4-8.2) L Albumin 0.7 G/DL (3.4-5.0) L Globulin 4.3 g/dL Albumin/Globulin Ratio 0.2 (1.0-2.7) L Plan Problems: (1) Pneumonia (2) Hypoxia (3) Sepsis Assessment & Plan: respiratory insufficiency prolonged ventilatory support failed weaning trials weaning vent as much as possible anticipate prolong vent support trach indicated and recommended will obtain consent plan for trach as able to wean thank you cont weaning will follow with recs s/p trach wean sedation wean vent no active bleeding noted h/h noted trend labs worsening prognosis guarded peg 09/08 cont tf (4) UTI (urinary tract infection) (5) Pneumonia (6) AMS (altered mental status) Isaias Loaiza Sep 12, 2020 13:59
[2020-09-12 16:00] VITALS: BP 119/61
--- NOTE | 2020-09-12 19:30 | NUR ---
NURSE HAND-OFF REPORT: Important Events on Shift: remains stable Patient Status: full code Diet: nepro @40ml/hr Pending Orders: [] Pending Results/Labs:[] Pending MD notification:[] Latest Vital Signs: Temperature 98.2 , Pulse 87 , B/P 119 /61 , Respiratory Rate 30 , O2 SAT 100 , Mechanical Ventilator, O2 Flow Rate 70.0 . Vital Sign Comment: stable EKG Rhythm: Sinus Rhythm Rhythm change?: N Notified?: N -Dr. Virgil KURTZ Response: Message left await call Latest José Fall Score: 75 Fall Risk: High Risk Safety Measures: Call light Within Reach, Bed Alarm Zone 1, Side Rails Side Rails x3, Bed position Low and Locked. Fall Precautions: Yellow Socks Yellow Gown Door Sign Patient Fall Education Report given to Jose Rafael Charge nurse.
--- NOTE | 2020-09-12 19:30 | NUR ---
NURSE NOTES: Received pt in bed. In no apparent distress. Respirations even and unlabored. Patient is trach to vent and tolerating well. GT feeding of nepro at 40 cc/hr. w/nor residual noted. SR on automatic profile shaper operator. HOB elevated, bed is on lowest position, locked, side rails up, call light within reach. Patient will continue to be monitored.
[2020-09-12 20:00] VITALS: BP 103/52
--- NOTE | 2020-09-12 20:07 | Pulmonology Progress Note ---
Subjective ROS Limited/Unobtainable: No Constitutional: Denies: fever Gastrointestinal/Abdominal: Reports: other - will have NG tube placement today Allergies: Coded Allergies: VANCOMYCIN (Verified Allergy, Severe, hive, 08/27/20) All Systems: reviewed and negative except above Objective Last 24 Hour Vital Signs Date Time Temp Pulse Resp B/P (MAP) Pulse Ox O2 Delivery O2 Flow Rate FiO2 09/12/20 16:00 Mechanical Ventilator 09/12/20 16:00 60 09/12/20 16:00 87 09/12/20 16:00 98.2 85 30 119/61 (80) 100 09/12/20 13:15 88 29 60 09/12/20 12:00 60 09/12/20 12:00 80 09/12/20 12:00 Mechanical Ventilator 09/12/20 12:00 98.5 94 30 119/72 (88) 97 09/12/20 08:47 95 115/67 09/12/20 08:00 93 09/12/20 08:00 60 09/12/20 08:00 97.7 95 20 115/67 (83) 98 09/12/20 08:00 Mechanical Ventilator 09/12/20 07:15 77 26 60 09/12/20 04:00 60 09/12/20 04:00 Mechanical Ventilator 09/12/20 04:00 97.7 71 28 120/65 (83) 98 09/12/20 03:56 69 09/12/20 01:15 76 28 60 09/12/20 00:00 97.9 70 28 116/84 (95) 98 09/12/20 00:00 Mechanical Ventilator 09/11/20 23:50 76 09/11/20 20:30 83 125/71 Intake and Output 09/11/20 09/12/20 19:00 07:00 Intake Total 670 ml 580 ml Output Total 450 ml 1050 ml Balance 220 ml -470 ml Free Water 60 ml 100 ml Tube Feeding 610 ml 480 ml Output Urine Total 450 ml 750 ml Stool Total 300 ml Laboratory Tests 09/11/20 23:48: Urine Color Pale yellow, Urine Appearance Slightly cloudy, Urine pH 5, Urine Specific [place] 1.010, Urine Protein 1+H, Urine Glucose (UA) Negative, Urine Ketones Negative, Urine Blood 4+H, Urine Nitrite Negative, Urine Bilirubin Negative, Urine Urobilinogen Normal, Urine Leukocyte Esterase Negative, Urine RBC 10-15H, Urine WBC 0-2, Urine Squamous Epithelial Cells Occasional, Urine Bacteria Occasional, Urine Yeast FewH 09/12/20 05:00: White Blood Count 21.8H, Red Blood Count 3.04L, Hemoglobin 9.2L, Hematocrit 27.0L, Mean Corpuscular Volume 89, Mean Corpuscular Hemoglobin 30.4, Mean Corpuscular Hemoglobin Concent 34.2, Red Cell Distribution Width 13.5, Platelet Count 108L, Mean Platelet Volume 10.2H, Neutrophils (%) (Auto) , Lymphocytes (%) (Auto) , Monocytes (%) (Auto) , Eosinophils (%) (Auto) , Basophils (%) (Auto) , Differential Total Cells Counted 100, Neutrophils % (Manual) 92H, Lymphocytes % (Manual) 5L, Monocytes % (Manual) 2, Eosinophils % (Manual) 0, Basophils % (Manual) 0, Band Neutrophils 1, Platelet Estimate DecreasedL, Platelet Morphology Normal, Hypochromasia 1+, Sodium Level 137, Potassium Level 5.2H, Chloride Level 106, Carbon Dioxide Level 27, Anion Gap 4L, Blood Urea Nitrogen 84H, Creatinine 2.0H, Estimat Glomerular Filtration Rate 31.7, Glucose Level 140H, Calcium Level 7.7L, Magnesium Level 2.6H, Total Bilirubin 0.3, Aspartate Amino Transf (AST/SGOT) 27, Alanine Aminotransferase (ALT/SGPT) 38, Alkaline Phosphatase 172H, Pro-B-Type Natriuretic Peptide 8635H, Total Protein 5.0L, Albumin 0.7L, Globulin 4.3, Albumin/Globulin Ratio 0.2L Current Medications Medications (Trade) Dose Ordered Sig/Javon Route PRN Reason Start Time Stop Time Status Last Admin Dose Admin Amiodarone HCl (Cordarone) 200 mg DAILY NG 09/04/20 09:00 11/15/20 08:59 09/12/20 08:47 Cefepime HCl 1 gm/ Dextrose 55 ml @ 110 mls/hr Q24H IVPB 09/12/20 12:00 09/19/20 11:59 09/12/20 12:08 Heparin Sodium (Porcine) (Heparin 5000 units/ml) 5,000 units EVERY 12 HOURS SUBQ 08/03/20 09:00 09/17/20 08:59 09/12/20 08:49 Hydralazine HCl (Apresoline) 25 mg Q6H PRN NG SBP above 160 08/11/20 22:30 11/05/20 00:29 08/12/20 15:09 Lansoprazole (Prevacid) 30 mg DAILY NG 08/30/20 09:00 09/29/20 08:59 09/12/20 08:47 Metoclopramide HCl (Reglan) 5 mg Q8H PRN IVP Nausea & Vomiting 08/15/20 13:00 09/14/20 12:59 09/09/20 21:56 Metoprolol Tartrate (Lopressor) 25 mg Q12HR NG 08/13/20 09:00 11/11/20 08:59 09/12/20 08:47 Assessment/Plan Assessment/Plan Pulmonary Progress Note Subjective ROS Limited/Unobtainable: Yes Constitutional: Denies: fever Allergies: Coded Allergies: No Known Allergies (Unverified , 08/02/20) All Systems: reviewed and negative except above Subjective care noted on ventilator, elevatedCO2, FIO2 60% diffuse infiltrates Objective Vital Signs noted Objective WDWN NAD reduced breath sounds bilaterally [id number] NABS nontender no CCE nonfocal on BIPAP poorly responsive Laboratory Tests noted Medications noted Assessment/Plan Assessment/Plan ASSESSMENT: chronic encephalopathy, dementia, diffuse infiltrates, elevated BNP hypertension, recurrent falls, and urinary tract infection, hypoxemia, probable aspiration pneumonia. PLAN care noted respiratory care as is wean [id number] previously d/w family as to poor prognosis and consider terminal care on high oxygen needs repeat CXR and ABG noted palliative care recommended doubt any chance of recovery impression, plan, and exam edited and reviewed in detail care discussed with Sarkis Samano MD Sep 12, 2020 20:07
[2020-09-13] VITALS: BP 88/41
[2020-09-13 04:00] VITALS: BP 112/74
--- NOTE | 2020-09-13 04:00 | NUR ---
NURSE NOTES: No significant changes in condition. No apparent distress. Respirations even and unlabored. Tolerating vent setting well. GT feeding of nepro at 40 cc/hr. w/nor residual noted. SR on monitoring engineer. HOB elevated, bed is on lowest position, locked, side rails up, call light within reach. Patient will continue to be monitored.
--- NOTE | 2020-09-13 04:09 | Cardiology Progress Note ---
Subjective DATE OF SERVICE: Sep 12, 2020 Rising WBC and drop in BP range noted. S/P PEG placement 09/08/20 Remains on vent via trach; O2 requirements remain high, but decreasing. No respiratory distress Monitor: sinus rhythm with no episodes of bradycardia. ABG (09/09) 7./63/168 CXR (09/10) unchanged bilateral infiltrates Objective Last 24 Hour Vital Signs Date Time Temp Pulse Resp B/P (MAP) Pulse Ox O2 Delivery O2 Flow Rate FiO2 09/13/20 02:00 83 28 60 09/13/20 00:00 98.2 97 20 88/41 (57) 97 09/13/20 00:00 97 09/13/20 00:00 60 09/13/20 00:00 Mechanical Ventilator 09/12/20 21:00 101 103/52 09/12/20 20:00 101 09/12/20 20:00 97.0 101 22 103/52 (69) 97 09/12/20 20:00 Mechanical Ventilator 09/12/20 20:00 97 31 60 09/12/20 20:00 60 09/12/20 16:00 Mechanical Ventilator 09/12/20 16:00 60 09/12/20 16:00 87 09/12/20 16:00 98.2 85 30 119/61 (80) 100 09/12/20 13:15 88 29 60 09/12/20 12:00 60 09/12/20 12:00 80 09/12/20 12:00 Mechanical Ventilator 09/12/20 12:00 98.5 94 30 119/72 (88) 97 09/12/20 08:47 95 115/67 09/12/20 08:00 93 09/12/20 08:00 60 09/12/20 08:00 97.7 95 20 115/67 (83) 98 09/12/20 08:00 Mechanical Ventilator 09/12/20 07:15 77 26 60 ROS: unchanged from my evaluation of 08/02/20 HEENT: Mechanically Ventilated, Thin Trach secretions RHYTHM: NSR, PACs, Afib LUNGS: bilateral rhonchi, trach site clean CARDIAC: normal S1 and S2, irregularly irregular, systolic murmur - 1/6 systolic murmurat apex, rapid rate ABDOMEN: normal bowel sounds, non tender, soft, no organomegaly, G-Tube intact EXTREMITIES: normal range of motion, +1 edema Laboratory Tests Test 09/12/20 05:00 White Blood Count 21.8 K/UL (4.8-10.8) H Red Blood Count 3.04 M/UL (4.70-6.10) L Hemoglobin 9.2 G/DL (14.2-18.0) L Hematocrit 27.0 % (42.0-52.0) L Mean Corpuscular Volume 89 FL (80-99) Mean Corpuscular Hemoglobin 30.4 PG (27.0-31.0) Mean Corpuscular Hemoglobin Concent 34.2 G/DL (32.0-36.0) Red Cell Distribution Width 13.5 % (11.6-14.8) Platelet Count 108 K/UL (150-450) L Mean Platelet Volume 10.2 FL (6.5-10.1) H Neutrophils (%) (Auto) % (45.0-75.0) Lymphocytes (%) (Auto) % (20.0-45.0) Monocytes (%) (Auto) % (1.0-10.0) Eosinophils (%) (Auto) % (0.0-3.0) Basophils (%) (Auto) % (0.0-2.0) Differential Total Cells Counted 100 Neutrophils % (Manual) 92 % (45-75) H Lymphocytes % (Manual) 5 % (20-45) L Monocytes % (Manual) 2 % (1-10) Eosinophils % (Manual) 0 % (0-3) Basophils % (Manual) 0 % (0-2) Band Neutrophils 1 % (0-8) Platelet Estimate Decreased L Platelet Morphology Normal Hypochromasia 1+ Sodium Level 137 MMOL/L (136-145) Potassium Level 5.2 MMOL/L (3.5-5.1) H Chloride Level 106 MMOL/L (98-107) Carbon Dioxide Level 27 MMOL/L (21-32) Anion Gap 4 mmol/L (5-15) L Blood Urea Nitrogen 84 mg/dL (7-18) H Creatinine 2.0 MG/DL (0.55-1.30) H Estimat Glomerular Filtration Rate 31.7 mL/min (>60) Glucose Level 140 MG/DL (74-106) H Calcium Level 7.7 MG/DL (8.5-10.1) L Magnesium Level 2.6 MG/DL (1.8-2.4) H Total Bilirubin 0.3 MG/DL (0.2-1.0) Aspartate Amino Transf (AST/SGOT) 27 U/L (15-37) Alanine Aminotransferase (ALT/SGPT) 38 U/L (12-78) Alkaline Phosphatase 172 U/L (46-116) H Pro-B-Type Natriuretic Peptide 8635 pg/mL (0-125) H Total Protein 5.0 G/DL (6.4-8.2) L Albumin 0.7 G/DL (3.4-5.0) L Globulin 4.3 g/dL Albumin/Globulin Ratio 0.2 (1.0-2.7) L Microbiology Date/Time Source Procedure Growth Status 09/12/20 15:20 Sputum Gram Stain - Final Resulted 09/12/20 15:20 Sputum Sputum Culture Pending Resulted Assessment/Plan Assessment/Plan Possible new infection with early sepsis. Status post uncomplicated PEG Paroxysmal atrial fibrillation with RVR Acute myocardial ischemia with elevated troponin Aspiration risk Sepsis Healthcare acquired PNA Complicated UTI with indwelling catheter Hyponatremia Severe protein calorie malnutrition Acute myocardial ischemia Respiratory failure with hypoxia and hypercarbia - now on mech ventilation Hyperkalemia Ac/chronic diastolic CHF Dehydration/hypernatremia resolved into hyponatremia Acute renal failure with azotemia Occluded left cephalic vein Metabolic acidosis Anemia, multifactorial Trach care Hold diuresis with low BP Antimicrobials per ID Vent support with setting sdjusted. Taper O2 more aggressively and monitor acid- base parameters. GTube feedings per GI DVT prophylaxis Continue amiodarone - maintenance dose; titrate beta katya. Replace lytes/Mg++ as needed. Titrate anti-HTN regimen as needed. PRBC tx as needed. Sarkis Sun MD Sep 13, 2020 04:09
[2020-09-13] MEDS ORDERED: Fluconazole 100mg tab NG SCH (04:15)
[2020-09-13] MEDS: Amiodarone 200mg tab NG SCH (09:15)
[2020-09-13] MEDS: Heparin 5000 units/ml inj SUBQ SCH ×2 (09:18→20:04)
--- NOTE | 2020-09-13 10:48 | General Progress Note ---
Subjective ROS Limited/Unobtainable: No Allergies: Coded Allergies: VANCOMYCIN (Verified Allergy, Severe, hive, 08/27/20) Objective Last 24 Hour Vital Signs Date Time Temp Pulse Resp B/P (MAP) Pulse Ox O2 Delivery O2 Flow Rate FiO2 09/13/20 09:15 95 109/61 09/13/20 08:00 85 09/13/20 07:02 96 30 60 09/13/20 04:00 60 09/13/20 04:00 80 09/13/20 04:00 98.5 80 18 112/74 (87) 99 09/13/20 04:00 Mechanical Ventilator 09/13/20 02:00 83 28 60 09/13/20 00:00 98.2 97 20 88/41 (57) 97 09/13/20 00:00 97 09/13/20 00:00 60 09/13/20 00:00 Mechanical Ventilator 09/12/20 21:00 101 103/52 09/12/20 20:00 101 09/12/20 20:00 97.0 101 22 103/52 (69) 97 09/12/20 20:00 Mechanical Ventilator 09/12/20 20:00 97 31 60 09/12/20 20:00 60 09/12/20 16:00 Mechanical Ventilator 09/12/20 16:00 60 09/12/20 16:00 87 09/12/20 16:00 98.2 85 30 119/61 (80) 100 09/12/20 13:15 88 29 60 09/12/20 12:00 60 09/12/20 12:00 80 09/12/20 12:00 Mechanical Ventilator 09/12/20 12:00 98.5 94 30 119/72 (88) 97 Intake and Output 09/12/20 09/13/20 19:00 07:00 Intake Total 680 ml 680 ml Output Total 550 ml 400 ml Balance 130 ml 280 ml Free Water 200 ml 200 ml Tube Feeding 480 ml 480 ml Output Urine Total 500 ml 400 ml Stool Total 50 ml Height (Feet): 5 Height (Inches): 4.00 Weight (Pounds): 147 General Appearance: no apparent distress EENT: normal ENT inspection Neck: supple Cardiovascular: normal rate Respiratory/Chest: decreased breath sounds Abdomen: normal bowel sounds, non tender, soft Extremities: non-tender Assessment/Plan Status: stable, not improved Assessment/Plan: Assessment/Plan Status: stable, not improved Assessment/Plan: Assessment - Leukocytosis - better - respiratory failure, s/p Trach - Parox a fib - acute myocardial ischemia - PNA/sepsis - dysphagia - elevated glucose - poor prognosis Recommendations - glucerna TF - Increase rate to meet demands - s/p PEG -monitor for residuals - ID follow up - Pulmonary toilet Thomas Dorsey MD Sep 13, 2020 10:48
[2020-09-13 12:30] VITALS: BP 157/86
--- NOTE | 2020-09-13 12:35 | NUR ---
NURSE NOTES: Assumed pt care,report received from RN Ayo Dai .Pt awake,eyes openbur not responding to verbal stimuli,noted no resp distress,with trach tube to vent ,ordered vent settings tolerated,GTF Nepro at 40 ml/hr,no residual noted,Overton cath draining yellow urine,Rectal tube with brown stools,skin warm and dry with with iv to LFA intact,SR up x2 HOB elevated bed lock in lowest position,will continue with plans of care.
[2020-09-13] MEDS: Cefepime HCl 1 GM in D5W 55 ML IVPB SCH (13:03)
--- NOTE | 2020-09-13 14:36 | NUR ---
NURSE NOTES: Overton cath discontinued per MD's order.,applied a revised pediatric urine receptacle cath for incontinence.
--- NOTE | 2020-09-13 15:48 | Pulmonology Progress Note ---
Subjective ROS Limited/Unobtainable: No Constitutional: Denies: fever Gastrointestinal/Abdominal: Reports: other - will have NG tube placement today Allergies: Coded Allergies: VANCOMYCIN (Verified Allergy, Severe, hive, 08/27/20) All Systems: reviewed and negative except above Objective Last 24 Hour Vital Signs Date Time Temp Pulse Resp B/P (MAP) Pulse Ox O2 Delivery O2 Flow Rate FiO2 09/13/20 15:02 100 28 60 09/13/20 12:30 98.1 71 17 157/86 (109) 100 09/13/20 12:00 Mechanical Ventilator 09/13/20 12:00 101 09/13/20 12:00 60 09/13/20 10:52 101 29 60 09/13/20 09:15 95 109/61 09/13/20 08:05 104 09/13/20 08:00 Mechanical Ventilator 09/13/20 08:00 60 09/13/20 08:00 85 09/13/20 07:02 96 30 60 09/13/20 04:00 60 09/13/20 04:00 80 09/13/20 04:00 98.5 80 18 112/74 (87) 99 09/13/20 04:00 Mechanical Ventilator 09/13/20 02:00 83 28 60 09/13/20 00:00 98.2 97 20 88/41 (57) 97 09/13/20 00:00 97 09/13/20 00:00 60 09/13/20 00:00 Mechanical Ventilator 09/12/20 21:00 101 103/52 09/12/20 20:00 101 09/12/20 20:00 97.0 101 22 103/52 (69) 97 09/12/20 20:00 Mechanical Ventilator 09/12/20 20:00 97 31 60 09/12/20 20:00 60 09/12/20 16:00 Mechanical Ventilator 09/12/20 16:00 60 09/12/20 16:00 87 09/12/20 16:00 98.2 85 30 119/61 (80) 100 Intake and Output 09/12/20 09/13/20 18:59 06:59 Intake Total 680 ml 680 ml Output Total 550 ml 400 ml Balance 130 ml 280 ml Free Water 200 ml 200 ml Tube Feeding 480 ml 480 ml Output Urine Total 500 ml 400 ml Stool Total 50 ml Microbiology Date/Time Source Procedure Growth Status 12/26/20 15:20 Sputum Gram Stain - Final Resulted 09/12/20 15:20 Sputum Sputum Culture Pending Resulted 09/11/20 23:48 Urine,Clean Catch Urine Culture - Preliminary NO GROWTH Resulted Current Medications Medications (Trade) Dose Ordered Sig/Javon Route PRN Reason Start Time Stop Time Status Last Admin Dose Admin Amiodarone HCl (Cordarone) 200 mg DAILY NG 09/04/20 09:00 11/15/20 08:59 09/13/20 09:15 Cefepime HCl 1 gm/ Dextrose 55 ml @ 110 mls/hr Q24H IVPB 09/12/20 12:00 09/19/20 11:59 09/13/20 13:03 Heparin Sodium (Porcine) (Heparin 5000 units/ml) 5,000 units EVERY 12 HOURS SUBQ 08/03/20 09:00 09/17/20 08:59 09/13/20 09:18 Hydralazine HCl (Apresoline) 25 mg Q6H PRN NG SBP above 160 08/11/20 22:30 11/05/20 00:29 08/12/20 15:09 Lansoprazole (Prevacid) 30 mg DAILY NG 08/30/20 09:00 09/29/20 08:59 09/13/20 09:15 Metoclopramide HCl (Reglan) 5 mg Q8H PRN IVP Nausea & Vomiting 08/15/20 13:00 09/14/20 12:59 09/09/20 21:56 Metoprolol Tartrate (Lopressor) 25 mg Q12HR NG 08/13/20 09:00 11/11/20 08:59 09/13/20 09:15 Assessment/Plan Assessment/Plan Pulmonary Progress Note Subjective ROS Limited/Unobtainable: Yes Constitutional: Denies: fever Allergies: Coded Allergies: No Known Allergies (Unverified , 08/02/20) All Systems: reviewed and negative except above Subjective care noted on ventilator, elevatedCO2, FIO2 60% diffuse infiltrates Objective Vital Signs noted Objective WDWN NAD reduced breath sounds bilaterally [id number] NABS nontender no CCE nonfocal on BIPAP poorly responsive Laboratory Tests noted Medications noted Assessment/Plan Assessment/Plan ASSESSMENT: chronic encephalopathy, dementia, diffuse infiltrates, elevated BNP hypertension, recurrent falls, and urinary tract infection, hypoxemia, probable aspiration pneumonia. PLAN care noted respiratory care as is wean [id number] previously d/w family as to poor prognosis and consider terminal care on high oxygen needs repeat CXR and ABG noted palliative care recommended doubt any chance of recovery impression, plan, and exam edited and reviewed in detail care discussed with RN Sarkis Bangura MD Sep 13, 2020 15:48
[2020-09-13 16:00] VITALS: BP 125/66
--- NOTE | 2020-09-13 17:00 | NUR ---
NURSE NOTES: Pt turned and repositioned,pt edematous,with water seeping from the skin,kept dry and clean.
--- NOTE | 2020-09-13 18:10 | Surgery Progress Note ---
Surgery Progress Note Subjective Procedure Performed trach Additional Comments ill appearing declining inevitable decline likely Objective Last 24 Hour Vital Signs Date Time Temp Pulse Resp B/P (MAP) Pulse Ox O2 Delivery O2 Flow Rate FiO2 09/13/20 16:00 93 09/13/20 16:00 Mechanical Ventilator 09/13/20 16:00 60 09/13/20 16:00 97.7 103 31 125/66 (85) 97 09/13/20 15:02 100 28 60 09/13/20 12:30 98.1 71 17 157/86 (109) 100 09/13/20 12:00 Mechanical Ventilator 09/13/20 12:00 101 09/13/20 12:00 60 09/13/20 10:52 101 29 60 09/13/20 09:15 95 109/61 09/13/20 08:05 104 09/13/20 08:00 Mechanical Ventilator 09/13/20 08:00 60 09/13/20 08:00 85 09/13/20 07:02 96 30 60 09/13/20 04:00 60 09/13/20 04:00 80 09/13/20 04:00 98.5 80 18 112/74 (87) 99 09/13/20 04:00 Mechanical Ventilator 09/13/20 02:00 83 28 60 09/13/20 00:00 98.2 97 20 88/41 (57) 97 09/13/20 00:00 97 09/13/20 00:00 60 09/13/20 00:00 Mechanical Ventilator 09/12/20 21:00 101 103/52 09/12/20 20:00 101 09/12/20 20:00 97.0 101 22 103/52 (69) 97 09/12/20 20:00 Mechanical Ventilator 09/12/20 20:00 97 31 60 09/12/20 20:00 60 I&O Intake and Output 09/12/20 09/13/20 19:00 07:00 Intake Total 680 ml 680 ml Output Total 550 ml 400 ml Balance 130 ml 280 ml Free Water 200 ml 200 ml Tube Feeding 480 ml 480 ml Output Urine Total 500 ml 400 ml Stool Total 50 ml Cardiovascular: RSR Respiratory: decreased breath sounds Abdomen: non-tender, present bowel sounds, non-distended Extremities: no edema, no tenderness, no cyanosis Plan Problems: (1) Pneumonia (2) Hypoxia (3) Sepsis Assessment & Plan: respiratory insufficiency prolonged ventilatory support failed weaning trials weaning vent as much as possible anticipate prolong vent support trach indicated and recommended will obtain consent plan for trach as able to wean thank you cont weaning will follow with recs s/p trach wean sedation wean vent no active bleeding noted h/h noted trend labs worsening prognosis guarded peg 09/08 cont tf (4) UTI (urinary tract infection) (5) Pneumonia (6) AMS (altered mental status) Isaias Loaiza Sep 13, 2020 18:10
--- NOTE | 2020-09-13 19:20 | NUR ---
NURSE HAND-OFF REPORT: Important Events on Shift:Folet cath discontinued Patient Status: stable Diet: Nepro at 40 ml/hr GT Pending Orders: N/A Pending Results/Labs:N/A Pending MD notification:N/A Latest Vital Signs: Temperature 97.7 , Pulse 103 , B/P 125 /66 , Respiratory Rate 30 , O2 SAT 97 , Mechanical Ventilator, O2 Flow Rate 70.0 . Vital Sign Comment: stable EKG Rhythm: Sinus Rhythm Rhythm change?: N Notified?: N -Dr. Virgil KURTZ Response: Message left await call Latest José Fall Score: 75 Fall Risk: High Risk Safety Measures: Call light Within Reach, Bed Alarm Zone 1, Side Rails Side Rails x3, Bed position Low and Locked. Fall Precautions: Yellow Socks Yellow Gown Door Sign Patient Fall Education Report given to Jose Rafael Madrigal RN.
--- NOTE | 2020-09-13 19:30 | NUR ---
NURSE NOTES: Received pt in bed. In no apparent distress. Respirations even and unlabored. Patient is trach to vent and tolerating well. SR on color television console monitor. GT feeding of nepro at 40 cc/hr. w/nor residual noted. HOB elevated in lowest position, locked, side railsX2 up, call light within reach. Patient will continue POC.
[2020-09-13 20:00] VITALS: BP 107/67
[2020-09-14] VITALS (10 sets, daily range): BP systolic 66–134; BP diastolic 32–66
--- NOTE | 2020-09-14 | NUR ---
NURSE NOTES: No distress noted. VSS Afebrile. Respirations even and unlabored. Continue to tolerate GT feeding of nepro at 40 cc/hr. HOB elevated. Bed in lowest position, locked, side rails X2 up, call light within reach. Sr on cardiac specialist. Patient will continue POC.
--- NOTE | 2020-09-14 04:00 | NUR ---
NURSE NOTES: No distress noted. Respirations even and unlabored. Continue to tolerate GT feeding well of nepro at 40 cc/hr. No residual noted. HOB elevated in lowest position, lock engaged, side rails X2 up, call light within reach. Sr on cardiac rehabilitation specialist. Patient will continue POC.
--- NOTE | 2020-09-14 04:18 | Cardiology Progress Note ---
Subjective DATE OF SERVICE: Sep 13, 2020 BP stabilizing S/P PEG placement 09/08/20 Remains on vent via trach; O2 requirements slowly decreasing No respiratory distress Monitor: sinus rhythm with no episodes of bradycardia. ABG (09/09) 7.26/63/168 CXR (09/10) unchanged bilateral infiltrates Objective Last 24 Hour Vital Signs Date Time Temp Pulse Resp B/P (MAP) Pulse Ox O2 Delivery O2 Flow Rate FiO2 09/14/20 04:00 92 09/14/20 03:50 50 09/14/20 03:50 Mechanical Ventilator 09/14/20 03:06 96 31 50 09/14/20 00:11 Mechanical Ventilator 09/14/20 00:00 97.9 90 28 132/59 (83) 98 09/14/20 00:00 90 09/14/20 00:00 60 09/13/20 23:00 106 31 60 09/13/20 21:00 91 107/67 09/13/20 20:07 60 09/13/20 20:06 Mechanical Ventilator 09/13/20 20:00 82 09/13/20 20:00 97.9 91 30 107/67 (80) 98 09/13/20 18:55 103 30 60 09/13/20 16:00 93 09/13/20 16:00 Mechanical Ventilator 09/13/20 16:00 60 09/13/20 16:00 97.7 103 31 125/66 (85) 97 09/13/20 15:02 100 28 60 09/13/20 12:30 98.1 71 17 157/86 (109) 100 09/13/20 12:00 Mechanical Ventilator 09/13/20 12:00 101 09/13/20 12:00 60 09/13/20 10:52 101 29 60 09/13/20 09:15 95 109/61 09/13/20 08:05 104 09/13/20 08:00 Mechanical Ventilator 09/13/20 08:00 60 09/13/20 08:00 85 09/13/20 07:02 96 30 60 ROS: unchanged from my evaluation of 08/02/20 HEENT: Mechanically Ventilated, Thin Trach secretions RHYTHM: NSR, PACs, Afib LUNGS: bilateral rhonchi, trach site clean CARDIAC: normal S1 and S2, irregularly irregular, systolic murmur - 1/6 systoli c murmurat apex, rapid rate ABDOMEN: normal bowel sounds, non tender, soft, no organomegaly, G-Tube intact EXTREMITIES: normal range of motion, +1 edema Microbiology Date/Time Source Procedure Growth Status 09/12/20 15:20 Sputum Gram Stain - Final Resulted 09/12/20 15:20 Sputum Sputum Culture Pending Resulted 09/11/20 23:48 Urine,Clean Catch Urine Culture - Preliminary NO GROWTH Resulted Assessment/Plan Assessment/Plan eePossible new infection with early sepsis. Status post uncomplicated PEG Paroxysmal atrial fibrillation with RVR Acute myocardial ischemia with elevated troponin Aspiration risk Sepsis Healthcare acquired PNA Complicated UTI with indwelling catheter Hyponatremia Severe protein calorie malnutrition Acute myocardial ischemia Respiratory failure with hypoxia and hypercarbia - now on mech ventilation Hyperkalemia Ac/chronic diastolic CHF Dehydration/hypernatremia resolved into hyponatremia Acute renal failure with azotemia Occluded left cephalic vein Metabolic acidosis Anemia, multifactorial CRITICAL & GUARDED Trach care Hold diuresis with low BP Antimicrobials per ID Vent support with setting sdjusted. Taper O2 more aggressively and monitor acid- base parameters. GTube feedings per GI DVT prophylaxis Continue amiodarone - maintenance dose; titrate beta katya. Replace lytes/Mg++ as needed. Titrate anti-HTN regimen as needed. PRBC tx as needed. Sarkis Sun MD Sep 14, 2020 04:18
--- NOTE | 2020-09-14 06:37 | NUR ---
NURSE NOTES: No significant changes. Tolerating GT feeding well...no residual noted. ST on toll collector. Fi02 reduced to 50% and saturating adequately. In no apparent distress. Will continue to monitor
[2020-09-14 06:50] LABS: HEMATOCRIT 26.9 % (42.0-52.0); HEMOGLOBIN 9.2 G/DL (14.2-18.0); MEAN CORPUSCULAR VOLUME 89 FL (80-99); PLATELET COUNT 138 K/UL (150-450); RED BLOOD COUNT 3.03 M/UL (4.70-6.10); RED CELL DISTRIBUTION WIDTH 13.9 % (11.6-14.8); WHITE BLOOD COUNT 18.9 K/UL (4.8-10.8)
--- NOTE | 2020-09-14 07:21 | NUR ---
HAND-OFF: Report given to Ayo Dai RN.
--- NOTE | 2020-09-14 07:30 | NUR ---
received pt. lying in bed his eyes open ,on vent .tolerate 50% O2 ,VS STABLE NO DISTRESS
[2020-09-14 07:57] LABS: ALBUMIN 0.8 G/DL (3.4-5.0); ALBUMIN/GLOBULIN RATIO 0.2 (1.0-2.7); BILIRUBIN,TOTAL 0.3 MG/DL (0.2-1.0); CALCIUM 8.4 MG/DL (8.5-10.1); CREATININE 1.9 MG/DL (0.55-1.30); POTASSIUM 4.5 MMOL/L (3.5-5.1)
[2020-09-14] MEDS: Heparin 5000 units/ml inj SUBQ SCH ×2 (09:01→21:00)
[2020-09-14] MEDS: Amiodarone 200mg tab NG SCH (09:02)
--- NOTE | 2020-09-14 09:54 | NUR ---
RD ASSESSMENT & RECOMMENDATIONS SEE CARE ACTIVITY FOR COMPLETE ASSESSMENT DAILY ESTIMATED NEEDS: Needs based on Underweight, crirtical care/ 45kg 30-35 kcals/kg 7431-0863 total kcals 1.2-2 g protein/kg 54-90 g total protein 25-30 mL/kg 7072-7066 total fluid mLs NUTRITION DIAGNOSIS: * Increased kcal/prot needs R/T underweight status, pulmonary status as evidenced by pt @ 73% IBW, w/ BMI of 16.5, low BMI per guidelines, h/o COPD. * Swallowing difficulty R/T dysphagia, respiratory status as evidenced by s/p failed video swallow study, w/ rec for NPO, s/p NGT insertion for NGT feeds, s/p oral intubation (08/19), now s/p trach placement (08/27),pending PEG placement. CURRENT TF:Nepro @ 40ml/hr x 24 hrs ENTERAL NUTRITION RECOMMENDATIONS: Nepro @ 36ml/hr x 24 hrs to provide 864ml, 1555 kcal, 70g pro, 628ml free H2O * LOWER goal rate to 36ml/hr x 24 hrs not to exceed est needs. * flush per , HOB over 30 degrees ADDITIONAL RECOMMENDATIONS: * Wt@ [facility] on [id number]/2935=464inp (48kg) fluctuating daily wts, rec recalibrated bedscale wt (wts now 60's kg) * Monitor lytes -> K previously consistently elevated, continue Nepro * Monitor tolerance to PEG feeds (s/p PEG placement 09/08) * Rec NISS w/ TF, rec accuchecks * Consider increasing water flushes: BUN trending up .
--- NOTE | 2020-09-14 11:43 | Infectious Diseases Prog Note ---
Assessment/Plan Assessment/Plan antibiotics : cefepime A 1. gram negative pneumonia 2. COVID-19 test is negative. 3. fungal Urinary tract infection s/p rx 4. Hypertension. 5. Dementia. 6. Respiratory failure s/p tracheostomy 7. leucocytosis improving 8. renal failure P 1. continue cefepime 2. will follow up cultures Subjective ROS Limited/Unobtainable: Yes Allergies: Coded Allergies: VANCOMYCIN (Verified Allergy, Severe, hive, 08/27/20) Objective Last 24 Hour Vital Signs Date Time Temp Pulse Resp B/P (MAP) Pulse Ox O2 Delivery O2 Flow Rate FiO2 09/14/20 09:02 103 109/60 09/14/20 08:48 50 09/14/20 08:00 Mechanical Ventilator 09/14/20 08:00 91 09/14/20 08:00 97.7 103 28 109/60 (76) 94 09/14/20 04:00 92 09/14/20 04:00 97.5 103 28 134/66 (88) 100 09/14/20 03:50 50 09/14/20 03:50 Mechanical Ventilator 09/14/20 03:06 96 31 50 09/14/20 00:11 Mechanical Ventilator 09/14/20 00:00 97.9 90 28 132/59 (83) 98 09/14/20 00:00 90 09/14/20 00:00 60 09/13/20 23:00 106 31 60 09/13/20 21:00 91 107/67 09/13/20 20:07 60 09/13/20 20:06 Mechanical Ventilator 09/13/20 20:00 82 09/13/20 20:00 97.9 91 30 107/67 (80) 98 09/13/20 18:55 103 30 60 09/13/20 16:00 93 09/13/20 16:00 Mechanical Ventilator 09/13/20 16:00 60 09/13/20 16:00 97.7 103 31 125/66 (85) 97 09/13/20 15:02 100 28 60 09/13/20 12:30 98.1 71 17 157/86 (109) 100 09/13/20 12:00 Mechanical Ventilator 09/13/20 12:00 101 09/13/20 12:00 60 Height (Feet): 5 Height (Inches): 4.00 Weight (Pounds): 147 HEENT: status post trach Respiratory/Chest: lungs clear Cardiovascular: normal rate, regular rhythm, no gallop/murmur Abdomen: soft, non tender, other - GT Extremities: other - + edema Microbiology Date/Time Source Procedure Growth Status 09/12/20 15:20 Sputum Gram Stain - Final Resulted 09/12/20 15:20 Sputum Culture - Preliminary Gram Negative Bacillus 1 Resulted 09/11/20 23:48 Urine,Clean Catch Urine Culture - Preliminary NO GROWTH Resulted Laboratory Tests Test 09/14/20 04:49 White Blood Count 18.9 K/UL (4.8-10.8) H Red Blood Count 3.03 M/UL (4.70-6.10) L Hemoglobin 9.2 G/DL (14.2-18.0) L Hematocrit 26.9 % (42.0-52.0) L Mean Corpuscular Volume 89 FL (80-99) Mean Corpuscular Hemoglobin 30.4 PG (27.0-31.0) Mean Corpuscular Hemoglobin Concent 34.2 G/DL (32.0-36.0) Red Cell Distribution Width 13.9 % (11.6-14.8) Platelet Count 138 K/UL (150-450) L Mean Platelet Volume 9.6 FL (6.5-10.1) Neutrophils (%) (Auto) % (45.0-75.0) Lymphocytes (%) (Auto) % (20.0-45.0) Monocytes (%) (Auto) % (1.0-10.0) Eosinophils (%) (Auto) % (0.0-3.0) Basophils (%) (Auto) % (0.0-2.0) Differential Total Cells Counted 100 Neutrophils % (Manual) 95 % (45-75) H Lymphocytes % (Manual) 4 % (20-45) L Monocytes % (Manual) 1 % (1-10) Eosinophils % (Manual) 0 % (0-3) Basophils % (Manual) 0 % (0-2) Band Neutrophils 0 % (0-8) Platelet Estimate Decreased L Platelet Morphology Normal Red Blood Cell Morphology Normal Sodium Level 138 MMOL/L (136-145) Potassium Level 4.5 MMOL/L (3.5-5.1) Chloride Level 108 MMOL/L (98-107) H Carbon Dioxide Level 29 MMOL/L (21-32) Anion Gap 1 mmol/L (5-15) L Blood Urea Nitrogen 93 mg/dL (7-18) H Creatinine 1.9 MG/DL (0.55-1.30) H Estimat Glomerular Filtration Rate 33.6 mL/min (>60) Glucose Level 144 MG/DL (74-106) H Calcium Level 8.4 MG/DL (8.5-10.1) L Magnesium Level 2.5 MG/DL (1.8-2.4) H Total Bilirubin 0.3 MG/DL (0.2-1.0) Aspartate Amino Transf (AST/SGOT) 42 U/L (15-37) H Alanine Aminotransferase (ALT/SGPT) 51 U/L (12-78) Alkaline Phosphatase 199 U/L (46-116) H Pro-B-Type Natriuretic Peptide 9370 pg/mL (0-125) H Total Protein 5.3 G/DL (6.4-8.2) L Albumin 0.8 G/DL (3.4-5.0) L Globulin 4.5 g/dL Albumin/Globulin Ratio 0.2 (1.0-2.7) L Current Medications Medications (Trade) Dose Ordered Sig/Javon Route PRN Reason Start Time Stop Time Status Last Admin Dose Admin Amiodarone HCl (Cordarone) 200 mg DAILY NG 09/04/20 09:00 11/15/20 08:59 09/14/20 09:02 Cefepime HCl 1 gm/ Dextrose 55 ml @ 110 mls/hr Q24H IVPB 09/12/20 12:00 09/19/20 11:59 09/13/20 13:03 Heparin Sodium (Porcine) (Heparin 5000 units/ml) 5,000 units EVERY 12 HOURS SUBQ 08/03/20 09:00 09/17/20 08:59 09/14/20 09:01 Hydralazine HCl (Apresoline) 25 mg Q6H PRN NG SBP above 160 08/11/20 22:30 11/05/20 00:29 08/12/20 15:09 Lansoprazole (Prevacid) 30 mg DAILY NG 08/30/20 09:00 09/29/20 08:59 09/14/20 09:01 Metoclopramide HCl (Reglan) 5 mg Q8H PRN IVP Nausea & Vomiting 08/15/20 13:00 09/14/20 12:59 09/09/20 21:56 Metoprolol Tartrate (Lopressor) 25 mg Q12HR NG 08/13/20 09:00 11/11/20 08:59 09/14/20 09:02 Wagner Christensen MD Sep 14, 2020 11:42
[2020-09-14] MEDS: Cefepime HCl 1 GM in D5W 55 ML IVPB SCH (12:22)
--- NOTE | 2020-09-14 14:00 | NUR ---
WOUND CARE EVI\SE SAW THE PT. AND DID HER ASSESMENT
--- NOTE | 2020-09-14 14:18 | NUR ---
NURSE NOTES:WOUND CARE NOTES:Pt deconditioned and presented on admission with multiple Pressure Injuries , Generalized edema. Weeping edema bilat upper extremities and and trunk.Large Purpura ventral R forearm. Unstageable Pressure Injury R elbow(L)5cm x (W)5cm. Base of wound is 100% conrad slough. Edges erythematous but adherent to base of wound. Periwound is indurated and erythematous. No elevation in skin temp noted. DTPI L elbow. Base of Pressure injury is purpuric and indurated.(L)2cm x (W)1.8cm. Penile torsion noted. Irregular shaped- Full thickness Ulcer at base of shaft (L)4cm x (W)4cm. Base of wound is 100% slough . Marginal erythema along edges. No exudate noted. DTPI Sacrum. Base of Pressure Injury is Purpuric at cleft and Sacrococcygeal areas with surrounding Maroon borders. Non-blanchable erythema without induration R and L ischial tuberosities. DTPI L Heel and plantar aspect(L)9cm x (W)5cm. Base of Pressure injury is Is maroon and fluctuant. DTPI R Heel and Plantar aspect of Heel(L)8.5cm x (W)8cm. Base of Pressure injury is maroon with fluctuance. Tx.Plan:Cleanse wound R Elbow with Saline. Apply TheraHoney.Apply Cavilon Skin Barrier Periwound. Cover with Optifoam Drsg. Change Daily and prn. Apply Cavilon Skin Barrier to L Elbow. Cover with Optifoam drsg. Change every 7 days and prn. Cleanse Ulcer at Base of Shaft of Penis with Saline. Apply Triad Paste Twice Daily and prn. Apply Moisture Barrier Paste to Sacrum. Cover with Optifoam drsg. Change every 3 days and prn. Apply Moisture Barrier Paste to R and L Ischial tuberosities. Cover each site with Optifoam drsgs. Change every 3 Days and prn. Apply Cavilon Skin Barrier to both heels. Cover each heel with Optifoam drsgs. Change every 7 days and prn. Elevate both Upper extremities with Pillow. Reposition at least every 2hours or as tolerated. Off-load heels with pillows. APM/EUNICE Mattress overlay.
--- NOTE | 2020-09-14 15:14 | NUR ---
CASE MANAGEMENT:REVIEW 09/14/20 SI:ACUTE RESPIRATORY FAILURE S/P NEW TRACH PLACEMENT AND PEG 97.7 103 28 109/60 94% ON VENT SUPPORT W/50% FIO2 WBC+18.9 IS: IV CEFEPIME Q24 PREVACID GT QD LOPRESSOR GT Q12 HEPARIN SQ Q12 DUONEB HHN Q4HRS RTC AMIODARONE GT QD LOPRESSOR GT Q12 : STEP DOWN UNIT PLAN: DISCHARGE WHEN FIO2 IS 40% OR LESS
--- NOTE | 2020-09-14 15:26 | NUR ---
DISCHARGE PLANNING PATIENT HAS BEEN REFERRED TO [facility] ACUTE OXYGEN NEEDS TO BE WEANED TO 40% OR LESS
--- NOTE | 2020-09-14 17:22 | Surgery Progress Note ---
Surgery Progress Note Subjective Procedure Performed trach Additional Comments declining Objective Last 24 Hour Vital Signs Date Time Temp Pulse Resp B/P (MAP) Pulse Ox O2 Delivery O2 Flow Rate FiO2 09/14/20 15:05 87 32 50 09/14/20 12:00 95 09/14/20 12:00 50 09/14/20 12:00 97.8 93 26 105/61 (76) 95 09/14/20 11:05 98 31 50 09/14/20 09:02 103 109/60 09/14/20 08:48 50 09/14/20 08:00 Mechanical Ventilator 09/14/20 08:00 91 09/14/20 08:00 97.7 103 28 109/60 (76) 94 09/14/20 07:15 88 28 50 09/14/20 04:00 92 09/14/20 04:00 97.5 103 28 134/66 (88) 100 09/14/20 03:50 50 09/14/20 03:50 Mechanical Ventilator 09/14/20 03:06 96 31 50 09/14/20 00:11 Mechanical Ventilator 09/14/20 00:00 97.9 90 28 132/59 (83) 98 09/14/20 00:00 90 09/14/20 00:00 60 09/13/20 23:00 106 31 60 09/13/20 21:00 91 107/67 09/13/20 20:07 60 09/13/20 20:06 Mechanical Ventilator 09/13/20 20:00 82 09/13/20 20:00 97.9 91 30 107/67 (80) 98 09/13/20 18:55 103 30 60 I&O Intake and Output 09/13/20 09/14/20 19:00 07:00 Intake Total 380 ml 600 ml Output Total 100 ml 200 ml Balance 280 ml 400 ml Free Water 100 ml 200 ml Tube Feeding 280 ml 400 ml Output Urine Total 100 ml 200 ml # Bowel Movements 100 Dressing: saturated Cardiovascular: RSR Respiratory: decreased breath sounds Abdomen: soft, present bowel sounds, non-distended Extremities: no tenderness, no cyanosis, other Laboratory Tests Test 09/14/20 04:49 White Blood Count 18.9 K/UL (4.8-10.8) H Red Blood Count 3.03 M/UL (4.70-6.10) L Hemoglobin 9.2 G/DL (14.2-18.0) L Hematocrit 26.9 % (42.0-52.0) L Mean Corpuscular Volume 89 FL (80-99) Mean Corpuscular Hemoglobin 30.4 PG (27.0-31.0) Mean Corpuscular Hemoglobin Concent 34.2 G/DL (32.0-36.0) Red Cell Distribution Width 13.9 % (11.6-14.8) Platelet Count 138 K/UL (150-450) L Mean Platelet Volume 9.6 FL (6.5-10.1) Neutrophils (%) (Auto) % (45.0-75.0) Lymphocytes (%) (Auto) % (20.0-45.0) Monocytes (%) (Auto) % (1.0-10.0) Eosinophils (%) (Auto) % (0.0-3.0) Basophils (%) (Auto) % (0.0-2.0) Differential Total Cells Counted 100 Neutrophils % (Manual) 95 % (45-75) H Lymphocytes % (Manual) 4 % (20-45) L Monocytes % (Manual) 1 % (1-10) Eosinophils % (Manual) 0 % (0-3) Basophils % (Manual) 0 % (0-2) Band Neutrophils 0 % (0-8) Platelet Estimate Decreased L Platelet Morphology Normal Red Blood Cell Morphology Normal Sodium Level 138 MMOL/L (136-145) Potassium Level 4.5 MMOL/L (3.5-5.1) Chloride Level 108 MMOL/L (98-107) H Carbon Dioxide Level 29 MMOL/L (21-32) Anion Gap 1 mmol/L (5-15) L Blood Urea Nitrogen 93 mg/dL (7-18) H Creatinine 1.9 MG/DL (0.55-1.30) H Estimat Glomerular Filtration Rate 33.6 mL/min (>60) Glucose Level 144 MG/DL (74-106) H Calcium Level 8.4 MG/DL (8.5-10.1) L Magnesium Level 2.5 MG/DL (1.8-2.4) H Total Bilirubin 0.3 MG/DL (0.2-1.0) Aspartate Amino Transf (AST/SGOT) 42 U/L (15-37) H Alanine Aminotransferase (ALT/SGPT) 51 U/L (12-78) Alkaline Phosphatase 199 U/L (46-116) H Pro-B-Type Natriuretic Peptide 9370 pg/mL (0-125) H Total Protein 5.3 G/DL (6.4-8.2) L Albumin 0.8 G/DL (3.4-5.0) L Globulin 4.5 g/dL Albumin/Globulin Ratio 0.2 (1.0-2.7) L Plan Problems: (1) Pneumonia (2) Hypoxia (3) Sepsis Assessment & Plan: respiratory insufficiency prolonged ventilatory support failed weaning trials weaning vent as much as possible anticipate prolong vent support trach indicated and recommended will obtain consent plan for trach as able to wean thank you cont weaning will follow with recs s/p trach wean sedation wean vent no active bleeding noted h/h noted trend labs worsening prognosis guarded peg 09/08 cont tf Pt deconditioned and presented on admission with multiple Pressure Injuries , Generalized edema. Weeping edema bilat upper extremities and and trunk.Large Purpura ventral R forearm. Unstageable Pressure Injury R elbow(L)5cm x (W)5cm. Base of wound is 100% conrad slough. Edges erythematous but adherent to base of wound. Periwound is indurated and erythematous. No elevation in skin temp noted. DTPI L elbow. Base of Pressure injury is purpuric and indurated.(L)2cm x (W)1.8cm. Penile torsion noted. Irregular shaped- Full thickness Ulcer at base of shaft (L)4cm x (W)4cm. Base of wound is 100% slough . Marginal erythema along edges. No exudate noted. DTPI Sacrum. Base of Pressure Injury is Purpuric at cleft and Sacrococcygeal areas with surrounding Maroon borders. Non-blanchable erythema without induration R and L ischial tuberosities. DTPI L Heel and plantar aspect(L)9cm x (W)5cm. Base of Pressure injury is Is maroon and fluctuant. DTPI R Heel and Plantar aspect of Heel(L)8.5cm x (W)8cm. Base of Pressure injury is maroon with fluctuance. Tx.Plan:Cleanse wound R Elbow with Saline. Apply TheraHoney.Apply Cavilon Skin Barrier Periwound. Cover with Optifoam Drsg. Change Daily and prn. Apply Cavilon Skin Barrier to L Elbow. Cover with Optifoam drsg. Change every 7 days and prn. Cleanse Ulcer at Base of Shaft of Penis with Saline. Apply Triad Paste Twice Daily and prn. Apply Moisture Barrier Paste to Sacrum. Cover with Optifoam drsg. Change every 3 days and prn. Apply Moisture Barrier Paste to R and L Ischial tuberosities. Cover each site with Optifoam drsgs. Change every 3 Days and prn. Apply Cavilon Skin Barrier to both heels. Cover each heel with Optifoam drsgs. Change every 7 days and prn. Elevate both Upper extremities with Pillow. Reposition at least every 2hours or as tolerated. Off-load heels with pillows. APM/EUNICE Mattress overlay. (4) UTI (urinary tract infection) (5) Pneumonia (6) AMS (altered mental status) Isaias Loaiza Sep 14, 2020 17:21
[2020-09-14] MEDS ORDERED: NS 250 ML IVPB ONE ×2 (17:45→19:15)
--- NOTE | 2020-09-14 18:42 | Pulmonology Progress Note ---
Subjective ROS Limited/Unobtainable: Yes Constitutional: Denies: fever Gastrointestinal/Abdominal: Reports: other - will have NG tube placement today Allergies: Coded Allergies: VANCOMYCIN (Verified Allergy, Severe, hive, 08/27/20) All Systems: reviewed and negative except above Objective Last 24 Hour Vital Signs Date Time Temp Pulse Resp B/P (MAP) Pulse Ox O2 Delivery O2 Flow Rate FiO2 09/14/20 16:30 97.5 84 26 78/58 (65) 90 09/14/20 16:00 50 09/14/20 16:00 93 09/14/20 16:00 97.5 83 24 94/60 (71) 94 09/14/20 15:05 87 32 50 09/14/20 12:00 95 09/14/20 12:00 50 09/14/20 12:00 97.8 93 26 105/61 (76) 95 09/14/20 11:05 98 31 50 09/14/20 09:02 103 109/60 09/14/20 08:48 50 09/14/20 08:00 Mechanical Ventilator 09/14/20 08:00 91 09/14/20 08:00 97.7 103 28 109/60 (76) 94 09/14/20 07:15 88 28 50 09/14/20 04:00 92 09/14/20 04:00 97.5 103 28 134/66 (88) 100 09/14/20 03:50 50 09/14/20 03:50 Mechanical Ventilator 09/14/20 03:06 96 31 50 09/14/20 00:11 Mechanical Ventilator 09/14/20 00:00 97.9 90 28 132/59 (83) 98 09/14/20 00:00 90 09/14/20 00:00 60 09/13/20 23:00 106 31 60 09/13/20 21:00 91 107/67 09/13/20 20:07 60 09/13/20 20:06 Mechanical Ventilator 09/13/20 20:00 82 09/13/20 20:00 97.9 91 30 107/67 (80) 98 09/13/20 18:55 103 30 60 Intake and Output 09/13/20 09/14/20 19:00 07:00 Intake Total 380 ml 600 ml Output Total 100 ml 200 ml Balance 280 ml 400 ml Free Water 100 ml 200 ml Tube Feeding 280 ml 400 ml Output Urine Total 100 ml 200 ml # Bowel Movements 100 Microbiology Date/Time Source Procedure Growth Status 09/12/20 15:20 Sputum Gram Stain - Final Resulted 09/12/20 15:20 Sputum Culture - Preliminary Gram Negative Bacillus 1 Resulted 09/11/20 23:48 Urine,Clean Catch Urine Culture - Preliminary NO GROWTH Resulted Laboratory Tests 09/14/20 04:49: White Blood Count 18.9H, Red Blood Count 3.03L, Hemoglobin 9.2L, Hematocrit 26.9L, Mean Corpuscular Volume 89, Mean Corpuscular Hemoglobin 30.4, Mean Corpuscular Hemoglobin Concent 34.2, Red Cell Distribution Width 13.9, Platelet Count 138L, Mean Platelet Volume 9.6, Neutrophils (%) (Auto) , Lymphocytes (%) (Auto) , Monocytes (%) (Auto) , Eosinophils (%) (Auto) , Basophils (%) (Auto) , Differential Total Cells Counted 100, Neutrophils % (Manual) 95H, Lymphocytes % (Manual) 4L, Monocytes % (Manual) 1, Eosinophils % (Manual) 0, Basophils % (Manual) 0, Band Neutrophils 0, Platelet Estimate DecreasedL, Platelet Morphology Normal, Red Blood Cell Morphology Normal, Sodium Level 138, Potassium Level 4.5, Chloride Level 108H, Carbon Dioxide Level 29, Anion Gap 1L, Blood Urea Nitrogen 93H, Creatinine 1.9H, Estimat Glomerular Filtration Rate 33.6, Glucose Level 144H, Calcium Level 8.4L, Magnesium Level 2.5H, Total Bilirubin 0.3, Aspartate Amino Transf (AST/SGOT) 42H, Alanine Aminotransferase (ALT/SGPT) 51, Alkaline Phosphatase 199H, Pro-B-Type Natriuretic Peptide 9370H, Total Protein 5.3L, Albumin 0.8L, Globulin 4.5, Albumin/Globulin Ratio 0.2L Current Medications Medications (Trade) Dose Ordered Sig/Javon Route PRN Reason Start Time Stop Time Status Last Admin Dose Admin Amiodarone HCl (Cordarone) 200 mg DAILY NG 09/04/20 09:00 11/15/20 08:59 09/14/20 09:02 Cefepime HCl 1 gm/ Dextrose 55 ml @ 110 mls/hr Q24H IVPB 09/12/20 12:00 09/19/20 11:59 09/14/20 12:22 Heparin Sodium (Porcine) (Heparin 5000 units/ml) 5,000 units EVERY 12 HOURS SUBQ 08/03/20 09:00 09/17/20 08:59 09/14/20 09:01 Hydralazine HCl (Apresoline) 25 mg Q6H PRN NG SBP above 160 08/11/20 22:30 11/05/20 00:29 08/12/20 15:09 Lansoprazole (Prevacid) 30 mg DAILY NG 08/30/20 09:00 09/29/20 08:59 09/14/20 09:01 Metoprolol Tartrate (Lopressor) 25 mg Q12HR NG 08/13/20 09:00 11/11/20 08:59 09/14/20 09:02 Assessment/Plan Assessment/Plan Pulmonary Progress Note Subjective ROS Limited/Unobtainable: Yes Constitutional: Denies: fever Allergies: Coded Allergies: No Known Allergies (Unverified , 08/02/20) All Systems: reviewed and negative except above Subjective care noted on ventilator, elevatedCO2, FIO2 50% diffuse infiltrates Objective Vital Signs noted Objective WDWN NAD reduced breath sounds bilaterally [id number] NABS nontender no CCE nonfocal on BIPAP poorly responsive Laboratory Tests noted Medications noted Assessment/Plan Assessment/Plan ASSESSMENT: chronic encephalopathy, dementia, diffuse infiltrates, elevated BNP hypertension, recurrent falls, and urinary tract infection, hypoxemia, probable aspiration pneumonia. PLAN care noted respiratory care as is wean [id number] previously d/w family as to poor prognosis and consider terminal care on high oxygen needs repeat CXR and ABG noted palliative care recommended doubt any chance of recovery impression, plan, and exam edited and reviewed in detail care discussed with Sarkis Samano MD Sep 14, 2020 18:42
[2020-09-14] MEDS ORDERED: DOPamine 400mg/250ml 250 ML IV SCH (19:45)
[2020-09-14] MEDS: DOPamine 400mg/250ml 250 ML IV SCH (19:50)
--- NOTE | 2020-09-14 20:36 | NUR ---
NURSE NOTES: Report received from BLANE Garcia. Observed pt lying in the bed. SR noted. BP of 64/33 noted after 500ml bolus, Dr. Herman notified and Dopamin at 5mcg/kg/min received and carried out, BP at 80/36 at this time. Family member updated, no change of code status confirmed. Trach to vent, Shiley 8, AC 28, TV 550, FIO2 50%, PEEP 10, saturating 94% at this time. Bed in the lowest position. Side rails up x3. Will continue to monitor.
--- NOTE | 2020-09-14 21:58 | General Progress Note ---
Subjective Allergies: Coded Allergies: VANCOMYCIN (Verified Allergy, Severe, hive, 08/27/20) Subjective above noted Non responsive on GT feeds doing poorly Objective Last 24 Hour Vital Signs Date Time Temp Pulse Resp B/P (MAP) Pulse Ox O2 Delivery O2 Flow Rate FiO2 09/14/20 21:00 100 80/51 09/14/20 21:00 103 26 85/40 (55) 91 09/14/20 20:00 97.2 77 26 66/32 (43) 91 09/14/20 20:00 50 09/14/20 20:00 Mechanical Ventilator 09/14/20 19:50 65/31 09/14/20 19:21 78 35 50 09/14/20 16:30 97.5 84 26 78/58 (65) 90 09/14/20 16:00 50 09/14/20 16:00 Mechanical Ventilator 09/14/20 16:00 93 09/14/20 16:00 97.5 83 24 94/60 (71) 94 09/14/20 15:05 87 32 50 09/14/20 12:00 95 09/14/20 12:00 50 09/14/20 12:00 Mechanical Ventilator 09/14/20 12:00 97.8 93 26 105/61 (76) 95 09/14/20 11:05 98 31 50 09/14/20 09:02 103 109/60 09/14/20 08:48 50 09/14/20 08:00 Mechanical Ventilator 09/14/20 08:00 91 09/14/20 08:00 97.7 103 28 109/60 (76) 94 09/14/20 07:15 88 28 50 09/14/20 04:00 92 09/14/20 04:00 97.5 103 28 134/66 (88) 100 09/14/20 03:50 50 09/14/20 03:50 Mechanical Ventilator 09/14/20 03:06 96 31 50 09/14/20 00:11 Mechanical Ventilator 09/14/20 00:00 97.9 90 28 132/59 (83) 98 09/14/20 00:00 90 09/14/20 00:00 60 09/13/20 23:00 106 31 60 Intake and Output 09/13/20 09/14/20 19:00 07:00 Intake Total 380 ml 640 ml Output Total 100 ml 200 ml Balance 280 ml 440 ml Free Water 100 ml 200 ml Tube Feeding 280 ml 440 ml Output Urine Total 100 ml 200 ml # Bowel Movements 100 Laboratory Tests 09/14/20 04:49: White Blood Count 18.9H, Red Blood Count 3.03L, Hemoglobin 9.2L, Hematocrit 26.9L, Mean Corpuscular Volume 89, Mean Corpuscular Hemoglobin 30.4, Mean Corpuscular Hemoglobin Concent 34.2, Red Cell Distribution Width 13.9, Platelet Count 138L, Mean Platelet Volume 9.6, Neutrophils (%) (Auto) , Lymphocytes (%) (Auto) , Monocytes (%) (Auto) , Eosinophils (%) (Auto) , Basophils (%) (Auto) , Differential Total Cells Counted 100, Neutrophils % (Manual) 95H, Lymphocytes % (Manual) 4L, Monocytes % (Manual) 1, Eosinophils % (Manual) 0, Basophils % (Manual) 0, Band Neutrophils 0, Platelet Estimate DecreasedL, Platelet Morphology Normal, Red Blood Cell Morphology Normal, Sodium Level 138, Potassium Level 4.5, Chloride Level 108H, Carbon Dioxide Level 29, Anion Gap 1L, Blood Urea Nitrogen 93H, Creatinine 1.9H, Estimat Glomerular Filtration Rate 33.6, Glucose Level 144H, Calcium Level 8.4L, Magnesium Level 2.5H, Total Bilirubin 0.3, Aspartate Amino Transf (AST/SGOT) 42H, Alanine Aminotransferase (ALT/SGPT) 51, Alkaline Phosphatase 199H, Pro-B-Type Natriuretic Peptide 9370H, Total Protein 5.3L, Albumin 0.8L, Globulin 4.5, Albumin/Globulin Ratio 0.2L Height (Feet): 5 Height (Inches): 4.00 Weight (Pounds): 147 Objective Elderly man unresponsive NCAT supple, (+) trach scattered ronchi RR abd soft, (+) GT trace edema Assessment/Plan Status: stable, not improved Assessment/Plan: Assessment - Leukocytosis - respiratory failure, s/p Trach - Parox a fib - acute myocardial ischemia - PNA/sepsis - dysphagia - s/p PEG - elevated glucose - poor prognosis Recommendations - continue low K TF formula - PEG care - ID follow up - Pulmonary toilet, vent care Arely Parks MD Sep 14, 2020 21:57
--- NOTE | 2020-09-14 23:15 | Cardiology Progress Note ---
Subjective DATE OF SERVICE: Sep 14, 2020 BP now unstable and dropping to 70's systolic S/P PEG placement 09/08/20 Remains on vent via trach; O2 requirements increased again. Monitor: sinus rhythm with no episodes of bradycardia. ABG (09/09) 7.26/63/168 CXR (09/10) unchanged bilateral infiltrates Objective Last 24 Hour Vital Signs Date Time Temp Pulse Resp B/P (MAP) Pulse Ox O2 Delivery O2 Flow Rate FiO2 09/14/20 22:11 98 28 50 09/14/20 22:00 103/54 (70) 09/14/20 21:00 100 80/51 09/14/20 21:00 103 26 85/40 (55) 91 09/14/20 20:00 97.2 77 26 66/32 (43) 91 09/14/20 20:00 50 09/14/20 20:00 Mechanical Ventilator 09/14/20 20:00 81 09/14/20 19:50 65/31 09/14/20 19:21 78 35 50 09/14/20 16:30 97.5 84 26 78/58 (65) 90 09/14/20 16:00 50 09/14/20 16:00 Mechanical Ventilator 09/14/20 16:00 93 09/14/20 16:00 97.5 83 24 94/60 (71) 94 09/14/20 15:05 87 32 50 09/14/20 12:00 95 09/14/20 12:00 50 09/14/20 12:00 Mechanical Ventilator 09/14/20 12:00 97.8 93 26 105/61 (76) 95 09/14/20 11:05 98 31 50 09/14/20 09:02 103 109/60 09/14/20 08:48 50 09/14/20 08:00 Mechanical Ventilator 09/14/20 08:00 91 09/14/20 08:00 97.7 103 28 109/60 (76) 94 09/14/20 07:15 88 28 50 09/14/20 04:00 92 09/14/20 04:00 97.5 103 28 134/66 (88) 100 09/14/20 03:50 50 09/14/20 03:50 Mechanical Ventilator 09/14/20 03:06 96 31 50 09/14/20 00:11 Mechanical Ventilator 09/14/20 00:00 97.9 90 28 132/59 (83) 98 09/14/20 00:00 90 09/14/20 00:00 60 ROS: unchanged from my evaluation of 08/02/20 HEENT: Mechanically Ventilated, Thin Trach secretions RHYTHM: NSR, PACs, Afib LUNGS: bilateral rhonchi, trach site clean CARDIAC: normal S1 and S2, irregularly irregular, systolic murmur - 1/6 systolic murmurat apex, rapid rate ABDOMEN: normal bowel sounds, non tender, soft, no organomegaly, G-Tube intact EXTREMITIES: normal range of motion, +1 edema Laboratory Tests Test 09/14/20 04:49 White Blood Count 18.9 K/UL (4.8-10.8) H Red Blood Count 3.03 M/UL (4.70-6.10) L Hemoglobin 9.2 G/DL (14.2-18.0) L Hematocrit 26.9 % (42.0-52.0) L Mean Corpuscular Volume 89 FL (80-99) Mean Corpuscular Hemoglobin 30.4 PG (27.0-31.0) Mean Corpuscular Hemoglobin Concent 34.2 G/DL (32.0-36.0) Red Cell Distribution Width 13.9 % (11.6-14.8) Platelet Count 138 K/UL (150-450) L Mean Platelet Volume 9.6 FL (6.5-10.1) Neutrophils (%) (Auto) % (45.0-75.0) Lymphocytes (%) (Auto) % (20.0-45.0) Monocytes (%) (Auto) % (1.0-10.0) Eosinophils (%) (Auto) % (0.0-3.0) Basophils (%) (Auto) % (0.0-2.0) Differential Total Cells Counted 100 Neutrophils % (Manual) 95 % (45-75) H Lymphocytes % (Manual) 4 % (20-45) L Monocytes % (Manual) 1 % (1-10) Eosinophils % (Manual) 0 % (0-3) Basophils % (Manual) 0 % (0-2) Band Neutrophils 0 % (0-8) Platelet Estimate Decreased L Platelet Morphology Normal Red Blood Cell Morphology Normal Sodium Level 138 MMOL/L (136-145) Potassium Level 4.5 MMOL/L (3.5-5.1) Chloride Level 108 MMOL/L (98-107) H Carbon Dioxide Level 29 MMOL/L (21-32) Anion Gap 1 mmol/L (5-15) L Blood Urea Nitrogen 93 mg/dL (7-18) H Creatinine 1.9 MG/DL (0.55-1.30) H Estimat Glomerular Filtration Rate 33.6 mL/min (>60) Glucose Level 144 MG/DL (74-106) H Calcium Level 8.4 MG/DL (8.5-10.1) L Magnesium Level 2.5 MG/DL (1.8-2.4) H Total Bilirubin 0.3 MG/DL (0.2-1.0) Aspartate Amino Transf (AST/SGOT) 42 U/L (15-37) H Alanine Aminotransferase (ALT/SGPT) 51 U/L (12-78) Alkaline Phosphatase 199 U/L (46-116) H Pro-B-Type Natriuretic Peptide 9370 pg/mL (0-125) H Total Protein 5.3 G/DL (6.4-8.2) L Albumin 0.8 G/DL (3.4-5.0) L Globulin 4.5 g/dL Albumin/Globulin Ratio 0.2 (1.0-2.7) L Microbiology Date/Time Source Procedure Growth Status 09/12/20 15:20 Sputum Gram Stain - Final Resulted 09/12/20 15:20 Sputum Culture - Preliminary Gram Negative Bacillus 1 Resulted 09/11/20 23:48 Urine,Clean Catch Urine Culture - Final Michelle Albicans Complete Assessment/Plan Assessment/Plan Probable new infection with early sepsis and shock. Status post uncomplicated PEG Paroxysmal atrial fibrillation with RVR Acute myocardial ischemia with elevated troponin Aspiration risk Sepsis Healthcare acquired PNA Complicated UTI with indwelling catheter Hyponatremia Severe protein calorie malnutrition Acute myocardial ischemia Respiratory failure with hypoxia and hypercarbia - now on mech ventilation Hyperkalemia Ac/chronic diastolic CHF Dehydration/hypernatremia resolved into hyponatremia Acute renal failure with azotemia Occluded left cephalic vein Metabolic acidosis Anemia, multifactorial CRITICAL & GUARDED Trach care Fluid challenge; will likely need pressor. Antimicrobials per ID Vent support with setting sdjusted. Taper O2 more aggressively and monitor acid- base parameters. GTube feedings per GI DVT prophylaxis Continue amiodarone - maintenance dose; titrate beta katya. Replace lytes/Mg++ as needed. Hold antiHTN meds PRBC tx as needed. Sarkis Herman MD Sep 14, 2020 23:15
--- NOTE | 2020-09-14 23:37 | NUR ---
NURSE NOTES: At 2200 BP 103/54, saturating 90% on FIO2 50% changed to 70%, saturating at 94% noted. No new order at this time. At 2337 99/53, ST, HR of 103 noted. FIO2 70, saturating at 95%. ABG order received and RT at the bedside noted.
--- NOTE | 2020-09-14 23:58 | NUR ---
NURSE NOTES: Notified and regarding ABG result, no new order at this time. Pt on dopamine at 5mcg, BP of 90/47 noted, SR noted. Pulse ox at 95%. Will continue to monitor.
[2020-09-15] VITALS (17 sets, daily range): BP systolic 85–113; BP diastolic 49–72
--- NOTE | 2020-09-15 04:41 | NUR ---
NURSE NOTES: Pt lying in the bed. BP of 99/59 noted, on dopamine at 5mcg/kg/hr. Vent, AC 28/550/60%/PEEP10, saturating at 95%. Will continue to monitor.
[2020-09-15 05:46] LABS: HEMATOCRIT 26.4 % (42.0-52.0); HEMOGLOBIN 9.1 G/DL (14.2-18.0); MEAN CORPUSCULAR VOLUME 89 FL (80-99); PLATELET COUNT 130 K/UL (150-450); RED BLOOD COUNT 2.97 M/UL (4.70-6.10); RED CELL DISTRIBUTION WIDTH 14.2 % (11.6-14.8)
[2020-09-15 06:04] LABS: WHITE BLOOD COUNT 23.2 K/UL (4.8-10.8)
[2020-09-15 06:12] LABS: ALBUMIN 0.7 G/DL (3.4-5.0); ALBUMIN/GLOBULIN RATIO 0.2 (1.0-2.7); BILIRUBIN,TOTAL 0.4 MG/DL (0.2-1.0); CALCIUM 7.8 MG/DL (8.5-10.1); CREATININE 2.2 MG/DL (0.55-1.30); POTASSIUM 4.8 MMOL/L (3.5-5.1)
--- NOTE | 2020-09-15 07:29 | NUR ---
NURSE HAND-OFF REPORT: Important Events on Shift: On dopamine 5mcg, SBP 90s noted. SR, ST noted. Patient Status: poor Diet: on hold Pending Orders: [] Pending Results/Labs:[] Pending MD notification:[] Latest Vital Signs: Temperature 97.0 , Pulse 97 , B/P 96 /58 , Respiratory Rate 30 , O2 SAT 95 , Mechanical Ventilator, O2 Flow Rate 70.0 . Vital Sign Comment: [] EKG Rhythm: Sinus Rhythm Rhythm change?: N Notified?: N -Dr. Virgil KURTZ Response: Message left await call Latest José Fall Score: 75 Fall Risk: High Risk Safety Measures: Call light Within Reach, Bed Alarm Zone 1, Side Rails Side Rails x3, Bed position Low and Locked. Fall Precautions: Yellow Socks Yellow Gown Door Sign Patient Fall Education Report given to BLANE Cano.
--- NOTE | 2020-09-15 07:30 | NUR ---
NURSE NOTES: Received report from Sofi ARGUELLES.
--- NOTE | 2020-09-15 08:28 | NUR ---
NURSE NOTES: Pt. in bed, obtunded. No sign of distress. Mech. vent. dependent with setting AC28/VT550/Fi O2 at 50%/P10. No grimacing noted. HOB elevated at all times. On GTF Nephro at 40cc/hr. Currently feeding on hold due to pt. need to be placed flat in bed r/t low B/P. IV site at left FA #22g. and left hand #22g. in placed patent/intact running Dopa 5mcg/kg/min. Bed in low position, locked. Call light within reach. Will cont. to monitor.
[2020-09-15] MEDS: Amiodarone 200mg tab NG SCH (08:56)
[2020-09-15] MEDS: Heparin 5000 units/ml inj SUBQ SCH ×2 (08:57→20:47)
--- NOTE | 2020-09-15 09:45 | NUR ---
NURSE NOTES: Seen by Dr. Chhaya Luo with new order of diflucan. WBC 23.[address] Luo made aware.
--- NOTE | 2020-09-15 09:50 | Infectious Diseases Prog Note ---
Assessment/Plan Assessment/Plan A: 1. Gram negative pneumonia 2. COVID-19 test is negative. 3. Urinary tract infection with lakshmi 4. Hypertension. 5. Dementia. 6. Respiratory failure intubated 7. Parkinson's disease 8. Fungal UTI treated 9. Hyperkalemia 10. R elbow deep tissue injury 11. Leukocytosis, worsening PLAN: Continue Cefepime Add Fluconazole Will f/u cultures Subjective ROS Limited/Unobtainable: Yes Constitutional: Denies: fever Allergies: Coded Allergies: VANCOMYCIN (Verified Allergy, Severe, hive, 08/27/20) Objective Last 24 Hour Vital Signs Date Time Temp Pulse Resp B/P (MAP) Pulse Ox O2 Delivery O2 Flow Rate FiO2 09/15/20 08:57 101 101/65 09/15/20 08:00 50 09/15/20 08:00 97.2 101 24 101/65 (77) 100 09/15/20 07:00 96/58 09/15/20 06:45 97 30 60 09/15/20 06:00 94/50 09/15/20 06:00 94/50 (65) 09/15/20 05:00 94/70 09/15/20 05:00 94/70 (78) 09/15/20 04:00 Mechanical Ventilator 09/15/20 04:00 101 09/15/20 04:00 101/52 09/15/20 04:00 50 09/15/20 04:00 97.0 98 31 101/52 (68) 95 09/15/20 03:00 104/61 (75) 09/15/20 03:00 104/61 09/15/20 02:45 99 31 60 09/15/20 02:00 96/50 (65) 09/15/20 02:00 96/50 09/15/20 01:00 95/52 (66) 09/15/20 01:00 95/52 09/15/20 00:00 50 09/15/20 00:00 87/49 09/15/20 00:00 96.4 102 30 87/49 (62) 96 09/15/20 00:00 Mechanical Ventilator 09/14/20 23:52 100 09/14/20 23:00 99/53 09/14/20 23:00 99/53 (68) 09/14/20 22:11 98 28 50 09/14/20 22:00 103/54 09/14/20 22:00 103/54 (70) 09/14/20 21:00 85/40 09/14/20 21:00 100 80/51 09/14/20 21:00 103 26 85/40 (55) 91 09/14/20 20:00 97.2 77 26 66/32 (43) 91 09/14/20 20:00 50 09/14/20 20:00 66/32 09/14/20 20:00 Mechanical Ventilator 09/14/20 20:00 81 09/14/20 19:50 65/31 09/14/20 19:21 78 35 50 09/14/20 16:30 97.5 84 26 78/58 (65) 90 09/14/20 16:00 50 09/14/20 16:00 Mechanical Ventilator 09/14/20 16:00 93 09/14/20 16:00 97.5 83 24 94/60 (71) 94 09/14/20 15:05 87 32 50 09/14/20 12:00 95 09/14/20 12:00 50 09/14/20 12:00 Mechanical Ventilator 09/14/20 12:00 97.8 93 26 105/61 (76) 95 09/14/20 11:05 98 31 50 Height (Feet): 5 Height (Inches): 4.00 Weight (Pounds): 147 HEENT: status post trach Respiratory/Chest: lungs clear, other - on ventilator Cardiovascular: tachycardia Abdomen: soft, non tender Extremities: other - gneralized edema Skin: ulcers, other - elbows Neurologic/Psychiatric: unresponsiveness, aphasia Microbiology Date/Time Source Procedure Growth Status 09/12/20 15:20 Sputum Gram Stain - Final Resulted 09/12/20 15:20 Sputum Culture - Preliminary Raoultella Planticola Gram Negative Bacillus 2 Lakshmi Albicans Resulted Laboratory Tests Test 09/14/20 23:36 09/15/20 03:45 Arterial Blood pH 7.274 (7.350-7.450) Arterial Blood Partial Pressure CO2 58.2 mmHg (35.0-45.0) *H Arterial Blood Partial Pressure O2 63.3 mmHg (75.0-100.0) L Arterial Blood HCO3 26.4 mmol/L (22.0-26.0) H Arterial Blood Oxygen Saturation 90.1 % (95-100) L Arterial Blood Base Excess -1 (-2-2) Emile Test Positive White Blood Count 23.2 K/UL (4.8-10.8) *H Red Blood Count 2.97 M/UL (4.70-6.10) L Hemoglobin 9.1 G/DL (14.2-18.0) L Hematocrit 26.4 % (42.0-52.0) L Mean Corpuscular Volume 89 FL (80-99) Mean Corpuscular Hemoglobin 30.7 PG (27.0-31.0) Mean Corpuscular Hemoglobin Concent 34.6 G/DL (32.0-36.0) Red Cell Distribution Width 14.2 % (11.6-14.8) Platelet Count 130 K/UL (150-450) L Mean Platelet Volume 10.9 FL (6.5-10.1) H Neutrophils (%) (Auto) % (45.0-75.0) Lymphocytes (%) (Auto) % (20.0-45.0) Monocytes (%) (Auto) % (1.0-10.0) Eosinophils (%) (Auto) % (0.0-3.0) Basophils (%) (Auto) % (0.0-2.0) Neutrophils % (Manual) Pending Lymphocytes % (Manual) Pending Platelet Estimate Pending Platelet Morphology Pending Sodium Level 140 MMOL/L (136-145) Potassium Level 4.8 MMOL/L (3.5-5.1) Chloride Level 109 MMOL/L (98-107) H Carbon Dioxide Level 29 MMOL/L (21-32) Anion Gap 2 mmol/L (5-15) L Blood Urea Nitrogen 99 mg/dL (7-18) H Creatinine 2.2 MG/DL (0.55-1.30) H Estimat Glomerular Filtration Rate 28.4 mL/min (>60) Glucose Level 93 MG/DL (74-106) Calcium Level 7.8 MG/DL (8.5-10.1) L Total Bilirubin 0.4 MG/DL (0.2-1.0) Aspartate Amino Transf (AST/SGOT) 46 U/L (15-37) H Alanine Aminotransferase (ALT/SGPT) 48 U/L (12-78) Alkaline Phosphatase 204 U/L (46-116) H Troponin I 0.210 ng/mL (0.000-0.056) Total Protein 4.7 G/DL (6.4-8.2) L Albumin 0.7 G/DL (3.4-5.0) L Globulin 4.0 g/dL Albumin/Globulin Ratio 0.2 (1.0-2.7) L Current Medications Medications (Trade) Dose Ordered Sig/Javon Route PRN Reason Start Time Stop Time Status Last Admin Dose Admin Amiodarone HCl (Cordarone) 200 mg DAILY NG 09/04/20 09:00 11/15/20 08:59 09/15/20 08:56 Cefepime HCl 1 gm/ Dextrose 55 ml @ 110 mls/hr Q24H IVPB 09/12/20 12:00 09/19/20 11:59 09/14/20 12:22 Dopamine HCl/ Dextrose 250 ml @ 12.502 mls/ hr Q20H IV 09/14/20 19:45 09/17/20 19:44 09/14/20 19:50 Heparin Sodium (Porcine) (Heparin 5000 units/ml) 5,000 units EVERY 12 HOURS SUBQ 08/03/20 09:00 09/17/20 08:59 09/15/20 08:57 Hydralazine HCl (Apresoline) 25 mg Q6H PRN NG SBP above 160 08/11/20 22:30 11/05/20 00:29 08/12/20 15:09 Lansoprazole (Prevacid) 30 mg DAILY NG 08/30/20 09:00 09/29/20 08:59 09/15/20 08:56 Metoprolol Tartrate (Lopressor) 25 mg Q12HR NG 08/13/20 09:00 11/11/20 08:59 09/14/20 09:02 aBldev Luo MD Sep 15, 2020 09:50
[2020-09-15] MEDS ORDERED: D5 1/2NS 1000ml IV ONE (10:18)
[2020-09-15] MEDS: Fluconazole 100mg tab NG SCH (10:36)
--- NOTE | 2020-09-15 12:00 | NUR ---
NURSE NOTES: Turned and repositioned. No sign of distress. No grimacing noted.
[2020-09-15] MEDS: Cefepime HCl 1 GM in D5W 55 ML IVPB SCH (12:24)
--- NOTE | 2020-09-15 13:54 | NUR ---
RD ASSESSMENT & RECOMMENDATIONS SEE CARE ACTIVITY FOR COMPLETE ASSESSMENT DAILY ESTIMATED NEEDS: Needs based on Underweight, critical care/ 45kg 30-35 kcals/kg 8195-1935 total kcals 1.2-2 g protein/kg 54-90 g total protein 25-30 mL/kg 6952-2190 total fluid mLs NUTRITION DIAGNOSIS: * Increased kcal/prot needs R/T underweight status, wound healing as evidenced by pt @ 73% IBW, w/ BMI of 16.5, low BMI per guidelines, now w/ new wounds, including DTPI wounds x 4 and unstageable wound, refer to eval. * Swallowing difficulty R/T dysphagia, respiratory status as evidenced by s/p failed video swallow study, w/ rec for NPO, s/p NGT insertion for NGT feeds, s/p oral intubation (08/19), now s/p trach placement (08/27),pending PEG placement. CURRENT TF:Nepro @ 40ml/hr x 24 hrs ENTERAL NUTRITION RECOMMENDATIONS: WITH HEMODYNAMIC STABILITY -> Nepro @ 36ml/hr x 24 hrs to provide 864ml, 1555 kcal, 70g pro, 628ml free H2O * LOWER goal rate to 36ml/hr x 24 hrs not to exceed est needs. * flush per MD, HOB over 30 degrees --------- WITHOUT HEMODYNAMIC STABILITY, rec trophic feeding of Nepro @ 10ml/hr x 24 hrs if able to keep HOB >30 degrees ADDITIONAL RECOMMENDATIONS: * Wt@ SNF on 07/2900=781suw (48kg) fluctuating daily wts, rec recalibrated bedscale wt (wts now 60's kg) * Monitor lytes -> K previously consistently elevated, continue Nepro * Rec NISS w/ TF, rec accuchecks * Consider increasing water flushes: BUN trending up * Wound care: MVI x1, Vit C 500mg QD, ZnSO4 220mg QD x 10 days + Dread BID via PEG
[2020-09-15] MEDS: DOPamine 400mg/250ml 250 ML IV SCH (14:29)
--- NOTE | 2020-09-15 14:33 | Surgery Progress Note ---
Surgery Progress Note Subjective Procedure Performed trach Additional Comments worsening leukocytosis inevitable decline ill appearing Objective Last 24 Hour Vital Signs Date Time Temp Pulse Resp B/P (MAP) Pulse Ox O2 Delivery O2 Flow Rate FiO2 09/15/20 14:29 72/53 09/15/20 13:00 85/52 (63) 09/15/20 12:00 96.8 92 113/57 (75) 09/15/20 12:00 Mechanical Ventilator 09/15/20 12:00 50 09/15/20 11:29 91 09/15/20 11:00 102/60 (74) 09/15/20 10:45 99 29 60 09/15/20 10:00 100/67 (78) 09/15/20 09:00 102/65 (77) 09/15/20 08:57 101 101/65 09/15/20 08:00 50 09/15/20 08:00 97.2 101 24 101/65 (77) 100 09/15/20 08:00 Mechanical Ventilator 09/15/20 07:33 100 09/15/20 07:00 96/58 09/15/20 06:45 97 30 60 09/15/20 06:00 94/50 09/15/20 06:00 94/50 (65) 09/15/20 05:00 94/70 09/15/20 05:00 94/70 (78) 09/15/20 04:00 Mechanical Ventilator 09/15/20 04:00 101 09/15/20 04:00 101/52 09/15/20 04:00 50 09/15/20 04:00 97.0 98 31 101/52 (68) 95 09/15/20 03:00 104/61 (75) 09/15/20 03:00 104/61 09/15/20 02:45 99 31 60 09/15/20 02:00 96/50 (65) 09/15/20 02:00 96/50 09/15/20 01:00 95/52 (66) 09/15/20 01:00 95/52 09/15/20 00:00 50 09/15/20 00:00 87/49 09/15/20 00:00 96.4 102 30 87/49 (62) 96 09/15/20 00:00 Mechanical Ventilator 09/14/20 23:52 100 09/14/20 23:00 99/53 09/14/20 23:00 99/53 (68) 09/14/20 22:11 98 28 50 09/14/20 22:00 103/54 09/14/20 22:00 103/54 (70) 09/14/20 21:00 85/40 09/14/20 21:00 100 80/51 09/14/20 21:00 103 26 85/40 (55) 91 09/14/20 20:00 97.2 77 26 66/32 (43) 91 09/14/20 20:00 50 09/14/20 20:00 66/32 09/14/20 20:00 Mechanical Ventilator 09/14/20 20:00 81 09/14/20 19:50 65/31 09/14/20 19:21 78 35 50 09/14/20 16:30 97.5 84 26 78/58 (65) 90 09/14/20 16:00 50 09/14/20 16:00 Mechanical Ventilator 09/14/20 16:00 93 09/14/20 16:00 97.5 83 24 94/60 (71) 94 09/14/20 15:05 87 32 50 I&O Intake and Output 09/14/20 09/15/20 19:00 07:00 Intake Total 460 ml 150.024 ml Output Total 450 ml Balance 10 ml 150.024 ml Free Water 100 ml IV Total 150.024 ml Tube Feeding 360 ml 0 ml Output Urine Total 450 ml # Bowel Movements 1 Dressing: saturated Cardiovascular: RSR Respiratory: decreased breath sounds Abdomen: soft, non-tender, present bowel sounds Extremities: no tenderness, no cyanosis, other Laboratory Tests Test 09/14/20 23:36 09/15/20 03:45 Arterial Blood pH 7.274 (7.350-7.450) Arterial Blood Partial Pressure CO2 58.2 mmHg (35.0-45.0) *H Arterial Blood Partial Pressure O2 63.3 mmHg (75.0-100.0) L Arterial Blood HCO3 26.4 mmol/L (22.0-26.0) H Arterial Blood Oxygen Saturation 90.1 % (95-100) L Arterial Blood Base Excess -1 (-2-2) Emile Test Positive White Blood Count 23.2 K/UL (4.8-10.8) *H Red Blood Count 2.97 M/UL (4.70-6.10) L Hemoglobin 9.1 G/DL (14.2-18.0) L Hematocrit 26.4 % (42.0-52.0) L Mean Corpuscular Volume 89 FL (80-99) Mean Corpuscular Hemoglobin 30.7 PG (27.0-31.0) Mean Corpuscular Hemoglobin Concent 34.6 G/DL (32.0-36.0) Red Cell Distribution Width 14.2 % (11.6-14.8) Platelet Count 130 K/UL (150-450) L Mean Platelet Volume 10.9 FL (6.5-10.1) H Neutrophils (%) (Auto) % (45.0-75.0) Lymphocytes (%) (Auto) % (20.0-45.0) Monocytes (%) (Auto) % (1.0-10.0) Eosinophils (%) (Auto) % (0.0-3.0) Basophils (%) (Auto) % (0.0-2.0) Differential Total Cells Counted 100 Neutrophils % (Manual) 90 % (45-75) H Lymphocytes % (Manual) 1 % (20-45) L Monocytes % (Manual) 1 % (1-10) Eosinophils % (Manual) 0 % (0-3) Basophils % (Manual) 0 % (0-2) Band Neutrophils 8 % (0-8) Platelet Estimate Decreased L Platelet Morphology Normal Anisocytosis 1+ Sodium Level 140 MMOL/L (136-145) Potassium Level 4.8 MMOL/L (3.5-5.1) Chloride Level 109 MMOL/L (98-107) H Carbon Dioxide Level 29 MMOL/L (21-32) Anion Gap 2 mmol/L (5-15) L Blood Urea Nitrogen 99 mg/dL (7-18) H Creatinine 2.2 MG/DL (0.55-1.30) H Estimat Glomerular Filtration Rate 28.4 mL/min (>60) Glucose Level 93 MG/DL (74-106) Calcium Level 7.8 MG/DL (8.5-10.1) L Total Bilirubin 0.4 MG/DL (0.2-1.0) Aspartate Amino Transf (AST/SGOT) 46 U/L (15-37) H Alanine Aminotransferase (ALT/SGPT) 48 U/L (12-78) Alkaline Phosphatase 204 U/L (46-116) H Troponin I 0.210 ng/mL (0.000-0.056) Total Protein 4.7 G/DL (6.4-8.2) L Albumin 0.7 G/DL (3.4-5.0) L Globulin 4.0 g/dL Albumin/Globulin Ratio 0.2 (1.0-2.7) L Plan Problems: (1) Pneumonia (2) Hypoxia (3) Sepsis Assessment & Plan: respiratory insufficiency prolonged ventilatory support failed weaning trials weaning vent as much as possible anticipate prolong vent support trach indicated and recommended will obtain consent plan for trach as able to wean thank you cont weaning will follow with recs s/p trach wean sedation wean vent no active bleeding noted h/h noted trend labs worsening prognosis guarded peg 09/08 cont tf Pt deconditioned and presented on admission with multiple Pressure Injuries , Generalized edema. Weeping edema bilat upper extremities and and trunk.Large Purpura ventral R forearm. Unstageable Pressure Injury R elbow(L)5cm x (W)5cm. Base of wound is 100% conrad slough. Edges erythematous but adherent to base of wound. Periwound is indurated and erythematous. No elevation in skin temp noted. DTPI L elbow. Base of Pressure injury is purpuric and indurated.(L)2cm x (W)1.8c m. Penile torsion noted. Irregular shaped- Full thickness Ulcer at base of shaft (L)4cm x (W)4cm. Base of wound is 100% slough . Marginal erythema along edges. No exudate noted. DTPI Sacrum. Base of Pressure Injury is Purpuric at [place] cleft and Sacrococcy geal areas with surrounding Maroon borders. Non-blanchable erythema without induration R and L ischial tuberosities. DTPI L Heel and plantar aspect(L)9cm x (W)5cm. Base of Pressure injury is Is maroon and fluctuant. DTPI R Heel and Plantar aspect of Heel(L)8.5cm x (W)8cm. Base of Pressure injury is maroon with fluctuance. Tx.Plan:Cleanse wound R Elbow with Saline. Apply TheraHoney.Apply Cavilon Skin Barrier Periwound. Cover with Optifoam Drsg. Change Daily and prn. Apply Cavilon Skin Barrier to L Elbow. Cover with Optifoam drsg. Change every 7 days and prn. Cleanse Ulcer at Base of Shaft of Penis with Saline. Apply Triad Paste Twice Daily and prn. Apply Moisture Barrier Paste to Sacrum. Cover with Optifoam drsg. Change every 3 days and prn. Apply Moisture Barrier Paste to R and L Ischial tuberosities. Cover each site with Optifoam drsgs. Change every 3 Days and prn. Apply Cavilon Skin Barrier to both heels. Cover each heel with Optifoam drsgs. Change every 7 days and prn. Elevate both Upper extremities with Pillow. Reposition at least every 2hours or as tolerated. Off-load heels with pillows. APM/EUNICE Mattress overlay. (4) UTI (urinary tract infection) (5) Pneumonia (6) AMS (altered mental status) Isaias Loaiza Sep 15, 2020 14:33
--- NOTE | 2020-09-15 15:00 | NUR ---
NURSE NOTES: Grand dtsaturnino MenjivarRuth called and updated her. Asked to transfer her call and put the phone to his ear and she will talk to him.
--- NOTE | 2020-09-15 18:36 | Pulmonology Progress Note ---
Subjective ROS Limited/Unobtainable: Yes Constitutional: Denies: fever Gastrointestinal/Abdominal: Reports: other - will have NG tube placement today Allergies: Coded Allergies: VANCOMYCIN (Verified Allergy, Severe, hive, 08/27/20) All Systems: reviewed and negative except above Objective Last 24 Hour Vital Signs Date Time Temp Pulse Resp B/P (MAP) Pulse Ox O2 Delivery O2 Flow Rate FiO2 09/15/20 18:00 85/48 09/15/20 17:00 92/57 09/15/20 16:00 Mechanical Ventilator 09/15/20 16:00 50 09/15/20 16:00 107/72 09/15/20 16:00 97.1 93 107/72 (84) 09/15/20 15:30 98 09/15/20 15:00 91/55 (67) 09/15/20 15:00 91/55 09/15/20 14:35 97 29 60 09/15/20 14:29 72/53 09/15/20 14:00 91/59 (70) 09/15/20 14:00 91/59 09/15/20 13:00 85/52 09/15/20 13:00 85/52 (63) 09/15/20 12:00 96.8 92 113/57 (75) 09/15/20 12:00 Mechanical Ventilator 09/15/20 12:00 113/57 09/15/20 12:00 50 09/15/20 11:29 91 09/15/20 11:00 102/60 (74) 09/15/20 11:00 102/60 09/15/20 10:45 99 29 60 09/15/20 10:00 100/67 09/15/20 10:00 100/67 (78) 09/15/20 09:00 102/65 (77) 09/15/20 09:00 102/65 09/15/20 08:57 101 101/65 09/15/20 08:00 50 09/15/20 08:00 97.2 101 24 101/65 (77) 100 09/15/20 08:00 Mechanical Ventilator 09/15/20 08:00 101/65 09/15/20 07:33 100 09/15/20 07:00 96/58 09/15/20 06:45 97 30 60 09/15/20 06:00 94/50 12/29/20 06:00 94/50 (65) 09/15/20 05:00 94/70 09/15/20 05:00 94/70 (78) 09/15/20 04:00 Mechanical Ventilator 09/15/20 04:00 101 09/15/20 04:00 101/52 09/15/20 04:00 50 09/15/20 04:00 97.0 98 31 101/52 (68) 95 09/15/20 03:00 104/61 (75) 09/15/20 03:00 104/61 09/15/20 02:45 99 31 60 09/15/20 02:00 96/50 (65) 09/15/20 02:00 96/50 09/15/20 01:00 95/52 (66) 09/15/20 01:00 95/52 09/15/20 00:00 50 09/15/20 00:00 87/49 09/15/20 00:00 96.4 102 30 87/49 (62) 96 09/15/20 00:00 Mechanical Ventilator 09/14/20 23:52 100 09/14/20 23:00 99/53 09/14/20 23:00 99/53 (68) 09/14/20 22:11 98 28 50 09/14/20 22:00 103/54 09/14/20 22:00 103/54 (70) 09/14/20 21:00 85/40 09/14/20 21:00 100 80/51 09/14/20 21:00 103 26 85/40 (55) 91 09/14/20 20:00 97.2 77 26 66/32 (43) 91 09/14/20 20:00 50 09/14/20 20:00 66/32 09/14/20 20:00 Mechanical Ventilator 09/14/20 20:00 81 09/14/20 19:50 65/31 09/14/20 19:21 78 35 50 Intake and Output 09/14/20 09/15/20 19:00 07:00 Intake Total 460 ml 150.024 ml Output Total 450 ml Balance 10 ml 150.024 ml Free Water 100 ml IV Total 150.024 ml Tube Feeding 360 ml 0 ml Output Urine Total 450 ml # Bowel Movements 1 Laboratory Tests 09/14/20 23:36: Arterial Blood pH 7.274L, Arterial Blood Partial Pressure CO2 58.2*H, Arterial Blood Partial Pressure O2 63.3L, Arterial Blood HCO3 26.4H, Arterial Blood Oxygen Saturation 90.1L, Arterial Blood Base Excess -1, Emile Test Positive 09/15/20 03:45: White Blood Count 23.2*H, Red Blood Count 2.97L, Hemoglobin 9.1L, Hematocrit 26.4L, Mean Corpuscular Volume 89, Mean Corpuscular Hemoglobin 30.7, Mean Corpuscular Hemoglobin Concent 34.6, Red Cell Distribution Width 14.2, Platelet Count 130L, Mean Platelet Volume 10.9H, Neutrophils (%) (Auto) , Lymphocytes (%) (Auto) , Monocytes (%) (Auto) , Eosinophils (%) (Auto) , Basophils (%) (Auto) , Differential Total Cells Counted 100, Neutrophils % (Manual) 90H, Lymphocytes % (Manual) 1L, Monocytes % (Manual) 1, Eosinophils % (Manual) 0, Basophils % (Manual) 0, Band Neutrophils 8, Platelet Estimate DecreasedL, Platelet Morpholog y Normal, Anisocytosis 1+, Sodium Level 140, Potassium Level 4.8, Chloride Level 109H, Carbon Dioxide Level 29, Anion Gap 2L, Blood Urea Nitrogen 99H, Creatinine 2.2H, Estimat Glomerular Filtration Rate 28.4, Glucose Level 93, Calcium Level 7.8L, Total Bilirubin 0.4, Aspartate Amino Transf (AST/SGOT) 46H, Alanine Aminotransferase (ALT/SGPT) 48, Alkaline Phosphatase 204H, Troponin I 0.210H, Total Protein 4.7L, Albumin 0.7L, Globulin 4.0, Albumin/Globulin Ratio 0.2L Current Medications Medications (Trade) Dose Ordered Sig/Javon Route PRN Reason Start Time Stop Time Status Last Admin Dose Admin Amiodarone HCl (Cordarone) 200 mg DAILY NG 09/04/20 09:00 11/15/20 08:59 09/15/20 08:56 Cefepime HCl 1 gm/ Dextrose 55 ml @ 110 mls/hr Q24H IVPB 09/12/20 12:00 09/19/20 11:59 09/15/20 12:24 Dopamine HCl/ Dextrose 250 ml @ 12.502 mls/ hr Q20H IV 09/14/20 19:45 09/17/20 19:44 09/15/20 14:29 Fluconazole (Diflucan) 100 mg DAILY NG 09/15/20 10:00 09/22/20 09:59 09/15/20 10:36 Heparin Sodium (Porcine) (Heparin 5000 units/ml) 5,000 units EVERY 12 HOURS SUBQ 08/03/20 09:00 09/17/20 08:59 09/15/20 08:57 Hydralazine HCl (Apresoline) 25 mg Q6H PRN NG SBP above 160 08/11/20 22:30 11/05/20 00:29 08/12/20 15:09 Lansoprazole (Prevacid) 30 mg DAILY NG 08/30/20 09:00 09/29/20 08:59 09/15/20 08:56 Metoprolol Tartrate (Lopressor) 25 mg Q12HR NG 08/13/20 09:00 11/11/20 08:59 09/14/20 09:02 Assessment/Plan Assessment/Plan Pulmonary Progress Note Subjective ROS Limited/Unobtainable: Yes Constitutional: Denies: fever Allergies: Coded Allergies: No Known Allergies (Unverified , 08/02/20) All Systems: reviewed and negative except above Subjective care noted on ventilator, elevatedCO2, FIO2 stable, non gap metabolic acidosis diffuse infiltrates Objective Vital Signs noted Objective WDWN NAD reduced breath sounds bilaterally [id number] NABS nontender no CCE nonfocal on BIPAP poorly responsive Laboratory Tests noted Medications noted Assessment/Plan Assessment/Plan ASSESSMENT: chronic encephalopathy, dementia, diffuse infiltrates, elevated BNP hypertension, recurrent falls, and urinary tract infection, hypoxemia, probable aspiration pneumonia. PLAN care noted respiratory care as is wean [id number] previously d/w family as to poor prognosis and consider terminal care on high oxygen needs repeat CXR and ABG noted palliative care recommended doubt any chance of recovery impression, plan, and exam edited and reviewed in detail care discussed with Sarkis Samano MD Sep 15, 2020 18:36
--- NOTE | 2020-09-15 19:21 | NUR ---
NURSE HAND-OFF REPORT: Cont. on Dopa Important Events on Shift: B/P low. Patient Status: remain stable Diet: Held due to pt. need to lay flat. Pending Orders: n Pending Results/Labs:n Pending notification:n Latest Vital Signs: Temperature 97.1 , Pulse 93 , B/P 85 /48 , Respiratory Rate 28 , O2 SAT 100 , Mechanical Ventilator, O2 Flow Rate 70.0 . Vital Sign Comment: wnl. EKG Rhythm: Sinus Rhythm Rhythm change?: N Notified?: N -Dr. Virgil KURTZ Response: Message left await call Latest José Fall Score: 75 Fall Risk: High Risk Safety Measures: Call light Within Reach, Bed Alarm Zone 1, Side Rails Side Rails x3, Bed position Low and Locked. Fall Precautions: Yellow Socks Yellow Gown Door Sign Patient Fall Education Report given to Shilo ARGUELLES.
--- NOTE | 2020-09-15 19:30 | NUR ---
NURSE NOTES: Received pt in bed, eys open but is unable to track or follow commnds. Pt on vent via trach not showing any signs of distress at present settings. G tube clamped because pt's head cannot be raised as his BP tends to go down. Dopamine infusing at 5mcg/kg/min via left hand #22 VS stable and pt is SR on the monitor.
--- NOTE | 2020-09-15 20:33 | General Progress Note ---
Subjective Allergies: Coded Allergies: VANCOMYCIN (Verified Allergy, Severe, hive, 08/27/20) Subjective above noted Non responsive on GT feeds d/w RN doing poorly Objective Last 24 Hour Vital Signs Date Time Temp Pulse Resp B/P (MAP) Pulse Ox O2 Delivery O2 Flow Rate FiO2 09/15/20 20:00 98.1 93 100/56 (71) 28 09/15/20 18:44 93 28 60 09/15/20 18:00 85/48 09/15/20 17:00 92/57 09/15/20 16:00 Mechanical Ventilator 09/15/20 16:00 50 09/15/20 16:00 107/72 09/15/20 16:00 97.1 93 107/72 (84) 09/15/20 15:30 98 09/15/20 15:00 91/55 (67) 09/15/20 15:00 91/55 09/15/20 14:35 97 29 60 09/15/20 14:29 72/53 09/15/20 14:00 91/59 (70) 09/15/20 14:00 91/59 09/15/20 13:00 85/52 09/15/20 13:00 85/52 (63) 09/15/20 12:00 96.8 92 113/57 (75) 09/15/20 12:00 Mechanical Ventilator 09/15/20 12:00 113/57 09/15/20 12:00 50 09/15/20 11:29 91 09/15/20 11:00 102/60 (74) 09/15/20 11:00 102/60 09/15/20 10:45 99 29 60 09/15/20 10:00 100/67 09/15/20 10:00 100/67 (78) 09/15/20 09:00 102/65 (77) 09/15/20 09:00 102/65 09/15/20 08:57 101 101/65 09/15/20 08:00 50 09/15/20 08:00 97.2 101 24 101/65 (77) 100 09/15/20 08:00 Mechanical Ventilator 09/15/20 08:00 101/65 09/15/20 07:33 100 09/15/20 07:00 96/58 09/15/20 06:45 97 30 60 09/15/20 06:00 94/50 09/15/20 06:00 94/50 (65) 09/15/20 05:00 94/70 09/15/20 05:00 94/70 (78) 09/15/20 04:00 Mechanical Ventilator 09/15/20 04:00 101 09/15/20 04:00 101/52 09/15/20 04:00 50 09/15/20 04:00 97.0 98 31 101/52 (68) 95 09/15/20 03:00 104/61 (75) 09/15/20 03:00 104/61 09/15/20 02:45 99 31 60 09/15/20 02:00 96/50 (65) 09/15/20 02:00 96/50 09/15/20 01:00 95/52 (66) 09/15/20 01:00 95/52 09/15/20 00:00 50 09/15/20 00:00 87/49 09/15/20 00:00 96.4 102 30 87/49 (62) 96 09/15/20 00:00 Mechanical Ventilator 09/14/20 23:52 100 09/14/20 23:00 99/53 09/14/20 23:00 99/53 (68) 09/14/20 22:11 98 28 50 09/14/20 22:00 103/54 09/14/20 22:00 103/54 (70) 09/14/20 21:00 85/40 09/14/20 21:00 100 80/51 09/14/20 21:00 103 26 85/40 (55) 91 Intake and Output 09/14/20 09/15/20 19:00 07:00 Intake Total 460 ml 150.024 ml Output Total 450 ml Balance 10 ml 150.024 ml Free Water 100 ml IV Total 150.024 ml Tube Feeding 360 ml 0 ml Output Urine Total 450 ml # Bowel Movements 1 Laboratory Tests 09/14/20 23:36: Arterial Blood pH 7.274L, Arterial Blood Partial Pressure CO2 58.2*H, Arterial Blood Partial Pressure O2 63.3L, Arterial Blood HCO3 26.4H, Arterial Blood Oxyge n Saturation 90.1L, Arterial Blood Base Excess -1, Emile Test Positive 09/15/20 03:45: White Blood Count 23.2*H, Red Blood Count 2.97L, Hemoglobin 9.1L, Hematocrit 26.4L, Mean Corpuscular Volume 89, Mean Corpuscular Hemoglobin 30.7, Mean Corpuscular Hemoglobin Concent 34.6, Red Cell Distribution Width 14.2, Platelet Count 130L, Mean Platelet Volume 10.9H, Neutrophils (%) (Auto) , Lymphocytes (%) (Auto) , Monocytes (%) (Auto) , Eosinophils (%) (Auto) , Basophils (%) (Auto) , Differential Total Cells Counted 100, Neutrophils % (Manual) 90H, Lymphocytes % (Manual) 1L, Monocytes % (Manual) 1, Eosinophils % (Manual) 0, Basophils % (Manual) 0, Band Neutrophils 8, Platelet Estimate DecreasedL, Platelet Morphology Normal, Anisocytosis 1+, Sodium Level 140, Potassium Level 4.8, Chloride Level 109H, Carbon Dioxide Level 29, Anion Gap 2L, Blood Urea Nitrogen 99H, Creatinine 2.2H, Estimat Glomerular Filtration Rate 28.4, Glucose Level 93, Calcium Level 7.8L, Total Bilirubin 0.4, Aspartate Amino Transf (AST/SGOT) 46H, Alanine Aminotransferase (ALT/SGPT) 48, Alkaline Phosphatase 204H, Troponin I 0.210H, Total Protein 4.7L, Albumin 0.7L, Globulin 4.0, Albumin/Globulin Ratio 0.2L Height (Feet): 5 Height (Inches): 4.00 Weight (Pounds): 147 Objective Elderly man unresponsive NCAT supple, (+) trach scattered ronchi RR abd soft, (+) GT trace edema Assessment/Plan Status: stable, not improved Assessment/Plan: Assessment - Leukocytosis - respiratory failure, s/p Trach - Parox a fib - acute myocardial ischemia - PNA/sepsis - dysphagia - s/p PEG - elevated glucose - poor prognosis Recommendations - continue low K TF formula - PEG care - ID follow up - Pulmonary toilet, [facility] Arely Parks MD Sep 15, 2020 20:33
--- NOTE | 2020-09-15 23:33 | Cardiology Progress Note ---
Subjective DATE OF SERVICE: Sep 15, 2020 BP was unstable and dropped to 70's systolic; dopamine added for support (5mcg/kg/min) S/P PEG placement 09/08/20 Remains on vent via trach; O2 requirements increased again. Monitor: sinus rhythm with no episodes of bradycardia. ABG (09/09) 7.26/63/168 CXR (09/10) unchanged bilateral infiltrates Objective Last 24 Hour Vital Signs Date Time Temp Pulse Resp B/P (MAP) Pulse Ox O2 Delivery O2 Flow Rate FiO2 09/15/20 23:08 100 37 70 09/15/20 20:53 96 86/47 09/15/20 20:00 98.1 93 100/56 (71) 28 09/15/20 20:00 Mechanical Ventilator 09/15/20 20:00 50 09/15/20 20:00 94 09/15/20 18:44 93 28 60 09/15/20 18:00 85/48 09/15/20 17:00 92/57 09/15/20 16:00 Mechanical Ventilator 09/15/20 16:00 50 09/15/20 16:00 107/72 09/15/20 16:00 97.1 93 107/72 (84) 09/15/20 15:30 98 09/15/20 15:00 91/55 (67) 09/15/20 15:00 91/55 09/15/20 14:35 97 29 60 09/15/20 14:29 72/53 09/15/20 14:00 91/59 (70) 09/15/20 14:00 91/59 09/15/20 13:00 85/52 09/15/20 13:00 85/52 (63) 09/15/20 12:00 96.8 92 113/57 (75) 09/15/20 12:00 Mechanical Ventilator 09/15/20 12:00 113/57 09/15/20 12:00 50 09/15/20 11:29 91 09/15/20 11:00 102/60 (74) 09/15/20 11:00 102/60 09/15/20 10:45 99 29 60 09/15/20 10:00 100/67 09/15/20 10:00 100/67 (78) 09/15/20 09:00 102/65 (77) 09/15/20 09:00 102/65 09/15/20 08:57 101 101/65 09/15/20 08:00 50 09/15/20 08:00 97.2 101 24 101/65 (77) 100 09/15/20 08:00 Mechanical Ventilator 09/15/20 08:00 101/65 09/15/20 07:33 100 09/15/20 07:00 96/58 09/15/20 06:45 97 30 60 09/15/20 06:00 94/50 09/15/20 06:00 94/50 (65) 09/15/20 05:00 94/70 09/15/20 05:00 94/70 (78) 09/15/20 04:00 Mechanical Ventilator 09/15/20 04:00 101 09/15/20 04:00 101/52 09/15/20 04:00 50 09/15/20 04:00 97.0 98 31 101/52 (68) 95 09/15/20 03:00 104/61 (75) 09/15/20 03:00 104/61 09/15/20 02:45 99 31 60 09/15/20 02:00 96/50 (65) 09/15/20 02:00 96/50 09/15/20 01:00 95/52 (66) 09/15/20 01:00 95/52 09/15/20 00:00 50 09/15/20 00:00 87/49 09/15/20 00:00 96.4 102 30 87/49 (62) 96 09/15/20 00:00 Mechanical Ventilator 09/14/20 23:52 100 ROS: unchanged from my evaluation of 08/02/20 HEENT: Mechanically Ventilated, Thin Trach secretions RHYTHM: NSR, PACs, Afib LUNGS: bilateral rhonchi, trach site clean CARDIAC: normal S1 and S2, irregularly irregular, systolic murmur - 1/6 systolic murmurat apex, rapid rate ABDOMEN: normal bowel sounds, non tender, soft, no organomegaly, G-Tube intact EXTREMITIES: normal range of motion, +1 edema Laboratory Tests Test 09/14/20 23:36 09/15/20 03:45 Arterial Blood pH 7.274 (7.350-7.450) Arterial Blood Partial Pressure CO2 58.2 mmHg (35.0-45.0) *H Arterial Blood Partial Pressure O2 63.3 mmHg (75.0-100.0) L Arterial Blood HCO3 26.4 mmol/L (22.0-26.0) H Arterial Blood Oxygen Saturation 90.1 % (95-100) L Arterial Blood Base Excess -1 (-2-2) Emile Test Positive White Blood Count 23.2 K/UL (4.8-10.8) *H Red Blood Count 2.97 M/UL (4.70-6.10) L Hemoglobin 9.1 G/DL (14.2-18.0) L Hematocrit 26.4 % (42.0-52.0) L Mean Corpuscular Volume 89 FL (80-99) Mean Corpuscular Hemoglobin 30.7 PG (27.0-31.0) Mean Corpuscular Hemoglobin Concent 34.6 G/DL (32.0-36.0) Red Cell Distribution Width 14.2 % (11.6-14.8) Platelet Count 130 K/UL (150-450) L Mean Platelet Volume 10.9 FL (6.5-10.1) H Neutrophils (%) (Auto) % (45.0-75.0) Lymphocytes (%) (Auto) % (20.0-45.0) Monocytes (%) (Auto) % (1.0-10.0) Eosinophils (%) (Auto) % (0.0-3.0) Basophils (%) (Auto) % (0.0-2.0) Differential Total Cells Counted 100 Neutrophils % (Manual) 90 % (45-75) H Lymphocytes % (Manual) 1 % (20-45) L Monocytes % (Manual) 1 % (1-10) Eosinophils % (Manual) 0 % (0-3) Basophils % (Manual) 0 % (0-2) Band Neutrophils 8 % (0-8) Platelet Estimate Decreased L Platelet Morphology Normal Anisocytosis 1+ Sodium Level 140 MMOL/L (136-145) Potassium Level 4.8 MMOL/L (3.5-5.1) Chloride Level 109 MMOL/L (98-107) H Carbon Dioxide Level 29 MMOL/L (21-32) Anion Gap 2 mmol/L (5-15) L Blood Urea Nitrogen 99 mg/dL (7-18) H Creatinine 2.2 MG/DL (0.55-1.30) H Estimat Glomerular Filtration Rate 28.4 mL/min (>60) Glucose Level 93 MG/DL (74-106) Calcium Level 7.8 MG/DL (8.5-10.1) L Total Bilirubin 0.4 MG/DL (0.2-1.0) Aspartate Amino Transf (AST/SGOT) 46 U/L (15-37) H Alanine Aminotransferase (ALT/SGPT) 48 U/L (12-78) Alkaline Phosphatase 204 U/L (46-116) H Troponin I 0.210 ng/mL (0.000-0.056) Total Protein 4.7 G/DL (6.4-8.2) L Albumin 0.7 G/DL (3.4-5.0) L Globulin 4.0 g/dL Albumin/Globulin Ratio 0.2 (1.0-2.7) L Assessment/Plan Assessment/Plan Possible new infection with early sepsis. Status post uncomplicated PEG Paroxysmal atrial fibrillation with RVR Acute myocardial ischemia with elevated troponin Aspiration risk Sepsis Healthcare acquired PNA Complicated UTI with indwelling catheter Hyponatremia Severe protein calorie malnutrition Acute myocardial ischemia Respiratory failure with hypoxia and hypercarbia - now on mech ventilation Hyperkalemia Ac/chronic diastolic CHF Dehydration/hypernatremia resolved into hyponatremia Acute renal failure with azotemia Occluded left cephalic vein Metabolic acidosis Anemia, multifactorial CRITICAL & GUARDED Try to taper off dopamine Trach care Hold diuresis with low BP Antimicrobials per ID Vent support with setting sdjusted. Taper O2 more aggressively and monitor acid- base parameters. GTube feedings per GI DVT prophylaxis Continue amiodarone - maintenance dose; titrate beta katya. Replace lytes/Mg++ as needed. Titrate anti-HTN regimen as needed. PRBC tx as needed. I spoke to gr dtr (family rep) today extensively and made her aware of acute on chronic deterioration over past 24hrs. I stressed the gravity of his prognosis. I also encouraged them to arrange through malt house kiln operator a visit from his . At present they want to continue current level of support and full code; I did tell them that it would be unlikely that patient would survive a code. Sarkis Herman MD Sep 15, 2020 23:33
[2020-09-16] VITALS (7 sets, daily range): BP systolic 87–134; BP diastolic 52–64
--- NOTE | 2020-09-16 | NUR ---
NURSE NOTES: Pt remains stable with stable VS. Pt repositioned for comfort.
--- NOTE | 2020-09-16 04:00 | NUR ---
NURSE NOTES: Pt's condition remains stable. VS remain stable. AM care given and pt repositioned. Will continue to monitor pt.
--- NOTE | 2020-09-16 04:16 | Cardiology Progress Note ---
Subjective DATE OF SERVICE: Sep 16, 2020 BP parameters remain marginal; dopamine continues for support (5mcg/kg/min) S/P PEG placement 09/08/20. New sputum cultures with gm neg pathogen and others. Remains on vent via trach; O2 requirements increased again. Monitor: sinus rhythm with no episodes of bradycardia. ABG (09/14) 7.27/58/63 CXR (09/10) unchanged bilateral infiltrates Objective Last 24 Hour Vital Signs Date Time Temp Pulse Resp B/P (MAP) Pulse Ox O2 Delivery O2 Flow Rate FiO2 09/16/20 02:44 88 29 65 09/16/20 00:00 98.1 95 95/54 (68) 28 09/16/20 00:00 94 09/16/20 00:00 50 09/16/20 00:00 Mechanical Ventilator 09/15/20 23:08 100 37 70 09/15/20 20:53 96 86/47 09/15/20 20:00 98.1 93 100/56 (71) 28 09/15/20 20:00 Mechanical Ventilator 09/15/20 20:00 50 09/15/20 20:00 94 09/15/20 18:44 93 28 60 09/15/20 18:00 85/48 09/15/20 17:00 92/57 09/15/20 16:00 Mechanical Ventilator 09/15/20 16:00 50 09/15/20 16:00 107/72 09/15/20 16:00 97.1 93 107/72 (84) 09/15/20 15:30 98 09/15/20 15:00 91/55 (67) 09/15/20 15:00 91/55 09/15/20 14:35 97 29 60 09/15/20 14:29 72/53 09/15/20 14:00 91/59 (70) 09/15/20 14:00 91/59 09/15/20 13:00 85/52 09/15/20 13:00 85/52 (63) 09/15/20 12:00 96.8 92 113/57 (75) 09/15/20 12:00 Mechanical Ventilator 09/15/20 12:00 113/57 09/15/20 12:00 50 09/15/20 11:29 91 09/15/20 11:00 102/60 (74) 09/15/20 11:00 102/60 09/15/20 10:45 99 29 60 09/15/20 10:00 100/67 09/15/20 10:00 100/67 (78) 09/15/20 09:00 102/65 (77) 09/15/20 09:00 102/65 09/15/20 08:57 101 101/65 09/15/20 08:00 50 09/15/20 08:00 97.2 101 24 101/65 (77) 100 09/15/20 08:00 Mechanical Ventilator 09/15/20 08:00 101/65 09/15/20 07:33 100 09/15/20 07:00 96/58 09/15/20 06:45 97 30 60 09/15/20 06:00 94/50 09/15/20 06:00 94/50 (65) 09/15/20 05:00 94/70 09/15/20 05:00 94/70 (78) ROS: unchanged from my evaluation of 08/02/20 HEENT: Mechanically Ventilated, Thin Trach secretions RHYTHM: NSR, PACs, Afib LUNGS: bilateral rhonchi, trach site clean CARDIAC: normal S1 and S2, irregularly irregular, systolic murmur - 1/6 systolic murmurat apex, rapid rate ABDOMEN: normal bowel sounds, non tender, soft, no organomegaly, G-Tube intact EXTREMITIES: normal range of motion, +1 edema Assessment/Plan Assessment/Plan Healthcare associated PNA Status post uncomplicated PEG Paroxysmal atrial fibrillation with RVR Acute myocardial ischemia with elevated troponin Aspiration risk Sepsis with shock Healthcare acquired PNA Complicated UTI with indwelling catheter Hyponatremia Severe protein calorie malnutrition Acute myocardial ischemia Respiratory failure with hypoxia and hypercarbia - now on mech ventilation Hyperkalemia Ac/chronic diastolic CHF Dehydration/hypernatremia resolved into hyponatremia Acute renal failure with azotemia Occluded left cephalic vein Metabolic acidosis Anemia, multifactorial CRITICAL & GUARDED Try to taper off dopamine DC metoprolol until off pressors Trach care Hold diuresis with low BP Antimicrobials per ID Vent support with setting sdjusted. Taper O2 more aggressively and monitor acid- base parameters. GTube feedings per GI DVT prophylaxis Continue amiodarone - maintenance dose. Replace lytes/Mg++ as needed. Titrate anti-HTN regimen as needed. PRBC tx as needed. Check CXR today and follow up l I spoke to gr dtr (family rep) today extensively and made her aware of acute on chronic deterioration over past 24hrs. I stressed the gravity of his prognosis. I also encouraged them to arrange through wash house supervisor a visit from his . At present they want to continue current level of support and full code; I did tell them that it would be unlikely that patient would survive a code. Sarkis Herman MD Sep 16, 2020 04:16
[2020-09-16] MEDS ORDERED: Acetaminophen 650mg/20.3ml GT PRN (04:30)
[2020-09-16 06:17] LABS: HEMATOCRIT 25.8 % (42.0-52.0); HEMOGLOBIN 8.4 G/DL (14.2-18.0); MEAN CORPUSCULAR VOLUME 91 FL (80-99); PLATELET COUNT 135 K/UL (150-450); RED BLOOD COUNT 2.83 M/UL (4.70-6.10); RED CELL DISTRIBUTION WIDTH 14.4 % (11.6-14.8)
[2020-09-16 06:33] LABS: ALBUMIN 0.6 G/DL (3.4-5.0); ALBUMIN/GLOBULIN RATIO 0.1 (1.0-2.7); BILIRUBIN,TOTAL 0.5 MG/DL (0.2-1.0); CALCIUM 7.9 MG/DL (8.5-10.1); CREATININE 2.4 MG/DL (0.55-1.30); POTASSIUM 5.4 MMOL/L (3.5-5.1)
[2020-09-16 06:35] LABS: WHITE BLOOD COUNT 30.1 K/UL (4.8-10.8)
--- NOTE | 2020-09-16 07:00 | NUR ---
NURSE NOTES: Dr Parks in to see pt. Informed him that feeding had to be stopped because pt's BP tends to go down whenever his head is elevated.
--- NOTE | 2020-09-16 07:24 | NUR ---
NURSE NOTES: Report given to BLANE Hahn.
--- NOTE | 2020-09-16 07:30 | NUR ---
NURSE NOTES: Received pt from BLANE Scherer, pt is awake and confused and obtunded with pain, pt has trach to kayode AC 28 TV 550 FIO2 50 PEEP 10, Pt has g tube in place is working well. pt has rectal tube. pt has intact iv access LH 22G Dopamine 5mc/kg/min is running well. no pain noted at this moment. Dr Herman notified about K 5.4, waiting to call back. All needs attended, bed is locked and is in the lowest position, call light within easy reach. will continue to monitor.
--- NOTE | 2020-09-16 08:41 | NUR ---
NURSE NOTES: Dr Herman called back for K 5.4, no new order received. will continue to monitor.
[2020-09-16] MEDS: Fluconazole 100mg tab NG SCH (08:50)
[2020-09-16] MEDS: Amiodarone 200mg tab NG SCH (08:50)
[2020-09-16] MEDS: Heparin 5000 units/ml inj SUBQ SCH ×2 (08:52→20:27)
--- NOTE | 2020-09-16 08:57 | NUR ---
RADIOLOGY DEPT., CHEST X-RAY DONE.-P.DYE
--- NOTE | 2020-09-16 08:59 | Diagnostic Imaging Report ---
Indication: Dyspnea Technique: One view of the chest Comparison: 09/10/2020 Findings: Extensive bilateral infiltrates are unchanged. Heart size is normal. Left pleural effusion is unchanged. It may be trace pleural fluid on the right as well. Tracheostomy again demonstrated Impression: No significant interval change. Findings as noted
[2020-09-16] MEDS: Cefepime HCl 1 GM in D5W 55 ML IVPB SCH (11:20)
[2020-09-16] MEDS: DOPamine 400mg/250ml 250 ML IV SCH (11:20)
--- NOTE | 2020-09-16 11:42 | Infectious Diseases Prog Note ---
"Assessment/Plan Assessment/Plan antibiotics : cefepime, fluconazole A 1. raoultella | stenotrophomonas pneumonia 2. COVID-19 test is negative. 3. fungal Urinary tract infection 4. Hypertension. 5. Dementia. 6. Respiratory failure s/p tracheostomy 7. leucocytosis increased 8. renal failure P 1. d/c cefepime 2. start levoquin 3. continue fluconazole 5 more days 4. will follow up cultures Subjective ROS Limited/Unobtainable: Yes Allergies: Coded Allergies: VANCOMYCIN (Verified Allergy, Severe, hive, 08/27/20) Objective Last 24 Hour Vital Signs Date Time Temp Pulse Resp B/P (MAP) Pulse Ox O2 Delivery O2 Flow Rate FiO2 09/16/20 11:20 108/53 09/16/20 08:00 97.5 94 96/56 (69) 28 09/16/20 08:00 Mechanical Ventilator 09/16/20 08:00 50 09/16/20 07:46 97 09/16/20 07:06 98 28 65 09/16/20 04:00 98.1 87 105/60 (75) 28 09/16/20 04:00 50 09/16/20 04:00 98 09/16/20 04:00 Mechanical Ventilator 09/16/20 02:44 88 29 65 09/16/20 00:00 98.1 95 95/54 (68) 28 09/16/20 00:00 94 09/16/20 00:00 50 09/16/20 00:00 Mechanical Ventilator 09/15/20 23:08 100 37 70 09/15/20 20:53 96 86/47 09/15/20 20:00 98.1 93 100/56 (71) 28 09/15/20 20:00 Mechanical Ventilator 09/15/20 20:00 50 09/15/20 20:00 94 09/15/20 18:44 93 28 60 09/15/20 18:00 85/48 09/15/20 17:00 92/57 09/15/20 16:00 Mechanical Ventilator 09/15/20 16:00 50 09/15/20 16:00 107/72 09/15/20 16:00 97.1 93 107/72 (84) 09/15/20 15:30 98 09/15/20 15:00 91/55 (67) 09/15/20 15:00 91/55 12/29/20 14:35 97 29 60 09/15/20 14:29 72/53 09/15/20 14:00 91/59 (70) 09/15/20 14:00 91/59 09/15/20 13:00 85/52 09/15/20 13:00 85/52 (63) 09/15/20 12:00 96.8 92 113/57 (75) 09/15/20 12:00 Mechanical Ventilator 09/15/20 12:00 113/57 09/15/20 12:00 50 Height (Feet): 5 Height (Inches): 4.00 Weight (Pounds): 147 HEENT: status post trach Respiratory/Chest: lungs clear Cardiovascular: normal rate, regular rhythm, no gallop/murmur Abdomen: soft, non tender, other - GT Extremities: other - + edema Laboratory Tests Test 09/16/20 05:26 White Blood Count 30.1 K/UL (4.8-10.8) *H Red Blood Count 2.83 M/UL (4.70-6.10) L Hemoglobin 8.4 G/DL (14.2-18.0) L Hematocrit 25.8 % (42.0-52.0) L Mean Corpuscular Volume 91 FL (80-99) Mean Corpuscular Hemoglobin 29.5 PG (27.0-31.0) Mean Corpuscular Hemoglobin Concent 32.4 G/DL (32.0-36.0) Red Cell Distribution Width 14.4 % (11.6-14.8) Platelet Count 135 K/UL (150-450) L Mean Platelet Volume 10.5 FL (6.5-10.1) H Neutrophils (%) (Auto) % (45.0-75.0) Lymphocytes (%) (Auto) % (20.0-45.0) Monocytes (%) (Auto) % (1.0-10.0) Eosinophils (%) (Auto) % (0.0-3.0) Basophils (%) (Auto) % (0.0-2.0) Differential Total Cells Counted 100 Neutrophils % (Manual) 96 % (45-75) H Lymphocytes % (Manual) 1 % (20-45) L Monocytes % (Manual) 3 % (1-10) Eosinophils % (Manual) 0 % (0-3) Basophils % (Manual) 0 % (0-2) Band Neutrophils 0 % (0-8) Platelet Estimate Decreased L Platelet Morphology Normal Hypochromasia 1+ Anisocytosis 1+ Sodium Level 139 MMOL/L (136-145) Potassium Level 5.4 MMOL/L (3.5-5.1) H Chloride Level 107 MMOL/L (98-107) Carbon Dioxide Level 25 MMOL/L (21-32) Anion Gap 7 mmol/L (5-15) Blood Urea Nitrogen 116 mg/dL (7-18) H Creatinine 2.4 MG/DL (0.55-1.30) H Estimat Glomerular Filtration Rate 25.7 mL/min (>60) Glucose Level 73 MG/DL (74-106) L Calcium Level 7.9 MG/DL (8.5-10.1) L Total Bilirubin 0.5 MG/DL (0.2-1.0) Aspartate Amino Transf (AST/SGOT) 39 U/L (15-37) H Alanine Aminotransferase (ALT/SGPT) 34 U/L (12-78) Alkaline Phosphatase 157 U/L (46-116) H Total Protein 4.9 G/DL (6.4-8.2) L Albumin 0.6 G/DL (3.4-5.0) L Globulin 4.3 g/dL Albumin/Globulin Ratio 0.1 (1.0-2.7) L Current Medications Medications (Trade) Dose Ordered Sig/Javon Route PRN Reason Start Time Stop Time Status Last Admin Dose Admin Acetaminophen (Tylenol) 650 mg Q6H PRN GT For Headache 09/16/20 04:30 10/16/20 04:29 Amiodarone HCl (Cordarone) 200 mg DAILY NG 09/04/20 09:00 11/15/20 08:59 09/16/20 08:50 Cefepime HCl 1 gm/ Dextrose 55 ml @ 110 mls/hr Q24H IVPB 09/12/20 12:00 09/19/20 11:59 09/16/20 11:20 Dopamine HCl/ Dextrose 250 ml @ 12.502 mls/ hr Q20H IV 09/14/20 19:45 09/17/20 19:44 09/16/20 11:20 Fluconazole (Diflucan) 100 mg DAILY NG 09/15/20 10:00 09/22/20 09:59 09/16/20 08:50 Heparin Sodium (Porcine) (Heparin 5000 units/ml) 5,000 units EVERY 12 HOURS SUBQ 08/03/20 09:00 09/17/20 08:59 09/16/20 08:52 Lansoprazole (Prevacid) 30 mg DAILY NG 08/30/20 09:00 09/29/20 08:59 09/16/20 08:50 Wagner Christensen MD Sep 16, 2020 11:42"
--- NOTE | 2020-09-16 16:21 | NUR ---
CASE MANAGEMENT:REVIEW 09/16/20 SI:ACUTE RESPIRATORY FAILURE S/P NEW TRACH PLACEMENT AND PEG 97.3 90 28 87/52 94% ON VENT SUPPORT W/50% FIO2 WBC+18.9 IS: DOPAMINE GTT LEVAQUIN GT QD DIFLUCAN GT QD AMIODARONE GT QD HEPARIN SQ Q12 : STEP DOWN UNIT PLAN: DISCHARGE WHEN FIO2 IS 40% OR LESS
--- NOTE | 2020-09-16 16:27 | NUR ---
NURSE NOTES: Dr Herman is aware about PICC needs for Dopamine ordered to insert PICC, noted and carried out. RN called pt's daughter Norma Orr ph: [phone] and she gave me consent for PICC placement and BLANE Schmidt is witness. will continue to monitor.
--- NOTE | 2020-09-16 17:40 | Surgery Progress Note ---
Surgery Progress Note Subjective Procedure Performed trach Additional Comments ill appearing no acute events labs noted micro reviewed Objective Last 24 Hour Vital Signs Date Time Temp Pulse Resp B/P (MAP) Pulse Ox O2 Delivery O2 Flow Rate FiO2 09/16/20 16:00 50 09/16/20 16:00 Mechanical Ventilator 09/16/20 16:00 97.3 90 87/52 (64) 28 09/16/20 15:24 80 09/16/20 15:12 89 28 65 09/16/20 12:32 97 09/16/20 12:00 Mechanical Ventilator 09/16/20 12:00 96.0 96 104/64 (77) 28 09/16/20 12:00 50 09/16/20 11:23 80 28 65 09/16/20 11:20 108/53 09/16/20 08:00 97.5 94 96/56 (69) 28 09/16/20 08:00 Mechanical Ventilator 09/16/20 08:00 50 09/16/20 07:46 97 09/16/20 07:06 98 28 65 09/16/20 04:00 98.1 87 105/60 (75) 28 09/16/20 04:00 50 09/16/20 04:00 98 09/16/20 04:00 Mechanical Ventilator 09/16/20 02:44 88 29 65 09/16/20 00:00 98.1 95 95/54 (68) 28 09/16/20 00:00 94 09/16/20 00:00 50 09/16/20 00:00 Mechanical Ventilator 09/15/20 23:08 100 37 70 09/15/20 20:53 96 86/47 09/15/20 20:00 98.1 93 100/56 (71) 28 09/15/20 20:00 Mechanical Ventilator 09/15/20 20:00 50 09/15/20 20:00 94 09/15/20 18:44 93 28 60 09/15/20 18:00 85/48 I&O Intake and Output 09/15/20 09/16/20 18:59 06:59 Intake Total 150.024 ml 150.0 ml Output Total 200 ml 200 ml Balance -49.976 ml -50.0 ml IV Total 150.024 ml 150.0 ml Tube Feeding 0 ml 0 ml Output Urine Total 200 ml 200 ml # Bowel Movements 1 1 Dressing: other Wound: other Cardiovascular: RSR Respiratory: decreased breath sounds Abdomen: soft, non-tender, present bowel sounds Extremities: no tenderness, no cyanosis Laboratory Tests Test 09/16/20 05:26 White Blood Count 30.1 K/UL (4.8-10.8) *H Red Blood Count 2.83 M/UL (4.70-6.10) L Hemoglobin 8.4 G/DL (14.2-18.0) L Hematocrit 25.8 % (42.0-52.0) L Mean Corpuscular Volume 91 FL (80-99) Mean Corpuscular Hemoglobin 29.5 PG (27.0-31.0) Mean Corpuscular Hemoglobin Concent 32.4 G/DL (32.0-36.0) Red Cell Distribution Width 14.4 % (11.6-14.8) Platelet Count 135 K/UL (150-450) L Mean Platelet Volume 10.5 FL (6.5-10.1) H Neutrophils (%) (Auto) % (45.0-75.0) Lymphocytes (%) (Auto) % (20.0-45.0) Monocytes (%) (Auto) % (1.0-10.0) Eosinophils (%) (Auto) % (0.0-3.0) Basophils (%) (Auto) % (0.0-2.0) Differential Total Cells Counted 100 Neutrophils % (Manual) 96 % (45-75) H Lymphocytes % (Manual) 1 % (20-45) L Monocytes % (Manual) 3 % (1-10) Eosinophils % (Manual) 0 % (0-3) Basophils % (Manual) 0 % (0-2) Band Neutrophils 0 % (0-8) Platelet Estimate Decreased L Platelet Morphology Normal Hypochromasia 1+ Anisocytosis 1+ Sodium Level 139 MMOL/L (136-145) Potassium Level 5.4 MMOL/L (3.5-5.1) H Chloride Level 107 MMOL/L (98-107) Carbon Dioxide Level 25 MMOL/L (21-32) Anion Gap 7 mmol/L (5-15) Blood Urea Nitrogen 116 mg/dL (7-18) H Creatinine 2.4 MG/DL (0.55-1.30) H Estimat Glomerular Filtration Rate 25.7 mL/min (>60) Glucose Level 73 MG/DL (74-106) L Calcium Level 7.9 MG/DL (8.5-10.1) L Total Bilirubin 0.5 MG/DL (0.2-1.0) Aspartate Amino Transf (AST/SGOT) 39 U/L (15-37) H Alanine Aminotransferase (ALT/SGPT) 34 U/L (12-78) Alkaline Phosphatase 157 U/L (46-116) H Total Protein 4.9 G/DL (6.4-8.2) L Albumin 0.6 G/DL (3.4-5.0) L Globulin 4.3 g/dL Albumin/Globulin Ratio 0.1 (1.0-2.7) L Plan Problems: (1) Pneumonia (2) Hypoxia (3) Sepsis Assessment & Plan: respiratory insufficiency prolonged ventilatory support failed weaning trials weaning vent as much as possible anticipate prolong vent support trach indicated and recommended will obtain consent plan for trach as able to wean thank you cont weaning will follow with recs s/p trach wean sedation wean vent no active bleeding noted h/h noted trend labs worsening prognosis guarded peg 09/08 cont tf Pt deconditioned and presented on admission with multiple Pressure Injuries , Generalized edema. Weeping edema bilat upper extremities and and trunk.Large Purpura ventral R forearm. Unstageable Pressure Injury R elbow(L)5cm x (W)5cm. Base of wound is 100% conard slough. Edges erythematous but adherent to base of wound. Periwound is indurated and erythematous. No elevation in skin temp noted. DTPI L elbow. Base of Pressure injury is purpuric and indurated.(L)2cm x (W)1.8cm. Penile torsion noted. Irregular shaped- Full thickness Ulcer at base of shaft (L)4cm x (W)4cm. Base of wound is 100% slough . Marginal erythema along edges. No exudate noted. DTPI Sacrum. Base of Pressure Injury is Purpuric at cleft and Sacrococcygeal areas with surrounding Maroon borders. Non-blanchable erythema without induration R and L ischial tuberosities. DTPI L Heel and plantar aspect(L)9cm x (W)5cm. Base of Pressure injury is Is maroon and fluctuant. DTPI R Heel and Plantar aspect of Heel(L)8.5cm x (W)8cm. Base of Pressure injury is maroon with fluctuance. Tx.Plan:Cleanse wound R Elbow with Saline. Apply TheraHoney.Apply Cavilon Skin Barrier Periwound. Cover with Optifoam Drsg. Change Daily and prn. Apply Cavilon Skin Barrier to L Elbow. Cover with Optifoam drsg. Change every 7 days and prn. Cleanse Ulcer at Base of Shaft of Penis with Saline. Apply Triad Paste Twice Daily and prn. Apply Moisture Barrier Paste to Sacrum. Cover with Optifoam drsg. Change every 3 days and prn. Apply Moisture Barrier Paste to R and L Ischial tuberosities. Cover each site with Optifoam drsgs. Change every 3 Days and prn. Apply Cavilon Skin Barrier to both heels. Cover each heel with Optifoam drsgs. Change every 7 days and prn. Elevate both Upper extremities with Pillow. Reposition at least every 2hours or as tolerated. Off-load heels with pillows. APM/EUNICE Mattress overlay. (4) UTI (urinary tract infection) (5) Pneumonia (6) AMS (altered mental status) Isaias Loaiza Sep 16, 2020 17:40
--- NOTE | 2020-09-16 18:31 | Pulmonology Progress Note ---
"Subjective ROS Limited/Unobtainable: Yes Constitutional: Denies: fever Gastrointestinal/Abdominal: Reports: other - will have NG tube placement today Allergies: Coded Allergies: VANCOMYCIN (Verified Allergy, Severe, hive, 08/27/20) All Systems: reviewed and negative except above Objective Last 24 Hour Vital Signs Date Time Temp Pulse Resp B/P (MAP) Pulse Ox O2 Delivery O2 Flow Rate FiO2 09/16/20 16:00 50 09/16/20 16:00 Mechanical Ventilator 09/16/20 16:00 97.3 90 87/52 (64) 28 09/16/20 15:24 80 09/16/20 15:12 89 28 65 09/16/20 12:32 97 09/16/20 12:00 Mechanical Ventilator 09/16/20 12:00 96.0 96 104/64 (77) 28 09/16/20 12:00 50 09/16/20 11:23 80 28 65 09/16/20 11:20 108/53 09/16/20 08:00 97.5 94 96/56 (69) 28 09/16/20 08:00 Mechanical Ventilator 09/16/20 08:00 50 09/16/20 07:46 97 09/16/20 07:06 98 28 65 09/16/20 04:00 98.1 87 105/60 (75) 28 09/16/20 04:00 50 09/16/20 04:00 98 09/16/20 04:00 Mechanical Ventilator 09/16/20 02:44 88 29 65 09/16/20 00:00 98.1 95 95/54 (68) 28 09/16/20 00:00 94 09/16/20 00:00 50 09/16/20 00:00 Mechanical Ventilator 09/15/20 23:08 100 37 70 09/15/20 20:53 96 86/47 09/15/20 20:00 98.1 93 100/56 (71) 28 09/15/20 20:00 Mechanical Ventilator 09/15/20 20:00 50 09/15/20 20:00 94 09/15/20 18:44 93 28 60 Intake and Output 09/15/20 09/16/20 19:00 07:00 Intake Total 150.022 ml 150.0 ml Output Total 200 ml 200 ml Balance -49.978 ml -50.0 ml IV Total 150.022 ml 150.0 ml Tube Feeding 0 ml 0 ml Output Urine Total 200 ml 200 ml # Bowel Movements 1 1 Laboratory Tests 09/16/20 05:26: White Blood Count 30.1*H, Red Blood Count 2.83L, Hemoglobin 8.4L, Hematocrit 25.8L, Mean Corpuscular Volume 91, Mean Corpuscular Hemoglobin 29.5, Mean Corpuscular Hemoglobin Concent 32.4, Red Cell Distribution Width 14.4, Platelet Count 135L, Mean Platelet Volume 10.5H, Neutrophils (%) (Auto) , Lymphocytes (%) (Auto) , Monocytes (%) (Auto) , Eosinophils (%) (Auto) , Basophils (%) (Auto) , Differential Total Cells Counted 100, Neutrophils % (Manual) 96H, Lymphocytes % (Manual) 1L, Monocytes % (Manual) 3, Eosinophils % (Manual) 0, Basophils % (Manual) 0, Band Neutrophils 0, Platelet Estimate DecreasedL, Platelet Morphology Normal, Hypochromasia 1+, Anisocytosis 1+, Sodium Level 139, Potassium Level 5.4H, Chloride Level 107, Carbon Dioxide Level 25, Anion Gap 7, Blood Urea Nitrogen 116H, Creatinine 2.4H, Estimat Glomerular Filtration Rate 25.7, Glucose Level 73L, Calcium Level 7.9L, Total Bilirubin 0.5, Aspartate Amino Transf (AST/SGOT) 39H, Alanine Aminotransferase (ALT/SGPT) 34, Alkaline Phosphatase 157H, Total Protein 4.9L, Albumin 0.6L, Globulin 4.3, Albumin/Globulin Ratio 0.1L Current Medications Medications (Trade) Dose Ordered Sig/Javon Route PRN Reason Start Time Stop Time Status Last Admin Dose Admin Acetaminophen (Tylenol) 650 mg Q6H PRN GT For Headache 09/16/20 04:30 10/16/20 04:29 Amiodarone HCl (Cordarone) 200 mg DAILY NG 09/04/20 09:00 11/15/20 08:59 09/16/20 08:50 Dopamine HCl/ Dextrose 250 ml @ 12.502 mls/ hr Q20H IV 09/14/20 19:45 09/17/20 19:44 09/16/20 11:20 Fluconazole (Diflucan) 100 mg DAILY NG 09/15/20 10:00 09/22/20 09:59 09/16/20 08:50 Heparin Sodium (Porcine) (Heparin 5000 units/ml) 5,000 units EVERY 12 HOURS SUBQ 08/03/20 09:00 09/17/20 08:59 09/16/20 08:52 Lansoprazole (Prevacid) 30 mg DAILY NG 08/30/20 09:00 09/29/20 08:59 09/16/20 08:50 Levofloxacin (Levaquin) 250 mg DAILY ORAL 09/16/20 11:56 09/23/20 11:55 09/16/20 12:04 Assessment/Plan Assessment/Plan Pulmonary Progress Note Subjective ROS Limited/Unobtainable: Yes Constitutional: Denies: fever Allergies: Coded Allergies: No Known Allergies (Unverified , 08/02/20) All Systems: reviewed and negative except above Subjective care noted on ventilator, elevatedCO2, FIO2 stable, non gap metabolic acidosis diffuse infiltrates raoultella | stenotrophomonas pneumonia, UTI Objective Vital Signs noted Objective WDWN NAD reduced breath sounds bilaterally [id number] NABS nontender no CCE nonfocal on BIPAP poorly responsive Laboratory Tests noted Medications noted Assessment/Plan Assessment/Plan ASSESSMENT: chronic encephalopathy, dementia, diffuse infiltrates, elevated BNP hypertension, recurrent falls, and urinary tract infection, hypoxemia, probable aspiration pneumonia. PLAN antibiotics per ID cardiology following care noted respiratory care as is wean FIO2 as tolerated previously d/w family as to poor prognosis and consider terminal care on high oxygen needs repeat CXR and ABG noted palliative care recommended doubt any chance of recovery impression, plan, and exam edited and reviewed in detail care discussed with Sarkis Samano MD Sep 16, 2020 18:31"
--- NOTE | 2020-09-16 18:45 | General Progress Note ---
Subjective Allergies: Coded Allergies: VANCOMYCIN (Verified Allergy, Severe, hive, 08/27/20) Subjective above noted Non responsive on GT feeds d/w RN on low dose dopamine doing poorly Objective Last 24 Hour Vital Signs Date Time Temp Pulse Resp B/P (MAP) Pulse Ox O2 Delivery O2 Flow Rate FiO2 09/16/20 16:00 50 09/16/20 16:00 Mechanical Ventilator 09/16/20 16:00 97.3 90 87/52 (64) 28 09/16/20 15:24 80 09/16/20 15:12 89 28 65 09/16/20 12:32 97 09/16/20 12:00 Mechanical Ventilator 09/16/20 12:00 96.0 96 104/64 (77) 28 09/16/20 12:00 50 09/16/20 11:23 80 28 65 09/16/20 11:20 108/53 09/16/20 08:00 97.5 94 96/56 (69) 28 09/16/20 08:00 Mechanical Ventilator 09/16/20 08:00 50 09/16/20 07:46 97 09/16/20 07:06 98 28 65 09/16/20 04:00 98.1 87 105/60 (75) 28 09/16/20 04:00 50 09/16/20 04:00 98 09/16/20 04:00 Mechanical Ventilator 09/16/20 02:44 88 29 65 09/16/20 00:00 98.1 95 95/54 (68) 28 09/16/20 00:00 94 09/16/20 00:00 50 09/16/20 00:00 Mechanical Ventilator 09/15/20 23:08 100 37 70 09/15/20 20:53 96 86/47 09/15/20 20:00 98.1 93 100/56 (71) 28 09/15/20 20:00 Mechanical Ventilator 09/15/20 20:00 50 09/15/20 20:00 94 Intake and Output 09/15/20 09/16/20 19:00 07:00 Intake Total 150.022 ml 150.0 ml Output Total 200 ml 200 ml Balance -49.978 ml -50.0 ml IV Total 150.022 ml 150.0 ml Tube Feeding 0 ml 0 ml Output Urine Total 200 ml 200 ml # Bowel Movements 1 1 Laboratory Tests 09/16/20 05:26: White Blood Count 30.1*H, Red Blood Count 2.83L, Hemoglobin 8.4L, Hematocrit 25.8L, Mean Corpuscular Volume 91, Mean Corpuscular Hemoglobin 29.5, Mean Corpuscular Hemoglobin Concent 32.4, Red Cell Distribution Width 14.4, Platelet Count 135L, Mean Platelet Volume 10.5H, Neutrophils (%) (Auto) , Lymphocytes (%) (Auto) , Monocytes (%) (Auto) , Eosinophils (%) (Auto) , Basophils (%) (Auto) , Differential Total Cells Counted 100, Neutrophils % (Manual) 96H, Lymphocytes % (Manual) 1L, Monocytes % (Manual) 3, Eosinophils % (Manual) 0, Basophils % (Manual) 0, Band Neutrophils 0, Platelet Estimate DecreasedL, Platelet Morphology Normal, Hypochromasia 1+, Anisocytosis 1+, Sodium Level 139, Potassium Level 5.4H, Chloride Level 107, Carbon Dioxide Level 25, Anion Gap 7, Blood Urea Nitrogen 116H, Creatinine 2.4H, Estimat Glomerular Filtration Rate 25.7, Glucose Level 73L, Calcium Level 7.9L, Total Bilirubin 0.5, Aspartate Amino Transf (AST/SGOT) 39H, Alanine Aminotransferase (ALT/SGPT) 34, Alkaline Phosphatase 157H, Total Protein 4.9L, Albumin 0.6L, Globulin 4.3, Albumin/Globulin Ratio 0.1L Height (Feet): 5 Height (Inches): 4.00 Weight (Pounds): 147 Objective Elderly man unresponsive NCAT supple, (+) trach scattered ronchi RR abd soft, (+) GT trace edema Assessment/Plan Status: stable, not improved Assessment/Plan: Assessment - Leukocytosis - respiratory failure, s/p Trach - Parox a fib - acute myocardial ischemia - PNA/sepsis - dysphagia - s/p PEG - elevated glucose - poor prognosis Recommendations - continue low K TF formula - PEG care - ID follow up - Pulmonary toilet, community health care Arely Parks MD Sep 16, 2020 18:45
--- NOTE | 2020-09-16 19:30 | NUR ---
NURSE HAND-OFF REPORT: Important Events on Shift: Patient Status: Diet: Pending Orders: Pending Results/Labs: Pending MD notification: Latest Vital Signs: Temperature 97.3 , Pulse 90 , B/P 87 /52 , Respiratory Rate 28 , O2 SAT 28 , Mechanical Ventilator, O2 Flow Rate 70.0 . Vital Sign Comment: EKG Rhythm: Sinus Rhythm Rhythm change?: N MD Notified?: N -Dr. Virgil KURTZ Response: Message left await call Latest José Fall Score: 75 Fall Risk: High Risk Safety Measures: Call light Within Reach, Bed Alarm Zone 1, Side Rails Side Rails x3, Bed position Low and Locked. Fall Precautions: Yellow Socks Yellow Gown Door Sign Patient Fall Education Report given to . Pt is awake WITH spo2 97% BP 91/50 HR 90, no stress noted. Endorsed plan of care,endorsed to F/U for PICC placement.
--- NOTE | 2020-09-16 19:39 | NUR ---
NURSE NOTES: Received report from BLANE Hahn. Pt is asleep, responds to name, non-verbal. Pt does not appear to be in distress or pain. SpO2 is 97% on AC 28, TV 550, FiO2 50%, PEEP 10. baggage screener shows SR. GT is intact, 5ml residual, running Nepro 40cc/hr. Rectal tube intact, draining well to gravity. L FA 22g is running Dopamine 5mcg/kg/min, L hand 22g asymptomatic and flushing well. Skin issues noted. HOB elevated, side rails x3, call light within reach, bed alarmed, locked, and in lowest position. WIll continue to monitor. Will continue plan of care.
--- NOTE | 2020-09-16 20:34 | General Progress Note ---
Subjective ROS Limited/Unobtainable: No Constitutional: Reports: malaise, weakness HEENT: Reports: no symptoms Cardiovascular: Reports: no symptoms Respiratory: Reports: cough, shortness of breath Gastrointestinal/Abdominal: Reports: difficulty swallowing Genitourinary: Reports: no symptoms Neurologic/Psychiatric: Reports: pre-existing deficit Endocrine: Reports: no symptoms Hematologic/Lymphatic: Reports: anemia Allergies: Coded Allergies: VANCOMYCIN (Verified Allergy, Severe, hive, 08/27/20) All Systems: reviewed and negative except above Subjective events noted. awake. hypotensive on dopamine. improved o2 sats. cxr still with extensive infiltrates. tolerating feeds. Cr worse Objective Last 24 Hour Vital Signs Date Time Temp Pulse Resp B/P (MAP) Pulse Ox O2 Delivery O2 Flow Rate FiO2 09/16/20 20:00 Mechanical Ventilator 09/16/20 20:00 50 09/16/20 16:00 50 09/16/20 16:00 Mechanical Ventilator 09/16/20 16:00 97.3 90 87/52 (64) 28 09/16/20 15:24 80 09/16/20 15:12 89 28 65 09/16/20 12:32 97 09/16/20 12:00 Mechanical Ventilator 09/16/20 12:00 96.0 96 104/64 (77) 28 09/16/20 12:00 50 09/16/20 11:23 80 28 65 09/16/20 11:20 108/53 09/16/20 08:00 97.5 94 96/56 (69) 28 09/16/20 08:00 Mechanical Ventilator 09/16/20 08:00 50 09/16/20 07:46 97 09/16/20 07:06 98 28 65 09/16/20 04:00 98.1 87 105/60 (75) 28 09/16/20 04:00 50 09/16/20 04:00 98 09/16/20 04:00 Mechanical Ventilator 09/16/20 02:44 88 29 65 09/16/20 00:00 98.1 95 95/54 (68) 28 09/16/20 00:00 94 09/16/20 00:00 50 09/16/20 00:00 Mechanical Ventilator 09/15/20 23:08 100 37 70 09/15/20 20:53 96 86/47 Intake and Output 09/15/20 09/16/20 19:00 07:00 Intake Total 150.022 ml 150.0 ml Output Total 200 ml 200 ml Balance -49.978 ml -50.0 ml IV Total 150.022 ml 150.0 ml Tube Feeding 0 ml 0 ml Output Urine Total 200 ml 200 ml # Bowel Movements 1 1 Laboratory Tests 09/16/20 05:26: White Blood Count 30.1*H, Red Blood Count 2.83L, Hemoglobin 8.4L, Hematocrit 25.8L, Mean Corpuscular Volume 91, Mean Corpuscular Hemoglobin 29.5, Mean Corpuscular Hemoglobin Concent 32.4, Red Cell Distribution Width 14.4, Platelet Count 135L, Mean Platelet Volume 10.5H, Neutrophils (%) (Auto) , Lymphocytes (%) (Auto) , Monocytes (%) (Auto) , Eosinophils (%) (Auto) , Basophils (%) (Auto) , Differential Total Cells Counted 100, Neutrophils % (Manual) 96H, Lymphocytes % (Manual) 1L, Monocytes % (Manual) 3, Eosinophils % (Manual) 0, Basophils % (Manual) 0, Band Neutrophils 0, Platelet Estimate DecreasedL, Platelet Morphology Normal, Hypochromasia 1+, Anisocytosis 1+, Sodium Level 139, Potassium Level 5.4H, Chloride Level 107, Carbon Dioxide Level 25, Anion Gap 7, Blood Urea Nitrogen 116H, Creatinine 2.4H, Estimat Glomerular Filtration Rate 25.7, Glucose Level 73L, Calcium Level 7.9L, Total Bilirubin 0.5, Aspartate Amino Transf (AST/SGOT) 39H, Alanine Aminotransferase (ALT/SGPT) 34, Alkaline Phosphatase 157H, Total Protein 4.9L, Albumin 0.6L, Globulin 4.3, Albumin/Globulin Ratio 0.1L Height (Feet): 5 Height (Inches): 4.00 Weight (Pounds): 147 Objective General Appearance: WD/WN, confused, thin. on the vent EENT: normal ENT inspection Neck: non-tender, normal alignment, supple. trach midline Cardiovascular: normal rate, regular rhythm Respiratory/Chest: chest wall non-tender, lungs clear, normal breath sounds, no respiratory distress, no accessory muscle use Abdomen: normal bowel sounds, non tender, soft, no organomegaly Edema: no edema noted Arm (L), no edema noted Arm (R) Assessment/Plan Problem List: (1) Pneumonia ICD Codes: J18.9 - Pneumonia, unspecified organism SNOMED: 240495137 (2) Hypoxia ICD Codes: R09.02 - Hypoxemia SNOMED: 213098065 (3) AMS (altered mental status) ICD Codes: R41.82 - Altered mental status, unspecified SNOMED: 632010772 (4) UTI (urinary tract infection) ICD Codes: N39.0 - Urinary tract infection, site not specified SNOMED: 28151269 (5) Sepsis ICD Codes: A41.9 - Sepsis, unspecified organism SNOMED: 51121503 Status: stable, not improved Assessment/Plan: vent support trach care resp rx abx per ID suctioning gentle hydration dopamine as needed picc line for pressors monitor labs/lytes replace as needes dvt/stress ulcer prophylaxis turn q2 poor prognosis Chavez Gilmore MD Sep 16, 2020 20:34
--- NOTE | 2020-09-16 22:59 | NUR ---
NURSE NOTES: Pt is asleep, no signs of distress noted. SBP 122 on dopamine 5mcg/kg/min. WIll continue to monitor.
[2020-09-17] VITALS (8 sets, daily range): BP systolic 95–122; BP diastolic 50–76
--- NOTE | 2020-09-17 01:20 | NUR ---
NURSE NOTES: Oral care and turned pt. No distress or pain noted. BP stable
--- NOTE | 2020-09-17 03:20 | NUR ---
NURSE NOTES: Cleaned pt and changed linens and gowns. Oral care performed. Dressings redressed. Pt tolerated well. Will continue plan of care. Will continue to monitor.
[2020-09-17 05:03] LABS: HEMATOCRIT 25.9 % (42.0-52.0); HEMOGLOBIN 8.4 G/DL (14.2-18.0); MEAN CORPUSCULAR VOLUME 96 FL (80-99); PLATELET COUNT 75 K/UL (150-450); RED BLOOD COUNT 2.71 M/UL (4.70-6.10); RED CELL DISTRIBUTION WIDTH 14.8 % (11.6-14.8)
[2020-09-17 05:22] LABS: WHITE BLOOD COUNT 29.1 K/UL (4.8-10.8)
[2020-09-17 05:37] LABS: ALBUMIN 0.7 G/DL (3.4-5.0); ALBUMIN/GLOBULIN RATIO 0.2 (1.0-2.7); BILIRUBIN,TOTAL 0.4 MG/DL (0.2-1.0); CALCIUM 7.6 MG/DL (8.5-10.1); CREATININE 2.5 MG/DL (0.55-1.30); POTASSIUM 5.6 MMOL/L (3.5-5.1)
[2020-09-17] MEDS: DOPamine 400mg/250ml 250 ML IV SCH ×2 (06:55→22:13)
--- NOTE | 2020-09-17 07:04 | NUR ---
RESPIRATORY NOTE: PT RECEIVED STABLE ON CMV WITH CURRENT SETTINGS: 28, 550, 60%, +10. ALARMS ARE ON AND AUDIBLE. VENT CIRCUIT IS SECURE AND OUT OF THE WAY. AIRWAY IS MIDLINE, SECURE AND PATENT. NO S/S OF RESPIRATORY DISTRESS NOTED AT THIS TIME WILL CONTINUE TO CLOSELY MONITOR.
--- NOTE | 2020-09-17 07:25 | NUR ---
NURSE NOTES: RECEIVED REPORT FROM SALOMÓN ARGUELLES . RECEIVED PT WITH HOB ELEVATED 45 DEGREE ,OBTUNDED ,NON- VERBAL TRACH TO VENT DEPENDENT.PT TOLERATING WELL CURRENTS VENT SETTING ,OS SAT 100% NOTED AT THIS ,RENDERED TRACH CARE AND ORAL HYGIENE MOD AMT OF YELLOWISH SECRETIONS NOTED . PT RECEIVING DOPAMINE DRIP 2 5mcg/kg/min connected ON LT FA INFUSING WELL.PT RECEIVING GTF NEPRO 40CC/HRS TOLERATING WELL ,NO RESIDUAL NOTED.FULL BODY ASSESSMENT DONE. PT ON SCHEDULE FOR PICC-LINE PLACEMENT TODAY.PT REPOSITIONED IN BED TO PROVIDE COMFORT AND TO PREVENT SKIN BREAK DOWN. NO ACUTE DISTRESS NOTED AT THIS TIME. WILL CONT TO MONITOR.
--- NOTE | 2020-09-17 07:25 | NUR ---
NURSE HAND-OFF REPORT: Important Events on Shift:[No acute events] Patient Status: [Poor] Diet: [Nepro 40cc/hr] Pending Orders: [NA] Pending Results/Labs:[NA] Pending MD notification:[NA] Latest Vital Signs: Temperature 98.1 , Pulse 89 , B/P 122 /71 , Respiratory Rate 28 , O2 SAT 28 , Mechanical Ventilator, O2 Flow Rate 70.0 . Vital Sign Comment: [Stable] EKG Rhythm: Sinus Rhythm Rhythm change?: N Notified?: N -Dr. Virgil KURTZ Response: Message left await call Latest José Fall Score: 75 Fall Risk: High Risk Safety Measures: Call light Within Reach, Bed Alarm Zone 1, Side Rails Side Rails x3, Bed position Low and Locked. Fall Precautions: Yellow Socks Yellow Gown Door Sign Patient Fall Education Report given to [[place], RN].
--- NOTE | 2020-09-17 08:01 | NUR ---
CASE MANAGEMENT:REVIEW 09/17/20 SI:ACUTE RESPIRATORY FAILURE S/P NEW TRACH PLACEMENT AND PEG 98.1 89 28 96% ON VENT SUPPORT W/60% FIO2 WBC+29.1 IS: DOPAMINE GTT LEVAQUIN GT QD DIFLUCAN GT QD AMIODARONE GT QD HEPARIN SQ Q12 : STEP DOWN UNIT DCP: WILL NEED SUBACUTE PLACEMENT PLAN: DISCHARGE WHEN FIO2 IS 40% OR LESS MONITOR FOR HYPOTENSION AND LEUKOCYTOSIS
[2020-09-17] MEDS: Amiodarone 200mg tab NG SCH (09:19)
[2020-09-17] MEDS: Fluconazole 100mg tab NG SCH (09:19)
--- NOTE | 2020-09-17 11:20 | NUR ---
NURSE NOTES: PLACED A TELEPHONE CALL TO DR OGLESBY AND MADE HIM AWARE AND NOTIFIED REGARDING WBC 29.1, K+ 5.6. REC,D A T.O FROM DR OGLESBY TO GIVE KAYEXALATE 30G VIA GT X 1 NOW.NEW ORDERS NOTED AND CARRIED OUT . WILL CONT TO MONITOR.
[2020-09-17] MEDS ORDERED: Sodium Polystyrene Sulfonate 15gm Powder ORAL SCH (12:30)
[2020-09-17] MEDS ORDERED: Heparin1,000 units/500ml Premix(Conc:2 units/ml) INJ PRN (13:00)
[2020-09-17] MEDS ORDERED: Lidocaine 1% Plain 30 ml INJ PRN (13:00)
--- NOTE | 2020-09-17 14:12 | Surgery Progress Note ---
Surgery Progress Note Subjective Procedure Performed trach Additional Comments ill appearing no acute events Objective Last 24 Hour Vital Signs Date Time Temp Pulse Resp B/P (MAP) Pulse Ox O2 Delivery O2 Flow Rate FiO2 09/17/20 12:50 91 32 60 09/17/20 12:00 90 09/17/20 12:00 Mechanical Ventilator 09/17/20 12:00 97.5 78 120/55 (76) 28 09/17/20 12:00 50 09/17/20 08:00 50 09/17/20 08:00 97.7 95 116/62 (80) 26 09/17/20 08:00 Mechanical Ventilator 09/17/20 08:00 93 09/17/20 07:04 93 29 60 09/17/20 06:55 122/71 09/17/20 05:00 122/71 (88) 09/17/20 04:00 50 09/17/20 04:00 Mechanical Ventilator 09/17/20 04:00 98.1 89 95/69 (78) 28 09/17/20 04:00 87 09/17/20 01:30 80 28 60 09/17/20 00:50 112/50 (70) 09/17/20 00:00 95.9 96 107/76 (86) 28 09/17/20 00:00 50 09/17/20 00:00 Mechanical Ventilator 09/17/20 00:00 83 09/16/20 23:00 124/59 (80) 09/16/20 20:00 Mechanical Ventilator 09/16/20 20:00 95.9 98 134/54 (80) 28 09/16/20 20:00 50 09/16/20 20:00 91 09/16/20 19:30 83 28 60 09/16/20 16:00 50 09/16/20 16:00 Mechanical Ventilator 09/16/20 16:00 97.3 90 87/52 (64) 28 09/16/20 15:24 80 09/16/20 15:12 89 28 65 I&O Intake and Output 09/16/20 09/17/20 19:00 07:00 Intake Total 817.5 ml 627.5 ml Output Total 100 ml 20 ml Balance 717.5 ml 607.5 ml Free Water 200 ml 50 ml IV Total 137.5 ml 137.5 ml Tube Feeding 480 ml 440 ml Stool Total 100 ml 20 ml # Voids 2 1 Dressing: other Wound: other Cardiovascular: RSR Respiratory: decreased breath sounds Abdomen: soft, non-tender, present bowel sounds, non-distended Extremities: no tenderness, no cyanosis, other Laboratory Tests Test 09/17/20 03:10 White Blood Count 29.1 K/UL (4.8-10.8) *H Red Blood Count 2.71 M/UL (4.70-6.10) L Hemoglobin 8.4 G/DL (14.2-18.0) L Hematocrit 25.9 % (42.0-52.0) L Mean Corpuscular Volume 96 FL (80-99) Mean Corpuscular Hemoglobin 31.1 PG (27.0-31.0) H Mean Corpuscular Hemoglobin Concent 32.5 G/DL (32.0-36.0) Red Cell Distribution Width 14.8 % (11.6-14.8) Platelet Count 75 K/UL (150-450) L Mean Platelet Volume 9.6 FL (6.5-10.1) Neutrophils (%) (Auto) % (45.0-75.0) Lymphocytes (%) (Auto) % (20.0-45.0) Monocytes (%) (Auto) % (1.0-10.0) Eosinophils (%) (Auto) % (0.0-3.0) Basophils (%) (Auto) % (0.0-2.0) Differential Total Cells Counted 100 Neutrophils % (Manual) 86 % (45-75) H Lymphocytes % (Manual) 1 % (20-45) L Monocytes % (Manual) 1 % (1-10) Eosinophils % (Manual) 0 % (0-3) Basophils % (Manual) 0 % (0-2) Band Neutrophils 12 % (0-8) H Platelet Estimate Decreased L Platelet Morphology Normal Hypochromasia 1+ Anisocytosis 1+ Sodium Level 139 MMOL/L (136-145) Potassium Level 5.6 MMOL/L (3.5-5.1) H Chloride Level 108 MMOL/L (98-107) H Carbon Dioxide Level 23 MMOL/L (21-32) Anion Gap 8 mmol/L (5-15) Blood Urea Nitrogen 127 mg/dL (7-18) H Creatinine 2.5 MG/DL (0.55-1.30) H Estimat Glomerular Filtration Rate 24.5 mL/min (>60) Glucose Level 151 MG/DL (74-106) H Calcium Level 7.6 MG/DL (8.5-10.1) L Total Bilirubin 0.4 MG/DL (0.2-1.0) Aspartate Amino Transf (AST/SGOT) 38 U/L (15-37) H Alanine Aminotransferase (ALT/SGPT) 40 U/L (12-78) Alkaline Phosphatase 235 U/L (46-116) H Total Protein 4.4 G/DL (6.4-8.2) L Albumin 0.7 G/DL (3.4-5.0) L Globulin 3.7 g/dL Albumin/Globulin Ratio 0.2 (1.0-2.7) L Plan Problems: (1) Pneumonia (2) Hypoxia (3) Sepsis Assessment & Plan: respiratory insufficiency prolonged ventilatory support failed weaning trials weaning vent as much as possible anticipate prolong vent support trach indicated and recommended will obtain consent plan for trach as able to wean thank you cont weaning will follow with recs s/p trach wean sedation wean vent no active bleeding noted h/h noted trend labs worsening prognosis guarded peg 09/08 cont tf Pt deconditioned and presented on admission with multiple Pressure Injuries , Generalized edema. Weeping edema bilat upper extremities and and trunk.Large Purpura ventral R forearm. Unstageable Pressure Injury R elbow(L)5cm x (W)5cm. Base of wound is 100% conrad slough. Edges erythematous but adherent to base of wound. Periwound is indurated and erythematous. No elevation in skin temp noted. DTPI L elbow. Base of Pressure injury is purpuric and indurated.(L)2cm x (W)1.8cm. Penile torsion noted. Irregular shaped- Full thickness Ulcer at base of shaft (L)4cm x (W)4cm. Base of wound is 100% slough . Marginal erythema along edges. No exudate noted. DTPI Sacrum. Base of Pressure Injury is Purpuric at cleft and Sacrococcygeal areas with surrounding Maroon borders. Non-blanchable erythema without induration R and L ischial tuberosities. DTPI L Heel and plantar aspect(L)9cm x (W)5cm. Base of Pressure injury is Is maroon and fluctuant. DTPI R Heel and Plantar aspect of Heel(L)8.5cm x (W)8cm. Base of Pressure injury is maroon with fluctuance. Tx.Plan:Cleanse wound R Elbow with Saline. Apply TheraHoney.Apply Cavilon Skin Barrier Periwound. Cover with Optifoam Drsg. Change Daily and prn. Apply Cavilon Skin Barrier to L Elbow. Cover with Optifoam drsg. Change every 7 days and prn. Cleanse Ulcer at Base of Shaft of Penis with Saline. Apply Triad Paste Twice Daily and prn. Apply Moisture Barrier Paste to Sacrum. Cover with Optifoam drsg. Change every 3 days and prn. Apply Moisture Barrier Paste to R and L Ischial tuberosities. Cover each site with Optifoam drsgs. Change every 3 Days and prn. Apply Cavilon Skin Barrier to both heels. Cover each heel with Optifoam drsgs. Change every 7 days and prn. Elevate both Upper extremities with Pillow. Reposition at least every 2hours or as tolerated. Off-load heels with pillows. APM/EUNICE Mattress overlay. (4) UTI (urinary tract infection) (5) Pneumonia (6) AMS (altered mental status) Isaias Loaiza Sep 17, 2020 14:12
--- NOTE | 2020-09-17 14:57 | Infectious Diseases Prog Note ---
Assessment/Plan Assessment/Plan A: 1. Stenotrophomonas & Raoultella pneumonia 2. COVID-19 test is negative. 3. Urinary tract infection with lakshmi 4. Hypertension. 5. Dementia. 6. Respiratory failure intubated 7. Parkinson's disease 8. Fungal UTI treated 9. Hyperkalemia 10. R elbow deep tissue injury 11. Leukocytosis, worsening PLAN: Continue Levaquin & Fluconazole Will f/u cultures Subjective ROS Limited/Unobtainable: Yes Constitutional: Denies: fever Allergies: Coded Allergies: VANCOMYCIN (Verified Allergy, Severe, hive, 08/27/20) Objective Last 24 Hour Vital Signs Date Time Temp Pulse Resp B/P (MAP) Pulse Ox O2 Delivery O2 Flow Rate FiO2 09/17/20 12:50 91 32 60 09/17/20 12:00 90 09/17/20 12:00 Mechanical Ventilator 09/17/20 12:00 97.5 78 120/55 (76) 28 09/17/20 12:00 50 09/17/20 08:00 50 09/17/20 08:00 97.7 95 116/62 (80) 26 09/17/20 08:00 Mechanical Ventilator 09/17/20 08:00 93 09/17/20 07:04 93 29 60 09/17/20 06:55 122/71 09/17/20 05:00 122/71 (88) 09/17/20 04:00 50 09/17/20 04:00 Mechanical Ventilator 09/17/20 04:00 98.1 89 95/69 (78) 28 09/17/20 04:00 87 09/17/20 01:30 80 28 60 09/17/20 00:50 112/50 (70) 09/17/20 00:00 95.9 96 107/76 (86) 28 09/17/20 00:00 50 09/17/20 00:00 Mechanical Ventilator 09/17/20 00:00 83 09/16/20 23:00 124/59 (80) 09/16/20 20:00 Mechanical Ventilator 09/16/20 20:00 95.9 98 134/54 (80) 28 09/16/20 20:00 50 09/16/20 20:00 91 09/16/20 19:30 83 28 60 09/16/20 16:00 50 09/16/20 16:00 Mechanical Ventilator 09/16/20 16:00 97.3 90 87/52 (64) 28 09/16/20 15:24 80 09/16/20 15:12 89 28 65 Height (Feet): 5 Height (Inches): 4.00 Weight (Pounds): 147 HEENT: status post trach Respiratory/Chest: rhonchi - bilaterally, other - on ventilator Cardiovascular: normal rate Abdomen: soft, non tender, other - GT feeding Extremities: other - Generalized edea Neurologic/Psychiatric: aphasia, other - opens eyes Laboratory Tests Test 09/17/20 03:10 White Blood Count 29.1 K/UL (4.8-10.8) *H Red Blood Count 2.71 M/UL (4.70-6.10) L Hemoglobin 8.4 G/DL (14.2-18.0) L Hematocrit 25.9 % (42.0-52.0) L Mean Corpuscular Volume 96 FL (80-99) Mean Corpuscular Hemoglobin 31.1 PG (27.0-31.0) H Mean Corpuscular Hemoglobin Concent 32.5 G/DL (32.0-36.0) Red Cell Distribution Width 14.8 % (11.6-14.8) Platelet Count 75 K/UL (150-450) L Mean Platelet Volume 9.6 FL (6.5-10.1) Neutrophils (%) (Auto) % (45.0-75.0) Lymphocytes (%) (Auto) % (20.0-45.0) Monocytes (%) (Auto) % (1.0-10.0) Eosinophils (%) (Auto) % (0.0-3.0) Basophils (%) (Auto) % (0.0-2.0) Differential Total Cells Counted 100 Neutrophils % (Manual) 86 % (45-75) H Lymphocytes % (Manual) 1 % (20-45) L Monocytes % (Manual) 1 % (1-10) Eosinophils % (Manual) 0 % (0-3) Basophils % (Manual) 0 % (0-2) Band Neutrophils 12 % (0-8) H Platelet Estimate Decreased L Platelet Morphology Normal Hypochromasia 1+ Anisocytosis 1+ Sodium Level 139 MMOL/L (136-145) Potassium Level 5.6 MMOL/L (3.5-5.1) H Chloride Level 108 MMOL/L (98-107) H Carbon Dioxide Level 23 MMOL/L (21-32) Anion Gap 8 mmol/L (5-15) Blood Urea Nitrogen 127 mg/dL (7-18) H Creatinine 2.5 MG/DL (0.55-1.30) H Estimat Glomerular Filtration Rate 24.5 mL/min (>60) Glucose Level 151 MG/DL (74-106) H Calcium Level 7.6 MG/DL (8.5-10.1) L Total Bilirubin 0.4 MG/DL (0.2-1.0) Aspartate Amino Transf (AST/SGOT) 38 U/L (15-37) H Alanine Aminotransferase (ALT/SGPT) 40 U/L (12-78) Alkaline Phosphatase 235 U/L (46-116) H Total Protein 4.4 G/DL (6.4-8.2) L Albumin 0.7 G/DL (3.4-5.0) L Globulin 3.7 g/dL Albumin/Globulin Ratio 0.2 (1.0-2.7) L Current Medications Medications (Trade) Dose Ordered Sig/Javon Route PRN Reason Start Time Stop Time Status Last Admin Dose Admin Acetaminophen (Tylenol) 650 mg Q6H PRN GT For Headache 09/16/20 04:30 10/16/20 04:29 Amiodarone HCl (Cordarone) 200 mg DAILY NG 09/04/20 09:00 11/15/20 08:59 09/17/20 09:19 Dopamine HCl/ Dextrose 250 ml @ 12.502 mls/ hr Q20H IV 09/14/20 19:45 09/17/20 19:44 09/17/20 06:55 Fluconazole (Diflucan) 100 mg DAILY NG 09/15/20 10:00 09/22/20 09:59 09/17/20 09:19 Heparin Sodium/ Sodium Chloride (Heparin 1000 units/500ml Premix) 1,000 unit ONCE PRN INJ radiology procedure 09/17/20 13:00 09/19/20 12:59 Lansoprazole (Prevacid) 30 mg DAILY NG 08/30/20 09:00 09/29/20 08:59 09/17/20 09:19 Levofloxacin (Levaquin) 250 mg DAILY ORAL 09/16/20 11:56 09/23/20 11:55 09/17/20 09:18 Lidocaine HCl (Xylocaine 1% 30ml) 30 ml ONCE PRN INJ radiology procedure 09/17/20 13:00 09/19/20 12:59 Baldev Luo MD Sep 17, 2020 14:56
--- NOTE | 2020-09-17 15:11 | Pulmonology Progress Note ---
Subjective ROS Limited/Unobtainable: Yes Constitutional: Denies: fever Gastrointestinal/Abdominal: Reports: other - will have NG tube placement today Allergies: Coded Allergies: VANCOMYCIN (Verified Allergy, Severe, hive, 08/27/20) All Systems: reviewed and negative except above Subjective care noted/ d/w nursing in detail on vent/ remains hypoxemic noted acidosis and respiratory acidosis poor LOC noted changes reviewed d/w nursing at bedside Objective Last 24 Hour Vital Signs Date Time Temp Pulse Resp B/P (MAP) Pulse Ox O2 Delivery O2 Flow Rate FiO2 09/17/20 12:50 91 32 60 09/17/20 12:00 90 09/17/20 12:00 Mechanical Ventilator 09/17/20 12:00 120/55 09/17/20 12:00 97.5 78 120/55 (76) 28 09/17/20 12:00 50 09/17/20 08:00 50 09/17/20 08:00 97.7 95 116/62 (80) 26 09/17/20 08:00 Mechanical Ventilator 09/17/20 08:00 93 09/17/20 07:04 93 29 60 09/17/20 06:55 122/71 09/17/20 05:00 122/71 (88) 09/17/20 04:00 50 09/17/20 04:00 Mechanical Ventilator 09/17/20 04:00 98.1 89 95/69 (78) 28 09/17/20 04:00 87 09/17/20 01:30 80 28 60 09/17/20 00:50 112/50 (70) 09/17/20 00:00 95.9 96 107/76 (86) 28 09/17/20 00:00 50 09/17/20 00:00 Mechanical Ventilator 09/17/20 00:00 83 09/16/20 23:00 124/59 (80) 09/16/20 20:00 Mechanical Ventilator 09/16/20 20:00 95.9 98 134/54 (80) 28 09/16/20 20:00 50 09/16/20 20:00 91 09/16/20 19:30 83 28 60 09/16/20 16:00 50 09/16/20 16:00 Mechanical Ventilator 09/16/20 16:00 97.3 90 87/52 (64) 28 09/16/20 15:24 80 12/30/20 15:12 89 28 65 Intake and Output 09/16/20 09/17/20 19:00 07:00 Intake Total 817.5 ml 640.0 ml Output Total 100 ml 20 ml Balance 717.5 ml 620.0 ml Free Water 200 ml 50 ml IV Total 137.5 ml 150.0 ml Tube Feeding 480 ml 440 ml Stool Total 100 ml 20 ml # Voids 2 1 Objective WDWN NAD reduced breath sounds bilaterally with scattered rhonchi worse [id number] without MRG NABS nontender no distention; feeding tub no CCE nonfocal trach in place poorly responsive obtunded Laboratory Tests 09/17/20 03:10: White Blood Count 29.1*H, Red Blood Count 2.71L, Hemoglobin 8.4L, Hematocrit 25. 9L, Mean Corpuscular Volume 96, Mean Corpuscular Hemoglobin 31.1H, Mean Corpuscular Hemoglobin Concent 32.5, Red Cell Distribution Width 14.8, Platelet Count 75L, Mean Platelet Volume 9.6, Neutrophils (%) (Auto) , Lymphocytes (%) (Auto) , Monocytes (%) (Auto) , Eosinophils (%) (Auto) , Basophils (%) (Auto) , Differential Total Cells Counted 100, Neutrophils % (Manual) 86H, Lymphocytes % (Manual) 1L, Monocytes % (Manual) 1, Eosinophils % (Manual) 0, Basophils % (Manual) 0, Band Neutrophils 12H, Platelet Estimate DecreasedL, Platelet Morphology Normal, Hypochromasia 1+, Anisocytosis 1+, Sodium Level 139, Potassium Level 5.6H, Chloride Level 108H, Carbon Dioxide Level 23, Anion Gap 8, Blood Urea Nitrogen 127H, Creatinine 2.5H, Estimat Glomerular Filtration Rate 24.5, Glucose Level 151H, Calcium Level 7.6L, Total Bilirubin 0.4, Aspartate Amino Transf (AST/SGOT) 38H, Alanine Aminotransferase (ALT/SGPT) 40, Alkaline Phosphatase 235H, Total Protein 4.4L, Albumin 0.7L, Globulin 3.7, Albumin/Globulin Ratio 0.2L Current Medications Medications (Trade) Dose Ordered Sig/Javon Route PRN Reason Start Time Stop Time Status Last Admin Dose Admin Acetaminophen (Tylenol) 650 mg Q6H PRN GT For Headache 09/16/20 04:30 10/16/20 04:29 Amiodarone HCl (Cordarone) 200 mg DAILY NG 09/04/20 09:00 11/15/20 08:59 09/17/20 09:19 Dopamine HCl/ Dextrose 250 ml @ 12.502 mls/ hr Q20H IV 09/14/20 19:45 09/17/20 19:44 09/17/20 06:55 Fluconazole (Diflucan) 100 mg DAILY NG 09/15/20 10:00 09/22/20 09:59 09/17/20 09:19 Heparin Sodium/ Sodium Chloride (Heparin 1000 units/500ml Premix) 1,000 unit ONCE PRN INJ radiology procedure 09/17/20 13:00 09/19/20 12:59 Lansoprazole (Prevacid) 30 mg DAILY NG 08/30/20 09:00 09/29/20 08:59 09/17/20 09:19 Levofloxacin (Levaquin) 250 mg DAILY ORAL 09/16/20 11:56 09/23/20 11:55 09/17/20 09:18 Lidocaine HCl (Xylocaine 1% 30ml) 30 ml ONCE PRN INJ radiology procedure 09/17/20 13:00 09/19/20 12:59 Assessment/Plan Assessment/Plan ASSESSMENT: chronic encephalopathy, dementia, diffuse infiltrates, elevated BNP hypertension, recurrent falls, and urinary tract infection, hypoxemia, probable aspiration pneumonia. acute respiratory failure hypoxemic s/p trach; worsening CO2 retention PLAN care noted high fio2 still noted monitor PIP- and level of pressures on vent hyperventilate as able but noted low PH poor lung function respiratory care as is- monitor acid base vent support as is full support for now monitor imaging for change suction off load trach care GT Full code nutrition DVT prophylaxis skin care position change prognosis very poor for improvement impression, plan, and exam edited and reviewed in detail care discussed with Eriberto Gilliland MD Sep 17, 2020 15:11
--- NOTE | 2020-09-17 16:04 | Brief Operative Note ---
Immediate Post Operative Note Operative Note Pre-op Diagnosis: needs IV access Procedure: PICC Post-op Diagnosis: same as pre-op Surgeon: Gilmer Quick Anesthesia: local Specimen: none Complications: none Fluids: no Implant(s) used?: No Aj Quick MD Sep 17, 2020 16:04
--- NOTE | 2020-09-17 16:06 | NUR ---
RADIOLOGY NOTE: RIGHT UPPER EXTREMITY PICC PLACED
--- NOTE | 2020-09-17 16:32 | General Progress Note ---
Subjective ROS Limited/Unobtainable: No Constitutional: Reports: malaise, weakness HEENT: Reports: no symptoms Cardiovascular: Reports: no symptoms Respiratory: Reports: shortness of breath Gastrointestinal/Abdominal: Reports: no symptoms Genitourinary: Reports: no symptoms Neurologic/Psychiatric: Reports: pre-existing deficit Endocrine: Reports: no symptoms Hematologic/Lymphatic: Reports: anemia Allergies: Coded Allergies: VANCOMYCIN (Verified Allergy, Severe, hive, 08/27/20) All Systems: reviewed and negative except above Subjective still hypotensive on pressors. on iv abx. awake. does not follow commands, increase k noted. cr worse. Objective Last 24 Hour Vital Signs Date Time Temp Pulse Resp B/P (MAP) Pulse Ox O2 Delivery O2 Flow Rate FiO2 09/17/20 12:50 91 32 60 09/17/20 12:00 90 09/17/20 12:00 Mechanical Ventilator 09/17/20 12:00 120/55 09/17/20 12:00 97.5 78 120/55 (76) 28 09/17/20 12:00 50 09/17/20 08:00 50 09/17/20 08:00 97.7 95 116/62 (80) 26 09/17/20 08:00 Mechanical Ventilator 09/17/20 08:00 93 09/17/20 07:04 93 29 60 09/17/20 06:55 122/71 09/17/20 05:00 122/71 (88) 09/17/20 04:00 50 09/17/20 04:00 Mechanical Ventilator 09/17/20 04:00 98.1 89 95/69 (78) 28 09/17/20 04:00 87 09/17/20 01:30 80 28 60 09/17/20 00:50 112/50 (70) 09/17/20 00:00 95.9 96 107/76 (86) 28 09/17/20 00:00 50 09/17/20 00:00 Mechanical Ventilator 09/17/20 00:00 83 09/16/20 23:00 124/59 (80) 09/16/20 20:00 Mechanical Ventilator 09/16/20 20:00 95.9 98 134/54 (80) 28 09/16/20 20:00 50 09/16/20 20:00 91 09/16/20 19:30 83 28 60 Intake and Output 12/30/20 12/31/20 19:00 07:00 Intake Total 817.5 ml 640.0 ml Output Total 100 ml 20 ml Balance 717.5 ml 620.0 ml Free Water 200 ml 50 ml IV Total 137.5 ml 150.0 ml Tube Feeding 480 ml 440 ml Stool Total 100 ml 20 ml # Voids 2 1 Laboratory Tests 09/17/20 03:10: White Blood Count 29.1*H, Red Blood Count 2.71L, Hemoglobin 8.4L, Hematocrit 25.9L, Mean Corpuscular Volume 96, Mean Corpuscular Hemoglobin 31.1H, Mean Corpuscular Hemoglobin Concent 32.5, Red Cell Distribution Width 14.8, Platelet Count 75L, Mean Platelet Volume 9.6, Neutrophils (%) (Auto) , Lymphocytes (%) (Auto) , Monocytes (%) (Auto) , Eosinophils (%) (Auto) , Basophils (%) (Auto) , Differential Total Cells Counted 100, Neutrophils % (Manual) 86H, Lymphocytes % (Manual) 1L, Monocytes % (Manual) 1, Eosinophils % (Manual) 0, Basophils % ( Manual) 0, Band Neutrophils 12H, Platelet Estimate DecreasedL, Platelet Morphology Normal, Hypochromasia 1+, Anisocytosis 1+, Sodium Level 139, Potassium Level 5.6H, Chloride Level 108H, Carbon Dioxide Level 23, Anion Gap 8, Blood Urea Nitrogen 127H, Creatinine 2.5H, Estimat Glomerular Filtration Rate 24.5, Glucose Level 151H, Calcium Level 7.6L, Total Bilirubin 0.4, Aspartate Amino Transf (AST/SGOT) 38H, Alanine Aminotransferase (ALT/SGPT) 40, Alkaline Phosphatase 235H, Total Protein 4.4L, Albumin 0.7L, Globulin 3.7, Albumin/Globulin Ratio 0.2L Height (Feet): 5 Height (Inches): 4.00 Weight (Pounds): 147 Objective General Appearance: WD/WN, confused, thin. on the vent EENT: normal ENT inspection Neck: non-tender, normal alignment, supple. trach midline Cardiovascular: normal rate, regular rhythm Respiratory/Chest: chest wall non-tender, lungs clear, normal breath sounds, no respiratory distress, no accessory muscle use Abdomen: normal bowel sounds, non tender, soft, no organomegaly Edema: no edema noted Arm (L), no edema noted Arm (R) Assessment/Plan Problem List: (1) Pneumonia ICD Codes: J18.9 - Pneumonia, unspecified organism SNOMED: 957409348 (2) Hypoxia ICD Codes: R09.02 - Hypoxemia SNOMED: 370084499 (3) AMS (altered mental status) ICD Codes: R41.82 - Altered mental status, unspecified SNOMED: 604405563 (4) UTI (urinary tract infection) ICD Codes: N39.0 - Urinary tract infection, site not specified SNOMED: 86785115 (5) Sepsis ICD Codes: A41.9 - Sepsis, unspecified organism SNOMED: 34231358 Status: stable, not improved Assessment/Plan: vent support trach care resp rx abx per ID suctioning gentle hydration kayexylate for elevated K dopamine as needed picc line for pressors monitor labs/lytes replace as needes dvt/stress ulcer prophylaxis turn q2 poor prognosis Chavez Gilmore MD Sep 17, 2020 16:32
--- NOTE | 2020-09-17 16:51 | Diagnostic Imaging Report ---
Indications: Needs long-term IV access Technique: Procedure performed at bedside. Procedural timeout performed. Ultrasound confirms patent compressible right basilic vein. Total sterile technique, including sterile probe cover and sterile gel, sterile gloves, hand hygiene, hat, mask,, sterile gown, large sterile drape, and preparation with 2% chlorhexidine utilized. Local anesthesia with 1% lidocaine. Under real-time ultrasound guidance, puncture basilic vein using 21-gauge needle, passage 0.018 guidewire, exchange for 4 [place] peel-away sheath. 4 [place] Bard dual-lumen power PICC cut to 45 cm. It was inserted through the peel-away sheath. Peel-away sheath and guidewire removed. Catheter fixed to the skin. Both catheter ports aspirated and flushed. Patient tolerated procedure well, without immediate complication. Followup chest x-ray obtained, documents catheter tip position at the cavoatrial junction Impression: Successful bedside placement of right arm PICC under sonographic guidance, as described above.
--- NOTE | 2020-09-17 19:00 | NUR ---
NURSE NOTES: Received report from BLANE Purvis. Pt is seen lying in bed sleeping. Pt is on trach to vent with settings as ordered. Pt is obtunded, respond to deep pain. Pt is with PICC line in Right upper arm intact and patent and with order okay to use. Pt has no signs of respiratory distress, but pt is tachypneic, Pt initial BP: 100/50. Pt on dopamine drip on fixed rate 5mcg/kg/min. No pain noted. With springer noted intact and patent. Bed in lowest position, call light within reach. Continue to plan of care.
--- NOTE | 2020-09-17 19:20 | NUR ---
HAND-OFF: Report given to .JUAN JOSE ARGUELLES.
--- NOTE | 2020-09-17 21:01 | General Progress Note ---
Subjective Allergies: Coded Allergies: VANCOMYCIN (Verified Allergy, Severe, hive, 08/27/20) Subjective above noted Non responsive doing poorly alk phos grad rising Objective Last 24 Hour Vital Signs Date Time Temp Pulse Resp B/P (MAP) Pulse Ox O2 Delivery O2 Flow Rate FiO2 09/17/20 19:15 87 39 60 09/17/20 16:00 97.7 96 114/60 (78) 26 09/17/20 16:00 50 09/17/20 16:00 Mechanical Ventilator 09/17/20 16:00 95 09/17/20 12:50 91 32 60 09/17/20 12:00 90 09/17/20 12:00 Mechanical Ventilator 09/17/20 12:00 120/55 09/17/20 12:00 97.5 78 120/55 (76) 28 09/17/20 12:00 50 09/17/20 08:00 50 09/17/20 08:00 97.7 95 116/62 (80) 26 09/17/20 08:00 Mechanical Ventilator 09/17/20 08:00 93 09/17/20 07:04 93 29 60 09/17/20 06:55 122/71 09/17/20 05:00 122/71 (88) 09/17/20 04:00 50 09/17/20 04:00 Mechanical Ventilator 09/17/20 04:00 98.1 89 95/69 (78) 28 09/17/20 04:00 87 09/17/20 01:30 80 28 60 09/17/20 00:50 112/50 (70) 09/17/20 00:00 95.9 96 107/76 (86) 28 09/17/20 00:00 50 09/17/20 00:00 Mechanical Ventilator 09/17/20 00:00 83 09/16/20 23:00 124/59 (80) l Intake and Output 09/16/20 09/17/20 19:00 07:00 Intake Total 817.5 ml 680.0 ml Output Total 100 ml 20 ml Balance 717.5 ml 660.0 ml Free Water 200 ml 50 ml IV Total 137.5 ml 150.0 ml Tube Feeding 480 ml 480 ml Stool Total 100 ml 20 ml # Voids 2 1 Laboratory Tests 09/17/20 03:10: White Blood Count 29.1*H, Red Blood Count 2.71L, Hemoglobin 8.4L, Hematocrit 25.9L, Mean Corpuscular Volume 96, Mean Corpuscular Hemoglobin 31.1H, Mean Corpuscular Hemoglobin Concent 32.5, Red Cell Distribution Width 14.8, Platelet Count 75L, Mean Platelet Volume 9.6, Neutrophils (%) (Auto) , Lymphocytes (%) (Auto) , Monocytes (%) (Auto) , Eosinophils (%) (Auto) , Basophils (%) (Auto) , Differential Total Cells Counted 100, Neutrophils % (Manual) 86H, Lymphocytes % (Manual) 1L, Monocytes % (Manual) 1, Eosinophils % (Manual) 0, Basophils % (Manual) 0, Band Neutrophils 12H, Platelet Estimate DecreasedL, Platelet Morphology Normal, Hypochromasia 1+, Anisocytosis 1+, Sodium Level 139, Potassium Level 5.6H, Chloride Level 108H, Carbon Dioxide Level 23, Anion Gap 8, Blood Urea Nitrogen 127H, Creatinine 2.5H, Estimat Glomerular Filtration Rate 24.5, Glucose Level 151H, Calcium Level 7.6L, Total Bilirubin 0.4, Aspartate Amino Transf (AST/SGOT) 38H, Alanine Aminotransferase (ALT/SGPT) 40, Alkaline Phosphatase 235H, Total Protein 4.4L, Albumin 0.7L, Globulin 3.7, Albumin/Globulin Ratio 0.2L Height (Feet): 5 Height (Inches): 4.00 Weight (Pounds): 147 Objective Elderly man unresponsive NCAT supple, (+) trach scattered ronchi RR abd soft, (+) GT trace edema Assessment/Plan Status: stable, not improved Assessment/Plan: Assessment - Leukocytosis - shiock - respiratory failure, s/p Trach - Parox a fib - acute myocardial ischemia - PNA/sepsis - dysphagia - s/p PEG - elevated glucose - poor prognosis Recommendations - continue low K TF formula - check abd ultrasound - PEG care - ID follow up - Pulmonary toilet, [facility] care Arely Parks MD Sep 17, 2020 21:01
--- NOTE | 2020-09-17 21:50 | NUR ---
NURSE NOTES: Vent alarmed, noted pt is tachypneic and desaturating- informed RT and changed the oximeter and titrated fio2 to 100%, o2 sat came back up to 96%. checked Bp - 66/75, pt has previous history of hypotensive episodes, informed Dr. Gilmore covering Dr kay regarding drop of blood pressure as the fixed rate of dopamine was discontinued, Positioned pt on tredelenburg position.
--- NOTE | 2020-09-17 21:51 | NUR ---
NURSE NOTES: Spoke to Deirdre Bautista new orders given carried out, waiting for pharmacy to verified. Sent message to pharmacy. rechecked [facility]. SR in monitor.
--- NOTE | 2020-09-17 21:51 | NUR ---
NURSE NOTES: Dr. Gilmore ordered dopamine fixed rate.
[2020-09-17] MEDS ORDERED: NS 250 ML IVPB SCH (22:00)
--- NOTE | 2020-09-17 22:33 | NUR ---
NURSE NOTES: rechecked BP- 80/70
--- NOTE | 2020-09-17 22:57 | NUR ---
NURSE NOTES: Rechecked BP- 90/40. COntinue to monitor pt closely, update next of kin [place].
--- NOTE | 2020-09-17 23:20 | NUR ---
NURSE NOTES: Rechecked BP- 118/81. Continue current management.
--- NOTE | 2020-09-17 23:29 | Diagnostic Imaging Report ---
EXAM: US Abdomen Complete CLINICAL HISTORY: ABN LABS TECHNIQUE: Real-time ultrasound of the abdomen with image documentation. COMPARISON: None. FINDINGS: Limitations: Exam is limited due to gas artifact in the bowel. Liver: Unremarkable. No mass. No intrahepatic bile duct dilation. Gallbladder: The gallbladder is contracted with gallbladder wall thickening up to 5.1 mm. Areas of heterogeneity with a round structures within the gallbladder wall could represent polyp, gallbladder neoplasm cannot be entirely excluded. No gallstones. Common bile duct: Common bile duct measures 6.4 mm. This is nonspecific given patient's age. Pancreas: Borderline distention of the pancreatic duct up to 2.9 mm. Kidneys: Right kidney measures 10.4 x 5.0 x 5.5 cm. There is mild hydronephrosis. Left kidney measures 11.0 x 5.7 x 4.5 cm. There is a mild hydronephrosis. No stones. Spleen: The spleen is not visualized. Aorta: Proximal aorta measures 2.3 cm. No aneurysm. Inferior vena cava: Unremarkable. Free fluid: Moderate ascites. Pleural space: Right-sided pleural effusion. IMPRESSION: 1. Ascites. Contracted gallbladder with significant thickening of the wall and areas of echogenic rounded masses along the inner aspect of the gallbladder which could represent multiple polyps, neoplasm cannot be entirely excluded given areas of focal thickening of the wall. Clinical correlation recommended. 2. Mild bilateral hydronephrosis. If indicated, these findings may be more active characterized with CT of the abdomen and pelvis with intravenous contrast.
[2020-09-18] VITALS (7 sets, daily range): BP systolic 78–110; BP diastolic 41–70
--- NOTE | 2020-09-18 01:25 | NUR ---
NURSE NOTES: Cleaned pt, dressing changed in sacral area, still noted liquid stool. Sponge bath given. Continue to monitor pt closely. BP stable at this time.
--- NOTE | 2020-09-18 04:08 | NUR ---
NURSE NOTES: VS WNL BP- 115/90, oral care done. No any signs of respiratory distress, o2 sat0 98%. Continue to monitor pt.
[2020-09-18 05:55] LABS: HEMATOCRIT 24.6 % (42.0-52.0); HEMOGLOBIN 7.7 G/DL (14.2-18.0); MEAN CORPUSCULAR VOLUME 95 FL (80-99); PLATELET COUNT 99 K/UL (150-450)
--- NOTE | 2020-09-18 06:08 | NUR ---
NURSE NOTES: Changed pt, bowel movement still liquidy. Reinforce dressing. Continue to plan of care.
[2020-09-18 06:18] LABS: ALBUMIN 1.1 G/DL (3.4-5.0); ALBUMIN/GLOBULIN RATIO 0.3 (1.0-2.7); BILIRUBIN,TOTAL 0.4 MG/DL (0.2-1.0); CALCIUM 7.3 MG/DL (8.5-10.1); CREATININE 2.9 MG/DL (0.55-1.30); POTASSIUM 4.8 MMOL/L (3.5-5.1); WHITE BLOOD COUNT 31.6 K/UL (4.8-10.8)
--- NOTE | 2020-09-18 06:21 | NUR ---
NURSE NOTES: Informed Dr. Luo regarding WBC trending up, NNO noted at this time.
--- NOTE | 2020-09-18 07:01 | NUR ---
NURSE NOTES: Informed Dr. Lei regarding the Hgb 7.7 and parameters of Heparin, per Dr. lei hold heparin <100,000. Endorsed to AM.
--- NOTE | 2020-09-18 07:03 | NUR ---
NURSE HAND-OFF REPORT: Important Events on Shift: hgb 7.7, hypotensive episodes on fixed rate dopamine drip. Latest BP:110/58 Patient Status: Critical and guarded Diet: GTF Pending Orders: None Pending Results/Labs: None Pending MD notification: None Latest Vital Signs: Temperature 96.6 , Pulse 83 , B/P 106 /46 , Respiratory Rate 31 , O2 SAT 28 , Mechanical Ventilator, O2 Flow Rate 70.0 . Vital Sign Comment: guarded EKG Rhythm: SR with BBB Rhythm change?: N Notified?: N -Dr. Virgil KURTZ Response: Message left await call Latest José Fall Score: 95 Fall Risk: High Risk Safety Measures: Call light Within Reach, Bed Alarm Zone 1, Side Rails Side Rails x3, Bed position Low and Locked. Fall Precautions: Yellow Socks Yellow Gown Door Sign Patient Fall Education Report given to [Ryder, RN].
--- NOTE | 2020-09-18 07:22 | NUR ---
NURSE NOTES: Received report from Princess ARGUELLES.
--- NOTE | 2020-09-18 07:54 | NUR ---
NURSE NOTES: Pt. in bed, eyes opens but not tracking. No sign of distress. On mech. vent. dependent with setting AC28/VT550/Fi O2 of 50%/P10. No grimacing noted. HOB elevated at all times. On GTF Nephro 40cc/hr. No n/v noted. Tolerating well. Rectal tube in placed patent/intact draining greenish liquid output. PICC line at right upper arm with 2 lumen in placed patent/intact. Bed in low position, locked. Call light within reach. Will cont. to monitor.
--- NOTE | 2020-09-18 07:57 | General Progress Note ---
Subjective ROS Limited/Unobtainable: No Constitutional: Reports: malaise, weakness HEENT: Reports: no symptoms Cardiovascular: Reports: no symptoms Respiratory: Reports: shortness of breath Gastrointestinal/Abdominal: Reports: difficulty swallowing Genitourinary: Reports: no symptoms Neurologic/Psychiatric: Reports: pre-existing deficit Endocrine: Reports: no symptoms Hematologic/Lymphatic: Reports: anemia Allergies: Coded Allergies: VANCOMYCIN (Verified Allergy, Severe, hive, 08/27/20) All Systems: reviewed and negative except above Subjective briefly off pressors yesterday. now back on. given ivf bolus + albumin. remains hypotensive on 5 mcg dopamine. picc line placed. remains on the vent. poorly responsive. no reports of bleeding Objective Last 24 Hour Vital Signs Date Time Temp Pulse Resp B/P (MAP) Pulse Ox O2 Delivery O2 Flow Rate FiO2 09/18/20 06:13 110/58 09/18/20 05:13 106/46 09/18/20 04:13 96/52 09/18/20 04:00 50 09/18/20 04:00 Mechanical Ventilator 09/18/20 04:00 91 09/18/20 04:00 96.6 83 96/52 (67) 28 09/18/20 03:13 90/52 09/18/20 03:00 90 31 60 09/18/20 02:13 110/60 09/18/20 01:13 118/54 09/18/20 00:13 87/78 09/18/20 00:00 98.6 83 108/70 (83) 29 09/18/20 00:00 Mechanical Ventilator 09/17/20 23:15 100 36 60 09/17/20 23:13 90/50 09/17/20 22:13 100/56 09/17/20 20:00 96.8 84 100/56 (71) 30 09/17/20 20:00 50 09/17/20 20:00 Mechanical Ventilator 09/17/20 20:00 50 09/17/20 20:00 87 09/17/20 19:15 87 39 60 09/17/20 16:00 97.7 96 114/60 (78) 26 09/17/20 16:00 50 09/17/20 16:00 Mechanical Ventilator 09/17/20 16:00 95 09/17/20 12:50 91 32 60 09/17/20 12:00 90 09/17/20 12:00 Mechanical Ventilator 09/17/20 12:00 120/55 09/17/20 12:00 97.5 78 120/55 (76) 28 09/17/20 12:00 50 09/17/20 08:00 50 09/17/20 08:00 97.7 95 116/62 (80) 26 09/17/20 08:00 Mechanical Ventilator 09/17/20 08:00 93 Intake and Output 09/17/20 09/18/20 19:00 07:00 Intake Total 780.0 ml 1639 ml Output Total 20 ml 150 ml Balance 760.0 ml 1489 ml Free Water 150 ml 100 ml IV Total 150.0 ml 1099 ml Tube Feeding 480 ml 440 ml Stool Total 20 ml 150 ml # Voids 2 Laboratory Tests 09/18/20 02:55: White Blood Count 31.6*H, Red Blood Count 2.60L, Hemoglobin 7.7L, Hematocrit 24.6L, Mean Corpuscular Volume 95, Mean Corpuscular Hemoglobin 29.7, Mean Corpuscular Hemoglobin Concent 31.3L, Red Cell Distribution Width 14.0, Platelet Count 99L, Mean Platelet Volume 9.3, Neutrophils (%) (Auto) , Lymphocytes (%) (Auto) , Monocytes (%) (Auto) , Eosinophils (%) (Auto) , Basophils (%) (Auto) , Neutrophils % (Manual) [Pending], Lymphocytes % (Manual) [Pending], Platelet Estimate [Pending], Platelet Morphology [Pending], Sodium Level 140, Potassium Level 4.8, Chloride Level 107, Carbon Dioxide Level 23, Anion Gap 10, Blood Urea Nitrogen 136H, Creatinine 2.9H, Estimat Glomerular Filtration Rate 20.6, Glucose Level 139H, Calcium Level 7.3L, Total Bilirubin 0.4, Aspartate Amino Transf (AST/SGOT) 20, Alanine Aminotransferase (ALT/SGPT) 25, Alkaline Phosphatase 252H, Total Protein 4.8L, Albumin 1.1L, Globulin 3.7, Albumin/Globulin Ratio 0.3L Height (Feet): 5 Height (Inches): 4.00 Weight (Pounds): 147 Objective General Appearance: WD/WN, confused, thin. on the vent EENT: normal ENT inspection Neck: non-tender, normal alignment, supple. trach midline Cardiovascular: normal rate, regular rhythm Respiratory/Chest: chest wall non-tender, lungs clear, normal breath sounds, no respiratory distress, no accessory muscle use Abdomen: normal bowel sounds, non tender, soft, no organomegaly Edema: no edema noted Arm (L), no edema noted Arm (R) Assessment/Plan Problem List: (1) Pneumonia ICD Codes: J18.9 - Pneumonia, unspecified organism SNOMED: 773169898 (2) Hypoxia ICD Codes: R09.02 - Hypoxemia SNOMED: 709425069 (3) AMS (altered mental status) ICD Codes: R41.82 - Altered mental status, unspecified SNOMED: 510277796 (4) UTI (urinary tract infection) ICD Codes: N39.0 - Urinary tract infection, site not specified SNOMED: 57529114 (5) Sepsis ICD Codes: A41.9 - Sepsis, unspecified organism SNOMED: 74357443 Status: stable, not improved Assessment/Plan: vent support trach care resp rx/suctioning no wean abx per ID monitor h/h may need transfusion will repeat cbc tomorrow dopamine as needed monitor labs/lytes replace as needes dvt/stress ulcer prophylaxis turn q2 poor prognosis d/w grand dtr x 10 mins Chavez Gilmore MD Sep 18, 2020 07:57
[2020-09-18] MEDS: Amiodarone 200mg tab NG SCH (08:53)
[2020-09-18] MEDS: Fluconazole 100mg tab NG SCH (08:53)
--- NOTE | 2020-09-18 10:45 | NUR ---
NURSE NOTES: Blood transfusion started 10:30am. No adverse reaction noted at present. Afebrile. Will cont. to monitor.
--- NOTE | 2020-09-18 11:04 | Pulmonology Progress Note ---
Subjective ROS Limited/Unobtainable: Yes Constitutional: Denies: fever Gastrointestinal/Abdominal: Reports: other - will have NG tube placement today Allergies: Coded Allergies: VANCOMYCIN (Verified Allergy, Severe, hive, 08/27/20) All Systems: reviewed and negative except above Subjective care noted/ d/w nursing in detail on vent/ remains hypoxemic noted acidosis and respiratory acidosis poor LOC noted changes reviewed d/w nursing at bedside Objective Last 24 Hour Vital Signs Date Time Temp Pulse Resp B/P (MAP) Pulse Ox O2 Delivery O2 Flow Rate FiO2 09/18/20 08:00 98.4 96 105/59 (74) 20 09/18/20 07:20 87 29 60 09/18/20 06:13 110/58 09/18/20 05:13 106/46 09/18/20 04:13 96/52 09/18/20 04:00 50 09/18/20 04:00 Mechanical Ventilator 09/18/20 04:00 91 09/18/20 04:00 96.6 83 96/52 (67) 28 09/18/20 03:13 90/52 09/18/20 03:00 90 31 60 09/18/20 02:13 110/60 09/18/20 01:13 118/54 09/18/20 00:13 87/78 09/18/20 00:00 98.6 83 108/70 (83) 29 09/18/20 00:00 Mechanical Ventilator 09/17/20 23:15 100 36 60 09/17/20 23:13 90/50 09/17/20 22:13 100/56 09/17/20 20:00 96.8 84 100/56 (71) 30 09/17/20 20:00 50 09/17/20 20:00 Mechanical Ventilator 09/17/20 20:00 50 09/17/20 20:00 87 09/17/20 19:15 87 39 60 09/17/20 16:00 97.7 96 114/60 (78) 26 09/17/20 16:00 50 09/17/20 16:00 Mechanical Ventilator 09/17/20 16:00 95 09/17/20 12:50 91 32 60 09/17/20 12:00 90 09/17/20 12:00 Mechanical Ventilator 09/17/20 12:00 120/55 09/17/20 12:00 97.5 78 120/55 (76) 28 09/17/20 12:00 50 Intake and Output 09/17/20 09/18/20 19:00 07:00 Intake Total 780.0 ml 1639 ml Output Total 20 ml 150 ml Balance 760.0 ml 1489 ml Free Water 150 ml 100 ml IV Total 150.0 ml 1099 ml Tube Feeding 480 ml 440 ml Stool Total 20 ml 150 ml # Voids 2 Objective WDWN NAD reduced breath sounds bilaterally with scattered rhonchi worse [id number] without MRG NABS nontender no distention; feeding tub no CCE nonfocal trach in place poorly responsive obtunded Laboratory Tests 09/18/20 02:55: White Blood Count 31.6*H, Red Blood Count 2.60L, Hemoglobin 7.7L, Hematocrit 24.6L, Mean Corpuscular Volume 95, Mean Corpuscular Hemoglobin 29.7, Mean Corpuscular Hemoglobin Concent 31.3L, Red Cell Distribution Width 14.0, Platelet Count 99L, Mean Platelet Volume 9.3, Neutrophils (%) (Auto) , Lymphocytes (%) (A uto) , Monocytes (%) (Auto) , Eosinophils (%) (Auto) , Basophils (%) (Auto) , Differential Total Cells Counted 100, Neutrophils % (Manual) 82H, Lymphocytes % (Manual) 2L, Monocytes % (Manual) 3, Eosinophils % (Manual) 0, Basophils % (Manual) 0, Band Neutrophils 13H, Platelet Estimate DecreasedL, Platelet Morphology Normal, Polychromasia 1+, Hypochromasia 1+, Anisocytosis 1+, Sodium Level 140, Potassium Level 4.8, Chloride Level 107, Carbon Dioxide Level 23, Anion Gap 10, Blood Urea Nitrogen 136H, Creatinine 2.9H, Estimat Glomerular Filtration Rate 20.6, Glucose Level 139H, Calcium Level 7.3L, Total Bilirubin 0.4, Aspartate Amino Transf (AST/SGOT) 20, Alanine Aminotransferase (ALT/SGPT) 25, Alkaline Phosphatase 252H, Total Protein 4.8L, Albumin 1.1L, Globulin 3.7, Albumin/Globulin Ratio 0.3L Current Medications Medications (Trade) Dose Ordered Sig/Javon Route PRN Reason Start Time Stop Time Status Last Admin Dose Admin Acetaminophen (Tylenol) 650 mg Q6H PRN GT For Headache 09/16/20 04:30 10/16/20 04:29 Amiodarone HCl (Cordarone) 200 mg DAILY NG 09/04/20 09:00 11/15/20 08:59 09/18/20 08:53 Chlorhexidine Gluconate (Kathryn-Hex 2%) 1 applic DAILY@2000 TOPIC 09/18/20 20:00 12/17/20 19:59 Dopamine HCl/ Dextrose 250 ml @ 0 mls/hr Q24H IV 09/17/20 21:45 09/20/20 21:44 09/17/20 22:13 Fluconazole (Diflucan) 100 mg DAILY NG 09/15/20 10:00 09/22/20 09:59 09/18/20 08:53 Heparin Sodium (Porcine) (Heparin 5000 units/ml) 5,000 units EVERY 12 HOURS SUBQ 09/18/20 09:00 11/02/20 08:59 UNV Heparin Sodium/ Sodium Chloride (Heparin 1000 units/500ml Premix) 1,000 unit ONCE PRN INJ radiology procedure 09/17/20 13:00 09/19/20 12:59 Lansoprazole (Prevacid) 30 mg DAILY NG 08/30/20 09:00 09/29/20 08:59 09/18/20 08:52 Levofloxacin (Levaquin) 250 mg DAILY ORAL 09/16/20 11:56 09/23/20 11:55 09/18/20 08:53 Lidocaine HCl (Xylocaine 1% 30ml) 30 ml ONCE PRN INJ radiology procedure 09/17/20 13:00 09/19/20 12:59 Assessment/Plan Assessment/Plan ASSESSMENT: chronic encephalopathy, dementia, diffuse infiltrates, elevated BNP hypertension, recurrent falls, and urinary tract infection, hypoxemia, probable aspiration pneumonia. acute respiratory failure hypoxemic s/p trach; worsening CO2 retention PLAN care noted taper oxygen monitor PIP- and level of pressures on vent hyperventilate and repeat ABG poor lung function respiratory care as is- monitor acid base vent support as is full support for now monitor imaging suction off load trach care GT Full code nutrition DVT prophylaxis skin care position change prognosis very poor for improvement impression, plan, and exam edited and reviewed in detail care discussed with Eriberto Gilliland MD Sep 18, 2020 11:04
--- NOTE | 2020-09-18 11:39 | NUR ---
NURSE NOTES: Seen by Dr. Parks and notified him regarding US abd. results. NNO at present.
--- NOTE | 2020-09-18 13:30 | NUR ---
NURSE NOTES: S/P blood transfusion. No a/r noted. Afebrile.
--- NOTE | 2020-09-18 13:35 | NUR ---
NURSE NOTES: Hand over care to Emerita ARGUELLES.
--- NOTE | 2020-09-18 13:35 | Surgery Progress Note ---
Surgery Progress Note Subjective Procedure Performed trach Additional Comments picc in hypotensive ons upport ill appearing worsening leukocytosis Objective Last 24 Hour Vital Signs Date Time Temp Pulse Resp B/P (MAP) Pulse Ox O2 Delivery O2 Flow Rate FiO2 09/18/20 12:00 50 09/18/20 12:00 98.6 89 109/57 (74) 18 09/18/20 08:12 80 09/18/20 08:00 50 09/18/20 08:00 Mechanical Ventilator 09/18/20 08:00 98.4 96 105/59 (74) 20 09/18/20 07:20 87 29 60 09/18/20 06:13 110/58 09/18/20 05:13 106/46 09/18/20 04:13 96/52 09/18/20 04:00 50 09/18/20 04:00 Mechanical Ventilator 09/18/20 04:00 91 09/18/20 04:00 96.6 83 96/52 (67) 28 09/18/20 03:13 90/52 09/18/20 03:00 90 31 60 09/18/20 02:13 110/60 09/18/20 01:13 118/54 09/18/20 00:13 87/78 09/18/20 00:00 98.6 83 108/70 (83) 29 09/18/20 00:00 Mechanical Ventilator 09/17/20 23:15 100 36 60 09/17/20 23:13 90/50 09/17/20 22:13 100/56 09/17/20 20:00 96.8 84 100/56 (71) 30 09/17/20 20:00 50 09/17/20 20:00 Mechanical Ventilator 09/17/20 20:00 50 09/17/20 20:00 87 09/17/20 19:15 87 39 60 09/17/20 16:00 97.7 96 114/60 (78) 26 09/17/20 16:00 50 09/17/20 16:00 Mechanical Ventilator 09/17/20 16:00 95 I&O Intake and Output 09/17/20 09/18/20 19:00 07:00 Intake Total 780.0 ml 1639 ml Output Total 20 ml 150 ml Balance 760.0 ml 1489 ml Free Water 150 ml 100 ml IV Total 150.0 ml 1099 ml Tube Feeding 480 ml 440 ml Stool Total 20 ml 150 ml # Voids 2 Dressing: saturated Cardiovascular: RSR Respiratory: decreased breath sounds Abdomen: soft, non-tender, non-distended, decreased bowel sounds Extremities: no edema, no tenderness, no cyanosis Laboratory Tests Test 09/18/20 02:55 White Blood Count 31.6 K/UL (4.8-10.8) *H Red Blood Count 2.60 M/UL (4.70-6.10) L Hemoglobin 7.7 G/DL (14.2-18.0) L Hematocrit 24.6 % (42.0-52.0) L Mean Corpuscular Volume 95 FL (80-99) Mean Corpuscular Hemoglobin 29.7 PG (27.0-31.0) Mean Corpuscular Hemoglobin Concent 31.3 G/DL (32.0-36.0) L Red Cell Distribution Width 14.0 % (11.6-14.8) Platelet Count 99 K/UL (150-450) L Mean Platelet Volume 9.3 FL (6.5-10.1) Neutrophils (%) (Auto) % (45.0-75.0) Lymphocytes (%) (Auto) % (20.0-45.0) Monocytes (%) (Auto) % (1.0-10.0) Eosinophils (%) (Auto) % (0.0-3.0) Basophils (%) (Auto) % (0.0-2.0) Differential Total Cells Counted 100 Neutrophils % (Manual) 82 % (45-75) H Lymphocytes % (Manual) 2 % (20-45) L Monocytes % (Manual) 3 % (1-10) Eosinophils % (Manual) 0 % (0-3) Basophils % (Manual) 0 % (0-2) Band Neutrophils 13 % (0-8) H Platelet Estimate Decreased L Platelet Morphology Normal Polychromasia 1+ Hypochromasia 1+ Anisocytosis 1+ Sodium Level 140 MMOL/L (136-145) Potassium Level 4.8 MMOL/L (3.5-5.1) Chloride Level 107 MMOL/L (98-107) Carbon Dioxide Level 23 MMOL/L (21-32) Anion Gap 10 mmol/L (5-15) Blood Urea Nitrogen 136 mg/dL (7-18) H Creatinine 2.9 MG/DL (0.55-1.30) H Estimat Glomerular Filtration Rate 20.6 mL/min (>60) Glucose Level 139 MG/DL (74-106) H Calcium Level 7.3 MG/DL (8.5-10.1) L Total Bilirubin 0.4 MG/DL (0.2-1.0) Aspartate Amino Transf (AST/SGOT) 20 U/L (15-37) Alanine Aminotransferase (ALT/SGPT) 25 U/L (12-78) Alkaline Phosphatase 252 U/L (46-116) H Total Protein 4.8 G/DL (6.4-8.2) L Albumin 1.1 G/DL (3.4-5.0) L Globulin 3.7 g/dL Albumin/Globulin Ratio 0.3 (1.0-2.7) L Plan Problems: (1) Pneumonia (2) Hypoxia (3) Sepsis Assessment & Plan: respiratory insufficiency prolonged ventilatory support failed weaning trials weaning vent as much as possible anticipate prolong vent support trach indicated and recommended will obtain consent plan for trach as able to wean thank you cont weaning will follow with recs s/p trach wean sedation wean vent no active bleeding noted h/h noted trend labs worsening prognosis guarded peg 09/08 cont tf worsening overall wean pressors Pt deconditioned and presented on admission with multiple Pressure Injuries , Generalized edema. Weeping edema bilat upper extremities and and trunk.Large Purpura ventral R forearm. Unstageable Pressure Injury R elbow(L)5cm x (W)5cm. Base of wound is 100% conrad slough. Edges erythematous but adherent to base of wound. Periwound is indurated and erythematous. No elevation in skin temp noted. DTPI L elbow. Base of Pressure injury is purpuric and indurated.(L)2cm x (W)1.8c m. Penile torsion noted. Irregular shaped- Full thickness Ulcer at base of shaft (L)4cm x (W)4cm. Base of wound is 100% slough . Marginal erythema along edges. No exudate noted. DTPI Sacrum. Base of Pressure Injury is Purpuric at Farida cleft and Sacrococcy geal areas with surrounding Maroon borders. Non-blanchable erythema without induration R and L ischial tuberosities. DTPI L Heel and plantar aspect(L)9cm x (W)5cm. Base of Pressure injury is Is maroon and fluctuant. DTPI R Heel and Plantar aspect of Heel(L)8.5cm x (W)8cm. Base of Pressure injury is maroon with fluctuance. Tx.Plan:Cleanse wound R Elbow with Saline. Apply TheraHoney.Apply Cavilon Skin Barrier Periwound. Cover with Optifoam Drsg. Change Daily and prn. Apply Cavilon Skin Barrier to L Elbow. Cover with Optifoam drsg. Change every 7 days and prn. Cleanse Ulcer at Base of Shaft of Penis with Saline. Apply Triad Paste Twice Daily and prn. Apply Moisture Barrier Paste to Sacrum. Cover with Optifoam drsg. Change every 3 days and prn. Apply Moisture Barrier Paste to R and L Ischial tuberosities. Cover each site with Optifoam drsgs. Change every 3 Days and prn. Apply Cavilon Skin Barrier to both heels. Cover each heel with Optifoam drsgs. Change every 7 days and prn. Elevate both Upper extremities with Pillow. Reposition at least every 2hours or as tolerated. Off-load heels with pillows. APM/EUNICE Mattress overlay. (4) UTI (urinary tract infection) (5) Pneumonia (6) AMS (altered mental status) Isaias Loaiza Sep 18, 2020 13:35
--- NOTE | 2020-09-18 13:38 | NUR ---
NURSE NOTES: Received report BLANE Cano,patient on dopamine drip low blood pressure,on ventilator,incontinent urine,G tube feeding Observe contact isolation,head 30 degrees ,aspiration precaution
--- NOTE | 2020-09-18 15:12 | NUR ---
CASE MANAGEMENT:REVIEW 09/18/2020 SI:ACUTE RESPIRATORY FAILURE S/P NEW TRACH PLACEMENT AND PEG VS: T 98.6 HR 89 RR 29 B/P 109/57 SATS 18% ON MECH VENT FIO2 50 LABS: WBC 31.6 HGB 7.7 HCT 24.6 BUN 136 CR 2.9 GLU 139 CA 7.3 ALP 252 IS: DOPAMINE GTT LEVAQUIN GT QD DIFLUCAN GT QD AMIODARONE GT QD HEPARIN SQ Q12 : STEP DOWN UNIT
--- NOTE | 2020-09-18 16:00 | NUR ---
NURSE NOTES: Patient suctioned tracheostomy-dressing changed,generalized edema,skin care done,leaking fluid arms and body,head elevated,aspiration precaution,VS monitored on dopamine drip,rectal tube leaking-cleaned,all extremities elevated,granddaughter called updated of care ,she notified me Dr. Gilmore also updated her
[2020-09-18] MEDS ORDERED: Tubing IV Secondary IV ONE ×2 (16:05→16:06)
[2020-09-18] MEDS ORDERED: NS 275ml ONE ×2 (16:05→16:06)
[2020-09-18] MEDS ORDERED: NS 500ML ONE (16:06)
--- NOTE | 2020-09-18 17:25 | Infectious Diseases Prog Note ---
"Assessment/Plan Assessment/Plan antibiotics : levoquin, fluconazole A 1. raoultella | stenotrophomonas pneumonia 2. COVID-19 test is negative. 3. fungal Urinary tract infection 4. Hypertension. 5. Dementia. 6. Respiratory failure s/p tracheostomy 7. leucocytosis increased 8. renal failure P 1. continue levoquin 7 more days 2. continue fluconazole 3 more days 3. blood culture 4. will follow up cultures Subjective ROS Limited/Unobtainable: Yes Allergies: Coded Allergies: VANCOMYCIN (Verified Allergy, Severe, hive, 08/27/20) Objective Last 24 Hour Vital Signs Date Time Temp Pulse Resp B/P (MAP) Pulse Ox O2 Delivery O2 Flow Rate FiO2 09/18/20 16:00 96.8 91 78/41 (53) 21 09/18/20 16:00 90 09/18/20 13:13 118/66 09/18/20 12:24 94 09/18/20 12:13 109/57 09/18/20 12:00 50 09/18/20 12:00 98.6 89 109/57 (74) 18 09/18/20 12:00 Mechanical Ventilator 09/18/20 11:13 103/56 09/18/20 10:13 94/51 09/18/20 09:13 115/72 09/18/20 08:13 103/72 09/18/20 08:12 80 09/18/20 08:00 50 09/18/20 08:00 Mechanical Ventilator 09/18/20 08:00 98.4 96 105/59 (74) 20 09/18/20 07:20 87 29 60 09/18/20 07:13 105/56 09/18/20 06:13 110/58 09/18/20 05:13 106/46 09/18/20 04:13 96/52 09/18/20 04:00 50 09/18/20 04:00 Mechanical Ventilator 09/18/20 04:00 91 09/18/20 04:00 96.6 83 96/52 (67) 28 09/18/20 03:13 90/52 09/18/20 03:00 90 31 60 09/18/20 02:13 110/60 09/18/20 01:13 118/54 09/18/20 00:13 87/78 09/18/20 00:00 98.6 83 108/70 (83) 29 09/18/20 00:00 Mechanical Ventilator 09/17/20 23:15 100 36 60 09/17/20 23:13 90/50 09/17/20 22:13 100/56 09/17/20 20:00 96.8 84 100/56 (71) 30 09/17/20 20:00 50 09/17/20 20:00 Mechanical Ventilator 09/17/20 20:00 50 09/17/20 20:00 87 09/17/20 19:15 87 39 60 Height (Feet): 5 Height (Inches): 4.00 Weight (Pounds): 147 HEENT: status post trach Respiratory/Chest: lungs clear Cardiovascular: normal rate, regular rhythm, no gallop/murmur Abdomen: soft, non tender, other - Gt Extremities: other - + edema, right arm PICC Laboratory Tests Test 09/18/20 02:55 White Blood Count 31.6 K/UL (4.8-10.8) *H Red Blood Count 2.60 M/UL (4.70-6.10) L Hemoglobin 7.7 G/DL (14.2-18.0) L Hematocrit 24.6 % (42.0-52.0) L Mean Corpuscular Volume 95 FL (80-99) Mean Corpuscular Hemoglobin 29.7 PG (27.0-31.0) Mean Corpuscular Hemoglobin Concent 31.3 G/DL (32.0-36.0) L Red Cell Distribution Width 14.0 % (11.6-14.8) Platelet Count 99 K/UL (150-450) L Mean Platelet Volume 9.3 FL (6.5-10.1) Neutrophils (%) (Auto) % (45.0-75.0) Lymphocytes (%) (Auto) % (20.0-45.0) Monocytes (%) (Auto) % (1.0-10.0) Eosinophils (%) (Auto) % (0.0-3.0) Basophils (%) (Auto) % (0.0-2.0) Differential Total Cells Counted 100 Neutrophils % (Manual) 82 % (45-75) H Lymphocytes % (Manual) 2 % (20-45) L Monocytes % (Manual) 3 % (1-10) Eosinophils % (Manual) 0 % (0-3) Basophils % (Manual) 0 % (0-2) Band Neutrophils 13 % (0-8) H Platelet Estimate Decreased L Platelet Morphology Normal Polychromasia 1+ Hypochromasia 1+ Anisocytosis 1+ Sodium Level 140 MMOL/L (136-145) Potassium Level 4.8 MMOL/L (3.5-5.1) Chloride Level 107 MMOL/L (98-107) Carbon Dioxide Level 23 MMOL/L (21-32) Anion Gap 10 mmol/L (5-15) Blood Urea Nitrogen 136 mg/dL (7-18) H Creatinine 2.9 MG/DL (0.55-1.30) H Estimat Glomerular Filtration Rate 20.6 mL/min (>60) Glucose Level 139 MG/DL (74-106) H Calcium Level 7.3 MG/DL (8.5-10.1) L Total Bilirubin 0.4 MG/DL (0.2-1.0) Aspartate Amino Transf (AST/SGOT) 20 U/L (15-37) Alanine Aminotransferase (ALT/SGPT) 25 U/L (12-78) Alkaline Phosphatase 252 U/L (46-116) H Total Protein 4.8 G/DL (6.4-8.2) L Albumin 1.1 G/DL (3.4-5.0) L Globulin 3.7 g/dL Albumin/Globulin Ratio 0.3 (1.0-2.7) L Current Medications Medications (Trade) Dose Ordered Sig/Javon Route PRN Reason Start Time Stop Time Status Last Admin Dose Admin Acetaminophen (Tylenol) 650 mg Q6H PRN GT For Headache 09/16/20 04:30 10/16/20 04:29 Amiodarone HCl (Cordarone) 200 mg DAILY NG 09/04/20 09:00 11/15/20 08:59 09/18/20 08:53 Chlorhexidine Gluconate (Kathryn-Hex 2%) 1 applic DAILY@2000 TOPIC 09/18/20 20:00 12/17/20 19:59 Dopamine HCl/ Dextrose 250 ml @ 0 mls/hr Q24H IV 09/17/20 21:45 09/20/20 21:44 09/17/20 22:13 Fluconazole (Diflucan) 100 mg DAILY NG 09/15/20 10:00 09/22/20 09:59 09/18/20 08:53 Heparin Sodium (Porcine) (Heparin 5000 units/ml) 5,000 units EVERY 12 HOURS SUBQ 09/18/20 09:00 11/02/20 08:59 UNV Heparin Sodium/ Sodium Chloride (Heparin 1000 units/500ml Premix) 1,000 unit ONCE PRN INJ radiology procedure 09/17/20 13:00 09/19/20 12:59 Lansoprazole (Prevacid) 30 mg DAILY NG 08/30/20 09:00 09/29/20 08:59 09/18/20 08:52 Levofloxacin (Levaquin) 250 mg DAILY ORAL 09/16/20 11:56 09/23/20 11:55 09/18/20 08:53 Lidocaine HCl (Xylocaine 1% 30ml) 30 ml ONCE PRN INJ radiology procedure 09/17/20 13:00 09/19/20 12:59 Wagner Christensen MD Sep 18, 2020 17:25"
--- NOTE | 2020-09-18 19:15 | NUR ---
NURSE NOTES: Received pt in bed from Emerita Dumont RN. Pt is obtunded. Responding to light sternal rub only. Trach to vent. Saturating 94-95% with current vent setting. Respirations even and unlabored. SR on arts manager. GT feeding of nepro at 40 cc/hr. w/no residual noted. HOB elevated. Dopamine drip at 5 mcg fixed rate infusing well. B/P currently at 92/51 Bed is on lowest position, locked, side rails up, call light within reach. Bed alarm engaged. Patient will continue to be monitor B/P closely.
--- NOTE | 2020-09-18 19:27 | NUR ---
HAND-OFF: Report given to BLANE Madrigal,on dopamine drip low blood pressure,condition unstable,on ventilator,no ditress,G tube feeding,rectal tube,PICC line right upper arm,dressing dry intact.
--- NOTE | 2020-09-18 20:17 | General Progress Note ---
Subjective Allergies: Coded Allergies: VANCOMYCIN (Verified Allergy, Severe, hive, 08/27/20) Subjective above noted Non responsive doing poorly U/S noted ---> ascites d/w grand daughter at length at length re poor prognosis family still wants all aggressive measures advised re ? role of paracentesis may potentially guide abx choice if infected ascites Objective Last 24 Hour Vital Signs Date Time Temp Pulse Resp B/P (MAP) Pulse Ox O2 Delivery O2 Flow Rate FiO2 09/18/20 18:13 87/43 09/18/20 17:13 110/59 09/18/20 17:00 95 110/59 (76) 09/18/20 16:13 77/44 09/18/20 16:00 60 09/18/20 16:00 96.8 91 78/41 (53) 21 09/18/20 16:00 90 09/18/20 16:00 Mechanical Ventilator 09/18/20 15:13 89/48 09/18/20 14:13 78/49 09/18/20 13:13 118/66 09/18/20 13:05 98 28 60 09/18/20 12:24 94 09/18/20 12:13 109/57 09/18/20 12:00 50 09/18/20 12:00 98.6 89 109/57 (74) 18 09/18/20 12:00 Mechanical Ventilator 09/18/20 11:13 103/56 09/18/20 10:13 94/51 09/18/20 09:13 115/72 09/18/20 08:13 103/72 09/18/20 08:12 80 09/18/20 08:00 50 09/18/20 08:00 Mechanical Ventilator 09/18/20 08:00 98.4 96 105/59 (74) 20 09/18/20 07:20 87 29 60 09/18/20 07:13 105/56 09/18/20 06:13 110/58 09/18/20 05:13 106/46 09/18/20 04:13 96/52 09/18/20 04:00 50 09/18/20 04:00 Mechanical Ventilator 09/18/20 04:00 91 09/18/20 04:00 96.6 83 96/52 (67) 28 09/18/20 03:13 90/52 09/18/20 03:00 90 31 60 09/18/20 02:13 110/60 09/18/20 01:13 118/54 09/18/20 00:13 87/78 09/18/20 00:00 98.6 83 108/70 (83) 29 09/18/20 00:00 Mechanical Ventilator 09/17/20 23:15 100 36 60 09/17/20 23:13 90/50 09/17/20 22:13 100/56 Intake and Output 09/17/20 09/18/20 19:00 07:00 Intake Total 780.0 ml 1679 ml Output Total 20 ml 150 ml Balance 760.0 ml 1529 ml Free Water 150 ml 100 ml IV Total 150.0 ml 1099 ml Tube Feeding 480 ml 480 ml Stool Total 20 ml 150 ml # Voids 2 Laboratory Tests 09/18/20 02:55: White Blood Count 31.6*H, Red Blood Count 2.60L, Hemoglobin 7.7L, Hematocrit 24.6L, Mean Corpuscular Volume 95, Mean Corpuscular Hemoglobin 29.7, Mean Corpuscular Hemoglobin Concent 31.3L, Red Cell Distribution Width 14.0, Platelet Count 99L, Mean Platelet Volume 9.3, Neutrophils (%) (Auto) , Lymphocytes (%) (Auto) , Monocytes (%) (Auto) , Eosinophils (%) (Auto) , Basophils (%) (Auto) , Differential Total Cells Counted 100, Neutrophils % (Manual) 82H, Lymphocytes % (Manual) 2L, Monocytes % (Manual) 3, Eosinophils % (Manual) 0, Basophils % (Manual) 0, Band Neutrophils 13H, Platelet Estimate DecreasedL, Platelet Morphology Normal, Polychromasia 1+, Hypochromasia 1+, Anisocytosis 1+, Sodium Level 140, Potassium Level 4.8, Chloride Level 107, Carbon Dioxide Level 23, Anion Gap 10, Blood Urea Nitrogen 136H, Creatinine 2.9H, Estimat Glomerular Filtration Rate 20.6, Glucose Level 139H, Calcium Level 7.3L, Total Bilirubin 0.4, Aspartate Amino Transf (AST/SGOT) 20, Alanine Aminotransferase (ALT/SGPT) 25, Alkaline Phosphatase 252H, Total Protein 4.8L, Albumin 1.1L, Globulin 3.7, Albumin/Globulin Ratio 0.3L Height (Feet): 5 Height (Inches): 4.00 Weight (Pounds): 147 Objective Elderly man unresponsive NCAT supple, (+) trach scattered ronchi RR abd soft, (+) GT tedema Assessment/Plan Status: stable, not improved Assessment/Plan: Assessment - Leukocytosis - Ascites, ? infected - shock - respiratory failure, s/p Trach - renal failure - Parox a fib - acute myocardial ischemia - PNA/sepsis - dysphagia - s/p PEG - elevated glucose - poor prognosis - approaching terminal Recommendations - continue low K TF formula - diagnostic paracentesis - supportive care - PEG care - ID follow up - Pulmonary toilet, vent care Arely Parks MD Sep 18, 2020 20:17
[2020-09-18] MEDS: Heparin 5000 units/ml inj SUBQ SCH (21:12)
[2020-09-18] MEDS: Dyna-Hex 2% Top Sol 2oz TOPIC SCH (21:43)
[2020-09-18] MEDS: DOPamine 400mg/250ml 250 ML IV SCH (21:44)
[2020-09-19] VITALS (14 sets, daily range): BP systolic 57–95; BP diastolic 11–69
--- NOTE | 2020-09-19 | NUR ---
NURSE NOTES: Eyes open. In no apparent distress. Respirations even and unlabored. SR on radiation monitor. No significant changes noted. VSS Afebrile. B/p within acceptable limits.
--- NOTE | 2020-09-19 03:00 | NUR ---
NURSE NOTES: Eyes open but doesnt blink. Respirations even and unlabored. SR on commercial analyst. Afebrile. B/p flactuating between low and acceptable. Tolerating GT feeding well with zero residual. Remain edematous to all four extremeties with weeping noted to upper extremeties.
--- NOTE | 2020-09-19 06:00 | NUR ---
NURSE NOTES: Condition remain guarded. B/p very unstable, Dopamine drip remain at 5mcg/kg/hr. Tolerating GT feeding well. Will continue to monitor closely.
[2020-09-19 06:27] LABS: HEMATOCRIT 29.5 % (42.0-52.0); HEMOGLOBIN 9.9 G/DL (14.2-18.0); MEAN CORPUSCULAR VOLUME 92 FL (80-99); PLATELET COUNT 65 K/UL (150-450); RED BLOOD COUNT 3.19 M/UL (4.70-6.10)
[2020-09-19 06:41] LABS: ALBUMIN 0.8 G/DL (3.4-5.0); ALBUMIN/GLOBULIN RATIO 0.2 (1.0-2.7); BILIRUBIN,TOTAL 0.4 MG/DL (0.2-1.0); CALCIUM 7.7 MG/DL (8.5-10.1); POTASSIUM 4.9 MMOL/L (3.5-5.1)
--- NOTE | 2020-09-19 07:18 | NUR ---
HAND-OFF: Report given to Brandon Starkey RN.
--- NOTE | 2020-09-19 07:20 | NUR ---
NURSE NOTES: Received patient from Jose Rafael ARGUELLES. Will continue current plan of care.
--- NOTE | 2020-09-19 07:30 | NUR ---
RD ASSESSMENT & RECOMMENDATIONS SEE CARE ACTIVITY FOR COMPLETE ASSESSMENT DAILY ESTIMATED NEEDS: Needs based on Underweight, crirtical care/ 45kg 30-35 kcals/kg 6215-9370 total kcals 1.2-2 g protein/kg 54-90 g total protein 25-30 mL/kg 5480-0080 total fluid mLs NUTRITION DIAGNOSIS: * Increased kcal/prot needs R/T underweight status, wound healing as evidenced by pt @ 73% IBW, w/ BMI of 16.5, low BMI per guidelines, now w/ new wounds, including DTPI wounds x 4 and unstageable wound, refer to eval. * Swallowing difficulty R/T dysphagia, respiratory status as evidenced by s/p failed video swallow study, w/ rec for NPO, s/p NGT insertion for NGT feeds, s/p oral intubation (08/19), now s/p trach placement (08/27),pending PEG placement. CURRENT TF:Nepro @ 40ml/hr x 24 hrs ENTERAL NUTRITION RECOMMENDATIONS: WITH HEMODYNAMIC STABILITY -> Nepro @ 36ml/hr x 24 hrs to provide 864ml, 1555 kcal, 70g pro, 628ml free H2O * LOWER goal rate to 36ml/hr x 24 hrs not to exceed est needs. * flush per MD, HOB over 30 degrees --------- WITHOUT HEMODYNAMIC STABILITY, rec trophic feeding of Nepro @ 10ml/hr x 24 hrs if able to keep HOB >30 degrees ADDITIONAL RECOMMENDATIONS: * Wt@ SNF on [id number] (48kg) fluctuating daily wts, rec recalibrated bedscale wt (wts now 60's kg) * Monitor lytes -> K previously consistently elevated, continue Nepro * Rec NISS w/ TF, rec accuchecks * Consider increasing water flushes: BUN and creat trending up * Wound care: MVI x1, Vit C 500mg QD, ZnSO4 220mg QD x 10 days + Dread BID via PEG
[2020-09-19] MEDS: Fluconazole 100mg tab NG SCH (08:22)
[2020-09-19] MEDS: Amiodarone 200mg tab NG SCH (08:23)
[2020-09-19] MEDS ORDERED: Sterile Water Irrig 1000ml IRRIG ONE (09:53)
[2020-09-19] MEDS ORDERED: NS 500ML ONE (09:53)
[2020-09-19] MEDS ORDERED: NS 275ml ONE (09:53)
[2020-09-19] MEDS ORDERED: Tubing IV Secondary IV ONE (09:53)
--- NOTE | 2020-09-19 09:53 | NUR ---
NURSE NOTES: Received report BLANE Starkey patient on ventilator,Dopamine drip,rectal tube,G tube,head elevated,observe contact isolation ,continue to monitor Addendum: 09/19/20 at 1139 by Emerita Cotton RN received dopamine drip at 7 mcg/kg/min BP-77/47,continue to monitor 1125-BP-78/[address] Gilmore-paulo NS 500 ml IV bolus x1
[2020-09-19] MEDS ORDERED: Tubing IV Blood Pump IV ONE (09:54)
--- NOTE | 2020-09-19 09:55 | NUR ---
NURSE HAND-OFF REPORT: Important Events on Shift: Patient Status: Stable Diet: GT feeding Pending Orders: Pending Results/Labs: Pending MD notification: Latest Vital Signs: Temperature 97.4 , Pulse 91 , B/P 71 /36 , Respiratory Rate 28 , O2 SAT 96 , Mechanical Ventilator, O2 Flow Rate 70.0 . Vital Sign Comment: hypotensive EKG Rhythm: Sinus Rhythm Rhythm change?: N MD Notified?: N -Dr. Virgil KURTZ Response: Message left await call Latest José Fall Score: 95 Fall Risk: High Risk Safety Measures: Call light Within Reach, Bed Alarm Zone 1, Side Rails Side Rails x3, Bed position Low and Locked. Fall Precautions: Yellow Socks Yellow Gown Door Sign Patient Fall Education Report given to JIN Jones.
--- NOTE | 2020-09-19 10:19 | NUR ---
CASE MANAGEMENT:REVIEW 09/19/2020 SI:ACUTE RESPIRATORY FAILURE S/P NEW TRACH PLACEMENT AND PEG VS: T 97.4 HR 91 RR 28 B/P 71/36 SATS 96% ON MECH VENT FIO2 60 LABS: WBC 24 BUN 142 CR 3 CA 7.7 ALP 234 IS: DOPAMINE GTT LEVAQUIN GT QD DIFLUCAN GT QD AMIODARONE GT QD HEPARIN SQ Q12 : STEP DOWN UNIT
--- NOTE | 2020-09-19 12:24 | General Progress Note ---
Subjective ROS Limited/Unobtainable: Yes Constitutional: Reports: malaise, weakness HEENT: Reports: no symptoms Cardiovascular: Reports: edema Respiratory: Reports: SOB at rest, sputum Gastrointestinal/Abdominal: Reports: difficulty swallowing Genitourinary: Reports: no symptoms Neurologic/Psychiatric: Reports: pre-existing deficit Endocrine: Reports: no symptoms Hematologic/Lymphatic: Reports: anemia Allergies: Coded Allergies: VANCOMYCIN (Verified Allergy, Severe, hive, 08/27/20) All Systems: reviewed and negative except above Subjective Patient with increased pressor requirements. Remains poorly responsive. Awake but does not follow commands. White blood cell count remains elevated. On tube feeds. On dopamine at 8 mics Objective Last 24 Hour Vital Signs Date Time Temp Pulse Resp B/P (MAP) Pulse Ox O2 Delivery O2 Flow Rate FiO2 09/19/20 08:00 86 32 60 09/19/20 08:00 Mechanical Ventilator 09/19/20 08:00 97.4 91 28 71/36 (48) 96 09/19/20 08:00 60 09/19/20 07:50 89 09/19/20 06:00 78/42 09/19/20 04:00 89 09/19/20 04:00 104/54 09/19/20 04:00 Mechanical Ventilator 09/19/20 04:00 97.7 89 28 82/43 (56) 94 09/19/20 04:00 60 09/19/20 03:00 92/59 09/19/20 02:00 71/48 09/19/20 01:30 86 30 60 09/19/20 01:00 95/69 09/19/20 01:00 97.1 92 28 95/69 (78) 94 09/19/20 00:00 Mechanical Ventilator 09/19/20 00:00 94 30 89/50 (63) 95 09/19/20 00:00 60 09/19/20 00:00 93 09/19/20 00:00 89/50 09/18/20 23:00 92/57 09/18/20 21:44 107/62 09/18/20 20:00 Mechanical Ventilator 09/18/20 20:00 60 09/18/20 20:00 97 09/18/20 20:00 97.7 94 28 107/62 (77) 94 09/18/20 19:15 96 29 60 09/18/20 18:13 87/43 09/18/20 17:13 110/59 09/18/20 17:00 95 110/59 (76) 09/18/20 16:13 77/44 09/18/20 16:00 60 09/18/20 16:00 96.8 91 78/41 (53) 21 09/18/20 16:00 90 09/18/20 16:00 Mechanical Ventilator 09/18/20 15:13 89/48 09/18/20 14:13 78/49 09/18/20 13:13 118/66 09/18/20 13:05 98 28 60 09/18/20 12:24 94 Intake and Output 09/18/20 09/19/20 19:00 07:00 Intake Total 650 ml 540 ml Output Total 200 ml Balance 650 ml 340 ml Free Water 170 ml 100 ml Tube Feeding 480 ml 440 ml Stool Total 200 ml # Voids 2 Laboratory Tests 09/19/20 05:00: White Blood Count 24.0*H, Red Blood Count 3.19L, Hemoglobin 9.9L, Hematocrit 29.5L, Mean Corpuscular Volume 92, Mean Corpuscular Hemoglobin 31.0, Mean Corpuscular Hemoglobin Concent 33.6, Red Cell Distribution Width 14.0, Platelet Count 65L, Mean Platelet Volume 13.4H, Neutrophils (%) (Auto) , Lymphocytes (%) (Auto) , Monocytes (%) (Auto) , Eosinophils (%) (Auto) , Basophils (%) (Auto) , Differential Total Cells Counted 100, Neutrophils % (Manual) 82H, Lymphocytes % (Manual) 3L, Monocytes % (Manual) 1, Eosinophils % (Manual) 0, Basophils % (Manual) 0, Band Neutrophils 14H, Platelet Estimate Adequate, Platelet Morphology Normal, Hypochromasia 1+, Anisocytosis 1+, Sodium Level 140, Pota ssium Level 4.9, Chloride Level 107, Carbon Dioxide Level 21, Anion Gap 12, Blood Urea Nitrogen 142H, Creatinine 3.0H, Estimat Glomerular Filtration Rate 19.8, Glucose Level 107H, Calcium Level 7.7L, Total Bilirubin 0.4, Aspartate Amino Transf (AST/SGOT) 21, Alanine Aminotransferase (ALT/SGPT) 22, Alkaline Phosphatase 234H, Total Protein 4.6L, Albumin 0.8L, Globulin 3.8, Albumin/Globulin Ratio 0.2L Height (Feet): 5 Height (Inches): 4.00 Weight (Pounds): 147 Objective General Appearance: WD/WN, confused, thin. on the vent EENT: normal ENT inspection Neck: non-tender, normal alignment, supple. trach midline Cardiovascular: normal rate, regular rhythm Respiratory/Chest: chest wall non-tender, lungs clear, normal breath sounds, no respiratory distress, no accessory muscle use Abdomen: normal bowel sounds, non tender, soft, no organomegaly Edema: no edema noted Arm (L), no edema noted Arm (R) Assessment/Plan Problem List: (1) Pneumonia ICD Codes: J18.9 - Pneumonia, unspecified organism SNOMED: 552591923 (2) Hypoxia ICD Codes: R09.02 - Hypoxemia SNOMED: 868708359 (3) AMS (altered mental status) ICD Codes: R41.82 - Altered mental status, unspecified SNOMED: 566642223 (4) UTI (urinary tract infection) ICD Codes: N39.0 - Urinary tract infection, site not specified SNOMED: 48139732 (5) Sepsis ICD Codes: A41.9 - Sepsis, unspecified organism SNOMED: 19287520 Status: stable, not improved Assessment/Plan: vent support trach care resp rx/suctioning no wean abx per ID monitor h/h monitor h/h. transfuse as needed dopamine as needed monitor labs/lytes replace as needes dvt/stress ulcer prophylaxis turn q2 poor prognosis d/w grand dtr x 10 mins Chavez Gilmore MD Sep 19, 2020 12:24
--- NOTE | 2020-09-19 13:56 | Infectious Diseases Prog Note ---
Assessment/Plan Assessment/Plan A: 1. Stenotrophomonas & Raoultella pneumonia 2. COVID-19 test is negative. 3. Urinary tract infection with lakshmi 4. Hypertension. 5. Dementia. 6. Respiratory failure intubated 7. Parkinson's disease 8. Fungal UTI treated 9. Hyperkalemia 10. R elbow deep tissue injury 11. Leukocytosis, improving PLAN: Continue Levaquin & Fluconazole Will f/u cultures Subjective ROS Limited/Unobtainable: Yes Constitutional: Denies: fever Allergies: Coded Allergies: VANCOMYCIN (Verified Allergy, Severe, hive, 08/27/20) Objective Last 24 Hour Vital Signs Date Time Temp Pulse Resp B/P (MAP) Pulse Ox O2 Delivery O2 Flow Rate FiO2 09/19/20 11:15 85 26 78/41 (53) 91 09/19/20 11:00 86 28 69/33 (45) 93 09/19/20 10:42 87 28 72/45 (54) 93 09/19/20 08:00 86 32 60 09/19/20 08:00 Mechanical Ventilator 09/19/20 08:00 97.4 91 28 71/36 (48) 96 09/19/20 08:00 60 09/19/20 07:50 89 09/19/20 06:00 78/42 09/19/20 04:00 89 09/19/20 04:00 104/54 09/19/20 04:00 Mechanical Ventilator 09/19/20 04:00 97.7 89 28 82/43 (56) 94 09/19/20 04:00 60 09/19/20 03:00 92/59 09/19/20 02:00 71/48 09/19/20 01:30 86 30 60 09/19/20 01:00 95/69 09/19/20 01:00 97.1 92 28 95/69 (78) 94 09/19/20 00:00 Mechanical Ventilator 09/19/20 00:00 94 30 89/50 (63) 95 09/19/20 00:00 60 09/19/20 00:00 93 09/19/20 00:00 89/50 09/18/20 23:00 92/57 09/18/20 21:44 107/62 09/18/20 20:00 Mechanical Ventilator 09/18/20 20:00 60 09/18/20 20:00 97 09/18/20 20:00 97.7 94 28 107/62 (77) 94 09/18/20 19:15 96 29 60 09/18/20 18:13 87/43 09/18/20 17:13 110/59 09/18/20 17:00 95 110/59 (76) 09/18/20 16:13 77/44 09/18/20 16:00 60 09/18/20 16:00 96.8 91 78/41 (53) 21 09/18/20 16:00 90 09/18/20 16:00 Mechanical Ventilator 09/18/20 15:13 89/48 09/18/20 14:13 78/49 Height (Feet): 5 Height (Inches): 4.00 Weight (Pounds): 147 HEENT: status post trach Respiratory/Chest: other - coarse sounds, on ventilator Cardiovascular: normal rate Abdomen: soft, non tender, other - GT feeding Extremities: other - generalized edema Skin: ulcers Neurologic/Psychiatric: unresponsiveness, aphasia Laboratory Tests Test 09/19/20 05:00 White Blood Count 24.0 K/UL (4.8-10.8) *H Red Blood Count 3.19 M/UL (4.70-6.10) L Hemoglobin 9.9 G/DL (14.2-18.0) L Hematocrit 29.5 % (42.0-52.0) L Mean Corpuscular Volume 92 FL (80-99) Mean Corpuscular Hemoglobin 31.0 PG (27.0-31.0) Mean Corpuscular Hemoglobin Concent 33.6 G/DL (32.0-36.0) Red Cell Distribution Width 14.0 % (11.6-14.8) Platelet Count 65 K/UL (150-450) L Mean Platelet Volume 13.4 FL (6.5-10.1) H Neutrophils (%) (Auto) % (45.0-75.0) Lymphocytes (%) (Auto) % (20.0-45.0) Monocytes (%) (Auto) % (1.0-10.0) Eosinophils (%) (Auto) % (0.0-3.0) Basophils (%) (Auto) % (0.0-2.0) Differential Total Cells Counted 100 Neutrophils % (Manual) 82 % (45-75) H Lymphocytes % (Manual) 3 % (20-45) L Monocytes % (Manual) 1 % (1-10) Eosinophils % (Manual) 0 % (0-3) Basophils % (Manual) 0 % (0-2) Band Neutrophils 14 % (0-8) H Platelet Estimate Adequate Platelet Morphology Normal Hypochromasia 1+ Anisocytosis 1+ Sodium Level 140 MMOL/L (136-145) Potassium Level 4.9 MMOL/L (3.5-5.1) Chloride Level 107 MMOL/L (98-107) Carbon Dioxide Level 21 MMOL/L (21-32) Anion Gap 12 mmol/L (5-15) Blood Urea Nitrogen 142 mg/dL (7-18) H Creatinine 3.0 MG/DL (0.55-1.30) H Estimat Glomerular Filtration Rate 19.8 mL/min (>60) Glucose Level 107 MG/DL (74-106) H Calcium Level 7.7 MG/DL (8.5-10.1) L Total Bilirubin 0.4 MG/DL (0.2-1.0) Aspartate Amino Transf (AST/SGOT) 21 U/L (15-37) Alanine Aminotransferase (ALT/SGPT) 22 U/L (12-78) Alkaline Phosphatase 234 U/L (46-116) H Total Protein 4.6 G/DL (6.4-8.2) L Albumin 0.8 G/DL (3.4-5.0) L Globulin 3.8 g/dL Albumin/Globulin Ratio 0.2 (1.0-2.7) L Current Medications Medications (Trade) Dose Ordered Sig/Javon Route PRN Reason Start Time Stop Time Status Last Admin Dose Admin Acetaminophen (Tylenol) 650 mg Q6H PRN GT For Headache 09/16/20 04:30 10/16/20 04:29 Amiodarone HCl (Cordarone) 200 mg DAILY NG 09/04/20 09:00 11/15/20 08:59 09/19/20 08:23 Chlorhexidine Gluconate (Kathryn-Hex 2%) 1 applic DAILY@2000 TOPIC 09/18/20 20:00 12/17/20 19:59 09/18/20 21:43 Dopamine HCl/ Dextrose 250 ml @ 0 mls/hr Q24H IV 09/17/20 21:45 13/21 21:44 09/18/20 21:44 Fluconazole (Diflucan) 100 mg DAILY NG 09/15/20 10:00 09/22/20 09:59 09/19/20 08:22 Heparin Sodium (Porcine) (Heparin 5000 units/ml) 5,000 units EVERY 12 HOURS SUBQ 09/19/20 09:00 11/03/20 08:59 Lansoprazole (Prevacid) 30 mg DAILY NG 08/30/20 09:00 09/29/20 08:59 09/19/20 08:23 Levofloxacin (Levaquin) 250 mg DAILY ORAL 09/16/20 11:56 09/23/20 11:55 09/19/20 08:23 Baldev Luo MD Sep 19, 2020 13:56
[2020-09-19] MEDS: DOPamine 400mg/250ml 250 ML IV SCH ×2 (14:33→21:25)
--- NOTE | 2020-09-19 14:35 | Pulmonology Progress Note ---
Subjective ROS Limited/Unobtainable: Yes Constitutional: Denies: fever Gastrointestinal/Abdominal: Reports: other - will have NG tube placement today Allergies: Coded Allergies: VANCOMYCIN (Verified Allergy, Severe, hive, 08/27/20) All Systems: reviewed and negative except above Subjective care noted/ d/w nursing/ seen earlier now hypotensive and transfer ordered to ICU on vent/ remains hypoxemic noted acidosis and respiratory acidosis poor LOC noted changes reviewed d/w nursing at bedside Objective Last 24 Hour Vital Signs Date Time Temp Pulse Resp B/P (MAP) Pulse Ox O2 Delivery O2 Flow Rate FiO2 09/19/20 14:33 54/40 09/19/20 11:15 85 26 78/41 (53) 91 09/19/20 11:00 86 28 69/33 (45) 93 09/19/20 10:42 87 28 72/45 (54) 93 09/19/20 08:00 86 32 60 09/19/20 08:00 Mechanical Ventilator 09/19/20 08:00 97.4 91 28 71/36 (48) 96 09/19/20 08:00 60 09/19/20 07:50 89 09/19/20 06:00 78/42 09/19/20 04:00 89 09/19/20 04:00 104/54 09/19/20 04:00 Mechanical Ventilator 09/19/20 04:00 97.7 89 28 82/43 (56) 94 09/19/20 04:00 60 09/19/20 03:00 92/59 09/19/20 02:00 71/48 09/19/20 01:30 86 30 60 09/19/20 01:00 95/69 09/19/20 01:00 97.1 92 28 95/69 (78) 94 09/19/20 00:00 Mechanical Ventilator 09/19/20 00:00 94 30 89/50 (63) 95 09/19/20 00:00 60 09/19/20 00:00 93 09/19/20 00:00 89/50 09/18/20 23:00 92/57 09/18/20 21:44 107/62 09/18/20 20:00 Mechanical Ventilator 09/18/20 20:00 60 09/18/20 20:00 97 09/18/20 20:00 97.7 94 28 107/62 (77) 94 09/18/20 19:15 96 29 60 09/18/20 18:13 87/43 09/18/20 17:13 110/59 09/18/20 17:00 95 110/59 (76) 09/18/20 16:13 77/44 09/18/20 16:00 60 09/18/20 16:00 96.8 91 78/41 (53) 21 09/18/20 16:00 90 09/18/20 16:00 Mechanical Ventilator 09/18/20 15:13 89/48 Intake and Output 09/18/20 09/19/20 19:00 07:00 Intake Total 650 ml 540 ml Output Total 200 ml Balance 650 ml 340 ml Free Water 170 ml 100 ml Tube Feeding 480 ml 440 ml Stool Total 200 ml # Voids 2 Objective WDWN NAD reduced breath sounds bilaterally with scattered rhonchi worse [id number] without MRG NABS nontender no distention; feeding tub no CCE nonfocal trach in place poorly responsive obtunded Laboratory Tests 09/19/20 05:00: White Blood Count 24.0*H, Red Blood Count 3.19L, Hemoglobin 9.9L, Hematocrit 29.5L, Mean Corpuscular Volume 92, Mean Corpuscular Hemoglobin 31.0, Mean Corpuscular Hemoglobin Concent 33.6, Red Cell Distribution Width 14.0, Platelet Count 65L, Mean Platelet Volume 13.4H, Neutrophils (%) (Auto) , Lymphocytes (%) (Auto) , Monocytes (%) (Auto) , Eosinophils (%) (Auto) , Basophils (%) (Auto) , Differential Total Cells Counted 100, Neutrophils % (Manual) 82H, Lymphocytes % (Manual) 3L, Monocytes % (Manual) 1, Eosinophils % (Manual) 0, Basophils % (Manual) 0, Band Neutrophils 14H, Platelet Estimate Adequate, Platelet Morphology Normal, Hypochromasia 1+, Anisocytosis 1+, Sodium Level 140, Potassium Level 4.9, Chloride Level 107, Carbon Dioxide Level 21, Anion Gap 12, Blood Urea Nitrogen 142H, Creatinine 3.0H, Estimat Glomerular Filtration Rate 19.8, Glucose Level 107H, Calcium Level 7.7L, Total Bilirubin 0.4, Aspartate Amino Transf (AST/SGOT) 21, Alanine Aminotransferase (ALT/SGPT) 22, Alkaline Phosphatase 234H, Total Protein 4.6L, Albumin 0.8L, Globulin 3.8, Albumin/Gl obulin Ratio 0.2L Current Medications Medications (Trade) Dose Ordered Sig/Javon Route PRN Reason Start Time Stop Time Status Last Admin Dose Admin Acetaminophen (Tylenol) 650 mg Q6H PRN GT For Headache 09/16/20 04:30 10/16/20 04:29 Amiodarone HCl (Cordarone) 200 mg DAILY NG 09/04/20 09:00 11/15/20 08:59 09/19/20 08:23 Chlorhexidine Gluconate (Kathryn-Hex 2%) 1 applic DAILY@2000 TOPIC 09/18/20 20:00 12/17/20 19:59 09/18/20 21:43 Dopamine HCl/ Dextrose 250 ml @ 0 mls/hr Q24H IV 09/17/20 21:45 09/20/20 21:44 09/19/20 14:33 Fluconazole (Diflucan) 100 mg DAILY NG 09/15/20 10:00 09/22/20 09:59 09/19/20 08:22 Heparin Sodium (Porcine) (Heparin 5000 units/ml) 5,000 units EVERY 12 HOURS SUBQ 09/19/20 09:00 11/03/20 08:59 Lansoprazole (Prevacid) 30 mg DAILY NG 08/30/20 09:00 09/29/20 08:59 09/19/20 08:23 Levofloxacin (Levaquin) 250 mg Q48H ORAL 09/21/20 09:00 09/28/20 08:59 Assessment/Plan Assessment/Plan ASSESSMENT: chronic encephalopathy, dementia, diffuse infiltrates, elevated BNP hypertension, recurrent falls, and urinary tract infection, hypoxemia, probable aspiration pneumonia. acute respiratory failure hypoxemic s/p trach; chronic CO2 retention, hypotension and shock PLAN ICU transfer pressors as needed cardiology noted taper oxygen monitor PIP- and level of pressures on vent hyperventilate and repeat ABG poor lung function respiratory care as is- monitor acid base vent support as is full support for now monitor imaging suction off load trach care GT Full code nutrition DVT prophylaxis skin care position change prognosis very poor for improvement medications/laboratory data/nursing notes/ICU care reviewed in detail note reviewed and edited care discussed with RN and RT ICU time spent >40 minutes Eriberto Valencia MD Sep 19, 2020 14:35
--- NOTE | 2020-09-19 14:35 | NUR ---
NURSE NOTES: Transferred patient to ICU due to low blood pressure,on dopamine drip 8mcg/kg ,on ventilator by bed with respiratory therapist yesika Rios in unit,aware patient 246-D Addendum: 09/19/20 at 1521 by Emerita Cotton RN BP lower than SBP less 90 dopamine drip adjusted to 10 Mcg, with yesika Palacios,Primary nurse Rachael notified
--- NOTE | 2020-09-19 14:57 | General Progress Note ---
Subjective Allergies: Coded Allergies: VANCOMYCIN (Verified Allergy, Severe, hive, 08/27/20) Subjective above noted Non responsive doing poorly U/S noted ---> ascites d/w grand daughter at length at length re poor prognosis family still wants all aggressive measures advised re ? role of paracentesis may potentially guide abx choice if infected ascites Objective Last 24 Hour Vital Signs Date Time Temp Pulse Resp B/P (MAP) Pulse Ox O2 Delivery O2 Flow Rate FiO2 09/19/20 14:33 54/40 09/19/20 11:15 85 26 78/41 (53) 91 09/19/20 11:00 86 28 69/33 (45) 93 09/19/20 10:42 87 28 72/45 (54) 93 09/19/20 08:00 86 32 60 09/19/20 08:00 Mechanical Ventilator 09/19/20 08:00 97.4 91 28 71/36 (48) 96 09/19/20 08:00 60 09/19/20 07:50 89 09/19/20 06:00 78/42 09/19/20 04:00 89 09/19/20 04:00 104/54 09/19/20 04:00 Mechanical Ventilator 09/19/20 04:00 97.7 89 28 82/43 (56) 94 09/19/20 04:00 60 09/19/20 03:00 92/59 09/19/20 02:00 71/48 09/19/20 01:30 86 30 60 09/19/20 01:00 95/69 09/19/20 01:00 97.1 92 28 95/69 (78) 94 09/19/20 00:00 Mechanical Ventilator 09/19/20 00:00 94 30 89/50 (63) 95 09/19/20 00:00 60 09/19/20 00:00 93 09/19/20 00:00 89/50 09/18/20 23:00 92/57 09/18/20 21:44 107/62 09/18/20 20:00 Mechanical Ventilator 09/18/20 20:00 60 09/18/20 20:00 97 09/18/20 20:00 97.7 94 28 107/62 (77) 94 09/18/20 19:15 96 29 60 09/18/20 18:13 87/43 09/18/20 17:13 110/59 09/18/20 17:00 95 110/59 (76) 09/18/20 16:13 77/44 09/18/20 16:00 60 09/18/20 16:00 96.8 91 78/41 (53) 21 09/18/20 16:00 90 09/18/20 16:00 Mechanical Ventilator 09/18/20 15:13 89/48 Intake and Output 09/18/20 09/19/20 19:00 07:00 Intake Total 650 ml 540 ml Output Total 200 ml Balance 650 ml 340 ml Free Water 170 ml 100 ml Tube Feeding 480 ml 440 ml Stool Total 200 ml # Voids 2 Laboratory Tests 09/19/20 05:00: White Blood Count 24.0*H, Red Blood Count 3.19L, Hemoglobin 9.9L, Hematocrit 29.5L, Mean Corpuscular Volume 92, Mean Corpuscular Hemoglobin 31.0, Mean Corpuscular Hemoglobin Concent 33.6, Red Cell Distribution Width 14.0, Platelet Count 65L, Mean Platelet Volume 13.4H, Neutrophils (%) (Auto) , Lymphocytes (%) (Auto) , Monocytes (%) (Auto) , Eosinophils (%) (Auto) , Basophils (%) (Auto) , Differential Total Cells Counted 100, Neutrophils % (Manual) 82H, Lymphocytes % (Manual) 3L, Monocytes % (Manual) 1, Eosinophils % (Manual) 0, Basophils % (Manual) 0, Band Neutrophils 14H, Platelet Estimate Adequate, Platelet Morphology Normal, Hypochromasia 1+, Anisocytosis 1+, Sodium Level 140, Potassium Level 4.9, Chloride Level 107, Carbon Dioxide Level 21, Anion Gap 12, Blood Urea Nitrogen 142H, Creatinine 3.0H, Estimat Glomerular Filtration Rate 19.8, Glucose Level 107H, Calcium Level 7.7L, Total Bilirubin 0.4, Aspartate Amino Transf (AST/SGOT) 21, Alanine Aminotransferase (ALT/SGPT) 22, Alkaline Phosphatase 234H, Total Protein 4.6L, Albumin 0.8L, Globulin 3.8, Albumin/Globulin Ratio 0.2L Height (Feet): 5 Height (Inches): 4.00 Weight (Pounds): 147 Objective Elderly man unresponsive NCAT supple, (+) trach scattered ronchi RR abd soft, (+) GT tedema Assessment/Plan Status: stable, not improved Assessment/Plan: Assessment - Leukocytosis - Ascites, ? infected - shock - respiratory failure, s/p Trach - renal failure - Parox a fib - acute myocardial ischemia - PNA/sepsis - dysphagia - s/p PEG - elevated glucose - poor prognosis - approaching terminal Recommendations - continue low K TF formula - diagnostic paracentesis - supportive care - PEG care - ID follow up - Pulmonary toilet, vent care Arely Parks MD Sep 19, 2020 14:57
--- NOTE | 2020-09-19 15:00 | NUR ---
HAND-OFF: Report given to BLANE Cano,patient on ventilator,G tube feeding,rectal tube,head 30 degrees,observe contact isolation,BP remain less 90
--- NOTE | 2020-09-19 15:51 | NUR ---
NURSE NOTES: Received report from Emerita ARGUELLES.
--- NOTE | 2020-09-19 15:52 | NUR ---
NURSE NOTES: Pt. b/p 83/24 at present on Dopa 10mcg.
--- NOTE | 2020-09-19 15:53 | Surgery Progress Note ---
Surgery Progress Note Subjective Procedure Performed trach Additional Comments ill appearing no n/v labs noted exam stable Objective Last 24 Hour Vital Signs Date Time Temp Pulse Resp B/P (MAP) Pulse Ox O2 Delivery O2 Flow Rate FiO2 09/19/20 14:33 54/40 09/19/20 12:00 85 09/19/20 12:00 Mechanical Ventilator 09/19/20 11:15 80 09/19/20 11:15 85 26 78/41 (53) 91 09/19/20 11:00 86 28 69/33 (45) 93 09/19/20 10:42 87 28 72/45 (54) 93 09/19/20 08:00 86 32 60 09/19/20 08:00 Mechanical Ventilator 09/19/20 08:00 97.4 91 28 71/36 (48) 96 09/19/20 08:00 60 09/19/20 07:50 89 09/19/20 06:00 78/42 09/19/20 04:00 89 09/19/20 04:00 104/54 09/19/20 04:00 Mechanical Ventilator 09/19/20 04:00 97.7 89 28 82/43 (56) 94 09/19/20 04:00 60 09/19/20 03:00 92/59 09/19/20 02:00 71/48 09/19/20 01:30 86 30 60 09/19/20 01:00 95/69 09/19/20 01:00 97.1 92 28 95/69 (78) 94 09/19/20 00:00 Mechanical Ventilator 09/19/20 00:00 94 30 89/50 (63) 95 09/19/20 00:00 60 09/19/20 00:00 93 09/19/20 00:00 89/50 09/18/20 23:00 92/57 09/18/20 21:44 107/62 09/18/20 20:00 Mechanical Ventilator 09/18/20 20:00 60 09/18/20 20:00 97 09/18/20 20:00 97.7 94 28 107/62 (77) 94 09/18/20 19:15 96 29 60 09/18/20 18:13 87/43 09/18/20 17:13 110/59 09/18/20 17:00 95 110/59 (76) 09/18/20 16:13 77/44 09/18/20 16:00 60 09/18/20 16:00 96.8 91 78/41 (53) 21 09/18/20 16:00 90 09/18/20 16:00 Mechanical Ventilator I&O Intake and Output 09/18/20 09/19/20 19:00 07:00 Intake Total 650 ml 540 ml Output Total 200 ml Balance 650 ml 340 ml Free Water 170 ml 100 ml Tube Feeding 480 ml 440 ml Stool Total 200 ml # Voids 2 Dressing: saturated Cardiovascular: RSR Respiratory: decreased breath sounds Abdomen: non-tender, present bowel sounds, non-distended Extremities: no edema, no tenderness, no cyanosis Laboratory Tests Test 09/19/20 05:00 White Blood Count 24.0 K/UL (4.8-10.8) *H Red Blood Count 3.19 M/UL (4.70-6.10) L Hemoglobin 9.9 G/DL (14.2-18.0) L Hematocrit 29.5 % (42.0-52.0) L Mean Corpuscular Volume 92 FL (80-99) Mean Corpuscular Hemoglobin 31.0 PG (27.0-31.0) Mean Corpuscular Hemoglobin Concent 33.6 G/DL (32.0-36.0) Red Cell Distribution Width 14.0 % (11.6-14.8) Platelet Count 65 K/UL (150-450) L Mean Platelet Volume 13.4 FL (6.5-10.1) H Neutrophils (%) (Auto) % (45.0-75.0) Lymphocytes (%) (Auto) % (20.0-45.0) Monocytes (%) (Auto) % (1.0-10.0) Eosinophils (%) (Auto) % (0.0-3.0) Basophils (%) (Auto) % (0.0-2.0) Differential Total Cells Counted 100 Neutrophils % (Manual) 82 % (45-75) H Lymphocytes % (Manual) 3 % (20-45) L Monocytes % (Manual) 1 % (1-10) Eosinophils % (Manual) 0 % (0-3) Basophils % (Manual) 0 % (0-2) Band Neutrophils 14 % (0-8) H Platelet Estimate Adequate Platelet Morphology Normal Hypochromasia 1+ Anisocytosis 1+ Sodium Level 140 MMOL/L (136-145) Potassium Level 4.9 MMOL/L (3.5-5.1) Chloride Level 107 MMOL/L (98-107) Carbon Dioxide Level 21 MMOL/L (21-32) Anion Gap 12 mmol/L (5-15) Blood Urea Nitrogen 142 mg/dL (7-18) H Creatinine 3.0 MG/DL (0.55-1.30) H Estimat Glomerular Filtration Rate 19.8 mL/min (>60) Glucose Level 107 MG/DL (74-106) H Calcium Level 7.7 MG/DL (8.5-10.1) L Total Bilirubin 0.4 MG/DL (0.2-1.0) Aspartate Amino Transf (AST/SGOT) 21 U/L (15-37) Alanine Aminotransferase (ALT/SGPT) 22 U/L (12-78) Alkaline Phosphatase 234 U/L (46-116) H Total Protein 4.6 G/DL (6.4-8.2) L Albumin 0.8 G/DL (3.4-5.0) L Globulin 3.8 g/dL Albumin/Globulin Ratio 0.2 (1.0-2.7) L Plan Problems: (1) Pneumonia (2) Hypoxia (3) Sepsis Assessment & Plan: respiratory insufficiency prolonged ventilatory support failed weaning trials weaning vent as much as possible anticipate prolong vent support trach indicated and recommended will obtain consent plan for trach as able to wean thank you cont weaning will follow with recs s/p trach wean sedation wean vent no active bleeding noted h/h noted trend labs worsening prognosis guarded peg 09/08 cont tf worsening overall wean pressors Pt deconditioned and presented on admission with multiple Pressure Injuries , Generalized edema. Weeping edema bilat upper extremities and and trunk.Large Purpura ventral R forearm. Unstageable Pressure Injury R elbow(L)5cm x (W)5cm. Base of wound is 100% conrad slough. Edges erythematous but adherent to base of wound. Periwound is indurated and erythematous. No elevation in skin temp noted. DTPI L elbow. Base of Pressure injury is purpuric and indurated.(L)2cm x (W)1.8cm. Penile torsion noted. Irregular shaped- Full thickness Ulcer at base of shaft (L)4cm x (W)4cm. Base of wound is 100% slough . Marginal erythema along edges. No exudate noted. DTPI Sacrum. Base of Pressure Injury is Purpuric at [place] cleft and Sacrococcygeal areas with surrounding Maroon borders. Non-blanchable erythema without induration R and L ischial tuberosities. DTPI L Heel and plantar aspect(L)9cm x (W)5cm. Base of Pressure injury is Is maroon and fluctuant. DTPI R Heel and Plantar aspect of Heel(L)8.5cm x (W)8cm. Base of Pressure injury is maroon with fluctuance. Tx.Plan:Cleanse wound R Elbow with Saline. Apply TheraHoney.Apply Cavilon Skin Barrier Periwound. Cover with Optifoam Drsg. Change Daily and prn. Apply Cavilon Skin Barrier to L Elbow. Cover with Optifoam drsg. Change every 7 days and prn. Cleanse Ulcer at Base of Shaft of Penis with Saline. Apply Triad Paste Twice Daily and prn. Apply Moisture Barrier Paste to Sacrum. Cover with Optifoam drsg. Change every 3 days and prn. Apply Moisture Barrier Paste to R and L Ischial tuberosities. Cover each site with Optifoam drsgs. Change every 3 Days and prn. Apply Cavilon Skin Barrier to both heels. Cover each heel with Optifoam drsgs. Change every 7 days and prn. Elevate both Upper extremities with Pillow. Reposition at least every 2hours or as tolerated. Off-load heels with pillows. APM/EUNICE Mattress overlay. (4) UTI (urinary tract infection) (5) Pneumonia (6) AMS (altered mental status) JosseIsaias Sep 19, 2020 15:53
--- NOTE | 2020-09-19 18:13 | NUR ---
NURSE NOTES: Called and spoke with Dr. Gilmore and got order for Levo due to b/p still low.
[2020-09-19] MEDS: Norepinephrine 4mg/NS Premix 246 ML IV SCH ×2 (18:15→21:40)
--- NOTE | 2020-09-19 18:43 | NUR ---
NURSE NOTES: Started on Levo. Will cont. to monitor.
--- NOTE | 2020-09-19 19:22 | NUR ---
NURSE HAND-OFF REPORT: Transfer from [facility] here to ICU due to low b/p. On Dopa drip. And now on Levo drip. Latest Vital Signs: Temperature 96.8 , Pulse 125 , B/P 67 /48 , Respiratory Rate 32 , O2 SAT 95 , Mechanical Ventilator, O2 Flow Rate 70.0 . Vital Sign Comment: low b/p EKG Rhythm: Sinus Tachycardia Rhythm change?: N Notified?: N -Dr. Virgil KURTZ Response: Message left await call Latest José Fall Score: 95 Fall Risk: High Risk Safety Measures: Call light Within Reach, Bed Alarm Zone 1, Side Rails Side Rails x3, Bed position Low and Locked. Fall Precautions: Yellow Socks Yellow Gown Door Sign Patient Fall Education Report given to Vaughn ARGUELLES.
[2020-09-19] MEDS: Dyna-Hex 2% Top Sol 2oz TOPIC SCH (20:00)
--- NOTE | 2020-09-19 20:00 | NUR ---
NURSE NOTES: Received patient from JANIE Mendes under the care of Dr. kay for the admitting dx. of hypoxia, sepsis, PNA, and UTI. Patient noted allergy to Vancomycin and full code status. On contact isolation, observed and maintained at all times. Patient is obtunded. Patient on vent and tolerated settings well with saturation >96%. Will continue with current plan of care.
[2020-09-19] MEDS: Heparin 5000 units/ml inj SUBQ SCH (21:00)
--- NOTE | 2020-09-19 22:00 | NUR ---
NURSE NOTES: Patient remains on vasopressor drips. Noted hypotension and tachycardia on the city solicitor. Kept clean and dry at all times. Will continue to monitor.
[2020-09-20] VITALS (21 sets, daily range): BP systolic 32–67; BP diastolic 11–52
--- NOTE | 2020-09-20 00:11 | NUR ---
NURSE NOTES: Patients granddaughter Ruth Green called the unit to inform primary nurse that the family has requested that patient be placed DNR. POLST was prepared and families wishes verified by airport shuttle driver. Called and left message to primary doctor regarding this update.
[2020-09-20] MEDS: Norepinephrine 4mg/NS Premix 246 ML IV SCH ×6 (00:17→11:23)
--- NOTE | 2020-09-20 01:00 | NUR ---
NURSE NOTES: Dr. Gilmore called back for verbal orders to place patient DNR per families wishes.
--- NOTE | 2020-09-20 02:00 | NUR ---
NURSE NOTES: Patient remains on IV vasopressor drips. Noted trending down of HR and BP. Will continue to monitor.
[2020-09-20] MEDS: DOPamine 400mg/250ml 250 ML IV SCH ×2 (02:02→07:16)
--- NOTE | 2020-09-20 04:00 | NUR ---
NURSE NOTES: Vitals continue to trend down. O2 saturation continues to be >97%. Continue on vasopressor drips.
--- NOTE | 2020-09-20 06:00 | NUR ---
NURSE NOTES: Vitals continue to trend down. O2 saturation continues to be >97%. Continue on vasopressor drips.
[2020-09-20 07:01] LABS: HEMATOCRIT 38.4 % (42.0-52.0); HEMOGLOBIN 12.2 G/DL (14.2-18.0); MEAN CORPUSCULAR VOLUME 97 FL (80-99); PLATELET COUNT 33 K/UL (150-450); RED BLOOD COUNT 3.94 M/UL (4.70-6.10); RED CELL DISTRIBUTION WIDTH 15.5 % (11.6-14.8)
[2020-09-20 07:13] LABS: WHITE BLOOD COUNT 28.1 K/UL (4.8-10.8)
--- NOTE | 2020-09-20 07:30 | NUR ---
NURSE HAND-OFF REPORT: Latest Vital Signs: Temperature 96.8 , Pulse 72 , B/P 56 /24 , Respiratory Rate 29 , O2 SAT 96 , Mechanical Ventilator, O2 Flow Rate 70.0 . Vital Sign Comment: Hypotension EKG Rhythm: Atrial Fibrillation Rhythm change?: N Notified?: N -Dr. Virgil KURTZ Response: Message left await call Latest José Fall Score: 95 Fall Risk: High Risk Safety Measures: Call light Within Reach, Bed Alarm Zone 1, Side Rails Side Rails x3, Bed position Low and Locked. Fall Precautions: Yellow Socks Yellow Gown Door Sign Patient Fall Education Report given to BLANE Garcia.
--- NOTE | 2020-09-20 08:00 | NUR ---
NURSE NOTES: LATE ENTRY: RECEIVED REPORT FROM JORGE. ARGUELLES. SB- SR ON MONITOR SBP 30'S. PT IN BED. OPENS EYES. SLUGGISH 3MM. AGONAL GASPS NOTED. SHILEY 8, VENT SETTINGS AC 28, VT 550, FI02 100%, PEEP 10. SATING 90'S. PT TUBE FEED ON HOLD. ASPIRATION PRECAUTIONS. SUPINE FOR BP CONTROL. PT INCONTINENT, MOISTURE RELATED SKIN IRRITATION AROUND SCROTAL AREA NOTED. WOUNDS-SEE ASSESSMENT. WEEPING, PITTING EDEMA +2-3 EXTREMITIES. SKIN ON PALMS AND FEET MAROON AND CYANOTIC. PT COLD TO TOUCH. ABDOMEN FLAT. BOWEL SOUNDS HYPOACTIVE. RECTAL TUBE LEAKING, AROUND ANAL AREA, WILL CLEAN PT. IV ACCESS WILL D/C PERIPHERAL IVS. MARY PICC. RUNNING LEVOPHED AT 30MCG/HR, DOPAMINE AT 20MG/KG/HR. UNABLE TO OBTAIN CORE TEMP ON PT. SIDE RAILSX2. BED LOCKED AND IN LOWEST POSITION. WILL CONTINUE TO MONITOR PT.
[2020-09-20 08:16] LABS: CALCIUM 8.8 MG/DL (8.5-10.1); CREATININE 2.1 MG/DL (0.55-1.30); POTASSIUM 5.9 MMOL/L (3.5-5.1)
[2020-09-20] MEDS: Heparin 5000 units/ml inj SUBQ SCH (08:18)
[2020-09-20] MEDS: Amiodarone 200mg tab NG SCH (08:19)
[2020-09-20] MEDS: Fluconazole 100mg tab NG SCH (08:19)
[2020-09-20] MEDS ORDERED: Phenylephrine 50 MG in D5W 245 ML IV SCH (09:00)
--- NOTE | 2020-09-20 09:41 | Pulmonology Progress Note ---
Subjective ROS Limited/Unobtainable: Yes Constitutional: Denies: fever Gastrointestinal/Abdominal: Reports: other - will have NG tube placement today Allergies: Coded Allergies: VANCOMYCIN (Verified Allergy, Severe, hive, 08/27/20) All Systems: reviewed and negative except above Subjective care noted/ d/w nursing/ now DNR on vent/ remains hypoxemic noted acidemia poor LOC profoundly hypotensive d/w nursing at bedside Objective Last 24 Hour Vital Signs Date Time Temp Pulse Resp B/P (MAP) Pulse Ox O2 Delivery O2 Flow Rate FiO2 09/20/20 08:52 71 28 39/21 (27) 98 09/20/20 08:45 71 27 64/27 (39) 97 09/20/20 08:30 70 29 48/15 (26) 96 09/20/20 08:15 71 27 39/12 (21) 96 09/20/20 08:00 67 30 32/12 (19) 94 09/20/20 07:17 56/24 09/20/20 07:16 56/24 09/20/20 04:59 56/24 09/20/20 04:00 Mechanical Ventilator 09/20/20 04:00 85 09/20/20 04:00 72 09/20/20 04:00 83 29 38/22 (27) 96 09/20/20 02:02 54/15 09/20/20 02:01 56/15 09/20/20 02:00 32/17 09/20/20 01:25 30/13 09/20/20 01:16 118 31 100 09/20/20 00:25 59/17 09/20/20 00:17 59/17 09/20/20 00:00 Mechanical Ventilator 09/20/20 00:00 85 09/20/20 00:00 103 20 59/17 (31) 95 09/20/20 00:00 123 09/19/20 23:25 64/17 09/19/20 22:25 84/42 09/19/20 21:40 73/17 09/19/20 21:25 77/16 09/19/20 20:00 115 20 60/44 (49) 93 09/19/20 20:00 132 09/19/20 20:00 Mechanical Ventilator 09/19/20 20:00 85 09/19/20 19:20 120 31 100 09/19/20 18:15 67/44 09/19/20 18:00 86 24 57/11 (26) 97 86 09/19/20 18:00 57/11 09/19/20 17:00 85 21 67/36 (46) 97 85 09/19/20 17:00 67/36 09/19/20 16:00 85 28 67/38 (48) 96 85 09/19/20 16:00 125 09/19/20 16:00 67/38 09/19/20 16:00 85 09/19/20 16:00 Mechanical Ventilator 09/19/20 15:05 87 32 60 09/19/20 15:00 67/48 09/19/20 15:00 85 28 67/48 (54) 95 09/19/20 14:33 54/40 09/19/20 13:48 88 28 66/42 (50) 91 09/19/20 12:30 96.8 86 28 77/48 (58) 95 09/19/20 12:30 77/48 09/19/20 12:00 85 09/19/20 12:00 90 09/19/20 12:00 90 09/19/20 12:00 Mechanical Ventilator 09/19/20 11:15 80 09/19/20 11:15 85 26 78/41 (53) 91 09/19/20 11:15 78/41 09/19/20 11:00 86 28 69/33 (45) 93 09/19/20 11:00 69/33 09/19/20 10:42 72/45 09/19/20 10:42 87 28 72/45 (54) 93 Intake and Output 09/19/20 09/20/20 19:00 07:00 Intake Total 160 ml 812.545 ml Balance 160 ml 812.545 ml IV Total 812.545 ml Tube Feeding 160 ml # Voids 1 Objective WDWN NAD intubated reduced breath sounds bilaterally with scattered rhonchi worse [id number] without MRG NABS nontender no distention; feeding tube no CCE nonfocal trach in place poorly responsive obtunded Microbiology Date/Time Source Procedure Growth Status 09/18/20 21:15 Blood Blood Culture - Preliminary Resulted Laboratory Tests 09/20/20 05:42: White Blood Count 28.1*H, Red Blood Count 3.94L, Hemoglobin 12.2L, Hematocrit 38.4#L, Mean Corpuscular Volume 97, Mean Corpuscular Hemoglobin 31.0, Mean Corpuscular Hemoglobin Concent 31.8L, Red Cell Distribution Width 15.5H, Platelet Count 33L, Mean Platelet Volume 16.3H, Neutrophils (%) (Auto) , Lymphocytes (%) (Auto) , Monocytes (%) (Auto) , Eosinophils (%) (Auto) , Basophils (%) (Auto) , Differential Total Cells Counted 100, Neutrophils % (Manual) 77H, Lymphocytes % (Manual) 9L, Monocytes % (Manual) 2, Eosinophils % (Manual) 0, Basophils % (Manual) 0, Band Neutrophils 12H, Nucleated Red Blood Cells 1, Toxic Granulation 1+, Platelet Estimate DecreasedL, Platelet Morphology , Giant Platelets Occasional, Polychromasia 1+, Anisocytosis 1+, Sodium Level 1 37, Potassium Level 5.9H, Chloride Level 103, Carbon Dioxide Level 16L, Anion Gap 19H, Blood Urea Nitrogen 102H, Creatinine 2.1H, Estimat Glomerular Fi ltration Rate 30.0, Glucose Level 72L, Calcium Level 8.8 Current Medications Medications (Trade) Dose Ordered Sig/Javon Route PRN Reason Start Time Stop Time Status Last Admin Dose Admin Acetaminophen (Tylenol) 650 mg Q6H PRN GT For Headache 09/16/20 04:30 10/16/20 04:29 Amiodarone HCl (Cordarone) 200 mg DAILY NG 09/04/20 09:00 11/15/20 08:59 09/20/20 08:19 Chlorhexidine Gluconate (Kathryn-Hex 2%) 1 applic DAILY@2000 TOPIC 09/18/20 20:00 12/17/20 19:59 09/19/20 20:00 Dopamine HCl/ Dextrose 250 ml @ 0 mls/hr Q24H IV 09/17/20 21:45 09/20/20 21:44 09/20/20 07:16 Fluconazole (Diflucan) 100 mg DAILY NG 09/15/20 10:00 09/22/20 09:59 09/20/20 08:19 Heparin Sodium (Porcine) (Heparin 5000 units/ml) 5,000 units EVERY 12 HOURS SUBQ 09/19/20 09:00 11/03/20 08:59 Lansoprazole (Prevacid) 30 mg DAILY NG 08/30/20 09:00 09/29/20 08:59 09/20/20 08:18 Levofloxacin (Levaquin) 250 mg Q48H ORAL 09/21/20 09:00 09/28/20 08:59 Linezolid 300 ml @ 300 mls/hr Q12HR IVPB 09/20/20 09:00 09/27/20 08:59 Norepinephrine Bitartrate 246 ml @ 7.5 mls/hr Q24H IV 09/19/20 18:15 09/22/20 18:14 09/20/20 07:17 Phenylephrine HCl 50 mg/Dextrose 250 ml @ 0 mls/hr Q24H IV 09/20/20 09:00 09/23/20 09:00 Vasopressin 100 units/Sodium Chloride 100 ml @ 0 mls/hr Q24H PRN IV For hypotension 09/20/20 10:00 09/23/20 09:59 Assessment/Plan Assessment/Plan ASSESSMENT: chronic encephalopathy, dementia, diffuse infiltrates, elevated BNP hypertension, recurrent falls, and urinary tract infection, hypoxemia, probable aspiration pneumonia. acute respiratory failure hypoxemic s/p trach; chronic CO2 retention, hypotension and shock PLAN ICU transfer noted recommend withdrawal of care trach care GT DNR nutrition DVT prophylaxis skin care position change prognosis very poor for improvement terminal care medications/laboratory data/nursing notes/ICU care reviewed in detail note reviewed and edited care discussed with RN and RT ICU time spent >40 minutes Eriberto Valencia MD Sep 20, 2020 09:41
--- NOTE | 2020-09-20 09:50 | General Progress Note ---
Subjective ROS Limited/Unobtainable: No Constitutional: Reports: malaise, weakness HEENT: Reports: no symptoms Cardiovascular: Reports: no symptoms Respiratory: Reports: shortness of breath Gastrointestinal/Abdominal: Reports: difficulty swallowing Genitourinary: Reports: no symptoms Neurologic/Psychiatric: Reports: pre-existing deficit Endocrine: Reports: no symptoms Hematologic/Lymphatic: Reports: anemia Allergies: Coded Allergies: VANCOMYCIN (Verified Allergy, Severe, hive, 08/27/20) All Systems: reviewed and negative except above Subjective worsening hypotension and shock. on multiple pressors. in trendelenberg. poorly responsive. on multiple iv abx. +blood cultures noted. Objective Last 24 Hour Vital Signs Date Time Temp Pulse Resp B/P (MAP) Pulse Ox O2 Delivery O2 Flow Rate FiO2 09/20/20 08:52 71 28 39/21 (27) 98 09/20/20 08:45 71 27 64/27 (39) 97 09/20/20 08:30 70 29 48/15 (26) 96 09/20/20 08:15 71 27 39/12 (21) 96 09/20/20 08:00 67 30 32/12 (19) 94 09/20/20 07:17 56/24 09/20/20 07:16 56/24 09/20/20 04:59 56/24 09/20/20 04:00 Mechanical Ventilator 09/20/20 04:00 85 09/20/20 04:00 72 09/20/20 04:00 83 29 38/22 (27) 96 09/20/20 02:02 54/15 09/20/20 02:01 56/15 09/20/20 02:00 32/17 09/20/20 01:25 30/13 09/20/20 01:16 118 31 100 09/20/20 00:25 59/17 09/20/20 00:17 59/17 09/20/20 00:00 Mechanical Ventilator 09/20/20 00:00 85 09/20/20 00:00 103 20 59/17 (31) 95 09/20/20 00:00 123 09/19/20 23:25 64/17 09/19/20 22:25 84/42 09/19/20 21:40 73/17 09/19/20 21:25 77/16 09/19/20 20:00 115 20 60/44 (49) 93 09/19/20 20:00 132 09/19/20 20:00 Mechanical Ventilator 09/19/20 20:00 85 09/19/20 19:20 120 31 100 09/19/20 18:15 67/44 09/19/20 18:00 86 24 57/11 (26) 97 86 09/19/20 18:00 57/11 09/19/20 17:00 85 21 67/36 (46) 97 85 09/19/20 17:00 67/36 09/19/20 16:00 85 28 67/38 (48) 96 85 09/19/20 16:00 125 09/19/20 16:00 67/38 09/19/20 16:00 85 09/19/20 16:00 Mechanical Ventilator 09/19/20 15:05 87 32 60 09/19/20 15:00 67/48 09/19/20 15:00 85 28 67/48 (54) 95 09/19/20 14:33 54/40 09/19/20 13:48 88 28 66/42 (50) 91 09/19/20 12:30 96.8 86 28 77/48 (58) 95 09/19/20 12:30 77/48 09/19/20 12:00 85 09/19/20 12:00 90 09/19/20 12:00 90 09/19/20 12:00 Mechanical Ventilator 09/19/20 11:15 80 09/19/20 11:15 85 26 78/41 (53) 91 09/19/20 11:15 78/41 09/19/20 11:00 86 28 69/33 (45) 93 09/19/20 11:00 69/33 09/19/20 10:42 72/45 09/19/20 10:42 87 28 72/45 (54) 93 Intake and Output 09/19/20 09/20/20 19:00 07:00 Intake Total 160 ml 812.545 ml Balance 160 ml 812.545 ml IV Total 812.545 ml Tube Feeding 160 ml # Voids 1 Laboratory Tests 09/20/20 05:42: White Blood Count 28.1*H, Red Blood Count 3.94L, Hemoglobin 12.2L, Hematocrit 38.4#L, Mean Corpuscular Volume 97, Mean Corpuscular Hemoglobin 31.0, Mean Corpuscular Hemoglobin Concent 31.8L, Red Cell Distribution Width 15.5H, Platelet Count 33L, Mean Platelet Volume 16.3H, Neutrophils (%) (Auto) , Lymphocytes (%) (Auto) , Monocytes (%) (Auto) , Eosinophils (%) (Auto) , Basophils (%) (Auto) , Differential Total Cells Counted 100, Neutrophils % (Manual) 77H, Lymphocytes % (Manual) 9L, Monocytes % (Manual) 2, Eosinophils % (Manual) 0, Basophils % (Manual) 0, Band Neutrophils 12H, Nucleated Red Blood Cells 1, Toxic Granulation 1+, Platelet Estimate DecreasedL, Platelet Morphology , Giant Platelets Occasional, Polychromasia 1+, Anisocytosis 1+, Sodium Level 137, Potassium Level 5.9H, Chloride Level 103, Carbon Dioxide Level 16L, Anion Gap 19H, Blood Urea Nitrogen 102H, Creatinine 2.1H, Estimat Glomerular Filtration Rate 30.0, Glucose Level 72L, Calcium Level 8.8 Height (Feet): 5 Height (Inches): 4.00 Weight (Pounds): 147 Objective General Appearance: WD/WN, confused, thin. on the vent EENT: normal ENT inspection Neck: non-tender, normal alignment, supple. trach midline Cardiovascular: normal rate, regular rhythm Respiratory/Chest: chest wall non-tender, lungs clear, normal breath sounds, no respiratory distress, no accessory muscle use Abdomen: normal bowel sounds, non tender, soft, no organomegaly Edema: no edema noted Arm (L), no edema noted Arm (R) Assessment/Plan Problem List: (1) Pneumonia ICD Codes: J18.9 - Pneumonia, unspecified organism SNOMED: 485183644 (2) Hypoxia ICD Codes: R09.02 - Hypoxemia SNOMED: 808149360 (3) AMS (altered mental status) ICD Codes: R41.82 - Altered mental status, unspecified SNOMED: 728095354 (4) UTI (urinary tract infection) ICD Codes: N39.0 - Urinary tract infection, site not specified SNOMED: 74005767 (5) Sepsis ICD Codes: A41.9 - Sepsis, unspecified organism SNOMED: 06288358 Status: stable, not improved Assessment/Plan: vent support trach care resp rx/suctioning no wean abx per ID follow up positive blood cultures monitor h/h transfuse as needed added 3rd pressors monitor labs/lytes replace as needes dvt/stress ulcer prophylaxis turn q2 poor prognosis family agrees to no cpr d/w grand dtr x 10 mins Chavez Gilmore MD Sep 20, 2020 09:50
[2020-09-20] MEDS ORDERED: Vasopressin 100 UNITS in NS 95 ML IV PRN (10:00)
--- NOTE | 2020-09-20 10:20 | NUR ---
NURSE NOTES: CHANGING LEVOPHED BAG FOR BLOOD PRESSURE CONTROL BP: 51/34, HR 71.
--- NOTE | 2020-09-20 11:49 | Surgery Progress Note ---
Surgery Progress Note Subjective Procedure Performed trach Additional Comments worsening family at bedside dnr prognosis guarded Objective Last 24 Hour Vital Signs Date Time Temp Pulse Resp B/P (MAP) Pulse Ox O2 Delivery O2 Flow Rate FiO2 09/20/20 11:23 50/30 09/20/20 10:30 33/21 09/20/20 10:26 61 50/22 09/20/20 08:52 71 28 39/21 (27) 98 09/20/20 08:45 71 27 64/27 (39) 97 09/20/20 08:30 70 29 48/15 (26) 96 09/20/20 08:15 71 27 39/12 (21) 96 09/20/20 08:00 67 30 32/12 (19) 94 09/20/20 08:00 67 09/20/20 08:00 100 09/20/20 08:00 Mechanical Ventilator 09/20/20 07:17 56/24 09/20/20 07:16 56/24 09/20/20 04:59 56/24 09/20/20 04:00 Mechanical Ventilator 09/20/20 04:00 85 09/20/20 04:00 72 09/20/20 04:00 83 29 38/22 (27) 96 09/20/20 02:02 54/15 09/20/20 02:01 56/15 09/20/20 02:00 32/17 09/20/20 01:25 30/13 09/20/20 01:16 118 31 100 09/20/20 00:25 59/17 09/20/20 00:17 59/17 09/20/20 00:00 Mechanical Ventilator 09/20/20 00:00 85 09/20/20 00:00 103 20 59/17 (31) 95 09/20/20 00:00 123 09/19/20 23:25 64/17 09/19/20 22:25 84/42 09/19/20 21:40 73/17 09/19/20 21:25 77/16 09/19/20 20:00 115 20 60/44 (49) 93 09/19/20 20:00 132 09/19/20 20:00 Mechanical Ventilator 09/19/20 20:00 85 09/19/20 19:20 120 31 100 09/19/20 18:15 67/44 09/19/20 18:00 86 24 57/11 (26) 97 86 09/19/20 18:00 57/11 09/19/20 17:00 85 21 67/36 (46) 97 85 09/19/20 17:00 67/36 09/19/20 16:00 85 28 67/38 (48) 96 85 09/19/20 16:00 125 09/19/20 16:00 67/38 09/19/20 16:00 85 09/19/20 16:00 Mechanical Ventilator 09/19/20 15:05 87 32 60 09/19/20 15:00 67/48 09/19/20 15:00 85 28 67/48 (54) 95 09/19/20 14:33 54/40 09/19/20 13:48 88 28 66/42 (50) 91 09/19/20 12:30 96.8 86 28 77/48 (58) 95 09/19/20 12:30 77/48 09/19/20 12:00 85 09/19/20 12:00 90 09/19/20 12:00 90 09/19/20 12:00 Mechanical Ventilator I&O Intake and Output 09/19/20 09/20/20 19:00 07:00 Intake Total 160 ml 812.545 ml Balance 160 ml 812.545 ml IV Total 812.545 ml Tube Feeding 160 ml # Voids 1 Cardiovascular: RSR Respiratory: decreased breath sounds Abdomen: soft, non-tender, present bowel sounds, non-distended Extremities: no tenderness, no cyanosis Laboratory Tests Test 09/20/20 05:42 White Blood Count 28.1 K/UL (4.8-10.8) *H Red Blood Count 3.94 M/UL (4.70-6.10) L Hemoglobin 12.2 G/DL (14.2-18.0) L Hematocrit 38.4 % (42.0-52.0) #L Mean Corpuscular Volume 97 FL (80-99) Mean Corpuscular Hemoglobin 31.0 PG (27.0-31.0) Mean Corpuscular Hemoglobin Concent 31.8 G/DL (32.0-36.0) L Red Cell Distribution Width 15.5 % (11.6-14.8) H Platelet Count 33 K/UL (150-450) L Mean Platelet Volume 16.3 FL (6.5-10.1) H Neutrophils (%) (Auto) % (45.0-75.0) Lymphocytes (%) (Auto) % (20.0-45.0) Monocytes (%) (Auto) % (1.0-10.0) Eosinophils (%) (Auto) % (0.0-3.0) Basophils (%) (Auto) % (0.0-2.0) Differential Total Cells Counted 100 Neutrophils % (Manual) 77 % (45-75) H Lymphocytes % (Manual) 9 % (20-45) L Monocytes % (Manual) 2 % (1-10) Eosinophils % (Manual) 0 % (0-3) Basophils % (Manual) 0 % (0-2) Band Neutrophils 12 % (0-8) H Nucleated Red Blood Cells 1 /100 WBC Toxic Granulation 1+ Platelet Estimate Decreased L Platelet Morphology Giant Platelets Occasional Polychromasia 1+ Anisocytosis 1+ Sodium Level 137 MMOL/L (136-145) Potassium Level 5.9 MMOL/L (3.5-5.1) H Chloride Level 103 MMOL/L (98-107) Carbon Dioxide Level 16 MMOL/L (21-32) L Anion Gap 19 mmol/L (5-15) H Blood Urea Nitrogen 102 mg/dL (7-18) H Creatinine 2.1 MG/DL (0.55-1.30) H Estimat Glomerular Filtration Rate 30.0 mL/min (>60) Glucose Level 72 MG/DL (74-106) L Calcium Level 8.8 MG/DL (8.5-10.1) Plan Problems: (1) Pneumonia (2) Hypoxia (3) Sepsis Assessment & Plan: respiratory insufficiency prolonged ventilatory support failed weaning trials weaning vent as much as possible anticipate prolong vent support trach indicated and recommended will obtain consent plan for trach as able to wean thank you cont weaning will follow with recs s/p trach wean sedation wean vent no active bleeding noted h/h noted trend labs worsening prognosis guarded peg 09/08 cont tf worsening overall wean pressors Pt deconditioned and presented on admission with multiple Pressure Injuries , Generalized edema. Weeping edema bilat upper extremities and and trunk.Large Purpura ventral R forearm. Unstageable Pressure Injury R elbow(L)5cm x (W)5cm. Base of wound is 100% conrad slough. Edges erythematous but adherent to base of wound. Periwound is indurated and erythematous. No elevation in skin temp noted. DTPI L elbow. Base of Pressure injury is purpuric and indurated.(L)2cm x (W)1.8cm. Penile torsion noted. Irregular shaped- Full thickness Ulcer at base of shaft (L)4cm x (W)4cm. Base of wound is 100% slough . Marginal erythema along edges. No exudate noted. DTPI Sacrum. Base of Pressure Injury is Purpuric at cleft and Sac rococcygeal areas with surrounding Maroon borders. Non-blanchable erythema without induration R and L ischial tuberosities. DTPI L Heel and plantar aspect(L)9cm x (W)5cm. Base of Pressure injury is Is maroon and fluctuant. DTPI R Heel and Plantar aspect of Heel(L)8.5cm x (W)8cm. Base of Pressure injury is maroon with fluctuance. Tx.Plan:Cleanse wound R Elbow with Saline. Apply TheraHoney.Apply Cavilon Skin Barrier Periwound. Cover with Optifoam Drsg. Change Daily and prn. Apply Cavilon Skin Barrier to L Elbow. Cover with Optifoam drsg. Change every 7 days and prn. Cleanse Ulcer at Base of Shaft of Penis with Saline. Apply Triad Paste Twice Daily and prn. Apply Moisture Barrier Paste to Sacrum. Cover with Optifoam drsg. Change every 3 days and prn. Apply Moisture Barrier Paste to R and L Ischial tuberosities. Cover each site with Optifoam drsgs. Change every 3 Days and prn. Apply Cavilon Skin Barrier to both heels. Cover each heel with Optifoam drsgs. Change every 7 days and prn. Elevate both Upper extremities with Pillow. Reposition at least every 2hours or as tolerated. Off-load heels with pillows. APM/EUNICE Mattress overlay. (4) UTI (urinary tract infection) (5) Pneumonia (6) AMS (altered mental status) Isaias Loaiza Sep 20, 2020 11:49
--- NOTE | 2020-09-20 11:50 | NUR ---
NURSE NOTES: FAMILY HERE TO SEE PT AFTER SPEAKING WITH MD. OGLESBY ABOUT CONDITION.
--- NOTE | 2020-09-20 12:09 | NUR ---
NURSE NOTES: per family request no longer want pressors or additional mesaures, want pt to remain on ventilator. spoke with md lei for d/c pressors and family at bedside requesting natural passing. pt obtunded. order to stop pressor, can be moved out of icu for family and comfort.
--- NOTE | 2020-09-20 12:35 | NUR ---
NURSE NOTES: pressors off. vent remains on. pt allowed natural . family does not want any additional meds or interventions except to remain on venting and to be by pt side while passing. granddaughter and daughter present.
--- NOTE | 2020-09-20 12:37 | NUR ---
TRANSFER TO FLOOR: Patient transferred to [facility], per . Report given to . Belongings and medications given to . Family and or S/O informed of transfer. pt at bedside. Addendum: 09/20/20 at 1347 by Radha Villafana RN REPORT TO PHYLLIS. ALL QUESTIONS ANSWERED. SBAR USED
--- NOTE | 2020-09-20 12:37 | NUR ---
NURSE NOTES: Received patient from ICU,on ventilator, for comfort care ,with family Report received from jennifer Garcia comfortable and family Addendum: 09/20/20 at 1617 by Emerita Cotton RN No infusions,with double lumen PICC right upper arm,heplock,rectal tube removed
--- NOTE | 2020-09-20 14:05 | NUR ---
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 Wang MOTA MD pronounced at 1414
--- NOTE | 2020-09-20 15:09 | Emergency Room Report ---
Physical Exam Vital Signs Date Time Temp Pulse Resp B/P (MAP) Pulse Ox O2 Delivery O2 Flow Rate FiO2 09/16/20 07:06 98 28 65 09/16/20 08:00 Mechanical Ventilator 09/16/20 08:00 97.5 96/56 (69) 28 Medical Decision Making Diagnostic Impression: Primary Impression: Hypoxia Additional Impressions: AMS (altered mental status) Sepsis UTI (urinary tract infection) Pneumonia ER Course Called the patient bedside to pronounce. 89-year-old male trach and vent dependent. Reportedly lost pulses 15 minutes prior to my arrival. Patient had no palpable pulse, no audible spontaneous breathing. No coronary reflex. No audible heart sounds. Pronounced at 1415. Family at bedside. Answered their questions. Admitting doctor notified. Last Vital Signs Date Time Temp Pulse Resp B/P (MAP) Pulse Ox O2 Delivery O2 Flow Rate FiO2 09/20/20 12:15 66 25 39/15 (23) 97 09/20/20 12:00 100 09/20/20 12:00 Mechanical Ventilator 09/19/20 12:30 96.8 Disposition: Condition: Referrals: NON PHYSICIAN (PCP) Tai Piña MD Sep 20, 2020 15:09
[2020-09-20] MEDS ORDERED: NS 275ml ONE ×2 (15:17→15:44)
--- NOTE | 2020-09-20 15:30 | NUR ---
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
--- NOTE | 2020-09-20 15:57 | General Progress Note ---
Subjective Allergies: Coded Allergies: VANCOMYCIN (Verified Allergy, Severe, hive, 08/27/20) Subjective seen in ICU prior to transfer decision in change to comfort measures noted Objective Last 24 Hour Vital Signs Date Time Temp Pulse Resp B/P (MAP) Pulse Ox O2 Delivery O2 Flow Rate FiO2 09/20/20 12:15 66 25 39/15 (23) 97 09/20/20 12:06 35/12 09/20/20 12:00 67 24 35/12 (20) 98 09/20/20 12:00 100 09/20/20 12:00 67 09/20/20 12:00 Mechanical Ventilator 09/20/20 11:45 67 26 53/24 (34) 98 09/20/20 11:30 67 24 65/52 (56) 99 09/20/20 11:23 50/30 09/20/20 11:15 68 24 35/11 (19) 99 09/20/20 11:00 41/20 09/20/20 11:00 67 22 41/20 (27) 98 09/20/20 10:45 67 21 33/14 (20) 97 09/20/20 10:30 67 12 34/12 (19) 96 09/20/20 10:30 33/21 09/20/20 10:26 61 50/22 09/20/20 10:15 62 23 33/16 (22) 92 09/20/20 10:07 63 25 67/31 (43) 96 09/20/20 10:00 68 27 96 09/20/20 10:00 51/34 09/20/20 09:45 69 24 51/34 (40) 97 09/20/20 09:35 69 29 50/20 (30) 97 09/20/20 09:30 68 26 97 09/20/20 09:15 71 27 53/21 (32) 98 09/20/20 09:00 34/16 09/20/20 09:00 71 27 34/16 (22) 96 09/20/20 08:54 71 29 100 09/20/20 08:52 71 28 39/21 (27) 98 09/20/20 08:45 71 27 64/27 (39) 97 09/20/20 08:30 70 29 48/15 (26) 96 09/20/20 08:15 71 27 39/12 (21) 96 09/20/20 08:00 67 30 32/12 (19) 94 09/20/20 08:00 67 09/20/20 08:00 100 09/20/20 08:00 Mechanical Ventilator 09/20/20 08:00 32/12 09/20/20 07:17 56/24 09/20/20 07:16 56/24 09/20/20 04:59 56/24 09/20/20 04:00 Mechanical Ventilator 09/20/20 04:00 85 09/20/20 04:00 72 09/20/20 04:00 83 29 38/22 (27) 96 09/20/20 02:02 54/15 09/20/20 02:01 56/15 09/20/20 02:00 32/17 09/20/20 01:25 30/13 09/20/20 01:16 118 31 100 09/20/20 00:25 59/17 09/20/20 00:17 59/17 09/20/20 00:00 Mechanical Ventilator 09/20/20 00:00 85 09/20/20 00:00 103 20 59/17 (31) 95 09/20/20 00:00 123 09/19/20 23:25 64/17 09/19/20 22:25 84/42 09/19/20 21:40 73/17 09/19/20 21:25 77/16 09/19/20 20:00 115 20 60/44 (49) 93 09/19/20 20:00 132 09/19/20 20:00 Mechanical Ventilator 09/19/20 20:00 85 09/19/20 19:20 120 31 100 09/19/20 18:15 67/44 09/19/20 18:00 86 24 57/11 (26) 97 86 09/19/20 18:00 57/11 09/19/20 17:00 85 21 67/36 (46) 97 85 09/19/20 17:00 67/36 09/19/20 16:00 85 28 67/38 (48) 96 85 09/19/20 16:00 125 09/19/20 16:00 67/38 09/19/20 16:00 85 09/19/20 16:00 Mechanical Ventilator Intake and Output 09/19/20 09/20/20 19:00 07:00 Intake Total 160 ml 812.545 ml Balance 160 ml 812.545 ml IV Total 812.545 ml Tube Feeding 160 ml # Voids 1 Laboratory Tests 09/20/20 05:42: White Blood Count 28.1*H, Red Blood Count 3.94L, Hemoglobin 12.2L, Hematocrit 38.4#L, Mean Corpuscular Volume 97, Mean Corpuscular Hemoglobin 31.0, Mean C orpuscular Hemoglobin Concent 31.8L, Red Cell Distribution Width 15.5H, Platelet Count 33L, Mean Platelet Volume 16.3H, Neutrophils (%) (Auto) , Lymphocytes (%) (Auto) , Monocytes (%) (Auto) , Eosinophils (%) (Auto) , Basophils (%) (Auto) , Differential Total Cells Counted 100, Neutrophils % (Manual) 77H, Lymphocytes % (Manual) 9L, Monocytes % (Manual) 2, Eosinophils % (Manual) 0, Basophils % ( Manual) 0, Band Neutrophils 12H, Nucleated Red Blood Cells 1, Toxic Granulation 1+, Platelet Estimate DecreasedL, Platelet Morphology , Giant Platelets Occasional, Polychromasia 1+, Anisocytosis 1+, Sodium Level 137, Potassium Level 5.9H, Chloride Level 103, Carbon Dioxide Level 16L, Anion Gap 19H, Blood Urea Nitrogen 102H, Creatinine 2.1H, Estimat Glomerular Filtration Rate 30.0, Glucose Level 72L, Calcium Level 8.8 Height (Feet): 5 Height (Inches): 4.00 Weight (Pounds): 147 Objective Elderly man unresponsive NCAT (+) trach appear comfortable being transferred to [facility] Assessment/Plan Status: stable, not improved Assessment/Plan: Assessment - Leukocytosis - Ascites, ? infected - shock - respiratory failure, s/p Trach - renal failure - Parox a fib - acute myocardial ischemia - PNA/sepsis - dysphagia - s/p PEG - elevated glucose - poor prognosis - approaching terminal Recommendations - agree with terminal care - will sign off - please call Arely Morales MD Sep 20, 2020 15:57
--- NOTE | 2020-09-21 14:39 | Discharge Summary ---
Discharge Summary Discharge Summary _ Charge summary DATE OF ADMISSION: 08/02/2020 DATE OF DISCHARGE: [] 09/20/2019 DISCHARGED BY: REASON FOR ADMISSION: [] 89 years old male with past medical history of hypertension, recurrent urinary tract infection, "falls, dementia, transferred from the [facility] facility due to shortness of breath. Patient was not able to provide any history given his mental status. Patient was recently hospitalized at outside hospital after a fall and urinary tract infection. He has been convalescing at the [facility] facility for several days and developed progressive worsening shortness of breath and transferred to emergency room where he required he required Venturi mask for hypoxemia. X chest x-ray showed right lower lobe pneumonia rapid COVID-19 was negative patient subsequently admitted for further management. CONSULTANTS: gas appliance servicer helper neurologist pulmonary Dr. Valencia ID specialist Dr. Christensen therapy GI specialist Dr. Wallace worm picker service desk specialist/oncologist surgery Dr. Loaiza psychiatrist HOSPITAL COURSE: [] Patient admitted and started on supplemental oxygen. Which titrated to keep pulse oximetry above 92%. Pulmonary toilet provided. Patient was follow-up with chest x-ray. Patient started on broad-spectrum antibiotics. Repeated draw rapid COVID-19 repeated COVID-19 by PCR was not detected as well. Influenza swab was negative. Blood cultures were negative. Urine culture revealed staph coag negative. And subsequently later revealed Michelle. Stool for C. difficile was negative and as a COVID-19 by PCR was repeated on 08 21 and still was negative. Rapid COVID-19 by 1222 was negative. Patient was follow-up with chest x-ray. Left sputum culture revealed still exacerbation precaution maintained. Last sputum culture revealed, stenotrophomonas, Raoultella and Ca ndida. Biotic provided as per ID specialist recommendation. On 08 19 patient was patient was on the BiPAP patient was hypoxemic saturating 85% and showed 8 increased respiratory effort with labored breathing. CODE STATUS was recently changed to the full code. Patient subsequently was orally intubated on 08/19/ Ventilator support and pulmonary toilet provided. Pulmonary toilet provided patient was follow-up with a chest x-ray. And ABG. Patient was unable to be weaned from the oxygen patient subsequently undergone tracheostomy placement on 1210. Tracheostomy care provided patient with DVT prophylaxis provided. Strict aspiration precaution maintain G-tube feeding continued. 1222 patient undergone EGD with a PEG placement. Patient tolerated procedure well. Tube site care provided head of bed was elevated at all time. Tube feeding started later was a tube feeding formula goal rate as per the dietitian recommendation. Was able to tolerate tube feeding. Strict aspiration precaution maintained. Hemodynamic status was closely monitored. Patient initially was diuresed with close monitoring of volumes and cardiorenal parameters when patient became hypotensive with diuresis stopped. proBNP trended up. Pressors dopamine and Levophed titrated to keep mean arterial blood pressure above. Echocardiogram demonstrated preserved ejection fraction. Recommended no evidence of WMA. Right ventricular systolic pressure of 50 consistent with a moderate pulmonary pretension. Patient condition continued to be patient remained critical and guarded. Family was made aware of acute on chronic aspiration 24 hours patient subsequently was made DNR/DNI in 09 20 patient was pronounced 1414 09/20/2020. Because of this cardiopulmonary arrest. Patient developed acute renal failure. Renal parameters electrolytes are closely monitor electrolytes corrected as needed nephrotoxic's were avoided patient continue. First troponin is negative second troponin minimally elevated 0.057 Patient presented on admission with a multiply pressure injury. Wound care provided per surgeon recommendation. Overall prognosis was extremely poor was not mobile and only loosely to the room for improvement. Consultants recommended withdrawal of care. Patient was made DNR DNR on 09 20. FINAL DIAGNOSES: 1 acute hypoxemic respiratory failure requiring intubation Failure to wean status post tracheostomy Sepsis Probably aspiration pneumonia Fungal UTI Dysphagia status post EGD and PEG placement Hypotension, shock Chronic CO2 retention Paroxysmal atrial fibrillation with rapid ventricular response Acute myocardial ischemia with elevated troponin Complicated UTI with indwelling catheter Healthcare acquired pneumonia Severe protein calorie malnutrition respiratory failure with hypoxia and hypercapnia grajeda Acute renal failure Chronic encephalopathy Recurrent fall Recurrent UTI Dementia DISCHARGE MEDICATIONS: See Medication Reconciliation list. DISCHARGE INSTRUCTIONS: [] I have been assigned to dictate discharge summary for this account. I was not involved in the patient's management. Rolanda Weber NP Sep 21, 2020 14:39
--- NOTE | 2020-09-23 02:17 | Cardiology Report ---
APPROVED REPORT EKG Measurement Heart [id number] <Conclusion> Sinus rhythm with premature atrial complexes Low voltage QRS Nonspecific T wave abnormality Abnormal ECG
--- NOTE | 2020-09-23 02:30 | Cardiology Report ---
APPROVED REPORT EKG Measurement Heart [id number] <Conclusion> Atrial fibrillation with rapid ventricular response Rightward axis Low voltage QRS Nonspecific T wave abnormality Abnormal ECG
== END 2020-09-20 15:45 | disposition expired | DRG 4 ==
LOC: EDBD 21:22 → EMR 21:30 → EDBEDREQ 21:35 → 2W 21:54 → EDBEDREQ 22:15 → 2W 23:29 → ICU 08-19 13:08 → 2W 08-29 18:54 → ICU 09-19 18:24 → 2W 09-19 18:24 → ICU 09-19 19:49 → 2W 09-20 12:36
PROC: 5A1955Z Respiratory Ventilation, Greater than 96 Consecutive Hours (ICD-10-PCS; principal; 2020-08-19)
PROC: 0BH17EZ Insertion of Endotracheal Airway into Trachea, Via Natural or Artificial Opening (ICD-10-PCS; principal; 2020-08-19)
PROC: 0B110F4 Bypass Trachea to Cutaneous with Tracheostomy Device, Open Approach (ICD-10-PCS; 2020-08-27)
PROC: 0DH68UZ Insertion of Feeding Device into Stomach, Via Natural or Artificial Opening Endoscopic (ICD-10-PCS; 2020-09-08)
PROC: B548ZZA Ultrasonography of Superior Vena Cava, Guidance (ICD-10-PCS; 2020-09-17)
PROC: 02HV33Z Insertion of Infusion Device into Superior Vena Cava, Percutaneous Approach (ICD-10-PCS; 2020-09-17)
DX: A41.9 Sepsis, unspecified organism (principal); R65.21 Severe sepsis with septic shock; J96.01 Acute respiratory failure with hypoxia; E43 Unspecified severe protein-calorie malnutrition; J69.0 Pneumonitis due to inhalation of food and vomit; I50.33 Acute on chronic diastolic (congestive) heart failure; J96.02 Acute respiratory failure with hypercapnia; N39.0 Urinary tract infection, site not specified; E87.1 Hypo-osmolality and hyponatremia; Z68.1 Body mass index [BMI] 19.9 or less, adult; B49 Unspecified mycosis; Z99.11 Dependence on respirator [ventilator] status; I82.612 Acute embolism and thrombosis of superficial veins of left upper extremity; N17.9 Acute kidney failure, unspecified; G93.40 Encephalopathy, unspecified; I51.3 Intracardiac thrombosis, not elsewhere classified; I10 Essential (primary) hypertension; G20 Parkinson's disease; F02.80 Dementia in other diseases classified elsewhere, unspecified severity, without behavioral disturbance, psychotic disturbance, mood disturbance, and anxiety; N40.1 Benign prostatic hyperplasia with lower urinary tract symptoms; R33.8 Other retention of urine; E86.1 Hypovolemia; R13.10 Dysphagia, unspecified; E87.5 Hyperkalemia; K29.40 Chronic atrophic gastritis without bleeding; I48.0 Paroxysmal atrial fibrillation; I11.0 Hypertensive heart disease with heart failure
CPT/HCPCS: 36415; 36569; 70450; 71045; 74018; 74230; 76700; 76770; 76937; 80048; 80053; 80202; 81003; 82550; 82553; 82728; 82803; 82962; 83605; 83615; 83690; 83735; 83880; 84100; 84443; 84484; 85007; 85025; 85379; 85610; 85730; 86140; 86710; 86850; 86900; 86901; 86920; 87040; 87070; 87081; 87086; 87181; 87205; 87324; 93005; 93306; 93970; 94002; 94003; 94150; 94640; 94660; 96365; 96367; 99291; J2370; J2765; J7030; J7620; J8499; U0002